=== PATIENT | male | born 1945 | race Caucasian/White ===

== ENCOUNTER → 2017-09-02 09:19 | Outpatient (CLI) | payer MEDICARE, SELFPAY ==
[2017-09-02 12:00] LABS: Absolute Lymphocyte Count 1.55 X10^3/ul (0.83-4.51); Absolute Neutrophil Count 2.9 X10^3/uL (2.0-7.7); Basophil# 0.03 X10^3/uL; Basophil% 0.6 % (0-1); Eosinophil# 0.17 X10^3/uL; Eosinophils% 3.4 % (0-5); Hematocrit 47.9 % (40-54); Hemoglobin 16.3 g/dl (13.0-16.5); Lymphocyte # 1.55 X10^3/ul (4.0); Lymphocyte % 30.9 % (19-41); Mean Corpuscular Hgb 32.3 pg (27.0-32.0); Mean Corpuscular Volume 94.9 fL (80-94); Monocyte# 0.41 X10^3/uL; Monocyte% 8.2 % (0-10); Neutrophil # 2.85 X10^3/uL (2.7-7.7); Neutrophil % 56.9 % (47-70); Platelet Count 227 K/mm3 (150-450); RBC Distribution Width CV 12.6 % (11.6-14.6); RBC Distribution Width SD 42.8 fl (35.1-43.9); Red Blood Count 5.05 M/mm3 (4.6-6.2)
[2017-09-02 12:05] LABS: POSITIVE COUNT NO; POSITIVE DIFFERENTIAL NO; POSITIVE MORPHOLOGY NO
[2017-09-02 12:21] LABS: ALB/GLOB Ratio 1.1 RATIO (0.9-2.4); AST(SGOT) 28 U/L (15-37); Alanine Aminotransfer ALT/SGPT 42 U/L (16-61); Albumin, Serum 3.8 g/dL (3.2-5.0); Alkaline Phosphatase 92 U/L (45-117); Anion Gap 6 (5-15); BUN 14 mg/dL (7-18); BUN/Creat Ratio 14.3 RATIO (10-20); Calcium,Total 8.7 mg/dL (8.5-10.1); Chloride 104 mmol/L (98-107); Cholesterol 142 mg/dL (200); Creatinine, Serum 0.98 mg/dL (0.70-1.30); EST Glomerular Filtration Rate 80 mL/min (>60); Est Glom Filt Rate - Afr Amer 96 mL/min (>60); Globulin 3.6 g/dL (2.2-4.2); Glucose 96 mg/dL (74-106); High Density Lipoprotein 32 mg/dL; Protein, Total 7.4 g/dL (6.4-8.2); Sodium Level 140 mmol/L (136-145); Triglycerides 129 mg/dL; Very Low Density Lipoprotein 26 mg/dL (5-40)
== END ==
PROVIDERS: Family Provider Family Medicine; PCP Family Medicine; Visit Provider Family Medicine
DX: Z00.00 Encounter for general adult medical examination without abnormal findings (principal); E78.5 Hyperlipidemia, unspecified; R53.83 Other fatigue; Z12.5 Encounter for screening for malignant neoplasm of prostate
CPT/HCPCS: 36415; 80053; 80061; 85025

== ENCOUNTER → 2020-09-18 09:46 | Outpatient (CLI) | payer MEDICARE, SELFPAY ==
--- NOTE | 2020-09-18 10:15 | RAD_ITS ---
INDICATION: Posterior scleritis, left eye EXAMINATION/TECHNIQUE: X-RAY - XR Chest 2 Views COMPARISON: None. FINDINGS: The lungs are clear. The cardiomediastinal silhouette is unremarkable. No pleural effusion or pneumothorax. No acute osseous abnormalities. RAD/Chest PA and Lateral IMPRESSION: No acute radiographic abnormalities. Electronically Signed: Christian Benitez MD at 21:09 EDT Tel , Service support ,
[2020-09-18 11:02] LABS: Erythrocyte Sedimentation Rate 11 mm/hr (0-20)
[2020-09-18 11:17] LABS: CRP < 2.90 mg/L (0.0-3.0); Rheumatoid Factor < 10.0 IU/mL (<15)
[2020-09-19 20:07] LABS: Anti-Centromere B Ab <0.2 AI (0.0-0.9); Anti-Chromatin <0.2 AI (0.0-0.9); Anti-Jo <0.2 AI (0.0-0.9); Anti-Scleroderma-70 AB <0.2 AI (0.0-0.9); Anti-ribosomal P Antibodies <0.2 AI (0.0-0.9); Cytoplasmic Ab (C-ANCA) <1:20 titer (Neg:<1:20); RNP Ab 0.3 AI (0.0-0.9); SJOGREN'S Anti-SS-A test < 0.2 AI (0.0-0.9); SJOGREN'S Anti-SS-B test < 0.2 AI (0.0-0.9); Smith Ab <0.2 AI (0.0-0.9); Smith/RNP Ab <0.2 AI (0.0-0.9)
[2020-09-20 12:36] LABS: Angiotensin Convert Enzyme 32 U/L (14-82); Perinuclear Ab (P-ANCA) <1:20 titer (Neg:<1:20)
[2020-09-20 12:37] LABS: Anti-dsDNA Ab <1 IU/mL (0-9)
== END ==
PROVIDERS: PCP Family Medicine; Referring Provider Ophthalmology; Visit Provider Ophthalmology
DX: H15.03 Posterior scleritis (principal)
CPT/HCPCS: 36415; 71046; 82164; 85652; 86038; 86140; 86225; 86235; 86256; 86431

== ENCOUNTER → 2024-12-02 | Outpatient (CLI) | payer MEDICARE, SELFPAY ==
[2024-12-02 15:59] LABS: Hematocrit 38.9 % (40-54); Hemoglobin 12.4 g/dL (13.0-16.5); Immature Granulocytes Count 0.020 X10^3/uL (0.0-0.0); Mean Corp Hgb Conc 31.9 g/dL (32-36); Mean Corpuscular Volume 89.6 fL (80-94); Mean Platelet Vol. 10.4 fl (6.2-12.0); NRBC Flagged by Analyzer 0 % (0-5); Platelet Count 391 K/mm3 (150-450); RBC Distribution Width CV 13.8 % (11.6-14.6); RBC Distribution Width SD 45.2 fl (35.1-43.9); Red Blood Count 4.34 M/mm3 (4.6-6.2); White Blood Count 7.8 K/mm3 (4.4-11.0)
[2024-12-02 16:20] LABS: AST(SGOT) 20 U/L (<=37); Alanine Aminotransfer ALT/SGPT 15 U/L (<=46); Albumin, Serum 4.1 g/dL (3.4-4.8); Alkaline Phosphatase 131 U/L (40-129); Anion Gap 16 (5-15); BUN 29 mg/dL (4-19); BUN/Creat Ratio 18.3 RATIO (10-20); CRP 87.20 mg/L (0.0-3.0); Calcium,Total 10.7 mg/dL (7.6-11.0); Carbon Dioxide 24.4 mmol/L (21.0-32.0); Chloride 98 mmol/L (98-108); Globulin 4.3 g/dL (2.2-4.2); Glucose 97 mg/dL (70-99); Potassium 4.7 mmol/L (3.3-5.1)
[2024-12-02 16:25] LABS: PSA,Total - Annual Screen 3.39 ng/mL (0.02-4.00)
[2024-12-02 17:11] LABS: Color, Urine Straw (Yellow); Glucose, Dipstick Normal (Normal); Ketone-Dipstick 5 mg/dl (Negative); Leukocyte Esterase-Dipstick Negative /ul (Negative); Nitrite-Dipstick Negative (Negative); Occult Blood-Urine Negative /ul (Negative); Protein-Dipstick 15 mg/dl (Negative); Specific Gravity, Urine 1.020 (1.002-1.030); Urine Bilirubin Dipstick Negative (Negative)
[2024-12-09 15:08] LABS: Albumin 3.5 g/dL (2.9-4.4); Gamma Globulin 1.5 g/dL (0.4-1.8); Immunoglobulin A 275 mg/dL (61-437); Immunoglobulin G 1476 mg/dL (603-1613); Immunoglobulin M 70 mg/dL (15-143); PROEL- TOTAL PROTEIN 7.8 g/dL (6.0-8.5)
== END | disposition home or self-care (01) ==
LOC: BFHLAB 11:38
PROVIDERS: PCP Family Medicine; Visit Provider Family Medicine
DX: H57.89 Other specified disorders of eye and adnexa (principal); N18.32 Chronic kidney disease, stage 3b; Z12.5 Encounter for screening for malignant neoplasm of prostate; R63.4 Abnormal weight loss; R10.9 Unspecified abdominal pain; R80.9 Proteinuria, unspecified; R77.1 Abnormality of globulin
CPT/HCPCS: 36415; 80053; 81002; 82784; 84153; 84165; 84443; 85025; 85652; 86140; 86334; G0103

== ENCOUNTER → 2024-12-27 | Outpatient (CLI) | payer MEDICARE, SELFPAY ==
[2024-12-27 12:20] LABS: Platelet Count 358 K/mm3 (150-450)
[2024-12-27 12:30] LABS: Prothrombin Time (Protime)PT. 14.4 SECONDS (11.7-14.9)
[2024-12-27 12:31] LABS: Partial Thromboplast Time 38.7 Seconds (24.1-36.2)
[2024-12-27 12:53] LABS: LDH 272 U/L (87-241)
--- OUTSIDE RECORDS SUMMARY | 2024-12-27 22:08 | XMS RPT_ITS | CCD ---
Author Organization [facility] Care Team Providers Care Machine [employer] Engraver Name Role Phone DR MICHELET HERNANDEZ DO Primary Care Physician [phone] David JOSE, Dr. Goncalves Primary Care Provider [phone] David JOSE, Dr. Goncalves Attending Provider Leslie Ashley Attending Unavailable David, Michelet Referring Unavailable David, Michelet Primary Care Unavailable David, Michelet Attending Unavailable David, Michelet Primary Care Unavailable David, Michelet Attending Unavailable David, Michelet Primary Care Unavailable DAVID JOSE, DR MICHELET Parker Primary Care Unavailab walter GORE MD, DR FLORES Attending Unavailab le DAVID JOSE, DR MICHELET Parker Attending Unavailab walter HERNANDEZ DO, DR MICHELET Parker Primary Care Unavailab walter Hernandez DO, Dr. Goncalves Referring Provider Dr. Jason Wen DO Attending Provider [phone] Behzad JOSE, Dr. Gomez Referring Provider [phone] Medications Current Medications Medication Drug Class(es) Dates Sig (Normalized) Sig (Original) Vit A,C,Q-P8-Ltqy-Lut-Mi n-Glut 1000 unit-300mg -100 unit-2 mg tablet (1 source) Start: 12-27-2024 Vit A,C,Z-D8-Nkdw-Lut-M in-Glut 1000 unit-300mg -100 unit-2 mg tablet Active {tbl} PO December 27, 2024 12:00am Completed/Discontinued Medications Medication Drug Class(es) Dates Sig (Normalized) Sig (Original) Chlorhexidine Gluconate (Peridex) 0.12 % mouthwash (2 sources) Start: 06-05-2024 End: 12-27-2024 Chlorhexidine Gluconate (Peridex) 0.12 % mouthwash Discontinued 15 mL BUCCAL TWICE A DAY 300 0 June 05, 2024 1:00am December 27, 2024 10:39am Start: 06-05-2024 Chlorhexidine Gluconate (Peridex) 0.12 % mouthwash Active 15 mL BUCCAL TWICE A DAY 300 0 June 05, 2024 1:00am Problems Problem Classification Problem Date Documented Da te Episodic/Chronic Chronic kidney disease (1 source) Chronic kidney disease; Translations: [Chronic kidney disease, stage 3b] Onset: 12-04-2024 Genitourinary symptoms and ill-defined conditions (1 source) Proteinuria, unspecified; Translations: [Proteinuria, unspecified] Onset: 12-04-2024 Episodic Other eye disorders (1 source) Other specified disorders of eye and adnexa; Translations: [Other specified disorders of eye and adnexa] Onset: 12-09-2024 Episodic Other hematologic conditions (1 source) Abnormality of globulin; Translations: [Abnormality of globulin] Onset: 12-04-2024 Episodic Other lower respiratory disease (3 sources) Lung mass; Translations: [Other nonspecific abnormal finding of lung field] Episodic Other upper respiratory infections (5 sources) Viral pharyngitis; Translations: [Acute pharyngitis due to other specified organisms] Onset: 06-05-2024 06-05-2024 Episodic Pleurisy; pneumothorax; pulmonary collapse (2 sources) Pleural effusion; Translations: [Pleural effusion, not elsewhere classified] 12-27-2024 Episodic Retinal detachments; defects; vascular occlusion; and retinopathy (1 source) Degenerative disorder of macula ; Translations: [Unspecified macular degeneration] 12-27-2024 Chronic Syncope (1 source) Syncope and collapse; Translations: [Syncope and collapse] Onset: 07-23-2024 Episodic Unclassified (2 sources) R91.8 - Other nonspecific abnormal finding of lung field Results Test Name Value Interpretation Reference Range Facility CT THORAX W/ CONTRASTon 12-01 CT THORAX W/ CONTRAST ORIGINAL EXAMINATION: CT OF THE CHEST WITH CONTRAST 12/21/2024 2:29 pm TECHNIQUE: CT of the chest was performed with the administration of intravenous contrast. Multiplanar reformatted images are provided for review. Automated exposure control, iterative reconstruction, and/or weight based adjustment of the mA/kV was utilized to reduce the radiation dose to as low as reasonably achievable. COMPARISON: None. HISTORY: ORDERING SYSTEM PROVIDED HISTORY: Reason for Exam: ABNORMAL WEIGHT LOSS FINDINGS: Mild degenerative changes are noted in the spine. No other osseous abnormality identified. Moderate left pleural effusion is evident, with areas of pleural thickening at the posterior aspect of the lower lobes. Additionally, there is very prominent abnormal pre-vascular mediastinal soft tissue, extending to the adjacent medial and anterior left pleura. These findings are very masslike and nodular with areas of central low density which may be cystic or necrotic. There is presumably involvement of the medial aspect of the left anterior chest wall as well, with disease abutting several ribs. The bulk of the abnormality is identified on the left, between the main and left pulmonary arteries. This area of tumor is on the order of 6.3 x 4.5 cm in size. The more central or rightward pre-vascular tumor measures up to 3.8 cm. Areas of tumor are applied to the left superior pulmonary vein and there is some infiltrative tumor extending to the region of the upper left hilum. No other unusual mediastinal soft tissue seen. Lateral right lower lobe 5 mm pulmonary nodule noted. No pulmonary infiltrates are otherwise identified. No additional contributory finding peer IMPRESSION: 1. Abnormal mediastinal and pleural soft tissue as discussed above, most compatible with malignancy. 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 2. Moderate left pleural effusion. 3. Lateral right lower lobe 5 mm pulmonary nodule. This is indeterminate. IMPORTANT: PHYSICIAN, ATTEND TO THIS REPORT RENAE!!! Interpreted by: Elia Lemus MD Preliminary Report By: Elia Lemus MD Electronically signed By Elia Lemus MD Dictated Date: 12/23/2024 8:38:28 AM Prelim Date: 12/23/2024 8:44:38 AM Sign Date: 12/23/2024 8:44:38 AM [facility]ing [facility]/CONTRAST on 12-22-2024 CT ABDOMEN/PELVIS W/CONTRAST ORIGINAL EXAMINATION: CT OF THE ABDOMEN AND PELVIS WITH CONTRAST12/21/2024 2:29 pm TECHNIQUE: CT of the abdomen and pelvis was performed with the administration of intravenous contrast. Multiplanar reformatted images are provided for review. Automated exposure control, iterative reconstruction, and/or weight based adjustment of the mA/kV was utilized to reduce the radiation dose to as low as reasonably achievable. COMPARISON: None HISTORY: ORDERING SYSTEM PROVIDED HISTORY: Reason for Exam: ABNORMAL WEIGHT LOSS FINDINGS: Bones: No acute bony abnormality. Degenerative changes of the spine. Lower Thorax: CT of the chest from the same day is dictated separately. Solid Organs: The liver, spleen, pancreas, gallbladder, and adrenal glands are unremarkable. Collecting System: Delayed right nephrogram. Mild right pelvicaliectasis and dilation of the right ureter secondary to soft tissue lesion in the right pelvis. No urolithiasis is identified. Pelvis: The bladder is unremarkable. Mildly enlarged prostate with dystrophic calcifications. There is a 5.0 x 3.5 cm irregular soft tissue mass anterior to the inferior right piriformis muscle (4; 83). This constricts the distal right ureter with mild surrounding haziness and fat stranding. Mild hyperdense appearance of the distal right ureter is also visualized. GI Tract: The stomach and small bowel are unremarkable. Scattered colonic diverticulosis with no evidence of diverticulitis. The appendix is unremarkable. Vasculature: The vena cava and portal system demonstrates no acute abnormality. Mildly atherosclerotic nonaneurysmal aorta. Lymph Nodes, Mesentery, and Peritoneum: No definite pathologically enlarged lymph nodes are identified. There is a 1.9 cm soft tissue deposit with calcifications in the right mesentery (4; 61). Additional small calcifications in the central mesentery. Additional soft tissue deposits anterior to the spleen and along the omentum. No free intraperitoneal fluid or gas is identified. Superficial Soft Tissues: Small fat containing right inguinal hernia. IMPRESSION: Delayed right nephrogram with mild hydroureteronephrosis due to a 5.0 cm soft tissue mass anterior to the right piriformis muscle causing mass effect/constriction of the distal right ureter. This is concerning for malignancy. Hyperdense appearance of the right distal ureter is indeterminate. Extension of the mass into the ureter is not excluded. Mesenteric and omental soft tissue deposits are compatible with peritoneal carcinomatosis. Diverticulosis with no evidence of diverticulitis. I have personally reviewed the images of this examination and agree with the resident's findings and interpretation. Interpreted by: Elia Lemus MD Preliminary Report By: Amanda Espana Electronically signed By Elia Lemus MD Dictated Date: 12/22/2024 8:28:13 AM Prelim Date: 12/22/2024 10:03:43 AM Sign Date: 12/22/2024 10:03:43 AM Ordering Provider: MICHELET HERNANDEZ [facility] RADHA + Protein Tesha Nicolas 12-09-2024 Albumin [Mass/Vol] 3.5 g/dL Normal 2.9-4.4 [facility] Comment on above: Order Comment: ADD ON PLEASE-SWRIGHT N Performed By: #### L 500.4050, L501.9910, L400.2010, L3100.3425, L501.9520, L100.0100, L101.9900, L501.6710 #### [facility] [address] [place], [place], [id number] [phone] Albumin/Globulin [Mass ratio] 0.9 {ratio} Normal 0.7-1.7 [facility] Comment on above: Order Comment: ADD ON PLEASE-SWRIGHT N Performed By: #### L 500.4050, L501.9910, L4, L3100.3425, L501.9520, L100.0100, L101.9900, L501.6710 #### [facility] [address] [place], [place], [id number] [phone] [id number] 0.4 g/dL Normal 0.0-0.4 [facility] Comment on above: Order Comment: ADD ON PLEASE-SWRIGHT N Performed By: #### L 500.4050, L501.9910, L4.2010, L3100.3425, L501.9520, L100.0100, L101.9900, L501.6710 #### [facility] [address] [place], [place], [id number] [phone] [id number] 1.2 g/dL High 0.4-1.0 [facility] Comment on above: Order Comment: ADD ON PLEASE-SWRIGHT N Performed By: #### L 500.4050, L501.9910, L4.2010, L3100.3425, L501.9520, L100.0100, L101.9900, L501.6710 #### [facility] [address] [place], [address] BETA GLOBULIN 1.2 g/dL Normal 0.7-1.3 [facility] Comment on above: Order Comment: ADD ON PLEASE-SWRIGHT N Performed By: #### L 500.4050, L501.9910, L400.2010, L3100.3425, L501.9520, L100.0100, L101.9900, L501.6710 #### [facility] [address] [place], [address] GAMMA GLOBULIN 1.5 g/dL Normal 0.4-1.8 [facility] Comment on above: Order Comment: ADD ON PLEASE-SWRIGHT N Performed By: #### L 500.4050, L501.9910, L4.2010, L3100.3425, L501.9520, L100.0100, L101.9900, L501.6710 #### [facility] [address] [place], [address] Globulin (S) [Mass/Vol] 4.3 g/dL Abnormal 2.2-3.9 [facility] Comment on above: Order Comment: ADD ON PLEASE-SWRIGHT N Performed By: #### L 500.4050, L501.9910, L4.2010, L3100.3425, L501.9520, L100.0100, L101.9900, L501.6710 #### [facility] [address] [place], [address] RADHA RESULT,S Comment Abnormal . [facility] Comment on above: Order Comment: ADD ON PLEASE-SWRIGHT N Result Comment: Immu nofixation shows IgG monoclonal protein with lambda light chain specificity. Performed By: #### L 500.4050, L501.9910, L400.2010, L3100.3425, L501.9520, L100.0100, L101.9900, L501.6710 #### [facility] [address] [place], [address] IMMUNOGLOB A QN 275 mg/dL Normal 61-437 [facility] Comment on above: Order Comment: ADD ON PLEASE-SWRIGHT N Performed By: #### L 500.4050, L501.9910, L400.2010, L3100.3425, L501.9520, L100.0100, L101.9900, L501.6710 #### [facility] [address] [place], [address] IMMUNOGLOB G QN 1476 mg/dL Normal 603-1613 [facility] Comment on above: Order Comment: ADD ON PLEASE-SWRIGHT N Performed By: #### L 500.4050, L501.9910, L400.2010, L3100.3425, L501.9520, L100.0100, L101.9900, L501.6710 #### [facility] [address] [place], [address] IMMUNOGLOB M QN 70 mg/dL Normal 15-143 [facility] Comment on above: Order Comment: ADD ON PLEASE-SWRIGHT N Performed By: #### L 500.4050, L501.9910, L400.2010, L3100.3425, L501.9520, L100.0100, L101.9900, L501.6710 #### [facility] [address] [place], [address] M-Kvng 0.6 g/dL Abnormal Not Observed [facility] Comment on above: Order Comment: ADD ON PLEASE-SWRIGHT N Performed By: #### L 500.4050, L501.9910, L400.2010, L3100.3425, L501.9520, L100.0100, L101.9900, L501.6710 #### [facility] [address] [place], [address] NOTE: Comment Normal . [facility] Comment on above: Order Comment: ADD ON PLEASE-SWRIGHT N Result Comment: Prot ein electrophoresis scan will follow via computer, mail, or heel seat pounder delivery. Performed at: [address] [id number] [employer]: Torito Green PhD, Phone: [phone] Performed By: #### L 500.4050, L501.9910, L400.2010, L3100.3425, L501.9520, L100.0100, L101.9900, L501.6710 #### [facility] [address] [place], [address] Protein [Mass/Vol] 7.8 g/dL Normal 6.0-8.5 [facility] Comment on above: Order Comment: ADD ON PLEASE-NITINHT N Performed By: #### L 500.4050, L501.9910, L400.2010, L3100.3425, L501.9520, L100.0100, L101.9900, L501.6710 #### [facility] [address] [place], [address] Absolute lymphocyte countOrd ered By: Michelet Hernandez on 12-02-2024 Lymphocytes Auto (Unsp spec) [#/Vol] 0.84 10*3/uL 0.83-4.51 [facility] Absolute neutrophil countOrd ered By: Michelet Hernandez on 12-02-2024 Neutrophils (Bld) [#/Vol] 6.0 10*3/uL 2.0-7.7 [facility] Albumin Elph [Mass/Vol]Order ed By: Michelet Hernandez on 12-02-2024 Albumin [Mass/Vol] 3.5 g/dL 2.9-4.4 [facility] Anion gap in Serum or Plasma Ordered By: Michelet Hernandez on 12-02-2024 Anion gap [Moles/Vol] 16 mmol/L High 5-15 [facility] Automated lymphocyte count a s percentage of total leukocytesOrdered By: Michelet Hernandez on 12-02-2024 Lymphocytes/100 WBC Auto (Unsp spec) 10.8 % Low 19-41 [facility] BUN/creatinine ratioOrdered By: Michelet Hernandez on 12-02-2024 Urea nitrogen/Creatinine [Mass ratio] 18.3 mg/mg 10-20 [facility] Basophil percentageOrdered B y: Michelet Hernandez on 12-02-2024 Basophils/100 WBC (Bld) 0.6 % 0-1 [facility] Bilirubin Test strip Ql (U)O rdered By: Michelet Hernandez on 12-02-2024 Bilirubin Ql (U) Negative Negative [facility] Bilirubin, totalOrdered By: Michelet Hernandez on 12-02-2024 Bilirubin [Mass/Vol] 0.43 mg/dL 0.00-1.30 [facility] CBC W/Diff, Automatedon Absolute Lymph 0.84 X10 3/uL Normal 0.83-4.51 [facility] Comment on above: Performed By: #### L 500.4050, L501.9910, L4.2010, L3100.3425, L501.9520, L100.0100, L101.9900, L501.6710 #### [facility] [address] [place], [address] Absolute Neut 6.0 X10 3/uL Normal 2.0-7.7 [facility] Comment on above: Performed By: #### L 500.4050, L501.9910, L4.2010, L3100.3425, L501.9520, L100.0100, L101.9900, L501.6710 #### [facility] [address] [place], [address] Basophils/100 WBC (Bld) 0.6 % Normal 0-1 [facility] Comment on above: Performed By: #### L 500.4050, L501.9910, L4.2010, L3100.3425, L501.9520, L100.0100, L101.9900, L501.6710 #### [facility] [address] [place], [address] Eosinophils/100 WBC (Bld) 1.3 % Normal 0-5 [facility] Comment on above: Performed By: #### L 500.4050, L501.9910, L400.2010, L3100.3425, L501.9520, L100.0100, L101.9900, L501.6710 #### [facility] [address] [place], [address] Erythrocyte distribution width (RBC) [Ratio] 13.8 % Normal 11.6-14.6 [facility] Comment on above: Performed By: #### L 500.4050, L501.9910, L400.2010, L3100.3425, L501.9520, L100.0100, L101.9900, L501.6710 #### [facility] [address] [facility] [place], [address] Hematocrit (Bld) [Volume fraction] 38.9 % Low 40-54 [facility] Comment on above: Performed By: #### L 500.4050, L501.9910, L4.2010, L3100.3425, L501.9520, L100.0100, L101.9900, L501.6710 #### [facility] [address] [place], [address] Hemoglobin (Bld) [Mass/Vol] 12.4 g/dL Low 13.0-16.5 [facility] Comment on above: Performed By: #### L 500.4050, L501.9910, L4.2010, L3100.3425, L501.9520, L100.0100, L101.9900, L501.6710 #### [facility] [address] [facility] [place], [address] IG% 0.300 Normal 0.0-0.9 [facility] Comment on above: Result Comment: IG% - Immature Granulocytes (promyelocytes, myelocytes and metamyelocytes) > 1% indicates that a LEFT SHIFT is Present. Performed By: #### L 500.4050, L501.9910, L400.2010, L3100.3425, L501.9520, L100.0100, L101.9900, L501.6710 #### [facility] [address] [place], [address] Lymphocytes/100 WBC (Bld) 10.8 % Low 19-41 [facility] Comment on above: Performed By: #### L 500.4050, L501.9910, L400.2010, L3100.3425, L501.9520, L100.0100, L101.9900, L501.6710 #### [facility] [address] [place], [address] MCH (RBC) [Entitic mass] 28.6 pg Normal 27.0-32.0 [facility] Comment on above: Performed By: #### L 500.4050, L501.9910, L400.2010, L3100.3425, L501.9520, L100.0100, L101.9900, L501.6710 #### [facility] [address] [place], [address] MCHC (RBC) [Mass/Vol] 31.9 g/dL Low 32-36 [facility] Comment on above: Performed By: #### L 500.4050, L501.9910, L4.2010, L3100.3425, L501.9520, L100.0100, L101.9900, L501.6710 #### [facility] [address] [place], [address] MCV (RBC) [Entitic vol] 89.6 fL Normal 80-94 [facility] Comment on above: Performed By: #### L 500.4050, L501.9910, L4.2010, L3100.3425, L501.9520, L100.0100, L101.9900, L501.6710 #### [facility] [address] [place], [address] Monocytes/100 WBC (Bld) 10.0 % Normal 0-10 [facility] Comment on above: Performed By: #### L 500.4050, L501.9910, L400.2010, L3100.3425, L501.9520, L100.0100, L101.9900, L501.6710 #### [facility] [address] [place], [address] Neutrophils/100 WBC (Bld) 77.0 % High 47-70 [facility] Comment on above: Performed By: #### L 500.4050, L501.9910, L400.2010, L3100.3425, L501.9520, L100.0100, L101.9900, L501.6710 #### [facility] [address] [place], [address] Nucleated RBC (Bld) [#/Vol] 0 10*3/uL Normal 0-5 [facility] Comment on above: Performed By: #### L 500.4050, L501.9910, L400.2010, L3100.3425, L501.9520, L100.0100, L101.9900, L501.6710 #### [facility] [address] [place], [address] Platelet mean volume (Bld) [Entitic vol] 10.4 fL Normal 6.2-12.0 [facility] Comment on above: Performed By: #### L 500.4050, L501.9910, L400.2010, L3100.3425, L501.9520, L100.0100, L101.9900, L501.6710 #### [facility] [address] [place], [address] Platelets (Bld) [#/Vol] 391 10*3/uL Normal 150-450 [facility] Comment on above: Performed By: #### L 500.4050, L501.9910, L400.2010, L3100.3425, L501.9520, L100.0100, L101.9900, L501.6710 #### [facility] [address] [place], [address] RBC (Bld) [#/Vol] 4.34 10*6/uL Low 4.6-6.2 [facility] Comment on above: Performed By: #### L 500.4050, L501.9910, L4.2010, L3100.3425, L501.9520, L100.0100, L101.9900, L501.6710 #### [facility] [address] [place], [address] RDW SD 45.2 fl High 35.1-43.9 [facility] Comment on above: Performed By: #### L 500.4050, L501.9910, L4.2010, L3100.3425, L501.9520, L100.0100, L101.9900, L501.6710 #### [facility] [address] [place], [address] WBC (Bld) [#/Vol] 7.8 10*3/uL Normal 4.4-11.0 [facility] Comment on above: Performed By: #### L 500.4050, L501.9910, L4, L3100.3425, L501.9520, L100.0100, L101.9900, L501.6710 #### [facility] [address] [place], [address] CRPon 12-02-2024 C-REACTIVE PROT 87.20 mg/L High 0.0-3.0 [facility] Comment on above: Performed By: #### L 500.4050, L501.9910, L4, L3100.3425, L501.9520, L100.0100, L101.9900, L501.6710 #### [facility] [address] [place], [address] Carbon dioxide, total [Moles /volume] in Central venous bloodOrdered By: Michelet Hernandez on 12-02-2024 CO2 [Moles/Vol] 24.4 mmol/L 21.0-32.0 [facility] Chloride assayOrdered By: Carin Hernandez on 12-02-2024 Chloride [Moles/Vol] 98 mmol/L 98-108 [facility] Comprehensive Metabolic Prof ilon 12-02-2024 Albumin [Mass/Vol] 4.1 g/dL Normal 3.4-4.8 [facility] Comment on above: Performed By: #### L 500.4050, L501.9910, L4.2010, L3100.3425, L501.9520, L100.0100, L101.9900, L501.6710 #### [facility] [address] [place], [address] Albumin/Globulin [Mass ratio] 1.0 {ratio} Normal 0.9-2.4 [facility] Comment on above: Performed By: #### L 500.4050, L501.9910, L400.2010, L3100.3425, L501.9520, L100.0100, L101.9900, L501.6710 #### [facility] [address] [place], [address] ALK PHOS 131 U/L High 40-129 [facility] Comment on above: Performed By: #### L 500.4050, L501.9910, L400.2010, L3100.3425, L501.9520, L100.0100, L101.9900, L501.6710 #### [facility] [address] [place], [address] ALT [Catalytic activity/Vol] 15 U/L Normal <=46 [facility] Comment on above: Performed By: #### L 500.4050, L501.9910, L400.2010, L3100.3425, L501.9520, L100.0100, L101.9900, L501.6710 #### [facility] [address] [place], [address] AST [Catalytic activity/Vol] 20 U/L Normal <=37 [facility] Comment on above: Performed By: #### L 500.4050, L501.9910, L400.2010, L3100.3425, L501.9520, L100.0100, L101.9900, L501.6710 #### [facility] [address] [place], [address] Bilirubin [Mass/Vol] 0.43 mg/dL Normal 0.00-1.30 [facility] Comment on above: Performed By: #### L 500.4050, L501.9910, L4.2010, L3100.3425, L501.9520, L100.0100, L101.9900, L501.6710 #### [facility] [address] [place], [address] BUN/CRE 18.3 RATIO Normal 10-20 [facility] Comment on above: Performed By: #### L 500.4050, L501.9910, L4.2010, L3100.3425, L501.9520, L100.0100, L101.9900, L501.6710 #### [facility] [address] [place], [address] Calcium [Mass/Vol] 10.7 mg/dL Normal 7.6-11.0 [facility] Comment on above: Performed By: #### L 500.4050, L501.9910, L4, L3100.3425, L501.9520, L100.0100, L101.9900, L501.6710 #### [facility] [address] [place], [address] Chloride [Moles/Vol] 98 mmol/L Normal 98-108 [facility] Comment on above: Performed By: #### L 500.4050, L501.9910, L400.2010, L3100.3425, L501.9520, L100.0100, L101.9900, L501.6710 #### [facility] [address] [place], [address] CO2 [Moles/Vol] 24.4 mmol/L Normal 21.0-32.0 [facility] Comment on above: Performed By: #### L 500.4050, L501.9910, L400.2010, L3100.3425, L501.9520, L100.0100, L101.9900, L501.6710 #### [facility] [address] [place], [address] Creatinine [Mass/Vol] 1.60 mg/dL High 0.70-1.20 [facility] Comment on above: Performed By: #### L 500.4050, L501.9910, L400.2010, L3100.3425, L501.9520, L100.0100, L101.9900, L501.6710 #### [facility] [address] [place], [address] GAP 16 High 5-15 [facility] Comment on above: Performed By: #### L 500.4050, L501.9910, L400.2010, L3100.3425, L501.9520, L100.0100, L101.9900, L501.6710 #### [facility] [address] [place], [address] GFR/1.73 sq M.predicted among non-blacks MDRD (S/P/Bld) [Vol rate/Area] 43 mL/min/{1.73_m2} Low >60 [facility] Comment on above: Result Comment: mL/m in/1.73m2 CKD-EPI Creatinine Equation (2020) Performed By: #### L 500.4050, L501.9910, L400.2010, L3100.3425, L501.9520, L100.0100, L101.9900, L501.6710 #### [facility] [address] [place], [address] Globulin (S) [Mass/Vol] 4.3 g/dL High 2.2-4.[address] [facility] Comment on above: Performed By: #### L 500.4050, L501.9910, L400.2010, L3100.3425, L501.9520, L100.0100, L101.9900, L501.6710 #### [facility] [address] [place], [address] Glucose [Mass/Vol] 97 mg/dL Normal 70-99 [facility] Comment on above: Performed By: #### L 500.4050, L501.9910, L400.2010, L3100.3425, L501.9520, L100.0100, L101.9900, L501.6710 #### [facility] [address] [place], [address] Potassium [Moles/Vol] 4.7 mmol/L Normal 3.3-5.1 [facility] Comment on above: Performed By: #### L 500.4050, L501.9910, L400.2010, L3100.3425, L501.9520, L100.0100, L101.9900, L501.6710 #### [facility] [address] [place], [address] Sodium [Moles/Vol] 139 mmol/L Normal 133-145 [facility] Comment on above: Performed By: #### L 500.4050, L501.9910, L400.2010, L3100.3425, L501.9520, L100.0100, L101.9900, L501.6710 #### [facility] [address] [place], [address] T PROT 8.4 g/dL Normal 5.9-8.4 [facility] Comment on above: Performed By: #### L 500.4050, L501.9910, L400.2010, L3100.3425, L501.9520, L100.0100, L101.9900, L501.6710 #### [facility] [address] [place], [address] Urea nitrogen [Mass/Vol] 29 mg/dL High 4-19 [facility] Comment on above: Performed By: #### L 500.4050, L501.9910, L4.2010, L3100.3425, L501.9520, L100.0100, L101.9900, L501.6710 #### [facility] [address] [place], [address] Eosinophil percentageOrdered By: Michelet Hernandez on 12-02-2024 Eosinophils/100 WBC (Bld) 1.3 % 0-5 [facility] Erythrocyte Sed Rateon 12-02 SED RATE 42 mm/hr High 0-20 [facility] Comment on above: Performed By: #### L 500.4050, L501.9910, L4.2010, L3100.3425, L501.9520, L100.0100, L101.9900, L501.6710 #### [facility] [address] [place], [address] Erythrocyte distribution wid th ratioOrdered By: Michelet Hernandez on 12-02-2024 Erythrocyte distribution width (RBC) [Ratio] 13.8 % 11.6-14.6 [facility] Erythrocyte distribution wid th standard deviationOrdered By: Michelet Hernandez on 12-02-2024 Erythrocyte distribution width (RBC) [Ratio] 45.2 fl High 35.1-43.9 [facility] Erythrocyte sedimentation ra teOrdered By: Michelet Hernandez on 12-02-2024 ESR (Bld) [Velocity] 42 mm/h High 0-20 [facility] Glomerular filtration rate ( GFR) estimation/1.73 sq m using serum, plasma, or whole bOrdered By: Michelet Hernandez on 12-02-2024 GFR/1.73 sq M.predicted among non-blacks MDRD (S/P/Bld) [Vol rate/Area] 43 mL/min/{1.73_m2} Low >60 [facility] Comment on above: mL/min/1.73m2 CKD-EP I Creatinine Equation (2020) Hematocrit Auto (Bld) [Volum e fraction]Ordered By: Michelet Hernandez on 12-02-2024 Hematocrit (Bld) [Volume fraction] 38.9 % Low 40-54 [facility] Hemoglobin measurementOrdere d By: Michelet Hernandez on 12-02-2024 Hemoglobin (Bld) [Mass/Vol] 12.4 g/dL Low 13.0-16.5 [facility] Immature granulocytes/100 WB C Auto (Bld)Ordered By: Michelet Hernandez on 12-02-2024 Immature granulocytes/100 WBC (Bld) 0.300 % 0.0-0.9 [facility] Comment on above: IG% - Immature Granu locytes (promyelocytes, myelocytes and metamyelocytes) > 1% indicates that a LEFT SHIFT is Present. Interpretation of serum or p lasma protein pattern by immunofixation (narrative resultOrdered By: Michelet Hernandez on 12-02-2024 Protein Fractions Immunofixation Ko [Interp] 0.6 g/dL High Not Observed [facility] Ketones Test strip Ql (U)Ord ered By: Michelet Hernandez on 12-02-2024 Ketones Ql (U) 5 mg/dl High Negative [facility] - Chemistry and C hemistry - challengeOrdered By: Michelet Hernandez on 12-02-2024 AST [Catalytic activity/Vol] 20 U/L <38 [facility] MCV (mean corpuscular volume ) determinationOrdered By: Michelet Hernandez on 12-02-2024 MCV (RBC) [Entitic vol] 89.6 fL 80-94 [facility] Mean corpuscular hemoglobin (MCH) determinationOrdered By: Michelet Hernandez on 12-02-2024 MCH (RBC) [Entitic mass] 28.6 pg 27.0-32.0 [facility] Mean corpuscular hemoglobin concentration (MCHC) determinationOrdered By: Michelet Hernandez on 12-02-2024 MCHC (RBC) [Mass/Vol] 31.9 g/dL Low 32-36 [facility] Mean platelet volume determi nationOrdered By: Michelet Hernandez on 12-02-2024 Platelet mean volume (Bld) [Entitic vol] 10.4 fL 6.2-12.0 [facility] Monocyte percentageOrdered B y: Michelet Hernandez on 12-02-2024 Monocytes/100 WBC (Bld) 10.0 % 0-10 [facility] Neutrophil percentageOrdered By: Michelet Hernandez on 12-02-2024 Neutrophils/100 WBC (Bld) 77.0 % High 47-70 [facility] No Panel InformationOrdered By: Michelet Hernandez on 12-02-2024 Addendum Document Comment . [facility] Comment on above: Protein electrophore sis scan will follow via computer,mail, or heel seat pounder delivery.Performed at: [address] [id number] Director: Torito Green PhD, Phone: [phone] Nucleated red blood cell per centageOrdered By: Michelet Hernandez on 12-02-2024 Nucleated RBC/100 WBC (Bld) [Ratio] 0 % 0-5 [facility] PSA,Total - Annual Screenon 12-02-2024 PSA,TOT SCREEN 3.39 ng/mL Normal 0.02-4.00 [facility] Comment on above: Result Comment: This test was performed using the [employer] tPSA method. Measured values of a patient??sample can vary depending on the testing procedure used. PSA values determined on patient samples by different testing procedures cannot be used interchangeably. If there is a change in PSA assays while monitoring therapy, sequential testing should be performed to confirm baseline values. Performed By: #### L 500.4050, L501.9910, L400.2010, L3100.3425, L501.9520, L100.0100, L101.9900, L501.6710 #### [facility] [address] [place], [address] Platelet countOrdered By: Carin Hernandez on 12-02-2024 Platelets (Bld) [#/Vol] 391 10*3/uL 150-450 [facility] Potassium measurement (mass/ volume)Ordered By: Michelet Hernandez on 12-02-2024 Potassium (Unsp spec) [Mass/Vol] 4.7 mmol/L 3.3-5.1 [facility] Protein Test strip Ql (U)Ord ered By: Michelet Hernandez on 12-02-2024 Protein Ql (U) 15 mg/dl High Negative [facility] RBC Auto (Bld) [#/Vol]Ordere d By: Michelet Hernandez on 12-02-2024 RBC (Bld) [#/Vol] 4.34 10*6/uL Low 4.6-6.2 [facility] Serum creatinine measurement (mass/volume)Ordered By: Michelet Hernandez on 12-02-2024 Creatinine [Mass/Vol] 1.60 mg/dL High 0.70-1.20 [facility] Serum globulin measurement ( mass/volume)Ordered By: Michelet Hernandez on 12-02-2024 Globulin (S) [Mass/Vol] 4.3 g/dL High 2.2-3.9 [facility] Serum glucose measurement (m ass/volume)Ordered By: Michelet Hernandez on 12-02-2024 Glucose [Mass/Vol] 97 mg/dL 70-99 [facility] Serum or plasma C reactive p rotein measurement (mass/volume)Ordered By: Michelet Hernandez on 12-02-2024 CRP [Mass/Vol] 87.20 mg/L High 0.0-3.0 [facility] Serum or plasma IgA measurem ent (mass/volume)Ordered By: Michelet Hernandez on 12-02-2024 IgA [Mass/Vol] 275 mg/dL 61-437 [facility] Serum or plasma IgG measurem ent (mass/volume)Ordered By: Michelet Hernandez on 12-02-2024 IgG [Mass/Vol] 1476 mg/dL 603-1613 [facility] Serum or plasma alanine keen otransferase (ALT) measurementOrdered By: Michelet Hernandez on 12-02-2024 ALT [Catalytic activity/Vol] 15 U/L <47 [facility] Serum or plasma albumin emma urement (mass/volume)Ordered By: Michelet Hernandez on 12-02-2024 Albumin [Mass/Vol] 4.1 g/dL 3.4-4.8 [facility] Serum or plasma albumin/glob ulin mass ratioOrdered By: Michelet Hernandez on 12-02-2024 Albumin/Globulin [Mass ratio] 1.0 {ratio} 0.9-2.4 [facility] Serum or plasma alkaline david sphatase measurementOrdered By: Michelet Hernandez on 12-02-2024 ALP [Catalytic activity/Vol] 131 U/L High 40-129 [facility] Serum or plasma alpha 1 glob ulin measurement by electrophoresis (mass/volume)Ordered By: Michelet Hernandez on 12-02-2024 Alpha 1 globulin Elph [Mass/Vol] 0.4 g/dL 0.0-0.4 [facility] Alpha 1 globulin Elph [Mass/Vol] 1.2 g/dL High 0.4-1.0 [facility] Serum or plasma beta globuli n measurement by electrophoresis (mass/volume)Ordered By: Michelet Hernandez on 12-02-2024 Beta globulin Elph [Mass/Vol] 1.2 g/dL 0.7-1.3 [facility] Serum or plasma calcium emma urement (mass/volume)Ordered By: Michelet Hernandez on 12-02-2024 Calcium [Mass/Vol] 10.7 mg/dL 7.6-11.0 [facility] Serum or plasma gamma globul in measurement by electrophoresis (mass/volume)Ordered By: Michelet Hernandez on 12-02-2024 Gamma globulin Elph [Mass/Vol] 1.5 g/dL 0.4-1.8 [facility] Serum or plasma immunoelectr ophoresis interpretation (nominal result)Ordered By: Michelet Hernandez on 12-02-2024 Interpretation IEP [Interp] Comment High . [facility] Comment on above: Immunofixation shows IgG monoclonal protein with lambdalight chain specificity. Serum or plasma protein emma urement (mass/volume)Ordered By: Michelet Hernandez on 12-02-2024 Protein [Mass/Vol] 7.8 g/dL 6.0-8.5 [facility] Serum or plasma urea nitroge n measurement (mass/volume)Ordered By: Michelet Hernandez on 12-02-2024 Urea nitrogen [Mass/Vol] 29 mg/dL High 4-19 [facility] Sodium levelOrdered By: Michelet Hernandez on 12-02-2024 Sodium [Moles/Vol] 139 mmol/L 133-145 [facility] TSH DL <= 0.005 mIU/L QnOrde red By: Michelet Hernandez on 12-02-2024 TSH Qn 1.310 uIU/mL 0.300-4.200 [facility] Thyroid Stim Hormone (TSH)on 12-02-2024 TSH 1.310 uIU/mL Normal 0.300-4.200 [facility] Comment on above: Performed By: #### L 500.4050, L501.9910, L400.2010, L3100.3425, L501.9520, L100.0100, L101.9900, L501.6710 #### [facility] [address] [place], [address] Total proteinOrdered By: Shakira Hernandez on 12-02-2024 Protein [Mass/Vol] 8.4 g/dL 5.9-8.4 [facility] Urinalysis, Routine (Dipstic k)on 12-02-2024 BILIRUBIN URINE Negative Normal Negative [facility] Comment on above: Order Comment: CLEAN CATCH Performed By: #### L 500.4050, L501.9910, L400.2010, L3100.3425, L501.9520, L100.0100, L101.9900, L501.6710 #### [facility] [address] [place], [address] GLUCOSE, UR Normal Normal Normal [facility] Comment on above: Order Comment: CLEAN CATCH Performed By: #### L 500.4050, L501.9910, L400.2010, L3100.3425, L501.9520, L100.0100, L101.9900, L501.6710 #### [facility] [address] [place], [address] KETONE UR 5 mg/dl Abnormal Negative [facility] Comment on above: Order Comment: CLEAN CATCH Performed By: #### L 500.4050, L501.9910, L400.2010, L3100.3425, L501.9520, L100.0100, L101.9900, L501.6710 #### [facility] [address] [place], [address] LEUK ESTERASE Negative Normal Negative [facility] Comment on above: Order Comment: CLEAN CATCH Performed By: #### L 500.4050, L501.9910, L4.2010, L3100.3425, L501.9520, L100.0100, L101.9900, L501.6710 #### [facility] [address] [place], [address] OCCULT BLOOD-UR Negative Normal Negative [facility] Comment on above: Order Comment: CLEAN CATCH Performed By: #### L 500.4050, L501.9910, L4.2010, L3100.3425, L501.9520, L100.0100, L101.9900, L501.6710 #### [facility] [address] [place], [address] pH UR 5.0 Normal 5.0 - 8.0 [facility] Comment on above: Order Comment: CLEAN CATCH Performed By: #### L 500.4050, L501.9910, L400.2010, L3100.3425, L501.9520, L100.0100, L101.9900, L501.6710 #### [facility] [address] [place], [address] PROT DIPSTX 15 mg/dl Abnormal Negative [facility] Comment on above: Order Comment: CLEAN CATCH Performed By: #### L 500.4050, L501.9910, L400.2011, L3100.3425, L501.9520, L100.0100, L101.9900, L501.6710 #### [facility] [address] [place], [address] SP.GR. DIPSTX 1.020 Normal 1.002-1.030 [facility] Comment on above: Order Comment: CLEAN CATCH Performed By: #### L 500.4050, L501.9910, L400.2010, L3100.3425, L501.9520, L100.0100, L101.9900, L501.6710 #### [facility] [address] [place], [address] UROBILI Normal Normal Normal [facility] Comment on above: Order Comment: CLEAN CATCH Performed By: #### L 500.4050, L501.9910, L400.2010, L3100.3425, L501.9520, L100.0100, L101.9900, L501.6710 #### [facility] [address] [place], [address] Urine clarityOrdered By: Shakira Hernandez on 12-02-2024 Clarity (U) Clear Clear [facility] Comment on above: Order Comment: CLEAN CATCH Performed By: #### L 500.4050, L501.9910, L400.2010, L3100.3425, L501.9520, L100.0100, L101.9900, L501.6710 #### [facility] [address] [place], [address] Urine color determinationOrd ered By: Michelet Hernandez on 12-02-2024 Color (U) Straw Yellow [facility] Comment on above: Order Comment: CLEAN CATCH Performed By: #### L 500.4050, L501.9910, L400.2011, L3100.3425, L501.9520, L100.0100, L101.9900, L501.6710 #### [facility] [address] [place], [place], [address] Urine glucose detectionOrder ed By: Michelet Hernandez on 12-02-2024 Glucose Ql (U) Normal mg/dl Normal [facility] Urine leukocyte esterase det ection by dipstickOrdered By: Michelet Hernandez on 12-02-2024 Leukocyte esterase Test strip Ql (U) Negative Negative [facility] Urine nitrite test by dipsti ckOrdered By: Michelet Hernandez on 12-02-2024 Nitrite Ql (U) Negative Negative [facility] Comment on above: Order Comment: CLEAN CATCH Performed By: #### L 500.4050, L501.9910, L400.2010, L3100.3425, L501.9520, L100.0100, L101.9900, L501.6710 #### [facility] [address] [place], [place], [address] Urine pHOrdered By: Michelet bear on 12-02-2024 pH (U) 5.0 [pH] 5.0 - 8.0 [facility] Urine specific gravity measu rementOrdered By: Michelet Hernandez on 12-02-2024 Specific gravity (U) [Rel density] 1.020 1.002-1.030 [facility] Urine urobilinogen measureme ntOrdered By: Michelet Hernandez on 12-02-2024 Urobilinogen Ql (U) Normal mg/dl Normal [facility] White blood cell (WBC) count Ordered By: Michelet Hernandez on 12-02-2024 WBC (Bld) [#/Vol] 7.8 10*3/uL 4.4-11.0 [facility] .Auto Diffon 07-23-2024 Basophil, Absolute 0.0 10 3/mcL Normal 0.0-0.2 [facility] Comment on above: Performed By: #### M DW, BMP, ADIFF, CBC, ANEU, GFR, TROPHS #### [address] [address] Basophils/100 WBC (Bld) 0.3 % Normal 0.0-2.5 [facility] Comment on above: Performed By: #### M DW, BMP, ADIFF, CBC, ANEU, GFR, TROPHS #### [address] [address] Eosinophil, Absolute 0.2 10 3/mcL Normal 0.0-0.7 [facility] Comment on above: Performed By: #### M DW, BMP, ADIFF, CBC, ANEU, GFR, TROPHS #### [address] [address] Eosinophils/100 WBC (Bld) 3.3 % Normal 0.0-7.0 [facility] Comment on above: Performed By: #### M DW, BMP, ADIFF, CBC, ANEU, GFR, TROPHS #### [address] [address] Lymphocyte, Absolute 0.6 10 3/mcL Low 0.9-4.3 [facility] Comment on above: Performed By: #### M DW, BMP, ADIFF, CBC, ANEU, GFR, TROPHS #### [address] [address] Lymphocytes/100 WBC (Bld) 9.0 % Low 20.0-40.0 [facility] Comment on above: Performed By: #### M DW, BMP, ADIFF, CBC, ANEU, GFR, TROPHS #### [address] [address] Monocyte, Absolute 0.5 10 3/mcL Normal 0.1-1.4 [facility] Comment on above: Performed By: #### M DW, BMP, ADIFF, CBC, ANEU, GFR, TROPHS #### [address] [address] Monocytes/100 WBC (Bld) 7.4 % Normal 2.0-13.0 [facility] Comment on above: Performed By: #### M DW, BMP, ADIFF, CBC, ANEU, GFR, TROPHS #### [address] [address] Neutrophils/100 WBC (Bld) 80.0 % High 50.0-75.0 [facility] Comment on above: Performed By: #### M DW, BMP, ADIFF, CBC, ANEU, GFR, TROPHS #### [address] [address] .GFRon 07-23-2024 Estimated Glomerular Filtration Rate 69 ml/min/1.73sqm Normal [facility] Comment on above: Result Comment: Stages of Chronic Kidney Disease (CKD) Stage Description eGFR(ml/min/1.73 sq.m.) CKD 1 Normal kidney function or >=90 normal kindney function with possible kidney damage (ex. Proteinuria) CKD 2 Kidney damage with mild loss 60-89 of kidney function CKD 3a Mild to moderate loss of kidney 45-59 function CKD 3b Moderate to severe loss of 30-44 of kindey function CKD 4 Severe loss of kidney function 15-29 CKD 5 Kidney failure <15 Note: (go live 2024) the eGFR calculation was updated to the 2020 CKD-EPI creatinine equation without a race factor to calculate the eGFR results. Performed By: #### M DW, BMP, ADIFF, CBC, ANEU, GFR, TROPHS #### [address] [address] .MDWon 07-23-2024 Monocyte Distribution Width 17.36 Normal 0.00-20.00 [facility] Comment on above: Result Comment: For ED adult patients suspected of sepsis, MDW<=20.0 does not rule out sepsis or risk of sepsis Performed By: #### M DW, BMP, ADIFF, CBC, ANEU, GFR, TROPHS #### [address] [address] .NEUABSon 07-23-2024 Neutrophil, Absolute 5.0 10 3/mcL Normal 2.3-8.1 [facility] Comment on above: Performed By: #### M DW, BMP, ADIFF, CBC, ANEU, GFR, TROPHS #### [address] [address] BMPon 07-23-2024 BUN/Creatinine Ratio 15 ratio Normal 7-27 [facility] Comment on above: Performed By: #### M DW, BMP, ADIFF, CBC, ANEU, GFR, TROPHS #### [address] [address] Calcium [Mass/Vol] 9.2 mg/dL Normal 8.4-10.2 [facility] Comment on above: Performed By: #### M DW, BMP, ADIFF, CBC, ANEU, GFR, TROPHS #### [place] [id number] Chloride [Moles/Vol] 104 mmol/L Normal 98-107 [facility] Comment on above: Performed By: #### M DW, BMP, ADIFF, CBC, ANEU, GFR, TROPHS #### [address] [address] CO2 [Moles/Vol] 30 mmol/L Normal 23-31 [facility] Comment on above: Performed By: #### M DW, BMP, ADIFF, CBC, ANEU, GFR, TROPHS #### [address] [address] Creatinine [Mass/Vol] 1.08 mg/dL Normal 0.70-1.30 [facility] Comment on above: Result Comment: Test ing performed on Siemens Dimension EXL analyzer using a modified kinetic Miguelina technique. Performed By: #### M DW, BMP, ADIFF, CBC, ANEU, GFR, TROPHS #### [place] [id number] Electrolyte Balance 4.0 mEq/L Normal 4.0-15.0 [facility] Comment on above: Performed By: #### M DW, BMP, ADIFF, CBC, ANEU, GFR, TROPHS #### [place] [id number] Glucose [Mass/Vol] 153 mg/dL High -110 [facility] Comment on above: Performed By: #### M DW, BMP, ADIFF, CBC, ANEU, GFR, TROPHS #### [place] [address] Potassium [Moles/Vol] 4.3 mmol/L Normal 3.5-5.1 [facility] Comment on above: Performed By: #### M DW, BMP, ADIFF, CBC, ANEU, GFR, TROPHS #### [place] [address] Sodium [Moles/Vol] 138 mmol/L Normal 136-145 [facility] Comment on above: Performed By: #### M DW, BMP, ADIFF, CBC, ANEU, GFR, TROPHS #### [place] [address] Urea nitrogen [Mass/Vol] 16 mg/dL Normal 7-18 [facility] Comment on above: Performed By: #### M DW, BMP, ADIFF, CBC, ANEU, GFR, TROPHS #### [place] [address] CBCon 07-23-2024 Erythrocyte distribution width (RBC) [Ratio] 14.1 % Normal 11.5-15.5 [facility] Comment on above: Performed By: #### M DW, BMP, ADIFF, CBC, ANEU, GFR, TROPHS #### [place] [address] Hematocrit (Bld) [Volume fraction] 39.6 % Low 40.0-52.0 [facility] Comment on above: Performed By: #### M DW, BMP, ADIFF, CBC, ANEU, GFR, TROPHS #### [place] [address] Hgb 13.5 G/dL Normal 13.0-17.5 [facility] Comment on above: Performed By: #### M DW, BMP, ADIFF, CBC, ANEU, GFR, TROPHS #### [place] [address] MCH (RBC) [Entitic mass] 30.5 pg Normal 27.0-33.0 [facility] Comment on above: Performed By: #### M DW, BMP, ADIFF, CBC, ANEU, GFR, TROPHS #### [place] [id number] MCHC 34.0 G/dL Normal 32.0-36.0 [facility] Comment on above: Performed By: #### M DW, BMP, ADIFF, CBC, ANEU, GFR, TROPHS #### [place] [address] MCV (RBC) [Entitic vol] 89.7 fL Normal 81.0-100.0 [facility] Comment on above: Performed By: #### M DW, BMP, ADIFF, CBC, ANEU, GFR, TROPHS #### [place] [address] Platelet 288 10 3/mcL Normal 150-450 [facility] Comment on above: Performed By: #### M DW, BMP, ADIFF, CBC, ANEU, GFR, TROPHS #### [place] [address] Platelet mean volume (Bld) [Entitic vol] 7.2 fL Normal 6.4-10.5 [facility] Comment on above: Performed By: #### M DW, BMP, ADIFF, CBC, ANEU, GFR, TROPHS #### [place] [address] RBC 4.41 10 6/mcL Low 4.50-6.00 [facility] Comment on above: Performed By: #### M DW, BMP, ADIFF, CBC, ANEU, GFR, TROPHS #### [place] [address] WBC 6.2 10 3/mcL Normal 4.5-10.8 [facility] Comment on above: Performed By: #### M DW, BMP, ADIFF, CBC, ANEU, GFR, TROPHS #### [address] [address] [address] HEAD OR BRAIN W/O CONTRAS Ton 07-23-2024 CT HEAD OR BRAIN W/O CONTRAST ORIGINAL EXAMINATION: CT OF THE HEAD WITHOUT CONTRAST 07/23/2024 9:24 am TECHNIQUE: CT of the head was performed without the administration of intravenous contrast. Automated exposure control, iterative reconstruction, and/or weight based adjustment of the mA/kV was utilized to reduce the radiation dose to as low as reasonably achievable. COMPARISON: None. HISTORY: ORDERING SYSTEM PROVIDED HISTORY: Reason for Exam: syncopal episode FINDINGS: BRAIN/VENTRICLES: There is no acute intracranial hemorrhage, mass effect or midline shift. No abnormal extra-axial fluid collection. The vizcaino-white differentiation is maintained without evidence of an acute infarct. There is no evidence of hydrocephalus. ORBITS: The visualized portion of the orbits demonstrate no acute abnormality. SINUSES: The visualized paranasal sinuses and mastoid air cells demonstrate no acute abnormality. SOFT TISSUES/SKULL: No acute abnormality of the visualized skull or soft tissues. IMPRESSION: Unremarkable unenhanced CT examination of the brain. Interpreted by: Kenrick Loza Preliminary Report By: Kenrick Loza Electronically signed By Kenrick Loza Dictated Date: 07/23/2024 9:25:20 AM Prelim Date: 07/23/2024 9:25:53 AM Sign Date: 07/23/2024 9:25:53 AM Ordering Provider: MARK Jean Baptiste [facility] By: Wilbert Farooq on 07-23-2024 Appearance (U) Clear (07/23/24 10:17 AM) Normal Clear AO Auto Urine SS Bilirubin Ql (U) Negative (07/23/24 10:17 AM) Normal Negative AO Auto Urine SS Color (U) Yellow (07/23/24 10:17 AM) Normal AO Auto Urine SS Glucose Test strip (U) [Mass/Vol] Negative Normal Negative AO Auto Urine SS Hemoglobin Auto test strip (U) [Mass/Vol] Negative (07/23/24 10:17 AM) Normal Negative AO Auto Urine SS Ketones Ql (U) Negative Normal Negative AO Auto Urine SS UA Leuk Est Negative (07/23/24 10:17 AM) Normal Negative AO Auto Urine SS UA Nitrite Negative (07/23/24 10:17 AM) Normal Negative AO Auto Urine SS UA pH 6.5 (07/23/24 10:17 AM) Normal 5.0 - 8.0 AO Auto Urine SS UA Protein Negative Normal Negative AO Auto Urine SS UA Spec Grav 1.020 (07/23/24 10:17 AM) Normal 1.015-1.025 AO Auto Urine SS UA Specimen Type Clean Catch (07/23/24 10:17 AM) Normal AO Auto Urine SS UA Urobilinogen 0.2 E.U./dL Normal 0.2-1.0 AO Auto Urine SS LABORATORYOrdered By: SYSTEM SYSTEM on 07-23-2024 Calcium [Mass/Vol] 9.2 mg/dL Normal 8.4 - 10. 2 mg/dL AO ADM SS Chloride [Moles/Vol] 104 mmol/L Normal 98 - 10 7 mmol/L AO ADM SS CO2 [Moles/Vol] 30 mmol/L Normal 23 - 31 mmol/L AO ADM SS Creatinine [Mass/Vol] 1.08 mg/dL Normal 0.70 - 1.30 mg/dL AO ADM SS Comment on above: Interpretive Data: T esting performed on Siemens Dimension EXL analyzer using a modified kinetic Miguelina technique. Electrolyte Balance 4.0 mEq/L Normal 4.0 - 15 .0 mEq/L AO ADM SS Estimated Glomerular Filtration Rate 69 ml/min/1.73sqm Invalid Interpretation Code AO Chemistry S Comment on above: Interpretive Data: Stages of Chronic Kidney Disease (CKD) Stage Description eGFR(ml/min/1.73 sq.m.) CKD 1 Normal kidney function or >=90 normal kindney function with possible kidney damage (ex. Proteinuria) CKD 2 Kidney damage with mild loss 60-89 of kidney function CKD 3a Mild to moderate loss of kidney 45-59 function CKD 3b Moderate to severe loss of 30-44 of kindey function CKD 4 Severe loss of kidney function 15-29 CKD 5 Kidney failure <15 Note: (go live 2024) the eGFR calculation was updated to the 2020 CKD-EPI creatinine equation without a race factor to calculate the eGFR results. Glucose [Mass/Vol] 153 mg/dL High 83 - 110 mg/dL AO ADM SS Potassium [Moles/Vol] 4.3 mmol/L Normal 3.5 - 5.1 mmol/L AO ADM SS Sodium [Moles/Vol] 138 mmol/L Normal 136 - 145 mmol/L AO ADM SS Troponin I.cardiac DL <= 0.01 ng/mL [Mass/Vol] 42 ng/L Normal 0 - 76 ng/L AO ADM SS Comment on above: Interpretive Data: H igh Sensitive Troponin I Reference Ranges: Female: 0-51 ng/L Male: 0-76 ng/L Testing performed on [employer] using a homogeneous sandwich chemiluminescent immunoassay based on [employer] technology. Urea nitrogen [Mass/Vol] 16 mg/dL Normal 7 - 18 mg/dL AO ADM SS Urea nitrogen/Creatinine [Mass ratio] 15 ratio Normal 7 - 27 ratio AO ADM SS Basophils (Bld) [#/Vol] 0.0 103/mcL Normal 0.0 - 0.2 10^3/mcL AO Workflow SS Basophils/100 WBC (Bld) 0.3 % Normal 0.0 - 2.5 % AO Workflow SS Eosinophil, Absolute 0.2 103/mcL Normal 0.0 - 0 .7 10^3/mcL AO Workflow SS Eosinophils/100 WBC (Bld) 3.3 % Normal 0.0 - 7.0 % AO Workflow SS Erythrocyte distribution width (RBC) [Ratio] 14.1 % Normal 11.5 - 15.5 % AO Workflow SS Hematocrit (Bld) [Volume fraction] 39.6 % Low 40.0 - 52.0 % AO Workflow SS Hemoglobin (Bld) [Mass/Vol] 13.5 G/dL Normal 13.0 - 17.5 G/dL AO Workflow SS Lymphocytes (Bld) [#/Vol] 0.6 103/mcL Low 0.9 - 4.3 10^3/mcL AO Workflow SS Lymphocytes/100 WBC (Bld) 9.0 % Low 20.0 - 40.0 % AO Workflow SS MCH (RBC) [Entitic mass] 30.5 pg Normal 27. 0 - 33.0 pg AO Workflow SS MCHC 34.0 G/dL Normal 32.0 - 36.0 G/dL AO Workflow SS MCV (RBC) [Entitic vol] 89.7 fL Normal 81.0 - 100.0 fL AO Workflow SS Monocyte distribution width Auto (Bld) [Entitic vol] 17.36 1 Normal 0.00 - 20.00 AO Workflow SS Comment on above: Result Comment: For ED adult patients suspected of sepsis, MDW<=20.0 does not rule out sepsis or risk of sepsis Monocytes (Bld) [#/Vol] 0.5 103/mcL Normal 0.1 - 1.4 10^3/mcL AO Workflow SS Monocytes/100 WBC (Bld) 7.4 % Normal 2.0 - 13.0 % AO Workflow SS Neutrophils (Bld) [#/Vol] 5.0 103/mcL Normal 2.3 - 8.1 10^3/mcL AO Workflow SS Neutrophils/100 WBC (Bld) 80.0 % High 50.0 - 75.0 % AO Workflow SS Platelet mean volume (Bld) [Entitic vol] 7.2 fL Normal 6.4 - 10.5 fL AO Workflow SS Platelets (Bld) [#/Vol] 288 103/mcL Normal 150 - 450 10^3/mcL AO Workflow SS RBC (Bld) [#/Vol] 4.41 106/mcL Low 4.50 - 6.0 0 10^6/mcL AO Workflow SS WBC (Bld) [#/Vol] 6.2 103/mcL Normal 4.5 - 10.8 10^3/mcL AO Workflow SS TROPHSon 07-23-2024 High Sensitivity Troponin I 42 ng/L Normal 0-76 [facility] Comment on above: Order Comment: hemol yzed Result Comment: High Sensitive Troponin I Reference Ranges: Female: 0-51 ng/L Male: 0-76 ng/L Testing performed on [employer] using a homogeneous sandwich chemiluminescent immunoassay based on [employer] technology. Performed By: #### M DW, BMP, ADIFF, CBC, ANEU, GFR, TROPHS #### [address] [address] UAon 07-23-2024 Color (U) Yellow Normal [facility] Comment on above: Performed By: #### U A #### [address] [address] Glucose (U) [Mass/Vol] Negative Normal Negative [facility] Comment on above: Performed By: #### U A #### [address] [address] Ketones Ql (U) Negative Normal Negative [facility] Comment on above: Performed By: #### U A #### [address] [address] UA Appear Clear Normal Clear [facility] Comment on above: Performed By: #### U A #### [place] [address] UA Blood Negative Normal Negative [facility] Comment on above: Performed By: #### U A #### [place] [address] UA Leuk Est Negative Normal Negative [facility] Comment on above: Performed By: #### U A #### [place] [address] UA Nitrite Negative Normal Negative [facility] Comment on above: Performed By: #### U A #### [place] [address] UA pH 6.5 Normal 5.0 - 8.0 [facility] Comment on above: Performed By: #### U A #### [place] [address] UA Protein Negative Normal Negative [facility] Comment on above: Performed By: #### U A #### [place] [address] UA Spec Grav 1.020 Normal 1.015-1.025 [facility] Comment on above: Performed By: #### U A #### [place] [address] UA Specimen Type Clean Catch Normal [facility] Comment on above: Performed By: #### U A #### [place] [address] UA Urobilinogen 0.2 E.U./dL Normal 0.2-1.0 [facility] Comment on above: Performed By: #### U A #### [place] [address] Urobilinogen (U) [Mass/Vol] Negative Normal Negative [facility] Comment on above: Performed By: #### U A #### [place] [address] Urgent Care Visit Reporton 0 1-04-2025 Urgent Care Visit Report [facility] [address], [address] [place] [address] OFFICE VISIT Date of Service: 06/05/24 MR#: [id number] Acct: [id number] Name: JUJU HALL Rep #: [id number] : 1945 Provider: GIRMA Ashley Age/Sex: 78/M Location: [facility] [place] Status: Signed Intake Vital Signs 06/05/24 10:09 Height 5 ft 8 in Weight: 171 lb BMI 25.9 BP 122/74 H Blood Pressure Location Lt brachial Position Sitting Respiration 12 Pulse 86 Pulse Source NIBP Temp 97.8 F Temp Source Oral Pulse Oximetry (%) 98 Oxygen Delivery Method room air Intake Visit Reasons: SORE THROAT Provider Relations Coordinator Required: No Is patient in pain?: No Allergies No Known Allergies Allergy (Verified 06/05/24 10:16) Medications ???Medication ???Instructions ???Recorded ???Confirmed ???Type chlorhexidine gluconate 0.12 % 15 ml buccal BID #300 mL 06/05/24 06/05/24 Rx mouthwash (Peridex) Have you fallen in the past year?: No HPI HPI Details: JUJU HALL, is a 78 M who presents to the office today for right swollen tonsil, ran rapid strep test. -in office strep negative -sx started 2-2.5 days ago -sx swollen right tonsil -no fever or chills, denies cough, congestion or runny nose -denies sob or ST -denies myalgias -tried so far warm salt water gargles -denies abd pain, n/v, headaches ROS Const Constitutional: Positive for other (ROS negative x6 except what was placed in HPI) Exam Const General: cooperative, comfortable and no acute distress Orientation: alert, awake and oriented x3 HENMT Head: normal to inspection and normocephalic Ears: hearing grossly normal bilaterally, external ears normal and TM's normal bilaterally Nose: external nose normal, nares normal, no nasal polyps, nasal mucous membranes and turbinates normal, no nasal discharge and other Face and sinus: normal facial exam, sinuses nontender and face symmetric Mouth: oral mucosae normal, lip normal, tongue normal, oropharynx normal and moist mucous membranes Throat: posterior oropharynx normal, tonsils normal and uvula midline Other: -throat with no redness, exudate. Tonsils normal no swelling- redness or exudate Neck Neck: normal visual inspection, full ROM and no lymphadenopathy Resp Effort Inspection: normal respiratory effort, able to speak in complete sentences and symmetric chest movement Auscultation: Bilateral: Clear to Auscultation, Left: Clear to Auscultation and Right: Clear to Auscultation Cardio Rate: regular rate Rhythm: regular rhythm Heart Sounds: S1 normal and S2 normal GI Auscultation: normal bowel sounds Palpation: soft Skin General: no rashes or lesions noted and turgor normal Neuro General: patient alert, patient awake and patient oriented x3 Cognition: normal cognition Speech: speech normal Psych Appearance: grossly normal Mental Status: mental status grossly normal Attitude: cooperative Thought Process: normal Thought Content: normal Coding Level of Care Code Off vis,new,level 3 Diagnoses Viral sore throat J02.8; B97.89 Assessment and Plan Assessment and Plan (1) Viral sore throat: Status: Acute Plan: -warm salt water gargles every 2 hours -warm tea with honey -increase fluids -peridex mouth wash twice a day -Listerine gargles- -cough drops or lozenges -Chloraseptic spray prn -cool mist humidifier -tylenol or ibuprofen as needed for pain -Please follow up with your Primary Care Physician for ongoing chronic problems. If symptoms change or worsen, please present to Emergency Room for further evaluation 1. See visit diagnoses, disposition, and orders. 2. Reviewed and updated medication list; Discussed probable diagnosis, test results if available in office today and management options with patient/guardian: agreed to the medical plan above 3. Education provided regarding visit today, see after visit summary. Instruction provided in the use of fluids, vaporizer, acetaminophen, and/or other OTC medication for symptom control. Explained use of antibiotics only for proven or strongly suspected bacterial infections. 4. Prevention and health maintenance with primary care provider. 5. Patient/guardian educated to proceed to ED with worsening of condition, changes, or failure to improve. Orders: Orders POC Rapid Strep A Today J02.9 - Acute pharyngitis, unspecified Medications: New chlorhexidine gluconate 0.12% (Peridex) 15 mL buccal BID 300 mL 0RF Clinical Quality Measures Falls Risk Screening/Assistive Devices Have you fallen in the past year?: No 06/05/24 1025 Date Leslie Ashley NP-C Cosigner Signature: Date (if appl (more content not included)... Normal [facility] Vital Signs Date Time Vital Sign Value Performing Clinician Facility 12-27-2024 07:14-0400 Body height 172.[address] Michelet Hernandez DO Work Phone: [facility] 12-27-2024 07:14-0400 Body mass index (BMI) [Ratio] 23.6 kg/m2 Dr. Michelet Hernandez DO Work Phone: [facility] 12-27-2024 07:14-0400 Body temperature 97.4 [degF] Dr. Michelet Hernandez DO Work Phone: [facility] 12-27-2024 07:14-0400 Body weight 70.[address] Michelet Hernandez DO Work Phone: [facility] 12-27-2024 07:14-0400 Diastolic blood pressure 85 mm[Hg] Dr. Michelet Hernandez DO Work Phone: [facility] 12-27-2024 07:14-0400 Heart rate 102 /min Dr. Michelet Hernandez DO Work Phone: [facility] 12-27-2024 07:14-0400 Respiratory rate 18 /min Dr. Michelet Hernandez DO Work Phone: [facility] 12-27-2024 07:14-0400 SaO2% (BldA) [Mass fraction] 95 % Dr. Michelet Hernandez DO Work Phone: [facility] 12-27-2024 07:14-0400 Systolic blood pressure 160 mm[Hg] Dr. Michelet Hernandez DO Work Phone: [facility] 07-23-2024 11:11-0500 Diastolic Blood Pressure Non-Invasive 70 mm[Hg] DR MARK GORE MD [facility] 07-23-2024 11:11-0500 Heart rate 72 /min DR MARK GORE MD [facility] 07-23-2024 11:11-0500 Respiratory rate 16 /min DR MARK GORE MD [facility] 07-23-2024 11:11-0500 Systolic Blood Pressure Non-Invasive 118 mm[Hg] DR MARK GORE MD [facility] 07-23-2024 10:13-0500 Diastolic Blood Pressure Non-Invasive 71 mm[Hg] DR MARK GORE MD [facility] 07-23-2024 10:13-0500 Heart rate 85 /min DR MARK GORE MD [facility] 07-23-2024 10:13-0500 Respiratory rate 16 /min DR MARK GORE MD [facility] 07-23-2024 10:13-0500 Systolic Blood Pressure Non-Invasive 123 mm[Hg] DR MARK GORE MD [facility] 07-23-2024 08:05-0500 Body temperature 97.16 [degF] DR MARK GORE MD [facility] 07-23-2024 08:05-0500 Body weight 77.[address] MARK GORE MD [facility] 07-23-2024 08:05-0500 Diastolic Blood Pressure Non-Invasive 68 mm[Hg] DR MARK GORE MD [facility] 07-23-2024 08:05-0500 Heart rate 73 /min DR MARK GORE MD [facility] 07-23-2024 08:05-0500 Respiratory rate 14 /min DR MARK GORE MD [facility] 07-23-2024 08:05-0500 Systolic Blood Pressure Non-Invasive 122 mm[Hg] DR MARK GORE MD [facility] Encounters Encounter Date Encounter Type Care Provider Facility Start: 12-27-[address] Jason Wen DO -Laboratory Work Phone: Start: 12-27-2024 End: 12-27-[address] Michelet Hernandez DO Work Phone: -[facility] Start: 12-27-2024 End: 12-27-[address] Jason Wen DO -[facility] Work Phone: Start: 12-21-2024 End: 12-21-[address] MICHELET HERNANDEZ DO Facility:[facility] Start: 12-21-2024 End: 12-21-[address] MICHELET HERNANDEZ DO [facility] Start: 12-04-2024 ambulatory Michelet Hernandez Facility: [facility] Start: 12-02-2024 End: 12-02-[address] Michelet Hernandez DO [facility] Start: 12-02-2024 End: 12-02-[address] Michelet Hernandez DO -Laboratory Mara [facility]iles [facility] Start: 12-02-2024 End: 12-02-2024 ambulatory Michelet Hernandez Facility:[facility] Start: 07-23-2024 End: 07-23-2024 Emergency department patient visit DR MARK GORE MD [facility] Start: 06-05-2024 End: 06-05-2024 ambulatory [facility] Facility:[facility] Procedures Date Procedure Procedure Detail Performing Clinician Start: 12-02-2024 Urnls dip stick/tabl et reagent auto microscopy Dr. Michelet Hernandez DO Work Phone: Start: 12-02-2024 Albumin/Globulin ratio Dr. Michelet Hernandez DO Work Phone: Start: 12-02-[address] M measurement Dr. Michelet Hernandez DO Work Phone: Start: 12-02-2024 Prostate specific an tigen measurement Dr. Michelet Hernandez DO Work Phone: Comment on above: This test was perfor med using the [employer] tPSA method. Measured values of a patient sample can vary depending on the testing procedure used. PSA values determined on patient samples by different testing procedures cannot be used interchangeably. If there is a change in PSA assays while monitoring therapy, sequential testing should be performed to confirm baseline values. Plan of Treatment Date Care Activity Detail Author Cell count and Differential panel - Body fluid [facility] INR in Blood by Coagulation assay [facility] Lactate dehydrogenas e [Enzymatic activity/volume] in Body fluid by Pyruvate to lactate reaction [facility] Lactate dehydrogenase measurement [facility] Microbial culture, body fluid [facility] Microscopic observat ion [Identifier] in Body fluid by Cyto stain [facility] Partial thromboplastin time, activated [facility] Platelets [#/volume] in Blood [facility] Protein [Mass/volume] in Body fluid [facility] Protein [Mass/volume] in Serum or Plasma [facility] Prothrombin time [facility] Ultrasonic guidance for thoracentesis [place] Payers Date Payer Category Payer Private Health Insurance [id number] 2024 Self-pay 2012 Private Health Insurance [id number] 1945 Unknown [id number] 1945 Unknown [id number] [id number] [id number] Unknown [id number] [id number] [id number] Unknown [id number] 2.16.8 [id number] Unknown [id number] 2.16.8 [id number] Social History Date Type Detail Facility Tobacco smoking status [facility] Start: 1945 Sex Assigned At Male [facility] Start: 07-23-2024 Sex Male (finding) [facility] Work Phone: Start: 12-27-2024 [facility] (finding) [facility] Gender Identity Identifies as ma le gender (finding) [facility] Functional Status Date Assessment Result Facility 07-23-2024 Functional Status Independent [facility] 07-23-2024 Functional Status Independent [facility] Mental Status Date Assessment Result Facility 07-23-2024 Mental Status Orientation Oriented x 4 [facility] 07-23-2024 Mental Status [facility] Clinical Notes 07-23-2024 Note Date & Type Note Facility 07-23-2024 Hospital Discharg e instructions Patient Education 07/23/2024 10:50:48 Syncope, Vasovagal Fainting: Vagal Reaction Fainting (syncope) is a temporary loss of consciousness that is associated with a loss of postural tone. It s also called passing out. It occurs when blood flow to the brain is less than normal. Your healthcare provider believes that your fainting was because of a vagal reaction. This condition is not a sign of serious disease. A vagal reaction is a response in your body that causes your pulse to slow down or the blood vessels to expand. This causes your blood pressure to fall. And this sends less blood to your brain if you are standing or sitting. That results in dizziness, near-fainting, or fainting. Lying down usually stops the reaction within 60 seconds. This response can occur during sudden fear, severe pain, emotional stress, overexertion, overheating, hunger, nausea or vomiting, prolonged standing, or standing up after sitting or lying for a long time. Home care Follow these guidelines when caring for yourself at home: Rest today. Go back to your normal activities as soon as you are feeling back to normal. Stay hydrated and avoid skipping meals. If you feel lightheaded or dizzy, lie down right away. Or sit with your head lowered between your knees. Follow-up care Follow up with your healthcare provider, or as advised. When to seek medical advice Call your healthcare provider right away if any of these occur: Another fainting spell that s not explained by the common causes listed above Pain in your chest, arm, neck, jaw, back, or abdomen Shortness of breath Severe headache or seizure Your heart beats very rapidly, very slowly, or irregularly (palpitations) 7859-7240 [employer]. [address] [place] [address]. All rights reserved. This information is not intended as a substitute for professional medical care. Always follow your healthcare professional's instructions. Follow Up Care 07/23/2024 08:02:49 With:MICHELET HERNANDEZ DO Address: [address] [place] [address]- When:2-4 days [facility] 07-23-2024 Note Discharge Instructions Thank you for allowing [facility] to assist you with your healthcare needs. The following is important discharge information regarding your hospital visit. Diagnosis from Today's Visit Vasovagal syncope What to Do Next Instructions from Your Care Team No qualifying data available. Post Acute Orders No qualifying data available. You Need to Schedule the Following Appointments Follow Up with MICHELET HERNANDEZ DO When:Within 2-4 days Where:[address] [place] [address]- Allergies No Known Medication Allergies Medications Please ask your primary doctor or pharmacist before taking any other medication not listed, including over the counter drugs, herbal medications, vitamins and or supplements as they may interact with your home medications. Please take this list to your next doctor s visit. Bring all medications you take, including over the counter medications, herbals and other supplements with you to your doctor s visit. Patients and families are reminded to discard old lists and to update any records with all medication providers or retail pharmacies. Education Materials Fainting: Vagal Reaction Fainting (syncope) is a temporary loss of consciousness that is associated with a loss of postural tone. It s also called passing out. It occurs when blood flow to the brain is less than normal. Your healthcare provider believes that your fainting was because of a vagal reaction. This condition is not a sign of serious disease. A vagal reaction is a response in your body that causes your pulse to slow down or the blood vessels to expand. This causes your blood pressure to fall. And this sends less blood to your brain if you are standing or sitting. That results in dizziness, near-fainting, or fainting. Lying down usually stops the reaction within 60 seconds. This response can occur during sudden fear, severe pain, emotional stress, overexertion, overheating, hunger, nausea or vomiting, prolonged standing, or standing up after sitting or lying for a long time. Home care Follow these guidelines when caring for yourself at home: Rest today. Go back to your normal activities as soon as you are feeling back to normal. Stay hydrated and avoid skipping meals. If you feel lightheaded or dizzy, lie down right away. Or sit with your head lowered between your knees. Follow-up care Follow up with your healthcare provider, or as advised. When to seek medical advice Call your healthcare provider right away if any of these occur: Another fainting spell that s not explained by the common causes listed above Pain in your chest, arm, neck, jaw, back, or abdomen Shortness of breath Severe headache or seizure Your heart beats very rapidly, very slowly, or irregularly (palpitations) [phone] [employer]. [address] [place] [address]. All rights reserved. This information is not intended as a substitute for professional medical care. Always follow your healthcare professional's instructions. Additional Information VACCINATE! IT SAVES LIVES! Members of the community who have not yet received the COVID-19 vaccine and would like to receive it can visit one of [facility] vaccine clinics. There are many vaccine clinic locations within the [facility]. For locations and available times, please visit [email or web address] [email or web address] It is important to note that some COVID mobile vaccine clinics are held outdoors and may be canceled in rainy or stormy conditions. To learn more about pediatric vaccinations (ages 5-11), we invite you to visit the [facility] webpage. [email or web address]/p [email or web address] [email or web address] To learn more about the COVID-19 vaccine, we invite you to visit the CDC website for a list of frequently asked questions. https://www.cdc.gov/coronavirus/ 2019-ncov/vaccines/faq.html [facility] Patient Portal Access Instructions: Stay connected with your healthcare team and access your personal medical information anytime with the [employer] [facility] Patient Portal. If you would like a full copy of your medical records please contact the [facility] Medical Records Department Friday through Friday between 8a.m. and 4:30p.m. Please follow the directions below to access the portal: 1.Access the email account you provided upon registration to the hospital.2.Look for an invitation email from [facility].3.Open the email and access the invitation link: Accept Invitation to [facility].Fill in the required jensen to create your account. Sign into [email or web address].[email or web address] with your username and password that you created in the above steps to stay up to date. You can then view a summary of results, a summary of your visits, and the ability to download your summaries to your computer or send the information securely to a physician. Remember that your healthcare information is confidential, so carefully consider who you will allow to register on the [facility] Patient Portal for access to your information. You can also access the [employer] Patient Portal on the [employer] gerber. Simply click on Health Records under Health Data and then click on the [employer] logo. HOW TO SAFELY DISPOSE OF PRESCRIPTION MEDICATIONS Please use one of the following methods to safely dispose of your unused medications. 1.Use a drug disposal kit: the drug disposal pouch allows you to safely discard your old and unused drugs. Ask your nurse to give you one when you are discharged.2.Visit a local take-back location: Many local pharmacies and police departments have programs that collect old and unwanted prescription drugs. Call your local pharmacy or go to http://Impul[employer].Pouring Pounds/5E8Pj0e to find one close to you.3.Make use of household items: Use cat litter or old coffee grounds to dispose medications if other options are not available. Mix your drugs with these household products, seal them in an airtight container and throw it into the garbage. Call [facility]: [phone] to be sure your drugs can be disposed of in this way. Some medicines may require a different approach.4.Never flush your medications down the toilet. IF YOU HAVE BEEN PRESCRIBED AN OPIOIDS FOR PAIN If you have been prescribed an opioid (such as hydrocodone, oxycodone or morphine), it is critical to understand the possible side effects and risks of opioid pain medications. Even when taken as directed, opioids can have several side effects including: Tolerance, meaning you might need to take more of a medication for the same pain relief. Nausea, vomiting and/or constipation. Sleepiness, dizziness, dry mouth, confusion, depression or itching. Physical dependence, meaning you have withdrawal symptoms when a medication is stopped ? this can develop within a few days. KNOW YOUR RESPONSIBILITIES It is important to know exactly how much and how often to take the opioid pain medications you are prescribed. Never take opioids in higher amounts or more often than prescribed. Do not combine opioids with alcohol or other drugs that cause drowsiness, such as benzodiazepines, also known as benzos, including diazepam and alprazolam, muscle relaxants or sleep aids. Never sell or share prescription opioids. This is illegal. Store opioids in a secure place and out of reach of others (including children, family, friends and visitors). The last page(s) of this document has been signed and retained as a CHART COPY Signatures Patient Education Materials Syncope, Vasovagal Medication Leaflets My discharge plan and instructions have been reviewed and explained to me and I,ISABEL JUJU Monge understand my current condition and have read and understand these discharge instructions. I have received a written copy of the plan/instructions. If I have questions, I am aware that I should contact my doctor. 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 Automated exposure control, iterative reconstruction, and/or weight based adjustment of the mA/kV was utilized to reduce the radiation dose to as low as reasonably achievable. COMPARISON: None. HISTORY: ORDERING SYSTEM PROVIDED HISTORY: Reason for Exam: syncopal episode FINDINGS: BRAIN/VENTRICLES: There is no acute intracranial hemorrhage, mass effect or midline shift. No abnormal extra-axial fluid collection. The vizcaino-white differentiation is maintained without evidence of an acute infarct. There is no evidence of hydrocephalus. ORBITS: The visualized portion of the orbits demonstrate no acute abnormality. SINUSES: The visualized paranasal sinuses and mastoid air cells demonstrate no acute abnormality. SOFT TISSUES/SKULL: No acute abnormality of the visualized skull or soft tissues. IMPRESSION: Unremarkable unenhanced CT examination of the brain. Interpreted by: Kenrick Loza Preliminary Report By: Kenrick Loza Electronically signed By Kenrick Loza Dictated Date: 07/23/2024 9:25:20 AM Prelim Date: 07/23/2024 9:25:53 AM Sign Date: 07/23/2024 9:25:53 AM Ordering Provider: MARK GORE [facility]02-21-2025 Note* Exam Date Time Procedure Performing Provider Status 07/23/24 8:49 AM EKG [ED AO] - CV MD BAO, MARK MCGOVERN; Auth (Verified) ECG Final Report Sinus rhythm Atrial premature complex Baseline wander in lead(s) V3 Electronic Signature: MD BAO, MARK MCGOVERN 07/23/2024 10:59:11 [facility] No data available for this section [facility] Evaluation noteNo assessment information available [place] Work Phone: Evaluation note* Diagnosis Onset Date Resolution Status Admit Date Lung mass acute December 27 10:33am Pleural effusion acute November 10:33am [facility] Work Phone: Hospital Discharge instructions No data available for this section [facility] Hospital Discharge instructionsAmbulatory Orders* Cardiovascular/Thoracic Surgery Location: None Selected [facility] Work Phone: Progress note No data available for this section [facility] Reason for referral (narrative)No reason for referral information [facility] Work Phone: Summary Purpose Family History No Family History Records Found Advance Directives No Advanced Directives Records FoundNo Advanced Directives Records Found Chief Complaint and Reason for Visit Chief Complaint Admit Date New Lung Mass December 27, 2024 10:3 3am Reason for Visit Admit Date Lung mass December 27, 2024 10:3 3am Pleural effusion December 27, 2024 10:3 3am Additional Source Comments Patient Care team informatio n (unrecognized section and content) Team Status: Active Member Role/Relationship Status Dates Dr. Michelet Hernandez DO Family Provider Active Dr. Michelet Hernandez DO Primary Care Provider Active Team Status: Inactive Member Role/Relationship Status Dates Dr. Michelet Hernandez DO Primary Care Provider Active Start: December 02, 2024 End: December 02, 2024 Dr. Michelet Hernandez DO Attending Provider Active Start: December 02, 2024 End: December 02, 2024 Team Status: Inactive Member Role/Relationship Status Dates Dr. Michelet Hernandez DO Primary Care Provider Active Start: December 27, 2024 End: December 27, 2024 Dr. Michelet Hernandez DO Referring Provider Active Start: December 27, 2024 End: December 27, 2024 Dr. Jason Wen DO Attending Provider Active S tart: December 27, 2024 End: December 27, 2024 Team Status: Active Member Role/Relationship Status Dates Dr. Michelet Hernandez DO Primary Care Provider Active Start: December 27, 2024 Dr. Jason Wen DO Attending Provider Active S tart: December 27, 2024 Dr. Jason Wen DO Referring Provider Active S tart: December 27, 2024 Goals (unrecognized section and content) Goals may be documented in a n alternate section (unrecognized sect ion and content) No Status Records FoundNo Status Records Found INFORMATION SOURCE (unrecogn ized section and content) DATE CREATED AUTHOR 12/13/2024 [facility] DATE CREATED AUTHOR AUTHOR'S MAI JUAREZ 12/24/2024 [facility] FOR RECORDS PERTAINING TO PATIENTS WHO ARE OR HAVE BEEN ENROLLED IN A CHEMICAL DEPENDENCY/SUBSTANCEABUSE PROGRAM, SOME INFORMATION MAY BE OMITTED. This clinical summary was aggregated from multiple sources. Caution should be exercised in using it in the provision of clinical care. This summary normalizes information from multiple sources, and as a consequence, information in this document may materially change the coding, format and clinical context of patient data. In addition, data may be omitted in some cases. CLINICAL DECISIONS SHOULD BE BASED ON THE PRIMARY CLINICAL RECORDS. [employer] provides no warranty or guarantee of the accuracy or completeness of information in this document.
== END | disposition home or self-care (01) ==
LOC: LAB 11:48
PROVIDERS: PCP Family Medicine; Referring Provider Internal Medicine Critical Care Medicine; Visit Provider Internal Medicine Critical Care Medicine
DX: R91.8 Other nonspecific abnormal finding of lung field (principal)
CPT/HCPCS: 36415; 83615; 85049; 85610; 85730

== ENCOUNTER → 2024-12-30 | Outpatient (CLI) | payer MEDICARE, SELFPAY ==
--- NOTE | 2024-12-30 08:03 | US_ITS ---
PROCEDURE: THORACENTESIS W US 12/30/2024 REASON FOR EXAM: PLEURAL EFFUSION. Left pleural effusion TECHNIQUE: THORACENTESIS W US, diagnostic and therapeutic. COMPARISON: None. FINDINGS: Procedure: Following informed consent, and using standard sterile technique, an ultrasound- guided left thoracentesis was performed. 2% lidocaine local anesthesia was followed by placement of a 5 [place] catheter into the left pleural fluid collection via a posterior approach. A proximally 1160 mL light clear yellow fluid was successfully removed, a portion sent to the laboratory for evaluation. No complication was encountered, and the patient left the department in good condition without significant complaint. US/Thoracentesis W US IMPRESSION: Successful diagnostic and therapeutic ultrasound-guided left thoracentesis. La boratory results pending. Reading Location: [place] [id number]
--- OUTSIDE RECORDS SUMMARY | 2024-12-30 08:22 | XMS RPT_ITS | CCD ---
Author Organization [facility] Care Team Providers Care Steam Conditioner Filling Name Role Phone DR MICHELET HERNANDEZ DO Primary Care Physician David JOSE, Dr. Goncalves Primary Care Provider [phone] David JOSE, Dr. Goncalves Attending Provider [phone] DAVID JOSE, DR MICHELET Parker Primary Care Unavailab walter GORE MD, DR FLORES Attending Wesab walter HERNANDEZ DO, DR MICHELET Parker Attending Lennie Rod DO, DR MICHELET Parker Primary Care Unavailab Barb JOSE, Dr. Goncalves Referring Provider [phone] Behzad JOSE, Dr. Gomez Attending Provider [phone] Behzad JOSE, Dr. Gomez Referring Provider Michelet Hernandez Primary Care Unavailable Leslie Ashley Attending Unavailable David, Michelet Referring Unavailable David, Michelet Primary Care Unavailable DavidMichelet jennings Attending Unavailable Jason Wen Attending Unavailable Jason Wen Referring Unavailable David, Michelet Primary Care Unavailable David, Michelet Attending Unavailable David, Michelet Referring Unavailable David, Michelet Primary Care Unavailable David, Michelet Attending Unavailable David, Michelet Primary Care Unavailable Jason Wen Attending Unavailable Jason Wen Referring Unavailable David, Michelet Primary Care Unavailable Jason Wen Attending Unavailable David, Michelet Referring Unavailable David, Michelet Primary Care Unavailable Medications Current Medications Medication Drug Class(es) Dates Sig (Normalized) Sig (Original) Vit A,C,U-U4-Zgcj-Lut-Mi n-Glut 1000 unit-300mg -100 unit-2 mg tablet (1 source) Start: 12-27-2024 Vit A,C,D-T7-Iyef-Lut-M in-Glut 1000 unit-300mg -100 unit-2 mg tablet [...] 300 0 June 05, 2024 1:00am Problems Active Problems Problem Classification Problem Date Documented Da te Episodic/Chronic Chronic kidney disease (1 source) Chronic kidney disease; Translations: [Chronic kidney disease, stage 3b] Onset: 12-04-2024 Deficiency and other anemia (1 source) Anemia, unspecified; Translations: [Anemia, unspecified] Onset: 12-28-2024 Episodic Genitourinary symptoms and ill-defined conditions (1 source) Proteinuria, unspecified; Translations: [Proteinuria, unspecified] Onset: 12-04-2024 Episodic Malaise and fatigue (1 source) Other fatigue; Translations: [Other fatigue] Onset: 12-28-2024 Episodic Other diseases of kidney and ureters (1 source) Disorder of kidney and ureter, unspecified; Translations: [Disorder of kidney and ureter, unspecified] Onset: 12-28-2024 Episodic Other eye disorders (1 source) Other specified disorders of eye and adnexa; Translations: [Other specified disorders of eye and adnexa] Onset: 12-09-2024 Episodic Other hematologic conditions (1 source) Abnormality of globulin; Translations: [Abnormality of globulin] Onset: 12-04-2024 Episodic Other lower respiratory disease (3 sources) Lung mass; Translations: [Other nonspecific abnormal finding of lung field] Episodic Other lower respiratory disease (2 sources) Other nonspecific abnormal finding of lung field; Translations: [Other nonspecific abnormal finding of lung field] Onset: 12-27-2024 Episodic Other nutritional; endocrine; and metabolic disorders (1 source) Abnormal weight loss; Translations: [Abnormal weight loss] Onset: 12-28-2024 Episodic Other screening for suspected conditions (not mental disorders or infectious disease) (1 source) Elevated C-reactive protein (CRP); Translations: [Elevated C-reactive protein (CRP)] Onset: 12-28-2024 Episodic Pleurisy; pneumothorax; pulmonary collapse (3 sources) Pleural effusion; Translations: [Pleural effusion, not elsewhere classified] Onset: 12-27-2024 12-27-2024 Episodic Retinal detachments; defects; vascular occlusion; and retinopathy (1 source) Degenerative disorder of macula ; Translations: [Unspecified macular degeneration] 12-27-2024 Chronic Syncope (1 source) Syncope and collapse; Translations: [Syncope and collapse] Onset: 07-23-2024 Episodic Unclassified (2 sources) R91.8 - Other nonspecific abnormal finding of lung field Past or Other Problems Problem Classification Problem Date Documented Da te Episodic/Chronic Other upper respiratory infections (5 sources) Viral pharyngitis; Translations: [Acute pharyngitis due to other specified organisms] Onset: 06-05-2024 06-05-2024 Episodic Results Test Name Value Interpretation Reference Range Facility LDHon 12-27-2024 LDH 272 U/L High 87-241 [facility] Comment on above: Order Comment: 1 Performed By: #### L 501.9520, L100.0100, L101.9900, L501.6710, L500.4050, L501.9910, L400.2010, L3100.3425 #### [facility] [address] [place], [place], [id number] PLATELET COUNTon 12-27-2024 Platelets (Bld) [#/Vol] 358 10*3/uL Normal 150-450 [facility] Comment on above: Performed By: #### L 501.9520, L100.0100, L101.9900, L501.6710, L500.4050, L501.9910, L400.2010, L3100.3425 #### [facility] [address] [place], [place], [id number] Partial Thromboplast Timeon 12-27-2024 aPTT Coag (Bld) [Time] 38.7 s High 24.1-36.2 [facility] Comment on above: Performed By: #### L 501.9520, L100.0100, L101.9900, L501.6710, L500.4050, L501.9910, L400.2010, L3100.3425 #### [facility] [address] [place], [place], [id number] Prothrombin Time w/INRon INR Coag (PPP) [Relative time] 1.1 {INR} Normal [facility] Comment on above: Performed By: #### L 501.9520, L100.0100, L101.9900, L501.6710, L500.4050, L501.9910, L400.2010, L3100.3425 #### [facility] [address] [place], [place], [id number] PT Coag (PPP) [Time] 14.4 s Normal 11.7-14.9 [facility] Comment on above: Performed By: #### L 501.9520, L100.0100, L101.9900, L501.6710, L500.4050, L501.9910, L400.2010, L3100.3425 #### [facility] [address] [place], [place], [address] Pulmonary Visit Reporton Pulmonary Visit Report [facility] [place] [address] [place] [address] OFFICE VISIT Date of Service: 12/27/24 MR#: [id number] Acct: [id number] Name: JUJU HALL JOVNANY Rep #: [id number] : 1945 Provider: Dr. Jason Wen DO Age/Sex: 79/M Location: [facility] Status: Signed Assessment and Plan Assessment and Plan (1) Lung mass: Status: Acute Plan: The patient presented today for the evaluation of a lung mass which was identified on CT imaging completed through [facility] on December 21, 2024. That imaging study demonstrated a large mass in the prevascular mediastinal space with encroachment on the pulmonary arteries and an associated moderate pleural effusion. I am concerned that I would not be able to reach this lesion bronchoscopically to perform biopsy. Therefore, we will refer the patient to cardiothoracic surgery. In the interim, I am going to plan to proceed with ultrasound-guided thoracentesis of the moderate pleural effusion and sent for pleural fluid cytology. If positive, this would not only provide a diagnosis but a stage as well. Preprocedural lab work will be obtained. Referral will be placed to the office of Dr. Harvey at [facility]. (2) Pleural effusion: Status: Acute Plan: Proceed with ultrasound-guided thoracentesis as ordered. Pleural fluid studies, including cytology, will be sent. Orders: Orders PLATELET COUNT Today R91.8 - Other nonspecific abnormal finding of lung field Prothrombin Time w/INR Today R91.8 - Other nonspecific abnormal finding of lung field Partial Thromboplast Time Today R91.8 - Other nonspecific abnormal finding of lung field Thoracentesis W US Today J90 - Pleural effusion, not elsewhere classified, R91.8 - Other nonspecific abnormal finding of lung field LDH Today R91.8 - Other nonspecific abnormal finding of lung field LDH,Body Fluid Today R91.8 - Other nonspecific abnormal finding of lung field Protein, Body Fluid Today R91.8 - Other nonspecific abnormal finding of lung field Protein, Total Today R91.8 - Other nonspecific abnormal finding of lung field Body Fluid Cell Count+Diff Today R91.8 - Other nonspecific abnormal finding of lung field Culture, Body Fluid Today R91.8 - Other nonspecific abnormal finding of lung field Cytology, Body Fluid / CSF Today R91.8 - Other nonspecific abnormal finding of lung field Referrals Cardiovascular/Thoracic Surgery R91.8 - Other nonspecific abnormal finding of lung field HPI HPI Comments Details: The patient is an 79-year-old male who presents to the clinic today in referral for the evaluation of a lung mass. His is present at today's office visit. The patient reported that he has been losing weight unintentionally over the course the last several months. More specifically, the patient indicated that he has lost 10 to 12 pounds over the course of the last 3 months. He is a lifelong non-smoker. He did not grow up in a smoking household. He has never been diagnosed with any malignant processes. As part of his workup by his primary care provider, a contrasted chest CT was obtained on December 21, 2024. That imaging study demonstrated a moderate left-sided pleural effusion along with a large mediastinal mass in the prevascular space adjacent to the medial and anterior left pleura with encroachment on the pulmonary arteries. Accordingly, the patient was referred to our office for further evaluation. He currently denies any shortness of breath, chest tightness, wheezing or cough. His did indicate that his appetite has not been as good as it once was previously. Intake Vital Signs 06/05/24 10:09 12/27/24 07:14 Height 5 ft 8 in 5 ft 8 in Weight: 155 lb 8 oz BMI 23.6 BP 160/85 H Blood Pressure Location Lt brachial Position Sitting Respiration 18 Pulse 102 H Pulse Source Monitor Temp 97.4 F L Temperature Source Temporal Artery Pulse Oximetry (%) 95 Oxygen Delivery Method room air Intake Visit Reasons: New Lung Mass [facility] Required: No Accompanied by: Allergies No Known Allergies Allergy (Verified 12/27/24 10:38) Medications ???Medication ???Instructions ???Recorded ???Confirmed ???Type vit A 1000 unit-C 300 mg-E 100 tab PO 12/27/24 12/27/24 History geeh-E4-J0-lutn 2 hs-hjjx-vithxi tablet Have you fallen in the past year?: No PFSH Medical History (Updated 12/27/24 @ 11:[address] 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 Normal [facility] CT THORAX W/ CONTRASTon 12-01 CT THORAX [...] Date: 12/23/2024 8:44:38 AM Ordering Provider: MICHELET HERNANDEZ [facility] CT ABDOMEN/PELVIS W/CONTRAST on 12-22-2024 CT [...] 12/22/2024 10:03:43 AM Ordering Provider: MICHELET HERNANDEZ [facility] RADHA + Protein Tesha Nicolas 12-09-2024 Albumin [Mass/Vol] 3.5 g/dL Normal 2.9-4.[address] [facility] Comment on above: Order Comment: ADD ON PLEASE-SWRIGHT N Performed By: #### L 501.9520, L100.0100, L101.9900, L501.6710, L500.4050, L501.9910, L400.2010, L3100.3425 #### [facility] [address] [place], [address] Albumin/Globulin [Mass ratio] 0.9 {ratio} Normal 0.7-1.7 [facility] Comment on above: Order Comment: ADD ON PLEASE-SWRIGHT N Performed By: #### L 501.9520, L100.0100, L101.9900, L501.6710, L500.4050, L501.9910, L400.2010, L3100.3425 #### [facility] [address] [place], [address] CPYAR-7-IVBN 0.4 g/dL Normal 0.0-0.4 [facility] Comment on above: Order Comment: ADD ON PLEASE-SWRIGHT N Performed By: #### L 501.9520, L100.0100, L101.9900, L501.6710, L500.4050, L501.9910, L400.2010, L3100.3425 #### [facility] [address] [place], [address] TOIHA-0-JLQA 1.2 g/dL High 0.4-1.0 [facility] Comment on above: Order Comment: ADD ON PLEASE-SWRIGHT N Performed By: #### L 501.9520, L100.0100, L101.9900, L501.6710, L500.4050, L501.9910, L400.2010, L3100.3425 #### [facility] [address] [place], [address] BETA GLOBULIN 1.2 g/dL Normal 0.7-1.3 [facility] Comment on above: Order Comment: ADD ON PLEASE-SWRIGHT N Performed By: #### L 501.9520, L100.0100, L101.9900, L501.6710, L500.4050, L501.9910, L400.2010, L3100.3425 #### [facility] [address] [place], [address] GAMMA GLOBULIN 1.5 g/dL Normal 0.4-1.8 [facility] Comment on above: Order Comment: ADD ON PLEASE-SWRIGHT N Performed By: #### L 501.9520, L100.0100, L101.9900, L501.6710, L500.4050, L501.9910, L400.2010, L3100.3425 #### [facility] [address] [place], [address] Globulin (S) [Mass/Vol] 4.3 g/dL Abnormal 2.2-3.9 [facility] Comment on above: Order Comment: ADD ON PLEASE-SWRIGHT N Performed By: #### L 501.9520, L100.0100, L101.9900, L501.6710, L500.4050, L501.9910, L400.2010, L3100.3425 #### [facility] [address] [place], [address] RADHA RESULT,S Comment Abnormal . [facility] Comment on above: Order Comment: ADD ON PLEASE-SWRIGHT N Result Comment: Immu nofixation shows IgG monoclonal protein with lambda light chain specificity. Performed By: #### L 501.9520, L100.0100, L101.9900, L501.6710, L500.4050, L501.9910, L400.2010, L3100.3425 #### [facility] [address] [place], [address] IMMUNOGLOB A QN 275 mg/dL Normal 61-437 [facility] Comment on above: Order Comment: ADD ON PLEASE-SWRIGHT N Performed By: #### L 501.9520, L100.0100, L101.9900, L501.6710, L500.4050, L501.9910, L400.2010, L3100.3425 #### [facility] [address] [place], [address] IMMUNOGLOB G QN 1476 mg/dL Normal 603-1613 [facility] Comment on above: Order Comment: ADD ON PLEASE-SWRIGHT N Performed By: #### L 501.9520, L100.0100, L101.9900, L501.6710, L500.4050, L501.9910, L400.2010, L3100.3425 #### [facility] [address] [place], [address] IMMUNOGLOB M QN 70 mg/dL Normal 15-143 [facility] Comment on above: Order Comment: ADD ON PLEASE-SWRIGHT N Performed By: #### L 501.9520, L100.0100, L101.9900, L501.6710, L500.4050, L501.9910, L400.2010, L3100.3425 #### [facility] [address] [place], [address] M-Kvng 0.6 g/dL Abnormal Not Observed [facility] Comment on above: Order Comment: ADD ON PLEASE-SWRIGHT N Performed By: #### L 501.9520, L100.0100, L101.9900, L501.6710, L500.4050, L501.9910, L400.2010, L3100.3425 #### [facility] [address] [place], [place], [id number] NOTE: Comment Normal . [facility] Comment on above: Order Comment: ADD ON PLEASE-TAMMY Keller Result Comment: Prot ein electrophoresis scan will follow via computer, mail, or manager science delivery. Performed at: [facility] [address] [id number] Set Up Operator Tool: Torito Green PhD, Phone: [phone] Performed By: #### L 501.9520, L100.0100, L101.9900, L501.6710, L500.4050, L501.9910, L400.2011, L3100.3425 #### [facility] [address] [place], [place], [id number] Protein [Mass/Vol] 7.8 g/dL Normal 6.0-8.[address] [facility] Comment on above: Order Comment: ADD ON PLEASE-TAMMY N Performed By: #### L 501.9520, L100.0100, L101.9900, L501.6710, L500.4050, L501.9910, L400.2010, L3100.3425 #### [facility] [address] [place], [place], [id number] Absolute lymphocyte countOrd ered By: Michelet Hernandez on 12-02-2024 Lymphocytes Auto (Unsp spec) [#/Vol] 0.84 10*3/uL 0.83-4.51 [facility] Absolute neutrophil countOrd ered By: Michelet Hernandez on 12-02-2024 Neutrophils (Bld) [#/Vol] 6.0 10*3/uL 2.0-7.7 [facility] Albumin Elph [Mass/Vol]Order ed By: Michelet Hernandez on 12-02-2024 Albumin [Mass/Vol] 3.5 g/dL 2.9-4.[address] [facility] Anion gap in Serum or Plasma Ordered By: Michelet Hernandez on 12-02-2024 Anion gap [Moles/Vol] 16 mmol/L High 5-15 [facility] Automated lymphocyte count a s percentage of total leukocytesOrdered By: Michelet QuiñonesDavid on 12-02-2024 Lymphocytes/100 WBC Auto (Unsp spec) 10.8 % Low 19-41 [facility] BUN/creatinine ratioOrdered By: Michelet David on 12-02-2024 Urea nitrogen/Creatinine [Mass ratio] 18.3 mg/mg 10-20 [facility] Basophil percentageOrdered B y: Michelet QuiñoensDavid on 12-02-2024 Basophils/100 WBC (Bld) 0.6 % 0-1 [facility] Bilirubin Test strip Ql (U)O rdered By: Michelet Hernandez on 12-02-2024 Bilirubin Ql (U) Negative Negative [facility] Bilirubin, totalOrdered By: Michelet David on 12-02-2024 Bilirubin [Mass/Vol] 0.43 mg/dL 0.00-1.30 [facility] CBC W/Diff, Automatedon Absolute Lymph 0.84 X10 3/uL Normal 0.83-4.51 [facility] Comment on above: Performed By: #### L 501.9520, L100.0100, L101.9900, L501.6710, L500.4050, L501.9910, L400.2010, L3100.3425 #### [facility] [address] [place], [address] Absolute Neut 6.0 X10 3/uL Normal 2.0-7.7 [facility] Comment on above: Performed By: #### L 501.9520, L100.0100, L101.9900, L501.6710, L500.4050, L501.9910, L400.2010, L3100.3425 #### [facility] [address] [place], [address] Basophils/100 WBC (Bld) 0.6 % Normal 0-1 [facility] Comment on above: Performed By: #### L 501.9520, L100.0100, L101.9900, L501.6710, L500.4050, L501.9910, L400.2010, L3100.3425 #### [facility] [address] [place], [address] Eosinophils/100 WBC (Bld) 1.3 % Normal 0-5 [facility] Comment on above: Performed By: #### L 501.9520, L100.0100, L101.9900, L501.6710, L500.4050, L501.9910, L4.2010, L3100.3425 #### [facility] [address] [place], [address] Erythrocyte distribution width (RBC) [Ratio] 13.8 % Normal 11.6-14.6 [facility] Comment on above: Performed By: #### L 501.9520, L100.0100, L101.9900, L501.6710, L500.4050, L501.9910, L4, L3100.3425 #### [facility] [address] [place], [address] Hematocrit (Bld) [Volume fraction] 38.9 % Low 40-54 [facility] Comment on above: Performed By: #### L 501.9520, L100.0100, L101.9900, L501.6710, L500.4050, L501.9910, L4.2010, L3100.3425 #### [facility] [address] [place], [address] Hemoglobin (Bld) [Mass/Vol] 12.4 g/dL Low 13.0-16.5 [facility] Comment on above: Performed By: #### L 501.9520, L100.0100, L101.9900, L501.6710, L500.4050, L501.9910, L400.2010, L3100.3425 #### [facility] [address] [place], [address] IG% 0.300 Normal 0.0-0.9 [facility] Comment on above: Result Comment: IG% - Immature Granulocytes (promyelocytes, myelocytes and metamyelocytes) > 1% indicates that a LEFT SHIFT is Present. Performed By: #### L 501.9520, L100.0100, L101.9900, L501.6710, L500.4050, L501.9910, L400.2010, L3100.3425 #### [facility] [address] [place], [address] Lymphocytes/100 WBC (Bld) 10.8 % Low 19-41 [facility] Comment on above: Performed By: #### L 501.9520, L100.0100, L101.9900, L501.6710, L500.4050, L501.9910, L400.2010, L3100.3425 #### [facility] [address] [place], [address] MCH (RBC) [Entitic mass] 28.6 pg Normal 27.0-32.0 [facility] Comment on above: Performed By: #### L 501.9520, L100.0100, L101.9900, L501.6710, L500.4050, L501.9910, L400.2010, L3100.3425 #### [facility] [address] [place], [address] MCHC (RBC) [Mass/Vol] 31.9 g/dL Low 32-36 [facility] Comment on above: Performed By: #### L 501.9520, L100.0100, L101.9900, L501.6710, L500.4050, L501.9910, L400.2010, L3100.3425 #### [facility] [address] [place], [address] MCV (RBC) [Entitic vol] 89.6 fL Normal 80-94 [facility] Comment on above: Performed By: #### L 501.9520, L100.0100, L101.9900, L501.6710, L500.4050, L501.9910, L400.2010, L3100.3425 #### [facility] [address] [place], [address] Monocytes/100 WBC (Bld) 10.0 % Normal 0-10 [facility] Comment on above: Performed By: #### L 501.9520, L100.0100, L101.9900, L501.6710, L500.4050, L501.9910, L400.2010, L3100.3425 #### [facility] [address] [place], [address] Neutrophils/100 WBC (Bld) 77.0 % High 47-70 [facility] Comment on above: Performed By: #### L 501.9520, L100.0100, L101.9900, L501.6710, L500.4050, L501.9910, L400.2010, L3100.3425 #### [facility] [address] [place], [address] Nucleated RBC (Bld) [#/Vol] 0 10*3/uL Normal 0-5 [facility] Comment on above: Performed By: #### L 501.9520, L100.0100, L101.9900, L501.6710, L500.4050, L501.9910, L400.2010, L3100.3425 #### [facility] [address] [place], [address] Platelet mean volume (Bld) [Entitic vol] 10.4 fL Normal 6.2-12.0 [facility] Comment on above: Performed By: #### L 501.9520, L100.0100, L101.9900, L501.6710, L500.4050, L501.9910, L400.2010, L3100.3425 #### [facility] [address] [place], [address] Platelets (Bld) [#/Vol] 391 10*3/uL Normal 150-450 [facility] Comment on above: Performed By: #### L 501.9520, L100.0100, L101.9900, L501.6710, L500.4050, L501.9910, L400.2010, L3100.3425 #### [facility] [address] [place], [address] RBC (Bld) [#/Vol] 4.34 10*6/uL Low 4.6-6.2 [facility] Comment on above: Performed By: #### L 501.9520, L100.0100, L101.9900, L501.6710, L500.4050, L501.9910, L400.2010, L3100.3425 #### [facility] [address] [place], [address] RDW SD 45.2 fl High 35.1-43.9 [facility] Comment on above: Performed By: #### L 501.9520, L100.0100, L101.9900, L501.6710, L500.4050, L501.9910, L400.2010, L3100.3425 #### [facility] [address] [place], [address] WBC (Bld) [#/Vol] 7.8 10*3/uL Normal 4.4-11.[address] [facility] Comment on above: Performed By: #### L 501.9520, L100.0100, L101.9900, L501.6710, L500.4050, L501.9910, L400.2010, L3100.3425 #### [facility] [address] [place], [address] CRPon 12-02-2024 C-REACTIVE PROT 87.20 mg/L High 0.0-3.0 [facility] Comment on above: Performed By: #### L 501.9520, L100.0100, L101.9900, L501.6710, L500.4050, L501.9910, L400.2010, L3100.3425 #### [facility] [address] [place], [address] Carbon dioxide, total [Moles /volume] in Central venous bloodOrdered By: Michelet Hernandez on 12-02-2024 CO2 [Moles/Vol] 24.4 mmol/L 21.0-32.0 [facility] Chloride assayOrdered By: Ho Hernandez on 12-02-2024 Chloride [Moles/Vol] 98 mmol/L 98-108 [facility] Comprehensive Metabolic Prof ilon 12-02-2024 Albumin [Mass/Vol] 4.1 g/dL Normal 3.4-4.[address] [facility] Comment on above: Performed By: #### L 501.9520, L100.0100, L101.9900, L501.6710, L500.4050, L501.9910, L400, L3100.3425 #### [facility] [address] [place], [address] Albumin/Globulin [Mass ratio] 1.0 {ratio} Normal 0.9-2.4 [facility] Comment on above: Performed By: #### L 501.9520, L100.0100, L101.9900, L501.6710, L500.4050, L501.9910, L400.2010, L3100.3425 #### [facility] [address] [place], [address] ALK PHOS 131 U/L High 40-129 [facility] Comment on above: Performed By: #### L 501.9520, L100.0100, L101.9900, L501.6710, L500.4050, L501.9910, L400, L3100.3425 #### [facility] [address] [place], [address] ALT [Catalytic activity/Vol] 15 U/L Normal <=46 [facility] Comment on above: Performed By: #### L 501.9520, L100.0100, L101.9900, L501.6710, L500.4050, L501.9910, L400.2010, L3100.3425 #### [facility] [address] [place], [address] AST [Catalytic activity/Vol] 20 U/L Normal <=37 [facility] Comment on above: Performed By: #### L 501.9520, L100.0100, L101.9900, L501.6710, L500.4050, L501.9910, L400.2010, L3100.3425 #### [facility] [address] [place], [address] Bilirubin [Mass/Vol] 0.43 mg/dL Normal 0.00-1.30 [facility] Comment on above: Performed By: #### L 501.9520, L100.0100, L101.9900, L501.6710, L500.4050, L501.9910, L400.2010, L3100.3425 #### [facility] [address] [place], [address] BUN/CRE 18.3 RATIO Normal 10-20 [facility] Comment on above: Performed By: #### L 501.9520, L100.0100, L101.9900, L501.6710, L500.4050, L501.9910, L400.2010, L3100.3425 #### [facility] [address] [place], [address] Calcium [Mass/Vol] 10.7 mg/dL Normal 7.6-11.[address] [facility] Comment on above: Performed By: #### L 501.9520, L100.0100, L101.9900, L501.6710, L500.4050, L501.9910, L400.2010, L3100.3425 #### [facility] [address] [place], [address] Chloride [Moles/Vol] 98 mmol/L Normal 98-108 [facility] Comment on above: Performed By: #### L 501.9520, L100.0100, L101.9900, L501.6710, L500.4050, L501.9910, L400.2010, L3100.3425 #### [facility] [address] [place], [address] CO2 [Moles/Vol] 24.4 mmol/L Normal 21.0-32.0 [facility] Comment on above: Performed By: #### L 501.9520, L100.0100, L101.9900, L501.6710, L500.4050, L501.9910, L400.2010, L3100.3425 #### [facility] [address] [place], [address] Creatinine [Mass/Vol] 1.60 mg/dL High 0.70-1.20 [facility] Comment on above: Performed By: #### L 501.9520, L100.0100, L101.9900, L501.6710, L500.4050, L501.9910, L400.2010, L3100.3425 #### [facility] [address] [place], [address] GAP 16 High 5-15 [facility] Comment on above: Performed By: #### L 501.9520, L100.0100, L101.9900, L501.6710, L500.4050, L501.9910, L400.2010, L3100.3425 #### [facility] [address] [place], [address] GFR/1.73 sq M.predicted among non-blacks MDRD (S/P/Bld) [Vol rate/Area] 43 mL/min/{1.73_m2} Low >60 [facility] Comment on above: Result Comment: mL/m in/1.73m2 CKD-EPI Creatinine Equation (2020) Performed By: #### L 501.9520, L100.0100, L101.9900, L501.6710, L500.4050, L501.9910, L400.2010, L3100.3425 #### [facility] [address] [place], [address] Globulin (S) [Mass/Vol] 4.3 g/dL High 2.2-4.2 [facility] Comment on above: Performed By: #### L 501.9520, L100.0100, L101.9900, L501.6710, L500.4050, L501.9910, L400.2010, L3100.3425 #### [facility] [address] [place], [address] Glucose [Mass/Vol] 97 mg/dL Normal 70-[address] [facility] Comment on above: Performed By: #### L 501.9520, L100.0100, L101.9900, L501.6710, L500.4050, L501.9910, L400.2010, L3100.3425 #### [facility] [address] [place], [address] Potassium [Moles/Vol] 4.7 mmol/L Normal 3.3-5.1 [facility] Comment on above: Performed By: #### L 501.9520, L100.0100, L101.9900, L501.6710, L500.4050, L501.9910, L400.2010, L3100.3425 #### [facility] [address] [place], [address] Sodium [Moles/Vol] 139 mmol/L Normal 133-[address] [facility] Comment on above: Performed By: #### L 501.9520, L100.0100, L101.9900, L501.6710, L500.4050, L501.9910, L400.2010, L3100.3425 #### [facility] [address] [place], [address] T PROT 8.4 g/dL Normal 5.9-8.4 [facility] Comment on above: Performed By: #### L 501.9520, L100.0100, L101.9900, L501.6710, L500.4050, L501.9910, L400.2010, L3100.3425 #### [facility] [address] [place], [address] Urea nitrogen [Mass/Vol] 29 mg/dL High 4-19 [facility] Comment on above: Performed By: #### L 501.9520, L100.0100, L101.9900, L501.6710, L500.4050, L501.9910, L400.2010, L3100.3425 #### [facility] [address] [place], [address] Eosinophil percentageOrdered By: Micehlet Hernandez on 12-02-2024 Eosinophils/100 WBC (Bld) 1.3 % 0-5 [facility] Erythrocyte Sed Rateon 12-02 SED RATE 42 mm/hr High 0-20 [facility] Comment on above: Performed By: #### L 501.9520, L100.0100, L101.9900, L501.6710, L500.4050, L501.9910, L400.2010, L3100.3425 #### [facility] [address] [place], [address] Erythrocyte distribution wid th ratioOrdered By: Michelet Hernandez on 12-02-2024 Erythrocyte distribution width (RBC) [Ratio] 13.8 % 11.6-14.6 [facility] Erythrocyte distribution wid th standard deviationOrdered By: Michelet Hernandez on 12-02-2024 Erythrocyte distribution width (RBC) [Ratio] 45.2 fl High 35.1-43.9 [facility] Erythrocyte sedimentation ra teOrdered By: Michelet Hernandez on 12-02-2024 ESR (Bld) [Velocity] 42 mm/h High 0-20 [facility] Glomerular filtration rate ( GFR) estimation/1.73 sq m using serum, plasma, or whole bOrdered By: Michelet Hernandez on 12-02-2024 GFR/1.73 sq M.predicted among non-blacks MDRD (S/P/Bld) [Vol rate/Area] 43 mL/min/{1.73_m2} Low >60 [facility] Comment on above: mL/min/1.73m2 CKD-EP I Creatinine Equation (2020) Hematocrit Auto (Bld) [Volum e fraction]Ordered By: Michelet Hernandez on 12-02-2024 Hematocrit (Bld) [Volume fraction] 38.9 % Low 40-54 [facility] Hemoglobin measurementOrdere d By: Michelet Hernandez on 12-02-2024 Hemoglobin (Bld) [Mass/Vol] 12.4 g/dL Low 13.0-16.5 [facility] Immature granulocytes/100 WB C Auto (Bld)Ordered By: Michelet Hernandez on 12-02-2024 Immature granulocytes/100 WBC (Bld) 0.300 % 0.0-0.9 [facility] Comment on above: IG% - Immature Granu locytes (promyelocytes, myelocytes and metamyelocytes) > 1% indicates that a LEFT SHIFT is Present. Interpretation of serum or p lasma protein pattern by immunofixation (narrative resultOrdered By: Michelet Hernandez on 12-02-2024 Protein Fractions Immunofixation Ko [Interp] 0.6 g/dL High Not Observed [facility] Ketones Test strip Ql (U)Ord ered By: Michelet Hernandez on 12-02-2024 Ketones Ql (U) 5 mg/dl High Negative [facility] - Chemistry and C hemistry - challengeOrdered By: Michelet Hernandez on 12-02-2024 AST [Catalytic activity/Vol] 20 U/L <38 [facility] MCV (mean corpuscular volume ) determinationOrdered By: Michelet Hernandez on 12-02-2024 MCV (RBC) [Entitic vol] 89.6 fL 80-94 [facility] Mean corpuscular hemoglobin (MCH) determinationOrdered By: Michelet Hernandez on 12-02-2024 MCH (RBC) [Entitic mass] 28.6 pg 27.0-32.0 [facility] Mean corpuscular hemoglobin concentration (MCHC) determinationOrdered By: Michelet Hernandez on 12-02-2024 MCHC (RBC) [Mass/Vol] 31.9 g/dL Low 32-36 [facility] Mean platelet volume determi nationOrdered By: Michelet Hernandez on 12-02-2024 Platelet mean volume (Bld) [Entitic vol] 10.4 fL 6.2-12.0 [facility] Monocyte percentageOrdered B y: Michelet Hernandez on 12-02-2024 Monocytes/100 WBC (Bld) 10.0 % 0-10 [facility] Neutrophil percentageOrdered By: Michelet Hernandez on 12-02-2024 Neutrophils/100 WBC (Bld) 77.0 % High 47-70 [facility] No Panel InformationOrdered By: Michelet Hernandez on 12-02-2024 Addendum Document Comment . [facility] Comment on above: Protein electrophore sis scan will follow via computer,mail, or manager science delivery.Performed at: [address] [id number] Director: Torito Green PhD, Phone: [phone] Nucleated red blood cell per centageOrdered By: Michelet Hernandez on 12-02-2024 Nucleated RBC/100 WBC (Bld) [Ratio] 0 % 0-5 [facility] PSA,Total - Annual Screenon 12-02-2024 PSA,TOT SCREEN 3.39 ng/mL Normal 0.02-4.00 [facility] Comment on above: Result Comment: This test [...] confirm baseline values. Performed By: #### L 501.9520, L100.0100, L101.9900, L501.6710, L500.4050, L501.9910, L400.2011, L3100.3425 #### [facility] [place], [address] Platelet countOrdered By: Ho Hernandez on 12-02-2024 Platelets (Bld) [#/Vol] 391 10*3/uL 150-450 [facility] Potassium measurement (mass/ volume)Ordered By: Michelet Hernandez on 12-02-2024 Potassium (Unsp spec) [Mass/Vol] 4.7 mmol/L 3.3-5.1 [facility] Protein Test strip Ql (U)Ord ered By: Michelet Hernandez on 12-02-2024 Protein Ql (U) 15 mg/dl High Negative [facility] RBC Auto (Bld) [#/Vol]Ordere d By: Michelet Hernandez on 12-02-2024 RBC (Bld) [#/Vol] 4.34 10*6/uL Low 4.6-6.2 [facility] Serum creatinine measurement (mass/volume)Ordered By: Michelet Hernandez on 12-02-2024 Creatinine [Mass/Vol] 1.60 mg/dL High 0.70-1.20 [facility] Serum globulin measurement ( mass/volume)Ordered By: Michelet Hernandez on 12-02-2024 Globulin (S) [Mass/Vol] 4.3 g/dL High 2.2-3.9 [facility] Serum glucose measurement (m ass/volume)Ordered By: Michelet Hernandez on 12-02-2024 Glucose [Mass/Vol] 97 mg/dL 70-[address] [facility] Serum or plasma C reactive p rotein measurement (mass/volume)Ordered By: Michelet Hernandez on 12-02-2024 CRP [Mass/Vol] 87.20 mg/L High 0.0-3.0 [facility] Serum or plasma IgA measurem ent (mass/volume)Ordered By: Michelet Hernandez on 12-02-2024 IgA [Mass/Vol] 275 mg/dL 61-437 [facility] Serum or plasma IgG measurem ent (mass/volume)Ordered By: Michelet Hernandez on 12-02-2024 IgG [Mass/Vol] 1476 mg/dL 603-1613 [facility] Serum or plasma alanine keen otransferase (ALT) measurementOrdered By: Michelet Hernandez on 12-02-2024 ALT [Catalytic activity/Vol] 15 U/L <47 [facility] Serum or plasma albumin emma urement (mass/volume)Ordered By: Michelet Hernandez on 12-02-2024 Albumin [Mass/Vol] 4.1 g/dL 3.4-4.[address] [facility] Serum or plasma albumin/glob ulin mass ratioOrdered By: Michelet Hernandez on 12-02-2024 Albumin/Globulin [Mass ratio] 1.0 {ratio} 0.9-2.4 [facility] Serum or plasma alkaline david sphatase measurementOrdered By: Michelet Hernandez on 12-02-2024 ALP [Catalytic activity/Vol] 131 U/L High 40-129 [facility] Serum or plasma alpha 1 glob ulin measurement by electrophoresis (mass/volume)Ordered By: Michelet Hernandez on 12-02-2024 Alpha 1 globulin Elph [Mass/Vol] 0.4 g/dL 0.0-0.4 [facility] Alpha 1 globulin Elph [Mass/Vol] 1.2 g/dL High 0.4-1.0 [facility] Serum or plasma beta globuli n measurement by electrophoresis (mass/volume)Ordered By: Michelet Hernandez on 12-02-2024 Beta globulin Elph [Mass/Vol] 1.2 g/dL 0.7-1.3 [facility] Serum or plasma calcium emma urement (mass/volume)Ordered By: Michelet Hernandez on 12-02-2024 Calcium [Mass/Vol] 10.7 mg/dL 7.6-11.[address] [facility] Serum or plasma gamma globul in measurement by electrophoresis (mass/volume)Ordered By: Michelet Hernandez on 12-02-2024 Gamma globulin Elph [Mass/Vol] 1.5 g/dL 0.4-1.8 [facility] Serum or plasma immunoelectr ophoresis interpretation (nominal result)Ordered By: Michelet Hernandez on 12-02-2024 Interpretation IEP [Interp] Comment High . [facility] Comment on above: Immunofixation shows IgG monoclonal protein with lambdalight chain specificity. Serum or plasma protein emma urement (mass/volume)Ordered By: Michelet Hernandez on 12-02-2024 Protein [Mass/Vol] 7.8 g/dL 6.0-8.[address] [facility] Serum or plasma urea nitroge n measurement (mass/volume)Ordered By: Michelet Hernandez on 12-02-2024 Urea nitrogen [Mass/Vol] 29 mg/dL High 4-19 [facility] Sodium levelOrdered By: Michelet Hernandez on 12-02-2024 Sodium [Moles/Vol] 139 mmol/L 133-[address] [facility] TSH DL <= 0.005 mIU/L QnOrde red By: Michelet Hernandez on 12-02-2024 TSH Qn 1.310 uIU/mL 0.300-4.200 [facility] Thyroid Stim Hormone (TSH)on 12-02-2024 TSH 1.310 uIU/mL Normal 0.300-4.200 [facility] Comment on above: Performed By: #### L 501.9520, L100.0100, L101.9900, L501.6710, L500.4050, L501.9910, L400.2010, L3100.3425 #### [facility] [address] [place], [place], [id number] Total proteinOrdered By: Shakira Hernandez on 12-02-2024 Protein [Mass/Vol] 8.4 g/dL 5.9-8.[address] [facility] Urinalysis, Routine (Dipstic k)on 12-02-2024 BILIRUBIN URINE Negative Normal Negative [facility] Comment on above: Order Comment: CLEAN CATCH Performed By: #### L 501.9520, L100.0100, L101.9900, L501.6710, L500.4050, L501.9910, L400.2010, L3100.3425 #### [facility] [address] [place], [address] GLUCOSE, UR Normal Normal Normal [facility] Comment on above: Order Comment: CLEAN CATCH Performed By: #### L 501.9520, L100.0100, L101.9900, L501.6710, L500.4050, L501.9910, L400.2010, L3100.3425 #### [facility] [address] [place], [address] KETONE UR 5 mg/dl Abnormal Negative [facility] Comment on above: Order Comment: CLEAN CATCH Performed By: #### L 501.9520, L100.0100, L101.9900, L501.6710, L500.4050, L501.9910, L400.2010, L3100.3425 #### [facility] [address] [place], [address] LEUK ESTERASE Negative Normal Negative [facility] Comment on above: Order Comment: CLEAN CATCH Performed By: #### L 501.9520, L100.0100, L101.9900, L501.6710, L500.4050, L501.9910, L400.2010, L3100.3425 #### [facility] [address] [place], [address] OCCULT BLOOD-UR Negative Normal Negative [facility] Comment on above: Order Comment: CLEAN CATCH Performed By: #### L 501.9520, L100.0100, L101.9900, L501.6710, L500.4050, L501.9910, L400.2010, L3100.3425 #### [facility] [address] [place], [address] pH UR 5.0 Normal 5.0 - 8.0 [facility] Comment on above: Order Comment: CLEAN CATCH Performed By: #### L 501.9520, L100.0100, L101.9900, L501.6710, L500.4050, L501.9910, L400.2010, L3100.3425 #### [facility] [address] [place], [address] PROT DIPSTX 15 mg/dl Abnormal Negative [facility] Comment on above: Order Comment: CLEAN CATCH Performed By: #### L 501.9520, L100.0100, L101.9900, L501.6710, L500.4050, L501.9910, L400.2010, L3100.3425 #### [facility] [address] [place], [address] SP.GR. DIPSTX 1.020 Normal 1.002-1.030 [facility] Comment on above: Order Comment: CLEAN CATCH Performed By: #### L 501.9520, L100.0100, L101.9900, L501.6710, L500.4050, L501.9910, L400.2010, L3100.3425 #### [facility] [address] [place], [address] UROBIL[address] Normal Normal Normal [facility] Comment on above: Order Comment: CLEAN CATCH Performed By: #### L 501.9520, L100.0100, L101.9900, L501.6710, L500.4050, L501.9910, L400.2010, L3100.3425 #### [facility] [address] [place], [address] Urine clarityOrdered By: Shakira Hernandez on 12-02-2024 Clarity (U) Clear Normal Clear [facility] Comment on above: Order Comment: CLEAN CATCH Performed By: #### L 501.9520, L100.0100, L101.9900, L501.6710, L500.4050, L501.9910, L400.2010, L3100.3425 #### [facility] [address] [place], [address] Urine color determinationOrd ered By: Michelet Hernandez on 12-02-2024 Color (U) Straw Normal Yellow [facility] Comment on above: Order Comment: CLEAN CATCH Performed By: #### L 501.9520, L100.0100, L101.9900, L501.6710, L500.4050, L501.9910, L400.2011, L3100.3425 #### [facility] [address] [place], [place], [id number] Urine glucose detectionOrder ed By: Michelet Hernandez on 12-02-2024 Glucose Ql (U) Normal mg/dl Normal [facility] Urine leukocyte esterase det ection by dipstickOrdered By: Michelet Hernandez on 12-02-2024 Leukocyte esterase Test strip Ql (U) Negative Negative [facility] Urine nitrite test by dipsti ckOrdered By: Michelet Hernandez on 12-02-2024 Nitrite Ql (U) Negative Normal Negative [facility] Comment on above: Order Comment: CLEAN CATCH Performed By: #### L 501.9520, L100.0100, L101.9900, L501.6710, L500.4050, L501.9910, L400.2010, L3100.3425 #### [facility] [address] [place], [place], [id number] Urine pHOrdered By: Michelet bear on 12-02-2024 pH (U) 5.0 [pH] 5.0 - 8.0 [facility] Urine specific gravity measu rementOrdered By: Michelet Hernandez on 12-02-2024 Specific gravity (U) [Rel density] 1.020 1.002-1.030 [facility] Urine urobilinogen measureme ntOrdered By: Michelet Hernandez on 12-02-2024 Urobilinogen Ql (U) Normal mg/dl Normal [facility] White blood cell (WBC) count Ordered By: Michelet Hernandez on 12-02-2024 WBC (Bld) [#/Vol] 7.8 10*3/uL 4.4-11.[address] [facility] .Auto Diffon 07-23-2024 Basophil, Absolute 0.0 10 3/mcL Normal 0.0-0.2 [facility] Comment on above: Performed By: #### M DW, BMP, ADIFF, CBC, ANEU, GFR, TROPHS #### [address] [address] Basophils/100 WBC (Bld) 0.3 % Normal 0.0-2.5 [facility] Comment on above: Performed By: #### M DW, BMP, ADIFF, CBC, ANEU, GFR, TROPHS #### [address] [address] Eosinophil, Absolute 0.2 10 3/mcL Normal 0.0-0.7 [facility] Comment on above: Performed By: #### M DW, BMP, ADIFF, CBC, ANEU, GFR, TROPHS #### [address] [address] Eosinophils/100 WBC (Bld) 3.3 % Normal 0.0-7.0 [facility] Comment on above: Performed By: #### M DW, BMP, ADIFF, CBC, ANEU, GFR, TROPHS #### [address] [address] Lymphocyte, Absolute 0.6 10 3/mcL Low 0.9-4.3 [facility] Comment on above: Performed By: #### M DW, BMP, ADIFF, CBC, ANEU, GFR, TROPHS #### [address] [address] Lymphocytes/100 WBC (Bld) 9.0 % Low 20.0-40.0 [facility] Comment on above: Performed By: #### M DW, BMP, ADIFF, CBC, ANEU, GFR, TROPHS #### [address] [address] Monocyte, Absolute 0.5 10 3/mcL Normal 0.1-1.4 [facility] Comment on above: Performed By: #### M DW, BMP, ADIFF, CBC, ANEU, GFR, TROPHS #### [address] [address] Monocytes/100 WBC (Bld) 7.4 % Normal 2.0-13.0 [facility] Comment on above: Performed By: #### M DW, BMP, ADIFF, CBC, ANEU, GFR, TROPHS #### [address] [address] Neutrophils/100 WBC (Bld) 80.0 % High 50.0-75.0 [facility] Comment on above: Performed By: #### M DW, BMP, ADIFF, CBC, ANEU, GFR, TROPHS #### [address] [address] .GFRon 07-23-2024 Estimated Glomerular Filtration Rate 69 ml/min/1.73sqm Normal [facility] Comment on above: Result Comment: Stages [...] BMP, ADIFF, CBC, ANEU, GFR, TROPHS #### [address] [address] .MDWon 07-23-2024 Monocyte Distribution Width 17.36 Normal 0.00-20.00 [facility] Comment on above: Result Comment: For ED adult patients suspected of sepsis, MDW<=20.0 does not rule out sepsis or risk of sepsis Performed By: #### M DW, BMP, ADIFF, CBC, ANEU, GFR, TROPHS #### [address] [address] .NEUABSon 07-23-2024 Neutrophil, Absolute 5.0 10 3/mcL Normal 2.3-8.1 [facility] Comment on above: Performed By: #### M DW, BMP, ADIFF, CBC, ANEU, GFR, TROPHS #### [address] [address] BMPon 07-23-2024 BUN/Creatinine Ratio 15 ratio Normal 7-27 [facility] Comment on above: Performed By: #### M DW, BMP, ADIFF, CBC, ANEU, GFR, TROPHS #### [address] [address] Calcium [Mass/Vol] 9.2 mg/dL Normal 8.4-10.2 [facility] Comment on above: Performed By: #### M DW, BMP, ADIFF, CBC, ANEU, GFR, TROPHS #### [address] [address] Chloride [Moles/Vol] 104 mmol/L Normal 98-107 [facility] Comment on above: Performed By: #### M DW, BMP, ADIFF, CBC, ANEU, GFR, TROPHS #### [address] [address] CO2 [Moles/Vol] 30 mmol/L Normal 23-31 [facility] Comment on above: Performed By: #### M DW, BMP, ADIFF, CBC, ANEU, GFR, TROPHS #### [address] [address] Creatinine [Mass/Vol] 1.08 mg/dL Normal 0.70-1.30 [facility] Comment on above: Result Comment: Test ing performed on Siemens Dimension EXL analyzer using a modified kinetic Miguelina technique. Performed By: #### M DW, BMP, ADIFF, CBC, ANEU, GFR, TROPHS #### [address] [address] Electrolyte Balance 4.0 mEq/L Normal 4.0-15.0 [facility] Comment on above: Performed By: #### M DW, BMP, ADIFF, CBC, ANEU, GFR, TROPHS #### [address] [address] Glucose [Mass/Vol] 153 mg/dL High 83-110 [facility] Comment on above: Performed By: #### M DW, BMP, ADIFF, CBC, ANEU, GFR, TROPHS #### [address] [address] Potassium [Moles/Vol] 4.3 mmol/L Normal 3.5-5.1 [facility] Comment on above: Performed By: #### M DW, BMP, ADIFF, CBC, ANEU, GFR, TROPHS #### [address] [address] Sodium [Moles/Vol] 138 mmol/L Normal 136-145 [facility] Comment on above: Performed By: #### M DW, BMP, ADIFF, CBC, ANEU, GFR, TROPHS #### [place] [address] Urea nitrogen [Mass/Vol] 16 mg/dL Normal 7-18 [facility] Comment on above: Performed By: #### M DW, BMP, ADIFF, CBC, ANEU, GFR, TROPHS #### [address] [address] CBCon 07-23-2024 Erythrocyte distribution width (RBC) [Ratio] 14.1 % Normal 11.5-15.5 [facility] Comment on above: Performed By: #### M DW, BMP, ADIFF, CBC, ANEU, GFR, TROPHS #### [address] [address] Hematocrit (Bld) [Volume fraction] 39.6 % Low 40.0-52.0 [facility] Comment on above: Performed By: #### M DW, BMP, ADIFF, CBC, ANEU, GFR, TROPHS #### [address] [address] Hgb 13.5 G/dL Normal 13.0-17.5 [facility] Comment on above: Performed By: #### M DW, BMP, ADIFF, CBC, ANEU, GFR, TROPHS #### [address] [address] MCH (RBC) [Entitic mass] 30.5 pg Normal 27.0-33.0 [facility] Comment on above: Performed By: #### M DW, BMP, ADIFF, CBC, ANEU, GFR, TROPHS #### [address] [address] MCHC 34.0 G/dL Normal 32.0-36.0 [facility] Comment on above: Performed By: #### M DW, BMP, ADIFF, CBC, ANEU, GFR, TROPHS #### [address] [address] MCV (RBC) [Entitic vol] 89.7 fL Normal 81.0-100.0 [facility] Comment on above: Performed By: #### M DW, BMP, ADIFF, CBC, ANEU, GFR, TROPHS #### [address] [address] Platelet 288 10 3/mcL Normal 150-450 [facility] Comment on above: Performed By: #### M DW, BMP, ADIFF, CBC, ANEU, GFR, TROPHS #### [address] [address] Platelet mean volume (Bld) [Entitic vol] 7.2 fL Normal 6.4-10.5 [facility] Comment on above: Performed By: #### M DW, BMP, ADIFF, CBC, ANEU, GFR, TROPHS #### [address] [address] RBC 4.41 10 6/mcL Low 4.50-6.00 [facility] Comment on above: Performed By: #### M DW, BMP, ADIFF, CBC, ANEU, GFR, TROPHS #### [address] [address] WBC 6.2 10 3/mcL Normal 4.5-10.8 [facility] Comment on above: Performed By: #### M DW, BMP, ADIFF, CBC, ANEU, GFR, TROPHS #### [address] [place], [place] [address] CT HEAD OR BRAIN W/O CONTRAS Ton [...] 9:25:53 AM Ordering Provider: MARK Jean Baptiste [facility] LABORATORYOrdered By: Wilbert Farooq on 07-23-2024 [...] ng/L Male: 0-76 ng/L Testing performed on Job36 using a homogeneous sandwich chemiluminescent immunoassay based on [employer] technology. Urea nitrogen [Mass/Vol] 16 mg/dL Normal [...] Sensitivity Troponin I 42 ng/L Normal 0-76 [facility] Comment on above: Order Comment: hemol yzed Result Comment: High Sensitive Troponin I Reference Ranges: Female: 0-51 ng/L Male: 0-76 ng/L Testing performed on Dimension EX using a homogeneous sandwich chemiluminescent immunoassay based on [employer] technology. Performed By: #### M DW, BMP, ADIFF, CBC, ANEU, GFR, TROPHS #### [address] [address] UAon 07-23-2024 Color (U) Yellow Normal [facility] Comment on above: Performed By: #### U A #### [address] [address] Glucose (U) [Mass/Vol] Negative Normal Negative [facility] Comment on above: Performed By: #### U A #### [address] [address] Ketones Ql (U) Negative Normal Negative [facility] Comment on above: Performed By: #### U A #### [address] [address] UA Appear Clear Normal Clear [facility] Comment on above: Performed By: #### U A #### [address] [address] UA Blood Negative Normal Negative [facility] Comment on above: Performed By: #### U A #### [place] [address] UA Leuk Est Negative Normal Negative [facility] Comment on above: Performed By: #### U A #### [address] [place] [address] UA Nitrite Negative Normal Negative [facility] Comment on above: Performed By: #### U A #### [address] [place] [address] UA pH 6.5 Normal 5.0 - 8.0 [facility] Comment on above: Performed By: #### U A #### [address] [place] [address] UA Protein Negative Normal Negative [facility] Comment on above: Performed By: #### U A #### [address] [place] [address] UA Spec Grav 1.020 Normal 1.015-1.025 [facility] Comment on above: Performed By: #### U A #### [place] [address] UA Specimen Type Clean Catch Normal [facility] Comment on above: Performed By: #### U A #### [address] [address] UA Urobilinogen 0.2 E.U./dL Normal 0.2-1.0 [facility] Comment on above: Performed By: #### U A #### [address] [place] [address] Urobilinogen (U) [Mass/Vol] Negative Normal Negative [facility] Comment on above: Performed By: #### U A #### [place] [id number] [place], [place] [address] Urgent Care Visit Reporton 0 06-05-2024 Urgent Care Visit Report [facility] [address], [address] [place] [address] OFFICE VISIT Date of Service: 06/05/24 MR#: [id number] Acct: [id number] Name: JUJU HALL Rep #: [id number] : 1945 Provider: GIRMA Ashley Age/Sex: 78/M Location: [facility] Status: Signed Intake Vital Signs 06/05/24 10:09 Height 5 ft 8 in Weight: 171 lb BMI 25.9 BP 122/74 H Blood Pressure Location Lt brachial Position Sitting Respiration 12 Pulse 86 Pulse Source NIBP Temp 97.8 F Temp Source Oral Pulse Oximetry (%) 98 Oxygen Delivery Method room air Intake Visit Reasons: SORE 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 Normal [facility] Vital Signs Date Time Vital Sign Value Performing Clinician Facility 12-27-2024 07:14-0400 Body height 172.[address] Michelet Hernandez DO Work Phone: [facility] 12-27-2024 07:14-0400 Body mass index (BMI) [Ratio] 23.6 kg/m2 Dr. Michelet Hernandez DO Work Phone: [facility] 12-27-2024 07:14-0400 Body temperature 97.4 [degF] Dr. Michelet Hernandez DO Work Phone: [facility] 12-27-2024 07:14-0400 Body weight 70.[address] Michelet Hernandez DO Work Phone: [facility] 12-27-2024 07:14-0400 Diastolic blood pressure 85 mm[Hg] Dr. Michelet Hernandez DO Work Phone: [facility] 12-27-2024 07:14-0400 Heart rate 102 /min Dr. Michelet Hernandez DO Work Phone: [facility] 12-27-2024 07:14-0400 Respiratory rate 18 /min Dr. Michelet Hernandez DO Work Phone: [facility] 12-27-2024 07:14-0400 SaO2% (BldA) [Mass fraction] 95 % Dr. Michelet Hernandez DO Work Phone: [facility] 12-27-2024 07:14-0400 Systolic blood pressure 160 mm[Hg] Dr. Michelet Hernandez DO Work Phone: [facility] 07-23-2024 11:11-0500 Diastolic Blood Pressure Non-Invasive 70 mm[Hg] DR MARK GORE MD [facility] 07-23-2024 11:11-0500 Heart rate 72 /min DR MARK GORE MD [facility] 07-23-2024 11:11-0500 Respiratory rate 16 /min DR MARK GORE MD [facility] 07-23-2024 11:11-0500 Systolic Blood Pressure Non-Invasive 118 mm[Hg] DR MARK GORE MD [facility] 07-23-2024 10:13-0500 Diastolic Blood Pressure Non-Invasive 71 mm[Hg] DR MARK GORE MD [facility] 07-23-2024 10:13-0500 Heart rate 85 /min DR MARK GORE MD [facility] 07-23-2024 10:13-0500 Respiratory rate 16 /min DR MARK GORE MD [facility] 07-23-2024 10:13-0500 Systolic Blood Pressure Non-Invasive 123 mm[Hg] DR MARK GORE MD [facility] 07-23-2024 08:05-0500 Body temperature 97.16 [degF] DR MARK GORE MD [facility] 07-23-2024 08:05-0500 Body weight 77.[address] MARK GORE MD [facility] 07-23-2024 08:05-0500 Diastolic Blood Pressure Non-Invasive 68 mm[Hg] DR MARK GORE MD [facility] 07-23-2024 08:05-0500 Heart rate 73 /min DR MARK GORE MD [facility] 07-23-2024 08:05-0500 Respiratory rate 14 /min DR MARK GORE MD [facility] 07-23-2024 08:05-0500 Systolic Blood Pressure Non-Invasive 122 mm[Hg] DR MARK GORE MD [facility] Encounters Encounter Date Encounter Type Care Provider Facility Start: 01-03-2025 ambulatory Michelet Hernandez Facility: [facility] Start: 12-30-2024 ambulatory Jason Wen Facility:[facility] Start: 12-27-[address] Jason Wen DO -Laboratory Work Phone: Start: 12-27-2024 ambulatory Jason Wen Facility:[facility] Start: 12-27-2024 End: 12-27-[address] Jason Wen DO -[facility] Work Phone: Start: 12-27-2024 End: 12-27-[address] Michelet Hernandez DO Work Phone: -[facility] Start: 12-21-2024 End: 12-21-[address] MICHELET HERNANDEZ DO Facility:[facility] Start: 12-21-2024 End: 12-21-[address] MICHELET HERNANDEZ DO [facility] Start: 12-04-2024 ambulatory Michelet Hernandez Facility: [facility] Start: 12-02-2024 End: 12-02-[address] Michelet Hernandez DO Work Phone: -Laboratory [facility]a Blackzaina [facility] Start: 12-02-2024 End: 12-02-[address] Michelet Hernandez DO -Laboratory Mara Aviles [facility] Start: 12-02-2024 End: 12-02-2024 ambulatory Michelet Hernandez Facility:[facility] Start: 07-23-2024 End: 07-23-2024 Emergency department patient visit DR MARK GORE MD [facility] Start: 06-05-2024 End: 06-05-2024 ambulatory Michelet Hernandez Facility:[facility] Procedures Date Procedure Procedure Detail Performing [...] count and Differential panel - Body fluid [facility] INR in Blood by Coagulation assay [facility] Lactate dehydrogenas e [Enzymatic activity/volume] in Body fluid by Pyruvate to lactate reaction [facility] Lactate dehydrogenase measurement [facility] Microbial culture, body fluid [facility] Microscopic observat ion [Identifier] in Body fluid by Cyto stain [facility] Partial thromboplastin time, activated [facility] Platelets [#/volume] in Blood [facility] Protein [Mass/volume] in Body fluid [facility] Protein [Mass/volume] in Serum or Plasma [facility] Prothrombin time [facility] Ultrasonic guidance for thoracentesis [facility] Payers Date Payer Category Payer Private Health Insurance [id number] [id number] Self-pay 2012 Private Health Insurance [id number] 1945 Unknown [id number] 2.16. [id number] 1945 Unknown [id number] 2.16.8 [id number] Unknown [id number] 2.16.8 [id number] Unknown [id number] 2.16.8 [id number] Unknown [id number] 2.16.8 [id number] Unknown [id number] 2.16.8 [id number] Unknown [id number] 2.16.8 [id number] Unknown [id number] 2.16.8 [id number] Unknown [id number] 2.16.8 [id number] Social History Date Type Detail Facility Tobacco smoking status [facility] Start: 1945 Sex Assigned At Male A [facility] Start: 07-23-2024 Sex Male (finding) [facility] Work Phone: Start: 12-27-2024 Tobacco smoking stat us NHIS Never smoked tobacco (finding) [facility] Gender Identity Identifies as ho watson gender (finding) [facility] Functional Status Date Assessment Result Facility 07-23-2024 Functional Status [facility] 07-23-2024 Functional Status Independent [facility] Mental Status Date Assessment Result Facility 07-23-2024 Mental Status Orientation Oriented x 4 [facility] 07-23-2024 [facility] Clinical Notes 07-23-2024 Note Date & Type [...] very rapidly, very slowly, or irregularly (palpitations) [id number] [employer]. [address] [place] [address], [place] [address]. All rights reserved. This information is not intended as a substitute for professional medical care. Always follow your healthcare professional's instructions. Follow Up Care 07/23/2024 08:02:49 With:MICHELET HERNANDEZ DO Address: [address] [place] [address]- When:2-4 days [facility] 07-23-2024 Note Discharge Instructions Thank you for allowing [facility] to assist you with your healthcare needs. The following is important discharge information regarding your hospital visit. Diagnosis from Today's Visit Vasovagal syncope What to Do Next Instructions from Your Care Team No qualifying data available. Post Acute Orders No qualifying data available. You Need to Schedule the Following Appointments Follow Up with MICHELET HERNANDEZ DO When:Within 2-4 days Where:[address] [place] [address]- Allergies No Known Medication Allergies Medications Please [...] very rapidly, very slowly, or irregularly (palpitations) [id number] [employer]. [address] [place] [address]. All rights reserved. This information is not intended as a substitute for professional medical care. Always follow your healthcare professional's instructions. Additional Information VACCINATE! IT SAVES LIVES! Members of the community who have not yet received the COVID-19 vaccine and would like to receive it can visit one of [facility] vaccine clinics. There are many vaccine clinic locations within the [facility]. For locations and available times, please visit [email or web address] It is important to note that some COVID mobile vaccine clinics are held outdoors and may be canceled in rainy or stormy conditions. To learn more about pediatric vaccinations (ages 5-11), we invite you to visit the [facility] webpage. [email or web address] [email or web address] To learn more about the COVID-19 vaccine, we invite you to visit the CDC website for a list of frequently asked questions. https://www.cdc.gov/coronavirus/ 2019-ncov/vaccines/faq.html [facility] Patient Portal Access Instructions: Stay connected with your healthcare team and access your personal medical information anytime with the [facility] Patient Portal. If you would like a full copy of your medical records please contact the [facility] Medical Records Department Friday through Friday between 8a.m. and 4:30p.m. Please follow the directions below to access the portal: 1.Access the email account you provided upon registration to the [facility].2.Look for an invitation email from [facility].3.Open the email and access the invitation link: Accept Invitation to [facility].Fill in the required jensen to create your account. Sign into [email or web address] with your username and password that you [...] you will allow to register on the [facility] Patient Portal for access to your information. You can also access the [facility] Patient Portal on the [employer]. Simply click on Health Records under Health Data and then click on the [facility] logo. HOW TO SAFELY DISPOSE OF PRESCRIPTION [...] Call your local pharmacy or go to [email or web address] to find one close to you.3.Make use of household items: Use cat litter or old coffee grounds to dispose medications if other options are not available. Mix your drugs with these household products, seal them in an airtight container and throw it into the garbage. Call [facility]: [phone] to be sure your drugs can be [...] been reviewed and explained to me and IISABEL JERALD R understand my current condition and have read and understand these discharge instructions. I have received a written copy of the plan/instructions. If I have questions, I am aware that I should contact my doctor. Patient/Emergency Services Professional Signature: Date/Time: Relationship to Patient: Witness Name/Signature: Date/Time: [facility] 07-23-2024 Note Exam Date Time Procedure Performing Provider Status 07/23/24 9:[address] Head or Brain w/o Contrast Julieta LOZA MD; Auth (Verified) [id number] ORIGINAL EXAMINATION: CT OF THE HEAD WITHOUT [...] 07/23/2024 9:25:53 AM Ordering Provider: MARK GORE [facility]02-21-2025 Note* Exam Date Time Procedure Performing Provider Status 07/23/24 8:49 AM EKG [ED AOH] - CV MD BAO, MARK MCGOVERN; Auth (Verified) ECG Final Report Sinus rhythm Atrial premature complex Baseline wander in lead(s) V3 Electronic Signature: MD BAO, MARK MCGOVERN 07/23/2024 10:59:11 [facility] No data available for this section [facility] Evaluation noteNo assessment information available [facility] Work Phone: Evaluation note* Diagnosis Onset Date Resolution Status Admit Date Lung mass acute December 27 10:33am Pleural effusion acute November 10:33am [facility] Work Phone: Hospital Discharge instructions No data available for this section [facility] Hospital Discharge instructionsAmbulatory Orders* Cardiovascular/Thoracic Surgery Location: None Selected [facility] Work Phone: Progress note No data available for this section [facility] Reason for referral (narrative)No reason for referral [facility] Work Phone: Summary Purpose Family History [...] tart: December 27, 2024 Dr. Jason Wen , Referring Provider Active S tart: December 27, 2024 Goals (unrecognized section and content) Goals may be documented in a n alternate section (unrecognized sect ion and content) No Status Records FoundNo Status Records Found INFORMATION SOURCE (unrecogn ized section and content) DATE CREATED AUTHOR 12/24/2024 [facility] DATE CREATED AUTHOR AUTHOR'S ORGANIZ ATION 12/29/2024 [facility] FOR RECORDS PERTAINING TO PATIENTS WHO ARE [...] BE BASED ON THE PRIMARY CLINICAL RECORDS. [employer] [facility]. provides no warranty or guarantee of the accuracy or completeness of information in this document.
[2024-12-30 08:26] VITALS: BP 153/79; PULSE 110; RESP 18; TEMP 36.6; O2SAT 98
--- NOTE | 2024-12-30 08:45 | FLU_PTH ---
PATIENT: JUJU HALL LOC: U#:[id number] AGE/SX: 79/M ROOM: RE12/30/[address]: Dr. Jason Wen DO : 1945 BED: DIS: 12/30/2024 SPEC #: [id number] RECD: 12/30/24 09:19 STATUS: LOUIE REQ #: [id number] BRYAN: 12/30/24 08:[address]: Jason Wen DEPT: CYTOLOGY RECD BY: Francis Wood ENTERED: 12/30/24 10:50 SP TYPE: Fluid OTHR DR: Dr. Sacha Hernandez DO Tissues: A - Pleural fluid, NOS Procedures: Immunohistochemical Stains Special Stain Group II Surgery Specimen Level IV Cytospin Fluid IHC Stain ADDITIONAL HEADER OPERATION: Ultrasound guided thoracentesis PRE-OP DIAGNOSIS: Pleural effusion TISSUE SUBMITTED: A- Thoracentesis fluid for cytology DIAGNOSIS CYTOLOGY A. Thorax, pleural effusion, thoracentesis (cytospin, cellblock): - Lymphocytosis with atypical features suspicious for a lymphoproliferative disorder. - Further evaluation of the cellblock with IHC is pending and an addendum report will follow. CYTOLOGY STUDY Slides are reviewed. CYTOLOGY GROSS A. Received is 110 ml of mhkd-whzogx-bpciys fluid labeled with the patient's name and and designated per the requisition as Thoracentesis fluid. Submitted for cytology and cell block preparation. 12/30/2024 CPT: [id number] ADDENDUM ADDENDUM ADDENDUM ADDENDUM ADDENDUM ADDENDUM ADDENDUM ADDENDUM ADDENDUM ADDENDUM ADDENDUM ADDENDUM ADDENDUM ADDENDUM ADDENDUM ADDENDUM ADDENDUM ADDENDUM ADDENDUM ADDENDUM ADDENDUM ADDENDUM ADDENDUM ADDENDUM ADDENDUM ADDENDUM ADDENDUM ADDENDUM ADDENDUM ADDENDUM ADDENDUM ADDENDUM ADDENDUM ADDENDUM ADDENDUM ADDENDUM ADDENDUM ADDENDUM ADDENDUM ADDENDUM ADDENDUM ADDENDUM ADDENDUM ADDENDUM 01/18/2025 13:27 ADDENDUM 02/03/2025 10:13 ADDENDUM 01/18/2025 13:27 ADDENDUM 01/18/2025 13:27 ADDENDUM 01/18/2025 13:27 ADDENDUM 01/18/2025 13:27 This addendum is added to incorporate an outside pathology consultation report. The case was examined at [facility] by Dr. Lesly Cain (#[id number]) and the following diagnosis was rendered. A. Thorax, pleural effusion, thoracentesis (cytospin, cellblock): T-cell predominant lymphocytosis, see comment. DIAGNOSIS COMMENT: The cell block demonstrates sheets of small lymphocytes with admixed inflammatory cells, including macrophages, dendritic cells, scattered neutrophils, and reactive mesothelial cells. Submitted immunohistochemical stains (CD45, CD3, CD5, CD10, BCL6, BCL2, CD20, Cyclin D1, CD23, and William-K) were reviewed with appropriate controls. Additional IHCs (PAX-5, CD30, CD15, ALK-1, MUM1, CD79a, CK5/6, P63, Calretinin, WT-1, TdT, PAX-8, S100 and lysozyme), along with ROMARIO in situ hybridization (CAROLE), were performed at [facility] on external block A1, with appropriate controls. - CD45 highlights all lymphocytes. - CD3 and CD5 demonstrate that the majority of lymphocytes are T cells, which are BCL2 positive and TdT negative. - CD20, PAX-5, and CD79a highlight admixed but significantly fewer B cells, which are negative for BCL6, Cyclin D1, and CD10. - CD23 highlights scattered positive cells. - CD30 and MUM1 highlight rare, scattered immunoblasts. - CD15 highlights scattered neutrophils. - S100 highlights scattered dendritic cells. - Lysozyme stains macrophages. - William-K highlights reactive mesothelial cells, which are also positive for calretinin, CK5/6, and WT-1. - Ki67 shows a proliferation index of approximately 20-30%. - ROMARIO CAROLE highlights rare (<1%) intermediate-sized positive cells. - P63 shows non-specific staining. - ALK-1 and PAX-8 are negative. Overall, the findings are consistent with a T-cell predominant lymphocytosis. T-cell receptor (TCR) gene rearrangement analysis is in progress to assess for clonality and will be reported in an addendum. Please see complete above mentioned consultation report in EMR This addendum is added to incorporate an outside pathology consultation report. The case was examined at [facility] by Dr. Cain (#[id number]) and the following diagnosis was rendered. T-cell receptor (TCR) gene rearrangement analysis report: TCRB and TCRG PCR on outside block show no diagnostic T-cell clonal population. TCRB PCR Pattern: Predominantly polyclonal pattern with minimal skewing. TCRGB Interpretation: There is no diagnostic evidence of a clonal T-cell population in this sample by TCRG and TCRB PCR. Run and sample controls meet acceptable criteria. Please see complete above mentioned consultation report in EMR
[2024-12-30 08:50] VITALS: BP 156/81; PULSE 106; RESP 18; O2SAT 98
[2024-12-30] MEDS: Lidocaine 2% (20 ml mdv) 20 ML Vial INFILT (08:50)
[2024-12-30 08:57] VITALS: BP 123/77; PULSE 107; RESP 18; O2SAT 99
[2024-12-30 10:07] LABS: Cytology, Body Fluid / CSF SEE PATHOLOGY REPORT
[2024-12-30 10:23] LABS: Body Fluid Mononuclear WBC # 2.775 10^3/uL; Body Fluid Mononuclear WBC % 99.3 %; Body Fluid Polynuclear WBC # 0.020 10^3/uL; Body Fluid Polynuclear WBC % 0.7 %; White Blood Count/Body Fluid 2.795 10^3/uL
[2024-12-30 10:26] LABS: Appearance/Body Fluid SL CLDY; Auto B Fluid Analyzer BKGD Ct COUNTS W/IN LIMITS (W/IN LIMITS); Color/Body Fluid YELLOW; Source- Body Fluid THORACENTESIS
[2024-12-30 11:26] LABS: Red Cell Count/Body Fluid 104 /mm3
[2024-12-30 11:29] LABS: Neutrophil (Segs) 0 %
[2024-12-30 12:15] LABS: Body Fluid QC Type(s) 0731 BF1
[2024-12-30 15:45] LABS: Pathologist Comment/Body Fluid Reviewed
== END | disposition home or self-care (01) ==
PROVIDERS: PCP Family Medicine; Referring Provider Internal Medicine Critical Care Medicine; Visit Provider Internal Medicine Critical Care Medicine
DX: J90 Pleural effusion, not elsewhere classified (principal); R91.8 Other nonspecific abnormal finding of lung field
CPT/HCPCS: 32555; 83615; 84157; 87070; 87075; 87205; 88108; 88305; 88313; 88341; 88342; 89050

== ENCOUNTER 2025-01-18 05:17 | Observation (INO) | payer MEDICARE, SELFPAY ==
[2025-01-18] VITALS (12 sets, daily range): BP systolic 142–170; BP diastolic 71–90; PULSE 75–115; RESP 14–31; TEMP 36.6–37.2; O2SAT 96–100; BMI 24.7; BMI 24.5
--- NOTE | 2025-01-18 05:41 | ED.VIS.DYS ---
HPI <Dr. Kenrick Ott DO - Last Filed: 01/18/25 08:14> History of Present Illness Chief Complaint: Shortness of Breath Informant: patient Onset/Context/Timing Onset: Days (2) Context: gradual Timing: Intermittent Quality: Positive for Orthopnea Worsened by: Lying flat Relieved by: - (Sitting up) Associated Symptoms Negative for cough, rhinorrhea, post nasal drip, ear pain, fever, sore throat, chills, sweats, clear sputum, white sputum, yellow sputum or green sputum Chest Pain: Positive for Tightness (Left chest) Narrative Narrative: Patient presents with shortness of breath that has been intermittent over the past 2 days. Patient states it is worse when he lays flat. Patient states it is better when he sits up. Patient states he had a recent thoracentesis where they drained 1 L of fluid off of his left lung. Patient admits to a mild cough. Patient denies any sputum production. Patient admits to some tightness over the left side of his chest. Patient denies any fevers or chills. Patient denies any sore throat or rhinorrhea. PE Risk Factors: Negative for Cancer, OCP + Smoking + > 35, Prior DVT or PE, Recent immobilization, Recent surgery or Recent travel [facility] <Dr. Kenrick Ott DO - Last Filed: 01/18/25 08:14> [facility] Medical History (Updated 01/18/25 @ 06:[address] Kernick Ott DO) Pleural effusion Lung mass Macular degeneration Home Medications ?Medication ?Instructions ?Recorded ?Last Taken ?Type NK 01/18/25 Unknown History Allergy/AdvReac Type Severity Reaction Status Date / Time No Known Allergies Allergy Verified 01/18/25 05:18 Family History (Updated 12/27/24 @ 10:43 by Mirna Griffiths LPN) Brother Cancer throat Surgical History (Updated 01/18/25 @ 06:[address] 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 Kenrick Ott, DO - Last Filed: 01/18/25 08:14> ROS ED Constitutional Constitutional ED: Denies chills or fever(s) Eyes Eyes: Denies blurry vision or change in vision ENT ENT ED: Denies rhinorrhea or sore throat Cardiovascular Cardiovascular: Reports chest pain; Denies palpitations Respiratory/Chest Respiratory/Chest: Reports dyspnea; Denies cough Gastrointestinal Gastrointestinal: Denies nausea or vomiting Genitourinary Genitourinary ED: Denies dysuria or hematuria Musculoskeletal Musculoskeletal: Denies back pain or neck pain Integumentary Denies abscess or rash Neurologic Neurologic: Reports weakness; Denies headache(s) Allergic/Immunologic Allergic/Immunologic ED: Denies mouth swelling or urticaria EXAM <Dr. Kenrick Ott, DO - Last Filed: 01/18/25 08:14> Physical Exam Const Vital Signs: 01/18/25 05:17 01/18/25 05:17 01/18/25 06:17 Temperature 98.9 F Temperature Source Oral Pulse Rate 115 H 90 Respiratory Rate 18 14 Respiratory Effort Short of Breath Respiratory Pattern Tachypnea Blood Pressure 170/90 H 142/79 H Blood Pressure Mean 116 100 Pulse Ox 96 98 Oxygen Delivery Method Room Air Room Air Room Air 01/18/25 07:00 01/18/25 07:12 01/18/25 08:26 Temperature 98 F Temperature Source Pulse Rate 85 89 92 Respiratory Rate 15 17 Respiratory Effort Respiratory Pattern Blood Pressure 142/77 H 161/71 H Blood Pressure Mean 98 101 Pulse Ox 99 97 Oxygen Delivery Method 01/18/25 09:04 01/18/25 10:02 Temperature Temperature Source Pulse Rate 84 75 Respiratory Rate 31 H 18 Respiratory Effort Respiratory Pattern Blood Pressure 154/86 H Blood Pressure Mean 108 Pulse Ox 96 100 Oxygen Delivery Method Positive well nourished and well developed Constitutional Narrative: BMI is 24.8. General Appearance ED: well developed and NAD HEENT Reports moist mucous membranes Neck supple, no meningeal signs and no JVD Resp normal respiratory effort and clear to auscultation bilaterally Cardio regular rate and regular rhythm GI non-tender and non-distended Palpation: soft Neuro oriented x3, CN's II-XII intact bilaterally and no sensory deficits noted Norbert Coma Scale: document GCS findings Spontaneous Obeys Commands Oriented 15 Sensorium / Orientation: alert Speech: speech normal Motor Exam: strength 5/5 throughout Psych mental status grossly normal <Juan Manuel Gallegos MD - Last Filed: 01/18/25 11:33> Physical Exam Const Vital Signs: 01/18/25 05:17 01/18/25 05:17 01/18/25 06:17 Temperature 98.9 F Temperature Source Oral Pulse Rate 115 H 90 Respiratory Rate 18 14 Respiratory Effort Short of Breath Respiratory Pattern Tachypnea Blood Pressure 170/90 H 142/79 H Blood Pressure Mean 116 100 Pulse Ox 96 98 Oxygen Delivery Method Room Air Room Air Room Air 01/18/25 07:00 01/18/25 07:12 01/18/25 08:26 Temperature 98 F Temperature Source Pulse Rate 85 89 92 Respiratory Rate 15 17 Respiratory Effort Respiratory Pattern Blood Pressure 142/77 H 161/71 H Blood Pressure Mean 98 101 Pulse Ox 99 97 Oxygen Delivery Method 01/18/25 09:04 01/18/25 10:02 Temperature Temperature Source Pulse Rate 84 75 Respiratory Rate 31 H 18 Respiratory Effort Respiratory Pattern Blood Pressure 154/86 H Blood Pressure Mean 108 Pulse Ox 96 100 Oxygen Delivery Method Neuro Norbert Coma Scale: document GCS findings 15 MDM <Dr. Kenrick Ott DO - Last Filed: 01/18/25 08:14> MDM MDM Narrative Medical decision making narrative: Differential diagnosis includes pneumonia, bronchitis, pleural effusion, pneumothorax, lung mass, electrolyte abnormality, and anxiety. Chest x-ray will be obtained to assess for pneumonia, bronchitis, pleural effusion, and pneumothorax. EKG will be obtained to assess for cardiac dysrhythmia and cardiac ischemia. CBC will be obtained to assess for leukocytosis and anemia. Basic metabolic profile will be obtained to assess for electrolyte abnormality and renal function. High-sensitivity troponin will be obtained to assess for cardiac ischemia. History & Record Review Additional record(s) reviewed:: Prior outpatient record and Prior labs Lab Data Attestation: I reviewed the patient's lab results. Lab results narrative: CBC was reviewed. Hemoglobin slightly low at 10.2 and hematocrit was 30.8. These are somewhat decreased from previous result. Basic metabolic profile was reviewed. BUN was elevated at 51 and creatinine was 3.72. These were increased from previous result. Calcium was reviewed and was elevated at 13.6. High-sensitivity troponin was reviewed and it was slightly elevated at 31. Labs: Laboratory Results - last 24 hr 01/18/25 01/18/25 05:30 07:26 WBC 8.0 RBC 3.50 L Hgb 10.2 L Hct 30.8 L MCV 88.0 MCH 29.1 MCHC 33.1 RDW Std Deviation 42.5 RDW Coeff of Martha 13.2 Plt Count 380 MPV 10.2 Immature Gran % (Auto) 0.200 Neut % (Auto) 70.8 H Lymph % (Auto) 11.1 L Pender % (Auto) 12.3 H Eos % (Auto) 4.7 Baso % (Auto) 0.9 Absolute Neuts (auto) 5.7 Absolute Lymphs (auto) 0.89 Nucleated RBC % 0 Sodium 139 Potassium 4.0 Chloride 101 Carbon Dioxide 21.7 Anion Gap 15 BUN 51 H Creatinine 3.72 H Estim Creat Clear Calc 14.05 L Est GFR (MDRD) Non-Af 16 L BUN/Creatinine Ratio 13.6 Glucose 98 Calcium 13.6 H* Troponin T High Sens 31 H Troponin T Hi Sens 2 Hr 33 H Radiography Chest X-Ray - ED: 2 View, Read by ED Physician, Read by Radiologist and Left Effusion Diagnostic Testing: Clinical Impression(s) from Imaging Studies Chest X-Ray 01/18/25 06:20 IMPRESSION: There is a moderate size left pleural effusion. Reading Location: [facility] Renal Ultrasound 01/18/25 07:11 IMPRESSION: Mild dilation of the renal collecting system on the right. Reading Location: [facility] PA and lateral chest x-ray was obtained. There are 2 views. On my independent interpretation, lung jensen show a left pleural effusion. There is normal cardiac silhouette. Bony thorax is normal. There is no pneumothorax noted. Radiologist also interpreted the x-ray and agrees. EKG Initial EKG: Attestation: I personally reviewed and interpreted this EKG as follows: Interpretation: Sinus Tachycardia (104) and Non-Specific ST Changes Comments: EKG was obtained. On my independent interpretation, it showed a sinus tachycardia with a rate of 104. NE interval, QRS interval, and QTc intervals were all normal. [place] was normal. There are nonspecific ST-T wave changes. Prior EKG tracings: not available for review Prior: No Prior Management Discussion w/another healthcare provider: Hospitalist Treatment and Re-Evaluation :: Patient was given aspirin here. Patient was advised of his findings. Patient was advised of the need for admission to the hospital. Patient is agreeable with this. Case was discussed with the hospitalist. He recommended giving the patient IV fluids and obtaining a renal ultrasound. He will be in to evaluate the patient for admission. Care of the patient will be turned over to the oncoming physician pending admission. <Juan Manuel Gallegos MD - Last Filed: 01/18/25 11:33> [facility] Lab Data Labs: Laboratory Results - last 24 hr 01/18/25 01/18/25 05:30 07:26 WBC 8.0 RBC 3.50 L Hgb 10.2 L Hct 30.8 L MCV 88.0 MCH 29.1 MCHC 33.1 RDW Std Deviation 42.5 RDW Coeff of Martha 13.2 Plt Count 380 MPV 10.2 Immature Gran % (Auto) 0.200 Neut % (Auto) 70.8 H Lymph % (Auto) 11.1 L Pender % (Auto) 12.3 H Eos % (Auto) 4.7 Baso % (Auto) 0.9 Absolute Neuts (auto) 5.7 Absolute Lymphs (auto) 0.89 Nucleated RBC % 0 Sodium 139 Potassium 4.0 Chloride 101 Carbon Dioxide 21.7 Anion Gap 15 BUN 51 H Creatinine 3.72 H Estim Creat Clear Calc 14.05 L Est GFR (MDRD) Non-Af 16 L BUN/Creatinine Ratio 13.6 Glucose 98 Calcium 13.6 H* Troponin T High Sens 31 H Troponin T Hi Sens 2 Hr 33 H Radiography Diagnostic Testing: Clinical Impression(s) from Imaging Studies Chest X-Ray 01/18/25 06:20 IMPRESSION: There is a moderate size left pleural effusion. Reading Location: [facility] Renal Ultrasound 01/18/25 07:11 IMPRESSION: Mild dilation of the renal collecting system on the right. Reading Location: [id number] Treatment and Re-Evaluation :: Patient was given aspirin here. Patient was advised of his findings. Patient was advised of the need for admission to the hospital. Patient is agreeable with this. Case was discussed with the hospitalist. He recommended giving the patient IV fluids and obtaining a renal ultrasound. He will be in to evaluate the patient for admission. Care of the patient will be turned over to the oncoming physician pending admission. Dr. Gallegos: Patient endorsed to me to discuss with the hospitalist after ultrasound/renal ultrasound performed. In discussion with Dr. Donovan, he would like the patient to be a full admit to the general medical floor. He is in stable condition. Discharge Plan Triage Chief Complaint: Shortness of Breath ED Provider: Kenrick Ott Dx/Rx/DC Orders Clinical Impression: Acute kidney injury, Recurrent left pleural effusion, Dyspnea Prescriptions: No Action NK Primary Care Provider: Sacha Hernandez Referrals: Sacha Hernandez DO [Primary Care Provider] - Print Language: Bengali
--- NOTE | 2025-01-18 06:04 | EKG12_ITS ---
Test Reason : CP Blood Pressure : */* mmHG Vent. Rate : 104 BPM Atrial Rate : 104 BPM P-R Int : 194 ms QRS Dur : 82 ms QT Int : 320 ms P-R-T Axes : 51 12 80 degrees QTcB Int : 420 ms Sinus tachycardia Nonspecific T wave abnormality Abnormal ECG Confirmed by DAVON MCGOVERN, KAYLENE ([id number]), market editor KIANNA ORTEGA ([id number]) on 01/19/2025 9:35:56 AM Referred By: ALYCE Confirmed By: KAYLENE MAYS MD
[2025-01-18 06:13] LABS: Hematocrit 30.8 % (40-54); Hemoglobin 10.2 g/dL (13.0-16.5); Immature Granulocytes Count 0.020 X10^3/uL (0.0-0.0); Mean Corp Hgb Conc 33.1 g/dL (32-36); Mean Corpuscular Volume 88.0 fL (80-94); Mean Platelet Vol. 10.2 fl (6.2-12.0); NRBC Flagged by Analyzer 0 % (0-5); Platelet Count 380 K/mm3 (150-450); RBC Distribution Width CV 13.2 % (11.6-14.6); RBC Distribution Width SD 42.5 fl (35.1-43.9); Red Blood Count 3.50 M/mm3 (4.6-6.2); White Blood Count 8.0 K/mm3 (4.4-11.0)
--- NOTE | 2025-01-18 06:20 | RAD_ITS ---
PROCEDURE: CHEST PA AND LATERAL 01/18/2025 REASON FOR EXAM: DYSPNEA TECHNIQUE: CHEST PA AND LATERAL COMPARISON: September 18, 2020 FINDINGS: Heart size is within normal limits. Central vascularity appears normal. There is a moderate left pleural effusion. There is no visible pneumothorax. There is no acute bony abnormality. Aortic calcifications are visible. RAD/Chest PA and Lateral IMPRESSION: There is a moderate size left pleural effusion. Reading Location: [facility]
[2025-01-18 06:33] LABS: Anion Gap 15 (5-15); BUN 51 mg/dL (4-19); BUN/Creat Ratio 13.6 RATIO (10-20); Calcium,Total 13.6 mg/dL (7.6-11.0); Carbon Dioxide 21.7 mmol/L (21.0-32.0); Chloride 101 mmol/L (98-108); Estimated Creatinine Clearance 14.05 ml/min (50-250); Glucose 98 mg/dL (70-99); Potassium 4.0 mmol/L (3.3-5.1); Troponin T High Sensitivity 31 ng/L (<=22)
--- OUTSIDE RECORDS SUMMARY | 2025-01-18 06:57 | XMS RPT_ITS | CCD ---
Author Organization [facility] CliniSypr Care Team Providers Care Aoc Director Combat Operations Officer Name Role Phone DR MICHELET HERNANDEZ DO Primary Care Physician [phone] David JOSE, Dr. Goncalves Primary Care Provider [phone] David JOSE, Dr. Goncalves Attending Provider [phone] DAVID JOSE, DR MICHELET Parker Primary Care Unavailab walter GORE MD, DR FLORES Attending Wesab walter HERNANDEZ DO, DR MICHELET Parker Attending Lennie Rod DO, DR MICHELET Parker Primary Care Unavailab Barb JOSE, Dr. Goncalves Referring Provider Behzad JOSE, Dr. Gomez Attending Provider [phone] Behzad JOSE, Dr. Gomez Referring Provider [phone] Michelet Hernandez Primary Care Provider [phone] MICHELET HERNANDEZ Primary Care Unavailable DOMENICO WEN Referring Unavailable DENZEL CONTRERAS Attending Unavailable DavidMichelet jennings Primary Care Unavailable Domenico Wen Referring Unavailable Domenico Wen Attending Unavailable DavidMichelet jennings Primary Care Unavailable DavidMichelet Attending Unavailable David, Michelet Primary Care Unavailable DavidMichelet Referring Unavailable DavidMichelet Attending Unavailable David, Michelet Primary Care Unavailable DavidMichelet Attending Unavailable David, Michelet Primary Care Unavailable DavidMichelet Referring Unavailable Leslie Ashley Attending Unavailable David, Michelet Primary Care Unavailable DavidMichelet jennings Referring Unavailable Domenico Wen Attending Unavailable Domenico Wen Attending Unavailable David, Michelet Primary Care Unavailable Domenico Wen Referring Unavailable Medications Current Medications Medication Drug Class(es) Dates Sig (Normalized) Sig (Original) Vit A,C,Q-L4-Aoxs-Lut-Mi n-Glut 1000 unit-300mg -100 unit-2 mg tablet (2 sources) Start: 12-27-2024 Vit A,C,V-G6-Csnv-Lut-M in-Glut 1000 unit-300mg -100 unit-2 mg tablet Active {tbl} PO December 27, 2024 12:00am Completed/Discontinued Medications Medication Drug Class(es) Dates Sig (Normalized) Sig (Original) Chlorhexidine Gluconate (Peridex) 0.12 % mouthwash (3 sources) Start: 06-05-2024 End: 12-27-2024 Chlorhexidine Gluconate (Peridex) 0.12 % mouthwash Discontinued 15 mL BUCCAL TWICE A DAY 300 0 June 05, 2024 1:00am December 27, 2024 10:39am Start: 06-05-2024 Chlorhexidine Gluconate (Peridex) 0.12 % mouthwash Active 15 mL BUCCAL TWICE A DAY 300 0 June 05, 2024 1:00am Problems Active Problems Problem Classification Problem Date Documented Date Episodic/Chronic Chronic kidney disease (1 source) Chronic [...] Onset: 12-04-2024 Episodic Other lower respiratory disease (6 sources) Lung mass; Translations: [Other nonspecific abnormal finding of lung field] Episodic Other lower respiratory disease (1 source) Other nonspecific abnormal finding of lung field; Translations: [Other nonspecific abnormal finding of lung field] Onset: 01-03-2025 Episodic Other nutritional; endocrine; and metabolic disorders (1 source) Unintentional weight loss; Translations: [Abnormal weight loss] 01-06-2025 Episodic Other nutritional; endocrine; and metabolic disorders (3 sources) Abnormal weight loss; Translations: [Abnormal weight loss] Onset: 12-28-2024 Episodic Other screening for suspected conditions (not mental disorders or infectious disease) (1 source) Elevated C-reactive protein (CRP); Translations: [Elevated C-reactive protein (CRP)] Onset: 12-28-2024 Episodic Other upper respiratory disease (1 source) Mediastinal mass; Translations: [Other diseases of mediastinum, not elsewhere classified] 01-06-2025 Episodic Other upper respiratory disease (2 sources) Other diseases of mediastinum, not elsewhere classified; Translations: [Other diseases of mediastinum, not elsewhere classified] Onset: 01-06-2025 Episodic Pleurisy; pneumothorax; pulmonary collapse (5 sources) Pleural effusion; Translations: [Pleural effusion, not elsewhere classified] Onset: 01-06-2025 12-27-2024 Episodic Retinal detachments; defects; vascular occlusion; and retinopathy (2 sources) Degenerative disorder of macula ; Translations: [Unspecified macular degeneration] 12-27-2024 Chronic Syncope (1 source) Syncope and collapse; Translations: [Syncope and collapse] Onset: 07-23-2024 Episodic Unclassified (4 sources) R91.8 - Other nonspecific abnormal finding of lung field Past or Other Problems Problem Classification Problem Date Documented Da te Episodic/Chronic Other upper respiratory infections (7 sources) Viral pharyngitis; Translations: [Acute pharyngitis due to other specified organisms] Onset: 06-05-2024 06-05-2024 Episodic Results Test Name Value Interpretation Reference Range Facility Office Visiton 01-06-2025 Follow-up visit [id number] Juju Caceres 1945 M Date Provider Department Center 01/06/2025 17610-IDSNAEDENZEL CONTRERAS [facility] CT None Family History Problem Relation Age of Onset Throat cancer Brother Family Status - Relation Status Age at Brother Level of Service:86287 LA OFFICE/OP CONSLTJ NEW/EST PT MOD MDM 40 MINUTES (57) Reason for Visit and Comments: New Patient [542] Normal [facility] Progress Noteon 01-06-2025 Progress Note [facility] [address] [facility] [address] Dept: [phone] Dept Loc: [phone] Visit type: New Reason for Visit: Mediastinal mass Assessment: 1. Mediastinal mass 2. Weight loss, non-intentional Recommendations: The next step in this process is surgical biopsy of the mass. I suspect he may have lymphoma. I have offered a thoracoscopic approach. This will allow for biopsy, drainage of pleural effusion with sampling, and pleural exploration to see if there are any other signs of tumor. This was explained to him in detail. Risks have been outlined. He is willing to proceed. History of Present Illness Juju Caceres is a 79 y.o. male referred by Dr. Wen for mediastinal mass. Per note, pt had CT chest completed at [facility] on 12/21/24 which demonstrated a large mass in the prevascular mediastinal space with encroachment on the pulmonary arteries and an associated moderate pleural effusion. Pt was sent for thoracentesis on 12/30/24 with 1160 mL removed. Cytology showed lymphocytosis with atypical features suspicious for a lymphoproliferative disorder. Pt is here now for an evaluation. He states that he has lost about 12 pounds in the last 3 months and he is weaker than he used to be. He now uses a can to help with walking. He denies any night sweats but does not sleep as well as he would like. He has never had any medical problems and takes no medications. Past Medical History Past Medical History: Diagnosis Date Macular degeneration Past Surgical History Surgical History[1] Family History Family History[2] Social History Marital status: Work history: Retired Social History[3] Allergies No Known Allergies Medications No current outpatient medications on file. Review of Systems Review of Systems Constitutional: Positive for fatigue and unexpected weight change (weight loss). Neurological: Positive for weakness. All other systems reviewed and are negative. Physical Exam Vitals: BP (!) 158/87 (BP Location: Left arm, Patient Position: Sitting, BP Cuff Size: Large adult) Pulse 91 Ht 5' 6 (1.676 m) Wt 153 lb (69.4 kg) BMI 24.69 kg/m? Constitutional: General: Not in acute distress. Appearance: Normal appearance. Not toxic-appearing. Ear, nose, mouth: Bilateral external ear and nose normal. Nose: Nose normal. Mouth: Appearance normal, no bleeding, moist mucus membranes Eyes: General: No scleral icterus. No discharge from bilateral eyes Extraocular Movements: Extraocular movements intact. Pupils equal and reactive bilaterally Cardiovascular: Heart: Regular rhythm. Normal heart sounds. Vascular: No carotid bruit. Edema: no edema in bilateral lower extremities Pulmonary: Effort: Pulmonary effort is normal. No respiratory distress. Breath sounds: Normal breath sounds. No wheezing. Chest wall: No tenderness. Abdominal: Appearance: Not distended Palpations: There is no abdominal tenderness, no guarding. Musculoskeletal: Bilateral upper and lower extremities: Normal range of motion, no deformity Head: Normocephalic and atraumatic. Neck: Normal range of motion and neck supple. No muscular tenderness. Lymphadenopathy: Cervical: No cervical adenopathy. Skin: General: Skin is warm and dry. Coloration: Skin is not jaundiced. Neurological: General: No focal deficit present. Cranial Nerves: No obvious cranial nerve deficit. Psychiatric: Mood and Affect: Mood normal. Thought Content: Thought content normal. Patient has good judgement and insight Mental Status: Alert and oriented to place, person, and time. Labs No results found for: WBC, HGB, PLT, NA, K, CREATININE Imaging Left Thoracentesis 12/30/24 Cytology 12/30/24 CT Chest 12/21/24 Patient Care Team: PCP: Michelet Hernandez MD Pulmonology: DO Lucero Golden DO FACS Cardiothoracic Surgery [1] History reviewed. No pertinent surgical history. [2] Family History Problem Relation Name Age of Onset Throat cancer Brother [3] Social History Tobacco Use Smoking status: Never Smokeless tobacco: Never Substance Use Topics Alcohol use: Never Drug use: Never Normal [facility] SHS Culture, Anaerobic Any Sourc apolonia 01-04-2025 CUAN UNK UNK No growth in 5 days. Normal [facility] Comment on above: Performed By: #### L 200.0200, M100.2900, M100.4001, L001.0705, L503.0300, M100.2000, L504.0250 #### [facility] [address] [place], [address] Body Fluid Culton 12-31-2024 BFC UNK UNK Culture exhibits no growth. Normal [facility] Comment on above: Performed By: #### L 200.0200, M100.2900, M100.4001, L001.0705, L503.0300, M100.2000, L504.0250 #### [facility] [address] [place], [address] Body Fluid Cell Count+Diffon 12-30-2024 PATH COMM/BF Reviewed Normal [facility] Comment on above: Order Comment: The r eference range and other method performance specifications have not been established for this body fluid. The test must be integrated into the clinical context for interpretation. BODY FLUID BLEURAL EFFUSION LT THORA Result Comment: LYMP HOCYTOSIS WITH ATYPICAL FEATURES INCLUDING OCCASIONAL MITOTIC FIGURES. PATIENT HISTORY OF UNILATERAL TONSILLAR ENLARGEMENT NOTED. SUGGEST FURTHER EVALUATION TO RULE OUT A LYMPHOPROLIFERATIVE DISORDER IS SUGGESTED IF CLINICALLY INDICATED. Janice Gu MD 12/30/2024 AMENDED REPORT 12/30/24 1543 PATH COMM/BF previously reported as: May follow Performed By: #### L 200.0200, M100.2900, M100.4001, L001.0705, L503.0300, M100.2000, L504.0250 #### [facility] [address] [place], [place], [address] Body fluid appearance (nomin al result)Ordered By: Domenico Wen on 12-30-2024 Appearance (Body fld) SL CLDY [facility] Body fluid color determinati onOrdered By: Domenico Brown on 12-30-2024 Color (Body fld) YELLOW [facility] Body fluid cultureOrdered By : Domenico Wen on 12-30-2024 Microbial culture, body fluid Culture exhibits no growth. [facility] Body fluid lactate dehydroge nase measurement (enzymatic activity/volume) by pyruvateOrdered By: Domenico Wen on 12-30-2024 LDH Pyruvate to lactate reaction (Body fld) [Catalytic activity/Vol] 566 Units/L Not Establ. [facility] Body fluid leukocytes count (number/volume)Ordered By: Domenico Wen on 12-30-2024 WBC (Body fld) [#/Vol] 2.795 10*3/uL [facility] Body fluid lymphocytes/100 l eukocytesOrdered By: Domenico Wen on 12-30-2024 Lymphocytes/100 WBC (Body fld) 86 % [facility] Body fluid macrophage countO rdered By: Domenico Wen on 12-30-2024 Macrophages (Body fld) [#/Vol] 6 % [facility] Body fluid mononuclear cell percentageOrdered By: Domenico Wen on 12-30-2024 Mononuclear cells/100 WBC (Body fld) 99.3 % [facility] Body fluid protein measureme nt (mass/volume)Ordered By: Domenico Wen on 12-30-2024 Protein (Body fld) [Mass/Vol] 4.6 g/dL Not Establ. [facility] Body fluid segmented neutrop hils count (number/volume)Ordered By: Domenico Wen on 12-30-2024 Segmented neutrophils (Body fld) [#/Vol] 0 % [facility] Body fluid total cell countO rdered By: Domenico Wen on 12-30-2024 Cells Counted Total (Body fld) [#] 2.828 10^3/ul [facility] Comment on above: This is the Total Nu mber of Nucleated Cell Types in the Body Fluid. Gram Stainon 12-30-2024 GS UNK UNK Centrifuged Specimen? Culture performed on centrifuged specimen Gram Stain 3+ White Blood Cells No organisms seen Normal [facility] Comment on above: Performed By: #### L 200.0200, M100.2900, M100.4001, L001.0705, L503.0300, M100.2000, L504.0250 #### [facility] [address] [place], [address] Gram stainOrdered By: Domenico Wen on 12-30-2024 Microscopic observation Gram stain Nom (Unsp spec) [facility] LDH,Body Fluidon 12-30-2024 LDH,BF 566 Units/L Normal Not Establ. [facility] Comment on above: Order Comment: BODY FLUID BLEURAL EFFUSION LT THORA Performed By: #### L 200.0200, M100.2900, M100.4001, L001.0705, L503.0300, M100.2000, L504.0250 #### [facility] [address] [place], [address] Monocyte detectionOrdered By : Domenico Wen on 12-30-2024 Monocytes/100 WBC (Bld) 8 % W [facility] No Panel InformationOrdered By: Domenico Wen on 12-30-2024 Body Fluid Comment 2 SEE COMMENT [facility] Comment on above: .INTERPRETATION OF R ESULTS: Differentiation of transudate and exudate fluid: TRANSUDATE EXUDATE Color- Clear,straw colored Clear,turbid,bloody,purulent RBCs- Usually none to few Often present in high numbers WBCs- Usually none to few Often present in high numbers DIFF Few lymphocytes or Lymphocytes, neutrophils, andCount- mesothelial cells. polymorphonuclear cells . Body Fluid RBC 104 /mm3 [facility] Pathologist interpretation o f Body fluid testsOrdered By: Domenico Wen on 12-30-2024 Pathologist interpretation (Body fld) [Interp] Reviewed [facility] Comment on above: Previous reported re sult: May follow Edited by: FLAVIA on 12/30/24:1543LYMPHOCYTOSIS WITH ATYPICAL FEATURES INCLUDING OCCASIONAL MITOTIC FIGURES.PATIENT HISTORY OF UNILATERAL TONSILLAR ENLARGEMENT NOTED.SUGGEST FURTHER EVALUATION TO RULE OUT A LYMPHOPROLIFERATIVE DISORDER IS SUGGESTED IF CLINICALLY INDICATED. Janice Gu MD 12/30/2024 AMENDED REPORT 12/30/24 1543 PATH COMM/BF previously reported as: May follow Protein, Body Fluidon 2024 Protein [Mass/Vol] 4.6 g/dL Normal Not Establ. [facility] Comment on above: Order Comment: BODY FLUID BLEURAL EFFUSION LT THORA Performed By: #### L 200.0200, M100.2900, M100.4001, L001.0705, L503.0300, M100.2000, L504.0250 #### [facility] [address] [place], [place], [address] Protein, Totalon 12-30-2024 T PROT Normal 5.9-8.4 [facility] Comment on above: Order Comment: BODY FLUID Result Comment: BODY FLUID COLLECTED Performed By: #### L 200.0200, M100.2900, M100.4001, L001.0705, L503.0300, M100.2000, L504.0250 #### [facility] [address] [place], [place], [address] Special Stain Group IIon Special Stain Group II ------ Patient Age/Sex Location Account Attending Physician JUJU ACCERES 79/M [id number] Dr. Domenico Wen, DO Specimen: [id number] Received: 12/30/24 Status: LOUIE Hayes Num: [id number] Spec Type: Fluid Subm Dr: Dr. Domenico Wen, DO HEADER OPERATION: Ultrasound guided thoracentesis PRE-OP DIAGNOSIS: Pleural effusion TISSUE SUBMITTED: A- Thoracentesis fluid for cytology DIAGNOSIS CYTOLOGY A. Thorax, pleural effusion, thoracentesis (cytospin, cellblock): - Lymphocytosis with atypical features suspicious for a lymphoproliferative disorder. - Further evaluation of the cellblock with IHC is pending and an addendum report will follow. CYTOLOGY STUDY Slides are reviewed. CYTOLOGY GROSS A. Received is 110 ml of qppj-mqscon-kodpsq fluid labeled with the patient's name and and designated per the requisition as Thoracentesis fluid. Submitted for cytology and cell block preparation. 12/30/2024 CPT: 96680,[id number] Signed (signature on file) Dr. Janice Gu MD 12/31/241902 Normal [facility] Comment on above: Performed By: #### P SSII #### [facility] [place], [address] Specimen source identificati on of body fluidOrdered By: Domenico Wen on 12-30-2024 Specimen source Nom (Body fld) THORACENTESIS [facility] Thoracentesis [facility] Thoracentesis W [facility] Imaging Services [address] [place] [address] Thoracentesis W US MR#: [id number] Acct: [id number] Name: JUJU CACERES Rep #: [id number] : 1945 M 79 From: Rodney Gavin PCP: Dr. Michelet Hernandez DO Status: REG CLI Study: Thoracentesis W US Date of Exam: 12/30/24 Exam# [id number] Ordering Dr: Domenico Wne DO PROCEDURE: THORACENTESIS W US 12/30/2024 REASON FOR EXAM: PLEURAL EFFUSION. Left pleural effusion TECHNIQUE: THORACENTESIS W US, diagnostic and therapeutic. COMPARISON: None. FINDINGS: Procedure: Following informed consent, and using standard sterile technique, an ultrasound-guided left thoracentesis was performed. 2% lidocaine local anesthesia was followed by placement of a 5 [place] catheter into the left pleural fluid collection via a posterior approach. A proximally 1160 mL light clear yellow fluid was successfully removed, a portion sent to the laboratory for evaluation. No complication was encountered, and the patient left the department in good condition without significant complaint. US/Thoracentesis W US IMPRESSION: Successful diagnostic and therapeutic ultrasound-guided left thoracentesis. Laboratory results pending. Reading Location: [place] [address] CC: Dr. Domenico Wen DO; Dr. Michelet Hernandez DO Director Of Maternity Services: Signed Normal [facility] Activated partial thrombopla stin time (aPTT) in platelet poor plasma by coagulation aOrdered By: Domenico Wen on 12-27-2024 aPTT Coag (PPP) [Time] 38.7 s High 24.1-36.2 [facility] International normalized rat io (INR) calculationOrdered By: Domenico Wen on 12-27-2024 INR Coag (Bld) [Relative time] 1.1 {INR} [facility] LDHon 12-27-2024 LDH 272 U/L High 87-241 [facility] Comment on above: Order Comment: 1 Performed By: #### L 504.2610, L300.3900, L300.4310, L100.0625 ####[facility] [address] [place], [address] Lactate dehydrogenase (LDH) measurementOrdered By: Domenico Wen on 12-27-2024 LDH [Catalytic activity/Vol] 272 U/L High 87-241 [facility] PLATELET COUNTon 12-27-2024 Platelets (Bld) [#/Vol] 358 10*3/uL Normal 150-450 [facility] Comment on above: Performed By: #### L 504.2610, L300.3900, L300.4310, L100.0625 ####[facility] [address] [place], [address] Partial Thromboplast Timeon 12-27-2024 aPTT Coag (Bld) [Time] 38.7 s High 24.1-36.2 [facility] Comment on above: Performed By: #### L 504.2610, L300.3900, L300.4310, L100.0625 ####[facility] [address] [place], [address] Platelet countOrdered By: Delarosa on 12-27-2024 Platelets (Bld) [#/Vol] 358 10*3/uL 150-450 [facility] Prothrombin Time w/INRon INR Coag (PPP) [Relative time] 1.1 {INR} Normal [facility] Comment on above: Performed By: #### L 504.2610, L300.3900, L300.4310, L100.0625 ####[facility] [address] [place], [address] PT Coag (PPP) [Time] 14.4 s Normal 11.7-14.9 [facility] Comment on above: Performed By: #### L 504.2610, L300.3900, L300.4310, L100.0625 ####[facility] [address] [place], [address] Prothrombin timeOrdered By: Domenico Wen on 12-27-2024 PT Coag (PPP) [Time] 14.4 s 11.7-14.9 [facility] Pulmonary Visit Reporton Pulmonary Visit Report [facility] [address] [place] [address] OFFICE VISIT Date of Service: 12/27/24 MR#: [id number] Acct: [id number] Name: JUJU CACERES Rep #: [id number] : 1945 Provider: Dr. Domenico Wen, Age/Sex: 79/M Location: [facility] Status: Signed Assessment and Plan Assessment and Plan (1) Lung mass: Status: Acute Plan: The patient presented today for the evaluation of a lung mass which was identified on CT imaging completed through [facility] on December 21, 2024. That imaging [...] to the office of Dr. Harvey at [facility]. (2) Pleural effusion: Status: Acute Plan: [...] air Intake Visit Reasons: New Lung Mass Title Processor Required: No Accompanied by: Allergies No Known Allergies Allergy (Verified 12/27/24 10:38) Medications ???Medication ???Instructions ???Recorded ???Confirmed ???Type vit A 1000 unit-C 300 mg-E 100 tab PO 12/27/24 12/27/24 History sgyx-B1-K3-lutn 2 re-ykaf-lawcqr tablet Have you fallen in the past year?: No [facility] Medical History (Updated 12/27/24 @ 11:[address] 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 Normal [facility] CT THORAX W/ CONTRASTon 12-01 CT THORAX [...] 12/23/2024 8:44:38 AM Ordering Provider: MICHELET HERNANDEZ [facility] CT ABDOMEN/PELVIS W/CONTRAST on 12-22-2024 CT ABDOMEN/PELVIS [...] 12/22/2024 10:03:43 AM Ordering Provider: MICHELET HERNANDEZ [facility] RADHA + Protein Elect, Serumon 12-09-2024 Albumin [Mass/Vol] 3.5 g/dL Normal 2.9-4.4 [facility] Comment on above: Order Comment: ADD O N PLEASE-SWRIGHTN Performed By: #### P SSII #### [facility] [address] [place], [address] Albumin/Globulin [Mass ratio] 0.9 {ratio} Normal 0.7-1.7 [facility] Comment on above: Order Comment: ADD O N PLEASE-SWRIGHTN Performed By: #### P SSII #### [facility] [address] [place], [address] (070 WIUOG-9-ITWD 0.4 g/dL Normal 0.0-0.4 [facility] Comment on above: Order Comment: ADD O N PLEASE-SWRIGHTN Performed By: #### P SSII #### [facility] [address] [place], [address] HTVIO-2-GUCE 1.2 g/dL High 0.4-1.0 [facility] Comment on above: Order Comment: ADD O N PLEASE-SWRIGHTN Performed By: #### P SSII #### [facility] [address] [place], [address] BETA GLOBULIN 1.2 g/dL Normal 0.7-1.3 [facility] Comment on above: Order Comment: ADD O N PLEASE-SWRIGHTN Performed By: #### P SSII #### [facility] [address] [place], [address] GAMMA GLOBULIN 1.5 g/dL Normal 0.4-1.8 [facility] [facility] Comment on above: Order Comment: ADD O N PLEASE-SWRIGHTN Performed By: #### P SSII #### [facility] [address] [place], [address] Globulin (S) [Mass/Vol] 4.3 g/dL Abnormal 2.2-3.9 [facility] Comment on above: Order Comment: ADD O N PLEASE-SWRIGHTN Performed By: #### P SSII #### [facility] [address] [place], [address] RADHA RESULT,S Comment Abnormal . [facility] Comment on above: Order Comment: ADD O N PLEASE-SWRIGHTN Result Comment: Immu nofixation shows IgG monoclonal protein with lambda light chain specificity. Performed By: #### P SSII #### [facility] [address] [place], [address] IMMUNOGLOB A QN 275 mg/dL Normal 61-437 [facility] Comment on above: Order Comment: ADD O N PLEASE-SWRIGHTN Performed By: #### P SSII #### [facility] [address] [place], [address] IMMUNOGLOB G QN 1476 mg/dL Normal 603-1613 [facility] Comment on above: Order Comment: ADD O N PLEASE-SWRIGHTN Performed By: #### P SSII #### [facility] [address] [place], [place], [id number] IMMUNOGLOB M QN 70 mg/dL Normal 15-143 [facility] Comment on above: Order Comment: ADD O N PLEASE-SWRIGHTN Performed By: #### P SSII #### [facility] [address] [place], [address] M-Kvng 0.6 g/dL Abnormal Not Observed [facility] Comment on above: Order Comment: ADD O N PLEASE-SWRIGHTN Performed By: #### P SSII #### [facility] [address] [place], [address] NOTE: Comment Normal . [facility] Comment on above: Order Comment: ADD O N PLEASE-SWRIGHTN Result Comment: Prot ein electrophoresis scan will follow via computer, mail, or associate agent insurance sales delivery. Performed at: [address] [id number] Community Development Planner: Torito Green PhD, Phone: [phone] Performed By: #### P SSII #### [facility] [address] [place], [address] Protein [Mass/Vol] 7.8 g/dL Normal 6.0-8.5 [facility] Comment on above: Order Comment: ADD O N PLEASE-SWRIGHTN Performed By: #### P SSII #### [facility] [address] [place], [place], [id number] Absolute lymphocyte countOrd ered By: Michelet Hernandez on 12-02-2024 Lymphocytes Auto (Unsp spec) [#/Vol] 0.84 10*3/uL 0.83-4.51 [facility] Absolute neutrophil countOrd ered By: Michelet Hernandez on 12-02-2024 Neutrophils (Bld) [#/Vol] 6.0 10*3/uL 2.0-7.7 [facility] Albumin Elph [Mass/Vol]Order ed By: Michelet Hernandez on 12-02-2024 Albumin [Mass/Vol] 3.5 g/dL 2.9-4.4 [facility] Anion gap in Serum or Plasma Ordered By: Michelet Hernandez on 12-02-2024 Anion gap [Moles/Vol] 16 mmol/L High 5-15 [facility] Automated lymphocyte count a s percentage of total leukocytesOrdered By: Michelet Hernadnez on 12-02-2024 Lymphocytes/100 WBC Auto (Unsp spec) 10.8 % Low 19-41 [facility] BUN/creatinine ratioOrdered By: Michelet Hernandez on 12-02-2024 Urea nitrogen/Creatinine [Mass ratio] 18.3 mg/mg 10-20 [facility] Basophil percentageOrdered B y: Michelet Hernandez on 12-02-2024 Basophils/100 WBC (Bld) 0.6 % 0-1 [facility] Bilirubin Test strip Ql (U)O rdered By: Michelet Hernandez on 12-02-2024 Bilirubin Ql (U) Negative Negative [facility] Bilirubin, totalOrdered By: Michelet Hernandez on 12-02-2024 Bilirubin [Mass/Vol] 0.43 mg/dL 0.00-1.30 [facility] CBC W/Diff, Automatedon Absolute Lymph 0.84 X10 3/uL Normal 0.83-4.51 [facility] Comment on above: Performed By: #### L 501.9910, L4, L3100.3425, L501.9520, L100.0100, L101.9900, L501.6710, L500.4050 ####[facility] [address] [place], [place], [id number] Absolute Neut 6.0 X10 3/uL Normal 2.0-7.7 [facility] Comment on above: Performed By: #### L 501.9910, L4, L3100.3425, L501.9520, L100.0100, L101.9900, L501.6710, L500.4050 ####[facility] [address] [place], [address] Basophils/100 WBC (Bld) 0.6 % Normal 0-1 [facility] Comment on above: Performed By: #### L 501.9910, L400.2010, L3100.3425, L501.9520, L100.0100, L101.9900, L501.6710, L500.4050 ####[facility] [address] [place], [address] Eosinophils/100 WBC (Bld) 1.3 % Normal 0-5 [facility] Comment on above: Performed By: #### L 501.9910, L400.2010, L3100.3425, L501.9520, L100.0100, L101.9900, L501.6710, L500.4050 ####[facility] [address] [place], [address] Erythrocyte distribution width (RBC) [Ratio] 13.8 % Normal 11.6-14.6 [facility] Comment on above: Performed By: #### L 501.9910, L400.2010, L3100.3425, L501.9520, L100.0100, L101.9900, L501.6710, L500.4050 ####[facility] [address] [place], [address] Hematocrit (Bld) [Volume fraction] 38.9 % Low 40-54 [facility] Comment on above: Performed By: #### L 501.9910, L400.2010, L3100.3425, L501.9520, L100.0100, L101.9900, L501.6710, L500.4050 ####[facility] [address] [place], [address] Hemoglobin (Bld) [Mass/Vol] 12.4 g/dL Low 13.0-16.5 [facility] Comment on above: Performed By: #### L 501.9910, L400.2010, L3100.3425, L501.9520, L100.0100, L101.9900, L501.6710, L500.4050 ####[facility] [address] [place], [address] IG% 0.300 Normal 0.0-0.9 [facility] Comment on above: Result Comment: IG% - Immature Granulocytes (promyelocytes, myelocytes and metamyelocytes) > 1% indicates that a LEFT SHIFT is Present. Performed By: #### L 501.9910, L4.2010, L3100.3425, L501.9520, L100.0100, L101.9900, L501.6710, L500.4050 ####[facility] [address] [place], [address] Lymphocytes/100 WBC (Bld) 10.8 % Low 19-41 [facility] Comment on above: Performed By: #### L 501.9910, L4.2010, L3100.3425, L501.9520, L100.0100, L101.9900, L501.6710, L500.4050 ####[facility] [address] [place], [address] MCH (RBC) [Entitic mass] 28.6 pg Normal 27.0-32.0 [facility] Comment on above: Performed By: #### L 501.9910, L4.2010, L3100.3425, L501.9520, L100.0100, L101.9900, L501.6710, L500.4050 ####[facility] [address] [place], [address] MCHC (RBC) [Mass/Vol] 31.9 g/dL Low 32-36 [facility] Comment on above: Performed By: #### L 501.9910, L400.2010, L3100.3425, L501.9520, L100.0100, L101.9900, L501.6710, L500.4050 ####[facility] [address] [place], [address] MCV (RBC) [Entitic vol] 89.6 fL Normal 80-94 [facility] Comment on above: Performed By: #### L 501.9910, L4.2010, L3100.3425, L501.9520, L100.0100, L101.9900, L501.6710, L500.4050 ####[facility] [address] [place], [address] Monocytes/100 WBC (Bld) 10.0 % Normal 0-10 [facility] Comment on above: Performed By: #### L 501.9910, L4, L3100.3425, L501.9520, L100.0100, L101.9900, L501.6710, L500.4050 ####[facility] [address] [place], [address] Neutrophils/100 WBC (Bld) 77.0 % High 47-70 [facility] Comment on above: Performed By: #### L 501.9910, L4.2010, L3100.3425, L501.9520, L100.0100, L101.9900, L501.6710, L500.4050 ####[facility] [address] [place], [address] Nucleated RBC (Bld) [#/Vol] 0 10*3/uL Normal 0-5 [facility] Comment on above: Performed By: #### L 501.9910, L4, L3100.3425, L501.9520, L100.0100, L101.9900, L501.6710, L500.4050 ####[facility] [address] [place], [address] Platelet mean volume (Bld) [Entitic vol] 10.4 fL Normal 6.2-12.0 [facility] Comment on above: Performed By: #### L 501.9910, L400.2010, L3100.3425, L501.9520, L100.0100, L101.9900, L501.6710, L500.4050 ####[facility] [address] [place], [address] Platelets (Bld) [#/Vol] 391 10*3/uL Normal 150-450 [facility] Comment on above: Performed By: #### L 501.9910, L400.2010, L3100.3425, L501.9520, L100.0100, L101.9900, L501.6710, L500.4050 ####[facility] [address] [place], [address] RBC (Bld) [#/Vol] 4.34 10*6/uL Low 4.6-6.2 [facility] Comment on above: Performed By: #### L 501.9910, L4.2010, L3100.3425, L501.9520, L100.0100, L101.9900, L501.6710, L500.4050 ####[facility] [address] [place], [address] RDW SD 45.2 fl High 35.1-43.9 [facility] Comment on above: Performed By: #### L 501.9910, L400.2010, L3100.3425, L501.9520, L100.0100, L101.9900, L501.6710, L500.4050 ####[facility] [address] [place], [address] WBC (Bld) [#/Vol] 7.8 10*3/uL Normal 4.4-11.0 [facility] Comment on above: Performed By: #### L 501.9910, L400.2010, L3100.3425, L501.9520, L100.0100, L101.9900, L501.6710, L500.4050 ####[facility] [address] [place], [address] CRPon 12-02-2024 C-REACTIVE PROT 87.20 mg/L High 0.0-3.0 [facility] Comment on above: Performed By: #### L 501.9910, L4, L3100.3425, L501.9520, L100.0100, L101.9900, L501.6710, L500.4050 ####[facility] [address] [place], [place], [id number] Carbon dioxide, total [Moles /volume] in Central venous bloodOrdered By: Michelet Hernandez on 12-02-2024 CO2 [Moles/Vol] 24.4 mmol/L 21.0-32.0 [facility] Chloride assayOrdered By: Carin Hernandez on 12-02-2024 Chloride [Moles/Vol] 98 mmol/L 98-108 [facility] Comprehensive Metabolic Prof ilon 12-02-2024 Albumin [Mass/Vol] 4.1 g/dL Normal 3.4-4.8 [facility] Comment on above: Performed By: #### L 501.9910, L4.2010, L3100.3425, L501.9520, L100.0100, L101.9900, L501.6710, L500.4050 ####[facility] [address] [place], [place], [id number] Albumin/Globulin [Mass ratio] 1.0 {ratio} Normal 0.9-2.4 [facility] Comment on above: Performed By: #### L 501.9910, L400, L3100.3425, L501.9520, L100.0100, L101.9900, L501.6710, L500.4050 ####[facility] [address] [place], [address] ALK PHOS 131 U/L High 40-129 [facility] Comment on above: Performed By: #### L 501.9910, L4, L3100.3425, L501.9520, L100.0100, L101.9900, L501.6710, L500.4050 ####[facility] [address] [place], [address] ALT [Catalytic activity/Vol] 15 U/L Normal <=46 [facility] Comment on above: Performed By: #### L 501.9910, L4, L3100.3425, L501.9520, L100.0100, L101.9900, L501.6710, L500.4050 ####[facility] [address] [place], [address] AST [Catalytic activity/Vol] 20 U/L Normal <=37 [facility] Comment on above: Performed By: #### L 501.9910, L4, L3100.3425, L501.9520, L100.0100, L101.9900, L501.6710, L500.4050 ####[facility] [address] [place], [address] Bilirubin [Mass/Vol] 0.43 mg/dL Normal 0.00-1.30 [facility] Comment on above: Performed By: #### L 501.9910, L4, L3100.3425, L501.9520, L100.0100, L101.9900, L501.6710, L500.4050 ####[facility] [address] [place], [address] BUN/CRE 18.3 RATIO Normal 10-20 [facility] Comment on above: Performed By: #### L 501.9910, L4, L3100.3425, L501.9520, L100.0100, L101.9900, L501.6710, L500.4050 ####[facility] [address] [place], [address] Calcium [Mass/Vol] 10.7 mg/dL Normal 7.6-11.0 [facility] Comment on above: Performed By: #### L 501.9910, L4, L3100.3425, L501.9520, L100.0100, L101.9900, L501.6710, L500.4050 ####[facility] [address] [place], [address] Chloride [Moles/Vol] 98 mmol/L Normal 98-108 [facility] Comment on above: Performed By: #### L 501.99, , L3100.3425, L501.9520, L100.0100, L101.9900, L501.6710, L500.4050 ####[facility] [address] [place], [address] CO2 [Moles/Vol] 24.4 mmol/L Normal 21.0-32.0 [facility] Comment on above: Performed By: #### L 501.9910, L4, L3100.3425, L501.9520, L100.0100, L101.9900, L501.6710, L500.4050 ####[facility] [address] [place], [address] Creatinine [Mass/Vol] 1.60 mg/dL High 0.70-1.20 [facility] Comment on above: Performed By: #### L 501.9910, L4, L3100.3425, L501.9520, L100.0100, L101.9900, L501.6710, L500.4050 ####[facility] [address] [place], [address] GAP 16 High 5-15 [facility] Comment on above: Performed By: #### L 501.9910, L400.2010, L3100.3425, L501.9520, L100.0100, L101.9900, L501.6710, L500.4050 ####[facility] [address] [place], [address] GFR/1.73 sq M.predicted among non-blacks MDRD (S/P/Bld) [Vol rate/Area] 43 mL/min/{1.73_m2} Low >60 [facility] Comment on above: Result Comment: mL/m in/1.73m2 CKD-EPI Creatinine Equation (2020) Performed By: #### L 501.9910, L4.2010, L3100.3425, L501.9520, L100.0100, L101.9900, L501.6710, L500.4050 ####[facility] [address] [place], [address] Globulin (S) [Mass/Vol] 4.3 g/dL High 2.2-4.2 [facility] Comment on above: Performed By: #### L 501.9910, L4.2010, L3100.3425, L501.9520, L100.0100, L101.9900, L501.6710, L500.4050 ####[facility] [address] [place], [address] Glucose [Mass/Vol] 97 mg/dL Normal 70-99 [facility] Comment on above: Performed By: #### L 501.9910, L4.2010, L3100.3425, L501.9520, L100.0100, L101.9900, L501.6710, L500.4050 ####[facility] [address] [place], [address] Potassium [Moles/Vol] 4.7 mmol/L Normal 3.3-5.1 [facility] Comment on above: Performed By: #### L 501.9910, L400.2010, L3100.3425, L501.9520, L100.0100, L101.9900, L501.6710, L500.4050 ####[facility] [address] [place], [address] Sodium [Moles/Vol] 139 mmol/L Normal 133-145 [facility] Comment on above: Performed By: #### L 501.9910, L400.2010, L3100.3425, L501.9520, L100.0100, L101.9900, L501.6710, L500.4050 ####[facility] [address] [place], [address] T PROT 8.4 g/dL Normal 5.9-8.4 [facility] Comment on above: Performed By: #### L 501.9910, L4.2010, L3100.3425, L501.9520, L100.0100, L101.9900, L501.6710, L500.4050 ####[facility] [address] [place], [address] Urea nitrogen [Mass/Vol] 29 mg/dL High 4-19 [facility] Comment on above: Performed By: #### L 501.9910, L4.2010, L3100.3425, L501.9520, L100.0100, L101.9900, L501.6710, L500.4050 ####[facility] [address] [place], [address] Eosinophil percentageOrdered By: Michelet Hernandez on 12-02-2024 Eosinophils/100 WBC (Bld) 1.3 % 0-5 [facility] Erythrocyte Sed Rateon 12-02 SED RATE 42 mm/hr High 0-20 [facility] Comment on above: Performed By: #### L 501.9910, L400.2010, L3100.3425, L501.9520, L100.0100, L101.9900, L501.6710, L500.4050 ####[facility] [address] [place], [address] Erythrocyte distribution wid th ratioOrdered By: Michelet Hernandez on 12-02-2024 Erythrocyte distribution width (RBC) [Ratio] 13.8 % 11.6-14.6 [facility] Erythrocyte distribution wid th standard deviationOrdered By: Michelet Hernandez on 12-02-2024 Erythrocyte distribution width (RBC) [Ratio] 45.2 fl High 35.1-43.9 [facility] Erythrocyte sedimentation ra teOrdered By: Michelet Hernandez on 12-02-2024 ESR (Bld) [Velocity] 42 mm/h High 0-20 [facility] Glomerular filtration rate ( GFR) estimation/1.73 sq m using serum, plasma, or whole bOrdered By: Michelet Hernandez on 12-02-2024 GFR/1.73 sq M.predicted among non-blacks MDRD (S/P/Bld) [Vol rate/Area] 43 mL/min/{1.73_m2} Low >60 [facility] Comment on above: mL/min/1.73m2 CKD-EP I Creatinine Equation (2020) Hematocrit Auto (Bld) [Volum e fraction]Ordered By: Michelet Hernandez on 12-02-2024 Hematocrit (Bld) [Volume fraction] 38.9 % Low 40-54 [facility] Hemoglobin measurementOrdere d By: Michelet Hernandez on 12-02-2024 Hemoglobin (Bld) [Mass/Vol] 12.4 g/dL Low 13.0-16.5 [facility] Immature granulocytes/100 WB C Auto (Bld)Ordered By: Michelet Hernandez on 12-02-2024 Immature granulocytes/100 WBC (Bld) 0.300 % 0.0-0.9 [facility] Comment on above: IG% - Immature Granu locytes (promyelocytes, myelocytes and metamyelocytes) > 1% indicates that a LEFT SHIFT is Present. Interpretation of serum or p lasma protein pattern by immunofixation (narrative resultOrdered By: Michelet Hernandez on 12-02-2024 Protein Fractions Immunofixation Ko [Interp] 0.6 g/dL High Not Observed [facility] Ketones Test strip Ql (U)Ord ered By: Michelet Hernandez on 12-02-2024 Ketones Ql (U) 5 mg/dl High Negative [facility] - Chemistry and C hemistry - challengeOrdered By: Michelet Hernandez on 12-02-2024 AST [Catalytic activity/Vol] 20 U/L <38 [facility] MCV (mean corpuscular volume ) determinationOrdered By: Michelet Hernandez on 12-02-2024 MCV (RBC) [Entitic vol] 89.6 fL 80-94 [facility] Mean corpuscular hemoglobin (MCH) determinationOrdered By: Michelet Hernandez on 12-02-2024 MCH (RBC) [Entitic mass] 28.6 pg 27.0-32.0 [facility] Mean corpuscular hemoglobin concentration (MCHC) determinationOrdered By: Michelet Hernandez on 12-02-2024 MCHC (RBC) [Mass/Vol] 31.9 g/dL Low 32-36 [facility] Mean platelet volume determi nationOrdered By: Michelet Hernandez on 12-02-2024 Platelet mean volume (Bld) [Entitic vol] 10.4 fL 6.2-12.0 [facility] Monocyte percentageOrdered B y: Michelet Hernandez on 12-02-2024 Monocytes/100 WBC (Bld) 10.0 % 0-10 [facility] Neutrophil percentageOrdered By: Michelet Hernandez on 12-02-2024 Neutrophils/100 WBC (Bld) 77.0 % High 47-70 [facility] No Panel InformationOrdered By: Michelet Hernandez on 12-02-2024 Addendum Document Comment . [facility] Comment on above: Protein electrophore sis scan will follow via computer,mail, or associate agent insurance sales delivery.Performed at: [address] [id number] Director: Torito Green PhD, Phone: [phone] Nucleated red blood cell per centageOrdered By: Michelet Hernandez on 12-02-2024 Nucleated RBC/100 WBC (Bld) [Ratio] 0 % 0-5 [facility] PSA,Total - Annual Screenon 12-02-2024 PSA,TOT SCREEN 3.39 ng/mL Normal 0.02-4.00 [facility] Comment on above: Result Comment: This test [...] confirm baseline values. Performed By: #### L 501.9910, L400.2011, L3100.3425, L501.9520, L100.0100, L101.9900, L501.6710, L500.4050 ####[facility] [address] [place], [place], [id number] Platelet countOrdered By: Carin Hernandez on 12-02-2024 Platelets (Bld) [#/Vol] 391 10*3/uL 150-450 [facility] Potassium measurement (mass/ volume)Ordered By: Michelet Hernandez on 12-02-2024 Potassium (Unsp spec) [Mass/Vol] 4.7 mmol/L 3.3-5.1 [facility] Protein Test strip Ql (U)Ord ered By: Michelet Hernandez on 12-02-2024 Protein Ql (U) 15 mg/dl High Negative [facility] RBC Auto (Bld) [#/Vol]Ordere d By: Michelet Hernandez on 12-02-2024 RBC (Bld) [#/Vol] 4.34 10*6/uL Low 4.6-6.2 [facility] Serum creatinine measurement (mass/volume)Ordered By: Michelet Hernandez on 12-02-2024 Creatinine [Mass/Vol] 1.60 mg/dL High 0.70-1.20 [facility] Serum globulin measurement ( mass/volume)Ordered By: Michelet Hernandez on 12-02-2024 Globulin (S) [Mass/Vol] 4.3 g/dL High 2.2-3.9 [facility] Serum glucose measurement (m ass/volume)Ordered By: Michelet Hernandez on 12-02-2024 Glucose [Mass/Vol] 97 mg/dL 70-99 [facility] Serum or plasma C reactive p rotein measurement (mass/volume)Ordered By: Michelet Hernandez on 12-02-2024 CRP [Mass/Vol] 87.20 mg/L High 0.0-3.0 [facility] Serum or plasma IgA measurem ent (mass/volume)Ordered By: Michelte Hernandez on 12-02-2024 IgA [Mass/Vol] 275 mg/dL 61-437 [facility] Serum or plasma IgG measurem ent (mass/volume)Ordered By: Michelet Hernandez on 12-02-2024 IgG [Mass/Vol] 1476 mg/dL 603-1613 [facility] Serum or plasma alanine keen otransferase (ALT) measurementOrdered By: Michelet Hernandez on 12-02-2024 ALT [Catalytic activity/Vol] 15 U/L <47 [facility] Serum or plasma albumin emma urement (mass/volume)Ordered By: Michelet Hernandez on 12-02-2024 Albumin [Mass/Vol] 4.1 g/dL 3.4-4.8 [facility] Serum or plasma albumin/glob ulin mass ratioOrdered By: Michelet Hernandez on 12-02-2024 Albumin/Globulin [Mass ratio] 1.0 {ratio} 0.9-2.4 [facility] Serum or plasma alkaline david sphatase measurementOrdered By: Michelet Hernandez on 12-02-2024 ALP [Catalytic activity/Vol] 131 U/L High 40-129 [facility] Serum or plasma alpha 1 glob ulin measurement by electrophoresis (mass/volume)Ordered By: Michelet Hernandez on 12-02-2024 Alpha 1 globulin Elph [Mass/Vol] 0.4 g/dL 0.0-0.4 [facility] Alpha 1 globulin Elph [Mass/Vol] 1.2 g/dL High 0.4-1.0 [facility] Serum or plasma beta globuli n measurement by electrophoresis (mass/volume)Ordered By: Michelet Hernandez on 12-02-2024 Beta globulin Elph [Mass/Vol] 1.2 g/dL 0.7-1.3 [facility] Serum or plasma calcium emma urement (mass/volume)Ordered By: Michelet Hernandez on 12-02-2024 Calcium [Mass/Vol] 10.7 mg/dL 7.6-11.0 [facility] Serum or plasma gamma globul in measurement by electrophoresis (mass/volume)Ordered By: Michelet Hernandez on 12-02-2024 Gamma globulin Elph [Mass/Vol] 1.5 g/dL 0.4-1.8 [facility] Serum or plasma immunoelectr ophoresis interpretation (nominal result)Ordered By: Michelet Hernandez on 12-02-2024 Interpretation IEP [Interp] Comment High . [facility] Comment on above: Immunofixation shows IgG monoclonal protein with lambdalight chain specificity. Serum or plasma protein emma urement (mass/volume)Ordered By: Michelet Hernandez on 12-02-2024 Protein [Mass/Vol] 7.8 g/dL 6.0-8.5 [facility] Serum or plasma urea nitroge n measurement (mass/volume)Ordered By: Michelet Hernandez on 12-02-2024 Urea nitrogen [Mass/Vol] 29 mg/dL High 4-19 [facility] Sodium levelOrdered By: Michelet Hernandez on 12-02-2024 Sodium [Moles/Vol] 139 mmol/L 133-145 [facility] TSH DL <= 0.005 mIU/L QnOrde red By: Michelet Hernandez on 12-02-2024 TSH Qn 1.310 uIU/mL 0.300-4.200 [facility] Thyroid Stim Hormone (TSH)on 12-02-2024 TSH 1.310 uIU/mL Normal 0.300-4.200 [facility] Comment on above: Performed By: #### L 501.9910, L400.2011, L3100.3425, L501.9520, L100.0100, L101.9900, L501.6710, L500.4050 ####[facility] [address] [place], [place], [id number] Total proteinOrdered By: Shakira Hernandez on 12-02-2024 Protein [Mass/Vol] 8.4 g/dL 5.9-8.4 [facility] Urinalysis, Routine (Dipstic k)on 12-02-2024 BILIRUBIN URINE Negative Normal Negative [facility] Comment on above: Order Comment: CLEAN CATCH Performed By: #### P SSII #### [facility] [address] [place], [address] GLUCOSE, UR Normal Normal Normal [facility] Comment on above: Order Comment: CLEAN CATCH Performed By: #### P SSII #### [facility] [address] [place], [address] KETONE UR 5 mg/dl Abnormal Negative [facility] Comment on above: Order Comment: CLEAN CATCH Performed By: #### P SSII #### [facility] [address] [place], [address] LEUK ESTERASE Negative Normal Negative [facility] Comment on above: Order Comment: CLEAN CATCH Performed By: #### P SSII #### [facility] [address] [facility] [address] OCCULT BLOOD-UR Negative Normal Negative [facility] Comment on above: Order Comment: CLEAN CATCH Performed By: #### P SSII #### [facility] [address] [place], [address] pH UR 5.0 Normal 5.0 - 8.0 [facility] Comment on above: Order Comment: CLEAN CATCH Performed By: #### P SSII #### [facility] [address] [place], [address] PROT DIPSTX 15 mg/dl Abnormal Negative [facility] Comment on above: Order Comment: CLEAN CATCH Performed By: #### P SSII #### [facility] [address] [place], [address] SP.GR. DIPSTX 1.020 Normal 1.002-1.030 [facility] Comment on above: Order Comment: CLEAN CATCH Performed By: #### P SSII #### [facility] [address] [place], [place], [id number] UROBILI Normal Normal Normal [facility] Comment on above: Order Comment: CLEAN CATCH Performed By: #### P SSII #### [facility] [address] [place], [address] Urine clarityOrdered By: Shakira Hernandez on 12-02-2024 Clarity (U) Clear Normal Clear [facility] Comment on above: Order Comment: CLEAN CATCH Performed By: #### P SSII #### [facility] [address] [place], [address] Urine color determinationOrd ered By: Michelet Hernandez on 12-02-2024 Color (U) Straw Normal Yellow [facility] Comment on above: Order Comment: CLEAN CATCH Performed By: #### P SSII #### [facility] [address] [place], [address] Urine glucose detectionOrder ed By: Michelet Hernandez on 12-02-2024 Glucose Ql (U) Normal mg/dl Normal [facility] Urine leukocyte esterase det ection by dipstickOrdered By: Michelet Hernandez on 12-02-2024 Leukocyte esterase Test strip Ql (U) Negative Negative [facility] Urine nitrite test by dipsti ckOrdered By: Michelet Hernandez on 12-02-2024 Nitrite Ql (U) Negative Normal Negative [facility] Comment on above: Order Comment: CLEAN CATCH Performed By: #### P SSII #### [facility] [address] [place], [address] Urine pHOrdered By: Michelet bear on 12-02-2024 pH (U) 5.0 [pH] 5.0 - 8.0 [facility] Urine specific gravity measu rementOrdered By: Michelet Hernandez on 12-02-2024 Specific gravity (U) [Rel density] 1.020 1.002-1.030 [facility] Urine urobilinogen measureme ntOrdered By: Michelet David on 12-02-2024 Urobilinogen Ql (U) Normal mg/dl Normal [facility] White blood cell (WBC) count Ordered By: Michelet Arriazaman on 12-02-2024 WBC (Bld) [#/Vol] 7.8 10*3/uL 4.4-11.0 [facility] .Auto Diffon 07-23-2024 Basophil, Absolute 0.0 10 3/mcL Normal 0.0-0.2 [facility] Comment on above: Performed By: #### M DW, BMP, ADIFF, CBC, ANEU, GFR, TROPHS #### [address] [address] Basophils/100 WBC (Bld) 0.3 % Normal 0.0-2.5 [facility] Comment on above: Performed By: #### M DW, BMP, ADIFF, CBC, ANEU, GFR, TROPHS #### [address] [address] Eosinophil, Absolute 0.2 10 3/mcL Normal 0.0-0.7 [facility] Comment on above: Performed By: #### M DW, BMP, ADIFF, CBC, ANEU, GFR, TROPHS #### [address] [address] Eosinophils/100 WBC (Bld) 3.3 % Normal 0.0-7.0 [facility] Comment on above: Performed By: #### M DW, BMP, ADIFF, CBC, ANEU, GFR, TROPHS #### [address] [address] Lymphocyte, Absolute 0.6 10 3/mcL Low 0.9-4.3 [facility] Comment on above: Performed By: #### M DW, BMP, ADIFF, CBC, ANEU, GFR, TROPHS #### [address] [address] Lymphocytes/100 WBC (Bld) 9.0 % Low 20.0-40.0 [facility] Comment on above: Performed By: #### M DW, BMP, ADIFF, CBC, ANEU, GFR, TROPHS #### [address] [address] Monocyte, Absolute 0.5 10 3/mcL Normal 0.1-1.4 [facility] Comment on above: Performed By: #### M DW, BMP, ADIFF, CBC, ANEU, GFR, TROPHS #### [address] [address] Monocytes/100 WBC (Bld) 7.4 % Normal 2.0-13.0 [facility] Comment on above: Performed By: #### M DW, BMP, ADIFF, CBC, ANEU, GFR, TROPHS #### [address] [address] Neutrophils/100 WBC (Bld) 80.0 % High 50.0-75.0 [facility] Comment on above: Performed By: #### M DW, BMP, ADIFF, CBC, ANEU, GFR, TROPHS #### [address] [address] .GFRon 07-23-2024 Estimated Glomerular Filtration Rate 69 ml/min/1.73sqm Normal [facility] Comment on above: Result Comment: Stages [...] BMP, ADIFF, CBC, ANEU, GFR, TROPHS #### [address] [address] .MDWon 02-21-2025 Monocyte Distribution Width 17.36 Normal 0.00-20.00 [facility] Comment on above: Result Comment: For ED adult patients suspected of sepsis, MDW<=20.0 does not rule out sepsis or risk of sepsis Performed By: #### M DW, BMP, ADIFF, CBC, ANEU, GFR, TROPHS #### [address] [address] .NEUABSon 07-23-2024 Neutrophil, Absolute 5.0 10 3/mcL Normal 2.3-8.1 [facility] Comment on above: Performed By: #### M DW, BMP, ADIFF, CBC, ANEU, GFR, TROPHS #### [place] [address] BMPon 07-23-2024 BUN/Creatinine Ratio 15 ratio Normal 7-27 [facility] Comment on above: Performed By: #### M DW, BMP, ADIFF, CBC, ANEU, GFR, TROPHS #### [place] [address] Calcium [Mass/Vol] 9.2 mg/dL Normal 8.4-10.2 [facility] Comment on above: Performed By: #### M DW, BMP, ADIFF, CBC, ANEU, GFR, TROPHS #### [place] [id number] Chloride [Moles/Vol] 104 mmol/L Normal 98-107 [facility] Comment on above: Performed By: #### M DW, BMP, ADIFF, CBC, ANEU, GFR, TROPHS #### [address] [address] CO2 [Moles/Vol] 30 mmol/L Normal 23-31 [facility] Comment on above: Performed By: #### M DW, BMP, ADIFF, CBC, ANEU, GFR, TROPHS #### [address] [address] Creatinine [Mass/Vol] 1.08 mg/dL Normal 0.70-1.30 [facility] Comment on above: Result Comment: Test ing performed on Siemens Dimension EXL analyzer using a modified kinetic Miguelina technique. Performed By: #### M DW, BMP, ADIFF, CBC, ANEU, GFR, TROPHS #### [address] [address] Electrolyte Balance 4.0 mEq/L Normal 4.0-15.0 [facility] Comment on above: Performed By: #### M DW, BMP, ADIFF, CBC, ANEU, GFR, TROPHS #### [address] [address] Glucose [Mass/Vol] 153 mg/dL High 83-110 [facility] Comment on above: Performed By: #### M DW, BMP, ADIFF, CBC, ANEU, GFR, TROPHS #### [address] [address] Potassium [Moles/Vol] 4.3 mmol/L Normal 3.5-5.1 [facility] Comment on above: Performed By: #### M DW, BMP, ADIFF, CBC, ANEU, GFR, TROPHS #### [address] [address] Sodium [Moles/Vol] 138 mmol/L Normal 136-145 [facility] Comment on above: Performed By: #### M DW, BMP, ADIFF, CBC, ANEU, GFR, TROPHS #### [address] [address] Urea nitrogen [Mass/Vol] 16 mg/dL Normal 7-18 [facility] Comment on above: Performed By: #### M DW, BMP, ADIFF, CBC, ANEU, GFR, TROPHS #### [address] [address] CBCon 07-23-2024 Erythrocyte distribution width (RBC) [Ratio] 14.1 % Normal 11.5-15.5 [facility] Comment on above: Performed By: #### M DW, BMP, ADIFF, CBC, ANEU, GFR, TROPHS #### [address] [address] Hematocrit (Bld) [Volume fraction] 39.6 % Low 40.0-52.0 [facility] Comment on above: Performed By: #### M DW, BMP, ADIFF, CBC, ANEU, GFR, TROPHS #### [place] [address] Hgb 13.5 G/dL Normal 13.0-17.5 [facility] Comment on above: Performed By: #### M DW, BMP, ADIFF, CBC, ANEU, GFR, TROPHS #### [place] [address] MCH (RBC) [Entitic mass] 30.5 pg Normal 27.0-33.0 [facility] Comment on above: Performed By: #### M DW, BMP, ADIFF, CBC, ANEU, GFR, TROPHS #### [place] [address] MCHC 34.0 G/dL Normal 32.0-36.0 [facility] Comment on above: Performed By: #### M DW, BMP, ADIFF, CBC, ANEU, GFR, TROPHS #### [place] [address] MCV (RBC) [Entitic vol] 89.7 fL Normal 81.0-100.0 [facility] Comment on above: Performed By: #### M DW, BMP, ADIFF, CBC, ANEU, GFR, TROPHS #### [place] [address] Platelet 288 10 3/mcL Normal 150-450 [facility] Comment on above: Performed By: #### M DW, BMP, ADIFF, CBC, ANEU, GFR, TROPHS #### [place] [address] Platelet mean volume (Bld) [Entitic vol] 7.2 fL Normal 6.4-10.5 [facility] Comment on above: Performed By: #### M DW, BMP, ADIFF, CBC, ANEU, GFR, TROPHS #### [place] [address] RBC 4.41 10 6/mcL Low 4.50-6.00 [facility] Comment on above: Performed By: #### M DW, BMP, ADIFF, CBC, ANEU, GFR, TROPHS #### [facility] [address] [place], [place] [address] WBC 6.2 10 3/mcL Normal 4.5-10.8 [facility] Comment on above: Performed By: #### M DW, BMP, ADIFF, CBC, ANEU, GFR, TROPHS #### [facility] [address] [place], [place] [address] CT HEAD OR BRAIN W/O CONTRAS Ton [...] 9:25:53 AM Ordering Provider: MARK Jean Baptiste [facility] LABORATORYOrdered By: Wilbert Farooq on 07-23-2024 [...] above: Interpretive Data: T esting performed on Fileblaze Dimension EXL analyzer using a modified kinetic [...] ng/L Male: 0-76 ng/L Testing performed on [employer] using a homogeneous sandwich chemiluminescent immunoassay based on [employer] technology. Urea nitrogen [Mass/Vol] 16 mg/dL Normal [...] Sensitivity Troponin I 42 ng/L Normal 0-76 [facility] Comment on above: Order Comment: hemol yzed Result Comment: High Sensitive Troponin I Reference Ranges: Female: 0-51 ng/L Male: 0-76 ng/L Testing performed on [employer] using a homogeneous sandwich chemiluminescent immunoassay based on [employer] technology. Performed By: #### M DW, BMP, ADIFF, CBC, ANEU, GFR, TROPHS #### [facility] [address] [place], [place] [address] UA 07-23-2024 Color (U) Yellow Normal [facility] Comment on above: Performed By: #### U A #### [address] [address] Glucose (U) [Mass/Vol] Negative Normal Negative [facility] Comment on above: Performed By: #### U A #### [address] [address] Ketones Ql (U) Negative Normal Negative [facility] Comment on above: Performed By: #### U A #### [address] [address] UA Appear Clear Normal Clear [facility] Comment on above: Performed By: #### U A #### [place] [address] UA Blood Negative Normal Negative [facility] Comment on above: Performed By: #### U A #### [address] [address] UA Leuk Est Negative Normal Negative [facility] Comment on above: Performed By: #### U A #### [address] [address] UA Nitrite Negative Normal Negative [facility] Comment on above: Performed By: #### U A #### [address] [address] UA pH 6.5 Normal 5.0 - 8.0 [facility] Comment on above: Performed By: #### U A #### [address] [address] UA Protein Negative Normal Negative [facility] Comment on above: Performed By: #### U A #### [address] [address] UA Spec Grav 1.020 Normal 1.015-1.025 [facility] Comment on above: Performed By: #### U A #### [address] [address] UA Specimen Type Clean Catch Normal [facility] Comment on above: Performed By: #### U A #### [address], [place] [address] UA Urobilinogen 0.2 E.U./dL Normal 0.2-1.0 [facility] Comment on above: Performed By: #### U A #### [place] [address] [place], [place] [address] Urobilinogen (U) [Mass/Vol] Negative Normal Negative [facility] Comment on above: Performed By: #### U A #### [place] [address] [place], [place] [address] Urgent Care Visit Reporton 0 06-05-2024 Urgent Care Visit Report [facility] [address], [address] [place], [place] [address] OFFICE VISIT Date of Service: 06/05/24 MR#: [id number] Acct: [id number] Name: JUJU CACERES Rep #: [id number] : 1945 Provider: GIRMA Ashley Age/Sex: 78/M Location: [facility] Status: Signed Intake Vital Signs 06/05/24 10:09 Height 5 ft 8 in Weight: 171 lb BMI 25.9 BP 122/74 H Blood Pressure Location Lt brachial Position Sitting Respiration 12 Pulse 86 Pulse Source NIBP Temp 97.8 F Temp Source Oral Pulse Oximetry (%) 98 Oxygen Delivery Method room air Intake Visit Reasons: 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 Required: No Is patient in pain?: No Allergies No Known Allergies Allergy (Verified 06/05/24 10:16) Medications ???Medication ???Instructions ???Recorded ???Confirmed ???Type chlorhexidine gluconate 0.12 % 15 ml buccal BID #300 mL 06/05/24 06/05/24 Rx mouthwash (Peridex) Have you fallen in the past year?: No HPI HPI Details: JUJU CACERES, is a 78 M who presents to [...] distress Orientation: alert, awake and oriented x3 [facility] Head: normal to inspection and normocephalic Ears: [...] past year?: No 06/05/24 1025 Date Leslie Rider Signature: Date (if appl (more content not included)... Normal [facility] Vital Signs Date Time Vital Sign Value Performing Clinician Facility 01-06-2025 10:56-0400 Diastolic blood pressure 87 mm[Hg] Denzel Ben DO Work Phone: [facility] 01-06-2025 10:56-0400 Heart rate 91 /min Denzel Negroer DO Work Phone: [facility] 01-06-2025 10:56-0400 Systolic blood pressure 158 mm[Hg] Denzel Contreras DO Work Phone: [facility] 01-06-2025 10:53-0400 Body height 167.6 cm Denzel Contreras DO Work Phone: [facility] 01-06-2025 10:53-0400 Body mass index (BMI) [Ratio] 24.69 kg/m2 Denzel Contreras DO Work Phone: [facility] 01-06-2025 10:53-0400 Body weight 69.4 kg Denzel Contreras DO Work Phone: [facility] 12-30-2024 08:57-0400 Diastolic blood pressure 77 mm[Hg] Dr. Michelet Hernandez DO Work Phone: [facility] 12-30-2024 08:57-0400 Heart rate 107 /min Dr. Michelet Hernandez DO Work Phone: [facility] 12-30-2024 08:57-0400 Respiratory rate 18 /min Dr. Michelet Hernandez DO Work Phone: [facility] 12-30-2024 08:57-0400 Systolic blood pressure 123 mm[Hg] Dr. Michelet Hernandez DO Work Phone: [facility] 12-30-2024 08:26-0400 Body temperature 98 [degF] Dr. Michelet Hernandez DO Work Phone: [facility] 12-27-2024 07:14-0400 Body height 172.[address] Michelet Hernandez DO Work Phone: [facility] 12-27-2024 07:14-0400 Body mass index (BMI) [Ratio] 23.6 kg/m2 Dr. Michelet Hernandez DO Work Phone: [facility] 12-27-2024 07:14-0400 Body temperature 97.4 [degF] Dr. Michelet Hernandez DO Work Phone: [facility] 12-27-2024 07:14-0400 Body weight 70.[address] Michelet Hernandez DO Work Phone: [facility] 12-27-2024 07:14-0400 Diastolic blood pressure 85 mm[Hg] Dr. Michelet Hernandez DO Work Phone: [facility] 12-27-2024 07:14-0400 Heart rate 102 /min Dr. Michelet Hernandez DO Work Phone: [facility] 12-27-2024 07:14-0400 Respiratory rate 18 /min Dr. Michelet Hernandez DO Work Phone: [facility] 12-27-2024 07:14-0400 SaO2% (BldA) [Mass fraction] 95 % Dr. Michelet Hernandez DO Work Phone: [facility] 12-27-2024 07:14-0400 Systolic blood pressure 160 mm[Hg] Dr. Michelet Hernandez DO Work Phone: [facility] 07-23-2024 11:11-0500 Diastolic Blood Pressure Non-Invasive 70 mm[Hg] DR MARK GORE MD [facility] 07-23-2024 11:11-0500 Heart rate 72 /min DR MARK GORE MD [facility] 07-23-2024 11:11-0500 Respiratory rate 16 /min DR AMRK GORE MD [facility] 07-23-2024 11:11-0500 Systolic Blood Pressure Non-Invasive 118 mm[Hg] DR MARK GORE MD [facility] 07-23-2024 10:13-0500 Diastolic Blood Pressure Non-Invasive 71 mm[Hg] DR MARK GORE MD [facility] 07-23-2024 10:13-0500 Heart rate 85 /min DR MARK GORE MD [facility] 07-23-2024 10:13-0500 Respiratory rate 16 /min DR MAKR GORE MD [facility] 07-23-2024 10:13-0500 Systolic Blood Pressure Non-Invasive 123 mm[Hg] DR MARK GORE MD [facility] 07-23-2024 08:05-0500 Body temperature 97.16 [degF] DR MARK GORE MD [facility] 07-23-2024 08:05-0500 Body weight 77.[address] MARK GORE MD [facility] 07-23-2024 08:05-0500 Diastolic Blood Pressure Non-Invasive 68 mm[Hg] DR MARK GORE MD [facility] 07-23-2024 08:05-0500 Heart rate 73 /min DR MARK GORE MD [facility] 07-23-2024 08:05-0500 Respiratory rate 14 /min DR MARK GORE MD [facility] 07-23-2024 08:05-0500 Systolic Blood Pressure Non-Invasive 122 mm[Hg] DR MARK GORE MD [facility] Encounters Encounter Date Encounter Type Care Provider Facility Start: 01-06-2025 End: 01-06-2025 Office consultation new/estab patient 60 min Denzel Contreras DO Work Phone: [facility] Cardiovascular Thoracic Surgery - [place] Comment on above: Mediastinal mass (Pr imary Dx); Weight loss, non-intentional Start: 01-06-2025 End: 01-06-2025 ambulatory [facility] [place] Start: 01-03-2025 ambulatory Michelet David Facility: [facility] Start: 12-30-[address] Domenico Wen DO -Ultrasound [facility] Work Phone: Start: 12-30-2024 End: 12-30-2024 ambulatory Domenico Wen Facility:[facility] Start: 12-27-2024 End: 12-27-[address] Michelet Hernandez DO Work Phone: -Laboratory Start: 12-27-2024 End: 12-27-[address] Domenico Wen DO -Laboratory Work Phone: Start: 12-27-2024 End: 12-27-[address] Domenico Wen DO -[facility] Work Phone: Start: 12-27-2024 End: 12-27-[address] Michelet Hernandez DO Work Phone: -[facility] Start: 12-27-2024 End: 12-27-2024 ambulatory Michelet David Facility:[facility] Start: 12-21-2024 End: 12-21-[address] MICHELET HERNANDEZ DO Facility:[facility] Start: 12-21-2024 End: 12-21-[address] MICHELET HERNANDEZ DO [facility] Start: 12-04-2024 ambulatory Michelet David Facility: [facility] Start: 12-02-2024 End: 12-02-[address] Michelet Hernandez DO Work Phone: -Laboratory [facility] Start: 12-02-2024 End: 12-02-[address] Michelet Hernandez DO -Laboratory [facility] Start: 12-02-2024 End: 12-02-2024 ambulatory Michelet David Facility:[facility] Start: 07-23-2024 End: 07-23-2024 Emergency department patient visit DR MARK GORE MD [facility] Start: 06-05-2024 End: 06-05-2024 ambulatory Michelet David Facility:[facility] Procedures Date Procedure Procedure Detail Performing Clinician Start: 12-30-2024 Gram stain microscopy D lucero Hernandez DO Work Phone: Start: 12-30-2024 Microbial culture, body fluid Dr. Michelet Hernandez DO Work Phone: Start: 12-30-2024 Blood count leukocyt e wbc automated Dr. Michelet Hernandez DO Work Phone: Start: 12-30-[address] Michelet Hernandez DO Work Phone: Start: 12-30-2024 Polymorphonuclear le ukocyte count Dr. Michelet Hernandez DO Work Phone: Start: 12-30-2024 Ultrasonic guidance for thoracentesis Dr. Michelet Hernandez DO Work Phone: Start: 12-02-2024 Urnls dip stick/tabl et reagent [...] of Treatment Date Care Activity Detail Author Start: 01-31-2025 Influenza vaccination Influenza Vaccine (#1) [facility] Start: 12-30-2024 Anaerobic microbial culture Anaerobic Culture [facility] Start: 12-30-2024 Microbial culture, body fluid [facility] Start: 12-30-2024 Microscopic observation [Identifier] in Body fluid by Cyto stain [facility] Start: 12-30-2024 Patient discharge [facility] Start: 12-30-2024 Vital signs measurements [facility] Start: 06-02-2024 Medicare Advantage Annual Wellness Visit Medicare Advantage Annual Wellness Visit [facility] Start: 02-01-2024 COVID-19 Vaccine ( season) COVID-19 Vaccine ( season) [facility] Start: 08-15-2018 RSV Immunization for Adults (1 - 1-dose 75+ series) RSV Immunization for Adults (1 - 1-dose 75+ series) [facility] Start: 06-07-2010 Pneumococcal Vaccine: 50+ Years (2 of 2 - PCV) Pneumococcal Vaccine: 50+ Years (2 of 2 - PCV) [facility] Start: 06-08-2009 DTaP/Tdap/Td Vaccines (1 - Tdap) DTaP/Tdap/Td Vaccines (1 - Tdap) [facility] Start: 08-15-1993 Zoster Vaccines (1 of 2) Zoster Vaccines (1 of 2) [facility] [place] [facility] Start: 1957 Depression Screening Depression Screening [facility] Start: 1945 Lipid panel Lipid Panel [facility] Cell count and Differential panel - Body fluid [facility] Cytology report of B sariah fluid Cyto stain [facility] INR in Blood by Coagulation assay [facility] Lactate dehydrogenas e [Enzymatic activity/volume] in Body fluid by Pyruvate to lactate reaction [facility] Lactate dehydrogenas e measurement [facility] Microbial culture, b sariah fluid [facility] Microscopic observat ion [Identifier] in Body fluid by Cyto stain [facility] Partial thromboplast in time, activated [facility] Patient Education RAD RN Thoracentesis Dc [facility] Work Phone: Platelets [#/volume] in Blood [facility] Protein [Mass/volume ] in Body fluid [facility] Protein [Mass/volume ] in Serum or Plasma [facility] Prothrombin time [facility] Ultrasonic guidance for thoracentesis [facility] Payers Date Payer Category Payer Private Health Insurance [id number] 2024 Self-pay 2023 Medicare HMO [employer] MED[employer] ember [id number] 2012 Private Health Insurance [id number] 1945 Unknown [id number] 1945 Unknown [id number]. 627 Unknown [id number]. 462 Unknown [id number]. 462 Unknown [id number]. 462 Unknown [id number]. 462 Unknown [id number] 2.16.840.1.849312.3.579.2. 462 Unknown [id number] 2.16.840.1.207774.3.579.2. 462 Unknown [id number]. 462 Social History Date Type Detail Facility Tobacco smoking status [facility] Start: 1945 Sex Assigned At Male [facility] Start: 07-23-2024 End: 12-27-2024 Sex Male (finding) [facility] Tobacco smoking stat us NHIS Unknown if ever smoked [facility] Work Phone: Start: 12-27-2024 End: 01-06-2025 Tobacco smoking status NHIS Never smoked tobacco (finding) [facility] Start: 01-06-2025 Gender Identity Identifies as male gender (finding) [facility] Start: 01-06-2025 Tobacco use and exposure Smokeless tobacco non-user [facility] Start: 01-06-2025 Alcoholic beverage intake Lifetime non-drinker (finding) [facility] Start: 01-06-2025 History of Social function [facility] Start: 1945 Sex assigned at Not on file S [facility] Functional Status Date Assessment Result Facility 07-23-2024 Functional Status Independent [facility] 07-23-2024 Functional Status Independent [facility] Mental Status Date Assessment Result Facility 12-30-2024 Cognitive function Level Of Cons ciousness Awake;Alert;Appropriate;Follow s Commands [facility] Work Phone: 07-23-2024 Mental Status Orientation Oriented x 4 [facility] 07-23-2024 Mental Status [facility] Clinical Notes 07-23-2024 to 01-06-2025 Denzel Contreras, DO - 01/06/2025 11:15 AM EDT Note Date & Type Note Facility 01-06-2025 History of Presen t illness Narrative Formatting of this note is different fro m the original. Images from the original note were not included. [facility] CARDIOVASCULAR & THORACIC SURGERY [address] [place] [address] Dept: [phone] Dept Loc: [phone] Visit type: New Reason for Visit: Mediastinal mass Assessment: 1. Mediastinal mass 2. Weight loss, non-intentional Recommendations: The next step in this process is surgical biopsy of the mass. I suspect he may have lymphoma. I have offered a thoracoscopic approach. This will allow for biopsy, drainage of pleural effusion with sampling, and pleural exploration to see if there are any other signs of tumor. This was explained to him in detail. Risks have been outlined. He is willing to proceed. History of Present Illness Juju Caceres is a 79 y.o. male referred by Dr. Wen for mediastinal mass. Per note, pt had CT chest completed at [facility] on 12/21/24 which demonstrated a large mass in the prevascular mediastinal space with encroachment on the pulmonary arteries and an associated moderate pleural effusion. Pt was sent for thoracentesis on 12/30/24 with 1160 mL removed. Cytology showed lymphocytosis with atypical features suspicious for a lymphoproliferative disorder. Pt is here now for an evaluation. He states that he has lost about 12 pounds in the last 3 months and he is weaker than he used to be. He now uses a can to help with walking. He denies any night sweats but does not sleep as well as he would like. He has never had any medical problems and takes no medications. Past Medical History Past Medical History: Diagnosis Date Macular degeneration Past Surgical History Surgical History[1] Family History Family History[2] Social History Marital status: Work history: Retired Social History[3] Allergies No Known Allergies Medications No current outpatient medications on file. Review of Systems Review of Systems Constitutional: Positive for fatigue and unexpected weight change (weight loss). Neurological: Positive for weakness. All other systems reviewed and are negative. Physical Exam Vitals: BP (!) 158/87 (BP Location: Left arm, Patient Position: Sitting, BP Cuff Size: Large adult) Pulse 91 Ht 5' 6 (1.676 m) Wt 153 lb (69.4 kg) BMI 24.69 kg/m Constitutional: General: Not in acute distress. Appearance: Normal appearance. Not toxic-appearing. Ear, nose, mouth: Bilateral external ear and nose normal. Nose: Nose normal. Mouth: Appearance normal, no bleeding, moist mucus membranes Eyes: General: No scleral icterus. No discharge from bilateral eyes Extraocular Movements: Extraocular movements intact. Pupils equal and reactive bilaterally Cardiovascular: Heart: Regular rhythm. Normal heart sounds. Vascular: No carotid bruit. Edema: no edema in bilateral lower extremities Pulmonary: Effort: Pulmonary effort is normal. No respiratory distress. Breath sounds: Normal breath sounds. No wheezing. Chest wall: No tenderness. Abdominal: Appearance: Not distended Palpations: There is no abdominal tenderness, no guarding. Musculoskeletal: Bilateral upper and lower extremities: Normal range of motion, no deformity Head: Normocephalic and atraumatic. Neck: Normal range of motion and neck supple. No muscular tenderness. Lymphadenopathy: Cervical: No cervical adenopathy. Skin: General: Skin is warm and dry. Coloration: Skin is not jaundiced. Neurological: General: No focal deficit present. Cranial Nerves: No obvious cranial nerve deficit. Psychiatric: Mood and Affect: Mood normal. Thought Content: Thought content normal. Patient has good judgement and insight Mental Status: Alert and oriented to place, person, and time. Labs No results found for: WBC, HGB, PLT, NA, K, CREATININE Imaging Left Thoracentesis 12/30/24 Cytology 12/30/24 CT Chest 12/21/24 Patient Care Team: PCP: Michelet Hernandez MD Pulmonology: DO Lucero Golden DO FACS Cardiothoracic Surgery [1] History reviewed. No pertinent surgical history. [2] Family History Problem Relation Name Age of Onset Throat cancer Brother [3] Social History Tobacco Use Smoking status: Never Smokeless tobacco: Never Substance Use Topics Alcohol use: Never Drug use: Never documented in this encounter [facility] 12-27-2024 Evaluation note Diagnosis Onset Date Resolution Lung mass acute December 27 10:33am Pleural effusion acute November 10:33am [facility] Work Phone: 1(334) 801-428902-21-2025 Hospital Discharge instructions Patient Education 07/23/2024 10:50:48 Syncope, Vasovagal Fainting: Vagal Reaction Fainting (syncope) is a temporary loss of consciousness that is associated with a loss of postural tone. It s also called passing out. It occurs when blood flow to the brain is less than normal. Yourhealthcare provider believes that your fainting was because of a vagal reaction. This condition is not a sign of serious disease. A vagal reaction is a response in your body that causes your pulse to slow down or the blood vessels to expand. This causes your blood pressure to fall. And this sends less blood to your brain if youare standing or sitting. That results in dizziness, [...] very rapidly, very slowly, or irregularly (palpitations) 3043-2687 [employer]. [address] [place] [address]. All rights reserved. This information is not intended as a substitute for professional medical care. Always follow yourhealthcare professional's instructions. Follow Up Care 07/23/2024 08:02:49 With:MICHELET HERNANDEZ DO Address: [facility] [place] [address]- When:2-4 days [facility] 02-21-2025 Note Discharge Instructions Thank you for allowing [facility] to assist you with your healthcare needs. The following is importantdischarge information regarding your hospital visit. Diagnosis from Today's Visit Vasovagal syncope What to Do Next Instructions from Your Care Team No qualifying data available. Post Acute Orders No qualifying data available. You Need to Schedule the Following Appointments Follow Up with MICHELET HERNANDEZ DO When:Within 2-4 days Where:[facility] [place] [address]- Allergies No Known Medication Allergies Medications Please ask your primary doctor or pharmacist before taking any other medication not listed, including over the counter drugs, herbal medications, vitamins and or supplements as they may interact withyour home medications. Please take this list to [...] to the brain is less than normal. Yourhealthcare provider believes that your fainting was because of a vagal reaction. This condition is not a sign of serious disease. A vagal reaction is a response in your body that causes your pulse to slow down or the blood vessels to expand. This causes your blood pressure to fall. And this sends less blood to your brain if youare standing or sitting. That results in dizziness, [...] very rapidly, very slowly, or irregularly (palpitations) 4460-6107 [employer]. [address] [place] [address]. All rights reserved. This information is not intended as a substitute for professional medical care. Always follow yourhealthcare professional's instructions. Additional Information VACCINATE! IT SAVES LIVES! Members of the community who have not yet received the COVID-19 vaccine and would like to receive it can visit one of [facility] vaccine clinics. There are many vaccine clinic locations within the [facility]. For locations and available times, please visit [email or web address]/. It is important to note that some COVID mobile vaccine clinics are held outdoors and may be canceled in rainy or stormy conditions. To learn more about pediatric vaccinations (ages 5-11), we invite you to visit the [facility] webpage. https://www.[facility].org/pages/1810-Vpxax-Xuplqfosfnb-Wemkjtykrp-Bigaq-Rdh stions.htmlTo learn more about the COVID-19 vaccine, we invite you to visit the CDC website for a list of frequently asked questions. https://www.cdc.gov/coronavirus/2019-ncov/vaccines/faq.html [email or web address] Patient Portal Access Instructions: Stay connected with your healthcare team and access your personal medical information anytime with the [facility] Patient Portal. If you would like a full copy of your medical records please contact the [facility] Medical Records Department Friday through Friday between 8a.m. and 4:30p.m. Please follow the directions below to access the portal: 1.Access the email account you provided upon registration to the [facility].2.Look for an invitation email from [facility].3.Open the email and access the invitation link: Accept Invitation to [facility]4.Fill in the required jensen to create your account. Sign into [email or web address] with your username and password that you [...] you will allow to register on the [facility] Patient Portal for access to your information. You can also access the [facility] Patient Portal on the [employer] gerber. Simply click on Health Records under [employer] and then click on the [employer] logo. HOW TO SAFELY DISPOSE OF PRESCRIPTION MEDICATIONS Please use one of the following methods to safely dispose of your unused medications. 1.Use a drug disposal kit: the drug disposal pouch allows you to safely discard your old and unuseddrugs. Ask your nurse to give you one when you are discharged.2.Visit a local take-back location: Many local pharmacies and police departments have programs that collect old and unwanted prescriptiondrugs. Call your local pharmacy or go to http://bit.[employer]/5P4Vs0m to find one close to you.3.Make use of household items: Use cat litter or old coffee grounds to dispose medications if other options arenot available. Mix your drugs with these household products, seal them in an airtight container andthrow it into the garbage. Call [facility]: [phone] to be sure your drugs can be [...] drowsiness, such as benzodiazepines, also known as benzos,including diazepam and alprazolam, muscle relaxants or sleep aids. Never sell or share prescriptionopioids. This is illegal. Store opioids in a secure place and out of reach of others (including children, family, friends and visitors). The last page(s) of this document has been signed and retained as a CHART COPY Signatures Patient Education Materials Syncope, Vasovagal Medication Leaflets My discharge plan and instructions have been reviewed and explained to me and IISABEL JERALD Runderstand my current condition and have read and understand these discharge instructions. I have received a written copy of the plan/instructions. If I have questions, I am aware that I should contact my doctor. 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/Extraction Operator Signature: Date/Time: Relationship to Patient: Witness Name/Signature: Date/Time: [facility]02-21-2025 Note* Exam Date Time Procedure Performing Provider Status 07/23/24 9:[address] Head or Brain w/o Contrast Julieta LOZA MD; Auth (Verified) [id number] ORIGINAL EXAMINATION: CT OF THE HEAD WITHOUT [...] 07/23/2024 9:25:53 AM Ordering Provider: MARK GORE [facility]02-21-2025 Note* Exam Date Time Procedure Performing Provider Status 07/23/24 8:49 AM EKG [ED AOH] - CV MD BAO, MARK MCGOVERN; Auth (Verified) ECG Final Report Sinus rhythm Atrial premature complex Baseline wander in lead(s) V3 Electronic Signature: MD BAO, MARK MCGOVERN 07/23/2024 10:59:11 [facility] No data available for this section [facility] Evaluation noteNo assessment information available [facility] Work Phone: Evaluation note* Diagnosis Onset Date Resolution Status Admit Date Lung mass acute December 27 10:33am Pleural effusion acute November 10:33am [facility] Work Phone: Evaluation note* Diagnosis Mediastinal mass- Primary Swelling, mass, or lump in chest Weight loss, non-intentional Loss of weight documented in this encounter [facility] Discharge instructions No data available for this section [facility] Discharge instructionsAmbulatory Orders* Cardiovascular/Thoracic Surgery Location: None Selected [facility] Work Phone: Progress note No data available for this section [facility] Reason for referral (narrative)No reason for referral information availableWSelect [facility] Work Phone: Summary Purpose Family History No Family History Records Found Advance Directives No Advanced Directives Records FoundNo Advanced Directives Records FoundNo Advanced Directives Records Found Chief Complaint and Reason for Visit Chief Complaint Admit Date New Lung Mass December 27, 2024 10:3 3am pleural effusion December 30, 2024 7:56 am Reason for Visit Admit Date Lung mass December 27, 2024 10:3 3am Pleural effusion December 27, 2024 10:3 3am Chief Complaint Admit Date New Lung Mass December 27, 2024 10:3 3am Additional Source [...] 27, 2024 End: December 27, 2024 Dr. Domenico Wen , Attending Provider Active S tart: December 27, 2024 End: December 27, 2024 Team Status: Active Member Role/Relationship Status Dates Dr. Michelet Hernandez DO Primary Care Provider Active Start: December 27, 2024 Dr. Domenico Wen DO Attending Provider Active S tart: December 27, 2024 Dr. Domenico Wen , Referring Provider Active S tart: December 27, 2024 Team Status: Active Member Role/Relationship Status Dates Dr. Michelet Hernandez DO Primary Care Provider Active Team Status: Inactive Member Role/Relationship Status Dates Dr. Michelet Hernandez DO Primary Care Provider Active Start: December 27, 2024 End: December 27, 2024 Dr. Domenico Wen , Attending Provider Active S tart: December 27, 2024 End: December 27, 2024 Dr. Domenico Wen DO Referring Provider Active S tart: December 27, 2024 End: December 27, 2024 Team Status: Active Member Role/Relationship Status Dates Dr. Michelet Hernandez DO Primary Care Provider Active Start: December 30, 2024 Dr. Domenico Wen , Attending Provider Active S tart: December 30, 2024 Dr. 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 Relationship Specialty Start Date End Date DavidMichelet cooper Elena [address] [place] [id number] PCP - General Family Medicine 12/28/24 Goals (unrecognized section and content) Goals may be documented in a n alternate section (unrecognized sect ion and content) No Status Records FoundNo Status Records FoundNo Status Records Found INFORMATION SOURCE (unrecogn ized section and content) DATE CREATED AUTHOR 12/24/2024 [facility] DATE CREATED AUTHOR AUTHOR'S ORGANIZ ATION 01/08/2025 [facility] DATE CREATED AUTHOR AUTHOR'S ORGANIZ ATION 01/09/2025 [facility] Reason for Visit (unrecogniz ed section and content) Reason Comments New Patient Specialty Diagnoses / Procedures Referred By Contact Referred To Contact Cardiothoracic Surgery Diagnoses Other nonspecific abnormal finding of lung field Procedures LA OFFICE/OUTPATIENT NEW HIGH MDM 60 MINUTES Domenico Wen Andrés [address] [place] [address] Phone: tel:[phone] fax:[phone] [facility] Cardiovascular Thoracic Surgery - [facility] [address] [place] [address] Phone: tel: fax: Referral ID Status Reason Start Date Expiration Date Visits Re quested Visits Authorized [id number] Closed 12/28/2024 12/28/2025 1 1 FOR RECORDS PERTAINING TO PATIENTS WHO ARE [...] BE BASED ON THE PRIMARY CLINICAL RECORDS. [facility] [employer] [facility]. provides no warranty or guarantee of the accuracy or completeness of information in this document.
--- NOTE | 2025-01-18 07:11 | US_ITS ---
PROCEDURE: KIDNEY AND BLADDER 01/18/2025 REASON FOR EXAM: ACUTE KIDNEY INJURY TECHNIQUE: KIDNEY AND BLADDER COMPARISON: None FINDINGS: Kidneys: Right kidney is 11.1 x 5.3 x 6.0 cm, while the left is 12.0 x 4.5 x 6.2 cm. [place]: Mild hydronephrosis on the right. The left is normal. Cysts or Masses: None Bladder: Urinary bladder is normal. Prevoid bladder volume 312 cc. Postvoid bladder volume 0 cc. Bilateral ureteral jets are seen. US/Kidney and Bladder IMPRESSION: Mild dilation of the renal collecting system on the right. Reading Location: [id number]
[2025-01-18] MEDS: 0.9% Normal Saline (1000mL) 1,000 ML 1000 ML IV ×2 (07:27→09:08)
[2025-01-18 08:06] LABS: Troponin T High Sens 2 HR 33 ng/L (<=22)
--- NOTE | 2025-01-18 11:34 | PCM.CONS.R ---
Assessment & Plan Assessment/Plan (1) Acute kidney injury: (2) Hypercalcemia: (3) Recurrent left pleural effusion: PLAN: Plan This is an 79-year-old male with no significant past medical history presenting to the emergency room with complaints of tightness of chest when trying to lay flat. Workup in the emergency room patient found to have serum creatinine 3.72, potassium 4.0, bicarb 21, calcium 13.6. Nephrology consulted in view of elevated creatinine. Baseline serum creatinine is unknown however patient did have lab work on December 02, 2024 creatinine 1.60, potassium and bicarb were normal and calcium was 10.7. Before that lab work in 2018 showed normal creatinine and calcium. Renal ultrasound showed mild right hydronephrosis. Patient is to undergo noncontrast CT of abdomen and pelvis. Patient has been started on IV fluids and will receive a dose of Zometa for his hypercalcemia. Stop vitamin D. Will order kappa lambda light chains, PTH, vitamin D 1, 25 hydroxy and vitamin D 25-hydroxy. 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 At this time there is no acute indication for renal placement therapy, volume status appears near euvolemic but patient does have room for IV fluids. Potassium and bicarb normal. Few weeks ago patient did undergo thoracentesis and fluid for cytology resulted in lymphocytosis with atypical features suspicious for lymphoproliferative disorder. Further workup is underway. Nephrology plan was discussed with patient and his , questions were answered. Further orders forthcoming as hospitalization evolves, thank you for allowing us to participate in the care of Mr. Hall. Assessment and plan reviewed Dr. Gutierrez HPI Consult Data Date of Consult: 01/18/25 HPI Narrative HPI Narrative: JUJU HALL, is a 79 M with no significant past medical history who presented to the emergency room this morning with complaints of feeling tightness in chest when trying to lay flat. Workup in the emergency room included lab work: White count normal, serum creatinine 3.72, potassium 4.0, bicarb 21, calcium 13.6, troponin 31. Chest x-ray moderate left pleural effusion. Renal ultrasound right kidney 11.1 cm, left kidney 12 cm, mild hydronephrosis on the right, left is normal. Nephrology consulted in view of elevated creatinine. Patient was seen and evaluated this morning in the emergency room. Patient reports he has not been seen by nephrology. Patient reports some months ago he noted unintentional weight loss therefore followed up with PCP however before then he had not been having routine PCP appointments. Patient does not take any prescribed medications. Patient states he takes eye vitamin daily and vitamin D 5000 units daily. Patient states he had been having generalized pain and took Aleve last week but does not take this routinely or daily. Does not take Tylenol. Patient does state he noticed his skin to be itchy and noted decrease in taste. Patient states he has had about a 20 pound unintentional weight loss. No vomiting, no nausea, does not take Tums or calcium. Patient denies any hematuria, dysuria, nocturia, urgency or hesitancy. [facility] Medical History (Updated 01/18/25 @ 11:40 by Lamar Yen NP-C) Pleural effusion Lung mass Macular degeneration Home Medications ?Medication ?Instructions ?Recorded ?Last Taken ?Type NK 01/18/25 Unknown History Allergy/AdvReac Type Severity Reaction Status Date / Time No Known Allergies Allergy Verified 01/18/25 05:18 Family History (Updated 12/27/24 @ 10:43 by Mirna Griffiths LPN) Brother Cancer throat Surgical History (Updated 01/18/25 @ 06:[address] 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 On room air Abdomen soft, nontender, nondistended No edema Lab / Micro Data 01/18/25 05:30 01/18/25 05:30 Labs: Laboratory Results - last 24 hr 01/18/25 05:30: WBC 8.0, RBC 3.50 L, Hgb 10.2 L, Hct 30.8 L, MCV 88.0, MCH 29.1, MCHC 33.1, RDW Std Deviation 42.5, RDW Coeff of Martha 13.2, Plt Count 380, MPV 10.2, Immature Gran % (Auto) 0.200, Neut % (Auto) 70.8 H, Lymph % (Auto) 11.1 L, [place] % (Auto) 12.3 H, Eos % (Auto) 4.7, Baso % (Auto) 0.9, Absolute Neuts (auto) 5.7, Absolute Lymphs (auto) 0.89, Nucleated RBC % 0, Sodium 139, Potassium 4.0, Chloride 101, Carbon Dioxide 21.7, Anion Gap 15, BUN 51 H, Creatinine 3.72 H, Estim Creat Clear Calc 14.05 L, Est GFR (MDRD) Non-Af 16 L, BUN/Creatinine Ratio 13.6, Glucose 98, Calcium 13.6 H*, Troponin T High Sens 31 H 01/18/25 07:26: Troponin T Hi Sens 2 Hr 33 H Imaging Radiology Impression Chest X-Ray 01/18/25 06:20 IMPRESSION: There is a moderate size left pleural effusion. Reading Location: [facility] Renal Ultrasound 01/18/25 07:11 IMPRESSION: Mild dilation of the renal collecting system on the right. Reading Location: [id number]
[2025-01-18] MEDS: 0.9% Normal Saline (1000mL) 1,000 ML 125 ML IV ×2 (12:35→21:27)
[2025-01-18 13:23] LABS: Vitamin D,25 Hydroxy 81.7 ng/mL (30-100)
--- NOTE | 2025-01-18 13:30 | CT_ITS ---
PROCEDURE: ABDOMEN/PELVIS WITHOUT CONT 01/18/2025 REASON FOR EXAM: HYDRONEPHROSIS, POSSIBLE LYMPHOMA TECHNIQUE: ABDOMEN/PELVIS WITHOUT CONT Noncontrast technique limits evaluation of the abdominal and pelvic viscera. Coronal and Sagittal reconstruction series were provided. One or more dose reduction techniques were used (e.g., Automated exposure control, adjustment of the mA and/or kV according to patient size, use of iterative reconstruction technique). RADIATION DOSE SUMMARY: CTDlvol: 9.39 mGy DLP: 453.37 mGycm COMPARISON: Prior sonogram of the kidneys done earlier in the day. FINDINGS: Lung bases: Moderate left pleural effusion with left basilar atelectasis. Nodular thickening along the medial aspect of the left pleural space as well as pericardial thickening. Metastatic deposit should be ruled out. Liver: Normal size. No obvious mass. Gallbladder: Unremarkable Spleen: Mild splenomegaly. Pancreas: Normal size. No surrounding inflammation. Adrenals: Unremarkable Kidneys: Mild degree of right hydronephrosis and right hydroureter. No evidence of ureteral calculus. Nonspecific mild bilateral perinephric stranding. Bladder: Unremarkable Mildly enlarged prostate with central calcification. Bowel: Colonic diverticulosis without diverticulitis. Appendix: Unremarkable Lymph nodes: No suspicious lymph node enlargement. Vasculature: Mild diffuse atherosclerotic calcifications are noted. Peritoneum / Retroperitoneum: Findings suggestive of a 2 point 4 cm by 3 cm irregular soft tissue mass in the right hemipelvis as seen on axial image number 86. Bones: Degenerative changes of the spine. Straightening of the normal lumbar lordosis. CT/Abdomen/Pelvis without Cont IMPRESSION: Moderate-sized left pleural effusion with left basilar compressive atelectasis. Nodular thickening along the medial aspect of the left pleural with the thicken ing of the pericardium. Metastatic deposit should be ruled out. Mild degree of right hydronephrosis and right hydroureter. No obstructive calc ulus is seen at this time. Questionable 3 cm x 2.4 cm irregular mass in the right hemipelvis as described. Reading Location: [id number]
[2025-01-18] MEDS: Zoledronic Acid 4 MG in 0.9% Normal Saline (100mL Bag) 100 ML 200 MG IV (14:11)
[2025-01-18 16:20] LABS: PTHIN 32 pg/mL (11-61)
--- NOTE | 2025-01-18 18:59 | PCM.HP.STD ---
HPI - General General Date of Admission: 01/18/25 Date of Service: 01/18/25 Chief Complaint: Shortness of breath left-sided chest pain HPI Narrative JUJU HALL, is a 79 M who presents to the emergency room at [facility] with complaints of shortness of breath and left-sided chest pain particularly when he takes a deep breath. Patient states that the shortness of breath is worse when he is lying down. Patient was found to have a left pleural effusion and a lung mass and underwent a thoracentesis on 12/30/2024. He is already seen pulmonary medicine here (Dr. Wen) and Dr. Wen referred him to a chest surgeon at [facility] for a pleural biopsy. I contacted pathology here and the pleural fluid was sent for an additional analysis by [facility] and they read out T-cell predominant lymphocytosis on the thoracentesis fluid obtained on 12/30/2024, T-cell receptor gene rearrangement analysis is in progress to assess for clonality and it will be reported as an addendum. Workup in the emergency room included a chest x-ray which showed a moderate left pleural effusion, labs were obtained and they were abnormal for a BUN of 51, creatinine of 3.72, and a calcium of 13.6. Patient's initial troponin was 31, 2-hour troponin was 33. Patient's hemoglobin was 10.2. Patient underwent a renal ultrasound which showed a mild right hydronephrosis. Patient will be admitted to [place] [address] for acute kidney injury and hypercalcemia, he will be seen in consultation by nephrology, I had a brief conversation with nephrology and they advise giving the patient Zometa-pharmacy advised a 4 mg dose. IV fluids will be given and labs will be monitored. Patient will undergo a CT of the abdomen and pelvis while in the hospital. [facility] Medical History (Updated 01/18/25 @ 11:40 by GIRMA Adams) Pleural effusion Lung mass Macular degeneration Home Medications ?Medication ?Instructions ?Recorded ?Last Taken ?Type NK 01/18/25 Unknown History Allergy/AdvReac Type Severity Reaction Status Date / Time No Known Allergies Allergy Verified 01/18/25 05:18 Family History (Updated 12/27/24 @ 10:43 by Mirna Griffiths LPN) Brother Cancer throat Surgical History (Updated 01/18/25 @ 06:[address] 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 pets and animals: No history of recent travel: No Smoking Status: Never smoker alcohol intake: never substance use type: does not use caffeine: No what type of physical activity do you participate in: walking seatbelt use: always ROS Constitutional Constitutional: Reports fatigue; Denies anorexia, change in weight, chills, fever(s), night sweats or weakness Eyes Eyes: Denies blurry vision, change in vision, discharge from eye(s) or eye pain Cardiovascular Cardiovascular: Reports dyspnea on exertion; Denies chest pain, claudication, edema or palpitations Respiratory/Chest Respiratory/Chest: Reports dyspnea and shortness of breath with exertion; Denies cough, hemoptysis or shortness of breath at rest Gastrointestinal Gastrointestinal: Denies abdominal pain, constipation, diarrhea, hematemesis, hematochezia, melena, nausea or vomiting Genitourinary Genitourinary: Denies dysuria, hematuria, urinary frequency, urinary hesitancy, urinary incontinence or urinary urgency Musculoskeletal Musculoskeletal: Denies back pain, joint pain, joint stiffness, joint swelling, myalgias or neck pain Neurologic Neurologic: Denies abnormal gait, abnormal speech, dizziness, focal weakness, headache(s), loss of vision, numbness, other visual disturbances, paresthesias, syncope or tingling Psychiatric Psychiatric: Denies anxiety, cognitive impairment, depression, irritability, mood swings or suicidal ideation Endocrine Endocrinology: Denies change in body appearance, cold intolerance, excessive sweating, heat intolerance, polydipsia or polyuria Hematologic/Lymphatic Hematologic/Lymphatic: Denies none, anemia, easy bleeding, easy bruising or lymphadenopathy Allergic/Immunologic Allergic/Immunologic: Denies rhinitis, urticaria, eczemia or asthma Vital Signs Vital Signs Vital Signs: 01/18/25 05:17 01/18/25 05:17 01/18/25 06:17 Temperature 98.9 F Temperature Source Oral Pulse Rate 115 H 90 Respiratory Rate 18 14 Respiratory Effort Short of Breath Respiratory Depth Respiratory Pattern Tachypnea Blood Pressure 170/90 H 142/79 H Blood Pressure Mean 116 100 Blood Pressure Source Blood Pressure Position Blood Pressure Location Pulse Ox 96 98 Oxygen Delivery Method Room Air Room Air Room Air 01/18/25 07:00 01/18/25 07:12 01/18/25 08:26 Temperature 98 F Temperature Source Pulse Rate 85 89 92 Respiratory Rate 15 17 Respiratory Effort Respiratory Depth Respiratory Pattern Blood Pressure 142/77 H 161/71 H Blood Pressure Mean 98 101 Blood Pressure Source Blood Pressure Position Blood Pressure Location Pulse Ox 99 97 Oxygen Delivery Method 01/18/25 09:04 01/18/25 10:02 01/18/25 11:58 Temperature Temperature Source Pulse Rate 84 75 88 Respiratory Rate 31 H 18 16 Respiratory Effort Respiratory Depth Respiratory Pattern Blood Pressure 154/86 H Blood Pressure Mean 108 Blood Pressure Source Blood Pressure Position Blood Pressure Location Pulse Ox 96 100 98 Oxygen Delivery Method 01/18/25 12:07 01/18/25 12:30 01/18/25 16:32 Temperature 98 F Temperature Source Oral Pulse Rate 91 Respiratory Rate 20 H Respiratory Effort Normal Normal Respiratory Depth Normal Normal Respiratory Pattern Tachypnea Normal Blood Pressure 161/77 H Blood Pressure Mean 105 Blood Pressure Source Monitor Blood Pressure Position Semi-Fowlers Blood Pressure Location Right Arm Pulse Ox 99 99 Oxygen Delivery Method Room Air Room Air Room Air 01/18/25 16:33 Temperature 97.8 F Temperature Source Oral Pulse Rate 84 Respiratory Rate 18 Respiratory Effort Respiratory Depth Respiratory Pattern Blood Pressure 159/84 H Blood Pressure Mean 109 Blood Pressure Source Monitor Blood Pressure Position Semi-Fowlers Blood Pressure Location Left Arm Pulse Ox 99 Oxygen Delivery Method Room Air Weight Weight: 69.003 kg Body Mass Index (BMI) 24.5 Physical Exam Const alert, oriented x3, no apparent distress, average body habitus and healthy appearing General Appearance: cooperative, well kempt and well developed Orientation / Consciousness: awake, oriented to person, oriented to place and oriented to time HEENT normocephalic, head/scalp atraumatic, hearing grossly normal bilaterally and moist oral mucous membranes Eyes PERRL, EOMs intact bilaterally and conjunctivae normal Neck supple, no JVD, thyroid normal and no carotid bruits General: trachea midline Resp normal respiratory effort, no retractions and no use of accessory muscles Resp Narrative: Decreased breath sounds are noted over the left mid and lower lung field Auscultation: Negative for rales, rhonchi or wheezes Cardio regular rate, regular rhythm, S1 normal heart sound, S2 normal heart sound, no murmurs, no rub and no gallops GI normal to inspection, nondistended, normoactive bowel sounds, soft to palpation, non-tender and non-distended Extremity no clubbing, cyanosis or edema Skin no rashes or lesions noted General Skin Exam: no breakdown Neuro oriented x3, CN's II-XII intact bilaterally, moves all extremities, no focal motor deficits and no sensory deficits noted Sensorium / Orientation: awake and alert Speech: speech normal Psych affect normal Results Lab / Micro Data 01/18/25 05:30 01/18/25 05:30 Labs: Laboratory Results - last 24 hr 01/18/25 05:30: WBC 8.0, RBC 3.50 L, Hgb 10.2 L, Hct 30.8 L, MCV 88.0, MCH 29.1, MCHC 33.1, RDW Std Deviation 42.5, RDW Coeff of Martha 13.2, Plt Count 380, MPV 10.2, Immature Gran % (Auto) 0.200, Neut % (Auto) 70.8 H, Lymph % (Auto) 11.1 L, [place] % (Auto) 12.3 H, Eos % (Auto) 4.7, Baso % (Auto) 0.9, Absolute Neuts (auto) 5.7, Absolute Lymphs (auto) 0.89, Nucleated RBC % 0, Sodium 139, Potassium 4.0, Chloride 101, Carbon Dioxide 21.7, Anion Gap 15, BUN 51 H, Creatinine 3.72 H, Estim Creat Clear Calc 14.05 L, Est GFR (MDRD) Non-Af 16 L, BUN/Creatinine Ratio 13.6, Glucose 98, Calcium 13.6 H*, Troponin T High Sens 31 H 01/18/25 07:26: Troponin T Hi Sens 2 Hr 33 H 01/18/25 12:14: Vitamin D 25-Hydroxy 81.7, PTH Intact 32 Imaging Radiology Impression Chest X-Ray 01/18/25 06:20 IMPRESSION: There is a moderate size left pleural effusion. Reading Location: [facility] Renal Ultrasound 01/18/25 07:11 IMPRESSION: Mild dilation of the renal collecting system on the right. Reading Location: [id number] Abdomen/Pelvis CT 01/18/25 13:30 IMPRESSION: Moderate-sized left pleural effusion with left basilar compressive atelectasis. Nodular thickening along the medial aspect of the left pleural with the thickening of the pericardium. Metastatic deposit should be ruled out. Mild degree of right hydronephrosis and right hydroureter. No obstructive calculus is seen at this time. Questionable 3 cm x 2.4 cm irregular mass in the right hemipelvis as described. Reading Location: [id number] Assessment & Plan Assessment/Plan (1) Hypercalcemia: PLAN: Plan 1. Acute kidney injury-patient will be admitted to [place] [address] and receive IV fluids, labs will be monitored, patient will be seen by nephrology #2 hypercalcemia-patient will be given IV Zometa and calcium level will be rechecked tomorrow #3 left pleural effusion-patient appears to be oxygenating well on room air, it may be necessary to perform another thoracentesis before the patient is discharge due to the reaccumulation of fluid. 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 #5 mild anemia-etiology unclear, CBC will be monitored as necessary Total clinical time spent by myself addressing the patient's medical issues, reviewing all of his data, and collaborating with patient's care team: 75 minutes Charges/Coding Visit Charges Inpatient E&M: 47014 Init Hosp L3
[2025-01-18] MEDS: Heparin Injection (Vial) 5,000 UNIT/ML VIAL 5000 UNIT SC (21:27)
[2025-01-18 21:35] LABS: Mucous, Urine 0 SEEN /hpf (<or=2+); Red Blood Cells-Urine 0 SEEN /hpf (0-5); Squamous Epithelial Cells - UA 0 SEEN /hpf (0-5)
[2025-01-18 21:59] LABS: Color, Urine Straw (Yellow); Glucose, Dipstick Normal (Normal); Ketone-Dipstick Negative (Negative); Leukocyte Esterase-Dipstick Negative /ul (Negative); Nitrite-Dipstick Negative (Negative); Occult Blood-Urine 10 /ul (Negative); Protein-Dipstick 30 mg/dl (Negative); Specific Gravity, Urine 1.015 (1.002-1.030); Urine Bilirubin Dipstick Negative (Negative)
[2025-01-19 02:17] VITALS: BP 158/76; PULSE 99; RESP 16; TEMP 36.8; O2SAT 97
[2025-01-19] MEDS: 0.9% Normal Saline (1000mL) 1,000 ML 125 ML IV ×3 (05:19→21:26)
[2025-01-19 06:42] LABS: Hematocrit 25.6 % (40-54); Hemoglobin 8.3 g/dL (13.0-16.5); Immature Granulocytes Count 0.020 X10^3/uL (0.0-0.0); Mean Corp Hgb Conc 32.4 g/dL (32-36); Mean Corpuscular Volume 90.8 fL (80-94); Mean Platelet Vol. 10.2 fl (6.2-12.0); NRBC Flagged by Analyzer 0 % (0-5); POSITIVE DIFFERENTIAL YES; Platelet Count 313 K/mm3 (150-450); RBC Distribution Width CV 13.2 % (11.6-14.6); RBC Distribution Width SD 44.0 fl (35.1-43.9); Red Blood Count 2.82 M/mm3 (4.6-6.2); White Blood Count 6.0 K/mm3 (4.4-11.0)
[2025-01-19 07:09] LABS: Albumin, Serum 3.0 g/dL (3.4-4.8); Anion Gap 13 (5-15); BUN 50 mg/dL (4-19); BUN/Creat Ratio 14.2 RATIO (10-20); Calcium,Total 11.8 mg/dL (7.6-11.0); Carbon Dioxide 19.6 mmol/L (21.0-32.0); Chloride 108 mmol/L (98-108); Estimated Creatinine Clearance 14.89 ml/min (50-250); Glucose 80 mg/dL (70-99); Potassium 4.2 mmol/L (3.3-5.1)
[2025-01-19 08:08] VITALS: BP 141/66; PULSE 95; RESP 17; TEMP 36.8; O2SAT 94
[2025-01-19] MEDS: Heparin Injection (Vial) 5,000 UNIT/ML VIAL 5000 UNIT SC ×2 (09:21→21:25)
[2025-01-19] MEDS: Ensure Plus High Protein 120 ML LIQUID PO (11:35)
--- NOTE | 2025-01-19 14:24 | CHAPLAIN ---
Type of Pastoral Visit _x__ Initial Visit ___ Follow-up Visit ___ On-call Visit ___ General Patient Visit ___ Spiritual Assessment ___ Family Conference ___ Bereavement ___ Rapid Response ___ Code Blue ___ Other (describe below) Pastoral Care Referral From _x__ Patient ___ Family ___ Nurse ___ Physician ___ Contract Attorney ___ [employer] ___ Other (describe below) Sacrament/Intervention _x__ Active listening ___ Anointing ___ Christianity ___ Bereavement ___ Communion _x__ Rosemarie exploration ___ _x__ Life review _x__ Prayer ___ Reconciliation ___ Sacrament of Sick _x__ Supportive presence ___ Wedding ___ Other (describe below) Pastoral Comments patient gives some life review and explains the current findings of his health need although there is not yet complete understanding; as patient talks there are several pieces of information that 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
[2025-01-19 14:29] VITALS: BP 148/73; PULSE 97; RESP 18; TEMP 36.6; O2SAT 97
--- NOTE | 2025-01-19 14:48 | CASEMGMT ---
Dx:KO, hypercalcemia LACE:2 6-Clicks:20 Medical record reviewed and patient evaluated for identification of discharge planning needs. Based on this review, at this time criteria are not present to indicate a need for discharge planning. Will remain available to assist with discharge planning needs as identified or requested. Pt is on RA.
--- NOTE | 2025-01-19 18:01 | PN.HOSP_ITS ---
Reason for Visit Chief Complaint: Shortness of breath left-sided chest pain Subjective Subjective Patient was seen and examined today, his hemoglobin dropped to 8.3 this morning, creatinine was slightly improved at 3.51 and BUN was 50. Patient's calcium level was 11.8, he remains on IV fluids. CT of the abdomen and pelvis question a right pelvic mass, this could be impeding the patient's ureter on that side. Currently there is not urology coverage here, I do not think this is impacting his rising creatinine. I discussed this with nephrology Objective Data Objective Data Vital Signs: Vital Signs Temp Pulse Resp BP Pulse Ox O2 Del Method 97.9 F 97 18 148/73 H 97 Room Air 01/19/25 14:29 01/19/25 14:29 01/19/25 14:29 01/19/25 14:29 01/19/25 14:29 01/19/25 14:29 Oxygen Delivery Method Room Air Weight: 69.003 kg Body Mass Index (BMI) 24.5 Intake & Output: Intake and Output for Last 24 Hours 01/17/25 01/18/25 01/19/25 23:59 23:59 23:59 Intake Total 3561.25 / 3561.25 2483.33 / 2483.33 Output Total 300 / 300 Balance 3261.25 / 3261.25 2483.33 / 2483.33 Lab / Micro Data 01/19/25 05:45 01/19/25 05:45 Labs: Laboratory Results - last 24 hr 01/18/25 19:45: Urine Color Straw, Urine Clarity Sl. Cloudy, Urine pH 6.5, Ur Specific [place] 1.015, Urine Protein 30 H, Urine Glucose (UA) Normal, Urine Ketones Negative, Urine Occult Blood 10 H, Urine Nitrite Negative, Urine Bilirubin Negative, Urine Urobilinogen Normal, Ur Leukocyte Esterase Negative, Urine RBC 0 SEEN, Urine WBC 0-5 SEEN, Ur Squamous Epith Cells 0 SEEN, Urine Bacteria 0 SEEN, Urine Mucus 0 SEEN 01/19/25 05:45: WBC 6.0, RBC 2.82 L, Hgb 8.3 L, Hct 25.6 L, MCV 90.8, MCH 29.4, MCHC 32.4, RDW Std Deviation 44.0 H, RDW Coeff of Martha 13.2, Plt Count 313, MPV 10.2, Immature Gran % (Auto) 0.300, Neut % (Auto) 77.5 H, Lymph % (Auto) 6.6 L, [place] % (Auto) 10.8 H, Eos % (Auto) 4.3, Baso % (Auto) 0.5, Absolute Neuts (auto) 4.7, Absolute Lymphs (auto) 0.40 L, Nucleated RBC % 0, Sodium 141, Potassium 4.2, Chloride 108, Carbon Dioxide 19.6 L, Anion Gap 13, BUN 50 H, Creatinine 3.51 H, Estim Creat Clear Calc 14.89 L, Est GFR (MDRD) Non-Af 17 L, BUN/Creatinine Ratio 14.2, Glucose 80, Calcium 11.8 H, Albumin 3.0 L Physical Exam Narrative alert, oriented x3, no apparent distress, average body habitus and healthy appearing General Appearance: cooperative, well kempt and well developed Orientation / Consciousness: awake, oriented to person, oriented to place and oriented to time HEENT normocephalic, head/scalp atraumatic, hearing grossly normal bilaterally and moist oral mucous membranes Eyes PERRL, EOMs intact bilaterally and conjunctivae normal Neck supple, no JVD, thyroid normal and no carotid bruits General: trachea midline Resp normal respiratory effort, no retractions and no use of accessory muscles Resp Narrative: Decreased breath sounds are noted over the left mid and lower lung field Auscultation: Negative for rales, rhonchi or wheezes Cardio regular rate, regular rhythm, S1 normal heart sound, S2 normal heart sound, no murmurs, no rub and no gallops GI normal to inspection, nondistended, normoactive bowel sounds, soft to palpation, non-tender and non-distended Extremity no clubbing, cyanosis or edema Skin no rashes or lesions noted General Skin Exam: no breakdown Neuro oriented x3, CN's II-XII intact bilaterally, moves all extremities, no focal motor deficits and no sensory deficits noted Sensorium / Orientation: awake and alert Speech: speech normal Psych affect normal Assessment & Plan Assessment/Plan (1) Hypercalcemia: PLAN: Plan 1. Acute kidney injury-patient remains on IV fluid administration at this time, BMP will be repeated tomorrow #2 hypercalcemia possibly secondary to neoplasm-patient was given IV Zometa and calcium level will be rechecked tomorrow #3 left pleural effusion-patient appears to be oxygenating well on room air, it may be necessary to perform another thoracentesis before the patient is discharge due to the reaccumulation of fluid. 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 #5 mild anemia-etiology unclear, CBC will be monitored Total clinical time spent by myself addressing the patient's medical issues, reviewing all of his data, and collaborating with patient's care team: 35 minutes Charges/Coding Visit Charges Inpatient E&M: 19415 Subs Hosp L2
--- NOTE | 2025-01-19 18:42 | PCM.PN.REN ---
Subjective Subjective no new complaints Objective Data Objective Data Vital Signs: Vital Signs Temp Pulse Resp BP Pulse Ox O2 Del Method 97.9 F 97 18 148/73 H 97 Room Air 01/19/25 14:29 01/19/25 14:29 01/19/25 14:29 01/19/25 14:29 01/19/25 14:29 01/19/25 14:29 Oxygen Delivery Method Room Air Weight: 69.003 kg Body Mass Index (BMI) 24.5 Intake & Output: Intake and Output for Last 24 Hours 01/17/25 01/18/25 01/19/25 23:59 23:59 23:59 Intake Total 3561.25 / 3561.25 2483.33 / 2483.33 Output Total 300 / 300 Balance 3261.25 / 3261.25 2483.33 / 2483.33 Lab / Micro Data 01/19/25 05:45 01/19/25 05:45 Labs: Laboratory Results - last 24 hr 01/18/25 12:14: Free [place] LC, Quant 37.6 H, Free Lambda LC, Quant 47.6 H, Free [place]/Lambda Ratio 0.79 01/18/25 19:45: Urine Color Straw, Urine Clarity Sl. Cloudy, Urine pH 6.5, Ur Specific [place] 1.015, Urine Protein 30 H, Urine Glucose (UA) Normal, Urine Ketones Negative, Urine Occult Blood 10 H, Urine Nitrite Negative, Urine Bilirubin Negative, Urine Urobilinogen Normal, Ur Leukocyte Esterase Negative, Urine RBC 0 SEEN, Urine WBC 0-5 SEEN, Ur Squamous Epith Cells 0 SEEN, Urine Bacteria 0 SEEN, Urine Mucus 0 SEEN 01/19/25 05:45: WBC 6.0, RBC 2.82 L, Hgb 8.3 L, Hct 25.6 L, MCV 90.8, MCH 29.4, MCHC 32.4, RDW Std Deviation 44.0 H, RDW Coeff of [place] 13.2, Plt Count 313, MPV 10.2, Immature Gran % (Auto) 0.300, Neut % (Auto) 77.5 H, Lymph % (Auto) 6.6 L, [place] % (Auto) 10.8 H, Eos % (Auto) 4.3, Baso % (Auto) 0.5, Absolute Neuts (auto) 4.7, Absolute Lymphs (auto) 0.40 L, Nucleated RBC % 0, Sodium 141, Potassium 4.2, Chloride 108, Carbon Dioxide 19.6 L, Anion Gap 13, BUN 50 H, Creatinine 3.51 H, Estim Creat Clear Calc 14.89 L, Est GFR (MDRD) Non-Af 17 L, BUN/Creatinine Ratio 14.2, Glucose 80, Calcium 11.8 H, Albumin 3.0 L Physical Exam Narrative Alert and oriented x 3, no apparent distress S1, S2, RRR Lungs sound clear anteriorly and posteriorly. On room air Abdomen soft, nontender, nondistended No edema Assessment & Plan Assessment/Plan (1) Acute kidney injury: (2) Hypercalcemia: (3) Recurrent left pleural effusion: PLAN: Plan Acute renal failure Hypercalcemia Previous serum protein electrophoresis positive. [place] and lambda light chain assay pending. Previous history of pleural effusions, pleural mass. Supposed to see someone for pleural biopsy at [facility]. 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 Clonal studies have been sent at [facility], pending. Most likely has some form of lymphoma/lymphoproliferative disease/plasma cell disorder. CT abdomen and chest reviewed. There is a small right pelvic mass, not sure if this is what is causing right ureteral blockage but he has right-sided hydronephrosis. On personal image review, the hydronephrosis does not track all the way into the pelvis so it might be a different problem. He also has a pleural-based mass. Pleural effusion. Acute renal failure predominantly mediated by hypercalcemia. Creatinine is better. Hypercalcemia. Better after Zometa. He may need urology evaluation as outpatient for hydronephrosis. Discussed with hospitalist. Discussed with family at bedside.
[2025-01-19 21:25] VITALS: BP 150/74; PULSE 103; RESP 16; TEMP 37.2; O2SAT 95
[2025-01-19] MEDS: MELATONIN 3 MG TABLET PO (21:25)
[2025-01-20 04:45] VITALS: BP 150/65; PULSE 86; RESP 16; TEMP 36.6; O2SAT 94
[2025-01-20] MEDS: 0.9% Normal Saline (1000mL) 1,000 ML 125 ML IV ×2 (05:43→20:23)
[2025-01-20 05:56] LABS: Hematocrit 25.6 % (40-54); Hemoglobin 8.2 g/dL (13.0-16.5); Immature Granulocytes Count 0.040 X10^3/uL (0.0-0.0); Mean Corp Hgb Conc 32.0 g/dL (32-36); Mean Corpuscular Volume 90.8 fL (80-94); Mean Platelet Vol. 9.6 fl (6.2-12.0); NRBC Flagged by Analyzer 0 % (0-5); POSITIVE DIFFERENTIAL YES; Platelet Count 287 K/mm3 (150-450); RBC Distribution Width CV 13.3 % (11.6-14.6); RBC Distribution Width SD 44.0 fl (35.1-43.9); Red Blood Count 2.82 M/mm3 (4.6-6.2); White Blood Count 6.4 K/mm3 (4.4-11.0)
[2025-01-20 06:19] LABS: Anion Gap 12 (5-15); BUN 50 mg/dL (4-19); BUN/Creat Ratio 14.2 RATIO (10-20); Calcium,Total 10.9 mg/dL (7.6-11.0); Carbon Dioxide 18.8 mmol/L (21.0-32.0); Chloride 110 mmol/L (98-108); Estimated Creatinine Clearance 14.77 ml/min (50-250); Glucose 89 mg/dL (70-99); Potassium 4.0 mmol/L (3.3-5.1)
[2025-01-20 07:59] VITALS: BP 147/79; PULSE 82; RESP 16; TEMP 36.9; O2SAT 98
[2025-01-20] MEDS: Ensure Plus High Protein 120 ML LIQUID PO (09:33)
[2025-01-20] MEDS: Heparin Injection (Vial) 5,000 UNIT/ML VIAL 5000 UNIT SC ×2 (09:33→21:12)
--- NOTE | 2025-01-20 14:21 | PCM.PN.REN ---
Subjective Subjective Patient resting in bed. No complaints. at bedside. Objective Data Objective Data Vital Signs: Vital Signs Temp Pulse Resp BP Pulse Ox O2 Del Method 98.4 F 82 16 147/79 H 98 Room Air 01/20/25 07:59 01/20/25 07:59 01/20/25 07:59 01/20/25 07:59 01/20/25 07:59 01/20/25 09:07 Oxygen Delivery Method Room Air Weight: 69.003 kg Body Mass Index (BMI) 24.5 Intake & Output: Intake and Output for Last 24 Hours 01/18/25 01/19/25 01/20/25 23:59 23:59 23:59 Intake Total 3561.25 / 3561.25 3877.08 / 3877.08 1500 / 1500 Output Total 300 / 300 Balance 3261.25 / 3261.25 3877.08 / 3877.08 1500 / 1500 Lab / Micro Data 01/20/25 05:45 01/20/25 05:45 Labs: Laboratory Results - last 24 hr 01/18/25 12:14: Free [place] LC, Quant 37.6 H, Free Lambda LC, Quant 47.6 H, Free [place]/Lambda Ratio 0.79 01/20/25 05:45: WBC 6.4, RBC 2.82 L, Hgb 8.2 L, Hct 25.6 L, MCV 90.8, MCH 29.1, MCHC 32.0, RDW Std Deviation 44.0 H, RDW Coeff of [place] 13.3, Plt Count 287, MPV 9.6, Immature Gran % (Auto) 0.600, Neut % (Auto) 76.0 H, Lymph % (Auto) 6.7 L, [place] % (Auto) 11.5 H, Eos % (Auto) 4.4, Baso % (Auto) 0.8, Absolute Neuts (auto) 4.9, Absolute Lymphs (auto) 0.43 L, Nucleated RBC % 0, Sodium 141, Potassium 4.0, Chloride 110 H, Carbon Dioxide 18.8 L, Anion Gap 12, BUN 50 H, Creatinine 3.54 H, Estim Creat Clear Calc 14.77 L, Est GFR (MDRD) Non-Af 17 L, BUN/Creatinine Ratio 14.2, Glucose 89, Calcium 10.9 Physical Exam Narrative Alert and oriented x 3, no apparent distress S1, S2, RRR Lungs sound clear anteriorly and posteriorly. On room air Abdomen soft, nontender, nondistended No edema Assessment & Plan Assessment/Plan (1) Acute kidney injury: (2) Hypercalcemia: (3) Recurrent left pleural effusion: PLAN: Plan Acute renal failure Hypercalcemia Previous serum protein electrophoresis positive. [place] and lambda light chain assay pending. Previous history of pleural effusions, pleural mass. Supposed to see someone for pleural biopsy at [facility]. 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 Clonal studies have been sent at [facility], pending. Most likely has some form of lymphoma/lymphoproliferative disease/plasma cell disorder. CT abdomen and chest reviewed. There is a small right pelvic mass, not sure if this is what is causing right ureteral blockage but he has right-sided hydronephrosis. On personal image review, the hydronephrosis does not track all the way into the pelvis so it might be a different problem. He also has a pleural-based mass. Pleural effusion, possible thoracentesis today or tomorrow. Acute renal failure predominantly mediated by hypercalcemia. Creatinine 3.7 on admission, creatinine 3.5 yesterday and today. Calcium 10.9 today. Albumin 3.0. UA no blood, 30 protein. Continue with IV fluids. No acute indication for renal placement therapy. Has good urine output. Hypercalcemia. Better after Zometa. Nephrology plan discussed with Dr. Donovan. Assessment and plan reviewed with Dr. Gutierrez.
[2025-01-20 16:12] VITALS: BP 158/87; PULSE 94; RESP 18; TEMP 37.1; O2SAT 98
--- NOTE | 2025-01-20 18:25 | PCM.PN.HOSP ---
Reason for Visit Chief Complaint: Shortness of breath left-sided chest pain Subjective Subjective Patient was seen and examined today, his creatinine is a little bit improved today. Patient's calcium is normal, patient's hemoglobin is unchanged from yesterday. I talked briefly with nephrology about his care, labs will be repeated tomorrow and IV fluid administration will continue. I have elected to set the patient up for an ultrasound-guided thoracentesis on the left side tomorrow. Objective Data Objective Data Vital Signs: Vital Signs Temp Pulse Resp BP Pulse Ox O2 Del Method 98.7 F 94 18 158/87 H 98 Room Air 01/20/25 16:12 01/20/25 16:12 01/20/25 16:12 01/20/25 16:12 01/20/25 16:12 01/20/25 16:12 Oxygen Delivery Method Room Air Weight: 69.003 kg Body Mass Index (BMI) 24.5 Intake & Output: Intake and Output for Last 24 Hours 01/18/25 01/19/25 01/20/25 23:59 23:59 23:59 Intake Total 3561.25 / 3561.25 3877.08 / 3877.08 3280 / 3280 Output Total 300 / 300 Balance 3261.25 / 3261.25 3877.08 / 3877.08 3280 / 3280 Lab / Micro Data 01/20/25 05:45 01/21/25 05:26 Labs: Laboratory Results - last 24 hr 01/20/25 05:45: WBC 6.4, RBC 2.82 L, Hgb 8.2 L, Hct 25.6 L, MCV 90.8, MCH 29.1, MCHC 32.0, RDW Std Deviation 44.0 H, RDW Coeff of [place] 13.3, Plt Count 287, MPV 9.6, Immature Gran % (Auto) 0.600, Neut % (Auto) 76.0 H, Lymph % (Auto) 6.7 L, [place] % (Auto) 11.5 H, Eos % (Auto) 4.4, Baso % (Auto) 0.8, Absolute Neuts (auto) 4.9, Absolute Lymphs (auto) 0.43 L, Nucleated RBC % 0, Sodium 141, Potassium 4.0, Chloride 110 H, Carbon Dioxide 18.8 L, Anion Gap 12, BUN 50 H, Creatinine 3.54 H, Estim Creat Clear Calc 14.77 L, Est GFR (MDRD) Non-Af 17 L, BUN/Creatinine Ratio 14.2, Glucose 89, Calcium 10.9 Physical Exam Narrative alert, oriented x3, no apparent distress, average body habitus and healthy appearing General Appearance: cooperative, well kempt and well developed Orientation / Consciousness: awake, oriented to person, oriented to place and oriented to time HEENT normocephalic, head/scalp atraumatic, hearing grossly normal bilaterally and moist oral mucous membranes Eyes PERRL, EOMs intact bilaterally and conjunctivae normal Neck supple, no JVD, thyroid normal and no carotid bruits General: trachea midline Resp normal respiratory effort, no retractions and no use of accessory muscles Resp Narrative: Decreased breath sounds are noted over the left mid and lower lung field Auscultation: Negative for rales, rhonchi or wheezes Cardio regular rate, regular rhythm, S1 normal heart sound, S2 normal heart sound, no murmurs, no rub and no gallops GI normal to inspection, nondistended, normoactive bowel sounds, soft to palpation, non-tender and non-distended Extremity no clubbing, cyanosis or edema Skin no rashes or lesions noted General Skin Exam: no breakdown Neuro oriented x3, CN's II-XII intact bilaterally, moves all extremities, no focal motor deficits and no sensory deficits noted Sensorium / Orientation: awake and alert Speech: speech normal Psych affect normal Assessment & Plan Assessment/Plan (1) Hypercalcemia: PLAN: Plan 1. 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 #5 mild anemia-etiology unclear, CBC will be monitored Total clinical time spent by myself addressing the patient's medical issues, reviewing all of his data, and collaborating with patient's care team: 35 minutes Charges/Coding Visit Charges Inpatient E&M: 78822 Subs Hosp L2
--- NOTE | 2025-01-20 18:26 | US_ITS ---
PROCEDURE: THORACENTESIS W US 01/21/2025 REASON FOR EXAM: LEFT PLEURAL EFFUSION TECHNIQUE: Diagnostic and therapeutic left THORACENTESIS W US COMPARISON: Abdomen and pelvis CT 01/18/2025. FINDINGS: Procedure: Following informed consent, and using standard sterile technique, an ultrasound- guided left thoracentesis was performed. 2% lidocaine local anesthesia was followed by placement of a 5 [place] catheter into the left pleural effusion. Approximately 1990 clear yellow fluid was successfully removed. No complication was encountered, in the patient left the department in good condition without significant complaint. US/Thoracentesis W US IMPRESSION: Successful diagnostic and therapeutic ultrasound-guided left thoracentesis. La boratory results pending. Reading Location: [facility]-
[2025-01-20 20:54] VITALS: BP 173/83; PULSE 100; RESP 18; TEMP 36.9; O2SAT 95
[2025-01-20 21:12] VITALS: BP 176/90
[2025-01-20] MEDS: MELATONIN 3 MG TABLET PO (21:16)
[2025-01-20 22:16] VITALS: BP 176/90; PULSE 100
[2025-01-21] VITALS (9 sets, daily range): BP systolic 107–183; BP diastolic 66–90; PULSE 94–109; RESP 16–20; TEMP 36.6–36.7; O2SAT 94–98
[2025-01-21] MEDS: 0.9% Normal Saline (1000mL) 1,000 ML 125 ML IV (04:23)
[2025-01-21 07:04] LABS: Albumin, Serum 3.0 g/dL (3.4-4.8); Anion Gap 15 (5-15); BUN 42 mg/dL (4-19); BUN/Creat Ratio 12.4 RATIO (10-20); Calcium,Total 10.9 mg/dL (7.6-11.0); Carbon Dioxide 16.6 mmol/L (21.0-32.0); Chloride 109 mmol/L (98-108); Estimated Creatinine Clearance 15.38 ml/min (50-250); Glucose 98 mg/dL (70-99); Potassium 3.7 mmol/L (3.3-5.1)
--- NOTE | 2025-01-21 10:07 | PN.RENAL_ITS ---
Subjective Subjective Sitting up in bed. Developed little shortness of breath early this morning, on O2. Scheduled to have thoracentesis later today. States good appetite. at bedside. Objective Data Objective Data Vital Signs: Vital Signs Temp Pulse Resp BP Pulse Ox O2 Del Method O2 Flow Rate 97.8 F 100 20 H 153/83 H 98 Nasal Cannula 2 01/21/25 09:00 01/21/25 09:00 01/21/25 09:00 01/21/25 09:00 01/21/25 09:00 01/21/25 09:00 01/21/25 09:00 Oxygen Flow Rate (L/min) 2 Oxygen Delivery Method Nasal Cannula Weight: 69.003 kg Body Mass Index (BMI) 24.5 Intake & Output: Intake and Output for Last 24 Hours 01/19/25 01/20/25 01/21/25 23:59 23:59 23:59 Intake Total 3877.08 / 3877.08 3980 / 3980 1000 / 1000 Balance 3877.08 / 3877.08 3980 / 3980 1000 / 1000 Lab / Micro Data 01/20/25 05:45 01/21/25 05:26 Labs: Laboratory Results - last 24 hr 01/21/25 05:26: Sodium 141, Potassium 3.7, Chloride 109 H, Carbon Dioxide 16.6 L , Anion Gap 15, BUN 42 H, Creatinine 3.40 H, Estim Creat Clear Calc 15.38 L, Est GFR (MDRD) Non-Af 17 L, BUN/Creatinine Ratio 12.4, Glucose 98, Calcium 10.9, Phosphorus 3.3, Albumin 3.0 L Physical Exam Narrative Alert and oriented x 3, no apparent distress S1, S2, RRR Lungs sound clear anteriorly and posteriorly with diminished breath sound left posterior base. No rales or rhonchi. Abdomen soft, nontender, nondistended No edema Assessment & Plan Assessment/Plan (1) Acute kidney injury: (2) Hypercalcemia: (3) Recurrent left pleural effusion: PLAN: Plan Acute renal failure Hypercalcemia Previous serum protein electrophoresis positive. [place] and lambda light chain assay pending. Previous history of pleural effusions, pleural mass. Supposed to see someone for pleural biopsy at [facility]. 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 Clonal studies have been sent at [facility], pending. Most likely has some form of lymphoma/lymphoproliferative disease/plasma cell disorder. CT abdomen and chest reviewed. There is a small right pelvic mass, not sure if this is what is causing right ureteral blockage but he has right-sided hydronephrosis. On personal image review, the hydronephrosis does not track all the way into the pelvis so it might be a different problem. He also has a pleural-based mass. Pleural effusion, possible thoracentesis today or tomorrow. - Acute renal failure predominantly mediated by hypercalcemia. Creatinine 3.7 on admission, creatinine 3.5 yesterday --> today SCr 3.4. Calcium 10.9 today. Albumin 3.0. UA no blood, 30 protein. Has been on IV fluids since admission. Will stop IV fluids, developed some shortness of breath early this am and on O2 nasal canula. Scheduled to have thoracentesis today. No acute indication for renal placement therapy. Has good urine output. - Hypercalcemia. Better after Zometa. Calcium 13.6 on admission, last 2 days calcium 10.9. Albumin 3.0. [place] and lambda light chains elevated, ratio 0.79. Vitamin D 25 hyrdoxy 81.7, iPTH 32, Vitamin D 1,25 pending. Nephrology plan discussed with Dr. Donovan. Will arrange for hospital follow-up at time of hospital discharge. Assessment and plan reviewed with Dr. Gutierrez.
--- NOTE | 2025-01-21 12:03 | DCINST_ITS ---
Discharge Instructions DC O2, CPAP, BIPAP needs Home O2 Discharge instructions: No Dressing / Incision Discharge Activity: Return to Normal Activity Weight Bearing Status: Full weight bearing Follow Up Care Test Results: Test results from this visit will be discussed in further detail at your follow- up appointment, if applicable. Discharge Plan Admission Admit Date/Time: 01/18/25 10:56 Primary Reason for Your Visit: Acute kidney injury, hypercalcemia, left pleural effusion Attending Provider: Sacha Donovan Primary Care Provider: Sacha Hernandez Consulting Providers: Harry Gutierrez Discharge Orders/Prescriptions Prescriptions: No Action melatonin 3 mg tablet 3 mg PO QHS PRN (Reason: sleep) Referrals / Follow Up: Harry Gutierrez MD [Med Staff - Consulting] - See Referral Note (Follow up with their office as directed, by Friday of next week, call their office to schedule an appointment) Sacha Hernandez DO [Primary Care Provider] - See Referral Note (In 2 weeks) Disposition Disposition (needs filled in before D/C Order can be placed): Home, Self Care
[2025-01-21 12:08] LABS: Vitamin D 1,25-Dihydroxy 142.0 pg/mL (24.8-81.5)
--- NOTE | 2025-01-21 14:07 | FLU_PTH ---
PATIENT: JUJU HALL LOC: MS3 U#:[id number] AGE/SX: 79/M [place] [facility] [place]: Dr. Sacha Donovan DO : 1945 BED: 1 DIS: 01/21/2025 SPEC #: [id number] RECD: 01/21/25 14:47 STATUS: LOUIE REQ #: [id number] BRYAN: 01/21/25 14:[address]: Sacha Donovan DEPT: CYTOLOGY RECD BY: Francis Wood ENTERED: 01/24/25 10:01 SP TYPE: Fluid OTHR DR: MD Dr. Sacha Llanes DO Tissues: A - Pleural fluid, NOS Procedures: Special Stain Group II Surgery Specimen Level IV Cytospin Fluid HEADER OPERATION: Thoracentesis PRE-OP DIAGNOSIS: Left pleural effusion TISSUE SUBMITTED: A- Thoracentesis fluid for cytology DIAGNOSIS CYTOLOGY A. Left pleural effusion, thoracentesis: - Atypical lymphocytosis, suspicious for lymphoproliferative disorder. CYTOLOGY STUDY Slides are reviewed. CYTOLOGY GROSS A. Received is 120 ml of yellow-cloudy fluid labeled with the patient's name and and designated per the requisition as Thoracentesis fluid. Submitted for cytology and cell block preparation. Mr 01/24/2025 CPT: 53402,45270
[2025-01-21] MEDS: Lidocaine 2% (20 ml mdv) 20 ML Vial INFILT (14:45)
[2025-01-21 14:50] LABS: Cytology, Body Fluid / CSF SEE PATHOLOGY REPORT
--- NOTE | 2025-01-21 15:59 | PCM.DC.SUM ---
Providers Date of Admission: 01/18/25 Date of Discharge: 01/21/25 Primary Care Physician: Dr. Sacha Hernandez, DO Consultations 01/18/25 12:08 Consult: Nephrology Routine Consulting Provider: Harry Gutierrez Reason for Consult: KO EMERGENT Consult: No MD Notified: Yes Date Notified: 01/18/25 Time Notified: 10:59 Method of Notification: Verbal Reason For Visit: ACUTE KIDNEY INJURY, HYPERCALCEMIA Diagnosis Discharge Diagnosis (1) Acute kidney injury: Status: Acute Code(s): N17.9 - Acute kidney failure, unspecified (2) Hypercalcemia: Status: Acute Code(s): E83.52 - Hypercalcemia (3) Recurrent left pleural effusion: Status: Acute Code(s): J90 - Pleural effusion, not elsewhere classified Plan 1. 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 #5 mild anemia-etiology unclear, CBC will be monitored Total clinical time spent by myself addressing the patient's medical issues, reviewing all of his data, and collaborating with patient's care team: 35 minutes Medications at Discharge Home Medications melatonin 3 mg tablet 3 mg PO QHS PRN sleep 01/19/25 Hospital Course Operations None Procedures None Summary of Care Provided Minutes Spent on Discharge: 32 Hospital Course: This 79-year-old white male was seen in the emergency room at [facility] with a chief complaint of shortness of breath with left-sided chest discomfort. The left-sided chest discomfort was worse when he takes in a deep breath. His shortness of breath is worse when he lies down. Patient was found recently to have a left pleural effusion which was drained and sent for pathology, there are predominance of T lymphocytes in the fluid suggesting that he may have a T-cell lymphoma, other studies have to be done on the fluid to confirm the presence of lymphoma. Labs were performed in the emergency room, BUN was abnormal at 51 and creatinine was abnormal at 3.72, calcium was elevated at 13.6. Patient's pulse ox on room air was 100%, chest x-ray showed a moderate left pleural effusion. Patient was admitted to [place] [address], he was seen in consultation by nephrology and given a dose of Zometa for his hypercalcemia, he was placed on IV fluids and his labs were monitored. Patient's creatinine decreased slightly during his hospital stay, CT of the abdomen and pelvis was obtained which showed a possible right pelvic mass, there was evidence of mild right hydronephrosis but it was not thought that this was causing his acute kidney injury. Patient underwent a thoracentesis with removal of fluid from his left hemithorax, this fluid was sent for cytology. On 01/21/2025, patient was seen and examined: On examination he appeared in good health and spirits. Vital signs as documented. Skin warm and dry and without overt rashes. Neck without JVD, neck was supple, trachea midline, thyroid was normal. Lungs clear bilaterally, normal air movement was noted. Heart exam notable for regular rhythm, normal sounds and absence of murmurs, rubs or gallops. Abdomen unremarkable and without evidence of organomegaly, masses, or abdominal aortic enlargement. Bowel sounds are present, abdomen is not distended. Extremities nonedematous, no cyanosis was noted, no clubbing was noted. Neuro: Cranial nerves II through XII are grossly intact, no focal motor deficits were noted, sensation to light touch and pinprick intact, motor exam 5/5 throughout. Psych: Patient is alert and oriented x3, he does not appear anxious or depressed, he does not appear agitated. Patient was felt to be stable for discharge home on 01/21/2025, I talked extensively with the patient's PCP by phone to go over the patient's hospital course and discuss patient care. Weight / BMI Weight Weight: 69.003 kg Body Mass Index (BMI) 24.5 ABG / Lab / Microbiology Data 01/20/25 05:45 01/21/25 05:26 Laboratory: Laboratory Results - last 24 hr 01/18/25 12:14: Vit D 1,25-Dihydroxy 142.0 H 01/21/25 05:26: Sodium 141, Potassium 3.7, Chloride 109 H, Carbon Dioxide 16.6 L, Anion Gap 15, BUN 42 H, Creatinine 3.40 H, Estim Creat Clear Calc 15.38 L, Est GFR (MDRD) Non-Af 17 L, BUN/Creatinine Ratio 12.4, Glucose 98, Calcium 10.9, Phosphorus 3.3, Albumin 3.0 L Radiography Diagnostic Testing: Radiology Impression Thoracentesis Ultrasound 01/20/25 18:26 IMPRESSION: Successful diagnostic and therapeutic ultrasound-guided left thoracentesis. Laboratory results pending. Reading Location: [place] [address] D/C Instructions Weight Bearing Status: Full weight bearing DC O2, CPAP, BIPAP Needs Home O2 Discharge instructions: No Meaningful Use Info Meaningful Use Meaningful Use Diagnoses (Choose all that apply): None applicable Discharge Plan Admission Admit Date/Time: 01/18/25 10:56 Primary Reason for Your Visit: Acute kidney injury, hypercalcemia, left pleural effusion Attending Provider: Sacha Donovan Primary Care Provider: Sacha Hernandez Consulting Providers: Harry Gutierrez Discharge Orders/Prescriptions Prescriptions: No Action melatonin 3 mg tablet 3 mg PO QHS PRN (Reason: sleep) Referrals / Follow Up: Harry Gutierrez MD [Med Staff - Consulting] - See Referral Note (Follow up with their office as directed, by Friday of next week, call their office to schedule an appointment) Sacha Hernandez DO [Primary Care Provider] - See Referral Note (In 2 weeks) Disposition Disposition (needs filled in before D/C Order can be placed): Home, Self Care Charges/Coding Visit Charges Inpatient E&M: 42656 Disch Hosp >30min
--- NOTE | 2025-01-21 16:11 | CASEMGMT ---
RN CM into pt room, pt sitting up in bed with family at bedside. Pt denies any homegoing needs at this time. Pt uses a cane to ambulate. Pt requests IS. Updated pt nurse.
== END 2025-01-21 16:54 | disposition home or self-care (01) ==
LOC: ED 11:15 → MS3 01-19 05:49
PROVIDERS: Nurse Practitioner Adult Health; Admitting Provider Internal Medicine; Emergency Provider Emergency Medicine; PCP Family Medicine; Visit Provider Internal Medicine
DX: N17.9 Acute kidney failure, unspecified (principal); J90 Pleural effusion, not elsewhere classified; D64.9 Anemia, unspecified; E83.52 Hypercalcemia; R63.4 Abnormal weight loss; N13.30 Unspecified hydronephrosis; R91.8 Other nonspecific abnormal finding of lung field
CPT/HCPCS: 32555; 36415; 71046; 74176; 76770; 80048; 80069; 81001; 82040; 82306; 82652; 83883; 83970; 84484; 85025; 88108; 88305; 88313; 93005; 96361; 96365; 96372; 96375; 97802; 99221; 99285; J3489; G0378

== ENCOUNTER → 2025-02-02 | Outpatient (CLI) | payer MEDICARE, SELFPAY ==
[2025-02-02 13:08] LABS: AST(SGOT) 20 U/L (<=37); Alanine Aminotransfer ALT/SGPT 30 U/L (<=46); Albumin, Serum 3.9 g/dL (3.4-4.8); Alkaline Phosphatase 149 U/L (40-129); Anion Gap 16 (5-15); BUN 54 mg/dL (4-19); BUN/Creat Ratio 17.5 RATIO (10-20); Calcium,Total 12.4 mg/dL (7.6-11.0); Carbon Dioxide 21.1 mmol/L (21.0-32.0); Chloride 100 mmol/L (98-108); Globulin 3.8 g/dL (2.2-4.2); Glucose 111 mg/dL (70-99); Potassium 4.5 mmol/L (3.3-5.1)
== END | disposition home or self-care (01) ==
PROVIDERS: PCP Family Medicine; Visit Provider Family Medicine
DX: E83.52 Hypercalcemia (principal); N17.9 Acute kidney failure, unspecified
CPT/HCPCS: 36415; 80053

== ENCOUNTER 2025-02-04 11:19 | Outpatient (CLI) | payer MEDICARE, SELFPAY ==
[2025-02-04 11:36] VITALS: BP 117/69; PULSE 65; RESP 14; TEMP 35.5; O2SAT 99; BMI 22.8
[2025-02-04] MEDS: Zoledronic Acid 4 MG in 0.9% Normal Saline (100mL Bag) 100 ML 200 MG IV (12:12)
[2025-02-04] MEDS: 0.9% NaCl IVPB Med Flush (100mL) 15 ML IV (12:12)
[2025-02-04 13:04] VITALS: BP 125/66; PULSE 66
== END 2025-02-04 23:59 | disposition home or self-care (01) ==
LOC: MEDOUTP 11:23
PROVIDERS: PCP Family Medicine; Referring Provider Family Medicine; Visit Provider Family Medicine
DX: E83.52 Hypercalcemia (principal)
CPT/HCPCS: 96365; J3489; A4216

== ENCOUNTER 2025-02-14 07:00 | Emergency (ER) | payer MEDICARE, SELFPAY ==
[2025-02-14 07:01] VITALS: BP 124/64; PULSE 78; RESP 18; TEMP 36.8; O2SAT 98
[2025-02-14 07:12] VITALS: BMI 22.4
--- NOTE | 2025-02-14 07:39 | CT_ITS ---
PROCEDURE: ABDOMEN/PELVIS WITHOUT CONT 02/14/2025 REASON FOR EXAM: CONSTIPATION TECHNIQUE: Procedure Code: CTABDPEL Modality: CT Procedure: ABDOMEN/PELVIS WITHOUT CONT Noncontrast technique limits evaluation of the abdominal and pelvic viscera. Coronal and Sagittal reconstruction series were provided. One or more dose reduction techniques were used (e.g., Automated exposure control, adjustment of the mA and/or kV according to patient size, use of iterative reconstruction technique). RADIATION DOSE SUMMARY: DLP: 329 mGycm COMPARISON: January 18, 2025 FINDINGS: Lung bases: There is 3.2 by 1.6 cm pleural-based density at the left lung base, image 16/184, Hounsfield units = 30. There is a 2.6 by 1.6 cm pleural-based nodular density at the left heart border, same image, Hounsfield units = 39. there is marked improvement of a left pleural effusion compared to the prior. There is a 0.4 cm nodular density at the right lung base, image 5/84, new. Liver: Unremarkable Gallbladder: Unremarkable Spleen: Unremarkable Pancreas: Unremarkable Adrenals: There is a 1.6 cm nodule in the left adrenal, Hounsfield units = 32, image 41/184. Kidneys: There is moderate right hydronephrosis with dilation of the right ureter, secondary to a mass in the right pelvis measuring 3.2 by 2.2 cm, image 137/184, similar to the prior. The left kidney shows no stone or hydronephrosis. Bladder: Unremarkable Reproductive Organs: Prostate calcifications are noted Bowel: Gas and stool is noted throughout the colon. There is a moderate stool load. There is diverticulosis of the distal descending and sigmoid colon with no visible acute diverticulitis. Appendix: Unremarkable Lymph nodes: There is no new adenopathy Vasculature: Atherosclerotic calcifications are noted. Peritoneum / Retroperitoneum: There is no free air or free fluid. Bones: Degenerative changes in the lumbar spine are similar to the prior. There is no visible acute bony abnormality. CT/Abdomen/Pelvis without Cont IMPRESSION: There is 3.2 by 1.6 cm pleural-based density at the left lung base, image 16/18 4, Hounsfield units = 30. There is a 2.6 by 1.6 cm pleural-based nodular density at the left heart border , same image, Hounsfield units = 39. PET scan correlation is recommended. There is marked improvement of a left pleural effusion compared to the prior. There is a 0.4 cm nodular density at the right lung base, image 5/84, new. There is a 1.6 cm nodule in the left adrenal, Hounsfield units = 32, image 41/1 84. This appears increased compared to the prior. There is diverticulosis of the distal descending and sigmoid colon with no visi ble acute diverticulitis. Reading Location: [facility]
--- NOTE | 2025-02-14 07:44 | EX.ED.DYSGE1 ---
HPI History of Present Illness Chief Complaint: Constipation Narrative Narrative: Chief complaint and HPI: 79-year-old male with lung mass status post recent lung biopsy, HTN presents for evaluation of constipation. Patient states on Friday he had a lung biopsy performed. States the procedure went well. States he has been intermittently taking oxycodone secondary to pain. Patient states he has not had a bowel movement since Friday. Has been taking daily MiraLAX with little relief. He denies any fever, chills, shortness of breath, chest pain, nausea, vomiting, constipation, diarrhea. States he has a little abdominal discomfort. Has been eating and drinking. Passing gas. Review of systems: See HPI Medications: As listed on the chart Allergies: As listed on the chart PFSH: Per chart Vital signs: As listed on the chart. Reviewed. Physical exam: Gen: A&O x3, NAD Head: Normocephalic, atraumatic Eyes: No sclera icterus, conjunctiva clear ENT: Moist mucous membranes Neck: Trachea midline, No JVD CV: RRR, no murmurs, no peripheral edema Resp: Lungs CTA BL, no w/r/c, left-sided chest surgical incisions healing well without signs of infection GI: Abd soft, non-distended, non-tender, no r/r/g Rectal: Normal external examination. No evidence of hemorrhoids or fissures. Normal tone and sensation. No masses, fluctuance, or tenderness. No pain out of proportion. Stool brown on gloved finger. Stool present in the rectal vault at my fingertip. Soft. Unable to reach for manual disimpaction. Musc: Full ROM, no deformity Skin: Warm, dry Neuro: Alert, oriented, grossly intact, sensation intact Psych: Cooperative, appropriate mood and affect [facility] Medical History Hypercalcemia Dyspnea Recurrent left pleural effusion Acute kidney injury Pleural effusion Lung mass Macular degeneration Home Medications ?Medication ?Instructions ?Recorded ?Last Taken ?Type melatonin 3 mg tablet 3 mg PO QHS PRN sleep 01/19/25 Unknown History ascorbate calcium (vitamin C) 500 500 mg PO QDAY 02/01/25 Unknown History mg tablet cholecalciferol (vitamin D3) 125 125 mcg PO QDAY 02/01/25 Unknown History mcg (5,000 unit) capsule omega-3 fatty acids-fish oil 300 1 cap PO DAILY 02/01/25 Unknown History mg-500 mg capsule (Fish Oil) magnesium 250 mg tablet 250 mg PO DAILY 02/04/25 Unknown History metoprolol tartrate 50 mg tablet 50 mg PO DAILY 02/04/25 Unknown History Allergy/AdvReac Type Severity Reaction Status Date / Time No Known Allergies Allergy Verified 02/14/25 07:02 Family History Brother Cancer throat Surgical History History of thoracentesis Social History household members: significant other current occupational status: retired 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 pets and animals: No history of recent travel: No Smoking Status: Never smoker alcohol intake: never substance use type: does not use caffeine: No what type of physical activity do you participate in: walking seatbelt use: always EXAM Physical Exam Const Vital Signs: 02/14/25 07:01 02/14/25 11:10 Temperature 98.2 F 97.5 F L Temperature Source Oral Oral Pulse Rate 78 Respiratory Rate 18 16 Blood Pressure 124/64 H 133/59 H Blood Pressure Mean 84 83 Pulse Ox 98 Oxygen Delivery Method Room Air Room Air MDM MDM MDM Narrative Medical decision making narrative: 79-year-old male with lung mass status post recent lung biopsy, HTN presents for evaluation of constipation. Patient states on Friday he had a lung biopsy performed. States the procedure went well. States he has been intermittently taking oxycodone secondary to pain. Patient states he has not had a bowel movement since Friday. Has been taking daily MiraLAX with little relief. Differential diagnosis includes but is not limited to constipation, ileus, obstruction, metastatic disease. I suspect more likely constipation from oxycodone use however given that patient does not regular suffer from constipation and recently just had surgery we will obtain basic labs with CT abdomen pelvis. CBC without leukocytosis. Patient has baseline anemia with hemoglobin of 8.2. Platelets unremarkable. CMP shows baseline renal insufficiency with creatinine of 2.89 and a BUN of 61. No transaminitis. Magnesium elevated at 2.7. No significant electrolyte abnormality otherwise. Will get CT abdomen pelvis without contrast due to CKD. CT abdomen pelvis shows pleural-based densities in the left lung. Marked improvement in the left pleural effusion. Nodular density in the right lung. A left nodule on the adrenals. Diverticulosis without diverticulitis. Patient does have stool in the rectum as well as more right sided constipation compared to left. Given these densities, I did speak personally to the radiologist over the phone. States that this is concurrent with his known lung mass. No concern for any infection. Patient symptoms are likely secondary to constipation from his oxycodone use. Will prescribe enema. Patient tolerated enema well with bowel movement. Patient stable to discharge home. Recommended continuing MiraLAX. Will give him senna as needed. Recommend stop taking narcotics if no longer needed. Follow-up with PCP. He confirmed understand the plan. Patient will discharge home Impression: 1. Constipation 2. Recent lung surgery on narcotics Lab Data Labs: Laboratory Results - last 24 hr 02/14/25 07:45 WBC 10.0 RBC 2.81 L Hgb 8.2 L Hct 25.2 L MCV 89.7 MCH 29.2 MCHC 32.5 RDW Std Deviation 47.2 H RDW Coeff of Martha 14.5 Plt Count 417 MPV 9.8 Immature Gran % (Auto) 0.700 Neut % (Auto) 84.5 H Lymph % (Auto) 3.3 L [place] % (Auto) 7.3 Eos % (Auto) 3.7 Baso % (Auto) 0.5 Absolute Neuts (auto) 8.4 H Absolute Lymphs (auto) 0.33 L Nucleated RBC % 0 Sodium 133 Potassium 4.8 Chloride 99 Carbon Dioxide 20.1 L Anion Gap 14 BUN 61 H Creatinine 2.89 H Estim Creat Clear Calc 17.89 L Est GFR (MDRD) Non-Af 21 L BUN/Creatinine Ratio 20.9 H Glucose 131 H Calcium 12.5 H Magnesium 2.7 H Total Bilirubin 0.23 AST 27 ALT 22 Alkaline Phosphatase 100 Total Protein 7.2 Albumin 3.5 Globulin 3.8 Albumin/Globulin Ratio 0.9 Radiography Diagnostic Testing: Clinical Impression(s) from Imaging Studies Abdomen/Pelvis CT 02/14/25 07:39 IMPRESSION: There is 3.2 by 1.6 cm pleural-based density at the left lung base, image 16/184, Hounsfield units = 30. There is a 2.6 by 1.6 cm pleural-based nodular density at the left heart border, same image, Hounsfield units = 39. PET scan correlation is recommended. There is marked improvement of a left pleural effusion compared to the prior. There is a 0.4 cm nodular density at the right lung base, image 5/84, new. There is a 1.6 cm nodule in the left adrenal, Hounsfield units = 32, image 41/184. This appears increased compared to the prior. There is diverticulosis of the distal descending and sigmoid colon with no visible acute diverticulitis. Reading Location: [facility] Discharge Plan Triage Chief Complaint: Constipation ED Provider: Ed Parada Dx/Rx/DC Orders Prescriptions: No Action ascorbate calcium (vitamin C) 500 mg tablet 500 mg PO QDAY Fish Oil 300-500 mg capsule 1 cap PO DAILY cholecalciferol (vitamin D3) 125 mcg (5,000 unit) capsule 125 mcg PO QDAY melatonin 3 mg tablet 3 mg PO QHS PRN (Reason: sleep) magnesium 250 mg tablet 250 mg PO DAILY metoprolol tartrate 50 mg tablet 50 mg PO DAILY Primary Care Provider: Sacha Hernandez Referrals: Sacha Hernandez DO [Primary Care Provider] - Print Language: Polish
[2025-02-14] MEDS: 0.9% Normal Saline (500mL Bag) 500 ML 1000 ML IV (07:51)
[2025-02-14 07:53] LABS: Hematocrit 25.2 % (40-54); Hemoglobin 8.2 g/dL (13.0-16.5); Immature Granulocytes Count 0.070 X10^3/uL (0.0-0.0); Mean Corp Hgb Conc 32.5 g/dL (32-36); Mean Corpuscular Volume 89.7 fL (80-94); Mean Platelet Vol. 9.8 fl (6.2-12.0); NRBC Flagged by Analyzer 0 % (0-5); POSITIVE DIFFERENTIAL YES; Platelet Count 417 K/mm3 (150-450); RBC Distribution Width CV 14.5 % (11.6-14.6); RBC Distribution Width SD 47.2 fl (35.1-43.9); Red Blood Count 2.81 M/mm3 (4.6-6.2); White Blood Count 10.0 K/mm3 (4.4-11.0)
[2025-02-14 08:12] LABS: AST(SGOT) 27 U/L (<=37); Alanine Aminotransfer ALT/SGPT 22 U/L (<=46); Albumin, Serum 3.5 g/dL (3.4-4.8); Alkaline Phosphatase 100 U/L (40-129); Anion Gap 14 (5-15); BUN 61 mg/dL (4-19); BUN/Creat Ratio 20.9 RATIO (10-20); Calcium,Total 12.5 mg/dL (7.6-11.0); Carbon Dioxide 20.1 mmol/L (21.0-32.0); Chloride 99 mmol/L (98-108); Estimated Creatinine Clearance 17.89 ml/min (50-250); Globulin 3.8 g/dL (2.2-4.2); Glucose 131 mg/dL (70-99); Magnesium 2.7 mg/dL (1.5-2.2); Potassium 4.8 mmol/L (3.3-5.1)
[2025-02-14 11:10] VITALS: BP 133/59; RESP 16; TEMP 36.4
[2025-02-14 11:33] VITALS: BP 137/99; PULSE 64; RESP 18; TEMP 36.4; O2SAT 100
== END 2025-02-14 11:44 | disposition home or self-care (01) ==
PROVIDERS: Emergency Provider Surgery; PCP Family Medicine; Visit Provider Surgery
DX: K59.00 Constipation, unspecified (principal); I10 Essential (primary) hypertension; Z98.890 Other specified postprocedural states
CPT/HCPCS: 74176; 80053; 83735; 85025; 96360; 99284; A4216

== ENCOUNTER → 2025-02-15 | Outpatient (CLI) | payer MEDICARE, SELFPAY ==
[2025-02-15 16:21] LABS: Albumin, Serum 3.6 g/dL (3.4-4.8); Anion Gap 14 (5-15); BUN 59 mg/dL (4-19); BUN/Creat Ratio 20.9 RATIO (10-20); Carbon Dioxide 20.5 mmol/L (21.0-32.0); Chloride 98 mmol/L (98-108); Glucose 103 mg/dL (70-99); Potassium 5.6 mmol/L (3.3-5.1)
[2025-02-15 16:32] LABS: Calcium,Total 12.6 mg/dL (7.6-11.0)
== END | disposition home or self-care (01) ==
LOC: LAB.FUTURE 10:52 → BFHLAB 10:53
PROVIDERS: PCP Family Medicine; Visit Provider Family Medicine
DX: E83.52 Hypercalcemia (principal); N17.9 Acute kidney failure, unspecified
CPT/HCPCS: 36415; 80069

== ENCOUNTER → 2025-03-03 | Outpatient (CLI) | payer MEDICARE, SELFPAY ==
--- NOTE | 2025-03-03 10:17 | ECHODONC_ITS ---
Reason For Study Reason For Study: ANTINEOPLASTIC CHEMO Procedure This was a 2D Doppler, Color Flow transthoracic echocardiogram. The study was technically difficult. Patient scanned laying flat due to inability to lay on left side due to wounds from recent biopsy. Exam performed in department. Left Ventricle Normal LV size. Mild concentric left ventricular hypertrophy. The left ventricular ejection fraction is 65 %. Stage 1 diastolic dysfunction. Right Ventricle Normal right ventricle. Atria The left and right atria are normal. Mitral Valve Trivial mitral valve insufficiency. Tricuspid Valve Normal tricuspid valve. Aortic Valve Mild focal aortic valve calcification. Pulmonic Valve Severe focal pulmonic valve calcification. Trivial pulmonic valve insufficiency. Great Vessels Normal sized aortic root. Pericardium/Pleural No pericardial effusion. MMode/2D Measurements & Calculations Ao root diam: 2.7 cm LA dimension(2D): 2.5 cm Time Measurements MV dec time: 0.20 sec Doppler Measurements & Calculations MV E max kendrick: 49.6 cm/sec Lat Peak E' Kendrick: 6.8 cm/sec Med Peak E' Kendrick: 5.7 cm/sec MV A max kendrick: 58.1 cm/sec E/E' lat: 7.2 E/E' med: 8.6 MV E/A: 0.85 MV V2 max: 74.1 cm/sec Ao V2 max: 89.6 cm/sec MV max P.2 mmHg MV dec slope: 263.1 cm/sec2 Ao max P.2 mmHg MV V2 mean: 41.9 cm/sec Ao V2 mean: 63.6 cm/sec MV mean P.80 mmHg Ao mean P.9 mmHg MV V2 VTI: 17.9 cm Ao V2 VTI: 17.0 cm AV (velocity ratio): 0.77 LV V1 max: 68.6 cm/sec PA V2 max: 138.0 cm/sec LV V1 max P.9 mmHg PA V2 mean: 94.0 cm/sec LV V1 mean P.1 mmHg LV V1 mean: 48.5 cm/sec LV V1 VTI: 13.0 cm ECHO/ONC Echo Complete Interpretation Summary The left ventricular ejection fraction is 65 %. Stage 1 diastolic dysfunction. Mild focal aortic valve calcification. The study was technically difficult. Ordering Physician: Parrish Miranda Referring Physician: Parrish Miranda Performed By: Christine Oropeza RCS
--- NOTE | 2025-03-03 10:17 | RAD_ITS ---
PROCEDURE: CHEST PA AND LATERAL 03/03/2025 REASON FOR EXAM: POSSIBLE PLEURAL EFFUSION TECHNIQUE: Procedure Code: RADCXR Modality: DX Procedure: CHEST PA AND LATERAL COMPARISON: Two-view chest, 01/18/2025. FINDINGS: The right lung is clear. Multifocal linear atelectasis of the left lung and there is a small pleural effusion, smaller than on the prior exam. The heart size is normal. The upper abdominal bowel gas pattern is normal. There are no significant bony abnormalities of the chest. RAD/Chest PA and Lateral IMPRESSION: Decreasing left pleural effusion. There is multifocal linear atelectasis in th e left lung. Reading Location: [place] [id number]
--- NOTE | 2025-03-03 10:17 | RAD_ITS ---
PROCEDURE: CHEST PA AND LATERAL 03/03/2025 REASON FOR EXAM: POSSIBLE PLEURAL EFFUSION TECHNIQUE: Procedure Code: RADCXR Modality: DX Procedure: CHEST PA AND LATERAL COMPARISON: Two-view chest, 01/18/2025. FINDINGS: The right lung is clear. Multifocal linear atelectasis of the left lung and there is a small pleural effusion, smaller than on the prior exam. The heart size is normal. The upper abdominal bowel gas pattern is normal. There are no significant bony abnormalities of the chest. RAD/Chest PA and Lateral IMPRESSION: Decreasing left pleural effusion. There is multifocal linear atelectasis in th e left lung. Reading Location: [place] [id number]
== END | disposition home or self-care (01) ==
PROVIDERS: PCP Family Medicine; Referring Provider Internal Medicine Medical Oncology; Visit Provider Internal Medicine Medical Oncology
DX: Z01.818 Encounter for other preprocedural examination (principal); C83.32 Diffuse large B-cell lymphoma, intrathoracic lymph nodes; J90 Pleural effusion, not elsewhere classified
CPT/HCPCS: 71046; 93306; 93356; 96360; 96375; 97802; A4216; J1938

== ENCOUNTER 2025-03-20 21:17 | Emergency (ER) | payer MEDICARE, SELFPAY ==
[2025-03-20 21:18] VITALS: BP 150/79; PULSE 129; RESP 19; TEMP 37.3; O2SAT 100
[2025-03-20 21:34] VITALS: BP 150/79; PULSE 129; RESP 16; TEMP 37.1; O2SAT 100
[2025-03-20 21:37] VITALS: BMI 21.0
[2025-03-20 22:06] VITALS: BP 150/79; PULSE 106; RESP 16; TEMP 37.2; O2SAT 97
== END 2025-03-20 22:05 | disposition left against medical advice (07) ==
LOC: ED 22:07
PROVIDERS: PCP Family Medicine
DX: Z53.21 Procedure and treatment not carried out due to patient leaving prior to being seen by health care provider (principal)
CPT/HCPCS: 99282

== ENCOUNTER 2025-03-21 18:58 | Inpatient (IN) | payer MEDICARE, SELFPAY ==
[2025-03-21] VITALS (7 sets, daily range): BP systolic 122–148; BP diastolic 64–75; PULSE 118–133; RESP 18–20; TEMP 37.2–38.5; O2SAT 94–98; BMI 21.2; BMI 21.1
--- NOTE | 2025-03-21 20:00 | RAD_ITS ---
PROCEDURE: CHEST PA AND LATERAL 03/21/2025 REASON FOR EXAM: NEUTROPENIC FEVER TECHNIQUE: Procedure Code: RADCXR Modality: DX Procedure: CHEST PA AND LATERAL COMPARISON: 03/03/2025. FINDINGS: The heart is normal in size. The lungs are clear. No acute osseous abnormalities. Reading Location: [address]
[2025-03-21 20:15] LABS: Hematocrit 25.5 % (40-54); Hemoglobin 8.5 g/dL (13.0-16.5); Immature Granulocytes Count 0.100 X10^3/uL (0.0-0.0); Mean Corp Hgb Conc 33.3 g/dL (32-36); Mean Corpuscular Volume 88.9 fL (80-94); Mean Platelet Vol. 10.3 fl (6.2-12.0); NRBC Flagged by Analyzer 0 % (0-5); POSITIVE DIFFERENTIAL YES; Platelet Count 160 K/mm3 (150-450); RBC Distribution Width CV 15.0 % (11.6-14.6); RBC Distribution Width SD 48.1 fl (35.1-43.9); Red Blood Count 2.87 M/mm3 (4.6-6.2); White Blood Count 6.4 K/mm3 (4.4-11.0)
[2025-03-21 20:31] LABS: AST(SGOT) 33 U/L (<=37); Alanine Aminotransfer ALT/SGPT 33 U/L (<=46); Albumin, Serum 3.1 g/dL (3.4-4.8); Alkaline Phosphatase 152 U/L (40-129); Anion Gap 12 (5-15); BUN 33 mg/dL (4-19); BUN/Creat Ratio 16.0 RATIO (10-20); Calcium,Total 11.4 mg/dL (7.6-11.0); Carbon Dioxide 25.0 mmol/L (21.0-32.0); Chloride 93 mmol/L (98-108); Estimated Creatinine Clearance 23.52 ml/min (50-250); Globulin 3.4 g/dL (2.2-4.2); Glucose 118 mg/dL (70-99); Potassium 3.5 mmol/L (3.3-5.1)
--- OUTSIDE RECORDS SUMMARY | 2025-03-21 21:17 | XMS RPT_ITS | CCD ---
Author Organization [facility] CliniSysc Care Team Providers Care Systems Trainer Name Role Phone DR MICHELET GOOD DO Primary Care Physician [phone] Florentino JOSE, Dr. Goncalves Primary Care Provider Dr. Michelet Good DO Attending Provider FLORENTINO JOSE, DR MICHELET Parker Primary Care Wesab walter GORE MD, DR FLORES Attending Wesab walter GOOD DO, DR MICHELET Parker Attending Lennie Rod DO, DR MICHELET Parker Primary Care Lennie Rod DO, Dr. Goncalves Referring Provider Dr. Domenico Garcia DO Attending Provider [phone] Dr. Domenico Garcia DO Referring Provider Michelet Good Primary Care Provider Dr. Kenrick Ott DO Emergency Provider Zion JOSE, Dr. Goncalves Admit Provider Dr. Michelet Donovan DO Attending Provider [phone] Brenda MCGOVERN, Dr. Mcdonald Other Provider Zion JOSE, Dr. Goncalves Other Provider Cathleen BALBUENA-CNanette Attending Provider Dr. Ed Parada DO Emergency Provider Dr. Michelet Good DO Primary Care Physician [phone] Dr. Michelet Good DO Attending Physician Dr. Domenico Garcia DO Attending Physician [phone] Kenrick Emergency Department Physi pippa Zion JOSE, Dr. Goncalves Admitting Physician [place] JOSE, Dr. Goncalves Attending Physician Brenda MCGOVERN, Dr. Mcdonald Nurse Practitioner Zion JOSE, Dr. Goncalves Nurse Practitioner Nanette Basurto Attending Physician [facility] DO, Dr. Ward Attending Physician [facility] DO, [facility] Ruben MCGOVERN, Dr. Senior Attending Physician Ruben MCGOVERN, Dr. Senior Referring Provider RAFAEL JOSHUA Attending Unavailable FLORENTINO, MICHELET Primary Care Unavailable FREDDY CONTRERAS Attending Unavailable DOMENICO GARCIA Referring Unavailable FLORENTINO, MICHELET Primary Care Unavailable FREDDY CONTRERAS Attending Unavailable MICHELET GOOD Primary Care Unavailable RIPONABDI Referring Unavailable FLORENTINO, MICHELET Primary Care Unavailable FREDDY CONTRERAS Admitting Unavailable FREDDY CONTRERAS Attending Unavailable FLORENTINO, MICHELET Primary Care Unavailable Florentino JOSE, Dr. Goncalves Primary Care Physician Florentino JOSE, Dr. Goncalves Attending Physician Florentino JOSE, Dr. Goncalves Referring Provider Behzad JOSE, Dr. Gomez Attending Physician Behzad JOSE, Dr. Gomez Referring Provider Namrata JOSE, Dr. Choudhary Emergency Department Physi pippa [place] JOSE, Dr. Goncalves Admitting Physician [place] JOSE, Dr. Goncalves Attending Physician Brenda MCGOVERN, Dr. Mcdonald Nurse Practitioner [place] JOSE, Dr. Goncalves Nurse Practitioner Nanette Basurto Attending Physician Karma JOSE, Dr. Ward Attending Physician Karma JOSE, Dr. Ward [facility] Rbuen MCGOVERN, Dr. Senior Attending Physician Ruben MCGOVERN, Dr. Senior Referring Provider [phone] Terry MCGOVERN, Dr. Baxter Attending Physician Brenda, Edwardprakas Consulting Unavailable Florentino, Michelet Primary Care Unavailable Tereletsky, Michelet Attending Unavailable Tereletsky, Michelet Admitting Unavailable Tereletsky, Michelet Consulting Unavailable Florentino, Michelet Primary Care Unavailable Sahil Setwart Attending Unavailable Florentino, Michelet Primary Care Unavailable Florentino, Michelet Attending Unavailable Brown, Domenico Referring Unavailable BrownDomenico Attending Unavailable Florentino, Michelet Primary Care Unavailable Florentino, Michelet Primary Care Unavailable Parrish Miranda Attending Unavailable Parrish Miranda Referring Unavailable Florentino, Michelet Primary Care Unavailable PraParrish ibarra Referring Unavailable PraParrish ibarra Attending Unavailable Florentino, Michelet Primary Care Unavailable Florentino, Michelet Referring Unavailable Leslie Ashley Attending Unavailable Florentino, Michelet Primary Care Unavailable Florentino, Michelet Referring Unavailable PraParrish ibarra Attending Unavailable Florentino, Michelet Primary Care Unavailable PraParrish ibarra Attending Unavailable Brown, Domenico Referring Unavailable BrownDomenico Attending Unavailable Florentino, Michelet Primary Care Unavailable Florentino, Michelet Primary Care Unavailable Florentino, Michelet Attending Unavailable Florention, Michelet Primary Care Unavailable Florentino, Michelet Attending Unavailable Brenda, Jayaprakas Consulting Unavailable Florentino, Michelet Primary Care Unavailable Tereletsky, Michelet Attending Unavailable Tereletsky, Michelet Admitting Unavailable Florentino, Michelet Primary Care Unavailable Florentino, Michelet Attending Unavailable Florentino, Michelet Referring Unavailable Florentino, Michelet Primary Care Unavailable Florentino, Michelet Attending Unavailable Florentino, Michelet Primary Care Unavailable Provider, Ed Physician Attending Unavailab le Michelet Good Attending Unavailable Florentino, Michelet Referring Unavailable Florentino, Michelet Primary Care Unavailable Florentino, Michelet Primary Care Unavailable Ed Parada Attending Unavailabl e Florentino, Michelet Referring Unavailable Nanette Connolly Attending Unavailable Florentino, Michelet Primary Care Unavailable Michelet Good Referring Unavailable Domenico Garcia Attending Unavailable Michelet Good Primary Care Unavailable Michelet Good Primary Care Unavailable Michelet Good Referring Unavailable Parrish Miranda Attending Unavailable Michelet Good Primary Care Unavailable Michelet Good Referring Unavailable Parrish Miranda Attending Unavailable Medications Current Medications Medication Drug Class(es) Dates Sig (Normalized) Sig (Original) allopurinol 300 mg oral tablet (2 sources) Xanthine Oxidase Inhibitor Start: 03-02-2025 ascorbic acid 500 mg chewable tablet (1 source) Vitamin C take 1 tablet by mouth once daily Ascorbic Acid (vitamin C) 500 MG tablet Take 500 mg by mouth daily. Active calcium ascorbate 500 mg oral tablet (7 sources) Start: 02-01-2025 cholecalciferol 0.125 mg oral capsule (12 sources) Vitamin D Start: 02-01-2025 dexamethasone 4 mg oral tablet (2 sources) Corticosteroid Start: 03-04-2025 End: 03-04-2025 Fish Oils (5 sources) take 1 capsule by mouth once daily fish oil ([place]-3) 500 MG capsule Take 500 mg by mouth daily. Active Magnesium (11 sources) Start: 03-02-2025 Start: 02-04-2025 End: 03-02-2025 take 1 tablet by mouth once daily Magnesium 250 mg tablet Discontinued 250 mg PO DAILY February 04, 2025 12:00am March 02, 2025 9:54am Start: 02-04-2025 take 1 tablet by maria e th once daily Start: 02-04-2025 take 1 tablet by maria e th once daily Magnesium 250 mg tablet Active 250 mg PO DAILY February 04, 2025 12:00am MAGNESIUM PO Bhavin e 250 mg by mouth. Active melatonin 3 mg oral tablet (15 sources) Start: 01-19-2025 End: 02-10-2025 metoprolol tartrate 50 mg or al tablet (11 sources) beta-Adrenergic Briana Start: 02-04-2025 Start: 02-02-2025 metoprolol suc cinate XL (Toprol-XL) 50 MG 24 hr tablet 02/02/2025 Active Mabie (Nk) (1 source) Start: 01-18-2025 Mabie (Nk) A ctive January 18, 2025 12:00am [place]-3 Fatty Acids-Fish Oil (Fish Oil) 300-500 mg capsule (6 sources) Start: 02-01-2025 Start: 02-01-2025 [place]-3 Fatty Acids-Fish Oil (Fish Oil) 300-500 mg capsule Active 1 NMA PO DAILY February 01, 2025 12:00am Start: 02-01-2025 [place]-3 Fatty Acids-Fish Oil (Fish Oil) 300-500 mg capsule Active NMA PO February 01, 2025 12:00am ondansetron 8 mg disintegrating oral tablet (1 source) Serotonin-3 Receptor Antagonist Start: 03-10-2025 oxyCODONE hydrochloride 5 mg oral tablet (4 sources) Opioid Agonist Start: 02-10-2025 End: 02-17-2025 take 1 tablet by mouth every six hours as needed for pain oxyCODONE (Roxicodone) 5 MG immediate release tablet Indications: Other diseases of mediastinum, not elsewhere classified Take 1 tablet (5 mg) by mouth every 6 hours as needed for severe pain (7-10) for up to 7 days. 21 tablet 02/10/2025 10:14 AM EDT 02/10/2025 02/17/2025 Active Start: 02-08-2025 End: 02-10-2025 take 1 tablet by mouth every four hours as needed for pain oxyCODONE (Roxicodone) immediate release tablet 5 mg patiromer 8400 mg powder for oral suspension (1 source) Potassium Binder take 8.4 g by mouth once daily Patiromer Sorbitex Calcium (Veltassa) 8.4 g pack Take 8.4 mg by mouth daily. Active predniSONE 50 mg oral tablet (2 sources) Start: 03-10-2025 take 60 mg by mouth once daily P REDNISONE PO Take 60 mg by mouth daily. Active selenium sulfide 10 mg/ml medicated shampoo (4 sources) Start: 02-16-2025 sennosides, halfway 8.6 mg oral capsule (5 sources) Start: 02-14-2025 zoledronic acid (3 sources) Bisphosphonate Zoledronic Acid (ZOMETA IV) Infuse into a venous catheter. Active (7 sources) Start: 03-02-2025 Start: 02-16-2025 End: 03-02-2025 Start: 02-16-2025 End: 03-02-2025 Start: 02-16-2025 End: 03-02-2025 Start: 02-04-2025 End: 03-02-2025 Start: 02-01-2025 Start: 12-27-2024 End: 01-18-2025 Completed/Discontinued Medications Medication Drug Class(es) Dates Sig (Normalized) Sig (Original) acetaminophen 500 mg oral tablet (4 sources) Start: 02-08-2025 End: 02-10-2025 take 1 dose by mouth three times daily, then take 4000 mg by mouth every twenty-four hours 1,000 mg, Oral, Every 8 hours scheduled (3 times per day), First dose on Fri02/08/25 at 1400, Phase II/On Unit, Maximum dose of acetaminophen is 4000 mg from all sources in 24 hours. Start: 02-08-2025 End: 02-08-2025 1,000 mg, Oral, Once, On Fri02/08/25 at 0615, For 1 dose, Preprocedure, Administer 60 minutes prior to surgery. Start: 02-08-2025 End: 02-08-2025 1,000 mg, Oral, Once, On Fri02/08/25 at 0615, For 1 dose, Preprocedure, Administer 60 minutes prior to surgery. acetylcysteine 500 mg oral capsule (4 sources) Antidote, Mucolytic, Antidote for Acetaminophen Overdose Start: 02-16-2025 End: 03-02-2025 albuterol 0.833 mg/ml / ipratropium bromide 0.167 mg/ml inhalation solution (4 sources) Anticholinergic, beta2-Adrenergic Agonist Start: 02-10-2025 End: 02-10-2025 3 mL, Nebulization, 2 times daily, First dose (after last modification) on Fri02/10/25 at 2000, Phase II/On Unit Start: 02-10-2025 End: 02-10-2025 3 mL, Nebulization, 2 times daily, First dose (after last modification) on Fri02/10/25 at 2000, Phase II/On Unit Start: 02-08-2025 End: 02-10-2025 3 mL, Nebulization, 3 times daily, First dose (after last modification) on Fri02/08/25 at 1615, Phase II/On Unit Bilberry Fruit 1,000 mg capsule (3 sources) Start: 02-16-2025 End: 03-02-2025 take 1 capsule by mouth once daily Bilberry Fruit 1,000 mg capsule Discontinued 1 g PO daily February 16, 2025 12:00am March 02, 2025 9:51am Start: 02-16-2025 take 1 capsule by mouth once d aily calcium chloride 0.0014 meq/ml / potassium chloride 0.004 meq/ml / sodium chloride 0.103 meq/ml / sodium lactate 0.028 meq/ml injectable solution (4 sources) Start: 02-08-2025 End: 02-08-2025 take 50 mL intravenously every hour 50 mL/hr, IntraVENous, Continuous, Starting on Fri02/08/25 at 1345, For 6 hours, Phase II/On Unit chlorhexidine gluconate 1.2 mg/ml mouthwash (4 sources) Start: 06-05-2024 End: 12-27-2024 Chlorhexidine Gluconate (Peridex) 0.12 % mouthwash (8 sources) Start: 06-05-2024 End: 12-27-2024 Chlorhexidine Gluconate (Peridex) 0.12 % mouthwash Discontinued 15 mL BUCCAL TWICE A DAY 300 0 June 05, 2024 1:00am December 27, 2024 10:39am Start: 06-05-2024 Chlorhexidine Gluconate (Peridex) 0.12 % mouthwash Active 15 mL BUCCAL TWICE A DAY 300 0 June 05, 2024 1:00am 1 ml HYDROmorphone hydrochloride 1 mg/ml cartridge (4 sources) Opioid Agonist Start: 02-08-2025 End: 02-10-2025 take 0.5 mg by mouth every three hours as needed for pain 0.5 mg, IntraVENous, Every 3 hours PRN, breakthrough pain, Starting on Fri02/08/25 at 1330, Phase II/On Unit, If oral and IV narcotics ordered, use oral first and only use IV if oral is ineffective or cannot take oral. Do Not give oral and IV within 1 hour of each other unless specifically ordered. Start: 02-08-2025 End: 02-08-2025 0.5 mg, IntraVENous, Every 5 min PRN, severe pain (7-10), Starting on Fri02/08/25 at 1220, For 4 doses, Recovery (only), Phase I and Phase II- Initial therapy for severe pain (7-10). Restricted to a 90 minute time frame starting when the patient can verbally state their pain score. If after 2 doses the pain score does not decrease by more than one point, then call the provider. If oral meds are utilized, do not return to initial therapy medications. mupirocin 0.02 mg/mg topical ointment (2 sources) RNA Synthetase Inhibitor Antibacterial Start: 02-09-2025 End: 02-10-2025 Nasal, 2 times daily, First dose on Fri02/09/25 at 0900, For 5 days 1 ml naloxone hydrochloride 0.4 mg/ml injection (2 sources) Opioid Antagonist Start: 02-08-2025 End: 02-10-2025 0.4 mg, IntraVENous, Every 5 min PRN, opioid reversal, respiratory depression, Starting on Fri02/08/25 at 1331, +++ For RR ondansetron ODT (Zofran-ODT) disintegrating tablet 4 mg (2 sources) Start: 02-08-2025 End: 02-10-2025 take 1 tablet by mouth every eight hours as needed for nausea and vomiting ondansetron ODT (Zofran-ODT) disintegrating tablet 4 mg Promethazine (2 sources) Phenothiazine Start: 02-08-2025 End: 02-10-2025 take 1 tablet by mouth every six hours as needed for nausea and vomiting promethazine (Phenergan) tablet 25 mg quercetin 500 mg oral capsule (4 sources) Start: 02-16-2025 End: 03-02-2025 Soybean, Fermented (Nattokinase) 50 mg capsule (3 sources) Start: 02-16-2025 End: 03-02-2025 take 1 capsule by mouth three times weekly Soybean, Fermented (Nattokinase) 50 mg capsule Discontinued 550 mg PO 3 TIMES A WEEK February 16, 2025 12:00am March 02, 2025 9:53am Start: 02-16-2025 take 1 capsule by mouth three times weekly Turmeric extract (3 sources) Start: 02-16-2025 End: 03-02-2025 take 1 capsule by mouth once daily Turmeric 400 mg capsule Discontinued 400 mg PO daily February 16, 2025 12:00am March 02, 2025 9:53am Start: 02-16-2025 take 1 capsule by mouth once d lalitha ubidecarenone 100 mg oral capsule (4 sources) Start: 02-16-2025 End: 03-02-2025 Vit A,C,N-T8-Lfck-Lut-Min-Gl ut 1000 unit-300mg -100 unit-2 mg tablet (10 sources) Start: 12-27-2024 End: 01-18-2025 Vit A,C,W-R9-Hitc-Lut-Min-Gl ut 1000 unit-300mg -100 unit-2 mg tablet Discontinued {tbl} PO December 27, 2024 12:00am January 18, 2025 5:22am Start: 12-27-2024 Vit A,C,E-B2-N vqo-Qjr-Dgi-Glut 1000 unit-300mg -100 unit-2 mg tablet Active {tbl} PO December 27, 2024 12:00am Problems Active Problems Problem Classification Problem Date Documented Da te Episodic/Chronic Acute and unspecified renal failure (20 sources) Acute renal failure syndrome; Translations: [Acute kidney failure, unspecified] Onset: 01-23-2025 01-18-2025 Episodic Cancer; other and unspecified primary (4 sources) Malignant neoplasm of thorax; 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] 02-16-2025 Chronic Chronic kidney disease (1 source) Chronic kidney disease; Translations: [Chronic kidney disease, stage 3b] Onset: 12-04-2024 Deficiency and other anemia (4 sources) Iron deficiency anemia; Translations: [Iron deficiency anemia, unspecified] 03-02-2025 Episodic Deficiency and other anemia (2 sources) Anemia, unspecified; Translations: [Anemia, unspecified] Onset: 12-28-2024 Episodic Diseases of white blood cells (2 sources) Leukemoid reaction; Translations: [Leukemoid reaction] 03-14-2025 Chronic Maintenance chemotherapy; radiotherapy (4 sources) H/O: malignant neoplasm; Translations: [Encounter for antineoplastic immunotherapy] 03-10-2025 Chronic Malaise and fatigue (1 source) Other fatigue; Translations: [Other fatigue] Onset: 12-28-2024 Episodic Non-Hodgkin`s lymphoma (14 sources) Diffuse non-Hodgkin's lymphoma, large cell (clinical); Translations: [Diffuse large B-cell lymphoma, unspecified site] Onset: 03-02-2025 Chronic Comment on above: 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 Pt wants to proceed. Nutritional deficiencies (2 sources) Iron deficiency; Translations: [Iron deficiency] 03-02-2025 Episodic Other diseases of kidney and ureters (1 source) Disorder of kidney and ureter, unspecified; Translations: [Disorder of kidney and ureter, unspecified] Onset: 12-28-2024 Episodic Other gastrointestinal disorders (5 sources) Constipation; Translations: [Constipation, unspecified] 02-14-2025 Episodic Other gastrointestinal disorders (1 source) Constipation, unspecified; Translations: [Constipation, unspecified] Onset: 02-18-2025 Episodic Other lower respiratory disease (20 sources) Lung mass; Translations: [Other nonspecific abnormal finding of lung field] Episodic Other lower respiratory disease (18 sources) Dyspnea; Translations: [Dyspnea, unspecified] 01-18-2025 Episodic Other lower respiratory disease (1 source) Other nonspecific abnormal finding of lung field; Translations: [Other nonspecific abnormal finding of lung field] Onset: 01-03-2025 Episodic Other nutritional; endocrine; and metabolic disorders (20 sources) Hypercalcemia; Translations: [Hypercalcemia] 01-18-2025 Chronic Comment on above: Due to DLBCL, Pt on Prednisone. Other nutritional; endocrine; and metabolic disorders (2 sources) Hypercalcemia; Translations: [Hypercalcemia] Onset: 01-26-2025 Chronic Other nutritional; endocrine; and metabolic disorders (1 [...] Onset: 12-28-2024 Episodic Other upper respiratory disease (2 sources) Mediastinal mass; Translations: [Other diseases of mediastinum, not elsewhere classified] 01-06-2025 Episodic Other upper respiratory disease (3 sources) Disorder of mediastinum; Translations: [Other diseases of mediastinum, not elsewhere classified] Onset: 02-24-2025 02-08-2025 Episodic Other upper respiratory disease (1 source) Other diseases of mediastinum, not elsewhere classified; Translations: [Other diseases of mediastinum, not elsewhere classified] Onset: 02-24-2025 Episodic Pleurisy; pneumothorax; pulmonary collapse (20 sources) Pleural effusion; Translations: [Pleural effusion, not elsewhere classified] Onset: 02-24-2025 12-27-2024 Episodic Retinal detachments; defects; vascular occlusion; and retinopathy (11 sources) Degenerative disorder of macula ; Translations: [Unspecified macular degeneration] 12-27-2024 Chronic Syncope (1 source) Syncope and collapse; Translations: [Syncope and collapse] Onset: 07-23-2024 Episodic Unclassified (17 sources) R91.8 - Other nonspecific abnormal finding of lung field Unclassified (4 sources) Follow up with their office as directed, by Friday of next week, call their office to schedule an appointment Unclassified (7 sources) In 2 weeks Unclassified (1 source) 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, intrapelvic lymph nodes Past or Other Problems Problem Classification Problem Date Documented Da te Episodic/Chronic Genitourinary symptoms and ill-defined conditions (1 source) Proteinuria, unspecified; Translations: [Proteinuria, unspecified] Onset: 12-04-2024 Episodic Other eye disorders (1 source) Other specified disorders of eye and adnexa; Translations: [Other specified disorders of eye and adnexa] Onset: 12-09-2024 Episodic Other hematologic conditions (1 source) Abnormality of globulin; Translations: [Abnormality of globulin] Onset: 12-04-2024 Episodic Other upper respiratory infections (20 sources) Viral pharyngitis; Translations: [Acute pharyngitis due to other specified organisms] Onset: 06-05-2024 06-05-2024 Episodic Results Test Name Value Interpretation Reference Range Facility CBC W/Diff, Automatedon 10- Absolute Neut Normal 2.0-7.7 [facility] Comment on above: Order Comment: The r eference range and other method performance specifications have not been established for this body fluid. The test must be integrated into the clinical context for interpretation. BODY FLUID BLEURAL EFFUSION LT THORA Result Comment: PT D ISCHARGED Performed By: #### M 100.2900, M100.4001, L001.0705, L504.0250, L200.0200, L350.1000, M100.2000, L503.0300 #### [facility] [address] [place], [address] HCT Normal 40-54 [facility] Comment on above: Order Comment: The r eference range and other method performance specifications have not been established for this body fluid. The test must be integrated into the clinical context for interpretation. BODY FLUID BLEURAL EFFUSION LT THORA Result Comment: PT D ISCHARGED Performed By: #### M 100.2900, M100.4001, L001.0705, L504.0250, L200.0200, L350.1000, M100.2000, L503.0300 #### [facility] [address] [place], [address] HGB Normal 13.0-16.5 [facility] Comment on above: Order Comment: The r eference range and other method performance specifications have not been established for this body fluid. The test must be integrated into the clinical context for interpretation. BODY FLUID BLEURAL EFFUSION LT THORA Result Comment: PT D ISCHARGED Performed By: #### M 100.2900, M100.4001, L001.0705, L504.0250, L200.0200, L350.1000, M100.2000, L503.0300 #### [facility] [address] [place], [address] MCH Normal 27.0-32.0 [facility] Comment on above: Order Comment: The r eference range and other method performance specifications have not been established for this body fluid. The test must be integrated into the clinical context for interpretation. BODY FLUID BLEURAL EFFUSION LT THORA Result Comment: PT D ISCHARGED Performed By: #### M 100.2900, M100.4001, L001.0705, L504.0250, L200.0200, L350.1000, M100.2000, L503.0300 #### [facility] [address] [place], [address] MCHC Normal 32-36 [facility] Comment on above: Order Comment: The r eference range and other method performance specifications have not been established for this body fluid. The test must be integrated into the clinical context for interpretation. BODY FLUID BLEURAL EFFUSION LT THORA Result Comment: PT D ISCHARGED Performed By: #### M 100.2900, M100.4001, L001.0705, L504.0250, L200.0200, L350.1000, M100.2000, L503.0300 #### [facility] [address] [place], [address] MCV Normal 80-94 [facility] Comment on above: Order Comment: The r eference range and other method performance specifications have not been established for this body fluid. The test must be integrated into the clinical context for interpretation. BODY FLUID BLEURAL EFFUSION LT THORA Result Comment: PT D ISCHARGED Performed By: #### M 100.2900, M100.4001, L001.0705, L504.0250, L200.0200, L350.1000, M100.2000, L503.0300 #### [facility] [address] [place], [address] NEUT% Normal 47-70 [facility] Comment on above: Order Comment: The r eference range and other method performance specifications have not been established for this body fluid. The test must be integrated into the clinical context for interpretation. BODY FLUID BLEURAL EFFUSION LT THORA Result Comment: PT D ISCHARGED Performed By: #### M 100.2900, M100.4001, L001.0705, L504.0250, L200.0200, L350.1000, M100.2000, L503.0300 #### [facility] [address] [place], [address] PLT Normal 150-450 [facility] Comment on above: Order Comment: The r eference range and other method performance specifications have not been established for this body fluid. The test must be integrated into the clinical context for interpretation. BODY FLUID BLEURAL EFFUSION LT THORA Result Comment: PT D ISCHARGED Performed By: #### M 100.2900, M100.4001, L001.0705, L504.0250, L200.0200, L350.1000, M100.2000, L503.0300 #### [facility] [address] [place], [address] RBC Normal 4.6-6.2 [facility] Comment on above: Order Comment: The r eference range and other method performance specifications have not been established for this body fluid. The test must be integrated into the clinical context for interpretation. BODY FLUID BLEURAL EFFUSION LT THORA Result Comment: PT D ISCHARGED Performed By: #### M 100.2900, M100.4001, L001.0705, L504.0250, L200.0200, L350.1000, M100.2000, L503.0300 #### [facility] [address] [place], [address] RDW CV Normal 11.6-14.6 [facility] Comment on above: Order Comment: The r eference range and other method performance specifications have not been established for this body fluid. The test must be integrated into the clinical context for interpretation. BODY FLUID BLEURAL EFFUSION LT THORA Result Comment: PT D ISCHARGED Performed By: #### M 100.2900, M100.4001, L001.0705, L504.0250, L200.0200, L350.1000, M100.2000, L503.0300 #### [facility] [address] [place], [address] RDW SD Normal 35.1-43.9 [facility] Comment on above: Order Comment: The r eference range and other method performance specifications have not been established for this body fluid. The test must be integrated into the clinical context for interpretation. BODY FLUID BLEURAL EFFUSION LT THORA Result Comment: PT D ISCHARGED Performed By: #### M 100.2900, M100.4001, L001.0705, L504.0250, L200.0200, L350.1000, M100.2000, L503.0300 #### [facility] [address] [place], [address] WBC Normal 4.4-11.0 [facility] Comment on above: Order Comment: The r eference range and other method performance specifications have not been established for this body fluid. The test must be integrated into the clinical context for interpretation. BODY FLUID BLEURAL EFFUSION LT THORA Result Comment: PT D ISCHARGED Performed By: #### M 100.2900, M100.4001, L001.0705, L504.0250, L200.0200, L350.1000, M100.2000, L503.0300 #### [facility] [address] [place], [address] Comprehensive Metabolic Prof ilon 03-20-2025 ALB Normal 3.4-4.8 [facility] Comment on above: Result Comment: PT D ISCHARGED Performed By: #### M 100.2900, M100.4001, L001.0705, L504.0250, L200.0200, L350.1000, M100.2000, L503.0300 #### [facility] [address] [place], [address] ALK PHOS Normal 40-129 [facility] Comment on above: Result Comment: PT D ISCHARGED Performed By: #### M 100.2900, M100.4001, L001.0705, L504.0250, L200.0200, L350.1000, M100.2000, L503.0300 #### [facility] [address] [place], [address] ALT Normal <=46 [facility] Comment on above: Result Comment: PT D ISCHARGED Performed By: #### M 100.2900, M100.4001, L001.0705, L504.0250, L200.0200, L350.1000, M100.2000, L503.0300 #### [facility] [address] [place], [address] AST Normal <=37 [facility] Comment on above: Result Comment: PT D ISCHARGED Performed By: #### M 100.2900, M100.4001, L001.0705, L504.0250, L200.0200, L350.1000, M100.2000, L503.0300 #### [facility] [address] [place], [address] BUN Normal 4-19 [facility] Comment on above: Result Comment: PT D ISCHARGED Performed By: #### M 100.2900, M100.4001, L001.0705, L504.0250, L200.0200, L350.1000, M100.2000, L503.0300 #### [facility] [address] [place], [address] BUN/CRE Normal 10-20 [facility] Comment on above: Result Comment: PT D ISCHARGED Performed By: #### M 100.2900, M100.4001, L001.0705, L504.0250, L200.0200, L350.1000, M100.2000, L503.0300 #### [facility] [address] [place], [address] Calcium Normal 7.6-11.0 [facility] Comment on above: Result Comment: PT D ISCHARGED Performed By: #### M 100.2900, M100.4001, L001.0705, L504.0250, L200.0200, L350.1000, M100.2000, L503.0300 #### [facility] [address] [place], [address] CL Normal 98-108 [facility] Comment on above: Result Comment: PT D ISCHARGED Performed By: #### M 100.2900, M100.4001, L001.0705, L504.0250, L200.0200, L350.1000, M100.2000, L503.0300 #### [facility] [address] [place], [address] CO2 Normal 21.0-32.0 [facility] Comment on above: Result Comment: PT D ISCHARGED Performed By: #### M 100.2900, M100.4001, L001.0705, L504.0250, L200.0200, L350.1000, M100.2000, L503.0300 #### [facility] [address] [place], [address] CREAT,SERUM Normal 0.70-1.20 [facility] Comment on above: Result Comment: PT D ISCHARGED Performed By: #### M 100.2900, M100.4001, L001.0705, L504.0250, L200.0200, L350.1000, M100.2000, L503.0300 #### [facility] [address] [place], [address] eGFR Normal >60 [facility] Comment on above: Result Comment: PT D ISCHARGED Performed By: #### M 100.2900, M100.4001, L001.0705, L504.0250, L200.0200, L350.1000, M100.2000, L503.0300 #### [facility] [address] [place], [address] GAP Normal 5-15 [facility] Comment on above: Result Comment: PT D ISCHARGED Performed By: #### M 100.2900, M100.4001, L001.0705, L504.0250, L200.0200, L350.1000, M100.2000, L503.0300 #### [facility] [address] [place], [address] GLU Normal 70-99 [facility] Comment on above: Result Comment: PT D ISCHARGED Performed By: #### M 100.2900, M100.4001, L001.0705, L504.0250, L200.0200, L350.1000, M100.2000, L503.0300 #### [facility] [address] [place], [address] Potassium Normal 3.3-5.1 [facility] Comment on above: Result Comment: PT D ISCHARGED Performed By: #### M 100.2900, M100.4001, L001.0705, L504.0250, L200.0200, L350.1000, M100.2000, L503.0300 #### [facility] [address] [place], [address] T BILI Normal 0.00-1.30 [facility] Comment on above: Result Comment: PT D ISCHARGED Performed By: #### M 100.2900, M100.4001, L001.0705, L504.0250, L200.0200, L350.1000, M100.2000, L503.0300 #### [facility] [address] [place], [address] T PROT Normal 5.9-8.4 [facility] Comment on above: Result Comment: PT D ISCHARGED Performed By: #### M 100.2900, M100.4001, L001.0705, L504.0250, L200.0200, L350.1000, M100.2000, L503.0300 #### [facility] [address] [place], [address] Comprehensive Metabolic Profil Normal 133-145 [facility] Comment on above: Result Comment: PT D ISCHARGED Performed By: #### M 100.2900, M100.4001, L001.0705, L504.0250, L200.0200, L350.1000, M100.2000, L503.0300 #### [facility] [address] [place], [address] Prothrombin Time w/INRon INR Normal [facility] Comment on above: Result Comment: PT D ISCHARGED Performed By: #### M 100.2900, M100.4001, L001.0705, L504.0250, L200.0200, L350.1000, M100.2000, L503.0300 #### [facility] [address] [place], [address] PROTIME Normal 11.7-14.9 [facility] Comment on above: Result Comment: PT D ISCHARGED Performed By: #### M 100.2900, M100.4001, L001.0705, L504.0250, L200.0200, L350.1000, M100.2000, L503.0300 #### [facility] [address] [place], [address] Comprehensive Metabolic Prof ilon 03-17-2025 Albumin [Mass/Vol] 3.3 g/dL Low 3.4-4.8 [facility] Comment on above: Performed By: #### L 3130.0010, L506.1001, L509.1000, L3300.0960 #### [facility] [address] [place], [address] Albumin/Globulin [Mass ratio] 1.2 {ratio} Normal 0.9-2.4 [facility] Comment on above: Performed By: #### L 3130.0010, L506.1001, L509.1000, L3300.0960 #### [facility] [address] [place], [address] ALK PHOS 163 U/L High 40-129 [facility] Comment on above: Performed By: #### L 3130.0010, L506.1001, L509.1000, L3300.0960 #### [facility] [address] [place], [address] ALT [Catalytic activity/Vol] 24 U/L Normal <=46 [facility] Comment on above: Performed By: #### L 3130.0010, L506.1001, L509.1000, L3300.0960 #### [facility] [address] [place], [address] AST [Catalytic activity/Vol] 15 U/L Normal <=37 [facility] Comment on above: Performed By: #### L 3130.0010, L506.1001, L509.1000, L3300.0960 #### [facility] [address] [place], [address] Bilirubin [Mass/Vol] 0.25 mg/dL Normal 0.00-1.30 [facility] Comment on above: Performed By: #### L 3130.0010, L506.1001, L509.1000, L3300.0960 #### [facility] [address] [place], [address] BUN/CRE 26.0 RATIO High 10-20 [facility] Comment on above: Performed By: #### L 3130.0010, L506.1001, L509.1000, L3300.0960 #### [facility] [address] [place], [address] Calcium [Mass/Vol] 11.5 mg/dL High 7.6-11.0 [facility] Comment on above: Performed By: #### L 3130.0010, L506.1001, L509.1000, L3300.0960 #### [facility] [address] [place], [address] Chloride [Moles/Vol] 99 mmol/L Normal 98-108 [facility] Comment on above: Performed By: #### L 3130.0010, L506.1001, L509.1000, L3300.0960 #### [facility] [address] [place], [address] CO2 [Moles/Vol] 27.4 mmol/L Normal 21.0-32.0 [facility] Comment on above: Performed By: #### L 3130.0010, L506.1001, L509.1000, L3300.0960 #### [facility] [address] [place], [address] Creatinine [Mass/Vol] 1.62 mg/dL High 0.70-1.20 [facility] Comment on above: Performed By: #### L 3130.0010, L506.1001, L509.1000, L3300.0960 #### [facility] [address] [place], [address] ECRCL 30.62 ml/min Low 50-250 [facility] Comment on above: Performed By: #### L 3130.0010, L506.1001, L509.1000, L3300.0960 #### [facility] [address] [place], [address] GAP 10 Normal 5-15 [facility] Comment on above: Performed By: #### L 3130.0010, L506.1001, L509.1000, L3300.0960 #### [facility] [address] [place], [address] GFR/1.73 sq M.predicted among non-blacks MDRD (S/P/Bld) [Vol rate/Area] 42 mL/min/{1.73_m2} Low >60 [facility] Comment on above: Result Comment: mL/m in/1.73m2 CKD-EPI Creatinine Equation (2020) Performed By: #### L 3130.0010, L506.1001, L509.1000, L3300.0960 #### [facility] [address] [place], [address] Globulin (S) [Mass/Vol] 2.8 g/dL Normal 2.2-4.2 [facility] Comment on above: Performed By: #### L 3130.0010, L506.1001, L509.1000, L3300.0960 #### [facility] [address] [place], [address] Glucose [Mass/Vol] 120 mg/dL High 70-99 [facility] Comment on above: Performed By: #### L 3130.0010, L506.1001, L509.1000, L3300.0960 #### [facility] [address] [place], [address] Potassium [Moles/Vol] 4.2 mmol/L Normal 3.3-5.1 [facility] Comment on above: Performed By: #### L 3130.0010, L506.1001, L509.1000, L3300.0960 #### [facility] [address] [place], [address] Sodium [Moles/Vol] 137 mmol/L Normal 133-145 [facility] Comment on above: Performed By: #### L 3130.0010, L506.1001, L509.1000, L3300.0960 #### [facility] [address] [place], [address] T PROT 6.1 g/dL Normal 5.9-8.4 [facility] Comment on above: Performed By: #### L 3130.0010, L506.1001, L509.1000, L3300.0960 #### [facility] [address] [place], [address] Urea nitrogen [Mass/Vol] 42 mg/dL High 4-19 [facility] Comment on above: Performed By: #### L 3130.0010, L506.1001, L509.1000, L3300.0960 #### [facility] [address], [address] Copper, Serum or Plasmaon COPPER, SERUM 112 ug/dL Normal 69-132 [facility] Comment on above: Order Comment: Test( s) 363863-Rirrkj, Serum or Plasmawas developed and its performance characteristicsdetermined by [employer]. It has not been cleared or approvedby the Food and Drug Administration. Result Comment: Dete ction Limit = 5 Performed By: #### L 3130.0010, L506.1001, L509.1000, L3300.0960 #### [facility] [address] [facility] [place], [place], [id number] (039) Zinc, Plasma or Serumon 03-02 ZINC,PLASMA/SER 78 ug/dL Normal 44-115 [facility] Comment on above: Order Comment: Test( s) [id number]-Yufisu, Serum or Plasmawas developed and its performance characteristicsdetermined by [employer]. It has not been cleared or approvedby the Food and Drug Administration. Result Comment: Dete ction Limit = 5 Performed at: [address] [id number] Section Maintainer: Tahir Malave MD, Phone: [phone] Performed By: #### L 3130.0010, L506.1001, L509.1000, L3300.0960 #### [facility] [address] [facility] [place], [place], [address] Absolute lymphocyte countOrd ered By: Ondina Youngblood on 03-14-2025 Lymphocytes Auto (Unsp spec) [#/Vol] 1.03 10*3/uL 0.83-4.51 [facility] Anion gap in Serum or Plasma Ordered By: Ondina Youngblood on 03-14-2025 Anion gap [Moles/Vol] 11 mmol/L - [facility] BUN/creatinine ratioOrdered By: Ondina Youngblood on 03-14-2025 Urea nitrogen/Creatinine [Mass ratio] 32.0 mg/mg High 10-20 [facility] Bilirubin, totalOrdered By: Ondina Youngblood on 03-14-2025 Bilirubin [Mass/Vol] 0.44 mg/dL 0.00-1.30 [facility] Blood band neutrophil count as percentage of total leukocytesOrdered By: Ondina ClevelandFord on 03-14-2025 Band form neutrophils/100 WBC (Bld) 5 % 0-5 [facility] Blood lymphocytes/100 leukoc ytesOrdered By: [facility]-2025 Lymphocytes/100 WBC (Bld) 2 % Low 19-41 [facility] Blood monocytes/100 leukocyt esOrdered By: [facility] on 03-14-2025 Monocytes/100 WBC (Bld) 1 % 0-10 [facility] Blood segmented neutrophils/ 100 leukocytesOrdered By: [facility] on 03-14-2025 Segmented neutrophils/100 WBC (Bld) 92 % High 47-70 [facility] CBC W/Diff, Automatedon 03-02 PATH REV May foll Normal [facility] Comment on above: Performed By: #### L 3130.0010, L506.1001, L509.1000, L3300.0960 #### [facility] [address] [place], [address] Absolute Lymph 1.03 X10 3/uL Normal 0.83-4.51 [facility] Comment on above: Performed By: #### L 3130.0010, L506.1001, L509.1000, L3300.0960 #### [facility] [address] [place], [address] Absolute Neut 49.8 X10 3/uL High 2.0-7.7 [facility] Comment on above: Performed By: #### L 3130.0010, L506.1001, L509.1000, L3300.0960 #### [facility] [address] [place], [address] PLT EST ADEQUATE Normal ADEQ [facility] Comment on above: Performed By: #### L 3130.0010, L506.1001, L509.1000, L3300.0960 #### [facility] [address] [place], [address] RED CELL MORPH NORM C+C Normal NORM C C [facility] Comment on above: Performed By: #### L 3130.0010, L506.1001, L509.1000, L3300.0960 #### [facility] [address] [place], [address] BAND 5 Normal 0-5 [facility] Comment on above: Performed By: #### L 3130.0010, L506.1001, L509.1000, L3300.0960 #### [facility] [address] [place], [address] Lymphocytes (Bld) [#/Vol] 2 10*3/uL Low 19-41 [facility] Comment on above: Performed By: #### L 3130.0010, L506.1001, L509.1000, L3300.0960 #### [facility] [address] [place], [address] MONOCYTE 1 Normal 0-10 [facility] Comment on above: Performed By: #### L 3130.0010, L506.1001, L509.1000, L3300.0960 #### [facility] [address] [place], [address] SEGS 92 High 47-70 [facility] Comment on above: Performed By: #### L 3130.0010, L506.1001, L509.1000, L3300.0960 #### [facility] [address] [place], [address] TOTAL CELLS 100 Normal MANUAL DIFF [facility] Comment on above: Performed By: #### L 3130.0010, L506.1001, L509.1000, L3300.0960 #### [facility] [address] [place], [address] Carbon dioxide, total [Moles /volume] in Central venous bloodOrdered By: Ondina Youngblood on 03-14-2025 CO2 [Moles/Vol] 23.1 mmol/L 21.0-32.0 [facility] Chloride assayOrdered By: Augustine Youngblood on 03-14-2025 Chloride [Moles/Vol] 102 mmol/L 98-108 [facility] Comprehensive Metabolic Prof ilon 03-14-2025 Albumin [Mass/Vol] 3.3 g/dL Low 3.4-4.8 [facility] Comment on above: Performed By: #### L 3130.0010, L506.1001, L509.1000, L3300.0960 #### [facility] [address] [place], [address] Albumin/Globulin [Mass ratio] 1.1 {ratio} Normal 0.9-2.4 [facility] Comment on above: Performed By: #### L 3130.0010, L506.1001, L509.1000, L3300.0960 #### [facility] [address] [place], [address] ALK PHOS 158 U/L High 40-129 [facility] Comment on above: Performed By: #### L 3130.0010, L506.1001, L509.1000, L3300.0960 #### [facility] [address] [place], [address] ALT [Catalytic activity/Vol] 34 U/L Normal <=46 [facility] Comment on above: Performed By: #### L 3130.0010, L506.1001, L509.1000, L3300.0960 #### [facility] [address] [place], [address] AST [Catalytic activity/Vol] 19 U/L Normal <=37 [facility] Comment on above: Performed By: #### L 3130.0010, L506.1001, L509.1000, L3300.0960 #### [facility] [address] [place], [address] Bilirubin [Mass/Vol] 0.44 mg/dL Normal 0.00-1.30 [facility] Comment on above: Performed By: #### L 3130.0010, L506.1001, L509.1000, L3300.0960 #### [facility] [address] [place], [address] BUN/CRE 32.0 RATIO High 10-20 [facility] Comment on above: Performed By: #### L 3130.0010, L506.1001, L509.1000, L3300.0960 #### [facility] [address] [place], [address] Calcium [Mass/Vol] 12.1 mg/dL High 7.6-11.0 [facility] Comment on above: Performed By: #### L 3130.0010, L506.1001, L509.1000, L3300.0960 #### [facility] [address] [place], [address] Chloride [Moles/Vol] 102 mmol/L Normal 98-108 [facility] Comment on above: Performed By: #### L 3130.0010, L506.1001, L509.1000, L3300.0960 #### [facility] [address] [place], [address] CO2 [Moles/Vol] 23.1 mmol/L Normal 21.0-32.0 [facility] Comment on above: Performed By: #### L 3130.0010, L506.1001, L509.1000, L3300.0960 #### [facility] [address] [place], [address] Creatinine [Mass/Vol] 1.68 mg/dL High 0.70-1.20 [facility] Comment on above: Performed By: #### L 3130.0010, L506.1001, L509.1000, L3300.0960 #### [facility] [address] [place], [address] ECRCL 29.52 ml/min Low 50-250 [facility] Comment on above: Performed By: #### L 3130.0010, L506.1001, L509.1000, L3300.0960 #### [facility] [address] [place], [address] GAP 11 Normal 5-15 [facility] Comment on above: Performed By: #### L 3130.0010, L506.1001, L509.1000, L3300.0960 #### [facility] [address] [place], [address] GFR/1.73 sq M.predicted among non-blacks MDRD (S/P/Bld) [Vol rate/Area] 41 mL/min/{1.73_m2} Low >60 [facility] Comment on above: Result Comment: mL/m in/1.73m2 CKD-EPI Creatinine Equation (2020) Performed By: #### L 3130.0010, L506.1001, L509.1000, L3300.0960 #### [facility] [address] [place], [address] Globulin (S) [Mass/Vol] 3.0 g/dL Normal 2.2-4.2 [facility] Comment on above: Performed By: #### L 3130.0010, L506.1001, L509.1000, L3300.0960 #### [facility] [address] [place], [address] Glucose [Mass/Vol] 100 mg/dL High 70-99 [facility] Comment on above: Performed By: #### L 3130.0010, L506.1001, L509.1000, L3300.0960 #### [facility] [address] [place], [address] Potassium [Moles/Vol] 4.7 mmol/L Normal 3.3-5.1 [facility] Comment on above: Performed By: #### L 3130.0010, L506.1001, L509.1000, L3300.0960 #### [facility] [address] [place], [address] Sodium [Moles/Vol] 136 mmol/L Normal 133-145 [facility] Comment on above: Performed By: #### L 3130.0010, L506.1001, L509.1000, L3300.0960 #### [facility] [address] [place], [address] T PROT 6.3 g/dL Normal 5.9-8.4 [facility] Comment on above: Performed By: #### L 3130.0010, L506.1001, L509.1000, L3300.0960 #### [facility] [address] [place], [address] Urea nitrogen [Mass/Vol] 54 mg/dL High 4-19 [facility] Comment on above: Performed By: #### L 3130.0010, L506.1001, L509.1000, L3300.0960 #### [facility] [address] [place], [address] Erythrocyte distribution wid th ratioOrdered By: Ondina Youngblood on 03-14-2025 Erythrocyte distribution width (RBC) [Ratio] 16.2 % High 11.6-14.6 [facility] Erythrocyte distribution wid th standard deviationOrdered By: Ondina Youngblood on 03-14-2025 Erythrocyte distribution width (RBC) [Ratio] 53.7 fl High 35.1-43.9 [facility] Erythrocyte morphology asses smentOrdered By: Ondina Youngblood on 03-14-2025 RBC morphology finding Nom (Bld) NORM C+C NORMAL NORM C&C [facility] Glomerular filtration rate ( GFR) estimation/1.73 sq m using serum, plasma, or whole bOrdered By: Ondina Youngblood on 03-14-2025 GFR/1.73 sq M.predicted among non-blacks MDRD (S/P/Bld) [Vol rate/Area] 41 mL/min/{1.73_m2} Low >60 [facility] Hematocrit Auto (Bld) [Volum e fraction]Ordered By: Ondina Youngblood on 03-14-2025 Hematocrit (Bld) [Volume fraction] 28.7 % Low 40-54 [facility] Hemoglobin measurementOrdere d By: Ondina Youngblood on 03-14-2025 Hemoglobin (Bld) [Mass/Vol] 9.5 g/dL Low 13.0-16.5 [facility] LDHon 03-14-2025 LDH 201 U/L Normal 87-241 [facility] Comment on above: Order Comment: 1 Performed By: #### L 3130.0010, L506.1001, L509.1000, L3300.0960 #### [facility] [address] [facility] [place], [place], [id number] MCV (mean corpuscular volume ) determinationOrdered By: Ondina Youngblood on 03-14-2025 MCV (RBC) [Entitic vol] 91.4 fL 80-94 [facility] Magnesiumon 03-14-2025 Magnesium [Mass/Vol] 2.3 mg/dL High 1.5-2.2 [facility] Comment on above: Performed By: #### L 3130.0010, L506.1001, L509.1000, L3300.0960 #### [facility] [address] [place], [place], [id number] Magnesium measurement (mass/ volume)Ordered By: Parrish Miranda on 03-14-2025 Magnesium (Unsp spec) [Mass/Vol] 2.3 mg/dL High 1.5-2.2 [facility] Mean corpuscular hemoglobin (MCH) determinationOrdered By: Ondina Youngblood on 03-14-2025 MCH (RBC) [Entitic mass] 30.3 pg 27.0-32.0 [facility] No Panel InformationOrdered By: Ondina Youngblood on 03-14-2025 19 U/L <38 [facility] Oncology Visit Reporton 03-02 Oncology Visit Report [facility] [place] [address] OFFICE VISIT Date of Service: 03/14/25 0755 MR#: [id number] Acct: [id number] Name: JUJU CACERES Rep #: [id number] : 1945 From: Parrish Miranda MD Age/Sex: 79/M Location: [facility] [place] Status: Signed HPI Subjective Date of Service 03/14/25 Chief Complaint F/u for DLBCL and therapy. History of Present Illness 79-year-old man presented with weight loss. CT scan on 12/21/2024 done at [place] showed left-sided lung nodules and mediastinal mass with pleural effusion. 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 He was referred to cardiothoracic surgery at [facility], underwent thoracotomy with biopsy on 02/08/2025. 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 He was found to have hypercalcemia. PET/CT on 03/08/2025 showed extensive tumor involvement with hypermetabolic activity seen at the left pleura, numerous left rib thoracic vertebrae and sternum, bilateral mediastinum left greater than right, the left chest wall and right pelvis. Echocardiogram done on 03/03/2025 showed ejection fraction 65%. 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 He started Rituxan mini CHOP on 03/10/2025 and comes for follow up. He has tiredness, but doing his ADLs. 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, [place] pets and animals: No history of recent travel: No Smoking Status: Never smoker alcohol intake: never substance use type: does not use caffeine: No what type of physical activity do you participate in: walking seatbelt use: always Intake Vital Signs 03/10/25 09:30 03/14/25 07:55 Height 5 ft 6 in 5 ft 6 in Weight: 60.526 kg BMI 21.5 BP 126/80 H Blood Pressure Location Lt brachial Position Sitting Respiration 18 Pulse 103 H Pulse Source Monitor Temp 98.4 F Temperature Source Temporal Artery Pulse Oximetry (%) 100 Intake Is patient in pain?: No Allergies No Known Allergies Allergy (Verified 03/14/25 08:01) Medications ???Medication ???Instructions ???Recorded ???Confirmed ???Type melatonin 3 mg tablet 3 mg PO QHS PRN sleep 01/19/25 History ascorbate calcium (vitamin C) 500 500 mg PO QDAY 02/01/25 03/14/25 History mg tablet cholecalciferol (vitamin D3) 125 125 mcg PO QDAY 02/01/25 03/14/25 History mcg (5,000 unit) capsule omega-3 fatty acids-fish oil 300 1 cap PO DAILY 02/01/25 03/14/25 H istory mg-500 mg capsule (Fish Oil) metoprolol tartrate 50 mg tablet 50 mg PO DAILY 02/04/25 03/14/25 H istory sennosides 8.6 mg capsule (senna) 8.6 mg PO DAILY PRN constipation 5 02/14/25 03/14/25 Rx days #5 caps selenium sulfide 1 % shampoo 5 ml topical 2XW 02/16/25 03/14/25 History (Dandruff Shampoo (selenium sulfide)) allopurinol 300 mg tablet 300 mg PO QDAY #30 tabs 03/02/25 1 Rx magnesium 250 mg tablet 133 mg PO DAILY 03/02/25 03/14/25 History dexamethasone 4 mg tablet 8 mg (2 x 4 mg) PO QDAY #14 tabs 1 03/14/25 Rx ondansetron 8 mg disintegrating 8 mg PO Q12H PRN nausea and 03/14/25 Rx tablet vomiting #30 tabs Have you fallen in the past year?: No Central Venous Access Central Venous Access: No Exam Physical Exam Narrative PS 2 Const alert, oriented x3 and no apparent distress HEENT normocephalic, external ears normal and external nose normal Eyes PERRL, EOMs intact bilaterally, conjunctivae normal and no scleral icterus Neck no lymphadenopathy Lymph Lymphatic: no lymphadenopathy noted Chest Chest Narrative: +L thoracotomy scar Resp clear to auscultation bilaterally Cardio regular rate, regular rhythm, S1 normal heart sound and S2 normal heart sound GI soft to palpation, non-tender and non-distended; Negative for hepatosplenomegaly (more content not included)... Normal [facility] Phosphoruson 03-14-2025 Phosphate [Mass/Vol] 3.3 mg/dL Normal 2.7-4.5 [facility] Comment on above: Performed By: #### L 3130.0010, L506.1001, L509.1000, L3300.0960 #### [facility] [address] [place], [place], [address] Platelet countOrdered By: Ty ra Youngblood on 03-14-2025 Platelets (Bld) [#/Vol] 252 10*3/uL 150-450 [facility] Platelet estimateOrdered By: Ondina Youngblood on 03-14-2025 Platelets LM Ql (Bld) ADEQUATE ADEQ [facility] Potassium measurement (mass/ volume)Ordered By: Ondina Youngblood on 03-14-2025 Potassium (Unsp spec) [Mass/Vol] 4.7 mmol/L 3.3-5.1 [facility] RBC Auto (Bld) [#/Vol]Ordere d By: Ondina Youngblood on 03-14-2025 RBC (Bld) [#/Vol] 3.14 10*6/uL Low 4.6-6.2 [facility] Review by pathologistOrdered By: Ondina Youngblood on 03-14-2025 Pathologist review Ko (Unsp spec) [Interp] September [facility] Serum creatinine measurement (mass/volume)Ordered By: Ondina Youngblood on 03-14-2025 Creatinine [Mass/Vol] 1.68 mg/dL High 0.70-1.20 [facility] Serum globulin measurementOr dered By: Ondina Youngblood on 03-14-2025 Globulin (S) [Mass/Vol] 3.0 g/dL 2.2-4.2 [facility] Serum glucose measurement (m ass/volume)Ordered By: Ondina Youngblood on 03-14-2025 Glucose [Mass/Vol] 100 mg/dL High 70-99 [facility] Serum or plasma alanine keen otransferase (ALT) measurementOrdered By: Ondina Youngblood on 03-14-2025 ALT [Catalytic activity/Vol] 34 U/L <47 [facility] Serum or plasma albumin emma urement (mass/volume)Ordered By: Ondina Youngblood on 03-14-2025 Albumin [Mass/Vol] 3.3 g/dL Low 3.4-4.8 [facility] Serum or plasma albumin/glob ulin mass ratioOrdered By: Ondina Youngblood on 03-14-2025 Albumin/Globulin [Mass ratio] 1.1 {ratio} 0.9-2.4 [facility] Serum or plasma alkaline david sphatase measurementOrdered By: Ondina Youngblood on 03-14-2025 ALP [Catalytic activity/Vol] 158 U/L High 40-129 [facility] Serum or plasma calcium emma urement (mass/volume)Ordered By: Ondina Youngblood on 03-14-2025 Calcium [Mass/Vol] 12.1 mg/dL High 7.6-11.0 [facility] Serum or plasma urea nitroge n measurement (mass/volume)Ordered By: Ondina Youngblood on 03-14-2025 Urea nitrogen [Mass/Vol] 54 mg/dL High 4-19 [facility] Serum or plasma uric acid me asurement (mass/volume)Ordered By: Ondina Ford on 03-14-2025 Urate [Mass/Vol] 4.2 mg/dL 3.5-7.2 [facility] Sodium levelOrdered By: Ondina Ford on 03-14-2025 Sodium [Moles/Vol] 136 mmol/L 133-145 [facility] Total cell countOrdered By: Ondina Ford on 03-14-2025 Cells counted Molgen (Bld/Tiss) [#] 100 MANUAL DIFF [facility] Total proteinOrdered By: Shari elena ClevelandFord on 03-14-2025 Protein [Mass/Vol] 6.3 g/dL 5.9-8.4 [facility] Uric Acidon 03-14-2025 URIC 4.2 mg/dL Normal 3.5-7.2 [facility] Comment on above: Result Comment: The drugs N-Acetylcysteine and Metamizole may falsely depress this assay. Performed By: #### L 3130.0010, L506.1001, L509.1000, L3300.0960 #### [facility] [address] [place], [address] White blood cell (WBC) count Ordered By: Ondina Youngblood on 03-14-2025 WBC (Bld) [#/Vol] 51.3 10*3/uL Critically high 4.4-11.0 [facility] Facq-6-Xfccyyjbkpsgn, Son B-2 MICROGLOBUL 5.3 mg/L High 0.6-2.4 [facility] Comment on above: Result Comment: Siem [facility] Immulite 2000 Immunochemiluminometric assay (ICMA) Values obtained with different assay methods or kits cannot be used interchangeably. Results cannot be interpreted as absolute evidence of the presence or absence of malignant disease. Performed at: [address] [id number] Section Maintainer: Tahir Malave MD, Phone: [phone] Performed By: #### M 100.2900, M100.4001, L001.0705, L504.0250, L200.0200, L350.1000, M100.2000, L503.0300 #### [facility] [address] [place], [address] Hepatitis B/C Profile VIIIon 03-11-2025 COMMENT Comment Normal . [facility] Comment on above: Result Comment: Not infected with HCV unless early or acute infection is suspected (which may be delayed in an immunocompromised individual), or other evidence exists to indicate HCV infection. Performed at: [facility] [address] [id number] Section Maintainer: Torito Green PhD, Phone: [phone] Performed By: #### M 100.2900, M100.4001, L001.0705, L504.0250, L200.0200, L350.1000, M100.2000, L503.0300 #### [facility] [address] [place], [address] HEP B CORE,TOT Negative Normal Negative [facility] Comment on above: Performed By: #### M 100.2900, M100.4001, L001.0705, L504.0250, L200.0200, L350.1000, M100.2000, L503.0300 #### [facility] [address] [place], [address] Hep B Jay AB Non-Reactive Normal . [facility] Comment on above: Result Comment: Non Reactive: Not immune to HBV infection. Anti-HBs undetectable or less than 10 mIU/mL. Reactive: Evidence of HBV immunity. Anti-HBs levels greater than 10 mIU/mL. Performed By: #### M 100.2900, M100.4001, L001.0705, L504.0250, L200.0200, L350.1000, M100.2000, L503.0300 #### [facility] [address] [place], [place], [id number] (016) HEP B SURF AG Negative Normal Negative [facility] Comment on above: Performed By: #### M 100.2900, M100.4001, L001.0705, L504.0250, L200.0200, L350.1000, M100.2000, L503.0300 #### [facility] [address] [place], [place], [id number] (883) HEP C Antibody Non-Reactive Normal Non Reactive [facility] Comment on above: Performed By: #### M 100.2900, M100.4001, L001.0705, L504.0250, L200.0200, L350.1000, M100.2000, L503.0300 #### [facility] [address] [place], [address] HEPATITIS INTER Comment Normal . [facility] Comment on above: Result Comment: HBV Serology Interpretation Chart ---- Interpretation HBsAg anti-HBs anti-HBc anti-HBc IgM ---- Dejesus - Analyte present: + Analyte absent: - Test not indicated: TNI ---- Susceptible (never infected and no evidence - - - TNI of vaccination) ---- Immune due to natural resolved infection - + + TNI ---- Immune due to vaccination - + - TNI ---- Acute Infection + - + + ---- Chronic infection + - + - ---- Interpretation unclear* - - + +/- ---- *Multiple possibilities: resolved infection (most common); false- positive anti-HBc (susceptible); low-level chronic infection; resolving acute infection. Performed By: #### M 100.2900, M100.4001, L001.0705, L504.0250, L200.0200, L350.1000, M100.2000, L503.0300 #### [facility] [address] [place], [address] Automated lymphocyte count a s percentage of total leukocytesOrdered By: Ondina Ford on 03-10-2025 Lymphocytes/100 WBC Auto (Unsp spec) 2.6 % Low 19-41 [facility] Basophil percentageOrdered B y: Ondina Ford on 03-10-2025 Basophils/100 WBC (Bld) 0.1 % 0-1 [facility] CBC W/Diff, Automatedon 10-0 -2024 Absolute Lymph 0.55 X10 3/uL Low 0.83-4.51 [facility] Comment on above: Performed By: #### L 501.1400, L100.0100, L504.2610 ####[facility] [address] [place], [address] Absolute Neut 19.4 X10 3/uL High 2.0-7.7 [facility] Comment on above: Performed By: #### L 501.1400, L100.0100, L504.2610 ####[facility] [address] [place], [address] Basophils/100 WBC (Bld) 0.1 % Normal 0-1 [facility] Comment on above: Performed By: #### L 501.1400, L100.0100, L504.2610 ####[facility] [address] [place], [address] Eosinophils/100 WBC (Bld) 0.0 % Normal 0-5 [facility] Comment on above: Performed By: #### L 501.1400, L100.0100, L504.2610 ####[facility] [address] [place], [address] Erythrocyte distribution width (RBC) [Ratio] 15.1 % High 11.6-14.6 [facility] Comment on above: Performed By: #### L 501.1400, L100.0100, L504.2610 ####[facility] [address] [place], [address] Hematocrit (Bld) [Volume fraction] 29.6 % Low 40-54 [facility] Comment on above: Performed By: #### L 501.1400, L100.0100, L504.2610 ####[facility] [address] [place], [address] Hemoglobin (Bld) [Mass/Vol] 9.9 g/dL Low 13.0-16.5 [facility] Comment on above: Performed By: #### L 501.1400, L100.0100, L504.2610 ####[facility] [address] [place], [address] IG% 0.900 Normal 0.0-0.9 [facility] Comment on above: Result Comment: IG% - Immature Granulocytes (promyelocytes, myelocytes and metamyelocytes) > 1% indicates that a LEFT SHIFT is Present. Performed By: #### L 501.1400, L100.0100, L504.2610 ####[facility] [address] [place], [address] Lymphocytes/100 WBC (Bld) 2.6 % Low 19-41 [facility] Comment on above: Performed By: #### L 501.1400, L100.0100, L504.2610 ####[facility] [address] [place], [address] MCH (RBC) [Entitic mass] 29.8 pg Normal 27.0-32.0 [facility] Comment on above: Performed By: #### L 501.1400, L100.0100, L504.2610 ####[facility] [address] [place], [address] MCHC (RBC) [Mass/Vol] 33.4 g/dL Normal 32-36 [facility] Comment on above: Performed By: #### L 501.1400, L100.0100, L504.2610 ####[facility] [address] [place], [address] MCV (RBC) [Entitic vol] 89.2 fL Normal 80-94 [facility] Comment on above: Performed By: #### L 501.1400, L100.0100, L504.2610 ####[facility] [address] [place], [address] Monocytes/100 WBC (Bld) 4.7 % Normal 0-10 [facility] Comment on above: Performed By: #### L 501.1400, L100.0100, L504.2610 ####[facility] [address] [place], [address] Neutrophils/100 WBC (Bld) 91.7 % High 47-70 [facility] Comment on above: Performed By: #### L 501.1400, L100.0100, L504.2610 ####[facility] [address] [place], [address] Nucleated RBC (Bld) [#/Vol] 0 10*3/uL Normal 0-5 [facility] Comment on above: Performed By: #### L 501.1400, L100.0100, L504.2610 ####[facility] [address] [place], [address] Platelet mean volume (Bld) [Entitic vol] 10.7 fL Normal 6.2-12.0 [facility] Comment on above: Performed By: #### L 501.1400, L100.0100, L504.2610 ####[facility] [address] [place], [address] Platelets (Bld) [#/Vol] 418 10*3/uL Normal 150-450 [facility] Comment on above: Performed By: #### L 501.1400, L100.0100, L504.2610 ####[facility] [address] [place], [address] RBC (Bld) [#/Vol] 3.32 10*6/uL Low 4.6-6.2 [facility] Comment on above: Performed By: #### L 501.1400, L100.0100, L504.2610 ####[facility] [address] [place], [address] RDW SD 48.3 fl High 35.1-43.9 [facility] Comment on above: Performed By: #### L 501.1400, L100.0100, L504.2610 ####[facility] [address] [place], [address] WBC (Bld) [#/Vol] 21.2 10*3/uL High 4.4-11.0 [facility] Comment on above: Performed By: #### L 501.1400, L100.0100, L504.2610 ####[facility] [address] [place], [address] Absolute Neut Normal 2.0-7.7 [facility] Comment on above: Result Comment: DUPL ICATE ORDER Performed By: #### M 100.2900, M100.4001, L001.0705, L504.0250, L200.0200, L350.1000, M100.2000, L503.0300 #### [facility] [address] [place], [address] HCT Normal 40-54 [facility] Comment on above: Result Comment: DUPL ICATE ORDER Performed By: #### M 100.2900, M100.4001, L001.0705, L504.0250, L200.0200, L350.1000, M100.2000, L503.0300 #### [facility] [address] [place], [address] HGB Normal 13.0-16.5 [facility] Comment on above: Result Comment: DUPL ICATE ORDER Performed By: #### M 100.2900, M100.4001, L001.0705, L504.0250, L200.0200, L350.1000, M100.2000, L503.0300 #### [facility] [address] [place], [address] MCH Normal 27.0-32.0 [facility] Comment on above: Result Comment: DUPL ICATE ORDER Performed By: #### M 100.2900, M100.4001, L001.0705, L504.0250, L200.0200, L350.1000, M100.2000, L503.0300 #### [facility] [address] [place], [address] MCHC Normal 32-36 [facility] Comment on above: Result Comment: DUPL ICATE ORDER Performed By: #### M 100.2900, M100.4001, L001.0705, L504.0250, L200.0200, L350.1000, M100.2000, L503.0300 #### [facility] [address] [place], [address] MCV Normal 80-94 [facility] Comment on above: Result Comment: DUPL ICATE ORDER Performed By: #### M 100.2900, M100.4001, L001.0705, L504.0250, L200.0200, L350.1000, M100.2000, L503.0300 #### [facility] [address] [place], [address] NEUT% Normal 47-70 [facility] Comment on above: Result Comment: DUPL ICATE ORDER Performed By: #### M 100.2900, M100.4001, L001.0705, L504.0250, L200.0200, L350.1000, M100.2000, L503.0300 #### [facility] [address] [place], [address] PLT Normal 150-450 [facility] Comment on above: Result Comment: DUPL ICATE ORDER Performed By: #### M 100.2900, M100.4001, L001.0705, L504.0250, L200.0200, L350.1000, M100.2000, L503.0300 #### [facility] [address] [place], [address] RBC Normal 4.6-6.2 [facility] Comment on above: Result Comment: DUPL ICATE ORDER Performed By: #### M 100.2900, M100.4001, L001.0705, L504.0250, L200.0200, L350.1000, M100.2000, L503.0300 #### [facility] [address] [place], [address] RDW CV Normal 11.6-14.6 [facility] Comment on above: Result Comment: DUPL ICATE ORDER Performed By: #### M 100.2900, M100.4001, L001.0705, L504.0250, L200.0200, L350.1000, M100.2000, L503.0300 #### [facility] [address] [place], [address] RDW SD Normal 35.1-43.9 [facility] Comment on above: Result Comment: DUPL ICATE ORDER Performed By: #### M 100.2900, M100.4001, L001.0705, L504.0250, L200.0200, L350.1000, M100.2000, L503.0300 #### [facility] [address] [place], [address] WBC Normal 4.4-11.0 [facility] Comment on above: Result Comment: DUPL ICATE ORDER Performed By: #### M 100.2900, M100.4001, L001.0705, L504.0250, L200.0200, L350.1000, M100.2000, L503.0300 #### [facility] [address] [place], [address] Comprehensive Metabolic Prof ilon 03-10-2025 CO2 [Moles/Vol] 19.7 mmol/L Low 21.0-32.0 [facility] Comment on above: Performed By: #### M 100.2900, M100.4001, L001.0705, L504.0250, L200.0200, L350.1000, M100.2000, L503.0300 #### [facility] [address] [place], [address] ALB Normal 3.4-4.8 [facility] Comment on above: Result Comment: DUPL ICATE ORDER Performed By: #### M 100.2900, M100.4001, L001.0705, L504.0250, L200.0200, L350.1000, M100.2000, L503.0300 #### [facility] [address] [place], [address] ALK PHOS Normal 40-129 [facility] Comment on above: Result Comment: DUPL ICATE ORDER Performed By: #### M 100.2900, M100.4001, L001.0705, L504.0250, L200.0200, L350.1000, M100.2000, L503.0300 #### [facility] [address] [place], [address] ALT Normal <=46 [facility] Comment on above: Result Comment: DUPL ICATE ORDER Performed By: #### M 100.2900, M100.4001, L001.0705, L504.0250, L200.0200, L350.1000, M100.2000, L503.0300 #### [facility] [address] [place], [address] AST Normal <=37 [facility] Comment on above: Result Comment: DUPL ICATE ORDER Performed By: #### M 100.2900, M100.4001, L001.0705, L504.0250, L200.0200, L350.1000, M100.2000, L503.0300 #### [facility] [address] [place], [address] BUN Normal 4-19 [facility] Comment on above: Result Comment: DUPL ICATE ORDER Performed By: #### M 100.2900, M100.4001, L001.0705, L504.0250, L200.0200, L350.1000, M100.2000, L503.0300 #### [facility] [address] [place], [address] BUN/CRE Normal 10-20 [facility] Comment on above: Result Comment: DUPL ICATE ORDER Performed By: #### M 100.2900, M100.4001, L001.0705, L504.0250, L200.0200, L350.1000, M100.2000, L503.0300 #### [facility] [address] [place], [address] Calcium Normal 7.6-11.0 [facility] Comment on above: Result Comment: DUPL ICATE ORDER Performed By: #### M 100.2900, M100.4001, L001.0705, L504.0250, L200.0200, L350.1000, M100.2000, L503.0300 #### [facility] [address] [place], [address] CL Normal 98-108 [facility] Comment on above: Result Comment: DUPL ICATE ORDER Performed By: #### M 100.2900, M100.4001, L001.0705, L504.0250, L200.0200, L350.1000, M100.2000, L503.0300 #### [facility] [address] [place], [address] CO2 Normal 21.0-32.0 [facility] Comment on above: Result Comment: DUPL ICATE ORDER Performed By: #### M 100.2900, M100.4001, L001.0705, L504.0250, L200.0200, L350.1000, M100.2000, L503.0300 #### [facility] [address] [place], [address] CREAT,SERUM Normal 0.70-1.20 [facility] Comment on above: Result Comment: DUPL ICATE ORDER Performed By: #### M 100.2900, M100.4001, L001.0705, L504.0250, L200.0200, L350.1000, M100.2000, L503.0300 #### [facility] [address] [place], [address] eGFR Normal >60 [facility] Comment on above: Result Comment: DUPL ICATE ORDER Performed By: #### M 100.2900, M100.4001, L001.0705, L504.0250, L200.0200, L350.1000, M100.2000, L503.0300 #### [facility] [address] [place], [address] GAP Normal 5-15 [facility] Comment on above: Result Comment: DUPL ICATE ORDER Performed By: #### M 100.2900, M100.4001, L001.0705, L504.0250, L200.0200, L350.1000, M100.2000, L503.0300 #### [facility] [address] [place], [address] GLU Normal 70-99 [facility] Comment on above: Result Comment: DUPL ICATE ORDER Performed By: #### M 100.2900, M100.4001, L001.0705, L504.0250, L200.0200, L350.1000, M100.2000, L503.0300 #### [facility] [address] [place], [address] Potassium Normal 3.3-5.1 [facility] Comment on above: Result Comment: DUPL ICATE ORDER Performed By: #### M 100.2900, M100.4001, L001.0705, L504.0250, L200.0200, L350.1000, M100.2000, L503.0300 #### [facility] [address] [place], [address] T BILI Normal 0.00-1.30 [facility] Comment on above: Result Comment: DUPL ICATE ORDER Performed By: #### M 100.2900, M100.4001, L001.0705, L504.0250, L200.0200, L350.1000, M100.2000, L503.0300 #### [facility] [address] [place], [address] T PROT Normal 5.9-8.4 [facility] Comment on above: Result Comment: DUPL ICATE ORDER Performed By: #### M 100.2900, M100.4001, L001.0705, L504.0250, L200.0200, L350.1000, M100.2000, L503.0300 #### [facility] [address] [place], [address] Comprehensive Metabolic Profil Normal 133-145 [facility] Comment on above: Result Comment: DUPL ICATE ORDER Performed By: #### M 100.2900, M100.4001, L001.0705, L504.0250, L200.0200, L350.1000, M100.2000, L503.0300 #### [facility] [address] [place], [address] Eosinophil percentageOrdered By: Ondina Youngblood on 03-10-2025 Eosinophils/100 WBC (Bld) 0.0 % 0-5 [facility] HIVon 03-10-2025 HIV Non-Reactive Normal Nonreactive [facility] Comment on above: Result Comment: Non- Reactive Reactive Repeatedly reactive samples must be confirmed according to CDC recommended confirmatory algorithms. The subresults for either HIVAG or AHIV can be used as an aid in the selection of the confirmation algorithm for reactive samples. Send out specimens with Reactive results to [facility] for confirmation. Order the HIV antibody detection and differentiation: lc#[id number] Performed By: #### M 100.2900, M100.4001, L001.0705, L504.0250, L200.0200, L350.1000, M100.2000, L503.0300 #### [facility] [address] [place], [address] Immature granulocytes/100 WB C Auto (Bld)Ordered By: Ondina Youngblood on 03-10-2025 Immature granulocytes/100 WBC (Bld) 0.900 % 0.0-0.9 [facility] LDHon 03-10-2025 LDH 194 U/L Normal 87-241 [facility] Comment on above: Order Comment: 1 Performed By: #### L 501.1400, L100.0100, L504.2610 ####[facility] [address] [place], [address] Magnesiumon 03-10-2025 Magnesium [Mass/Vol] 2.3 mg/dL High 1.5-2.2 [facility] Comment on above: Performed By: #### M 100.2900, M100.4001, L001.0705, L504.0250, L200.0200, L350.1000, M100.2000, L503.0300 #### [facility] [address] [place], [address] Monocyte percentageOrdered B y: Ondina Youngblood on 03-10-2025 Monocytes/100 WBC (Bld) 4.7 % 0-10 [facility] No Panel InformationOrdered By: Parrish Miranda on 03-10-2025 Comment . [facility] Non-Reactive Nonreactive [facility] Oncology Visit Reporton 10- Oncology Visit Report [facility] [place] [address] OFFICE VISIT Date of Service: 03/10/25929 MR#: [id number] Acct: [id number] Name: JUJU CACERES Rep #: [id number] : 1945 From: Parrish Miranda MD Age/Sex: 79/M Location: [facility] Status: Signed HPI Subjective Date of Service 03/10/25 Chief Complaint F/u for DLBCL and therapy. History of Present Illness 79-year-old man presented with weight loss. CT scan on 12/21/2024 done at [place] showed left-sided lung nodules and mediastinal mass with pleural effusion. 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 He was referred to cardiothoracic surgery at [facility], underwent thoracotomy with biopsy on 02/08/2025. 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 He was found to have hypercalcemia. He had a PET/CT, Echocardiogram done and comes for follow up. He has tiredness, but doing his ADLs. 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, [place] pets and animals: No history of recent travel: No Smoking Status: Never smoker alcohol intake: never substance use type: does not use caffeine: No what type of physical activity do you participate in: walking seatbelt use: always Intake Vital Signs 03/02/25 10:02 03/03/25 13:29 03/10/25 09:30 Height 5 ft 6 in 5 ft 6 in 5 ft 6 in Weight: 58.173 kg BMI 20.7 BP 115/71 Blood Pressure Location Rt brachial Position Sitting Respiration 18 Pulse 89 Pulse Source Monitor Temp 98.2 F Temperature Source Temporal Artery Pulse Oximetry (%) 99 Oxygen Delivery Method room air Intake Is patient in pain?: Yes (left side from biopsy) Pain scale (1-10): 2 Allergies No Known Allergies Allergy (Verified 03/10/25 09:37) Medications ???Medication ???Instructions ???Recorded ???Confirmed ???Type melatonin 3 mg tablet 3 mg PO QHS PRN sleep 01/19/2502/24 History ascorbate calcium (vitamin C) 500 500 mg PO QDAY 02/01/25 03/10/25 History mg tablet cholecalciferol (vitamin D3) 125 125 mcg PO QDAY 02/01/25 03/10/25 History mcg (5,000 unit) capsule omega-3 fatty acids-fish oil 300 1 cap PO DAILY 02/01/25 03/10/25 H istory mg-500 mg capsule (Fish Oil) metoprolol tartrate 50 mg tablet 50 mg PO DAILY 02/04/25 03/10/25 H istory sennosides 8.6 mg capsule (senna) 8.6 mg PO DAILY PRN constipation 5 02/14/25 03/10/25 Rx days #5 caps selenium sulfide 1 % shampoo 5 ml topical 2XW 02/16/25 03/10/25 History (Dandruff Shampoo (selenium sulfide)) allopurinol 300 mg tablet 300 mg PO QDAY #30 tabs 03/02/25 1 Rx magnesium 250 mg tablet 133 mg PO DAILY 03/02/25 03/10/25 History dexamethasone 4 mg tablet 8 mg (2 x 4 mg) PO QDAY #14 tabs 1 03/10/25 Rx ondansetron 8 mg disintegrating 8 mg PO Q12H PRN nausea and 10/09/ 25 10/09/25 Rx tablet vomiting #30 tabs prednisone 50 mg tablet 100 mg (2 x 50 mg) PO QDAY 5 days 03/10/25 03/10/25 Rx #10 tabs Have you fallen in the past year?: No Central Venous Access Central Venous Access: No 03/08/2025 PET/cT reviewed. 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 Extensive involvement also of the left chest wall is seen, mostly abutting the ribs, but also extending into the adjacent intercostal muscles. Nearly all areas are contiguous. Other: Safl-qe-xnuhmktg sigmoid diverticulosis. Please note the low-dose CT scan was performed to facilitate PET image reconstruction and anatomic localization and does not replace a diagnostic CT. Any diagnostic CT requested and performed at the time of the PET will be reported separately. Electronically Signed By: Rodney Delgado (more content not included)... Normal [facility] Phosphoruson 03-10-2025 Phosphate [Mass/Vol] 4.1 mg/dL Normal 2.7-4.5 [facility] Comment on above: Performed By: #### M 100.2900, M100.4001, L001.0705, L504.0250, L200.0200, L350.1000, M100.2000, L503.0300 #### [facility] Laboratory [facility] [place], [address] Serum hepatitis B virus core antibody detectionOrdered By: Parrish Miranda on 03-10-2025 HBV core Ab Ql (S) Negative Negative [facility] Serum or plasma fssv-7-mgutp globulin measurement (mass/volume)Ordered By: Ondina Youngblood on 03-10-2025 Gjte-0-Fzasxhewruczo [Mass/Vol] 5.3 ug/mL High 0.6-2.4 [facility] Serum or plasma hepatitis B virus surface antigen detection by immunoassayOrdered By: Parrish Miranda on 03-10-2025 HBV surface Ag IA Ql Negative Negative [facility] Uric Acidon 03-10-2025 URIC 4.4 mg/dL Normal 3.5-7.2 [facility] Comment on above: Result Comment: The drugs N-Acetylcysteine and Metamizole may falsely depress this assay. Performed By: #### L 501.1400, L100.0100, L504.2610 ####[facility] [address] [place], [place], [address] PET/CT Tumor Base -Thigh Ini ton 03-08-2025 PET/CT Tumor Base -Thigh Init [facility] Imaging Services [address] [place], [place] [address] PET/CT Tumor Base -Thigh Init MR#: [id number] Acct: [id number] Name: JUJU CACERES Rep #: [id number] : 1945 M 79 From: Rodney Gavin PCP: Dr. Michelet Good, DO Status: REG RCR Study: PET/CT Tumor Base -Thigh Init Date of Exam: Exam# [id number] Ordering Dr: Parrish Miranda MD PROCEDURE: PET/CT TUMOR BASE -THIGH INIT 03/08/2025 REASON FOR EXAM: 79 y/o M with LYMPHOMA Diffuse large B-cell lymphoma. TECHNIQUE: Procedure Code: PETPTCTINIT Modality: PT Procedure: PET/CT TUMOR BASE -THIGH INIT Following the intravenous administration of radionucleotide, image acquisition on a dedicated PET/CT unit was performed at one hour post injection. A preliminary CT study encompassing the Skull base, neck, chest, abdomen, pelvis, and proximal thighs was performed for purposes of attenuation correction and anatomic localization. The proximal thighs were also included. The patient's blood glucose level was 86 mg/dL (allowable range: 50-180 mg/dL). RADIOPHARMACEUTICAL: 10.65 mCi 18F-FDG (Fluorodeoxyglucose F18) IV was injected into he patient. RADIATION DOSE SUMMARY: Effective Dose: Approximately 7 mSv for a standard whole-body PET scan Organ Doses: Varies by organ, with higher doses typically to the bladder, liver, and brain COMPARISON: COMPARISON FROM CT, PET OR OTHER PERTINENT EXAMS: Chest CT of 12/21/2024.. FINDINGS: Physiologic uptake: There may be expected metabolic uptake within the brain, tongue and floor of the mouth and larynx/vocal cords, heart, robbie (many normal individuals have hilar uptake in less than 3 nodes with mildly avid hilar nodes less than 2.7 SUV), liver and spleen, system, and GI tract and symmetric muscle uptake. FDG AVID AND NON-AVID LESIONS. Reported avid SUV values (g/mL*) are maximum SUV. NECK: There are no significant neck abnormalities. 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 Extensive involvement also of the left chest wall is seen, mostly abutting the ribs, but also extending into the adjacent intercostal muscles. Nearly all areas are contiguous. Axilla- There are no significant axillary abnormalities. Lung parenchyma- There are no clear areas of hypermetabolism within the lung parenchyma. Pleura- No pleural effusion or pneumothorax is seen. ABDOMEN: Mild aortic calcification is seen. Stomach- No significant abnormalities. Liver- No significant abnormalities. Spleen- No significant abnormalities. Pancrease- No significant abnormalities. Kidneys- No significant abnormalities. Bowel- Normal bowel activity. Spine- No significant abnormalities. PELVIS: Mild to moderate sigmoid diverticulosis. Bowel- Normal physiologic bowel activity is identified. Masses- There are no pelvic masses. BONES- Prominent degenerative changes of the spine are seen. 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 Extensive involvement also of the left chest wall is seen, mostly abutting the ribs, but also extending into the adjacent intercostal muscles. Nearly all areas are contiguous. Other: Gllv-pj-abqqrvau sigmoid diverticulosis. Please note the low-dose CT scan was performed to facilitate PET image reconstruction and anatomic localization and does not replace a diagnostic CT. Any diagnostic CT requested and performed at the time of the PET will be reported separately. Reading Location: [place] [address] CC: Dr. Parrish Miranda MD; Dr. Michelet Good DO Fire Sprinkler Inspector: Signed Normal [facility] Wbli-6-Spehogzsrprwx, Son B-2 MICROGLOBUL 7.0 mg/L High 0.6-2.4 [facility] Comment on above: Result Comment: [facility] Immulite 2000 Immunochemiluminometric assay (ICMA) Values obtained with different assay methods or kits cannot be used interchangeably. Results cannot be interpreted as absolute evidence of the presence or absence of malignant disease. Performed at: [address] [id number] Section Maintainer: Tahir Malave MD, Phone: [phone] Performed By: #### L 3130.0010, L506.1001, L509.1000, L3300.0960 #### [facility] Laboratory [address] [facility] [place], [address] Chest PA and Lateralon 03-03 Chest PA and Lateral [facility] Imaging Services [address] [place], [place] [address] Chest PA and Lateral MR#: [id number] Acct: [id number] Name: JUJU CACERES Rep #: [id number] : 1945 M 79 From: Mark Chakraborty MD PCP: Dr. Michelet Good DO Status: REG CLI Study: Chest PA and Lateral Date of Exam: 03/03/25 Exam# [id number] Ordering Dr: Parrish Miranda MD PROCEDURE: CHEST PA AND LATERAL 03/03/2025 REASON FOR EXAM: POSSIBLE PLEURAL EFFUSION TECHNIQUE: Procedure Code: RADCXR Modality: DX Procedure: CHEST PA AND LATERAL COMPARISON: Two-view chest, 01/18/2025. FINDINGS: The right lung is clear. Multifocal linear atelectasis of the left lung and there is a small pleural effusion, smaller than on the prior exam. The heart size is normal. The upper abdominal bowel gas pattern is normal. There are no significant bony abnormalities of the chest. RAD/Chest PA and Lateral IMPRESSION: Decreasing left pleural effusion. There is multifocal linear atelectasis in the left lung. Reading Location: [place] [address] CC: Dr. Parrish Miranda MD; Dr. Michelet Good DO Fire Sprinkler Inspector: Signed Normal [facility] Erythropoietinon 03-03-2025 ERYTHROPOIETIN 18.3 mIU/mL Normal 2.6-18.5 [facility] Comment on above: Result Comment: [facility] [employer] DxI 800 Immunoassay System Values obtained with different assay methods or kits cannot be used interchangeably. Results cannot be interpreted as absolute evidence of the presence or absence of malignant disease. Performed at: [facility] [id number] Section Maintainer: Torito Green PhD, Phone: [phone] Performed By: #### L 3130.0010, L506.1001, L509.1000, L3300.0960 #### [facility] Laboratory [address] [place], [address] ONC Echo Completeon 03-03-20 ONC Echo Complete [facility] [address] [place] [address] ONC Echo Complete 03/03/25 1046 MR#: [id number] Acct: [id number] Name: JUJU CACERES Rep #: [id number] : 1945 79 From: Sahil Stewart MD Attending Dr: Dr. Parrish Miranda MD Status: REG C LI Ordering Dr: Parrish Miranda MD Date: 03/03/25 Location: [facility] Sex: M C Admitted: Reason For Study Reason For Study: ANTINEOPLASTIC CHEMO Procedure This was a 2D Doppler, Color Flow transthoracic echocardiogram. The study was technically difficult. Patient scanned laying flat due to inability to lay on left side due to wounds from recent biopsy. Exam performed in department. Left Ventricle Normal LV size. Mild concentric left ventricular hypertrophy. The left ventricular ejection fraction is 65 %. Stage 1 diastolic dysfunction. Right Ventricle Normal right ventricle. Atria The left and right atria are normal. Mitral Valve Trivial mitral valve insufficiency. Tricuspid Valve Normal tricuspid valve. Aortic Valve Mild focal aortic valve calcification. Pulmonic Valve Severe focal pulmonic valve calcification. Trivial pulmonic valve insufficiency. Great Vessels Normal sized aortic root. Pericardium/Pleural No pericardial effusion. MMode/2D Measurements Calculations Ao root diam: 2.7 cm LA dimension(2D): 2.5 cm Time Measurements MV dec time: 0.20 sec Doppler Measurements Calculations MV E max arsenio: 49.6 cm/sec Lat Peak E' Arsenio: 6.8 cm/sec Med Peak E' Arsenio: 5.7 cm/sec MV A max arsenio: 58.1 cm/sec E/E' lat: 7.2 E/E' med: 8.6 MV E/A: 0.85 MV V2 max: 74.1 cm/sec Ao V2 max: 89.6 cm/sec MV max P.2 mmHg MV dec slope: 263.1 cm/sec2 Ao max P.2 mmHg MV V2 mean: 41.9 cm/sec Ao V2 mean: 63.6 cm/sec MV mean P.80 mmHg Ao mean P.9 mmHg MV V2 VTI: 17.9 cm Ao V2 VTI: 17.0 cm AV (velocity ratio): 0.77 LV V1 max: 68.6 cm/sec PA V2 max: 138.0 cm/sec LV V1 max P.9 mmHg PA V2 mean: 94.0 cm/sec LV V1 mean P.1 mmHg LV V1 mean: 48.5 cm/sec LV V1 VTI: 13.0 cm ECHO/ONC Echo Complete Interpretation Summary The left ventricular ejection fraction is 65 %. Stage 1 diastolic dysfunction. Mild focal aortic valve calcification. The study was technically difficult. ___ Ordering Physician: Parrish Miranda Referring Physician: Parrish Miranda Performed By: Christine Oropeza RCS 03/03/25 1255 Date Sahil Stewart MD CC: Dr. Parrish Miranda MD; Dr. Michelet Good DO Date Dictated: 03/03/25 1046 Date Transcribed: 03/03/251254 Fire Sprinkler Inspector: Signed Normal [facility] Absolute lymphocyte countOrd ered By: Parrish Miranda on 03-02-2025 Lymphocytes Auto (Unsp spec) [#/Vol] 0.47 10*3/uL Low 0.83-4.51 [facility] Absolute neutrophil countOrd ered By: Parrish Miranda on 03-02-2025 Neutrophils (Bld) [#/Vol] 14.5 10*3/uL High 2.0-7.7 [facility] Activated partial thrombopla stin time (aPTT) in platelet poor plasma by coagulation aOrdered By: Parrish Miranda on 03-02-2025 aPTT Coag (PPP) [Time] 30.7 s 24.1-36.2 [facility] Anion gap in Serum or Plasma Ordered By: Parrish Miranda on 03-02-2025 Anion gap [Moles/Vol] 17 mmol/L High 5-15 [facility] Automated lymphocyte count a s percentage of total leukocytesOrdered By: Parrish Miranda on 03-02-2025 Lymphocytes/100 WBC Auto (Unsp spec) 2.9 % Low 19-41 [facility] BUN/creatinine ratioOrdered By: Parrish Monroe on 03-02-2025 Urea nitrogen/Creatinine [Mass ratio] 32.0 mg/mg High 10-20 [facility] Basophil percentageOrdered B y: Parrish Miranda on 03-02-2025 Basophils/100 WBC (Bld) 0.1 % 0-1 [facility] Bilirubin, totalOrdered By: Parrish [facility] on 03-02-2025 Bilirubin [Mass/Vol] 0.31 mg/dL 0.00-1.30 [facility] CBC W/Diff, Automatedon - Absolute Lymph 0.47 X10 3/uL Low 0.83-4.51 [facility] Comment on above: Performed By: #### L 100.9950, L500.4050, L501.6710, L101.9900, L506.0200, L300.3900, L501.2300, L501.1400, L3890.5000, L503.6030, L501.5200, L504.2610, L100.0100, L3100.1350, L503.0106, L503.6550, L300.4310 ####[facility] [address] [place], [place], [id number] Absolute Neut 14.5 X10 3/uL High 2.0-7.7 [facility] Comment on above: Performed By: #### L 100.9950, L500.4050, L501.6710, L101.9900, L506.0200, L300.3900, L501.2300, L501.1400, L3890.5000, L503.6030, L501.5200, L504.2610, L100.0100, L3100.1350, L503.0106, L503.6550, L300.4310 ####[facility] [address] [place], [address] Basophils/100 WBC (Bld) 0.1 % Normal 0-1 [facility] Comment on above: Performed By: #### L 100.9950, L500.4050, L501.6710, L101.9900, L506.0200, L300.3900, L501.2300, L501.1400, L3890.5000, L503.6030, L501.5200, L504.2610, L100.0100, L3100.1350, L503.0106, L503.6550, L300.4310 ####[facility] [address] [place], [phone] Eosinophils/100 WBC (Bld) 0.4 % Normal 0-5 [facility] Comment on above: Performed By: #### L 100.9950, L500.4050, L501.6710, L101.9900, L506.0200, L300.3900, L501.2300, L501.1400, L3890.5000, L503.6030, L501.5200, L504.2610, L100.0100, L3100.1350, L503.0106, L503.6550, L300.4310 ####[facility] [address] [place], [address] Erythrocyte distribution width (RBC) [Ratio] 14.8 % High 11.6-14.6 [facility] Comment on above: Performed By: #### L 100.9950, L500.4050, L501.6710, L101.9900, L506.0200, L300.3900, L501.2300, L501.1400, L3890.5000, L503.6030, L501.5200, L504.2610, L100.0100, L3100.1350, L503.0106, L503.6550, L300.4310 ####[facility] [address] [place], [address] Hematocrit (Bld) [Volume fraction] 27.4 % Low 40-54 [facility] Comment on above: Performed By: #### L 100.9950, L500.4050, L501.6710, L101.9900, L506.0200, L300.3900, L501.2300, L501.1400, L3890.5000, L503.6030, L501.5200, L504.2610, L100.0100, L3100.1350, L503.0106, L503.6550, L300.4310 ####[facility] [address] [place], [address] Hemoglobin (Bld) [Mass/Vol] 9.0 g/dL Low 13.0-16.5 [facility] Comment on above: Performed By: #### L 100.9950, L500.4050, L501.6710, L101.9900, L506.0200, L300.3900, L501.2300, L501.1400, L3890.5000, L503.6030, L501.5200, L504.2610, L100.0100, L3100.1350, L503.0106, L503.6550, L300.4310 ####[facility] [address] [place], [address] IG% 0.600 Normal 0.0-0.9 [facility] Comment on above: Result Comment: IG% - Immature Granulocytes (promyelocytes, myelocytes and metamyelocytes) > 1% indicates that a LEFT SHIFT is Present. Performed By: #### L 100.9950, L500.4050, L501.6710, L101.9900, L506.0200, L300.3900, L501.2300, L501.1400, L3890.5000, L503.6030, L501.5200, L504.2610, L100.0100, L3100.1350, L503.0106, L503.6550, L300.4310 ####[facility] [address] [place], [place], [phone] Lymphocytes/100 WBC (Bld) 2.9 % Low 19-41 [facility] Comment on above: Performed By: #### L 100.9950, L500.4050, L501.6710, L101.9900, L506.0200, L300.3900, L501.2300, L501.1400, L3890.5000, L503.6030, L501.5200, L504.2610, L100.0100, L3100.1350, L503.0106, L503.6550, L300.4310 ####[facility] [address] [place], [place], [phone] MCH (RBC) [Entitic mass] 29.6 pg Normal 27.0-32.0 [facility] Comment on above: Performed By: #### L 100.9950, L500.4050, L501.6710, L101.9900, L506.0200, L300.3900, L501.2300, L501.1400, L3890.5000, L503.6030, L501.5200, L504.2610, L100.0100, L3100.1350, L503.0106, L503.6550, L300.4310 ####[facility] [address] [place], [place], [id number] MCHC (RBC) [Mass/Vol] 32.8 g/dL Normal 32-36 [facility] Comment on above: Performed By: #### L 100.9950, L500.4050, L501.6710, L101.9900, L506.0200, L300.3900, L501.2300, L501.1400, L3890.5000, L503.6030, L501.5200, L504.2610, L100.0100, L3100.1350, L503.0106, L503.6550, L300.4310 ####[facility] [address] [place], [place], [phone] MCV (RBC) [Entitic vol] 90.1 fL Normal 80-94 [facility] Comment on above: Performed By: #### L 100.9950, L500.4050, L501.6710, L101.9900, L506.0200, L300.3900, L501.2300, L501.1400, L3890.5000, L503.6030, L501.5200, L504.2610, L100.0100, L3100.1350, L503.0106, L503.6550, L300.4310 ####[facility] [address] [facility] [place], [place], [phone] Monocytes/100 WBC (Bld) 6.0 % Normal 0-10 [facility] Comment on above: Performed By: #### L 100.9950, L500.4050, L501.6710, L101.9900, L506.0200, L300.3900, L501.2300, L501.1400, L3890.5000, L503.6030, L501.5200, L504.2610, L100.0100, L3100.1350, L503.0106, L503.6550, L300.4310 ####[facility] [address] [facility] [address] [place], [place], [phone] Neutrophils/100 WBC (Bld) 90.0 % High 47-70 [facility] Comment on above: Performed By: #### L 100.9950, L500.4050, L501.6710, L101.9900, L506.0200, L300.3900, L501.2300, L501.1400, L3890.5000, L503.6030, L501.5200, L504.2610, L100.0100, L3100.1350, L503.0106, L503.6550, L300.4310 ####[facility] [address] [facility] [place], [address] Nucleated RBC (Bld) [#/Vol] 0 10*3/uL Normal 0-5 [facility] Comment on above: Performed By: #### L 100.9950, L500.4050, L501.6710, L101.9900, L506.0200, L300.3900, L501.2300, L501.1400, L3890.5000, L503.6030, L501.5200, L504.2610, L100.0100, L3100.1350, L503.0106, L503.6550, L300.4310 ####[facility] [address] [place], [address] Platelet mean volume (Bld) [Entitic vol] 10.2 fL Normal 6.2-12.0 [facility] Comment on above: Performed By: #### L 100.9950, L500.4050, L501.6710, L101.9900, L506.0200, L300.3900, L501.2300, L501.1400, L3890.5000, L503.6030, L501.5200, L504.2610, L100.0100, L3100.1350, L503.0106, L503.6550, L300.4310 ####[facility] [address] [place], [address] Platelets (Bld) [#/Vol] 557 10*3/uL High 150-450 [facility] Comment on above: Performed By: #### L 100.9950, L500.4050, L501.6710, L101.9900, L506.0200, L300.3900, L501.2300, L501.1400, L3890.5000, L503.6030, L501.5200, L504.2610, L100.0100, L3100.1350, L503.0106, L503.6550, L300.4310 ####[facility] [address] [place], [place], [phone] RBC (Bld) [#/Vol] 3.04 10*6/uL Low 4.6-6.2 [facility] Comment on above: Performed By: #### L 100.9950, L500.4050, L501.6710, L101.9900, L506.0200, L300.3900, L501.2300, L501.1400, L3890.5000, L503.6030, L501.5200, L504.2610, L100.0100, L3100.1350, L503.0106, L503.6550, L300.4310 ####[facility] [address] [place], [place], [phone] RDW SD 48.3 fl High 35.1-43.9 [facility] Comment on above: Performed By: #### L 100.9950, L500.4050, L501.6710, L101.9900, L506.0200, L300.3900, L501.2300, L501.1400, L3890.5000, L503.6030, L501.5200, L504.2610, L100.0100, L3100.1350, L503.0106, L503.6550, L300.4310 ####[facility] [address] [place], [place], [address] WBC (Bld) [#/Vol] 16.1 10*3/uL High 4.4-11.0 [facility] Comment on above: Performed By: #### L 100.9950, L500.4050, L501.6710, L101.9900, L506.0200, L300.3900, L501.2300, L501.1400, L3890.5000, L503.6030, L501.5200, L504.2610, L100.0100, L3100.1350, L503.0106, L503.6550, L300.4310 ####[facility] [address] [place], [address] CRPon 03-02-2025 C-REACTIVE PROT 114.00 mg/L High 0.0-3.0 [facility] Comment on above: Performed By: #### L 3130.0010, L506.1001, L509.1000, L3300.0960 #### [facility] Laboratory [address] [place], [address] Carbon dioxide, total [Moles /volume] in Central venous bloodOrdered By: Parrish Miranda on 03-02-2025 CO2 [Moles/Vol] 19.0 mmol/L Low 21.0-32.0 [facility] Chloride assayOrdered By: Allison Miranda on 03-02-2025 Chloride [Moles/Vol] 98 mmol/L 98-108 [facility] Comprehensive Metabolic Prof ilon 03-02-2025 Albumin [Mass/Vol] 3.6 g/dL Normal 3.4-4.8 [facility] Comment on above: Performed By: #### L 3130.0010, L506.1001, L509.1000, L3300.0960 #### [facility] Laboratory [address] [place], [address] Albumin/Globulin [Mass ratio] 1.0 {ratio} Normal 0.9-2.4 [facility] Comment on above: Performed By: #### L 3130.0010, L506.1001, L509.1000, L3300.0960 #### [facility] Laboratory [address] [place], [address] ALK PHOS 112 U/L Normal 40-129 [facility] Comment on above: Performed By: #### L 3130.0010, L506.1001, L509.1000, L3300.0960 #### [facility] Laboratory [address] [place], [address] ALT [Catalytic activity/Vol] 84 U/L High <=46 [facility] Comment on above: Performed By: #### L 3130.0010, L506.1001, L509.1000, L3300.0960 #### [facility] [address] [place], [address] AST [Catalytic activity/Vol] 30 U/L Normal <=37 [facility] Comment on above: Performed By: #### L 3130.0010, L506.1001, L509.1000, L3300.0960 #### [facility] [address] [place], [address] Bilirubin [Mass/Vol] 0.31 mg/dL Normal 0.00-1.30 [facility] Comment on above: Performed By: #### L 3130.0010, L506.1001, L509.1000, L3300.0960 #### [facility] [address] [place], [address] BUN/CRE 32.0 RATIO High 10-20 [facility] Comment on above: Performed By: #### L 3130.0010, L506.1001, L509.1000, L3300.0960 #### [facility] [address] [place], [address] Calcium [Mass/Vol] 13.9 mg/dL Invalid Interpretation Code 7.6-11.0 [facility] Comment on above: Result Comment: CALL ED 5 TIMES WITH NO ANSWER-LEFT VOICEMAIL @ 4371 03/02/2025 CRITICAL RESULT CALLED TO [facility] BY NATALIE HO. RESULTS READ BACK BY SAME. 1247 Performed By: #### L 3130.0010, L506.1001, L509.1000, L3300.0960 #### [facility] [address] [place], [address] Chloride [Moles/Vol] 98 mmol/L Normal 98-108 [facility] Comment on above: Performed By: #### L 3130.0010, L506.1001, L509.1000, L3300.0960 #### [facility] [address] [place], [address] CO2 [Moles/Vol] 19.0 mmol/L Low 21.0-32.0 [facility] Comment on above: Performed By: #### L 3130.0010, L506.1001, L509.1000, L3300.0960 #### [facility] [address] [place], [address] Creatinine [Mass/Vol] 1.97 mg/dL High 0.70-1.20 [facility] Comment on above: Performed By: #### L 3130.0010, L506.1001, L509.1000, L3300.0960 #### [facility] Laboratory [address] [place], [address] GAP 17 High 5-15 [facility] Comment on above: Performed By: #### L 3130.0010, L506.1001, L509.1000, L3300.0960 #### [facility] Laboratory [address] [place], [address] GFR/1.73 sq M.predicted among non-blacks MDRD (S/P/Bld) [Vol rate/Area] 34 mL/min/{1.73_m2} Low >60 [facility] Comment on above: Result Comment: mL/m in/1.73m2 CKD-EPI Creatinine Equation (2020) Performed By: #### L 3130.0010, L506.1001, L509.1000, L3300.0960 #### [facility] [address] [place], [address] Globulin (S) [Mass/Vol] 3.6 g/dL Normal 2.2-4.2 [facility] Comment on above: Performed By: #### L 3130.0010, L506.1001, L509.1000, L3300.0960 #### [facility] [address] [place], [address] Glucose [Mass/Vol] 107 mg/dL High 70-99 [facility] Comment on above: Performed By: #### L 3130.0010, L506.1001, L509.1000, L3300.0960 #### [facility] [address] [place], [address] Potassium [Moles/Vol] 4.1 mmol/L Normal 3.3-5.1 [facility] Comment on above: Performed By: #### L 3130.0010, L506.1001, L509.1000, L3300.0960 #### [facility] [address] [place], [address] Sodium [Moles/Vol] 134 mmol/L Normal 133-145 [facility] Comment on above: Performed By: #### L 3130.0010, L506.1001, L509.1000, L3300.0960 #### [facility] Laboratory [address] [place], [address] T PROT 7.2 g/dL Normal 5.9-8.4 [facility] Comment on above: Performed By: #### L 3130.0010, L506.1001, L509.1000, L3300.0960 #### [facility] [address] [place], [address] Urea nitrogen [Mass/Vol] 63 mg/dL High 4-19 [facility] Comment on above: Performed By: #### L 3130.0010, L506.1001, L509.1000, L3300.0960 #### [facility] [address] [place], [address] Eosinophil percentageOrdered By: Parrish Miranda on 03-02-2025 Eosinophils/100 WBC (Bld) 0.4 % 0-5 [facility] Erythrocyte Sed Rateon 03-02 SED RATE 61 mm/hr High 0-20 [facility] Comment on above: Performed By: #### L 100.9950, L500.4050, L501.6710, L101.9900, L506.0200, L300.3900, L501.2300, L501.1400, L3890.5000, L503.6030, L501.5200, L504.2610, L100.0100, L3100.1350, L503.0106, L503.6550, L300.4310 ####[facility] [address] [place], [address] Erythrocyte distribution wid th ratioOrdered By: Parrish Ruben on 03-02-2025 Erythrocyte distribution width (RBC) [Ratio] 14.8 % High 11.6-14.6 [facility] Erythrocyte distribution wid th standard deviationOrdered By: Parrish Ruben on 03-02-2025 Erythrocyte distribution width (RBC) [Ratio] 48.3 fl High 35.1-43.9 [facility] Erythrocyte sedimentation ra teOrdered By: Parrish Miranda on 03-02-2025 ESR (Bld) [Velocity] 61 mm/h High 0-20 [facility] Ferritinon 03-02-2025 Ferritin [Mass/Vol] 1522 ng/mL High 37-417 [facility] Comment on above: Performed By: #### L 3130.0010, L506.1001, L509.1000, L3300.0960 #### [facility] Laboratory [address] [place], [place], [address] Folate [Mass/volume] in Seru m or PlasmaOrdered By: Parrish Miranda on 03-02-2025 Folate [Mass/Vol] 5.81 ng/mL 4.60-34.80 [facility] Comment on above: Hemolysis, Results w ill be affected, Requires Recollection. Folates,Serum (Folic Acid)on 03-02-2025 FOLATES,SERUM 5.81 ng/mL Normal 4.60-34.80 [facility] Comment on above: Order Comment: N Result Comment: Hemo lysis, Results will be affected, Requires Recollection. Performed By: #### L 3130.0010, L506.1001, L509.1000, L3300.0960 #### [facility] Laboratory [address] [place], [place], [id number] Glomerular filtration rate ( GFR) estimation/1.73 sq m using serum, plasma, or whole bOrdered By: Parrish Miranda on 03-02-2025 GFR/1.73 sq M.predicted among non-blacks MDRD (S/P/Bld) [Vol rate/Area] 34 mL/min/{1.73_m2} Low >60 [facility] Comment on above: mL/min/1.73m2 CKD-EP I Creatinine Equation (2020) Hematocrit Auto (Bld) [Volum e fraction]Ordered By: Parrish Miranda on 03-02-2025 Hematocrit (Bld) [Volume fraction] 27.4 % Low 40-54 [facility] Hemoglobin measurementOrdere d By: Parrish Miranda on 03-02-2025 Hemoglobin (Bld) [Mass/Vol] 9.0 g/dL Low 13.0-16.5 [facility] Immature granulocytes/100 WB C Auto (Bld)Ordered By: Parrish Miranda on 03-02-2025 Immature granulocytes/100 WBC (Bld) 0.600 % 0.0-0.9 [facility] Comment on above: IG% - Immature Granu locytes (promyelocytes, myelocytes and metamyelocytes) > 1% indicates that a LEFT SHIFT is Present. International normalized rat io (INR) calculationOrdered By: Parrish Miranda on 03-02-2025 INR Coag (Bld) [Relative time] 1.1 {INR} [facility] Iron measurement (mass/mass) Ordered By: Parrish Miranda on 03-02-2025 Iron (Unsp spec) [Mass/Mass] 52 ug/dL Low 65-175 [facility] Iron+Iron Binding Capacityon 03-02-2025 TIBC 228 ug/dL Low 250-450 [facility] Comment on above: Performed By: #### L 3130.0010, L506.1001, L509.1000, L3300.0960 #### [facility] Laboratory [address] [place], [place], [id number] LDHon 03-02-2025 LDH 171 U/L Normal 87-241 [facility] Comment on above: Order Comment: 1 Performed By: #### L 3130.0010, L506.1001, L509.1000, L3300.0960 #### [facility] Laboratory [address] [place], [place], [id number] Laboratory - Chemistry and C hemistry - challengeOrdered By: Parrish Miranda on 03-02-2025 AST [Catalytic activity/Vol] 30 U/L <38 [facility] Lactate dehydrogenase (LDH) measurementOrdered By: Parrish Miranda on 03-02-2025 LDH [Catalytic activity/Vol] 171 U/L 87-241 [facility] MCV (mean corpuscular volume ) determinationOrdered By: Parrish Miranda on 03-02-2025 MCV (RBC) [Entitic vol] 90.1 fL 80-94 [facility] Magnesiumon 03-02-2025 Magnesium [Mass/Vol] 2.6 mg/dL High 1.5-2.2 [facility] Comment on above: Performed By: #### L 3130.0010, L506.1001, L509.1000, L3300.0960 #### [facility] Laboratory [address] [place], [place], [address] Magnesium measurement (mass/ volume)Ordered By: Parrish Miranda on 03-02-2025 Magnesium (Unsp spec) [Mass/Vol] 2.6 mg/dL High 1.5-2.2 [facility] Mean corpuscular hemoglobin (MCH) determinationOrdered By: Parrish Miranda on 03-02-2025 MCH (RBC) [Entitic mass] 29.6 pg 27.0-32.0 [facility] Mean corpuscular hemoglobin concentration (MCHC) determinationOrdered By: Parrish Miranda on 03-02-2025 MCHC (RBC) [Mass/Vol] 32.8 g/dL 32-36 [facility] Mean platelet volume determi nationOrdered By: Parrish Miranda on 03-02-2025 Platelet mean volume (Bld) [Entitic vol] 10.2 fL 6.2-12.0 [facility] Monocyte percentageOrdered B y: Parrish Miranda on 03-02-2025 Monocytes/100 WBC (Bld) 6.0 % 0-10 [facility] Neutrophil percentageOrdered By: Parrish Miranda on 03-02-2025 Neutrophils/100 WBC (Bld) 90.0 % High 47-70 [facility] No Panel InformationOrdered By: Parrish Miranda on 03-02-2025 Unsaturated Iron Binding Capacity 176 ug/dL Low 228-428 [facility] 176 ug/dL Low 228-428 [facility] Nucleated red blood cell per centageOrdered By: Parrish Miranda on 03-02-2025 Nucleated RBC/100 WBC (Bld) [Ratio] 0 % 0-5 [facility] Oncology Visit Reporton Oncology Visit Report [facility] [address] [place] [address] OFFICE VISIT Date of Service: 03/02/25 0950 MR#: [id number] Acct: [id number] Name: JUJU CACERES Rep #: [id number] : 1945 From: Parrish Miranda MD Age/Sex: 79/M Location: [facility] [place] Status: Signed HPI Subjective Date of Service 03/02/25 Chief Complaint Referred for Lymphoma. History of Present Illness 79-year-old man presented with weight loss. CT scan on 12/21/2024 done at [place] showed left-sided lung nodules and mediastinal mass with pleural effusion. 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 He was referred to cardiothoracic surgery at [facility], underwent thoracotomy with biopsy on 02/08/2025. 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 He was found to have hypercalcemia and has been on steroids for a few days. He has tiredness, but doing his ADLs. 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, [place] pets and animals: No history of recent travel: No Smoking Status: Never smoker alcohol intake: never substance use type: does not use caffeine: No what type of physical activity do you participate in: walking seatbelt use: always ROS Constitutional Constitutional: Reports systems reviewed and no addt'l complaints, except as documented Eyes Eyes: Reports systems reviewed and no addt'l complaints, except as documented ENT HEENT: Reports systems reviewed and no addt'l complaints, except as documented Cardiovascular Cardiovascular: Reports systems reviewed and no addt'l complaints, except as documented Respiratory/Chest Respiratory/Chest: Reports systems reviewed and no addt'l complaints, except as documented Gastrointestinal Gastrointestinal: Reports systems reviewed and no addt'l complaints, except as documented Genitourinary Genitourinary: Reports systems reviewed and no addt'l complaints, except as documented Musculoskeletal Musculoskeletal: Reports systems reviewed and no addt'l complaints, except as documented Integumentary Integumentary: Reports systems reviewed and no addt'l complaints, except as documented Neurologic Neurologic: Reports systems reviewed and no addt'l complaints, except as documented Psychiatric Psychiatric: Reports systems reviewed and no addt'l complaints, except as documented Endocrine Endocrinology: Reports systems reviewed and no addt'l complaints, except as documented Hematologic/Lymphatic Hematologic/Lymphatic: Reports systems reviewed and no addt'l complaints, except as documented Intake Vital Signs 06/05/24 10:09 02/14/25 07:01 03/02/25 09:56 03/02/25 10:02 Height 5 ft 8 in 5 ft 6 in 5 ft 6 in 5 ft 6 in Weight: 59.477 kg 59.477 kg BMI 21.2 21.2 BP 105/61 Blood Pressure Location Rt brachial Position Sitting Respiration 18 Pulse 75 Pulse Source Monitor Temp 97.8 F Temperature Source Temporal Artery Pulse Oximetry (%) 98 Oxygen Delivery Method room air Intake Is patient in pain?: No Allergies No Known Allergies Allergy (Verified 03/02/25 09:50) Medications ???Medication ???Instructions ???Recorded ???Confirmed ???Type melatonin 3 mg tablet 3 mg PO QHS PRN sleep 01/19/25 History ascorbate calcium (vitamin C) 500 500 mg PO QDAY 02/01/25 02/16/25 History mg tablet cholecalciferol (vitamin D3) 125 125 mcg PO QDAY 02/01/25 02/16/25 History mcg (5,000 unit) capsule omega-3 fatty acids-fish oil 300 1 cap PO DAILY 02/01/25 02/16/25 H istory mg-500 mg capsule (Fish Oil) metoprolol tartrate 50 mg tablet 50 mg PO DAILY 02/04/25 03/02/25 H istory sennosides 8.6 mg capsule (senna) 8.6 mg PO DAILY PRN constipation 5 02/14/25 03/02/25 Rx days #5 caps selenium sulfide 1 % shampoo 5 ml topical 2XW 02/16/25 02/16/25 History (Dandruff Shampoo (selenium sulfide)) allopurinol 300 mg tablet 300 mg PO QDAY #30 tabs 03/02/25 1 Rx magnesium 250 mg tablet 133 m (more content not included)... Normal [facility] Partial Thromboplast Timeon 03-02-2025 aPTT Coag (Bld) [Time] 30.7 s Normal 24.1-36.2 [facility] Comment on above: Performed By: #### L 3130.0010, L506.1001, L509.1000, L3300.0960 #### [facility] Laboratory [address] [place], [address] Phosphoruson 03-02-2025 Phosphate [Mass/Vol] 3.5 mg/dL Normal 2.7-4.5 [facility] Comment on above: Performed By: #### L 3130.0010, L506.1001, L509.1000, L3300.0960 #### [facility] [address] [place], [address] Platelet countOrdered By: Allison Miranda on 03-02-2025 Platelets (Bld) [#/Vol] 557 10*3/uL High 150-450 [facility] Potassium measurement (mass/ volume)Ordered By: Parrish Miranda on 03-02-2025 Potassium (Unsp spec) [Mass/Vol] 4.1 mmol/L 3.3-5.1 [facility] Prothrombin Time w/INRon INR Coag (PPP) [Relative time] 1.1 {INR} Normal [facility] Comment on above: Performed By: #### L 100.9950, L500.4050, L501.6710, L101.9900, L506.0200, L300.3900, L501.2300, L501.1400, L3890.5000, L503.6030, L501.5200, L504.2610, L100.0100, L3100.1350, L503.0106, L503.6550, L300.4310 ####[facility] [address] [place], [address] PT Coag (PPP) [Time] 14.2 s Normal 11.7-14.9 [facility] Comment on above: Performed By: #### L 100.9950, L500.4050, L501.6710, L101.9900, L506.0200, L300.3900, L501.2300, L501.1400, L3890.5000, L503.6030, L501.5200, L504.2610, L100.0100, L3100.1350, L503.0106, L503.6550, L300.4310 ####[facility] [address] [place], [address] Prothrombin timeOrdered By: Parrish Miranda on 03-02-2025 PT Coag (PPP) [Time] 14.2 s 11.7-14.9 [facility] RBC Auto (Bld) [#/Vol]Ordere d By: Parrish Miranda on 03-02-2025 RBC (Bld) [#/Vol] 3.04 10*6/uL Low 4.6-6.2 [facility] Retic Panelon 03-02-2025 IM RET FRACTION 5.70 Normal 3.00-15.90 [facility] Comment on above: Performed By: #### L 100.9950, L500.4050, L501.6710, L101.9900, L506.0200, L300.3900, L501.2300, L501.1400, L3890.5000, L503.6030, L501.5200, L504.2610, L100.0100, L3100.1350, L503.0106, L503.6550, L300.4310 ####[facility] [address] [place], [place], [id number] RET-HE 34.8 pg Normal 30-35 [facility] Comment on above: Performed By: #### L 100.9950, L500.4050, L501.6710, L101.9900, L506.0200, L300.3900, L501.2300, L501.1400, L3890.5000, L503.6030, L501.5200, L504.2610, L100.0100, L3100.1350, L503.0106, L503.6550, L300.4310 ####[facility] [address] [place], [place], [id number] Retic Count 1.87 High 0.5-1.5 [facility] Comment on above: Performed By: #### L 100.9950, L500.4050, L501.6710, L101.9900, L506.0200, L300.3900, L501.2300, L501.1400, L3890.5000, L503.6030, L501.5200, L504.2610, L100.0100, L3100.1350, L503.0106, L503.6550, L300.4310 ####[facility] [address] [place], [address] Reticulocyte hemoglobin equi valent (RET-He) measurementOrdered By: Parrish Miranda on 03-02-2025 Hemoglobin (Reticulocytes) [Entitic mass] 34.8 pg 30-35 [facility] Reticulocytes Auto (Bld) [#/ Vol]Ordered By: Parrish Miranda on 03-02-2025 Reticulocytes/100 RBC (Bld) 1.87 % High 0.5-1.5 [facility] Serum creatinine measurement (mass/volume)Ordered By: Parrish Miranda on 03-02-2025 Creatinine [Mass/Vol] 1.97 mg/dL High 0.70-1.20 [facility] Serum globulin measurementOr dered By: Parrish Miranda on 03-02-2025 Globulin (S) [Mass/Vol] 3.6 g/dL 2.2-4.2 [facility] Serum glucose measurement (m ass/volume)Ordered By: Parrish Miranda on 03-02-2025 Glucose [Mass/Vol] 107 mg/dL High 70-99 [facility] Serum or plasma C reactive p rotein measurement (mass/volume)Ordered By: Parrish Miranda on 03-02-2025 CRP [Mass/Vol] 114.00 mg/L High 0.0-3.0 [facility] Serum or plasma alanine keen otransferase (ALT) measurementOrdered By: Parrish Miranda on 03-02-2025 ALT [Catalytic activity/Vol] 84 U/L High <47 [facility] Serum or plasma albumin emma urement (mass/volume)Ordered By: Parrish Miranda on 03-02-2025 Albumin [Mass/Vol] 3.6 g/dL 3.4-4.8 [facility] Serum or plasma albumin/glob ulin mass ratioOrdered By: Parrish Miranda on 03-02-2025 Albumin/Globulin [Mass ratio] 1.0 {ratio} 0.9-2.4 [facility] Serum or plasma alkaline david sphatase measurementOrdered By: Parrish Miranda on 03-02-2025 ALP [Catalytic activity/Vol] 112 U/L 40-129 [facility] Serum or plasma calcium emma urement (mass/volume)Ordered By: Parrish Miranda on 03-02-2025 Calcium [Mass/Vol] 13.9 mg/dL Critically high 7.6-11.0 [facility] Comment on above: CALLED 5 TIMES WITH NO ANSWER-LEFT VOICEMAIL @ 8522 03/02/2025RITICAL RESULT CALLED TO [facility] BY NATALIE HO. RESULTS READ BACK BY SAME. 1247 Serum or plasma erythropoiet in (EPO) measurement (units/volume)Ordered By: Parrish Miranda on 03-02-2025 Erythropoietin (EPO) Qn 18.3 mIU/mL 2.6-18.5 [facility] Serum or plasma ferritin erica surement (mass/volume)Ordered By: Parrish Miranda on 03-02-2025 Ferritin [Mass/Vol] 1522 ng/mL High 37-417 [facility] Serum or plasma iron saturat ion measurement (mass fraction)Ordered By: Parrish Miranda on 03-02-2025 Iron saturation [Mass fraction] 22.8 % 9-55 [facility] Comment on above: Previous reported re sult: 22.9 %Edited by: CHRISTIE on 03/02/25:1248 AMENDED REPORT 03/02/25 1248 IRON SATURATION previously reported as: 22.9 % Serum or plasma urea nitroge n measurement (mass/volume)Ordered By: Parrish Miranda on 03-02-2025 Urea nitrogen [Mass/Vol] 63 mg/dL High 4-19 [facility] Serum or plasma uric acid me asurement (mass/volume)Ordered By: Parrish Miranda on 03-02-2025 Urate [Mass/Vol] 9.0 mg/dL High 3.5-7.2 [facility] Comment on above: The drugs N-Acetylcy steine and Metamizole may falsely depress this assay. Sodium levelOrdered By: Percy Miranda on 03-02-2025 Sodium [Moles/Vol] 134 mmol/L 133-145 [facility] Total proteinOrdered By: Floyd Miranda on 03-02-2025 Protein [Mass/Vol] 7.2 g/dL 5.9-8.4 [facility] Uric Acidon 03-02-2025 URIC 9.0 mg/dL High 3.5-7.2 [facility] Comment on above: Result Comment: The drugs N-Acetylcysteine and Metamizole may falsely depress this assay. Performed By: #### L 3130.0010, L506.1001, L509.1000, L3300.0960 #### [facility] Laboratory [address] [place], [address] Vitamin B12on 03-02-2025 Cobalamin (Vitamin B12) [Mass/Vol] 1187 pg/mL High 180-914 [facility] Comment on above: Performed By: #### L 3130.0010, L506.1001, L509.1000, L3300.0960 #### [facility] [address] [place], [address] Vitamin B12 ser/plasOrdered By: Parrish Miranda on 03-02-2025 Cobalamin (Vitamin B12) [Mass/Vol] 1187 pg/mL High 180-914 [facility] White blood cell (WBC) count Ordered By: Parrish Miranda on 03-02-2025 WBC (Bld) [#/Vol] 16.1 10*3/uL High 4.4-11.0 [facility] Office Visiton 02-24-2025 Follow-up visit [id number] Edi Caceres 1945 Date Provider Department Center 02/24/2025 RAFAEL URRUTIA [facility] CT None Family History Problem Relation Age of Onset Throat cancer Brother Family Status - Relation Status Age at Brother Level of Service:72298 [place] POSTOP FOLLOW UP VISIT RELATED TO ORIGINAL PX Reason for Visit and Comments: Post-op [483] Normal [facility] Progress Noteon 02-24-2025 Progress Note [facility]: [facility] [address] [facility] [address] Dept: [phone] Dept Loc: [phone] Visit type: Established patient Reason for Visit: Post-op Assessment and Plan 1. Mediastinal mass 02/08/25: Dr. Contreras- Left thoracoscopy converted to left thoracotomy, mediastinal biopsy, drainage of pleural effusion, parietal pleural biopsy, mechanical pleurodesis -Obtain CXR, assess for new pleural effusion. Order placed. -Pathology discussed with patient and family by Dr. Contreras, aware from PCP appointment. -Appointment with [facility]. -Incisions healing well, no redness, warmth or drainage. Suture removed. -Pain tolerable with acetaminophen. Disposition: Follow up PRN. Patient verbalized understanding of plan and stated they would call if any questions or concerns arise. Treatment Team: PCP: MICHELET GOOD Subjective HPI: Juju Caceres is a 79 y.o. male referred by Dr. Garcia for mediastinal mass. Per note, pt had CT chest completed at [place] on 12/21/24 which demonstrated a large mass [...] any medical problems and takes no medications. Juju Caceres is a 79 y.o. who presented for mediastinal mass biopsy. They underwent a open thoracotomy which they tolerated well. They were transported to PACU extubated and in stable condition. Post-operative course was unremarkable. Chest tube was removed on POD # 2. Patient's diet was advanced appropriately. Post-operative pain was well controlled with pain medications. At the time of discharge, patient was hemodynamically stable, afebrile, tolerating a regular diet without nausea or vomiting, ambulating with assistance, voiding spontaneously, and having appropriate bowel function. All discharge questions answered. Appropriate follow-up has been placed in the chart. 02/24/25: Patient in office for follow up with family. He remains tired and weak but this was baseline prior to surgery. Pain present but tolerable. Incisions healing well, suture removed. Dr. Contreras in office to discuss pathology with patient, already aware and has Oncology appt scheduled. Component Addendum ROMARIO in situ hybridization is negative. 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 Please see [employer] report [id number] for High-Grade/Large B-Cell Lymphoma FISH ordered by Dr. Michelle Tolbert. Report has been scanned into the patient's chart. Addendum electronically signed by Michelle Tolbert MD MPH on 02/21/2025 at 0950 EDT Final Diagnosis A, C: MEDIASTINAL MASS AND PARIETAL PLEURA, EXCISION - INVOLVED BY LARGE B-CELL LYMPHOMA WITH HIGH-GRADE FEATURES - PENDING CYTOGENETIC STUDIES - SEE COMMENT B: RPMI SPECIMEN: LIMITED VIABILITY; MONOTYPIC [id number] B-CELL POPULATION DETECTED at 1340 EDT Allergies[1] Current Medications[2] Medical History[3] Objective Patient reported: Failed to redirect to the Timeline version of the [employer]. Vitals: 02/24/25 1044 BP: 126/68 Pulse: 74 Wt Readings from Last 3 Encounters: 02/24/25 132 lb 9.6 oz (60.1 kg) 02/08/25 141 lb 1.5 oz (64 kg) 02/03/25 141 lb (64 kg) Physical Exam Vitals reviewed. Constitutional: General: He is not in acute distress. Cardiovascular: Rate and Rhythm: Normal rate and regular rhythm. Pulses: Normal pulses. Heart sounds: No murmur heard. Pulmonary: Effort: Pulmonary effort is normal. Breath sounds: No wheezing, rhonchi or rales. Skin: General: Skin is warm and dry. Comments: Surgical incisions healing well. No redness, warmth or drainage noted. Neurological: Mental Status: He is alert. Data Reviewed and Summarized Labs/Imaging/Testing: reviewed EMR, see A&P for pertinent diagnostic results related to office visit Rafael Joshua APRN - LAB AIDE [1] No Known Allergies [2] Current Outpatient Medications: Ascorbic Acid (vitamin C) 500 MG tablet, Take 500 mg by mouth daily., Disp: , Rfl: cholecalciferol (Vitamin D-3) 125 MCG (5000 UT) capsule, 125 mcg., Disp: , Rfl: fish oil ([place]-3) 500 MG capsule, Take 500 mg by mouth daily., Disp: , Rfl: MAGNESIUM PO, Take 250 mg by mouth., Disp: , Rfl: melato (more content not included)... Normal [facility] L3410.9992on 02-20-2025 [facility] COMMENT Normal . [facility] Comment on above: Order Comment: BODY FLUID Result Comment: Test Ordered: [id number] PTHrP (PTH-Related Peptide) PTHrP (PTH-Related Peptide) <2.0 pmol/L Reference Range: . This test was developed and its performance characteristics determined by [employer]. It has not been cleared or approved by the Food and Drug Administration. Reference Range: All Ages: <2.0 The PTHrP assay should not be used to exclude cancer or screen tumor patients for humoral hypercalcemia of malignancy (HHM). The results should always be assessed in conjunction with the patient's medical history, clinical examination, and other findings. If test results are clinically discordant, please contact the laboratory. Performed at: [facility] [address] [place] [id number] Section Maintainer: Anabel Cheung MD, Phone: [phone] Performed at: [facility] [address] [id number] Section Maintainer: Torito Green PhD, Phone: [phone] Performed By: #### M 100.2900, M100.4001, L001.0705, L504.0250, L200.0200, L350.1000, M100.2000, L503.0300 #### [facility] Laboratory [facility] [address] [facility] [place], [address] Anion gap in Serum or Plasma Ordered By: Michelet Good on 02-15-2025 Anion gap [Moles/Vol] 14 mmol/L 10-14 [facility] BUN/creatinine ratioOrdered By: Michelet Good on 02-15-2025 Urea nitrogen/Creatinine [Mass ratio] 20.9 mg/mg High 03-21 [facility] Carbon dioxide, total [Moles /volume] in Central venous bloodOrdered By: Michelet Good on 02-15-2025 CO2 [Moles/Vol] 20.5 mmol/L Low 21.0-32.0 [facility] Chloride assayOrdered By: Carin Good on 02-15-2025 Chloride [Moles/Vol] 98 mmol/L 98-108 [facility] Glomerular filtration rate ( GFR) estimation/1.73 sq m using serum, plasma, or whole bOrdered By: Michelet Good on 02-15-2025 GFR/1.73 sq M.predicted among non-blacks MDRD (S/P/Bld) [Vol rate/Area] 22 mL/min/{1.73_m2} Low >60 [facility] Comment on above: mL/min/1.73m2 CKD-EP I Creatinine Equation (2020) Potassium measurement (mass/ volume)Ordered By: Michelet Good on 02-15-2025 Potassium (Unsp spec) [Mass/Vol] 5.6 mmol/L High 3.3-5.1 [facility] Renal Profileon 02-15-2025 Calcium [Mass/Vol] 12.6 mg/dL Invalid Interpretation Code 7.6-11.0 [facility] Comment on above: Order Comment: BODY FLUID Result Comment: ATTE MPTED TO REACH NUSE @ 1600 02/15/2025 LEFT VOICEMAIL @ 1621 02/15/2025 ATTEMPTED TO REACH NUSE @ 1600 02/15/2025 LEFT VOICEMAIL @ 1621 02/15/2025 CRITCAL CALLED TO MELITON SINGH @ 1632 02/15/2025 AMENDED REPORT 02/15/25 1632 CA previously reported as: 12.6 *H mg/dL ATTEMPTED TO REACH NUSE @ 1600 02/15/2025 LEFT VOICEMAIL @ 1621 02/15/2025 Performed By: #### M 100.2900, M100.4001, L001.0705, L504.0250, L200.0200, L350.1000, M100.2000, L503.0300 #### [facility] Laboratory [address] [place], [place], [id number] Serum creatinine measurement (mass/volume)Ordered By: Michelet Good on 02-15-2025 Creatinine [Mass/Vol] 2.81 mg/dL High 0.70-1.20 [facility] Serum glucose measurement (m ass/volume)Ordered By: Michelet Good on 02-15-2025 Glucose [Mass/Vol] 103 mg/dL High 70-99 [facility] Serum or plasma albumin emma urement (mass/volume)Ordered By: Michelet Good on 02-15-2025 Albumin [Mass/Vol] 3.6 g/dL 3.4-4.8 [facility] Serum or plasma calcium emma urement (mass/volume)Ordered By: Michelet Good on 02-15-2025 Calcium [Mass/Vol] 12.6 mg/dL Critically high 7.6-11.0 [facility] Comment on above: ATTEMPTED TO REACH N USE @ 1600 02/15/2025LEFT VOICEMAIL @ 1621 02/15/2025 ATTEMPTED TO REACH NUSE @ 1600 02/15/2025LEFT VOICEMAIL @ 1621 02/15/2025RITCAL CALLED TO MELITON SINGH @ 1632 02/15/2025Previous reported result: 12.6 mg/dLEdited by: RAGHAVENDRA on 02/15/25:1632 AMENDED REPORT 02/15/25 1632 CA previously reported as: 12.6 *H mg/dL ATTEMPTED TO REACH NUSE @ 1600 02/15/2025LEFT VOICEMAIL @ 1621 02/15/2025 Serum or plasma urea nitroge n measurement (mass/volume)Ordered By: Michelet Good on 02-15-2025 Urea nitrogen [Mass/Vol] 59 mg/dL High 4-19 [facility] Sodium levelOrdered By: Michelet Good on 02-15-2025 Sodium [Moles/Vol] 132 mmol/L Low 133-145 [facility] Abdomen/Pelvis without Conto n 02-14-2025 Abdomen/Pelvis without Cont [facility] Imaging Services [address] [place], [place] [address] Abdomen/Pelvis without Cont MR#: [id number] Acct: [id number] Name: ISABELJUJU RAY Rep #: [id number] : 1945 M 79 From: Santi De La Rosa MD PCP: Dr. Michelet Good, DO Status: REG ER Study: Abdomen/Pelvis without Cont Date of Exam: 01/31 10/24 Exam# [id number] Ordering Dr: Ed Parada DO PROCEDURE: ABDOMEN/PELVIS WITHOUT CONT 02/14/2025 REASON FOR EXAM: CONSTIPATION TECHNIQUE: Procedure Code: CTABDPEL Modality: CT Procedure: ABDOMEN/PELVIS WITHOUT CONT Noncontrast technique limits evaluation of the abdominal and pelvic viscera. Coronal and Sagittal reconstruction series were provided. One or more dose reduction techniques were used (e.g., Automated exposure control, adjustment of the mA and/or kV according to patient size, use of iterative reconstruction technique). RADIATION DOSE SUMMARY: DLP: 329 mGycm COMPARISON: January 18, 2025 FINDINGS: Lung bases: There is 3.2 by 1.6 cm pleural-based density at the left lung base, image 16/184, Hounsfield units = 30. There is a 2.6 by 1.6 cm pleural-based nodular density at the left heart border, same image, Hounsfield units = 39. there is marked improvement of a left pleural effusion compared to the prior. There is a 0.4 cm nodular density at the right lung base, image 5/84, new. Liver: Unremarkable Gallbladder: Unremarkable Spleen: Unremarkable Pancreas: Unremarkable Adrenals: There is a 1.6 cm nodule in the left adrenal, Hounsfield units = 32, image 41/184. Kidneys: There is moderate right hydronephrosis with dilation of the right ureter, secondary to a mass in the right pelvis measuring 3.2 by 2.2 cm, image 137/184, similar to the prior. The left kidney shows no stone or hydronephrosis. Bladder: Unremarkable Reproductive Organs: Prostate calcifications are noted Bowel: Gas and stool is noted throughout the colon. There is a moderate stool load. There is diverticulosis of the distal descending and sigmoid colon with no visible acute diverticulitis. Appendix: Unremarkable Lymph nodes: There is no new adenopathy Vasculature: Atherosclerotic calcifications are noted. Peritoneum / Retroperitoneum: There is no free air or free fluid. Bones: Degenerative changes in the lumbar spine are similar to the prior. There is no visible acute bony abnormality. CT/Abdomen/Pelvis without Cont IMPRESSION: There is 3.2 by 1.6 cm pleural-based density at the left lung base, image 16/184, Hounsfield units = 30. There is a 2.6 by 1.6 cm pleural-based nodular density at the left heart border, same image, Hounsfield units = 39. PET scan correlation is recommended. There is marked improvement of a left pleural effusion compared to the prior. There is a 0.4 cm nodular density at the right lung base, image 5/84, new. There is a 1.6 cm nodule in the left adrenal, Hounsfield units = 32, image 41/184. This appears increased compared to the prior. There is diverticulosis of the distal descending and sigmoid colon with no visible acute diverticulitis. Reading Location: [facility] CC: Dr. Ed Parada, DO; Dr. Michelet Good, DO Fire Sprinkler Inspector: Signed Normal [facility] Absolute lymphocyte countOrd ered By: Ed Parada on 02-14-2025 Lymphocytes Auto (Unsp spec) [#/Vol] 0.33 10*3/uL Low 0.83-4.51 [facility] Absolute neutrophil countOrd ered By: Ed Parada on 02-14-2025 Neutrophils (Bld) [#/Vol] 8.4 10*3/uL High 2.0-7.7 [facility] Anion gap in Serum or Plasma Ordered By: Ed Parada on 02-14-2025 Anion gap [Moles/Vol] 14 mmol/L 5-15 [facility] [facility] Automated lymphocyte count a s percentage of total leukocytesOrdered By: Ed Parada on 02-14-2025 Lymphocytes/100 WBC Auto (Unsp spec) 3.3 % Low 19-41 [facility] BUN/creatinine ratioOrdered By: Ed Parada on 02-14-2025 Urea nitrogen/Creatinine [Mass ratio] 20.9 mg/mg High 10-20 [facility] Basophil percentageOrdered B y: Ed Parada on 02-14-2025 Basophils/100 WBC (Bld) 0.5 % 0-1 [facility] Bilirubin, totalOrdered By: Edfrank Parada on 02-14-2025 Bilirubin [Mass/Vol] 0.23 mg/dL 0.00-1.30 [facility] CBC W/Diff, Automatedon 01-31 Absolute Lymph 0.33 X10 3/uL Low 0.83-4.51 [facility] Comment on above: Performed By: #### M 100.2900, M100.4001, L001.0705, L504.0250, L200.0200, L350.1000, M100.1999, L503.0300 #### [facility] Laboratory [address] [place], [address] Absolute Neut 8.4 X10 3/uL High 2.0-7.7 [facility] Comment on above: Performed By: #### M 100.2900, M100.4001, L001.0705, L504.0250, L200.0200, L350.1000, M100.2000, L503.0300 #### [facility] Laboratory [address] [place], [address] Basophils/100 WBC (Bld) 0.5 % Normal 0-1 [facility] Comment on above: Performed By: #### M 100.2900, M100.4001, L001.0705, L504.0250, L200.0200, L350.1000, M100.2000, L503.0300 #### [facility] Laboratory [address] [place], [address] Eosinophils/100 WBC (Bld) 3.7 % Normal 0-5 [facility] Comment on above: Performed By: #### M 100.2900, M100.4001, L001.0705, L504.0250, L200.0200, L350.1000, M100.2000, L503.0300 #### [facility] Laboratory [address] [place], [address] Erythrocyte distribution width (RBC) [Ratio] 14.5 % Normal 11.6-14.6 [facility] Comment on above: Performed By: #### M 100.2900, M100.4001, L001.0705, L504.0250, L200.0200, L350.1000, M100.2000, L503.0300 #### [facility] Laboratory [address] [place], [address] Hematocrit (Bld) [Volume fraction] 25.2 % Low 40-54 [facility] Comment on above: Performed By: #### M 100.2900, M100.4001, L001.0705, L504.0250, L200.0200, L350.1000, M100.2000, L503.0300 #### [facility] Laboratory [address] [place], [address] Hemoglobin (Bld) [Mass/Vol] 8.2 g/dL Low 13.0-16.5 [facility] Comment on above: Performed By: #### M 100.2900, M100.4001, L001.0705, L504.0250, L200.0200, L350.1000, M100.2000, L503.0300 #### [facility] Laboratory [address] [place], [address] IG% 0.700 Normal 0.0-0.9 [facility] Comment on above: Result Comment: IG% - Immature Granulocytes (promyelocytes, myelocytes and metamyelocytes) > 1% indicates that a LEFT SHIFT is Present. Performed By: #### M 100.2900, M100.4001, L001.0705, L504.0250, L200.0200, L350.1000, M100.2000, L503.0300 #### [facility] Laboratory [address] [place], [address] Lymphocytes/100 WBC (Bld) 3.3 % Low 19-41 [facility] Comment on above: Performed By: #### M 100.2900, M100.4001, L001.0705, L504.0250, L200.0200, L350.1000, M100.2000, L503.0300 #### [facility] Laboratory [address] [place], [address] MCH (RBC) [Entitic mass] 29.2 pg Normal 27.0-32.0 [facility] Comment on above: Performed By: #### M 100.2900, M100.4001, L001.0705, L504.0250, L200.0200, L350.1000, M100.2000, L503.0300 #### [facility] Laboratory [address] [place], [address] MCHC (RBC) [Mass/Vol] 32.5 g/dL Normal 32-36 [facility] Comment on above: Performed By: #### M 100.2900, M100.4001, L001.0705, L504.0250, L200.0200, L350.1000, M100.2000, L503.0300 #### [facility] Laboratory [address], [address] MCV (RBC) [Entitic vol] 89.7 fL Normal 80-94 [facility] Comment on above: Performed By: #### M 100.2900, M100.4001, L001.0705, L504.0250, L200.0200, L350.1000, M100.2000, L503.0300 #### [facility] Laboratory [address] [place], [address] Monocytes/100 WBC (Bld) 7.3 % Normal 0-10 [facility] Comment on above: Performed By: #### M 100.2900, M100.4001, L001.0705, L504.0250, L200.0200, L350.1000, M100.2000, L503.0300 #### [facility] Laboratory [address] [place], [address] Neutrophils/100 WBC (Bld) 84.5 % High 47-70 [facility] Comment on above: Performed By: #### M 100.2900, M100.4001, L001.0705, L504.0250, L200.0200, L350.1000, M100.1999, L503.0300 #### [facility] Laboratory [address] [place], [address] Nucleated RBC (Bld) [#/Vol] 0 10*3/uL Normal 0-5 [facility] Comment on above: Performed By: #### M 100.2900, M100.4001, L001.0705, L504.0250, L200.0200, L350.1000, M1, L503.0300 #### [facility] Laboratory [address] [place], [address] Platelet mean volume (Bld) [Entitic vol] 9.8 fL Normal 6.2-12.0 [facility] Comment on above: Performed By: #### M 100.2900, M100.4001, L001.0705, L504.0250, L200.0200, L350.1000, M100.1999, L503.0300 #### [facility] Laboratory [address], [address] Platelets (Bld) [#/Vol] 417 10*3/uL Normal 150-450 [facility] Comment on above: Performed By: #### M 100.2900, M100.4001, L001.0705, L504.0250, L200.0200, L350.1000, M100.1999, L503.0300 #### [facility] Laboratory [address] [place], [address] RBC (Bld) [#/Vol] 2.81 10*6/uL Low 4.6-6.2 [facility] Comment on above: Performed By: #### M 100.2900, M100.4001, L001.0705, L504.0250, L200.0200, L350.1000, M100.2000, L503.0300 #### [facility] Laboratory [address] [place], [address] RDW SD 47.2 fl High 35.1-43.9 [facility] Comment on above: Performed By: #### M 100.2900, M100.4001, L001.0705, L504.0250, L200.0200, L350.1000, M100.2000, L503.0300 #### [facility] Laboratory [address] [place], [address] WBC (Bld) [#/Vol] 10.0 10*3/uL Normal 4.4-11.0 [facility] Comment on above: Performed By: #### M 100.2900, M100.4001, L001.0705, L504.0250, L200.0200, L350.1000, M100.2000, L503.0300 #### [facility] Laboratory [address] [place], [address] Carbon dioxide, total [Moles /volume] in Central venous bloodOrdered By: Ed Parada on 02-14-2025 CO2 [Moles/Vol] 20.1 mmol/L Low 21.0-32.0 [facility] Chloride assayOrdered By: Primo Parada on 02-14-2025 Chloride [Moles/Vol] 99 mmol/L 98-108 [facility] Comprehensive Metabolic Prof ilon 02-14-2025 Albumin [Mass/Vol] 3.5 g/dL Normal 3.4-4.8 [facility] Comment on above: Performed By: #### M 100.2900, M100.4001, L001.0705, L504.0250, L200.0200, L350.1000, M100.2000, L503.0300 #### [facility] Laboratory [address] [place], [address] Albumin/Globulin [Mass ratio] 0.9 {ratio} Normal 0.9-2.4 [facility] Comment on above: Performed By: #### M 100.2900, M100.4001, L001.0705, L504.0250, L200.0200, L350.1000, M100.2000, L503.0300 #### [facility] Laboratory [address] [place], [address] ALK PHOS 100 U/L Normal 40-129 [facility] Comment on above: Performed By: #### M 100.2900, M100.4001, L001.0705, L504.0250, L200.0200, L350.1000, M100.1999, L503.0300 #### [facility] Laboratory [address] [place], [address] ALT [Catalytic activity/Vol] 22 U/L Normal <=46 [facility] Comment on above: Performed By: #### M 100.2900, M100.4001, L001.0705, L504.0250, L200.0200, L350.1000, M100.2000, L503.0300 #### [facility] Laboratory [address] [place], [address] AST [Catalytic activity/Vol] 27 U/L Normal <=37 [facility] Comment on above: Performed By: #### M 100.2900, M100.4001, L001.0705, L504.0250, L200.0200, L350.1000, M100.2000, L503.0300 #### [facility] Laboratory [address] [place], [address] Bilirubin [Mass/Vol] 0.23 mg/dL Normal 0.00-1.30 [facility] Comment on above: Performed By: #### M 100.2900, M100.4001, L001.0705, L504.0250, L200.0200, L350.1000, M100.1999, L503.0300 #### [facility] Laboratory [address] [place], [address] BUN/CRE 20.9 RATIO High 10-20 [facility] Comment on above: Performed By: #### M 100.2900, M100.4001, L001.0705, L504.0250, L200.0200, L350.1000, M100.1999, L503.0300 #### [facility] Laboratory [address] [place], [address] Calcium [Mass/Vol] 12.5 mg/dL High 7.6-11.0 [facility] Comment on above: Performed By: #### M 100.2900, M100.4001, L001.0705, L504.0250, L200.0200, L350.1000, M100.1999, L503.0300 #### [facility] Laboratory [address] [place], [address] Chloride [Moles/Vol] 99 mmol/L Normal 98-108 [facility] Comment on above: Performed By: #### M 100.2900, M100.4001, L001.0705, L504.0250, L200.0200, L350.1000, M100.1999, L503.0300 #### [facility] Laboratory [address] [place], [address] CO2 [Moles/Vol] 20.1 mmol/L Low 21.0-32.0 [facility] Comment on above: Performed By: #### M 100.2900, M100.4001, L001.0705, L504.0250, L200.0200, L350.1000, M100.2000, L503.0300 #### [facility] Laboratory [address] [place], [address] Creatinine [Mass/Vol] 2.89 mg/dL High 0.70-1.20 [facility] Comment on above: Performed By: #### M 100.2900, M100.4001, L001.0705, L504.0250, L200.0200, L350.1000, M100.2000, L503.0300 #### [facility] Laboratory [address] [place], [address] ECRCL 17.89 ml/min Low 50-250 [facility] Comment on above: Performed By: #### M 100.2900, M100.4001, L001.0705, L504.0250, L200.0200, L350.1000, M100.2000, L503.0300 #### [facility] Laboratory [address] [place], [address] GAP 14 Normal 5-15 [facility] Comment on above: Performed By: #### M 100.2900, M100.4001, L001.0705, L504.0250, L200.0200, L350.1000, M100.2000, L503.0300 #### [facility] Laboratory [address] [place], [address] GFR/1.73 sq M.predicted among non-blacks MDRD (S/P/Bld) [Vol rate/Area] 21 mL/min/{1.73_m2} Low >60 [facility] Comment on above: Result Comment: mL/m in/1.73m2 CKD-EPI Creatinine Equation (2020) Performed By: #### M 100.2900, M100.4001, L001.0705, L504.0250, L200.0200, L350.1000, M100.2000, L503.0300 #### [facility] Laboratory [address] [place], [address] Globulin (S) [Mass/Vol] 3.8 g/dL Normal 2.2-4.2 [facility] Comment on above: Performed By: #### M 100.2900, M100.4001, L001.0705, L504.0250, L200.0200, L350.1000, M100.2000, L503.0300 #### [facility] Laboratory [address] [place], [address] Glucose [Mass/Vol] 131 mg/dL High 70-99 [facility] Comment on above: Performed By: #### M 100.2900, M100.4001, L001.0705, L504.0250, L200.0200, L350.1000, M100.1999, L503.0300 #### [facility] Laboratory [address] [place], [address] Potassium [Moles/Vol] 4.8 mmol/L Normal 3.3-5.1 [facility] Comment on above: Performed By: #### M 100.2900, M100.4001, L001.0705, L504.0250, L200.0200, L350.1000, M100.1999, L503.0300 #### [facility] Laboratory [address] [place], [address] Sodium [Moles/Vol] 133 mmol/L Normal 133-145 [facility] Comment on above: Performed By: #### M 100.2900, M100.4001, L001.0705, L504.0250, L200.0200, L350.1000, M100.2000, L503.0300 #### [facility] Laboratory [address] [place], [address] T PROT 7.2 g/dL Normal 5.9-8.4 [facility] Comment on above: Performed By: #### M 100.2900, M100.4001, L001.0705, L504.0250, L200.0200, L350.1000, M100.2000, L503.0300 #### [facility] Laboratory [address] [place], [address] Urea nitrogen [Mass/Vol] 61 mg/dL High 4-19 [facility] Comment on above: Performed By: #### M 100.2900, M100.4001, L001.0705, L504.0250, L200.0200, L350.1000, M100.2000, L503.0300 #### [facility] Laboratory [address] [place], [address] Emergency Department Summary on 02-14-2025 Emergency Department Summary [facility] Medical Records Department [address] [place] [address] Emergency Department Summary 02/14/25 MR#: [id number] Acct: [id number] Name: JUJU CACERES Rep #: [id number] : 1945 79 From: Ed Parada DO PCP: Dr. Michelet Good, DO Status:REG ER Location: ED HPI History of Present Illness Chief Complaint: Constipation Narrative Narrative: Chief complaint and HPI: 79-year-old male with lung mass status post recent lung biopsy, HTN presents for evaluation of constipation. Patient states on Friday he had a lung biopsy performed. States the procedure went well. States he has been intermittently taking oxycodone secondary to pain. Patient states he has not had a bowel movement since Friday. Has been taking daily MiraLAX with little relief. He denies any fever, chills, shortness of breath, chest pain, nausea, vomiting, constipation, diarrhea. States he has a little abdominal discomfort. Has been eating and drinking. Passing gas. Review of systems: See HPI Medications: As listed on the chart Allergies: As listed on the chart PFSH: Per chart Vital signs: As listed on the chart. Reviewed. Physical exam: Gen: A O x3, NAD Head: Normocephalic, atraumatic Eyes: No sclera icterus, conjunctiva clear ENT: Moist mucous membranes Neck: Trachea midline, No JVD CV: RRR, no murmurs, no peripheral edema Resp: Lungs CTA BL, no w/r/c, left-sided chest surgical incisions healing well without signs of infection GI: Abd soft, non-distended, non-tender, no r/r/g Rectal: Normal external examination. No evidence of hemorrhoids or fissures. Normal tone and sensation. No masses, fluctuance, or tenderness. No pain out of proportion. Stool brown on gloved finger. Stool present in the rectal vault at my fingertip. Soft. Unable to reach for manual disimpaction. Musc: Full ROM, no deformity Skin: Warm, dry Neuro: Alert, oriented, grossly intact, sensation intact Psych: Cooperative, appropriate mood and affect [facility] Medical History Hypercalcemia Dyspnea Recurrent left pleural effusion Acute kidney injury Pleural effusion Lung mass Macular degeneration Home Medications ???Medication ???Instructions ???Recorded ???Last Taken ???Type melatonin 3 mg tablet 3 mg PO QHS PRN sleep 01/19/25 Unk nown History ascorbate calcium (vitamin C) 500 500 mg PO QDAY 02/01/25 Unknown H istory mg tablet cholecalciferol (vitamin D3) 125 125 mcg PO QDAY 02/01/25 Unknown H istory mcg (5,000 unit) capsule omega-3 fatty acids-fish oil 300 1 cap PO DAILY 02/01/25 Unknown Hi story mg-500 mg capsule (Fish Oil) magnesium 250 mg tablet 250 mg PO DAILY 02/04/25 Unknown H istory metoprolol tartrate 50 mg tablet 50 mg PO DAILY 02/04/25 Unknown Hi story Allergy/AdvReac Type Severity Reaction Status Date / Time No Known Allergies Allergy Verified 02/14/25 07:02 Family History Brother Cancer throat Surgical History History of thoracentesis Social History household members: significant other current occupational status: retired 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 pets and animals: No history of recent travel: No Smoking Status: Never smoker alcohol intake: never substance use type: does not use caffeine: No what type of physical activity do you participate in: walking seatbelt use: always EXAM Physical Exam Const Vital Signs: 02/14/25 07:01 02/14/25 11:10 Temperature 98.2 F 97.5 F L Temperature Source Oral Oral Pulse Rate 78 Respiratory Rate 18 16 Blood Pressure 124/64 H 133/59 H Blood Pressure Mean 84 83 Pulse Ox 98 Oxygen Delivery Method Room Air Room Air MDM MDM MDM Narrative Medical decision making narrative: 79-year-old male with lung mass status post recent lung biopsy, HTN presents for evaluation of constipation. Patient states on Friday he had a lung biopsy performed. States the procedure went well. States he has been intermittently taking oxycodone secondary to pain. Patient states he has not had a bowel movement since Friday. Has been taking daily MiraLAX with little relief. Differential diagnosis includes but is not limited to constipation, ileus, obstruction, metastatic disease. I suspect more likely constipation from oxycodone use however given that patient does not regular suffer from constipation and recently just had surgery we will obtain basic labs with CT abdomen pelvis. CBC without leukocytosis. Patient has baseline anemia with hemoglobin of 8.2. Platelets unremarkable. CMP shows baseline renal insufficiency with creatinine of 2.89 and a BU (more content not included)... Normal [facility] Eosinophil percentageOrdered By: Ed Karma on 02-14-2025 Eosinophils/100 WBC (Bld) 3.7 % 0-5 [facility] Erythrocyte distribution wid th ratioOrdered By: Amboy Karma on 02-14-2025 Erythrocyte distribution width (RBC) [Ratio] 14.5 % 11.6-14.6 [facility] Erythrocyte distribution wid th standard deviationOrdered By: Ed Mona Hernandez on 02-14-2025 Erythrocyte distribution width (RBC) [Ratio] 47.2 fl High 35.1-43.9 [facility] Glomerular filtration rate ( GFR) estimation/1.73 sq m using serum, plasma, or whole bOrdered By: Ed Parada on 02-14-2025 GFR/1.73 sq M.predicted among non-blacks MDRD (S/P/Bld) [Vol rate/Area] 21 mL/min/{1.73_m2} Low >60 [facility] Comment on above: mL/min/1.73m2 CKD-EP I Creatinine Equation (2020) Hematocrit Auto (Bld) [Volum e fraction]Ordered By: De Aydee on 02-14-2025 Hematocrit (Bld) [Volume fraction] 25.2 % Low 40-54 [facility] Hemoglobin measurementOrdere d By: Ed Parada on 02-14-2025 Hemoglobin (Bld) [Mass/Vol] 8.2 g/dL Low 13.0-16.5 [facility] Immature granulocytes/100 WB C Auto (Bld)Ordered By: [facility] on 02-14-2025 Immature granulocytes/100 WBC (Bld) 0.700 % 0.0-0.9 [facility] Comment on above: IG% - Immature Granu locytes (promyelocytes, myelocytes and metamyelocytes) > 1% indicates that a LEFT SHIFT is Present. Laboratory - Chemistry and C hemistry - challengeOrdered By: [facility] on 02-14-2025 AST [Catalytic activity/Vol] 27 U/L <38 [facility] MCV (mean corpuscular volume ) determinationOrdered By: [facility] on 02-14-2025 MCV (RBC) [Entitic vol] 89.7 fL 80-94 [facility] Magnesiumon 02-14-2025 Magnesium [Mass/Vol] 2.7 mg/dL High 1.5-2.2 [facility] Comment on above: Performed By: #### M 100.2900, M100.4001, L001.0705, L504.0250, L200.0200, L350.1000, M100.2000, L503.0300 #### [facility] Laboratory [address] [place], [address] Magnesium measurement (mass/ volume)Ordered By: [facility] on 02-14-2025 Magnesium (Unsp spec) [Mass/Vol] 2.7 mg/dL High 1.5-2.2 [facility] Mean corpuscular hemoglobin (MCH) determinationOrdered By: [facility] on 02-14-2025 MCH (RBC) [Entitic mass] 29.2 pg 27.0-32.0 [facility] Mean corpuscular hemoglobin concentration (MCHC) determinationOrdered By: Ed Parada on 02-14-2025 MCHC (RBC) [Mass/Vol] 32.5 g/dL 32-36 [facility] Mean platelet volume determi nationOrdered By: Ed Parada on 02-14-2025 Platelet mean volume (Bld) [Entitic vol] 9.8 fL 6.2-12.0 [facility] Monocyte percentageOrdered B y: Ed Parada on 02-14-2025 Monocytes/100 WBC (Bld) 7.3 % 0-10 [facility] Neutrophil percentageOrdered By: Ed Parada on 02-14-2025 Neutrophils/100 WBC (Bld) 84.5 % High 47-70 [facility] No Panel InformationOrdered By: Ed Parada on 02-14-2025 27 U/L <38 [facility] Nucleated red blood cell per centageOrdered By: Ed Parada on 02-14-2025 Nucleated RBC/100 WBC (Bld) [Ratio] 0 % 0-5 [facility] Platelet countOrdered By: Primo Parada on 02-14-2025 Platelets (Bld) [#/Vol] 417 10*3/uL 150-450 [facility] Potassium measurement (mass/ volume)Ordered By: Ed Parada on 02-14-2025 Potassium (Unsp spec) [Mass/Vol] 4.8 mmol/L 3.3-5.1 [facility] RBC Auto (Bld) [#/Vol]Ordere d By: Ed Parada on 02-14-2025 RBC (Bld) [#/Vol] 2.81 10*6/uL Low 4.6-6.2 [facility] Serum creatinine measurement (mass/volume)Ordered By: Ed Parada on 02-14-2025 Creatinine [Mass/Vol] 2.89 mg/dL High 0.70-1.20 [facility] Serum globulin measurementOr dered By: Ed Parada on 02-14-2025 Globulin (S) [Mass/Vol] 3.8 g/dL 2.2-4.2 [facility] Serum glucose measurement (m ass/volume)Ordered By: Ed Parada on 02-14-2025 Glucose [Mass/Vol] 131 mg/dL High 70-99 [facility] Serum or plasma alanine keen otransferase (ALT) measurementOrdered By: Ed Parada on 02-14-2025 ALT [Catalytic activity/Vol] 22 U/L <47 [facility] Serum or plasma albumin emma urement (mass/volume)Ordered By: Ed Hernandez on 02-14-2025 Albumin [Mass/Vol] 3.5 g/dL 3.4-4.8 [facility] Serum or plasma albumin/glob ulin mass ratioOrdered By: Ed Parada on 02-14-2025 Albumin/Globulin [Mass ratio] 0.9 {ratio} 0.9-2.4 [facility] Serum or plasma alkaline david sphatase measurementOrdered By: Ed Parada on 02-14-2025 ALP [Catalytic activity/Vol] 100 U/L 40-129 [facility] Serum or plasma calcium emma urement (mass/volume)Ordered By: Ed Hernandez on 02-14-2025 Calcium [Mass/Vol] 12.5 mg/dL High 7.6-11.0 [facility] Serum or plasma urea nitroge n measurement (mass/volume)Ordered By: Ed Parada on 02-14-2025 Urea nitrogen [Mass/Vol] 61 mg/dL High 4-19 [facility] Sodium levelOrdered By: Nic Parada on 02-14-2025 Sodium [Moles/Vol] 133 mmol/L 133-145 [facility] Total proteinOrdered By: Mook Parada on 02-14-2025 Protein [Mass/Vol] 7.2 g/dL 5.9-8.4 [facility] White blood cell (WBC) count Ordered By: Ed Parada on 02-14-2025 WBC (Bld) [#/Vol] 10.0 10*3/uL 4.4-11.0 [facility] MISC PATH SENDOUT (SENDOUT)o n 02-11-2025 [facility] MISCELLANEOUS LAB TEST RESULT Normal [facility] Comment on above: Result Comment: DUNIA Monge COMMENTS: Results are attached to the pathology report, case # [id number]. See scan in [employer]. Performed By: #### L [id number] ####Superintendent Pier: ADITYA ESCALERA ([phone])[facility])[address] [place] [address] [id number] 02-10-2025 [id number] Discussed Home Care Services available to patient post DC from the hospital. Educated the patient on the services that are provided, objective of home care, and reason for the services. The patient politely refused the home care services. The patient was educated that should any needs arise post DC to follow up with their PCP. The patient was able to verbalize understanding. Home care to sign off. Please re-consult should any other needs arise prior to DC. Normal [facility] BASIC METABOLIC PANELon 01-31 Anion gap [Moles/Vol] 11 mmol/L Normal 3-13 [facility] Comment on above: Performed By: #### L [id number] ####Superintendent Pier: ADITYA ESCALERA ([phone])[facility] ([facility])[address] [place] [address] Calcium [Mass/Vol] 10.7 mg/dL High 8.8-10.0 [facility] Comment on above: Performed By: #### L AB15 ####Superintendent Pier: ADITYA ESCALERA ([phone])[facility])[address] [place] [address] Chloride [Moles/Vol] 104 mmol/L Normal 98-107 [facility] Comment on above: Performed By: #### L AB15 ####Superintendent Pier: ADITYA ESCALERA ([phone])[facility])[address] [place] [address] CO2 [Moles/Vol] 21 mmol/L Low 23-31 [facility] Comment on above: Performed By: #### L AB15 ####Superintendent Pier: ADITYA ESCALERA ([phone])[facility])[address] [place] [address] Creatinine [Mass/Vol] 3.36 mg/dL High 0.72-1.25 [facility] Comment on above: Performed By: #### L AB15 ####Superintendent Pier: ADITYA ESCALERA ([phone])[facility])[address] [place] [address] GLOMERULAR FILTRATION RATE ML/MIN/1.73 SQ M.PREDICTED 17.7 mL/min/1.73m*2 Low >60.0 [facility] Comment on above: Result Comment: Calc ulation based on the Chronic Kidney Disease Epidemiology Collaboration (CKD-EPI) equation refit without adjustment for race Performed By: #### L AB15 ####Superintendent Pier: ADITYA ESCALERA ([phone])[facility])[address] [place] [address] Glucose [Mass/Vol] 122 mg/dL High 82-115 [facility] Comment on above: Performed By: #### L AB15 ####Superintendent Pier: ADITYA ESCALERA ([phone])[facility])[address] [place] [address] Potassium [Moles/Vol] 4.5 mmol/L Normal 3.5-5.1 [facility] Comment on above: Result Comment: [facility] potassium values may be up to 0.5 mmol/L lower than serum values. Performed By: #### L AB15 ####Superintendent Pier: ADITYA ESCALERA ([phone])[facility])[address] [place] [address] Sodium [Moles/Vol] 136 mmol/L Normal 136-145 [facility] Comment on above: Performed By: #### L AB15 ####Superintendent Pier: ADITYA ESCALERA ([phone])[address] Urea nitrogen [Mass/Vol] 64 mg/dL High 9-23 [facility] Comment on above: Performed By: #### L AB15 ####Superintendent Pier: ADITYA ESCALERA ([id number])[address] Basic metabolic 1998 panelon 02-10-2025 Anion gap [Moles/Vol] 11 mmol/L 3 - 13 mmol/L [facility] Calcium [Mass/Vol] 10.7 mg/dL High 8.8 - 10. 0 mg/dL [facility] Chloride [Moles/Vol] 104 mmol/L 98 - 10 7 mmol/L [facility] CO2 [Moles/Vol] 21 mmol/L Low 23 - 31 mmol/L [facility] Creatinine [Mass/Vol] 3.36 mg/dL High 0.72 - 1.25 mg/dL [facility] GFR/1.73 sq M.predicted (S/P/Bld) [Vol rate/Area] 17.7 mL/min Low - PINF [facility] Comment on above: Calculation based on the Chronic Kidney Disease Epidemiology Collaboration (CKD-EPI) equation refit without adjustment for race Glucose [Mass/Vol] 122 mg/dL High 82 - 115 mg/dL [facility] Interpretation and review of laboratory results Abnormal [facility] Potassium [Moles/Vol] 4.5 mmol/L 3.5 - 5.1 mmol/L [facility] Comment on above: Plasma potassium silvano ues may be up to 0.5 mmol/L lower than serum values. Sodium [Moles/Vol] 136 mmol/L 136 - 145 mmol/L [facility] Urea nitrogen [Mass/Vol] 64 mg/dL High 9 - 23 mg/dL [facility] CBC (HEMOGRAM)on 02-10-2025 Erythrocyte distribution width (RBC) [Ratio] 14.5 % Normal 11.5-15.0 [facility] Comment on above: Performed By: #### L [id number] ####Superintendent Pier: ADITYA ESCALERA ([id number])[facility] ([facility])[address] [place] [address] Hematocrit (Bld) [Volume fraction] 24.2 % Low 40.0-52.0 [facility] Comment on above: Performed By: #### L [id number] ####Superintendent Pier: ADITYA ESCALERA ([phone])[facility])[address] [place] [address] Hemoglobin (Bld) [Mass/Vol] 7.9 g/dL Low 13.0-18.0 [facility] Comment on above: Performed By: #### L [id number] ####Superintendent Pier: ADITYA ESCALERA ([id number])[facility])[address] [place] [address] MCH (RBC) [Entitic mass] 29.5 pg Normal 26.0-34.0 [facility] Comment on above: Performed By: #### L [id number] ####Superintendent Pier: ADITYA ESCALERA ([phone])[facility] ([facility])[address] [place] [address] MCHC 32.6 % Normal 30.5-36.0 [facility] Comment on above: Performed By: #### L [id number] ####Superintendent Pier: ADITYA ESCALERA ([phone])[facility])[address] [place] [address] MCV (RBC) [Entitic vol] 90.3 fL Normal 77.0-99.0 [facility] Comment on above: Performed By: #### L [id number] ####Superintendent Pier: ADITYA ESCALERA ([phone])[facility])[address] [place] [address] Platelet mean volume (Bld) [Entitic vol] 9.8 fL Normal 9.0-12.7 [facility] Comment on above: Performed By: #### L [id number] ####Superintendent Pier: ADITYA ESCALERA ([phone])[facility] ([facility])[address] [place] [address] Platelets (Bld) [#/Vol] 354 10*3/uL Normal 140-440 [facility] Comment on above: Performed By: #### L [id number] ####Superintendent Pier: ADITYA ESCALERA ([id number])[facility])[address] [place] [address] RBC (Bld) [#/Vol] 2.68 10*6/uL Low 4.40-5.90 [facility] Comment on above: Performed By: #### L [id number] ####Superintendent Pier: ADITYA ESCALERA ([id number])[facility])[address] [place] [address] WBC (Bld) [#/Vol] 10.0 10*3/uL Normal 3.6-10.7 [facility] Comment on above: Performed By: #### L [id number] ####Superintendent Pier: ADITYA ESCALERA ([phone])[address] CBC panel Auto (Bld)on 02-10 Erythrocyte distribution width (RBC) [Ratio] 14.5 % 11.5 - 15.0 % [facility] Hematocrit (Bld) [Volume fraction] 24.2 % Low 40.0 - 52.0 % [facility] Hemoglobin (Bld) [Mass/Vol] 7.9 g/dL Low 13.0 - 18.0 g/dL [facility] Interpretation and review of laboratory results Abnormal [facility] MCH (RBC) [Entitic mass] 29.5 pg 26.0 - 34.0 pg [facility] MCHC (RBC) [Mass/Vol] 32.6 % 30.5 - 36.0 % [facility] MCV (RBC) [Entitic vol] 90.3 fL 77.0 - 99.0 fL [facility] Platelet mean volume (Bld) [Entitic vol] 9.8 fL 9.0 - 12.7 fL [facility] Platelets (Bld) [#/Vol] 354 10*3/uL 140 - 440 10*3/uL [facility] RBC (Bld) [#/Vol] 2.68 10*6/uL Low 4.40 - 5.9 0 10*6/uL [employer] WBC (Bld) [#/Vol] 10 10*3/uL 3.6 - 10.7 10*3/uL [employer] No Panel Informationon 02-10 Blood Expiration Date S Apex Guard Blood Expiration Date S [employer] Blood Expiration Date S [employer] Crossmatch interpretation COMP [employer] Dispense Status [employer]legetch [employer] Dispense Status Released from [employer] Product Blood Type 8400 [employer] Product Blood Type 6200 [employer] PRODUCT CODE [id number] [facility] ABO AB [facility] ABO A [facility] Number [id number] [facility] Number [id number] [facility] Number [id number] [facility] RH Positive [employer] Unit Volume 300 mL [employer] Progress Noteon 02-10-2025 Progress Note Physician Response Please review the following and provide your response below. Please clarify which of the following accurately describes the patient's condition: Large B-cell lymphoma of mediastinum This documentation will become part of the patient's medical record. Normal [facility] Progress Note Nutrition rescreen completed. Patient referred to the Dietitian. Involuntary weight loss. Normal [facility] Progress Note ----- ----- Attestation signed by Freddy Contreras DO at 02/10/2025 11:37 AM CARDIOTHORACIC SURGERY DOS: 02/10/25 POD # 2 VATS/thoracotomy mediastinal biopsy I personally performed a [id number] diagnostic evaluation on this patient I agree with the findings and plan of care as documented by the COREY or resident. There has been no change in the physical exam or findings unless otherwise noted below. Doing well. Not much activity yet. Will walk with nurse this morning. No respiratory complaints. Pathology pending. Ready for discharge A total of 15 minutes were spent between the [id number] encounter, physical exam, reviewing the medical history, coordinating care, counseling/educating the patient, ordering medications/test/procedur es, interpreting results and documenting in the patient's record on the day of the encounter. The patient was seen and examined independently and relevant data reviewed by myself. Lucero Contreras, DO TONY Cardiothoracic Surgery ----- Department of General Surgery CTS Service Daily Progress Note ADMIT DATE: 02/08/2025 TODAY'S DATE: 02/10/2025 SUBJECTIVE: No acute events overnight. Chest tube removed yesterday, no new shortness of breath. Pain is controlled on current medications. Denies nausea and vomiting. Denies fevers, chills, shortness of breath or chest pain. Has not ambulated yet. ROS: Noted above unless otherwise mentioned. OBJECTIVE: VITALS: Temp: [36.6 ?C (97.8 ?F)-36.7 ?C (98.1 ?F)] 36.6 ?C (97.8 ?F) Heart Rate: [77-108] 92 Resp: [12-20] 20 BP: (106-127)/(57-76) 106/68 Arterial Line BP 1: (118-147)/(52-101) 147/61 INTAKE/OUTPUT: Intake/Output Summary (Last 24 hours) at 02/10/2025 0832 Last data filed at 02/10/2025 0800 Gross per 24 hour Intake 780 ml Output 1425 ml Net -645 ml I/O last 3 completed shifts: In: 780 (12.2 mL/kg) [P.O.:780] Out: 2145 (33.5 mL/kg) [Urine:2050 (0.9 mL/kg/hr); Chest Tube:95] Weight: 64 kg I/O this shift: In: 240 [P.O.:240] Out: 125 [Urine:125] PHYSICAL EXAM: Gen: NAD, A&Ox3, pain well controlled Heart: RRR, well perfused. Lungs: Symmetric chest rise, normal work of breathing, no respiratory distress. On room air. Incisions appear C/D/I. Abd: Soft, non-tender, non-distended. Ext: Non-edematous, non-erythematous, no tenderness. Skin: Warm, dry, well perfused, no obvious rashes, cellulitis or gross discoloration LABS CBC: Auto WBC Date Value Ref Range Status 02/10/2025 10.0 3.6 - 10.7 10*3/uL Final 02/09/2025 12.3 (H) 3.6 - 10.7 10*3/uL Final 02/09/2025 12.7 (H) 3.6 - 10.7 10*3/uL Final Hemoglobin Date Value Ref Range Status 02/10/2025 7.9 (L) 13.0 - 18.0 g/dL Final 02/09/2025 7.4 (L) 13.0 - 18.0 g/dL Final 02/09/2025 7.6 (L) 13.0 - 18.0 g/dL Final Platelets Date Value Ref Range Status 02/10/2025 354 140 - 440 10*3/uL Final 02/09/2025 370 140 - 440 10*3/uL Final 02/09/2025 384 140 - 440 10*3/uL Final BMP: SODIUM Date Value Ref Range Status 02/10/2025 136 136 - 145 mmol/L Final 02/09/2025 131 (L) 136 - 145 mmol/L Final 02/09/2025 133 (L) 136 - 145 mmol/L Final POTASSIUM Date Value Ref Range Status 02/10/2025 4.5 3.5 - 5.1 mmol/L Final Comment: Plasma potassium values may be up to 0.5 mmol/L lower than serum values. 02/09/2025 5.1 3.5 - 5.1 mmol/L Final Comment: Plasma potassium values may be up to 0.5 mmol/L lower than serum values. 02/09/2025 4.9 3.5 - 5.1 mmol/L Final Comment: Plasma potassium values may be up to 0.5 mmol/L lower than serum values. CHLORIDE Date Value Ref Range Status 02/10/2025 104 98 - 107 mmol/L Final 02/09/2025 103 98 - 107 mmol/L Final 02/09/2025 102 98 - 107 mmol/L Final CARBON DIOXIDE Date Value Ref Range Status 02/10/2025 21 (L) 23 - 31 mmol/L Final 02/09/2025 19 (L) 23 - 31 mmol/L Final 02/09/2025 16 (L) 23 - 31 mmol/L Final UREA NITROGEN Date Value Ref Range Status 02/10/2025 64 (H) 9 - 23 mg/dL Final 02/09/2025 69 (H) 9 - 23 mg/dL Final 02/09/2025 69 (H) 9 - 23 mg/dL Final CREATININE Date Value Ref Range Status 02/10/2025 3.36 (H) 0.72 - 1.25 mg/dL Final 02/09/2025 3.24 (H) 0.72 - 1.25 mg/dL Final 02/09/2025 3.34 (H) 0.72 - 1.25 mg/dL Final Hepatic: No results found for: AST, ALT, ALBUMIN, BILITOT, BILIDIR, ALKPHOS Current Inpatient Medications Scheduled Meds:Scheduled Meds[1] Continuous Infusions:Continuous Meds[2] PRN Meds:PRN Meds[3] ASSESSMENT: 79 y.o. male s/p thoracotomy for mediastinal mass biopsy with Dr. Contreras on 02/08/2025 PLAN: - Doing well postoperatively - Out of bed today - Diet: Regular - Pain and nausea medications PRN - OOBA - DVT ppx with SCD's - Dispo: Home today DW Dr. Ben Goncalves MD General Surgery PGY-3 Pager [phone] [1] acetaminophen, 1,000 mg, Oral, 3 times per day ipratropium-albut (more content not included)... Normal [facility] BASIC METABOLIC PANELon 01-31 Anion gap [Moles/Vol] 9 mmol/L Normal 3-13 [facility] Comment on above: Performed By: #### L AB15 ####Superintendent Pier: ADITYA ESCALERA ([id number])[facility] ([facility] Calcium [Mass/Vol] 10.0 mg/dL Normal 8.8-10.0 [facility] Comment on above: Performed By: #### L AB15 ####Superintendent Pier: ADITYA ESCALERA ([phone])[facility] ([facility])[address] [place] [address] Chloride [Moles/Vol] 103 mmol/L Normal 98-107 [facility] Comment on above: Performed By: #### L AB15 ####Superintendent Pier: ADITYA ESCALERA ([id number])[facility] ([facility])[address] [place] [address] CO2 [Moles/Vol] 19 mmol/L Low 23-31 [facility] Comment on above: Performed By: #### L AB15 ####Superintendent Pier: ADITYA ESCALERA ([id number])[facility] ([facility])[address] [place] [address] Creatinine [Mass/Vol] 3.24 mg/dL High 0.72-1.25 [facility] Comment on above: Performed By: #### L AB15 ####Superintendent Pier: ADITYA ESCALERA ([id number])[facility] ([facility])[address] [place] [address] GLOMERULAR FILTRATION RATE ML/MIN/1.73 SQ M.PREDICTED 18.4 mL/min/1.73m*2 Low >60.0 [facility] Comment on above: Result Comment: Calc ulation based on the Chronic Kidney Disease Epidemiology Collaboration (CKD-EPI) equation refit without adjustment for race Performed By: #### L AB15 ####Superintendent Pier: ADITYA ESCALERA ([id number])[facility] ([facility])[address] [place] [address] [place] Glucose [Mass/Vol] 114 mg/dL Normal 82-115 [facility] Comment on above: Performed By: #### L AB15 ####Superintendent Pier: ADITYA ESCALERA ([id number])[facility] ([facility])[address] [place] [address] [place] Potassium [Moles/Vol] 5.1 mmol/L Normal 3.5-5.1 [facility] Comment on above: Result Comment: [facility] potassium values may be up to 0.5 mmol/L lower than serum values. Performed By: #### L AB15 ####Superintendent Pier: ADITYA ESCALERA ([id number])[facility] [place] [address] Sodium [Moles/Vol] 131 mmol/L Low 136-145 [facility] Comment on above: Performed By: #### L AB15 ####Superintendent Pier: ADITYA ESCALERA ([id number])[facility] ([facility])[address] [place] [address] Urea nitrogen [Mass/Vol] 69 mg/dL High 9-23 [facility] Comment on above: Performed By: #### L AB15 ####Superintendent Pier: ADITYA ESCALERA ([phone])[facility] ([facility])[address] [place] [address] Anion gap [Moles/Vol] 15 mmol/L High 3-13 [facility] Comment on above: Performed By: #### L AB15 #### Superintendent Pier: ADITYA ESCALERA ([id number]) [facility] ([facility]) [address] [place] [address] Calcium [Mass/Vol] 10.5 mg/dL High 8.8-10.0 [facility] Comment on above: Performed By: #### L AB15 #### Superintendent Pier: ADITYA ESCALERA ([id number]) [facility]) [address] [place] [address] Chloride [Moles/Vol] 102 mmol/L Normal 98-107 [facility] Comment on above: Performed By: #### L AB15 #### Superintendent Pier: ADITYA ESCALERA ([id number]) [facility]) [address] [place] [address] CO2 [Moles/Vol] 16 mmol/L Low 23-31 [facility] Comment on above: Performed By: #### L AB15 #### Superintendent Pier: ADITYA [id number]) [facility] [address] [place] [address] [place] Creatinine [Mass/Vol] 3.34 mg/dL High 0.72-1.25 [facility] Comment on above: Performed By: #### L AB15 #### Superintendent Pier: ADITYA ESCALERA ([phone]) [facility] [address] [place] [address] [place] GLOMERULAR FILTRATION RATE ML/MIN/1.73 SQ M.PREDICTED 17.8 mL/min/1.73m*2 Low >60.0 [facility] Comment on above: Result Comment: Calc ulation based on the Chronic Kidney Disease Epidemiology Collaboration (CKD-EPI) equation refit without adjustment for race Performed By: #### L AB15 #### Superintendent Pier: ADITYA ESCALERA ([id number]) [facility] ([facility]) [address] [place] [address] [place] Glucose [Mass/Vol] 124 mg/dL High 82-115 [facility] Comment on above: Performed By: #### L AB15 #### Superintendent Pier: ADITYA ESCALERA ([id number]) [facility] ([facility]) [address] [place] [address] [place] Potassium [Moles/Vol] 4.9 mmol/L Normal 3.5-5.1 [facility] Comment on above: Result Comment: [facility] potassium values may be up to 0.5 mmol/L lower than serum values. Performed By: #### L AB15 #### Superintendent Pier: ADITYA ESCALERA ([id number]) [facility] [address] [place] [address] [place] Sodium [Moles/Vol] 133 mmol/L Low 136-145 [facility] Comment on above: Performed By: #### L AB15 #### Superintendent Pier: ADITYA ESCALERA ([id number]) [facility] ([facility]) [address] [place] [address] [place] Urea nitrogen [Mass/Vol] 69 mg/dL High 9-23 [facility] Comment on above: Performed By: #### L AB15 #### Superintendent Pier: ADITYA ESCALERA ([id number]) [facility] ([facility]) [address] [place] [address] Basic metabolic 1998 panelon 02-09-2025 Anion gap [Moles/Vol] 9 mmol/L 3 - 13 mmol/L [facility] Calcium [Mass/Vol] 10 mg/dL 8.8 - 10. 0 mg/dL [facility] Chloride [Moles/Vol] 103 mmol/L 98 - 10 7 mmol/L [facility] CO2 [Moles/Vol] 19 mmol/L Low 23 - 31 mmol/L [facility] Creatinine [Mass/Vol] 3.24 mg/dL High 0.72 - 1.25 mg/dL [facility] GFR/1.73 sq M.predicted (S/P/Bld) [Vol rate/Area] 18.4 mL/min Low - PINF [facility] Comment on above: Calculation based on the Chronic Kidney Disease Epidemiology Collaboration (CKD-EPI) equation refit without adjustment for race Glucose [Mass/Vol] 114 mg/dL 82 - 115 mg/dL [facility] Interpretation and review of laboratory results Abnormal [facility] Potassium [Moles/Vol] 5.1 mmol/L 3.5 - 5.1 mmol/L [facility] Comment on above: Plasma potassium silvano ues may be up to 0.5 mmol/L lower than serum values. Sodium [Moles/Vol] 131 mmol/L Low 136 - 145 mmol/L [facility] Urea nitrogen [Mass/Vol] 69 mg/dL High 9 - 23 mg/dL [facility] Anion gap [Moles/Vol] 15 mmol/L High 3 - 13 mmol/L [facility] Calcium [Mass/Vol] 10.5 mg/dL High 8.8 - 10. 0 mg/dL [facility] Chloride [Moles/Vol] 102 mmol/L 98 - 10 7 mmol/L [facility] CO2 [Moles/Vol] 16 mmol/L Low 23 - 31 mmol/L [facility] Creatinine [Mass/Vol] 3.34 mg/dL High 0.72 - 1.25 mg/dL [facility] GFR/1.73 sq M.predicted (S/P/Bld) [Vol rate/Area] 17.8 mL/min Low - PINF [facility] Comment on above: Calculation based on the Chronic Kidney Disease Epidemiology Collaboration (CKD-EPI) equation refit without adjustment for race Glucose [Mass/Vol] 124 mg/dL High 82 - 115 mg/dL [facility] Interpretation and review of laboratory results Abnormal [facility] Potassium [Moles/Vol] 4.9 mmol/L 3.5 - 5.1 mmol/L [facility] Comment on above: Plasma potassium silvano ues may be up to 0.5 mmol/L lower than serum values. Sodium [Moles/Vol] 133 mmol/L Low 136 - 145 mmol/L [facility] Urea nitrogen [Mass/Vol] 69 mg/dL High 9 - 23 mg/dL [facility] CBC (HEMOGRAM)on 02-09-2025 Erythrocyte distribution width (RBC) [Ratio] 13.9 % Normal 11.5-15.0 [facility] Comment on above: Performed By: #### L [id number] ####Superintendent Pier: ADITYA ESCALERA ([phone])[facility])[address] [place] [address] Hematocrit (Bld) [Volume fraction] 22.5 % Low 40.0-52.0 [facility] Comment on above: Performed By: #### L [id number] ####Superintendent Pier: ADITYA ESCALERA ([id number])[address] Hemoglobin (Bld) [Mass/Vol] 7.4 g/dL Low 13.0-18.0 [facility] Comment on above: Performed By: #### L [id number] ####Superintendent Pier: ADITYA ESCALERA ([phone])[facility])[address] [place] [address] MCH (RBC) [Entitic mass] 29.1 pg Normal 26.0-34.0 [facility] Comment on above: Performed By: #### L [id number] ####Superintendent Pier: ADITYA ESCALERA ([phone])[facility])[address] [place] [address] MCHC 32.9 % Normal 30.5-36.0 [facility] Comment on above: Performed By: #### L [id number] ####Superintendent Pier: ADITYA ESCALERA ([id number])[facility] ([facility])[address] [place] [address] MCV (RBC) [Entitic vol] 88.6 fL Normal 77.0-99.0 [facility] Comment on above: Performed By: #### L [id number] ####Superintendent Pier: ADITYA ESCALERA ([id number])[facility] ([facility])[address] [place] [address] Platelet mean volume (Bld) [Entitic vol] 10.0 fL Normal 9.0-12.7 [facility] [facility] Comment on above: Performed By: #### L [id number] ####Superintendent Pier: ADITYA ESCALERA ([phone])[facility] ([facility])[address] [place] [address] Platelets (Bld) [#/Vol] 370 10*3/uL Normal 140-440 [facility] Comment on above: Performed By: #### L [id number] ####Superintendent Pier: ADITYA ESCALERA ([phone])[facility] ([facility])[address] [place] [address] RBC (Bld) [#/Vol] 2.54 10*6/uL Low 4.40-5.90 [facility] Comment on above: Performed By: #### L [id number] ####Superintendent Pier: ADITYA ESCALERA ([phone])[facility] ([facility])[address] [place] [address] WBC (Bld) [#/Vol] 12.3 10*3/uL High 3.6-10.7 [facility] Comment on above: Performed By: #### L [id number] ####Superintendent Pier: ADITYA ESCALERA ([phone])[facility])[address] [place] [address] Erythrocyte distribution width (RBC) [Ratio] 13.7 % Normal 11.5-15.0 [facility] Comment on above: Performed By: #### L [id number] ####Superintendent Pier: ADITYA [id number])[facility] ([facility])[address] [place] [address] Hematocrit (Bld) [Volume fraction] 22.9 % Low 40.0-52.0 [facility] Comment on above: Performed By: #### L [id number] ####Superintendent Pier: ADITYA ESCALERA ([phone])[facility])[address] [place] [address] Hemoglobin (Bld) [Mass/Vol] 7.6 g/dL Low 13.0-18.0 [facility] Comment on above: Performed By: #### L [id number] ####Superintendent Pier: ADITYA ESCALERA ([phone])[facility])[address] [place] [address] MCH (RBC) [Entitic mass] 29.3 pg Normal 26.0-34.0 [facility] Comment on above: Performed By: #### L [id number] ####Superintendent Pier: ADITYA ESCALERA ([phone])[facility] ([facility])[address] [place] [address] MCHC 33.2 % Normal 30.5-36.0 [facility] Comment on above: Performed By: #### L AB294 ####Superintendent Pier: ADITYA ESCALERA ([phone])[facility] ([facility])[address] [place] [address] MCV (RBC) [Entitic vol] 88.4 fL Normal 77.0-99.0 [facility] Comment on above: Performed By: #### L [id number] ####Superintendent Pier: ADITYA ESCALERA ([phone])[facility])[address] [place] [address] Platelet mean volume (Bld) [Entitic vol] 9.8 fL Normal 9.0-12.7 [facility] Comment on above: Performed By: #### L [id number] ####Superintendent Pier: ADITYA ESCALERA ([phone])[facility])[address] [place] [address] Platelets (Bld) [#/Vol] 384 10*3/uL Normal 140-440 [facility] Comment on above: Performed By: #### L [id number] ####Superintendent Pier: ADITYA ESCALERA ([phone])[facility])[address] [place] [address] RBC (Bld) [#/Vol] 2.59 10*6/uL Low 4.40-5.90 [facility] Comment on above: Performed By: #### L AB294 ####Superintendent Pier: ADITYA ESCALERA ([phone])[facility])[address] [place] [address] WBC (Bld) [#/Vol] 12.7 10*3/uL High 3.6-10.7 [facility] Comment on above: Performed By: #### L [id number] ####Superintendent Pier: ADITYA ESCALERA ([phone])[facility])[address] [place] [address] CBC panel Auto (Bld)on 02-09 Erythrocyte distribution width (RBC) [Ratio] 13.9 % 11.5 - 15.0 % [facility] Hematocrit (Bld) [Volume fraction] 22.5 % Low 40.0 - 52.0 % [facility] Hemoglobin (Bld) [Mass/Vol] 7.4 g/dL Low 13.0 - 18.0 g/dL [facility] Interpretation and review of laboratory results Abnormal [facility] MCH (RBC) [Entitic mass] 29.1 pg 26.0 - 34.0 pg [facility] MCHC (RBC) [Mass/Vol] 32.9 % 30.5 - 36.0 % [facility] MCV (RBC) [Entitic vol] 88.6 fL 77.0 - 99.0 fL [facility] Platelet mean volume (Bld) [Entitic vol] 10 fL 9.0 - 12.7 fL [facility] Platelets (Bld) [#/Vol] 370 10*3/uL 140 - 440 10*3/uL [facility] RBC (Bld) [#/Vol] 2.54 10*6/uL Low 4.40 - 5.9 0 10*6/uL [facility] WBC (Bld) [#/Vol] 12.3 10*3/uL High 3.6 - 10.7 10*3/uL [facility] Erythrocyte distribution width (RBC) [Ratio] 13.7 % 11.5 - 15.0 % [facility] Hematocrit (Bld) [Volume fraction] 22.9 % Low 40.0 - 52.0 % [facility] Hemoglobin (Bld) [Mass/Vol] 7.6 g/dL Low 13.0 - 18.0 g/dL [facility] Interpretation and review of laboratory results Abnormal [facility] MCH (RBC) [Entitic mass] 29.3 pg 26.0 - 34.0 pg [facility] MCHC (RBC) [Mass/Vol] 33.2 % 30.5 - 36.0 % [facility] MCV (RBC) [Entitic vol] 88.4 fL 77.0 - 99.0 fL [facility] Platelet mean volume (Bld) [Entitic vol] 9.8 fL 9.0 - 12.7 fL [facility] Platelets (Bld) [#/Vol] 384 10*3/uL 140 - 440 10*3/uL [facility] RBC (Bld) [#/Vol] 2.59 10*6/uL Low 4.40 - 5.9 0 10*6/uL [facility] WBC (Bld) [#/Vol] 12.7 10*3/uL High 3.6 - 10.7 10*3/uL [facility] No Panel InformationOrdered By: Shanna Smith on 02-09-2025 Case Report Non-Gynecologic Cyto logy Case: [id number] Authorizing Provider: Freddy Contreras DO Collected: 02/08/2025 0833 Ordering Location: [facility] OR Received: 02/08/2025 1355 Pathologist: Shanna Smith MD Specimen: Pleural Cavity, Left [facility] Work Phone: Case Screening Location [facility], [address] [place] [address]; CLIA: [id number]; Joint Commission: HCO [id number]; CAP: [id number] [facility] Work Phone: Comment l4rzmYObHEVtuTAxBSSi MVxhb sBcEJAhaBDyE5NvwezxIAepJC 0sTD8zsHedlBQhjLXpPQAsGsG kl0ieo222nVXem3gfQQIINUnn HPGOORz8uOhkR60cw9M3RgigQ 50amUHiTWV6BXNiWAVmoCGlGU NzXAN1PHMzbOJeJ2ibMVVaRR2 fccgkWDbkPXdqOAPlqIL4UUEb mOKyV1MuNSAyYUzlPHPjdiw8M dBgGx7uyDWvhYpqMWxtSTJwSE IvVIfbKBDmChJfVACAOWBFF30 BTCBTVVJHSUNBTCBDQVNFUyBF OTrNMDKHJ0FtUXlOKtCNZA2EU FTHPVQtO0AvC1LUJhtBXAYeUK pdROSkCn8xWTDqoDdtkTwfdWR mZBxuR09rokFxU9XchJPzlIDd sdPvRyyrWE1rLVytHOVaTCLuk uRabDP3PAI1zGRlTRcur1ZzsF 5ojRsrsP6orONsDX7sCYmvtOP cd2VmWQ6lzJfhwTQhSserMEet U3KpYVCRInUeApRzKdUxKrzsB XJ9 [facility] Work Phone: Disclaimer b1gshMJbVJEjvLMnJxPl MDAwX IIch2oxQTRwhFMtVbNtNzGtOf KfPxcbwOVdRPUuCePku4fay71 8dMCjh4wmSLCdStG6qYIgADAu P29iWKBQT418YQIsEVqgc6zsl 9HgRSAyiPHfb8T6MLDWTOdeFL JOEJz2qTyoE16xs9Z6QszqA7h zMBIbFPStQ2OtON0yKHObJtg6 SNH7OFX4CSMdLPWoL0MkJP5sE QAvbNJtUUw0a5wvmYdtMHTxXZ O3r8wwJOpjseXdOP8nki2grJq 3t0yjkaVyJOVhDYNliJLBGXPi H8OrwEytYa3rnWy7hQbeXmahD RX3Tpl1OR8ydh94hln5wJulHX XszlcbQeP7UInjMYVaejocHQi 2JEsuZTYpbDC7FIJxjAYcJ0Fd GGHuCL6xmrr6BGR0VQbbPCOgQ kY5XVRflJGoYIJwrVgyPLaxv3 58OMO1TwXhZB2rR7Sbg1K5uJ8 fkKYkKBJikVTlGiQkNPPqij5t vUAyUJrao4YbAFW7qrY4lDXwt HIjEWMuUQ69Zwcdh0DfYusoGO U1YLFczgMrv5Zgs2aiQgXqxhD mG0chC6TdTRTkQPLrSVCmEzPi irVus7Tgn8NcsSGpxBi5y9wdY HUnNOXdqAqun9luRZO7FFVqA6 H8zYOct2ekPJbeUCDuwIM8kwP 9ENNeuGRcO5DijX9aYPCmDB2m nuf7a7biFJN7VVhkLBHkJhR8m uG5JHVyxQLjQMVnrXyzZQzzf8 67QOT8SmKkPZHuw1PqG0UhvMh xY42wqWdiI14xMHWiiUxpxI8o vVfkiB3iPnRaDrZzLZgzsSrnc MBxweqkRRpeigX2QHolugomZH ZzVImhN2vaMyDmZDNrdHbcQCk nv2HfYGMsFJRhYAZyEJxuO6qf vY4sgfjhHBfpLOIexWnwb0okH sYqdNR4MF3esvUlSDOsbGsfjh W4bmEgcQdkjX5sbQ5sfZehbT4 acTJfyKA3vqjiJTeqHEUfkHDi wEwycdeilWxtgLttevaknN5qW SG4xNMtYFM5xWPnCOBtFYMkDW LdfC50rc3ioAQnvdKvS8NnY1X yvKOipLmfBvzpkIBmkAIgSe9w yFToBR7cCMCiyHTsO7UeEU6lD HBhclxwYXIgVGhlIHVzZSBvZi GutaDtu7EahX0rHLBsHPMhUG7 9ofNmbuC8mJBvEIRrfvQjgPQo dHMgaXMgcmVndWxhdGVkIGFzI QGqHPUbCAh9tKKfo8CzR1svaV DftmOdJ7HelJJhCSLGLK2fNTt im3CitMPeeBYgg0HaZVKkZIPq aH2oQLDlWB1sTLCrMGulRQMfc lCqnx5delQkGVBjJILkT6Kzhj gmlLkiepFvOXHxfr8fbkKwUZT 5IHRoZSBjbGluaWNhbCBsYWJv zfR8u6PpNPYla0ZhA9AmzGEtO FYipNQtNPR8a4PokN1nMSquqX ElWMUaBK8pnNYzSHQnJPXnJRB lGHPxTbyhdZxcPYBBMGOna2Ib EN2iYNHxjCuqFSWgyE6pe4WcK EMpj05kUYAKDMeyVKFmDXNBBI EgaGFzIGRldGVybWluZWQgdGh hxSVtfGHaKUXsOJSgJX2eQEVv rtCdhUHkw0ArhFCvptXmr4Ndo jIeELSqLOZ2NpJriRXzOANdjb UMiFlwjF6onB1qa2CmyJ7tJJg zpsJgtDRqCd2qqZRmMA1kNFGx cmFmZmluIGVtYmVkZGVkIHRpc 2R5OW5aDERdov2btiyucWWmnL 4ciPSmmwKxVT1vYB1yA1N6iWP iQGIoewTqr6guCIj9rEFuZSUx iPKlmYArLdimTMP9DAPqTYX0g oAeciYuJWYitHnggNG4hKMtRW BhHIOzTMZiXI25Z1Hnm6UrL9s hWC41BZQhZVLnRCMrplRbo7al TQZmz1ixVXFczXSgJ2WnQYXbq CSbmrdkGcSxZVM8GRDjSKM1dM CoTZDcS8NgpBUqiWJroV87NY8 lxQK3ZC7qKUO9QXldpP8jTnFM kR34rn6vgXB5w5DfMK3pS9FuQ EYab3F5jiKvWQSoKA5ddTIiDA VuIHZhbGlkYXRlZCBvbiBkZWN iuPBnGaecRQC8tQTfoGOmQuTP ZTJ5oEVzIQWmx9UkPYJhRELrk bEfbzOjEZXoRMK5pVYhXDShfL Ugu61gG9g1EP5voSkhLMZswBG uKPHqi0EseBNilWq7aPHaSoSz LRfdDPGcVUeptNd3cCN8YA3eQ FFjP7IcG4xnoUIgVCYwJQIrcD Wfqi5mrSMtaH== [facility] Work Phone: Gross Description b9zjoZBvPAHlzHSSJWCa MDRcY L7haVbgnRi8nWtuELUtanV8kT JzUOmxw8gvMWL5p9xhvyXCBrz aWPXcRE1fNTecUUVaDI6iLzDp XGRlZmYxXHBhcGVydzEyMjQwX HDdqKXuoDQ2EHSnZL0tioocSY nxIKugODOxnhG7EUCxzNBhJ3G lDUHaGV7kbbznDWV8LEGBOrnf Sk3vcTMaaGSCXunmNxBhIuMrW EJkBMGzQVUpj2gagsMCubsqzG n6HUa7RMKcBLQtcQYml8I7PRs cu7aan2UwP8Vjs8KhATx9pA2W AcnrD34wh7N7Lhd3GAQoNPr1W KjgYDXgGQLwJyv3MOn9Z9sdJF OnJPumBACrABnejOYrJLm2ZKp eo4CvcPUqXXg9LGzjGLLoC3Wf O5LiHExkGeFsLEhyHSMqCIRgF CuuBSAzB1CICTTzClm3JCY0Ga RwVVj2BFoeJcLKUBO8ODp6AJP 3RWi1TYHrAN6nQJvhcKDfMUea DujvTRacH501UIpzJOJkJ4FcG 3QgXFxzZyBcXGlkIDUxMDAyIF ecXPXeL9YNFPVrYan5GMN1FsD qUOk8MDhsG4ARMXOjNQU6TnY0 ALHoTgD5DMf0UDDEWm7sOAp9Z OY6XlLsHNR0TVo6RAalqwjpTD w5TWBkWSzpaxMmUWasXeczABb fY21wsEBvJFRISmgrcOLxizyi cGljTmVzdERvYzEgDQpcbHRyc VTsDO7KKGi0xaDyJAXlKTniuc UwESHfAKRNjWI1diZsCFCcmwd 1iNrkWJNkwPjbD9MuJOCgLRAk jzQECaggAU5RMLxbxt16AQU0b 8xzsDQqMUpvXuterBAyruA9DI kGGZIONTaZGiCaKI7iNMgVR6H XFHpSKxyhFIauOdC4YMlesFoz EpelbeTieAFlMrDNbY4rhB55Q Vc0HXIuDOhda0mmISGsTDvng3 CcVSpREDOPVH3GWG8asCS8MAr OQVWRLDuaQNrbMoS1NAjxsRbe WacobzNprQKxBdIUxL8trOopb L2qiDIfL2meBmBfZMIeMNFtg0 LsL9J2ZDDiAKmei1jmKDEgGKw ve7JyCXeGQTJBXG4ADH9psHL2 KBrYRETEX3cCdHLqXWXnJZxbs UQ5p9wceYXnv6f3HUbrFFL9qB 7aZE4xIXldSddugXZ2RNgfAqj suJ4hoXAPSMITOpzKMawtgaZa LJ7DQEQFQG3YzCViQOIcPOxob XV9d4gknJMmg9b5CSqjIAK4aR xwbGFpblxsdHJjaFxmczIwICB mbHVpZCByZWNlaXZlZCBccHJv yYJrwVzkWsrreDZ8HZkmTougu F9ksKOWJZXTVqvKQreteuOdQD 8ZLUXTKlBFFG48YSG1ULE4tJD 6G009XARbSMDdwPTrJKxgF596 wV9jZ8m9j9t3jVzrPsufnEL1P UnhVjhrtH0ccQYDIVSUKtnHBk zlgcMgXM6KZGAEKH8EuJUeFEO zJUaleCE4n1lfdBHgy9n5HAlf UNE4vRexsTFxsfmnfLGtbZhuh mSyHI4bFSRfitXNWefrZDWrYx BNYXRlcmlhbHMgUHJlcGFyZWQ 7UWTzRIRjUSOkJQXjrB8JgiNk PLAzGAAzNLEanReyTddvT1elz acayYCfGS9NCOErrdLLQikfId xmczIyXHBhciANClxzYTMwXGV alJAXp9TlKEWSOhr8OQ1EXMLc PVBiwBMESSS0MZ0tHTxjXJNgO 5DrX3IvzrZ1k6ayeXylh3DyeB FfTN7zxLNjQC5UHPBqoiQoCLy xtVrxmJ8vHBx1 [employer] Phone: Pathologist Interpretation Location [facility], [address] [place] [address]; CLIA: [id number]; Joint Commission: HCO [id number]; CAP: [phone] [facility] Phone: Pathology report final diagnosis Narrative y3vvzQDbGXNxeBYbIEDpXIxop rHfDLCnwLJcZ4QpndusAIqbUC 3pVP6fpViqpHEbmXCxQQBaUuV uc5obh162rBIzg5bxPCSOJBhu SUKXGFw1wDocZ12jg7S2MtvdD 7gdHKG2OFomowLotmj4LOQjeL J0AIs9CKUkjNIufpGzSjKlAKT hoIGvmEN9WVZjIW3vfpqsSOxo QRyeWWXdoeA1DTOvkETaH7RwW VMmXP2xbxvjMBU6GBkfILNrMH O4QtAaPWAgy5Pyibd7ZoZcmYY yZFxwbGFpblxmczIwXGNmMSBB MSLhNNFtNQCfITbrB1F7zMN3V RNUHKV5NO2dDn3paTZJbGTpYM pzD4k5y0smO8u6CVPeXUWfBZg pHLPrEFyQSNdLH5qCAPDqFB2G KTpVEwIMIAfuT8XLTCZHZB9NI lQuXHBhciAgXHBhcn0= [employer] Phone: [employer] Phone: Progress Noteon 02-09-2025 Progress Note ----- ----- Attestation signed by Freddy Contreras DO at 02/09/2025 3:36 PM CARDIOTHORACIC SURGERY DOS: 02/09/25 POD # 1 Mediastinal biopsy; mechanical pleurodesis I personally performed a ilzi-lq-gjev diagnostic evaluation on this patient I agree with the findings and plan of care as documented by the COREY or resident. There has been no change in the physical exam or findings unless otherwise noted below. He is doing well today. Not much activity yet. Chest tube with minimal serous output and no air leak. Will remove. CXR clear Pathology pending. Home soon. A total of 15 minutes were spent between the cnea-rl-icsu encounter, physical exam, reviewing the medical history, coordinating care, counseling/educating the patient, ordering medications/test/procedur es, interpreting results and documenting in the patient's record on the day of the encounter. The patient was seen and examined independently and relevant data reviewed by myself. Lucero Contreras DO [facility] Cardiothoracic Surgery ----- Department of General Surgery CTS Service Daily Progress Note ADMIT DATE: 02/08/2025 TODAY'S DATE: 02/09/2025 SUBJECTIVE: No acute events overnight. Pain is well controlled on current medications. Blood pressure is well controlled. Hemoglobin responded without need of blood products. Denies nausea and vomiting. Denies fevers, chills, shortness of breath or chest pain. ROS: Noted above unless otherwise mentioned. OBJECTIVE: VITALS: Temp: [35.3 ?C (95.6 ?F)-36.7 ?C (98.1 ?F)] 36.7 ?C (98.1 ?F) Heart Rate: [57-78] 77 Resp: [11-23] 13 BP: (88-116)/(42-57) 116/53 Arterial Line BP 1: (94-135)/(34-59) 118/59 INTAKE/OUTPUT: Intake/Output Summary (Last 24 hours) at 02/09/2025 0912 Last data filed at 02/09/2025 0759 Gross per 24 hour Intake 1404 ml Output 1230 ml Net 174 ml I/O last 3 completed shifts: In: 1404 (21.9 mL/kg) [I.V.:1404 (21.9 mL/kg)] Out: 940 (14.7 mL/kg) [Urine:500 (0.2 mL/kg/hr); Blood:250; Chest Tube:190] Weight: 64 kg I/O this shift: In: - Out: 290 [Urine:250; Chest Tube:40] PHYSICAL EXAM: Gen: NAD, A&Ox3, pain well controlled Heart: RRR, well perfused. Arterial line in place. Lungs: Symmetric chest rise, normal work of breathing, no respiratory distress. On room air. CT was to suction, no airleak, placed to water seal. Abd: Soft, non-tender, non-distended. Ext: Non-edematous, non-erythematous, no tenderness. Skin: Warm, dry, well perfused, no obvious rashes, cellulitis or gross discoloration LABS CBC: Auto WBC Date Value Ref Range Status 02/09/2025 12.3 (H) 3.6 - 10.7 10*3/uL Final 02/09/2025 12.7 (H) 3.6 - 10.7 10*3/uL Final 02/08/2025 12.4 (H) 3.6 - 10.7 10*3/uL Final Hemoglobin Date Value Ref Range Status 02/09/2025 7.4 (L) 13.0 - 18.0 g/dL Final 02/09/2025 7.6 (L) 13.0 - 18.0 g/dL Final 02/08/2025 7.1 (L) 13.0 - 18.0 g/dL Final Platelets Date Value Ref Range Status 02/09/2025 370 140 - 440 10*3/uL Final 02/09/2025 384 140 - 440 10*3/uL Final 02/08/2025 352 140 - 440 10*3/uL Final BMP: SODIUM Date Value Ref Range Status 02/09/2025 131 (L) 136 - 145 mmol/L Final 02/09/2025 133 (L) 136 - 145 mmol/L Final 02/08/2025 131 (L) 136 - 145 mmol/L Final POTASSIUM Date Value Ref Range Status 02/09/2025 5.1 3.5 - 5.1 mmol/L Final Comment: Plasma potassium values may be up to 0.5 mmol/L lower than serum values. 02/09/2025 4.9 3.5 - 5.1 mmol/L Final Comment: Plasma potassium values may be up to 0.5 mmol/L lower than serum values. 02/08/2025 5.1 3.5 - 5.1 mmol/L Final Comment: Plasma potassium values may be up to 0.5 mmol/L lower than serum values. CHLORIDE Date Value Ref Range Status 02/09/2025 103 98 - 107 mmol/L Final 02/09/2025 102 98 - 107 mmol/L Final 02/08/2025 103 98 - 107 mmol/L Final CARBON DIOXIDE Date Value Ref Range Status 02/09/2025 19 (L) 23 - 31 mmol/L Final 02/09/2025 16 (L) 23 - 31 mmol/L Final 02/08/2025 19 (L) 23 - 31 mmol/L Final UREA NITROGEN Date Value Ref Range Status 02/09/2025 69 (H) 9 - 23 mg/dL Final 02/09/2025 69 (H) 9 - 23 mg/dL Final 02/08/2025 64 (H) 9 - 23 mg/dL Final CREATININE Date Value Ref Range Status 02/09/2025 3.24 (H) 0.72 - 1.25 mg/dL Final 02/09/2025 3.34 (H) 0.72 - 1.25 mg/dL Final 02/08/2025 3.23 (H) 0.72 - 1.25 mg/dL Final Hepatic: No results found for: AST, ALT, ALBUMIN, BILITOT, BILIDIR, ALKPHOS Current Inpatient Medications Scheduled Meds:Scheduled Meds[1] Continuous Infusions:Continuous Meds[2] PRN Meds:PRN Meds[3] ASSESSMENT: 79 y.o. male s/p thoracotomy for mediastinal mass biopsy with Dr. Contreras on 02/08/2025 PLAN: - Doing well postoperatively - Ok to remove arterial line if correlating with blood pressure cuffs - CT to WS; monitor output - Daily CXR - Diet: Regular - Pain and na (more content not included)... [facility] Progress Note PHYSICAL THERAPY [facility] Name/MRN: Juju Caceres ([id number]) Date: 02/09/2025 PT orders received per Gasper activity/mobility score. Patient currently with Gasper activity/mobility score greater than 2. Per therapy services guidelines, will discharge PT orders. Please place regular PT eval/treat orders if deemed appropriate. Shelli Solorzano, PT [facility] XR CHEST 1 VIEWon 02-09-2025 XR CHEST 1 VIEW Patient Name: JUJU GAINES : 1945 Exam Date/Time: 02/09/2025 05:11 Procedure: XR CHEST 1 VIEW Ordering Provider: CONTRERAS RICHARD Reason For Exam: Eval L PTX, chest tube placement; Evaluate L PTX CHEST - PORTABLE: CLINICAL INDICATION: Eval L PTX, chest tube placement; Evaluate L PTX. TECHNIQUE: Portable AP COMPARISON: One day ago FINDINGS: Tubes, lines and devices: Left chest tube with its tip near the apex Heart/Mediastinum: Unchanged Lungs/Pleura: Atelectasis at left lung base. There may be tiny left apical pneumothorax. No other consolidation Costophrenic angles are sharp. IMPRESSION: Left chest tube. Possible tiny left apical pneumothorax Report Dictated on Electronically Signed By: Laci Mcintyre MD Electronically Signed Date/Time: 02/09/2025 5:[address] [facility] XR Chest Single viewon 02-09 Left chest tube. Pos sible tiny left apical pneumothorax Report Dictated on Electronically Signed By: Laci Mcintyre MD Electronically Signed Date/Time: 02/09/2025 5:14 AM EDT [facility] [employer] Patient Name: JUJU GAINES : 1945 Exam Date/Time: 02/09/2025 05:11 Procedure: XR CHEST 1 VIEW Ordering Provider: CONTRERAS RICHARD Reason For Exam: Eval L PTX, chest tube placement; Evaluate L PTX CHEST - PORTABLE: CLINICAL INDICATION: Eval L PTX, chest tube placement; Evaluate L PTX. TECHNIQUE: Portable AP COMPARISON: One day ago FINDINGS: Tubes, lines and devices: Left chest tube with its tip near the apex Heart/Mediastinum: Unchanged Lungs/Pleura: Atelectasis at left lung base. There may be tiny left apical pneumothorax. No other consolidation Costophrenic angles are sharp. [facility] Laci Mcintyre MD - 02/09/2025 Patient Name: JUJU CACERES : 1945 Exam Date/Time: 02/09/2025 05:11 Procedure: XR CHEST 1 VIEW Ordering Provider: CONTRERAS RICHARD Reason For Exam: Eval L PTX, chest tube placement; Evaluate L PTX CHEST - PORTABLE: CLINICAL INDICATION: Eval L PTX, chest tube placement; Evaluate L PTX. TECHNIQUE: Portable AP COMPARISON: One day ago FINDINGS: Tubes, lines and devices: Left chest tube with its tip near the apex Heart/Mediastinum: Unchanged Lungs/Pleura: Atelectasis at left lung base. There may be tiny left apical pneumothorax. No other consolidation Costophrenic angles are sharp. IMPRESSION: Left chest tube. Possible tiny left apical pneumothorax Report Dictated on Electronically Signed By: Laci Mcintyre MD Electronically Signed Date/Time: 02/09/2025 5:14 AM EDT [facility] Radiology Study observation (narrative) [facility] XR Chest Single viewOrdered By: Laci Mcintyre on 02-09-2025 [facility] Work Phone: BASIC METABOLIC PANELon Anion gap [Moles/Vol] 9 mmol/L Normal 3-13 [facility] Comment on above: Performed By: #### L AB15 ####Superintendent Pier: ADITYA ESCALERA ([phone])[facility] ([address] Calcium [Mass/Vol] 10.6 mg/dL High 8.8-10.0 [facility] Comment on above: Performed By: #### L AB15 ####Superintendent Pier: ADITYA ESCALERA ([phone])[facility] ([facility])[address] [place] [address] Chloride [Moles/Vol] 103 mmol/L Normal 98-107 [facility] Comment on above: Performed By: #### L AB15 ####Superintendent Pier: ADITYA ESCALERA ([phone])[facility])[address] [place] [address] [place] CO2 [Moles/Vol] 19 mmol/L Low 23-31 [facility] Comment on above: Performed By: #### L AB15 ####Superintendent Pier: ADITYA ESCALERA ([phone])[facility])[address] [place] [address] Creatinine [Mass/Vol] 3.23 mg/dL High 0.72-1.25 [facility] Comment on above: Performed By: #### L AB15 ####Superintendent Pier: ADITYA ESCALERA ([phone])[facility])[address] [place] [address] [place] GLOMERULAR FILTRATION RATE ML/MIN/1.73 SQ M.PREDICTED 18.5 mL/min/1.73m*2 Low >60.0 [facility] Comment on above: Result Comment: Calc ulation based on the Chronic Kidney Disease Epidemiology Collaboration (CKD-EPI) equation refit without adjustment for race Performed By: #### L AB15 ####Superintendent Pier: ADITYA ESCALERA ([phone])[facility] ([facility])[address] [place] [address] [place] Glucose [Mass/Vol] 132 mg/dL High 82-115 [facility] Comment on above: Performed By: #### L AB15 ####Superintendent Pier: ADITYA ESCALERA ([phone])[facility])[address] [place] [address] Potassium [Moles/Vol] 5.1 mmol/L Normal 3.5-5.1 [facility] Comment on above: Result Comment: [facility] potassium values may be up to 0.5 mmol/L lower than serum values. Performed By: #### L AB15 ####Superintendent Pier: ADITYA ESCALERA ([phone])[facility])[address] [place] [address] Sodium [Moles/Vol] 131 mmol/L Low 136-145 [facility] Comment on above: Performed By: #### L AB15 ####Superintendent Pier: ADITYA ESCALERA ([phone])[facility])[address] [place] [address] Urea nitrogen [Mass/Vol] 64 mg/dL High 9-23 [facility] Comment on above: Performed By: #### L AB15 ####Superintendent Pier: ADITYA ESCALERA ([phone])[facility])[address] [place] [address] Anion gap [Moles/Vol] 11 mmol/L Normal 3-13 [facility] Comment on above: Order Comment: Z06.09 18 Performed By: #### L AB15 ####Superintendent Pier: ADITYA ESCALERA ([phone])[facility])[address] [place] [address] Calcium [Mass/Vol] 12.0 mg/dL High 8.8-10.0 [facility] Comment on above: Order Comment: Z. 18 Performed By: #### L AB15 ####Superintendent Pier: ADITYA ESCALERA ([phone])[facility])[address] [place] [address] Chloride [Moles/Vol] 102 mmol/L Normal 98-107 [facility] Comment on above: Order Comment: Z. 18 Performed By: #### L AB15 ####Superintendent Pier: ADITYA ESCALERA ([phone])[facility])[address] [place] [address] CO2 [Moles/Vol] 20 mmol/L Low 23-31 [facility] Comment on above: Order Comment: Z. 18 Performed By: #### L AB15 ####Superintendent Pier: ADITYA [id number])[facility] ([facility])[address] [place] [address] Creatinine [Mass/Vol] 3.27 mg/dL High 0.72-1.25 [facility] Comment on above: Order Comment: Performed By: #### L AB15 ####Superintendent Pier: ADITYA ESCALERA ([phone])[facility] ([facility])[address] [place] [address] [place] GLOMERULAR FILTRATION RATE ML/MIN/1.73 SQ M.PREDICTED 18.2 mL/min/1.73m*2 Low >60.0 [facility] Comment on above: Order Comment: Result Comment: Calc ulation based on the Chronic Kidney Disease Epidemiology Collaboration (CKD-EPI) equation refit without adjustment for race Performed By: #### L AB15 ####Superintendent Pier: ADITYA ESCALERA ([phone])[facility] ([facility])[address] [place] [address] Glucose [Mass/Vol] 100 mg/dL Normal 82-115 [facility] Comment on above: Order Comment: Performed By: #### L AB15 ####Superintendent Pier: ADITYA ESCALERA ([phone])[facility])[address] [place] [address] Potassium [Moles/Vol] 4.6 mmol/L Normal 3.5-5.1 [facility] Comment on above: Order Comment: Result Comment: [facility] potassium values may be up to 0.5 mmol/L lower than serum values. Performed By: #### L AB15 ####Superintendent Pier: ADITYA ESCALERA ([phone])[facility] ([facility])[address] [place] [address] [place] Sodium [Moles/Vol] 133 mmol/L Low 136-145 [facility] Comment on above: Order Comment: Performed By: #### L AB15 ####Superintendent Pier: ADITYA ESCALERA ([id number])[facility])[address] Urea nitrogen [Mass/Vol] 62 mg/dL High 9-23 [facility] Comment on above: Order Comment: Z01.8 18 Performed By: #### L AB15 ####Superintendent Pier: ADITYA ESCALERA ([id number])[facility] ([facility])[address] [place] [address] Basic metabolic 1998 panelon 02-08-2025 Anion gap [Moles/Vol] 9 mmol/L 3 - 13 mmol/L [facility] Calcium [Mass/Vol] 10.6 mg/dL High 8.8 - 10. 0 mg/dL [facility] Chloride [Moles/Vol] 103 mmol/L 98 - 10 7 mmol/L [facility] CO2 [Moles/Vol] 19 mmol/L Low 23 - 31 mmol/L [facility] Creatinine [Mass/Vol] 3.23 mg/dL High 0.72 - 1.25 mg/dL [facility] GFR/1.73 sq M.predicted (S/P/Bld) [Vol rate/Area] 18.5 mL/min Low - PINF [facility] Comment on above: Calculation based on the Chronic Kidney Disease Epidemiology Collaboration (CKD-EPI) equation refit without adjustment for race Glucose [Mass/Vol] 132 mg/dL High 82 - 115 mg/dL [facility] Interpretation and review of laboratory results Abnormal [facility] Potassium [Moles/Vol] 5.1 mmol/L 3.5 - 5.1 mmol/L [facility] Comment on above: Plasma potassium silvano ues may be up to 0.5 mmol/L lower than serum values. Sodium [Moles/Vol] 131 mmol/L Low 136 - 145 mmol/L [facility] Urea nitrogen [Mass/Vol] 64 mg/dL High 9 - 23 mg/dL [facility] Anion gap [Moles/Vol] 11 mmol/L 3 - 13 mmol/L [facility] Calcium [Mass/Vol] 12 mg/dL High 8.8 - 10. 0 mg/dL [facility] Chloride [Moles/Vol] 102 mmol/L 98 - 10 7 mmol/L [facility] CO2 [Moles/Vol] 20 mmol/L Low 23 - 31 mmol/L [facility] Creatinine [Mass/Vol] 3.27 mg/dL High 0.72 - 1.25 mg/dL [facility] GFR/1.73 sq M.predicted (S/P/Bld) [Vol rate/Area] 18.2 mL/min Low - PINF [facility] Comment on above: Calculation based on the Chronic Kidney Disease Epidemiology Collaboration (CKD-EPI) equation refit without adjustment for race Glucose [Mass/Vol] 100 mg/dL 82 - 115 mg/dL [facility] Interpretation and review of laboratory results Abnormal [facility] Potassium [Moles/Vol] 4.6 mmol/L 3.5 - 5.1 mmol/L [facility] Comment on above: Plasma potassium silvano ues may be up to 0.5 mmol/L lower than serum values. Sodium [Moles/Vol] 133 mmol/L Low 136 - 145 mmol/L [facility] Urea nitrogen [Mass/Vol] 62 mg/dL High 9 - 23 mg/dL [facility] CBC (HEMOGRAM)on 02-08-2025 Erythrocyte distribution width (RBC) [Ratio] 13.8 % Normal 11.5-15.0 [facility] Comment on above: Order Comment: Z018 Performed By: #### L [id number] ####Superintendent Pier: ADITYA ESCALERA ([id number])[address] Hematocrit (Bld) [Volume fraction] 32.0 % Low 40.0-52.0 [facility] Comment on above: Order Comment: Z018 Performed By: #### L [id number] ####Superintendent Pier: ADITYA ESCALERA ([phone])[facility] ([facility])[address] [place] [address] Hemoglobin (Bld) [Mass/Vol] 10.3 g/dL Low 13.0-18.0 [facility] Comment on above: Order Comment: Z018 Performed By: #### L [id number] ####Superintendent Pier: ADITYA ESCALERA ([id number])[facility])[address] [place] [address] MCH (RBC) [Entitic mass] 28.9 pg Normal 26.0-34.0 [facility] Comment on above: Order Comment: . 18 Performed By: #### L [id number] ####Superintendent Pier: ADITYA ESCALERA ([phone])[facility])[address] [place] [address] MCHC 32.2 % Normal 30.5-36.0 [facility] Comment on above: Order Comment: . 18 Performed By: #### L [id number] ####Superintendent Pier: ADITYA ESCALERA ([id number])[facility] ([facility])[address] [place] [address] MCV (RBC) [Entitic vol] 89.6 fL Normal 77.0-99.0 [facility] Comment on above: Order Comment: .01 17 Performed By: #### L [id number] ####Superintendent Pier: ADITYA ESCALERA ([phone])[facility])[address] [place] [address] Platelet mean volume (Bld) [Entitic vol] 10.3 fL Normal 9.0-12.7 [facility] Comment on above: Order Comment: . 18 Performed By: #### L [id number] ####Superintendent Pier: ADITYA ESCALERA ([id number])[facility])[address] [place] [address] Platelets (Bld) [#/Vol] 458 10*3/uL High 140-440 [facility] Comment on above: Order Comment: . 18 Performed By: #### L [id number] ####Superintendent Pier: ADITYA ESCALERA ([id number])[facility] ([facility])[address] [place] [address] RBC (Bld) [#/Vol] 3.57 10*6/uL Low 4.40-5.90 [facility] Comment on above: Order Comment: . 18 Performed By: #### L [id number] ####Superintendent Pier: ADITYA ESCALERA ([phone])[facility])[address] [place] [address] WBC (Bld) [#/Vol] 9.3 10*3/uL Normal 3.6-10.7 [facility] Comment on above: Order Comment: Z01.8 18 Performed By: #### L [id number] ####Superintendent Pier: ADITYA ESCALERA ([id number])[facility] ([facility])[address] [place] [address] CBC W Auto Differential pane l (Bld)Ordered By: Araceli Canada on 02-08-2025 Basophils (Bld) [#/Vol] 0 10*3/uL 0.0 - 0.2 10*3/uL [facility] Basophils/100 WBC (Bld) 0.3 % 0.0 - 2.0 % [facility] Eosinophils (Bld) [#/Vol] 0 10*3/uL 0.0 - 0.5 10*3/uL [facility] Eosinophils/100 WBC (Bld) 0.2 % 0.0 - 6.0 % [facility] Erythrocyte distribution width (RBC) [Ratio] 13.7 % 11.5 - 15.0 % [facility] Hematocrit (Bld) [Volume fraction] 21.5 % Low 40.0 - 52.0 % [facility] Hemoglobin (Bld) [Mass/Vol] 7.1 g/dL Low 13.0 - 18.0 g/dL [facility] Immature granulocytes (Bld) [#/Vol] 0.1 10*3/uL High NINF - 0.1 10*3/uL [facility] Immature granulocytes/100 WBC (Bld) 0.6 % 0.0 - 2.0 % [facility] Interpretation and review of laboratory results Abnormal [facility] Lymphocytes (Bld) [#/Vol] 0.3 10*3/uL Low 1.0 - 4.3 10*3/uL [facility] Lymphocytes/100 WBC (Bld) 2.2 % Low 15.0 - 45.0 % [facility] MCH (RBC) [Entitic mass] 29 pg 26.0 - 34.0 pg [facility] MCHC (RBC) [Mass/Vol] 33 % 30.5 - 36.0 % [facility] MCV (RBC) [Entitic vol] 87.8 fL 77.0 - 99.0 fL [facility] Monocytes (Bld) [#/Vol] 0.3 10*3/uL 0.0 - 0.9 10*3/uL [facility] Monocytes/100 WBC (Bld) 2.2 % Low 5.0 - 13.0 % [facility] Neutrophils (Bld) [#/Vol] 11.7 10*3/uL High 1.8 - 7.5 10*3/uL [facility] Neutrophils/100 WBC (Bld) 94.5 % High 38.0 - 82.0 % [facility] Nucleated RBC/100 WBC (Bld) [Ratio] 0 % [facility] Platelet mean volume (Bld) [Entitic vol] 9.9 fL 9.0 - 12.7 fL [facility] Platelets (Bld) [#/Vol] 352 10*3/uL 140 - 440 10*3/uL [facility] RBC (Bld) [#/Vol] 2.45 10*6/uL Low 4.40 - 5.9 0 10*6/uL [facility] WBC (Bld) [#/Vol] 12.4 10*3/uL High 3.6 - 10.7 10*3/uL [facility] CBC WITH AUTO DIFFERENTIALon 02-08-2025 Basophils (Bld) [#/Vol] 0.0 10*3/uL Normal 0.0-0.2 [facility] Comment on above: Performed By: #### L [id number] ####Superintendent Pier: ADITYA ESCALERA ([phone])[address] Basophils/100 WBC (Bld) 0.3 % Normal 0.0-2.0 [facility] Comment on above: Performed By: #### L [id number] ####Superintendent Pier: ADITYA [id number])[address] Eosinophils (Bld) [#/Vol] 0.0 10*3/uL Normal 0.0-0.5 [facility] Comment on above: Performed By: #### L [id number] ####Superintendent Pier: ADITYA [id number])[facility] [address] Eosinophils/100 WBC (Bld) 0.2 % Normal 0.0-6.0 [facility] Comment on above: Performed By: #### L [id number] ####Superintendent Pier: ADITYA ESCALERA ([phone])[facility])[address] [place] [address] Erythrocyte distribution width (RBC) [Ratio] 13.7 % Normal 11.5-15.0 [facility] Comment on above: Performed By: #### L [id number] ####Superintendent Pier: ADITYA ESCALERA ([id number])[address] Hematocrit (Bld) [Volume fraction] 21.5 % Low 40.0-52.0 [facility] Comment on above: Performed By: #### L [id number] ####Superintendent Pier: ADITYA ESCALERA ([phone])[address] Hemoglobin (Bld) [Mass/Vol] 7.1 g/dL Low 13.0-18.0 [facility] Comment on above: Performed By: #### L [id number] ####Superintendent Pier: ADITYA ESCALERA ([phone])[address] IMMATURE GRANS % 0.6 % Normal 0.0-2.0 [facility] Comment on above: Performed By: #### L [id number] ####Superintendent Pier: ADITYA ESCALERA ([phone])[facility])[address] [place] [address] IMMATURE GRANS ABSOLUTE 0.1 10*3/uL High <0.1 [facility] Comment on above: Performed By: #### L [id number] ####Superintendent Pier: ADITYA ESCALERA ([id number])[facility])[address] [place] [address] Lymphocytes (Bld) [#/Vol] 0.3 10*3/uL Low 1.0-4.3 [facility] Comment on above: Performed By: #### L [id number] ####Superintendent Pier: ADITYA ESCALERA ([phone])[facility])[address] [place] [address] Lymphocytes/100 WBC (Bld) 2.2 % Low 15.0-45.0 [facility] Comment on above: Performed By: #### L [id number] ####Superintendent Pier: ADITYA ESCALERA ([id number])[facility])[address] [place] [address] MCH (RBC) [Entitic mass] 29.0 pg Normal 26.0-34.0 [facility] Comment on above: Performed By: #### L [id number] ####Superintendent Pier: ADITYA ESCALERA ([phone])[facility])[address] [place] [address] MCHC 33.0 % Normal 30.5-36.0 [facility] Comment on above: Performed By: #### L [id number] ####Superintendent Pier: ADITYA ESCALERA ([phone])[facility])[address] [place] [address] MCV (RBC) [Entitic vol] 87.8 fL Normal 77.0-99.0 [facility] Comment on above: Performed By: #### L [id number] ####Superintendent Pier: ADITYA ESCALERA ([id number])[facility])[address] [place] [address] Monocytes (Bld) [#/Vol] 0.3 10*3/uL Normal 0.0-0.9 [facility] Comment on above: Performed By: #### L [id number] ####Superintendent Pier: ADITYA ESCALERA ([phone])[facility])[address] [place] [address] Monocytes/100 WBC (Bld) 2.2 % Low 5.0-13.0 [facility] Comment on above: Performed By: #### L [id number] ####Superintendent Pier: ADITYA [id number])[facility] ([facility])[address] [place] [address] NEUTROPHILS ABSOLUTE 11.7 10*3/uL High 1.8-7.5 [facility] Comment on above: Performed By: #### L [id number] ####Superintendent Pier: ADITYA ESCALERA ([phone])[facility] ([facility])[address] [place] [address] Neutrophils/100 WBC (Bld) 94.5 % High 38.0-82.0 [facility] Comment on above: Performed By: #### L [id number] ####Superintendent Pier: ADITYA ESCALERA ([phone])[facility])[address] [place] [address] NRBC 0.0 /100 WBCs Normal 0.0-2.0 [facility] Comment on above: Performed By: #### L [id number] ####Superintendent Pier: ADITYA ESCALERA ([id number])[facility] ([facility])[address] [place] [address] Platelet mean volume (Bld) [Entitic vol] 9.9 fL Normal 9.0-12.7 [facility] Comment on above: Performed By: #### L [id number] ####Superintendent Pier: ADITYA ESCALERA ([id number])[facility] ([facility])[address] [place] [address] Platelets (Bld) [#/Vol] 352 10*3/uL Normal 140-440 [facility] Comment on above: Performed By: #### L [id number] ####Superintendent Pier: ADITYA ESCALERA ([id number])[facility] ([facility])[address] [place] [address] RBC (Bld) [#/Vol] 2.45 10*6/uL Low 4.40-5.90 [facility] Comment on above: Performed By: #### L [id number] ####Superintendent Pier: ADITYA ESCALERA ([phone])[facility] ([facility])[address] [place] [address] WBC (Bld) [#/Vol] 12.4 10*3/uL High 3.6-10.7 [facility] Comment on above: Performed By: #### L [id number] ####Superintendent Pier: ADITYA ESCALERA ([phone])[facility] ([facility])[address] CBC panel Auto (Bld)Ordered By: Nadira Lenz on 02-08-2025 Erythrocyte distribution width (RBC) [Ratio] 13.8 % 11.5 - 15.0 % [facility] Hematocrit (Bld) [Volume fraction] 32 % Low 40.0 - 52.0 % [facility] Hemoglobin (Bld) [Mass/Vol] 10.3 g/dL Low 13.0 - 18.0 g/dL [facility] Interpretation and review of laboratory results Abnormal [facility] MCH (RBC) [Entitic mass] 28.9 pg 26.0 - 34.0 pg [facility] MCHC (RBC) [Mass/Vol] 32.2 % 30.5 - 36.0 % [facility] MCV (RBC) [Entitic vol] 89.6 fL 77.0 - 99.0 fL [facility] Platelet mean volume (Bld) [Entitic vol] 10.3 fL 9.0 - 12.7 fL [facility] Platelets (Bld) [#/Vol] 458 10*3/uL High 140 - 440 10*3/uL [facility] RBC (Bld) [#/Vol] 3.57 10*6/uL Low 4.40 - 5.9 0 10*6/uL [facility] WBC (Bld) [#/Vol] 9.3 10*3/uL 3.6 - 10.7 10*3/uL [facility] Op Noteon 02-08-2025 Op Note CARDIOTHORACIC SURGERY--OPERATIVE NOTE Date: 02/08/25 Preoperative Diagnosis: Mediastinal adenopathy Pleural effusion Postoperative Diagnosis: Mediastinal adenopathy Pleural effusion Procedure: Left thoracoscopy converted to left thoracotomy Mediastinal biopsy Drainage of pleural effusion Parietal pleural biopsy Mechanical pleurodesis Surgeon: Lucero Contreras DO Tractor Engine Mechanic: Dilan Goncalves MD ([id number]) Anesthesia: General--Dr. Rojas Complications: None Estimated Blood Loss: 250 ml Tubes/Wires: Chest tube x 1 Specimen: Mediastinal tissue; parietal pleura; pleural fluid for cytology Brief History: This is an 79-year-old male with recent findings of mediastinal adenopathy, fatigue, and weakness. 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 The above procedure was offered to him. Risks benefits and alternatives were explained in detail and he agreed to proceed. Findings: About 1200 mL of serous pleural fluid was drained initially. Some of this was sent for cytology. There is extensive implants on the parietal pleural surface. Some of this was biopsied. The mediastinal tissue had a very tough, fibrous, stromal character to it which is not similar to lymphatic tissue. It was covering the tissue such that I could not discern any structures within the mediastinum including the aorta. There was some bleeding that was encountered presumably from the subclavian vein that was completely encased by the tumor itself. This was controlled with Prolene stitches. I took biopsy from 3 different areas all of which showed the same fibrous tissue. Details of Procedure: The patient was brought to the operative suite and placed in supine position on the operative table. General anesthesia was administered with a double-lumen endotracheal tube and all appropriate lines and tubes were placed. He was then placed in the right lateral decubitus position. His left chest was prepped and draped in the usual sterile fashion. Local 0.25% ropivacaine was used due to the surgical sites. A 12 mm incision was made at the angle of the scapula. Once the cannula was placed lung adhesions and pleural fluid were seen. The lung was especially adherent to the mediastinum. Another incision was made in the same interspace more posteriorly. Another incision was made anteriorly in the lower chest. A fourth incision was made closer to the axilla and the approximate fourth interspace. I then placed the camera followed by my desired instruments. About 1200 mL of serous fluid was removed. Some of it was sent for cytology. The filmy lung adhesions were taken down bluntly. The lung was especially adherent to the mediastinal surface of the pleural cavity. It was gently coaxed away from the mediastinum using blunt dissection as well as gentle electrocautery. After scoring an opening in the parietal pleural surface which was quite thick I was able to locate tumor. Several blunt biopsies of this tumor were removed with a forceps. As I continued taking several small pieces unaware of the depth of some of the head vessels I encountered some significant bleeding. Several minutes of pressure were held but I continued on. It was apparent that I would have to control this bleeding surgically. The axillary incision was converted to a larger utility incision. A retractor was placed through it. A large 4-0 Prolene suture was passed around the point of bleeding in a [id number] fashion which was successful and completely controlling the bleeding. A Surgicel was placed over it for safe measures. I continued taking biopsies of the mediastinum being careful where I biopsied with regard to the surrounding anatomic structures which were closely evaluated on CT scan. Once I felt like I had sufficient tissue, all of which was very tough fibrous tissue and appearance, this portion of the procedure was completed. There is a very thickened portion of the parietal pleura posterolaterally. This was also biopsied using electrocautery. It was sent for permanent section. The chest was then copiously irrigated with warm sterile saline. The parietal pleural surface was abraded using a Bovie scratch pad for mechanical pleurodesis. A single 28 Serbian chest tube was placed in a pleural space through the inferior incision. I then turned attention to closure. Each of the incisions were closed in several layers with running absorbable sutures. The thoracotomy incision was closed first by approximating the deep musculature. The fascia was then closed overlying it with absorbable sutures. The skin was closed with running Monocryl followed by Dermabond skin adhesive. The procedure was then terminated. At the end of the procedure all the sponge and sharp counts were correct. Disposition: The patient having tolerated the procedure well was taken in stable condition to the (more content not included)... Normal [facility] Op Note Date: 02/08/2025 Locat ion: [facility] OR Name: Juju Caceres, : 1945, Diagnosis Pre-op Diagnosis * Other diseases of mediastinum, not elsewhere classified [J98.59] Post-op Diagnosis * Other diseases of mediastinum, not elsewhere classified [J98.59] Procedures LEFT VIDEO-ASSISTED THORACOSCOPIC SURGERY 62329 - [place] THORACOSCOPY W/LOBECTOMY SINGLE LOBE MEDIASTINOSCOPY WITH BIOPSY 32615 - [place] MEDIASTINOSCOPY INCLUDES MEDIASTINAL MASS BIOPSY Surgeons * Freddy Contreras - Primary Procedure Summary Anesthesia: * No anesthesia type entered * ASA: III Estimated Blood Loss: 250 mL Drains: Chest Tube 1 Left Mediastinal 28 Fr (Active) Dressing Status New dressing;Clean, dry & intact 02/08/25 1136 Specimens ID Source Type Tests Collected By Collected At Frozen? Priority Lab ID 1 Pleural Cavity, Left Pleural Fluid NON-GYNECOLOGIC CYTOLOGY Freddy Contreras, DO 02/08/25 0833 No Description: left pleural fluid 2 Chest, Left Tissue TISSUE EXAM Freddy Contreras, DO 02/08/25 0944 No Routine [id number] Description: Mediastinal Mass Comment: Send fresh for Lymphoma protocol 3 Pleural Cavity, Left Tissue TISSUE EXAM Freddy Contreras, DO 02/08/25 1057 No Routine [id number] Description: parietal pleura Staff: Shortage Worker: Ellen Crowell RN; Cydney Lemons RN Scrub Person: Felipe Reynaga RN [place] to Circ: Jun Vicente RN Findings: VATS converted to thoracotomy for bleeding suspected subclavian vein. Mediastinal mass excision. Complications: None; patient tolerated the procedure well. Specimens Collected: Order Name Source Comment Collection Info Order Time PROTHROMBIN TIME If patient on coumadin within 4 days prior. 02/08/2025 6:00 AM CBC (HEMOGRAM) Blood, Venous Z01.818 Collected By: Lyndon Juarez RN 02/08/2025 6:00 AM BASIC METABOLIC PANEL Blood, Venous Z01.818 Collected By: Lyndon Juarez RN 02/08/2025 6:00 AM PREPARE RBC 02/08/2025 10:17 AM Transfusion indications Other (Specify) Other indication surgery Has consent been obtained? Yes NON-GYNECOLOGIC CYTOLOGY Pleural Cavity, Left Collected By: Freddy Contreras DO 02/08/2025 8:34 AM TISSUE EXAM Chest, Left Collected By: Freddy Contreras DO 02/08/2025 9:45 AM Wound Class: Class I: Clean Blood Products: None Prophylactic Antibiotics: Procedure appropriate prophylactic antibiotic(s) given within 1 hour of surgical incision (two hours if receiving Vancomycin or flouroquinolone) [facility] Progress Noteon 02-08-2025 Progress Note and Jessa n to bedside to see patient [facility] Progress Note Unable to update pat ient family. All out to lunch at this time Normal [facility] XR CHEST 1 VIEWon 02-08-2025 XR CHEST 1 VIEW Patient Name: JUJU GAINES : 1945 Exam Date/Time: 02/08/2025 11:28 Procedure: XR CHEST 1 VIEW Ordering Provider: CONTRERAS RICHARD Reason For Exam: done in the or no surgical count , possible retained instrument Examination: Portable chest Indication: done in the or no surgical count , possible retained instrument Comparison: 02/03/2025 Findings: Left-sided chest tube overlies the left upper hemithorax. No sizable pneumothorax. Mild elevation of the right hemidiaphragm. Cardiac silhouette is within normal limits. No obvious retained surgical instrument. Endotracheal tube appears to be positioned within the left mainstem bronchus. IMPRESSION: Impression: Please note endotracheal tube positioning. Report Dictated on Electronically Signed By: Aleta Madison MD Electronically Signed Date/Time: 02/08/2025 12:41 PM EDT To confirm instrument counts on Emergent Operating Room case. No instrument count performed. Normal [facility] XR Chest Single viewon 02-08 Impression: Please note endotracheal tube positioning. Report Dictated on Electronically Signed By: Aleta Madison MD Electronically Signed Date/Time: 02/08/2025 12:41 PM EDT [facility] Patient Name: JUJU GAINES : 1945 Exam Date/Time: 02/08/2025 11:28 Procedure: XR CHEST 1 VIEW Ordering Provider: CONTRERAS RICHARD Reason For Exam: done in the or no surgical count , possible retained instrument Examination: Portable chest Indication: done in the or no surgical count , possible retained instrument Comparison: 02/03/2025 Findings: Left-sided chest tube overlies the left upper hemithorax. No sizable pneumothorax. Mild elevation of the right hemidiaphragm. Cardiac silhouette is within normal limits. No obvious retained surgical instrument. Endotracheal tube appears to be positioned within the left mainstem bronchus. [facility] RADIOLOGY SYSTEM Aleta Madison MD - 02/08/2025 Patient Name: JUJU CACERES : 1945 Exam Date/Time: 02/08/2025 11:28 Procedure: XR CHEST 1 VIEW Ordering Provider: CONTRERAS RICHARD Reason For Exam: done in the or no surgical count , possible retained instrument Examination: Portable chest Indication: done in the or no surgical count , possible retained instrument Comparison: 02/03/2025 Findings: Left-sided chest tube overlies the left upper hemithorax. No sizable pneumothorax. Mild elevation of the right hemidiaphragm. Cardiac silhouette is within normal limits. No obvious retained surgical instrument. Endotracheal tube appears to be positioned within the left mainstem bronchus. IMPRESSION: Impression: Please note endotracheal tube positioning. Report Dictated on Electronically Signed By: Aleta Madison MD Electronically Signed Date/Time: 02/08/2025 12:[address] [facility] VTM Radiology Study observation (narrative) [employer] XR Chest Single viewOrdered By: Aleta Madison on 02-08-2025 [employer] Work Phone: XR CHEST 2 VIEWSon XR CHEST 2 VIEWS Patient Name: JUJU GAINES : 1945 Exam Date/Time: 02/03/2025 15:20 Procedure: XR CHEST 2 VIEWS Ordering Provider: DELCID BRANDY Reason For Exam: PREOPERATIVE ANESTHESIA CLINICAL INFORMATION: Preoperative study. VATS planned. PA and lateral views of the chest are provided. There are no comparison studies at this institution. FINDINGS: The heart size is normal. There is fullness in the aortopulmonary window. Infiltrate and effusion are noted in the left lung base. The right lung is clear. IMPRESSION: 1. Probable mediastinal adenopathy. 2. Left lower lobe infiltrate and effusion. Report Dictated on Electronically Signed By: Laci Siddiqui MD Electronically Signed Date/Time: 02/06/2025 9:26 PM EDT Normal [facility] Progress Noteon 02-04-2025 Progress Note SCARLET, pt scheduled fo r left VATS 02/08/25 Normal [facility] [id number] 02-03-2025 [id number] Medication List Accurate as of February 03, 2025 2:42 PM. Always use your most recent med list. cholecalciferol 125 MCG (5000 UT) capsule Commonly known as: Vitamin D-3 Medication Adjustments for Surgery: Hold morning of surgery fish oil 500 MG capsule Commonly known as: [place]-3 Medication Adjustments for Surgery: Hold morning of surgery MAGNESIUM PO Medication Adjustments for Surgery: Hold morning of surgery melatonin 3 MG tablet Medication Adjustments for Surgery: Take night before surgery metoprolol succinate XL 50 MG 24 hr tablet Commonly known as: Toprol-XL Medication Adjustments for Surgery: Take morning of surgery Additional Instructions: You may take your prescription pain medication. You may take Tylenol for pain. NO Motrin, ibuprofen or Advil for 24 hours prior to surgery or longer if instructed by your surgeon. NO Aleve or Naprosyn for 5 days prior to surgery or longer if instructed by your surgeon. IF YOU TAKE BLOOD THINNERS OR ASPIRIN: Follow any instructions given to you by Dr. Contreras Show[place] with an antibacterial soap such as Dial or Safeguard or shower kit provided to you before coming to the hospital. No makeup, lotion, powder, deodorant or body spays. No hair products. Remove all jewelry and leave it at home. Wear loose comfortable clothing to go home in. You may brush your teeth morning of surgery. Do not wear contacts day of surgery. No marijuana (THC), smoking or alcohol for 24 hours prior to surgery. Please arrange for a responsible adult to drive you home after your surgery and that there is a responsible adult with you for 24 hours post discharge. If you have specific questions, please call your surgeon. You will receive a call the day before your surgery to verify your arrival time and date. You will be asked to arrive at least two hours prior to your scheduled surgery time. Please bring your [facility] Surgical folder and medication list with you day of surgery. We encourage you to write down any questions you may have for the surgeon, anesthesiologist, or other members of the surgical team and bring it with you the day of surgery. Please bring photo ID and insurance information.UTILIZATION MANAGEMENT NURSE AND PARKING IN THE MAIN DECK ARE FREE DAY OF SURGERY. PARKING IN THE DECK-- AFTER PARKING TAKE THE ELEVATOR TO LEVEL ONE AND TAKE THE BRIDGE TO THE HOSPITAL. GO TO THE RIGHT AND GO AROUND THE CORNER TO THE SAME DAY SURGERY DESK AND CHECK IN THERE. IF GOING IN THE MAIN ENTRANCE-- TURN LEFT AND GO DOWN THE [place] TO THE H ELEVATORS AND TAKE THEM TO ONE, LEFT OFF THE ELEVATOR AND GO AROUND TO THE SAME DAY DESK AND CHECK IN Normal [facility] BASIC METABOLIC PANELon 09-0 -2024 Anion gap [Moles/Vol] 10 mmol/L Normal 3-13 [facility] Comment on above: Performed By: #### L AB15 ####Superintendent Pier: ADITYA ESCALERA ([phone])[address] Calcium [Mass/Vol] 12.3 mg/dL High 8.8-10.0 [facility] Comment on above: Performed By: #### L AB15 ####Superintendent Pier: ADITYA ESCALERA ([phone])[facility])[address] [place] [address] Chloride [Moles/Vol] 101 mmol/L Normal 98-107 [facility] Comment on above: Performed By: #### L AB15 ####Superintendent Pier: ADITYA ESCALERA ([phone])[facility])[address] [place] [address] CO2 [Moles/Vol] 23 mmol/L Normal 23-31 [facility] Comment on above: Performed By: #### L AB15 ####Superintendent Pier: ADITYA [id number])[address] Creatinine [Mass/Vol] 3.04 mg/dL High 0.72-1.25 [facility] Comment on above: Performed By: #### L AB15 ####Superintendent Pier: ADITYA [id number])[facility])[address] [place] [address] GLOMERULAR FILTRATION RATE ML/MIN/1.73 SQ M.PREDICTED 19.9 mL/min/1.73m*2 Low >60.0 [facility] Comment on above: Result Comment: Calc ulation based on the Chronic Kidney Disease Epidemiology Collaboration (CKD-EPI) equation refit without adjustment for race Performed By: #### L AB15 ####Superintendent Pier: ADITYA ESCALERA ([id number])[facility])[address] [place] [address] Glucose [Mass/Vol] 98 mg/dL Normal 82-115 [facility] Comment on above: Performed By: #### L AB15 ####Superintendent Pier: ADITYA ESCALERA ([phone])[address] Potassium [Moles/Vol] 5.1 mmol/L Normal 3.5-5.1 [facility] Comment on above: Result Comment: [facility] potassium values may be up to 0.5 mmol/L lower than serum values. Performed By: #### L AB15 ####Superintendent Pier: ADITYA ESCALERA ([phone])[address] Sodium [Moles/Vol] 134 mmol/L Low 136-145 [facility] Comment on above: Performed By: #### L AB15 ####Superintendent Pier: ADITYA ESCALERA ([phone])[place] [address] [place] Urea nitrogen [Mass/Vol] 56 mg/dL High 9-23 [facility] Comment on above: Performed By: #### L AB15 ####Superintendent Pier: ADITYA ESCALERA ([id number])[address] BLOOD TYPE AND SCREEN GELon 02-03-2025 ABO GROUPING AB Normal [facility] Comment on above: Performed By: #### L AB276 ####Superintendent Pier: ADITYA [id number])[facility] ([facility])[address] [place] [address] RH TYPE IN BLOOD Positive Normal [facility] Comment on above: Performed By: #### L AB276 ####Superintendent Pier: ADITYA ESCALERA ([id number])[facility] ([facility])[address] [place] [address] CBC (HEMOGRAM)on 02-03-2025 Erythrocyte distribution width (RBC) [Ratio] 13.9 % Normal 11.5-15.0 [facility] Comment on above: Performed By: #### L AB294 ####Superintendent Pier: ADITYA ESCALERA ([phone])[facility])[address] [place] [address] Hematocrit (Bld) [Volume fraction] 30.8 % Low 40.0-52.0 [facility] Comment on above: Performed By: #### L AB294 ####Superintendent Pier: ADITYA ESCALERA ([id number])[facility])[address] [place] [address] Hemoglobin (Bld) [Mass/Vol] 9.9 g/dL Low 13.0-18.0 [facility] Comment on above: Performed By: #### L AB294 ####Superintendent Pier: ADITYA ESCALERA ([phone])[facility])[address] [place] [address] MCH (RBC) [Entitic mass] 28.9 pg Normal 26.0-34.0 [facility] Comment on above: Performed By: #### L AB294 ####Superintendent Pier: ADITYA ESCALERA ([phone])[facility])[address] [place] [address] MCHC 32.1 % Normal 30.5-36.0 [facility] Comment on above: Performed By: #### L AB294 ####Superintendent Pier: ADITYA ESCALERA ([id number])[facility])[address] [place] [address] MCV (RBC) [Entitic vol] 89.8 fL Normal 77.0-99.0 [facility] Comment on above: Performed By: #### L AB294 ####Superintendent Pier: ADITYA ESCALERA ([id number])[facility] ([facility])[address] [place] [address] Platelet mean volume (Bld) [Entitic vol] 9.9 fL Normal 9.0-12.7 [facility] Comment on above: Performed By: #### L AB294 ####Superintendent Pier: ADITYA ESCALERA ([id number])[facility] ([facility])[address] [place] [address] Platelets (Bld) [#/Vol] 534 10*3/uL High 140-440 [facility] Comment on above: Performed By: #### L AB294 ####Superintendent Pier: ADITYA ESCALERA ([id number])[facility] ([facility])[address] [place] [address] RBC (Bld) [#/Vol] 3.43 10*6/uL Low 4.40-5.90 [facility] Comment on above: Performed By: #### L AB294 ####Superintendent Pier: ADITYA ESCALERA ([id number])[facility] ([facility])[address] [place] [address] WBC (Bld) [#/Vol] 9.1 10*3/uL Normal 3.6-10.7 [facility] Comment on above: Performed By: #### L AB294 ####Superintendent Pier: ADITYA ESCALERA ([phone])[facility] ([facility])[address] [place] [address] ECG 12-LEADon 02-03-2025 ECG 12-LEAD IMPRESSION: Sinus rhythm No previous ECG available for comparison Electronically Signed On 02-03-2025 15:06:39 EDT by Jun Jean Baptiste [facility] Progress Noteon 02-03-2025 Progress Note [facility] MICHAEL Caceres : 1945 Primary Care Physician: MICHELET GOOD The patient and/or family/surrogate voluntarily agreed to participate in ACP services. Patient?s cognitive capacity: Patient is Alert and [place] to person, place and time Code Status: [x] [FULL CODE - Continue all advanced life support: CPR,intubation,invasive procedures] [_] [DNR-CCA - DO NOT do CPR, intubation] [_] [DNR-ACCESS SERVICE REPRESENTATIVE - Comfort care only] [_] DNR form [was/was not] signed Summary of discussion: The patient health care POA/ surrogate is the following: None. [Condition that instigated the ACP on this DOS, relevant PMH, functional status, goals of care, and whom this was discussed with including names and relationship to the patient, and any relevant advance care documentation discussion] I answered all the patient/family questions that I could within the range and scope of the current medical situation. We discussed the medical conditions, risks, benefits, outcomes, and goals of care at this time for the patient's medical issues at hand in the face of the patient's chronic issues and current presentation. Total time spent: 2 minutes were spent discussing the patient's resuscitation status, advance care planning, and end of life care, with patient and/or family/surrogate. Abdi Delcid, VP [employer] - LAB AIDE Acute care solutions 02/03/2025, 2:07 PM Normal [facility] Anion gap in Serum or Plasma Ordered By: Michelet Good on 02-02-2025 Anion gap [Moles/Vol] 16 mmol/L High 5-15 [facility] BUN/creatinine ratioOrdered By: Michelet Good on 02-02-2025 Urea nitrogen/Creatinine [Mass ratio] 17.5 mg/mg 10-20 [facility] Bilirubin, totalOrdered By: Michelet Good on 02-02-2025 Bilirubin [Mass/Vol] 0.22 mg/dL 0.00-1.30 [facility] Carbon dioxide, total [Moles /volume] in Central venous bloodOrdered By: Michelet Good on 02-02-2025 CO2 [Moles/Vol] 21.1 mmol/L 21.0-32.0 [facility] Chloride assayOrdered By: Carin Good on 02-02-2025 Chloride [Moles/Vol] 100 mmol/L 98-108 [facility] Comprehensive Metabolic Prof ilon 02-02-2025 Albumin [Mass/Vol] 3.9 g/dL Normal 3.4-4.8 [facility] Comment on above: Performed By: #### L 3130.0010, L506.1001, L509.1000, L3300.0960 #### [facility] Laboratory [address] [place], [address] Albumin/Globulin [Mass ratio] 1.0 {ratio} Normal 0.9-2.4 [facility] Comment on above: Performed By: #### L 3130.0010, L506.1001, L509.1000, L3300.0960 #### [facility] [address] [place], [address] ALK PHOS 149 U/L High 40-129 [facility] Comment on above: Performed By: #### L 3130.0010, L506.1001, L509.1000, L3300.0960 #### [facility] [address] [place], [address] ALT [Catalytic activity/Vol] 30 U/L Normal <=46 [facility] Comment on above: Performed By: #### L 3130.0010, L506.1001, L509.1000, L3300.0960 #### [facility] [address] [place], [address] AST [Catalytic activity/Vol] 20 U/L Normal <=37 [facility] Comment on above: Performed By: #### L 3130.0010, L506.1001, L509.1000, L3300.0960 #### [facility] [address] [place], [address] Bilirubin [Mass/Vol] 0.22 mg/dL Normal 0.00-1.30 [facility] Comment on above: Performed By: #### L 3130.0010, L506.1001, L509.1000, L3300.0960 #### [facility] [address] [place], [address] BUN/CRE 17.5 RATIO Normal 10-20 [facility] Comment on above: Performed By: #### L 3130.0010, L506.1001, L509.1000, L3300.0960 #### [facility] [address] [place], [address] Calcium [Mass/Vol] 12.4 mg/dL High 7.6-11.0 [facility] Comment on above: Performed By: #### L 3130.0010, L506.1001, L509.1000, L3300.0960 #### [facility] [address] [place], [address] Chloride [Moles/Vol] 100 mmol/L Normal 98-108 [facility] Comment on above: Performed By: #### L 3130.0010, L506.1001, L509.1000, L3300.0960 #### [facility] [address] [place], [address] CO2 [Moles/Vol] 21.1 mmol/L Normal 21.0-32.0 [facility] Comment on above: Performed By: #### L 3130.0010, L506.1001, L509.1000, L3300.0960 #### [facility] [address] [place], [address] Creatinine [Mass/Vol] 3.08 mg/dL High 0.70-1.20 [facility] Comment on above: Performed By: #### L 3130.0010, L506.1001, L509.1000, L3300.0960 #### [facility] [address] [place], [address] GAP 16 High 5-15 [facility] Comment on above: Performed By: #### L 3130.0010, L506.1001, L509.1000, L3300.0960 #### [facility] [address] [place], [address] GFR/1.73 sq M.predicted among non-blacks MDRD (S/P/Bld) [Vol rate/Area] 20 mL/min/{1.73_m2} Low >60 [facility] Comment on above: Result Comment: mL/m in/1.73m2 CKD-EPI Creatinine Equation (2020) Performed By: #### L 3130.0010, L506.1001, L509.1000, L3300.0960 #### [facility] [address] [place], [address] Globulin (S) [Mass/Vol] 3.8 g/dL Normal 2.2-4.2 [facility] Comment on above: Performed By: #### L 3130.0010, L506.1001, L509.1000, L3300.0960 #### [facility] [address] [place], [address] Glucose [Mass/Vol] 111 mg/dL High 70-99 [facility] Comment on above: Performed By: #### L 3130.0010, L506.1001, L509.1000, L3300.0960 #### [facility] [address] [place], [address] Potassium [Moles/Vol] 4.5 mmol/L Normal 3.3-5.1 [facility] Comment on above: Performed By: #### L 3130.0010, L506.1001, L509.1000, L3300.0960 #### [facility] [address] [place], [address] Sodium [Moles/Vol] 136 mmol/L Normal 133-145 [facility] Comment on above: Performed By: #### L 3130.0010, L506.1001, L509.1000, L3300.0960 #### [facility] [address] [place], [address] T PROT 7.6 g/dL Normal 5.9-8.4 [facility] Comment on above: Performed By: #### L 3130.0010, L506.1001, L509.1000, L3300.0960 #### [facility] [address] [place], [address] Urea nitrogen [Mass/Vol] 54 mg/dL High 4-19 [facility] Comment on above: Performed By: #### L 3130.0010, L506.1001, L509.1000, L3300.0960 #### [facility] [address] [place], [address] Glomerular filtration rate ( GFR) estimation/1.73 sq m using serum, plasma, or whole bOrdered By: Michelet Good on 02-02-2025 GFR/1.73 sq M.predicted among non-blacks MDRD (S/P/Bld) [Vol rate/Area] 20 mL/min/{1.73_m2} Low >60 [facility] Comment on above: mL/min/1.73m2 CKD-EP I Creatinine Equation (2020) Laboratory - Chemistry and C hemistry - challengeOrdered By: Michelet Good on 02-02-2025 AST [Catalytic activity/Vol] 20 U/L <38 [facility] No Panel InformationOrdered By: Michelet Good on 02-02-2025 20 U/L <38 [facility] Potassium measurement (mass/ volume)Ordered By: Michelet Good on 02-02-2025 Potassium (Unsp spec) [Mass/Vol] 4.5 mmol/L 3.3-5.1 [facility] Serum creatinine measurement (mass/volume)Ordered By: Michelet Good on 02-02-2025 Creatinine [Mass/Vol] 3.08 mg/dL High 0.70-1.20 [facility] Serum globulin measurementOr dered By: Michelet Good on 02-02-2025 Globulin (S) [Mass/Vol] 3.8 g/dL 2.2-4.2 [facility] Serum glucose measurement (m ass/volume)Ordered By: Michelet Good on 02-02-2025 Glucose [Mass/Vol] 111 mg/dL High 70-99 [facility] Serum or plasma alanine keen otransferase (ALT) measurementOrdered By: Michelet Good on 02-02-2025 ALT [Catalytic activity/Vol] 30 U/L <47 [facility] Serum or plasma albumin emma urement (mass/volume)Ordered By: Michelet Good on 02-02-2025 Albumin [Mass/Vol] 3.9 g/dL 3.4-4.8 [facility] Serum or plasma albumin/glob ulin mass ratioOrdered By: Michelet Good on 02-02-2025 Albumin/Globulin [Mass ratio] 1.0 {ratio} 0.9-2.4 [facility] Serum or plasma alkaline david sphatase measurementOrdered By: Michelet Good on 02-02-2025 ALP [Catalytic activity/Vol] 149 U/L High 40-129 [facility] Serum or plasma calcium emma urement (mass/volume)Ordered By: Michelet Good on 02-02-2025 Calcium [Mass/Vol] 12.4 mg/dL High 7.6-11.0 [facility] Serum or plasma urea nitroge n measurement (mass/volume)Ordered By: Michelet Good on 02-02-2025 Urea nitrogen [Mass/Vol] 54 mg/dL High 4-19 [facility] Sodium levelOrdered By: Michelet Good on 02-02-2025 Sodium [Moles/Vol] 136 mmol/L 133-145 [facility] Total proteinOrdered By: Shakira Good on 02-02-2025 Protein [Mass/Vol] 7.6 g/dL 5.9-8.4 [facility] Pulmonary Visit Reporton Pulmonary Visit Report [facility] [place] [address] [place], [place] [address] [address] [place] [address] OFFICE VISIT Date of Service: 02/01/25 MR#: [id number] Acct: [id number] Name: ISABELJUJU TEMPLE Rep #: [id number] : 1945 Provider: Nanette Connolly NP Age/Sex: 79/M Location: [facility] [place] Status: Signed Assessment and Plan Assessment and Plan (1) Lung mass: Status: Acute Plan: Lung mass was first identified on CT imaging completed through [facility] on December 21, 2024. That imaging study demonstrated a large mass in the prevascular mediastinal space with encroachment on the pulmonary arteries and an associated moderate pleural effusion. Due to Dr. Garcia's concern that he would not be able to reach this lesion bronchoscopically to perform biopsy, he referred to [facility] Cardi[facility] surgery where patient has been evaluated by Dr. Contreras. In the interm the patient has been hospitalized for Acute Kidney Injury. Prior to this hospitalization it did complete the recommended ultrasound-guided thoracentesis which was sent for pleural fluid cytology. Unfortunately, the results were inconclusive for diagnosis. With the recent hospitalization the patient also had a repeated thoracentesis which continue to show atypical lymphocytosis, suspicious for lymphoproliferative disorder from January 21, 2025. I have discussed this patient and his results with Dr. Garcia today. The recommendation remains that he proceed with surgical biopsy preformed by Dr. Contreras to obtain diagnosis. This practice has called Dr. Contreras's office to facilitate this procedure which will be preformed on February 08, 2025. (2) Pleural effusion: Status: Acute Plan: I have discussed the possibility of recurrent pleural effusion. Patient can notify this practice if he has worsening symptoms. Plan This note was generated with [employer] dictation software. It may contain incorrect words, spelling, and punctuation that were not noted in checking the note before signing. Plan Details Additional Comments: If there is a diagnosis of malignancy then patient will be following with oncology and will only need to be followed up in this practice on an as-needed basis or in 6 months. Follow Up: 6 Months (LMR) HPI HPI Comments Details: The patient is an 79-year-old male who presents to the clinic today to review recent testing as he has undergone further evaluation of a lung mass. His and daughter are present at today's office visit. Since last visit he was hospitalized for acute kidney injury on January 23 2025. The patient reported that he has been [...] pleura with encroachment on the pulmonary arteries. Today he reports that shortness of breath will occur with exertion or overexertion. He has a cough on occasion. It is not productive. He denies wheeze. He reports that chest tightness will occur if he takes a really deep breath . He reports the tightness is on the left side of his chest. It has occurred on and off for the last couple of days. Documentation reviewed with patient today includes: Pathology report from January 17, 2025 from thoracentesis shows T-cell predominant lymphocytosis. Addendum from January 19, 2025 indicates that TCRB and TCRG PCR on outside cellblock show no diagnostic T-cell clonal population. 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 Normal [facility] 36on 01-21-2025 36 Ruchi from the PCP o mehulice called and the biopsy is no longer needed. He has Lymphoma and does not wish to go thru any surgeries. Normal [facility] Anion gap in Serum or Plasma Ordered By: Natalie Yen on 01-21-2025 Anion gap [Moles/Vol] 15 mmol/L 5-15 [facility] BUN/creatinine ratioOrdered By: Natalie Yen on 01-21-2025 Urea nitrogen/Creatinine [Mass ratio] 12.4 mg/mg 10-20 [facility] Carbon dioxide, total [Moles /volume] in Central venous bloodOrdered By: Natalie Yen on 01-21-2025 CO2 [Moles/Vol] 16.6 mmol/L Low 21.0-32.0 [facility] Chloride assayOrdered By: Julián Yen on 01-21-2025 Chloride [Moles/Vol] 109 mmol/L High 98-108 [facility] Cytology report of Body flui d Cyto stainOrdered By: Michelet Donovan on 01-21-2025 Cytology report Cyto stain Doc (Body fld) SEE PATHOLOGY REPORT [facility] Comment on above: Specimen submitted t o Anatomical Pathology Department for testing. Cytology, Body Fluid / CSFon 01-21-2025 CYTOLOGY,BF/CSF SEE PATHOLOGY REPORT Normal [facility] Comment on above: Order Comment: Order Date: 01/21/25Comments: Perform cytology on thoracentesis fluid on 01/21/25 Result Comment: Spec imen submitted to Anatomical Pathology Department for testing. Performed By: #### L 3130.0010, L506.1001, L509.1000, L3300.0960 #### [facility] Laboratory [address] [place], [address] Discharge Instructionon 01-01 Discharge Instruction [facility] Medical Records Department [address] [place] [address] Instructions for Home/Discharge Instructions 01/21/25 1203 MR#: [id number] Acct: [id number] Name: JUJU CACERES Rep #: [id number] : 1945 79 From: Michelet Donovan DO PCP: Dr. Michelet Good DO Status:ADM IN Discharge Instructions DC O2, CPAP, BIPAP needs Home O2 Discharge instructions: No Dressing / Incision Discharge Activity: Return to Normal Activity Weight Bearing Status: Full weight bearing Follow Up Care Test Results: Test results from this visit will be discussed in further detail at your follow-up appointment, if applicable. Discharge Plan Admission Admit Date/Time: 01/18/25 10:56 Primary Reason for Your Visit: Acute kidney injury, hypercalcemia, left pleural effusion Attending Provider: Michelet Donovan Primary Care Provider: Michelet Good Consulting Providers: Harry Gutierrez Discharge Orders/Prescriptions Prescriptions: No Action melatonin 3 mg tablet 3 mg PO QHS PRN (Reason: sleep) Referrals / Follow Up: Harry Gutierrez MD [Med Staff - Consulting] - See Referral Note (Follow up with their office as directed, by Friday of next week, call their office to schedule an appointment) Michelet Good DO [Primary Care Provider] - See Referral Note (In 2 weeks) Disposition Disposition (needs filled in before D/C Order can be placed): Home, Self Care 01/21/25 9114 Michelet Donovan DO CC: Dr. Harry Gutierrez MD; Dr. Michelet Good DO Signed Normal [facility] Glomerular filtration rate ( GFR) estimation/1.73 sq m using serum, plasma, or whole bOrdered By: Natalie Yen on 01-21-2025 GFR/1.73 sq M.predicted among non-blacks MDRD (S/P/Bld) [Vol rate/Area] 17 mL/min/{1.73_m2} Low >60 [facility] Comment on above: mL/min/1.73m2 CKD-EP I Creatinine Equation (2020) Potassium measurement (mass/ volume)Ordered By: Natalie Yen on 01-21-2025 Potassium (Unsp spec) [Mass/Vol] 3.7 mmol/L 3.3-5.1 [facility] Renal Profileon 01-21-2025 Albumin [Mass/Vol] 3.0 g/dL Low 3.4-4.8 [facility] Comment on above: Performed By: #### L 3130.0010, L506.1001, L509.1000, L3300.0960 #### [facility] Laboratory [address] [place], [address] BUN/CRE 12.4 RATIO Normal 10-20 [facility] Comment on above: Performed By: #### L 3130.0010, L506.1001, L509.1000, L3300.0960 #### [facility] Laboratory [address] [place], [address] Calcium [Mass/Vol] 10.9 mg/dL Normal 7.6-11.0 [facility] Comment on above: Performed By: #### L 3130.0010, L506.1001, L509.1000, L3300.0960 #### [facility] Laboratory [address] [place], [address] Chloride [Moles/Vol] 109 mmol/L High 98-108 [facility] Comment on above: Performed By: #### L 3130.0010, L506.1001, L509.1000, L3300.0960 #### [facility] Laboratory [address] [place], [address] CO2 [Moles/Vol] 16.6 mmol/L Low 21.0-32.0 [facility] Comment on above: Performed By: #### L 3130.0010, L506.1001, L509.1000, L3300.0960 #### [facility] Laboratory [address] [place], [address] Creatinine [Mass/Vol] 3.40 mg/dL High 0.70-1.20 [facility] Comment on above: Performed By: #### L 3130.0010, L506.1001, L509.1000, L3300.0960 #### [facility] Laboratory [address] [place], [address] ECRCL 15.38 ml/min Low 50-250 [facility] Comment on above: Performed By: #### L 3130.0010, L506.1001, L509.1000, L3300.0960 #### [facility] Laboratory [address] [place], [address] GAP 15 Normal 5-15 [facility] Comment on above: Performed By: #### L 3130.0010, L506.1001, L509.1000, L3300.0960 #### [facility] Laboratory [address] [place], [address] GFR/1.73 sq M.predicted among non-blacks MDRD (S/P/Bld) [Vol rate/Area] 17 mL/min/{1.73_m2} Low >60 [facility] Comment on above: Result Comment: mL/m in/1.73m2 CKD-EPI Creatinine Equation (2020) Performed By: #### L 3130.0010, L506.1001, L509.1000, L3300.0960 #### [facility] Laboratory [address] [place], [address] Glucose [Mass/Vol] 98 mg/dL Normal 70-99 [facility] Comment on above: Performed By: #### L 3130.0010, L506.1001, L509.1000, L3300.0960 #### [facility] Laboratory [address] [place], [address] Phosphate [Mass/Vol] 3.3 mg/dL Normal 2.7-4.5 [facility] Comment on above: Performed By: #### L 3130.0010, L506.1001, L509.1000, L3300.0960 #### [facility] Laboratory [address] [place], [address] Potassium [Moles/Vol] 3.7 mmol/L Normal 3.3-5.1 [facility] Comment on above: Performed By: #### L 3130.0010, L506.1001, L509.1000, L3300.0960 #### [facility] Laboratory [address] [place], [address] Sodium [Moles/Vol] 141 mmol/L Normal 133-145 [facility] Comment on above: Performed By: #### L 3130.0010, L506.1001, L509.1000, L3300.0960 #### [facility] Laboratory [address] [place], [address] Urea nitrogen [Mass/Vol] 42 mg/dL High 09-18 [facility] Comment on above: Performed By: #### L 3130.0010, L506.1001, L509.1000, L3300.0960 #### [facility] Laboratory [address] [place], [address] Serum creatinine measurement (mass/volume)Ordered By: Natalie Yen on 01-21-2025 Creatinine [Mass/Vol] 3.40 mg/dL High 0.70-1.20 [facility] Serum glucose measurement (m ass/volume)Ordered By: Natalie Yen on 01-21-2025 Glucose [Mass/Vol] 98 mg/dL 70-99 [facility] Serum or plasma albumin emma urement (mass/volume)Ordered By: Natalie Yen on 01-21-2025 Albumin [Mass/Vol] 3.0 g/dL Low 3.4-4.8 [facility] Serum or plasma calcium emma urement (mass/volume)Ordered By: Natalie Yen on 01-21-2025 Calcium [Mass/Vol] 10.9 mg/dL 7.6-11.0 [facility] Serum or plasma urea nitroge n measurement (mass/volume)Ordered By: Natalie Yen on 01-21-2025 Urea nitrogen [Mass/Vol] 42 mg/dL High 09-18 [facility] Sodium levelOrdered By: Dano Yen on 01-21-2025 Sodium [Moles/Vol] 141 mmol/L 133-145 [facility] Special Stain Group IIon Special Stain Group II -------- Patient Age/Sex Location Account Attending Physician JUJU CACERES 79/M MS3 [id number] Dr. Michelet Donovan DO Specimen: [id number] Received: 01/21/25 Status: LOUIE Hayes Num: [id number] Spec Type: Fluid Subm Dr: DO PAWEL Estrella OPERATION: Thoracentesis PRE-OP DIAGNOSIS: Left pleural effusion TISSUE SUBMITTED: A- Thoracentesis fluid for cytology DIAGNOSIS CYTOLOGY A. Left pleural effusion, thoracentesis: - Atypical lymphocytosis, suspicious for lymphoproliferative disorder. CYTOLOGY STUDY Slides are reviewed. CYTOLOGY GROSS A. Received is 120 ml of yellow-cloudy fluid labeled with the patient's name and and designated per the requisition as Thoracentesis fluid. Submitted for cytology and cell block preparation. 01/24/2025 CPT: 75194,96962 Signed (signature on file) Dr. Janice Gu MD 01/25/25 1718 Normal [facility] Comment on above: Performed By: #### L 3130.0010, L506.1001, L509.1000, L3300.0956 #### [facility] Laboratory [address] [place], [address] Vitamin D 1,25-Dihydroxyon 0 01-21-2025 VIT D 1,25 DIHY 142.0 pg/mL Abnormal 24.8-81.5 [facility] Comment on above: Result Comment: Perf ormed at: - [address] [id number] Section Maintainer: Tahir Malave MD, Phone: [phone] Performed By: #### L 3130.0010, L506.1001, L509.1000, L3300.0960 #### [facility] Laboratory [address] [place], [place], [id number] Absolute lymphocyte countOrd ered By: Michelet Donovan on 01-20-2025 Lymphocytes Auto (Unsp spec) [#/Vol] 0.43 10*3/uL Low 0.83-4.51 [facility] Absolute neutrophil countOrd ered By: Michelet Donovan on 01-20-2025 Neutrophils (Bld) [#/Vol] 4.9 10*3/uL 2.0-7.7 [facility] Automated lymphocyte count a s percentage of total leukocytesOrdered By: Michelet Donovan on 01-20-2025 Lymphocytes/100 WBC Auto (Unsp spec) 6.7 % Low 19-41 [facility] Basic Metabolic Profile (BMP )on 01-20-2025 BUN/CRE 14.2 RATIO Normal 10-20 [facility] Comment on above: Performed By: #### M 100.2900, M100.4001, L001.0705, L504.0250, L200.0200, L350.1000, M100.1999, L503.0300 #### [facility] Laboratory [address] [place], [address] Calcium [Mass/Vol] 10.9 mg/dL Normal 7.6-11.0 [facility] Comment on above: Performed By: #### M 100.2900, M100.4001, L001.0705, L504.0250, L200.0200, L350.1000, M100.1999, L503.0300 #### [facility] Laboratory [address] [place], [address] Chloride [Moles/Vol] 110 mmol/L High 98-108 [facility] Comment on above: Performed By: #### M 100.2900, M100.4001, L001.0705, L504.0250, L200.0200, L350.1000, M100.2000, L503.0300 #### [facility] Laboratory [address] [place], [address] CO2 [Moles/Vol] 18.8 mmol/L Low 21.0-32.0 [facility] Comment on above: Performed By: #### M 100.2900, M100.4001, L001.0705, L504.0250, L200.0200, L350.1000, M100.2000, L503.0300 #### [facility] Laboratory [address] [place], [address] Creatinine [Mass/Vol] 3.54 mg/dL High 0.70-1.20 [facility] Comment on above: Performed By: #### M 100.2900, M100.4001, L001.0705, L504.0250, L200.0200, L350.1000, M100.2000, L503.0300 #### [facility] Laboratory [address] [place], [address] ECRCL 14.77 ml/min Low 50-250 [facility] Comment on above: Performed By: #### M 100.2900, M100.4001, L001.0705, L504.0250, L200.0200, L350.1000, M100.2000, L503.0300 #### [facility] Laboratory [address] [place], [address] GAP 12 Normal 5-15 [facility] Comment on above: Performed By: #### M 100.2900, M100.4001, L001.0705, L504.0250, L200.0200, L350.1000, M100.2000, L503.0300 #### [facility] Laboratory [address] [place], [address] GFR/1.73 sq M.predicted among non-blacks MDRD (S/P/Bld) [Vol rate/Area] 17 mL/min/{1.73_m2} Low >60 [facility] Comment on above: Result Comment: mL/m in/1.73m2 CKD-EPI Creatinine Equation (2020) Performed By: #### M 100.2900, M100.4001, L001.0705, L504.0250, L200.0200, L350.1000, M100.2000, L503.0300 #### [facility] Laboratory [address] [place], [address] Glucose [Mass/Vol] 89 mg/dL Normal 70-99 [facility] Comment on above: Performed By: #### M 100.2900, M100.4001, L001.0705, L504.0250, L200.0200, L350.1000, M100.1999, L503.0300 #### [facility] Laboratory [address] [place], [address] Potassium [Moles/Vol] 4.0 mmol/L Normal 3.3-5.1 [facility] Comment on above: Performed By: #### M 100.2900, M100.4001, L001.0705, L504.0250, L200.0200, L350.1000, M100.1999, L503.0300 #### [facility] Laboratory [address] [place], [address] Sodium [Moles/Vol] 141 mmol/L Normal 133-145 [facility] Comment on above: Performed By: #### M 100.2900, M100.4001, L001.0705, L504.0250, L200.0200, L350.1000, M100.1999, L503.0300 #### [facility] Laboratory [address] [place], [address] Urea nitrogen [Mass/Vol] 50 mg/dL High 4-19 [facility] Comment on above: Performed By: #### M 100.2900, M100.4001, L001.0705, L504.0250, L200.0200, L350.1000, M100.1999, L503.0300 #### [facility] Laboratory [address] [place], [address] Basophil percentageOrdered B y: Michelet Donovan on 01-20-2025 Basophils/100 WBC (Bld) 0.8 % 0-1 [facility] CBC W/Diff, Automatedon 01-01 Absolute Lymph 0.43 X10 3/uL Low 0.83-4.51 [facility] Comment on above: Performed By: #### M 100.2900, M100.4001, L001.0705, L504.0250, L200.0200, L350.1000, M100.2000, L503.0300 #### [facility] Laboratory [address] [place], [address] Absolute Neut 4.9 X10 3/uL Normal 2.0-7.7 [facility] Comment on above: Performed By: #### M 100.2900, M100.4001, L001.0705, L504.0250, L200.0200, L350.1000, M100.2000, L503.0300 #### [facility] Laboratory [address] [place], [address] Basophils/100 WBC (Bld) 0.8 % Normal 0-1 [facility] Comment on above: Performed By: #### M 100.2900, M100.4001, L001.0705, L504.0250, L200.0200, L350.1000, M100.2000, L503.0300 #### [facility] Laboratory [address] [place], [address] Eosinophils/100 WBC (Bld) 4.4 % Normal 0-5 [facility] Comment on above: Performed By: #### M 100.2900, M100.4001, L001.0705, L504.0250, L200.0200, L350.1000, M100.2000, L503.0300 #### [facility] Laboratory [address] [place], [address] Erythrocyte distribution width (RBC) [Ratio] 13.3 % Normal 11.6-14.6 [facility] Comment on above: Performed By: #### M 100.2900, M100.4001, L001.0705, L504.0250, L200.0200, L350.1000, M100.2000, L503.0300 #### [facility] Laboratory [address] [place], [address] Hematocrit (Bld) [Volume fraction] 25.6 % Low 40-54 [facility] Comment on above: Performed By: #### M 100.2900, M100.4001, L001.0705, L504.0250, L200.0200, L350.1000, M100.2000, L503.0300 #### [facility] Laboratory [address] [place], [address] Hemoglobin (Bld) [Mass/Vol] 8.2 g/dL Low 13.0-16.5 [facility] Comment on above: Performed By: #### M 100.2900, M100.4001, L001.0705, L504.0250, L200.0200, L350.1000, M100.2000, L503.0300 #### [facility] Laboratory [address] [place], [address] IG% 0.600 Normal 0.0-0.9 [facility] Comment on above: Result Comment: IG% - Immature Granulocytes (promyelocytes, myelocytes and metamyelocytes) > 1% indicates that a LEFT SHIFT is Present. Performed By: #### M 100.2900, M100.4001, L001.0705, L504.0250, L200.0200, L350.1000, M100.2000, L503.0300 #### [facility] Laboratory [address] [place], [address] Lymphocytes/100 WBC (Bld) 6.7 % Low 19-41 [facility] Comment on above: Performed By: #### M 100.2900, M100.4001, L001.0705, L504.0250, L200.0200, L350.1000, M100.2000, L503.0300 #### [facility] Laboratory [address] [place], [address] MCH (RBC) [Entitic mass] 29.1 pg Normal 27.0-32.0 [facility] Comment on above: Performed By: #### M 100.2900, M100.4001, L001.0705, L504.0250, L200.0200, L350.1000, M100.2000, L503.0300 #### [facility] Laboratory [address] [place], [address] MCHC (RBC) [Mass/Vol] 32.0 g/dL Normal 32-36 [facility] Comment on above: Performed By: #### M 100.2900, M100.4001, L001.0705, L504.0250, L200.0200, L350.1000, M100.1999, L503.0300 #### [facility] Laboratory [address] [place], [address] MCV (RBC) [Entitic vol] 90.8 fL Normal 80-94 [facility] Comment on above: Performed By: #### M 100.2900, M100.4001, L001.0705, L504.0250, L200.0200, L350.1000, M100.2000, L503.0300 #### [facility] Laboratory [address], [address] Monocytes/100 WBC (Bld) 11.5 % High 0-10 [facility] Comment on above: Performed By: #### M 100.2900, M100.4001, L001.0705, L504.0250, L200.0200, L350.1000, M100.2000, L503.0300 #### [facility] Laboratory [address] [place], [address] Neutrophils/100 WBC (Bld) 76.0 % High 47-70 [facility] Comment on above: Performed By: #### M 100.2900, M100.4001, L001.0705, L504.0250, L200.0200, L350.1000, M100.2000, L503.0300 #### [facility] Laboratory [address] [place], [address] Nucleated RBC (Bld) [#/Vol] 0 10*3/uL Normal 0-5 [facility] Comment on above: Performed By: #### M 100.2900, M100.4001, L001.0705, L504.0250, L200.0200, L350.1000, M100.2000, L503.0300 #### [facility] Laboratory [address] [place], [address] Platelet mean volume (Bld) [Entitic vol] 9.6 fL Normal 6.2-12.0 [facility] Comment on above: Performed By: #### M 100.2900, M100.4001, L001.0705, L504.0250, L200.0200, L350.1000, M100.2000, L503.0300 #### [facility] Laboratory [address] [place], [address] Platelets (Bld) [#/Vol] 287 10*3/uL Normal 150-450 [facility] Comment on above: Performed By: #### M 100.2900, M100.4001, L001.0705, L504.0250, L200.0200, L350.1000, M100.2000, L503.0300 #### [facility] Laboratory [address] [place], [address] RBC (Bld) [#/Vol] 2.82 10*6/uL Low 4.6-6.2 [facility] Comment on above: Performed By: #### M 100.2900, M100.4001, L001.0705, L504.0250, L200.0200, L350.1000, M100.2000, L503.0300 #### [facility] Laboratory [address] [place], [address] RDW SD 44.0 fl High 35.1-43.9 [facility] Comment on above: Performed By: #### M 100.2900, M100.4001, L001.0705, L504.0250, L200.0200, L350.1000, M100.2000, L503.0300 #### [facility] Laboratory [address] [place], [address] WBC (Bld) [#/Vol] 6.4 10*3/uL Normal 4.4-11.0 [facility] Comment on above: Performed By: #### M 100.2900, M100.4001, L001.0705, L504.0250, L200.0200, L350.1000, M100.2000, L503.0300 #### [facility] [address] [place], [address] Eosinophil percentageOrdered By: Michelet Donovan on 01-20-2025 Eosinophils/100 WBC (Bld) 4.4 % 0-5 [facility] Erythrocyte distribution wid th ratioOrdered By: Michelet Donovan on 01-20-2025 Erythrocyte distribution width (RBC) [Ratio] 13.3 % 11.6-14.6 [facility] Erythrocyte distribution wid th standard deviationOrdered By: Michelet Donovan on 01-20-2025 Erythrocyte distribution width (RBC) [Ratio] 44.0 fl High 35.1-43.9 [facility] Hematocrit Auto (Bld) [Volum e fraction]Ordered By: Michelet Donovan on 01-20-2025 Hematocrit (Bld) [Volume fraction] 25.6 % Low 40-54 [facility] Hemoglobin measurementOrdere d By: Michelet Donovan on 01-20-2025 Hemoglobin (Bld) [Mass/Vol] 8.2 g/dL Low 13.0-16.5 [facility] Immature granulocytes/100 WB C Auto (Bld)Ordered By: Michelet Donovan on 01-20-2025 Immature granulocytes/100 WBC (Bld) 0.600 % 0.0-0.9 [facility] Comment on above: IG% - Immature Granu locytes (promyelocytes, myelocytes and metamyelocytes) > 1% indicates that a LEFT SHIFT is Present. MCV (mean corpuscular volume ) determinationOrdered By: Michelet Donovan on 01-20-2025 MCV (RBC) [Entitic vol] 90.8 fL 80-94 [facility] Mean corpuscular hemoglobin (MCH) determinationOrdered By: Michelet Donovan on 01-20-2025 MCH (RBC) [Entitic mass] 29.1 pg 27.0-32.0 [facility] Mean corpuscular hemoglobin concentration (MCHC) determinationOrdered By: Michelet Donovan on 01-20-2025 MCHC (RBC) [Mass/Vol] 32.0 g/dL 32-36 [facility] Mean platelet volume determi nationOrdered By: Michelet Donovan on 01-20-2025 Platelet mean volume (Bld) [Entitic vol] 9.6 fL 6.2-12.0 [facility] Monocyte percentageOrdered B y: Michelet Donovan on 01-20-2025 Monocytes/100 WBC (Bld) 11.5 % High 0-10 [facility] Neutrophil percentageOrdered By: Michelet Donovan on 01-20-2025 Neutrophils/100 WBC (Bld) 76.0 % High 47-70 [facility] Nucleated red blood cell per centageOrdered By: Michelet Donovan on 01-20-2025 Nucleated RBC/100 WBC (Bld) [Ratio] 0 % 0-5 [facility] Platelet countOrdered By: Carin Donovan on 01-20-2025 Platelets (Bld) [#/Vol] 287 10*3/uL 150-450 [facility] RBC Auto (Bld) [#/Vol]Ordere d By: Michelet Donovan on 01-20-2025 RBC (Bld) [#/Vol] 2.82 10*6/uL Low 4.6-6.2 [facility] Thoracentesis W on 025 Thoracentesis W [facility] Imaging Services [address] [place] [address] Thoracentesis W MR#: [id number] Acct: [id number] Name: ISABEL,JUJU JOVANNY Rep #: [id number] : 1945 M 79 From: Rodney Gavin PCP: Dr. Michelet Good DO Status: ADM IN Study: Thoracentesis W US Date of Exam: 01/20/25 Exam# [id number] Ordering Dr: Michelet Donovan DO PROCEDURE: THORACENTESIS W US 01/21/2025 REASON FOR EXAM: LEFT PLEURAL EFFUSION TECHNIQUE: Diagnostic and therapeutic left THORACENTESIS W US COMPARISON: Abdomen and pelvis CT 01/18/2025. FINDINGS: Procedure: Following informed consent, and using standard sterile technique, an ultrasound-guided left thoracentesis was performed. 2% lidocaine local anesthesia was followed by placement of a 5 Serbian catheter into the left pleural effusion. Approximately 1990 clear yellow fluid was successfully removed. No complication was encountered, in the patient left the department in good condition without significant complaint. US/Thoracentesis W US IMPRESSION: Successful diagnostic and therapeutic ultrasound-guided left thoracentesis. Laboratory results pending. Reading Location: [place] [address] CC: Dr. Michelet Good DO; Dr. Michelet Donovan DO Fire Sprinkler Inspector: Signed Normal [facility] White blood cell (WBC) count Ordered By: Michelet Donovan on 01-20-2025 WBC (Bld) [#/Vol] 6.4 10*3/uL 4.4-11.0 [facility] Albumin, Serumon 01-19-2025 Albumin [Mass/Vol] 3.0 g/dL Low 3.4-4.8 [facility] Comment on above: Performed By: #### M 100.2900, M100.4001, L001.0705, L504.0250, L200.0200, L350.1000, M100.2000, L503.0300 #### [facility] Laboratory [address] [place], [place], [id number] Basic Metabolic Profile (BMP )on 01-19-2025 BUN/CRE 14.2 RATIO Normal - [facility] Comment on above: Performed By: #### M 100.2900, M100.4001, L001.0705, L504.0250, L200.0200, L350.1000, M100.1999, L503.0300 #### [facility] Laboratory [address] [place], [address] Calcium [Mass/Vol] 11.8 mg/dL High 7.6-11.0 [facility] Comment on above: Performed By: #### M 100.2900, M100.4001, L001.0705, L504.0250, L200.0200, L350.1000, M100.1999, L503.0300 #### [facility] Laboratory [address] [place], [address] Chloride [Moles/Vol] 108 mmol/L Normal 98-108 [facility] Comment on above: Performed By: #### M 100.2900, M100.4001, L001.0705, L504.0250, L200.0200, L350.1000, , L503.0300 #### [facility] Laboratory [address] [place], [address] CO2 [Moles/Vol] 19.6 mmol/L Low 21.0-32.0 [facility] Comment on above: Performed By: #### M 100.2900, M100.4001, L001.0705, L504.0250, L200.0200, L350.1000, .1999, L503.0300 #### [facility] Laboratory [address] [place], [address] Creatinine [Mass/Vol] 3.51 mg/dL High 0.70-1.20 [facility] Comment on above: Performed By: #### M 100.2900, M100.4001, L001.0705, L504.0250, L200.0200, L350.1000, M100.2000, L503.0300 #### [facility] Laboratory [address] [place], [address] ECRCL 14.89 ml/min Low 50-250 [facility] Comment on above: Performed By: #### M 100.2900, M100.4001, L001.0705, L504.0250, L200.0200, L350.1000, M100.2000, L503.0300 #### [facility] Laboratory [address] [place], [address] GAP 13 Normal 5-15 [facility] Comment on above: Performed By: #### M 100.2900, M100.4001, L001.0705, L504.0250, L200.0200, L350.1000, M100.2000, L503.0300 #### [facility] Laboratory [address] [place], [address] GFR/1.73 sq M.predicted among non-blacks MDRD (S/P/Bld) [Vol rate/Area] 17 mL/min/{1.73_m2} Low >60 [facility] Comment on above: Result Comment: mL/m in/1.73m2 CKD-EPI Creatinine Equation (2020) Performed By: #### M 100.2900, M100.4001, L001.0705, L504.0250, L200.0200, L350.1000, M100.2000, L503.0300 #### [facility] Laboratory [address] [place], [address] Glucose [Mass/Vol] 80 mg/dL Normal 70-99 [facility] Comment on above: Performed By: #### M 100.2900, M100.4001, L001.0705, L504.0250, L200.0200, L350.1000, M100.2000, L503.0300 #### [facility] Laboratory [address] [place], [address] Potassium [Moles/Vol] 4.2 mmol/L Normal 3.3-5.1 [facility] Comment on above: Performed By: #### M 100.2900, M100.4001, L001.0705, L504.0250, L200.0200, L350.1000, M100.1999, L503.0300 #### [facility] Laboratory [address], [address] Sodium [Moles/Vol] 141 mmol/L Normal 133-145 [facility] Comment on above: Performed By: #### M 100.2900, M100.4001, L001.0705, L504.0250, L200.0200, L350.1000, M100.1999, L503.0300 #### [facility] Laboratory [address] [place], [address] Urea nitrogen [Mass/Vol] 50 mg/dL High 4-19 [facility] Comment on above: Performed By: #### M 100.2900, M100.4001, L001.0705, L504.0250, L200.0200, L350.1000, M1.1999, L503.0300 #### [facility] Laboratory [address] [place], [address] CBC W/Diff, Automatedon 08-2 0-2024 Absolute Lymph 0.40 X10 3/uL Low 0.83-4.51 [facility] Comment on above: Performed By: #### M 100.2900, M100.4001, L001.0705, L504.0250, L200.0200, L350.1000, M100.1999, L503.0300 #### [facility] Laboratory [address] [place], [address] Absolute Neut 4.7 X10 3/uL Normal 2.0-7.7 [facility] Comment on above: Performed By: #### M 100.2900, M100.4001, L001.0705, L504.0250, L200.0200, L350.1000, M100.1999, L503.0300 #### [facility] Laboratory [address] [place], [address] Basophils/100 WBC (Bld) 0.5 % Normal 0-1 [facility] Comment on above: Performed By: #### M 100.2900, M100.4001, L001.0705, L504.0250, L200.0200, L350.1000, M100.2000, L503.0300 #### [facility] Laboratory [address] [place], [address] Eosinophils/100 WBC (Bld) 4.3 % Normal 0-5 [facility] Comment on above: Performed By: #### M 100.2900, M100.4001, L001.0705, L504.0250, L200.0200, L350.1000, M100.2000, L503.0300 #### [facility] Laboratory [address], [address] Erythrocyte distribution width (RBC) [Ratio] 13.2 % Normal 11.6-14.6 [facility] Comment on above: Performed By: #### M 100.2900, M100.4001, L001.0705, L504.0250, L200.0200, L350.1000, M100.2000, L503.0300 #### [facility] Laboratory [address], [address] Hematocrit (Bld) [Volume fraction] 25.6 % Low 40-54 [facility] Comment on above: Performed By: #### M 100.2900, M100.4001, L001.0705, L504.0250, L200.0200, L350.1000, M100.2000, L503.0300 #### [facility] Laboratory [address], [address] Hemoglobin (Bld) [Mass/Vol] 8.3 g/dL Low 13.0-16.5 [facility] Comment on above: Performed By: #### M 100.2900, M100.4001, L001.0705, L504.0250, L200.0200, L350.1000, M100.2000, L503.0300 #### [facility] Laboratory [address], [address] IG% 0.300 Normal 0.0-0.9 [facility] Comment on above: Result Comment: IG% - Immature Granulocytes (promyelocytes, myelocytes and metamyelocytes) > 1% indicates that a LEFT SHIFT is Present. Performed By: #### M 100.2900, M100.4001, L001.0705, L504.0250, L200.0200, L350.1000, M100.2000, L503.0300 #### [facility] Laboratory [address] [facility] [place], [address] Lymphocytes/100 WBC (Bld) 6.6 % Low 19-41 [facility] Comment on above: Performed By: #### M 100.2900, M100.4001, L001.0705, L504.0250, L200.0200, L350.1000, M100.2000, L503.0300 #### [facility] Laboratory [address] [facility] [place], [address] MCH (RBC) [Entitic mass] 29.4 pg Normal 27.0-32.0 [facility] Comment on above: Performed By: #### M 100.2900, M100.4001, L001.0705, L504.0250, L200.0200, L350.1000, M100.2000, L503.0300 #### [facility] Laboratory [address] [facility] [place], [address] MCHC (RBC) [Mass/Vol] 32.4 g/dL Normal 32-36 [facility] Comment on above: Performed By: #### M 100.2900, M100.4001, L001.0705, L504.0250, L200.0200, L350.1000, M100.2000, L503.0300 #### [facility] Laboratory [address] [place], [address] MCV (RBC) [Entitic vol] 90.8 fL Normal 80-94 [facility] Comment on above: Performed By: #### M 100.2900, M100.4001, L001.0705, L504.0250, L200.0200, L350.1000, M100.1999, L503.0300 #### [facility] Laboratory [address] [place], [address] Monocytes/100 WBC (Bld) 10.8 % High 0-10 [facility] Comment on above: Performed By: #### M 100.2900, M100.4001, L001.0705, L504.0250, L200.0200, L350.1000, M100.1999, L503.0300 #### [facility] Laboratory [address] [place], [address] Neutrophils/100 WBC (Bld) 77.5 % High 47-70 [facility] Comment on above: Performed By: #### M 100.2900, M100.4001, L001.0705, L504.0250, L200.0200, L350.1000, M100.2000, L503.0300 #### [facility] Laboratory [address] [place], [address] Nucleated RBC (Bld) [#/Vol] 0 10*3/uL Normal 0-5 [facility] Comment on above: Performed By: #### M 100.2900, M100.4001, L001.0705, L504.0250, L200.0200, L350.1000, M100.1999, L503.0300 #### [facility] Laboratory [address] [place], [address] Platelet mean volume (Bld) [Entitic vol] 10.2 fL Normal 6.2-12.0 [facility] Comment on above: Performed By: #### M 100.2900, M100.4001, L001.0705, L504.0250, L200.0200, L350.1000, M100.2000, L503.0300 #### [facility] Laboratory [address], [address] Platelets (Bld) [#/Vol] 313 10*3/uL Normal 150-450 [facility] Comment on above: Performed By: #### M 100.2900, M100.4001, L001.0705, L504.0250, L200.0200, L350.1000, M100.2000, L503.0300 #### [facility] Laboratory [address] [place], [address] RBC (Bld) [#/Vol] 2.82 10*6/uL Low 4.6-6.2 [facility] Comment on above: Performed By: #### M 100.2900, M100.4001, L001.0705, L504.0250, L200.0200, L350.1000, M100.2000, L503.0300 #### [facility] Laboratory [address], [address] RDW SD 44.0 fl High 35.1-43.9 [facility] Comment on above: Performed By: #### M 100.2900, M100.4001, L001.0705, L504.0250, L200.0200, L350.1000, M100.2000, L503.0300 #### [facility] Laboratory [address] [place], [address] WBC (Bld) [#/Vol] 6.0 10*3/uL Normal 4.4-11.0 [facility] Comment on above: Performed By: #### M 100.2900, M100.4001, L001.0705, L504.0250, L200.0200, L350.1000, M100.2000, L503.0300 #### [facility] Laboratory [address] [place], [address] Electrocardiogram reportOrde red By: Misale Gutiérrez on 01-19-2025 EKG study [facility] Cardiovascular Services [address] [place] [address] 12 Lead EKG 01/18/25 0526 MR#: [id number] Acct: [id number] Name: JUJU CACERES Rep #:[id number] : 1945 79 From: Misael Gutiérrez MD Attending Dr: Dr. Michelet Donovan DO Status: ADM IN Ordering Dr: Kenrick Ott DO Date: 01/18/25 Location: [facility] Sex: M C Admitted: 01/18/25 Test Reason : CP Blood Pressure : */* mmHG Vent. Rate : 104 BPM Atrial Rate : 104 BPM P-R Int : 194 ms QRS Dur : 82 ms QT Int : 320 ms P-R-T Axes : 51 12 80 degrees QTcB Int : 420 ms Sinus tachycardia Nonspecific T wave abnormality Abnormal ECG Confirmed by DAVON MCGOVERN, MISAEL ([id number]), production editor KIANNA ORTEGA ([id number]) on 01/19/2025 9:35:56 AM Referred By: ES Confirmed By: MISAEL GUTIÉRREZ MD 01/19/25 0936 Date _ Misael Gutiérrez MD CC: Dr. Kenrick Ott, ; Dr. Michelet Good, ; Dr. Michelet Donovan, ~ Signed [facility] Other Phone: [place] [employer] 01-19-2025 FR KAPPA LT CHN 37.6 mg/L Abnormal 3.3-19.4 [facility] Comment on above: Performed By: #### L 3130.0010, L506.1001, L509.1000, L3300.0960 #### [facility] Laboratory [address] [place], [place], [id number] FR LAMBDA LT CH 47.6 mg/L Abnormal 5.7-26.3 [facility] Comment on above: Performed By: #### L 3130.0010, L506.1001, L509.1000, L3300.0960 #### [facility] Laboratory [address] [place], [place], [id number] KAPPA/LAMBDA % 0.79 Normal 0.26-1.65 [facility] Comment on above: Result Comment: Perf ormed at: CB - [facility] [address] [id number] Section Maintainer: Torito Green PhD, Phone: [phone] Performed By: #### L 3130.0010, L506.1001, L509.1000, L3300.0960 #### [facility] Laboratory [address] [place], [place], [address] 12 Lead EKGon 01-18-2025 12 Lead EKG [facility] Cardiovascular Services [address] [place] [address] 12 Lead EKG 01/18/25 0526 MR#: [id number] Acct: [id number] Name: JUJU CACERES Rep #: [id number] : 1945 79 From: Misael Gutiérrez MD Attending Dr: Dr. Michelet Donovan DO Status: A DM IN Ordering Dr: Kenrick Ott DO Date: 01/18/25 Location: [facility] Sex: M C Admitted: 01/18/25 Test Reason : CP Blood Pressure : */* mmHG Vent. Rate : 104 BPM Atrial Rate : 104 BPM P-R Int : 194 ms QRS Dur : 82 ms QT Int : 320 ms P-R-T Axes : 51 12 80 degrees QTcB Int : 420 ms Sinus tachycardia Nonspecific T wave abnormality Abnormal ECG Confirmed by MISAEL GUTIÉRREZ MD ([id number]), production editor KIANNA ORETGA ([id number]) on 01/19/2025 9:35:56 AM Referred By: ES Confirmed By: MISAEL GUTIÉRREZ MD 01/19/25 0936 Date Misael Gutiérrez MD CC: Dr. Kenrick Ott DO; Dr. Michelet Good DO; Dr. Michelet Donovan DO Signed Normal [facility] Abdomen/Pelvis without Conto n 01-18-2025 Abdomen/Pelvis without Cont [facility] Imaging Services [address] [place], [place] [address] Abdomen/Pelvis without Cont MR#: [id number] Acct: [id number] Name: JUJU CACERES Rep #: [id number] : 1945 M 79 From: Nigel schneider MD PCP: Dr. Michelet Good DO Status: ADM IN Study: Abdomen/Pelvis without Cont Date of Exam: 12/31 02/24 Exam# [id number] Ordering Dr: Michelet Donovan DO PROCEDURE: ABDOMEN/PELVIS WITHOUT CONT 01/18/2025 REASON FOR EXAM: HYDRONEPHROSIS, POSSIBLE LYMPHOMA TECHNIQUE: ABDOMEN/PELVIS WITHOUT CONT Noncontrast technique limits evaluation of the abdominal and pelvic viscera. Coronal and Sagittal reconstruction series were provided. One or more dose reduction techniques were used (e.g., Automated exposure control, adjustment of the mA and/or kV according to patient size, use of iterative reconstruction technique). RADIATION DOSE SUMMARY: CTDlvol: 9.39 mGy DLP: 453.37 mGycm COMPARISON: Prior sonogram of the kidneys done earlier in the day. FINDINGS: Lung bases: Moderate left pleural effusion with left basilar atelectasis. Nodular thickening along the medial aspect of the left pleural space as well as pericardial thickening. Metastatic deposit should be ruled out. Liver: Normal size. No obvious mass. Gallbladder: Unremarkable Spleen: Mild splenomegaly. Pancreas: Normal size. No surrounding inflammation. Adrenals: Unremarkable Kidneys: Mild degree of right hydronephrosis and right hydroureter. No evidence of ureteral calculus. Nonspecific mild bilateral perinephric stranding. Bladder: Unremarkable Mildly enlarged prostate with central calcification. Bowel: Colonic diverticulosis without diverticulitis. Appendix: Unremarkable Lymph nodes: No suspicious lymph node enlargement. Vasculature: Mild diffuse atherosclerotic calcifications are noted. Peritoneum / Retroperitoneum: Findings suggestive of a 2 point 4 cm by 3 cm irregular soft tissue mass in the right hemipelvis as seen on axial image number 86. Bones: Degenerative changes of the spine. Straightening of the normal lumbar lordosis. CT/Abdomen/Pelvis without Cont IMPRESSION: Moderate-sized left pleural effusion with left basilar compressive atelectasis. Nodular thickening along the medial aspect of the left pleural with the thickening of the pericardium. Metastatic deposit should be ruled out. Mild degree of right hydronephrosis and right hydroureter. No obstructive calculus is seen at this time. Questionable 3 cm x 2.4 cm irregular mass in the right hemipelvis as described. Reading Location: [id number] CC: Dr. Michelet Good, ; Dr. Michelet Donovan, Fire Sprinkler Inspector: Signed Normal [facility] Absolute lymphocyte countOrd ered By: Kenrick Ott on 01-18-2025 Lymphocytes Auto (Unsp spec) [#/Vol] 0.89 10*3/uL 0.83-4.51 [facility] Absolute neutrophil countOrd ered By: Kenrick Ott on 01-18-2025 Neutrophils (Bld) [#/Vol] 5.7 10*3/uL 2.0-7.7 [facility] Anion gap in Serum or Plasma Ordered By: Kenrick Ott on 01-18-2025 Anion gap [Moles/Vol] 15 mmol/L 5-15 [facility] Automated lymphocyte count a s percentage of total leukocytesOrdered By: Kenrick Ott on 01-18-2025 Lymphocytes/100 WBC Auto (Unsp spec) 11.1 % Low 19- [facility] BUN/creatinine ratioOrdered By: Kenrick Ott on 01-18-2025 Urea nitrogen/Creatinine [Mass ratio] 13.6 mg/mg - [facility] Basic Metabolic Profile (BMP )on 01-18-2025 BUN/CRE 13.6 RATIO Normal - [facility] Comment on above: Performed By: #### M 100.2900, M100.4001, L001.0705, L504.0250, L200.0200, L350.1000, M100.1999, L503.0300 #### [facility] Laboratory [address] [place], [address] Calcium [Mass/Vol] 13.6 mg/dL Invalid Interpretation Code 7.6-11.0 [facility] Comment on above: Result Comment: Crit ical Result(s) Called at: 0632 by: YENI HAVEN TO EDDIE MATHUR??Results read back by same. Performed By: #### M 100.2900, M100.4001, L001.0705, L504.0250, L200.0200, L350.1000, M100.1999, L503.0300 #### [facility] Laboratory [address] [place], [address] Chloride [Moles/Vol] 101 mmol/L Normal 98-108 [facility] Comment on above: Performed By: #### M 100.2900, M100.4001, L001.0705, L504.0250, L200.0200, L350.1000, M100.1999, L503.0300 #### [facility] Laboratory [address] [place], [address] CO2 [Moles/Vol] 21.7 mmol/L Normal 21.0-32.0 [facility] Comment on above: Performed By: #### M 100.2900, M100.4001, L001.0705, L504.0250, L200.0200, L350.1000, M100.2000, L503.0300 #### [facility] Laboratory [address] [place], [address] Creatinine [Mass/Vol] 3.72 mg/dL High 0.70-1.20 [facility] Comment on above: Performed By: #### M 100.2900, M100.4001, L001.0705, L504.0250, L200.0200, L350.1000, M100.1999, L503.0300 #### [facility] Laboratory [address] [place], [address] ECRCL 14.05 ml/min Low 50-250 [facility] Comment on above: Performed By: #### M 100.2900, M100.4001, L001.0705, L504.0250, L200.0200, L350.1000, M100.2000, L503.0300 #### [facility] Laboratory [address] [place], [address] GAP 15 Normal 5-15 [facility] Comment on above: Performed By: #### M 100.2900, M100.4001, L001.0705, L504.0250, L200.0200, L350.1000, M100.2000, L503.0300 #### [facility] Laboratory [address] [place], [address] GFR/1.73 sq M.predicted among non-blacks MDRD (S/P/Bld) [Vol rate/Area] 16 mL/min/{1.73_m2} Low >60 [facility] Comment on above: Result Comment: mL/m in/1.73m2 CKD-EPI Creatinine Equation (2020) Performed By: #### M 100.2900, M100.4001, L001.0705, L504.0250, L200.0200, L350.1000, M100.2000, L503.0300 #### [facility] Laboratory [address] [place], [address] Glucose [Mass/Vol] 98 mg/dL Normal 70-99 [facility] Comment on above: Performed By: #### M 100.2900, M100.4001, L001.0705, L504.0250, L200.0200, L350.1000, M100.2000, L503.0300 #### [facility] Laboratory [address] [place], [address] Potassium [Moles/Vol] 4.0 mmol/L Normal 3.3-5.1 [facility] Comment on above: Performed By: #### M 100.2900, M100.4001, L001.0705, L504.0250, L200.0200, L350.1000, M100.2000, L503.0300 #### [facility] Laboratory [address] [place], [address] Sodium [Moles/Vol] 139 mmol/L Normal 133-145 [facility] Comment on above: Performed By: #### M 100.2900, M100.4001, L001.0705, L504.0250, L200.0200, L350.1000, M100.2000, L503.0300 #### [facility] Laboratory [address] [place], [address] Urea nitrogen [Mass/Vol] 51 mg/dL High 09-18 [facility] Comment on above: Performed By: #### M 100.2900, M100.4001, L001.0705, L504.0250, L200.0200, L350.1000, M100.2000, L503.0300 #### [facility] Laboratory [address] [place], [address] Basophil percentageOrdered B y: Kenrick Ott on 01-18-2025 Basophils/100 WBC (Bld) 0.9 % 0-1 [facility] Bilirubin Test strip Ql (U)O rdered By: Natalie Yen on 01-18-2025 Bilirubin Ql (U) Negative Negative [facility] CBC W/Diff, Automatedon 12-31 Absolute Lymph 0.89 X10 3/uL Normal 0.83-4.51 [facility] Comment on above: Performed By: #### M 100.2900, M100.4001, L001.0705, L504.0250, L200.0200, L350.1000, M100.2000, L503.0300 #### [facility] Laboratory [address] [place], [address] Absolute Neut 5.7 X10 3/uL Normal 2.0-7.7 [facility] Comment on above: Performed By: #### M 100.2900, M100.4001, L001.0705, L504.0250, L200.0200, L350.1000, M100.2000, L503.0300 #### [facility] Laboratory [address] [place], [address] Basophils/100 WBC (Bld) 0.9 % Normal 0-1 [facility] Comment on above: Performed By: #### M 100.2900, M100.4001, L001.0705, L504.0250, L200.0200, L350.1000, M100.2000, L503.0300 #### [facility] Laboratory [address] [place], [address] Eosinophils/100 WBC (Bld) 4.7 % Normal 0-5 [facility] Comment on above: Performed By: #### M 100.2900, M100.4001, L001.0705, L504.0250, L200.0200, L350.1000, M100.2000, L503.0300 #### [facility] Laboratory [address] [place], [address] Erythrocyte distribution width (RBC) [Ratio] 13.2 % Normal 11.6-14.6 [facility] Comment on above: Performed By: #### M 100.2900, M100.4001, L001.0705, L504.0250, L200.0200, L350.1000, M100.2000, L503.0300 #### [facility] Laboratory [address] [place], [address] Hematocrit (Bld) [Volume fraction] 30.8 % Low 40-54 [facility] Comment on above: Performed By: #### M 100.2900, M100.4001, L001.0705, L504.0250, L200.0200, L350.1000, M100.2000, L503.0300 #### [facility] Laboratory [address] [place], [address] Hemoglobin (Bld) [Mass/Vol] 10.2 g/dL Low 13.0-16.5 [facility] Comment on above: Performed By: #### M 100.2900, M100.4001, L001.0705, L504.0250, L200.0200, L350.1000, M100.2000, L503.0300 #### [facility] Laboratory [address] [place], [address] IG% 0.200 Normal 0.0-0.9 [facility] Comment on above: Result Comment: IG% - Immature Granulocytes (promyelocytes, myelocytes and metamyelocytes) > 1% indicates that a LEFT SHIFT is Present. Performed By: #### M 100.2900, M100.4001, L001.0705, L504.0250, L200.0200, L350.1000, M100.2000, L503.0300 #### [facility] Laboratory [address] [place], [address] Lymphocytes/100 WBC (Bld) 11.1 % Low 19-41 [facility] Comment on above: Performed By: #### M 100.2900, M100.4001, L001.0705, L504.0250, L200.0200, L350.1000, M100.2000, L503.0300 #### [facility] Laboratory [address] [place], [address] MCH (RBC) [Entitic mass] 29.1 pg Normal 27.0-32.0 [facility] Comment on above: Performed By: #### M 100.2900, M100.4001, L001.0705, L504.0250, L200.0200, L350.1000, M100.2000, L503.0300 #### [facility] Laboratory [address] [place], [address] MCHC (RBC) [Mass/Vol] 33.1 g/dL Normal 32-36 [facility] Comment on above: Performed By: #### M 100.2900, M100.4001, L001.0705, L504.0250, L200.0200, L350.1000, M100.2000, L503.0300 #### [facility] Laboratory [address] [place], [address] MCV (RBC) [Entitic vol] 88.0 fL Normal 80-94 [facility] Comment on above: Performed By: #### M 100.2900, M100.4001, L001.0705, L504.0250, L200.0200, L350.1000, M100.2000, L503.0300 #### [facility] Laboratory [address] [place], [address] Monocytes/100 WBC (Bld) 12.3 % High 0-10 [facility] Comment on above: Performed By: #### M 100.2900, M100.4001, L001.0705, L504.0250, L200.0200, L350.1000, M100.2000, L503.0300 #### [facility] Laboratory [address], [address] Neutrophils/100 WBC (Bld) 70.8 % High 47-70 [facility] Comment on above: Performed By: #### M 100.2900, M100.4001, L001.0705, L504.0250, L200.0200, L350.1000, M100.2000, L503.0300 #### [facility] Laboratory [address] [place], [address] Nucleated RBC (Bld) [#/Vol] 0 10*3/uL Normal 0-5 [facility] Comment on above: Performed By: #### M 100.2900, M100.4001, L001.0705, L504.0250, L200.0200, L350.1000, M100.2000, L503.0300 #### [facility] Laboratory [address] [place], [address] Platelet mean volume (Bld) [Entitic vol] 10.2 fL Normal 6.2-12.0 [facility] Comment on above: Performed By: #### M 100.2900, M100.4001, L001.0705, L504.0250, L200.0200, L350.1000, M100.1999, L503.0300 #### [facility] Laboratory [address] [place], [address] Platelets (Bld) [#/Vol] 380 10*3/uL Normal 150-450 [facility] Comment on above: Performed By: #### M 100.2900, M100.4001, L001.0705, L504.0250, L200.0200, L350.1000, M100.1999, L503.0300 #### [facility] Laboratory [address] [place], [address] RBC (Bld) [#/Vol] 3.50 10*6/uL Low 4.6-6.2 [facility] Comment on above: Performed By: #### M 100.2900, M100.4001, L001.0705, L504.0250, L200.0200, L350.1000, M100.2000, L503.0300 #### [facility] Laboratory [address] [place], [address] RDW SD 42.5 fl Normal 35.1-43.9 [facility] Comment on above: Performed By: #### M 100.2900, M100.4001, L001.0705, L504.0250, L200.0200, L350.1000, M100.2000, L503.0300 #### [facility] Laboratory [address] [place], [address] WBC (Bld) [#/Vol] 8.0 10*3/uL Normal 4.4-11.0 [facility] Comment on above: Performed By: #### M 100.2900, M100.4001, L001.0705, L504.0250, L200.0200, L350.1000, M100.2000, L503.0300 #### [facility] Laboratory [address] [facility] [place], [address] Carbon dioxide, total [Moles /volume] in Central venous bloodOrdered By: Kenrick Ott on 01-18-2025 CO2 [Moles/Vol] 21.7 mmol/L 21.0-32.0 [facility] Chest PA and Lateralon 01-18 Chest PA and Lateral [facility] Imaging Services [address] [place] [address] Chest PA and Lateral MR#: [id number] Acct: [id number] Name: JUJU CACERES Rep #: [id number] : 1945 M 79 From: Santi De La Rosa MD PCP: Dr. Michelet Good DO Status: PRE ER Study: Chest PA and Lateral Date of Exam: 01/18/25 Exam# [id number] Ordering Dr: Kenrick Ott DO PROCEDURE: CHEST PA AND LATERAL 01/18/2025 REASON FOR EXAM: DYSPNEA TECHNIQUE: CHEST PA AND LATERAL COMPARISON: September 18, 2020 FINDINGS: Heart size is within normal limits. Central vascularity appears normal. There is a moderate left pleural effusion. There is no visible pneumothorax. There is no acute bony abnormality. Aortic calcifications are visible. RAD/Chest PA and Lateral IMPRESSION: There is a moderate size left pleural effusion. Reading Location: [facility] CC: Dr. Kenrick Ott DO; Dr. Michelet Good DO Fire Sprinkler Inspector: Signed Normal [facility] Chloride assayOrdered By: Blaise Ott on 01-18-2025 Chloride [Moles/Vol] 101 mmol/L 98-108 [facility] Consultation - Nephrologyon 01-18-2025 Consultation - Nephrology [facility] Medical Records Department [address] [place] [address] Consultation - Nephrology 01/18/25 1134 MR#: [id number] Acct: [id number] Name: JUJU CACERES Rep #: [id number] : 1945 79 From: Natalie Yen [employer] PCP: Dr. Michelet Good, DO Status:ADM IN Location: [place] [address] Assessment Plan Assessment/Plan (1) Acute kidney injury: (2) Hypercalcemia: (3) Recurrent left pleural effusion: PLAN: Plan This is an 79-year-old male with no significant past medical history presenting to the emergency room with complaints of tightness of chest when trying to lay flat. Workup in the emergency room patient found to have serum creatinine 3.72, potassium 4.0, bicarb 21, calcium 13.6. Nephrology consulted in view of elevated creatinine. Baseline serum creatinine is unknown however patient did have lab work on December 02, 2024 creatinine 1.60, potassium and bicarb were normal and calcium was 10.7. Before that lab work in 2017 showed normal creatinine and calcium. Renal ultrasound showed mild right hydronephrosis. Patient is to undergo noncontrast CT of abdomen and pelvis. Patient has been started on IV fluids and will receive a dose of Zometa for his hypercalcemia. Stop vitamin D. Will order kappa lambda light chains, PTH, vitamin D 1, 25 hydroxy and vitamin D 25-hydroxy. 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 At this time there is no acute indication for renal placement therapy, volume status appears near euvolemic but patient does have room for IV fluids. Potassium and bicarb normal. Few weeks ago patient did undergo thoracentesis and fluid for cytology resulted in lymphocytosis with atypical features suspicious for lymphoproliferative disorder. Further workup is underway. Nephrology plan was discussed with patient and his , questions were answered. Further orders forthcoming as hospitalization evolves, thank you for allowing us to participate in the care of Mr. Caceres. Assessment and plan reviewed Dr. Gutierrez HPI Consult Data Date of Consult: 01/18/25 [facility] Narrative HPI Narrative: JUJU CACERES, is a 79 M with no significant past medical history who presented to the emergency room this morning with complaints of feeling tightness in chest when trying to lay flat. Workup in the emergency room included lab work: White count normal, serum creatinine 3.72, potassium 4.0, bicarb 21, calcium 13.6, troponin 31. Chest x-ray moderate left pleural effusion. Renal ultrasound right kidney 11.1 cm, left kidney 12 cm, mild hydronephrosis on the right, left is normal. Nephrology consulted in view of elevated creatinine. Patient was seen and evaluated this morning in the emergency room. Patient reports he has not been seen by nephrology. Patient reports some months ago he noted unintentional weight loss therefore followed up with PCP however before then he had not been having routine PCP appointments. Patient does not take any prescribed medications. Patient states he takes eye vitamin daily and vitamin D 5000 units daily. Patient states he had been having generalized pain and took Aleve last week but does not take this routinely or daily. Does not take Tylenol. Patient does state he noticed his skin to be itchy and noted decrease in taste. Patient states he has had about a 20 pound unintentional weight loss. No vomiting, no nausea, does not take Tums or calcium. Patient denies any hematuria, dysuria, nocturia, urgency or hesitancy. [facility] Medical History (Updated 01/18/25 @ 11:40 by GIRMA Adams) Pleural effusion Lung mass Macular degeneration Home Medications ???Medication ???Instructions ???Recorded ???Last Taken ???Type NK 01/18/25 Unknown History Allergy/AdvReac Type Severity Reaction Status Date / Time No Known Allergies Allergy Verified 01/18/25 05:18 Family History (Updated 12/27/24 @ 10:43 by Mirna Griffiths LPN) Brother Cancer throat Surgical History (Updated 01/18/25 @ 06:[address] 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 On room air Abdomen soft, nontender, nondistended No edema Lab / Micro Data 01/18/25 05:30 01/18/25 (more content not included)... Normal [facility] Emergency Department Summary on 01-18-2025 Emergency Department Summary [facility] Medical Records Department [address] [place] [address] Emergency Department Summary 01/18/25 MR#: [id number] Acct: [id number] Name: JUJU CACERES Rep #: [id number] : 1945 79 From: Kenrick Ott DO PCP: Dr. Michelet Good DO Status:ADM IN Location: [place] [address] HPI History of Present Illness Chief Complaint: Shortness of Breath Informant: patient Onset/Context/Timing Onset: Days (2) Context: gradual Timing: Intermittent Quality: Positive for Orthopnea Worsened by: Lying flat Relieved by: - (Sitting up) Associated Symptoms Negative for cough, rhinorrhea, post nasal drip, ear pain, fever, sore throat, chills, sweats, clear sputum, white sputum, yellow sputum or green sputum Chest Pain: Positive for Tightness (Left chest) Narrative Narrative: Patient presents with shortness of breath that has been intermittent over the past 2 days. Patient states it is worse when he lays flat. Patient states it is better when he sits up. Patient states he had a recent thoracentesis where they drained 1 L of fluid off of his left lung. Patient admits to a mild cough. Patient denies any sputum production. Patient admits to some tightness over the left side of his chest. Patient denies any fevers or chills. Patient denies any sore throat or rhinorrhea. PE Risk Factors: Negative for Cancer, OCP + Smoking + > 35, Prior DVT or PE, Recent immobilization, Recent surgery or Recent travel [facility] Medical History (Updated 01/18/25 @ 06:[address] Kenrick Ott DO) Pleural effusion Lung mass Macular degeneration Home Medications ???Medication ???Instructions ???Recorded ???Last Taken ???Type NK 01/18/25 Unknown History Allergy/AdvReac Type Severity Reaction Status Date / Time No Known Allergies Allergy Verified 01/18/25 05:18 Family History (Updated 12/27/24 @ 10:43 by Mirna Griffiths LPN) Brother Cancer throat Surgical History (Updated 01/18/25 @ 06:[address] 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 pets and animals: No history of recent travel: No Smoking Status: Never smoker alcohol intake: never substance use type: does not use caffeine: No what type of physical activity do you participate in: walking seatbelt use: always ROS ROS ED Constitutional Constitutional ED: Denies chills or fever(s) Eyes Eyes: Denies blurry vision or change in vision ENT ENT ED: Denies rhinorrhea or sore throat Cardiovascular Cardiovascular: Reports chest pain; Denies palpitations Respiratory/Chest Respiratory/Chest: Reports dyspnea; Denies cough Gastrointestinal Gastrointestinal: Denies nausea or vomiting Genitourinary Genitourinary ED: Denies dysuria or hematuria Musculoskeletal Musculoskeletal: Denies back pain or neck pain Integumentary Denies abscess or rash Neurologic Neurologic: Reports weakness; Denies headache(s) Allergic/Immunologic Allergic/Immunologic ED: Denies mouth swelling or urticaria EXAM Physical Exam Const Vital Signs: 01/18/25 05:17 01/18/25 05:17 01/18/25 06:17 Temperature 98.9 F Temperature Source Oral Pulse Rate 115 H 90 Respiratory Rate 18 14 Respiratory Effort Short of Breath Respiratory Pattern Tachypnea Blood Pressure 170/90 H 142/79 H Blood Pressure Mean 116 100 Pulse Ox 96 98 Oxygen Delivery Method Room Air Room Air Room Air 01/18/25 07:00 01/18/25 07:12 01/18/25 08:26 Temperature 98 F Temperature Source Pulse Rate 85 89 92 Respiratory Rate 15 17 Respiratory Effort Respiratory Pattern Blood Pressure 142/77 H 161/71 H Blood Pressure Mean 98 101 Pulse Ox 99 97 Oxygen Delivery Method 01/18/25 09:04 01/18/25 10:02 Temperature Temperature Source Pulse Rate 84 75 Respiratory Rate 31 H 18 Respiratory Effort Respiratory Pattern Blood Pressure 154/86 H Blood Pressure Mean 108 Pulse Ox 96 100 Oxygen Delivery Method Positive well nourished and well developed Constitutional Narrative: BMI is 24.8. General Appearance ED: well developed and NAD HEENT Reports moist mucous membranes Neck supple, no meningeal signs and no JVD Resp normal respiratory effort and clear to auscultation bilaterally Cardio regular rate and regular rhythm GI non-tender and non-distended Palpation: soft Neuro oriented x3, CN's II-XII intact bilaterally and no sensory deficits noted Norbert Coma Scale: document GCS findings Spontaneous Obeys Commands Oriented 15 Sensorium / Orientation: alert Speech: speech normal Motor Exam: strength 5/5 throughout Psych (more content not included)... Normal [facility] Eosinophil percentageOrdered By: Kenrick Ott on 01-18-2025 Eosinophils/100 WBC (Bld) 4.7 % 0-5 [facility] Erythrocyte distribution wid th ratioOrdered By: Kenrick Ott on 01-18-2025 Erythrocyte distribution width (RBC) [Ratio] 13.2 % 11.6-14.6 [facility] Erythrocyte distribution wid th standard deviationOrdered By: Kenrick Ott on 01-18-2025 Erythrocyte distribution width (RBC) [Ratio] 42.5 fl 35.1-43.9 [facility] Glomerular filtration rate ( GFR) estimation/1.73 sq m using serum, plasma, or whole bOrdered By: Kenrick Ott on 01-18-2025 GFR/1.73 sq M.predicted among non-blacks MDRD (S/P/Bld) [Vol rate/Area] 16 mL/min/{1.73_m2} Low >60 [facility] Comment on above: mL/min/1.73m2 CKD-EP I Creatinine Equation (2020) H AND P Exam - [facility] 01-18-2025 H&P Exam - Hospitalist [facility] Medical Records Department [address] [place] [address] H P Exam - Hospitalist 01/18/25 1853 MR#: [id number] Acct: [id number] Name: JUJU CACERES Rep #: [id number] : 1945 79 From: Michelet Donovan DO PCP: Dr. Michelet Good, DO Status:ADM IN Location: [facility]3 [id number] HPI - General General Date of Admission: 01/18/25 Date of Service: 01/18/25 Chief Complaint: Shortness of breath left-sided chest pain HPI Narrative JUJU CACERES, is a 79 M who presents to the emergency room at [facility] with complaints of shortness of breath and left-sided chest pain particularly when he takes a deep breath. Patient states that the shortness of breath is worse when he is lying down. Patient was found to have a left pleural effusion and a lung mass and underwent a thoracentesis on 12/30/2024. He is already seen pulmonary medicine here (Dr. Garcia) and Dr. Garcia referred him to a chest surgeon at [facility] for a pleural biopsy. I contacted pathology here and the pleural fluid was sent for an additional analysis by [facility] and they read out T-cell predominant lymphocytosis on the thoracentesis fluid obtained on 12/30/2024, T-cell receptor gene rearrangement analysis is in progress to assess for clonality and it will be reported as an addendum. Workup in the emergency room included a chest x-ray which showed a moderate left pleural effusion, labs were obtained and they were abnormal for a BUN of 51, creatinine of 3.72, and a calcium of 13.6. Patient's initial troponin was 31, 2-hour troponin was 33. Patient's hemoglobin was 10.2. Patient underwent a renal ultrasound which showed a mild right hydronephrosis. Patient will be admitted to [place] [address] for acute kidney injury and hypercalcemia, he will be seen in consultation by nephrology, I had a brief conversation with nephrology and they advise giving the patient Zometa- pharmacy advised a 4 mg dose. IV fluids will be given and labs will be monitored. Patient will undergo a CT of the abdomen and pelvis while in the hospital. [facility] Medical History (Updated 01/18/25 @ 11:40 by Natalie Yen NP-Hermelinda) Pleural effusion Lung mass Macular degeneration Home Medications ???Medication ???Instructions ???Recorded ???Last Taken ???Type NK 01/18/25 Unknown History Allergy/AdvReac Type Severity Reaction Status Date / Time No Known Allergies Allergy Verified 01/18/25 05:18 Family History (Updated 12/27/24 @ 10:43 by Mirna Griffiths LPN) Brother Cancer throat Surgical History (Updated 01/18/25 @ 06:[address] 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 pets and animals: No history of recent travel: No Smoking Status: Never smoker alcohol intake: never substance use type: does not use caffeine: No what type of physical activity do you participate in: walking seatbelt use: always ROS Constitutional Constitutional: Reports fatigue; Denies anorexia, change in weight, chills, fever(s), night sweats or weakness Eyes Eyes: Denies blurry vision, change in vision, discharge from eye(s) or eye pain Cardiovascular Cardiovascular: Reports dyspnea on exertion; Denies chest pain, claudication, edema or palpitations Respiratory/Chest Respiratory/Chest: Reports dyspnea and shortness of breath with exertion; Denies cough, hemoptysis or shortness of breath at rest Gastrointestinal Gastrointestinal: Denies abdominal pain, constipation, diarrhea, hematemesis, hematochezia, melena, nausea or vomiting Genitourinary Genitourinary: Denies dysuria, hematuria, urinary frequency, urinary hesitancy, urinary incontinence or urinary urgency Musculoskeletal Musculoskeletal: Denies back pain, joint pain, joint stiffness, joint swelling, myalgias or neck pain Neurologic Neurologic: Denies abnormal gait, abnormal speech, dizziness, focal weakness, headache(s), loss of vision, numbness, other visual disturbances, paresthesias, syncope or tingling Psychiatric Psychiatric: Denies anxiety, cognitive impairment, depression, irritability, mood swings or suicidal ideation Endocrine Endocrinology: Denies change in body appearance, cold intolerance, excessive sweating, heat intolerance, polydipsia or polyuria Hematologic/Lymphatic Hematologic/Lymphatic: Denies none, anemia, easy bleeding, easy bruising or lymphadenopathy Allergic/Immunologic Allergic/Immunologic: Denies rhinitis, urticaria, eczemia or asthma Vital Signs Vital Signs Vital Signs: 01/18/25 05:17 01/18/25 05:17 01/18/25 06:17 Temperature 98.9 F Temperature Source Oral Pulse Rate 115 H 90 Respiratory Rate 18 14 (more content not included)... Normal [facility] Hematocrit Auto (Bld) [Volum e fraction]Ordered By: Kenrick Ott on 01-18-2025 Hematocrit (Bld) [Volume fraction] 30.8 % Low 40-54 [facility] Hemoglobin measurementOrdere d By: Kenrick Ott on 01-18-2025 Hemoglobin (Bld) [Mass/Vol] 10.2 g/dL Low 13.0-16.5 [facility] Immature granulocytes/100 WB C Auto (Bld)Ordered By: Kenrick Ott on 01-18-2025 Immature granulocytes/100 WBC (Bld) 0.200 % 0.0-0.9 [facility] Comment on above: IG% - Immature Granu locytes (promyelocytes, myelocytes and metamyelocytes) > 1% indicates that a LEFT SHIFT is Present. Ketones Test strip Ql (U)Ord ered By: Natalie Yen on 01-18-2025 Ketones Ql (U) Negative Negative [facility] Kidney and Bladderon 025 Kidney and Bladder [facility] Imaging Services [address] [place], [place] [id number] Kidney and Bladder MR#: [id number] Acct: [id number] Name: JUJU CACERES Rep #: [id number] : 1945 M 79 From: Jay Bardales MD PCP: Dr. Michelet Good, DO Status: REG ER Study: Kidney and Bladder Date of Exam: 01/18/25 Exam# [id number] Ordering Dr: Kenrick Ott DO PROCEDURE: KIDNEY AND BLADDER 01/18/2025 REASON FOR EXAM: ACUTE KIDNEY INJURY TECHNIQUE: KIDNEY AND BLADDER COMPARISON: None FINDINGS: Kidneys: Right kidney is 11.1 x 5.3 x 6.0 cm, while the left is 12.0 x 4.5 x 6.2 cm. [place]: Mild hydronephrosis on the right. The left is normal. Cysts or Masses: None Bladder: Urinary bladder is normal. Prevoid bladder volume 312 cc. Postvoid bladder volume 0 cc. Bilateral ureteral jets are seen. US/Kidney and Bladder IMPRESSION: Mild dilation of the renal collecting system on the right. Reading Location: [id number] CC: Dr. Kenrick Ott, DO; Dr. Michelet Good, DO Fire Sprinkler Inspector: Signed Normal [facility] L501.4021on 01-18-2025 Trop T High Sen 31 ng/L High <=22 [facility] Comment on above: Performed By: #### M 100.2900, M100.4001, L001.0705, L504.0250, L200.0200, L350.1000, M100.2000, L503.0300 #### [facility] Laboratory [address] [place], [address] MCV (mean corpuscular volume ) determinationOrdered By: Kenrick Ott on 01-18-2025 MCV (RBC) [Entitic vol] 88.0 fL 80-94 [facility] Mean corpuscular hemoglobin (MCH) determinationOrdered By: Kenrick Ott on 01-18-2025 MCH (RBC) [Entitic mass] 29.1 pg 27.0-32.0 [facility] Mean corpuscular hemoglobin concentration (MCHC) determinationOrdered By: Kenrick Ott on 01-18-2025 MCHC (RBC) [Mass/Vol] 33.1 g/dL 32-36 [facility] Mean platelet volume determi nationOrdered By: Kenrick Ott on 01-18-2025 Platelet mean volume (Bld) [Entitic vol] 10.2 fL 6.2-12.0 [facility] Microscopic analysis of urin e for red blood cells (RBC)Ordered By: Natalie Yen on 01-18-2025 Microscopic analysis of urine for red blood cells (RBC) 0 SEEN /hpf 0-5 [facility] Monocyte percentageOrdered B y: Kenrick Ott on 01-18-2025 Monocytes/100 WBC (Bld) 12.3 % High 0-10 [facility] Mucus LM Ql (Urine sed)Order ed By: Natalie Yen on 01-18-2025 Mucus Ql (Urine sed) 0 SEEN /hpf [facility] Neutrophil percentageOrdered By: Kenrick Ott on 01-18-2025 Neutrophils/100 WBC (Bld) 70.8 % High 47-70 [facility] Nitrite Test strip Ql (U)Ord ered By: Natalie Yen on 01-18-2025 Nitrite Ql (U) Negative Negative [facility] Nucleated red blood cell per centageOrdered By: Kenrick Ott on 01-18-2025 Nucleated RBC/100 WBC (Bld) [Ratio] 0 % 0-5 [facility] PTHINon 01-18-2025 PTH 32 pg/mL Normal 11-61 [facility] Comment on above: Performed By: #### L 3130.0010, L506.1001, L509.1000, L3300.0960 #### [facility] Laboratory [address] [place] [address], [address] Platelet countOrdered By: Blaise Ott on 01-18-2025 Platelets (Bld) [#/Vol] 380 10*3/uL 150-450 [facility] Potassium measurement (mass/ volume)Ordered By: Kenrick Ott on 01-18-2025 Potassium (Unsp spec) [Mass/Vol] 4.0 mmol/L 3.3-5.1 [facility] Protein Test strip Ql (U)Ord ered By: Natalie Yen on 01-18-2025 Protein Ql (U) 30 mg/dl High Negative [facility] RBC Auto (Bld) [#/Vol]Ordere d By: Kenrick Ott on 01-18-2025 RBC (Bld) [#/Vol] 3.50 10*6/uL Low 4.6-6.2 [facility] Serum creatinine measurement (mass/volume)Ordered By: Kenrick Ott on 01-18-2025 Creatinine [Mass/Vol] 3.72 mg/dL High 0.70-1.20 [facility] Serum glucose measurement (m ass/volume)Ordered By: Kenrick Ott on 01-18-2025 Glucose [Mass/Vol] 98 mg/dL 70-99 [facility] Serum immunoglobulin kappa l ight chains/immunoglobulin lambda light chains mass ratioOrdered By: Natalie Yen on 01-18-2025 Immunoglobulin light chains.kappa/Immunoglo bulin light chains.lambda (S) [Mass ratio] 0.79 0.26-1.65 [facility] Comment on above: Performed at: [facility] [employer] [address] [id number] Director: Torito Green PhD, Phone: [phone] Serum or plasma calcitriol m easurement (mass/volume)Ordered By: Natalie Yen on 01-18-2025 1,25-dihydroxyvitamin D3 [Mass/Vol] 142.0 pg/mL High 24.8-81.5 [facility] Comment on above: Performed at: [facility] [employer] [address] [id number] Director: Tahir Malave MD, Phone: [phone] Serum or plasma calcium emma urement (mass/volume)Ordered By: Kenrick Ott on 01-18-2025 Calcium [Mass/Vol] 13.6 mg/dL High 7.6-11.0 [facility] Comment on above: Critical Result(s) C alled at: 0632 by: YENI MATHUR Results read back by same. Serum or plasma immunoglobul in kappa light chains measurement (mass/volume)Ordered By: Natalie Yen on 01-18-2025 Immunoglobulin light chains.kappa [Mass/Vol] 37.6 mg/L High 3.3-19.4 [facility] Serum or plasma urea nitroge n measurement (mass/volume)Ordered By: Kenrick Ott on 01-18-2025 Urea nitrogen [Mass/Vol] 51 mg/dL High 4-19 [facility] Sodium levelOrdered By: Kenrick Ott on 01-18-2025 Sodium [Moles/Vol] 139 mmol/L 133-145 [facility] Squamous epithelial cells de tection in urine sediment by light microscopyOrdered By: Natalie Yen on 01-18-2025 Epithelial cells.squamous LM Ql (Urine sed) 0 SEEN /hpf 0-5 [facility] Troponin T HS 2 HRon 025 Trop T High Sen 33 ng/L High <=22 [facility] Comment on above: Performed By: #### L 3130.0010, L506.1001, L509.1000, L3300.0960 #### [facility] Laboratory [address] [place], [address] Troponin T HS 4 HRon 025 Trop T High Sen Normal <=22 [facility] Comment on above: Result Comment: Mc hardin via OM: MD Ordered Performed By: #### M 100.2900, M100.4001, L001.0705, L504.0250, L200.0200, L350.1000, M100.2000, L503.0300 #### [facility] Laboratory [address] [place], [address] Troponin T.cardiac [Mass/vol ume] in Serum or Plasma by High sensitivity methodOrdered By: Kenrick Ott on 01-18-2025 Troponin T.cardiac High sensitivity method [Mass/Vol] 33 ng/L High <22 [facility] Troponin T.cardiac High sensitivity method [Mass/Vol] 31 ng/L High <22 [facility] Urinalysis, Completeon 01-18 WBC 0-5 SEEN Normal 0-5 [facility] Comment on above: Order Comment: COLLE CTOR TO SPECIFY Performed By: #### L 3130.0010, L506.1001, L509.1000, L3300.0960 #### [facility] Laboratory [address] [place], [address] BACTERIA 0 SEEN Normal None Seen [facility] Comment on above: Order Comment: COLLE CTOR TO SPECIFY Performed By: #### L 3130.0010, L506.1001, L509.1000, L3300.0960 #### [facility] Laboratory [address] [place], [address] EPI,SQUAMOUS 0 SEEN Normal 0-5 [facility] Comment on above: Order Comment: COLLE CTOR TO SPECIFY Performed By: #### L 3130.0010, L506.1001, L509.1000, L3300.0960 #### [facility] Laboratory [address] [place], [address] Mucus Ql (Urine sed) 0 SEEN Normal [facility] Comment on above: Order Comment: JEAN CLAUDE CTOR TO SPECIFY Performed By: #### L 3130.0010, L506.1001, L509.1000, L3300.0960 #### [facility] Laboratory [address] [place], [address] RBC 0 SEEN Normal 0-5 [facility] Comment on above: Order Comment: JEAN CLAUDE CTOR TO SPECIFY Performed By: #### L 3130.0010, L506.1001, L509.1000, L3300.0960 #### [facility] Laboratory [address] [place], [address] Urine clarityOrdered By: Juaquin Yen on 01-18-2025 Clarity (U) Sl. Cloudy Clear [facility] Urine color determinationOrd ered By: Natalie Yen on 01-18-2025 Color (U) Straw Yellow [facility] Urine glucose detectionOrder ed By: Natalie Yen on 01-18-2025 Glucose Ql (U) Normal mg/dl Normal [facility] Urine leukocyte esterase det ection by dipstickOrdered By: Natalie Yen on 01-18-2025 Leukocyte esterase Test strip Ql (U) Negative Negative [facility] Urine pHOrdered By: Natalie Yen on 01-18-2025 pH (U) 6.5 [pH] 5.0 - 8.0 [facility] Urine sediment bacteria coun t by microscopy (number/high power field)Ordered By: Natalie Yen on 01-18-2025 Bacteria LM.HPF (Urine sed) [#/Area] 0 /[HPF] None Seen [facility] Urine specific gravity measu rementOrdered By: Natalie Yen on 01-18-2025 Specific gravity (U) [Rel density] 1.015 1.002-1.030 [facility] Urine urobilinogen measureme ntOrdered By: Natalie Yen on 01-18-2025 Urobilinogen Ql (U) Normal mg/dl Normal [facility] Vitamin D,25 Hydroxyon 01-18 Vitamin D 25-OH 81.7 ng/mL Normal 30-100 [facility] Comment on above: Result Comment: Nancy min D Status Deficiency: <20 ng/mL (50nmol/L) Insufficiency: 20-30 ng/mL (50-75 nmol/L) Sufficiency: 30-100 ng/mL (75-250 nmol/L) Toxicity: >100 ng/mL (>250 nmol/L) Performed By: #### L 3130.0010, L506.1001, L509.1000, L3300.0960 #### [facility] Laboratory [address] [place], [address] White blood cell (WBC) count Ordered By: Kenrick Ott on 01-18-2025 WBC (Bld) [#/Vol] 8.0 10*3/uL 4.4-11.0 [facility] White blood cell countOrdere d By: Natalie Yen on 01-18-2025 White blood cell count 0-5 SEEN /hpf 0-5 [facility] Office Visiton 01-06-2025 Follow-up visit [id number] Edi Caceres 1945 M Date Provider Department Center 01/06/2025 [facility] None Family History Problem Relation Age of Onset Throat cancer Brother Family Status - Relation Status Age at Brother Level of Service:02305 [place] OFFICE/OP CONSLTJ NEW/EST PT MOD MDM 40 MINUTES (57) Reason for Visit and Comments: New Patient [542] Normal [facility] Progress Noteon 01-06-[address] [facility] CARDIOVASCULAR & THORACIC SURGERY [address] [facility] [address] Dept: [phone] Dept Loc: [phone] Visit type: New Reason for Visit: Mediastinal [...] a 79 y.o. male referred by Dr. Garcia for mediastinal mass. Per note, pt had CT chest completed at [place] on 12/21/24 which demonstrated a large mass [...] Chest 12/21/24 Patient Care Team: PCP: Michelet Good MD Pulmonology: DO Lucero Golden DO FACS Cardiothoracic Surgery [1] History reviewed. No pertinent surgical history. [2] Family History Problem Relation Name Age of Onset Throat cancer Brother [3] Social History Tobacco Use Smoking status: Never Smokeless tobacco: Never Substance Use Topics Alcohol use: Never Drug use: Never Normal [facility] SURG PATH REQUESTon 01-07-20 Addendum Normal [facility] Comment on above: Result Comment: TCRB and TCRG PCR on outside cell block show no diagnostic T-cell clonal population. Addendum electronically signed by TYSON Jhaveri on 01/19/2025 at 1359 EDT Performed By: #### S URGP #### [facility] (DEFAULT) [address] [place] [address] Case Report Normal [facility] Comment on above: Result Comment: Surg ical Pathology Report Case: [id number] Authorizing Provider: Janice Gu MD Collected: 01/06/2025 11:09 AM Ordering Location[facility] Received: 01/06/2025 11:09 AM FUNES Pathologist: TYSON Jhaveri Specimen: SURG PATH, A) Thoracentesis fluid for cytology Performed By: #### S URGP #### [facility] (DEFAULT) [address] [place] [address] Clinical History Received is a reques t for second opinion consultation by Dr. Janice Gu at [facility]. Clinical Information: 79 M with pulmonary/mediastinal mass. Pleural fluid cytology cytospin and cell block) shows atypical lymphoid cells. No pertinent medical history. WBC is within normal limits. Previous Pathology/History of Cancer/Radiation Therapy: Please rule out lymphoproliferative disorder. Preoperative Diagnosis: Pleural effusion. Normal [facility] Comment on above: Performed By: #### S URGP #### [facility] (DEFAULT) [address] [place] [address] Diagnosis Comments Normal [facility] Comment on above: Result Comment: The cell block demonstrates sheets of small lymphocytes with admixed inflammatory cells, including macrophages, dendritic cells, scattered neutrophils, and reactive mesothelial cells. Submitted immunohistochemical stains (CD45, CD3, CD5, CD10, BCL6, BCL2, CD20, Cyclin D1, CD23, and William-K) were reviewed with appropriate controls. Additional IHCs (PAX-5, CD30, CD15, ALK-1, MUM1, CD79a, CK5/6, P63, Calretinin, WT-1, TdT, PAX-8, S100, and lysozyme), along with ROMARIO in situ hybridization (CAROLE), were performed at [facility] on external block A1, with appropriate controls. CD45 highlights all lymphocytes. CD3 and CD5 demonstrate that the majority of lymphocytes are T cells, which are BCL2 positive and TdT negative. CD20, PAX-5, and CD79a highlight admixed but significantly fewer B cells, which are negative for BCL6, Cyclin D1, and CD10. CD23 highlights scattered positive cells. CD30 and MUM1 highlight rare, scattered immunoblasts. CD15 highlights scattered neutrophils. S100 highlights scattered dendritic cells. Lysozyme stains macrophages. William-K highlights reactive mesothelial cells, which are also positive for calretinin, CK5/6, and WT-1. Ki-67 shows a proliferation index of approximately 20-30%. ROMARIO CAROLE highlights rare (<1%) intermediate-sized positive cells. P63 shows non-specific staining. ALK-1 and PAX-8 are negative. Overall, the findings are consistent with a T-cell predominant lymphocytosis. T-cell receptor (TCR) gene rearrangement analysis is in progress to assess for clonality and will be reported in an addendum. The case was reviewed by thoracic pathologist, Dr. Balbina Knight, and hematopathologist Dr. Krishna Solis. Performed By: #### S URGP #### [facility] (DEFAULT) [address] [place] [address] Gross Description Normal [facility] Comment on above: Result Comment: The following material(s) are received from [facility], [address] [place] [address] with an identifying Surgical Pathology Report: 1 H&E and 11 non-H&E slides labeled [id number]. Subsequently received on January 11, 2025 from the same facility is one (1) paraffin block (A CB1) marked [id number], which is submitted to [facility] Histology/IHC Laboratory for re-cutting and additional staining. Outside materials are returned in 60 days under separate cover with our number recorded on them. Grosser for this case was: Lea Longoria Performed By: #### S URGP #### [facility] (DEFAULT) [address] [place] [address] Microscopic Description Normal [facility] Comment on above: Result Comment: A mi croscopic examination was performed. All controls show appropriate reactivity. All immunohistochemistry (IHC), in situ hybridization (CAROLE), and histochemical tests were developed by and are performed at the [facility] Clinical Laboratory, Histology and IHC Lab, [address] [place] [address]. All Immunofluorescent (IF) tests were developed by and are performed at the [facility] Clinical Laboratory, Renal Division, [address] [place] [address]. All tests reported here, except for PD-L1, have not been cleared by or approved by the [place] Food and Drug Administration (FDA). The laboratory is regulated under CLIA as qualified to perform high-complexity testing. The tests are used for clinical purposes. They should not be regarded as investigational or for research. Performed By: #### S URGP #### [facility] (DEFAULT) [address] [place] [address] Pathologic Diagnosis [facility] Comment on above: Result Comment: Outs aurora Slides [id number] (12/30/24) A. Thorax, pleural effusion, thoracentesis (cytospin, cellblock): T-cell predominant lymphocytosis, see comment. at 1801 EDT Performed By: #### S URGP #### [facility] (DEFAULT) [address] [place] [address] Professional Interpretation Performed at: [facility] Comment on above: Result Comment: [facility] For Immediate Release to Patient's MyChart? Yes [address] [address] Performed By: #### S URGP #### [facility] (DEFAULT) [address] [address] Culture, Anaerobic Any Sourc apolonia 01-04-2025 CUAN UNK UNK No growth in 5 days. [facility] Comment on above: Performed By: #### M 100.2900, M100.4001, L001.0705, L504.0250, L200.0200, L350.1000, M100.2000, L503.0300 ####[facility] [id number] [facility] [place], [place], [id number] Body Fluid Culton 12-31-2024 BFC UNK UNK Culture exhibits no growth. [facility] Comment on above: Performed By: #### M 100.2900, M100.4001, L001.0705, L504.0250, L200.0200, L350.1000, M100.2000, L503.0300 ####[facility] [id number] [facility] [address] [place], [place], [id number] Anaerobic cultureOrdered By: Domenico Garcia on 12-30-2024 Bacteria identified Anaer cx Nom (Unsp spec) No growth in 5 days. [facility] Body Fluid Cell Count+Diffon 12-30-2024 PATH COMM/BF Reviewed Normal [facility] Comment on above: Order Comment: [...] reported as: May follow Performed By: #### M 100.2900, M100.4001, L001.0705, L504.0250, L200.0200, L350.1000, M100.2000, L503.0300 #### [facility] Laboratory [address] [place], [place], [address] Body fluid appearance (nomin al result)Ordered By: Domenico Garcia on 12-30-2024 Appearance (Body fld) SL CLDY [facility] Body fluid color determinati onOrdered By: Domenico Garcia on 12-30-2024 Color (Body fld) YELLOW [facility] Body fluid cultureOrdered By : Domenico Garcia on 12-30-2024 Microbial culture, body fluid Culture exhibits no growth. [facility] Body fluid lactate dehydroge nase measurement (enzymatic activity/volume) by pyruvateOrdered By: Domenico Garcia on 12-30-2024 LDH Pyruvate to lactate reaction (Body fld) [Catalytic activity/Vol] 566 Units/L Not Establ. [facility] Body fluid leukocytes count (number/volume)Ordered By: Domenico Garcia on 12-30-2024 WBC (Body fld) [#/Vol] 2.795 10*3/uL [facility] Body fluid lymphocytes/100 l eukocytesOrdered By: Domenico Garcia on 12-30-2024 Lymphocytes/100 WBC (Body fld) 86 % [facility] Body fluid macrophage countO rdered By: Domenico Garcia on 12-30-2024 Macrophages (Body fld) [#/Vol] 6 % [facility] Body fluid mononuclear cell percentageOrdered By: Domenico Garcia on 12-30-2024 Mononuclear cells/100 WBC (Body fld) 99.3 % [facility] Body fluid protein measureme nt (mass/volume)Ordered By: Domenico Garcia on 12-30-2024 Protein (Body fld) [Mass/Vol] 4.6 g/dL Not Establ. [facility] Body fluid segmented neutrop hils count (number/volume)Ordered By: Domenico Garcia on 12-30-2024 Segmented neutrophils (Body fld) [#/Vol] 0 % [facility] Body fluid total cell countO rdered By: Domenico Garcia on 12-30-2024 Cells Counted Total (Body fld) [#] 2.828 10^3/ul [facility] Comment on above: This is the Total Nu mber of Nucleated Cell Types in the Body Fluid. Cytology report of Body flui d Cyto stainOrdered By: Domenico Garcia on 12-30-2024 Cytology report Cyto stain Doc (Body fld) SEE PATHOLOGY REPORT [facility] Comment on above: Specimen submitted t o Anatomical Pathology Department for testing. Cytology, Body Fluid / CSFon 12-30-2024 CYTOLOGY,BF/CSF SEE PATHOLOGY REPORT Normal [facility] Comment on above: Order Comment: BODY FLUID BLEURAL EFFUSION LT THORA Result Comment: Spec imen submitted to Anatomical Pathology Department for testing. Performed By: #### M 100.2900, M100.4001, L001.0705, L504.0250, L200.0200, L350.1000, M100.1999, L503.0300 ####[facility] [address] [place], [address] Gram Stainon 12-30-2024 GS UNK UNK Centrifuged Specimen? Culture performed on centrifuged specimen Gram Stain 3+ White Blood Cells No organisms seen Normal [facility] Comment on above: Performed By: #### M 100.2900, M100.4001, L001.0705, L504.0250, L200.0200, L350.1000, M100.2000, L503.0300 ####[facility] [id number] [place], [address] Gram stainOrdered By: Domenico Garcia on 12-30-2024 Microscopic observation Gram stain Nom (Unsp spec) [facility] Immunohistochemical Stainson 12-30-2024 Immunohistochemical Stains Patient Age/Sex Location Account Attending Physician JUJU CACERES 79/M [id number] Dr. Domenico Garcia DO Specimen: [id number] Received: 12/30/24 Status: LOUIE Hayes Num: [id number] Spec Type: Fluid Subm Dr: DO CLAUDIA Tsai OPERATION: Ultrasound guided thoracentesis PRE-OP DIAGNOSIS: Pleural effusion TISSUE SUBMITTED: A- Thoracentesis fluid for cytology DIAGNOSIS CYTOLOGY A. Thorax, pleural effusion, thoracentesis (cytospin, cellblock): - Lymphocytosis with atypical features suspicious for a lymphoproliferative disorder. - Further evaluation of the cellblock with IHC is pending and an addendum report will follow. CYTOLOGY STUDY Slides are reviewed. CYTOLOGY GROSS A. Received is 110 ml of tonf-ytpwnh-zxbpkn fluid labeled with the patient's name and and designated per the requisition as Thoracentesis fluid. Submitted for cytology and cell block preparation. Mr 12/30/2024 CPT: 18806,[id number],[id number] ADDENDUM Addendum 2 Entered: 02/03/25-1013 This addendum is added to incorporate an outside pathology consultation report. The case was examined at [facility] by Dr. Cain (#[id number]) and the following diagnosis was rendered. T-cell receptor (TCR) gene rearrangement analysis report: TCRB and TCRG PCR on outside block show no diagnostic T-cell clonal population. TCRB PCR Pattern: Predominantly polyclonal pattern with minimal skewing. Patient Age/Sex Location Account Attending Physician JUJU CACERES 79/M [id number] Dr. Domenico Garcia, DO ADDENDUM (Continued) TCRGB Interpretation: There is no diagnostic evidence of a clonal T-cell population in this sample by TCRG and TCRB PCR. Run and sample controls meet acceptable criteria. Please see complete above mentioned consultation report in EMR Addendum Signed (signature on file) Dr. Janice Gu MD 02/03/25 1018 Addendum 1 Entered: 01/18/25-8995 This addendum is added to incorporate an outside pathology consultation report. The case was examined at [facility] by Dr. Lesly Cain (#[id number]) and the following diagnosis was rendered. A. Thorax, pleural effusion, thoracentesis (cytospin, cellblock): T-cell predominant lymphocytosis, see comment. DIAGNOSIS COMMENT: The cell block demonstrates sheets of small lymphocytes with admixed inflammatory cells, including macrophages, dendritic cells, scattered neutrophils, and reactive mesothelial cells. Submitted immunohistochemical stains (CD45, CD3, CD5, CD10, BCL6, BCL2, CD20, Cyclin D1, CD23, and William-K) were reviewed with appropriate controls. Additional IHCs (PAX-5, CD30, CD15, ALK-1, MUM1, CD79a, CK5/6, P63, Calretinin, WT-1, TdT, PAX-8, S100 and lysozyme), along with ROMARIO in situ hybridization (CAROLE), were performed at [facility] on external block A1, with appropriate controls. - CD45 highlights all lymphocytes. - CD3 and CD5 demonstrate that the majority of lymphocytes are T cells, which are BCL2 positive and TdT negative. - CD20, PAX-5, and CD79a highlight admixed but significantly fewer B cells, which are negative for BCL6, Cyclin D1, and CD10. - CD23 highlights scattered positive cells. - CD30 and MUM1 highlight rare, scattered immunoblasts. - CD15 highlights scattered neutrophils. - S100 highlights scattered dendritic cells. - Lysozyme stains macrophages. - William-K highlights reactive mesothelial cells, which are also positive for calretinin, CK5/6, and WT-1. - Ki67 shows a proliferation index of approximately 20-30%. - ROMARIO CAROLE highlights rare (<1%) intermediate-sized positive cells. - P63 shows non-specific staining. - ALK-1 and PAX-8 are negative. Overall, the findings are consistent with a T-cell predominant lymphocytosis. T-cell Patient Age/Sex Location Account Attending Physician JUJU CACERES 79/M [id number] (more content not included)... Normal [facility] Comment on above: Performed By: #### L 3130.0010, L506.1001, L509.1000, L3300.0960 #### [facility] Laboratory [address] [place], [address] LDH,Body Fluidon 12-30-2024 LDH,BF 566 Units/L Normal Not Establ. [facility] Comment on above: Order Comment: BODY FLUID BLEURAL EFFUSION LT THORA Performed By: #### M 100.2900, M100.4001, L001.0705, L504.0250, L200.0200, L350.1000, M100.2000, L503.0300 ####[facility] [address] [place], [address] Monocyte detectionOrdered By : Domenico Garcia on 12-30-2024 Monocytes/100 WBC (Bld) 8 % [facility] No Panel InformationOrdered By: Domenico Garcia on 12-30-2024 Body Fluid Comment 2 SEE COMMENT [facility] Comment on above: .INTERPRETATION OF R ESULTS: Differentiation of transudate and exudate fluid: TRANSUDATE EXUDATE Color- Clear,straw colored Clear,turbid,bloody,purulent RBCs- Usually none to few Often present in high numbers WBCs- Usually none to few Often present in high numbers DIFF Few lymphocytes or Lymphocytes, neutrophils, andCount- mesothelial cells. polymorphonuclear cells . Body Fluid RBC 104 /mm3 [facility] 104 /mm3 [facility] SEE COMMENT [facility] Pathologist interpretation o f Body fluid testsOrdered By: Domenico Garcia on 12-30-2024 Pathologist interpretation (Body fld) [Interp] Reviewed [facility] Comment on above: Previous reported [...] Protein [Mass/Vol] 4.6 g/dL Normal Not Establ. [facility] Comment on above: Order Comment: BODY FLUID BLEURAL EFFUSION LT THORA Performed By: #### M 100.2900, M100.4001, L001.0705, L504.0250, L200.0200, L350.1000, M100.2000, L503.0300 #### [facility] Laboratory [address] [place], [place], [id number] Protein, Totalon 12-30-2024 T PROT Normal 5.9-8.4 [facility] Comment on above: Order Comment: BODY FLUID Result Comment: BODY FLUID COLLECTED Performed By: #### M 100.2900, M100.4001, L001.0705, L504.0250, L200.0200, L350.1000, M100.2000, L503.0300 #### [facility] Laboratory [address] [place], [address] Special Stain Group IIon Special Stain Group II -------- Patient Age/Sex Location Account Attending Physician JUJU CACERES 79/M [id number] Dr. Domenico Garcia, DO Specimen: [id number] Received: 12/30/24 Status: LOUIE Hayes Num: [id number] Spec Type: Fluid Subm Dr: Dr. Domenico Garcia, HEAD OPERATION: Ultrasound guided thoracentesis PRE-OP DIAGNOSIS: Pleural effusion TISSUE SUBMITTED: A- Thoracentesis fluid for cytology DIAGNOSIS CYTOLOGY A. Thorax, pleural effusion, thoracentesis (cytospin, cellblock): - Lymphocytosis with atypical features suspicious for a lymphoproliferative disorder. - Further evaluation of the cellblock with IHC is pending and an addendum report will follow. CYTOLOGY STUDY Slides are reviewed. CYTOLOGY GROSS A. Received is 110 ml of gvxe-tqdoye-pgmojn fluid labeled with the patient's name and and designated per the requisition as Thoracentesis fluid. Submitted for cytology and cell block preparation. 12/30/2024 CPT: 07505,58457,[id number] Signed (signature on file) Dr. Janice Gu MD 12/31/24 1903 Normal [facility] Comment on above: Performed By: #### L 3130.0010, L506.1001, L509.1000, L3300.0960 #### [facility] Laboratory [address] [place], [address] Specimen source identificati on of body fluidOrdered By: Domenico Garcia on 12-30-2024 Specimen source Nom (Body fld) THORACENTESIS [facility] Thoracentesis W USon 025 Thoracentesis W [facility] [address] [place] [address] Thoracentesis W US MR#: [id number] Acct: [id number] Name: JUJU CACERES Rep #: [id number] : 1945 M 79 From: Rodney Gavin PCP: Dr. Michelet Good DO Status: REG CLI Study: Thoracentesis W US Date of Exam: 12/30/24 Exam# [id number] Ordering Dr: Domenico Garcia DO PROCEDURE: THORACENTESIS W US 12/30/2024 REASON FOR EXAM: PLEURAL EFFUSION. Left pleural effusion TECHNIQUE: THORACENTESIS W US, diagnostic and therapeutic. COMPARISON: None. FINDINGS: Procedure: Following informed consent, and using standard sterile technique, an ultrasound-guided left thoracentesis was performed. 2% lidocaine local anesthesia was followed by placement of a 5 Serbian catheter into the left pleural fluid collection via a posterior approach. A proximally 1160 mL light clear yellow fluid was successfully removed, a portion sent to the laboratory for evaluation. No complication was encountered, and the patient left the department in good condition without significant complaint. US/Thoracentesis W US IMPRESSION: Successful diagnostic and therapeutic ultrasound-guided left thoracentesis. Laboratory results pending. Reading Location: [place] [address] CC: Dr. Domenico Garcia DO; Dr. Michelet Good DO Fire Sprinkler Inspector: Signed Normal [facility] Activated partial thrombopla stin time (aPTT) in platelet poor plasma by coagulation aOrdered By: Domenico Garcia on 12-27-2024 aPTT Coag (PPP) [Time] 38.7 s High 24.1-36.2 [facility] International normalized rat io (INR) calculationOrdered By: Domenico Garcia on 12-27-2024 INR Coag (Bld) [Relative time] 1.1 {INR} [facility] LDHon 12-27-2024 LDH 272 U/L High 87-241 [facility] Comment on above: Order Comment: 1 Performed By: #### L 3130.0010, L506.1001, L509.1000, L3300.0960 #### [facility] Laboratory [address] [place], [place], [id number] (485) Lactate dehydrogenase (LDH) measurementOrdered By: Domenico Garcia on 12-27-2024 LDH [Catalytic activity/Vol] 272 U/L High 87-241 [facility] PLATELET COUNTon 12-27-2024 Platelets (Bld) [#/Vol] 358 10*3/uL Normal 150-450 [facility] Comment on above: Performed By: #### L 3130.0010, L506.1001, L509.1000, L3300.0960 #### [facility] Laboratory [address] [place], [place], [phone] (955) Partial Thromboplast Timeon 12-27-2024 aPTT Coag (Bld) [Time] 38.7 s High 24.1-36.2 [facility] Comment on above: Performed By: #### L 3130.0010, L506.1001, L509.1000, L3300.0960 #### [facility] Laboratory [address] [place], [place], [phone] ([phone] Platelet countOrdered By: Delarosa on 12-27-2024 Platelets (Bld) [#/Vol] 358 10*3/uL 150-450 [facility] Prothrombin Time w/INRon INR Coag (PPP) [Relative time] 1.1 {INR} Normal [facility] Comment on above: Performed By: #### L 3130.0010, L506.1001, L509.1000, L3300.0960 #### [facility] Laboratory [address] [place], [address] PT Coag (PPP) [Time] 14.4 s Normal 11.7-14.9 [facility] Comment on above: Performed By: #### L 3130.0010, L506.1001, L509.1000, L3300.0960 #### [facility] Laboratory [address] [place], [address] Prothrombin timeOrdered By: Domenico Garcia on 12-27-2024 PT Coag (PPP) [Time] 14.4 s 11.7-14.9 [facility] Pulmonary Visit Reporton Pulmonary Visit Report [facility] [address] [place] [address] OFFICE VISIT Date of Service: 12/27/24 MR#: [id number] Acct: [id number] Name: JUJU CACERES Rep #: [id number] : 1945 Provider: Dr. Domenico Garcia DO Age/Sex: 79/M Location: [facility].PMW Status: Signed Assessment and Plan Assessment and Plan (1) Lung mass: Status: Acute Plan: The patient presented today for the evaluation of a lung mass which was identified on CT imaging completed through [facility] on December 21, 2024. That imaging study [...] to the office of Dr. Harvey at [facility]. 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 Normal [facility] CT THORAX W/ CONTRASTon 12-01 [...] Date: 12/23/2024 8:44:38 AM Ordering Provider: MICHELET GOOD [facility] CT ABDOMEN/PELVIS W/CONTRAST on 12-22-2024 CT [...] Date: 12/22/2024 10:03:43 AM Ordering Provider: MICHELET GOOD [facility] RADHA + Protein Elect, Serumon 12-09-2024 Albumin [Mass/Vol] 3.5 g/dL Normal 2.9-4.4 [facility] Comment on above: Order Comment: ADD O N PLEASE-SWRIGHTN Performed By: #### L 101.9900, L501.6710, L500.4050, L501.9910, L400.2010, L3100.3425, L501.9520, L100.0100 ####[facility] [address] [place], [address] Albumin/Globulin [Mass ratio] 0.9 {ratio} Normal 0.7-1.7 [facility] Comment on above: Order Comment: ADD O N PLEASE-SWRIGHTN Performed By: #### L 101.9900, L501.6710, L500.4050, L501.9910, L4.2010, L3100.3425, L501.9520, L100.0100 ####[facility] [address] [place], [address] SOCLE-8-UTZR 0.4 g/dL Normal 0.0-0.4 [facility] Comment on above: Order Comment: ADD O N PLEASE-SWRIGHTN Performed By: #### L 101.9900, L501.6710, L500.4050, L501.9910, L4.2010, L3100.3425, L501.9520, L100.0100 ####[facility] [address] [place], [address] LJKUV-1-HRJN 1.2 g/dL High 0.4-1.0 [facility] Comment on above: Order Comment: ADD O N PLEASE-SWRIGHTN Performed By: #### L 101.9900, L501.6710, L500.4050, L501.9910, L4.2010, L3100.3425, L501.9520, L100.0100 ####[facility] [address] [place], [address] BETA GLOBULIN 1.2 g/dL Normal 0.7-1.3 [facility] Comment on above: Order Comment: ADD O N PLEASE-SWRIGHTN Performed By: #### L 101.9900, L501.6710, L500.4050, L501.9910, L4.2010, L3100.3425, L501.9520, L100.0100 ####[facility] [address] [place], [address] GAMMA GLOBULIN 1.5 g/dL Normal 0.4-1.8 [facility] Comment on above: Order Comment: ADD O N PLEASE-SWRIGHTN Performed By: #### L 101.9900, L501.6710, L500.4050, L501.9910, L400.2010, L3100.3425, L501.9520, L100.0100 ####[facility] [address] [place], [address] Globulin (S) [Mass/Vol] 4.3 g/dL Abnormal 2.2-3.9 [facility] Comment on above: Order Comment: ADD O N PLEASE-SWRIGHTN Performed By: #### L 101.9900, L501.6710, L500.4050, L501.9910, L400.2010, L3100.3425, L501.9520, L100.0100 ####[facility] [address] [place], [address] RADHA RESULT,S Comment Abnormal . [facility] Comment on above: Order Comment: ADD O N PLEASE-SWRIGHTN Result Comment: Immu nofixation shows IgG monoclonal protein with lambda light chain specificity. Performed By: #### L 101.9900, L501.6710, L500.4050, L501.9910, L400.2010, L3100.3425, L501.9520, L100.0100 ####[facility] [address] [place], [address] IMMUNOGLOB A QN 275 mg/dL Normal 61-437 [facility] Comment on above: Order Comment: ADD O N PLEASE-SWRIGHTN Performed By: #### L 101.9900, L501.6710, L500.4050, L501.9910, L400.2010, L3100.3425, L501.9520, L100.0100 ####[facility] [address] [place], [address] IMMUNOGLOB G QN 1476 mg/dL Normal 603-1613 [facility] Comment on above: Order Comment: ADD O N PLEASE-SWRIGHTN Performed By: #### L 101.9900, L501.6710, L500.4050, L501.9910, L400.2010, L3100.3425, L501.9520, L100.0100 ####[facility] [address] [place], [address] IMMUNOGLOB M QN 70 mg/dL Normal 15-143 [facility] Comment on above: Order Comment: ADD O N PLEASE-SWRIGHTN Performed By: #### L 101.9900, L501.6710, L500.4050, L501.9910, L400.2010, L3100.3425, L501.9520, L100.0100 ####[facility] [address] [place], [address] M-Kvng 0.6 g/dL Abnormal Not Observed [facility] Comment on above: Order Comment: ADD O N PLEASE-SWRIGHTN Performed By: #### L 101.9900, L501.6710, L500.4050, L501.9910, L400.2010, L3100.3425, L501.9520, L100.0100 ####[facility] [address] [place], [address] NOTE: Comment Normal . [facility] Comment on above: Order Comment: ADD O N PLEASE-SWRIGHTN Result Comment: Prot ein electrophoresis scan will follow via computer, mail, or force dispatcher delivery. Performed at: [address] [id number] Section Maintainer: Torito Green PhD, Phone: [phone] Performed By: #### L 101.9900, L501.6710, L500.4050, L501.9910, L400.2010, L3100.3425, L501.9520, L100.0100 ####[facility] [address] [place], [address] Protein [Mass/Vol] 7.8 g/dL Normal 6.0-8.5 [facility] Comment on above: Order Comment: ADD O N PLEASE-SWRIGHTN Performed By: #### L 101.9900, L501.6710, L500.4050, L501.9910, L400.2010, L3100.3425, L501.9520, L100.0100 ####[facility] [address] [place], [address] Absolute lymphocyte countOrd ered By: Michelet Good on 12-02-2024 Lymphocytes Auto (Unsp spec) [#/Vol] 0.84 10*3/uL 0.83-4.51 [facility] Absolute neutrophil countOrd ered By: Michelet Good on 12-02-2024 Neutrophils (Bld) [#/Vol] 6.0 10*3/uL 2.0-7.7 [facility] Albumin Elph [Mass/Vol]Order ed By: Michelet Good on 12-02-2024 Albumin [Mass/Vol] 3.5 g/dL 2.9-4.4 [facility] Anion gap in Serum or Plasma Ordered By: Michelet Good on 12-02-2024 Anion gap [Moles/Vol] 16 mmol/L High 5-15 [facility] Automated lymphocyte count a s percentage of total leukocytesOrdered By: Michelet Good on 12-02-2024 Lymphocytes/100 WBC Auto (Unsp spec) 10.8 % Low 19-41 [facility] BUN/creatinine ratioOrdered By: Michelet Good on 12-02-2024 Urea nitrogen/Creatinine [Mass ratio] 18.3 mg/mg 10-20 [facility] Basophil percentageOrdered B y: Michelet Good on 12-02-2024 Basophils/100 WBC (Bld) 0.6 % 0-1 [facility] Bilirubin Test strip Ql (U)O rdered By: Michelet Good on 12-02-2024 Bilirubin Ql (U) Negative Negative [facility] Bilirubin, totalOrdered By: Michelet QuiñonesFlorentino on 12-02-2024 Bilirubin [Mass/Vol] 0.43 mg/dL 0.00-1.30 [facility] CBC W/Diff, Automatedon Absolute Lymph 0.84 X10 3/uL Normal 0.83-4.51 [facility] Comment on above: Performed By: #### L 101.9900, L501.6710, L500.4050, L501.9910, L400.2010, L3100.3425, L501.9520, L100.0100 ####[facility] [address] [place], [address] Absolute Neut 6.0 X10 3/uL Normal 2.0-7.7 [facility] Comment on above: Performed By: #### L 101.9900, L501.6710, L500.4050, L501.9910, L400.2010, L3100.3425, L501.9520, L100.0100 ####[facility] [address] [place], [address] Basophils/100 WBC (Bld) 0.6 % Normal 0-1 [facility] Comment on above: Performed By: #### L 101.9900, L501.6710, L500.4050, L501.9910, L400.2010, L3100.3425, L501.9520, L100.0100 ####[facility] [address] [place], [address] Eosinophils/100 WBC (Bld) 1.3 % Normal 0-5 [facility] Comment on above: Performed By: #### L 101.9900, L501.6710, L500.4050, L501.9910, L400.2010, L3100.3425, L501.9520, L100.0100 ####[facility] [address] [place], [address] Erythrocyte distribution width (RBC) [Ratio] 13.8 % Normal 11.6-14.6 [facility] Comment on above: Performed By: #### L 101.9900, L501.6710, L500.4050, L501.9910, L400.2010, L3100.3425, L501.9520, L100.0100 ####[facility] [address] [place], [address] Hematocrit (Bld) [Volume fraction] 38.9 % Low 40-54 [facility] Comment on above: Performed By: #### L 101.9900, L501.6710, L500.4050, L501.9910, L400.2010, L3100.3425, L501.9520, L100.0100 ####[facility] [address] [place], [address] Hemoglobin (Bld) [Mass/Vol] 12.4 g/dL Low 13.0-16.5 [facility] Comment on above: Performed By: #### L 101.9900, L501.6710, L500.4050, L501.9910, L400.2010, L3100.3425, L501.9520, L100.0100 ####[facility] [address] [place], [address] IG% 0.300 Normal 0.0-0.9 [facility] Comment on above: Result Comment: IG% - Immature Granulocytes (promyelocytes, myelocytes and metamyelocytes) > 1% indicates that a LEFT SHIFT is Present. Performed By: #### L 101.9900, L501.6710, L500.4050, L501.9910, L400.2010, L3100.3425, L501.9520, L100.0100 ####[facility] [address] [place], [address] Lymphocytes/100 WBC (Bld) 10.8 % Low 19-41 [facility] Comment on above: Performed By: #### L 101.9900, L501.6710, L500.4050, L501.9910, L400.2010, L3100.3425, L501.9520, L100.0100 ####[facility] [address] [place], [address] MCH (RBC) [Entitic mass] 28.6 pg Normal 27.0-32.0 [facility] Comment on above: Performed By: #### L 101.9900, L501.6710, L500.4050, L501.9910, L400.2010, L3100.3425, L501.9520, L100.0100 ####[facility] [address] [place], [address] MCHC (RBC) [Mass/Vol] 31.9 g/dL Low 32-36 [facility] Comment on above: Performed By: #### L 101.9900, L501.6710, L500.4050, L501.9910, L400.2010, L3100.3425, L501.9520, L100.0100 ####[facility] [address] [place], [address] MCV (RBC) [Entitic vol] 89.6 fL Normal 80-94 [facility] Comment on above: Performed By: #### L 101.9900, L501.6710, L500.4050, L501.9910, L400.2010, L3100.3425, L501.9520, L100.0100 ####[facility] [address] [place], [address] Monocytes/100 WBC (Bld) 10.0 % Normal 0-10 [facility] Comment on above: Performed By: #### L 101.9900, L501.6710, L500.4050, L501.9910, L400.2010, L3100.3425, L501.9520, L100.0100 ####[facility] [address] [place], [address] Neutrophils/100 WBC (Bld) 77.0 % High 47-70 [facility] Comment on above: Performed By: #### L 101.9900, L501.6710, L500.4050, L501.9910, L400.2011, L3100.3425, L501.9520, L100.0100 ####[facility] [address] [place], [address] Nucleated RBC (Bld) [#/Vol] 0 10*3/uL Normal 0-5 [facility] Comment on above: Performed By: #### L 101.9900, L501.6710, L500.4050, L501.9910, L400.2010, L3100.3425, L501.9520, L100.0100 ####[facility] [address] [place], [address] Platelet mean volume (Bld) [Entitic vol] 10.4 fL Normal 6.2-12.0 [facility] Comment on above: Performed By: #### L 101.9900, L501.6710, L500.4050, L501.9910, L400.2010, L3100.3425, L501.9520, L100.0100 ####[facility] [address] [place], [address] Platelets (Bld) [#/Vol] 391 10*3/uL Normal 150-450 [facility] Comment on above: Performed By: #### L 101.9900, L501.6710, L500.4050, L501.9910, L400.2010, L3100.3425, L501.9520, L100.0100 ####[facility] [address] [place], [address] RBC (Bld) [#/Vol] 4.34 10*6/uL Low 4.6-6.2 [facility] Comment on above: Performed By: #### L 101.9900, L501.6710, L500.4050, L501.9910, L400.2010, L3100.3425, L501.9520, L100.0100 ####[facility] [address] [place], [address] RDW SD 45.2 fl High 35.1-43.9 [facility] [facility] Comment on above: Performed By: #### L 101.9900, L501.6710, L500.4050, L501.9910, L400.2010, L3100.3425, L501.9520, L100.0100 ####[facility] [address] [place], [address] WBC (Bld) [#/Vol] 7.8 10*3/uL Normal 4.4-11.0 [facility] [place] [facility] Comment on above: Performed By: #### L 101.9900, L501.6710, L500.4050, L501.9910, L400.2010, L3100.3425, L501.9520, L100.0100 ####[facility] [address] [place], [address] CRPon 12-02-2024 C-REACTIVE PROT 87.20 mg/L High 0.0-3.0 [facility] Comment on above: Performed By: #### L 101.9900, L501.6710, L500.4050, L501.9910, L400.2010, L3100.3425, L501.9520, L100.0100 ####[facility] [address] [place], [address] Carbon dioxide, total [Moles /volume] in Central venous bloodOrdered By: Michelet Good on 12-02-2024 CO2 [Moles/Vol] 24.4 mmol/L 21.0-32.0 [facility] Chloride assayOrdered By: Carin Good on 12-02-2024 Chloride [Moles/Vol] 98 mmol/L 98-108 [facility] Comprehensive Metabolic Prof ilon 12-02-2024 Albumin [Mass/Vol] 4.1 g/dL Normal 3.4-4.8 [facility] Comment on above: Performed By: #### L 101.9900, L501.6710, L500.4050, L501.9910, L400.2010, L3100.3425, L501.9520, L100.0100 ####[facility] [address] [place], [address] Albumin/Globulin [Mass ratio] 1.0 {ratio} Normal 0.9-2.4 [facility] Comment on above: Performed By: #### L 101.9900, L501.6710, L500.4050, L501.9910, L400.2010, L3100.3425, L501.9520, L100.0100 ####[facility] [address] [place], [address] ALK PHOS 131 U/L High 40-129 [facility] Comment on above: Performed By: #### L 101.9900, L501.6710, L500.4050, L501.9910, L400.2010, L3100.3425, L501.9520, L100.0100 ####[facility] [address] [place], [address] ALT [Catalytic activity/Vol] 15 U/L Normal <=46 [facility] Comment on above: Performed By: #### L 101.9900, L501.6710, L500.4050, L501.9910, L400.2010, L3100.3425, L501.9520, L100.0100 ####[facility] [address] [place], [address] AST [Catalytic activity/Vol] 20 U/L Normal <=37 [facility] Comment on above: Performed By: #### L 101.9900, L501.6710, L500.4050, L501.9910, L400.2010, L3100.3425, L501.9520, L100.0100 ####[facility] [address] [place], [address] Bilirubin [Mass/Vol] 0.43 mg/dL Normal 0.00-1.30 [facility] Comment on above: Performed By: #### L 101.9900, L501.6710, L500.4050, L501.9910, L400.2010, L3100.3425, L501.9520, L100.0100 ####[facility] [address] [place], [address] BUN/CRE 18.3 RATIO Normal 10-20 [facility] Comment on above: Performed By: #### L 101.9900, L501.6710, L500.4050, L501.9910, L400.2010, L3100.3425, L501.9520, L100.0100 ####[facility] [address] [place], [address] Calcium [Mass/Vol] 10.7 mg/dL Normal 7.6-11.0 [facility] [place] [facility] Comment on above: Performed By: #### L 101.9900, L501.6710, L500.4050, L501.9910, L400.2010, L3100.3425, L501.9520, L100.0100 ####[facility] [address] [place], [address] Chloride [Moles/Vol] 98 mmol/L Normal 98-108 [facility] Comment on above: Performed By: #### L 101.9900, L501.6710, L500.4050, L501.9910, L400.2010, L3100.3425, L501.9520, L100.0100 ####[facility] [address] [place], [address] CO2 [Moles/Vol] 24.4 mmol/L Normal 21.0-32.0 [facility] Comment on above: Performed By: #### L 101.9900, L501.6710, L500.4050, L501.9910, L400.2010, L3100.3425, L501.9520, L100.0100 ####[facility] [address] [place], [address] Creatinine [Mass/Vol] 1.60 mg/dL High 0.70-1.20 [facility] Comment on above: Performed By: #### L 101.9900, L501.6710, L500.4050, L501.9910, L400.2010, L3100.3425, L501.9520, L100.0100 ####[facility] [address] [place], [address] GAP 16 High 5-15 [facility] Comment on above: Performed By: #### L 101.9900, L501.6710, L500.4050, L501.9910, L400.2010, L3100.3425, L501.9520, L100.0100 ####[facility] [address] [place], [address] GFR/1.73 sq M.predicted among non-blacks MDRD (S/P/Bld) [Vol rate/Area] 43 mL/min/{1.73_m2} Low >60 [facility] Comment on above: Result Comment: mL/m in/1.73m2 CKD-EPI Creatinine Equation (2020) Performed By: #### L 101.9900, L501.6710, L500.4050, L501.9910, L400.2010, L3100.3425, L501.9520, L100.0100 ####[facility] [address] [place], [address] Globulin (S) [Mass/Vol] 4.3 g/dL High 2.2-4.2 [facility] Comment on above: Performed By: #### L 101.9900, L501.6710, L500.4050, L501.9910, L400.2011, L3100.3425, L501.9520, L100.0100 ####[facility] [address] [place], [address] Glucose [Mass/Vol] 97 mg/dL Normal 70-99 [facility] Comment on above: Performed By: #### L 101.9900, L501.6710, L500.4050, L501.9910, L400.2011, L3100.3425, L501.9520, L100.0100 ####[facility] [address] [place], [address] Potassium [Moles/Vol] 4.7 mmol/L Normal 3.3-5.1 [facility] Comment on above: Performed By: #### L 101.9900, L501.6710, L500.4050, L501.9910, L400.2010, L3100.3425, L501.9520, L100.0100 ####[facility] [address] [place], [address] Sodium [Moles/Vol] 139 mmol/L Normal 133-145 [facility] Comment on above: Performed By: #### L 101.9900, L501.6710, L500.4050, L501.9910, L400.2010, L3100.3425, L501.9520, L100.0100 ####[facility] [address] [place], [address] T PROT 8.4 g/dL Normal 5.9-8.4 [facility] Comment on above: Performed By: #### L 101.9900, L501.6710, L500.4050, L501.9910, L400.2011, L3100.3425, L501.9520, L100.0100 ####[facility] [address] [place], [place], [address] Urea nitrogen [Mass/Vol] 29 mg/dL High 4-19 [facility] Comment on above: Performed By: #### L 101.9900, L501.6710, L500.4050, L501.9910, L400.2011, L3100.3425, L501.9520, L100.0100 ####[facility] [address] [place], [place], [address] Eosinophil percentageOrdered By: Michelte Good on 12-02-2024 Eosinophils/100 WBC (Bld) 1.3 % 0-5 [facility] Erythrocyte Sed Rateon 12-02 SED RATE 42 mm/hr High 0-20 [facility] Comment on above: Performed By: #### L 101.9900, L501.6710, L500.4050, L501.9910, L400.2010, L3100.3425, L501.9520, L100.0100 ####[facility] [address] [place], [place], [address] Erythrocyte distribution wid th ratioOrdered By: Michelet Good on 12-02-2024 Erythrocyte distribution width (RBC) [Ratio] 13.8 % 11.6-14.6 [facility] Erythrocyte distribution wid th standard deviationOrdered By: Micehlet Good on 12-02-2024 Erythrocyte distribution width (RBC) [Ratio] 45.2 fl High 35.1-43.9 [facility] Erythrocyte sedimentation ra teOrdered By: Michelet Good on 12-02-2024 ESR (Bld) [Velocity] 42 mm/h High 0-20 [facility] Glomerular filtration rate ( GFR) estimation/1.73 sq m using serum, plasma, or whole bOrdered By: Michelet Good on 12-02-2024 GFR/1.73 sq M.predicted among non-blacks MDRD (S/P/Bld) [Vol rate/Area] 43 mL/min/{1.73_m2} Low >60 [facility] Comment on above: mL/min/1.73m2 CKD-EP I Creatinine Equation (2020) Hematocrit Auto (Bld) [Volum e fraction]Ordered By: Michelet Good on 12-02-2024 Hematocrit (Bld) [Volume fraction] 38.9 % Low 40-54 [facility] Hemoglobin measurementOrdere d By: Michelet Good on 12-02-2024 Hemoglobin (Bld) [Mass/Vol] 12.4 g/dL Low 13.0-16.5 [facility] Immature granulocytes/100 WB C Auto (Bld)Ordered By: Michelet Good on 12-02-2024 Immature granulocytes/100 WBC (Bld) 0.300 % 0.0-0.9 [facility] Comment on above: IG% - Immature Granu locytes (promyelocytes, myelocytes and metamyelocytes) > 1% indicates that a LEFT SHIFT is Present. Interpretation of serum or p lasma protein pattern by immunofixation (narrative resultOrdered By: Michelet Good on 12-02-2024 Protein Fractions Immunofixation Ko [Interp] 0.6 g/dL High Not Observed [facility] Ketones Test strip Ql (U)Ord ered By: Michelet Good on 12-02-2024 Ketones Ql (U) 5 mg/dl High Negative [facility] Laboratory - Chemistry and C hemistry - challengeOrdered By: Michelet Good on 12-02-2024 AST [Catalytic activity/Vol] 20 U/L <38 [facility] MCV (mean corpuscular volume ) determinationOrdered By: Michelet Good on 12-02-2024 MCV (RBC) [Entitic vol] 89.6 fL 80-94 [facility] Mean corpuscular hemoglobin (MCH) determinationOrdered By: Michelet Good on 12-02-2024 MCH (RBC) [Entitic mass] 28.6 pg 27.0-32.0 [facility] Mean corpuscular hemoglobin concentration (MCHC) determinationOrdered By: Michelet Good on 12-02-2024 MCHC (RBC) [Mass/Vol] 31.9 g/dL Low 32-36 [facility] Mean platelet volume determi nationOrdered By: Michelet QuiñonesFlorentino on 12-02-2024 Platelet mean volume (Bld) [Entitic vol] 10.4 fL 6.2-12.0 [facility] Monocyte percentageOrdered B y: Michelet QuiñonesFlorentino on 12-02-2024 Monocytes/100 WBC (Bld) 10.0 % 0-10 [facility] Neutrophil percentageOrdered By: Michelet Florentino on 12-02-2024 Neutrophils/100 WBC (Bld) 77.0 % High 47-70 [facility] No Panel InformationOrdered By: Michelet Florentino on 12-02-2024 Addendum Document Comment . [facility] Comment on above: Protein electrophore sis scan will follow via computer,mail, or force dispatcher delivery.Performed at: [facility] [id number] Director: Torito Green PhD, Phone: [phone] 20 U/L <38 [facility] Nucleated red blood cell per centageOrdered By: Michelet Florentino on 12-02-2024 Nucleated RBC/100 WBC (Bld) [Ratio] 0 % 0-5 [facility] PSA,Total - Annual Screenon 12-02-2024 PSA,TOT SCREEN 3.39 ng/mL Normal 0.02-4.00 [facility] Comment on above: Result Comment: [...] confirm baseline values. Performed By: #### L 101.9900, L501.6710, L500.4050, L501.9910, L400.2011, L3100.3425, L501.9520, L100.0100 ####[facility] [address] [place], [address] Platelet countOrdered By: Carin Good on 12-02-2024 Platelets (Bld) [#/Vol] 391 10*3/uL 150-450 [facility] Potassium measurement (mass/ volume)Ordered By: Michelet Good on 12-02-2024 Potassium (Unsp spec) [Mass/Vol] 4.7 mmol/L 3.3-5.1 [facility] Protein Test strip Ql (U)Ord ered By: Michelet Good on 12-02-2024 Protein Ql (U) 15 mg/dl High Negative [facility] RBC Auto (Bld) [#/Vol]Ordere d By: Michelet Good on 12-02-2024 RBC (Bld) [#/Vol] 4.34 10*6/uL Low 4.6-6.2 [facility] Serum creatinine measurement (mass/volume)Ordered By: Michelet Good on 12-02-2024 Creatinine [Mass/Vol] 1.60 mg/dL High 0.70-1.20 [facility] Serum globulin measurement ( mass/volume)Ordered By: Michelet Good on 12-02-2024 Globulin (S) [Mass/Vol] 4.3 g/dL High 2.2-3.9 [facility] Serum glucose measurement (m ass/volume)Ordered By: Michelet Good on 12-02-2024 Glucose [Mass/Vol] 97 mg/dL 70-99 [facility] Serum or plasma C reactive p rotein measurement (mass/volume)Ordered By: Michelet Good on 12-02-2024 CRP [Mass/Vol] 87.20 mg/L High 0.0-3.0 [facility] Serum or plasma IgA measurem ent (mass/volume)Ordered By: Michelet Good on 12-02-2024 IgA [Mass/Vol] 275 mg/dL 61-437 [facility] Serum or plasma IgG measurem ent (mass/volume)Ordered By: Michelet Good on 12-02-2024 IgG [Mass/Vol] 1476 mg/dL 603-1613 [facility] Serum or plasma alanine keen otransferase (ALT) measurementOrdered By: Michelet Good on 12-02-2024 ALT [Catalytic activity/Vol] 15 U/L <47 [facility] Serum or plasma albumin emma urement (mass/volume)Ordered By: Michelet Good on 12-02-2024 Albumin [Mass/Vol] 4.1 g/dL 3.4-4.8 [facility] Serum or plasma albumin/glob ulin mass ratioOrdered By: Michelet Good on 12-02-2024 Albumin/Globulin [Mass ratio] 1.0 {ratio} 0.9-2.4 [facility] Serum or plasma alkaline david sphatase measurementOrdered By: Michelet Good on 12-02-2024 ALP [Catalytic activity/Vol] 131 U/L High 40-129 [facility] Serum or plasma alpha 1 glob ulin measurement by electrophoresis (mass/volume)Ordered By: Michelet Good on 12-02-2024 Alpha 1 globulin Elph [Mass/Vol] 0.4 g/dL 0.0-0.4 [facility] Alpha 1 globulin Elph [Mass/Vol] 1.2 g/dL High 0.4-1.0 [facility] Serum or plasma beta globuli n measurement by electrophoresis (mass/volume)Ordered By: Michelet Good on 12-02-2024 Beta globulin Elph [Mass/Vol] 1.2 g/dL 0.7-1.3 [facility] Serum or plasma calcium emma urement (mass/volume)Ordered By: Michelet Good on 12-02-2024 Calcium [Mass/Vol] 10.7 mg/dL 7.6-11.0 [facility] Serum or plasma gamma globul in measurement by electrophoresis (mass/volume)Ordered By: Michelet Good on 12-02-2024 Gamma globulin Elph [Mass/Vol] 1.5 g/dL 0.4-1.8 [facility] Serum or plasma immunoelectr ophoresis interpretation (nominal result)Ordered By: Michelet Good on 12-02-2024 Interpretation IEP [Interp] Comment High . [facility] Comment on above: Immunofixation shows IgG monoclonal protein with lambdalight chain specificity. Serum or plasma protein emma urement (mass/volume)Ordered By: Michelet Good on 12-02-2024 Protein [Mass/Vol] 7.8 g/dL 6.0-8.5 [facility] Serum or plasma urea nitroge n measurement (mass/volume)Ordered By: Michelet Good on 12-02-2024 Urea nitrogen [Mass/Vol] 29 mg/dL High 4-19 [facility] Sodium levelOrdered By: Michelet Good on 12-02-2024 Sodium [Moles/Vol] 139 mmol/L 133-145 [facility] TSH DL <= 0.005 mIU/L QnOrde red By: Michelet Good on 12-02-2024 TSH Qn 1.310 uIU/mL 0.300-4.200 [facility] Thyroid Stim Hormone (TSH)on 12-02-2024 TSH 1.310 uIU/mL Normal 0.300-4.200 [facility] Comment on above: Performed By: #### L 101.9900, L501.6710, L500.4050, L501.9910, L400.2010, L3100.3425, L501.9520, L100.0100 ####[facility] [address] [place], [place], [phone] Total proteinOrdered By: Shakira Good on 12-02-2024 Protein [Mass/Vol] 8.4 g/dL 5.9-8.4 [facility] Urinalysis, Routine (Dipstic k)on 12-02-2024 BILIRUBIN URINE Negative Normal Negative [facility] Comment on above: Order Comment: CLEAN CATCH Performed By: #### L 101.9900, L501.6710, L500.4050, L501.9910, L400.2010, L3100.3425, L501.9520, L100.0100 ####[facility] [address] [place], [address] GLUCOSE, UR Normal Normal Normal [facility] Comment on above: Order Comment: CLEAN CATCH Performed By: #### L 101.9900, L501.6710, L500.4050, L501.9910, L400.2010, L3100.3425, L501.9520, L100.0100 ####[facility] [address] [place], [address] KETONE UR 5 mg/dl Abnormal Negative [facility] Comment on above: Order Comment: CLEAN CATCH Performed By: #### L 101.9900, L501.6710, L500.4050, L501.9910, L400.2011, L3100.3425, L501.9520, L100.0100 ####[facility] [address] [place], [address] LEUK ESTERASE Negative Normal Negative [facility] Comment on above: Order Comment: CLEAN CATCH Performed By: #### L 101.9900, L501.6710, L500.4050, L501.9910, L400.2011, L3100.3425, L501.9520, L100.0100 ####[facility] [address] [place], [place], [phone] OCCULT BLOOD-UR Negative Normal Negative [facility] Comment on above: Order Comment: CLEAN CATCH Performed By: #### L 101.9900, L501.6710, L500.4050, L501.9910, L400.2010, L3100.3425, L501.9520, L100.0100 ####[facility] [address] [place], [place], [phone] pH UR 5.0 Normal 5.0 - 8.0 [facility] Comment on above: Order Comment: CLEAN CATCH Performed By: #### L 101.9900, L501.6710, L500.4050, L501.9910, L400.2010, L3100.3425, L501.9520, L100.0100 ####[facility] [address] [place], [place], [phone] PROT DIPSTX 15 mg/dl Abnormal Negative [facility] Comment on above: Order Comment: CLEAN CATCH Performed By: #### L 101.9900, L501.6710, L500.4050, L501.9910, L400.2011, L3100.3425, L501.9520, L100.0100 ####[facility] [address] [place], [address] SP.GR. DIPSTX 1.020 Normal 1.002-1.030 [facility] Comment on above: Order Comment: CLEAN CATCH Performed By: #### L 101.9900, L501.6710, L500.4050, L501.9910, L400.2011, L3100.3425, L501.9520, L100.0100 ####[facility] [address] [place], [address] UROBILI Normal Normal Normal [facility] Comment on above: Order Comment: CLEAN CATCH Performed By: #### L 101.9900, L501.6710, L500.4050, L501.9910, L400.2011, L3100.3425, L501.9520, L100.0100 ####[facility] [address] [place], [address] Urine clarityOrdered By: Shakira Good on 12-02-2024 Clarity (U) Clear Normal Clear [facility] Comment on above: Order Comment: CLEAN CATCH Performed By: #### L 101.9900, L501.6710, L500.4050, L501.9910, L400.2010, L3100.3425, L501.9520, L100.0100 ####[facility] [address] [place], [address] Urine color determinationOrd ered By: Michelet Good on 12-02-2024 Color (U) Straw Normal Yellow [facility] Comment on above: Order Comment: CLEAN CATCH Performed By: #### L 101.9900, L501.6710, L500.4050, L501.9910, L400.2010, L3100.3425, L501.9520, L100.0100 ####[facility] [address] [place], [address] Urine glucose detectionOrder ed By: Michelet Good on 12-02-2024 Glucose Ql (U) Normal mg/dl Normal [facility] Urine leukocyte esterase det ection by dipstickOrdered By: Michelet Good on 12-02-2024 Leukocyte esterase Test strip Ql (U) Negative Negative [facility] Urine nitrite test by dipsti ckOrdered By: Michelet Good on 12-02-2024 Nitrite Ql (U) Negative Normal Negative [facility] Comment on above: Order Comment: CLEAN CATCH Performed By: #### L 101.9900, L501.6710, L500.4050, L501.9910, L400.2011, L3100.3425, L501.9520, L100.0100 ####[facility] [address] [place], [place], [id number] Urine pHOrdered By: Michelet bear on 12-02-2024 pH (U) 5.0 [pH] 5.0 - 8.0 [facility] Urine specific gravity measu rementOrdered By: Michelet Good on 12-02-2024 Specific gravity (U) [Rel density] 1.020 1.002-1.030 [facility] Urine urobilinogen measureme ntOrdered By: Michelet Good on 12-02-2024 Urobilinogen Ql (U) Normal mg/dl Normal [facility] White blood cell (WBC) count Ordered By: Michelet Good on 12-02-2024 WBC (Bld) [#/Vol] 7.8 10*3/uL 4.4-11.0 [facility] .Auto Diffon 07-23-2024 Basophil, Absolute 0.0 10 3/mcL Normal 0.0-0.2 [facility] Comment on above: Performed By: #### M DW, BMP, ADIFF, CBC, ANEU, GFR, TROPHS #### [address] [place], [place] [address] Basophils/100 WBC (Bld) 0.3 % Normal 0.0-2.5 [facility] Comment on above: Performed By: #### M DW, BMP, ADIFF, CBC, ANEU, GFR, TROPHS #### [address] [address] Eosinophil, Absolute 0.2 10 3/mcL Normal 0.0-0.7 [facility] Comment on above: Performed By: #### M DW, BMP, ADIFF, CBC, ANEU, GFR, TROPHS #### [address] [address] Eosinophils/100 WBC (Bld) 3.3 % Normal 0.0-7.0 [facility] Comment on above: Performed By: #### M DW, BMP, ADIFF, CBC, ANEU, GFR, TROPHS #### [address] [address] Lymphocyte, Absolute 0.6 10 3/mcL Low 0.9-4.3 [facility] Comment on above: Performed By: #### M DW, BMP, ADIFF, CBC, ANEU, GFR, TROPHS #### [address] [address] Lymphocytes/100 WBC (Bld) 9.0 % Low 20.0-40.0 [facility] Comment on above: Performed By: #### M DW, BMP, ADIFF, CBC, ANEU, GFR, TROPHS #### [address] [address] Monocyte, Absolute 0.5 10 3/mcL Normal 0.1-1.4 [facility] Comment on above: Performed By: #### M DW, BMP, ADIFF, CBC, ANEU, GFR, TROPHS #### [address] [address] Monocytes/100 WBC (Bld) 7.4 % Normal 2.0-13.0 [facility] Comment on above: Performed By: #### M DW, BMP, ADIFF, CBC, ANEU, GFR, TROPHS #### [address] [address] Neutrophils/100 WBC (Bld) 80.0 % High 50.0-75.0 [facility] Comment on above: Performed By: #### M DW, BMP, ADIFF, CBC, ANEU, GFR, TROPHS #### [address] [address] .GFRon 07-23-2024 Estimated Glomerular Filtration Rate 69 ml/min/1.73sqm Normal [facility] Comment on above: Result Comment: Stages of [...] BMP, ADIFF, CBC, ANEU, GFR, TROPHS #### [address] [address] .MDWon 07-23-2024 Monocyte Distribution Width 17.36 Normal 0.00-20.00 [facility] Comment on above: Result Comment: For ED adult patients suspected of sepsis, MDW<=20.0 does not rule out sepsis or risk of sepsis Performed By: #### M DW, BMP, ADIFF, CBC, ANEU, GFR, TROPHS #### [address] [address] .NEUABSon 07-23-2024 Neutrophil, Absolute 5.0 10 3/mcL Normal 2.3-8.1 [facility] Comment on above: Performed By: #### M DW, BMP, ADIFF, CBC, ANEU, GFR, TROPHS #### [place] [address] BMPon 07-23-2024 BUN/Creatinine Ratio 15 ratio Normal 7-27 [facility] Comment on above: Performed By: #### M DW, BMP, ADIFF, CBC, ANEU, GFR, TROPHS #### [place] [address] Calcium [Mass/Vol] 9.2 mg/dL Normal 8.4-10.2 [facility] Comment on above: Performed By: #### M DW, BMP, ADIFF, CBC, ANEU, GFR, TROPHS #### [address] [address] Chloride [Moles/Vol] 104 mmol/L Normal 98-107 [facility] Comment on above: Performed By: #### M DW, BMP, ADIFF, CBC, ANEU, GFR, TROPHS #### [address] [address] CO2 [Moles/Vol] 30 mmol/L Normal 23-31 [facility] Comment on above: Performed By: #### M DW, BMP, ADIFF, CBC, ANEU, GFR, TROPHS #### [address] [address] Creatinine [Mass/Vol] 1.08 mg/dL Normal 0.70-1.30 [facility] Comment on above: Result Comment: Test ing performed on Siemens Dimension EXL analyzer using a modified kinetic Miguelina technique. Performed By: #### M DW, BMP, ADIFF, CBC, ANEU, GFR, TROPHS #### [address] [address] Electrolyte Balance 4.0 mEq/L Normal 4.0-15.0 [facility] Comment on above: Performed By: #### M DW, BMP, ADIFF, CBC, ANEU, GFR, TROPHS #### [address] [address] Glucose [Mass/Vol] 153 mg/dL High 83-110 [facility] Comment on above: Performed By: #### M DW, BMP, ADIFF, CBC, ANEU, GFR, TROPHS #### [address] [address] Potassium [Moles/Vol] 4.3 mmol/L Normal 3.5-5.1 [facility] Comment on above: Performed By: #### M DW, BMP, ADIFF, CBC, ANEU, GFR, TROPHS #### [address] [address] Sodium [Moles/Vol] 138 mmol/L Normal 136-145 [facility] Comment on above: Performed By: #### M DW, BMP, ADIFF, CBC, ANEU, GFR, TROPHS #### [place] [address] Urea nitrogen [Mass/Vol] 16 mg/dL Normal 7-18 [facility] Comment on above: Performed By: #### M DW, BMP, ADIFF, CBC, ANEU, GFR, TROPHS #### [place] [address] CBCon 07-23-2024 Erythrocyte distribution width (RBC) [Ratio] 14.1 % Normal 11.5-15.5 [facility] Comment on above: Performed By: #### M DW, BMP, ADIFF, CBC, ANEU, GFR, TROPHS #### [place] [address] Hematocrit (Bld) [Volume fraction] 39.6 % Low 40.0-52.0 [facility] Comment on above: Performed By: #### M DW, BMP, ADIFF, CBC, ANEU, GFR, TROPHS #### [place] [id number] Hgb 13.5 G/dL Normal 13.0-17.5 [facility] Comment on above: Performed By: #### M DW, BMP, ADIFF, CBC, ANEU, GFR, TROPHS #### [address] [address] MCH (RBC) [Entitic mass] 30.5 pg Normal 27.0-33.0 [facility] Comment on above: Performed By: #### M DW, BMP, ADIFF, CBC, ANEU, GFR, TROPHS #### [place] [address] MCHC 34.0 G/dL Normal 32.0-36.0 [facility] Comment on above: Performed By: #### M DW, BMP, ADIFF, CBC, ANEU, GFR, TROPHS #### [address] [address] MCV (RBC) [Entitic vol] 89.7 fL Normal 81.0-100.0 [facility] Comment on above: Performed By: #### M DW, BMP, ADIFF, CBC, ANEU, GFR, TROPHS #### [place] [id number] Platelet 288 10 3/mcL Normal 150-450 [facility] Comment on above: Performed By: #### M DW, BMP, ADIFF, CBC, ANEU, GFR, TROPHS #### [place] [id number] Platelet mean volume (Bld) [Entitic vol] 7.2 fL Normal 6.4-10.5 [facility] Comment on above: Performed By: #### M DW, BMP, ADIFF, CBC, ANEU, GFR, TROPHS #### [place] [id number] RBC 4.41 10 6/mcL Low 4.50-6.00 [facility] Comment on above: Performed By: #### M DW, BMP, ADIFF, CBC, ANEU, GFR, TROPHS #### [address] [address] WBC 6.2 10 3/mcL Normal 4.5-10.8 [facility] Comment on above: Performed By: #### M DW, BMP, ADIFF, CBC, ANEU, GFR, TROPHS #### [address] [address] [address] HEAD OR BRAIN W/O CONTRAS Ton [...] examination of the brain. Interpreted by: Kenrick Klein Preliminary Report By: Kenrick Klein Electronically signed By Kenrick Klein Dictated Date: 07/23/2024 9:25:20 AM Prelim Date: 07/23/2024 9:25:53 AM Sign Date: 07/23/2024 9:25:53 AM Ordering Provider: MARK Jean Baptiste [facility]ORATORYOrdered By: Wilbert Farooq on 07-23-2024 Appearance [...] above: Interpretive Data: T esting performed on [employer] EXL analyzer using a modified kinetic Miguelina [...] ng/L Male: 0-76 ng/L Testing performed on MT DIGITAL MEDIA using a homogeneous sandwich chemiluminescent immunoassay based on Sagebin technology. Urea nitrogen [Mass/Vol] 16 mg/dL Normal [...] MCH (RBC) [Entitic mass] 30.5 pg Normal 27.0 - 33.0 pg AO Workflow SS MCHC [...] Sensitivity Troponin I 42 ng/L Normal 0-76 [facility] Comment on above: Order Comment: hemol yzed Result Comment: High Sensitive Troponin I Reference Ranges: Female: 0-51 ng/L Male: 0-76 ng/L Testing performed on MT DIGITAL MEDIA using a homogeneous sandwich chemiluminescent immunoassay based on Sagebin technology. Performed By: #### M DW, BMP, ADIFF, CBC, ANEU, GFR, TROPHS #### [place] [id number] UAon 07-23-2024 Color (U) Yellow Normal [facility] Comment on above: Performed By: #### U A #### [place] [address] Glucose (U) [Mass/Vol] Negative Normal Negative [facility] Comment on above: Performed By: #### U A #### [address] [address] Ketones Ql (U) Negative Normal Negative [facility] Comment on above: Performed By: #### U A #### [address] [address] UA Appear Clear Normal Clear [facility] Comment on above: Performed By: #### U A #### [place] [id number] UA Blood Negative Normal Negative [facility] Comment on above: Performed By: #### U A #### [address] [address] UA Leuk Est Negative Normal Negative [facility] Comment on above: Performed By: #### U A #### [place] [id number] UA Nitrite Negative Normal Negative [facility] Comment on above: Performed By: #### U A #### [place] [id number] UA pH 6.5 Normal 5.0 - 8.0 [facility] Comment on above: Performed By: #### U A #### [place] [address] UA Protein Negative Normal Negative [facility] Comment on above: Performed By: #### U A #### [place] [address] UA Spec Grav 1.020 Normal 1.015-1.025 [facility] Comment on above: Performed By: #### U A #### [place] [address] UA Specimen Type Clean Catch Normal [facility] Comment on above: Performed By: #### U A #### [place] [address] UA Urobilinogen 0.2 E.U./dL Normal 0.2-1.0 [facility] Comment on above: Performed By: #### U A #### [place] [address] Urobilinogen (U) [Mass/Vol] Negative Normal Negative [facility] Comment on above: Performed By: #### U A #### [place] [id number] Urgent Care Visit Reporton 0 06-05-2024 Urgent Care Visit Report [facility] [address] , [address] [place] [address] OFFICE VISIT Date of Service: 06/05/24 MR#: [id number] Acct: [id number] Name: JUJU CACERES Rep #: [id number] : 1945 Provider: GIRMA Ashley Age/Sex: 78/M Location: [facility] Status: Signed Intake Vital Signs 06/05/24 10:09 Height 5 ft 8 in Weight: 171 lb BMI 25.9 BP 122/74 H Blood Pressure Location Lt brachial Position Sitting Respiration 12 Pulse 86 Pulse Source NIBP Temp 97.8 F Temp Source Oral Pulse Oximetry (%) 98 Oxygen Delivery Method room air 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 Normal [facility] Vital Signs Date Time Vital Sign Value Performing Clinician Facility 03-14-2025 11:46-0400 Body temperature 97 [degF] Dr. Michelet Good DO Work Phone: [facility] 03-14-2025 11:46-0400 Diastolic blood pressure 57 mm[Hg] Dr. Michelet Good DO Work Phone: [facility] 03-14-2025 11:46-0400 Heart rate 92 /min Dr. Michelet Good DO Work Phone: [facility] 03-14-2025 11:46-0400 Respiratory rate 16 /min Dr. Michelet Good DO Work Phone: [facility] 03-14-2025 11:46-0400 SaO2% (BldA) [Mass fraction] 98 % Dr. Michelet Good DO Work Phone: [facility] 03-14-2025 11:46-0400 Systolic blood pressure 116 mm[Hg] Dr. Michelet Good DO Work Phone: [facility] 03-14-2025 09:29-0400 Body height 167.[address] Michelet Good DO Work Phone: [facility] 03-14-2025 09:29-0400 Body weight 60.[address] Michelet Good DO Work Phone: [facility] 03-14-2025 07:55-0400 Body mass index (BMI) [Ratio] 21.5 kg/m2 Dr. Michelet Good DO Work Phone: [facility] 03-14-2025 07:55-0400 Body temperature 98.4 [degF] Dr. Michelet Good DO Work Phone: [facility] 03-14-2025 07:55-0400 Body weight 60.[address] Michelet Good DO Work Phone: [facility] 03-14-2025 07:55-0400 Diastolic blood pressure 80 mm[Hg] Dr. Michelet Good DO Work Phone: [facility] 03-14-2025 07:55-0400 Heart rate 103 /min Dr. Michelet Good DO Work Phone: [facility] 03-14-2025 07:55-0400 Respiratory rate 18 /min Dr. Michelet Good DO Work Phone: [facility] 03-14-2025 07:55-0400 SaO2% (BldA) [Mass fraction] 100 % Dr. Michelet Good DO Work Phone: [facility] 03-14-2025 07:55-0400 Systolic blood pressure 126 mm[Hg] Dr. Michelet Good DO Work Phone: [facility] 03-10-2025 09:30-0400 Body mass index (BMI) [Ratio] 20.7 kg/m2 Dr. Michelet Good DO Work Phone: [facility] 03-10-2025 09:30-0400 Body temperature 98.2 [degF] Dr. Michelet Good DO Work Phone: [facility] 03-10-2025 09:30-0400 Body weight 58.[address] Michelet Good DO Work Phone: [facility] 03-10-2025 09:30-0400 Diastolic blood pressure 71 mm[Hg] Dr. Michelet Good DO Work Phone: [facility] 03-10-2025 09:30-0400 Heart rate 89 /min Dr. Michelet Good DO Work Phone: [facility] 03-10-2025 09:30-0400 Respiratory rate 18 /min Dr. Michelet Good DO Work Phone: [facility] 03-10-2025 09:30-0400 SaO2% (BldA) [Mass fraction] 99 % Dr. Michelet Good DO Work Phone: [facility] 03-10-2025 09:30-0400 Systolic blood pressure 115 mm[Hg] Dr. Michelet oGod DO Work Phone: [facility] 03-02-2025 10:02-0400 Body height 167.[address] Michelet Good DO Work Phone: [facility] 03-02-2025 10:02-0400 Body mass index (BMI) [Ratio] 21.2 kg/m2 Dr. Michelet Good DO Work Phone: [facility] 03-02-2025 10:02-0400 Body weight 59.[address] Michelet Good DO Work Phone: [facility] 03-02-2025 09:56-0400 Body temperature 97.8 [degF] Dr. Michelet Good DO Work Phone: [facility] 03-02-2025 09:56-0400 Diastolic blood pressure 61 mm[Hg] Dr. Michelet Good DO Work Phone: [facility] 03-02-2025 09:56-0400 Heart rate 75 /min Dr. Michelet Good DO Work Phone: [facility] 03-02-2025 09:56-0400 Respiratory rate 18 /min Dr. Michelet Good DO Work Phone: [facility] 03-02-2025 09:56-0400 SaO2% (BldA) [Mass fraction] 98 % Dr. Michelet Good DO Work Phone: [facility] 03-02-2025 09:56-0400 Systolic blood pressure 105 mm[Hg] Dr. Michelet Good DO Work Phone: [facility] 02-24-2025 10:44-0400 Body mass index (BMI) [Ratio] 21.41 kg/m2 Rafael Joshua [employer] Work Phone: [facility] 02-24-2025 10:44-0400 Body weight 60.15 kg Rafael Joshua [employer] Work Phone: [facility] 02-24-2025 10:44-0400 Diastolic blood pressure 68 mm[Hg] Rafael Joshua [employer] Work Phone: [facility] 02-24-2025 10:44-0400 Heart rate 74 /min Rafael Joshua [employer]IDE Work Phone: [facility] 02-24-2025 10:44-0400 Systolic blood pressure 126 mm[Hg] Rafael Joshua [employer]IDE Work Phone: [facility] 02-14-2025 11:33-0400 Body temperature 97.6 [degF] Dr. Michelet Good DO Work Phone: [facility] 02-14-2025 11:33-0400 Diastolic blood pressure 99 mm[Hg] Dr. Michelet Good DO Work Phone: [facility] 02-14-2025 11:33-0400 Heart rate 64 /min Dr. Michelet Good DO Work Phone: [facility] 02-14-2025 11:33-0400 Respiratory rate 18 /min Dr. Michelet Good DO Work Phone: [facility] 02-14-2025 11:33-0400 SaO2% (BldA) [Mass fraction] 100 % Dr. Michelet Good DO Work Phone: [facility] 02-14-2025 11:33-0400 Systolic blood pressure 137 mm[Hg] Dr. Michelet Good DO Work Phone: [facility] 02-14-2025 07:12-0400 Body mass index (BMI) [Ratio] 22.4 kg/m2 Dr. Michelet Good DO Work Phone: [facility] 02-14-2025 07:12-0400 Body weight 63.[address] Michelet Good DO Work Phone: [facility] 02-14-2025 07:01-0400 Body height 167.[address] Michelet Good DO Work Phone: [facility] 02-10-2025 12:00-0400 Body temperature 96.91 [degF] Freddy Ben DO Work Phone: [facility] 02-10-2025 12:00-0400 Diastolic blood pressure 63 mm[Hg] Freddy Ben DO Work Phone: [facility] 02-10-2025 12:00-0400 Heart rate 103 /min Freddy Ben DO Work Phone: [facility] 02-10-2025 12:00-0400 Respiratory rate 20 /min Freddy Ben DO Work Phone: [facility] 02-10-2025 12:00-0400 SaO2% (BldA) [Mass fraction] 100 % Freddy Ben DO Work Phone: [facility] 02-10-2025 12:00-0400 Systolic blood pressure 122 mm[Hg] Freddy Ben DO Work Phone: [facility] 02-08-2025 06:08-0400 Body height 167.6 cm Freddy Ben DO Work Phone: [facility] 02-08-2025 06:08-0400 Body mass index (BMI) [Ratio] 22.78 kg/m2 Freddy Ben DO Work Phone: [facility] 02-08-2025 06:08-0400 Body weight 64 kg Freddy Ben DO Work Phone: [facility] 02-04-2025 13:04-0400 Diastolic blood pressure 66 mm[Hg] Dr. Michelet Good DO Work Phone: [facility] 02-04-2025 13:04-0400 Heart rate 66 /min Dr. Michelet Good DO Work Phone: [facility] 02-04-2025 13:04-0400 Systolic blood pressure 125 mm[Hg] Dr. Michelet Good DO Work Phone: [facility] 02-04-2025 11:36-0400 Body height 167.[address] Michelet Good DO Work Phone: [facility] 02-04-2025 11:36-0400 Body mass index (BMI) [Ratio] 22.8 kg/m2 Dr. Michelet Good DO Work Phone: [facility] 02-04-2025 11:36-0400 Body temperature 96 [degF] Dr. Michelet Good DO Work Phone: [facility] 02-04-2025 11:36-0400 Body weight 64.[address] Michelet Good DO Work Phone: [facility] 02-04-2025 11:36-0400 Respiratory rate 14 /min Dr. Michelet Good DO Work Phone: [facility] 02-04-2025 11:36-0400 SaO2% (BldA) [Mass fraction] 99 % Dr. Michelet Good DO Work Phone: [facility] 02-01-2025 05:24-0400 Body mass index (BMI) [Ratio] 23.1 kg/m2 Dr. Michelet Good DO Work Phone: [facility] 02-01-2025 05:24-0400 Body temperature 97.2 [degF] Dr. Michelet Good DO Work Phone: [facility] 02-01-2025 05:24-0400 Body weight 64.[address] Michelet Good DO Work Phone: [facility] 02-01-2025 05:24-0400 Diastolic blood pressure 80 mm[Hg] Dr. Michelet Good DO Work Phone: [facility] 02-01-2025 05:24-0400 Heart rate 107 /min Dr. Michelet Good DO Work Phone: [facility] 02-01-2025 05:24-0400 Respiratory rate 18 /min Dr. Michelet Good DO Work Phone: [facility] 02-01-2025 05:24-0400 SaO2% (BldA) [Mass fraction] 97 % Dr. Michelet Good DO Work Phone: [facility] 02-01-2025 05:24-0400 Systolic blood pressure 143 mm[Hg] Dr. Michelet Good DO Work Phone: [facility] 01-21-2025 15:00-0400 Body temperature 98.1 [degF] Dr. Michelet Good DO Work Phone: [facility] 01-21-2025 15:00-0400 Diastolic blood pressure 73 mm[Hg] Dr. Michelet Good DO Work Phone: [facility] 01-21-2025 15:00-0400 Heart rate 94 /min Dr. Michelet Good DO Work Phone: [facility] 01-21-2025 15:00-0400 Respiratory rate 18 /min Dr. Michelet Good DO Work Phone: [facility] 01-21-2025 15:00-0400 SaO2% (BldA) [Mass fraction] 96 % Dr. Michelet Good DO Work Phone: [facility] 01-21-2025 15:00-0400 Systolic blood pressure 136 mm[Hg] Dr. Michelet Good DO Work Phone: [facility] 01-21-2025 09:00-0400 Inhaled oxygen flow rate 2 L/min Dr. Michelet Good DO Work Phone: [facility] 01-19-2025 10:41-0400 Body height 167.[address] Michelet Good DO Work Phone: [facility] 01-19-2025 10:41-0400 Body weight [address] Michelet Good DO Work Phone: [facility] 01-18-2025 12:07-0400 Body mass index (BMI) [Ratio] 24.5 kg/m2 Dr. Michelet Good DO Work Phone: [facility] 01-18-2025 11:58-0400 Heart rate 88 /min Dr. Michelet Good DO Work Phone: [facility] 01-18-2025 11:58-0400 Respiratory rate 16 /min Dr. Michelet Good DO Work Phone: [facility] 01-18-2025 11:58-0400 SaO2% (BldA) [Mass fraction] 98 % Dr. Michelet Good DO Work Phone: [facility] 01-18-2025 10:02-0400 Diastolic blood pressure 86 mm[Hg] Dr. Michelet Good DO Work Phone: [facility] 01-18-2025 10:02-0400 Systolic blood pressure 154 mm[Hg] Dr. Michelet Good DO Work Phone: [facility] 01-18-2025 07:12-0400 Body temperature 98 [degF] Dr. Michelet Good DO Work Phone: [facility] 01-18-2025 05:17-0400 Body height 167.[address] Michelet Good DO Work Phone: [facility] 01-18-2025 05:17-0400 Body mass index (BMI) [Ratio] 24.7 kg/m2 Dr. Michelet Good DO Work Phone: [facility] 01-18-2025 05:17-0400 Body weight 69.[address] Michelet Good DO Work Phone: [facility] 01-06-2025 10:56-0400 Diastolic blood pressure 87 mm[Hg] Freddy Contreras DO Work Phone: [facility] 01-06-2025 10:56-0400 Heart rate 91 /min Freddy Negroer DO Work Phone: [facility] 01-06-2025 10:56-0400 Systolic blood pressure 158 mm[Hg] Freddy Contreras DO Work Phone: [facility] 01-06-2025 10:53-0400 Body height 167.6 cm Freddy Ben DO Work Phone: [facility] 01-06-2025 10:53-0400 Body mass index (BMI) [Ratio] 24.69 kg/m2 Freddy Negroer DO Work Phone: [facility] 01-06-2025 10:53-0400 Body weight 69.4 kg Freddy Contreras DO Work Phone: [facility] 12-30-2024 08:57-0400 Diastolic blood pressure 77 mm[Hg] Dr. Michelet Good DO Work Phone: [facility] 12-30-2024 08:57-0400 Heart rate 107 /min Dr. Michelet Good DO Work Phone: [facility] 12-30-2024 08:57-0400 Respiratory rate 18 /min Dr. Michelet Good DO Work Phone: [facility] 12-30-2024 08:57-0400 Systolic blood pressure 123 mm[Hg] Dr. Michelet Good DO Work Phone: [facility] 12-30-2024 08:26-0400 Body temperature 98 [degF] Dr. Michelet Good DO Work Phone: [facility] 12-27-2024 07:14-0400 Body height 172.[address] Michelet Good DO Work Phone: [facility] 12-27-2024 07:14-0400 Body mass index (BMI) [Ratio] 23.6 kg/m2 Dr. Michelet Good DO Work Phone: [facility] 12-27-2024 07:14-0400 Body temperature 97.4 [degF] Dr. Michelet Good DO Work Phone: [facility] 12-27-2024 07:14-0400 Body weight 70.[address] Michelet Good DO Work Phone: [facility] 12-27-2024 07:14-0400 Diastolic blood pressure 85 mm[Hg] Dr. Michelet Good DO Work Phone: [facility] 12-27-2024 07:14-0400 Heart rate 102 /min Dr. Michelet Good DO Work Phone: [facility] 12-27-2024 07:14-0400 Respiratory rate 18 /min Dr. Michelet Good DO Work Phone: [facility] 12-27-2024 07:14-0400 SaO2% (BldA) [Mass fraction] 95 % Dr. Michelet Good DO Work Phone: [facility] 12-27-2024 07:14-0400 Systolic blood pressure 160 mm[Hg] Dr. Michelet Good DO Work Phone: [facility] 07-23-2024 11:11-0500 Diastolic Blood Pressure Non-Invasive 70 mm[Hg] DR MARK GORE MD [facility] 07-23-2024 11:11-0500 Heart rate 72 /min DR MARK GORE MD [facility] 07-23-2024 11:11-0500 Respiratory rate 16 /min DR MARK GORE MD [facility] 07-23-2024 11:11-0500 Systolic Blood Pressure Non-Invasive 118 mm[Hg] DR MARK GORE MD [facility] 07-23-2024 10:13-0500 Diastolic Blood Pressure Non-Invasive 71 mm[Hg] DR MARK GORE MD [facility] 07-23-2024 10:13-0500 Heart rate 85 /min DR MARK GORE MD [facility] 07-23-2024 10:13-0500 Respiratory rate 16 /min DR MARK GORE MD [facility] 07-23-2024 10:13-0500 Systolic Blood Pressure Non-Invasive 123 mm[Hg] DR MARK GORE MD [facility] 07-23-2024 08:05-0500 Body temperature 97.16 [degF] DR MARK GORE MD [facility] 07-23-2024 08:05-0500 Body weight 77.[address] MARK GORE MD [facility] 07-23-2024 08:05-0500 Diastolic Blood Pressure Non-Invasive 68 mm[Hg] DR MARK GORE MD [facility] 07-23-2024 08:05-0500 Heart rate 73 /min DR MARK GORE MD [facility] 07-23-2024 08:05-0500 Respiratory rate 14 /min DR MARK GORE MD [facility] 07-23-2024 08:05-0500 Systolic Blood Pressure Non-Invasive 122 mm[Hg] DR MARK GORE MD [facility] Encounters Encounter Date Encounter Type Care Provider Facility Start: 03-20-2025 End: 03-20-2025 Emergency department patient visit Michelet [facility] Facility:[facility] Start: 03-17-2025 ambulatory Michelet [facility] Facility: [facility] Start: 03-14-2025 End: 03-14-2025 ambulatory [facility] Facility:[facility] Start: 03-10-2025 End: 03-10-2025 Dr. Parrish Miranda MD -[facility] Work Phone: Start: 03-10-2025 End: 03-10-[address] Michelet Good DO Work Phone: -[facility] Start: 03-03-2025 Encounter for other preprocedural examination [facility] Start: 03-03-2025 Dr. Sahil Stewart MD -[facility] Start: 03-03-2025 ambulatory Michelet [facility] Facility: [facility] Start: 03-02-[address] Parrish Miranda MD -[facility] Start: 03-02-2025 End: 03-02-[address] Parrish Miranda MD -[facility] Work Phone: Start: 03-02-2025 End: 03-02-2025 Dr. Parrish Miranda MD -[facility] Work Phone: Start: 03-02-2025 End: 03-02-[address] Michelet Good DO Work Phone: -[facility] Start: 02-24-2025 End: 02-24-2025 ambulatory RAFAEL JOSHUA [facility] Start: 02-24-2025 End: 02-24-2025 Postop follow up visit related to original px Rafael Joshua [employer] - LAB AIDE Work Phone: [facility] Cardiovascular Thoracic Surgery - [place] Comment on above: Mediastinal mass (Pr imary Dx); Pleural effusion Start: 02-15-2025 End: 02-15-[address] Michelet Good DO Work Phone: -[facility] aMra Aviles [facility] Start: 02-15-2025 End: 02-15-[address] Michelet Good DO -[facility] Start: 02-15-2025 End: 02-15-2025 Dr. Michelet Good DO -[facility] Start: 02-15-2025 End: 02-15-2025 ambulatory Michelet Good Facility:[facility] Start: 02-14-2025 End: 02-14-2025 Dr. Ed Parada DO -Emergency Department Work Phone: Start: 02-14-2025 End: 02-14-2025 Emergency department patient visit Dr. Michelet Good DO Work Phone: -Emergency Department Work Phone: Start: 02-08-2025 Encounter for other preprocedural examination [facility] Start: 02-08-2025 End: 02-10-2025 Encounter for other preprocedural examination [facility] Start: 02-08-2025 End: 02-10-2025 Evaluation and management of inpatient Freddy Contreras DO Work Phone: [facility] Cardiac Thoracic Vascular Intensive Care Unit CTV ICU T1 Comment on above: Preop testing (Prima ry Dx); Other diseases of mediastinum, not elsewhere classified Start: 02-08-2025 End: 02-10-2025 Patient encounter status Freddy Contreras DO Work Phone: [facility] Start: 02-04-2025 End: 02-04-[address] Michelet Good DO -Medical Out Work Phone: Start: 02-04-2025 End: 02-04-2025 Dr. Michelet Good DO -Medical Out Work Phone: Start: 02-04-2025 End: 02-04-[address] Michelet Good DO Work Phone: -Medical Out Start: 02-03-2025 End: 02-03-2025 Subsequent hospital visit by physician [facility] Xr Exam Room 1 [facility] X-Ray Comment on above: Arrived Start: 02-03-2025 End: 02-03-2025 ambulatory ABDI [facility] Start: 02-02-2025 End: 02-02-[address] Michelet Good DO Work Phone: -Laboratory [place] [facility] Start: 02-02-2025 End: 02-02-[address] Michelet [facility] Start: 02-02-2025 End: 02-02-2025 Dr. Michelet [facility] [place] [facility] Start: 02-01-2025 End: 02-01-2025 Patient encounter procedure [employer] [facility] Work Phone: Start: 02-01-2025 End: 02-01-2025 [employer] [facility] Work Phone: Start: 02-01-2025 End: 02-02-[address] Michelet Good DO Work Phone: [facility] Start: 01-21-2025 Non-patient / Non-visit Dr. Carin Narvaez [facility] Work Phone: Start: 01-21-2025 Dr. Michelet goetz DO [facility] Work Phone: Start: 01-20-2025 Non-patient / Non-visit Dr. Carin [facility]vae[facility] Work Phone: Start: 01-20-2025 Dr. Michelet [facility] Work Phone: Start: 01-19-2025 Non-patient / Non-visit Dr. Carin [facility]vae[facility] Work Phone: Start: 01-19-2025 Dr. Michelet Narvaez [facility] Work Phone: Start: 01-18-2025 Non-patient / Non-visit Dr. Carin Narvaez [facility] Work Phone: Start: 01-18-2025 Dr. Michelet goetz DO -[facility] Work Phone: Start: 01-18-2025 ambulatory Harry Guzman ity:[facility] Start: 01-18-2025 End: 01-21-2025 Evaluation and management of inpatient Dr. Michelet Donovan DO -Medical Surgical 3 Work Phone: Start: 01-18-2025 End: 01-21-2025 Dr. Michelet Donovan DO -Medical Surgical 3 Work Phone: Start: 01-06-2025 End: 01-06-2025 Office consultation new/estab patient 60 min Freddy Negroer Work Phone: [facility] Cardiovascular Thoracic Surgery - [place] Comment on above: Mediastinal mass (Pr imary Dx); Weight loss, non-intentional Start: 01-06-2025 End: 01-06-2025 ambulatory FREDDY [facility] Start: 01-03-2025 ambulatory Michelet Good Facility: [facility] Start: 12-30-2024 End: 12-30-[address] Domenico Garcia DO -Ultrasound [facility] Work Phone: Start: 12-30-2024 End: 12-30-2024 Dr. Domenico Garcia DO -Ultrasound [facility] Work Phone: Start: 12-30-2024 End: 12-30-2024 ambulatory Domenico Garcia Facility:[facility] Start: 12-27-2024 End: 12-27-[address] Michelet Good DO Work Phone: -Laboratory Start: 12-27-2024 End: 12-27-[address] oDmenico Garcia DO -Laboratory Work Phone: Start: 12-27-2024 End: 12-27-2024 Dr. Domenico Garcia DO -Laboratory Work Phone: Start: 12-27-2024 End: 12-27-[address] Domenico Garcia DO -[facility] Work Phone: Start: 12-27-2024 End: 12-27-2024 Dr. Domenico Garcia DO -[facility] Work Phone: Start: 12-27-2024 End: 12-27-[address] Michelet Good DO Work Phone: -[facility] Start: 12-27-2024 End: 12-27-2024 ambulatory Domenico Garcia Facility:[facility] Start: 12-21-2024 End: 12-21-[address] MICHELET GOOD DO Facility:[facility] Start: 12-21-2024 End: 12-21-[address] MICHELET GOOD DO [facility] Start: 12-04-2024 ambulatory Michelet Good Facility: [facility] Start: 12-02-2024 End: 12-02-[address] Michelet Good DO Work Phone: -Laboratory [facility] Start: 12-02-2024 End: 12-02-[address] Michelet Good DO -Laboratory [facility] Start: 12-02-2024 End: 12-02-2024 Dr. Michelet Good DO -Laboratory [facility] Start: 12-02-2024 End: 12-02-2024 ambulatory Michelet Good Facility:[facility] Start: 07-23-2024 End: 07-23-2024 Emergency department patient visit DR MARK GORE MD [facility] Start: 06-05-2024 End: 06-05-2024 ambulatory Michelet Florentino Facility:[facility] Procedures Date Procedure Procedure Detail Performing Clinician Start: 03-14-[address] Michelet Good DO Work Phone: Start: 03-14-[address] Carin Good DO Work Phone: Start: 03-14-2025 Mean corpuscular hemoglobin concentration determination Dr. Michelet Good DO Work Phone: Start: 03-14-[address] Michelet Good DO Work Phone: Start: 03-14-2025 Neutrophil percent differential count Dr. Michelet Good DO Work Phone: Start: 03-14-2025 Platelet mean volume determination Dr. Michelet Good DO Work Phone: Start: 03-14-2025 Serum inorganic phosphate measurement Dr. Michelet Good DO Work Phone: Start: 03-10-2025 Hepatitis B surface antibody measurement Dr. Michelet Good DO Work Phone: Start: 03-10-2025 Hepatitis C virus recombinant immunoblot measurement Dr. Michelet Good DO Work Phone: Start: 03-10-2025 Nucleated red blood cell count procedure Dr. Michelet Good DO Work Phone: Start: 03-08-2025 Positron emission tomography with computed tomography Dr. Michelet Good DO Work Phone: Start: 03-03-2025 Radiologic exam chest [address] Michelet figueroa DO Work Phone: Start: 03-02-2025 Calculation of international normalized ratio Dr. Michelet Good DO Work Phone: Start: 03-02-[address] Michelet Good DO Work Phone: Start: 03-02-2025 Serum inorganic phosphate measurement Dr. Micehlet Good DO Work Phone: Start: 03-02-2025 Total iron binding capacity measurement Dr. Michelet Good DO Work Phone: Start: 02-15-[address] Michelet Good DO Work Phone: Comment on above: Test Ordered: [id number] PTHrP (PTH-Related Peptide)PTHrP (PTH-Related Peptide) <2.0 pmol/L Reference Range: .This test was developed and its performance characteristicsdetermined by [employer]. It has not been cleared or approvedby the Food and Drug Administration.Reference Range:All Ages: <2.0The PTHrP assay should not be used to exclude cancer orscreen tumor patients for humoral hypercalcemia ofmalignancy (HHM). The results should always be assessed inconjunction with the patient's medical history, clinicalexamination, and other findings. If test results areclinically discordant, please contact the laboratory.Performed at: [facility] [address] [place], [place] [id number] Director: Anabel Cheung MD, Phone: [phone] at: [facility] [address] [id number] Director: Torito Green PhD, Phone: [phone] Start: 02-15-2025 Serum inorganic phosphate measurement Dr. Michelet Good DO Work Phone: Start: 02-14-[address] Michelet Good DO Work Phone: Start: 02-14-2025 Mean corpuscular hemoglobin concentration determination Dr. Michelet Good DO Work Phone: Start: 02-14-[address] Michelet Good DO Work Phone: Start: 02-14-2025 Nucleated red blood cell count procedure Dr. Michelet Good DO Work Phone: Start: 02-14-2025 Platelet mean volume determination Dr. Michelet Good DO Work Phone: Start: 02-14-2025 CT of abdomen and pelvis without contrast Dr. Michelet Good DO Work Phone: Start: 02-10-2025 Compatibility each unit electronic Freddy Contreras DO Work Phone: Start: 02-10-2025 Basic metabolic panel calcium total Ruchi Manley MD Work Phone: Start: 02-09-2025 Basic metabolic panel calcium total Ruchi Manley MD Work Phone: Start: 02-09-2025 Radiologic exam chest single view Dex Michael MD Work Phone: Start: 02-09-2025 Basic metabolic panel calcium total Ruchi Manley MD Work Phone: Start: 02-08-2025 Basic metabolic panel calcium total Christian Michael MD Work Phone: Start: 02-08-2025 Radiologic exam chest single view Arley Contreras DO Work Phone: Start: 02-08-2025 Cytp slctv cell enhancement interpj xcpt c/v Freddy Contreras DO Work Phone: Start: 02-08-2025 End: 02-08-2025 Mediastinoscopy includes mediastinal mass biopsy Freddy Contreras DO Work Phone: Start: 02-08-2025 End: 02-08-2025 Thoracoscopy w/lobectomy single lobe Freddy Contreras DO Work Phone: Start: 02-08-2025 Basic metabolic panel calcium total Abdi Delcid VP [employer] - LAB AIDE Work Phone: Start: 02-03-2025 Antibody screen RAFAEL JOSHUA Comment on above: Performed By: #### [id number] ####Medical Di daniel: ADITYA ESCALERA ([id number])[facility] ([address] Start: 01-21-[address] Michelet Good DO Work Phone: Start: 01-21-2025 Serum inorganic phosphate measurement Dr. Michelet Good DO Work Phone: Start: 01-20-2025 Ultrasonic guidance for thoracentesis Dr. Michelet Good DO Work Phone: Start: 01-20-2025 Mean corpuscular hemoglobin concentration determination Dr. Michelet Good DO Work Phone: Start: 01-20-[address] Michelet Good DO Work Phone: Start: 01-20-2025 Nucleated red blood cell count procedure Dr. Michelet Good DO Work Phone: Start: 01-20-2025 Platelet mean volume determination Dr. Michelet Good DO Work Phone: Start: 01-18-2025 Urine microscopy: red cells Dr. Michelet bear DO Work Phone: Start: 01-18-2025 Urnls dip stick/tablet reagent auto microscopy Dr. Michelet Good DO Work Phone: Start: 01-18-2025 CT of abdomen and pelvis without contrast Dr. Michelet Good DO Work Phone: Start: 01-18-[address] Michelet Good DO Work Phone: Start: 01-18-2025 Urine lambda light chain measurement Dr. Michelet Good DO Work Phone: Start: 01-18-2025 Vitamin D, 25-hydroxy measurement Dr. Carin Good DO Work Phone: Comment on above: Vitamin D StatusDeficiency: <20 ng/mL (5 0nmol/L)Insufficiency: 20-30 ng/mL (50-75 nmol/L)Sufficiency: 30-100 ng/mL (75-250 nmol/L)Toxicity: >100 ng/mL (>250 nmol/L) Start: 01-18-2025 Complete ultrasound of kidneys and bladder Dr. Michelet Good DO Work Phone: Start: 01-18-2025 X-ray of chest, PA and lateral views Dr. Michelet Good DO Work Phone: Start: 01-18-[address] Michelet Good DO Work Phone: Start: 12-30-[address] Michelet bear DO Work Phone: Start: 12-30-[address] Michelet Good DO Work Phone: Start: 12-30-2024 Microbial culture, body fluid Dr. Michelet figueroa DO Work Phone: Start: 12-30-2024 Blood count leukocyte wbc automated Dr. Michelet Good DO Work Phone: Start: 12-30-[address] Michelet Good DO Work Phone: Start: 12-30-[address] Carin Good DO Work Phone: Start: 12-30-2024 Ultrasonic guidance for thoracentesis Dr. Michelet Good DO Work Phone: Start: 12-27-2024 Calculation of international normalized ratio Dr. Michelet Good DO Work Phone: Start: 12-27-[address] Carin Good DO Work Phone: Start: 12-02-2024 Urnls dip stick/tablet reagent auto microscopy Dr. Michelet Good DO Work Phone: Start: 12-02-2024 Albumin/Globulin ratio Dr. Michleet Good DO Work Phone: Start: 12-02-[address] M measurement Dr. Michelet Bustamante DO Work Phone: Start: 12-02-2024 Mean corpuscular hemoglobin concentration determination Dr. Michelet Good DO Work Phone: Start: 12-02-[address] Michelet Good DO Work Phone: Start: 12-02-2024 Nucleated red blood cell count procedure Dr. Michelet Good DO Work Phone: Start: 12-02-2024 Platelet mean volume determination Dr. Michelet Good DO Work Phone: Start: 12-02-2024 Prostate specific antigen measurement Dr. Michelet Good DO Work Phone: Comment on above: This test was performed using the Ivan [...] Treatment Date Care Activity Detail Author Start: 03-24-2025 Lactate dehydrogenase measurement [facility] Start: 03-14-2025 Copper [Moles/volume] in Serum or Plasma [facility] Start: 03-14-2025 Zinc [Mass/volume] in Serum or Plasma [facility] Start: 03-14-2025 End: 03-14-2025 -[facility] Work Phone: Start: 03-08-2025 Positron emission tomography with computed tomography [facility] Start: 03-02-2025 [id number] [Mass/volume] in Serum or Plasma [facility] Start: 03-02-2025 Erythropoietin (EPO) [Units/volume] in Serum or Plasma [facility] Start: 02-24-2025 End: 02-24-2026 XR Chest 2 Views XR chest 2 views Imaging Routine Pleural effusion Expected: 02/24/2025 (Approximate), Expires: 02/24/2026 [facility] Work Phone: Comment on above: Expected: 02/24/2025 (Approximate), Expi res: 02/24/2026 Start: 02-24-2025 End: 02-24-2025 Patient encounter procedure 02/24/2025 10:30 AM EDT Office Visit [facility] Cardiovascular Thoracic Surgery - [place] [address] [place] [id number] Rafael Joshua, VP [employer] - LAB AIDE [address] [place] [address] [facility] Cardiovascular Thoracic Surgery [facility] Start: 02-14-2025 [facility] Start: 02-08-2025 End: 02-08-2025 Admission to same day surgery center 02/08/2025 7:30 AM EDT - 02/08/2025 11:30 AM EDT Surgery [facility] MA[facility] OR [address] [place] [phone] Freddy Contreras DO [address] [place] [id number] LEFT VIDEO-ASSISTED THORACOSCOPIC SURGERY [22992 (CPT )] [facility] Comment on above: LEFT VIDEO-ASSISTED THORACOSCOPIC SURGER Y [99994 (CPT )] Start: 02-08-2025 End: 02-08-2025 Anesthesia consultation 02/08/2025 7:30 AM EDT Anesthesia Event [facility] MA[facility] OR [address] [facility] [place] [phone] Abdi Delcid, VP [employer] - LAB AIDE [address] [place] [address] [facility] Start: 02-08-2025 End: 02-08-2025 Mediastinoscopy includes mediastinal mass biopsy ROBOTIC (XI) ASSISTED MEDIASTINOSCOPY Other diseases of mediastinum, not elsewhere classified 02/08/2025 7:30 AM EDT [facility] Start: 02-08-2025 Subsequent hospital visit by physician 02/08/2025 7:30 AM EDT Hospital Encounter [facility] MA[facility] OR [address] [place] [phone] Freddy Contreras DO [address] [place] [id number] [facility] OR Start: 02-08-2025 End: 02-08-2025 Thoracoscopy w/lobectomy single lobe ROBOTIC (XI) LOBECTOMY, LUNG Other diseases of mediastinum, not elsewhere classified 02/08/2025 7:30 AM EDT [facility] Start: 02-04-2025 Intravenous infusion [facility] Start: 02-04-2025 Iv infusion therapy/prophylaxis /dx 1st to 1 hr THER/PROPH/DIAG IV INF INIT [facility] Start: 01-31-2025 COVID-19 Vaccine ( season) COVID-19 Vaccine ( season) [facility] Start: 01-31-2025 Influenza vaccination Influenza Vaccine (#1) [facility] Start: 01-21-2025 Patient discharge [facility] Start: 01-18-2025 Following clinical pathway protocol [facility] Start: 01-18-2025 Ambulation without limitation [facility] Start: 01-18-2025 Assessment of risk of venous thromboembolism [facility] Start: 01-18-2025 Insertion of catheter into peripheral vein [facility] Start: 01-18-2025 Providing care according to standard [facility] Start: 01-18-2025 Referral to cable cutter and swager [facility] Start: 01-18-2025 Parathyroid hormone measurement [facility] Start: 01-18-2025 Vitamin D, 1,25-dihydroxy measurement [facility] Start: 01-18-2025 Vitamin D, 25-hydroxy measurement [facility] Start: 01-18-2025 End: 01-18-2025 [facility] Start: 01-18-2025 Hospital admission, emergency, from emergency room, medical nature [facility] Start: 01-18-2025 Verification routine [facility] Start: 01-18-2025 Admission procedure [facility] Start: 01-18-2025 [facility] Start: 01-18-2025 Patient referral to dietitian [facility] Start: 12-30-2024 Anaerobic microbial culture Anaerobic Culture [facility] Start: 12-30-2024 Microbial culture, body fluid [facility] Start: 12-30-2024 Microscopic observation [Identifier] in Body fluid by Cyto stain [facility] Start: 12-30-2024 Patient discharge [facility] Start: 12-30-2024 Vital signs measurements [facility] Start: 06-02-2024 Medicare Advantage Annual Wellness Visit Medicare Advantage Annual Wellness Visit [facility] Start: 02-01-2024 COVID-19 Vaccine ( season) COVID-19 Vaccine ( season) [facility] Start: 08-15-2018 RSV Immunization for Adults (1 - 1-dose 75+ series) RSV Immunization for Adults (1 - 1-dose 75+ series) [facility] Start: 06-07-2010 Pneumococcal Vaccine: 50+ Years (2 of 2 - PCV) Pneumococcal Vaccine: 50+ Years (2 of 2 - PCV) [facility] Start: 06-08-2009 DTaP/Tdap/Td Vaccines (1 - Tdap) DTaP/Tdap/Td Vaccines (1 - Tdap) [facility] Start: 08-15-1993 Zoster Vaccines (1 of 2) Zoster Vaccines (1 of 2) [facility] Start: 1955 Depression Screening Depression Screening [facility] Start: 1945 Lipid panel Lipid Panel [facility] Calcium [Mass/volume ] in Serum or Plasma [facility] CBC W Auto Different ial panel - Blood [facility] Cell count and Differential panel - Body fluid [facility] Comprehensive metabo lic 2000 panel - Serum or Plasma [facility] Cytology report of B sariah fluid Cyto stain [facility] Cytology report of B [facility] fluid Cyto stain [facility] INR in Blood by Coagulation assay [facility] [place]/lambda light c ayden ratio [facility] Lactate dehydrogenas e [Enzymatic activity/volume] in Body fluid by Pyruvate to lactate reaction [facility] Lactate dehydrogenas e measurement [facility] Lambda light chains. free [Mass/volume] in Serum or Plasma [facility] Microbial culture, b sariah fluid [facility] Microscopic observat ion [Identifier] in Body fluid by Cyto stain [facility] Partial thromboplast in time, activated [facility] Patient Education [facility] Work Phone: Platelets [#/volume] in Blood [facility] Protein [Mass/volume ] in Body fluid [facility] Protein [Mass/volume ] in Serum or Plasma [facility] Prothrombin time [facility] Tissue exam [facility] Work Phone: Comment on above: Release Upon Ordering for 1 Occurrences starting 02/08/2025, 1 completed Troponin T.cardiac [Mass/volume] in Serum or Plasma by High sensitivity method [facility] Ultrasonic guidance for thoracentesis [facility] Urate [Mass/volume] in Serum or Plasma [facility] Urine kappa light ch ain measurement [facility] XR Chest 2 Views XR chest 2 view s Imaging Routine Preop testing 02/03/2025 3:20 PM EDT [facility] Work Phone: XR Chest PA and Lateral [facility] Payers Date Payer Category Payer Private Health Insurance [id number] 2024 Self-pay 2023 Medicare HMO [employer] ember [id number] 2012 Private Health Insurance [id number] 1945 Unknown [id number] 1943 Unknown [id number] Unknown [id number] Unknown [id number] 2.16.840.1.687494.3.579.2. 462 Unknown [id number] 2.16.840.1.998362.3.579.2. 462 Unknown [id number] 2.16.840.1.136011.3.579.2. 462 Unknown [id number] 2.16.840.1.624162.3.579.2. 462 Unknown [id number] 2.16.840.1.247701.3.579.2. 462 Unknown [id number] 2.16.840.1.086957.3.579.2. 462 Unknown [id number] 2.16.840.1.646845.3.579.2. 462 Unknown [id number] 2.16.840.1.965855.3.579.2. 462 Unknown [id number] 2.16.840.1.550769.3.579.2. 462 Unknown [id number] 2.16.840.1.463086.3.579.2. 462 Unknown [id number] 2.16.840.1.923595.3.579.2. 462 Unknown [id number] 2.16.840.1.680078.3.579.2. 462 Unknown [id number] 2.16.840.1.862063.3.579.2. 462 Unknown [id number] 2.16.840.1.007699.3.579.2. 462 Unknown [id number] 2.16.840.1.675825.3.579.2. 462 Unknown [id number] 2.16.840.1.714311.3.579.2. 462 Unknown [id number] 2.16.840.1.798828.3.579.2. 462 Unknown [id number] 2.16.840.1.145609.3.579.2. 462 Unknown [id number] 2.16.840.1.860144.3.579.2. 462 Unknown [id number] 2.16.840.1.268460.3.579.2. 462 Unknown [id number] 2.16.840.1.127119.3.579.2. 462 Unknown [id number] 2.16.840.1.629656.3.579.2. 462 Unknown [id number] 2.16.840.1.203040.3.579.2. 462 Unknown [id number] 2.16840.1.723249.3.579.2. 462 Social History Date Type Detail Facility Tobacco smoking status [facility] Start: 1945 Sex Assigned At Male [facility] Start: 07-23-2024 End: 12-27-2024 Sex Male (finding) [facility] Tobacco smoking stat us NHIS Unknown if ever smoked [facility] Work Phone: Start: 12-27-2024 End: 02-16-2025 Tobacco smoking status NHIS Never smoked tobacco (finding) [facility] Start: 01-06-2025 End: 02-10-2025 Gender Identity Identifies as male gender (finding) [facility] Start: 01-06-2025 Tobacco use and exposure Smokeless tobacco non-user [facility] Start: 01-06-2025 End: 02-24-2025 Alcoholic beverage intake Lifetime non-drinker (finding) [facility] Start: 01-06-2025 End: 02-10-2025 [address] of [address] [facility] Start: 1945 Sex assigned at Not on file [facility] Has the [employer], [employer] or water [place] threatened to shut off services in your home in past 12Mo No [facility] (I/We) worried [facility] (my/our) food would run out before (I/we) got money to buy more. Never true [employer] In the past 12 month s, has lack of transportation kept you from medical appointments or from getting medications? No [facility] Goals Date Patient Goal Desired Activity /State Functional Status Date Assessment Result Facility 01-21-2025 Functional status Ambulates [facility] Work Phone: 07-23-2024 Functional Status [facility] 07-23-2024 Functional Status [facility] Mental Status Date Assessment Result Facility 03-03-2025 Cognitive function Awake [facility] Work Phone: 02-04-2025 Cognitive function Voice/Name [facility] Work Phone: 01-21-2025 Cognitive function Voice/Name [facility] Work Phone: 12-30-2024 Cognitive function Awake;Alert;A ppropriate;Foll ows Commands [facility] Work Phone: 07-23-2024 Mental Status Orientation Oriented x 4 [facility] 07-23-2024 Mental Status [facility] Clinical Notes 07-23-2024 to 03-02-2025 CONNIE Hickman CNP - 02/24/2025 10:30 AM EDTJennifer Berger RRT - 02/10/2025 11:28 AM EDTMrachel Ramirez - 02/10/2025 11:09 AM Omer Goncalves MD - 02/10/2025 8:32 AM EDT Note Date & Type Note Facility 03-02-2025 Progress note [facility] 02-24-2025 History of Presen t illness Narrative Formatting of this note is different fro m the original. Images from the original note were not included. [facility] Medical Group: [facility] [address] [facility] [address] Dept: [phone] Dept Loc: [phone] Visit type: Established patient Reason for Visit: Post-op Assessment and Plan 1. Mediastinal mass 02/08/25: Dr. Contreras- Left thoracoscopy converted to left thoracotomy, mediastinal biopsy, drainage of pleural effusion, parietal pleural biopsy, mechanical pleurodesis -Obtain CXR, assess for new pleural effusion. Order placed. -Pathology discussed with patient and family by Dr. Contreras, aware from PCP appointment. -Appointment with [facility]. -Incisions healing well, no redness, warmth or drainage. Suture removed. -Pain tolerable with acetaminophen. Disposition: Follow up PRN. Patient verbalized understanding of plan and stated they would call if any questions or concerns arise. Treatment Team: PCP: MICHELET GOOD Subjective HPI: Juju Caceres is a 79 y.o. male referred by Dr. Garcia for mediastinal mass. Per note, pt had CT chest completed at [place] on 12/21/24 which demonstrated a large mass [...] any medical problems and takes no medications. Juju Caceres is a 79 y.o. who presented for mediastinal mass biopsy. They underwent a open thoracotomy which they tolerated well. They were transported to PACU extubated and in stable condition. Post-operative course was unremarkable. Chest tube was removed on POD # 2. Patient's diet was advanced appropriately. Post-operative pain was well controlled with pain medications. At the time of discharge, patient was hemodynamically stable, afebrile, tolerating a regular diet without nausea or vomiting, ambulating with assistance, voiding spontaneously, and having appropriate bowel function. All discharge questions answered. Appropriate follow-up has been placed in the chart. 02/24/25: Patient in office for follow up with family. He remains tired and weak but this was baseline prior to surgery. Pain present but tolerable. Incisions healing well, suture removed. Dr. Contreras in office to discuss pathology with patient, already aware and has Oncology appt scheduled. Component Addendum ROMARIO in situ hybridization is negative. 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 Please see [employer] report [id number] for High-Grade/Large B-Cell Lymphoma FISH ordered by Dr. Michelle Tolbert. Report has been scanned into the patient's chart. Addendum electronically signed by Michelle Tolbert MD MPH on 02/21/2025 at 0950 EDT Final Diagnosis A, C: MEDIASTINAL MASS AND PARIETAL PLEURA, EXCISION - INVOLVED BY LARGE B-CELL LYMPHOMA WITH HIGH-GRADE FEATURES - PENDING CYTOGENETIC STUDIES - SEE COMMENT B: RPMI SPECIMEN: LIMITED VIABILITY; MONOTYPIC [id number] B-CELL POPULATION DETECTED at 1340 EDT Allergies[1] Current Medications[2] Medical History[3] Objective Patient reported: Failed to redirect to the Timeline version of the [employer] Smart[employer]. Vitals: 02/24/25 1044 BP: 126/68 Pulse: 74 Wt Readings from Last 3 Encounters: 02/24/25 132 lb 9.6 oz (60.1 kg) 02/08/25 141 lb 1.5 oz (64 kg) 02/03/25 141 lb (64 kg) Physical Exam Vitals reviewed. Constitutional: General: He is not in acute distress. Cardiovascular: Rate and Rhythm: Normal rate and regular rhythm. Pulses: Normal pulses. Heart sounds: No murmur heard. Pulmonary: Effort: Pulmonary effort is normal. Breath sounds: No wheezing, rhonchi or rales. Skin: General: Skin is warm and dry. Comments: Surgical incisions healing well. No redness, warmth or drainage noted. Neurological: Mental Status: He is alert. Data Reviewed and Summarized Labs/Imaging/Testing: reviewed EMR, see A&P for pertinent diagnostic results related to office visit CONNIE Lopez CNP [1] No Known Allergies [2] Current Outpatient Medications: Ascorbic Acid (vitamin C) 500 MG tablet, Take 500 mg by mouth daily., Disp: , Rfl: cholecalciferol (Vitamin D-3) 125 MCG (5000 UT) capsule, 125 mcg., Disp: , Rfl: fish oil ([place]-3) 500 MG capsule, Take 500 mg by mouth daily., Disp: , Rfl: MAGNESIUM PO, Take 250 mg by mouth., Disp: , Rfl: melatonin 3 MG tablet, 3 mg., Disp: , Rfl: metoprolol succinate XL (Toprol-XL) 50 MG 24 hr tablet, , Disp: , Rfl: Patiromer Sorbitex Calcium (Veltassa) 8.4 g pack, Take 8.4 mg by mouth daily., Disp: , Rfl: PREDNISONE PO, Take 60 mg by mouth daily., Disp: , Rfl: Zoledronic Acid (ZOMETA IV), Infuse into a venous catheter. (Patient not taking: Reported on 02/24/2025), Disp: , Rfl: [3] Past Medical History: Diagnosis Date Anemia Chronic kidney disease Hypertension Macular degeneration Pleural effusion Shortness of breath documented in this encounter [facility] 02-14-2025 Discharge summary [facility] 02-14-2025 Radiology Diagnostic study note [facility] Imaging Services [address] [place], [place] [address] Abdomen/Pelvis without Cont MR#: [id number] Acct: [id number] Name: JUJU CACERES Rep #: [id number] : 1945 M 79 From: Meet De La Rosa MD PCP: Dr. Michelet Good, Status: REG ER Study:Abdomen/Pelvis without Cont Date of Exa m: 02/14/25 Exam# [id number] Ordering Dr: Ed Griffith DO PROCEDURE: ABDOMEN/PELVIS WITHOUT CONT 02/14/2025 REASON FOR EXAM: CONSTIPATION TECHNIQUE: Procedure Code: CTABDPEL Modality: CT Procedure: ABDOMEN/PELVIS WITHOUT CONT Noncontrast technique limits evaluation of the abdominal and pelvic viscera. Coronal and Sagittal reconstruction series were provided. One or more dose reduction techniques were used (e.g., Automated exposure control, adjustment of the mA and/or kV according to patient size, use of iterative reconstruction technique). RADIATION DOSE SUMMARY: DLP: 329 mGycm COMPARISON: January 18, 2025 FINDINGS: Lung bases: There is 3.2 by 1.6 cm pleural-based density at the left lung base, image 16/184, Hounsfield units = 30. There is a 2.6 by 1.6 cm pleural-based nodular density at the left heart border, same image, Hounsfield units = 39. there is marked improvement of a left pleural effusion compared to the prior. There is a 0.4 cmnodular density at the right lung base, image 5/84, new. Liver: Unremarkable Gallbladder: Unremarkable Spleen: Unremarkable Pancreas: Unremarkable Adrenals: There is a 1.6 cm nodule in the left adrenal, Hounsfield units = 32, image 41/184. Kidneys: There is moderate right hydronephrosis with dilation of the right ureter, secondary to a mass in the right pelvis measuring 3.2 by 2.2 cm, image 137/184, similar to the prior. The left kidney shows no stone or hydronephrosis. Bladder: Unremarkable Reproductive Organs: Prostate calcifications are noted Bowel: Gas and stool is noted throughout the colon. There is a moderate stool load. There is diverticulosis of the distal descending and sigmoid colon with no visible acute diverticulitis. Appendix: Unremarkable Lymph nodes: There is no new adenopathy Vasculature: Atherosclerotic calcifications are noted. Peritoneum / Retroperitoneum: There is no free air or free fluid. Bones: Degenerative changes in the lumbar spine are similar to the prior. Thereis no visible acute bony abnormality. CT/Abdomen/Pelvis without Cont IMPRESSION: There is 3.2 by 1.6 cm pleural-based density at the left lung base, image 16/184, Hounsfield units = 30. There is a 2.6 by 1.6 cm pleural-based nodular density at the left heart border,same image, Hounsfield units = 39. PET scan correlation is recommended. There is marked improvement of a left pleural effusion compared to the prior. There is a 0.4 cm nodular density at the right lung base, image 5/84, new. There is a 1.6 cm nodule in the left adrenal, Hounsfield units = 32, image 41/184. This appears increased compared to the prior. There is diverticulosis of the distal descending and sigmoid colon with no visible acute diverticulitis. Reading Location: [facility] CC: Dr. Ed Parada DO; Dr. Michelet Good DO ~ Fire Sprinkler Inspector: Signed [facility] 02-10-2025 Note [facility] Respiratory Care Department Progress Note As part of the Respiratory Assessment Program (RAP), the following Respiratory Therapist evaluation has been completed, including a chart review and clinical/physical assessment. Respiratory Therapist RAP Evaluation Guideline Points 0 1 2 3 4 Points Strongly Consider History Factor No Pulmonary conditions Stable Pulmonary condition(s) Surgery or Intervention that may impact Pulmonary system (at risk) Surgery or Intervention that is impacting Pulmonary system Active Exacerbation of Pulmonary Condition 2 Respiratory Pattern Regular, RR= 12-18 [place] or Increased RR= 19-24 Irregular, or RR= 25-30 SOB, talk in short sentences, or RR= 31-35 Severe SOB, accessory muscle use, one word answers, or RR>35 0 Aerosol Med(s), High Flow O2 Breath Sounds Clear Diminished in 1 lobe Diminished in <= 2 lobes Adventitious breath sounds Coarse crackles, Wheezes, or Diminished in >2 lobes 0 Aerosol Med(s), Bronchial Hygiene, Hyperinflation Cough & Sputum Strong cough, no secretion retention or production Weak cough, no secretion retention or production Weak cough, w/ production (less often than Q2hr), or secretion retention No cough, w/ secretion retention or production (less often than Q2hr) Significant secretion production (more often than Q2hr) or mucus plug 0 Aerosol Med(s), Bronchial Hygiene, Hyperinflation Level of Activity Ambulatory Ambulatory with Assist Up in chair or edge of bed (dangle) Non-ambulatory, bedridden with active ROM Completely paralyzed or without active ROM 1 Triage 5 0-2 Triage 4 3-5 Triage 3 6-10 Triage 2 11-14 Triage 1 >=15 Total 3 Triage Score = 4 TRIAGE SCORING - SUGGESTED FREQUENCIES Aerosol Therapy Bronchial Hygiene Hyperinflation Triage Score Q4h & PRN 1 Q4hWA (QID) & PRN 2 TID & PRN 3 BID & PRN 4 PRN 5 Therapy(s) Indicated Yes/No Aerosol Medication Y Hyperinflation N Bronchial Hygiene N High Flow Oxygen N RT to enter/modify frequency of treatment order in EMR/EHR to match this RAP evaluation. Based on this RAP evaluation the following therapy is being initiated DUONEB At the following frequency: BID Comments: Thank you for involving Respiratory in the care of this patient, [facility] 02-10-2025 History of Present illness Narrative [facility] Respiratory Care Department Progress Note As part of the Respiratory Assessment Program (RAP), the following Respiratory Therapist evaluation has been completed, including a chart review and clinical/physical assessment. Respiratory Therapist RAP Evaluation Guideline Points 0 1 2 3 4 Points Strongly Consider History Factor No Pulmonary conditions Stable Pulmonary condition(s) Surgery or Intervention that may impact Pulmonary system (at risk) Surgery or Intervention that is impacting Pulmonary system Active Exacerbation of Pulmonary Condition 2 Respiratory Pattern Regular, RR= 12-18 [place] or Increased RR= 19-24 Irregular, or RR= 25-30 SOB, talk in short sentences, or RR= 31-35 Severe SOB, accessory muscle use, one word answers, or RR>35 0 Aerosol Med(s), High Flow O2 Breath Sounds Clear Diminished in 1 lobe Diminished in <= 2 lobes Adventitious breath sounds Coarse crackles, Wheezes, or Diminished in >2 lobes 0 Aerosol Med(s), Bronchial Hygiene, Hyperinflation Cough & Sputum Strong cough, no secretion retention or production Weak cough, no secretion retention or production Weak cough, w/ production (less often than Q2hr), or secretion retention No cough, w/ secretion retention or production (less often than Q2hr) Significant secretion production (more often than Q2hr) or mucus plug 0 Aerosol Med(s), Bronchial Hygiene, Hyperinflation Level of Activity Ambulatory Ambulatory with Assist Up in chair or edge of bed (dangle) Non-ambulatory, bedridden with active ROM Completely paralyzed or without active ROM 1 Triage 5 0-2 Triage 4 3-5 Triage 3 6-10 Triage 2 11-14 Triage 1 >=15 Total 3 Triage Score = 4 TRIAGE SCORING - SUGGESTED FREQUENCIES Aerosol Therapy Bronchial Hygiene Hyperinflation Triage Score Q4h & PRN 1 Q4hWA (QID) & PRN 2 TID & PRN 3 BID & PRN 4 PRN 5 Therapy(s) Indicated Yes/No Aerosol Medication Y Hyperinflation N Bronchial Hygiene N High Flow Oxygen N RT to enter/modify frequency of treatment order in EMR/EHR to match this RAP evaluation. Based on this RAP evaluation the following therapy is being initiated DUONEB At the following frequency: BID Comments: Thank you for involving Respiratory in the care of this patient, Nutrition rescreen completed. Patient referred to the Dietitian. Involuntary weight loss. Images from the original note were not included. Department of General Surgery CTS Service Daily Progress Note ADMIT DATE: 02/08/2025 TODAY'S DATE: 02/10/2025 SUBJECTIVE: No acute events overnight. Chest tube removed yesterday, no new shortness of breath. Pain is controlled on current medications. Denies nausea and vomiting. Denies fevers, chills, shortness of breath or chest pain. Has not ambulated yet. ROS: Noted above unless otherwise mentioned. OBJECTIVE: VITALS: Temp: [36.6 C (97.8 F)-36.7 C (98.1 F)] 36.6 C (97.8 F) Heart Rate: [77-108] 92 Resp: [12-20] 20 BP: (106-127)/(57-76) 106/68 Arterial Line BP 1: (118-147)/(52-101) 147/61 INTAKE/OUTPUT: Intake/Output Summary (Last 24 hours) at 02/10/2025 0832 Last data filed at 02/10/2025 0800 Gross per 24 hour Intake 780 ml Output 1425 ml Net -645 ml I/O last 3 completed shifts: In: 780 (12.2 mL/kg) [P.O.:780] Out: 2145 (33.5 mL/kg) [Urine:2050 (0.9 mL/kg/hr); Chest Tube:95] Weight: 64 kg I/O this shift: In: 240 [P.O.:240] Out: 125 [Urine:125] PHYSICAL EXAM: Gen: NAD, A&Ox3, pain well controlled Heart: RRR, well perfused. Lungs: Symmetric chest rise, normal work of breathing, no respiratory distress. On room air. Incisions appear C/D/I. Abd: Soft, non-tender, non-distended. Ext: Non-edematous, non-erythematous, no tenderness. Skin: Warm, dry, well perfused, no obvious rashes, cellulitis or gross discoloration LABS CBC: Auto WBC Date Value Ref Range Status 02/10/2025 10.0 3.6 - 10.7 10*3/uL Final 02/09/2025 12.3 (H) 3.6 - 10.7 10*3/uL Final 02/09/2025 12.7 (H) 3.6 - 10.7 10*3/uL Final Hemoglobin Date Value Ref Range Status 02/10/2025 7.9 (L) 13.0 - 18.0 g/dL Final 02/09/2025 7.4 (L) 13.0 - 18.0 g/dL Final 02/09/2025 7.6 (L) 13.0 - 18.0 g/dL Final Platelets Date Value Ref Range Status 02/10/2025 354 140 - 440 10*3/uL Final 02/09/2025 370 140 - 440 10*3/uL Final 02/09/2025 384 140 - 440 10*3/uL Final BMP: SODIUM Date Value Ref Range Status 02/10/2025 136 136 - 145 mmol/L Final 02/09/2025 131 (L) 136 - 145 mmol/L Final 02/09/2025 133 (L) 136 - 145 mmol/L Final POTASSIUM Date Value Ref Range Status 02/10/2025 4.5 3.5 - 5.1 mmol/L Final Comment: Plasma potassium values may be up to 0.5 mmol/L lower than serum values. 02/09/2025 5.1 3.5 - 5.1 mmol/L Final Comment: Plasma potassium values may be up to 0.5 mmol/L lower than serum values. 02/09/2025 4.9 3.5 - 5.1 mmol/L Final Comment: Plasma potassium values may be up to 0.5 mmol/L lower than serum values. CHLORIDE Date Value Ref Range Status 02/10/2025 104 98 - 107 mmol/L Final 02/09/2025 103 98 - 107 mmol/L Final 02/09/2025 102 98 - 107 mmol/L Final CARBON DIOXIDE Date Value Ref Range Status 02/10/2025 21 (L) 23 - 31 mmol/L Final 02/09/2025 19 (L) 23 - 31 mmol/L Final 02/09/2025 16 (L) 23 - 31 mmol/L Final UREA NITROGEN Date Value Ref Range Status 02/10/2025 64 (H) 9 - 23 mg/dL Final 02/09/2025 69 (H) 9 - 23 mg/dL Final 02/09/2025 69 (H) 9 - 23 mg/dL Final CREATININE Date Value Ref Range Status 02/10/2025 3.36 (H) 0.72 - 1.25 mg/dL Final 02/09/2025 3.24 (H) 0.72 - 1.25 mg/dL Final 02/09/2025 3.34 (H) 0.72 - 1.25 mg/dL Final Hepatic: No results found for: AST, ALT, ALBUMIN, BILITOT, BILIDIR, ALKPHOS Current Inpatient Medications Scheduled Meds:Scheduled Meds[1] Continuous Infusions:Continuous Meds[2] PRN Meds:PRN Meds[3] ASSESSMENT: 79 y.o. male s/p thoracotomy for mediastinal mass biopsy with Dr. Contreras on 02/08/2025 PLAN: - Doing well postoperatively - Out of bed today - Diet: Regular - Pain and nausea medications PRN - OOBA - DVT ppx with SCD's - Dispo: Home today DW Dr. Ben Goncalves MD General Surgery PGY-3 Pager [phone] [1] acetaminophen, 1,000 mg, Oral, 3 times per day ipratropium-albuterol, 3 mL, Nebulization, TID mupirocin, , Nasal, BID [2] [3] PRN medications: HYDROmorphone, melatonin, naloxone, ondansetron ODT OR ondansetron, oxyCODONE OR oxyCODONE, promethazine OR promethazine OR promethazine Cosigned by Freddy Contreras DO at 02/10/2025 11:37 AM EDT Associated attestation - Freddy Contreras DO - 02/10/2025 11:37 AM EDT CARDIOTHORACIC SURGERY DOS: 02/10/25 POD # 2 VATS/thoracotomy mediastinal biopsy I personally performed a [id number] diagnostic evaluation on this patient I agree with the findings and plan of care as documented by the COREY or resident. There has been no change in the physical exam or findings unless otherwise noted below. Doing well. Not much activity yet. Will walk with nurse this morning. No respiratory complaints. Pathology pending. Ready for discharge A total of 15 minutes were spent between the [id number] encounter, physical exam, reviewing the medical history, coordinating care, counseling/educating the patient, ordering medications/test/procedures, interpreting results and documenting in the patient's record on the day of the encounter. The patient was seen and examined independently and relevant data reviewed by myself. Lucero Contreras DO [facility] Cardiothoracic Surgery CTS Brief Note At patient bedside for chest tube removal. Explained procedure to patient and patient voiced understanding. Chest tube negative for air leak. Sutures removed and upon a large inspiratory breath, chest tube removed and occlusive dressing immediately applied. Pt tolerated procedure well. Cosigned by Freddy Contreras DO at 02/09/2025 3:35 PM EDT Images from the original note were not included. Department of General Surgery CTS Service Daily Progress Note ADMIT DATE: 02/08/2025 TODAY'S DATE: 02/09/2025 SUBJECTIVE: No acute events overnight. Pain is well controlled on current medications. Blood pressure is well controlled. Hemoglobin responded without need of blood products. Denies nausea and vomiting. Denies fevers, chills, shortness of breath or chest pain. ROS: Noted above unless otherwise mentioned. OBJECTIVE: VITALS: Temp: [35.3 C (95.6 F)-36.7 C (98.1 F)] 36.7 C (98.1 F) Heart Rate: [57-78] 77 Resp: [11-23] 13 BP: (88-116)/(42-57) 116/53 Arterial Line BP 1: (94-135)/(34-59) 118/59 INTAKE/OUTPUT: Intake/Output Summary (Last 24 hours) at 02/09/2025 0912 Last data filed at 02/09/2025 0759 Gross per 24 hour Intake 1404 ml Output 1230 ml Net 174 ml I/O last 3 completed shifts: In: 1404 (21.9 mL/kg) [I.V.:1404 (21.9 mL/kg)] Out: 940 (14.7 mL/kg) [Urine:500 (0.2 mL/kg/hr); Blood:250; Chest Tube:190] Weight: 64 kg I/O this shift: In: - Out: 290 [Urine:250; Chest Tube:40] PHYSICAL EXAM: Gen: NAD, A&Ox3, pain well controlled Heart: RRR, well perfused. Arterial line in place. Lungs: Symmetric chest rise, normal work of breathing, no respiratory distress. On room air. CT was to suction, no airleak, placed to water seal. Abd: Soft, non-tender, non-distended. Ext: Non-edematous, non-erythematous, no tenderness. Skin: Warm, dry, well perfused, no obvious rashes, cellulitis or gross discoloration LABS CBC: Auto WBC Date Value Ref Range Status 02/09/2025 12.3 (H) 3.6 - 10.7 10*3/uL Final 02/09/2025 12.7 (H) 3.6 - 10.7 10*3/uL Final 02/08/2025 12.4 (H) 3.6 - 10.7 10*3/uL Final Hemoglobin Date Value Ref Range Status 02/09/2025 7.4 (L) 13.0 - 18.0 g/dL Final 02/09/2025 7.6 (L) 13.0 - 18.0 g/dL Final 02/08/2025 7.1 (L) 13.0 - 18.0 g/dL Final Platelets Date Value Ref Range Status 02/09/2025 370 140 - 440 10*3/uL Final 02/09/2025 384 140 - 440 10*3/uL Final 02/08/2025 352 140 - 440 10*3/uL Final BMP: SODIUM Date Value Ref Range Status 02/09/2025 131 (L) 136 - 145 mmol/L Final 02/09/2025 133 (L) 136 - 145 mmol/L Final 02/08/2025 131 (L) 136 - 145 mmol/L Final POTASSIUM Date Value Ref Range Status 02/09/2025 5.1 3.5 - 5.1 mmol/L Final Comment: Plasma potassium values may be up to 0.5 mmol/L lower than serum values. 02/09/2025 4.9 3.5 - 5.1 mmol/L Final Comment: Plasma potassium values may be up to 0.5 mmol/L lower than serum values. 02/08/2025 5.1 3.5 - 5.1 mmol/L Final Comment: Plasma potassium values may be up to 0.5 mmol/L lower than serum values. CHLORIDE Date Value Ref Range Status 02/09/2025 103 98 - 107 mmol/L Final 02/09/2025 102 98 - 107 mmol/L Final 02/08/2025 103 98 - 107 mmol/L Final CARBON DIOXIDE Date Value Ref Range Status 02/09/2025 19 (L) 23 - 31 mmol/L Final 02/09/2025 16 (L) 23 - 31 mmol/L Final 02/08/2025 19 (L) 23 - 31 mmol/L Final UREA NITROGEN Date Value Ref Range Status 02/09/2025 69 (H) 9 - 23 mg/dL Final 02/09/2025 69 (H) 9 - 23 mg/dL Final 02/08/2025 64 (H) 9 - 23 mg/dL Final CREATININE Date Value Ref Range Status 02/09/2025 3.24 (H) 0.72 - 1.25 mg/dL Final 02/09/2025 3.34 (H) 0.72 - 1.25 mg/dL Final 02/08/2025 3.23 (H) 0.72 - 1.25 mg/dL Final Hepatic: No results found for: AST, ALT, ALBUMIN, BILITOT, BILIDIR, ALKPHOS Current Inpatient Medications Scheduled Meds:Scheduled Meds[1] Continuous Infusions:Continuous Meds[2] PRN Meds:PRN Meds[3] ASSESSMENT: 79 y.o. male s/p thoracotomy for mediastinal mass biopsy with Dr. Contreras on 02/08/2025 PLAN: - Doing well postoperatively - Ok to remove arterial line if correlating with blood pressure cuffs - CT to WS; monitor output - Daily CXR - Diet: Regular - Pain and nausea medications PRN - OOBA - DVT ppx with SCD's; hold Lovenox - Dispo: T1 Will discuss with Dr. Ben Goncalves MD General Surgery PGY-3 Pager [phone] [1] acetaminophen, 1,000 mg, Oral, 3 times per day ipratropium-albuterol, 3 mL, Nebulization, TID mupirocin, , Nasal, BID [2] [3] PRN medications: HYDROmorphone, naloxone, ondansetron ODT OR ondansetron, oxyCODONE OR oxyCODONE, promethazine OR promethazine OR promethazine Cosigned by Freddy Contreras DO at 02/09/2025 3:36 PM EDT Associated attestation - Freddy Contreras DO - 02/09/2025 3:36 PM EDT CARDIOTHORACIC SURGERY DOS: 02/09/25 POD # 1 Mediastinal biopsy; mechanical pleurodesis I personally performed a qrgh-ji-rrmk diagnostic evaluation on this patient I agree with the findings and plan of care as documented by the COREY or resident. There has been no change in the physical exam or findings unless otherwise noted below. He is doing well today. Not much activity yet. Chest tube with minimal serous output and no air leak. Will remove. CXR clear Pathology pending. Home soon. A total of 15 minutes were spent between the tvvt-vx-brdx encounter, physical exam, reviewing the medical history, coordinating care, counseling/educating the patient, ordering medications/test/procedures, interpreting results and documenting in the patient's record on the day of the encounter. The patient was seen and examined independently and relevant data reviewed by myself. Lucero Contreras DO [facility] Cardiothoracic Surgery Images from the original note were not included. PHYSICAL THERAPY [facility] Name/MRN: Juju Caceres ([id number]) Date: 02/09/2025 PT orders received per Gasper activity/mobility score. Patient currently with Gasper activity/mobility score greater than 2. Per therapy services guidelines, will discharge PT orders. Please place regular PT eval/treat orders if deemed appropriate. Shelli Solorzano PT documented in this encounter [facility] 02-10-2025 Patient's home Note Discussed Home Care Services available to patient post DC from the hospital. Educated the patient on the services that are provided, objective of home care, and reason for the services. The patient politely refused the home care services. The patient was educated that should any needs arise post DC to follow up with their PCP. The patient was able to verbalize understanding. Home care to sign off. Please re-consult should any other needs arise prior to DC. [facility] 02-10-2025 Miscellaneous Notes Discussed Home Care Services available to patient post DC from the hospital. Educated the patient on the services that are provided, objective of home care, and reason for the services. The patient politely refused the home care services. The patient was educated that should any needs arise post DC to follow up with their PCP. The patient was able to verbalize understanding. Home care to sign off. Please re-consult should any other needs arise prior to DC. Care Management Progress Note Short Medical why still here: Tcc chart review complete, pt eval pend, tele, left rad art line, chest tube, pressures soft, tcc to follow Planned Discharge Disposition: Home or Self Care (tbd) Barriers/Today we still Wait: Clinical stability, Cattle Tester recommendations (comment), Symptomatic control Length of Stay (Days): 1 GMLOS: No GMLOS Documented and Fernanda to bedside to see patient Unable to update patient family. All out to lunch at this time CARDIOTHORACIC SURGERY--OPERATIVE NOTE Date: 02/08/25 Preoperative Diagnosis: Mediastinal adenopathy Pleural effusion Postoperative Diagnosis: Mediastinal adenopathy Pleural effusion Procedure: Left thoracoscopy converted to left thoracotomy Mediastinal biopsy Drainage of pleural effusion Parietal pleural biopsy Mechanical pleurodesis Surgeon: Lucero Contreras DO Tractor Engine Mechanic: Dilan Goncalves MD (PGY3) Anesthesia: General--Dr. Rojas Complications: None Estimated Blood Loss: 250 ml Tubes/Wires: Chest tube x 1 Specimen: Mediastinal tissue; parietal pleura; pleural fluid for cytology Brief History: This is an 79-year-old male with recent findings of mediastinal adenopathy, fatigue, and weakness. 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 The above procedure was offered to him. Risks benefits and alternatives were explained in detail and he agreed to proceed. Findings: About 1200 mL of serous pleural fluid was drained initially. Some of this was sent for cytology. There is extensive implants on the parietal pleural surface. Some of this was biopsied. The mediastinal tissue had a very tough, fibrous, stromal character to it which is not similar to lymphatic tissue. It was covering the tissue such that I could not discern any structures within the mediastinum including the aorta. There was some bleeding that was encountered presumably from the subclavian vein that was completely encased by the tumor itself. This was controlled with Prolene stitches. I took biopsy from 3 different areas all of which showed the same fibrous tissue. Details of Procedure: The patient was brought to the operative suite and placed in supine position on the operative table. General anesthesia was administered with a double-lumen endotracheal tube and all appropriate lines and tubes were placed. He was then placed in the right lateral decubitus position. His left chest was prepped and draped in the usual sterile fashion. Local 0.25% ropivacaine was used due to the surgical sites. A 12 mm incision was made at the angle of the scapula. Once the cannula was placed lung adhesions and pleural fluid were seen. The lung was especially adherent to the mediastinum. Another incision was made in the same interspace more posteriorly. Another incision was made anteriorly in the lower chest. A fourth incision was made closer to the axilla and the approximate fourth interspace. I then placed the camera followed by my desired instruments. About 1200 mL of serous fluid was removed. Some of it was sent for cytology. The filmy lung adhesions were taken down bluntly. The lung was especially adherent to the mediastinal surface of the pleural cavity. It was gently coaxed away from the mediastinum using blunt dissection as well as gentle electrocautery. After scoring an opening in the parietal pleural surface which was quite thick I was able to locate tumor. Several blunt biopsies of this tumor were removed with a forceps. As I continued taking several small pieces unaware of the depth of some of the head vessels I encountered some significant bleeding. Several minutes of pressure were held but I continued on. It was apparent that I would have to control this bleeding surgically. The axillary incision was converted to a larger utility incision. A retractor was placed through it. A large 4-0 Prolene suture was passed around the point of bleeding in a zraxni-rf-bulxm fashion which was successful and completely controlling the bleeding. A Surgicel was placed over it for safe measures. I continued taking biopsies of the mediastinum being careful where I biopsied with regard to the surrounding anatomic structures which were closely evaluated on CT scan. Once I felt like I had sufficient tissue, all of which was very tough fibrous tissue and appearance, this portion of the procedure was completed. There is a very thickened portion of the parietal pleura posterolaterally. This was also biopsied using electrocautery. It was sent for permanent section. The chest was then copiously irrigated with warm sterile saline. The parietal pleural surface was abraded using a Bovie scratch pad for mechanical pleurodesis. A single 28 Serbian chest tube was placed in a pleural space through the inferior incision. I then turned attention to closure. Each of the incisions were closed in several layers with running absorbable sutures. The thoracotomy incision was closed first by approximating the deep musculature. The fascia was then closed overlying it with absorbable sutures. The skin was closed with running Monocryl followed by Dermabond skin adhesive. The procedure was then terminated. At the end of the procedure all the sponge and sharp counts were correct. Disposition: The patient having tolerated the procedure well was taken in stable condition to the recovery room. He was extubated in the operating room. There is no air leak. He will be admitted to the intensive care unit. 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 Priority Lab ID 1 Pleural Cavity, Left Pleural Fluid NON-GYNECOLOGIC CYTOLOGY Freddy Contreras DO 02/08/25 0833 No Description: left pleural fluid 2 Chest, Left Tissue TISSUE EXAM Freddy Contreras DO 02/08/25 0944 No Routine [id number] Description: Mediastinal Mass Comment: Send fresh for Lymphoma protocol 3 Pleural Cavity, Left Tissue TISSUE EXAM Freddy Contreras DO 02/08/25 1057 No Routine [id number] Description: parietal pleura Staff: Shortage Worker: Ellen Crowell RN; Cydney Lemons RN Scrub Person: Felipe Reynaga RN [place] to Circ: Jun Vicente RN Findings: VATS converted to thoracotomy for bleeding suspected subclavian vein. Mediastinal mass excision. Complications: None; patient tolerated the procedure well. Specimens Collected: Order Name Source Comment Collection Info Order Time PROTHROMBIN TIME If patient on coumadin within 4 days prior. 02/08/2025 6:00 AM CBC (HEMOGRAM) Blood, Venous Z01.818 Collected By: Lyndon Juarez RN 02/08/2025 6:00 AM BASIC METABOLIC PANEL Blood, Venous Z01.818 Collected By: Lyndon Juarez RN 02/08/2025 6:00 AM PREPARE RBC 02/08/2025 10:17 AM Transfusion indications Other (Specify) Other indication surgery Has consent been obtained? Yes NON-GYNECOLOGIC CYTOLOGY Pleural Cavity, Left Collected By: Freddy Contreras DO 02/08/2025 8:34 AM TISSUE EXAM Chest, Left Collected By: Freddy Contreras DO 02/08/2025 9:45 AM Wound Class: Class I: Clean Blood Products: None Prophylactic Antibiotics: Procedure appropriate prophylactic antibiotic(s) given within 1 hour of surgical incision (two hours if receiving Vancomycin or flouroquinolone) Cosigned by Freddy Contreras DO at 02/08/2025 1:45 PM EDT documented in this encounter [facility] 02-10-2025 Note Discharge Summary Juju Caceres : 1945 ADMIT DATE: 02/08/2025 DISCHARGE DATE: 02/10/2025 PRIMARY CARE PHYSICIAN: MICHELET GOOD VISIT STATUS: Admission CODE STATUS: Full Code DISCHARGE DIAGNOSES: Principal Problem: Preop testing HOSPITAL COURSE: Juju Caceres is a 79 y.o. who presented for mediastinal mass biopsy. They underwent a open thoracotomy which they tolerated well. They were transported to PACU extubated and in stable condition. Post-operative course was unremarkable. Chest tube was removed on POD # 2. Patient's diet was advanced appropriately. Post-operative pain was well controlled with pain medications. At the time of discharge, patient was hemodynamically stable, afebrile, tolerating a regular diet without nausea or vomiting, ambulating with assistance, voiding spontaneously, and having appropriate bowel function. All discharge questions answered. Appropriate follow-up has been placed in the chart. SIGNIFICANT DIAGNOSTIC STUDIES: Daily CXR CONSULTANTS: None RECOMMENDED NEXT STEPS: Follow-up with Dr. Contreras in 1-2 weeks DISCHARGE MEDICATIONS: Medication List START taking these medications oxyCODONE 5 MG immediate release tablet Commonly known as: Roxicodone Take 1 tablet (5 mg) by mouth every 6 hours as needed for severe pain (7-10) for up to 7 days. CONTINUE taking these medications cholecalciferol 125 MCG (5000 UT) capsule Commonly known as: Vitamin D-3 fish oil 500 MG capsule Commonly known as: [place]-3 MAGNESIUM PO melatonin 3 MG tablet metoprolol succinate XL 50 MG 24 hr tablet Commonly known as: Toprol-XL ZOMETA IV Where to Get Your Medications These medications were sent to [facility] [address] [place] [id number] Hours: Friday to Friday 10 am to 6 pm oxyCODONE 5 MG immediate release tablet DIET: Adult diet Regular ACTIVITY: No restriction. COMPLEXITY OF FOLLOW UP: [x] Moderate Complexity: follow up within 7-14 calendar days (30788) [] Severe Complexity: follow up within 7 calendar days (72071) FOLLOW UP TESTING, PENDING RESULTS OR REFERRALS AT TRANSITIONAL CARE VISIT: [] Yes [x] No PENDING STUDIES: Pathology DISPOSITION: Home FACILITY/HOME CARE AGENCY NAME: n/A Follow up with Freddy Contreras, DO [address] [facility] [address] [facility] [address] Follow up in 2 week(s) Postop INSTRUCTIONS TO MA/SW: Please call patient on day after discharge (must document patient contacted within 2 business days of discharge). FOLLOW UP QUESTIONS FOR MA/SW: 1. Did you get medications filled and taking them as instructed from discharge? 2. Are you following your discharge instructions from your hospital stay? 3. Please confirm patient is scheduled for a follow up appointment within the above time frame. DISCHARGE TIME: > 30 minutes SIGNED: Dilan Goncalves MD 02/10/2025, 8:36 AM [facility] 02-10-2025 Hospital course Narrative Discharge Summary Juju Caceres : 1945 ADMIT DATE: 02/08/2025 DISCHARGE DATE: 02/10/2025 PRIMARY CARE PHYSICIAN: MICHELET GOOD VISIT STATUS: Admission CODE STATUS: Full Code DISCHARGE DIAGNOSES: Principal Problem: Preop testing HOSPITAL COURSE: Juju Caceres is a 79 y.o. who presented for mediastinal mass biopsy. They underwent a open thoracotomy which they tolerated well. They were transported to PACU extubated and in stable condition. Post-operative course was unremarkable. Chest tube was removed on POD # 2. Patient's diet was advanced appropriately. Post-operative pain was well controlled with pain medications. At the time of discharge, patient was hemodynamically stable, afebrile, tolerating a regular diet without nausea or vomiting, ambulating with assistance, voiding spontaneously, and having appropriate bowel function. All discharge questions answered. Appropriate follow-up has been placed in the chart. SIGNIFICANT DIAGNOSTIC STUDIES: Daily CXR CONSULTANTS: None RECOMMENDED NEXT STEPS: Follow-up with Dr. Contreras in 1-2 weeks DISCHARGE MEDICATIONS: Medication List START taking these medications oxyCODONE 5 MG immediate release tablet Commonly known as: Roxicodone Take 1 tablet (5 mg) by mouth every 6 hours as needed for severe pain (7-10) for up to 7 days. CONTINUE taking these medications cholecalciferol 125 MCG (5000 UT) capsule Commonly known as: Vitamin D-3 fish oil 500 MG capsule Commonly known as: [place]-3 MAGNESIUM PO melatonin 3 MG tablet metoprolol succinate XL 50 MG 24 hr tablet Commonly known as: Toprol-XL ZOMETA IV Where to Get Your Medications These medications were sent to [facility] [address] [place] [address] Hours: Friday to Friday 10 am to 6 pm oxyCODONE 5 MG immediate release tablet DIET: Adult diet Regular ACTIVITY: No restriction. COMPLEXITY OF FOLLOW UP: [x] Moderate Complexity: follow up within 7-14 calendar days (15208) [] Severe Complexity: follow up within 7 calendar days (09016) FOLLOW UP TESTING, PENDING RESULTS OR REFERRALS AT TRANSITIONAL CARE VISIT: [] Yes [x] No PENDING STUDIES: Pathology DISPOSITION: Home FACILITY/HOME CARE AGENCY NAME: n/A Follow up with Freddy Contreras DO [address] [facility] [address] [facility] [address] Follow up in 2 week(s) Postop INSTRUCTIONS TO MA/SW: Please call patient on day after discharge (must document patient contacted within 2 business days of discharge). FOLLOW UP QUESTIONS FOR MA/SW: 1. Did you get medications filled and taking them as instructed from discharge? 2. Are you following your discharge instructions from your hospital stay? 3. Please confirm patient is scheduled for a follow up appointment within the above time frame. DISCHARGE TIME: > 30 minutes SIGNED: Dilan Goncalves MD 02/10/2025, 8:36 AM Cosigned by Freddy Contreras DO at 02/10/2025 11:37 AM EDT documented in this encounter [facility] 02-10-2025 Hospital Discharge instructions Dilan Goncalves MD - 02/10/2025 8:35 AM EDT Images from the original note were not included. Discharge Instructions Call your surgeon in 1 to 2 days to schedule a follow-up appointment in 1-2 weeks. OK to shower, let warm soapy water run over the incisions. OK for activity as tolerated. No lifting over 10 pounds. Wound Care: keep wound clean and dry, reinforce dressing as needed and ice to area for comfort. No driving while taking narcotic/sedating medications. You may take an over the counter stool softener while on narcotics for constipation as needed (colace, miralax, etc). Continue your diet as currently ordered. Call your Physician or return to the Emergency Room if you experience: -New or increased pain. -New or increased bleeding. -Nausea & vomitting. -Fever & chills. -Shortness of breath. -Chest pain. -Abdominal distention. documented in this encounter [facility] 02-09-2025 Note CTS Brief Note At patient bedside for chest tube removal. Explained procedure to patient and patient voiced understanding. Chest tube negative for air leak. Sutures removed and upon a large inspiratory breath, chest tube removed and occlusive dressing immediately applied. Pt tolerated procedure well. [facility] 02-09-2025 Note Care Management Prog ress Note Short Medical why still here: Tcc chart review complete, pt eval pend, tele, left rad art line, chest tube, pressures soft, tcc to follow Planned Discharge Disposition: Home or Self Care (tbd) Barriers/Today we still Wait: Clinical stability, Cattle Tester recommendations (comment), Symptomatic control Length of Stay (Days): 1 GMLOS: No GMLOS Documented [facility] 02-09-2025 Progress note Formatting of t his note might be different from the original. Care Management Progress Note Short Medical why still here: Tcc chart review complete, pt eval pend, tele, left rad art line, chest tube, pressures soft, tcc to follow Planned Discharge Disposition: Home or Self Care (tbd) Barriers/Today we still Wait: Clinical stability, Cattle Tester recommendations (comment), Symptomatic control Length of Stay (Days): 1 GMLOS: No GMLOS Documented [facility] 02-08-2025 Note Patient: Juju hernandez Procedure Summary Date: 02/08/25 Room / Location: [facility] Operating Room Anesthesia Start: 731 Anesthesia Stop: 1215 Procedures: LEFT VIDEO-ASSISTED THORACOSCOPIC SURGERY (Left) MEDIASTINOSCOPY WITH BIOPSY Diagnosis: Other diseases of mediastinum, not elsewhere classified Surgeons: Freddy Contreras DO Responsible Provider: Raymundo Rojas MD Anesthesia Type: general ASA Status: 3 Anesthesia Type: general Vitals Value Taken Time BP 93/49 02/08/25 13:00 Temp 36 ?C (96.8 ?F) 02/08/25 13:00 Pulse 61 02/08/25 13:10 Resp 12 02/08/25 13:10 SpO2 100 % 02/08/25 13:10 Vitals shown include unfiled device data. Anesthesia Post Evaluation Patient location during evaluation: PACU Patient participation: complete - patient cannot participate Level of consciousness: age appropriate, alert, awake and oriented x3 Pain management: satisfactory to patient Airway patency: patent Dental Injury: no Cardiovascular status: acceptable, blood pressure returned to baseline and hemodynamically stable Respiratory status: acceptable and spontaneous ventilation Hydration status: euvolemic Nausea/Vomiting: controlled No notable events documented. Patient can be discharged once all PACU criteria has been met. [facility] 02-08-2025 Note Patient: Juju hernandez Procedure Summary Date: 02/08/25 Room / Location: [facility] Operating Room Anesthesia Start: 731 Anesthesia Stop: 1215 Procedures: LEFT VIDEO-ASSISTED THORACOSCOPIC SURGERY (Left) MEDIASTINOSCOPY WITH BIOPSY Diagnosis: Other diseases of mediastinum, not elsewhere classified Surgeons: Freddy Contreras DO Responsible Provider: Raymundo Rojas MD Anesthesia Type: general ASA Status: 3 Anesthesia Type: general Vitals Value Taken Time BP 93/49 02/08/25 13:00 Temp 36 ?C (96.8 ?F) 02/08/25 13:00 Pulse 61 02/08/25 13:10 Resp 12 02/08/25 13:10 SpO2 100 % 02/08/25 13:10 Vitals shown include unfiled device data. Anesthesia Post Evaluation Patient participation: complete - patient participated Regional recovery expected within 48 hours: complete Level of consciousness: age appropriate, alert, arousable and oriented x3 Pain management: satisfactory to patient Multimodal analgesia pain management approach Airway patency: patent Two or more strategies used to mitigate risk of obstructive sleep apnea Respiratory status: acceptable Cardiovascular status: acceptable Hydration status: acceptable No notable events documented. MIPS #430 PONV Patient received an inhalational anesthetic (4554F) Patient exhibits three or more risk factors for PONV (4556F) Patient received at leaset 2 prophylactic Rx PONV anti-emtic agents of different classes preop and/or intraop (G9775) MIPS # 424 Perioperative Temperature Management Anesthesia time was 60 minutes or longer (4255F) Anesthesai administered was General (inhalational or TIVA) or Neuraxial block (X0424) At least one body temperature greater than 95.8F/35.5C achieved within the 30 mins immediately prior to or the 15 minutes immediately following anesthesia end time (G9771) MIPS #477 Multimodal Pain Management Not emergent case MIPS #404 Anesthesiology Smoking Abstinence The patient is not a current smoker (e.g. cigarette, cigar, pipe, e-cigarette/vaping/marijuana) If no stop here (XX404) I completed my handoff to the receiving clinician during which we: 1. Identified the patient 2. Identified the responsible provider 3. Reviewed the pertinent medical history 4. Discussed the surgical course 5. Reviewed intra-op anesthesia management and issues during anesthesia 6. Set expectations for post-procedure period 7. Allowed opportunity for questions and acknowledgement of understanding. [facility] 02-08-2025 Procedure note and Fernanda to bedside to see patient [facility] 02-08-2025 Procedure note Unable to update patient family. All out to lunch at this time [facility] 02-08-2025 Note Peripheral IV Date/Time: 02/08/2025 8:05 AM Placement Needle size: 18 G Laterality: right Location: wrist Local anesthetic: none Site prep: alcohol Technique: anatomical landmarks Attempts: 1 [facility] 02-08-2025 Note Arterial Line: Date/Time: 02/08/2025 7:55 AM An arterial line was placed in the Procedural for the following indication(s): continuous blood pressure monitoring and blood sampling needed. The procedure was performed using ultrasound guidance . A 20 gauge (size), 1 and 3/4 inch (length), Arrow (type) catheter was placed, into the Left radial artery, secured by Tegaderm and tape. Events: patient tolerated procedure well with no complications. Staffing Performed: DRY COLOR TESTER Resident/DRY COLOR TESTER: Yury Montoya CRNA [facility] 02-08-2025 Note Airway Date/Time: 02/08/2025 7:50 AM Reason: scheduled Airway not difficult General Information and Staff Patient location during procedure: Procedural Resident/DRY COLOR TESTER: Yury Montoya CRNA Performed: SRNA Patient Condition Indications for airway management: anesthesia Patient position: sniffing Sedation level: Asleep Final Airway Details Preoxygenated: yes Final airway type: endotracheal airway Successful airway: ETT - double lumen left Cuffed: yes Successful intubation technique: direct laryngoscopy Adjuncts used in placement: intubating stylet Blade: Hedy Blade size: #4 ETT DL size (fr): 39 Cormack-Lehane Classification: grade I - full view of glottis Placement verified by: bronchoscopy and capnometry Measured from: lips ETT to lips (cm): 31 Number of attempts at approach: 1 Number of other approaches attempted: 0 [facility] 02-08-2025 Note Peripheral Block Time Out: 02/08/2025 7:41 AM Patient location during procedure: Procedural Start time: 02/08/2025 7:41 AM End time: 02/08/2025 7:45 AM Reason for block: at surgeon's request and post-op pain management Staffing Performed: ELVIA Resident/DRY COLOR TESTER: Yury Montoya CRNA Preanesthetic Checklist Completed: patient identified, IV checked, site marked, risks and benefits discussed, surgical consent, monitors and equipment checked, pre-op evaluation and timeout performed Region: Truncal Primary: Serratus Anterior Laterality: Left Patient position: supine Prep: ChloraPrep Patient monitoring: heart rate, electronic device monitor, continuous pulse ox and continuous capnometry O2: ETT/LMA Injection technique: single-shot Guidance: ultrasound guided - tip of the needle identified by ultrasound during injection Needle Needle: 22G X 80 mm Assessment Injection assessment: negative aspiration for heme, incremental injection and local visualized surrounding nerve on ultrasound Heart rate change: no Slow fractionated injection: yes Required Documentation: Relevant anatomy identified (Nerves, Vessels, Muscles), Negative for blood on aspiration, Local anesthetic injected incrementally with intermittent aspiration every 5 mL, Normal resistance with injection, Local anesthetic spread visualized around nerves or plane., No EKG changes noted, No symptoms of toxicity and Local anesthetic injected without difficulty Medications reaBNCPKdumtk-ksxyhmomyeh-cqvqflbctd e (TAP) syringe - Injection 20 mL - 02/08/2025 7:41:00 AM bupivacaine liposome (Exparel) 1.3 % injection - Injection 10 mL - 02/08/2025 7:41:00 AM [facility] 02-08-2025 Procedure note CARDIOTHORACIC SURGERY--OPERATIVE NOTE Date: 02/08/25 Preoperative Diagnosis: Mediastinal adenopathy Pleural effusion Postoperative Diagnosis: Mediastinal adenopathy Pleural effusion Procedure: Left thoracoscopy converted to left thoracotomy Mediastinal biopsy Drainage of pleural effusion Parietal pleural biopsy Mechanical pleurodesis Surgeon: Lucero Contreras DO Tractor Engine Mechanic: Dilan Goncalves MD (PGY3) Anesthesia: General--Dr. Rojas Complications: None Estimated Blood Loss: 250 ml Tubes/Wires: Chest tube x 1 Specimen: Mediastinal tissue; parietal pleura; pleural fluid for cytology Brief History: This is an 79-year-old male with recent findings of mediastinal adenopathy, fatigue, and weakness. 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 The above procedure was offered to him. Risks benefits and alternatives were explained in detail and he agreed to proceed. Findings: About 1200 mL of serous pleural fluid was drained initially. Some of this was sent for cytology. There is extensive implants on the parietal pleural surface. Some of this was biopsied. The mediastinal tissue had a very tough, fibrous, stromal character to it which is not similar to lymphatic tissue. It was covering the tissue such that I could not discern any structures within the mediastinum including the aorta. There was some bleeding that was encountered presumably from the subclavian vein that was completely encased by the tumor itself. This was controlled with Prolene stitches. I took biopsy from 3 different areas all of which showed the same fibrous tissue. Details of Procedure: The patient was brought to the operative suite and placed in supine position on the operative table. General anesthesia was administered with a double-lumen endotracheal tube and all appropriate lines and tubes were placed. He was then placed in the right lateral decubitus position. His left chest was prepped and draped in the usual sterile fashion. Local 0.25% ropivacaine was used due to the surgical sites. A 12 mm incision was made at the angle of the scapula. Once the cannula was placed lung adhesions and pleural fluid were seen. The lung was especially adherent to the mediastinum. Another incision was made in the same interspace more posteriorly. Another incision was made anteriorly in the lower chest. A fourth incision was made closer to the axilla and the approximate fourth interspace. I then placed the camera followed by my desired instruments. About 1200 mL of serous fluid was removed. Some of it was sent for cytology. The filmy lung adhesions were taken down bluntly. The lung was especially adherent to the mediastinal surface of the pleural cavity. It was gently coaxed away from the mediastinum using blunt dissection as well as gentle electrocautery. After scoring an opening in the parietal pleural surface which was quite thick I was able to locate tumor. Several blunt biopsies of this tumor were removed with a forceps. As I continued taking several small pieces unaware of the depth of some of the head vessels I encountered some significant bleeding. Several minutes of pressure were held but I continued on. It was apparent that I would have to control this bleeding surgically. The axillary incision was converted to a larger utility incision. A retractor was placed through it. A large 4-0 Prolene suture was passed around the point of bleeding in a tnaszd-vp-pkdli fashion which was successful and completely controlling the bleeding. A Surgicel was placed over it for safe measures. I continued taking biopsies of the mediastinum being careful where I biopsied with regard to the surrounding anatomic structures which were closely evaluated on CT scan. Once I felt like I had sufficient tissue, all of which was very tough fibrous tissue and appearance, this portion of the procedure was completed. There is a very thickened portion of the parietal pleura posterolaterally. This was also biopsied using electrocautery. It was sent for permanent section. The chest was then copiously irrigated with warm sterile saline. The parietal pleural surface was abraded using a Bovie scratch pad for mechanical pleurodesis. A single 28 Serbian chest tube was placed in a pleural space through the inferior incision. I then turned attention to closure. Each of the incisions were closed in several layers with running absorbable sutures. The thoracotomy incision was closed first by approximating the deep musculature. The fascia was then closed overlying it with absorbable sutures. The skin was closed with running Monocryl followed by Dermabond skin adhesive. The procedure was then terminated. At the end of the procedure all the sponge and sharp counts were correct. Disposition: The patient having tolerated the procedure well was taken in stable condition to the recovery room. He was extubated in the operating room. There is no air leak. He will be admitted to the intensive care unit. 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 Priority Lab ID 1 Pleural Cavity, Left Pleural Fluid NON-GYNECOLOGIC CYTOLOGY Freddy Contreras DO 02/08/25 0833 No Description: left pleural fluid 2 Chest, Left Tissue TISSUE EXAM Freddy Contreras DO 02/08/25 0944 No Routine [id number] Description: Mediastinal Mass Comment: Send fresh for Lymphoma protocol 3 Pleural Cavity, Left Tissue TISSUE EXAM Freddy Contreras DO 02/08/25 1057 No Routine [id number] Description: parietal pleura Staff: Shortage Worker: Ellen Crowell RN; Cydney Lemons RN Scrub Person: Felipe Reynaga RN [place] to Circ: Jun Vicente RN Findings: VATS converted to thoracotomy for bleeding suspected subclavian vein. Mediastinal mass excision. Complications: None; patient tolerated the procedure well. Specimens Collected: Order Name Source Comment Collection Info Order Time PROTHROMBIN TIME If patient on coumadin within 4 days prior. 02/08/2025 6:00 AM CBC (HEMOGRAM) Blood, Venous Z01.818 Collected By: Lyndon Juarez RN 02/08/2025 6:00 AM BASIC METABOLIC PANEL Blood, Venous Z01.818 Collected By: Lyndon Juarez RN 02/08/2025 6:00 AM PREPARE RBC 02/08/2025 10:17 AM Transfusion indications Other (Specify) Other indication surgery Has consent been obtained? Yes NON-GYNECOLOGIC CYTOLOGY Pleural Cavity, Left Collected By: Freddy Contreras DO 02/08/2025 8:34 AM TISSUE EXAM Chest, Left Collected By: Freddy Contreras DO 02/08/2025 9:45 AM Wound Class: Class I: Clean Blood Products: None Prophylactic Antibiotics: Procedure appropriate prophylactic antibiotic(s) given within 1 hour of surgical incision (two hours if receiving Vancomycin or flouroquinolone) Cosigned by Freddy Contreras DO at 02/08/2025 1:[address] [facility] [employer] Phone: 02-08-2025 Note Peripheral Block Time Out: 02/08/2025 7:15 AM Patient location during procedure: pre-op Start time: 02/08/2025 7:15 AM End time: 02/08/2025 7:20 AM Reason for block: at surgeon's request and post-op pain management Staffing Performed: DRY COLOR TESTER Resident/DRY COLOR TESTER: Parrish Major CRNA Preanesthetic Checklist Completed: patient identified, IV checked, site marked, risks and benefits discussed, surgical consent and timeout performed Region: Truncal Primary: Erector Spinae Laterality: Left Patient position: sitting Prep: ChloraPrep Patient monitoring: continuous pulse ox O2: Nasal cannula Injection technique: single-shot Guidance: ultrasound guided - tip of the needle identified by ultrasound during injection Needle Needle: 21G X 100 mm Assessment Injection assessment: negative aspiration for heme and incremental injection Heart rate change: no Slow fractionated injection: yes Required Documentation: Relevant anatomy identified (Nerves, Vessels, Muscles), Negative for blood on aspiration, Local anesthetic injected incrementally with intermittent aspiration every 5 mL, Normal resistance with injection, Local anesthetic spread visualized around nerves or plane., No EKG changes noted and No symptoms of toxicity Medications mimZVZNHmdcsv-mmwsxdzgczu-lpcuhrmsie e (TAP) syringe - Injection 20 mL - 02/08/2025 7:15:00 AM bupivacaine liposome (Exparel) 1.3 % injection - Injection 10 mL - 02/08/2025 7:15:00 AM [facility] 02-08-2025 History and physical note Images from the original note were not included. [facility] CARDIOVASCULAR & THORACIC SURGERY [address] [facility] [address] Dept: [phone] Dept Loc: [phone] Visit type: New Reason for Visit: Mediastinal [...] a 79 y.o. male referred by Dr. Garcia for mediastinal mass. Per note, pt had CT chest completed at [place] on 12/21/24 which demonstrated a large mass [...] and takes no medications. Past Medical History Medical History Past Medical History: Diagnosis Date Macular degeneration Past Surgical History [Surgical History] [Surgical History] Past Surgical History History reviewed. No pertinent surgical history. Family History [Family History] [Family History] Problem Relation Name Age of Onset Throat cancer Brother Social History Marital status: Work history: Retired [Social History] [Social History] Tobacco Use Smoking status: Never Smokeless tobacco: Never Substance Use Topics Alcohol use: Never Drug use: Never Allergies Allergies No Known Allergies Medications Current Medications No current outpatient medications on file. [...] Chest 12/21/24 Patient Care Team: PCP: Michelet Good MD Pulmonology: DO Lucero Golden DO FACS Cardiothoracic Surgery Patient seen in holding area today. No new issues. Will proceed with left VATS for mediastinal biopsy. R. Ramon Ben, DO FACS Cardiothoracic Surgery [facility] 02-08-[address] [facility] CARDIOVASCULAR & THORACIC SURGERY [address] [facility] [address] Dept: [phone] Dept Loc: [phone] Visit type: New Reason for Visit: Mediastinal [...] a 79 y.o. male referred by Dr. Garcia for mediastinal mass. Per note, pt had CT chest completed at [place] on 12/21/24 which demonstrated a large mass [...] and takes no medications. Past Medical History Medical History Past Medical History: Diagnosis Date Macular degeneration Past Surgical History [Surgical History] [Surgical History] Past Surgical History History reviewed. No pertinent surgical history. Family History [Family History] [Family History] Problem Relation Name Age of Onset Throat cancer Brother Social History Marital status: Work history: Retired [Social History] [Social History] Tobacco Use Smoking status: Never Smokeless tobacco: Never Substance Use Topics Alcohol use: Never Drug use: Never Allergies Allergies No Known Allergies Medications Current Medications No current outpatient medications on file. [...] Chest 12/21/24 Patient Care Team: PCP: Michelet Good MD Pulmonology: DO Lucero Golden DO FACS Cardiothoracic Surgery Patient seen in [facility] today. No new issues. Will proceed with left VATS for mediastinal biopsy. Lucero Contreras DO FACS Cardiothoracic Surgery [facility] 02-08-2025 History and physical note Images from the original note were not included. [facility] CARDIOVASCULAR & THORACIC SURGERY [address] [facility] [address] Dept: [phone] Dept Loc: [phone] Visit type: New Reason for Visit: Mediastinal [...] a 79 y.o. male referred by Dr. Garcia for mediastinal mass. Per note, pt had CT chest completed at [place] on 12/21/24 which demonstrated a large mass [...] and takes no medications. Past Medical History Medical History Past Medical History: Diagnosis Date Macular degeneration Past Surgical History [Surgical History] [Surgical History] Past Surgical History History reviewed. No pertinent surgical history. Family History [Family History] [Family History] Problem Relation Name Age of Onset Throat cancer Brother Social History Marital status: Work history: Retired [Social History] [Social History] Tobacco Use Smoking status: Never Smokeless tobacco: Never Substance Use Topics Alcohol use: Never Drug use: Never Allergies Allergies No Known Allergies Medications Current Medications No current outpatient medications on file. [...] Chest 12/21/24 Patient Care Team: PCP: Michelet Good MD Pulmonology: DO Lucero Golden DO FACS Cardiothoracic Surgery Patient seen in holding area today. No new issues. Will proceed with left VATS for mediastinal biopsy. Lucero Contreras DO FACS Cardiothoracic Surgery documented in this encounter [facility] 02-03-2025 Note Patient: Juju hernandez Procedure Information Date/Time: 02/08/25 9330 Procedures: LEFT VIDEO-ASSISTED THORACOSCOPIC SURGERY (Left) - 4 hours MEDIASTINOSCOPY WITH BIOPSY Location: [address] Operating Room Surgeons: Freddy Contreras, Relevant Problems Anesthesia (within normal limits) Past Medical History: Past Medical History: No date: Hypertension No date: Macular degeneration No date: Pleural effusion No date: Shortness of breath Past Surgical History: Past Surgical History: No date: COLONOSCOPY Social History: TOBACCO: reports that he has never smoked. He has never used smokeless tobacco. ETOH: reports no history of alcohol use. Social History Substance and Sexual Activity Drug Use Never Family History: Family History[1] Screening: unknown Clinical information reviewed: Tobacco Allergies Meds Med Hx Surg Hx Fam Hx Soc Hx Physical Exam Airway Mallampati: II TM distance: >3 FB Neck ROM: full Mouth Open: normalendotracheal tube not in place Cardiovascular Dental dentition normal Pulmonary Abdominal Anesthesia Plan Any family history or previous problems with anesthesia no We discussed risks, benefits, alternatives and likelihood of success with the Patient. ASA 3 general Any family history or previous problems with anesthesia no The patient is not a current smoker. patient is NPO appropriate Anesthesia Dejesus Considerations A-line post induction KATIE Screening Labs: No results found for: WBC, HGB, HCT, MCV, PLT No results found for: SODIUM, NA, POTASSIUM, K, CHLORIDE, CL, CO2, BUN, CREATININE, GLUCOSE, CALCIUM, PROT, BILIRUBINFL, ALKPHOS, AST, ALT, EGFR, GLOB No echocardiogram results found for the past 14 days No results found for this or any previous visit. Equipment Requests: Additional Equipment Requests Tube type: double lumen Vascular Equipment: arterial line kit and 2nd IV Additional Equipment: ultrasound Care Team and Block Team [1] Family History Problem Relation Name Age of Onset Throat cancer Brother [facility] 02-03-2025 Note Addendum 02/03/2025 17 00: Abnormal Labs consistent with CKD, appear to be stable. Sent to surgeon as FYI for review - Abdi Delcid, VP [employer] - LAB AIDE Comprehensive Pre Surgical History and Physical ? 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 Based on the below evaluation, the benefits of the planned procedure likely exceed the risks. The patient is medically optimized to proceed with the planned procedure without any further cardiopulmonary testing. 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 He has been experiencing exertional SOB, but not hindering his activities but new for him in the past 2 months with his lung findings. No cardiac complaints. Known lung mass and pleural effusions suspicious for malignancy - No further evaluation required at this time 2) HTN BP Readings from Last 3 Encounters: 02/03/25 136/61 01/06/25 (!) 158/87 - Controlled - Follows PCP for management - Managed with metoprolol - Patient is compliant with medication(s) - EKG and labs in PAT 3) Syncope - Asymptomatic since 07/2024, ? 2/2 to KO, seen at [place], discharged home same day - Last ECHO none on file - Follows PCP - Managed with none - EKG and labs in PAT - No acute findings, no further evaluation is required 4) CKD-Stage 3 vs 4? - Follows PCP/Nephrology for management - BMP 01/18/25 reviewed ([facility]): Cr 3.72, GFR 16, BUN 51, K 4.0 - Following nephrology, Dr. Gutierrez with [facility], last seen 01/18/25 - Repeat BMP in PAT 5) Pleural Effusions - Recent CT Chest 12/21/24 reviewed ([place]) Large LEFT sided pleural effusion, large lung mass most consistent with malignancy - Follows Pulmonology, Dr. Garcia in [place], last seen 12/24/24- referred to Dr. Contreras for further management - Managed with none - Continue inhalers DOS and as directed - Last used rescue inhaler N/A - Lungs Diminished in LEFT lung base, otherwise clear, NAD noted. SpO2 98% RA 6) Anemia - Source: Unspecified - Last CBC01/18/25 ([facility]): H/H 10.2/30.8 - Hx of Transfusion: None - Managed with none 6) Macular Degeneration - Noted EKG: Yes, 02/03/2025 Encounter Date: 02/03/25 ECG 12 lead Result Value Heart Rate 72 QRSD Interval 87 QT Interval 380 QTC Interval 417 P [place] 60 QRS [place] 34 T Wave [place] 46 NV Interval 201 Impression Sinus rhythm No previous ECG available for comparison Electronically Signed On 02-03-2025 15:06:39 EDT by Jun ANDERSON and EF:None on file CT Chest ([place]) 12/21/24): Pacer/Defib: No METS: >4 METS (Able to climb a flight of stairs with no chest pain or shortness of breath): Yes CLEARANCES: No Visit Type: Pre-Admission Testing Visit Labs Ordered: YES - PER PAT PROTOCOL Sleep Referral Ordered: NO - NEGATIVE SCREEN PER SLEEP REFERRAL PROTOCOL Total time spent (which include face to face and non face to face encounters) : 50 minutes Toxic drug monitoring/narrow therapeutic index drug monitoring : # Drug name : N/A # Route administered : N/A # Method of monitoring : N/A PAT Protocol referenced includes: 1. Anesthesia Lab Protocol Orders 2. Perioperative Cardiovascular Risk Assessment 3. Anesthesia Assessment 4. Pain Assessment and Acute Pain Service Consult (if appropriate) 5. Shower/Wash Order (for designated surgeries) 6. KATIE Screen and Sleep Clinic Referral (if appropriate) History Of Present Illness: 79 y.o. male who we are asked to see/evaluate by Dr. Contreras for pre-operative evaluation prior to ? 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 Contreras on 01/06/25: Juju Caceres is a 79 y.o. male referred by Dr. Garcia for mediastinal mass. Per note, pt had CT chest completed at [place] on 12/21/24 which demonstrated a large mass in the prevascular mediastinal space with encroachment on the pulmonary arteries and an associated moderate pleu (more content not included)... [facility] 01-21-2025 Discharge summary [facility] 01-21-2025 Note [facility] Medical Records Department [address] [place] [address] Discharge Summary 01/21/25 1559 MR#: [id number] Acct: [id number] Name: JUJU CACERES Rep #: [id number] : 1945 79 From: Michelet Donovan DO PCP: Dr. Michelet Good DO Status:DIS IN Location: [facility] [id number] Providers Date of Admission: 01/18/25 Date of Discharge: 01/21/25 Primary Care Physician: Dr. Michelet Good DO Consultations 01/18/25 12:08 Consult: Nephrology Routine Consulting Provider: Harry Gutierrez Reason for Consult: KO EMERGENT Consult: No MD Notified: Yes Date Notified: 01/18/25 Time Notified: 10:59 Method of Notification: Verbal Reason For Visit: ACUTE KIDNEY INJURY, HYPERCALCEMIA Diagnosis Discharge Diagnosis (1) Acute kidney injury: Status: Acute Code(s): N17.9 - Acute kidney failure, unspecified (2) Hypercalcemia: Status: Acute Code(s): E83.52 - Hypercalcemia (3) Recurrent left pleural effusion: Status: Acute Code(s): J90 - Pleural effusion, not elsewhere classified Plan 1. 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 #5 mild anemia-etiology unclear, CBC will be monitored Total clinical time spent by myself addressing the patient's medical issues, reviewing all of his data, and collaborating with patient's care team: 35 minutes Medications at Discharge Home Medications melatonin 3 mg tablet 3 mg PO QHS PRN sleep 01/19/25 Hospital Course Operations None Procedures None Summary of Care Provided Minutes Spent on Discharge: 32 Hospital Course: This 79-year-old white male was seen in the emergency room at [facility] with a chief complaint of shortness of breath with left-sided chest discomfort. The left-sided chest discomfort was worse when he takes in a deep breath. His shortness of breath is worse when he lies down. Patient was found recently to have a left pleural effusion which was drained and sent for pathology, there are predominance of T lymphocytes in the fluid suggesting that he may have a T-cell lymphoma, other studies have to be done on the fluid to confirm the presence of lymphoma. Labs were performed in the emergency room, BUN was abnormal at 51 and creatinine was abnormal at 3.72, calcium was elevated at 13.6. Patient's pulse ox on room air was 100%, chest x-ray showed a moderate left pleural effusion. Patient was admitted to [place] [address], he was seen in consultation by nephrology and given a dose of Zometa for his hypercalcemia, he was placed on IV fluids and his labs were monitored. Patient's creatinine decreased slightly during his hospital stay, CT of the abdomen and pelvis was obtained which showed a possible right pelvic mass, there was evidence of mild right hydronephrosis but it was not thought that this was causing his acute kidney injury. Patient underwent a thoracentesis with removal of fluid from his left hemithorax, this fluid was sent for cytology. On 01/21/2025, patient was seen and examined: On examination he appeared in good health and spirits. Vital signs as documented. Skin warm and dry and without overt rashes. Neck without JVD, neck was supple, trachea midline, thyroid was normal. Lungs clear bilaterally, normal air movement was noted. Heart exam notable for regular rhythm, normal sounds and absence of murmurs, rubs or gallops. Abdomen unremarkable and without evidence of organomegaly, masses, or abdominal aortic enlargement. Bowel sounds are present, abdomen is not distended. Extremities nonedematous, no cyanosis was noted, no clubbing was noted. Neuro: Cranial nerves II through XII are grossly intact, no focal motor deficits were noted, sensation to light touch and pinprick intact, motor exam 5/5 throughout. Psych: Patient is alert and oriented x3, he does not appear anxious or depressed, he does not appear agitated. Patient was felt to be stable for discharge home on 01/21/2025, I talked extensively with the patient's PCP by phone to go over the patient's hospital course and discuss patient care. Weight / BMI Weight Weight: 69.003 kg Body Mass Index (BMI) 24.5 ABG / Lab / Microbiology Data 01/20/25 05:45 (more content not included)... [facility] 01-21-2025 Radiology Diagnostic study note [facility] Imaging Services [address] [place] [address] Thoracentesis W US MR#: [id number] Acct: [id number] Name: JUJU CACERES Rep #: [id number] : 1945 M 79 From: Dashawn Mendoza MD PCP: Dr. Michelet Good, Status: ADM IN Study:Thoracentesis W US Date of Exam: 0 01/20/25 Exam# [id number] Ordering Dr: Michelet Love DO PROCEDURE: THORACENTESIS W US 01/21/2025 REASON FOR EXAM: LEFT PLEURAL EFFUSION TECHNIQUE: Diagnostic and therapeutic left THORACENTESIS W US COMPARISON: Abdomen and pelvis CT 01/18/2025. FINDINGS: Procedure: Following informed consent, and using standard sterile technique, an ultrasound-guided left thoracentesis was performed. 2% lidocaine local anesthesia was followed by placement of a 5 Serbian catheter intothe left pleural effusion. Approximately 1990 clear yellow fluid was successfully removed. No complication was encountered, in the patient left the department in good condition without significant complaint. US/Thoracentesis W US IMPRESSION: Successful diagnostic and therapeutic ultrasound-guided left thoracentesis. Laboratory results pending. Reading Location: [place] [address] CC: Dr. Michelet Good DO; Dr. 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 Michelet Good DO Status:ADM IN Discharge Instructions DC O2, CPAP, BIPAP needs Home O2 Discharge instructions: No Dressing / Incision Discharge Activity: Return to Normal Activity Weight Bearing Status: Full weight bearing Follow Up Care Test Results: Test results from this visit will be discussed in further detail at your follow-up appointment, if applicable. Discharge Plan Admission Admit Date/Time: 01/18/25 10:56 Primary Reason for Your Visit: Acute kidney injury, hypercalcemia, left pleural effusion Attending Provider: Michelet Donovan Primary Care Provider: Michelet Good Consulting Providers: Harry Gutierrez Discharge Orders/Prescriptions Prescriptions: No Action melatonin 3 mg tablet 3 mg PO QHS PRN (Reason: sleep) Referrals / Follow Up: Harry Gutierrez MD [Med Staff - Consulting] - See Referral Note (Follow up with their office as directed, by Friday of next week, call their office to schedule an appointment) Michelet Good DO [Primary Care Provider] - See Referral Note (In 2 weeks) Disposition Disposition (needs filled in before D/C Order can be placed): Home, Self Care 01/21/25 1559<Electronically signed by Michelet Donovan DO>Michelet Donovan DO CC: Dr. Harry Gutierrez MD; Dr. Michelet Good DO ~ Signed [facility] Work Phone: 1(969) 144-663308-22-2025 Hospital Discharge instructionsAdditional Instructions [facility]: [facility] Phone: 1(604) 851-507408-22-2025 Progress note Author iMchelet Donovan [facility] Note Date/Time January 21, 2025 7: 51am [facility] Medical Records Department [address] [place] [address] Progress Note - Hospitalist 01/20/255 MR#: [id number] Acct: [id number] Name: JUJU CACERES Rep #:[id number] : 1945 79 From: Michelet Donovan DO PCP: Dr. Michelet Good, DO Status:ADM IN Location: OR3 GE014-4 Reason for Visit Chief Complaint: Shortness of breath left-sided chest pain Subjective Subjective Patient was seen and examined today, his creatinine is a little bit improved today. Patient's calcium is normal, patient's hemoglobin is unchanged from yesterday. I talked briefly with nephrology about his care, labs will be repeated tomorrow and IV fluid administration will continue. I have elected to set the patient up for an ultrasound-guided thoracentesis on the left side tomorrow. Objective Data Objective Data Vital Signs: Vital Signs Temp Pulse Resp BP Pulse Ox O2 Del Method 98.7 F 94 18 158/87 H 98 Room Air 01/20/25 16:12 01/20/25 16:12 01/20/25 16:12 01/20/25 16:12 01/20/25 16:12 01/20/25 16:12 Oxygen Delivery Method Room Air Weight: 69.003 kg Body Mass Index (BMI) 24.5 Intake & Output: Intake and Output for Last 24 Hours 01/18/25 01/19/25 01/20/25 23:59 23:59 23:59 Intake Total 3561.25 / 3561.25 3877.08 / 3877.08 3280 / 3280 Output Total 300 / 300 Balance 3261.25 / 3261.25 3877.08 / 3877.08 3280 / 3280 Lab / Micro Data 01/20/25 05:45 01/21/25 05:26 Labs: Laboratory Results - last 24 hr 01/20/25 05:45: WBC 6.4, RBC 2.82 L, Hgb 8.2 L, Hct 25.6 L, MCV 90.8, MCH 29.1, MCHC 32.0, RDW Std Deviation 44.0 H, RDW Coeff of Martha 13.3, Plt Count 287, MPV 9.6, Immature Gran % (Auto) 0.600, Neut % (Auto) 76.0 H, Lymph % (Auto) 6.7 L, [place] % (Auto) 11.5 H, Eos % (Auto) 4.4, Baso % (Auto) 0.8, Absolute Neuts (auto) 4.9, Absolute Lymphs (auto) 0.43 L, Nucleated RBC % 0, Sodium 141, Potassium 4.0, Chloride 110 H, Carbon Dioxide 18.8 L, Anion Gap 12, BUN 50 H, Creatinine 3.54 H, Estim Creat Clear Calc 14.77 L, Est GFR (MDRD) Non-Af 17 L, BUN/Creatinine Ratio 14.2, Glucose 89, Calcium 10.9 Physical Exam Narrative alert, oriented x3, no apparent distress, average body habitus and healthy appearing General Appearance: cooperative, well kempt and well developed Orientation / Consciousness: awake, oriented to person, oriented to place and oriented to time HEENT normocephalic, head/scalp atraumatic, hearing grossly normal bilaterally and moist oral mucous membranes Eyes PERRL, EOMs intact bilaterally and conjunctivae normal Neck supple, no JVD, thyroid normal and no carotid bruits General: trachea midline Resp normal respiratory effort, no retractions and no use of accessory muscles Resp Narrative: Decreased breath sounds are noted over the left mid and lower lung field Auscultation: Negative for rales, rhonchi or wheezes Cardio regular rate, regular rhythm, S1 normal heart sound, S2 normal heart sound, no murmurs, no rub and no gallops GI normal to inspection, nondistended, normoactive bowel sounds, soft to palpation,non-tender and non-distended Extremity no clubbing, cyanosis or edema Skin no rashes or lesions noted General Skin Exam: no breakdown Neuro oriented x3, CN's II-XII intact bilaterally, moves all extremities, no focal motor deficits and no sensory deficits noted Sensorium / Orientation: awake and alert Speech: speech normal Psych affect normal Assessment & Plan Assessment/Plan (1) Hypercalcemia: PLAN: Plan 1. 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 #5 mild anemia-etiology unclear, CBC will be monitored Total clinical time spent by myself addressing the patient's medical issues, reviewing all of his data, and collaborating with patient's care team: 35 minutes Charges/Coding Visit Charges Inpatient E&M: 28475 Subs Hosp L2 01/21/25 6937 <Electronically signed by Michelet Donovan DO> Cosigner Signature (if applicable): CC: ~ Signed [facility] Work Phone: 1(778) 343-332308-22-2025 Progress note [facility] Medical Records Department [address] [place] [address] Progress Note - Hospitalist 01/20/25 1828 MR#: [id number] Acct: [id number] Name: JUJU CACERES Rep #:[id number] : 1945 79 From: Michelet Donovan DO PCP: Dr. Michelet Good, DO Status:ADM IN Location: [facility] CV030-5 Reason for Visit Chief Complaint: Shortness of breath left-sided chest pain Subjective Subjective Patient was seen and examined today, his creatinine is a little bit improved today. Patient's calcium is normal, patient's hemoglobin is unchanged from yesterday. I talked briefly with nephrology about his care, labs will be repeated tomorrow and IV fluid administration will continue. I have elected to set the patient up for an ultrasound-guided thoracentesis on the left side tomorrow. Objective Data Objective Data Vital Signs: Vital Signs Temp Pulse Resp BP Pulse Ox O2 Del Method 98.7 F 94 18 158/87 H 98 Room Air 01/20/25 16:12 01/20/25 16:12 01/20/25 16:12 01/20/25 16:12 01/20/25 16:12 01/20/25 16:12 Oxygen Delivery Method Room Air Weight: 69.003 kg Body Mass Index (BMI) 24.5 Intake & Output: Intake and Output for Last 24 Hours 01/18/25 01/19/25 01/20/25 23:59 23:59 23:59 Intake Total 3561.25 / 3561.25 3877.08 / 3877.08 3280 / 3280 Output Total 300 / 300 Balance 3261.25 / 3261.25 3877.08 / 3877.08 3280 / 3280 Lab / Micro Data 01/20/25 05:45 01/21/25 05:26 Labs: Laboratory Results - last 24 hr 01/20/25 05:45: WBC 6.4, RBC 2.82 L, Hgb 8.2 L, Hct 25.6 L, MCV 90.8, MCH 29.1, MCHC 32.0, RDW Std Deviation 44.0 H, RDW Coeff of Martha 13.3, Plt Count 287, MPV 9.6, Immature Gran % (Auto) 0.600, Neut % (Auto) 76.0 H, Lymph % (Auto) 6.7 L, [place] % (Auto) 11.5 H, Eos % (Auto) 4.4, Baso % (Auto) 0.8, Absolute Neuts (auto) 4.9, Absolute Lymphs (auto) 0.43 L, Nucleated RBC % 0, Sodium 141, Potassium 4.0, Chloride 110 H, Carbon Dioxide 18.8 L, Anion Gap 12, BUN 50 H, Creatinine 3.54 H, Estim Creat Clear Calc 14.77 L, Est GFR (MDRD) Non-Af 17 L, BUN/Creatinine Ratio 14.2, Glucose 89, Calcium 10.9 Physical Exam Narrative alert, oriented x3, no apparent distress, average body habitus and healthy appearing General Appearance: cooperative, well kempt and well developed Orientation / Consciousness: awake, oriented to person, oriented to place and oriented to time HEENT normocephalic, head/scalp atraumatic, hearing grossly normal bilaterally and moist oral mucous membranes Eyes PERRL, EOMs intact bilaterally and conjunctivae normal Neck supple, no JVD, thyroid normal and no carotid bruits General: trachea midline Resp normal respiratory effort, no retractions and no use of accessory muscles Resp Narrative: Decreased breath sounds are noted over the left mid and lower lung field Auscultation: Negative for rales, rhonchi or wheezes Cardio regular rate, regular rhythm, S1 normal heart sound, S2 normal heart sound, no murmurs, no rub and no gallops GI normal to inspection, nondistended, normoactive bowel sounds, soft to palpation,non-tender and non-distended Extremity no clubbing, cyanosis or edema Skin no rashes or lesions noted General Skin Exam: no breakdown Neuro oriented x3, CN's II-XII intact bilaterally, moves all extremities, no focal motor deficits and no sensory deficits noted Sensorium / Orientation: awake and alert Speech: speech normal Psych affect normal Assessment & Plan Assessment/Plan (1) Hypercalcemia: PLAN: Plan 1. 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 #5 mild anemia-etiology unclear, CBC will be monitored Total clinical time spent by myself addressing the patient's medical issues, reviewing all of his data, and collaborating with patient's care team: 35 minutes Charges/Coding Visit Charges Inpatient E&M: 77591 Subs Hosp L2 01/21/25 9875 Cosigner Signature (if applicable): CC: ~ Signed [facility]08-21-2025 Progress note Author Natalie Yen [facility] Note Date/Time January 20, 2025 6: 26pm [facility] Medical Records Department [address] [place] [address] Progress Note - Nephrology 01/20/25 1421 MR#: [id number] Acct: [id number] Name: JUJU CACERES Rep #:[id number] : 1945 79 From: Natalie alcantara [employer] PCP: Dr. Michelet Good, DO Status:ADM IN Location: MS3 [id number] Subjective Subjective Patient resting in bed. No complaints. at bedside. Objective Data Objective Data Vital Signs: Vital Signs Temp Pulse Resp BP Pulse Ox O2 Del Method 98.4 F 82 16 147/79 H 98 Room Air 01/20/25 07:59 01/20/25 07:59 01/20/25 07:59 01/20/25 07:59 01/20/25 07:59 01/20/25 09:07 Oxygen Delivery Method Room Air Weight: 69.003 kg Body Mass Index (BMI) 24.5 Intake & Output: Intake and Output for Last 24 Hours 01/18/25 01/19/25 01/20/25 23:59 23:59 23:59 Intake Total 3561.25 / 3561.25 3877.08 / 3877.08 1500 / 1500 Output Total 300 / 300 Balance 3261.25 / 3261.25 3877.08 / 3877.08 1500 / 1500 Lab / Micro Data 01/20/25 05:45 01/20/25 05:45 Labs: Laboratory Results - last 24 hr 01/18/25 12:14: Free Rayland LC, Quant 37.6 H, Free Lambda LC, Quant 47.6 H, Free [place]/Lambda Ratio 0.79 01/20/25 05:45: WBC 6.4, RBC 2.82 L, Hgb 8.2 L, Hct 25.6 L, MCV 90.8, MCH 29.1, MCHC 32.0, RDW Std Deviation 44.0 H, RDW Coeff of Martha 13.3, Plt Count 287, MPV 9.6, Immature Gran % (Auto) 0.600, Neut % (Auto) 76.0 H, Lymph % (Auto) 6.7 L, [place] % (Auto) 11.5 H, Eos % (Auto) 4.4, Baso % (Auto) 0.8, Absolute Neuts (auto) 4.9, Absolute Lymphs (auto) 0.43 L, Nucleated RBC % 0, Sodium 141, Potassium 4.0, Chloride 110 H, Carbon Dioxide 18.8 L, Anion Gap 12, BUN 50 H, Creatinine 3.54 H, Estim Creat Clear Calc 14.77 L, Est GFR (MDRD) Non-Af 17 L, BUN/Creatinine Ratio 14.2, Glucose 89, Calcium 10.9 Physical Exam Narrative Alert and oriented x 3, no apparent distress S1, S2, RRR Lungs sound clear anteriorly and posteriorly. On room air Abdomen soft, nontender, nondistended No edema Assessment & Plan Assessment/Plan (1) Acute kidney injury: (2) Hypercalcemia: (3) Recurrent left pleural effusion: PLAN: Plan Acute renal failure Hypercalcemia Previous serum protein electrophoresis positive. Rayland and lambda light chain assay pending. Previous history of pleural effusions, pleural mass. Supposed to see someone for pleural biopsy at [facility]. 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 Clonal studies have been sent at [facility], pending. Most likely has some form of lymphoma/lymphoproliferative disease/plasma cell disorder. CT abdomen and chest reviewed. There is a small right pelvic mass, not sure if this is what is causing right ureteral blockage but he has right-sided hydronephrosis. On personal image review, the hydronephrosis does not track allthe way into the pelvis so it might be a different problem. He also has a pleural-based mass. Pleural effusion, possible thoracentesis today or tomorrow. Acute renal failure predominantly mediated by hypercalcemia. Creatinine 3.7 on admission, creatinine 3.5 yesterday and today. Calcium 10.9 today. Albumin 3.0. UA no blood, 30 protein. Continue with IV fluids. No acute indication forrenal placement therapy. Has good urine output. Hypercalcemia. Better after Zometa. Nephrology plan discussed with Dr. Donovan. Assessment and plan reviewed with Dr. Gutierrez. 01/20/25 8369 <Electronically signed by Natalie RAYO> Cosigner Signature (if applicable): 01/20/25 6846 <Electronically signed by Harry Gutierrez MD> CC: ~ Signed [facility] Work Phone: 1(438) 561-287408-21-2025 Progress note [facility] Medical Records Department [address] [place] [address] Progress Note - Nephrology 01/20/25 1421 MR#: [id number] Acct: [id number] Name: JUJU CACERES Rep #:[id number] : 1945 79 From: Natalie alcantara [employer] PCP: Dr. Michelet Good, DO Status:ADM IN Location: [facility] [id number] Subjective Subjective Patient resting in bed. No complaints. at bedside. Objective Data Objective Data Vital Signs: Vital Signs Temp Pulse Resp BP Pulse Ox O2 Del Method 98.4 F 82 16 147/79 H 98 Room Air 01/20/25 07:59 01/20/25 07:59 01/20/25 07:59 01/20/25 07:59 01/20/25 07:59 01/20/25 09:07 Oxygen Delivery Method Room Air Weight: 69.003 kg Body Mass Index (BMI) 24.5 Intake & Output: Intake and Output for Last 24 Hours 01/18/25 01/19/25 01/20/25 23:59 23:59 23:59 Intake Total 3561.25 / 3561.25 3877.08 / 3877.08 1500 / 1500 Output Total 300 / 300 Balance 3261.25 / 3261.25 3877.08 / 3877.08 1500 / 1500 Lab / Micro Data 01/20/25 05:45 01/20/25 05:45 Labs: Laboratory Results - last 24 hr 01/18/25 12:14: Free Rayland LC, Quant 37.6 H, Free Lambda LC, Quant 47.6 H, Free Ray[place]/Lambda Ratio 0.79 01/20/25 05:45: WBC 6.4, RBC 2.82 L, Hgb 8.2 L, Hct 25.6 L, MCV 90.8, MCH 29.1, MCHC 32.0, RDW Std Deviation 44.0 H, RDW Coeff of Martha 13.3, Plt Count 287, MPV 9.6, Immature Gran % (Auto) 0.600, Neut % (Auto) 76.0 H, Lymph % (Auto) 6.7 L, [place] % (Auto) 11.5 H, Eos % (Auto) 4.4, Baso % (Auto) 0.8, Absolute Neuts (auto) 4.9, Absolute Lymphs (auto) 0.43 L, Nucleated RBC % 0, Sodium 141, Potassium 4.0, Chloride 110 H, Carbon Dioxide 18.8 L, Anion Gap 12, BUN 50 H, Creatinine 3.54 H, Estim Creat Clear Calc 14.77 L, Est GFR (MDRD) Non-Af 17 L, BUN/Creatinine Ratio 14.2, Glucose 89, Calcium 10.9 Physical Exam Narrative Alert and oriented x 3, no apparent distress S1, S2, RRR Lungs sound clear anteriorly and posteriorly. On room air Abdomen soft, nontender, nondistended No edema Assessment & Plan Assessment/Plan (1) Acute kidney injury: (2) Hypercalcemia: (3) Recurrent left pleural effusion: PLAN: Plan Acute renal failure Hypercalcemia Previous serum protein electrophoresis positive. Ray[place] and lambda light chain assay pending. Previous history of pleural effusions, pleural mass. Supposed to see someone for pleural biopsy at [facility]. 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 Clonal studies have been sent at [facility], pending. Most likely has some form of lymphoma/lymphoproliferative disease/plasma cell disorder. CT abdomen and chest reviewed. There is a small right pelvic mass, not sure if this is what is causing right ureteral blockage but he has right-sided hydronephrosis. On personal image review, the hydronephrosis does not track allthe way into the pelvis so it might be a different problem. He also has a pleural-based mass. Pleural effusion, possible thoracentesis today or tomorrow. Acute renal failure predominantly mediated by hypercalcemia. Creatinine 3.7 on admission, creatinine 3.5 yesterday and today. Calcium 10.9 today. Albumin 3.0. UA no blood, 30 protein. Continue with IV fluids. No acute indication forrenal placement therapy. Has good urine output. Hypercalcemia. Better after Zometa. Nephrology plan discussed with Dr. Donovan. Assessment and plan reviewed with Dr. Gutierrez. 01/20/25 [id number] Cosigner Signature (if applicable): 01/20/25 [id number] CC: ~ Signed [facility]08-21-2025 Discharge summary Author Kenrick Ott [facility] Note Date/Time January 20, 2025 7: 06am [facility] Medical Records Department [address] [place] [address] Emergency Department Summary 01/18/25 MR#: [id number] Acct: [id number] Name: JUJU CACERES Rep #:[id number] : 1945 79 From: Kenrick Benítez PCP: Dr. Michelet Good, DO Status:ADM IN Location: [place] [address]-1 HPI <Dr. Kenrick Ott DO - Last Filed: 01/18/25 08:14> History of Present Illness Chief Complaint: Shortness of Breath Informant: patient Onset/Context/Timing Onset: Days (2) Context: gradual Timing: Intermittent Quality: Positive for Orthopnea Worsened by: Lying flat Relieved by: - (Sitting up) Associated Symptoms Negative for cough, rhinorrhea, post nasal drip, ear pain, fever, sore throat, chills, sweats, clear sputum, white sputum, yellow sputum or green sputum Chest Pain: Positive for Tightness (Left chest) Narrative Narrative: Patient presents with shortness of breath that has been intermittent over the past 2 days. Patient states it is worse when he lays flat. Patient states it is better when he sits up. Patient states he had a recent thoracentesis where they drained 1 L of fluid off of his left lung. Patient admits to a mild cough. Patient denies any sputum production. Patient admits to some tightness over the left side of his chest. Patient denies any fevers or chills. Patient denies any sore throat or rhinorrhea. PE Risk Factors: Negative for Cancer, OCP + Smoking + > 35, Prior DVT or PE, Recent immobilization, Recent surgery or Recent travel [facility] <Dr. Kenrick Ott DO - Last Filed: 01/18/25 08:14> [facility] Medical History (Updated 01/18/25 @ 06:[address] Kenrick Ott DO) Pleural effusion Lung mass Macular degeneration Home Medications ?Medication ?Instructions ?Recorded ?Last Taken ?Type NK 01/18/25 Unknown History Allergy/AdvReac Type Severity Reaction Status Date / Time No Known Allergies Allergy Verified 01/18/25 05:18 Family History (Updated 12/27/24 @ 10:43 by Mirna Griffiths LPN) Brother Cancer throat Surgical History (Updated 01/18/25 @ 06:[address] 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 Kenrick Ott DO - Last Filed: 01/18/25 08:14> ROS ED Constitutional Constitutional ED: Denies chills or fever(s) Eyes Eyes: Denies blurry vision or change in vision ENT ENT ED: Denies rhinorrhea or sore throat Cardiovascular Cardiovascular: Reports chest pain; Denies palpitations Respiratory/Chest Respiratory/Chest: Reports dyspnea; Denies cough Gastrointestinal Gastrointestinal: Denies nausea or vomiting Genitourinary Genitourinary ED: Denies dysuria or hematuria Musculoskeletal Musculoskeletal: Denies back pain or neck pain Integumentary Denies abscess or rash Neurologic Neurologic: Reports weakness; Denies headache(s) Allergic/Immunologic Allergic/Immunologic ED: Denies mouth swelling or urticaria EXAM <Dr. Kenrick Ott, - Last Filed: 01/18/25 08:14> Physical Exam Const Vital Signs: 01/18/25 05:17 01/18/25 05:17 01/18/25 06:17 Temperature 98.9 F Temperature Source Oral Pulse Rate 115 H 90 Respiratory Rate 18 14 Respiratory Effort Short of Breath Respiratory Pattern Tachypnea Blood Pressure 170/90 H 142/79 H Blood Pressure Mean 116 100 Pulse Ox 96 98 Oxygen Delivery Method Room Air Room Air Room Air 01/18/25 07:00 01/18/25 07:12 01/18/25 08:26 Temperature 98 F Temperature Source Pulse Rate 85 89 92 Respiratory Rate 15 17 Respiratory Effort Respiratory Pattern Blood Pressure 142/77 H 161/71 H Blood Pressure Mean 98 101 Pulse Ox 99 97 Oxygen Delivery Method 01/18/25 09:04 01/18/25 10:02 Temperature Temperature Source Pulse Rate 84 75 Respiratory Rate 31 H 18 Respiratory Effort Respiratory Pattern Blood Pressure 154/86 H Blood Pressure Mean 108 Pulse Ox 96 100 Oxygen Delivery Method Positive well nourished and well developed Constitutional Narrative: BMI is 24.8. General Appearance ED: well developed and NAD HEENT Reports moist mucous membranes Neck supple, no meningeal signs and no JVD Resp normal respiratory effort and clear to auscultation bilaterally Cardio regular rate and regular rhythm GI non-tender and non-distended Palpation: soft Neuro oriented x3, CN's II-XII intact bilaterally and no sensory deficits noted [place] Coma Scale: document GCS findings Spontaneous Obeys Commands Oriented 15 Sensorium / Orientation: alert Speech: speech normal Motor Exam: strength 5/5 throughout Psych mental status grossly normal <Juan Manuel Gallegos MD - Last Filed: 01/18/25 11:33> Physical Exam Const Vital Signs: 01/18/25 05:17 01/18/25 05:17 01/18/25 06:17 Temperature 98.9 F Temperature Source Oral Pulse Rate 115 H 90 Respiratory Rate 18 14 Respiratory Effort Short of Breath Respiratory Pattern Tachypnea Blood Pressure 170/90 H 142/79 H Blood Pressure Mean 116 100 Pulse Ox 96 98 Oxygen Delivery Method Room Air Room Air Room Air 01/18/25 07:00 01/18/25 07:12 01/18/25 08:26 Temperature 98 F Temperature Source Pulse Rate 85 89 92 Respiratory Rate 15 17 Respiratory Effort Respiratory Pattern Blood Pressure 142/77 H 161/71 H Blood Pressure Mean 98 101 Pulse Ox 99 97 Oxygen Delivery Method 01/18/25 09:04 01/18/25 10:02 Temperature Temperature Source Pulse Rate 84 75 Respiratory Rate 31 H 18 Respiratory Effort Respiratory Pattern Blood Pressure 154/86 H Blood Pressure Mean 108 Pulse Ox 96 100 Oxygen Delivery Method Neuro Norbert Coma Scale: document GCS findings 15 MDM <Dr. Kenrick Ott DO - Last Filed: 01/18/25 08:14> MDM MDM Narrative Medical decision making narrative: Differential diagnosis includes pneumonia, bronchitis, pleural effusion, pneumothorax, lung mass, electrolyte abnormality, and anxiety. Chest x-ray willbe obtained to assess for pneumonia, bronchitis, pleural effusion, and pneumothorax. EKG will be obtained to assess for cardiac dysrhythmia and cardiac ischemia. CBC will be obtained to assess for leukocytosis and anemia. Basic metabolic profile will be obtained to assess for electrolyte abnormality and renal function. High- sensitivity troponin will be obtained to assess for cardiac ischemia. History & Record Review Additional record(s) reviewed:: Prior outpatient record and Prior labs Lab Data Attestation: I reviewed the patient's lab results. Lab results narrative: CBC was reviewed. Hemoglobin slightly low at 10.2 and hematocrit was 30.8. These are somewhat decreased from previous result. Basic metabolic profile was reviewed. BUN was elevated at 51 and creatinine was 3.72. These were increasedfrom previous result. Calcium was reviewed and was elevated at 13.6. High-sensitivity troponin was reviewed and it was slightly elevated at 31. Labs: Laboratory Results - last 24 hr 01/18/25 01/18/25 05:30 07:26 WBC 8.0 RBC 3.50 L Hgb 10.2 L Hct 30.8 L MCV 88.0 MCH 29.1 MCHC 33.1 RDW Std Deviation 42.5 RDW Coeff of Martha 13.2 Plt Count 380 MPV 10.2 Immature Gran % (Auto) 0.200 Neut % (Auto) 70.8 H Lymph % (Auto) 11.1 L [place] % (Auto) 12.3 H Eos % (Auto) 4.7 Baso % (Auto) 0.9 Absolute Neuts (auto) 5.7 Absolute Lymphs (auto) 0.89 Nucleated RBC % 0 Sodium 139 Potassium 4.0 Chloride 101 Carbon Dioxide 21.7 Anion Gap 15 BUN 51 H Creatinine 3.72 H Estim Creat Clear Calc 14.05 L Est GFR (MDRD) Non-Af 16 L BUN/Creatinine Ratio 13.6 Glucose 98 Calcium 13.6 H* Troponin T High Sens 31 H Troponin T Hi Sens 2 Hr 33 H Radiography Chest X-Ray - ED: 2 View, Read by ED Physician, Read by Radiologist and Left Effusion Diagnostic Testing: Clinical Impression(s) from Imaging Studies Chest X-Ray 01/18/25 06:20 IMPRESSION: There is a moderate size left pleural effusion. Reading Location: [facility] Renal Ultrasound 01/18/25 07:11 IMPRESSION: Mild dilation of the renal collecting system on the right. Reading Location: [id number] PA and lateral chest x-ray was obtained. There are 2 views. On my independent interpretation, lung jensen show a left pleural effusion. There is normal cardiac silhouette. Bony thorax is normal. There is no pneumothorax noted. Radiologist also interpreted the x-ray and agrees. EKG Initial EKG: Attestation: I personally reviewed and interpreted this EKG as follows: Interpretation: Sinus Tachycardia (104) and Non-Specific ST Changes Comments: EKG was obtained. On my independent interpretation, it showed asinus tachycardia with a rate of 104. NV interval, QRS interval, and QTc intervals were all normal. [place] was normal. There are nonspecific ST-T wave changes. Prior EKG tracings: not available for review Prior: No Prior Management Discussion w/another healthcare provider: Hospitalist Treatment and Re-Evaluation :: Patient was given aspirin here. Patient was advised of his findings. Patient was advised of the need for admission to the hospital. Patient is agreeable with this. Case was discussed with the hospitalist. He recommended giving the patient IV fluids and obtaining a renal ultrasound. He will be in to evaluate the patient for admission. Care of the patient will be turned over to the oncoming physician pending admission. <Juan Manuel Gallegos MD - Last Filed: 01/18/25 11:33> [facility] Lab Data Labs: Laboratory Results - last 24 hr 01/18/25 01/18/25 05:30 07:26 WBC 8.0 RBC 3.50 L Hgb 10.2 L Hct 30.8 L MCV 88.0 MCH 29.1 MCHC 33.1 RDW Std Deviation 42.5 RDW Coeff of Martha 13.2 Plt Count 380 MPV 10.2 Immature Gran % (Auto) 0.200 Neut % (Auto) 70.8 H Lymph % (Auto) 11.1 L [place] % (Auto) 12.3 H Eos % (Auto) 4.7 Baso % (Auto) 0.9 Absolute Neuts (auto) 5.7 Absolute Lymphs (auto) 0.89 Nucleated RBC % 0 Sodium 139 Potassium 4.0 Chloride 101 Carbon Dioxide 21.7 Anion Gap 15 BUN 51 H Creatinine 3.72 H Estim Creat Clear Calc 14.05 L Est GFR (MDRD) Non-Af 16 L BUN/Creatinine Ratio 13.6 Glucose 98 Calcium 13.6 H* Troponin T High Sens 31 H Troponin T Hi Sens 2 Hr 33 H Radiography Diagnostic Testing: Clinical Impression(s) from Imaging Studies Chest X-Ray 01/18/25 06:20 IMPRESSION: There is a moderate size left pleural effusion. Reading Location: [facility] Renal Ultrasound 01/18/25 07:11 IMPRESSION: Mild dilation of the renal collecting system on the right. Reading Location: [facility] Treatment and Re-Evaluation :: Patient was given aspirin here. Patient was advised of his findings. Patient was advised of the need for admission to the hospital. Patient is agreeable with this. Case was discussed with the hospitalist. He recommended giving the patient IV fluids and obtaining a renal ultrasound. He will be in to evaluate the patient for admission. Care of the patient will be turned over to the oncoming physician pending admission. Dr. Gallegos: Patient endorsed to me to discuss with the hospitalist after ultrasound/renal ultrasound performed. In discussion with Dr. Donovan, he wouldlike the patient to be a full admit to the general medical floor. He is in stable condition. Discharge Plan Triage Chief Complaint: Shortness of Breath ED Provider: Kenrick Ott Dx/Rx/DC Orders Clinical Impression: Acute kidney injury, Recurrent left pleural effusion, Dyspnea Prescriptions: No Action NK Primary Care Provider: Michelet Good Referrals: Michelet Good DO [Primary Care Provider] - Print Language: Hebrew What to do if you have Problems For any increased pain, shortness of breath, bleeding, nausea or vomiting, chestpain, or any unexpected problems, contact your Primary Care Provider. Call [facility] ([phone]) or report to the closest Emergency Room. Call 911 if necessary. 01/20/25 0706 <Electronically signed by Kenrick Ott DO> Cosigner Signature (if applicable): 01/18/25 1133 <Electronically signed by Juan Manuel Gallegos MD> CC: Dr. Michelet Good DO ~ Signed [facility] Work Phone: 1(110) 405-133908-21-2025 Discharge summary [facility] Medical Records Department [address] [place] [address] Emergency Department Summary 01/18/25 MR#: [id number] Acct: [id number] Name: JUJU CACERES Rep #:[id number] : 1945 79 From: Kenrick Benítez PCP: Dr. Michelet Good, DO Status:ADM IN Location: [id number] HPI History of Present Illness Chief Complaint: Shortness of Breath Informant: patient Onset/Context/Timing Onset: Days (2) Context: gradual Timing: Intermittent Quality: Positive for Orthopnea Worsened by: Lying flat Relieved by: - (Sitting up) Associated Symptoms Negative for cough, rhinorrhea, post nasal drip, ear pain, fever, sore throat, chills, sweats, clear sputum, white sputum, yellow sputum or green sputum Chest Pain: Positive for Tightness (Left chest) Narrative Narrative: Patient presents with shortness of breath that has been intermittent over the past 2 days. Patient states it is worse when he lays flat. Patient states it is better when he sits up. Patient states hehad a recent thoracentesis where they drained 1 L of fluid off of his left lung. Patient admits to a mild cough. Patient denies any sputum production. Patient admits to some tightness over the left side of his chest. Patient denies any fevers or chills. Patient denies any sore throat or rhinorrhea. PE Risk Factors: Negative for Cancer, OCP + Smoking + > 35, Prior DVT or PE, Recent immobilization, Recent surgery or Recent travel [facility] Medical History (Updated 01/18/25 @ 06:[address] Kenrick Ott DO) Pleural effusion Lung mass Macular degeneration Home Medications ?Medication ?Instructions ?Recorded ?Last Taken ?Type NK 01/18/25 Unknown History Allergy/AdvReac Type Severity Reaction Status Date / Time No Known Allergies Allergy Verified 01/18/25 05:18 Family History (Updated 12/27/24 @ 10:43 by Mirna Griffiths LPN) Brother Cancer throat Surgical History (Updated 01/18/25 @ 06:[address] 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 pets and animals: No history of recent travel: No Smoking Status: Never smoker alcohol intake: never substance use type: does not use caffeine: No what type of physical activity do you participate in: walking seatbelt use: always ROS ROS ED Constitutional Constitutional ED: Denies chills or fever(s) Eyes Eyes: Denies blurry vision or change in vision ENT ENT ED: Denies rhinorrhea or sore throat Cardiovascular Cardiovascular: Reports chest pain; Denies palpitations Respiratory/Chest Respiratory/Chest: Reports dyspnea; Denies cough Gastrointestinal Gastrointestinal: Denies nausea or vomiting Genitourinary Genitourinary ED: Denies dysuria or hematuria Musculoskeletal Musculoskeletal: Denies back pain or neck pain Integumentary Denies abscess or rash Neurologic Neurologic: Reports weakness; Denies headache(s) Allergic/Immunologic Allergic/Immunologic ED: Denies mouth swelling or urticaria EXAM Physical Exam Const Vital Signs: 01/18/25 05:17 01/18/25 05:17 01/18/25 06:17 Temperature 98.9 F Temperature Source Oral Pulse Rate 115 H 90 Respiratory Rate 18 14 Respiratory Effort Short of Breath Respiratory Pattern Tachypnea Blood Pressure 170/90 H 142/79 H Blood Pressure Mean 116 100 Pulse Ox 96 98 Oxygen Delivery Method Room Air Room Air Room Air 01/18/25 07:00 01/18/25 07:12 01/18/25 08:26 Temperature 98 F Temperature Source Pulse Rate 85 89 92 Respiratory Rate 15 17 Respiratory Effort Respiratory Pattern Blood Pressure 142/77 H 161/71 H Blood Pressure Mean 98 101 Pulse Ox 99 97 Oxygen Delivery Method 01/18/25 09:04 01/18/25 10:02 Temperature Temperature Source Pulse Rate 84 75 Respiratory Rate 31 H 18 Respiratory Effort Respiratory Pattern Blood Pressure 154/86 H Blood Pressure Mean 108 Pulse Ox 96 100 Oxygen Delivery Method Positive well nourished and well developed Constitutional Narrative: BMI is 24.8. General Appearance ED: well developed and NAD HEENT Reports moist mucous membranes Neck supple, no meningeal signs and no JVD Resp normal respiratory effort and clear to auscultation bilaterally Cardio regular rate and regular rhythm GI non-tender and non-distended Palpation: soft Neuro oriented x3, CN's II-XII intact bilaterally and no sensory deficits noted [place] Coma Scale: document GCS findings Spontaneous Obeys Commands Oriented 15 Sensorium / Orientation: alert Speech: speech normal Motor Exam: strength 5/5 throughout Psych mental status grossly normal Physical Exam Const Vital Signs: 01/18/25 05:17 01/18/25 05:17 01/18/25 06:17 Temperature 98.9 F Temperature Source Oral Pulse Rate 115 H 90 Respiratory Rate 18 14 Respiratory Effort Short of Breath Respiratory Pattern Tachypnea Blood Pressure 170/90 H 142/79 H Blood Pressure Mean 116 100 Pulse Ox 96 98 Oxygen Delivery Method Room Air Room Air Room Air 01/18/25 07:00 01/18/25 07:12 01/18/25 08:26 Temperature 98 F Temperature Source Pulse Rate 85 89 92 Respiratory Rate 15 17 Respiratory Effort Respiratory Pattern Blood Pressure 142/77 H 161/71 H Blood Pressure Mean 98 101 Pulse Ox 99 97 Oxygen Delivery Method 01/18/25 09:04 01/18/25 10:02 Temperature Temperature Source Pulse Rate 84 75 Respiratory Rate 31 H 18 Respiratory Effort Respiratory Pattern Blood Pressure 154/86 H Blood Pressure Mean 108 Pulse Ox 96 100 Oxygen Delivery Method Neuro Norbert Coma Scale: document GCS findings 15 MDM MDM MDM Narrative Medical decision making narrative: Differential diagnosis includes pneumonia, bronchitis, pleural effusion, pneumothorax, lung mass, electrolyte abnormality, and anxiety. Chest x-ray willbe obtained to assess for pneumonia, bronchitis, pleural effusion, and pneumothorax. EKG will be obtained to assess for cardiac dysrhythmia and cardiac ischemia. CBC will be obtained to assess for leukocytosis and anemia. Basic metabolic profile will be obtained to assess for electrolyte abnormality and renal function. High-sensitivity troponin will be obtained to assess for cardiac ischemia. History & Record Review Additional record(s) reviewed:: Prior outpatient record and Prior labs Lab Data Attestation: I reviewed the patient's lab results. Lab results narrative: CBC was reviewed. Hemoglobin slightly low at 10.2 and hematocrit was 30.8. These are somewhat decreased from previous result. Basic metabolic profile was reviewed. BUN was elevated at 51 and creatinine was 3.72. These were increasedfrom previous result. Calcium was reviewed and was elevated at 13.6. High-sensitivity troponin was reviewed and it was slightly elevated at 31. Labs: Laboratory Results - last 24 hr 01/18/25 01/18/25 05:30 07:26 WBC 8.0 RBC 3.50 L Hgb 10.2 L Hct 30.8 L MCV 88.0 MCH 29.1 MCHC 33.1 RDW Std Deviation 42.5 RDW Coeff of Martha 13.2 Plt Count 380 MPV 10.2 Immature Gran % (Auto) 0.200 Neut % (Auto) 70.8 H Lymph % (Auto) 11.1 L [place] % (Auto) 12.3 H Eos % (Auto) 4.7 Baso % (Auto) 0.9 Absolute Neuts (auto) 5.7 Absolute Lymphs (auto) 0.89 Nucleated RBC % 0 Sodium 139 Potassium 4.0 Chloride 101 Carbon Dioxide 21.7 Anion Gap 15 BUN 51 H Creatinine 3.72 H Estim Creat Clear Calc 14.05 L Est GFR (MDRD) Non-Af 16 L BUN/Creatinine Ratio 13.6 Glucose 98 Calcium 13.6 H* Troponin T High Sens 31 H Troponin T Hi Sens 2 Hr 33 H Radiography Chest X-Ray - ED: 2 View, Read by ED Physician, Read by Radiologist and Left Effusion Diagnostic Testing: Clinical Impression(s) from Imaging Studies Chest X-Ray 01/18/25 06:20 IMPRESSION: There is a moderate size left pleural effusion. Reading Location: [facility] Renal Ultrasound 01/18/25 07:11 IMPRESSION: Mild dilation of the renal collecting system on the right. Reading Location: [id number] PA and lateral chest x-ray was obtained. There are 2 views. On my independent interpretation, lung jensen show a left pleural effusion. There is normal cardiac silhouette. Bony thorax is normal. There is no pneumothorax noted. Radiologist also interpreted the x-ray and agrees. EKG Initial EKG: Attestation: I personally reviewed and interpreted this EKG as follows: Interpretation: Sinus Tachycardia (104) and Non-Specific ST Changes Comments: EKG was obtained. On my independent interpretation, it showed asinus tachycardia with a rate of 104. NV interval, QRS interval, and QTc intervals were all normal. [place] was normal. There arenonspecific ST-T wave changes. Prior EKG tracings: not available for review Prior: No Prior Management Discussion w/another healthcare provider: Hospitalist Treatment and Re-Evaluation :: Patient was given aspirin here. Patient was advised of his findings. Patient was advised of the need for admission to the hospital. Patient is agreeable with this. Case was discussed with the hospitalist. He recommended giving the patient IV fluids and obtaining a renal ultrasound. He will be in toevaluate the patient for admission. Care of the patient will be turned over to the oncoming physician pending admission. [facility] Lab Data Labs: Laboratory Results - last 24 hr 01/18/25 01/18/25 05:30 07:26 WBC 8.0 RBC 3.50 L Hgb 10.2 L Hct 30.8 L MCV 88.0 MCH 29.1 MCHC 33.1 RDW Std Deviation 42.5 RDW Coeff of Martha 13.2 Plt Count 380 MPV 10.2 Immature Gran % (Auto) 0.200 Neut % (Auto) 70.8 H Lymph % (Auto) 11.1 L [place] % (Auto) 12.3 H Eos % (Auto) 4.7 Baso % (Auto) 0.9 Absolute Neuts (auto) 5.7 Absolute Lymphs (auto) 0.89 Nucleated RBC % 0 Sodium 139 Potassium 4.0 Chloride 101 Carbon Dioxide 21.7 Anion Gap 15 BUN 51 H Creatinine 3.72 H Estim Creat Clear Calc 14.05 L Est GFR (MDRD) Non-Af 16 L BUN/Creatinine Ratio 13.6 Glucose 98 Calcium 13.6 H* Troponin T High Sens 31 H Troponin T Hi Sens 2 Hr 33 H Radiography Diagnostic Testing: Clinical Impression(s) from Imaging Studies Chest X-Ray 01/18/25 06:20 IMPRESSION: There is a moderate size left pleural effusion. Reading Location: [facility] Renal Ultrasound 01/18/25 07:11 IMPRESSION: Mild dilation of the renal collecting system on the right. Reading Location: [id number] Treatment and Re-Evaluation :: Patient was given aspirin here. Patient was advised of his findings. Patient was advised of the need for admission to the hospital. Patient is agreeable with this. Case was discussed with the hospitalist. He recommended giving the patient IV fluids and obtaining a renal ultrasound. He will be in toevaluate the patient for admission. Care of the patient will be turned over to the oncoming physician pending admission. Dr. Gallegos: Patient endorsed to me to discuss with the hospitalist after ultrasound/renal ultrasound performed. In discussion with Dr. Donovan, he wouldlike the patient to be a full admit to the general medical floor. He is in stable condition. Discharge Plan Triage Chief Complaint: Shortness of Breath ED Provider: Kenrick Ott Dx/Rx/DC Orders Clinical Impression: Acute kidney injury, Recurrent left pleural effusion, Dyspnea Prescriptions: No Action NK Primary Care Provider: Michelet Good Referrals: Michelet Good DO [Primary Care Provider] - Print Language: Hebrew What to do if you have Problems For any increased pain, shortness of breath, bleeding, nausea or vomiting, chestpain, or any unexpected problems, contact your Primary Care Provider. Call [facility] ([phone]) or report tothe closest Emergency Room. Call 911 if necessary. 01/20/25 07 Cosigner Signature (if applicable): 01/18/25 1133 CC: Dr. Michelet Good DO ~ Signed [facility]08-20-2025 Consult note Author Natalie Yne [facility] Note Date/Time January 19, 2025 6: 51pm [facility] Medical Records Department [address] [place] [address] Consultation - Nephrology 01/18/25 1134 MR#: [id number] Acct: [id number] Name: JUJU CACERES Rep #:[id number] : 1945 79 From: Natalie alcantara [employer] PCP: Dr. Michelet Good DO Status:ADM IN Location: [place] [address]-1 Assessment & Plan Assessment/Plan (1) Acute kidney injury: (2) Hypercalcemia: (3) Recurrent left pleural effusion: PLAN: Plan This is an 79-year-old male with no significant past medical history presenting to the emergency room with complaints of tightness of chest when trying to lay flat. Workup in the emergency room patient found to have serum creatinine 3.72,potassium 4.0, bicarb 21, calcium 13.6. Nephrology consulted in view of elevated creatinine. Baseline serum creatinine is unknown however patient did have lab work on December 02, 2024 creatinine 1.60, potassium and bicarb were normal and calcium was 10.7. Before that lab work in 2018 showed normal creatinine andcalcium. Renal ultrasound showed mild right hydronephrosis. Patient is to undergo noncontrast CT of abdomen and pelvis. Patient has been started on IV fluids and will receive a dose of Zometa for his hypercalcemia. Stop vitamin D. Will order kappa lambda light chains, PTH, vitamin D 1, 25 hydroxy and vitamin [id number]. 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 At this time there is no acute indication for renal placement therapy, volume status appears near euvolemic but patient does have room for IV fluids. Potassium and bicarb normal. Few weeks ago patient did undergo thoracentesis and fluid for cytology resulted in lymphocytosis with atypical features suspicious for lymphoproliferative disorder. Further workup is underway. Nephrology plan was discussed with patient and his , questions were answered. Further orders forthcoming as hospitalization evolves, thank youfor allowing us to participate in the care of Mr. Caceres. Assessment and plan reviewed Dr. Gutierrez HPI Consult Data Date of Consult: 01/18/25 HPI Narrative HPI Narrative: JUJU CACERES, is a 79 M with no significant past medical history who presented to the emergency room this morning with complaints of feeling tightness in chest when trying to lay flat. Workup in the emergency room included lab work: White count normal, serum creatinine 3.72, potassium 4.0, bicarb 21, calcium 13.6, troponin 31. Chest x-ray moderate left pleural effusion. Renal ultrasound right kidney 11.1 cm, left kidney 12 cm, mild hydronephrosis on the right, left is normal. Nephrology consulted in view of elevated creatinine. Patient was seen and evaluated this morning in the emergency room. Patient reports he has not been seen by nephrology. Patient reports some months ago he noted unintentional weight loss therefore followed upwith PCP however before then he had not been having routine PCP appointments. Patient does not take any prescribed medications. Patient states he takes eye vitamin daily and vitamin D 5000 units daily. Patient states he had been havinggeneralized pain and took Aleve last week but does not take this routinely or daily. Does not take Tylenol. Patient does state he noticed his skin to be itchy and noted decrease in taste. Patient states he has had about a 20 pound unintentional weight loss. No vomiting, no nausea, does not take Tums or calcium. Patient denies any hematuria, dysuria, nocturia, urgency or hesitancy. [facility] Medical History (Updated 01/18/25 @ 11:40 by Natalie Yen NP-C) Pleural effusion Lung mass Macular degeneration Home Medications ?Medication ?Instructions ?Recorded ?Last Taken ?Type NK 01/18/25 Unknown History Allergy/AdvReac Type Severity Reaction Status Date / Time No Known Allergies Allergy Verified 01/18/25 05:18 Family History (Updated 12/27/24 @ 10:43 by Mirna Griffiths LPN) Brother Cancer throat Surgical History (Updated 01/18/25 @ 06:[address] 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 On room air Abdomen soft, nontender, nondistended No edema Lab / Micro Data 01/18/25 05:30 01/18/25 05:30 Labs: Laboratory Results - last 24 hr 01/18/25 05:30: WBC 8.0, RBC 3.50 L, Hgb 10.2 L, Hct 30.8 L, MCV 88.0, MCH 29.1,MCHC 33.1, RDW Std Deviation 42.5, RDW Coeff of Martha 13.2, Plt Count 380, MPV 10.2, Immature Gran % (Auto) 0.200, Neut % (Auto) 70.8 H, Lymph % (Auto) 11.1 L,[place] % (Auto) 12.3 H, Eos % (Auto) 4.7, Baso % (Auto) 0.9, Absolute Neuts (auto)5.7, Absolute Lymphs (auto) 0.89, Nucleated RBC % 0, Sodium 139, Potassium 4.0, Chloride 101, Carbon Dioxide 21.7, Anion Gap 15, BUN 51 H, Creatinine 3.72 H, Estim Creat Clear Calc 14.05 L, Est GFR (MDRD) Non-Af 16 L, BUN/Creatinine Ratio 13.6, Glucose 98, Calcium 13.6 H*, Troponin T High Sens 31 H 01/18/25 07:26: Troponin T Hi Sens 2 Hr 33 H Imaging Radiology Impression Chest X-Ray 01/18/25 06:20 IMPRESSION: There is a moderate size left pleural effusion. [facility] 01/18/25 07:11 IMPRESSION: Mild dilation of the renal collecting system on the right. Reading Location: [facility] 01/18/25 1157 <Electronically signed by Natalie RAYO> Cosigner Signature (if applicable): 01/19/25 1851 <Electronically signed by Harry Gutierrez MD> CC: Dr. Michelet Good, DO~ Signed [facility] Work Phone: 1(519) 950-813508-20-2025 Progress note Author Harry Gutierrez [facility] Note Date/Time January 19, 2025 6: 45pm [facility] Medical Records Department [address] [place] [address] Progress Note - Nephrology 01/19/25 1842 MR#: [id number] Acct: [id number] Name: JUJU CACERES Rep #:[id number] : 1945 79 From: Harry lovell MD PCP: Dr. Michelet Good, DO Status:ADM IN Location: [facility] [id number] Subjective Subjective no new complaints Objective Data Objective Data Vital Signs: Vital Signs Temp Pulse Resp BP Pulse Ox O2 Del Method 97.9 F 97 18 148/73 H 97 Room Air 01/19/25 14:29 01/19/25 14:29 01/19/25 14:29 01/19/25 14:29 01/19/25 14:29 01/19/25 14:29 Oxygen Delivery Method Room Air Weight: 69.003 kg Body Mass Index (BMI) 24.5 Intake & Output: Intake and Output for Last 24 Hours 01/17/25 01/18/25 01/19/25 23:59 23:59 23:59 Intake Total 3561.25 / 3561.25 2483.33 / 2483.33 Output Total 300 / 300 Balance 3261.25 / 3261.25 2483.33 / 2483.33 Lab / Micro Data 01/19/25 05:45 01/19/25 05:45 Labs: Laboratory Results - last 24 hr 01/18/25 12:14: Free Rayland LC, Quant 37.6 H, Free Lambda LC, Quant 47.6 H, Free [place]/Lambda Ratio 0.79 01/18/25 19:45: Urine Color Straw, Urine Clarity Sl. Cloudy, Urine pH 6.5, Ur Specific [place] 1.015, Urine Protein 30 H, Urine Glucose (UA) Normal, Urine Ketones Negative, Urine Occult Blood 10 H, Urine Nitrite Negative, Urine Bilirubin Negative, Urine Urobilinogen Normal, Ur Leukocyte Esterase Negative, Urine RBC 0 SEEN, Urine WBC 0-5 SEEN, Ur Squamous Epith Cells 0 SEEN, Urine Bacteria 0 SEEN, Urine Mucus 0 SEEN 01/19/25 05:45: WBC 6.0, RBC 2.82 L, Hgb 8.3 L, Hct 25.6 L, MCV 90.8, MCH 29.4, MCHC 32.4, RDW Std Deviation 44.0 H, RDW Coeff of Martha 13.2, Plt Count 313, MPV 10.2, Immature Gran % (Auto) 0.300, Neut % (Auto) 77.5 H, Lymph % (Auto) 6.6 L, [place] % (Auto) 10.8 H, Eos % (Auto) 4.3, Baso % (Auto) 0.5, Absolute Neuts (auto)4.7, Absolute Lymphs (auto) 0.40 L, Nucleated RBC % 0, Sodium 141, Potassium 4.2, Chloride 108, Carbon Dioxide 19.6 L, Anion Gap 13, BUN 50 H, Creatinine 3.51 H, Estim Creat Clear Calc 14.89 L, Est GFR (MDRD) Non-Af 17 L, BUN/Creatinine Ratio 14.2, Glucose 80, Calcium 11.8 H, Albumin 3.0 L Physical Exam Narrative Alert and oriented x 3, no apparent distress S1, S2, RRR Lungs sound clear anteriorly and posteriorly. On room air Abdomen soft, nontender, nondistended No edema Assessment & Plan Assessment/Plan (1) Acute kidney injury: (2) Hypercalcemia: (3) Recurrent left pleural effusion: PLAN: Plan Acute renal failure Hypercalcemia Previous serum protein electrophoresis positive. [place] and lambda light chain assay pending. Previous history of pleural effusions, pleural mass. Supposed to see someone for pleural biopsy at [facility]. 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 Clonal studies have been sent at [facility], pending. Most likely has some form of lymphoma/lymphoproliferative disease/plasma cell disorder. CT abdomen and chest reviewed. There is a small right pelvic mass, not sure if this is what is causing right ureteral blockage but he has right-sided hydronephrosis. On personal image review, the hydronephrosis does not track allthe way into the pelvis so it might be a different problem. He also has a pleural-based mass. Pleural effusion. Acute renal failure predominantly mediated by hypercalcemia. Creatinine is better. Hypercalcemia. Better after Zometa. He may need urology evaluation as outpatient for hydronephrosis. Discussed withhospitalist. Discussed with family at bedside. 01/19/251844 <Electronically signed by Harry Gutierrez MD> Cosigner Signature (if applicable): CC: ~ Signed [facility] Work Phone: 1(336) 261-767208-20-2025 Progress note Author Michelet Donovan [facility] Note Date/Time January 19, 2025 6: 04pm [facility] Medical Records Department [address] [place] [address] Progress Note - Hospitalist 01/19/25 1801 MR#: [id number] Acct: [id number] Name: JUJU CACERES Rep #:[id number] : 1945 79 From: Michelet Donovan DO PCP: Dr. Michelet Good, DO Status:ADM IN Location: [place] [address]-1 Reason for Visit Chief Complaint: Shortness of breath left-sided chest pain Subjective Subjective Patient was seen and examined today, his hemoglobin dropped to 8.3 this morning,creatinine was slightly improved at 3.51 and BUN was 50. Patient's calcium level was 11.8, he remains on IV fluids. CT of the abdomen and pelvis question a right pelvic mass, this could be impeding the patient's ureter on that side. Currently there is not urology coverage here, I do not think this is impacting his rising creatinine. I discussed this with nephrology Objective Data Objective Data Vital Signs: Vital Signs Temp Pulse Resp BP Pulse Ox O2 Del Method 97.9 F 97 18 148/73 H 97 Room Air 01/19/25 14:29 01/19/25 14:29 01/19/25 14:29 01/19/25 14:29 01/19/25 14:29 01/19/25 14:29 Oxygen Delivery Method Room Air Weight: 69.003 kg Body Mass Index (BMI) 24.5 Intake & Output: Intake and Output for Last 24 Hours 01/17/25 01/18/25 01/19/25 23:59 23:59 23:59 Intake Total 3561.25 / 3561.25 2483.33 / 2483.33 Output Total 300 / 300 Balance 3261.25 / 3261.25 2483.33 / 2483.33 Lab / Micro Data 01/19/25 05:45 01/19/25 05:45 Labs: Laboratory Results - last 24 hr 01/18/25 19:45: Urine Color Straw, Urine Clarity Sl. Cloudy, Urine pH 6.5, Ur Specific [place] 1.015, Urine Protein 30 H, Urine Glucose (UA) Normal, Urine Ketones Negative, Urine Occult Blood 10 H, Urine Nitrite Negative, Urine Bilirubin Negative, Urine Urobilinogen Normal, Ur Leukocyte Esterase Negative, Urine RBC 0 SEEN, Urine WBC 0-5 SEEN, Ur Squamous Epith Cells 0 SEEN, Urine Bacteria 0 SEEN, Urine Mucus 0 SEEN 01/19/25 05:45: WBC 6.0, RBC 2.82 L, Hgb 8.3 L, Hct 25.6 L, MCV 90.8, MCH 29.4, MCHC 32.4, RDW Std Deviation 44.0 H, RDW Coeff of Martha 13.2, Plt Count 313, MPV 10.2, Immature Gran % (Auto) 0.300, Neut % (Auto) 77.5 H, Lymph % (Auto) 6.6 L, [place] % (Auto) 10.8 H, Eos % (Auto) 4.3, Baso % (Auto) 0.5, Absolute Neuts (auto)4.7, Absolute Lymphs (auto) 0.40 L, Nucleated RBC % 0, Sodium 141, Potassium 4.2, Chloride 108, Carbon Dioxide 19.6 L, Anion Gap 13, BUN 50 H, Creatinine 3.51 H, Estim Creat Clear Calc 14.89 L, Est GFR (MDRD) Non-Af 17 L, BUN/Creatinine Ratio 14.2, Glucose 80, Calcium 11.8 H, Albumin 3.0 L Physical Exam Narrative alert, oriented x3, no apparent distress, average body habitus and healthy appearing General Appearance: cooperative, well kempt and well developed Orientation / Consciousness: awake, oriented to person, oriented to place and oriented to time HEENT normocephalic, head/scalp atraumatic, hearing grossly normal bilaterally and moist oral mucous membranes Eyes PERRL, EOMs intact bilaterally and conjunctivae normal Neck supple, no JVD, thyroid normal and no carotid bruits General: trachea midline Resp normal respiratory effort, no retractions and no use of accessory muscles Resp Narrative: Decreased breath sounds are noted over the left mid and lower lung field Auscultation: Negative for rales, rhonchi or wheezes Cardio regular rate, regular rhythm, S1 normal heart sound, S2 normal heart sound, no murmurs, no rub and no gallops GI normal to inspection, nondistended, normoactive bowel sounds, soft to palpation,non-tender and non-distended Extremity no clubbing, cyanosis or edema Skin no rashes or lesions noted General Skin Exam: no breakdown Neuro oriented x3, CN's II-XII intact bilaterally, moves all extremities, no focal motor deficits and no sensory deficits noted Sensorium / Orientation: awake and alert Speech: speech normal Psych affect normal Assessment & Plan Assessment/Plan (1) Hypercalcemia: PLAN: Plan 1. Acute kidney injury-patient remains on IV fluid administration at this time,BMP will be repeated tomorrow #2 hypercalcemia possibly secondary to neoplasm-patient was given IV Zometa and calcium level will be rechecked tomorrow #3 left pleural effusion-patient appears to be oxygenating well on room air, it may be necessary to perform another thoracentesis before the patient is discharge due to the reaccumulation of fluid. 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 #5 mild anemia-etiology unclear, CBC will be monitored Total clinical time spent by myself addressing the patient's medical issues, reviewing all of his data, and collaborating with patient's care team: 35 minutes Charges/Coding Visit Charges Inpatient E&M: 27146 Subs Hosp L2 01/19/25 1804 <Electronically signed by Michelet Donovan DO> Cosigner Signature (if applicable): CC: ~ Signed [facility] Work Phone: 1(506) 481-501408-20-2025 Consult note [facility] Medical Records Department [address] [place] [address] Consultation - Nephrology 01/18/25 1134 MR#: [id number] Acct: [id number] Name: JUJU CACERES Rep #:[id number] : 1945 79 From: Natalie alcantara [employer] PCP: Dr. Michelet Good, DO Status:ADM IN Location: [place] [address]-1 Assessment & Plan Assessment/Plan (1) Acute kidney injury: (2) Hypercalcemia: (3) Recurrent left pleural effusion: PLAN: Plan This is an 79-year-old male with no significant past medical history presenting to the emergency room with complaints of tightness of chest when trying to lay flat. Workup in the emergency room patient found to have serum creatinine 3.72,potassium 4.0, bicarb 21, calcium 13.6. Nephrology consulted in view of elevated creatinine. Baseline serum creatinine is unknown however patient did have lab work on December 02, 2024 creatinine 1.60, potassium and bicarb were normal and calcium was 10.7. Before that lab work in 2018 showed normal creatinine andcalcium. Renal ultrasound showed mild right hydronephrosis. Patient is to undergo noncontrast CT of abdomen and pelvis. Patient has been started on IV fl uids and will receive a dose of Zometa for his hypercalcemia. Stop vitamin D. Will order kappa lambda light chains, PTH, vitamin D 1, 25 hydroxy and vitamin [id number]. 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 At this time there is no acute indication for renal placement therapy, volume status appears near euvolemic but patient does have room for IV fluids. Potassium and bicarb normal. Few weeks ago patient did undergo thoracentesis and fluid for cytology resulted in lymphocytosis with atypical features suspicious for lymphoproliferative disorder. Further workup is underway. Nephrology plan was discussed with patient and his , questions were answered. Further orders forthcoming as hospitalization evolves, thank youfor allowing us to participate in the care of Mr. Caceres. Assessment and plan reviewed Dr. Gutierrez HPI Consult Data Date of Consult: 01/18/25 HPI Narrative HPI Narrative: JUJU CACERES, is a 79 M with no significant past medical history who presented to the emergencyroom this morning with complaints of feeling tightness in chest when trying to lay flat. Workup in the emergency room included lab work: White count normal, serum creatinine 3.72, potassium 4.0, bicarb 21, calcium 13.6, troponin 31. Chest x-ray moderate left pleural effusion. Renal ultrasound rightkidney 11.1 cm, left kidney 12 cm, mild hydronephrosis on the right, left is normal. Nephrology consulted in view of elevated creatinine. Patient was seen and evaluated this morning in the emergency room. Patient reports he has not been seen by nephrology. Patient reports some months ago he noted unintentional weight loss therefore followed upwith PCP however before then he had not been having routine PCP appointments. Patient does not take any prescribed medications. Patient states he takes eye vitamin daily and vitamin D 5000 units daily. Patient states he had been havinggeneralized pain and took Aleve last week but does not take this routinely or daily. Does not take Tylenol. Patient does state he noticed his skin to be itchy and noted decrease in taste. Patient states he has had abouta 20 pound unintentional weight loss. No vomiting, no nausea, does not take Tums or calcium. Patient denies any hematuria, dysuria, nocturia, urgency or hesitancy. [facility] Medical History (Updated 01/18/25 @ 11:40 by GIRMA Adams) Pleural effusion Lung mass Macular degeneration Home Medications ?Medication ?Instructions ?Recorded ?Last Taken ?Type NK 01/18/25 Unknown History Allergy/AdvReac Type Severity Reaction Status Date / Time No Known Allergies Allergy Verified 01/18/25 05:18 Family History (Updated 12/27/24 @ 10:43 by Mirna Griffiths LPN) Brother Cancer throat Surgical History (Updated 01/18/25 @ 06:[address] 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 On room air Abdomen soft, nontender, nondistended No edema Lab / Micro Data 01/18/25 05:30 01/18/25 05:30 Labs: Laboratory Results - last 24 hr 01/18/25 05:30: WBC 8.0, RBC 3.50 L, Hgb 10.2 L, Hct 30.8 L, MCV 88.0, MCH 29.1,MCHC 33.1, RDW Std Deviation 42.5, RDW Coeff of Martha 13.2, Plt Count 380, MPV 10.2, Immature Gran % (Auto) 0.200, Neut %(Auto) 70.8 H, Lymph % (Auto) 11.1 L,[place] % (Auto) 12.3 H, Eos % (Auto) 4.7, Baso % (Auto) 0.9, Absolute Neuts (auto)5.7, Absolute Lymphs (auto) 0.89, Nucleated RBC % 0, Sodium 139, Potassium 4.0, Chloride 101, Carbon Dioxide 21.7, Anion Gap 15, BUN 51 H, Creatinine 3.72 H, Estim Creat Clear Calc 14.05 L, Est GFR (MDRD) Non-Af 16 L, BUN/Creatinine Ratio 13.6, Glucose 98, Calcium 13.6 H*, TroponinT High Sens 31 H 01/18/25 07:26: Troponin T Hi Sens 2 Hr 33 H Imaging Radiology Impression Chest X-Ray 01/18/25 06:20 IMPRESSION: There is a moderate size left pleural effusion. Reading Location: [facility] Renal Ultrasound 01/18/25 07:11 IMPRESSION: Mild dilation of the renal collecting system on the right. Reading Location: [id number] 01/18/25 1157 Cosigner Signature (if applicable): 01/19/25 1851 CC: Dr. Michelet Good, DO~ Signed [facility]08-20-2025 Progress note [facility] Medical Records Department [address] [place] [address] Progress Note - Nephrology 01/19/25 1842 MR#: [id number] Acct: [id number] Name: JUJU CACERES Rep #:[id number] : 1945 79 From: Harry lovell MD PCP: Dr. Michelet Good, Status:ADM IN [id number] Subjective Subjective no new complaints Objective Data Objective Data Vital Signs: Vital Signs Temp Pulse Resp BP Pulse Ox O2 Del Method 97.9 F 97 18 148/73 H 97 Room Air 01/19/25 14:29 01/19/25 14:29 01/19/25 14:29 01/19/25 14:29 01/19/25 14:29 01/19/25 14:29 Oxygen Delivery Method Room Air Weight: 69.003 kg Body Mass Index (BMI) 24.5 Intake & Output: Intake and Output for Last 24 Hours 01/17/25 01/18/25 01/19/25 23:59 23:59 23:59 Intake Total 3561.25 / 3561.25 2483.33 / 2483.33 Output Total 300 / 300 Balance 3261.25 / 3261.25 2483.33 / 2483.33 Lab / Micro Data 01/19/25 05:45 01/19/25 05:45 Labs: Laboratory Results - last 24 hr 01/18/25 12:14: Free Ray[place] LC, Quant 37.6 H, Free Lambda LC, Quant 47.6 H, Free [place]/Lambda Ratio 0.79 01/18/25 19:45: Urine Color Straw, Urine Clarity Sl. Cloudy, Urine pH 6.5, Ur Specific [place] 1.015, Urine Protein 30 H, Urine Glucose (UA) Normal, Urine Ketones Negative, Urine Occult Blood 10 H, Urine Nitrite Negative, Urine Bilirubin Negative, Urine Urobilinogen Normal, Ur Leukocyte Esterase Negative, Urine RBC 0 SEEN, Urine WBC 0-5 SEEN, Ur Squamous Epith Cells 0 SEEN, Urine Bacteria 0 SEEN,Urine Mucus 0 SEEN 01/19/25 05:45: WBC 6.0, RBC 2.82 L, Hgb 8.3 L, Hct 25.6 L, MCV 90.8, MCH 29.4, MCHC 32.4, RDW Std Deviation 44.0 H, RDW Coeff of Martha 13.2, Plt Count 313, MPV 10.2, Immature Gran % (Auto) 0.300, Neut% (Auto) 77.5 H, Lymph % (Auto) 6.6 L, [place] % (Auto) 10.8 H, Eos % (Auto) 4.3, Baso % (Auto) 0.5, Absolute Neuts (auto)4.7, Absolute Lymphs (auto) 0.40 L, Nucleated RBC % 0, Sodium 141, Potassium 4.2, Chloride 108, Carbon Dioxide 19.6 L, Anion Gap 13, BUN 50 H, Creatinine 3.51 H, Estim Creat Clear Calc 14.89 L, Est GFR (MDRD) Non-Af 17 L, BUN/Creatinine Ratio 14.2, Glucose 80, Calcium 11.8 H, Albumin 3.0 L Physical Exam Narrative Alert and oriented x 3, no apparent distress S1, S2, RRR Lungs sound clear anteriorly and posteriorly. On room air Abdomen soft, nontender, nondistended No edema Assessment & Plan Assessment/Plan (1) Acute kidney injury: (2) Hypercalcemia: (3) Recurrent left pleural effusion: PLAN: Plan Acute renal failure Hypercalcemia Previous serum protein electrophoresis positive. [place] and lambda light chain assay pending. Previous history of pleural effusions, pleural mass. Supposed to see someone for pleural biopsy at [facility]. 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 Clonal studies have been sent at [facility], pending. Most likely has some form of lymphoma/lymphoproliferative disease/plasma cell disorder. CT abdomen and chest reviewed. There is a small right pelvic mass, not sure if this is what is causing right ureteral blockage but he has right-sided hydronephrosis. On personal image review, the hydronephrosis does not track allthe way into the pelvis so it might be a different problem. He also has a pleural-based mass. Pleural effusion. Acute renal failure predominantly mediated by hypercalcemia. Creatinine is better. Hypercalcemia. Better after Zometa. He may need urology evaluation as outpatient for hydronephrosis. Discussed withhospitalist. Discussed with family at bedside. 01/19/25 1845 Cosigner Signature (if applicable): CC: ~ Signed [facility]08-20-2025 Progress note [facility] Medical Records Department [address] [place] [address] Progress Note - Hospitalist 01/19/25 1801 MR#: [id number] Acct: [id number] Name: JUJU CACERES Rep #:[id number] : 1945 79 From: Michelet Donovan DO PCP: Dr. Michelet Good, DO Status:ADM IN Location: [facility] [id number] Reason for Visit Chief Complaint: Shortness of breath left-sided chest pain Subjective Subjective Patient was seen and examined today, his hemoglobin dropped to 8.3 this morning,creatinine was slightly improved at 3.51 and BUN was 50. Patient's calcium level was 11.8, he remains on IV fluids. CT of the abdomen and pelvis question a right pelvic mass, this could be impeding the patient's ureter on that side. Currently there is not urology coverage here, I do not think this is impacting his rising creatinine. I discussed this with nephrology Objective Data Objective Data Vital Signs: Vital Signs Temp Pulse Resp BP Pulse Ox O2 Del Method 97.9 F 97 18 148/73 H 97 Room Air 01/19/25 14:29 01/19/25 14:29 01/19/25 14:29 01/19/25 14:29 01/19/25 14:29 01/19/25 14:29 Oxygen Delivery Method Room Air Weight: 69.003 kg Body Mass Index (BMI) 24.5 Intake & Output: Intake and Output for Last 24 Hours 01/17/25 01/18/25 01/19/25 23:59 23:59 23:59 Intake Total 3561.25 / 3561.25 2483.33 / 2483.33 Output Total 300 / 300 Balance 3261.25 / 3261.25 2483.33 / 2483.33 Lab / Micro Data 01/19/25 05:45 01/19/25 05:45 Labs: Laboratory Results - last 24 hr 01/18/25 19:45: Urine Color Straw, Urine Clarity Sl. Cloudy, Urine pH 6.5, Ur Specific [place] 1.015, Urine Protein 30 H, Urine Glucose (UA) Normal, Urine Ketones Negative, Urine Occult Blood 10 H, Urine Nitrite Negative, Urine Bilirubin Negative, Urine Urobilinogen Normal, Ur Leukocyte Esterase Negative, Urine RBC 0 SEEN, Urine WBC 0-5 SEEN, Ur Squamous Epith Cells 0 SEEN, Urine Bacteria 0 SEEN,Urine Mucus 0 SEEN 01/19/25 05:45: WBC 6.0, RBC 2.82 L, Hgb 8.3 L, Hct 25.6 L, MCV 90.8, MCH 29.4, MCHC 32.4, RDW Std Deviation 44.0 H, RDW Coeff of Martha 13.2, Plt Count 313, MPV 10.2, Immature Gran % (Auto) 0.300, Neut% (Auto) 77.5 H, Lymph % (Auto) 6.6 L, [place] % (Auto) 10.8 H, Eos % (Auto) 4.3, Baso % (Auto) 0.5, Absolute Neuts (auto)4.7, Absolute Lymphs (auto) 0.40 L, Nucleated RBC % 0, Sodium 141, Potassium 4.2, Chloride 108, Carbon Dioxide 19.6 L, Anion Gap 13, BUN 50 H, Creatinine 3.51 H, Estim Creat Clear Calc 14.89 L, Est GFR (MDRD) Non-Af 17 L, BUN/Creatinine Ratio 14.2, Glucose 80, Calcium 11.8 H, Albumin 3.0 L Physical Exam Narrative alert, oriented x3, no apparent distress, average body habitus and healthy appearing General Appearance: cooperative, well kempt and well developed Orientation / Consciousness: awake, oriented to person, oriented to place and oriented to time HEENT normocephalic, head/scalp atraumatic, hearing grossly normal bilaterally and moist oral mucous membranes Eyes PERRL, EOMs intact bilaterally and conjunctivae normal Neck supple, no JVD, thyroid normal and no carotid bruits General: trachea midline Resp normal respiratory effort, no retractions and no use of accessory muscles Resp Narrative: Decreased breath sounds are noted over the left mid and lower lung field Auscultation: Negative for rales, rhonchi or wheezes Cardio regular rate, regular rhythm, S1 normal heart sound, S2 normal heart sound, no murmurs, no rub and no gallops GI normal to inspection, nondistended, normoactive bowel sounds, soft to palpation,non-tender and non-distended Extremity no clubbing, cyanosis or edema Skin no rashes or lesions noted General Skin Exam: no breakdown Neuro oriented x3, CN's II-XII intact bilaterally, moves all extremities, no focal motor deficits and no sensory deficits noted Sensorium / Orientation: awake and alert Speech: speech normal Psych affect normal Assessment & Plan Assessment/Plan (1) Hypercalcemia: PLAN: Plan 1. Acute kidney injury-patient remains on IV fluid administration at this time,BMP will be repeatedtomorrow #2 hypercalcemia possibly secondary to neoplasm-patient was given IV Zometa and calcium level will be rechecked tomorrow #3 left pleural effusion-patient appears to be oxygenating well on room air, it may be necessary toperform another thoracentesis before the patient is discharge due to the reaccumulation of fluid. 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 #5 mild anemia-etiology unclear, CBC will be monitored Total clinical time spent by myself addressing the patient's medical issues, reviewing all of his data, and collaborating with patient's care team: 35 minutes Charges/Coding Visit Charges Inpatient E&M: 10609 Subs Hosp L2 01/19/257 Cosigner Signature (if applicable): CC: ~ Signed [facility]08-19-2025 History and physical note Author Michelet Donovan [facility] Note Date/Time January 18, 2025 7: 10pm [facility] Medical Records Department [address] [place] [address] [place] [address] H&P Exam - Hospitalist 01/18/25 1859 MR#: [id number] Acct: [id number] Name: JUJU CACERES Rep #:[id number] : 1945 79 From: Michelet Donovan DO PCP: Dr. Michelet Good, DO Status:ADM IN Location: [facility] [id number] HPI - General General Date of Admission: 01/18/25 Date of Service: 01/18/25 Chief Complaint: Shortness of breath left-sided chest pain HPI Narrative JUJU CACERES, is a 79 M who presents to the emergency room at [facility] with complaints of shortness of breath and left-sided chest pain particularly when he takes a deep breath. Patient states that the shortness of breath is worse when he is lying down. Patient was found to have aleft pleural effusion and a lung mass and underwent a thoracentesis on 12/30/2024. He is already seen pulmonary medicine here (Dr. Garcia) and Dr. Garciareferred him to a chest surgeon at [facility] for a pleural biopsy. I contacted pathology here and the pleural fluid was sent for an additional analysis by [facility] and they read out T-cell predominant lymphocytosis on the thoracentesis fluid obtained on 12/30/2024, T-cell receptor gene rearrangement analysis is in progress to assess for clonality and it will be reported as an addendum. Workup in the emergency room included a chest x-ray which showed a moderate leftpleural effusion, labs were obtained and they were abnormal for a BUN of 51, creatinine of 3.72, and a calcium of 13.6. Patient's initial troponin was 31, 2- hour troponin was 33. Patient's hemoglobin was 10.2. Patient underwent a renal ultrasound which showed a mild right hydronephrosis. Patient will be admitted to [place] [address] for acute kidney injury and hypercalcemia,he will be seen in consultation by nephrology, I had a brief conversation with nephrology and they advise giving the patient Zometa-pharmacy advised a 4 mg dose. IV fluids will be given and labs will be monitored. Patient will undergoa CT of the abdomen and pelvis while in the hospital. [facility] Medical History (Updated 01/18/25 @ 11:40 by GIRMA Adams) Pleural effusion Lung mass Macular degeneration Home Medications ?Medication ?Instructions ?Recorded ?Last Taken ?Type NK 01/18/25 Unknown History Allergy/AdvReac Type Severity Reaction Status Date / Time No Known Allergies Allergy Verified 01/18/25 05:18 Family History (Updated 12/27/24 @ 10:43 by Mirna Griffiths LPN) Brother Cancer throat Surgical History (Updated 01/18/25 @ 06:[address] 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 pets and animals: No history of recent travel: No Smoking Status: Never smoker alcohol intake: never substance use type: does not use caffeine: No what type of physical activity do you participate in: walking seatbelt use: always ROS Constitutional Constitutional: Reports fatigue; Denies anorexia, change in weight, chills, fever(s), night sweats or weakness Eyes Eyes: Denies blurry vision, change in vision, discharge from eye(s) or eye pain Cardiovascular Cardiovascular: Reports dyspnea on exertion; Denies chest pain, claudication, edema or palpitations Respiratory/Chest Respiratory/Chest: Reports dyspnea and shortness of breath with exertion; Deniescough, hemoptysis or shortness of breath at rest Gastrointestinal Gastrointestinal: Denies abdominal pain, constipation, diarrhea, hematemesis, hematochezia, melena, nausea or vomiting Genitourinary Genitourinary: Denies dysuria, hematuria, urinary frequency, urinary hesitancy, urinary incontinence or urinary urgency Musculoskeletal Musculoskeletal: Denies back pain, joint pain, joint stiffness, joint swelling, myalgias or neck pain Neurologic Neurologic: Denies abnormal gait, abnormal speech, dizziness, focal weakness, headache(s), loss of vision, numbness, other visual disturbances, paresthesias, syncope or tingling Psychiatric Psychiatric: Denies anxiety, cognitive impairment, depression, irritability, mood swings or suicidal ideation Endocrine Endocrinology: Denies change in body appearance, cold intolerance, excessive sweating, heat intolerance, polydipsia or polyuria Hematologic/Lymphatic Hematologic/Lymphatic: Denies none, anemia, easy bleeding, easy bruising or lymphadenopathy Allergic/Immunologic Allergic/Immunologic: Denies rhinitis, urticaria, eczemia or asthma Vital Signs Vital Signs Vital Signs: 01/18/25 05:17 01/18/25 05:17 01/18/25 06:17 Temperature 98.9 F Temperature Source Oral Pulse Rate 115 H 90 Respiratory Rate 18 14 Respiratory Effort Short of Breath Respiratory Depth Respiratory Pattern Tachypnea Blood Pressure 170/90 H 142/79 H Blood Pressure Mean 116 100 Blood Pressure Source Blood Pressure Position Blood Pressure Location Pulse Ox 96 98 Oxygen Delivery Method Room Air Room Air Room Air 01/18/25 07:00 01/18/25 07:12 01/18/25 08:26 Temperature 98 F Temperature Source Pulse Rate 85 89 92 Respiratory Rate 15 17 Respiratory Effort Respiratory Depth Respiratory Pattern Blood Pressure 142/77 H 161/71 H Blood Pressure Mean 98 101 Blood Pressure Source Blood Pressure Position Blood Pressure Location Pulse Ox 99 97 Oxygen Delivery Method 01/18/25 09:04 01/18/25 10:02 01/18/25 11:58 Temperature Temperature Source Pulse Rate 84 75 88 Respiratory Rate 31 H 18 16 Respiratory Effort Respiratory Depth Respiratory Pattern Blood Pressure 154/86 H Blood Pressure Mean 108 Blood Pressure Source Blood Pressure Position Blood Pressure Location Pulse Ox 96 100 98 Oxygen Delivery Method 01/18/25 12:07 01/18/25 12:30 01/18/25 16:32 Temperature 98 F Temperature Source Oral Pulse Rate 91 Respiratory Rate 20 H Respiratory Effort Normal Normal Respiratory Depth Normal Normal Respiratory Pattern Tachypnea Normal Blood Pressure 161/77 H Blood Pressure Mean 105 Blood Pressure Source Monitor Blood Pressure Position Semi-Fowlers Blood Pressure Location Right Arm Pulse Ox 99 99 Oxygen Delivery Method Room Air Room Air Room Air 01/18/25 16:33 Temperature 97.8 F Temperature Source Oral Pulse Rate 84 Respiratory Rate 18 Respiratory Effort Respiratory Depth Respiratory Pattern Blood Pressure 159/84 H Blood Pressure Mean 109 Blood Pressure Source Monitor Blood Pressure Position Semi-Fowlers Blood Pressure Location Left Arm Pulse Ox 99 Oxygen Delivery Method Room Air Weight Weight: 69.003 kg Body Mass Index (BMI) 24.5 Physical Exam Const alert, oriented x3, no apparent distress, average body habitus and healthy appearing General Appearance: cooperative, well kempt and well developed Orientation / Consciousness: awake, oriented to person, oriented to place and oriented to time HEENT normocephalic, head/scalp atraumatic, hearing grossly normal bilaterally and moist oral mucous membranes Eyes PERRL, EOMs intact bilaterally and conjunctivae normal Neck supple, no JVD, thyroid normal and no carotid bruits General: trachea midline Resp normal respiratory effort, no retractions and no use of accessory muscles Resp Narrative: Decreased breath sounds are noted over the left mid and lower lung field Auscultation: Negative for rales, rhonchi or wheezes Cardio regular rate, regular rhythm, S1 normal heart sound, S2 normal heart sound, no murmurs, no rub and no gallops GI normal to inspection, nondistended, normoactive bowel sounds, soft to palpation,non-tender and non-distended Extremity no clubbing, cyanosis or edema Skin no rashes or lesions noted General Skin Exam: no breakdown Neuro oriented x3, CN's II-XII intact bilaterally, moves all extremities, no focal motor deficits and no sensory deficits noted Sensorium / Orientation: awake and alert Speech: speech normal Psych affect normal Results Lab / Micro Data 01/18/25 05:30 01/18/25 05:30 Labs: Laboratory Results - last 24 hr 01/18/25 05:30: WBC 8.0, RBC 3.50 L, Hgb 10.2 L, Hct 30.8 L, MCV 88.0, MCH 29.1,MCHC 33.1, RDW Std Deviation 42.5, RDW Coeff of Martha 13.2, Plt Count 380, MPV 10.2, Immature Gran % (Auto) 0.200, Neut % (Auto) 70.8 H, Lymph % (Auto) 11.1 L,[place] % (Auto) 12.3 H, Eos % (Auto) 4.7, Baso % (Auto) 0.9, Absolute Neuts (auto)5.7, Absolute Lymphs (auto) 0.89, Nucleated RBC % 0, Sodium 139, Potassium 4.0, Chloride 101, Carbon Dioxide 21.7, Anion Gap 15, BUN 51 H, Creatinine 3.72 H, Estim Creat Clear Calc 14.05 L, Est GFR (MDRD) Non-Af 16 L, BUN/Creatinine Ratio 13.6, Glucose 98, Calcium 13.6 H*, Troponin T High Sens 31 H 01/18/25 07:26: Troponin T Hi Sens 2 Hr 33 H 01/18/25 12:14: Vitamin D 25-Hydroxy 81.7, PTH Intact 32 Imaging Radiology Impression Chest X-Ray 01/18/25 06:20 IMPRESSION: There is a moderate size left pleural effusion. Reading Location: [facility] Renal Ultrasound 01/18/25 07:11 IMPRESSION: Mild dilation of the renal collecting system on the right. Reading Location: [id number] Abdomen/Pelvis CT 01/18/25 13:30 IMPRESSION: Moderate-sized left pleural effusion with left basilar compressive atelectasis. Nodular thickening along the medial aspect of the left pleural with the thickening of the pericardium. Metastatic deposit should be ruled out. Mild degree of right hydronephrosis and right hydroureter. No obstructive calculus is seen at this time. Questionable 3 cm x 2.4 cm irregular mass in the right hemipelvis as described. Reading Location: [id number] Assessment & Plan Assessment/Plan (1) Hypercalcemia: PLAN: Plan 1. Acute kidney injury-patient will be admitted to [place] [address] and receive IV fluids, labs will be monitored, patient will be seen by nephrology #2 hypercalcemia-patient will be given IV Zometa and calcium level will be rechecked tomorrow #3 left pleural effusion-patient appears to be oxygenating well on room air, it may be necessary to perform another thoracentesis before the patient is discharge due to the reaccumulation of fluid. 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 #5 mild anemia-etiology unclear, CBC will be monitored as necessary Total clinical time spent by myself addressing the patient's medical issues, reviewing all of his data, and collaborating with patient's care team: 75 minutes Charges/Coding Visit Charges Inpatient E&M: 84185 Init Hosp L3 01/18/25 1910 <Electronically signed by Michelet Tereletsky DO> Cosigner Signature (if applicable): CC: Dr. Michelet Good, DO; Dr. Michelet Donovan, DO~ Signed [facility] Work Phone: 1(203) 810-512008-19-2025 History and physical note [facility] Medical Records Department [address] [place] [address] H&P Exam - Hospitalist 01/18/25 1859 MR#: [id number] Acct: [id number] Name: JUJU CACERES Rep #:[id number] : 1945 79 From: Michelet Donovan DO PCP: Dr. Michelet Good DO Status:ADM IN Location: [facility] [id number] HPI - General General Date of Admission: 01/18/25 Date of Service: 01/18/25 Chief Complaint: Shortness of breath left-sided chest pain HPI Narrative JUJU CACERES, is a 79 M who presents to the emergency room at [facility] with complaints of shortness of breath and left-sided chest pain particularly when he takes a deep breath.Patient states that the shortness of breath is worse when he is lying down. Patient was found to have aleft pleural effusion and a lung mass and underwent a thoracentesis on 12/30/2024. He is already seen pulmonary medicine here (Dr. Garcia) and Dr. Garciareferred him to a chest surgeon at [facility] for a pleural biopsy. I contacted pathology here and the pleural fluid was sent for an additional analysis by [facility] and they read out T-cell predominant lymphocytosis on the thoracentesis fluid obtained on 12/30/2024, T-cell receptor gene rearrangement analysis is in progress to assess for clonality and it will be r eported as an addendum. Workup in the emergency room included a chest x-ray which showed a moderate leftpleural effusion, labs were obtained and they were abnormal for a BUN of 51, creatinine of 3.72, and a calcium of 13.6.Patient's initial troponin was 31, 2- hour troponin was 33. Patient's hemoglobin was 10.2. Patient underwent a renal ultrasound which showed a mild right hydronephrosis. Patient will be admitted to [place] [address] for acute kidney injury and hypercalcemia,he will be seen in consultation by nephrology, I had a brief conversation with nephrology and they advise giving the patient Zometa-pharmacy advised a 4 mg dose. IV fluids will be given and labs will be monitored. Patient will undergoa CT of the abdomen and pelvis while in the hospital. [facility] Medical History (Updated 01/18/25 @ 11:40 by Natalie Yen NP-C) Pleural effusion Lung mass Macular degeneration Home Medications ?Medication ?Instructions ?Recorded ?Last Taken ?Type NK 01/18/25 Unknown History Allergy/AdvReac Type Severity Reaction Status Date / Time No Known Allergies Allergy Verified 01/18/25 05:18 Family History (Updated 12/27/24 @ 10:43 by Mirna Griffiths LPN) Brother Cancer throat Surgical History (Updated 01/18/25 @ 06:[address] 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 pets and animals: No history of recent travel: No Smoking Status: Never smoker alcohol intake: never substance use type: does not use caffeine: No what type of physical activity do you participate in: walking seatbelt use: always ROS Constitutional Constitutional: Reports fatigue; Denies anorexia, change in weight, chills, fever(s), night sweats or weakness Eyes Eyes: Denies blurry vision, change in vision, discharge from eye(s) or eye pain Cardiovascular Cardiovascular: Reports dyspnea on exertion; Denies chest pain, claudication, edema or palpitations Respiratory/Chest Respiratory/Chest: Reports dyspnea and shortness of breath with exertion; Deniescough, hemoptysis or shortness of breath at rest Gastrointestinal Gastrointestinal: Denies abdominal pain, constipation, diarrhea, hematemesis, hematochezia, melena,nausea or vomiting Genitourinary Genitourinary: Denies dysuria, hematuria, urinary frequency, urinary hesitancy, urinary incontinence or urinary urgency Musculoskeletal Musculoskeletal: Denies back pain, joint pain, joint stiffness, joint swelling, myalgias or neck pain Neurologic Neurologic: Denies abnormal gait, abnormal speech, dizziness, focal weakness, headache(s), loss of vision, numbness, other visual disturbances, paresthesias, syncope or tingling Psychiatric Psychiatric: Denies anxiety, cognitive impairment, depression, irritability, mood swings or suicidal ideation Endocrine Endocrinology: Denies change in body appearance, cold intolerance, excessive sweating, heat intolerance, polydipsia or polyuria Hematologic/Lymphatic Hematologic/Lymphatic: Denies none, anemia, easy bleeding, easy bruising or lymphadenopathy Allergic/Immunologic Allergic/Immunologic: Denies rhinitis, urticaria, eczemia or asthma Vital Signs Vital Signs Vital Signs: 01/18/25 05:17 01/18/25 05:17 01/18/25 06:17 Temperature 98.9 F Temperature Source Oral Pulse Rate 115 H 90 Respiratory Rate 18 14 Respiratory Effort Short of Breath Respiratory Depth Respiratory Pattern Tachypnea Blood Pressure 170/90 H 142/79 H Blood Pressure Mean 116 100 Blood Pressure Source Blood Pressure Position Blood Pressure Location Pulse Ox 96 98 Oxygen Delivery Method Room Air Room Air Room Air 01/18/25 07:00 01/18/25 07:12 01/18/25 08:26 Temperature 98 F Temperature Source Pulse Rate 85 89 92 Respiratory Rate 15 17 Respiratory Effort Respiratory Depth Respiratory Pattern Blood Pressure 142/77 H 161/71 H Blood Pressure Mean 98 101 Blood Pressure Source Blood Pressure Position Blood Pressure Location Pulse Ox 99 97 Oxygen Delivery Method 01/18/25 09:04 01/18/25 10:02 01/18/25 11:58 Temperature Temperature Source Pulse Rate 84 75 88 Respiratory Rate 31 H 18 16 Respiratory Effort Respiratory Depth Respiratory Pattern Blood Pressure 154/86 H Blood Pressure Mean 108 Blood Pressure Source Blood Pressure Position Blood Pressure Location Pulse Ox 96 100 98 Oxygen Delivery Method 01/18/25 12:07 01/18/25 12:30 01/18/25 16:32 Temperature 98 F Temperature Source Oral Pulse Rate 91 Respiratory Rate 20 H Respiratory Effort Normal Normal Respiratory Depth Normal Normal Respiratory Pattern Tachypnea Normal Blood Pressure 161/77 H Blood Pressure Mean 105 Blood Pressure Source Monitor Blood Pressure Position Semi-Fowlers Blood Pressure Location Right Arm Pulse Ox 99 99 Oxygen Delivery Method Room Air Room Air Room Air 01/18/25 16:33 Temperature 97.8 F Temperature Source Oral Pulse Rate 84 Respiratory Rate 18 Respiratory Effort Respiratory Depth Respiratory Pattern Blood Pressure 159/84 H Blood Pressure Mean 109 Blood Pressure Source Monitor Blood Pressure Position Semi-Fowlers Blood Pressure Location Left Arm Pulse Ox 99 Oxygen Delivery Method Room Air Weight Weight: 69.003 kg Body Mass Index (BMI) 24.5 Physical Exam Const alert, oriented x3, no apparent distress, average body habitus and healthy appearing General Appearance: cooperative, well kempt and well developed Orientation / Consciousness: awake, oriented to person, oriented to place and oriented to time HEENT normocephalic, head/scalp atraumatic, hearing grossly normal bilaterally and moist oral mucous membranes Eyes PERRL, EOMs intact bilaterally and conjunctivae normal Neck supple, no JVD, thyroid normal and no carotid bruits General: trachea midline Resp normal respiratory effort, no retractions and no use of accessory muscles Resp Narrative: Decreased breath sounds are noted over the left mid and lower lung field Auscultation: Negative for rales, rhonchi or wheezes Cardio regular rate, regular rhythm, S1 normal heart sound, S2 normal heart sound, no murmurs, no rub and no gallops GI normal to inspection, nondistended, normoactive bowel sounds, soft to palpation,non-tender and non-distended Extremity no clubbing, cyanosis or edema Skin no rashes or lesions noted General Skin Exam: no breakdown Neuro oriented x3, CN's II-XII intact bilaterally, moves all extremities, no focal motor deficits and no sensory deficits noted Sensorium / Orientation: awake and alert Speech: speech normal Psych affect normal Results Lab / Micro Data 01/18/25 05:30 01/18/25 05:30 Labs: Laboratory Results - last 24 hr 01/18/25 05:30: WBC 8.0, RBC 3.50 L, Hgb 10.2 L, Hct 30.8 L, MCV 88.0, MCH 29.1,MCHC 33.1, RDW Std Deviation 42.5, RDW Coeff of Martha 13.2, Plt Count 380, MPV 10.2, Immature Gran % (Auto) 0.200, Neut %(Auto) 70.8 H, Lymph % (Auto) 11.1 L,[place] % (Auto) 12.3 H, Eos % (Auto) 4.7, Baso % (Auto) 0.9, Absolute Neuts (auto)5.7, Absolute Lymphs (auto) 0.89, Nucleated RBC % 0, Sodium 139, Potassium 4.0, Chloride 101, Carbon Dioxide 21.7, Anion Gap 15, BUN 51 H, Creatinine 3.72 H, Estim Creat Clear Calc 14.05 L, Est GFR (MDRD) Non-Af 16 L, BUN/Creatinine Ratio 13.6, Glucose 98, Calcium 13.6 H*, TroponinT High Sens 31 H 01/18/25 07:26: Troponin T Hi Sens 2 Hr 33 H 01/18/25 12:14: Vitamin D 25-Hydroxy 81.7, PTH Intact 32 Imaging Radiology Impression Chest X-Ray 01/18/25 06:20 IMPRESSION: There is a moderate size left pleural effusion. [facility] 01/18/25 07:11 IMPRESSION: Mild dilation of the renal collecting system on the right. Reading Location: [id number] Abdomen/Pelvis CT 01/18/25 13:30 IMPRESSION: Moderate-sized left pleural effusion with left basilar compressive atelectasis. Nodular thickening along the medial aspect of the left pleural with the thickening of the pericardium. Metastatic deposit should be ruled out. Mild degree of right hydronephrosis and right hydroureter. No obstructive calculus is seen at this time. Questionable 3 cm x 2.4 cm irregular mass in the right hemipelvis as described. Reading Location: [id number] Assessment & Plan Assessment/Plan (1) Hypercalcemia: PLAN: Plan 1. Acute kidney injury-patient will be admitted to [place] [address] and receive IV fluids, labs will be monitored, patient will be seen by nephrology #2 hypercalcemia-patient will be given IV Zometa and calcium level will be rechecked tomorrow #3 left pleural effusion-patient appears to be oxygenating well on room air, it may be necessary toperform another thoracentesis before the patient is discharge due to the reaccumulation of fluid. 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 #5 mild anemia-etiology unclear, CBC will be monitored as necessary Total clinical time spent by myself addressing the patient's medical issues, reviewing all of his data, and collaborating with patient's care team: 75 minutes Charges/Coding Visit Charges Inpatient E&M: 46481 Init Hosp L3 01/18/25 191 Cosigner Signature (if applicable): CC: Dr. Michelet Good DO; Dr. Michelet Donovan DO~ Signed [facility]08-19-2025 Radiology Diagnostic study note [facility] Imaging Services [address] [place], [place] [address] Abdomen/Pelvis without Cont MR#: [id number] Acct: [id number] Name: JUJU CACERES Rep #: [id number] : 1945 M 79 From: Wiliam Barnes MD PCP: Dr. Michelet Good DO Status: ADM IN Study:Abdomen/Pelvis without Cont Date of Exa m: 01/18/25 Exam# [id number] Ordering Dr: Michelet Love DO PROCEDURE: ABDOMEN/PELVIS WITHOUT CONT 01/18/2025 REASON FOR EXAM: HYDRONEPHROSIS, POSSIBLE LYMPHOMA TECHNIQUE: ABDOMEN/PELVIS WITHOUT CONT Noncontrast technique limits evaluation of the abdominal and pelvic viscera. Coronal and Sagittal reconstruction series were provided. One or more dose reduction techniques were used (e.g., Automated exposure control, adjustment of the mA and/or kV according to patient size, use of iterative reconstruction technique). RADIATION DOSE SUMMARY: CTDlvol: 9.39 mGy DLP: 453.37 mGycm COMPARISON: Prior sonogram of the kidneys done earlier in the day. FINDINGS: Lung bases: Moderate left pleural effusion with left basilar atelectasis. Nodular thickening along the medial aspect of the left pleural space as well as pericardial thickening. Metastatic deposit should be ruled out. Liver: Normal size. No obvious mass. Gallbladder: Unremarkable Spleen: Mild splenomegaly. Pancreas: Normal size. No surrounding inflammation. Adrenals: Unremarkable Kidneys: Mild degree of right hydronephrosis and right hydroureter. No evidenceof ureteral calculus. Nonspecific mild bilateral perinephric stranding. Bladder: Unremarkable Mildly enlarged prostate with central calcification. Bowel: Colonic diverticulosis without diverticulitis. Appendix: Unremarkable Lymph nodes: No suspicious lymph node enlargement. Vasculature: Mild diffuse atherosclerotic calcifications are noted. Peritoneum / Retroperitoneum: Findings suggestive of a 2 point 4 cm by 3 cm irregular soft tissue mass in the right hemipelvis as seen on axial image number 86. Bones: Degenerative changes of the spine. Straightening of the normal lumbar lordosis. CT/Abdomen/Pelvis without Cont IMPRESSION: Moderate-sized left pleural effusion with left basilar compressive atelectasis. Nodular thickening along the medial aspect of the left pleural with the thickening of the pericardium. Metastatic deposit should be ruled out. Mild degree of right hydronephrosis and right hydroureter. No obstructive calculus is seen at this time. Questionable 3 cm x 2.4 cm irregular mass in the right hemipelvis as described. Reading Location: [id number] CC: Dr. Michelet Good, ; Dr. Michelet Donovan, DO ~ Fire Sprinkler Inspector: Signed [facility]08-19-2025 Radiology Diagnostic study note [facility] Imaging Services [address] [place] [address] [id number] Kidney and Bladder MR#: [id number] Acct: [id number] Name: JUJU CACERES Rep #: [id number] : 1945 M 79 From: Naomie Bardales MD PCP: Dr. Michelet Good DO Status: REG ER Study:Kidney and Bladder Date of Exam: 0 01/18/25 Exam# [id number] Ordering Dr: Kenrick Ott DO PROCEDURE: KIDNEY AND BLADDER 01/18/2025 REASON FOR EXAM: ACUTE KIDNEY INJURY TECHNIQUE: KIDNEY AND BLADDER COMPARISON: None FINDINGS: Kidneys: Right kidney is 11.1 x 5.3 x 6.0 cm, while the left is 12.0 x 4.5 x 6.2cm. [place]: Mild hydronephrosis on the right. The left is normal. Cysts or Masses: None Bladder: Urinary bladder is normal. Prevoid bladder volume 312 cc. Postvoid bladder volume 0 cc. Bilateral ureteral jets are seen. US/Kidney and Bladder IMPRESSION: Mild dilation of the renal collecting system on the right. Reading Location: [id number] CC: Dr. Kenrick Ott DO; Dr. Michelet Good DO ~ Fire Sprinkler Inspector: Signed [facility]08-19-2025 Radiology Diagnostic study note [facility] Imaging Services [address] [place] [address] Chest PA and Lateral MR#: [id number] Acct: [id number] Name: JUJU CACERES Rep #: [id number] : 1945 M 79 From: Meet De La Rosa MD PCP: Dr. Michelet Good DO Status: PRE ER Study:Chest PA and Lateral Date of Exam: 01/18/25 Exam# [id number] Ordering Dr: Kenrick Ott DO PROCEDURE: CHEST PA AND LATERAL 01/18/2025 REASON FOR EXAM: DYSPNEA TECHNIQUE: CHEST PA AND LATERAL COMPARISON: September 18, 2020 FINDINGS: Heart size is within normal limits. Central vascularity appears normal. There is a moderate left pleural effusion. There is no visible pneumothorax. There is no acute bony abnormality. Aortic calcifications are visible. RAD/Chest PA and Lateral IMPRESSION: There is a moderate size left pleural effusion. Reading Location: [facility] CC: Dr. Kenrick Ott DO; Dr. Michelet Good DO ~ Fire Sprinkler Inspector: Signed [facility]08-07-2025 History of Present illness Narrative* Freddy Contreras DO - 01/06/2025 11:15 AM EDT Images from the original note were not included. [facility] CARDIOVASCULAR [facility] THORACIC SURGERY [address] [facility] [address] Dept: [phone] Dept Loc: [phone] Visit type: New Reason for Visit: Mediastinal [...] a 79 y.o. male referred by Dr. Garcia for mediastinal mass. Per note, pt had CT chest completed at [facility] on 12/21/24 which demonstrated a large mass [...] Position: Sitting, BP Cuff Size: Large adult) Pulse91 Ht 5' 6 (1.676 m) Wt 153 [...] Chest 12/21/24 Patient Care Team: PCP: Michelet Good MD Pulmonology: DO Lucero Golden DO FACS Cardiothoracic Surgery [1] History reviewed. No pertinent surgical history. [2] Family History Problem Relation Name Age of Onset Throat cancer Brother [3] Social History Tobacco Use Smoking status: Never Smokeless tobacco: Never Substance Use Topics Alcohol use: Never Drug use: Never documented in this [facility]07-28-2025 Evaluation note* Diagnosis Onset Date Resolution Status Admit Date Lung mass acute December 27 10:33am Pleural effusion acute November 10:33am [facility] Work Phone: 1(747) 828-277707-28-2025 Evaluation note* Diagnosis Onset Date Resolution Status Admit Date Lung mass acute December 27 10:33am Pleural effusion acute November 10:33am Acute kidney injury acute Augus t 2024 10:56am Dyspnea acute January 18, 2 025 10:56am Hypercalcemia acute December 10:56am Recurrent left pleural effusion acut e January 18, 2025 10:56am [facility] Work Phone: [phone]) 650-202407-28-2025 Evaluation note* Diagnosis Onset Date Resolution Status Admit Date Lung mass acute December 27 10:33am Pleural effusion acute November 10:33am Acute kidney injury inactive 2024 10:56am Dyspnea inactive January 18, 025 10:56am Hypercalcemia inactive December 10:56am Recurrent left pleural effusion inactive January 18 10:56am Lung mass acute February 01, 2025 8:38am Pleural effusion acute Septembe r 2024 8:38am [facility] Work Phone: 1(319) 808-637107-28-2025 Evaluation note* Diagnosis Onset Date Resolution Status Admit Date Lung mass acute December 27 10:33am Pleural effusion acute November 10:33am Acute kidney injury inactive 2024 10:56am Dyspnea inactive January 18, 025 10:56am Hypercalcemia inactive December 10:56am Recurrent left pleural effusion inactive January 18 10:56am Lung mass acute February 01, 2025 8:38am Pleural effusion acute Septembe r 2024 8:38am DLBCL (diffuse large B cell lymphoma) acute March 02 9:45am Hypercalcemia of malignancy acute March 02, 2025 9:45am Iron deficiency anemia acute Oc tober 2024 9:45am [facility] Work Phone: 1(155) 744-796407-28-2025 Evaluation note* Diagnosis Onset Date Resolution Status Admit Date Lung mass acute December 27 10:33am Pleural effusion acute November 10:33am Acute kidney injury inactive 2024 10:56am Dyspnea inactive January 18, 025 10:56am Hypercalcemia inactive December 10:56am Recurrent left pleural effusion inactive January 18 10:56am Lung mass acute February 01, 2025 8:38am Pleural effusion acute Septembe r 2024 8:38am Hypercalcemia of malignancy acute March 02, 2025 9:45am Iron deficiency anemia acute Oc tober 2024 9:45am 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 March 02 9:45am Chemotherapy management, encounter for acute March 10 9:19am Encounter for monoclonal antibody treatment for malignancy acute March 10 9:19am Hypercalcemia of malignancy acute March 10, 2025 9:19am 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 [address] [place] [address]. All rights reserved. This information is not intended as a substitute for professional medical care. Always follow yourhealthcare professional's instructions. Follow Up Care 07/23/2024 08:02:49 With:MICHELET GOOD DO Address: [address] [place] [address]- When:2-4 days [facility] 02-21-2025 Note Discharge Instructions Thank you for allowing [facility] to assist you with your healthcare needs. The following is importantdischarge information regarding your hospital visit. Diagnosis from Today's Visit Vasovagal syncope What to Do Next Instructions from Your Care Team No qualifying data available. Post Acute Orders No qualifying data available. You Need to Schedule the Following Appointments Follow Up with MICHELET GOOD DO When:Within 2-4 days Where:[facility] [address] [place] [address]- Allergies No Known Medication Allergies Medications Please [...] very rapidly, very slowly, or irregularly (palpitations) 2957-0336 [employer]. [address] [place] [address]. All rights reserved. This information is not intended as a substitute for professional medical care. Always follow yourhealthcare professional's instructions. Additional Information VACCINATE! IT SAVES LIVES! Members of the community who have not yet received the COVID-19 vaccine and would like to receive it can visit one of [facility] vaccine clinics. There are many vaccine clinic locations within the [facility]. For locations and available times, please visit [email or web address] It is important to note that some COVID mobile vaccine clinics are held outdoors and may be canceled in rainy or stormy conditions. To learn more about pediatric vaccinations (ages 5-11), we invite you to visit the [facility] webpage. [email or web address]/[email or web address] [email or web address] learn more about the COVID-19 vaccine, we invite you to visit the CDC website for a list of frequently asked questions. https://www.cdc.gov/coronavirus/2019-ncov/vaccines/faq.html [email or web address] Patient Portal Access Instructions: Stay connected with your healthcare team and access your personal medical information anytime with the [email or web address] Patient Portal. If you would like a full copy of your medical records please contact the [facility] Medical Records Department Friday through Friday between 8a.m. and 4:30p.m. Please follow the directions below to access the portal: 1.Access the email account you provided upon registration to the hospital.2.Look for an invitation email from [facility].3.Open the email and access the invitation link: Accept Invitation to [facility]4.Fill in the required jensen to create your account. Sign into [email or web address] Top-Level Domain with your username and password that you [...] you will allow to register on the [facility] Patient Portal for access to your information. You can also access the [facility] Patient Portal on the [employer]. Simply click on Health Records under [place] and then click on the [employer] logo. [...] Call your local pharmacy or go to [email or web address] to find one close to you.3.Make use of household items: Use cat litter or old coffee grounds to dispose medications if other options arenot available. Mix your drugs with these household products, seal them in an airtight container andthrow it into the garbage. Call [facility]: [phone] to be sure your drugs can be [...] aware that I should contact my doctor. 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 Interpreted by: Kenrick Klein Preliminary Report By: Kenrick Klein Electronically signed By Kenrick Klein Dictated Date: 07/23/2024 9:25:20 AM Prelim Date: 07/23/2024 9:25:53 AM Sign Date: 07/23/2024 9:25:53 AM Ordering Provider: MARK GORE [facility]02-21-2025 Note* Exam Date Time Procedure Performing Provider Status 07/23/24 8:49 AM EKG [ED AOH] - CV MD BAO, MARK MCGOVERN; Auth (Verified) ECG Final Report Sinus rhythm Atrial premature complex Baseline wander in lead(s) V3 Electronic Signature: MD BAO, MARK MCGOVERN 07/23/2024 10:59:11 [facility] Ed Parada [facility] Note Date/Time February 14, 2025 11:20am [facility] Medical Records Department [address] [place] [address] Emergency Department Summary 02/14/25 MR#: [id number] Acct: [id number] Name: JUJU CACERES Rep #:[id number] : 1945 79 From: Ed craig DO PCP: Dr. Michelet Good DO Status:REG ER Location: ED HPI History of Present Illness Chief Complaint: Constipation Narrative Narrative: Chief complaint and HPI: 79-year-old male with lung mass status post recent lungbiopsy, HTN presents for evaluation of constipation. Patient states on Friday he had a lung biopsy performed. States the procedure went well. States he has been intermittently taking oxycodone secondary to pain. Patient states he has not had a bowel movement since Friday. Has been taking daily MiraLAX with little relief. He denies any fever, chills, shortness of breath, chest pain, nausea, vomiting, constipation, diarrhea. States he has a little abdominal discomfort. Has been eating and drinking. Passing gas. Review of systems: See HPI Medications: As listed on the chart Allergies: As listed on the chart PFSH: Per chart Vital signs: As listed on the chart. Reviewed. Physical exam: Gen: A&O x3, NAD Head: Normocephalic, atraumatic Eyes: No sclera icterus, conjunctiva clear ENT: Moist mucous membranes Neck: Trachea midline, No JVD CV: RRR, no murmurs, no peripheral edema Resp: Lungs CTA BL, no w/r/c, left-sided chest surgical incisions healing well without signs of infection GI: Abd soft, non-distended, non-tender, no r/r/g Rectal: Normal external examination. No evidence of hemorrhoids or fissures. Normal tone and sensation. No masses, fluctuance, or tenderness. No pain out of proportion. Stool brown on gloved finger. Stool present in the rectal vault atmy fingertip. Soft. Unable to reach for manual disimpaction. Musc: Full ROM, no deformity Skin: Warm, dry Neuro: Alert, oriented, grossly intact, sensation intact Psych: Cooperative, appropriate mood and affect [facility] Medical History Hypercalcemia Dyspnea Recurrent left pleural effusion Acute kidney injury Pleural effusion Lung mass Macular degeneration Home Medications ?Medication ?Instructions ?Recorded ?Last Taken ?Type melatonin 3 mg tablet 3 mg PO QHS PRN sleep Unknown History ascorbate calcium (vitamin C) 500 500 mg PO QDAY 02/01 Unknown History mg tablet cholecalciferol (vitamin D3) 125 125 mcg PO QDAY 02/01 Unknown History mcg (5,000 unit) capsule omega-3 fatty acids-fish oil 300 1 cap PO DAILY Unknown History mg-500 mg capsule (Fish Oil) magnesium 250 mg tablet 250 mg PO DAILY 02/04/25 Unk nown History metoprolol tartrate 50 mg tablet 50 mg PO DAILY Unknown History Allergy/AdvReac Type Severity Reaction Status Date / Time No Known Allergies Allergy Verified 02/14/25 07:02 Family History Brother Cancer throat Surgical History History of thoracentesis Social History household members: significant other 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 occupational status: retired 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 pets and animals: No history of recent travel: No Smoking Status: Never smoker alcohol intake: never substance use type: does not use caffeine: No what type of physical activity do you participate in: walking seatbelt use: always EXAM Physical Exam Const Vital Signs: 02/14/25 07:01 02/14/25 11:10 Temperature 98.2 F 97.5 F L Temperature Source Oral Oral Pulse Rate 78 Respiratory Rate 18 16 Blood Pressure 124/64 H 133/59 H Blood Pressure Mean 84 83 Pulse Ox 98 Oxygen Delivery Method Room Air Room Air MDM MDM MDM Narrative Medical decision making narrative: 79-year-old male with lung mass status post recent lung biopsy, HTN presents forevaluation of constipation. Patient states on Friday he had a lung biopsy performed. States the procedure went well. States he has been intermittently taking oxycodone secondary to pain. Patient states he has not had a bowel movement since Friday. Has been taking daily MiraLAX with little relief. Differential diagnosis includes but is not limited to constipation, ileus, obstruction, metastatic disease. I suspect more likely constipation from oxycodone use however given that patient does not regular suffer from constipation and recently just had surgery we will obtain basic labs with CT abdomen pelvis. CBC without leukocytosis. Patient has baseline anemia with hemoglobin of 8.2. Platelets unremarkable. CMP shows baseline renal insufficiency with creatinine of 2.89 and a BUN of 61. No transaminitis. Magnesium elevated at 2.7. No significant electrolyte abnormality otherwise. Will get CT abdomen pelvis without contrast due to CKD. CT abdomen pelvis shows pleural- based densities in the left lung. Marked improvement in the left pleural effusion. Nodular density in the right lung. A left nodule on the adrenals. Diverticulosis without diverticulitis. Patient does have stool in the rectum as well as more right sided constipation compared to left. Given these densities, I did speak personally to the radiologist over the phone. States that this is concurrent with his known lung mass. No concern for any infection. Patient symptoms are likely secondary to constipation from his oxycodone use. Will prescribe enema. Patient tolerated enema well with bowel movement. Patient stable to discharge home. Recommended continuing MiraLAX. Will give him senna as needed. Recommend stop taking narcotics if no longer needed. Follow-up with PCP. He confirmed understand the plan. Patient will discharge home Impression: 1. Constipation 2. Recent lung surgery on narcotics Lab Data Labs: Laboratory Results - last 24 hr 02/14/25 07:45 WBC 10.0 RBC 2.81 L Hgb 8.2 L Hct 25.2 L MCV 89.7 MCH 29.2 MCHC 32.5 RDW Std Deviation 47.2 H RDW Coeff of Martha 14.5 Plt Count 417 MPV 9.8 Immature Gran % (Auto) 0.700 Neut % (Auto) 84.5 H Lymph % (Auto) 3.3 L [place] % (Auto) 7.3 Eos % (Auto) 3.7 Baso % (Auto) 0.5 Absolute Neuts (auto) 8.4 H Absolute Lymphs (auto) 0.33 L Nucleated RBC % 0 Sodium 133 Potassium 4.8 Chloride 99 Carbon Dioxide 20.1 L Anion Gap 14 BUN 61 H Creatinine 2.89 H Estim Creat Clear Calc 17.89 L Est GFR (MDRD) Non-Af 21 L BUN/Creatinine Ratio 20.9 H Glucose 131 H Calcium 12.5 H Magnesium 2.7 H Total Bilirubin 0.23 AST 27 ALT 22 Alkaline Phosphatase 100 Total Protein 7.2 Albumin 3.5 Globulin 3.8 Albumin/Globulin Ratio 0.9 Radiography Diagnostic Testing: Clinical Impression(s) from Imaging Studies Abdomen/Pelvis CT 02/14/25 07:39 IMPRESSION: There is 3.2 by 1.6 cm pleural-based density at the left lung base, image 16/184, Hounsfield units = 30. There is a 2.6 by 1.6 cm pleural-based nodular density at the left heart border,same image, Hounsfield units = 39. PET scan correlation is recommended. There is marked improvement of a left pleural effusion compared to the prior. There is a 0.4 cm nodular density at the right lung base, image 5/84, new. There is a 1.6 cm nodule in the left adrenal, Hounsfield units = 32, image 41/184. This appears increased compared to the prior. There is diverticulosis of the distal descending and sigmoid colon with no visible acute diverticulitis. [facility] T[facility] Chief Complaint: Constipation ED Provider: Ed Parada Dx/Rx/DC Orders Prescriptions: No Action ascorbate calcium (vitamin C) 500 mg tablet 500 mg PO QDAY Fish Oil 300-500 mg capsule 1 cap PO DAILY cholecalciferol (vitamin D3) 125 mcg (5,000 unit) capsule 125 mcg PO QDAY melatonin 3 mg tablet 3 mg PO QHS PRN (Reason: sleep) magnesium 250 mg tablet 250 mg PO DAILY metoprolol tartrate 50 mg tablet 50 mg PO DAILY Primary Care Provider: Michelet Good Referrals: Michelet Good DO [Primary Care Provider] - Print Language: Hebrew What to do if you have Problems For any increased pain, shortness of breath, bleeding, nausea or vomiting, chestpain, or any unexpected problems, contact your Primary Care Provider. Call [facility] ([phone]) or report to the closest Emergency Room. Call 911 if necessary. 02/14/25 1120 <Electronically signed by Ed Parada DO> Cosigner Signature (if applicable): CC: Dr. Michelet Good DO ~ Signed [facility] Work Phone: Evaluation + Plan note No data available for this section [facility] Evaluation noteNo assessment information available [facility] Work Phone: Evaluation note* Diagnosis Onset Date Resolution Status Admit Date Lung mass acute December 27 10:33am Pleural effusion acute November 10:33am [facility] Work Phone: Evaluation note* Diagnosis Mediastinal mass- Primary Swelling, mass, or lump in chest Weight loss, non-intentional Loss of weight [facility] [place] [facility] Diagnosis Preop testing- Primary Unspecified pre-operative examination Preop testing Unspecified pre-operative examination Other diseases of mediastinum, not elsewhere classified documented in this encounter [facility] note* Diagnosis Mediastinal mass- Primary Swelling, mass, or lump in chest Pleural effusion Unspecified pleural effusion documented in this encounter [facility] Discharge instructions No data available for this section [facility] Hospital Discharge instructionsAmbulatory Orders* Cardiovascular/Thoracic Surgery Location: None Selected [facility] Work Phone: Hospital Discharge instructionsAdditional Instructions Follow-up with primary care physician. Continue MiraLAX. Recommend stop taking narcotics if no longer needed for pain. Senna as needed for constipation.[facility] Work Phone: Hospital Discharge instructionsAmbulatory Orders* Nutrition Referral - [facility] Location: None Selected [facility] Work Phone: Hospital Discharge instructionsAmbulatory Orders* General Surgery Location: None Selected [facility] Work Phone: Progress note No data available for this section [facility] Proxbtyv note Author Parrish Miranda [facility] Note Date/Time March 02, 2025 11 :25am [facility] [address] [place] [id number] OFFICE VISIT Date of Service: 03/02/25 0950 MR#: [id number] Acct: [id number] Name: JUJU CACERES Rep #: [id number] : 1945 From: Parrish Miranda MD Age/Sex: 79/M [place] [facility] [place]: Signed HPI Subjective Date of Service 03/02/25 Chief Complaint Referred for Lymphoma. History of Present Illness 79-year-old man presented with weight loss. CT scan on 12/21/2024 done at [place] showed left-sided lung nodules and mediastinal mass with pleural effusion. 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 He was referred to cardiothoracic surgery at [facility], underwent thoracotomy with biopsy on 02/08/2025. 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 He was found to have hypercalcemia and has been on steroids for a few days. He has tiredness, but doing his ADLs. 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, [place] pets and animals: No history of recent travel: No Smoking Status: Never smoker alcohol intake: never substance use type: does not use caffeine: No what type of physical activity do you participate in: walking seatbelt use: always ROS Constitutional Constitutional: Reports systems reviewed and no addt'l complaints, except as documented Eyes Eyes: Reports systems reviewed and no addt'l complaints, except as documented ENT HEENT: Reports systems reviewed and no addt'l complaints, except as documented Cardiovascular Cardiovascular: Reports systems reviewed and no addt'l complaints, except as documented Respiratory/Chest Respiratory/Chest: Reports systems reviewed and no addt'l complaints, except as documented Gastrointestinal Gastrointestinal: Reports systems reviewed and no addt'l complaints, except as documented Genitourinary Genitourinary: Reports systems reviewed and no addt'l complaints, except as documented Musculoskeletal Musculoskeletal: Reports systems reviewed and no addt'l complaints, except as documented Integumentary Integumentary: Reports systems reviewed and no addt'l complaints, except as documented Neurologic Neurologic: Reports systems reviewed and no addt'l complaints, except as documented Psychiatric Psychiatric: Reports systems reviewed and no addt'l complaints, except as documented Endocrine Endocrinology: Reports systems reviewed and no addt'l complaints, except as documented Hematologic/Lymphatic Hematologic/Lymphatic: Reports systems reviewed and no addt'l complaints, exceptas documented Intake Vital Signs 06/05/24 10:09 02/14/25 07:01 03/02/25 09:56 03/02/25 10:02 Height 5 ft 8 in 5 ft 6 in 5 ft 6 in 5 ft 6 in Weight: 59.477 kg 59.477 kg BMI 21.2 21.2 BP 105/61 Blood Pressure Location Rt brachial Position Sitting Respiration 18 Pulse 75 Pulse Source Monitor Temp 97.8 F Temperature Source Temporal Artery Pulse Oximetry (%) 98 Oxygen Delivery Method room air Intake Is patient in pain?: No Allergies No Known Allergies Allergy (Verified 03/02/25 09:50) Medications ?Medication ?Instructions ?Recorded ?Confirmed ?Type melatonin 3 mg tablet 3 mg PO QHS PRN sleep 02/16/25 History ascorbate calcium (vitamin C) 500 500 mg PO QDAY 02/0102/16/25 History mg tablet cholecalciferol (vitamin D3) 125 125 mcg PO QDAY 02/0102/16/25 History mcg (5,000 unit) capsule omega-3 fatty acids-fish oil 300 1 cap PO DAILY 02/16/25 History mg-500 mg capsule (Fish Oil) metoprolol tartrate 50 mg tablet 50 mg PO DAILY 03/02/25 History sennosides 8.6 mg capsule (senna) 8.6 mg PO DAILY PRN constipation 5 02/14/25 03/02/25 Rx days #5 caps selenium sulfide 1 % shampoo 5 ml topical 2XW 02/16/25 02/16/25 History (Dandruff Shampoo (selenium sulfide)) allopurinol 300 mg tablet 300 mg PO QDAY #30 tabs 06/2603/02/25 Rx magnesium 250 mg tablet 133 mg PO DAILY 03/02/2506/26 History Have you fallen in the past year?: No Central Venous Access Central Venous Access: No Laboratory Tests 01/18/25 03/02/25 12:14 11:30 WBC 16.1 H Hgb 9.0 L Hct 27.4 L Plt Count 557 H Absolute Neuts (auto) 14.5 H Absolute Lymphs (auto) 0.47 L Sodium 134 Potassium 4.1 Chloride 98 Carbon Dioxide 19.0 L BUN 63 H Creatinine 1.97 H Glucose 107 H Uric Acid 9.0 H Calcium 13.9 H* Phosphorus 3.5 Magnesium 2.6 H Iron 52 L TIBC 228 L Iron Saturation 22.8 Unsaturated IBC 176 L Ferritin 1522 H Total Bilirubin 0.31 AST 30 ALT 84 H Alkaline Phosphatase 112 Lactate Dehydrogenase 171 C-React Prot Ext Range 114.00 H Albumin 3.6 Globulin 3.6 Vitamin B12 1187 H Vit D 1,25-Dihydroxy 142.0 H Serum Folate 5.81 PTH Intact 32 01/18/2025 CT a/p reviewed. CT/Abdomen/Pelvis without Cont IMPRESSION: Moderate-sized left pleural effusion with left basilar compressive atelectasis. Nodular thickening along the medial aspect of the left pleural with the thickening of the pericardium. Metastatic deposit should be ruled out. Mild degree of right hydronephrosis and right hydroureter. No obstructive calculus is seen at this time. Questionable 3 cm x 2.4 cm irregular mass in the right hemipelvis as described. Exam Physical Exam Narrative PS 2 Const alert, oriented x3 and no apparent distress HEENT normocephalic, external ears normal and external nose normal Eyes PERRL, EOMs intact bilaterally, conjunctivae normal and no scleral icterus Neck no lymphadenopathy Lymph Lymphatic: no lymphadenopathy noted Chest Chest Narrative: +L thoracotomy scar Resp clear to auscultation bilaterally Cardio regular rate, regular rhythm, S1 normal heart sound and S2 normal heart sound GI soft to palpation, non-tender and non-distended; Negative for hepatosplenomegaly Back/Spine no CVA tenderness and thoracic and lumbar spine normal to inspection Extremity no clubbing, cyanosis or edema Skin no rashes or lesions noted Neuro oriented x3, CN's II-XII intact bilaterally and moves all extremities Psych mental status grossly normal Coding Level of Care Code Off vis,new,level 5 Exam Problem Focused Diagnoses 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 Discussed disease status, staging with PET/CT before treatment with Chemotherapyand Monoclonal antibody therapy. Pt wants to proceed. Plan: To obtain Echocardiogram to assess EF. To obtain PET/CT to determine extent of disease and then decide on treatment. (2) Hypercalcemia of malignancy: Status: Acute Comment: Due to DLBCL, Pt on Prednisone. Plan: To do IV NS and Lasix. Stop Vitamin D and Calcium. (3) Iron deficiency anemia: Status: Acute Qualifiers: Iron deficiency anemia type: unspecified iron deficiency Qualified Code(s): D50.9 - Iron deficiency anemia, unspecified Plan: Will obtain preauthorization and do IV replacement. Check stool for occult blood. Orders: Orders PET/CT Tumor Base -Thigh Init 03/08/25 C83.32 - Diffuse large B-cell lymphoma, intrathoracic lymph nodes CBC W/Diff, Automated Today C83.30 - Diffuse large B-cell lymphoma, unspecifiedsite, D64.9 - Anemia, unspecified Comprehensive Metabolic Profil Today 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, intrapelvic lymph nodes Retic Panel Count Today 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, intrapelvic lymph nodes Erythrocyte Sed Rate Today 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, intrapelvic lymph nodes CRP Today 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, intrapelvic lymph nodes Ferritin Today C83.30 - Diffuse large B-cell lymphoma, unspecified site, D64.9 - Anemia, unspecified Iron+Iron Binding Capacity Today 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, intrapelvic lymph nodes Erythropoietin Today 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, intrapelvic lymph nodes Vitamin B12 Today 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, intrapelvic lymph nodes FOLATES,SERUM (FOLIC ACID) Today 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, intrapelvic lymph nodes Magnesium Today 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, intrapelvic lymph nodes Phosphorus Today 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, intrapelvic lymph nodes LDH Today 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, intrapelvic lymph nodes Partial Thromboplast Time Today C83.30 - Diffuse large B-cell lymphoma, unspecified site, D64.9 - Anemia, unspecified Uric Acid Today 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, intrapelvic lymph nodes [id number], S Today 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, intrapelvic lymph nodes Prothrombin Time w/INR Today C83.30 - Diffuse large B-cell lymphoma, unspecified site, D64.9 - Anemia, unspecified Chest PA and Lateral Today J90 - Pleural effusion, not elsewhere classified Referrals Nutrition Referral - [facility] 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, intrapelvic lymph nodes Medications: New allopurinol 300 mg PO QDAY 30 tabs 0RF Plan Details Follow Up: 1 Week Clinical Quality Measures Falls Risk Screening/Assistive Devices Have you fallen in the past year?: No 03/02/25 1708 <Electronically signed by Parrish Gavin> Date _ Parrish Miranda MD Cosigner Signature: Date (if applicable) CC: Dr. Domenico Garcia, DO; Dr. Michelet Good DO ~ [facility] Work Phone: Progress note Author Parrish Miranda [facility] Note Date/Time March 10, 2025 10 :38am [facility] [address] [place] [address] [place] [address] OFFICE VISIT Date of Service: 03/10/25929 MR#: [id number] Acct: [id number] Name: JUJU CACERES Rep #: [id number] : 1945 From: Parrish Miranda MD Age/Sex: 79/M Location: [facility] [place] Status: Signed HPI Subjective Date of Service 03/10/25 Chief Complaint F/u for DLBCL and therapy. History of Present Illness 79-year-old man presented with weight loss. CT scan on 12/21/2024 done at [place] showed left-sided lung nodules and mediastinal mass with pleural effusion. 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 He was referred to cardiothoracic surgery at [facility], underwent thoracotomy with biopsy on 02/08/2025. 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 He was found to have hypercalcemia. He had a PET/CT, Echocardiogram done and comes for follow up. He has tiredness, but doing his ADLs. 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, [place] pets and animals: No history of recent travel: No Smoking Status: Never smoker alcohol intake: never substance use type: does not use caffeine: No what type of physical activity do you participate in: walking seatbelt use: always Intake Vital Signs 03/02/25 10:02 03/03/25 13:29 03/10/25 09:30 Height 5 ft 6 in 5 ft 6 in 5 ft 6 in Weight: 58.173 kg BMI 20.7 BP 115/71 Blood Pressure Location Rt brachial Position Sitting Respiration 18 Pulse 89 Pulse Source Monitor Temp 98.2 F Temperature Source Temporal Artery Pulse Oximetry (%) 99 Oxygen Delivery Method room air Intake Is patient in pain?: Yes (left side from biopsy) Pain scale (1-10): 2 Allergies No Known Allergies Allergy (Verified 03/10/25 09:37) Medications ?Medication ?Instructions ?Recorded ?Confirmed ?Type melatonin 3 mg tablet 3 mg PO QHS PRN sleep 03/10/25 History ascorbate calcium (vitamin C) 500 500 mg PO QDAY 02/0103/10/25 History mg tablet cholecalciferol (vitamin D3) 125 125 mcg PO QDAY 02/0103/10/25 History mcg (5,000 unit) capsule omega-3 fatty acids-fish oil 300 1 cap PO DAILY 03/10/25 History mg-500 mg capsule (Fish Oil) metoprolol tartrate 50 mg tablet 50 mg PO DAILY 03/10/25 History sennosides 8.6 mg capsule (senna) 8.6 mg PO DAILY PRN constipation 5 02/14/25 03/10/25 Rx days #5 caps selenium sulfide 1 % shampoo 5 ml topical 2XW 02/16/25 03/10/25 History (Dandruff Shampoo (selenium sulfide)) allopurinol 300 mg tablet 300 mg PO QDAY #30 tabs 06/2603/10/25 Rx magnesium 250 mg tablet 133 mg PO DAILY 03/02/2502/24 History dexamethasone 4 mg tablet 8 mg (2 x 4 mg) PO QDAY #14 tabs 03/04/25 03/10/25 Rx ondansetron 8 mg disintegrating 8 mg PO Q12H PRN nause a and 03/10/25 03/10/25 Rx tablet vomiting #30 tabs prednisone 50 mg tablet 100 mg (2 x 50 mg) PO QDAY 5 days 03/10/25 03/10/25 Rx #10 tabs Have you fallen in the past year?: No Central Venous Access Central Venous Access: No 03/08/2025 PET/cT reviewed. 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 Extensive involvement also of the left chest wall is seen, mostly abutting the ribs, but also extending into the adjacent intercostal muscles. Nearly all areas are contiguous. Other: [id number] sigmoid diverticulosis. Please note the low-dose CT scan was performed to facilitate PET image reconstruction and anatomic localization and does not replace a diagnostic CT. Any diagnostic CT requested and performed at the time of the PET will be reported separately. Exam Physical Exam Narrative PS 2 Const alert, oriented x3 and no apparent distress HEENT normocephalic, external ears normal and external nose normal Eyes PERRL, EOMs intact bilaterally, conjunctivae normal and no scleral icterus Neck no lymphadenopathy Lymph Lymphatic: no lymphadenopathy noted Chest Chest Narrative: +L thoracotomy scar Resp clear to auscultation bilaterally Cardio regular rate, regular rhythm, S1 normal heart sound and S2 normal heart sound GI soft to palpation, non-tender and non-distended; Negative for hepatosplenomegaly Back/Spine no CVA tenderness and thoracic and lumbar spine normal to inspection Extremity no clubbing, cyanosis or edema Skin no rashes or lesions noted Neuro oriented x3, CN's II-XII intact bilaterally and moves all extremities Psych mental status grossly normal Coding Level of Care Code Off vis,est,level 5 Exam Problem Focused Diagnoses Diffuse large B-cell lymphoma of lymph nodes of multiple regions C83.38 Lymphoma site: multiple regions Hypercalcemia of malignancy E83.52 Chemotherapy management, encounter for Z51.11 Encounter for monoclonal antibody treatment for malignancy Z51.12 Assessment and Plan Assessment and Plan (1) 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 Qualifiers: Lymphoma site: multiple regions Qualified Code(s): C83.38 - Diffuse large B-cell lymphoma, lymph nodes of multiple sites Comment: DLBCL in mediastinum, L pleural space, R pelvic node-stage IV L pleural effusion, localized bone infiltration. EF 65%. HIV negative. Discussed disease status, Chemotherapy and Monoclonal antibody therapy, risks, benefit and side effects. Pt wants to proceed. Plan: To proceed with C1 R-Mini CHOP today. Will use Prednisone 100mg PO d1-5. Check Hepatitis B and C profile. (2) Hypercalcemia of malignancy: Status: Acute Comment: Due to DLBCL. Plan: To do IV NS and Lasix as needed. To start therapy for DLBCL. (3) Chemotherapy management, encounter for: Status: Acute Comment: Count and chemistry reviewed okay for therapy. Plan: To proceed with cycle 1 mini CHOP. (4) Encounter for monoclonal antibody treatment for malignancy: Status: Acute Comment: Counts and chemistry reviewed, HIV and hepatitis profile pending. Plan: To proceed with cycle 1 Rituxan analog. Orders: Orders Hepatitis B/C Profile VIII Today 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, intrapelvic lymph nodes CBC W/Diff, Automated 03/24/25 C83.30 - Diffuse large B-cell lymphoma, unspecified site, E83.52 - Hypercalcemia, Z79.899 - Other correction (current) drug therapy Comprehensive Metabolic Profil 03/24/25 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,intrapelvic lymph nodes, E83.52 - Hypercalcemia, Z79.899 - Other correction (current) drug therapy LDH 03/24/25 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, intrapelvic lymph nodes, E83.52 - Hypercalcemia, Z79.899 - Other intermediate school teacher (current) drug therapy Uric Acid 03/24/25 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, intrapelvic lymph nodes, E83.52 - Hypercalcemia, Z79.899 - Other correction (current) drug therapy HIV Today 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, intrapelvic lymph nodes, D50.9 - Iron deficiency anemia, unspecified, E83.52 - Hypercalcemia Referrals General Surgery 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, intrapelvic lymph nodes Medications: New prednisone 100 mg (2 x 50 mg) PO QDAY 10 tabs 0RF 5 days ondansetron 8 mg PO Q12H PRN 30 tabs 0RF nausea and vomiting Plan Details Follow Up: 2 Weeks Clinical Quality Measures Falls Risk Screening/Assistive Devices Have you fallen in the past year?: No 03/10/25 5353 <Electronically signed by Parrish Gavin> Date _ Parrish Miranda MD [facility] Signature: Date (if applicable) CC: Dr. Harry Gutierrez MD; Dr. Michelet Good DO ~ [facility] Work Phone: Reason for referral (narrative)No reason for referral information availableWChildren's [facility] for [facility] Work Phone: Reason for visit Narrative* Auth/Cert (Routine) Specialty Diagnoses / Procedures Referred By Contac t Referred To Contact Diagnoses Other diseases of mediastinum, not elsewhere classified Procedures NV THORACOSCOPY W/LOBECTOMY SINGLE LOBE NV MEDIASTINOSCOPY INCLUDES MEDIASTINAL MASS BIOPSY LEFT VIDEO-ASSISTED THORACOSCOPIC SURGERY MEDIASTINOSCOPY WITH BIOPSY Freddy Contreras DO [address] [place] [address] Phone: tel: fax: Referral ID Status Reason Start Date Expiration Date Visits Re quested Visits Authorized [id number] 02/01/[address] [facility] Health Summary Purpose Family History Relationship Condition Age at Onset Recorded Date/T jose Not Specified Malignant neoplasm of throat Unknown brother Malignant neoplasm Unknown Epilepsy Unknown Glaucoma Unknown father Glaucoma Unknown No Family History Records Found Advance Directives No Advanced Directives Records Found Advance Directive Response Recorded Date/ Time Do you have a Healthcare Power of Mechanical Service Representative? No January 18, 2025 5:17am Advance Directive Response Recorded Date/ Time Do you have a Healthcare Power of Mechanical Service Representative? No January 18, 2025 12:07pm Date Activated Date Inactivated Comments 02/08/2025 1:30 PM 02/10/2025 3:35 PM Advance Directive Response Recorded Date/ Time Do you have a Healthcare Pow er of Mechanical Service Representative? No January 18, 2025 12:07pm Do you have a Healthcare Pow er of Mechanical Service Representative? Yes February 14, 2025 7:12am Name of Medical Power of Mechanical Service Representative VARSHA CHAUHAN R- February 14, 2025 7:12am Date Activated Date Inactivated Comments 02/08/2025 1:30 PM 02/10/2025 3:35 PM Advance Directive Response Recorded Date/ Time Do you have a Healthcare Pow er of Mechanical Service Representative? No January 18, 2025 12:07pm Do you have a Healthcare Pow er of Mechanical Service Representative? Yes February 14, 2025 7:12am Name of Medical Power of Mechanical Service Representative VARSHA CHAUHAN R- February 14, 2025 7:12am Advance Directives on File Yes Octob er 2024 8:17am Living Will No March 14 8:17am Do you have a Healthcare Pow er of Mechanical Service Representative? Yes March 14, 2025 8:17am Name of Medical Power of Mechanical Service Representative March 14, 2025 8:17am Advance Directives No March 14, 2025 8:17am Chief Complaint and Reason for Visit Chief Complaint Admit Date New Lung Mass December 27, 2024 10:3 3am pleural effusion December 30, 2024 7:56 am Reason for Visit Admit Date Lung mass December 27, 2024 10:3 3am Pleural effusion December 27, 2024 10:3 3am Chief Complaint Admit Date New Lung Mass December 27, 2024 10:3 3am Chief Complaint Admit Date New Lung Mass December 27, 2024 10:3 3am pleural effusion December 30, 2024 7:56 am ACUTE KIDNEY INJURY, HYPERCALCEMIA Decus 2024 10:56am Reason for Visit Admit Date Lung mass December 27, 2024 10:3 3am Pleural effusion December 27, 2024 10:3 3am Acute kidney injury January 18, 2025 10 :56am Dyspnea January 18, 2025 10 :56am Hypercalcemia January 18, 2025 10 :56am Recurrent left pleural effusion December 312024 10:56am Chief Complaint Admit Date New Lung Mass December 27, 2024 10:3 3am pleural effusion December 30, 2024 7:56 am ACUTE KIDNEY INJURY, HYPERCALCEMIA Augus t 2024 10:56am ACUTE KIDNEY INJURY, HYPERCALCEMIA Augus t 2024 6:59pm ACUTE KIDNEY INJURY, HYPERCALCEMIA Augus t 2024 6:01pm ACUTE KIDNEY INJURY, HYPERCALCEMIA Augus t 2024 6:25pm Chief Complaint Admit Date New Lung Mass December 27, 2024 10:3 3am pleural effusion December 30, 2024 7:56 am ACUTE KIDNEY INJURY, HYPERCALCEMIA Augus 2024 10:56am ACUTE KIDNEY INJURY, HYPERCALCEMIA Augus t 2024 6:59pm ACUTE KIDNEY INJURY, HYPERCALCEMIA Augus t 2024 6:01pm ACUTE KIDNEY INJURY, HYPERCALCEMIA Augus t 2024 6:25pm ACUTE KIDNEY INJURY, HYPERCALCEMIA Augus 2024 3:59pm 1 M FU February 01, 2025 8:38am Reason for Visit Admit Date Lung mass December 27, 2024 10:3 3am Pleural effusion December 27, 2024 10:3 3am Acute kidney injury January 18, 2025 10 :56am Dyspnea January 18, 2025 10 :56am Hypercalcemia January 18, 2025 10 :56am Recurrent left pleural effusion December [id number] 10:56am Lung mass February 01, 2025 8:38am Pleural effusion February 01, 2025 8:38am Chief Complaint Admit Date New Lung Mass December 27, 2024 10:3 3am pleural effusion December 30, 2024 7:56 am ACUTE KIDNEY INJURY, HYPERCALCEMIA Augus 2024 10:56am ACUTE KIDNEY INJURY, HYPERCALCEMIA Augus 2024 6:59pm ACUTE KIDNEY INJURY, HYPERCALCEMIA Augus t 2024 6:01pm ACUTE KIDNEY INJURY, HYPERCALCEMIA Augus t 2024 6:25pm ACUTE KIDNEY INJURY, HYPERCALCEMIA Augus 2024 3:59pm 1 M FU February 01, 2025 8:38am ZOMETA February 04, 2025 11:19am Chief Complaint Admit Date New Lung Mass December 27, 2024 10:3 3am pleural effusion December 30, 2024 7:56 am ACUTE KIDNEY INJURY, HYPERCALCEMIA Augus t 2024 10:56am ACUTE KIDNEY INJURY, HYPERCALCEMIA Augus t 2024 6:59pm ACUTE KIDNEY INJURY, HYPERCALCEMIA Augus t 2024 6:01pm ACUTE KIDNEY INJURY, HYPERCALCEMIA Augus t 2024 6:25pm ACUTE KIDNEY INJURY, HYPERCALCEMIA Augus t 22nd, 2025 3:59pm 1 M FU February 01, 2025 8:38am ZOMETA February 04, 2025 11:19am constipation February 14, 2025 7:00am Chief Complaint Admit Date New Lung Mass December 27, 2024 10:3 3am pleural effusion December 30, 2024 7:56 am ACUTE KIDNEY INJURY, HYPERCALCEMIA Augus t 2024 10:56am ACUTE KIDNEY INJURY, HYPERCALCEMIA Augus t 2024 6:59pm ACUTE KIDNEY INJURY, HYPERCALCEMIA Augus t 2024 6:01pm ACUTE KIDNEY INJURY, HYPERCALCEMIA Augus t 2024 6:25pm ACUTE KIDNEY INJURY, HYPERCALCEMIA Augus t 2024 3:59pm 1 M FU February 01, 2025 8:38am ZOMETA February 04, 2025 11:19am constipation February 14, 2025 7:00am LAB February 15, 2025 10:52am Chief Complaint Admit Date New Lung Mass December 27, 2024 10:3 3am pleural effusion December 30, 2024 7:56 am ACUTE KIDNEY INJURY, HYPERCALCEMIA Augus t 2024 10:56am ACUTE KIDNEY INJURY, HYPERCALCEMIA Augus t 2024 6:59pm ACUTE KIDNEY INJURY, HYPERCALCEMIA Augus t 2024 6:01pm ACUTE KIDNEY INJURY, HYPERCALCEMIA Augus t 2024 6:25pm ACUTE KIDNEY INJURY, HYPERCALCEMIA Augus t 2024 3:59pm 1 M FU February 01, 2025 8:38am ZOMETA February 04, 2025 11:19am constipation February 14, 2025 7:00am LAB February 15, 2025 10:52am MALIGNANT NEOPLASM OF THORAX NEED [facility] March 02, 2025 9:45am MED ONC March 02, 2025 11 :05am Reason for Visit Admit Date Lung mass December 27, 2024 10:3 3am Pleural effusion December 27, 2024 10:3 3am Acute kidney injury January 18, 2025 10 :56am Dyspnea January 18, 2025 10 :56am Hypercalcemia January 18, 2025 10 :56am Recurrent left pleural effusion December [id number] 10:56am Lung mass February 01, 2025 8:38am Pleural effusion February 01, 2025 8:38am DLBCL (diffuse large B cell lymphoma) Oc tober 2024 9:45am Hypercalcemia of malignancy March 02, 2025 9:45am Iron deficiency anemia March 02, 2025 9:45am Chief Complaint Admit Date New Lung Mass December 27, 2024 10:3 3am pleural effusion December 30, 2024 7:56 am ACUTE KIDNEY INJURY, HYPERCALCEMIA Augus t 2024 10:56am ACUTE KIDNEY INJURY, HYPERCALCEMIA Augus t 2024 6:59pm ACUTE KIDNEY INJURY, HYPERCALCEMIA Augus t 2024 6:01pm ACUTE KIDNEY INJURY, HYPERCALCEMIA Augus t 2024 6:25pm ACUTE KIDNEY INJURY, HYPERCALCEMIA Augus t 2024 3:59pm 1 M FU February 01, 2025 8:38am ZOMETA February 04, 2025 11:19am constipation February 14, 2025 7:00am LAB February 15, 2025 10:52am MALIGNANT NEOPLASM OF THORAX NEED [facility] March 02, 2025 9:45am LUNG CA CHEMO March 03, 2025 10 :14am 1WK LABS REVIEW ECHO/PET CHEMO? March 10, 2025 9:19am LABS WITH IV START March 14, 2025 7 :30am 1 WK, LABS FLUID? March 14, 2025 8 :18am Reason for Visit Admit Date Lung mass December 27, 2024 10:3 3am Pleural effusion December 27, 2024 10:3 3am Acute kidney injury January 18, 2025 10 :56am Dyspnea January 18, 2025 10 :56am Hypercalcemia January 18, 2025 10 :56am Recurrent left pleural effusion December [id number] 10:56am Lung mass February 01, 2025 8:38am Pleural effusion February 01, 2025 8:38am Hypercalcemia of malignancy March 02, 2025 9:45am Iron deficiency anemia March 02, 2025 9:45am DLBCL (diffuse large B cell lymphoma) Oc tober 2024 9:45am Chemotherapy management, encounter for O ctober 2024 9:19am Encounter for monoclonal antibody treatm ent for malignancy March 10, 2025 9:19am Hypercalcemia of malignancy March 10, 2025 9:19am DLBCL (diffuse large B cell lymphoma) Oc tober 2024 9:19am Hypercalcemia of malignancy March 8:18am Leukemoid reaction March 14, 2025 8 :18am DLBCL (diffuse large B cell lymphoma) Oc tober 2024 8:18am Additional Source Comments Patient Care team informatio n (unrecognized section and content) Team Status: Active Member Role/Relationship Status Dates Dr. Michelet Good DO Family Provider Active Dr. Michelet Good DO Primary Care Provider Active Team Status: Inactive Member Role/Relationship Status Dates Dr. Michelet Good DO Primary Care Provider Active Start: December 02, 2024 End: December 02, 2024 Dr. Michelet Good DO Attending Provider Active Start: December 02, 2024 End: December 02, 2024 Team Status: Inactive Member Role/Relationship Status Dates Dr. Michelet Good DO Primary Care Provider Active Start: December 27, 2024 End: December 27, 2024 Dr. Michelet Good DO Referring Provider Active Start: December 27, 2024 End: December 27, 2024 Dr. Domenico Garcia DO Attending Provider Active S tart: December 27, 2024 End: December 27, 2024 Team Status: Active Member Role/Relationship Status Dates Dr. Michelet Good DO Primary Care Provider Active Start: December 27, 2024 Dr. Domenico Garcia DO Attending Provider Active S tart: December 27, 2024 Dr. Domenico Garcia DO Referring Provider Active S tart: December 27, 2024 Team Status: Active Member Role/Relationship Status Dates Dr. Michelet Good DO Primary Care Provider Active Team Status: Inactive Member Role/Relationship Status Dates Dr. Michelet Good DO Primary Care Provider Active Start: December 27, 2024 End: December 27, 2024 Dr. Domenico Garcia DO Attending Provider Active S tart: December 27, 2024 End: December 27, 2024 Dr. Domenico Garcia DO Referring Provider Active S tart: December 27, 2024 End: December 27, 2024 Team Status: Active Member Role/Relationship Status Dates Dr. Michelet Good DO Primary Care Provider Active Start: December 30, 2024 Dr. Domenico Garcia DO Attending Provider Active S tart: December 30, 2024 Dr. Domenico Garcia Referring Provider Active S tart: December 30, 2024 Systems Trainer Relationship Specialty Start Date End Date Michelet Good Elena [address] [place] [id number] PCP - General Family Medicine 12/28/24 Team Status: Inactive Member Role/Relationship Status Dates Dr. Michelet Good DO Primary Care Provider Active Start: December 30, 2024 End: December 30, 2024 Dr. Domenico Garcia , Attending Provider Active S tart: December 30, 2024 End: December 30, 2024 Dr. Domenico Garcia , Referring Provider Active S tart: December 30, 2024 End: December 30, 2024 Team Status: Active Member Role/Relationship Status Dates Dr. Michelet Good DO Primary Care Provider Active Start: January 18, 2025 Dr. Kenrick Ott , Emergency Provider Active Start: January 18, 2025 Dr. Michelet Donovan , Admit Provider Active S tart: January 18, 2025 Dr. Michelet Donovan DO Attending Provider Active Start: January 18, 2025 Team Status: Inactive Member Role/Relationship Status Dates Dr. Michelet Good DO Primary Care Provider Active Start: January 18, 2025 End: January 21, 2025 Dr. Kenrick Ott , Emergency Provider Active Start: January 18, 2025 End: January 21, 2025 Dr. Michelet Donovan , Admit Provider Active S tart: January 18, 2025 End: January 21, 2025 Dr. Michelet Donovan DO Attending Provider Active Start: January 18, 2025 End: January 21, 2025 Dr. Harry Gutierrez MD Other Provider Active Start: January 18, 2025 End: January 21, 2025 Team Status: Active Member Role/Relationship Status Dates Dr. Michelet Good DO Primary Care Provider Active Start: January 18, 2025 Dr. Kenrick Ott , Emergency Provider Active Start: January 18, 2025 Dr. Michelet Donovan , Admit Provider Active S tart: January 18, 2025 Dr. Michelet Donovan DO Attending Provider Active Start: January 18, 2025 Dr. Michelet Donovan , DO Other Provider Active S tart: January 18, 2025 Dr. Harry Gutierrez MD Other Provider Active Start: January 18, 2025 Team Status: Active Member Role/Relationship Status Dates Dr. Michelet Good DO Primary Care Provider Active Start: January 19, 2025 Dr. Kenrick Ott , DO Emergency Provider Active Start: January 19, 2025 Dr. Michelet Donovan , Admit Provider Active S tart: January 19, 2025 Dr. Michelet Donovan DO Attending Provider Active Start: January 19, 2025 Dr. Michelet Donovan , DO Other Provider Active S tart: January 19, 2025 Dr. Harry Gutierrez MD Other Provider Active Start: January 19, 2025 Team Status: Active Member Role/Relationship Status Dates Dr. Michelet Good DO Primary Care Provider Active Start: January 20, 2025 Dr. Kenrick Ott , DO Emergency Provider Active Start: January 20, 2025 Dr. Michelet Donovan DO Admit Provider Active S tart: January 20, 2025 Dr. Michelet Donovan DO Attending Provider Active Start: January 20, 2025 Dr. Michelet Donovan DO Other Provider Active S tart: January 20, 2025 Dr. Harry Gutierrez MD Other Provider Active Start: January 20, 2025 Team Status: Active Member Role/Relationship Status Dates Dr. Michelet Good DO Primary Care Provider Active Start: January 21, 2025 Dr. Kenrick Ott DO Emergency Provider Active Start: January 21, 2025 Dr. Michelet Donovan DO Admit Provider Active S tart: January 21, 2025 Dr. Michelet Donovan DO Attending Provider Active Start: January 21, 2025 Dr. Michelet Donovan DO Other Provider Active S tart: January 21, 2025 Dr. Harry Gutierrez MD Other Provider Active Start: January 21, 2025 Team Status: Inactive Member Role/Relationship Status Dates Dr. Michelet Good DO Primary Care Provider Active Start: February 01, 2025 End: February 01, 2025 Dr. Michelet Good DO Referring Provider Active Start: February 01, 2025 End: February 01, 2025 Nanette Connolly , [employer] Attending Provider Active Start: February 01, 2025 End: February 01, 2025 Systems Trainer Relationship Specialty Start Date End Date Michelet Good [address] [place] [phone] PCP - General Family Medicine 12/28/24 Team Status: Active Member Role/Relationship Status Dates Dr. Michelet Good DO Primary Care Provider Active Start: February 02, 2025 Dr. Michelet Good DO Attending Provider Active Start: February 02, 2025 Team Status: Inactive Member Role/Relationship Status Dates Dr. Michelet Good DO Primary Care Provider Active Start: February 04, 2025 End: February 04, 2025 Dr. Michelet Good DO Attending Provider Active Start: February 04, 2025 End: February 04, 2025 Dr. Michelet Good DO Referring Provider Active Start: February 04, 2025 End: February 04, 2025 Systems Trainer Relationship Specialty Start Date End Date Michelet Good [address] [place] [phone] PCP - [facility] Medicine 12/28/24 Team Status: Inactive Member Role/Relationship Status Dates Dr. Michelet Good DO Primary Care Provider Active Start: February 14, 2025 End: February 14, 2025 Dr. Ed Parada DO Emergency Provider Active Start: January End: February 14, 2025 Systems Trainer Relationship Specialty Start Date End Date Michelet Good [address] [place] [phone] PCP - [facility] Medicine 12/28/24 Team Status: Active Member Role/Relationship Status Dates Dr. Michelet Good DO Primary care physician Active Team Status: Inactive Member Role/Relationship Status Dates Dr. Michelet Good DO Primary care physician Active Start: December 02, 2024 End: December 02, 2024 Dr. Michelet Good DO Attending physician Active Start: December 02, 2024 End: December 02, 2024 Team Status: Inactive Member Role/Relationship Status Dates Dr. Michelet Good DO Primary care physician Active Start: December 27, 2024 End: December 27, 2024 Dr. Michelet Good DO Referring Provider Active Start: December 27, 2024 End: December 27, 2024 Dr. Domenico Garcia , Attending physician Active Start: December 27, 2024 End: December 27, 2024 Team Status: Inactive Member Role/Relationship Status Dates Dr. Michelet Good DO Primary care physician Active Start: December 27, 2024 End: December 27, 2024 Dr. Domenico Garcia DO Attending physician Active Start: December 27, 2024 End: December 27, 2024 Dr. Domenico Garcia , Referring Provider Active S tart: December 27, 2024 End: December 27, 2024 Team Status: Inactive Member Role/Relationship Status Dates Dr. Michelet Good DO Primary care physician Active Start: December 30, 2024 End: December 30, 2024 Dr. Domenico Garcia DO Attending physician Active Start: December 30, 2024 End: December 30, 2024 Dr. Domenico Garcia , Referring Provider Active S tart: December 30, 2024 End: December 30, 2024 Team Status: Inactive Member Role/Relationship Status Dates Dr. Michelet Good DO Primary care physician Active Start: January 18, 2025 End: January 21, 2025 Dr. Kenrick Ott , Emergency Departm ent Physician Active Start: January 18, 2025 End: January 21, 2025 Dr. Michelet Donovan , Admitting physician Active Start: January 18, 2025 End: January 21, 2025 Dr. Michelet Donovan , Attending physician Active Start: January 18, 2025 End: January 21, 2025 Dr. Harry Gutierrez MD Nurse Practitioner Active Start: January 18, 2025 End: January 21, 2025 Team Status: Active Member Role/Relationship Status Dates Dr. Michelet oGod DO Primary care physician Active Start: January 18, 2025 Dr. Kenrick Ott , DO Emergency Departm ent Physician Active Start: January 18, 2025 Dr. Michelet Donovan , DO Admitting physician Active Start: January 18, 2025 Dr. Michelet Donovan , DO Attending physician Active Start: January 18, 2025 Dr. Michelet Donovan , DO Nurse Practitioner Active Start: January 18, 2025 Dr. Harry Gutierrez MD Nurse Practitioner Active Start: January 18, 2025 Team Status: Active Member Role/Relationship Status Dates Dr. Michelet Good , DO Primary care physician Active Start: January 19, 2025 Dr. Kenrick Ott , DO Emergency Departm ent Physician Active Start: January 19, 2025 Dr. Michelet Donovan , DO Admitting physician Active Start: January 19, 2025 Dr. Michelet Donovan , DO Attending physician Active Start: January 19, 2025 Dr. Michelet Donovan , DO Nurse Practitioner Active Start: January 19, 2025 Dr. Harry Gutierrez MD Nurse Practitioner Active Start: January 19, 2025 Team Status: Active Member Role/Relationship Status Dates Dr. Michelet Good , DO Primary care physician Active Start: January 20, 2025 Dr. Kenrick Ott , DO Emergency Departm ent Physician Active Start: January 20, 2025 Dr. Michelet Donovan , Admitting physician Active Start: January 20, 2025 Dr. Michelet Donovan , Attending physician Active Start: January 20, 2025 Dr. Michelet Donovan , Nurse Practitioner Active Start: January 20, 2025 Dr. Harry Gutierrez MD Nurse Practitioner Active Start: January 20, 2025 Team Status: Active Member Role/Relationship Status Dates Dr. Michelet Good , Primary care physician Active Start: January 21, 2025 Dr. Kenrick Ott , DO Emergency Departm ent Physician Active Start: January 21, 2025 Dr. Michelet Donovan , Admitting physician Active Start: January 21, 2025 Dr. Michelet Donovan , DO Attending physician Active Start: January 21, 2025 Dr. Michelet Donovan , DO Nurse Practitioner Active Start: January 21, 2025 Dr. Harry Gutierrez MD Nurse Practitioner Active Start: January 21, 2025 Team Status: Inactive Member Role/Relationship Status Dates Dr. Michelet Good , DO Primary care physician Active Start: February 01, 2025 End: February 01, 2025 Dr. Michelet Good DO Referring Provider Active Start: February 01, 2025 End: February 01, 2025 GIRMA Garcia Attending physician Active Start: February 01, 2025 End: February 01, 2025 Team Status: Inactive Member Role/Relationship Status Dates Dr. Michelet Good DO Primary care physician Active Start: February 02, 2025 End: February 02, 2025 Dr. Michelet Good DO Attending physician Active Start: February 02, 2025 End: February 02, 2025 Team Status: Inactive Member Role/Relationship Status Dates Dr. Michelet Good DO Primary care physician Active Start: February 04, 2025 End: February 04, 2025 Dr. Michelet Good DO Attending physician Active Start: February 04, 2025 End: February 04, 2025 Dr. Michelet Good DO Referring Provider Active Start: February 04, 2025 End: February 04, 2025 Team Status: Inactive Member Role/Relationship Status Dates Dr. Michelet Good DO Primary care physician Active Start: February 14, 2025 End: February 14, 2025 Dr. Ed Parada DO Attending physician Active Start: January End: February 14, 2025 Dr. Ed Parada DO Emergency Department Physician Active Start: February 14, 2025 End: February 14, 2025 Team Status: Inactive Member Role/Relationship Status Dates Dr. Michelet Good DO Primary care physician Active Start: February 15, 2025 End: February 15, 2025 Dr. Michelet Good DO Attending physician Active Start: February 15, 2025 End: February 15, 2025 Team Status: Inactive Member Role/Relationship Status Dates Dr. Michelet Good DO Primary care physician Active Start: March 02, 2025 End: March 02, 2025 Dr. Michelet Good DO Referring Provider Active Start: March 02, 2025 End: March 02, 2025 Dr. Parrish Miranda MD Attending physician Active Start: March 02, 2025 End: March 02, 2025 Team Status: Active Member Role/Relationship Status Dates Dr. Michelet Good DO Primary care physician Active Start: March 02, 2025 Dr. Parrish Miranda MD Attending physician Active Start: March 02, 2025 Dr. Parrish Miranda MD Referring Provider Active S tart: March 02, 2025 Team Status: Active Member Role/Relationship Status Dates Dr. Michelet Good DO Primary care physician Active Start: March 03, 2025 Dr. Parrish Miranda MD Attending physician Active Start: March 03, 2025 Dr. Parrish Miranda MD Referring Provider Active S tart: March 03, 2025 Team Status: Active Member Role/Relationship Status Dates Dr. Michelet Good DO Primary care physician Active Start: March 03, 2025 Dr. Sahil Stewart MD Attending physician Active Start: March 03, 2025 Team Status: Inactive Member Role/Relationship Status Dates Dr. Michelet Good DO Primary care physician Active Start: March 10, 2025 End: March 10, 2025 Dr. Michelet Good DO Referring Provider Active Start: March 10, 2025 End: March 10, 2025 Dr. Parrish Miranda MD Attending physician Active Start: March 10, 2025 End: March 10, 2025 Team Status: Active Member Role/Relationship Status Dates Dr. Michelet Good DO Primary care physician Active Start: March 14, 2025 Dr. Parrish Miranda MD Attending physician Active Start: March 14, 2025 Dr. Parrish Miranda MD Referring Provider Active S tart: March 14, 2025 Team Status: Inactive Member Role/Relationship Status Dates Dr. Michelet Good DO Primary care physician Active Start: March 14, 2025 End: March 14, 2025 Dr. Michelet Good DO Referring Provider Active Start: March 14, 2025 End: March 14, 2025 Dr. Parrish Miranda MD Attending physician Active Start: March 14, 2025 End: March 14, 2025 Goals (unrecognized section and content) Goals may be documented in a n alternate section (unrecognized sect ion and content) No Status Records FoundNo Status Records FoundNo Status Records FoundNo Status Records Found INFORMATION SOURCE (unrecogn ized section and content) DATE CREATED AUTHOR 12/24/2024 [facility] DATE CREATED AUTHOR AUTHOR'S ORGANIZ ATION 01/21/2025 [facility] DATE CREATED AUTHOR AUTHOR'S ORGANIZ ATION 03/07/2025 [facility] DATE CREATED AUTHOR AUTHOR'S ORGANIZ ATION 03/21/2025 [facility] Reason for Visit (unrecogniz ed section and content) Reason Comments New Patient Specialty Diagnoses / Procedures Referred By Contact Referred To Contact Cardiothoracic Surgery Diagnoses Other nonspecific abnormal finding of lung field Procedures NV OFFICE/OUTPATIENT NEW HIGH MDM 60 MINUTES Domenico Garcia [address] [place] [address] Phone: tel:[phone] fax:[phone] [facility] Cardiovascular Thoracic Surgery - [place] [address] [place] [address] Phone: tel: fax: Referral ID Status Reason Start Date Expiration Date Visits Re quested Visits Authorized [id number] Closed 12/28/2024 12/28/2025 1 1 Reason Comments Post-op Scheduled Active and Recently Administ ered Medications (unrecognized section and content) Medication Order 02/08/2025 02/09/2025 02/10/2025 acetaminophen (Tylenol) tablet 1,000 mg (COMPLETED) 1,000 mg, Oral, Once, On Fri02/08/25 at 0615, For 1 dose, Preprocedure, Administer 60 minutes prior to surgery. 0610 (Given - Provider: Lyndon Juarez RN) acetaminophen (Tylenol) tablet 1,000 mg 1,000 mg, Oral, Every 8 hours scheduled (3 times per day), First dose on Fri02/08/25 at 1400, Phase II/On Unit, Maximum dose of acetaminophen is 4000 mg from all sources in 24 hours. 1336 (Given - Provider: Frieda Olvera, RN)2146 (Given - Provider: Siena Means, RN) 0524 (Given - Provider: Siena Means, RN)1549 (Given - Provider: Francis Apple RN)2124 (Given - Provider: Siena Means, RN) 0622 (Given - Provider: Joi Parra RN)1400 (Canceled Entry - Provider: Automatic Discharge Provider - Comment: Automatically canceled at discontinue of medication order) famotidine (Pepcid) tablet 20 mg (COMPLETED)(Linked Group 1) 20 mg, Oral, Once, On Fri02/08/25 at 0615, For 1 dose, Preprocedure, IV or Oral 0610 (Given - Provider: Lyndon Juarez RN) ipratropium-albuterol (Duo-Neb) 0.5-2.5 mg/3 mL nebulizer solution 3 mL (CANCELED) 3 mL, Nebulization, 3 times daily, First dose (after last modification) on Fri02/08/25 at 1615, Phase II/On Unit 1658 (Not Given - Provider: RUDDY LopezP - Reason: Patient not available)2022 (Given - Provider: Jessica Phillips, HELICOPTER MECHANIC) 0813 (Given - Provider: Gabrielle Jiménez, HELICOPTER MECHANIC)1400 (Not Given - Provider: Gabrielle Jiménez, HELICOPTER MECHANIC - Reason: Other - Comment: physician pulling chest tube and asked that this tx be held and to resume when the next one is due)1823 (Given - Provider: Sasha De La Paz) 0852 (Given - Provider: Jennifer Berger, HELICOPTER MECHANIC) ipratropium-albuterol (Duo-Neb) 0.5-2.5 mg/3 mL nebulizer solution 3 mL 3 mL, Nebulization, 2 times daily, First dose (after last modification) on Sherine 02/10/25 at 2000, Phase II/On Unit mupirocin (Bactroban) 2 % ointment Nasal, 2 times daily, First dose on Fri02/09/25 at 0900, For 5 days 0815 (Given - Provider: Francis Apple, CHRISTINE)2123 (Given - Provider: Siena Means, CHRISTINE) 0834 (Given - Provider: Ollie Velarde, CHRISTINE) Continuous Medication Order 02/08/2025 02/09/2025 02/10/2025 lactated Ringer's (LR) infusion (CANCELED) 50 mL/hr, IntraVENous, Continuous, Starting on Fri02/08/25 at 0615, Preprocedure, Upon admission to sameday - please start iv if patient does not have iv access. Use 500ml NS for patients on dialysis. 0610 (New Bag - Provider: Lyndon Juarez RN)0731 (Paused - Provider: Yury Montoya CRNA - Comment: Switch to gravity)0732 (Restarted - Provider: Yury Montoya CRNA)0755 (Canceled Entry - Provider: Yury oMntoya CRNA - Comment: Switch to gravity)0756 (Canceled Entry - Provider: Yury Montoya CRNA)1208 (Stopped - Provider: Yury Montoya CRNA) lactated Ringer's (LR) infusion () 50 mL/hr, IntraVENous, Continuous, Starting on Fri02/08/25 at 1345, For 6 hours, Phase II/On Unit 1331 (New Bag - Provider: Frieda Olvera RN)2044 (Stopped - Provider: Siena Means RN - Comment: [Order ends at this time. Document the following action when infusion is complete: Stopped]) PRN Medication Order 02/08/2025 02/09/2025 02/10/2025 HYDROmorphone (Dilaudid) injection 0.5 mg (CANCELED) 0.5 mg, IntraVENous, Every 5 min PRN, severe pain (7-10), Starting on Fri02/08/25 at 1220, For 4 doses, Recovery (only), Phase I and Phase II- Initial therapy for severe pain (7-10). Restricted to a 90 minute time frame starting when the patient can verbally state their pain score. If after 2 doses the pain score does not decrease by more than one point, then call the provider. If oral meds are utilized, do not return to initial therapy medications. 1235 (Given - Provider: Nina Guzman RN) HYDROmorphone (Dilaudid) injection 0.5 mg 0.5 mg, IntraVENous, Every 3 hours PRN, breakthrough pain, Starting on Fri02/08/25 at 1330, Phase II/On Unit, If oral and IV narcotics ordered, use oral first and only use IV if oral is ineffective or cannot take oral. Do Not give oral and IV within 1 hour of each other unless specifically ordered. melatonin tablet 3 mg 3 mg, Oral, Nightly PRN, sleep, Starting on Fri02/09/25 at 2011 2123 (Given - Provider: Siena Means RN) naloxone (Narcan) injection 0.4 mg 0.4 mg, IntraVENous, Every 5 min PRN, opioid reversal, respiratory depression, Starting on Fri02/08/25 at 1331, +++ For RR <10, pinpoint pupils, over sedation for opioid reversal - MUST notify refrigeration operator provider immediately after first dose, may give IM or SQ if no IV access +++ ondansetron (Zofran) injection 4 mg(Linked Group 2) 4 mg, IntraVENous, Every 6 hours PRN, nausea, vomiting, Starting on Fri02/08/25 at 1330, Phase II/On Unit, 1st Line. Give IV if patient is unable to take orally. If inadequate response within 60 minutes, proceed to next-line agent or contact provider if no further options ordered. ondansetron ODT (Zofran-ODT) disintegrating tablet 4 mg(Linked Group 2) 4 mg, Oral, Every 8 hours PRN, nausea, vomiting, Starting on Fri02/08/25 at 1330, Phase II/On Unit, 1st Line. If inadequate response within 60 minutes, proceed to next-line agent or contact provider if no further options ordered. Patient should allow tablet to dissolve on tongue. Do not remove from blister pack until just before administering. oxidized regenerated cellulose 2x14 (SURGICEL OG) hemostat fabric (CANCELED) As needed, Starting on Fri02/08/25 at 1033, Intraprocedure 1033 (Given - Provider: Freddy Contreras DO) oxyCODONE (Roxicodone) immediate release tablet 10 mg(Linked Group 3) 10 mg, Oral, Every 4 hours PRN, severe pain (7-10), Starting on Fri02/08/25 at 1330, Phase II/On Unit 2045 (See Alternative - Provider: Siena Means RN) 0524 (See Alternative - Provider: Siena Means RN)1106 (See Alternative - Provider: Francis Apple RN)1750 (See Alternative - Provider: Francis Longoria RN) 0106 (See Alternative - Provider: Siena Means RN)0622 (See Alternative - Provider: Joi Parra RN)1205 (See Alternative - Provider: Ollie Velarde RN) oxyCODONE (Roxicodone) immediate release tablet 5 mg(Linked Group 3) 5 mg, Oral, Every 4 hours PRN, moderate pain (4-6), Starting on Fri02/08/25 at 1330, Phase II/On Unit 2045 (Given - Provider: Siena Means RN) 0524 (Given - Provider: Siena Means RN)1106 (Given - Provider: Francis Apple, RN)1750 (Given - Provider: Francis Longoria, RN) 0106 (Given - Provider: Siena Means RN)0622 (Given - Provider: Joi Parra RN)1205 (Given - Provider: Ollie Velarde RN) promethazine (Phenergan) injection 25 mg(Linked Group 4) 25 mg, IntraMUSCular, Every 4 hours PRN, nausea, vomiting, Starting on Fri02/08/25 at 1330, Phase II/On Unit, 2nd Line. Give IM if patient is unable to take orally or receive rectally. Not for IV administration. If inadequate response within 60 minutes, proceed to next-line agent for same PRN reason or contact provider if no further options ordered. promethazine (Phenergan) suppository 25 mg(Linked Group 4) 25 mg, Rectal, Every 12 hours PRN, nausea, vomiting, Starting on Fri02/08/25 at 1330, Phase II/On Unit, 2nd Line. Give NV if patient is unable to take orally. If inadequate response within 60 minutes, proceed to next-line agent for same PRN reason or contact provider if no further options ordered. promethazine (Phenergan) tablet 25 mg(Linked Group 4) 25 mg, Oral, Every 6 hours PRN, nausea, vomiting, Starting on Fri02/08/25 at 1330, Phase II/On Unit, 2nd Line. If inadequate response within 60 minutes, proceed to next-line agent for same PRN reason or contact provider if no further options ordered. sodium chloride 0.9 % irrigation solution (CANCELED) As needed, Starting on Fri02/08/25 at 0808, Intraprocedure 0808 (Given - Provider: Freddy Contreras DO) sodium chloride 0.9 % irrigation solution (CANCELED) As needed, Starting on Fri02/08/25 at 0929, Intraprocedure 0929 (Given - Provider: Freddy Contreras DO) Talc powder (CANCELED) As needed, Starting on Fri02/08/25 at 0808, Intraprocedure 0808 (Given - Provider: Freddy Contreras DO) Linked Groups Order Group 1: famotidine (Pepcid) tablet 20 mg (COMPLETED)Jump to med 20 mg, Oral, Once, On Fri02/08/25 at 0615, For 1 dose, Preprocedure, IV or Oral Or famotidine (Pepcid) 20 mg in sodium chloride (PF) 0.9 % 10 mL injection (COMPLETED) 20 mg, IntraVENous, Administer over 2 Minutes, Once, On Fri02/08/25 at 0615, For 1 dose, Preprocedure, IV or Oral Group 2: ondansetron ODT (Zofran-ODT) disintegrating tablet 4 mgJump to med 4 mg, Oral, Every 8 hours PRN, nausea, vomiting, Starting on Fri02/08/25 at 1330, Phase II/On Unit, 1st Line. If inadequate response within 60 minutes, proceed to next-line agent or contact provider if no further options ordered. Patient should allow tablet to dissolve on tongue. Do not remove from blister pack until just before administering. Or ondansetron (Zofran) injection 4 mgJump to med 4 mg, IntraVENous, Every 6 hours PRN, nausea, vomiting, Starting on Fri02/08/25 at 1330, Phase II/On Unit, 1st Line. Give IV if patient is unable to take orally. If inadequate response within 60 minutes, proceed to next-line agent or contact provider if no further options ordered. Group 3: oxyCODONE (Roxicodone) immediate release tablet 5 mgJump to med 5 mg, Oral, Every 4 hours PRN, moderate pain (4-6), Starting on Fri02/08/25 at 1330, Phase II/On Unit Or oxyCODONE (Roxicodone) immediate release tablet 10 mgJump to med 10 mg, Oral, Every 4 hours PRN, severe pain (7-10), Starting on Fri02/08/25 at 1330, Phase II/On Unit Group 4: promethazine (Phenergan) tablet 25 mgJump to med 25 mg, Oral, Every 6 hours PRN, nausea, vomiting, Starting on Fri02/08/25 at 1330, Phase II/On Unit, 2nd Line. If inadequate response within 60 minutes, proceed to next-line agent for same PRN reason or contact provider if no further options ordered. Or promethazine (Phenergan) suppository 25 mgJump to med 25 mg, Rectal, Every 12 hours PRN, nausea, vomiting, Starting on Fri02/08/25 at 1330, Phase II/On Unit, 2nd Line. Give NV if patient is unable to take orally. If inadequate response within 60 minutes, proceed to next-line agent for same PRN reason or contact provider if no further options ordered. Or promethazine (Phenergan) injection 25 mgJump to med 25 mg, IntraMUSCular, Every 4 hours PRN, nausea, vomiting, Starting on Fri02/08/25 at 1330, Phase II/On Unit, 2nd Line. Give IM if patient is unable to take orally or receive rectally. Not for IV administration. If inadequate response within 60 minutes, proceed to next-line agent for same PRN reason or contact provider if no further options ordered. FOR RECORDS PERTAINING TO PATIENTS WHO ARE [...] BE BASED ON THE PRIMARY CLINICAL RECORDS. [employer] [facility]. provides no warranty or guarantee of the accuracy or completeness of information in this document.
--- NOTE | 2025-03-21 21:26 | EKG12_ITS ---
Test Reason : DYSRHYTHMIA Blood Pressure : */* mmHG Vent. Rate : 112 BPM Atrial Rate : 112 BPM P-R Int : 202 ms QRS Dur : 70 ms QT Int : 312 ms P-R-T Axes : 56 -1 87 degrees QTcB Int : 425 ms Sinus tachycardia Nonspecific T wave abnormality Abnormal ECG Confirmed by Elia Anderson ([id number]), makeup editor KIANNA ORTEGA ([id number]) on 03/22/2025 11:15:28 AM Referred By: Confirmed By: Elia Anderson
--- NOTE | 2025-03-21 21:37 | EX.ED.DYSGE1 ---
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 Patient follows with oncology, Dr. Miranda. History taken by patient as well as oncology note on 03/14/2025. Patient was started on Rituxan mini CHOP on 03/10/2025. States his next chemotherapy is not for several days. States yesterday developed fever that continued into today. Associated symptom is fatigue and decreased p.o. intake. He denies any URI symptoms, headache, shortness of breath, chest pain, abdominal pain, nausea, vomiting, diarrhea, constipation, dysuria. Review of systems: See HPI Medications: As listed on the chart Allergies: As listed on the chart PFSH: Per chart Vital signs: As listed on the chart. Reviewed. Physical exam: Gen: A&O x3, NAD Head: Normocephalic Eyes: No sclera icterus, conjunctiva clear ENT: TMs clear BL, mildly dry membranes, posterior oropharynx unremarkable, uvula midline, tonsils not enlarged, no tonsillar exudates Neck: Trachea midline, No JVD, Full ROM, No meningismus CV: tachycardic, regular rhythm, no murmurs, no peripheral edema Resp: Lungs CTA BL, no w/r/c GI: Abd soft, non-distended, non-tender, no r/r/g Musc: Full ROM, no deformity Skin: Warm, dry, no rash Neuro: Alert, oriented, grossly intact, sensation intact Psych: Cooperative, appropriate mood and affect [facility] Medical History Malignant neoplasm of thorax Vasovagal syncope Rheumatic fever Hypercalcemia Dyspnea Recurrent left pleural effusion Acute kidney injury Pleural effusion Lung mass Macular degeneration Home Medications ?Medication ?Instructions ?Recorded ?Last Taken ?Type sennosides 8.6 mg capsule (senna) 8.6 mg PO DAILY PRN constipation 5 02/14/25 Unknown Rx days #5 caps allopurinol 300 mg tablet 300 mg PO QDAY #30 tabs 03/02/25 Unknown Rx ondansetron 8 mg disintegrating 8 mg PO Q12H PRN nausea and 03/10/25 Unknown Rx tablet vomiting #30 tabs Allergy/AdvReac Type Severity Reaction Status Date / Time No Known Allergies Allergy Verified 03/21/25 19:02 Family History Brother Cancer throat Epilepsy Glaucoma Father Glaucoma Other Throat cancer Surgical History History of lung biopsy History of thoracentesis Social History household members: significant other current occupational status: retired 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 [employer] pets and animals: No history of recent travel: No Smoking Status: Never smoker alcohol intake: never substance use type: does not use caffeine: No what type of physical activity do you participate in: walking seatbelt use: always EXAM Physical Exam Const Vital Signs: 03/21/25 19:02 03/21/25 19:05 03/21/25 19:29 Temperature 99.8 F H 99.8 F H 101.3 F H Temperature Source Oral Oral Oral Pulse Rate 133 H 133 H Respiratory Rate 18 18 Respiratory Effort Respiratory Pattern Blood Pressure 148/75 H 148/75 H Blood Pressure Mean 99 99 Pulse Ox 95 95 Oxygen Delivery Method Nasal Cannula Room Air 03/21/25 19:29 03/21/25 20:00 03/21/25 20:05 Temperature 101.3 F H Temperature Source Oral Pulse Rate 118 H Respiratory Rate 18 Respiratory Effort Normal Respiratory Pattern Normal Blood Pressure 135/75 H Blood Pressure Mean 95 Pulse Ox 96 Oxygen Delivery Method Room Air Room Air 03/21/25 21:00 03/21/25 22:38 03/21/25 23:06 Temperature 101.3 F H 99.2 F H 99 F Temperature Source Oral Oral Pulse Rate 118 H 118 H 120 H Respiratory Rate 18 20 H 18 Respiratory Effort Respiratory Pattern Blood Pressure 132/74 H 130/64 H 122/69 H Blood Pressure Mean 93 86 86 Pulse Ox 98 94 95 Oxygen Delivery Method Room Air MDM MDM MDM Narrative Medical decision making narrative: 79-year-old male with recent diagnosis of 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 Patient follows with oncology, Dr. Miranda. History taken by patient as well as oncology note on 03/14/2025. Patient was started on Rituxan mini CHOP on 03/10/2025. States his next chemotherapy is not for several days. States yesterday developed fever that continued into today. Associated symptom is fatigue and decreased p.o. intake. On presentation, patient is tachycardic and febrile. Tylenol and NS bolus ordered. Triage protocol was initiated and after several results resulted patient met sepsis. Vancomycin and Zosyn ordered for prophylactic/broad-spectrum antibiotics given patient is on chemotherapy. 30 cc/kg bolus not ordered given that patient is not hypotensive. CBC without leukocytosis. Patient has baseline anemia with hemoglobin 8.5. CMP shows dehydration with hyponatremia at 129 and KO with creatinine of 2.07. No transaminitis. Lactic unremarkable. Coagulation panel unremarkable. Troponin 47. Patient not having chest pain. In December troponin was 31. Will get delta. UA negative for UTI. COVID, flu, RSV negative. Repeat Trope 45. At this point in time, no clear source for patient's fever. He will warrant admission for his dehydration as well continued fever workup. His fever has improved however he still tachycardic. Patient was updated on the results and understand the plan. Patient was discussed with hospitalist who accepted admission. EKG: Interpreted by me/EM physician: EKG shows sinus tachycardia with nonspecific ST changes. Heart rate 112. Diagnostic: Interpreted by me/EM physician: Chest x-ray without pneumonia, effusion, cardiomegaly, pneumothorax. Radiology in agreement. Impression: 1. Sepsis/fever of unknown origin 2. Immunocompromised secondary to chemotherapy from large B-cell lymphoma 3. KO/dehydration 4. Hyponatremia Lab Data Labs: Laboratory Results - last 24 hr 03/21/25 03/21/25 03/21/25 19:50 21:10 22:14 WBC 6.4 RBC 2.87 L Hgb 8.5 L Hct 25.5 L MCV 88.9 MCH 29.6 MCHC 33.3 RDW Std Deviation 48.1 H RDW Coeff of Martha 15.0 H Plt Count 160 MPV 10.3 Immature Gran % (Auto) 1.600 H Neut % (Auto) 89.5 H Lymph % (Auto) 2.5 L [place] % (Auto) 3.6 Eos % (Auto) 2.2 Baso % (Auto) 0.6 Absolute Neuts (auto) 5.7 Absolute Lymphs (auto) 0.16 L Nucleated RBC % 0 PT 14.0 INR 1.1 APTT 39.2 H Sodium 129 L Potassium 3.5 Chloride 93 L Carbon Dioxide 25.0 Anion Gap 12 BUN 33 H Creatinine 2.07 H Estim Creat Clear Calc 23.52 L Est GFR (MDRD) Non-Af 32 L BUN/Creatinine Ratio 16.0 Glucose 118 H Lactic Acid 1.1 Calcium 11.4 H Total Bilirubin 0.24 AST 33 ALT 33 Alkaline Phosphatase 152 H Troponin T High Sens 47 H D Troponin T Hi Sens 2 Hr 45 H Total Protein 6.6 Albumin 3.1 L Globulin 3.4 Albumin/Globulin Ratio 0.9 Urine Color Yellow Urine Clarity Clear Urine pH 6.5 Ur Specific [place] 1.015 Urine Protein 100 H Urine Glucose (UA) Normal Urine Ketones Negative Urine Occult Blood 25 H Urine Nitrite Negative Urine Bilirubin Negative Urine Urobilinogen Normal Ur Leukocyte Esterase Negative Urine RBC 0-5 SEEN Urine WBC 0-5 SEEN Ur Squamous Epith Cells 0-5 SEEN Ur Renal Epithelial Cell 0-5 SEEN Urine Bacteria RARE Hyaline Casts 0-5 SEEN Fine Granular Casts 0-5 SEEN Urine Mucus RARE Discharge Plan Triage Chief Complaint: Fever ED Provider: Ed Parada Dx/Rx/DC Orders Prescriptions: No Action allopurinol 300 mg tablet 300 mg PO QDAY Qty: 30 0RF ondansetron 8 mg tablet,disintegrating 8 mg PO Q12H PRN (Reason: nausea and vomiting) Qty: 30 0RF senna 8.6 mg capsule 8.6 mg PO DAILY PRN (Reason: constipation) 5 Days Qty: 5 0RF Primary Care Provider: Sacha Hernandez Referrals: Sacha Hernandez DO [Primary Care Provider, Family Practice] Print Language: Hungarian
[2025-03-21] MEDS: 0.9% Normal Saline (1000mL) 1,000 ML 999 ML IV (21:39)
[2025-03-21 21:49] LABS: Prothrombin Time (Protime)PT. 14.0 SECONDS (11.7-14.9)
[2025-03-21 21:51] LABS: Partial Thromboplast Time 39.2 Seconds (24.1-36.2)
[2025-03-21 21:53] LABS: Troponin T High Sensitivity 47 ng/L (<=22)
[2025-03-21 21:56] LABS: Color, Urine Yellow (Yellow); Glucose, Dipstick Normal (Normal); Ketone-Dipstick Negative (Negative); Leukocyte Esterase-Dipstick Negative /ul (Negative); Nitrite-Dipstick Negative (Negative); Occult Blood-Urine 25 /ul (Negative); Protein-Dipstick 100 mg/dl (Negative); Specific Gravity, Urine 1.015 (1.002-1.030); Urine Bilirubin Dipstick Negative (Negative)
[2025-03-21] MEDS: Piperacil/Tazobactam 4.5 GM in 0.9% Normal Saline (100mL MB+) 100 ML IV (22:05)
[2025-03-21 22:30] LABS: Fine Granular Cast- Urine 0-5 SEEN /lpf (0-5)
[2025-03-21 22:32] LABS: Mucous, Urine RARE /hpf (<or=2+); Red Blood Cells-Urine 0-5 SEEN /hpf (0-5); Squamous Epithelial Cells - UA 0-5 SEEN /hpf (0-5)
[2025-03-21 22:50] LABS: Troponin T High Sens 2 HR 45 ng/L (<=22)
[2025-03-21] MEDS: Vancomycin HCl 1,500 MG in 0.9% Normal Saline (500mL Bag) 500 ML 250 MG IV (22:55)
--- NOTE | 2025-03-21 23:25 | PCM.HP.STD ---
HPI - General General Date of Admission: 03/21/25 Date of Service: 03/21/25 Chief Complaint: Febrile illness, fatigue HPI Narrative JUJU HALL, is a 79 M who presents to the emergency room with chief complaint of febrile illness with fatigue. Patient has significant past medical history of diffuse large B-cell lymphoma who was recently started on Rituxan mini CHOP therapy on 03/10/2025. His next scheduled chemotherapy is not for several days. Patient states that he developed a fever yesterday that continued into today and that is associated with increasing fatigue and decreased p.o. intake. Patient denies any chest pain, shortness of breath, nausea, vomiting or diarrhea and/or dysuria at present time. PET scan on March 08 shows extensive hypermetabolic activity in the left pleural area including left ribs, thoracic vertebrae, sternum, left chest wall. Laboratory studies today reveal white blood cell count of 6.4, hemoglobin 8.5, hematocrit 25.5, platelets 160, sodium 129, potassium 3.5, chloride 93, bicarb 25, BUN 33, creatinine 2.07, glucose 118, calcium 11.4, INR 1.1, AST 33, ALT 33, troponin 47, 45, UA within normal limits, chest x-ray shows clear lungs. COVID and flu testing are negative. Patient was started on vancomycin and Zosyn for broad-spectrum coverage of febrile illness with no known source of infection at present time. Patient will be admitted to progressive care unit for telemetry monitoring due to his tachycardia and will initiate IV hydration therapy overnight and repeat laboratory studies in the morning along with consult to his oncologist Dr. Miranda. [facility] Medical History Malignant neoplasm of thorax Vasovagal syncope Rheumatic fever Hypercalcemia Dyspnea Recurrent left pleural effusion Acute kidney injury Pleural effusion Lung mass Macular degeneration Home Medications ?Medication ?Instructions ?Recorded ?Last Taken ?Type sennosides 8.6 mg capsule (senna) 8.6 mg PO DAILY PRN constipation 5 02/14/25 Unknown Rx days #5 caps allopurinol 300 mg tablet 300 mg PO QDAY #30 tabs 03/02/25 Unknown Rx ondansetron 8 mg disintegrating 8 mg PO Q12H PRN nausea and 03/10/25 Unknown Rx tablet vomiting #30 tabs Allergy/AdvReac Type Severity Reaction Status Date / Time No Known Allergies Allergy Verified 03/21/25 19:02 Family History Brother Cancer throat Epilepsy Glaucoma Father Glaucoma Other Throat cancer Surgical History History of lung biopsy History of thoracentesis Social History household members: significant other current occupational status: retired 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, [place] pets and animals: No history of recent travel: No Smoking Status: Never smoker alcohol intake: never substance use type: does not use caffeine: No what type of physical activity do you participate in: walking seatbelt use: always ROS Constitutional Constitutional: Reports chills, fatigue and fever(s) Eyes Eyes: Denies blurry vision ENT HEENT: Denies abnormal hearing Cardiovascular Cardiovascular: Denies chest pain Respiratory/Chest Respiratory/Chest: Denies cough or shortness of breath at rest Gastrointestinal Gastrointestinal: Denies abdominal pain Genitourinary Genitourinary: Denies dysuria, hematuria or urinary urgency Musculoskeletal Musculoskeletal: Denies back pain Integumentary Integumentary: Denies dry skin Psychiatric Psychiatric: Denies anxiety or depression Vital Signs Vital Signs Vital Signs: 03/21/25 19:02 03/21/25 19:05 03/21/25 19:29 Temperature 99.8 F H 99.8 F H 101.3 F H Temperature Source Oral Oral Oral Pulse Rate 133 H 133 H Respiratory Rate 18 18 Respiratory Effort Respiratory Pattern Blood Pressure 148/75 H 148/75 H Blood Pressure Mean 99 99 Pulse Ox 95 95 Oxygen Delivery Method Nasal Cannula Room Air 03/21/25 19:29 03/21/25 20:00 03/21/25 20:05 Temperature 101.3 F H Temperature Source Oral Pulse Rate 118 H Respiratory Rate 18 Respiratory Effort Normal Respiratory Pattern Normal Blood Pressure 135/75 H Blood Pressure Mean 95 Pulse Ox 96 Oxygen Delivery Method Room Air Room Air 03/21/25 21:00 03/21/25 22:38 03/21/25 23:06 Temperature 101.3 F H 99.2 F H 99 F Temperature Source Oral Oral Pulse Rate 118 H 118 H 120 H Respiratory Rate 18 20 H 18 Respiratory Effort Respiratory Pattern Blood Pressure 132/74 H 130/64 H 122/69 H Blood Pressure Mean 93 86 86 Pulse Ox 98 94 95 Oxygen Delivery Method Room Air Weight Weight: 131 lb Body Mass Index (BMI) 21.1 Physical Exam Const alert, oriented x3 and no apparent distress General Appearance: cooperative and well developed HEENT normocephalic and head/scalp atraumatic Eyes PERRL Neck no lymphadenopathy Lymph Lymphatic: no lymphadenopathy noted Resp normal respiratory effort, normal air movement and clear to auscultation bilaterally Cardio S1 normal heart sound, S2 normal heart sound and no murmurs Rate: tachycardic Heart Sounds: Negative for gallop or murmur GI normal to inspection, nondistended, normoactive bowel sounds Extremity normal capillary refill Skin General Skin Exam: no breakdown Neuro no focal motor deficits and no sensory deficits noted Psych thought process normal, cooperative and affect normal Results Lab / Micro Data 03/21/25 19:50 03/21/25 19:50 Labs: Laboratory Results - last 24 hr 03/21/25 19:50: WBC 6.4, RBC 2.87 L, Hgb 8.5 L, Hct 25.5 L, MCV 88.9, MCH 29.6, MCHC 33.3, RDW Std Deviation 48.1 H, RDW Coeff of [place] 15.0 H, Plt Count 160, MPV 10.3, Immature Gran % (Auto) 1.600 H, Neut % (Auto) 89.5 H, Lymph % (Auto) 2.5 L, [place] % (Auto) 3.6, Eos % (Auto) 2.2, Baso % (Auto) 0.6, Absolute Neuts (auto) 5.7, Absolute Lymphs (auto) 0.16 L, Nucleated RBC % 0, PT 14.0, INR 1.1, APTT 39.2 H, Sodium 129 L, Potassium 3.5, Chloride 93 L, Carbon Dioxide 25.0, Anion Gap 12, BUN 33 H, Creatinine 2.07 H, Estim Creat Clear Calc 23.52 L, Est GFR (MDRD) Non-Af 32 L, BUN/Creatinine Ratio 16.0, Glucose 118 H, Lactic Acid 1.1, Calcium 11.4 H, Total Bilirubin 0.24, AST 33, ALT 33, Alkaline Phosphatase 152 H, Troponin T High Sens 47 H D, Total Protein 6.6, Albumin 3.1 L, Globulin 3.4, Albumin/Globulin Ratio 0.9 03/21/25 21:10: Urine Color Yellow, Urine Clarity Clear, Urine pH 6.5, Ur Specific [place] 1.015, Urine Protein 100 H, Urine Glucose (UA) Normal, Urine Ketones Negative, Urine Occult Blood 25 H, Urine Nitrite Negative, Urine Bilirubin Negative, Urine Urobilinogen Normal, Ur Leukocyte Esterase Negative, Urine RBC 0-5 SEEN, Urine WBC 0-5 SEEN, Ur Squamous Epith Cells 0-5 SEEN, Ur Renal Epithelial Cell 0-5 SEEN, Urine Bacteria RARE, Hyaline Casts 0-5 SEEN, Fine Granular Casts 0-5 SEEN, Urine Mucus RARE 03/21/25 22:14: Troponin T Hi Sens 2 Hr 45 H Micro: Microbiology 03/21/25 21:36 Mucosa - Nose SARS-CoV-2, Influenza & RSV (PCR) - Final Assessment & Plan Assessment/Plan (1) DLBCL (diffuse large B cell lymphoma): QUALIFIERS: Lymphoma site: multiple regions Qualified Code(s): C83.38 - Diffuse large B-cell lymphoma, lymph nodes of multiple sites (2) Hypercalcemia of malignancy: (3) Febrile illness: PLAN: Plan 1. Febrile illness with unknown source?patient started on vancomycin and Zosyn in the emergency room for broad-spectrum coverage as patient is on chemotherapy at present time. Repeat CBC BMP in the a.m. will add Tylenol 650 Q6. For fever initiate IV fluids at a rate of 150 cc/h. Possible fever secondary to malignancy, chest x-ray was negative for pneumonia and urinalysis was negative for urinary tract infection, microbiology testing for COVID and flu was also negative as possible sources for infection patient denies any skin lesions at present time therefore, source of fever remains unclear. 2. Hypercalcemia of malignancy?initially we will treat with IV hydration and consider bisphosphonate in future 3. Diffuse large B-cell lymphoma?consult Dr. Miranda 4. DVT prophylaxis?SCDs due to decreased renal function will not use low molecular weight heparin at this time 5. CODE STATUS?full verified with patient Charges/Coding Visit Charges Inpatient E&M: 76693 Init Hosp L2
--- OUTSIDE RECORDS SUMMARY | 2025-03-21 23:59 | XMS RPT_ITS | CCD ---
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 Goncalves Primary Care Provider Dr. Michelet Good DO Attending Provider FLORENTINO JOSE, DR MICHELET Parker Primary Care Wesab walter GORE MD, DR FLORES Attending Wesab walter GOOD DO, DR MICHELET Parker Attending Lennie Rod DO, DR MICHELET Parker Primary Care Lennie Rod DO, Dr. Goncalves Referring Provider Dr. Domenico Garcia DO Attending Provider Dr. Domenico Garcia DO Referring Provider Michelet Good Primary Care Provider Dr. Kenrick Ott DO Emergency Provider Zion JOSE, Dr. Goncalves Admit Provider Dr. Michelet Donovan DO Attending Provider [phone] Brenda MCGOVERN, Dr. Mcdonald Other Provider [place] JOSE, Dr. Goncalves Other Provider Cathleen BALBUENA-CNanette Attending Provider Dr. Ed Parada DO Emergency Provider Dr. Michelet Good DO Primary Care Physician [phone] Dr. Michelet Good DO Attending Physician Dr. Domenico Garcia DO Attending Physician [phone] Kenrick Emergency Department Physi pippa [place] JOSE, Dr. Goncalves Admitting Physician [place] JOSE, Dr. Goncalves Attending Physician Brenda MCGOVERN, Dr. Mcdonald Nurse Practitioner [place] JOSE, Dr. Goncalves Nurse Practitioner Nanette Basurto Attending Physician [facility] DO, Dr. Ward Attending Physician [facility] DO, Dr. [facility] Ruben MCGOVERN, Dr. Senior Attending Physician Ruben MCGOVERN, Dr. Senior Referring Provider RAFAEL JOSHUA Attending Unavailable FLORENTINO, MICHELET Primary Care Unavailable FREDDY CONTRERAS Attending Unavailable DOMENICO GARCIA Referring Unavailable FLORENTINO, MICHELET Primary Care Unavailable FREDDY CONTRERAS Attending Unavailable MICHELET GOOD Primary Care Unavailable BOWLING GREENABDI Referring Unavailable FLORENTINO, MICHELET Primary Care Unavailable FREDDY CONTRERAS Admitting Unavailable FREDDY CONTRERAS Attending Unavailable FLORENTINO, MICHELET Primary Care Unavailable Florentino JOSE, Dr. Goncalves Primary Care Physician Florentino JOSE, Dr. Goncalves Attending Physician Florentino JOSE, Dr. Goncalves Referring Provider Behzad JOSE, Dr. Gomez Attending Physician Behzad JOSE, Dr. Gomez Referring Provider aNmrata JOSE, Dr. Choudhary Emergency Department Physi pippa [place] JOSE, Dr. Goncalves Admitting Physician [place] JOSE, Dr. Goncalves Attending Physician Brenda MCGOVERN, Dr. Mcdonald Nurse Practitioner [place] JOSE, Dr. Goncalves Nurse Practitioner Nanette Basurto Attending Physician Karma JOSE, Dr. Ward Attending Physician Karma JOSE, Dr. Ward [facility] Ruben MCGOVERN, Dr. Senior Attending Physician Ruben MCGOVERN, Dr. Senior Referring Provider Terry MCGOVERN, Dr. Baxter Attending Physician Brenda, Edwardprakas Consulting Unavailable Florentino, Michelet Primary Care Unavailable Tereletsky, Michelet Attending Unavailable Tereletsky, Michelet Admitting Unavailable Tereletsky, Michelet Consulting Unavailable Florentino, Michelet Primary Care Unavailable Sahil Stewart Attending Unavailable Florentino, Michelet Primary Care Unavailable [...] capsule by mouth once daily fish oil ([place]-3) 500 MG capsule Take 500 mg by [...] 50 MG 24 hr tablet 02/02/2025 Active [facility] (Nk) (1 source) Start: 01-18-2025 [facility] (Nk) A ctive January 18, 2025 12:00am [place]-3 Fatty Acids-Fish Oil (Fish Oil) 300-500 mg capsule (6 sources) Start: 02-01-2025 Start: 02-01-2025 [place]-3 Fatty Acids-Fish Oil (Fish Oil) 300-500 mg capsule Active 1 NMA PO DAILY February 01, 2025 12:00am Start: 02-01-2025 [place]-3 Fatty Acids-Fish Oil (Fish Oil) 300-500 mg [...] medicated shampoo (4 sources) Start: 02-16-2025 sennosides, retirement 8.6 mg oral capsule (5 sources) Start: [...] (4 sources) Start: 02-16-2025 End: 03-02-2025 Vit A,C,G-I4-Opdr-Lut-Min-Gl ut 1000 unit-300mg -100 unit-2 mg tablet (10 sources) Start: 12-27-2024 End: 01-18-2025 Vit A,C,H-O0-Hijr-Lut-Min-Gl ut 1000 unit-300mg -100 unit-2 mg tablet Discontinued {tbl} PO December 27, 2024 12:00am January 18, 2025 5:22am Start: 12-27-2024 Vit A,C,E-B2-N tkv-Piy-Zsb-Glut 1000 unit-300mg -100 unit-2 mg tablet Active [...] W/Diff, Automatedon 10- Absolute Neut Normal 2.0-7.7 [facility] Comment on above: Order Comment: The r eference range and other method performance specifications have not been established for this body fluid. The test must be integrated into the clinical context for interpretation. BODY FLUID BLEURAL EFFUSION LT THORA Result Comment: PT D ISCHARGED Performed By: #### M 100.2900, M100.4001, L001.0705, L504.0250, L200.0200, L350.1000, M100.2000, L503.0300 #### [facility] [address] [place], [address] HCT Normal 40-54 [facility] Comment on above: Order Comment: The r eference range and other method performance specifications have not been established for this body fluid. The test must be integrated into the clinical context for interpretation. BODY FLUID BLEURAL EFFUSION LT THORA Result Comment: PT D ISCHARGED Performed By: #### M 100.2900, M100.4001, L001.0705, L504.0250, L200.0200, L350.1000, M100.2000, L503.0300 #### [facility] [address] [place], [address] HGB Normal 13.0-16.5 [facility] Comment on above: Order Comment: The r eference range and other method performance specifications have not been established for this body fluid. The test must be integrated into the clinical context for interpretation. BODY FLUID BLEURAL EFFUSION LT THORA Result Comment: PT D ISCHARGED Performed By: #### M 100.2900, M100.4001, L001.0705, L504.0250, L200.0200, L350.1000, M100.2000, L503.0300 #### [facility] [address] [place], [address] MCH Normal 27.0-32.0 [facility] Comment on above: Order Comment: The r eference range and other method performance specifications have not been established for this body fluid. The test must be integrated into the clinical context for interpretation. BODY FLUID BLEURAL EFFUSION LT THORA Result Comment: PT D ISCHARGED Performed By: #### M 100.2900, M100.4001, L001.0705, L504.0250, L200.0200, L350.1000, M100.2000, L503.0300 #### [facility] [address] [place], [address] MCHC Normal 32-36 [facility] Comment on above: Order Comment: The r eference range and other method performance specifications have not been established for this body fluid. The test must be integrated into the clinical context for interpretation. BODY FLUID BLEURAL EFFUSION LT THORA Result Comment: PT D ISCHARGED Performed By: #### M 100.2900, M100.4001, L001.0705, L504.0250, L200.0200, L350.1000, M100.2000, L503.0300 #### [facility] [address] [place], [address] MCV Normal 80-94 [facility] Comment on above: Order Comment: The r eference range and other method performance specifications have not been established for this body fluid. The test must be integrated into the clinical context for interpretation. BODY FLUID BLEURAL EFFUSION LT THORA Result Comment: PT D ISCHARGED Performed By: #### M 100.2900, M100.4001, L001.0705, L504.0250, L200.0200, L350.1000, M100.2000, L503.0300 #### [facility] [address] [place], [address] NEUT% Normal 47-70 [facility] Comment on above: Order Comment: The r eference range and other method performance specifications have not been established for this body fluid. The test must be integrated into the clinical context for interpretation. BODY FLUID BLEURAL EFFUSION LT THORA Result Comment: PT D ISCHARGED Performed By: #### M 100.2900, M100.4001, L001.0705, L504.0250, L200.0200, L350.1000, M100.2000, L503.0300 #### [facility] [address] [place], [address] PLT Normal 150-450 [facility] Comment on above: Order Comment: The r eference range and other method performance specifications have not been established for this body fluid. The test must be integrated into the clinical context for interpretation. BODY FLUID BLEURAL EFFUSION LT THORA Result Comment: PT D ISCHARGED Performed By: #### M 100.2900, M100.4001, L001.0705, L504.0250, L200.0200, L350.1000, M100.2000, L503.0300 #### [facility] [address] [place], [address] RBC Normal 4.6-6.2 [facility] Comment on above: Order Comment: The r eference range and other method performance specifications have not been established for this body fluid. The test must be integrated into the clinical context for interpretation. BODY FLUID BLEURAL EFFUSION LT THORA Result Comment: PT D ISCHARGED Performed By: #### M 100.2900, M100.4001, L001.0705, L504.0250, L200.0200, L350.1000, M100.2000, L503.0300 #### [facility] [address] [place], [address] RDW CV Normal 11.6-14.6 [facility] Comment on above: Order Comment: The r eference range and other method performance specifications have not been established for this body fluid. The test must be integrated into the clinical context for interpretation. BODY FLUID BLEURAL EFFUSION LT THORA Result Comment: PT D ISCHARGED Performed By: #### M 100.2900, M100.4001, L001.0705, L504.0250, L200.0200, L350.1000, M100.2000, L503.0300 #### [facility] [address] [place], [address] RDW SD Normal 35.1-43.9 [facility] Comment on above: Order Comment: The r eference range and other method performance specifications have not been established for this body fluid. The test must be integrated into the clinical context for interpretation. BODY FLUID BLEURAL EFFUSION LT THORA Result Comment: PT D ISCHARGED Performed By: #### M 100.2900, M100.4001, L001.0705, L504.0250, L200.0200, L350.1000, M100.2000, L503.0300 #### [facility] [address] [place], [address] WBC Normal 4.4-11.0 [facility] Comment on above: Order Comment: The r eference range and other method performance specifications have not been established for this body fluid. The test must be integrated into the clinical context for interpretation. BODY FLUID BLEURAL EFFUSION LT THORA Result Comment: PT D ISCHARGED Performed By: #### M 100.2900, M100.4001, L001.0705, L504.0250, L200.0200, L350.1000, M100.2000, L503.0300 #### [facility] [address] [place], [address] Comprehensive Metabolic Prof ilon 03-20-2025 ALB Normal 3.4-4.8 [facility] Comment on above: Result Comment: PT D ISCHARGED Performed By: #### M 100.2900, M100.4001, L001.0705, L504.0250, L200.0200, L350.1000, M100.2000, L503.0300 #### [facility] [address] [place], [address] ALK PHOS Normal 40-129 [facility] Comment on above: Result Comment: PT D ISCHARGED Performed By: #### M 100.2900, M100.4001, L001.0705, L504.0250, L200.0200, L350.1000, M100.2000, L503.0300 #### [facility] [address] [place], [address] ALT Normal <=46 [facility] Comment on above: Result Comment: PT D ISCHARGED Performed By: #### M 100.2900, M100.4001, L001.0705, L504.0250, L200.0200, L350.1000, M100.2000, L503.0300 #### [facility] [address] [place], [address] AST Normal <=37 [facility] Comment on above: Result Comment: PT D ISCHARGED Performed By: #### M 100.2900, M100.4001, L001.0705, L504.0250, L200.0200, L350.1000, M100.2000, L503.0300 #### [facility] [address] [place], [address] BUN Normal 4-19 [facility] Comment on above: Result Comment: PT D ISCHARGED Performed By: #### M 100.2900, M100.4001, L001.0705, L504.0250, L200.0200, L350.1000, M100.2000, L503.0300 #### [facility] [address] [place], [address] BUN/CRE Normal 10-20 [facility] Comment on above: Result Comment: PT D ISCHARGED Performed By: #### M 100.2900, M100.4001, L001.0705, L504.0250, L200.0200, L350.1000, M100.2000, L503.0300 #### [facility] [address] [place], [address] Calcium Normal 7.6-11.0 [facility] Comment on above: Result Comment: PT D ISCHARGED Performed By: #### M 100.2900, M100.4001, L001.0705, L504.0250, L200.0200, L350.1000, M100.2000, L503.0300 #### [facility] [address] [place], [address] CL Normal 98-108 [facility] Comment on above: Result Comment: PT D ISCHARGED Performed By: #### M 100.2900, M100.4001, L001.0705, L504.0250, L200.0200, L350.1000, M100.2000, L503.0300 #### [facility] [address] [place], [address] CO2 Normal 21.0-32.0 [facility] Comment on above: Result Comment: PT D ISCHARGED Performed By: #### M 100.2900, M100.4001, L001.0705, L504.0250, L200.0200, L350.1000, M100.2000, L503.0300 #### [facility] [address] [place], [address] CREAT,SERUM Normal 0.70-1.20 [facility] Comment on above: Result Comment: PT D ISCHARGED Performed By: #### M 100.2900, M100.4001, L001.0705, L504.0250, L200.0200, L350.1000, M100.2000, L503.0300 #### [facility] [address] [place], [address] eGFR Normal >60 [facility] Comment on above: Result Comment: PT D ISCHARGED Performed By: #### M 100.2900, M100.4001, L001.0705, L504.0250, L200.0200, L350.1000, M100.2000, L503.0300 #### [facility] [address] [place], [address] GAP Normal 5-15 [facility] Comment on above: Result Comment: PT D ISCHARGED Performed By: #### M 100.2900, M100.4001, L001.0705, L504.0250, L200.0200, L350.1000, M100.2000, L503.0300 #### [facility] [address] [place], [address] GLU Normal 70-99 [facility] Comment on above: Result Comment: PT D ISCHARGED Performed By: #### M 100.2900, M100.4001, L001.0705, L504.0250, L200.0200, L350.1000, M100.2000, L503.0300 #### [facility] [address] [place], [address] Potassium Normal 3.3-5.1 [facility] Comment on above: Result Comment: PT D ISCHARGED Performed By: #### M 100.2900, M100.4001, L001.0705, L504.0250, L200.0200, L350.1000, M100.2000, L503.0300 #### [facility] [address] [place], [address] T BILI Normal 0.00-1.30 [facility] Comment on above: Result Comment: PT D ISCHARGED Performed By: #### M 100.2900, M100.4001, L001.0705, L504.0250, L200.0200, L350.1000, M100.2000, L503.0300 #### [facility] [address] [place], [address] T PROT Normal 5.9-8.4 [facility] Comment on above: Result Comment: PT D ISCHARGED Performed By: #### M 100.2900, M100.4001, L001.0705, L504.0250, L200.0200, L350.1000, M100.2000, L503.0300 #### [facility] [address] [place], [address] Comprehensive Metabolic Profil Normal 133-145 [facility] Comment on above: Result Comment: PT D ISCHARGED Performed By: #### M 100.2900, M100.4001, L001.0705, L504.0250, L200.0200, L350.1000, M100.2000, L503.0300 #### [facility] [address] [place], [address] Prothrombin Time w/INRon INR Normal [facility] Comment on above: Result Comment: PT D ISCHARGED Performed By: #### M 100.2900, M100.4001, L001.0705, L504.0250, L200.0200, L350.1000, M100.2000, L503.0300 #### [facility] [address] [place], [address] PROTIME Normal 11.7-14.9 [facility] Comment on above: Result Comment: PT D ISCHARGED Performed By: #### M 100.2900, M100.4001, L001.0705, L504.0250, L200.0200, L350.1000, M100.2000, L503.0300 #### [facility] [address] [place], [address] Comprehensive Metabolic Prof ilon 03-17-2025 Albumin [Mass/Vol] 3.3 g/dL Low 3.4-4.8 [facility] Comment on above: Performed By: #### L 3130.0010, L506.1001, L509.1000, L3300.0960 #### [facility] [address] [place], [address] Albumin/Globulin [Mass ratio] 1.2 {ratio} Normal 0.9-2.4 [facility] Comment on above: Performed By: #### L 3130.0010, L506.1001, L509.1000, L3300.0960 #### [facility] [address] [place], [address] ALK PHOS 163 U/L High 40-129 [facility] Comment on above: Performed By: #### L 3130.0010, L506.1001, L509.1000, L3300.0960 #### [facility] [address] [place], [address] ALT [Catalytic activity/Vol] 24 U/L Normal <=46 [facility] Comment on above: Performed By: #### L 3130.0010, L506.1001, L509.1000, L3300.0960 #### [facility] [address] [place], [address] AST [Catalytic activity/Vol] 15 U/L Normal <=37 [facility] Comment on above: Performed By: #### L 3130.0010, L506.1001, L509.1000, L3300.0960 #### [facility] [address] [place], [address] Bilirubin [Mass/Vol] 0.25 mg/dL Normal 0.00-1.30 [facility] Comment on above: Performed By: #### L 3130.0010, L506.1001, L509.1000, L3300.0960 #### [facility] [address] [place], [address] BUN/CRE 26.0 RATIO High 10-20 [facility] Comment on above: Performed By: #### L 3130.0010, L506.1001, L509.1000, L3300.0960 #### [facility] [address] [place], [address] Calcium [Mass/Vol] 11.5 mg/dL High 7.6-11.0 [facility] Comment on above: Performed By: #### L 3130.0010, L506.1001, L509.1000, L3300.0960 #### [facility] [address] [place], [address] Chloride [Moles/Vol] 99 mmol/L Normal 98-108 [facility] Comment on above: Performed By: #### L 3130.0010, L506.1001, L509.1000, L3300.0960 #### [facility] [address] [place], [address] CO2 [Moles/Vol] 27.4 mmol/L Normal 21.0-32.0 [facility] Comment on above: Performed By: #### L 3130.0010, L506.1001, L509.1000, L3300.0960 #### [facility] [address] [place], [address] Creatinine [Mass/Vol] 1.62 mg/dL High 0.70-1.20 [facility] Comment on above: Performed By: #### L 3130.0010, L506.1001, L509.1000, L3300.0960 #### [facility] [address] [place], [address] ECRCL 30.62 ml/min Low 50-250 [facility] Comment on above: Performed By: #### L 3130.0010, L506.1001, L509.1000, L3300.0960 #### [facility] [address] [place], [address] GAP 10 Normal 5-15 [facility] Comment on above: Performed By: #### L 3130.0010, L506.1001, L509.1000, L3300.0960 #### [facility] [address] [place], [address] GFR/1.73 sq M.predicted among non-blacks MDRD (S/P/Bld) [Vol rate/Area] 42 mL/min/{1.73_m2} Low >60 [facility] Comment on above: Result Comment: mL/m in/1.73m2 CKD-EPI Creatinine Equation (2020) Performed By: #### L 3130.0010, L506.1001, L509.1000, L3300.0960 #### [facility] [address] [place], [address] Globulin (S) [Mass/Vol] 2.8 g/dL Normal 2.2-4.2 [facility] Comment on above: Performed By: #### L 3130.0010, L506.1001, L509.1000, L3300.0960 #### [facility] [address] [place], [address] Glucose [Mass/Vol] 120 mg/dL High 70-99 [facility] Comment on above: Performed By: #### L 3130.0010, L506.1001, L509.1000, L3300.0960 #### [facility] [address] [place], [address] Potassium [Moles/Vol] 4.2 mmol/L Normal 3.3-5.1 [facility] Comment on above: Performed By: #### L 3130.0010, L506.1001, L509.1000, L3300.0960 #### [facility] [address] [place], [address] Sodium [Moles/Vol] 137 mmol/L Normal 133-145 [facility] Comment on above: Performed By: #### L 3130.0010, L506.1001, L509.1000, L3300.0960 #### [facility] [address] [place], [address] T PROT 6.1 g/dL Normal 5.9-8.4 [facility] Comment on above: Performed By: #### L 3130.0010, L506.1001, L509.1000, L3300.0960 #### [facility] [address] [place], [address] Urea nitrogen [Mass/Vol] 42 mg/dL High 4-19 [facility] Comment on above: Performed By: #### L 3130.0010, L506.1001, L509.1000, L3300.0960 #### [facility] [address], [address] Copper, Serum or Plasmaon COPPER, SERUM 112 ug/dL Normal 69-132 [facility] Comment on above: Order Comment: Test( s) 446363-[id number], Serum or Plasmawas developed and its performance characteristicsdetermined by [employer]. It has not been cleared or approvedby the Food and Drug Administration. Result Comment: Dete ction Limit = 5 Performed By: #### L 3130.0010, L506.1001, L509.1000, L3300.0960 #### [facility] [address] [facility] [place], [place], [id number] (927) Zinc, Plasma or Serumon 03-02 ZINC,PLASMA/SER 78 ug/dL Normal 44-115 [facility] Comment on above: Order Comment: Test( s) 398282-[id number], Serum or Plasmawas developed and its performance characteristicsdetermined by [employer]. It has not been cleared or approvedby the Food and Drug Administration. Result Comment: Dete ction Limit = 5 Performed at: [address] [id number] Payroll Clerk: Tahir Malave MD, Phone: [phone] Performed By: #### L 3130.0010, L506.1001, L509.1000, L3300.0960 #### [facility] [address] [facility] [place], [place], [address] Absolute lymphocyte countOrd ered By: Ondina Youngblood on 03-14-2025 Lymphocytes Auto (Unsp spec) [#/Vol] 1.03 10*3/uL 0.83-4.51 [facility] Anion gap in Serum or Plasma Ordered By: Ondina Youngblood on 03-14-2025 Anion gap [Moles/Vol] 11 mmol/L - [facility] BUN/creatinine ratioOrdered By: Ondina Youngblood on 03-14-2025 Urea nitrogen/Creatinine [Mass ratio] 32.0 mg/mg High 10-20 [facility] Bilirubin, totalOrdered By: Ondina Youngblood on 03-14-2025 Bilirubin [Mass/Vol] 0.44 mg/dL 0.00-1.30 [facility] Blood band neutrophil count as percentage of total leukocytesOrdered By: Ondina ClevelandFord on 03-14-2025 Band form neutrophils/100 WBC (Bld) 5 % 0-5 [facility] Blood lymphocytes/100 leukoc ytesOrdered By: [facility] on 03-14-2025 Lymphocytes/100 WBC (Bld) 2 % Low 19-41 [facility] Blood monocytes/100 leukocyt esOrdered By: [facility] HospitalF[facility] on 03-14-2025 Monocytes/100 WBC (Bld) 1 % 0-10 [facility] Blood segmented neutrophils/ 100 leukocytesOrdered By: [facility] Hospital[facility]ord on 03-14-2025 Segmented neutrophils/100 WBC (Bld) 92 % High 47-70 [facility] CBC W/Diff, Automatedon 03-02 PATH REV May foll Normal [facility] Comment on above: Performed By: #### L 3130.0010, L506.1001, L509.1000, L3300.0960 #### [facility] [address] [place], [address] Absolute Lymph 1.03 X10 3/uL Normal 0.83-4.51 [facility] Comment on above: Performed By: #### L 3130.0010, L506.1001, L509.1000, L3300.0960 #### [facility] [address] [place], [address] Absolute Neut 49.8 X10 3/uL High 2.0-7.7 [facility] Comment on above: Performed By: #### L 3130.0010, L506.1001, L509.1000, L3300.0960 #### [facility] [address] [place], [address] PLT EST ADEQUATE Normal ADEQ [facility] Comment on above: Performed By: #### L 3130.0010, L506.1001, L509.1000, L3300.0960 #### [facility] [address] [place], [address] RED CELL MORPH NORM C+C Normal NORM C C [facility] Comment on above: Performed By: #### L 3130.0010, L506.1001, L509.1000, L3300.0960 #### [facility] [address] [place], [address] BAND 5 Normal 0-5 [facility] Comment on above: Performed By: #### L 3130.0010, L506.1001, L509.1000, L3300.0960 #### [facility] [address] [place], [address] Lymphocytes (Bld) [#/Vol] 2 10*3/uL Low 19-41 [facility] Comment on above: Performed By: #### L 3130.0010, L506.1001, L509.1000, L3300.0960 #### [facility] [address] [place], [address] MONOCYTE 1 Normal 0-10 [facility] Comment on above: Performed By: #### L 3130.0010, L506.1001, L509.1000, L3300.0960 #### [facility] [address] [place], [address] SEGS 92 High 47-70 [facility] Comment on above: Performed By: #### L 3130.0010, L506.1001, L509.1000, L3300.0960 #### [facility] [address] [place], [address] TOTAL CELLS 100 Normal MANUAL DIFF [facility] Comment on above: Performed By: #### L 3130.0010, L506.1001, L509.1000, L3300.0960 #### [facility] [address] [place], [address] Carbon dioxide, total [Moles /volume] in Central venous bloodOrdered By: Ondina Youngblood on 03-14-2025 CO2 [Moles/Vol] 23.1 mmol/L 21.0-32.0 [facility] Chloride assayOrdered By: Augustine Youngblood on 03-14-2025 Chloride [Moles/Vol] 102 mmol/L 98-108 [facility] Comprehensive Metabolic Prof ilon 03-14-2025 Albumin [Mass/Vol] 3.3 g/dL Low 3.4-4.8 [facility] Comment on above: Performed By: #### L 3130.0010, L506.1001, L509.1000, L3300.0960 #### [facility] [address] [place], [address] Albumin/Globulin [Mass ratio] 1.1 {ratio} Normal 0.9-2.4 [facility] Comment on above: Performed By: #### L 3130.0010, L506.1001, L509.1000, L3300.0960 #### [facility] [address] [place], [address] ALK PHOS 158 U/L High 40-129 [facility] Comment on above: Performed By: #### L 3130.0010, L506.1001, L509.1000, L3300.0960 #### [facility] [address] [place], [address] ALT [Catalytic activity/Vol] 34 U/L Normal <=46 [facility] Comment on above: Performed By: #### L 3130.0010, L506.1001, L509.1000, L3300.0960 #### [facility] [address] [place], [address] AST [Catalytic activity/Vol] 19 U/L Normal <=37 [facility] Comment on above: Performed By: #### L 3130.0010, L506.1001, L509.1000, L3300.0960 #### [facility] [address] [place], [address] Bilirubin [Mass/Vol] 0.44 mg/dL Normal 0.00-1.30 [facility] Comment on above: Performed By: #### L 3130.0010, L506.1001, L509.1000, L3300.0960 #### [facility] [address] [place], [address] BUN/CRE 32.0 RATIO High 10-20 [facility] Comment on above: Performed By: #### L 3130.0010, L506.1001, L509.1000, L3300.0960 #### [facility] [address] [place], [address] Calcium [Mass/Vol] 12.1 mg/dL High 7.6-11.0 [facility] Comment on above: Performed By: #### L 3130.0010, L506.1001, L509.1000, L3300.0960 #### [facility] [address] [place], [address] Chloride [Moles/Vol] 102 mmol/L Normal 98-108 [facility] Comment on above: Performed By: #### L 3130.0010, L506.1001, L509.1000, L3300.0960 #### [facility] [address] [place], [address] CO2 [Moles/Vol] 23.1 mmol/L Normal 21.0-32.0 [facility] Comment on above: Performed By: #### L 3130.0010, L506.1001, L509.1000, L3300.0960 #### [facility] [address] [place], [address] Creatinine [Mass/Vol] 1.68 mg/dL High 0.70-1.20 [facility] Comment on above: Performed By: #### L 3130.0010, L506.1001, L509.1000, L3300.0960 #### [facility] [address] [place], [address] ECRCL 29.52 ml/min Low 50-250 [facility] Comment on above: Performed By: #### L 3130.0010, L506.1001, L509.1000, L3300.0960 #### [facility] [address] [place], [address] GAP 11 Normal 5-15 [facility] Comment on above: Performed By: #### L 3130.0010, L506.1001, L509.1000, L3300.0960 #### [facility] [address] [place], [address] GFR/1.73 sq M.predicted among non-blacks MDRD (S/P/Bld) [Vol rate/Area] 41 mL/min/{1.73_m2} Low >60 [facility] Comment on above: Result Comment: mL/m in/1.73m2 CKD-EPI Creatinine Equation (2020) Performed By: #### L 3130.0010, L506.1001, L509.1000, L3300.0960 #### [facility] [address] [place], [address] Globulin (S) [Mass/Vol] 3.0 g/dL Normal 2.2-4.2 [facility] Comment on above: Performed By: #### L 3130.0010, L506.1001, L509.1000, L3300.0960 #### [facility] [address] [place], [address] Glucose [Mass/Vol] 100 mg/dL High 70-99 [facility] Comment on above: Performed By: #### L 3130.0010, L506.1001, L509.1000, L3300.0960 #### [facility] [address] [place], [address] Potassium [Moles/Vol] 4.7 mmol/L Normal 3.3-5.1 [facility] Comment on above: Performed By: #### L 3130.0010, L506.1001, L509.1000, L3300.0960 #### [facility] [address] [place], [address] Sodium [Moles/Vol] 136 mmol/L Normal 133-145 [facility] Comment on above: Performed By: #### L 3130.0010, L506.1001, L509.1000, L3300.0960 #### [facility] [address] [place], [address] T PROT 6.3 g/dL Normal 5.9-8.4 [facility] Comment on above: Performed By: #### L 3130.0010, L506.1001, L509.1000, L3300.0960 #### [facility] [address] [place], [address] Urea nitrogen [Mass/Vol] 54 mg/dL High 4-19 [facility] Comment on above: Performed By: #### L 3130.0010, L506.1001, L509.1000, L3300.0960 #### [facility] [address] [place], [address] Erythrocyte distribution wid th ratioOrdered By: Ondina Youngblood on 03-14-2025 Erythrocyte distribution width (RBC) [Ratio] 16.2 % High 11.6-14.6 [facility] Erythrocyte distribution wid th standard deviationOrdered By: Ondina Youngblood on 03-14-2025 Erythrocyte distribution width (RBC) [Ratio] 53.7 fl High 35.1-43.9 [facility] Erythrocyte morphology asses smentOrdered By: Ondina Youngblood on 03-14-2025 RBC morphology finding Nom (Bld) NORM C+C NORMAL NORM C&C [facility] Glomerular filtration rate ( GFR) estimation/1.73 sq m using serum, plasma, or whole bOrdered By: Ondina Youngblood on 03-14-2025 GFR/1.73 sq M.predicted among non-blacks MDRD (S/P/Bld) [Vol rate/Area] 41 mL/min/{1.73_m2} Low >60 [facility] Hematocrit Auto (Bld) [Volum e fraction]Ordered By: Ondina Youngblood on 03-14-2025 Hematocrit (Bld) [Volume fraction] 28.7 % Low 40-54 [facility] Hemoglobin measurementOrdere d By: Ondina Youngblood on 03-14-2025 Hemoglobin (Bld) [Mass/Vol] 9.5 g/dL Low 13.0-16.5 [facility] LDHon 03-14-2025 LDH 201 U/L Normal 87-241 [facility] Comment on above: Order Comment: 1 Performed By: #### L 3130.0010, L506.1001, L509.1000, L3300.0960 #### [facility] [address] [facility] [place], [place], [id number] MCV (mean corpuscular volume ) determinationOrdered By: Ondina Youngblood on 03-14-2025 MCV (RBC) [Entitic vol] 91.4 fL 80-94 [facility] Magnesiumon 03-14-2025 Magnesium [Mass/Vol] 2.3 mg/dL High 1.5-2.2 [facility] Comment on above: Performed By: #### L 3130.0010, L506.1001, L509.1000, L3300.0960 #### [facility] [address] [place], [place], [id number] Magnesium measurement (mass/ volume)Ordered By: Parrish Miranda on 03-14-2025 Magnesium (Unsp spec) [Mass/Vol] 2.3 mg/dL High 1.5-2.2 [facility] Mean corpuscular hemoglobin (MCH) determinationOrdered By: Ondina Youngblood on 03-14-2025 MCH (RBC) [Entitic mass] 30.3 pg 27.0-32.0 [facility] No Panel InformationOrdered By: Ondina Younglbood on 03-14-2025 19 U/L <38 [facility] Oncology Visit Reporton 03-02 Oncology Visit Report [facility] [place] [facility] [place] [address] OFFICE VISIT Date of Service: 03/14/25 0755 MR#: [id number] Acct: [id number] Name: JUJU CACERES Rep #: [id number] : 1945 From: Parrish Miranda MD Age/Sex: 79/M Location: [facility] Status: Signed HPI Subjective Date of Service 03/14/25 Chief Complaint F/u for DLBCL and therapy. History of Present Illness 79-year-old man presented with weight loss. CT scan on 12/21/2024 done at [facility] showed left-sided lung nodules and mediastinal mass with pleural effusion. 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 He was referred to cardiothoracic surgery at [facility], underwent thoracotomy with biopsy on 02/08/2025. [...] He has tiredness, but doing his ADLs. 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 Normal [facility] Phosphoruson 03-14-2025 Phosphate [Mass/Vol] 3.3 mg/dL Normal 2.7-4.5 [facility] Comment on above: Performed By: #### L 3130.0010, L506.1001, L509.1000, L3300.0960 #### [facility] [address] [place], [place], [address] Platelet countOrdered By: Ty ra Youngblood on 03-14-2025 Platelets (Bld) [#/Vol] 252 10*3/uL 150-450 [facility] Platelet estimateOrdered By: Ondina Youngblood on 03-14-2025 Platelets LM Ql (Bld) ADEQUATE ADEQ [facility] Potassium measurement (mass/ volume)Ordered By: Ondina Youngblood on 03-14-2025 Potassium (Unsp spec) [Mass/Vol] 4.7 mmol/L 3.3-5.1 [facility] RBC Auto (Bld) [#/Vol]Ordere d By: Ondina Youngblood on 03-14-2025 RBC (Bld) [#/Vol] 3.14 10*6/uL Low 4.6-6.2 [facility] Review by pathologistOrdered By: Ondina Youngblood on 03-14-2025 Pathologist review Ko (Unsp spec) [Interp] September [facility] Serum creatinine measurement (mass/volume)Ordered By: Ondina Youngblood on 03-14-2025 Creatinine [Mass/Vol] 1.68 mg/dL High 0.70-1.20 [facility] Serum globulin measurementOr dered By: Ondina Youngblood on 03-14-2025 Globulin (S) [Mass/Vol] 3.0 g/dL 2.2-4.2 [facility] Serum glucose measurement (m ass/volume)Ordered By: Ondina Youngblood on 03-14-2025 Glucose [Mass/Vol] 100 mg/dL High 70-99 [facility] Serum or plasma alanine keen otransferase (ALT) measurementOrdered By: Ondina Youngblood on 03-14-2025 ALT [Catalytic activity/Vol] 34 U/L <47 [facility] Serum or plasma albumin emma urement (mass/volume)Ordered By: Ondina Youngblood on 03-14-2025 Albumin [Mass/Vol] 3.3 g/dL Low 3.4-4.8 [facility] Serum or plasma albumin/glob ulin mass ratioOrdered By: Ondina Youngblood on 03-14-2025 Albumin/Globulin [Mass ratio] 1.1 {ratio} 0.9-2.4 [facility] Serum or plasma alkaline david sphatase measurementOrdered By: Ondina Youngblood on 03-14-2025 ALP [Catalytic activity/Vol] 158 U/L High 40-129 [facility] Serum or plasma calcium emma urement (mass/volume)Ordered By: Ondina Youngblood on 03-14-2025 Calcium [Mass/Vol] 12.1 mg/dL High 7.6-11.0 [facility] Serum or plasma urea nitroge n measurement (mass/volume)Ordered By: Ondina Youngblood on 03-14-2025 Urea nitrogen [Mass/Vol] 54 mg/dL High 4-19 [facility] Serum or plasma uric acid me asurement (mass/volume)Ordered By: Ondina Ford on 03-14-2025 Urate [Mass/Vol] 4.2 mg/dL 3.5-7.2 [facility] Sodium levelOrdered By: Ondina Ford on 03-14-2025 Sodium [Moles/Vol] 136 mmol/L 133-145 [facility] Total cell countOrdered By: Ondina Ford on 03-14-2025 Cells counted Mol[employer] (Bld/Tiss) [#] 100 MANUAL DIFF [facility] Total proteinOrdered By: Shari elena ClevelandFord on 03-14-2025 Protein [Mass/Vol] 6.3 g/dL 5.9-8.4 [facility] Uric Acidon 03-14-2025 URIC 4.2 mg/dL Normal 3.5-7.2 [facility] Comment on above: Result Comment: The drugs N-Acetylcysteine and Metamizole may falsely depress this assay. Performed By: #### L 3130.0010, L506.1001, L509.1000, L3300.0960 #### [facility] [address] [place], [address] White blood cell (WBC) count Ordered By: Ondina Youngblood on 03-14-2025 WBC (Bld) [#/Vol] 51.3 10*3/uL Critically high 4.4-11.0 [facility] Sabf-1-Ukbrgvcueqvxc, Son B-2 MICROGLOBUL 5.3 mg/L High 0.6-2.4 [facility] Comment on above: Result Comment: Siem [facility] Immulite 2000 Immunochemiluminometric assay (ICMA) Values obtained with different assay methods or kits cannot be used interchangeably. Results cannot be interpreted as absolute evidence of the presence or absence of malignant disease. Performed at: [address] [id number] Payroll Clerk: Tahir Malave MD, Phone: [phone] Performed By: #### M 100.2900, M100.4001, L001.0705, L504.0250, L200.0200, L350.1000, M100.2000, L503.0300 #### [facility] [address] [place], [address] Hepatitis B/C Profile VIIIon 03-11-2025 COMMENT Comment Normal . [facility] Comment on above: Result Comment: Not infected with HCV unless early or acute infection is suspected (which may be delayed in an immunocompromised individual), or other evidence exists to indicate HCV infection. Performed at: [facility] [id number] Payroll Clerk: Torito Green PhD, Phone: [phone] Performed By: #### M 100.2900, M100.4001, L001.0705, L504.0250, L200.0200, L350.1000, M100.2000, L503.0300 #### [facility] [address] [place], [address] HEP B CORE,TOT Negative Normal Negative [facility] Comment on above: Performed By: #### M 100.2900, M100.4001, L001.0705, L504.0250, L200.0200, L350.1000, M100.2000, L503.0300 #### [facility] [address] [place], [address] Hep B Jay AB Non-Reactive Normal . [facility] Comment on above: Result Comment: Non Reactive: Not immune to HBV infection. Anti-HBs undetectable or less than 10 mIU/mL. Reactive: Evidence of HBV immunity. Anti-HBs levels greater than 10 mIU/mL. Performed By: #### M 100.2900, M100.4001, L001.0705, L504.0250, L200.0200, L350.1000, M100.2000, L503.0300 #### [facility] [address] [place], [place], [id number] (563) HEP B SURF AG Negative Normal Negative [facility] Comment on above: Performed By: #### M 100.2900, M100.4001, L001.0705, L504.0250, L200.0200, L350.1000, M100.2000, L503.0300 #### [facility] [address] [place], [place], [phone] (103) HEP C Antibody Non-Reactive Normal Non Reactive [facility] Comment on above: Performed By: #### M 100.2900, M100.4001, L001.0705, L504.0250, L200.0200, L350.1000, M100.2000, L503.0300 #### [facility] [address] [place], [address] HEPATITIS INTER Comment Normal . [facility] Comment on above: Result Comment: HBV Serology [...] L001.0705, L504.0250, L200.0200, L350.1000, M100.2000, L503.0300 #### [facility] [address] [place], [address] Automated lymphocyte count a s percentage of total leukocytesOrdered By: Ondina Ford on 03-10-2025 Lymphocytes/100 WBC Auto (Unsp spec) 2.6 % Low 19-41 [facility] Basophil percentageOrdered B y: Ondina Ford on 03-10-2025 Basophils/100 WBC (Bld) 0.1 % 0-1 [facility] CBC W/Diff, Automatedon 10-0 -2024 Absolute Lymph 0.55 X10 3/uL Low 0.83-4.51 [facility] Comment on above: Performed By: #### L 501.1400, L100.0100, L504.2610 ####[facility] [address] [place], [address] Absolute Neut 19.4 X10 3/uL High 2.0-7.7 [facility] Comment on above: Performed By: #### L 501.1400, L100.0100, L504.2610 ####[facility] [address] [place], [address] Basophils/100 WBC (Bld) 0.1 % Normal 0-1 [facility] Comment on above: Performed By: #### L 501.1400, L100.0100, L504.2610 ####[facility] [address] [place], [address] Eosinophils/100 WBC (Bld) 0.0 % Normal 0-5 [facility] Comment on above: Performed By: #### L 501.1400, L100.0100, L504.2610 ####[facility] [address] [place], [address] Erythrocyte distribution width (RBC) [Ratio] 15.1 % High 11.6-14.6 [facility] Comment on above: Performed By: #### L 501.1400, L100.0100, L504.2610 ####[facility] [address] [place], [address] Hematocrit (Bld) [Volume fraction] 29.6 % Low 40-54 [facility] Comment on above: Performed By: #### L 501.1400, L100.0100, L504.2610 ####[facility] [address] [place], [address] Hemoglobin (Bld) [Mass/Vol] 9.9 g/dL Low 13.0-16.5 [facility] Comment on above: Performed By: #### L 501.1400, L100.0100, L504.2610 ####[facility] [address] [place], [address] IG% 0.900 Normal 0.0-0.9 [facility] Comment on above: Result Comment: IG% - Immature Granulocytes (promyelocytes, myelocytes and metamyelocytes) > 1% indicates that a LEFT SHIFT is Present. Performed By: #### L 501.1400, L100.0100, L504.2610 ####[facility] [address] [place], [address] Lymphocytes/100 WBC (Bld) 2.6 % Low 19-41 [facility] Comment on above: Performed By: #### L 501.1400, L100.0100, L504.2610 ####[facility] [address] [place], [address] MCH (RBC) [Entitic mass] 29.8 pg Normal 27.0-32.0 [facility] Comment on above: Performed By: #### L 501.1400, L100.0100, L504.2610 ####[facility] [address] [place], [address] MCHC (RBC) [Mass/Vol] 33.4 g/dL Normal 32-36 [facility] Comment on above: Performed By: #### L 501.1400, L100.0100, L504.2610 ####[facility] [address] [place], [address] MCV (RBC) [Entitic vol] 89.2 fL Normal 80-94 [facility] Comment on above: Performed By: #### L 501.1400, L100.0100, L504.2610 ####[facility] [address] [place], [address] Monocytes/100 WBC (Bld) 4.7 % Normal 0-10 [facility] Comment on above: Performed By: #### L 501.1400, L100.0100, L504.2610 ####[facility] [address] [place], [address] Neutrophils/100 WBC (Bld) 91.7 % High 47-70 [facility] Comment on above: Performed By: #### L 501.1400, L100.0100, L504.2610 ####[facility] [address] [place], [address] Nucleated RBC (Bld) [#/Vol] 0 10*3/uL Normal 0-5 [facility] Comment on above: Performed By: #### L 501.1400, L100.0100, L504.2610 ####[facility] [address] [place], [address] Platelet mean volume (Bld) [Entitic vol] 10.7 fL Normal 6.2-12.0 [facility] Comment on above: Performed By: #### L 501.1400, L100.0100, L504.2610 ####[facility] [address] [place], [address] Platelets (Bld) [#/Vol] 418 10*3/uL Normal 150-450 [facility] Comment on above: Performed By: #### L 501.1400, L100.0100, L504.2610 ####[facility] [address] [place], [address] RBC (Bld) [#/Vol] 3.32 10*6/uL Low 4.6-6.2 [facility] Comment on above: Performed By: #### L 501.1400, L100.0100, L504.2610 ####[facility] [address] [place], [address] RDW SD 48.3 fl High 35.1-43.9 [facility] Comment on above: Performed By: #### L 501.1400, L100.0100, L504.2610 ####[facility] [address] [place], [address] WBC (Bld) [#/Vol] 21.2 10*3/uL High 4.4-11.0 [facility] Comment on above: Performed By: #### L 501.1400, L100.0100, L504.2610 ####[facility] [address] [place], [address] Absolute Neut Normal 2.0-7.7 [facility] Comment on above: Result Comment: DUPL ICATE ORDER Performed By: #### M 100.2900, M100.4001, L001.0705, L504.0250, L200.0200, L350.1000, M100.2000, L503.0300 #### [facility] [address] [place], [address] HCT Normal 40-54 [facility] Comment on above: Result Comment: DUPL ICATE ORDER Performed By: #### M 100.2900, M100.4001, L001.0705, L504.0250, L200.0200, L350.1000, M100.2000, L503.0300 #### [facility] [address] [place], [address] HGB Normal 13.0-16.5 [facility] Comment on above: Result Comment: DUPL ICATE ORDER Performed By: #### M 100.2900, M100.4001, L001.0705, L504.0250, L200.0200, L350.1000, M100.2000, L503.0300 #### [facility] [address] [place], [address] MCH Normal 27.0-32.0 [facility] Comment on above: Result Comment: DUPL ICATE ORDER Performed By: #### M 100.2900, M100.4001, L001.0705, L504.0250, L200.0200, L350.1000, M100.2000, L503.0300 #### [facility] [address] [place], [address] MCHC Normal 32-36 [facility] Comment on above: Result Comment: DUPL ICATE ORDER Performed By: #### M 100.2900, M100.4001, L001.0705, L504.0250, L200.0200, L350.1000, M100.2000, L503.0300 #### [facility] [address] [place], [address] MCV Normal 80-94 [facility] Comment on above: Result Comment: DUPL ICATE ORDER Performed By: #### M 100.2900, M100.4001, L001.0705, L504.0250, L200.0200, L350.1000, M100.2000, L503.0300 #### [facility] [address] [place], [address] NEUT% Normal 47-70 [facility] Comment on above: Result Comment: DUPL ICATE ORDER Performed By: #### M 100.2900, M100.4001, L001.0705, L504.0250, L200.0200, L350.1000, M100.2000, L503.0300 #### [facility] [address] [place], [address] PLT Normal 150-450 [facility] Comment on above: Result Comment: DUPL ICATE ORDER Performed By: #### M 100.2900, M100.4001, L001.0705, L504.0250, L200.0200, L350.1000, M100.2000, L503.0300 #### [facility] [address] [place], [address] RBC Normal 4.6-6.2 [facility] Comment on above: Result Comment: DUPL ICATE ORDER Performed By: #### M 100.2900, M100.4001, L001.0705, L504.0250, L200.0200, L350.1000, M100.2000, L503.0300 #### [facility] [address] [place], [address] RDW CV Normal 11.6-14.6 [facility] Comment on above: Result Comment: DUPL ICATE ORDER Performed By: #### M 100.2900, M100.4001, L001.0705, L504.0250, L200.0200, L350.1000, M100.2000, L503.0300 #### [facility] [address] [place], [address] RDW SD Normal 35.1-43.9 [facility] Comment on above: Result Comment: DUPL ICATE ORDER Performed By: #### M 100.2900, M100.4001, L001.0705, L504.0250, L200.0200, L350.1000, M100.2000, L503.0300 #### [facility] [address] [place], [address] WBC Normal 4.4-11.0 [facility] Comment on above: Result Comment: DUPL ICATE ORDER Performed By: #### M 100.2900, M100.4001, L001.0705, L504.0250, L200.0200, L350.1000, M100.2000, L503.0300 #### [facility] [address] [place], [address] Comprehensive Metabolic Prof ilon 03-10-2025 CO2 [Moles/Vol] 19.7 mmol/L Low 21.0-32.0 [facility] Comment on above: Performed By: #### M 100.2900, M100.4001, L001.0705, L504.0250, L200.0200, L350.1000, M100.2000, L503.0300 #### [facility] [address] [place], [address] ALB Normal 3.4-4.8 [facility] Comment on above: Result Comment: DUPL ICATE ORDER Performed By: #### M 100.2900, M100.4001, L001.0705, L504.0250, L200.0200, L350.1000, M100.2000, L503.0300 #### [facility] [address] [place], [address] ALK PHOS Normal 40-129 [facility] Comment on above: Result Comment: DUPL ICATE ORDER Performed By: #### M 100.2900, M100.4001, L001.0705, L504.0250, L200.0200, L350.1000, M100.2000, L503.0300 #### [facility] [address] [place], [address] ALT Normal <=46 [facility] Comment on above: Result Comment: DUPL ICATE ORDER Performed By: #### M 100.2900, M100.4001, L001.0705, L504.0250, L200.0200, L350.1000, M100.2000, L503.0300 #### [facility] [address] [place], [address] AST Normal <=37 [facility] Comment on above: Result Comment: DUPL ICATE ORDER Performed By: #### M 100.2900, M100.4001, L001.0705, L504.0250, L200.0200, L350.1000, M100.2000, L503.0300 #### [facility] [address] [place], [address] BUN Normal 4-19 [facility] Comment on above: Result Comment: DUPL ICATE ORDER Performed By: #### M 100.2900, M100.4001, L001.0705, L504.0250, L200.0200, L350.1000, M100.2000, L503.0300 #### [facility] [address] [place], [address] BUN/CRE Normal 10-20 [facility] Comment on above: Result Comment: DUPL ICATE ORDER Performed By: #### M 100.2900, M100.4001, L001.0705, L504.0250, L200.0200, L350.1000, M100.2000, L503.0300 #### [facility] [address] [place], [address] Calcium Normal 7.6-11.0 [facility] Comment on above: Result Comment: DUPL ICATE ORDER Performed By: #### M 100.2900, M100.4001, L001.0705, L504.0250, L200.0200, L350.1000, M100.2000, L503.0300 #### [facility] [address] [place], [address] CL Normal 98-108 [facility] Comment on above: Result Comment: DUPL ICATE ORDER Performed By: #### M 100.2900, M100.4001, L001.0705, L504.0250, L200.0200, L350.1000, M100.2000, L503.0300 #### [facility] [address] [place], [address] CO2 Normal 21.0-32.0 [facility] Comment on above: Result Comment: DUPL ICATE ORDER Performed By: #### M 100.2900, M100.4001, L001.0705, L504.0250, L200.0200, L350.1000, M100.2000, L503.0300 #### [facility] [address] [place], [address] CREAT,SERUM Normal 0.70-1.20 [facility] Comment on above: Result Comment: DUPL ICATE ORDER Performed By: #### M 100.2900, M100.4001, L001.0705, L504.0250, L200.0200, L350.1000, M100.2000, L503.0300 #### [facility] [address] [place], [address] eGFR Normal >60 [facility] Comment on above: Result Comment: DUPL ICATE ORDER Performed By: #### M 100.2900, M100.4001, L001.0705, L504.0250, L200.0200, L350.1000, M100.2000, L503.0300 #### [facility] [address] [place], [address] GAP Normal 5-15 [facility] Comment on above: Result Comment: DUPL ICATE ORDER Performed By: #### M 100.2900, M100.4001, L001.0705, L504.0250, L200.0200, L350.1000, M100.2000, L503.0300 #### [facility] [address] [place], [address] GLU Normal 70-99 [facility] Comment on above: Result Comment: DUPL ICATE ORDER Performed By: #### M 100.2900, M100.4001, L001.0705, L504.0250, L200.0200, L350.1000, M100.2000, L503.0300 #### [facility] [address] [place], [address] Potassium Normal 3.3-5.1 [facility] Comment on above: Result Comment: DUPL ICATE ORDER Performed By: #### M 100.2900, M100.4001, L001.0705, L504.0250, L200.0200, L350.1000, M100.2000, L503.0300 #### [facility] [address] [place], [address] T BILI Normal 0.00-1.30 [facility] Comment on above: Result Comment: DUPL ICATE ORDER Performed By: #### M 100.2900, M100.4001, L001.0705, L504.0250, L200.0200, L350.1000, M100.2000, L503.0300 #### [facility] [address] [place], [address] T PROT Normal 5.9-8.4 [facility] Comment on above: Result Comment: DUPL ICATE ORDER Performed By: #### M 100.2900, M100.4001, L001.0705, L504.0250, L200.0200, L350.1000, M100.2000, L503.0300 #### [facility] [address] [place], [address] Comprehensive Metabolic Profil Normal 133-145 [facility] Comment on above: Result Comment: DUPL ICATE ORDER Performed By: #### M 100.2900, M100.4001, L001.0705, L504.0250, L200.0200, L350.1000, M100.2000, L503.0300 #### [facility] [address] [place], [address] Eosinophil percentageOrdered By: Ondina Youngblood on 03-10-2025 Eosinophils/100 WBC (Bld) 0.0 % 0-5 [facility] HIVon 03-10-2025 HIV Non-Reactive Normal Nonreactive [facility] Comment on above: Result Comment: Non- Reactive Reactive Repeatedly reactive samples must be confirmed according to CDC recommended confirmatory algorithms. The subresults for either HIVAG or AHIV can be used as an aid in the selection of the confirmation algorithm for reactive samples. Send out specimens with Reactive results to [facility] for confirmation. Order the HIV antibody detection and differentiation: [id number] Performed By: #### M 100.2900, M100.4001, L001.0705, L504.0250, L200.0200, L350.1000, M100.2000, L503.0300 #### [facility] [address] [place], [address] Immature granulocytes/100 WB C Auto (Bld)Ordered By: Ondina Youngblood on 03-10-2025 Immature granulocytes/100 WBC (Bld) 0.900 % 0.0-0.9 [facility] LDHon 03-10-2025 LDH 194 U/L Normal 87-241 [facility] Comment on above: Order Comment: 1 Performed By: #### L 501.1400, L100.0100, L504.2610 ####[facility] [address] [place], [address] Magnesiumon 03-10-2025 Magnesium [Mass/Vol] 2.3 mg/dL High 1.5-2.2 [facility] Comment on above: Performed By: #### M 100.2900, M100.4001, L001.0705, L504.0250, L200.0200, L350.1000, M100.2000, L503.0300 #### [facility] [address] [place], [address] Monocyte percentageOrdered B y: Ondina Youngblood on 03-10-2025 Monocytes/100 WBC (Bld) 4.7 % 0-10 [facility] No Panel InformationOrdered By: Parrish Miranda on 03-10-2025 Comment . [facility] Non-Reactive Nonreactive [facility] Oncology Visit Reporton 10- Oncology Visit Report [facility] [place] [address] OFFICE VISIT Date of Service: 03/10/25929 MR#: [id number] Acct: [id number] Name: JUJU CACERES Rep #: [id number] : 1945 From: Parrish Miranda MD Age/Sex: 79/M Location: [facility] Status: Signed HPI Subjective Date of Service 03/10/25 Chief Complaint F/u for DLBCL and therapy. History of Present Illness 79-year-old man presented with weight loss. CT scan on 12/21/2024 done at [facility] showed left-sided lung nodules and mediastinal mass with pleural effusion. 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 He was referred to cardiothoracic surgery at [facility], underwent thoracotomy with biopsy on 02/08/2025. 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 He was found to have hypercalcemia. He had a PET/CT, Echocardiogram done and comes for follow up. He has tiredness, but doing his ADLs. 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 Nearly all areas are contiguous. Other: Cvob-tg-fmhumpek sigmoid diverticulosis. Please note the low-dose CT scan was performed to facilitate PET image reconstruction and anatomic localization and does not replace a diagnostic CT. Any diagnostic CT requested and performed at the time of the PET will be reported separately. Electronically Signed By: Rodney Delgado (more content not included)... Normal [facility] Phosphoruson 03-10-2025 Phosphate [Mass/Vol] 4.1 mg/dL Normal 2.7-4.5 [facility] Comment on above: Performed By: #### M 100.2900, M100.4001, L001.0705, L504.0250, L200.0200, L350.1000, M100.2000, L503.0300 #### [facility] [place], [address] Serum hepatitis B virus core antibody detectionOrdered By: Parrish Miranda on 03-10-2025 HBV core Ab Ql (S) Negative Negative [facility] Serum or plasma cwuy-7-eilbr globulin measurement (mass/volume)Ordered By: Ondina Youngblood on 03-10-2025 Vgdk-5-Lhfpelkqmsfns [Mass/Vol] 5.3 ug/mL High 0.6-2.4 [facility] Serum or plasma hepatitis B virus surface antigen detection by immunoassayOrdered By: Parrish Miranda on 03-10-2025 HBV surface Ag IA Ql Negative Negative [facility] Uric Acidon 03-10-2025 URIC 4.4 mg/dL Normal 3.5-7.2 [facility] Comment on above: Result Comment: The drugs N-Acetylcysteine and Metamizole may falsely depress this assay. Performed By: #### L 501.1400, L100.0100, L504.2610 ####[facility] [address] [place], [place], [address] PET/CT Tumor Base -Thigh Ini ton 03-08-2025 PET/CT Tumor Base -Thigh Init [facility] Imaging Services [address] [place], [place] [address] PET/CT Tumor Base -Thigh Init MR#: [id number] Acct: [id number] Name: JUJU CACERES Rep #: [id number] : 1945 M 79 From: Rodney Gavin PCP: Dr. Michelet Good, DO Status: REG RCR Study: PET/CT Tumor Base -Thigh Init Date of Exam: Exam# [id number] Ordering Dr: Parrish Miranda MD PROCEDURE: PET/CT [...] muscles. Nearly all areas are contiguous. Other: Riua-py-wudfutuq sigmoid diverticulosis. Please note the low-dose CT scan was performed to facilitate PET image reconstruction and anatomic localization and does not replace a diagnostic CT. Any diagnostic CT requested and performed at the time of the PET will be reported separately. Reading Location: [place] [address] CC: Dr. Parrish Miranda MD; Dr. 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: Signed Normal [facility] Matb-5-Izkzmosogvsnr, Son B-2 MICROGLOBUL 7.0 mg/L High 0.6-2.4 [facility] Comment on above: Result Comment: [facility] Immulite 2000 Immunochemiluminometric assay (ICMA) Values obtained with different assay methods or kits cannot be used interchangeably. Results cannot be interpreted as absolute evidence of the presence or absence of malignant disease. Performed at: [address] [id number] Payroll Clerk: Tahir Malave MD, Phone: [phone] Performed By: #### L 3130.0010, L506.1001, L509.1000, L3300.0960 #### [facility] [address] [facility] [place], [address] Chest PA and Lateralon 03-03 Chest PA and Lateral [facility] Imaging Services [address] [place], [place] [address] Chest PA and Lateral MR#: [id number] Acct: [id number] Name: JUJU CACERES Rep #: [id number] : 1945 M 79 From: Mark Chakraborty MD PCP: Dr. Michelet Good DO Status: REG CLI Study: Chest PA and Lateral Date of Exam: 03/03/25 Exam# [id number] Ordering Dr: Parrish Miranda MD PROCEDURE: CHEST [...] atelectasis in the left lung. Reading Location: [place] [address] CC: Dr. Parrish Miranda MD; Dr. 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: Signed Normal [facility] Erythropoietinon 03-03-2025 ERYTHROPOIETIN 18.3 mIU/mL Normal 2.6-18.5 [facility] Comment on above: Result Comment: [facility] 800 Immunoassay System Values obtained with different assay methods or kits cannot be used interchangeably. Results cannot be interpreted as absolute evidence of the presence or absence of malignant disease. Performed at: [facility] [employer] [id number] Payroll Clerk: Torito Green PhD, Phone: [phone] Performed By: #### L 3130.0010, L506.1001, L509.1000, L3300.0960 #### [facility] [address] [place], [address] ONC Echo Completeon 03-03-20 ONC Echo Complete [facility] [address] [place] [address] ONC Echo Complete 03/03/25 1046 MR#: [id number] Acct: [id number] Name: JUJU CACERES Rep #: [id number] : 1945 79 From: Sahil Stewart MD Attending Dr: Dr. Parrish Miranda MD Status: REG C LI Ordering Dr: Parrish Miranda MD Date: 03/03/25 Location: [facility] Sex: M C Admitted: Reason For [...] Date Dictated: 03/03/25 1046 Date Transcribed: 03/03/251254 City Planning Teacher: Signed Normal [facility] Absolute lymphocyte countOrd ered By: Parrish Miranda on 03-02-2025 Lymphocytes Auto (Unsp spec) [#/Vol] 0.47 10*3/uL Low 0.83-4.51 [facility] Absolute neutrophil countOrd ered By: Parrish Miranda on 03-02-2025 Neutrophils (Bld) [#/Vol] 14.5 10*3/uL High 2.0-7.7 [facility] Activated partial thrombopla stin time (aPTT) in platelet poor plasma by coagulation aOrdered By: Parrish Miranda on 03-02-2025 aPTT Coag (PPP) [Time] 30.7 s 24.1-36.2 [facility] Anion gap in Serum or Plasma Ordered By: Parrish Miranda on 03-02-2025 Anion gap [Moles/Vol] 17 mmol/L High 5-15 [facility] Automated lymphocyte count a s percentage of total leukocytesOrdered By: Parrish Miranda on 03-02-2025 Lymphocytes/100 WBC Auto (Unsp spec) 2.9 % Low 19-41 [facility] BUN/creatinine ratioOrdered By: Parrish Monroe on 03-02-2025 Urea nitrogen/Creatinine [Mass ratio] 32.0 mg/mg High 10-20 [facility] Basophil percentageOrdered B y: Parrish Miranda on 03-02-2025 Basophils/100 WBC (Bld) 0.1 % 0-1 [facility] Bilirubin, totalOrdered By: Parrish [facility] on 03-02-2025 Bilirubin [Mass/Vol] 0.31 mg/dL 0.00-1.30 [facility] CBC W/Diff, Automatedon - Absolute Lymph 0.47 X10 3/uL Low 0.83-4.51 [facility] Comment on above: Performed By: #### L 100.9950, L500.4050, L501.6710, L101.9900, L506.0200, L300.3900, L501.2300, L501.1400, L3890.5000, L503.6030, L501.5200, L504.2610, L100.0100, L3100.1350, L503.0106, L503.6550, L300.4310 ####[facility] [address] [place], [place], [id number] Absolute Neut 14.5 X10 3/uL High 2.0-7.7 [facility] Comment on above: Performed By: #### L 100.9950, L500.4050, L501.6710, L101.9900, L506.0200, L300.3900, L501.2300, L501.1400, L3890.5000, L503.6030, L501.5200, L504.2610, L100.0100, L3100.1350, L503.0106, L503.6550, L300.4310 ####[facility] [address] [place], [address] Basophils/100 WBC (Bld) 0.1 % Normal 0-1 [facility] Comment on above: Performed By: #### L 100.9950, L500.4050, L501.6710, L101.9900, L506.0200, L300.3900, L501.2300, L501.1400, L3890.5000, L503.6030, L501.5200, L504.2610, L100.0100, L3100.1350, L503.0106, L503.6550, L300.4310 ####[facility] [address] [place], [phone]) Eosinophils/100 WBC (Bld) 0.4 % Normal 0-5 [facility] Comment on above: Performed By: #### L 100.9950, L500.4050, L501.6710, L101.9900, L506.0200, L300.3900, L501.2300, L501.1400, L3890.5000, L503.6030, L501.5200, L504.2610, L100.0100, L3100.1350, L503.0106, L503.6550, L300.4310 ####[facility] [address] [place], [address] Erythrocyte distribution width (RBC) [Ratio] 14.8 % High 11.6-14.6 [facility] Comment on above: Performed By: #### L 100.9950, L500.4050, L501.6710, L101.9900, L506.0200, L300.3900, L501.2300, L501.1400, L3890.5000, L503.6030, L501.5200, L504.2610, L100.0100, L3100.1350, L503.0106, L503.6550, L300.4310 ####[facility] [address] [place], [address] Hematocrit (Bld) [Volume fraction] 27.4 % Low 40-54 [facility] Comment on above: Performed By: #### L 100.9950, L500.4050, L501.6710, L101.9900, L506.0200, L300.3900, L501.2300, L501.1400, L3890.5000, L503.6030, L501.5200, L504.2610, L100.0100, L3100.1350, L503.0106, L503.6550, L300.4310 ####[facility] [address] [place], [address] Hemoglobin (Bld) [Mass/Vol] 9.0 g/dL Low 13.0-16.5 [facility] Comment on above: Performed By: #### L 100.9950, L500.4050, L501.6710, L101.9900, L506.0200, L300.3900, L501.2300, L501.1400, L3890.5000, L503.6030, L501.5200, L504.2610, L100.0100, L3100.1350, L503.0106, L503.6550, L300.4310 ####[facility] [address] [place], [address] IG% 0.600 Normal 0.0-0.9 [facility] Comment on above: Result Comment: IG% - Immature Granulocytes (promyelocytes, myelocytes and metamyelocytes) > 1% indicates that a LEFT SHIFT is Present. Performed By: #### L 100.9950, L500.4050, L501.6710, L101.9900, L506.0200, L300.3900, L501.2300, L501.1400, L3890.5000, L503.6030, L501.5200, L504.2610, L100.0100, L3100.1350, L503.0106, L503.6550, L300.4310 ####[facility] [address] [place], [place], [phone] Lymphocytes/100 WBC (Bld) 2.9 % Low 19-41 [facility] Comment on above: Performed By: #### L 100.9950, L500.4050, L501.6710, L101.9900, L506.0200, L300.3900, L501.2300, L501.1400, L3890.5000, L503.6030, L501.5200, L504.2610, L100.0100, L3100.1350, L503.0106, L503.6550, L300.4310 ####[facility] [address] [place], [place], [phone] MCH (RBC) [Entitic mass] 29.6 pg Normal 27.0-32.0 [facility] Comment on above: Performed By: #### L 100.9950, L500.4050, L501.6710, L101.9900, L506.0200, L300.3900, L501.2300, L501.1400, L3890.5000, L503.6030, L501.5200, L504.2610, L100.0100, L3100.1350, L503.0106, L503.6550, L300.4310 ####[facility] [address] [place], [place], [id number] MCHC (RBC) [Mass/Vol] 32.8 g/dL Normal 32-36 [facility] Comment on above: Performed By: #### L 100.9950, L500.4050, L501.6710, L101.9900, L506.0200, L300.3900, L501.2300, L501.1400, L3890.5000, L503.6030, L501.5200, L504.2610, L100.0100, L3100.1350, L503.0106, L503.6550, L300.4310 ####[facility] [address] [place], [place], [phone] MCV (RBC) [Entitic vol] 90.1 fL Normal 80-94 [facility] Comment on above: Performed By: #### L 100.9950, L500.4050, L501.6710, L101.9900, L506.0200, L300.3900, L501.2300, L501.1400, L3890.5000, L503.6030, L501.5200, L504.2610, L100.0100, L3100.1350, L503.0106, L503.6550, L300.4310 ####[facility] [address] [facility]. [place], [place], [phone] Monocytes/100 WBC (Bld) 6.0 % Normal 0-10 [facility] Comment on above: Performed By: #### L 100.9950, L500.4050, L501.6710, L101.9900, L506.0200, L300.3900, L501.2300, L501.1400, L3890.5000, L503.6030, L501.5200, L504.2610, L100.0100, L3100.1350, L503.0106, L503.6550, L300.4310 ####[facility] [address] [facility] [address] [place], [place], [phone] Neutrophils/100 WBC (Bld) 90.0 % High 47-70 [facility] Comment on above: Performed By: #### L 100.9950, L500.4050, L501.6710, L101.9900, L506.0200, L300.3900, L501.2300, L501.1400, L3890.5000, L503.6030, L501.5200, L504.2610, L100.0100, L3100.1350, L503.0106, L503.6550, L300.4310 ####[facility] [address] [facility] [place], [address] Nucleated RBC (Bld) [#/Vol] 0 10*3/uL Normal 0-5 [facility] Comment on above: Performed By: #### L 100.9950, L500.4050, L501.6710, L101.9900, L506.0200, L300.3900, L501.2300, L501.1400, L3890.5000, L503.6030, L501.5200, L504.2610, L100.0100, L3100.1350, L503.0106, L503.6550, L300.4310 ####[facility] [address] [place], [address] Platelet mean volume (Bld) [Entitic vol] 10.2 fL Normal 6.2-12.0 [facility] Comment on above: Performed By: #### L 100.9950, L500.4050, L501.6710, L101.9900, L506.0200, L300.3900, L501.2300, L501.1400, L3890.5000, L503.6030, L501.5200, L504.2610, L100.0100, L3100.1350, L503.0106, L503.6550, L300.4310 ####[facility] [address] [place], [address] Platelets (Bld) [#/Vol] 557 10*3/uL High 150-450 [facility] Comment on above: Performed By: #### L 100.9950, L500.4050, L501.6710, L101.9900, L506.0200, L300.3900, L501.2300, L501.1400, L3890.5000, L503.6030, L501.5200, L504.2610, L100.0100, L3100.1350, L503.0106, L503.6550, L300.4310 ####[facility] [address] [place], [place], [phone] RBC (Bld) [#/Vol] 3.04 10*6/uL Low 4.6-6.2 [facility] Comment on above: Performed By: #### L 100.9950, L500.4050, L501.6710, L101.9900, L506.0200, L300.3900, L501.2300, L501.1400, L3890.5000, L503.6030, L501.5200, L504.2610, L100.0100, L3100.1350, L503.0106, L503.6550, L300.4310 ####[facility] [address] [place], [place], [phone] RDW SD 48.3 fl High 35.1-43.9 [facility] Comment on above: Performed By: #### L 100.9950, L500.4050, L501.6710, L101.9900, L506.0200, L300.3900, L501.2300, L501.1400, L3890.5000, L503.6030, L501.5200, L504.2610, L100.0100, L3100.1350, L503.0106, L503.6550, L300.4310 ####[facility] [address] [place], [place], [address] WBC (Bld) [#/Vol] 16.1 10*3/uL High 4.4-11.0 [facility] Comment on above: Performed By: #### L 100.9950, L500.4050, L501.6710, L101.9900, L506.0200, L300.3900, L501.2300, L501.1400, L3890.5000, L503.6030, L501.5200, L504.2610, L100.0100, L3100.1350, L503.0106, L503.6550, L300.4310 ####[facility] [address] [place], [address] CRPon 03-02-2025 C-REACTIVE PROT 114.00 mg/L High 0.0-3.0 [facility] Comment on above: Performed By: #### L 3130.0010, L506.1001, L509.1000, L3300.0960 #### [facility] [address] [place], [address] Carbon dioxide, total [Moles /volume] in Central venous bloodOrdered By: Parrish Miranda on 03-02-2025 CO2 [Moles/Vol] 19.0 mmol/L Low 21.0-32.0 [facility] Chloride assayOrdered By: Allison Miranda on 03-02-2025 Chloride [Moles/Vol] 98 mmol/L 98-108 [facility] Comprehensive Metabolic Prof ilon 03-02-2025 Albumin [Mass/Vol] 3.6 g/dL Normal 3.4-4.8 [facility] Comment on above: Performed By: #### L 3130.0010, L506.1001, L509.1000, L3300.0960 #### [facility] [address] [place], [address] Albumin/Globulin [Mass ratio] 1.0 {ratio} Normal 0.9-2.4 [facility] Comment on above: Performed By: #### L 3130.0010, L506.1001, L509.1000, L3300.0960 #### [facility] [address] [place], [address] ALK PHOS 112 U/L Normal 40-129 [facility] Comment on above: Performed By: #### L 3130.0010, L506.1001, L509.1000, L3300.0960 #### [facility] [address] [place], [address] ALT [Catalytic activity/Vol] 84 U/L High <=46 [facility] Comment on above: Performed By: #### L 3130.0010, L506.1001, L509.1000, L3300.0960 #### [facility] [address] [place], [address] AST [Catalytic activity/Vol] 30 U/L Normal <=37 [facility] Comment on above: Performed By: #### L 3130.0010, L506.1001, L509.1000, L3300.0960 #### [facility] [address] [place], [address] Bilirubin [Mass/Vol] 0.31 mg/dL Normal 0.00-1.30 [facility] Comment on above: Performed By: #### L 3130.0010, L506.1001, L509.1000, L3300.0960 #### [facility] [address] [place], [address] BUN/CRE 32.0 RATIO High 10-20 [facility] Comment on above: Performed By: #### L 3130.0010, L506.1001, L509.1000, L3300.0960 #### [facility] [address] [place], [address] Calcium [Mass/Vol] 13.9 mg/dL Invalid Interpretation Code 7.6-11.0 [facility] Comment on above: Result Comment: CALL ED 5 TIMES WITH NO ANSWER-LEFT VOICEMAIL @ 3241 03/02/2025 CRITICAL RESULT CALLED TO [facility] BY NATALIE HO. RESULTS READ BACK BY SAME. 1247 Performed By: #### L 3130.0010, L506.1001, L509.1000, L3300.0960 #### [facility] [address] [place], [address] Chloride [Moles/Vol] 98 mmol/L Normal 98-108 [facility] Comment on above: Performed By: #### L 3130.0010, L506.1001, L509.1000, L3300.0960 #### [facility] [address] [place], [address] CO2 [Moles/Vol] 19.0 mmol/L Low 21.0-32.0 [facility] Comment on above: Performed By: #### L 3130.0010, L506.1001, L509.1000, L3300.0960 #### [facility] [address] [place], [address] Creatinine [Mass/Vol] 1.97 mg/dL High 0.70-1.20 [facility] Comment on above: Performed By: #### L 3130.0010, L506.1001, L509.1000, L3300.0960 #### [facility] [address] [place], [address] GAP 17 High 5-15 [facility] Comment on above: Performed By: #### L 3130.0010, L506.1001, L509.1000, L3300.0960 #### [facility] [address] [place], [address] GFR/1.73 sq M.predicted among non-blacks MDRD (S/P/Bld) [Vol rate/Area] 34 mL/min/{1.73_m2} Low >60 [facility] Comment on above: Result Comment: mL/m in/1.73m2 CKD-EPI Creatinine Equation (2020) Performed By: #### L 3130.0010, L506.1001, L509.1000, L3300.0960 #### [facility] [address] [place], [address] Globulin (S) [Mass/Vol] 3.6 g/dL Normal 2.2-4.2 [facility] Comment on above: Performed By: #### L 3130.0010, L506.1001, L509.1000, L3300.0960 #### [facility] [address] [place], [address] Glucose [Mass/Vol] 107 mg/dL High 70-99 [facility] Comment on above: Performed By: #### L 3130.0010, L506.1001, L509.1000, L3300.0960 #### [facility] [address] [place], [address] Potassium [Moles/Vol] 4.1 mmol/L Normal 3.3-5.1 [facility] Comment on above: Performed By: #### L 3130.0010, L506.1001, L509.1000, L3300.0960 #### [facility] [address] [place], [address] Sodium [Moles/Vol] 134 mmol/L Normal 133-145 [facility] Comment on above: Performed By: #### L 3130.0010, L506.1001, L509.1000, L3300.0960 #### [facility] [address] [place], [address] T PROT 7.2 g/dL Normal 5.9-8.4 [facility] Comment on above: Performed By: #### L 3130.0010, L506.1001, L509.1000, L3300.0960 #### [facility] [address] [place], [address] Urea nitrogen [Mass/Vol] 63 mg/dL High 4-19 [facility] Comment on above: Performed By: #### L 3130.0010, L506.1001, L509.1000, L3300.0960 #### [facility] [address] [place], [address] Eosinophil percentageOrdered By: Parrish Miranda on 03-02-2025 Eosinophils/100 WBC (Bld) 0.4 % 0-5 [facility] Erythrocyte Sed Rateon 03-02 SED RATE 61 mm/hr High 0-20 [facility] Comment on above: Performed By: #### L 100.9950, L500.4050, L501.6710, L101.9900, L506.0200, L300.3900, L501.2300, L501.1400, L3890.5000, L503.6030, L501.5200, L504.2610, L100.0100, L3100.1350, L503.0106, L503.6550, L300.4310 ####[facility] [address] [place], [address] Erythrocyte distribution wid th ratioOrdered By: Parrish Ruben on 03-02-2025 Erythrocyte distribution width (RBC) [Ratio] 14.8 % High 11.6-14.6 [facility] Erythrocyte distribution wid th standard deviationOrdered By: Parrish Ruben on 03-02-2025 Erythrocyte distribution width (RBC) [Ratio] 48.3 fl High 35.1-43.9 [facility] Erythrocyte sedimentation ra teOrdered By: Parrish Miranda on 03-02-2025 ESR (Bld) [Velocity] 61 mm/h High 0-20 [facility] Ferritinon 03-02-2025 Ferritin [Mass/Vol] 1522 ng/mL High 37-417 [facility] Comment on above: Performed By: #### L 3130.0010, L506.1001, L509.1000, L3300.0960 #### [facility] [address] [place], [place], [address] Folate [Mass/volume] in Seru m or PlasmaOrdered By: Parrish Miranda on 03-02-2025 Folate [Mass/Vol] 5.81 ng/mL 4.60-34.80 [facility] Comment on above: Hemolysis, Results w ill be affected, Requires Recollection. Folates,Serum (Folic Acid)on 03-02-2025 FOLATES,SERUM 5.81 ng/mL Normal 4.60-34.80 [facility] Comment on above: Order Comment: N Result Comment: Hemo lysis, Results will be affected, Requires Recollection. Performed By: #### L 3130.0010, L506.1001, L509.1000, L3300.0960 #### [facility] [address] [place], [place], [id number] Glomerular filtration rate ( GFR) estimation/1.73 sq m using serum, plasma, or whole bOrdered By: Parrish Miranda on 03-02-2025 GFR/1.73 sq M.predicted among non-blacks MDRD (S/P/Bld) [Vol rate/Area] 34 mL/min/{1.73_m2} Low >60 [facility] Comment on above: mL/min/1.73m2 CKD-EP I Creatinine Equation (2020) Hematocrit Auto (Bld) [Volum e fraction]Ordered By: Parrish Miranda on 03-02-2025 Hematocrit (Bld) [Volume fraction] 27.4 % Low 40-54 [facility] Hemoglobin measurementOrdere d By: Parrish Miranda on 03-02-2025 Hemoglobin (Bld) [Mass/Vol] 9.0 g/dL Low 13.0-16.5 [facility] Immature granulocytes/100 WB C Auto (Bld)Ordered By: Parrish Miranda on 03-02-2025 Immature granulocytes/100 WBC (Bld) 0.600 % 0.0-0.9 [facility] Comment on above: IG% - Immature Granu locytes (promyelocytes, myelocytes and metamyelocytes) > 1% indicates that a LEFT SHIFT is Present. International normalized rat io (INR) calculationOrdered By: Parrish Miranda on 03-02-2025 INR Coag (Bld) [Relative time] 1.1 {INR} [facility] Iron measurement (mass/mass) Ordered By: Parrish Miranda on 03-02-2025 Iron (Unsp spec) [Mass/Mass] 52 ug/dL Low 65-175 [facility] Iron+Iron Binding Capacityon 03-02-2025 TIBC 228 ug/dL Low 250-450 [facility] Comment on above: Performed By: #### L 3130.0010, L506.1001, L509.1000, L3300.0960 #### [facility] [address] [place], [place], [id number] LDHon 03-02-2025 LDH 171 U/L Normal 87-241 [facility] Comment on above: Order Comment: 1 Performed By: #### L 3130.0010, L506.1001, L509.1000, L3300.0960 #### [facility] [address] [place], [place], [id number] Laboratory - Chemistry and C hemistry - challengeOrdered By: Parrish Miranda on 03-02-2025 AST [Catalytic activity/Vol] 30 U/L <38 [facility] Lactate dehydrogenase (LDH) measurementOrdered By: Parrish Miranda on 03-02-2025 LDH [Catalytic activity/Vol] 171 U/L 87-241 [facility] MCV (mean corpuscular volume ) determinationOrdered By: Parrish Miranda on 03-02-2025 MCV (RBC) [Entitic vol] 90.1 fL 80-94 [facility] Magnesiumon 03-02-2025 Magnesium [Mass/Vol] 2.6 mg/dL High 1.5-2.2 [facility] Comment on above: Performed By: #### L 3130.0010, L506.1001, L509.1000, L3300.0960 #### [facility] [address] [place], [place], [address] Magnesium measurement (mass/ volume)Ordered By: Parrish Miranda on 03-02-2025 Magnesium (Unsp spec) [Mass/Vol] 2.6 mg/dL High 1.5-2.2 [facility] Mean corpuscular hemoglobin (MCH) determinationOrdered By: Parrish Miranda on 03-02-2025 MCH (RBC) [Entitic mass] 29.6 pg 27.0-32.0 [facility] Mean corpuscular hemoglobin concentration (MCHC) determinationOrdered By: Parrish Miranda on 03-02-2025 MCHC (RBC) [Mass/Vol] 32.8 g/dL 32-36 [facility] Mean platelet volume determi nationOrdered By: Parrish Miranda on 03-02-2025 Platelet mean volume (Bld) [Entitic vol] 10.2 fL 6.2-12.0 [facility] Monocyte percentageOrdered B y: Parrish Miranda on 03-02-2025 Monocytes/100 WBC (Bld) 6.0 % 0-10 [facility] Neutrophil percentageOrdered By: Parrish Miranda on 03-02-2025 Neutrophils/100 WBC (Bld) 90.0 % High 47-70 [facility] No Panel InformationOrdered By: Parrish Miranda on 03-02-2025 Unsaturated Iron Binding Capacity 176 ug/dL Low 228-428 [facility] 176 ug/dL Low 228-428 [facility] Nucleated red blood cell per centageOrdered By: Parrish Miranda on 03-02-2025 Nucleated RBC/100 WBC (Bld) [Ratio] 0 % 0-5 [facility] Oncology Visit Reporton Oncology Visit Report [facility] [place] [facility] [address] [place] [address] OFFICE VISIT Date of Service: 03/02/25 0950 MR#: [id number] Acct: [id number] Name: JUJU CACERES Rep #: [id number] : 1945 From: Parrish Miranda MD Age/Sex: 79/M Location: [facility] Status: Signed HPI Subjective Date of Service 03/02/25 Chief Complaint Referred for Lymphoma. History of Present Illness 79-year-old man presented with weight loss. CT scan on 12/21/2024 done at [facility] showed left-sided lung nodules and mediastinal mass with pleural effusion. 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 He was referred to cardiothoracic surgery at [facility], underwent thoracotomy with biopsy on 02/08/2025. 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 He was found to have hypercalcemia and has been on steroids for a few days. He has tiredness, but doing his ADLs. 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 Normal [facility] Partial Thromboplast Timeon 03-02-2025 aPTT Coag (Bld) [Time] 30.7 s Normal 24.1-36.2 [facility] Comment on above: Performed By: #### L 3130.0010, L506.1001, L509.1000, L3300.0960 #### [facility] [address] [place], [address] Phosphoruson 03-02-2025 Phosphate [Mass/Vol] 3.5 mg/dL Normal 2.7-4.5 [facility] Comment on above: Performed By: #### L 3130.0010, L506.1001, L509.1000, L3300.0960 #### [facility] [address] [place], [address] Platelet countOrdered By: Allison Miranda on 03-02-2025 Platelets (Bld) [#/Vol] 557 10*3/uL High 150-450 [facility] Potassium measurement (mass/ volume)Ordered By: Parrish Miranda on 03-02-2025 Potassium (Unsp spec) [Mass/Vol] 4.1 mmol/L 3.3-5.1 [facility] Prothrombin Time w/INRon INR Coag (PPP) [Relative time] 1.1 {INR} Normal [facility] Comment on above: Performed By: #### L 100.9950, L500.4050, L501.6710, L101.9900, L506.0200, L300.3900, L501.2300, L501.1400, L3890.5000, L503.6030, L501.5200, L504.2610, L100.0100, L3100.1350, L503.0106, L503.6550, L300.4310 ####[facility] [address] [place], [address] PT Coag (PPP) [Time] 14.2 s Normal 11.7-14.9 [facility] Comment on above: Performed By: #### L 100.9950, L500.4050, L501.6710, L101.9900, L506.0200, L300.3900, L501.2300, L501.1400, L3890.5000, L503.6030, L501.5200, L504.2610, L100.0100, L3100.1350, L503.0106, L503.6550, L300.4310 ####[facility] [address] [place], [address] Prothrombin timeOrdered By: Parrish Miranda on 03-02-2025 PT Coag (PPP) [Time] 14.2 s 11.7-14.9 [facility] RBC Auto (Bld) [#/Vol]Ordere d By: Parrish Miranda on 03-02-2025 RBC (Bld) [#/Vol] 3.04 10*6/uL Low 4.6-6.2 [facility] Retic Panelon 03-02-2025 IM RET FRACTION 5.70 Normal 3.00-15.90 [facility] Comment on above: Performed By: #### L 100.9950, L500.4050, L501.6710, L101.9900, L506.0200, L300.3900, L501.2300, L501.1400, L3890.5000, L503.6030, L501.5200, L504.2610, L100.0100, L3100.1350, L503.0106, L503.6550, L300.4310 ####[facility] [address] [place], [place], [id number] RET-HE 34.8 pg Normal 30-35 [facility] Comment on above: Performed By: #### L 100.9950, L500.4050, L501.6710, L101.9900, L506.0200, L300.3900, L501.2300, L501.1400, L3890.5000, L503.6030, L501.5200, L504.2610, L100.0100, L3100.1350, L503.0106, L503.6550, L300.4310 ####[facility] [address] [place], [place], [id number] Retic Count 1.87 High 0.5-1.5 [facility] Comment on above: Performed By: #### L 100.9950, L500.4050, L501.6710, L101.9900, L506.0200, L300.3900, L501.2300, L501.1400, L3890.5000, L503.6030, L501.5200, L504.2610, L100.0100, L3100.1350, L503.0106, L503.6550, L300.4310 ####[facility] [address] [place], [address] Reticulocyte hemoglobin equi valent (RET-He) measurementOrdered By: Parrish Miranda on 03-02-2025 Hemoglobin (Reticulocytes) [Entitic mass] 34.8 pg 30-35 [facility] Reticulocytes Auto (Bld) [#/ Vol]Ordered By: Parrish Miranda on 03-02-2025 Reticulocytes/100 RBC (Bld) 1.87 % High 0.5-1.5 [facility] Serum creatinine measurement (mass/volume)Ordered By: Parrish Miranda on 03-02-2025 Creatinine [Mass/Vol] 1.97 mg/dL High 0.70-1.20 [facility] Serum globulin measurementOr dered By: Parrish Miranda on 03-02-2025 Globulin (S) [Mass/Vol] 3.6 g/dL 2.2-4.2 [facility] Serum glucose measurement (m ass/volume)Ordered By: Parrish Miranda on 03-02-2025 Glucose [Mass/Vol] 107 mg/dL High 70-99 [facility] Serum or plasma C reactive p rotein measurement (mass/volume)Ordered By: Parrish Miranda on 03-02-2025 CRP [Mass/Vol] 114.00 mg/L High 0.0-3.0 [facility] Serum or plasma alanine keen otransferase (ALT) measurementOrdered By: Parrish Miranda on 03-02-2025 ALT [Catalytic activity/Vol] 84 U/L High <47 [facility] Serum or plasma albumin emma urement (mass/volume)Ordered By: Parrish Miranda on 03-02-2025 Albumin [Mass/Vol] 3.6 g/dL 3.4-4.8 [facility] Serum or plasma albumin/glob ulin mass ratioOrdered By: Parrish Miranda on 03-02-2025 Albumin/Globulin [Mass ratio] 1.0 {ratio} 0.9-2.4 [facility] Serum or plasma alkaline david sphatase measurementOrdered By: Parrish Miranda on 03-02-2025 ALP [Catalytic activity/Vol] 112 U/L 40-129 [facility] Serum or plasma calcium emma urement (mass/volume)Ordered By: Parrish Miranda on 03-02-2025 Calcium [Mass/Vol] 13.9 mg/dL Critically high 7.6-11.0 [facility] Comment on above: CALLED 5 TIMES WITH NO ANSWER-LEFT VOICEMAIL @ 8949 03/02/2025RITICAL RESULT CALLED TO [facility] BY NATALIE HO. RESULTS READ BACK BY SAME. 1247 Serum or plasma erythropoiet in (EPO) measurement (units/volume)Ordered By: Parrish Miranda on 03-02-2025 Erythropoietin (EPO) Qn 18.3 mIU/mL 2.6-18.5 [facility] Serum or plasma ferritin erica surement (mass/volume)Ordered By: Parrish Miranda on 03-02-2025 Ferritin [Mass/Vol] 1522 ng/mL High 37-417 [facility] Serum or plasma iron saturat ion measurement (mass fraction)Ordered By: Parrish Miranda on 03-02-2025 Iron saturation [Mass fraction] 22.8 % 9-55 [facility] Comment on above: Previous reported re sult: 22.9 %Edited by: CHRISTIE on 03/02/25:1248 AMENDED REPORT 03/02/25 1248 IRON SATURATION previously reported as: 22.9 % Serum or plasma urea nitroge n measurement (mass/volume)Ordered By: Parrish Miranda on 03-02-2025 Urea nitrogen [Mass/Vol] 63 mg/dL High 4-19 [facility] Serum or plasma uric acid me asurement (mass/volume)Ordered By: Parrish Miranda on 03-02-2025 Urate [Mass/Vol] 9.0 mg/dL High 3.5-7.2 [facility] Comment on above: The drugs N-Acetylcy steine and Metamizole may falsely depress this assay. Sodium levelOrdered By: Percy Miranda on 03-02-2025 Sodium [Moles/Vol] 134 mmol/L 133-145 [facility] Total proteinOrdered By: Floyd Miranda on 03-02-2025 Protein [Mass/Vol] 7.2 g/dL 5.9-8.4 [facility] Uric Acidon 03-02-2025 URIC 9.0 mg/dL High 3.5-7.2 [facility] Comment on above: Result Comment: The drugs N-Acetylcysteine and Metamizole may falsely depress this assay. Performed By: #### L 3130.0010, L506.1001, L509.1000, L3300.0960 #### [facility] [address] [place], [address] Vitamin B12on 03-02-2025 Cobalamin (Vitamin B12) [Mass/Vol] 1187 pg/mL High 180-914 [facility] Comment on above: Performed By: #### L 3130.0010, L506.1001, L509.1000, L3300.0960 #### [facility] [address] [place], [address] Vitamin B12 ser/plasOrdered By: Parrish Miranda on 03-02-2025 Cobalamin (Vitamin B12) [Mass/Vol] 1187 pg/mL High 180-914 [facility] White blood cell (WBC) count Ordered By: Parrish Miranda on 03-02-2025 WBC (Bld) [#/Vol] 16.1 10*3/uL High 4.4-11.0 [facility] Office Visiton 02-24-2025 Follow-up visit [id number] Edi Caceres 1945 Date Provider Department Center 02/24/[address] [facility] CT None Family History Problem Relation Age of Onset Throat cancer Brother Family Status - Relation Status Age at Brother Level of Service:23194 [facility] POSTOP FOLLOW UP VISIT RELATED TO ORIGINAL PX Reason for Visit and Comments: Post-op [483] Normal [facility] Progress Noteon 02-24-2025 Progress Note [facility]: [facility] [address] [facility] [address] Dept: [phone] Dept Loc: [phone] Visit type: Established patient Reason for Visit: Post-op Assessment and Plan 1. Mediastinal mass 02/08/25: Dr. Contreras- Left thoracoscopy converted to left thoracotomy, mediastinal biopsy, drainage of pleural effusion, parietal pleural biopsy, mechanical pleurodesis -Obtain CXR, assess for new pleural effusion. Order placed. -Pathology discussed with patient and family by Dr. Contreras, aware from PCP appointment. -Appointment with [facility]. -Incisions healing well, no redness, warmth or drainage. Suture removed. -Pain tolerable with acetaminophen. Disposition: Follow up PRN. Patient verbalized understanding of plan and stated they would call if any questions or concerns arise. Treatment Team: PCP: MICHELET GOOD Subjective HPI: Juju Caceres is a 79 y.o. male referred by Dr. Garcia for mediastinal mass. 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 Please see [facility] report [id number] for High-Grade/Large B-Cell Lymphoma FISH ordered by Dr. Michelle Tolbert. Report has been scanned into the patient's chart. 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 Vitals: 02/24/25 1044 BP: 126/68 Pulse: [...] to office visit Rafael Joshua APRN - ENDOSCOPY SPECIALTY TECHNICIAN [1] No Known Allergies [2] Current Outpatient Medications: Ascorbic Acid (vitamin C) 500 MG tablet, Take 500 mg by mouth daily., Disp: , Rfl: cholecalciferol (Vitamin D-3) 125 MCG (5000 UT) capsule, 125 mcg., Disp: , Rfl: fish oil ([place]-3) 500 MG capsule, Take 500 mg by mouth daily., Disp: , Rfl: MAGNESIUM PO, Take 250 mg by mouth., Disp: , Rfl: melato (more content not included)... Normal [facility] L3410.9992on 02-20-2025 [facility] [place] COM[place] Normal . [facility] Comment on above: Order Comment: BODY FLUID Result Comment: Test Ordered: [id number] PTHrP (PTH-Related Peptide) PTHrP (PTH-Related Peptide) <2.0 pmol/L Reference Range: . This test was developed and its performance characteristics determined by [facility]. It has not been cleared or approved [...] discordant, please contact the laboratory. Performed at: [facility] [address] [place] [id number] Payroll Clerk: Anabel Cheung MD, Phone: [phone] Performed at: [facility] [employer] [id number] Payroll Clerk: Torito Green PhD, Phone: [phone] Performed By: #### M 100.2900, M100.4001, L001.0705, L504.0250, L200.0200, L350.1000, M100.2000, L503.0300 #### [facility] [address] [facility] [place], [address] Anion gap in Serum or Plasma Ordered By: Michelet Good on 02-15-2025 Anion gap [Moles/Vol] 14 mmol/L 10-14 [facility] BUN/creatinine ratioOrdered By: Michelet Good on 02-15-2025 Urea nitrogen/Creatinine [Mass ratio] 20.9 mg/mg High 03-21 [facility] Carbon dioxide, total [Moles /volume] in Central venous bloodOrdered By: Michelet Good on 02-15-2025 CO2 [Moles/Vol] 20.5 mmol/L Low 21.0-32.0 [facility] Chloride assayOrdered By: Carin Good on 02-15-2025 Chloride [Moles/Vol] 98 mmol/L 98-108 [facility] Glomerular filtration rate ( GFR) estimation/1.73 sq m using serum, plasma, or whole bOrdered By: Michelet Good on 02-15-2025 GFR/1.73 sq M.predicted among non-blacks MDRD (S/P/Bld) [Vol rate/Area] 22 mL/min/{1.73_m2} Low >60 [facility] Comment on above: mL/min/1.73m2 CKD-EP I Creatinine Equation (2020) Potassium measurement (mass/ volume)Ordered By: Michelet Good on 02-15-2025 Potassium (Unsp spec) [Mass/Vol] 5.6 mmol/L High 3.3-5.1 [facility] Renal Profileon 02-15-2025 Calcium [Mass/Vol] 12.6 mg/dL Invalid Interpretation Code 7.6-11.0 [facility] Comment on above: Order Comment: BODY FLUID [...] L001.0705, L504.0250, L200.0200, L350.1000, M100.2000, L503.0300 #### [facility] [address] [place], [place], [id number] Serum creatinine measurement (mass/volume)Ordered By: Michelet Good on 02-15-2025 Creatinine [Mass/Vol] 2.81 mg/dL High 0.70-1.20 [facility] Serum glucose measurement (m ass/volume)Ordered By: Michelet Good on 02-15-2025 Glucose [Mass/Vol] 103 mg/dL High 70-99 [facility] Serum or plasma albumin emma urement (mass/volume)Ordered By: Michelet Good on 02-15-2025 Albumin [Mass/Vol] 3.6 g/dL 3.4-4.8 [facility] Serum or plasma calcium emma urement (mass/volume)Ordered By: Michelet Good on 02-15-2025 Calcium [Mass/Vol] 12.6 mg/dL Critically high 7.6-11.0 [facility] Comment on above: ATTEMPTED TO REACH [...] Urea nitrogen [Mass/Vol] 59 mg/dL High 4-19 [facility] Sodium levelOrdered By: Michelet Good on 02-15-2025 Sodium [Moles/Vol] 132 mmol/L Low 133-145 [facility] Abdomen/Pelvis without Conto n 02-14-2025 Abdomen/Pelvis without Cont [facility] Imaging Services [address] [place], [place] [address] Abdomen/Pelvis without Cont MR#: [id number] Acct: [id number] Name: ISABELJUJU RAY Rep #: [id number] : 1945 M 79 From: Santi De La Rosa MD PCP: Dr. Michelet Good, DO Status: REG ER Study: Abdomen/Pelvis without Cont Date of Exam: 01/31 10/24 Exam# [id number] Ordering Dr: Ed Parada DO PROCEDURE: ABDOMEN/PELVIS [...] Ed Parada, DO; Dr. Michelet Good, DO City Planning Teacher: Signed Normal [facility] Absolute lymphocyte countOrd ered By: Ed Parada on 02-14-2025 Lymphocytes Auto (Unsp spec) [#/Vol] 0.33 10*3/uL Low 0.83-4.51 [facility] Absolute neutrophil countOrd ered By: dE Parada on 02-14-2025 Neutrophils (Bld) [#/Vol] 8.4 10*3/uL High 2.0-7.7 [facility] Anion gap in Serum or Plasma Ordered By: Ed Parada on 02-14-2025 Anion gap [Moles/Vol] 14 mmol/L 5-15 [facility] Automated lymphocyte count a s percentage of total leukocytesOrdered By: Ed Parada on 02-14-2025 Lymphocytes/100 WBC Auto (Unsp spec) 3.3 % Low 19-41 [facility] BUN/creatinine ratioOrdered By: Ed Pardaa on 02-14-2025 Urea nitrogen/Creatinine [Mass ratio] 20.9 mg/mg High 10-20 [facility] Basophil percentageOrdered B y: Ed Parada on 02-14-2025 Basophils/100 WBC (Bld) 0.5 % 0-1 [facility] Bilirubin, totalOrdered By: Edfrank Parada on 02-14-2025 Bilirubin [Mass/Vol] 0.23 mg/dL 0.00-1.30 [facility] CBC W/Diff, Automatedon 01-31 Absolute Lymph 0.33 X10 3/uL Low 0.83-4.51 [facility] Comment on above: Performed By: #### M 100.2900, M100.4001, L001.0705, L504.0250, L200.0200, L350.1000, M100.1999, L503.0300 #### [facility] [address] [place], [address] Absolute Neut 8.4 X10 3/uL High 2.0-7.7 [facility] Comment on above: Performed By: #### M 100.2900, M100.4001, L001.0705, L504.0250, L200.0200, L350.1000, M100.2000, L503.0300 #### [facility] [address] [place], [address] Basophils/100 WBC (Bld) 0.5 % Normal 0-1 [facility] Comment on above: Performed By: #### M 100.2900, M100.4001, L001.0705, L504.0250, L200.0200, L350.1000, M100.2000, L503.0300 #### [facility] [address] [place], [address] Eosinophils/100 WBC (Bld) 3.7 % Normal 0-5 [facility] Comment on above: Performed By: #### M 100.2900, M100.4001, L001.0705, L504.0250, L200.0200, L350.1000, M100.2000, L503.0300 #### [facility] [address] [place], [address] Erythrocyte distribution width (RBC) [Ratio] 14.5 % Normal 11.6-14.6 [facility] Comment on above: Performed By: #### M 100.2900, M100.4001, L001.0705, L504.0250, L200.0200, L350.1000, M100.2000, L503.0300 #### [facility] [address] [place], [address] Hematocrit (Bld) [Volume fraction] 25.2 % Low 40-54 [facility] Comment on above: Performed By: #### M 100.2900, M100.4001, L001.0705, L504.0250, L200.0200, L350.1000, M100.2000, L503.0300 #### [facility] [address] [place], [address] Hemoglobin (Bld) [Mass/Vol] 8.2 g/dL Low 13.0-16.5 [facility] Comment on above: Performed By: #### M 100.2900, M100.4001, L001.0705, L504.0250, L200.0200, L350.1000, M100.2000, L503.0300 #### [facility] [address] [place], [address] IG% 0.700 Normal 0.0-0.9 [facility] Comment on above: Result Comment: IG% - Immature Granulocytes (promyelocytes, myelocytes and metamyelocytes) > 1% indicates that a LEFT SHIFT is Present. Performed By: #### M 100.2900, M100.4001, L001.0705, L504.0250, L200.0200, L350.1000, M100.2000, L503.0300 #### [facility] [address] [place], [address] Lymphocytes/100 WBC (Bld) 3.3 % Low 19-41 [facility] Comment on above: Performed By: #### M 100.2900, M100.4001, L001.0705, L504.0250, L200.0200, L350.1000, M100.2000, L503.0300 #### [facility] [address] [place], [address] MCH (RBC) [Entitic mass] 29.2 pg Normal 27.0-32.0 [facility] Comment on above: Performed By: #### M 100.2900, M100.4001, L001.0705, L504.0250, L200.0200, L350.1000, M100.2000, L503.0300 #### [facility] [address] [place], [address] MCHC (RBC) [Mass/Vol] 32.5 g/dL Normal 32-36 [facility] Comment on above: Performed By: #### M 100.2900, M100.4001, L001.0705, L504.0250, L200.0200, L350.1000, M100.2000, L503.0300 #### [facility] [address] [place], [address] MCV (RBC) [Entitic vol] 89.7 fL Normal 80-94 [facility] Comment on above: Performed By: #### M 100.2900, M100.4001, L001.0705, L504.0250, L200.0200, L350.1000, M100.2000, L503.0300 #### [facility] [address] [place], [address] Monocytes/100 WBC (Bld) 7.3 % Normal 0-10 [facility] Comment on above: Performed By: #### M 100.2900, M100.4001, L001.0705, L504.0250, L200.0200, L350.1000, M100.2000, L503.0300 #### [facility] [address] [place], [address] Neutrophils/100 WBC (Bld) 84.5 % High 47-70 [facility] Comment on above: Performed By: #### M 100.2900, M100.4001, L001.0705, L504.0250, L200.0200, L350.1000, M100.1999, L503.0300 #### [facility] [address] [place], [address] Nucleated RBC (Bld) [#/Vol] 0 10*3/uL Normal 0-5 [facility] Comment on above: Performed By: #### M 100.2900, M100.4001, L001.0705, L504.0250, L200.0200, L350.1000, M1, L503.0300 #### [facility] [address] [place], [address] Platelet mean volume (Bld) [Entitic vol] 9.8 fL Normal 6.2-12.0 [facility] Comment on above: Performed By: #### M 100.2900, M100.4001, L001.0705, L504.0250, L200.0200, L350.1000, M100.1999, L503.0300 #### [facility] [address] [place], [address] Platelets (Bld) [#/Vol] 417 10*3/uL Normal 150-450 [facility] Comment on above: Performed By: #### M 100.2900, M100.4001, L001.0705, L504.0250, L200.0200, L350.1000, M100.1999, L503.0300 #### [facility] [address] [place], [address] RBC (Bld) [#/Vol] 2.81 10*6/uL Low 4.6-6.2 [facility] Comment on above: Performed By: #### M 100.2900, M100.4001, L001.0705, L504.0250, L200.0200, L350.1000, M100.2000, L503.0300 #### [facility] [address] [place], [address] RDW SD 47.2 fl High 35.1-43.9 [facility] Comment on above: Performed By: #### M 100.2900, M100.4001, L001.0705, L504.0250, L200.0200, L350.1000, M100.2000, L503.0300 #### [facility] [address] [facility] [place], [address] WBC (Bld) [#/Vol] 10.0 10*3/uL Normal 4.4-11.0 [facility] Comment on above: Performed By: #### M 100.2900, M100.4001, L001.0705, L504.0250, L200.0200, L350.1000, M100.2000, L503.0300 #### [facility] [address] [facility] [place], [address] Carbon dioxide, total [Moles /volume] in Central venous bloodOrdered By: Ed Parada on 02-14-2025 CO2 [Moles/Vol] 20.1 mmol/L Low 21.0-32.0 [facility] Chloride assayOrdered By: Primo Parada on 02-14-2025 Chloride [Moles/Vol] 99 mmol/L 98-108 [facility] Comprehensive Metabolic Prof ilon 02-14-2025 Albumin [Mass/Vol] 3.5 g/dL Normal 3.4-4.8 [facility] Comment on above: Performed By: #### M 100.2900, M100.4001, L001.0705, L504.0250, L200.0200, L350.1000, M100.2000, L503.0300 #### [facility] [address] [place], [address] Albumin/Globulin [Mass ratio] 0.9 {ratio} Normal 0.9-2.4 [facility] Comment on above: Performed By: #### M 100.2900, M100.4001, L001.0705, L504.0250, L200.0200, L350.1000, M100.2000, L503.0300 #### [facility] [address] [place], [address] ALK PHOS 100 U/L Normal 40-129 [facility] Comment on above: Performed By: #### M 100.2900, M100.4001, L001.0705, L504.0250, L200.0200, L350.1000, M100.1999, L503.0300 #### [facility] [address] [place], [address] ALT [Catalytic activity/Vol] 22 U/L Normal <=46 [facility] Comment on above: Performed By: #### M 100.2900, M100.4001, L001.0705, L504.0250, L200.0200, L350.1000, M100.2000, L503.0300 #### [facility] [address] [place], [address] AST [Catalytic activity/Vol] 27 U/L Normal <=37 [facility] Comment on above: Performed By: #### M 100.2900, M100.4001, L001.0705, L504.0250, L200.0200, L350.1000, M100.2000, L503.0300 #### [facility] [address] [place], [address] Bilirubin [Mass/Vol] 0.23 mg/dL Normal 0.00-1.30 [facility] Comment on above: Performed By: #### M 100.2900, M100.4001, L001.0705, L504.0250, L200.0200, L350.1000, M100.1999, L503.0300 #### [facility] [address] [place], [address] BUN/CRE 20.9 RATIO High 10-20 [facility] Comment on above: Performed By: #### M 100.2900, M100.4001, L001.0705, L504.0250, L200.0200, L350.1000, M100.1999, L503.0300 #### [facility] [address] [place], [address] Calcium [Mass/Vol] 12.5 mg/dL High 7.6-11.0 [facility] Comment on above: Performed By: #### M 100.2900, M100.4001, L001.0705, L504.0250, L200.0200, L350.1000, M100.1999, L503.0300 #### [facility] [address] [place], [address] Chloride [Moles/Vol] 99 mmol/L Normal 98-108 [facility] Comment on above: Performed By: #### M 100.2900, M100.4001, L001.0705, L504.0250, L200.0200, L350.1000, M100.1999, L503.0300 #### [facility] [address] [place], [address] CO2 [Moles/Vol] 20.1 mmol/L Low 21.0-32.0 [facility] Comment on above: Performed By: #### M 100.2900, M100.4001, L001.0705, L504.0250, L200.0200, L350.1000, M100.2000, L503.0300 #### [facility] [address] [place], [address] Creatinine [Mass/Vol] 2.89 mg/dL High 0.70-1.20 [facility] Comment on above: Performed By: #### M 100.2900, M100.4001, L001.0705, L504.0250, L200.0200, L350.1000, M100.2000, L503.0300 #### [facility] [address] [place], [address] ECRCL 17.89 ml/min Low 50-250 [facility] Comment on above: Performed By: #### M 100.2900, M100.4001, L001.0705, L504.0250, L200.0200, L350.1000, M100.2000, L503.0300 #### [facility] [address] [place], [address] GAP 14 Normal 5-15 [facility] Comment on above: Performed By: #### M 100.2900, M100.4001, L001.0705, L504.0250, L200.0200, L350.1000, M100.2000, L503.0300 #### [facility] [address] [place], [address] GFR/1.73 sq M.predicted among non-blacks MDRD (S/P/Bld) [Vol rate/Area] 21 mL/min/{1.73_m2} Low >60 [facility] Comment on above: Result Comment: mL/m in/1.73m2 CKD-EPI Creatinine Equation (2020) Performed By: #### M 100.2900, M100.4001, L001.0705, L504.0250, L200.0200, L350.1000, M100.2000, L503.0300 #### [facility] [address] [place], [address] Globulin (S) [Mass/Vol] 3.8 g/dL Normal 2.2-4.2 [facility] Comment on above: Performed By: #### M 100.2900, M100.4001, L001.0705, L504.0250, L200.0200, L350.1000, M100.2000, L503.0300 #### [facility] [address] [place], [address] Glucose [Mass/Vol] 131 mg/dL High 70-99 [facility] Comment on above: Performed By: #### M 100.2900, M100.4001, L001.0705, L504.0250, L200.0200, L350.1000, M100.1999, L503.0300 #### [facility] [address] [place], [address] Potassium [Moles/Vol] 4.8 mmol/L Normal 3.3-5.1 [facility] Comment on above: Performed By: #### M 100.2900, M100.4001, L001.0705, L504.0250, L200.0200, L350.1000, M100.1999, L503.0300 #### [facility] [address] [place], [address] Sodium [Moles/Vol] 133 mmol/L Normal 133-145 [facility] Comment on above: Performed By: #### M 100.2900, M100.4001, L001.0705, L504.0250, L200.0200, L350.1000, M100.2000, L503.0300 #### [facility] [address] [place], [address] T PROT 7.2 g/dL Normal 5.9-8.4 [facility] Comment on above: Performed By: #### M 100.2900, M100.4001, L001.0705, L504.0250, L200.0200, L350.1000, M100.2000, L503.0300 #### [facility] [address] [place], [address] Urea nitrogen [Mass/Vol] 61 mg/dL High 4-19 [facility] Comment on above: Performed By: #### M 100.2900, M100.4001, L001.0705, L504.0250, L200.0200, L350.1000, M100.2000, L503.0300 #### [facility] [address] [place], [address] Emergency Department Summary on 02-14-2025 Emergency Department Summary [facility] Medical Records Department [address] [place] [address] Emergency Department Summary 02/14/25 MR#: [id number] Acct: [id number] Name: JUJU CACERES Rep #: [id number] : 1945 79 From: Ed Parada DO [...] intact Psych: Cooperative, appropriate mood and affect [facility] Medical History Hypercalcemia Dyspnea Recurrent left [...] a BU (more content not included)... Normal [facility] Eosinophil percentageOrdered By: Ed Karma on 02-14-2025 Eosinophils/100 WBC (Bld) 3.7 % 0-5 [facility] Erythrocyte distribution wid th ratioOrdered By: [place] Karma on 02-14-2025 Erythrocyte distribution width (RBC) [Ratio] 14.5 % 11.6-14.6 [facility] Erythrocyte distribution wid th standard deviationOrdered By: Ed Mona Hernandez on 02-14-2025 Erythrocyte distribution width (RBC) [Ratio] 47.2 fl High 35.1-43.9 [facility] Glomerular filtration rate ( GFR) estimation/1.73 sq m using serum, plasma, or whole bOrdered By: Ed Parada on 02-14-2025 GFR/1.73 sq M.predicted among non-blacks MDRD (S/P/Bld) [Vol rate/Area] 21 mL/min/{1.73_m2} Low >60 [facility] Comment on above: mL/min/1.73m2 CKD-EP I Creatinine Equation (2020) Hematocrit Auto (Bld) [Volum e fraction]Ordered By: Ed Aydee on 02-14-2025 Hematocrit (Bld) [Volume fraction] 25.2 % Low 40-54 [facility] Hemoglobin measurementOrdere d By: Ed Parada on 02-14-2025 Hemoglobin (Bld) [Mass/Vol] 8.2 g/dL Low 13.0-16.5 [facility] Immature granulocytes/100 WB C Auto (Bld)Ordered By: [facility] 02-14-2025 Immature granulocytes/100 WBC (Bld) 0.700 % 0.0-0.9 [facility] Comment on above: IG% - Immature Granu locytes (promyelocytes, myelocytes and metamyelocytes) > 1% indicates that a LEFT SHIFT is Present. Laboratory - Chemistry and C hemistry - challengeOrdered By: [facility] on 02-14-2025 AST [Catalytic activity/Vol] 27 U/L <38 [facility] MCV (mean corpuscular volume ) determinationOrdered By: [facility] on 02-14-2025 MCV (RBC) [Entitic vol] 89.7 fL 80-94 [facility] Magnesiumon 02-14-2025 Magnesium [Mass/Vol] 2.7 mg/dL High 1.5-2.2 [facility] Comment on above: Performed By: #### M 100.2900, M100.4001, L001.0705, L504.0250, L200.0200, L350.1000, M100.2000, L503.0300 #### [facility] [facility] [address] [facility] [place], [address] Magnesium measurement (mass/ volume)Ordered By: [facility] CenternicolasaMercyone Cedar Falls Medical CenterDavid on 02-14-2025 Magnesium (Unsp spec) [Mass/Vol] 2.7 mg/dL High 1.5-2.2 [facility] Mean corpuscular hemoglobin (MCH) determinationOrdered By: [facility] CenterAydee on 02-14-2025 MCH (RBC) [Entitic mass] 29.2 pg 27.0-32.0 [facility] Mean corpuscular hemoglobin concentration (MCHC) determinationOrdered By: Ed Parada on 02-14-2025 MCHC (RBC) [Mass/Vol] 32.5 g/dL 32-36 [facility] Mean platelet volume determi nationOrdered By: Ed Parada on 02-14-2025 Platelet mean volume (Bld) [Entitic vol] 9.8 fL 6.2-12.0 [facility] Monocyte percentageOrdered B y: Ed Parada on 02-14-2025 Monocytes/100 WBC (Bld) 7.3 % 0-10 [facility] Neutrophil percentageOrdered By: Ed Parada on 02-14-2025 Neutrophils/100 WBC (Bld) 84.5 % High 47-70 [facility] No Panel InformationOrdered By: Ed Parada on 02-14-2025 27 U/L <38 [facility] Nucleated red blood cell per centageOrdered By: Ed Parada on 02-14-2025 Nucleated RBC/100 WBC (Bld) [Ratio] 0 % 0-5 [facility] Platelet countOrdered By: Primo Parada on 02-14-2025 Platelets (Bld) [#/Vol] 417 10*3/uL 150-450 [facility] Potassium measurement (mass/ volume)Ordered By: Ed Parada on 02-14-2025 Potassium (Unsp spec) [Mass/Vol] 4.8 mmol/L 3.3-5.1 [facility] RBC Auto (Bld) [#/Vol]Ordere d By: Ed Parada on 02-14-2025 RBC (Bld) [#/Vol] 2.81 10*6/uL Low 4.6-6.2 [facility] Serum creatinine measurement (mass/volume)Ordered By: Ed Parada on 02-14-2025 Creatinine [Mass/Vol] 2.89 mg/dL High 0.70-1.20 [facility] Serum globulin measurementOr dered By: Ed Parada on 02-14-2025 Globulin (S) [Mass/Vol] 3.8 g/dL 2.2-4.2 [facility] Serum glucose measurement (m ass/volume)Ordered By: Ed Parada on 02-14-2025 Glucose [Mass/Vol] 131 mg/dL High 70-99 [facility] Serum or plasma alanine keen otransferase (ALT) measurementOrdered By: Ed Parada on 02-14-2025 ALT [Catalytic activity/Vol] 22 U/L <47 [facility] Serum or plasma albumin emma urement (mass/volume)Ordered By: Ed Hernandez on 02-14-2025 Albumin [Mass/Vol] 3.5 g/dL 3.4-4.8 [facility] Serum or plasma albumin/glob ulin mass ratioOrdered By: Ed Parada on 02-14-2025 Albumin/Globulin [Mass ratio] 0.9 {ratio} 0.9-2.4 [facility] Serum or plasma alkaline david sphatase measurementOrdered By: Ed Parada on 02-14-2025 ALP [Catalytic activity/Vol] 100 U/L 40-129 [facility] Serum or plasma calcium emma urement (mass/volume)Ordered By: Ed Hernandez on 02-14-2025 Calcium [Mass/Vol] 12.5 mg/dL High 7.6-11.0 [facility] Serum or plasma urea nitroge n measurement (mass/volume)Ordered By: Ed Parada on 02-14-2025 Urea nitrogen [Mass/Vol] 61 mg/dL High 4-19 [facility] Sodium levelOrdered By: Nic Parada on 02-14-2025 Sodium [Moles/Vol] 133 mmol/L 133-145 [facility] Total proteinOrdered By: Mook Parada on 02-14-2025 Protein [Mass/Vol] 7.2 g/dL 5.9-8.4 [facility] White blood cell (WBC) count Ordered By: Ed Parada on 02-14-2025 WBC (Bld) [#/Vol] 10.0 10*3/uL 4.4-11.0 [facility] MISC PATH SENDOUT (SENDOUT)o n 02-11-2025 [facility] MISCELLANEOUS LAB TEST RESULT Normal [facility] Comment on above: Result Comment: DUNIA Monge COMMENTS: Results are attached to the pathology report, case # [id number]. See scan in [employer]. Performed By: #### L [id number] ####Behavioral Assistant: ADITYA ESCALERA ([id number])[facility])[address] [place] [address] [id number] 02-10-2025 [id number] Discussed Home Care Services available to patient [...] needs arise prior to DC. Normal [facility] BASIC METABOLIC PANELon 01-31 Anion gap [Moles/Vol] 11 mmol/L Normal 3-13 [facility] Comment on above: Performed By: #### L AB15 ####Behavioral Assistant: ADITYA ESCALERA ([id number])[facility])[address] [place] [address] Calcium [Mass/Vol] 10.7 mg/dL High 8.8-10.0 [facility] Comment on above: Performed By: #### L AB15 ####Behavioral Assistant: ADITYA ESCALERA ([id number])[facility])[address] [place] [address] Chloride [Moles/Vol] 104 mmol/L Normal 98-107 [facility] Comment on above: Performed By: #### L AB15 ####Behavioral Assistant: ADITYA ESCALERA ([phone])[facility])[address] [place] [address] CO2 [Moles/Vol] 21 mmol/L Low 23-31 [facility] Comment on above: Performed By: #### L AB15 ####Behavioral Assistant: ADITYA ESCALERA ([id number])[facility])[address] [place] [address] Creatinine [Mass/Vol] 3.36 mg/dL High 0.72-1.25 [facility] Comment on above: Performed By: #### L AB15 ####Behavioral Assistant: ADITYA ESCALERA ([id number])[facility])[address] [place] [address] GLOMERULAR FILTRATION RATE ML/MIN/1.73 SQ M.PREDICTED 17.7 mL/min/1.73m*2 Low >60.0 [facility] Comment on above: Result Comment: Calc ulation based on the Chronic Kidney Disease Epidemiology Collaboration (CKD-EPI) equation refit without adjustment for race Performed By: #### L AB15 ####Behavioral Assistant: ADITYA ESCALERA ([id number])[facility])[address] [place] [address] Glucose [Mass/Vol] 122 mg/dL High 82-115 [facility] Comment on above: Performed By: #### L AB15 ####Behavioral Assistant: ADITYA ESCALERA ([id number])[facility])[address] [place] [address] Potassium [Moles/Vol] 4.5 mmol/L Normal 3.5-5.1 [facility] Comment on above: Result Comment: [facility] potassium values may be up to 0.5 mmol/L lower than serum values. Performed By: #### L AB15 ####Behavioral Assistant: ADITYA ESCALERA ([id number])[facility])[address] [place] [address] Sodium [Moles/Vol] 136 mmol/L Normal 136-145 [facility] Comment on above: Performed By: #### L AB15 ####Behavioral Assistant: ADITYA ESCALERA ([id number])[address] Urea nitrogen [Mass/Vol] 64 mg/dL High 9-23 [facility] Comment on above: Performed By: #### L AB15 ####Behavioral Assistant: ADITYA ESCALERA ([id number])[address] Basic metabolic 1998 panelon 02-10-2025 Anion gap [Moles/Vol] 11 mmol/L 3 - 13 mmol/L [facility] Calcium [Mass/Vol] 10.7 mg/dL High 8.8 - 10. 0 mg/dL [facility] Chloride [Moles/Vol] 104 mmol/L 98 - 10 7 mmol/L [facility] CO2 [Moles/Vol] 21 mmol/L Low 23 - 31 mmol/L [facility] Creatinine [Mass/Vol] 3.36 mg/dL High 0.72 - 1.25 mg/dL [facility] GFR/1.73 sq M.predicted (S/P/Bld) [Vol rate/Area] 17.7 mL/min Low - PINF [facility] Comment on above: Calculation based on the Chronic Kidney Disease Epidemiology Collaboration (CKD-EPI) equation refit without adjustment for race Glucose [Mass/Vol] 122 mg/dL High 82 - 115 mg/dL [facility] Interpretation and review of laboratory results Abnormal [facility] Potassium [Moles/Vol] 4.5 mmol/L 3.5 - 5.1 mmol/L [facility] Comment on above: Plasma potassium silvano ues may be up to 0.5 mmol/L lower than serum values. Sodium [Moles/Vol] 136 mmol/L 136 - 145 mmol/L [facility] Urea nitrogen [Mass/Vol] 64 mg/dL High 9 - 23 mg/dL [facility] CBC (HEMOGRAM)on 02-10-2025 Erythrocyte distribution width (RBC) [Ratio] 14.5 % Normal 11.5-15.0 [facility] Comment on above: Performed By: #### L [id number] ####Behavioral Assistant: ADITYA ESCALERA ([id number])[facility])[address] [place] [address] Hematocrit (Bld) [Volume fraction] 24.2 % Low 40.0-52.0 [facility] Comment on above: Performed By: #### L [id number] ####Behavioral Assistant: ADITYA ESCALERA ([id number])[facility])[address] [place] [address] Hemoglobin (Bld) [Mass/Vol] 7.9 g/dL Low 13.0-18.0 [facility] Comment on above: Performed By: #### L [id number] ####Behavioral Assistant: ADITYA ESCALERA ([id number])[facility])[address] [place] [address] MCH (RBC) [Entitic mass] 29.5 pg Normal 26.0-34.0 [facility] Comment on above: Performed By: #### L [id number] ####Behavioral Assistant: ADITYA ESCALERA ([id number])[facility])[address] [place] [address] MCHC 32.6 % Normal 30.5-36.0 [facility] Comment on above: Performed By: #### L [id number] ####Behavioral Assistant: ADITYA ESCALERA ([id number])[facility])[address] [place] [address] MCV (RBC) [Entitic vol] 90.3 fL Normal 77.0-99.0 [facility] Comment on above: Performed By: #### L [id number] ####Behavioral Assistant: ADITYA ESCALERA ([id number])[facility])[address] [place] [address] Platelet mean volume (Bld) [Entitic vol] 9.8 fL Normal 9.0-12.7 [facility] Comment on above: Performed By: #### L [id number] ####Behavioral Assistant: ADITYA ESCALERA ([id number])[facility])[address] [place] [address] Platelets (Bld) [#/Vol] 354 10*3/uL Normal 140-440 [facility] Comment on above: Performed By: #### L [id number] ####Behavioral Assistant: ADITYA ESCALERA ([id number])[facility])[address] [place] [address] RBC (Bld) [#/Vol] 2.68 10*6/uL Low 4.40-5.90 [facility] Comment on above: Performed By: #### L [id number] ####Behavioral Assistant: ADITYA ESCALERA ([id number])[facility])[address] [place] [address] WBC (Bld) [#/Vol] 10.0 10*3/uL Normal 3.6-10.7 [facility] Comment on above: Performed By: #### L [id number] ####Behavioral Assistant: ADITYA ESCALERA ([id number])[address] CBC panel Auto (Bld)on 02-10 Erythrocyte distribution width (RBC) [Ratio] 14.5 % 11.5 - 15.0 % [facility] Hematocrit (Bld) [Volume fraction] 24.2 % Low 40.0 - 52.0 % [facility] Hemoglobin (Bld) [Mass/Vol] 7.9 g/dL Low 13.0 - 18.0 g/dL [facility] Interpretation and review of laboratory results Abnormal [facility] MCH (RBC) [Entitic mass] 29.5 pg 26.0 - 34.0 pg [facility] MCHC (RBC) [Mass/Vol] 32.6 % 30.5 - 36.0 % [facility] MCV (RBC) [Entitic vol] 90.3 fL 77.0 - 99.0 fL [facility] Platelet mean volume (Bld) [Entitic vol] 9.8 fL 9.0 - 12.7 fL [facility] Platelets (Bld) [#/Vol] 354 10*3/uL 140 - 440 10*3/uL [facility] RBC (Bld) [#/Vol] 2.68 10*6/uL Low 4.40 - 5.9 0 10*6/uL [employer] WBC (Bld) [#/Vol] 10 10*3/uL 3.6 - 10.7 10*3/uL [employer] No Panel Informationon 02-10 Blood Expiration Date S [employer] Blood Expiration Date S [employer] Blood Expiration Date S [employer] Crossmatch interpretation COMP trgt.us Dispense Status [facility] trgt.us Dispense Status Released from [employer] Product Blood Type 8400 trgt.us Product Blood Type 6200 trgt.us PRODUCT CODE [id number] [facility] ABO AB [facility] ABO A [facility] Number [id number] [facility] Number [id number] [facility] Number [id number] [facility] RH Positive trgt.us Unit Volume 300 mL [facility] [employer] Progress Noteon 02-10-2025 Progress Note Physician Response Please review the following and provide your response below. Please clarify which of the following accurately describes the patient's condition: Large B-cell lymphoma of mediastinum This documentation will become part of the patient's medical record. Normal [facility] Progress Note Nutrition rescreen completed. Patient referred to the Dietitian. Involuntary weight loss. Normal [facility] Progress Note ----- ----- Attestation signed by Freddy Contreras DO at 02/10/2025 11:37 AM CARDIOTHORACIC SURGERY DOS: 02/10/25 POD # 2 VATS/thoracotomy mediastinal biopsy I personally performed a [id number] diagnostic evaluation on this patient I agree [...] of 15 minutes were spent between the [id number] encounter, physical exam, reviewing the medical history, [...] Ben Goncalves MD General Surgery PGY-3 Pager [phone] [1] acetaminophen, 1,000 mg, Oral, 3 times per day ipratropium-albut (more content not included)... Normal [facility] BASIC METABOLIC PANELon 01-31 Anion gap [Moles/Vol] 9 mmol/L Normal 3-13 [facility] Comment on above: Performed By: #### L AB15 ####Behavioral Assistant: ADITYA ESCALERA ([id number])[facility] ([facility] Calcium [Mass/Vol] 10.0 mg/dL Normal 8.8-10.0 [facility] Comment on above: Performed By: #### L AB15 ####Behavioral Assistant: ADITYA ESCALERA ([id number])[facility])[address] [place] [address] Chloride [Moles/Vol] 103 mmol/L Normal 98-107 [facility] Comment on above: Performed By: #### L AB15 ####Behavioral Assistant: ADITYA ESCALERA ([id number])[facility])[address] [place] [address] CO2 [Moles/Vol] 19 mmol/L Low 23-31 [facility] Comment on above: Performed By: #### L AB15 ####Behavioral Assistant: ADITYA ESCALERA ([id number])[facility])[address] [place] [address] Creatinine [Mass/Vol] 3.24 mg/dL High 0.72-1.25 [facility] Comment on above: Performed By: #### L AB15 ####Behavioral Assistant: ADITYA ESCALERA ([id number])[facility])[address] [place] [address] GLOMERULAR FILTRATION RATE ML/MIN/1.73 SQ M.PREDICTED 18.4 mL/min/1.73m*2 Low >60.0 [facility] Comment on above: Result Comment: Calc ulation based on the Chronic Kidney Disease Epidemiology Collaboration (CKD-EPI) equation refit without adjustment for race Performed By: #### L AB15 ####Behavioral Assistant: ADITYA ESCALERA ([id number])[facility])[address] [place] [address] [place] Glucose [Mass/Vol] 114 mg/dL Normal 82-115 [facility] Comment on above: Performed By: #### L AB15 ####Behavioral Assistant: ADITYA ESCALERA ([id number])[facility])[address] [place] [address] [place] Potassium [Moles/Vol] 5.1 mmol/L Normal 3.5-5.1 [facility] Comment on above: Result Comment: [facility] potassium values may be up to 0.5 mmol/L lower than serum values. Performed By: #### L AB15 ####Behavioral Assistant: ADITYA ESCALERA ([id number])[facility] [place] [address] Sodium [Moles/Vol] 131 mmol/L Low 136-145 [facility] Comment on above: Performed By: #### L AB15 ####Behavioral Assistant: ADITYA ESCALERA ([id number])[facility])[address] [place] [address] Urea nitrogen [Mass/Vol] 69 mg/dL High 9-23 [facility] Comment on above: Performed By: #### L AB15 ####Behavioral Assistant: ADITYA ESCALERA ([id number])[facility])[address] [place] [address] Anion gap [Moles/Vol] 15 mmol/L High 3-13 [facility] Comment on above: Performed By: #### L AB15 #### Behavioral Assistant: ADITYA ESCALERA ([id number]) [facility]) [address] [place] [address] Calcium [Mass/Vol] 10.5 mg/dL High 8.8-10.0 [facility] Comment on above: Performed By: #### L AB15 #### Behavioral Assistant: ADITYA ESCALERA ([id number]) [facility]) [address] [place] [address] Chloride [Moles/Vol] 102 mmol/L Normal 98-107 [facility] Comment on above: Performed By: #### L AB15 #### Behavioral Assistant: ADITYA ESCALERA ([id number]) [facility]) [address] [place] [address] CO2 [Moles/Vol] 16 mmol/L Low 23-31 [facility] Comment on above: Performed By: #### L AB15 #### Behavioral Assistant: ADITYA [id number]) [facility] [address] [place] [address] [place] Creatinine [Mass/Vol] 3.34 mg/dL High 0.72-1.25 [facility] Comment on above: Performed By: #### L AB15 #### Behavioral Assistant: ADITYA ESCALERA ([id number]) [facility] [address] [place] [address] [place] GLOMERULAR FILTRATION RATE ML/MIN/1.73 SQ M.PREDICTED 17.8 mL/min/1.73m*2 Low >60.0 [facility] Comment on above: Result Comment: Calc ulation based on the Chronic Kidney Disease Epidemiology Collaboration (CKD-EPI) equation refit without adjustment for race Performed By: #### L AB15 #### Behavioral Assistant: ADITYA ESCALERA ([id number]) [facility]) [address] [place] [address] [place] Glucose [Mass/Vol] 124 mg/dL High 82-115 [facility] Comment on above: Performed By: #### L AB15 #### Behavioral Assistant: ADITYA ESCALERA ([id number]) [facility]) [address] [place] [address] [place] Potassium [Moles/Vol] 4.9 mmol/L Normal 3.5-5.1 [facility] Comment on above: Result Comment: [facility] potassium values may be up to 0.5 mmol/L lower than serum values. Performed By: #### L AB15 #### Behavioral Assistant: ADITYA ESCALERA ([id number]) [facility] [address] [place] [address] [place] Sodium [Moles/Vol] 133 mmol/L Low 136-145 [facility] Comment on above: Performed By: #### L AB15 #### Behavioral Assistant: ADITYA ESCALERA ([id number]) [facility]) [address] [place] [address] [place] Urea nitrogen [Mass/Vol] 69 mg/dL High 9-23 [facility] Comment on above: Performed By: #### L AB15 #### Behavioral Assistant: ADITYA ESCALERA ([id number]) [facility] ([facility]) [address] [place] [address] Basic metabolic 1998 panelon 02-09-2025 Anion gap [Moles/Vol] 9 mmol/L 3 - 13 mmol/L [facility] Calcium [Mass/Vol] 10 mg/dL 8.8 - 10. 0 mg/dL [facility] Chloride [Moles/Vol] 103 mmol/L 98 - 10 7 mmol/L [facility] CO2 [Moles/Vol] 19 mmol/L Low 23 - 31 mmol/L [facility] Creatinine [Mass/Vol] 3.24 mg/dL High 0.72 - 1.25 mg/dL [facility] GFR/1.73 sq M.predicted (S/P/Bld) [Vol rate/Area] 18.4 mL/min Low - PINF [facility] Comment on above: Calculation based on the Chronic Kidney Disease Epidemiology Collaboration (CKD-EPI) equation refit without adjustment for race Glucose [Mass/Vol] 114 mg/dL 82 - 115 mg/dL [facility] Interpretation and review of laboratory results Abnormal [facility] Potassium [Moles/Vol] 5.1 mmol/L 3.5 - 5.1 mmol/L [facility] Comment on above: Plasma potassium silvano ues may be up to 0.5 mmol/L lower than serum values. Sodium [Moles/Vol] 131 mmol/L Low 136 - 145 mmol/L [facility] Urea nitrogen [Mass/Vol] 69 mg/dL High 9 - 23 mg/dL [facility] Anion gap [Moles/Vol] 15 mmol/L High 3 - 13 mmol/L [facility] Calcium [Mass/Vol] 10.5 mg/dL High 8.8 - 10. 0 mg/dL [facility] Chloride [Moles/Vol] 102 mmol/L 98 - 10 7 mmol/L [facility] CO2 [Moles/Vol] 16 mmol/L Low 23 - 31 mmol/L [facility] Creatinine [Mass/Vol] 3.34 mg/dL High 0.72 - 1.25 mg/dL [facility] GFR/1.73 sq M.predicted (S/P/Bld) [Vol rate/Area] 17.8 mL/min Low - PINF [facility] Comment on above: Calculation based on the Chronic Kidney Disease Epidemiology Collaboration (CKD-EPI) equation refit without adjustment for race Glucose [Mass/Vol] 124 mg/dL High 82 - 115 mg/dL [facility] Interpretation and review of laboratory results Abnormal [facility] Potassium [Moles/Vol] 4.9 mmol/L 3.5 - 5.1 mmol/L [facility] Comment on above: Plasma potassium silvano ues may be up to 0.5 mmol/L lower than serum values. Sodium [Moles/Vol] 133 mmol/L Low 136 - 145 mmol/L [facility] Urea nitrogen [Mass/Vol] 69 mg/dL High 9 - 23 mg/dL [facility] CBC (HEMOGRAM)on 02-09-2025 Erythrocyte distribution width (RBC) [Ratio] 13.9 % Normal 11.5-15.0 [facility] Comment on above: Performed By: #### L [id number] ####Behavioral Assistant: ADITYA ESCALERA ([id number])[facility])[address] [place] [address] Hematocrit (Bld) [Volume fraction] 22.5 % Low 40.0-52.0 [facility] Comment on above: Performed By: #### L [id number] ####Behavioral Assistant: ADITYA ESCALERA ([id number])[address] Hemoglobin (Bld) [Mass/Vol] 7.4 g/dL Low 13.0-18.0 [facility] Comment on above: Performed By: #### L [id number] ####Behavioral Assistant: ADITYA ESCALERA ([id number])[facility])[address] [place] [address] MCH (RBC) [Entitic mass] 29.1 pg Normal 26.0-34.0 [facility] Comment on above: Performed By: #### L [id number] ####Behavioral Assistant: ADITYA ESCALERA ([id number])[facility])[address] [place] [address] MCHC 32.9 % Normal 30.5-36.0 [facility] Comment on above: Performed By: #### L [id number] ####Behavioral Assistant: ADITYA ESCALERA ([id number])[facility])[address] [place] [address] MCV (RBC) [Entitic vol] 88.6 fL Normal 77.0-99.0 [facility] Comment on above: Performed By: #### L [id number] ####Behavioral Assistant: ADITYA ESCALERA ([id number])[facility])[address] [place] [address] Platelet mean volume (Bld) [Entitic vol] 10.0 fL Normal 9.0-12.7 [facility] Comment on above: Performed By: #### L [id number] ####Behavioral Assistant: ADITYA ESCALERA ([id number])[facility])[address] [place] [address] Platelets (Bld) [#/Vol] 370 10*3/uL Normal 140-440 [facility] Comment on above: Performed By: #### L [id number] ####Behavioral Assistant: ADITYA ESCALERA ([id number])[facility])[address] [place] [address] RBC (Bld) [#/Vol] 2.54 10*6/uL Low 4.40-5.90 [facility] Comment on above: Performed By: #### L [id number] ####Behavioral Assistant: ADITYA ESCALERA ([id number])[facility])[address] [place] [address] WBC (Bld) [#/Vol] 12.3 10*3/uL High 3.6-10.7 [facility] Comment on above: Performed By: #### L [id number] ####Behavioral Assistant: ADITYA ESCALERA ([id number])[facility])[address] [place] [address] Erythrocyte distribution width (RBC) [Ratio] 13.7 % Normal 11.5-15.0 [facility] Comment on above: Performed By: #### L [id number] ####Behavioral Assistant: ADITYA [id number])[facility])[address] [place] [address] Hematocrit (Bld) [Volume fraction] 22.9 % Low 40.0-52.0 [facility] Comment on above: Performed By: #### L [id number] ####Behavioral Assistant: ADITYA ESCALERA ([id number])[facility])[address] [place] [address] Hemoglobin (Bld) [Mass/Vol] 7.6 g/dL Low 13.0-18.0 [facility] Comment on above: Performed By: #### L [id number] ####Behavioral Assistant: ADITYA ESCALERA ([id number])[facility])[address] [place] [address] MCH (RBC) [Entitic mass] 29.3 pg Normal 26.0-34.0 [facility] Comment on above: Performed By: #### L [id number] ####Behavioral Assistant: ADITYA ESCALERA ([id number])[facility] ([facility])[address] [place] [address] MCHC 33.2 % Normal 30.5-36.0 [facility] Comment on above: Performed By: #### L [id number] ####Behavioral Assistant: ADITYA ESCALERA ([id number])[facility] ([facility])[address] [place] [address] MCV (RBC) [Entitic vol] 88.4 fL Normal 77.0-99.0 [facility] Comment on above: Performed By: #### L [id number] ####Behavioral Assistant: ADITYA ESCALERA ([id number])[facility])[address] [place] [address] Platelet mean volume (Bld) [Entitic vol] 9.8 fL Normal 9.0-12.7 [facility] Comment on above: Performed By: #### L [id number] ####Behavioral Assistant: ADITYA ESCALERA ([id number])[facility])[address] [place] [address] Platelets (Bld) [#/Vol] 384 10*3/uL Normal 140-440 [facility] Comment on above: Performed By: #### L [id number] ####Behavioral Assistant: ADITYA ESCALERA ([id number])[facility])[address] [place] [address] RBC (Bld) [#/Vol] 2.59 10*6/uL Low 4.40-5.90 [facility] Comment on above: Performed By: #### L [id number] ####Behavioral Assistant: ADITYA ESCALERA ([id number])[facility])[address] [place] [address] WBC (Bld) [#/Vol] 12.7 10*3/uL High 3.6-10.7 [facility] Comment on above: Performed By: #### L [id number] ####Behavioral Assistant: ADITYA ESCALERA ([id number])[facility])[address] [place] [address] CBC panel Auto (Bld)on 02-09 Erythrocyte distribution width (RBC) [Ratio] 13.9 % 11.5 - 15.0 % [facility] Hematocrit (Bld) [Volume fraction] 22.5 % Low 40.0 - 52.0 % [facility] Hemoglobin (Bld) [Mass/Vol] 7.4 g/dL Low 13.0 - 18.0 g/dL [facility] Interpretation and review of laboratory results Abnormal [facility] MCH (RBC) [Entitic mass] 29.1 pg 26.0 - 34.0 pg [facility] MCHC (RBC) [Mass/Vol] 32.9 % 30.5 - 36.0 % [facility] MCV (RBC) [Entitic vol] 88.6 fL 77.0 - 99.0 fL [facility] Platelet mean volume (Bld) [Entitic vol] 10 fL 9.0 - 12.7 fL [facility] Platelets (Bld) [#/Vol] 370 10*3/uL 140 - 440 10*3/uL [facility] RBC (Bld) [#/Vol] 2.54 10*6/uL Low 4.40 - 5.9 0 10*6/uL [facility] WBC (Bld) [#/Vol] 12.3 10*3/uL High 3.6 - 10.7 10*3/uL [facility] Erythrocyte distribution width (RBC) [Ratio] 13.7 % 11.5 - 15.0 % [facility] Hematocrit (Bld) [Volume fraction] 22.9 % Low 40.0 - 52.0 % [facility] Hemoglobin (Bld) [Mass/Vol] 7.6 g/dL Low 13.0 - 18.0 g/dL [facility] Interpretation and review of laboratory results Abnormal [facility] MCH (RBC) [Entitic mass] 29.3 pg 26.0 - 34.0 pg [facility] MCHC (RBC) [Mass/Vol] 33.2 % 30.5 - 36.0 % [facility] MCV (RBC) [Entitic vol] 88.4 fL 77.0 - 99.0 fL [facility] Platelet mean volume (Bld) [Entitic vol] 9.8 fL 9.0 - 12.7 fL [facility] Platelets (Bld) [#/Vol] 384 10*3/uL 140 - 440 10*3/uL [facility] RBC (Bld) [#/Vol] 2.59 10*6/uL Low 4.40 - 5.9 0 10*6/uL [facility] WBC (Bld) [#/Vol] 12.7 10*3/uL High 3.6 - 10.7 10*3/uL [facility] No Panel InformationOrdered By: Shanna Smith on 02-09-2025 Case Report Non-Gynecologic Cyto logy Case: [id number] Authorizing Provider: Freddy Contreras DO Collected: 02/08/2025 0833 Ordering Location: [facility] Received: 02/08/2025 1355 Pathologist: Shanna Smith MD Specimen: Pleural Cavity, Left [facility] Work Phone: Case Screening Location [facility], [address] [place] [address]; CLIA: [id number]; Joint Commission: HCO [id number]; CAP: [id number] [facility] [employer] Work Phone: Comment w4zxiWReTNVnvMCkKPKl MVxhb kYaOCNypGHaT7CdpjzbLClsGV 6rLZ6exOgjbGBokTSjCYXsPgO dp9llg923qZOpz8cxDVHIMKbq ENWXUQu1sQmmK07nh0E9MesiC 64tyOXuZMT1GKSaYFDtuFKqKN PqSIC9HAKqeLTqT8kcLTZqON0 amkeeCFazEAupYFHkqHX4BFBu zXFrH2LxQBAkCPjfMPWuhxf5X tXgSf7llYCoeZsbDKspVPOnGC YwFOeaJWDuHpKwHLRUZNUYC61 BTCBTVVJHSUNBTCBDQVNFUyBF QAsORBHCA4WjVXcPDbLVPX2RU CUQLRSzZ7WjQ9DXYodSSLRrIG pgATRoCx4tCORvyKklnRparKM oNLcmL66zrdBsO3FcaGHejRTs jkHfVgvqHQ8eHMpyGHPmXXEei bRkiOD0WNR4uTQmZTwqh5DurA 4gvUgpaW9xcDInPB4uSKuotIZ cc9BqBF2lkYbbxQJqUoxfTYgw W9DuFQYNYpMiQhWcVtZnSoyeO XJ9 [facility] Work Phone: Disclaimer d1aklNNeAKDraDWaBgFf MDAwX PApy2ddFJWrvTZdYuQbCeSfTj TgZqfrtNRfBSWrRuUwi7uvt59 1aECht3npSVQiHbF0yZOrSLSo C13iJEQLV345MFZrMLkkx8ksr 5JsBOVkbDGkv4F4FINLDGatJU BYVHd6aDlsX14bd9H1EalbG4c qYOGaSFGcE2UfPB6jURNhUlr3 HXR5PMA5YPUiAECvW1FiJA3pQ XBjgBFvHQw0a0lpaFfeBMVzSA N6l6goYRmllrQeAI9kul3ujXh 8q5rgfcWhXUJbXQXlrUCLABSs L1ZuuWuhIq2loAa5eAzdWgiqJ RG6Bzb1RN7nfr88rjt2yOuuML XsggytXkK4WYwzJZIvcmqlGLj 8AZwhMELtuJT2CZAomOXuQ2Ak DPMaAV7gvgr8CLR8PAlqJDAdK hW7GQTdeLOvICHelRzfWKvlx5 59OYZ9DsIsAN3iW8Hgf6B0tT2 fiUTqHNEhwLEwUhApLCAvjs7e tHMsCJduz0IwWNS0lhF0mQXfx STzXOFmUT76Jpcxa2SzOegrQM I5TQPuusNnj9Ctm7vkFkYbwhR kQ1dxW7VhKZRfZRVeQJIpKzRj emDmz6Zfc6KkuOCplFk8y7wcL SFqGDWooQgjc4iqIFC4JBMbU1 F4aNOgs1aqNCryUVAusRI0awH 8MLQidRYcH7VupV3gJWUwWM4m cmq7h0ggUDY9KSeoUWMbKwI2x aC8XEMcxTFdBVUalRotSHyrl2 94LMQ0ImUsCKJkm8AuR7KpiVq kB44owXglF54wZOXndTzdwG2g lTxmnW7nYkIcUpZoPAavgAaap HVvzlgkQMzljgQ7RJdvwaauEZ ZrLKrgU5ydTeMoQJGpiVfcSXj mp8AeZBArFEMyMCFzXYzzW6zy bG0wkpzqXOdaHLDwiHmat8ysP cXmiJQ3QO6lkqRrHAScbZappf B6fvKbgAmdsS5tkQ1byBnrcH9 ggWOxoWB3ploiSUcgRCNimLPw fJhmjfreqTiwrHoawjeqgN1jG SJ2aWPiFRY6qWLvVSCpAASrBA KyhD40ec2jhDVvxxYlT2VkO5H siNChsFynIttvmLSwoGLlZz1l vVJsOK6yOLVovTZbI6TkWO2rS HBhclxwYXIgVGhlIHVzZSBvZi GczcOgt9CjhZ6cTPDvUTNgND7 3pvVdqnC9tHEoMTBpkwLxbAPb dHMgaXMgcmVndWxhdGVkIGFzI ELlEHHhUPo7bPBbx4TqL3ahpM PhfgOwS9WhiTSeZUBTMV9lVYs eq5VjdYXsnQXor9IxWZCgVPSb hI3wROUhVI3qVELpIGrvQZKsg bSaor9epgFqXLCyOEMdR4Njyo cukIdpwoWwGCDduw1qxiTsXCM 5IHRoZSBjbGluaWNhbCBsYWJv frR7t9VwVKIgq0PkN6JndSPzB TKssNKnLSX0g3NscE0cUDmacP XkWEJsEM8krVGuUYLoIFPvWNJ qYQIrSfopbIplWBWHULNdu6Xd CQ8vJEIkgJooYHWnnT9li2EnD PFpj78rHWCSEOglVVCaOIJCPO EgaGFzIGRldGVybWluZWQgdGh fzNJeiEAhHJFzKEGxRE4fAPUw zmUjdIMix8PhfOEzudDhi7Haj nWtIBOlJWG2YqIhoEXqIVPtaw CWyXxlwJ8wrZ5ih3EfkK6jWEg cdgTkaPXwWs7gkINbRY9lAPLn cmFmZmluIGVtYmVkZGVkIHRpc 6V1OG5eHMCksi7viorbpPZhpS 1pxZJoyuFcNY9aWH5lH2I9qCL fBKCcrbAuo8kfDLz4qYInOKYl lAZarXNkMulqLHG2MFOoMWS5h uTebaYqXQEzxAxbiZA5fMNtWW XuBRYjZWNjDN63Y5Jya8LxO8n lBS89GUSkPEUdDWSjdjRge5xt COMty8fxASUwiPQpM8VxSDKuy JEdkxzhRbZaSFN2PZHbEUE5pB HnACDsZ7YhwPClfGMfdE05WU8 jnLF0AB4gIAZ9VWdbmS4bApNK kC20pg9liDW5r2QoLI9jJ9IyD UGaa2B4skKqNTMbJJ5stEBsBG VuIHZhbGlkYXRlZCBvbiBkZWN dtXYxTcdlEGE2oPXmqCQuMkMI WZZ3jJRtMNVma1HrUFQuPIRls bHbatWjTFAgGBF0iCWdUQAemX Pyh86eA7e9AD4kiZwrHFMuuXW dYLZuw4OzfAPboGk1eWNcSpXn RFmaJNZnHHqkiOe7qEB2XV1bC VAfC5BwT8vjvCCnVSJlMXXddC Tfbh5mkUDuzU== [facility] Work Phone: Gross Description p6gtcKAxQLZngNAZOHPl MDRcY L5dqZbudTh8tDeyRQGajbW3gV WbCSqhu4rmBAW8m9dsmiZCGwp cLWMdGB8eRYvnECNzBD9wPeWu XGRlZmYxXHBhcGVydzEyMjQwX WYpiWHcmOE8JCFbCI8xpgoxEJ kpITjgSOMpamR7MXFobCQdB5W kNVEcAM6nwyhaNDX0XHPFWerk Ej1wmMEezGMQGzunDzOtWrFvQ UAxRBPwPEYxj0zkacREnrtmiT h0PXa6HDHmPHQlgYNku9T9ZMj vp3jft7ZkB0Iod8XoVEr2kS1F ZsgsD23rp2M3Tch5WMTgNZb3F GnqTAGmEBDmRgr8GAw8S5xfFC WoHHdhRIKtAMfweSYhSIo3ARr kf5LquWPnNUo0PTxkFVCuL5Ku P8SxZOeyUvAnXDiwNUInVKGmK MzvCPHiK2UMBPLxRmb2PMU0Mn QaCEr6HYcmDqCWBSE4SSt6NTM 4BRu1VCXeVY1cULqbqCVwBAyv CwnjIEdlC852JZuhWLCwG4MmB 3QgXFxzZyBcXGlkIDUxMDAyIF ttVEWeF9UIRXYmIkx5LFZ8YgD yZWm2QUrjL8AHPSMgISB4VxX1 BQBzTnR0QSy3PKPCBb8oYOk4C ZN4ZdDqFRC9XZo5BZqlyfpbAY p8ZDIjZFoapvIeVGrsUwadBNm eC92jcKIhMZJCXwihbBVtupry cGljTmVzdERvYzEgDQpcbHRyc BDzTB3HXBy4ppCrDVXyPLmsrr VhNKEkQTCBdOH7gcRoWTTlzuz 6tPhsUOXatDovL8TgYHCnQQYk qvPKRpgjUK7JROfisv78GME0e 0pedRMfMXubJvtckRGksbN5EC vMWDPFDIvUQfGpHD6bWAmJE8O ILOyBOregPZdwZpY3AMzchZfp UojzpbBzeVNrFoRGtZ3teP28I Yc4UYCpLSvex0hpJJMcQNrek1 RcYEgOFZDZFL1GVM7jzDU0OWh DLBEWLFvnLUugExQ8LNeglXpr NmbvcnSdyAGmJzXUlI7qfEceu O8aaCVyK2mdOyOqIMHoJGDyh1 HmK7L8WOZsKUpiz6joNAIpSGo or3UuLRnXXOOAVS2VYD8zsHU0 VWyTEARKQ0qHqPUeGXNbSAkiq LP0e7nruXRyq8y4CCcrCOQ0mM 5tRJ5sPAuhUnevqWY0KFixHux fnR8cnOWZZUKHZamYJvcbbwEt JZ0TASKQQE9OiHQzFXKjZRhzx OP2k2bowXKjp7z6HWtdAQD2sR xwbGFpblxsdHJjaFxmczIwICB mbHVpZCByZWNlaXZlZCBccHJv rMWdzGuuUgbvkGX4FHfbYfmsm E8rlRGLOQKUScfAHpjsqyMiTF 9NAOIRCeOQAD91YWZ2RHJ8kJD 6L535BOHpQYIzoUYvIUipT448 pL6uV5v5y0i3iRjjBsfuoZN3B GsxBhbexD9vjZHMBPCWLtzKRs tokkRqDK2CFFIEAN8QcSDmNOG nWWmgsSZ5a2ataCCnt3a6SUng EWZ4wVuqeNHbbbxjaVCnlFbho sFlIK1lTQIzmnTUXmphBCDdEl BNYXRlcmlhbHMgUHJlcGFyZWQ 8AYUgNTNnXTAcMZHoxD0QcfFh EYQtYPIsYENviPjyTvqdY1lgs sbdoVJuPB8KKRMyhkRCOjiiWj xmczIyXHBhciANClxzYTMwXGV geTHUz6YpXEROYug6EP8CXAOj CDSxsMWJULC8IT8hRAiwJIIiB 9WsT5XqcpN0a7tjiFpne3QxhW ByVE0fbHZbWD7CISZmfhViUDt yjIwwwG0jZOo8 [employer] Phone: Pathologist Interpretation Location [facility], [address] [place] [id number]; CLIA: [id number]; Joint Commission: HCO [id number]; CAP: [id number] [facility] Phone: Pathology report final diagnosis Narrative c5wfmFFnAMSiqODtGLXlHWemx qZnZKEmfUXaO0NisztiUNccJZ 0jPB8xqRzrdOSwfNGpUITjVxS mc5rlc829aXAea1nxVVDVRGwa OXVPMTj8zPidY79qf7M3HbuuN 8zmZAP5MAaumoSnjth3LCSqsB E0TYg3EDRlsQWwgmClSfYfACU vcFEwoXM7LFQrSK0xprshTQyi GOnqCRHstcM2KZCkuJJkM4FiJ VUtLG4dkdpjJNC1AAjeOMVxEY P2CmSsJJQky3Ryhiy1UjHenKP yZFxwbGFpblxmczIwXGNmMSBB KTZnHHCiFVQxTRsbY1A1qYD4Y USRHST4RA8wKl3rxKNQaGGzXE dgB4s6r8pkF2i6RZVtXWCrATf yFZQaWSpBRQsFA1aEDALnVQ6N PTgTPsRDDCggD1HKVFFFYG5ZB lQuXHBhciAgXHBhcn0= [employer] Phone: [employer] Phone: Progress Noteon 02-09-2025 Progress Note ----- ----- Attestation signed by Freddy Contreras DO at 02/09/2025 3:36 PM CARDIOTHORACIC SURGERY DOS: 02/09/25 POD # 1 Mediastinal biopsy; mechanical pleurodesis I personally performed a lcaw-rk-vezs diagnostic evaluation on this patient I agree [...] of 15 minutes were spent between the vdnb-cn-rrla encounter, physical exam, reviewing the medical history, coordinating care, counseling/educating the patient, ordering medications/test/procedur es, interpreting results and documenting in the patient's record on the day of the encounter. The patient was seen and examined independently and relevant data reviewed by myself. Lucero Contreras DO [facility] Cardiothoracic Surgery ----- Department of General Surgery [...] Pain and na (more content not included)... [facility] Progress Note PHYSICAL THERAPY [facility] Name/MRN: Juju Caceres ([id number]) Date: 02/09/2025 PT orders received per Gasper activity/mobility score. Patient currently with Gasper activity/mobility score greater than 2. Per therapy services guidelines, will discharge PT orders. Please place regular PT eval/treat orders if deemed appropriate. Shelli Solorzano, PT [facility] XR CHEST 1 VIEWon 02-09-2025 XR CHEST [...] Electronically Signed Date/Time: 02/09/2025 5:14 AM EDT [facility] XR Chest Single viewon 02-09 Left chest tube. Pos sible tiny left apical pneumothorax Report Dictated on Electronically Signed By: Laci Mcintyre MD Electronically Signed Date/Time: 02/09/2025 5:14 AM EDT [facility] [employer] Patient Name: JUJU GAINES : 1945 [...] No other consolidation Costophrenic angles are sharp. [facility] Laci Mcintyre MD - 02/09/2025 Patient Name: [...] Electronically Signed Date/Time: 02/09/2025 5:14 AM EDT [facility] Radiology Study observation (narrative) [facility] [employer] XR Chest Single viewOrdered By: Laci Mcintyre on 02-09-2025 [facility] [employer] Work Phone: BASIC METABOLIC PANELon Anion gap [Moles/Vol] 9 mmol/L Normal 3-13 [facility] Comment on above: Performed By: #### L AB15 ####Behavioral Assistant: ADITYA ESCALERA ([id number])[facility] ([facility] Calcium [Mass/Vol] 10.6 mg/dL High 8.8-10.0 [facility] Comment on above: Performed By: #### L AB15 ####Behavioral Assistant: ADITYA ESCALERA ([id number])[facility] ([facility])[address] [place] [address] Chloride [Moles/Vol] 103 mmol/L Normal 98-107 [facility] Comment on above: Performed By: #### L AB15 ####Behavioral Assistant: ADITYA ESCALERA ([id number])[facility])[address] [place] [address] [place] CO2 [Moles/Vol] 19 mmol/L Low 23-31 [facility] Comment on above: Performed By: #### L AB15 ####Behavioral Assistant: ADITYA ESCALERA ([id number])[facility])[address] [place] [address] Creatinine [Mass/Vol] 3.23 mg/dL High 0.72-1.25 [facility] Comment on above: Performed By: #### L AB15 ####Behavioral Assistant: ADITYA ESCALERA ([id number])[facility])[address] [place] [address] [place] GLOMERULAR FILTRATION RATE ML/MIN/1.73 SQ M.PREDICTED 18.5 mL/min/1.73m*2 Low >60.0 [facility] Comment on above: Result Comment: Calc ulation based on the Chronic Kidney Disease Epidemiology Collaboration (CKD-EPI) equation refit without adjustment for race Performed By: #### L AB15 ####Behavioral Assistant: ADITYA ESCALERA ([id number])[facility] ([facility])[address] [place] [address] [place] Glucose [Mass/Vol] 132 mg/dL High 82-115 [facility] Comment on above: Performed By: #### L AB15 ####Behavioral Assistant: ADITYA ESCALERA ([id number])[facility])[address] [place] [address] Potassium [Moles/Vol] 5.1 mmol/L Normal 3.5-5.1 [facility] Comment on above: Result Comment: [facility] potassium values may be up to 0.5 mmol/L lower than serum values. Performed By: #### L AB15 ####Behavioral Assistant: ADITYA ESCALERA ([id number])[facility])[address] [place] [address] Sodium [Moles/Vol] 131 mmol/L Low 136-145 [facility] Comment on above: Performed By: #### L AB15 ####Behavioral Assistant: ADITYA ESCALERA ([id number])[facility])[address] [place] [address] Urea nitrogen [Mass/Vol] 64 mg/dL High 9-23 [facility] Comment on above: Performed By: #### L AB15 ####Behavioral Assistant: ADITYA ESCALERA ([id number])[facility])[address] [place] [address] Anion gap [Moles/Vol] 11 mmol/L Normal 3-13 [facility] Comment on above: Order Comment: Z06.09 18 Performed By: #### L AB15 ####Behavioral Assistant: ADITYA ESCALERA ([id number])[facility])[address] [place] [address] Calcium [Mass/Vol] 12.0 mg/dL High 8.8-10.0 [facility] Comment on above: Order Comment: Z. 18 Performed By: #### L AB15 ####Behavioral Assistant: ADITYA ESCALERA ([id number])[facility])[address] [place] [address] Chloride [Moles/Vol] 102 mmol/L Normal 98-107 [facility] Comment on above: Order Comment: Z. 18 Performed By: #### L AB15 ####Behavioral Assistant: ADITYA ESCALERA ([id number])[facility])[address] [place] [address] CO2 [Moles/Vol] 20 mmol/L Low 23-31 [facility] Comment on above: Order Comment: Z. 18 Performed By: #### L AB15 ####Behavioral Assistant: ADITYA [id number])[facility] ([facility])[address] [place] [address] Creatinine [Mass/Vol] 3.27 mg/dL High 0.72-1.25 [facility] Comment on above: Order Comment: Performed By: #### L AB15 ####Behavioral Assistant: ADITYA ESCALERA ([id number])[facility] ([facility])[address] [place] [address] [place] GLOMERULAR FILTRATION RATE ML/MIN/1.73 SQ M.PREDICTED 18.2 mL/min/1.73m*2 Low >60.0 [facility] Comment on above: Order Comment: Result Comment: Calc ulation based on the Chronic Kidney Disease Epidemiology Collaboration (CKD-EPI) equation refit without adjustment for race Performed By: #### L AB15 ####Behavioral Assistant: ADITYA ESCALERA ([id number])[facility] ([facility])[address] [place] [address] Glucose [Mass/Vol] 100 mg/dL Normal 82-115 [facility] Comment on above: Order Comment: Performed By: #### L AB15 ####Behavioral Assistant: ADITYA ESCALERA ([id number])[facility])[address] [place] [address] Potassium [Moles/Vol] 4.6 mmol/L Normal 3.5-5.1 [facility] Comment on above: Order Comment: Result Comment: [facility] potassium values may be up to 0.5 mmol/L lower than serum values. Performed By: #### L AB15 ####Behavioral Assistant: ADITYA ESCALERA ([id number])[facility] ([facility])[address] [place] [address] [place] Sodium [Moles/Vol] 133 mmol/L Low 136-145 [facility] Comment on above: Order Comment: Performed By: #### L AB15 ####Behavioral Assistant: ADITYA ESCALERA ([id number])[facility])[address] Urea nitrogen [Mass/Vol] 62 mg/dL High 9-23 [facility] Comment on above: Order Comment: Z01.8 18 Performed By: #### L AB15 ####Behavioral Assistant: ADITYA ESCALERA ([id number])[facility] ([facility])[address] [place] [address] Basic metabolic 1998 panelon 02-08-2025 Anion gap [Moles/Vol] 9 mmol/L 3 - 13 mmol/L [facility] Calcium [Mass/Vol] 10.6 mg/dL High 8.8 - 10. 0 mg/dL [facility] Chloride [Moles/Vol] 103 mmol/L 98 - 10 7 mmol/L [facility] CO2 [Moles/Vol] 19 mmol/L Low 23 - 31 mmol/L [facility] Creatinine [Mass/Vol] 3.23 mg/dL High 0.72 - 1.25 mg/dL [facility] GFR/1.73 sq M.predicted (S/P/Bld) [Vol rate/Area] 18.5 mL/min Low - PINF [facility] Comment on above: Calculation based on the Chronic Kidney Disease Epidemiology Collaboration (CKD-EPI) equation refit without adjustment for race Glucose [Mass/Vol] 132 mg/dL High 82 - 115 mg/dL [facility] Interpretation and review of laboratory results Abnormal [facility] Potassium [Moles/Vol] 5.1 mmol/L 3.5 - 5.1 mmol/L [facility] Comment on above: Plasma potassium silvano ues may be up to 0.5 mmol/L lower than serum values. Sodium [Moles/Vol] 131 mmol/L Low 136 - 145 mmol/L [facility] [employer] Urea nitrogen [Mass/Vol] 64 mg/dL High 9 - 23 mg/dL [facility] Anion gap [Moles/Vol] 11 mmol/L 3 - 13 mmol/L [facility] Calcium [Mass/Vol] 12 mg/dL High 8.8 - 10. 0 mg/dL [facility] Chloride [Moles/Vol] 102 mmol/L 98 - 10 7 mmol/L [facility] CO2 [Moles/Vol] 20 mmol/L Low 23 - 31 mmol/L [facility] Creatinine [Mass/Vol] 3.27 mg/dL High 0.72 - 1.25 mg/dL [facility] GFR/1.73 sq M.predicted (S/P/Bld) [Vol rate/Area] 18.2 mL/min Low - PINF [facility] Comment on above: Calculation based on the Chronic Kidney Disease Epidemiology Collaboration (CKD-EPI) equation refit without adjustment for race Glucose [Mass/Vol] 100 mg/dL 82 - 115 mg/dL [facility] Interpretation and review of laboratory results Abnormal [facility] Potassium [Moles/Vol] 4.6 mmol/L 3.5 - 5.1 mmol/L [facility] Comment on above: Plasma potassium silvano ues may be up to 0.5 mmol/L lower than serum values. Sodium [Moles/Vol] 133 mmol/L Low 136 - 145 mmol/L [facility] Urea nitrogen [Mass/Vol] 62 mg/dL High 9 - 23 mg/dL [facility] CBC (HEMOGRAM)on 02-08-2025 Erythrocyte distribution width (RBC) [Ratio] 13.8 % Normal 11.5-15.0 [facility] Comment on above: Order Comment: Z018 Performed By: #### L [id number] ####Behavioral Assistant: ADITYA ESCALERA ([id number])[address] Hematocrit (Bld) [Volume fraction] 32.0 % Low 40.0-52.0 [facility] Comment on above: Order Comment: Z018 Performed By: #### L [id number] ####Behavioral Assistant: ADITYA ESCALERA ([id number])[facility])[address] [place] [address] Hemoglobin (Bld) [Mass/Vol] 10.3 g/dL Low 13.0-18.0 [facility] Comment on above: Order Comment: Z018 Performed By: #### L [id number] ####Behavioral Assistant: ADITYA ESCALERA ([id number])[facility])[address] [place] [address] MCH (RBC) [Entitic mass] 28.9 pg Normal 26.0-34.0 [facility] Comment on above: Order Comment: . 18 Performed By: #### L [id number] ####Behavioral Assistant: ADITYA ESCALERA ([id number])[facility])[address] [place] [address] MCHC 32.2 % Normal 30.5-36.0 [facility] Comment on above: Order Comment: . 18 Performed By: #### L [id number] ####Behavioral Assistant: ADITYA ESCALERA ([id number])[facility])[address] [place] [address] MCV (RBC) [Entitic vol] 89.6 fL Normal 77.0-99.0 [facility] Comment on above: Order Comment: .01 17 Performed By: #### L [id number] ####Behavioral Assistant: ADITYA ESCALERA ([id number])[facility])[address] [place] [address] Platelet mean volume (Bld) [Entitic vol] 10.3 fL Normal 9.0-12.7 [facility] Comment on above: Order Comment: . 18 Performed By: #### L [id number] ####Behavioral Assistant: ADITYA ESCALERA ([id number])[facility])[address] [place] [address] Platelets (Bld) [#/Vol] 458 10*3/uL High 140-440 [facility] Comment on above: Order Comment: . 18 Performed By: #### L [id number] ####Behavioral Assistant: ADITYA ESCALERA ([id number])[facility])[address] [place] [address] RBC (Bld) [#/Vol] 3.57 10*6/uL Low 4.40-5.90 [facility] Comment on above: Order Comment: . 18 Performed By: #### L [id number] ####Behavioral Assistant: ADITYA ESCALERA ([id number])[facility])[address] [place] [address] WBC (Bld) [#/Vol] 9.3 10*3/uL Normal 3.6-10.7 [facility] Comment on above: Order Comment: Z01.8 18 Performed By: #### L [id number] ####Behavioral Assistant: ADITYA ESCALERA ([id number])[facility])[address] [place] [address] CBC W Auto Differential pane l (Bld)Ordered By: Araceli Canada on 02-08-2025 Basophils (Bld) [#/Vol] 0 10*3/uL 0.0 - 0.2 10*3/uL [facility] Basophils/100 WBC (Bld) 0.3 % 0.0 - 2.0 % [facility] Eosinophils (Bld) [#/Vol] 0 10*3/uL 0.0 - 0.5 10*3/uL [facility] Eosinophils/100 WBC (Bld) 0.2 % 0.0 - 6.0 % [facility] Erythrocyte distribution width (RBC) [Ratio] 13.7 % 11.5 - 15.0 % [facility] Hematocrit (Bld) [Volume fraction] 21.5 % Low 40.0 - 52.0 % [facility] Hemoglobin (Bld) [Mass/Vol] 7.1 g/dL Low 13.0 - 18.0 g/dL [facility] Immature granulocytes (Bld) [#/Vol] 0.1 10*3/uL High NINF - 0.1 10*3/uL [facility] Immature granulocytes/100 WBC (Bld) 0.6 % 0.0 - 2.0 % [facility] Interpretation and review of laboratory results Abnormal [facility] Lymphocytes (Bld) [#/Vol] 0.3 10*3/uL Low 1.0 - 4.3 10*3/uL [facility] Lymphocytes/100 WBC (Bld) 2.2 % Low 15.0 - 45.0 % [facility] MCH (RBC) [Entitic mass] 29 pg 26.0 - 34.0 pg [facility] MCHC (RBC) [Mass/Vol] 33 % 30.5 - 36.0 % [facility] MCV (RBC) [Entitic vol] 87.8 fL 77.0 - 99.0 fL [facility] Monocytes (Bld) [#/Vol] 0.3 10*3/uL 0.0 - 0.9 10*3/uL [facility] [facility] Monocytes/100 WBC (Bld) 2.2 % Low 5.0 - 13.0 % [facility] Neutrophils (Bld) [#/Vol] 11.7 10*3/uL High 1.8 - 7.5 10*3/uL [facility] Neutrophils/100 WBC (Bld) 94.5 % High 38.0 - 82.0 % [facility] Nucleated RBC/100 WBC (Bld) [Ratio] 0 % [facility] Platelet mean volume (Bld) [Entitic vol] 9.9 fL 9.0 - 12.7 fL [facility] Platelets (Bld) [#/Vol] 352 10*3/uL 140 - 440 10*3/uL [facility] RBC (Bld) [#/Vol] 2.45 10*6/uL Low 4.40 - 5.9 0 10*6/uL [facility] WBC (Bld) [#/Vol] 12.4 10*3/uL High 3.6 - 10.7 10*3/uL [facility] CBC WITH AUTO DIFFERENTIALon 02-08-2025 Basophils (Bld) [#/Vol] 0.0 10*3/uL Normal 0.0-0.2 [facility] Comment on above: Performed By: #### L [id number] ####Behavioral Assistant: ADITYA ESCALERA ([id number])[address] Basophils/100 WBC (Bld) 0.3 % Normal 0.0-2.0 [facility] Comment on above: Performed By: #### L [id number] ####Behavioral Assistant: ADITYA [id number])[address] Eosinophils (Bld) [#/Vol] 0.0 10*3/uL Normal 0.0-0.5 [facility] Comment on above: Performed By: #### L [id number] ####Behavioral Assistant: ADITYA [id number])[facility] [address] Eosinophils/100 WBC (Bld) 0.2 % Normal 0.0-6.0 [facility] Comment on above: Performed By: #### L [id number] ####Behavioral Assistant: ADITYA ESCALERA ([id number])[facility])[address] [place] [address] Erythrocyte distribution width (RBC) [Ratio] 13.7 % Normal 11.5-15.0 [facility] Comment on above: Performed By: #### L [id number] ####Behavioral Assistant: ADITYA ESCALERA ([id number])[address] Hematocrit (Bld) [Volume fraction] 21.5 % Low 40.0-52.0 [facility] Comment on above: Performed By: #### L [id number] ####Behavioral Assistant: ADITYA ESCALERA ([id number])[address] Hemoglobin (Bld) [Mass/Vol] 7.1 g/dL Low 13.0-18.0 [facility] Comment on above: Performed By: #### L [id number] ####Behavioral Assistant: ADITYA ESCALERA ([id number])[address] IMMATURE GRANS % 0.6 % Normal 0.0-2.0 [facility] Comment on above: Performed By: #### L [id number] ####Behavioral Assistant: ADITYA ESCALERA ([id number])[facility])[address] [place] [address] IMMATURE GRANS ABSOLUTE 0.1 10*3/uL High <0.1 [facility] Comment on above: Performed By: #### L [id number] ####Behavioral Assistant: ADITYA ESCALERA ([id number])[facility])[address] [place] [address] Lymphocytes (Bld) [#/Vol] 0.3 10*3/uL Low 1.0-4.3 [facility] Comment on above: Performed By: #### L [id number] ####Behavioral Assistant: ADITYA ESCALERA ([id number])[facility])[address] [place] [address] Lymphocytes/100 WBC (Bld) 2.2 % Low 15.0-45.0 [facility] Comment on above: Performed By: #### L [id number] ####Behavioral Assistant: ADITYA ESCALERA ([id number])[facility])[address] [place] [address] MCH (RBC) [Entitic mass] 29.0 pg Normal 26.0-34.0 [facility] Comment on above: Performed By: #### L [id number] ####Behavioral Assistant: ADITYA ESCALERA ([id number])[facility])[address] [place] [address] MCHC 33.0 % Normal 30.5-36.0 [facility] Comment on above: Performed By: #### L [id number] ####Behavioral Assistant: ADITYA ESCALERA ([id number])[facility])[address] [place] [address] MCV (RBC) [Entitic vol] 87.8 fL Normal 77.0-99.0 [facility] Comment on above: Performed By: #### L [id number] ####Behavioral Assistant: ADITYA ESCALERA ([id number])[facility])[address] [place] [address] Monocytes (Bld) [#/Vol] 0.3 10*3/uL Normal 0.0-0.9 [facility] Comment on above: Performed By: #### L [id number] ####Behavioral Assistant: ADITYA ESCALERA ([id number])[facility])[address] [place] [address] Monocytes/100 WBC (Bld) 2.2 % Low 5.0-13.0 [facility] Comment on above: Performed By: #### L [id number] ####Behavioral Assistant: ADITYA [id number])[facility])[address] [place] [address] NEUTROPHILS ABSOLUTE 11.7 10*3/uL High 1.8-7.[address] [facility] Comment on above: Performed By: #### L [id number] ####Behavioral Assistant: ADITYA ESCALERA ([id number])[facility])[address] [place] [address] Neutrophils/100 WBC (Bld) 94.5 % High 38.0-82.0 [facility] Comment on above: Performed By: #### L [id number] ####Behavioral Assistant: ADITYA ESCALERA ([id number])[facility])[address] [place] [address] NRBC 0.0 /100 WBCs Normal 0.0-2.0 [facility] Comment on above: Performed By: #### L [id number] ####Behavioral Assistant: ADITYA ESCALERA ([id number])[facility])[address] [place] [address] Platelet mean volume (Bld) [Entitic vol] 9.9 fL Normal 9.0-12.7 [facility] Comment on above: Performed By: #### L [id number] ####Behavioral Assistant: ADITYA ESCALERA ([id number])[facility])[address] [place] [address] Platelets (Bld) [#/Vol] 352 10*3/uL Normal 140-440 [facility] Comment on above: Performed By: #### L [id number] ####Behavioral Assistant: ADITYA ESCALERA ([id number])[facility])[address] [place] [address] RBC (Bld) [#/Vol] 2.45 10*6/uL Low 4.40-5.90 [facility] Comment on above: Performed By: #### L [id number] ####Behavioral Assistant: ADITYA ESCALERA ([id number])[facility])[address] [place] [address] WBC (Bld) [#/Vol] 12.4 10*3/uL High 3.6-10.7 [facility] Comment on above: Performed By: #### L [id number] ####Behavioral Assistant: ADITYA ESCALERA ([id number])[facility] ([facility])[address] CBC panel Auto (Bld)Ordered By: Nadira Lenz on 02-08-2025 Erythrocyte distribution width (RBC) [Ratio] 13.8 % 11.5 - 15.0 % [facility] Hematocrit (Bld) [Volume fraction] 32 % Low 40.0 - 52.0 % [facility] Hemoglobin (Bld) [Mass/Vol] 10.3 g/dL Low 13.0 - 18.0 g/dL [facility] Interpretation and review of laboratory results Abnormal [facility] MCH (RBC) [Entitic mass] 28.9 pg 26.0 - 34.0 pg [facility] MCHC (RBC) [Mass/Vol] 32.2 % 30.5 - 36.0 % [facility] MCV (RBC) [Entitic vol] 89.6 fL 77.0 - 99.0 fL [facility] Platelet mean volume (Bld) [Entitic vol] 10.3 fL 9.0 - 12.7 fL [facility] Platelets (Bld) [#/Vol] 458 10*3/uL High 140 - 440 10*3/uL [facility] RBC (Bld) [#/Vol] 3.57 10*6/uL Low 4.40 - 5.9 0 10*6/uL [facility] WBC (Bld) [#/Vol] 9.3 10*3/uL 3.6 - 10.7 10*3/uL [facility] Op Noteon 02-08-2025 Op Note CARDIOTHORACIC SURGERY--OPERATIVE NOTE Date: 02/08/25 Preoperative Diagnosis: Mediastinal adenopathy Pleural effusion Postoperative Diagnosis: Mediastinal adenopathy Pleural effusion Procedure: Left thoracoscopy converted to left thoracotomy Mediastinal biopsy Drainage of pleural effusion Parietal pleural biopsy Mechanical pleurodesis Surgeon: Lucero Contreras DO Assistant Therapy Aide: Dilan Goncalves MD ([id number]) Anesthesia: General--Dr. Rojas [...] around the point of bleeding in a immlug-kh-oydzo fashion which was successful and completely controlling [...] pad for mechanical pleurodesis. A single 28 [place] chest tube was placed in a pleural [...] the (more content not included)... 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] Procedures LEFT VIDEO-ASSISTED THORACOSCOPIC SURGERY 27460 - [place] THORACOSCOPY W/LOBECTOMY SINGLE LOBE MEDIASTINOSCOPY WITH BIOPSY 44931 - [place] MEDIASTINOSCOPY INCLUDES MEDIASTINAL MASS BIOPSY Surgeons * [...] Freddy Contreras, DO 02/08/25 0944 No Routine [id number] Description: Mediastinal Mass Comment: Send fresh for Lymphoma protocol 3 Pleural Cavity, Left Tissue TISSUE EXAM Freddy Contreras, DO 02/08/25 1057 No Routine [id number] Description: parietal pleura Staff: Operating Room Orderly: Ellen Crowell RN; Cydney Lemons RN Scrub Person: Felipe Reynaga RN [place] to Circ: Jun Vicente RN Findings: VATS [...] (two hours if receiving Vancomycin or flouroquinolone) [facility] Progress Noteon 02-08-2025 Progress Note and Jessa n to bedside to see patient [facility] Progress Note Unable to update pat ient family. All out to lunch at this time Normal [facility] XR CHEST 1 VIEWon 02-08-2025 XR CHEST [...] case. No instrument count performed. Normal [facility] XR Chest Single viewon 02-08 Impression: Please note endotracheal tube positioning. Report Dictated on Electronically Signed By: Aleta Madison MD Electronically Signed Date/Time: 02/08/2025 12:41 PM EDT [facility] Patient Name: JUJU GAINES : [...] be positioned within the left mainstem bronchus. [facility] Aleta Madison MD - 02/08/2025 [...] Electronically Signed Date/Time: 02/08/2025 12:41 PM EDT [facility] Radiology Study observation (narrative) [email or web address] XR Chest Single viewOrdered By: Aleta Madison on 02-08-2025 [email or web address] Work Phone: XR CHEST 2 VIEWSon XR [...] Date/Time: 02/06/2025 9:26 PM EDT Normal [facility] Progress Noteon 02-04-2025 Progress Note SCARLET, pt scheduled fo r left VATS 02/08/25 Normal [facility] [id number] 02-03-2025 [id number] Medication List Accurate as of February 03, 2025 2:42 PM. Always use your most recent med list. cholecalciferol 125 MCG (5000 UT) capsule Commonly known as: Vitamin D-3 Medication Adjustments for Surgery: Hold morning of surgery fish oil 500 MG capsule Commonly known as: [place]-3 Medication Adjustments for Surgery: Hold morning of [...] your scheduled surgery time. Please bring your [facility] Surgical folder and medication list with you day of surgery. We encourage you to write down any questions you may have for the surgeon, anesthesiologist, or other members of the surgical team and bring it with you the day of surgery. Please bring photo ID and insurance information.CASH REGISTER BALANCER AND PARKING IN THE MAIN DECK ARE [...] DAY DESK AND CHECK IN Normal [facility] BASIC METABOLIC PANELon 09-0 -2024 Anion gap [Moles/Vol] 10 mmol/L Normal 3-13 [facility] Comment on above: Performed By: #### L AB15 ####Behavioral Assistant: ADITYA ESCALERA ([phone])[address] Calcium [Mass/Vol] 12.3 mg/dL High 8.8-10.0 [facility] Comment on above: Performed By: #### L AB15 ####Behavioral Assistant: ADITYA ESCALERA ([id number])[facility])[address] [place] [address] Chloride [Moles/Vol] 101 mmol/L Normal 98-107 [facility] Comment on above: Performed By: #### L AB15 ####Behavioral Assistant: ADITYA ESCALERA ([phone])[facility])[address] [place] [address] CO2 [Moles/Vol] 23 mmol/L Normal 23-31 [facility] Comment on above: Performed By: #### L AB15 ####Behavioral Assistant: ADITYA [id number])[address] Creatinine [Mass/Vol] 3.04 mg/dL High 0.72-1.25 [facility] Comment on above: Performed By: #### L AB15 ####Behavioral Assistant: ADITYA [id number])[facility])[address] [place] [address] GLOMERULAR FILTRATION RATE ML/MIN/1.73 SQ M.PREDICTED 19.9 mL/min/1.73m*2 Low >60.0 [facility] Comment on above: Result Comment: Calc ulation based on the Chronic Kidney Disease Epidemiology Collaboration (CKD-EPI) equation refit without adjustment for race Performed By: #### L AB15 ####Behavioral Assistant: ADITYA ESCALERA ([phone])[facility])[address] [place] [address] Glucose [Mass/Vol] 98 mg/dL Normal 82-115 [facility] Comment on above: Performed By: #### L AB15 ####Behavioral Assistant: ADITYA ESCALERA ([phone])[address] Potassium [Moles/Vol] 5.1 mmol/L Normal 3.5-5.1 [facility] Comment on above: Result Comment: [facility] potassium values may be up to 0.5 mmol/L lower than serum values. Performed By: #### L AB15 ####Behavioral Assistant: ADITYA ESCALERA ([id number])[address] Sodium [Moles/Vol] 134 mmol/L Low 136-145 [facility] Comment on above: Performed By: #### L AB15 ####Behavioral Assistant: ADITYA ESCALERA ([id number])[place] [address] [place] Urea nitrogen [Mass/Vol] 56 mg/dL High 9-23 [facility] Comment on above: Performed By: #### L AB15 ####Behavioral Assistant: ADITYA ESCALERA ([id number])[address] BLOOD TYPE AND SCREEN GELon 02-03-2025 ABO GROUPING AB Normal [facility] Comment on above: Performed By: #### L [id number] ####Behavioral Assistant: ADITYA [id number])[facility])[address] [place] [address] RH TYPE IN BLOOD Positive Normal [facility] Comment on above: Performed By: #### L [id number] ####Behavioral Assistant: ADITYA ESCALERA ([phone])[facility])[address] [place] [address] CBC (HEMOGRAM)on 02-03-2025 Erythrocyte distribution width (RBC) [Ratio] 13.9 % Normal 11.5-15.0 [facility] Comment on above: Performed By: #### L [id number] ####Behavioral Assistant: ADITYA ESCALERA ([id number])[facility])[address] [place] [address] Hematocrit (Bld) [Volume fraction] 30.8 % Low 40.0-52.0 [facility] Comment on above: Performed By: #### L [id number] ####Behavioral Assistant: ADITYA ESCALERA ([id number])[facility])[address] [place] [address] Hemoglobin (Bld) [Mass/Vol] 9.9 g/dL Low 13.0-18.0 [facility] Comment on above: Performed By: #### L AB294 ####Behavioral Assistant: ADITYA ESCALERA ([id number])[facility])[address] [place] [address] MCH (RBC) [Entitic mass] 28.9 pg Normal 26.0-34.0 [facility] Comment on above: Performed By: #### L AB294 ####Behavioral Assistant: ADITYA ESCALERA ([id number])[facility])[address] [place] [address] MCHC 32.1 % Normal 30.5-36.0 [facility] Comment on above: Performed By: #### L AB294 ####Behavioral Assistant: ADITYA ESCALERA ([id number])[facility])[address] [place] [address] MCV (RBC) [Entitic vol] 89.8 fL Normal 77.0-99.0 [facility] Comment on above: Performed By: #### L AB294 ####Behavioral Assistant: ADITYA ESCALERA ([id number])[facility])[address] [place] [address] Platelet mean volume (Bld) [Entitic vol] 9.9 fL Normal 9.0-12.7 [facility] Comment on above: Performed By: #### L AB294 ####Behavioral Assistant: ADITYA ESCALERA ([id number])[facility])[address] [place] [address] Platelets (Bld) [#/Vol] 534 10*3/uL High 140-440 [facility] Comment on above: Performed By: #### L AB294 ####Behavioral Assistant: ADITYA ESCALERA ([id number])[facility])[address] [place] [address] RBC (Bld) [#/Vol] 3.43 10*6/uL Low 4.40-5.90 [facility] Comment on above: Performed By: #### L AB294 ####Behavioral Assistant: ADITYA ESCALERA ([phone])[facility])[address] [place] [address] WBC (Bld) [#/Vol] 9.1 10*3/uL Normal 3.6-10.7 [facility] Comment on above: Performed By: #### L AB294 ####Behavioral Assistant: ADITYA ESCALERA ([id number])[facility])[address] [place] [address] ECG 12-LEADon 02-03-2025 ECG 12-LEAD IMPRESSION: Sinus rhythm No previous ECG available for comparison Electronically Signed On 02-03-2025 15:06:39 EDT by Jun Jean Baptiste [facility] Progress Noteon 02-03-2025 Progress Note [facility] MIC[facility] Caceres : 1945 Primary Care Physician: MICHELET GOOD The patient and/or family/surrogate voluntarily agreed to participate in ACP services. Patient?s cognitive capacity: Patient is Alert and [place] to person, place and time Code Status: [x] [FULL CODE - Continue all advanced life support: CPR,intubation,invasive procedures] [_] [DNR-CCA - DO NOT do CPR, intubation] [_] [DNR-LEGAL PRACTICE MANAGER - Comfort care only] [_] DNR form [...] care, with patient and/or family/surrogate. Abdi Delcid, FURNITURE DESIGNER - ENDOSCOPY SPECIALTY TECHNICIAN [employer] [facility] [employer] 02/03/2025, 2:07 PM Normal [facility] Anion gap in Serum or Plasma Ordered By: Michelet Good on 02-02-2025 Anion gap [Moles/Vol] 16 mmol/L High 5-15 [facility] BUN/creatinine ratioOrdered By: Michelet Good on 02-02-2025 Urea nitrogen/Creatinine [Mass ratio] 17.5 mg/mg 10-20 [facility] Bilirubin, totalOrdered By: Michelet Good on 02-02-2025 Bilirubin [Mass/Vol] 0.22 mg/dL 0.00-1.30 [facility] Carbon dioxide, total [Moles /volume] in Central venous bloodOrdered By: Michelet Good on 02-02-2025 CO2 [Moles/Vol] 21.1 mmol/L 21.0-32.0 [facility] Chloride assayOrdered By: Carin Good on 02-02-2025 Chloride [Moles/Vol] 100 mmol/L 98-108 [facility] Comprehensive Metabolic Prof ilon 02-02-2025 Albumin [Mass/Vol] 3.9 g/dL Normal 3.4-4.8 [facility] Comment on above: Performed By: #### L 3130.0010, L506.1001, L509.1000, L3300.0960 #### [facility] [address] [place], [address] Albumin/Globulin [Mass ratio] 1.0 {ratio} Normal 0.9-2.4 [facility] Comment on above: Performed By: #### L 3130.0010, L506.1001, L509.1000, L3300.0960 #### [facility] [address] [place], [address] ALK PHOS 149 U/L High 40-129 [facility] Comment on above: Performed By: #### L 3130.0010, L506.1001, L509.1000, L3300.0960 #### [facility] [address] [place], [address] ALT [Catalytic activity/Vol] 30 U/L Normal <=46 [facility] Comment on above: Performed By: #### L 3130.0010, L506.1001, L509.1000, L3300.0960 #### [facility] [address] [place], [address] AST [Catalytic activity/Vol] 20 U/L Normal <=37 [facility] Comment on above: Performed By: #### L 3130.0010, L506.1001, L509.1000, L3300.0960 #### [facility] [address] [place], [address] Bilirubin [Mass/Vol] 0.22 mg/dL Normal 0.00-1.30 [facility] Comment on above: Performed By: #### L 3130.0010, L506.1001, L509.1000, L3300.0960 #### [facility] [address] [place], [address] BUN/CRE 17.5 RATIO Normal 10-20 [facility] Comment on above: Performed By: #### L 3130.0010, L506.1001, L509.1000, L3300.0960 #### [facility] [address] [place], [address] Calcium [Mass/Vol] 12.4 mg/dL High 7.6-11.0 [facility] Comment on above: Performed By: #### L 3130.0010, L506.1001, L509.1000, L3300.0960 #### [facility] [address] [place], [address] Chloride [Moles/Vol] 100 mmol/L Normal 98-108 [facility] Comment on above: Performed By: #### L 3130.0010, L506.1001, L509.1000, L3300.0960 #### [facility] [address] [place], [address] CO2 [Moles/Vol] 21.1 mmol/L Normal 21.0-32.0 [facility] Comment on above: Performed By: #### L 3130.0010, L506.1001, L509.1000, L3300.0960 #### [facility] [address] [place], [address] Creatinine [Mass/Vol] 3.08 mg/dL High 0.70-1.20 [facility] Comment on above: Performed By: #### L 3130.0010, L506.1001, L509.1000, L3300.0960 #### [facility] [address] [place], [address] GAP 16 High 5-15 [facility] Comment on above: Performed By: #### L 3130.0010, L506.1001, L509.1000, L3300.0960 #### [facility] [address] [place], [address] GFR/1.73 sq M.predicted among non-blacks MDRD (S/P/Bld) [Vol rate/Area] 20 mL/min/{1.73_m2} Low >60 [facility] Comment on above: Result Comment: mL/m in/1.73m2 CKD-EPI Creatinine Equation (2020) Performed By: #### L 3130.0010, L506.1001, L509.1000, L3300.0960 #### [facility] [address] [place], [address] Globulin (S) [Mass/Vol] 3.8 g/dL Normal 2.2-4.2 [facility] Comment on above: Performed By: #### L 3130.0010, L506.1001, L509.1000, L3300.0960 #### [facility] [address] [place], [address] Glucose [Mass/Vol] 111 mg/dL High 70-99 [facility] Comment on above: Performed By: #### L 3130.0010, L506.1001, L509.1000, L3300.0960 #### [facility] [address] [place], [address] Potassium [Moles/Vol] 4.5 mmol/L Normal 3.3-5.1 [facility] Comment on above: Performed By: #### L 3130.0010, L506.1001, L509.1000, L3300.0960 #### [facility] [address] [place], [address] Sodium [Moles/Vol] 136 mmol/L Normal 133-145 [facility] Comment on above: Performed By: #### L 3130.0010, L506.1001, L509.1000, L3300.0960 #### [facility] [address] [place], [address] T PROT 7.6 g/dL Normal 5.9-8.4 [facility] Comment on above: Performed By: #### L 3130.0010, L506.1001, L509.1000, L3300.0960 #### [facility] [address] [place], [address] Urea nitrogen [Mass/Vol] 54 mg/dL High 4-19 [facility] Comment on above: Performed By: #### L 3130.0010, L506.1001, L509.1000, L3300.0960 #### [facility] [address] [place], [address] Glomerular filtration rate ( GFR) estimation/1.73 sq m using serum, plasma, or whole bOrdered By: Michelet Good on 02-02-2025 GFR/1.73 sq M.predicted among non-blacks MDRD (S/P/Bld) [Vol rate/Area] 20 mL/min/{1.73_m2} Low >60 [facility] Comment on above: mL/min/1.73m2 CKD-EP I Creatinine Equation (2020) Laboratory - Chemistry and C hemistry - challengeOrdered By: Michelet Good on 02-02-2025 AST [Catalytic activity/Vol] 20 U/L <38 [facility] No Panel InformationOrdered By: Michelet Good on 02-02-2025 20 U/L <38 [facility] Potassium measurement (mass/ volume)Ordered By: Michelet Good on 02-02-2025 Potassium (Unsp spec) [Mass/Vol] 4.5 mmol/L 3.3-5.1 [facility] Serum creatinine measurement (mass/volume)Ordered By: Michelet Good on 02-02-2025 Creatinine [Mass/Vol] 3.08 mg/dL High 0.70-1.20 [facility] Serum globulin measurementOr dered By: Michelet Good on 02-02-2025 Globulin (S) [Mass/Vol] 3.8 g/dL 2.2-4.2 [facility] Serum glucose measurement (m ass/volume)Ordered By: Michelet Good on 02-02-2025 Glucose [Mass/Vol] 111 mg/dL High 70-99 [facility] [facility] Serum or plasma alanine keen otransferase (ALT) measurementOrdered By: Michelet Good on 02-02-2025 ALT [Catalytic activity/Vol] 30 U/L <47 [facility] Serum or plasma albumin emma urement (mass/volume)Ordered By: Michelet Good on 02-02-2025 Albumin [Mass/Vol] 3.9 g/dL 3.4-4.8 [facility] Serum or plasma albumin/glob ulin mass ratioOrdered By: Michelet Good on 02-02-2025 Albumin/Globulin [Mass ratio] 1.0 {ratio} 0.9-2.4 [facility] Serum or plasma alkaline david sphatase measurementOrdered By: Michelet Good on 02-02-2025 ALP [Catalytic activity/Vol] 149 U/L High 40-129 [facility] Serum or plasma calcium emma urement (mass/volume)Ordered By: Michelet Good on 02-02-2025 Calcium [Mass/Vol] 12.4 mg/dL High 7.6-11.0 [facility] Serum or plasma urea nitroge n measurement (mass/volume)Ordered By: Michelet Good on 02-02-2025 Urea nitrogen [Mass/Vol] 54 mg/dL High 4-19 [facility] Sodium levelOrdered By: Michelet Good on 02-02-2025 Sodium [Moles/Vol] 136 mmol/L 133-145 [facility] Total proteinOrdered By: Shakira Good on 02-02-2025 Protein [Mass/Vol] 7.6 g/dL 5.9-8.4 [facility] Pulmonary Visit Reporton Pulmonary Visit Report [facility] [place] [address] [place], [place] [address] [address] [place] [address] OFFICE VISIT Date of Service: 02/01/25 MR#: [id number] Acct: [id number] Name: ISABELJUJU TEMPLE Rep #: [id number] : 1945 Provider: Nanette Connolly NP Age/Sex: 79/M Location: [facility] Status: Signed Assessment and Plan Assessment and Plan (1) Lung mass: Status: Acute Plan: Lung mass was first identified on CT imaging completed through [facility] on December 21, 2024. That imaging study demonstrated a large mass in the prevascular mediastinal space with encroachment on the pulmonary arteries and an associated moderate pleural effusion. Due to Dr. Garcia's concern that he would not be able to reach this lesion bronchoscopically to perform biopsy, he referred to [facility] Cardiothoracic surgery where patient has been evaluated [...] symptoms. Plan This note was generated with [employer] dictation software. It may contain incorrect words, [...] room air Intake Visit Reasons: 1 M Grease Cup Filler Required: No DME Vendor: n.a Accompanied by: [...] unit) capsule (more content not included)... Normal [facility] 36on 01-21-2025 36 Ruchi from the PCP o mehulice called and the biopsy is no longer needed. He has Lymphoma and does not wish to go thru any surgeries. Normal [facility] Anion gap in Serum or Plasma Ordered By: Natalie Yen on 01-21-2025 Anion gap [Moles/Vol] 15 mmol/L 5-15 [facility] BUN/creatinine ratioOrdered By: Natalie Yen on 01-21-2025 Urea nitrogen/Creatinine [Mass ratio] 12.4 mg/mg 10-20 [facility] Carbon dioxide, total [Moles /volume] in Central venous bloodOrdered By: Natalie Yen on 01-21-2025 CO2 [Moles/Vol] 16.6 mmol/L Low 21.0-32.0 [facility] Chloride assayOrdered By: Julián Yen on 01-21-2025 Chloride [Moles/Vol] 109 mmol/L High 98-108 [facility] Cytology report of Body flui d Cyto stainOrdered By: Michelet Donovan on 01-21-2025 Cytology report Cyto stain Doc (Body fld) SEE PATHOLOGY REPORT [facility] Comment on above: Specimen submitted t o Anatomical Pathology Department for testing. Cytology, Body Fluid / CSFon 01-21-2025 CYTOLOGY,BF/CSF SEE PATHOLOGY REPORT Normal [facility] Comment on above: Order Comment: Order Date: 01/21/25Comments: Perform cytology on thoracentesis fluid on 01/21/25 Result Comment: Spec imen submitted to Anatomical Pathology Department for testing. Performed By: #### L 3130.0010, L506.1001, L509.1000, L3300.0960 #### [facility] Laboratory [address] [facility] [place], [address] Discharge Instructionon 01-01 Discharge Instruction [facility] Medical Records Department [address] [place] [address] Instructions for Home/Discharge Instructions 01/21/25 1203 MR#: [id number] Acct: [id number] Name: JUJU CACERES Rep #: [id number] : 1945 79 From: Michelet Donovan DO [...] can be placed): Home, Self Care 01/21/25 3607 Michelet Donovan DO CC: Dr. Harry Gutierrez MD; Dr. Michelet Good DO Signed Normal [facility] Glomerular filtration rate ( GFR) estimation/1.73 sq m using serum, plasma, or whole bOrdered By: Natalie Yen on 01-21-2025 GFR/1.73 sq M.predicted among non-blacks MDRD (S/P/Bld) [Vol rate/Area] 17 mL/min/{1.73_m2} Low >60 [facility] Comment on above: mL/min/1.73m2 CKD-EP I Creatinine Equation (2020) Potassium measurement (mass/ volume)Ordered By: Natalie Yen on 01-21-2025 Potassium (Unsp spec) [Mass/Vol] 3.7 mmol/L 3.3-5.1 [facility] Renal Profileon 01-21-2025 Albumin [Mass/Vol] 3.0 g/dL Low 3.4-4.8 [facility] Comment on above: Performed By: #### L 3130.0010, L506.1001, L509.1000, L3300.0960 #### [facility] [address] [place], [address] BUN/CRE 12.4 RATIO Normal 10-20 [facility] Comment on above: Performed By: #### L 3130.0010, L506.1001, L509.1000, L3300.0960 #### [facility] [address] [place], [address] Calcium [Mass/Vol] 10.9 mg/dL Normal 7.6-11.0 [facility] Comment on above: Performed By: #### L 3130.0010, L506.1001, L509.1000, L3300.0960 #### [facility] [address] [place], [address] Chloride [Moles/Vol] 109 mmol/L High 98-108 [facility] Comment on above: Performed By: #### L 3130.0010, L506.1001, L509.1000, L3300.0960 #### [facility] [address] [place], [address] CO2 [Moles/Vol] 16.6 mmol/L Low 21.0-32.0 [facility] Comment on above: Performed By: #### L 3130.0010, L506.1001, L509.1000, L3300.0960 #### [facility] [address] [place], [address] Creatinine [Mass/Vol] 3.40 mg/dL High 0.70-1.20 [facility] Comment on above: Performed By: #### L 3130.0010, L506.1001, L509.1000, L3300.0960 #### [facility] [address] [place], [address] ECRCL 15.38 ml/min Low 50-250 [facility] Comment on above: Performed By: #### L 3130.0010, L506.1001, L509.1000, L3300.0960 #### [facility] [address] [place], [address] GAP 15 Normal 5-15 [facility] Comment on above: Performed By: #### L 3130.0010, L506.1001, L509.1000, L3300.0960 #### [facility] [address] [place], [address] GFR/1.73 sq M.predicted among non-blacks MDRD (S/P/Bld) [Vol rate/Area] 17 mL/min/{1.73_m2} Low >60 [facility] Comment on above: Result Comment: mL/m in/1.73m2 CKD-EPI Creatinine Equation (2020) Performed By: #### L 3130.0010, L506.1001, L509.1000, L3300.0960 #### [facility] [address] [place], [address] Glucose [Mass/Vol] 98 mg/dL Normal 70-99 [facility] Comment on above: Performed By: #### L 3130.0010, L506.1001, L509.1000, L3300.0960 #### [facility] [address] [place], [address] Phosphate [Mass/Vol] 3.3 mg/dL Normal 2.7-4.5 [facility] Comment on above: Performed By: #### L 3130.0010, L506.1001, L509.1000, L3300.0960 #### [facility] [address] [place], [address] Potassium [Moles/Vol] 3.7 mmol/L Normal 3.3-5.1 [facility] Comment on above: Performed By: #### L 3130.0010, L506.1001, L509.1000, L3300.0960 #### [facility] [address] [place], [address] Sodium [Moles/Vol] 141 mmol/L Normal 133-145 [facility] Comment on above: Performed By: #### L 3130.0010, L506.1001, L509.1000, L3300.0960 #### [facility] [address] [place], [address] Urea nitrogen [Mass/Vol] 42 mg/dL High 09-18 [facility] Comment on above: Performed By: #### L 3130.0010, L506.1001, L509.1000, L3300.0960 #### [facility] [address] [place], [address] Serum creatinine measurement (mass/volume)Ordered By: Natalie Yen on 01-21-2025 Creatinine [Mass/Vol] 3.40 mg/dL High 0.70-1.20 [facility] Serum glucose measurement (m ass/volume)Ordered By: Natalie Yen on 01-21-2025 Glucose [Mass/Vol] 98 mg/dL 70-99 [facility] Serum or plasma albumin emma urement (mass/volume)Ordered By: Natalie Yen on 01-21-2025 Albumin [Mass/Vol] 3.0 g/dL Low 3.4-4.8 [facility] Serum or plasma calcium emma urement (mass/volume)Ordered By: Natalie Yen on 01-21-2025 Calcium [Mass/Vol] 10.9 mg/dL 7.6-11.0 [facility] Serum or plasma urea nitroge n measurement (mass/volume)Ordered By: Natalie Yen on 01-21-2025 Urea nitrogen [Mass/Vol] 42 mg/dL High 09-18 [facility] Sodium levelOrdered By: Dano Yen on 01-21-2025 Sodium [Moles/Vol] 141 mmol/L 133-145 [facility] Special Stain Group IIon Special Stain Group II -------- Patient Age/Sex Location Account Attending Physician JUJU CACERES 79/M MS3 [id number] Dr. Michelet Donovan DO Specimen: [id number] Received: 01/21/25 Status: LOUIE Hayes Num: [id number] Spec Type: Fluid Subm Dr: DO PAWEL [...] cytology and cell block preparation. 01/24/2025 CPT: 71953,45020 Signed (signature on file) Dr. Janice Gu MD 01/25/25 1718 Normal [facility] Comment on above: Performed By: #### L 3130.0010, L506.1001, L509.1000, L3300.0912 #### [facility] [address] [place], [address] Vitamin D 1,25-Dihydroxyon 0 01-21-2025 VIT D 1,25 DIHY 142.0 pg/mL Abnormal 24.8-81.5 [facility] Comment on above: Result Comment: Perf ormed at: - [address] [id number] Payroll Clerk: Tahir Malave MD, Phone: [phone] Performed By: #### L 3130.0010, L506.1001, L509.1000, L3300.0960 #### [facility] [address] [place], [place], [id number] Absolute lymphocyte countOrd ered By: Michelet Donovan on 01-20-2025 Lymphocytes Auto (Unsp spec) [#/Vol] 0.43 10*3/uL Low 0.83-4.51 [facility] Absolute neutrophil countOrd ered By: Michelet Donovan on 01-20-2025 Neutrophils (Bld) [#/Vol] 4.9 10*3/uL 2.0-7.7 [facility] Automated lymphocyte count a s percentage of total leukocytesOrdered By: Michelet Donovan on 01-20-2025 Lymphocytes/100 WBC Auto (Unsp spec) 6.7 % Low 19-41 [facility] Basic Metabolic Profile (BMP )on 01-20-2025 BUN/CRE 14.2 RATIO Normal 10-20 [facility] Comment on above: Performed By: #### M 100.2900, M100.4001, L001.0705, L504.0250, L200.0200, L350.1000, M100.1999, L503.0300 #### [facility] [address] [place], [address] Calcium [Mass/Vol] 10.9 mg/dL Normal 7.6-11.0 [facility] Comment on above: Performed By: #### M 100.2900, M100.4001, L001.0705, L504.0250, L200.0200, L350.1000, M100.1999, L503.0300 #### [facility] [address] [place], [address] Chloride [Moles/Vol] 110 mmol/L High 98-108 [facility] Comment on above: Performed By: #### M 100.2900, M100.4001, L001.0705, L504.0250, L200.0200, L350.1000, M100.2000, L503.0300 #### [facility] [address] [place], [address] CO2 [Moles/Vol] 18.8 mmol/L Low 21.0-32.0 [facility] Comment on above: Performed By: #### M 100.2900, M100.4001, L001.0705, L504.0250, L200.0200, L350.1000, M100.2000, L503.0300 #### [facility] [address] [place], [address] Creatinine [Mass/Vol] 3.54 mg/dL High 0.70-1.20 [facility] Comment on above: Performed By: #### M 100.2900, M100.4001, L001.0705, L504.0250, L200.0200, L350.1000, M100.2000, L503.0300 #### [facility] [address] [place], [address] ECRCL 14.77 ml/min Low 50-250 [facility] Comment on above: Performed By: #### M 100.2900, M100.4001, L001.0705, L504.0250, L200.0200, L350.1000, M100.2000, L503.0300 #### [facility] [address] [place], [address] GAP 12 Normal 5-15 [facility] Comment on above: Performed By: #### M 100.2900, M100.4001, L001.0705, L504.0250, L200.0200, L350.1000, M100.2000, L503.0300 #### [facility] [address] [place], [address] GFR/1.73 sq M.predicted among non-blacks MDRD (S/P/Bld) [Vol rate/Area] 17 mL/min/{1.73_m2} Low >60 [facility] Comment on above: Result Comment: mL/m in/1.73m2 CKD-EPI Creatinine Equation (2020) Performed By: #### M 100.2900, M100.4001, L001.0705, L504.0250, L200.0200, L350.1000, M100.2000, L503.0300 #### [facility] [address] [place], [address] Glucose [Mass/Vol] 89 mg/dL Normal 70-99 [facility] Comment on above: Performed By: #### M 100.2900, M100.4001, L001.0705, L504.0250, L200.0200, L350.1000, M100.1999, L503.0300 #### [facility] [address] [place], [address] Potassium [Moles/Vol] 4.0 mmol/L Normal 3.3-5.1 [facility] Comment on above: Performed By: #### M 100.2900, M100.4001, L001.0705, L504.0250, L200.0200, L350.1000, M100.1999, L503.0300 #### [facility] [address] [place], [address] Sodium [Moles/Vol] 141 mmol/L Normal 133-145 [facility] Comment on above: Performed By: #### M 100.2900, M100.4001, L001.0705, L504.0250, L200.0200, L350.1000, M100.1999, L503.0300 #### [facility] [address] [place], [address] Urea nitrogen [Mass/Vol] 50 mg/dL High 4-19 [facility] Comment on above: Performed By: #### M 100.2900, M100.4001, L001.0705, L504.0250, L200.0200, L350.1000, M100.1999, L503.0300 #### [facility] [address] [place], [address] Basophil percentageOrdered B y: Michelet Donovan on 01-20-2025 Basophils/100 WBC (Bld) 0.8 % 0-1 [facility] CBC W/Diff, Automatedon 01-01 Absolute Lymph 0.43 X10 3/uL Low 0.83-4.51 [facility] Comment on above: Performed By: #### M 100.2900, M100.4001, L001.0705, L504.0250, L200.0200, L350.1000, M100.2000, L503.0300 #### [facility] [address] [place], [address] Absolute Neut 4.9 X10 3/uL Normal 2.0-7.7 [facility] Comment on above: Performed By: #### M 100.2900, M100.4001, L001.0705, L504.0250, L200.0200, L350.1000, M100.2000, L503.0300 #### [facility] [address] [place], [address] Basophils/100 WBC (Bld) 0.8 % Normal 0-1 [facility] Comment on above: Performed By: #### M 100.2900, M100.4001, L001.0705, L504.0250, L200.0200, L350.1000, M100.2000, L503.0300 #### [facility] [address] [place], [address] Eosinophils/100 WBC (Bld) 4.4 % Normal 0-5 [facility] Comment on above: Performed By: #### M 100.2900, M100.4001, L001.0705, L504.0250, L200.0200, L350.1000, M100.2000, L503.0300 #### [facility] [address] [place], [address] Erythrocyte distribution width (RBC) [Ratio] 13.3 % Normal 11.6-14.6 [facility] Comment on above: Performed By: #### M 100.2900, M100.4001, L001.0705, L504.0250, L200.0200, L350.1000, M100.2000, L503.0300 #### [facility] [address] [place], [address] Hematocrit (Bld) [Volume fraction] 25.6 % Low 40-54 [facility] Comment on above: Performed By: #### M 100.2900, M100.4001, L001.0705, L504.0250, L200.0200, L350.1000, M100.2000, L503.0300 #### [facility] [address] [place], [address] Hemoglobin (Bld) [Mass/Vol] 8.2 g/dL Low 13.0-16.5 [facility] Comment on above: Performed By: #### M 100.2900, M100.4001, L001.0705, L504.0250, L200.0200, L350.1000, M100.2000, L503.0300 #### [facility] [address] [place], [address] IG% 0.600 Normal 0.0-0.9 [facility] Comment on above: Result Comment: IG% - Immature Granulocytes (promyelocytes, myelocytes and metamyelocytes) > 1% indicates that a LEFT SHIFT is Present. Performed By: #### M 100.2900, M100.4001, L001.0705, L504.0250, L200.0200, L350.1000, M100.2000, L503.0300 #### [facility] [address] [place], [address] Lymphocytes/100 WBC (Bld) 6.7 % Low 19-41 [facility] Comment on above: Performed By: #### M 100.2900, M100.4001, L001.0705, L504.0250, L200.0200, L350.1000, M100.2000, L503.0300 #### [facility] [address] [place], [address] MCH (RBC) [Entitic mass] 29.1 pg Normal 27.0-32.0 [facility] Comment on above: Performed By: #### M 100.2900, M100.4001, L001.0705, L504.0250, L200.0200, L350.1000, M100.2000, L503.0300 #### [facility] [address] [place], [address] MCHC (RBC) [Mass/Vol] 32.0 g/dL Normal 32-36 [facility] Comment on above: Performed By: #### M 100.2900, M100.4001, L001.0705, L504.0250, L200.0200, L350.1000, M100.1999, L503.0300 #### [facility] [address] [place], [address] MCV (RBC) [Entitic vol] 90.8 fL Normal 80-94 [facility] Comment on above: Performed By: #### M 100.2900, M100.4001, L001.0705, L504.0250, L200.0200, L350.1000, M100.2000, L503.0300 #### [facility] [address], [address] Monocytes/100 WBC (Bld) 11.5 % High 0-10 [facility] Comment on above: Performed By: #### M 100.2900, M100.4001, L001.0705, L504.0250, L200.0200, L350.1000, M100.2000, L503.0300 #### [facility] [address] [place], [address] Neutrophils/100 WBC (Bld) 76.0 % High 47-70 [facility] Comment on above: Performed By: #### M 100.2900, M100.4001, L001.0705, L504.0250, L200.0200, L350.1000, M100.2000, L503.0300 #### [facility] [address] [place], [address] Nucleated RBC (Bld) [#/Vol] 0 10*3/uL Normal 0-5 [facility] Comment on above: Performed By: #### M 100.2900, M100.4001, L001.0705, L504.0250, L200.0200, L350.1000, M100.2000, L503.0300 #### [facility] [address] [place], [address] Platelet mean volume (Bld) [Entitic vol] 9.6 fL Normal 6.2-12.0 [facility] Comment on above: Performed By: #### M 100.2900, M100.4001, L001.0705, L504.0250, L200.0200, L350.1000, M100.2000, L503.0300 #### [facility] [address] [place], [address] Platelets (Bld) [#/Vol] 287 10*3/uL Normal 150-450 [facility] Comment on above: Performed By: #### M 100.2900, M100.4001, L001.0705, L504.0250, L200.0200, L350.1000, M100.2000, L503.0300 #### [facility] [address] [place], [address] RBC (Bld) [#/Vol] 2.82 10*6/uL Low 4.6-6.2 [facility] Comment on above: Performed By: #### M 100.2900, M100.4001, L001.0705, L504.0250, L200.0200, L350.1000, M100.2000, L503.0300 #### [facility] [address] [place], [address] RDW SD 44.0 fl High 35.1-43.9 [facility] Comment on above: Performed By: #### M 100.2900, M100.4001, L001.0705, L504.0250, L200.0200, L350.1000, M100.2000, L503.0300 #### [facility] [address] [facility] [place], [address] WBC (Bld) [#/Vol] 6.4 10*3/uL Normal 4.4-11.0 [facility] Comment on above: Performed By: #### M 100.2900, M100.4001, L001.0705, L504.0250, L200.0200, L350.1000, M100.2000, L503.0300 #### [facility] [address] [place], [address] Eosinophil percentageOrdered By: Mcihelet Donovan on 01-20-2025 Eosinophils/100 WBC (Bld) 4.4 % 0-5 [facility] Erythrocyte distribution wid th ratioOrdered By: Michelet Donovan on 01-20-2025 Erythrocyte distribution width (RBC) [Ratio] 13.3 % 11.6-14.6 [facility] Erythrocyte distribution wid th standard deviationOrdered By: Michelet Donovan on 01-20-2025 Erythrocyte distribution width (RBC) [Ratio] 44.0 fl High 35.1-43.9 [facility] Hematocrit Auto (Bld) [Volum e fraction]Ordered By: Michelet Donovan on 01-20-2025 Hematocrit (Bld) [Volume fraction] 25.6 % Low 40-54 [facility] Hemoglobin measurementOrdere d By: Michelet Donovan on 01-20-2025 Hemoglobin (Bld) [Mass/Vol] 8.2 g/dL Low 13.0-16.5 [facility] Immature granulocytes/100 WB C Auto (Bld)Ordered By: Michelet Donovan on 01-20-2025 Immature granulocytes/100 WBC (Bld) 0.600 % 0.0-0.9 [facility] Comment on above: IG% - Immature Granu locytes (promyelocytes, myelocytes and metamyelocytes) > 1% indicates that a LEFT SHIFT is Present. MCV (mean corpuscular volume ) determinationOrdered By: Michelet Donovan on 01-20-2025 MCV (RBC) [Entitic vol] 90.8 fL 80-94 [facility] Mean corpuscular hemoglobin (MCH) determinationOrdered By: Michelet Donovan on 01-20-2025 MCH (RBC) [Entitic mass] 29.1 pg 27.0-32.0 [facility] Mean corpuscular hemoglobin concentration (MCHC) determinationOrdered By: Michelet Donovan on 01-20-2025 MCHC (RBC) [Mass/Vol] 32.0 g/dL 32-36 [facility] Mean platelet volume determi nationOrdered By: Michelet Donovan on 01-20-2025 Platelet mean volume (Bld) [Entitic vol] 9.6 fL 6.2-12.0 [facility] Monocyte percentageOrdered B y: Michelet Donovan on 01-20-2025 Monocytes/100 WBC (Bld) 11.5 % High 0-10 [facility] Neutrophil percentageOrdered By: Michelet Donovan on 01-20-2025 Neutrophils/100 WBC (Bld) 76.0 % High 47-70 [facility] Nucleated red blood cell per centageOrdered By: Michelet Donovan on 01-20-2025 Nucleated RBC/100 WBC (Bld) [Ratio] 0 % 0-5 [facility] Platelet countOrdered By: Carin Donovan on 01-20-2025 Platelets (Bld) [#/Vol] 287 10*3/uL 150-450 [facility] RBC Auto (Bld) [#/Vol]Ordere d By: Michelet Donovan on 01-20-2025 RBC (Bld) [#/Vol] 2.82 10*6/uL Low 4.6-6.2 [facility] Thoracentesis W on 025 Thoracentesis W [facility] [address] [place] [address] Thoracentesis W MR#: [id number] Acct: [id number] Name: ISABEL,JUJU JOVANNY Rep #: [id number] : 1945 M 79 From: Rodney Gavin PCP: Dr. Michelet Good DO Status: ADM IN Study: Thoracentesis W US Date of Exam: 01/20/25 Exam# [id number] Ordering Dr: Michelet Donovan DO PROCEDURE: THORACENTESIS W US 01/21/2025 REASON FOR EXAM: LEFT PLEURAL EFFUSION TECHNIQUE: Diagnostic and therapeutic left THORACENTESIS W US COMPARISON: Abdomen and pelvis CT 01/18/2025. FINDINGS: Procedure: Following informed consent, and using standard sterile technique, an ultrasound-guided left thoracentesis was performed. 2% lidocaine local anesthesia was followed by placement of a 5 [place] catheter into the left pleural effusion. Approximately 1990 clear yellow fluid was successfully removed. No complication was encountered, in the patient left the department in good condition without significant complaint. US/Thoracentesis W US IMPRESSION: Successful diagnostic and therapeutic ultrasound-guided left thoracentesis. Laboratory results pending. Reading Location: [place] [address] CC: Dr. Michelet Good DO; Dr. Michelet Donovan DO City Planning Teacher: Signed Normal [facility] White blood cell (WBC) count Ordered By: Michelet Donovan on 01-20-2025 WBC (Bld) [#/Vol] 6.4 10*3/uL 4.4-11.0 [facility] Albumin, Serumon 01-19-2025 Albumin [Mass/Vol] 3.0 g/dL Low 3.4-4.8 [facility] Comment on above: Performed By: #### M 100.2900, M100.4001, L001.0705, L504.0250, L200.0200, L350.1000, M100.2000, L503.0300 #### [facility] [address] [place], [place], [id number] Basic Metabolic Profile (BMP )on 01-19-2025 BUN/CRE 14.2 RATIO Normal - [facility] Comment on above: Performed By: #### M 100.2900, M100.4001, L001.0705, L504.0250, L200.0200, L350.1000, M100.1999, L503.0300 #### [facility] [address] [place], [address] Calcium [Mass/Vol] 11.8 mg/dL High 7.6-11.0 [facility] Comment on above: Performed By: #### M 100.2900, M100.4001, L001.0705, L504.0250, L200.0200, L350.1000, M100.1999, L503.0300 #### [facility] [address] [place], [address] Chloride [Moles/Vol] 108 mmol/L Normal 98-108 [facility] Comment on above: Performed By: #### M 100.2900, M100.4001, L001.0705, L504.0250, L200.0200, L350.1000, , L503.0300 #### [facility] [address] [place], [address] CO2 [Moles/Vol] 19.6 mmol/L Low 21.0-32.0 [facility] Comment on above: Performed By: #### M 100.2900, M100.4001, L001.0705, L504.0250, L200.0200, L350.1000, .1999, L503.0300 #### [facility] [address] [place], [address] Creatinine [Mass/Vol] 3.51 mg/dL High 0.70-1.20 [facility] Comment on above: Performed By: #### M 100.2900, M100.4001, L001.0705, L504.0250, L200.0200, L350.1000, M100.2000, L503.0300 #### [facility] [address] [place], [address] ECRCL 14.89 ml/min Low 50-250 [facility] Comment on above: Performed By: #### M 100.2900, M100.4001, L001.0705, L504.0250, L200.0200, L350.1000, M100.2000, L503.0300 #### [facility] [address] [place], [address] GAP 13 Normal 5-15 [facility] Comment on above: Performed By: #### M 100.2900, M100.4001, L001.0705, L504.0250, L200.0200, L350.1000, M100.2000, L503.0300 #### [facility] [address] [place], [address] GFR/1.73 sq M.predicted among non-blacks MDRD (S/P/Bld) [Vol rate/Area] 17 mL/min/{1.73_m2} Low >60 [facility] Comment on above: Result Comment: mL/m in/1.73m2 CKD-EPI Creatinine Equation (2020) Performed By: #### M 100.2900, M100.4001, L001.0705, L504.0250, L200.0200, L350.1000, M100.2000, L503.0300 #### [facility] [address] [place], [address] Glucose [Mass/Vol] 80 mg/dL Normal 70-99 [facility] Comment on above: Performed By: #### M 100.2900, M100.4001, L001.0705, L504.0250, L200.0200, L350.1000, M100.2000, L503.0300 #### [facility] [address] [place], [address] Potassium [Moles/Vol] 4.2 mmol/L Normal 3.3-5.1 [facility] Comment on above: Performed By: #### M 100.2900, M100.4001, L001.0705, L504.0250, L200.0200, L350.1000, M100.1999, L503.0300 #### [facility] [address] [place], [address] Sodium [Moles/Vol] 141 mmol/L Normal 133-145 [facility] Comment on above: Performed By: #### M 100.2900, M100.4001, L001.0705, L504.0250, L200.0200, L350.1000, M100.1999, L503.0300 #### [facility] [address] [place], [address] Urea nitrogen [Mass/Vol] 50 mg/dL High 4-19 [facility] Comment on above: Performed By: #### M 100.2900, M100.4001, L001.0705, L504.0250, L200.0200, L350.1000, M1.1999, L503.0300 #### [facility] [address] [place], [address] CBC W/Diff, Automatedon 08-2 0-2024 Absolute Lymph 0.40 X10 3/uL Low 0.83-4.51 [facility] Comment on above: Performed By: #### M 100.2900, M100.4001, L001.0705, L504.0250, L200.0200, L350.1000, M100.1999, L503.0300 #### [facility] [address] [place], [address] Absolute Neut 4.7 X10 3/uL Normal 2.0-7.7 [facility] Comment on above: Performed By: #### M 100.2900, M100.4001, L001.0705, L504.0250, L200.0200, L350.1000, M100.1999, L503.0300 #### [facility] [address] [place], [address] Basophils/100 WBC (Bld) 0.5 % Normal 0-1 [facility] Comment on above: Performed By: #### M 100.2900, M100.4001, L001.0705, L504.0250, L200.0200, L350.1000, M100.2000, L503.0300 #### [facility] [address] [place], [address] Eosinophils/100 WBC (Bld) 4.3 % Normal 0-5 [facility] Comment on above: Performed By: #### M 100.2900, M100.4001, L001.0705, L504.0250, L200.0200, L350.1000, M100.2000, L503.0300 #### [facility] [address] [place], [address] Erythrocyte distribution width (RBC) [Ratio] 13.2 % Normal 11.6-14.6 [facility] Comment on above: Performed By: #### M 100.2900, M100.4001, L001.0705, L504.0250, L200.0200, L350.1000, M100.2000, L503.0300 #### [facility] [address] [place], [address] Hematocrit (Bld) [Volume fraction] 25.6 % Low 40-54 [facility] Comment on above: Performed By: #### M 100.2900, M100.4001, L001.0705, L504.0250, L200.0200, L350.1000, M100.2000, L503.0300 #### [facility] [address] [place], [address] Hemoglobin (Bld) [Mass/Vol] 8.3 g/dL Low 13.0-16.5 [facility] Comment on above: Performed By: #### M 100.2900, M100.4001, L001.0705, L504.0250, L200.0200, L350.1000, M100.2000, L503.0300 #### [facility] [address] [place], [address] IG% 0.300 Normal 0.0-0.9 [facility] Comment on above: Result Comment: IG% - Immature Granulocytes (promyelocytes, myelocytes and metamyelocytes) > 1% indicates that a LEFT SHIFT is Present. Performed By: #### M 100.2900, M100.4001, L001.0705, L504.0250, L200.0200, L350.1000, M100.2000, L503.0300 #### [facility] [address] [facility] [place], [address] Lymphocytes/100 WBC (Bld) 6.6 % Low 19-41 [facility] Comment on above: Performed By: #### M 100.2900, M100.4001, L001.0705, L504.0250, L200.0200, L350.1000, M100.2000, L503.0300 #### [facility] [address] [facility] [place], [address] MCH (RBC) [Entitic mass] 29.4 pg Normal 27.0-32.0 [facility] Comment on above: Performed By: #### M 100.2900, M100.4001, L001.0705, L504.0250, L200.0200, L350.1000, M100.2000, L503.0300 #### [facility] [address] [facility] [place], [address] MCHC (RBC) [Mass/Vol] 32.4 g/dL Normal 32-36 [facility] Comment on above: Performed By: #### M 100.2900, M100.4001, L001.0705, L504.0250, L200.0200, L350.1000, M100.2000, L503.0300 #### [facility] [address] [place], [address] MCV (RBC) [Entitic vol] 90.8 fL Normal 80-94 [facility] Comment on above: Performed By: #### M 100.2900, M100.4001, L001.0705, L504.0250, L200.0200, L350.1000, M100.1999, L503.0300 #### [facility] [address] [place], [address] Monocytes/100 WBC (Bld) 10.8 % High 0-10 [facility] Comment on above: Performed By: #### M 100.2900, M100.4001, L001.0705, L504.0250, L200.0200, L350.1000, M100.1999, L503.0300 #### [facility] [address] [place], [address] Neutrophils/100 WBC (Bld) 77.5 % High 47-70 [facility] Comment on above: Performed By: #### M 100.2900, M100.4001, L001.0705, L504.0250, L200.0200, L350.1000, M100.2000, L503.0300 #### [facility] [address] [place], [address] Nucleated RBC (Bld) [#/Vol] 0 10*3/uL Normal 0-5 [facility] Comment on above: Performed By: #### M 100.2900, M100.4001, L001.0705, L504.0250, L200.0200, L350.1000, M100.1999, L503.0300 #### [facility] [address] [place], [address] Platelet mean volume (Bld) [Entitic vol] 10.2 fL Normal 6.2-12.0 [facility] Comment on above: Performed By: #### M 100.2900, M100.4001, L001.0705, L504.0250, L200.0200, L350.1000, M100.2000, L503.0300 #### [facility] [address], [address] Platelets (Bld) [#/Vol] 313 10*3/uL Normal 150-450 [facility] Comment on above: Performed By: #### M 100.2900, M100.4001, L001.0705, L504.0250, L200.0200, L350.1000, M100.2000, L503.0300 #### [facility] [address] [place], [address] RBC (Bld) [#/Vol] 2.82 10*6/uL Low 4.6-6.2 [facility] Comment on above: Performed By: #### M 100.2900, M100.4001, L001.0705, L504.0250, L200.0200, L350.1000, M100.2000, L503.0300 #### [facility] [address], [address] RDW SD 44.0 fl High 35.1-43.9 [facility] Comment on above: Performed By: #### M 100.2900, M100.4001, L001.0705, L504.0250, L200.0200, L350.1000, M100.2000, L503.0300 #### [facility] [address] [place], [address] WBC (Bld) [#/Vol] 6.0 10*3/uL Normal 4.4-11.0 [facility] Comment on above: Performed By: #### M 100.2900, M100.4001, L001.0705, L504.0250, L200.0200, L350.1000, M100.2000, L503.0300 #### [facility] [address] [place], [address] Electrocardiogram reportOrde red By: Misael Gutiérrez on 01-19-2025 EKG study [facility] [address] [place] [address] 12 Lead EKG 01/18/25 0526 MR#: [id number] Acct: [id number] Name: JUJU CACERES Rep #:[id number] : 1945 79 From: Misael Gutiérrez MD Attending Dr: Dr. Michelet Donovan DO Status: ADM IN Ordering Dr: Kenrick Ott DO Date: 01/18/25 [place] [facility] [place] M C Admitted: 01/18/25 Test Reason [...] Abnormal ECG Confirmed by DAVON MCGOVERN, MISAEL ([id number]), editor managing director KIANNA ORTEGA ([id number]) on 01/19/2025 9:35:56 AM Referred By: ES Confirmed By: MISAEL GUTIÉRREZ MD 01/19/25 0936 Date _ Misael Gutiérrez MD CC: Dr. Kenrick Ott, ; Dr. Michelet Good, ; Dr. Michelet Donovan, ~ Signed [facility] Other Phone: [employer] Chainson 01-19-2025 FR KAPPA LT CHN 37.6 mg/L Abnormal 3.3-19.4 [facility] Comment on above: Performed By: #### L 3130.0010, L506.1001, L509.1000, L3300.0960 #### [facility] [address] [place], [place], [id number] FR LAMBDA LT CH 47.6 mg/L Abnormal 5.7-26.3 [facility] Comment on above: Performed By: #### L 3130.0010, L506.1001, L509.1000, L3300.0960 #### [facility] [address] [place], [place], [id number] KAPPA/LAMBDA % 0.79 Normal 0.26-1.65 [facility] Comment on above: Result Comment: Perf ormed at: CB - [facility] [address] [id number] Payroll Clerk: Torito Green PhD, Phone: [phone] Performed By: #### L 3130.0010, L506.1001, L509.1000, L3300.0960 #### [facility] [address] [place], [place], [id number] 12 Lead EKGon 01-18-2025 12 Lead EKG [facility] [address] [place] [address] 12 Lead EKG 01/18/25 0526 MR#: [id number] Acct: [id number] Name: JUJU CACERES Rep #: [id number] : 1945 79 From: Misael Gutiérrez MD Attending Dr: Dr. Michelet Donovan DO Status: A DM IN Ordering Dr: Kenrick Ott DO Date: 01/18/25 Location: [place] Sex: M C Admitted: 01/18/25 Test Reason [...] ECG Confirmed by MISAEL GUTIÉRREZ MD ([id number]), editor managing director KIANNA ORTEGA ([id number]) on 01/19/2025 9:35:56 AM Referred By: ES Confirmed By: MISAEL GUTIÉRREZ MD 01/19/25 0936 Date Misael Gutiérrez MD CC: Dr. Kenrick Ott DO; Dr. Michelet Good DO; Dr. Michelet Donovan DO Signed Normal [facility] Abdomen/Pelvis without Conto n 01-18-2025 Abdomen/Pelvis without Cont [facility] Imaging Services [address] [place], [place] [address] Abdomen/Pelvis without Cont MR#: [id number] Acct: [id number] Name: JUJU CACERES Rep #: [id number] : 1945 M 79 From: Nigel schneider MD PCP: Dr. Michelet Good DO Status: ADM IN Study: Abdomen/Pelvis without Cont Date of Exam: 12/31 02/24 Exam# [id number] Ordering Dr: Michelet Donovan DO PROCEDURE: ABDOMEN/PELVIS [...] the right hemipelvis as described. Reading Location: [id number] CC: Dr. Michelet Good, ; Dr. Michelet Donovan, City Planning Teacher: Signed Normal [facility] Absolute lymphocyte countOrd ered By: Kenrick Ott on 01-18-2025 Lymphocytes Auto (Unsp spec) [#/Vol] 0.89 10*3/uL 0.83-4.51 [facility] Absolute neutrophil countOrd ered By: Kenrick Ott on 01-18-2025 Neutrophils (Bld) [#/Vol] 5.7 10*3/uL 2.0-7.7 [facility] Anion gap in Serum or Plasma Ordered By: Kenrick Ott on 01-18-2025 Anion gap [Moles/Vol] 15 mmol/L 5-15 [facility] Automated lymphocyte count a s percentage of total leukocytesOrdered By: Kenrick Ott on 01-18-2025 Lymphocytes/100 WBC Auto (Unsp spec) 11.1 % Low 19- [facility] BUN/creatinine ratioOrdered By: Kenrick Ott on 01-18-2025 Urea nitrogen/Creatinine [Mass ratio] 13.6 mg/mg - [facility] Basic Metabolic Profile (BMP )on 01-18-2025 BUN/CRE 13.6 RATIO Normal - [facility] Comment on above: Performed By: #### M 100.2900, M100.4001, L001.0705, L504.0250, L200.0200, L350.1000, M100.1999, L503.0300 #### [facility] [address] [place], [address] Calcium [Mass/Vol] 13.6 mg/dL Invalid Interpretation Code 7.6-11.0 [facility] Comment on above: Result Comment: Crit ical Result(s) Called at: 0632 by: YENI HAVEN TO EDDIE MATHUR??Results read back by same. Performed By: #### M 100.2900, M100.4001, L001.0705, L504.0250, L200.0200, L350.1000, M100.1999, L503.0300 #### [facility] [address] [place], [address] Chloride [Moles/Vol] 101 mmol/L Normal 98-108 [facility] Comment on above: Performed By: #### M 100.2900, M100.4001, L001.0705, L504.0250, L200.0200, L350.1000, M100.1999, L503.0300 #### [facility] [address] [place], [address] CO2 [Moles/Vol] 21.7 mmol/L Normal 21.0-32.0 [facility] Comment on above: Performed By: #### M 100.2900, M100.4001, L001.0705, L504.0250, L200.0200, L350.1000, M100.2000, L503.0300 #### [facility] [address] [place], [address] Creatinine [Mass/Vol] 3.72 mg/dL High 0.70-1.20 [facility] Comment on above: Performed By: #### M 100.2900, M100.4001, L001.0705, L504.0250, L200.0200, L350.1000, M100.1999, L503.0300 #### [facility] [address] [place], [address] ECRCL 14.05 ml/min Low 50-250 [facility] Comment on above: Performed By: #### M 100.2900, M100.4001, L001.0705, L504.0250, L200.0200, L350.1000, M100.2000, L503.0300 #### [facility] [address] [place], [address] GAP 15 Normal 5-15 [facility] Comment on above: Performed By: #### M 100.2900, M100.4001, L001.0705, L504.0250, L200.0200, L350.1000, M100.2000, L503.0300 #### [facility] [address] [place], [address] GFR/1.73 sq M.predicted among non-blacks MDRD (S/P/Bld) [Vol rate/Area] 16 mL/min/{1.73_m2} Low >60 [facility] Comment on above: Result Comment: mL/m in/1.73m2 CKD-EPI Creatinine Equation (2020) Performed By: #### M 100.2900, M100.4001, L001.0705, L504.0250, L200.0200, L350.1000, M100.2000, L503.0300 #### [facility] [address] [place], [address] Glucose [Mass/Vol] 98 mg/dL Normal 70-99 [facility] Comment on above: Performed By: #### M 100.2900, M100.4001, L001.0705, L504.0250, L200.0200, L350.1000, M100.2000, L503.0300 #### [facility] [address] [place], [address] Potassium [Moles/Vol] 4.0 mmol/L Normal 3.3-5.1 [facility] Comment on above: Performed By: #### M 100.2900, M100.4001, L001.0705, L504.0250, L200.0200, L350.1000, M100.2000, L503.0300 #### [facility] [address] [place], [address] Sodium [Moles/Vol] 139 mmol/L Normal 133-145 [facility] Comment on above: Performed By: #### M 100.2900, M100.4001, L001.0705, L504.0250, L200.0200, L350.1000, M100.2000, L503.0300 #### [facility] [address] [place], [address] Urea nitrogen [Mass/Vol] 51 mg/dL High 09-18 [facility] Comment on above: Performed By: #### M 100.2900, M100.4001, L001.0705, L504.0250, L200.0200, L350.1000, M100.2000, L503.0300 #### [facility] [address] [place], [address] Basophil percentageOrdered B y: Kenrick Ott on 01-18-2025 Basophils/100 WBC (Bld) 0.9 % 0-1 [facility] Bilirubin Test strip Ql (U)O rdered By: Natalie Yen on 01-18-2025 Bilirubin Ql (U) Negative Negative [facility] CBC W/Diff, Automatedon 12-31 Absolute Lymph 0.89 X10 3/uL Normal 0.83-4.51 [facility] Comment on above: Performed By: #### M 100.2900, M100.4001, L001.0705, L504.0250, L200.0200, L350.1000, M100.2000, L503.0300 #### [facility] [address] [place], [address] Absolute Neut 5.7 X10 3/uL Normal 2.0-7.7 [facility] Comment on above: Performed By: #### M 100.2900, M100.4001, L001.0705, L504.0250, L200.0200, L350.1000, M100.2000, L503.0300 #### [facility] [address] [place], [address] Basophils/100 WBC (Bld) 0.9 % Normal 0-1 [facility] Comment on above: Performed By: #### M 100.2900, M100.4001, L001.0705, L504.0250, L200.0200, L350.1000, M100.2000, L503.0300 #### [facility] [address] [place], [address] Eosinophils/100 WBC (Bld) 4.7 % Normal 0-5 [facility] Comment on above: Performed By: #### M 100.2900, M100.4001, L001.0705, L504.0250, L200.0200, L350.1000, M100.2000, L503.0300 #### [facility] [address] [place], [address] Erythrocyte distribution width (RBC) [Ratio] 13.2 % Normal 11.6-14.6 [facility] Comment on above: Performed By: #### M 100.2900, M100.4001, L001.0705, L504.0250, L200.0200, L350.1000, M100.2000, L503.0300 #### [facility] [address] [place], [address] Hematocrit (Bld) [Volume fraction] 30.8 % Low 40-54 [facility] Comment on above: Performed By: #### M 100.2900, M100.4001, L001.0705, L504.0250, L200.0200, L350.1000, M100.2000, L503.0300 #### [facility] [address] [place], [address] Hemoglobin (Bld) [Mass/Vol] 10.2 g/dL Low 13.0-16.5 [facility] Comment on above: Performed By: #### M 100.2900, M100.4001, L001.0705, L504.0250, L200.0200, L350.1000, M100.2000, L503.0300 #### [facility] [address] [place], [address] IG% 0.200 Normal 0.0-0.9 [facility] Comment on above: Result Comment: IG% - Immature Granulocytes (promyelocytes, myelocytes and metamyelocytes) > 1% indicates that a LEFT SHIFT is Present. Performed By: #### M 100.2900, M100.4001, L001.0705, L504.0250, L200.0200, L350.1000, M100.2000, L503.0300 #### [facility] [address] [place], [address] Lymphocytes/100 WBC (Bld) 11.1 % Low 19-41 [facility] Comment on above: Performed By: #### M 100.2900, M100.4001, L001.0705, L504.0250, L200.0200, L350.1000, M100.2000, L503.0300 #### [facility] [address] [place], [address] MCH (RBC) [Entitic mass] 29.1 pg Normal 27.0-32.0 [facility] Comment on above: Performed By: #### M 100.2900, M100.4001, L001.0705, L504.0250, L200.0200, L350.1000, M100.2000, L503.0300 #### [facility] [address] [place], [address] MCHC (RBC) [Mass/Vol] 33.1 g/dL Normal 32-36 [facility] Comment on above: Performed By: #### M 100.2900, M100.4001, L001.0705, L504.0250, L200.0200, L350.1000, M100.2000, L503.0300 #### [facility] [address] [place], [address] MCV (RBC) [Entitic vol] 88.0 fL Normal 80-94 [facility] Comment on above: Performed By: #### M 100.2900, M100.4001, L001.0705, L504.0250, L200.0200, L350.1000, M100.2000, L503.0300 #### [facility] [address] [place], [address] Monocytes/100 WBC (Bld) 12.3 % High 0-10 [facility] Comment on above: Performed By: #### M 100.2900, M100.4001, L001.0705, L504.0250, L200.0200, L350.1000, M100.2000, L503.0300 #### [facility] [address] [place], [address] Neutrophils/100 WBC (Bld) 70.8 % High 47-70 [facility] Comment on above: Performed By: #### M 100.2900, M100.4001, L001.0705, L504.0250, L200.0200, L350.1000, M100.2000, L503.0300 #### [facility] [address] [place], [address] Nucleated RBC (Bld) [#/Vol] 0 10*3/uL Normal 0-5 [facility] Comment on above: Performed By: #### M 100.2900, M100.4001, L001.0705, L504.0250, L200.0200, L350.1000, M100.2000, L503.0300 #### [facility] [address] [place], [address] Platelet mean volume (Bld) [Entitic vol] 10.2 fL Normal 6.2-12.0 [facility] Comment on above: Performed By: #### M 100.2900, M100.4001, L001.0705, L504.0250, L200.0200, L350.1000, M100.1999, L503.0300 #### [facility] [address] [place], [address] Platelets (Bld) [#/Vol] 380 10*3/uL Normal 150-450 [facility] Comment on above: Performed By: #### M 100.2900, M100.4001, L001.0705, L504.0250, L200.0200, L350.1000, M100.1999, L503.0300 #### [facility] [address] [place], [address] RBC (Bld) [#/Vol] 3.50 10*6/uL Low 4.6-6.2 [facility] Comment on above: Performed By: #### M 100.2900, M100.4001, L001.0705, L504.0250, L200.0200, L350.1000, M100.2000, L503.0300 #### [facility] [address] [place], [address] RDW SD 42.5 fl Normal 35.1-43.9 [facility] Comment on above: Performed By: #### M 100.2900, M100.4001, L001.0705, L504.0250, L200.0200, L350.1000, M100.2000, L503.0300 #### [facility] [address] [place], [address] WBC (Bld) [#/Vol] 8.0 10*3/uL Normal 4.4-11.0 [facility] Comment on above: Performed By: #### M 100.2900, M100.4001, L001.0705, L504.0250, L200.0200, L350.1000, M100.2000, L503.0300 #### [facility] [address] [facility] [place], [address] Carbon dioxide, total [Moles /volume] in Central venous bloodOrdered By: Kenrick Ott on 01-18-2025 CO2 [Moles/Vol] 21.7 mmol/L 21.0-32.0 [facility] Chest PA and Lateralon 01-18 Chest PA and Lateral [facility] Imaging Services [address] [place] [address] Chest PA and Lateral MR#: [id number] Acct: [id number] Name: JUJU CACERES Rep #: [id number] : 1945 M 79 From: Santi De La Rosa MD PCP: Dr. Michelet Good DO Status: PRE ER Study: Chest PA and Lateral Date of Exam: 01/18/25 Exam# [id number] Ordering Dr: Kenrick Ott DO PROCEDURE: CHEST [...] Kenrick Ott DO; Dr. 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: Signed Normal [facility] Chloride assayOrdered By: Blaise Ott on 01-18-2025 Chloride [Moles/Vol] 101 mmol/L 98-108 [facility] Consultation - Nephrologyon 01-18-2025 Consultation - Nephrology [facility] Medical Records Department [address] [place] [address] Consultation - Nephrology 01/18/25 1134 MR#: [id number] Acct: [id number] Name: UJJU CACERES Rep #: [id number] : 1945 79 From: Natalie Yen BIOMETRICS EXPERIMENTALIST-C PCP: Dr. Michelet Good, DO Status:ADM IN Location: [place] [address] Assessment Plan Assessment/Plan (1) Acute kidney injury: [...] HPI Consult Data Date of Consult: 01/18/25 [facility] Narrative HPI Narrative: JUJU CACERES, is a [...] any hematuria, dysuria, nocturia, urgency or hesitancy. [facility] Medical History (Updated 01/18/25 @ 11:40 by [...] 05:30 01/18/25 (more content not included)... Normal [facility] Emergency Department Summary on 01-18-2025 Emergency Department Summary [facility] Medical Records Department [address] [place] [address] Emergency Department Summary 01/18/25 MR#: [id number] Acct: [id number] Name: JUJU CACERES Rep #: [id number] : 1945 79 From: Kenrick Ott DO PCP: Dr. Michelet Good DO Status:ADM IN Location: [place] [address] HPI History of Present Illness Chief Complaint: [...] Recent immobilization, Recent surgery or Recent travel [facility] Medical History (Updated 01/18/25 @ 06:59 [...] throughout Psych (more content not included)... Normal [facility] Eosinophil percentageOrdered By: Kenrick Ott on 01-18-2025 Eosinophils/100 WBC (Bld) 4.7 % 0-5 [facility] Erythrocyte distribution wid th ratioOrdered By: Kenrick Ott on 01-18-2025 Erythrocyte distribution width (RBC) [Ratio] 13.2 % 11.6-14.6 [facility] Erythrocyte distribution wid th standard deviationOrdered By: Kenrick Ott on 01-18-2025 Erythrocyte distribution width (RBC) [Ratio] 42.5 fl 35.1-43.9 [facility] Glomerular filtration rate ( GFR) estimation/1.73 sq m using serum, plasma, or whole bOrdered By: Kenrick Ott on 01-18-2025 GFR/1.73 sq M.predicted among non-blacks MDRD (S/P/Bld) [Vol rate/Area] 16 mL/min/{1.73_m2} Low >60 [facility] Comment on above: mL/min/1.73m2 CKD-EP I Creatinine Equation (2020) H AND P Exam - Hospitaliston 01-18-2025 H&P Exam - Hospitalist [facility] Medical Records Department [address] [place] [address] H P Exam - Hospitalist 01/18/25 1856 MR#: [id number] Acct: [id number] Name: JUJU CACERES Rep #: [id number] : 1945 79 From: Michelet Donovan DO PCP: Dr. Michelet Good, DO Status:ADM IN Location: [place] [id number] HPI - General General Date of Admission: 01/18/25 Date of Service: 01/18/25 Chief Complaint: Shortness of breath left-sided chest pain HPI Narrative JUJU CACERES, is a 79 M who presents to the emergency room at [facility] with complaints of shortness of breath and [...] referred him to a chest surgeon at [facility] for a pleural biopsy. I contacted pathology here and the pleural fluid was sent for an additional analysis by [facility] and they read out T-cell predominant lymphocytosis [...] right hydronephrosis. Patient will be admitted to [place] [address] for acute kidney injury and hypercalcemia, he will be seen in consultation by nephrology, I had a brief conversation with nephrology and they advise giving the patient Zometa- pharmacy advised a 4 mg dose. IV fluids will be given and labs will be monitored. Patient will undergo a CT of the abdomen and pelvis while in the hospital. [facility] Medical History (Updated 01/18/25 @ 11:40 by [...] 18 14 (more content not included)... Normal [facility] Hematocrit Auto (Bld) [Volum e fraction]Ordered By: Kenrick Ott on 01-18-2025 Hematocrit (Bld) [Volume fraction] 30.8 % Low 40-54 [facility] Hemoglobin measurementOrdere d By: Kenrick Ott on 01-18-2025 Hemoglobin (Bld) [Mass/Vol] 10.2 g/dL Low 13.0-16.5 [facility] Immature granulocytes/100 WB C Auto (Bld)Ordered By: Kenrick Ott on 01-18-2025 Immature granulocytes/100 WBC (Bld) 0.200 % 0.0-0.9 [facility] Comment on above: IG% - Immature Granu locytes (promyelocytes, myelocytes and metamyelocytes) > 1% indicates that a LEFT SHIFT is Present. Ketones Test strip Ql (U)Ord ered By: Natalie Yen on 01-18-2025 Ketones Ql (U) Negative Negative [facility] Kidney and Bladderon 025 Kidney and Bladder [facility] Imaging Services [address] [place], [place] [address] Kidney and Bladder MR#: [id number] Acct: [id number] Name: JUJU CACERES Rep #: [id number] : 1945 M 79 From: Jay Bardales MD PCP: Dr. Michelet Good, DO Status: REG ER Study: Kidney and Bladder Date of Exam: 01/18/25 Exam# [id number] Ordering Dr: Kenrick Ott DO PROCEDURE: KIDNEY AND BLADDER 01/18/2025 REASON FOR EXAM: ACUTE KIDNEY INJURY TECHNIQUE: KIDNEY AND BLADDER COMPARISON: None FINDINGS: Kidneys: Right kidney is 11.1 x 5.3 x 6.0 cm, while the left is 12.0 x 4.5 x 6.2 cm. [place]: Mild hydronephrosis on the right. The left is normal. Cysts or Masses: None Bladder: Urinary bladder is normal. Prevoid bladder volume 312 cc. Postvoid bladder volume 0 cc. Bilateral ureteral jets are seen. US/Kidney and Bladder IMPRESSION: Mild dilation of the renal collecting system on the right. Reading Location: [id number] CC: Dr. Kenrick Ott, DO; Dr. Michelet Good, DO City Planning Teacher: Signed Normal [facility] L501.4021on 01-18-2025 Trop T High Sen 31 ng/L High <=22 [facility] Comment on above: Performed By: #### M 100.2900, M100.4001, L001.0705, L504.0250, L200.0200, L350.1000, M100.2000, L503.0300 #### [facility] [address] [place], [address] MCV (mean corpuscular volume ) determinationOrdered By: Kenrick Ott on 01-18-2025 MCV (RBC) [Entitic vol] 88.0 fL 80-94 [facility] Mean corpuscular hemoglobin (MCH) determinationOrdered By: Kenrick Ott on 01-18-2025 MCH (RBC) [Entitic mass] 29.1 pg 27.0-32.0 [facility] Mean corpuscular hemoglobin concentration (MCHC) determinationOrdered By: Kenrick Ott on 01-18-2025 MCHC (RBC) [Mass/Vol] 33.1 g/dL 32-36 [facility] Mean platelet volume determi nationOrdered By: Kenrick Ott on 01-18-2025 Platelet mean volume (Bld) [Entitic vol] 10.2 fL 6.2-12.0 [facility] Microscopic analysis of urin e for red blood cells (RBC)Ordered By: Natalie Yen on 01-18-2025 Microscopic analysis of urine for red blood cells (RBC) 0 SEEN /hpf 0-5 [facility] Monocyte percentageOrdered B y: Kenrick Ott on 01-18-2025 Monocytes/100 WBC (Bld) 12.3 % High 0-10 [facility] Mucus LM Ql (Urine sed)Order ed By: Natalie Yen on 01-18-2025 Mucus Ql (Urine sed) 0 SEEN /hpf [facility] Neutrophil percentageOrdered By: Kenrick Ott on 01-18-2025 Neutrophils/100 WBC (Bld) 70.8 % High 47-70 [facility] Nitrite Test strip Ql (U)Ord ered By: Natalie Yen on 01-18-2025 Nitrite Ql (U) Negative Negative [facility] Nucleated red blood cell per centageOrdered By: Kenrick Ott on 01-18-2025 Nucleated RBC/100 WBC (Bld) [Ratio] 0 % 0-5 [facility] PTHINon 01-18-2025 PTH 32 pg/mL Normal 11-61 [facility] Comment on above: Performed By: #### L 3130.0010, L506.1001, L509.1000, L3300.0960 #### [facility] [address] [place] [address], [address] Platelet countOrdered By: Blaise Ott on 01-18-2025 Platelets (Bld) [#/Vol] 380 10*3/uL 150-450 [facility] Potassium measurement (mass/ volume)Ordered By: Kenrick Ott on 01-18-2025 Potassium (Unsp spec) [Mass/Vol] 4.0 mmol/L 3.3-5.1 [facility] Protein Test strip Ql (U)Ord ered By: Natalie Yen on 01-18-2025 Protein Ql (U) 30 mg/dl High Negative [facility] RBC Auto (Bld) [#/Vol]Ordere d By: Kenrick Ott on 01-18-2025 RBC (Bld) [#/Vol] 3.50 10*6/uL Low 4.6-6.2 [facility] Serum creatinine measurement (mass/volume)Ordered By: Kenrick Ott on 01-18-2025 Creatinine [Mass/Vol] 3.72 mg/dL High 0.70-1.20 [facility] Serum glucose measurement (m ass/volume)Ordered By: Kenrick Ott on 01-18-2025 Glucose [Mass/Vol] 98 mg/dL 70-99 [facility] Serum immunoglobulin kappa l ight chains/immunoglobulin lambda light chains mass ratioOrdered By: Natalie Yen on 01-18-2025 Immunoglobulin light chains.kappa/Immunoglo bulin light chains.lambda (S) [Mass ratio] 0.79 0.26-1.65 [facility] Comment on above: Performed at: [facility] [employer] [address] [id number] Director: Torito Green PhD, Phone: [phone] Serum or plasma calcitriol m easurement (mass/volume)Ordered By: Natalie Yen on 01-18-2025 1,25-dihydroxyvitamin D3 [Mass/Vol] 142.0 pg/mL High 24.8-81.5 [facility] Comment on above: Performed at: [facility] [employer] [address] [id number] Director: Tahir Malave MD, Phone: [phone] Serum or plasma calcium emma urement (mass/volume)Ordered By: Kenrick Ott on 01-18-2025 Calcium [Mass/Vol] 13.6 mg/dL High 7.6-11.0 [facility] Comment on above: Critical Result(s) C alled at: 0632 by: YENI MATHUR Results read back by same. Serum or plasma immunoglobul in kappa light chains measurement (mass/volume)Ordered By: Natalie Yen on 01-18-2025 Immunoglobulin light chains.kappa [Mass/Vol] 37.6 mg/L High 3.3-19.4 [facility] Serum or plasma urea nitroge n measurement (mass/volume)Ordered By: Kenrick Ott on 01-18-2025 Urea nitrogen [Mass/Vol] 51 mg/dL High 4-19 [facility] Sodium levelOrdered By: Kenrick Ott on 01-18-2025 Sodium [Moles/Vol] 139 mmol/L 133-145 [facility] Squamous epithelial cells de tection in urine sediment by light microscopyOrdered By: Natalie Yen on 01-18-2025 Epithelial cells.squamous LM Ql (Urine sed) 0 SEEN /hpf 0-5 [facility] Troponin T HS 2 HRon 025 Trop T High Sen 33 ng/L High <=22 [facility] Comment on above: Performed By: #### L 3130.0010, L506.1001, L509.1000, L3300.0960 #### [facility] [address] [place], [address] Troponin T HS 4 HRon 025 Trop T High Sen Normal <=22 [facility] Comment on above: Result Comment: Mc hardin via OM: MD Ordered Performed By: #### M 100.2900, M100.4001, L001.0705, L504.0250, L200.0200, L350.1000, M100.2000, L503.0300 #### [facility] [address] [place], [address] Troponin T.cardiac [Mass/vol ume] in Serum or Plasma by High sensitivity methodOrdered By: Kenrick Ott on 01-18-2025 Troponin T.cardiac High sensitivity method [Mass/Vol] 33 ng/L High <22 [facility] Troponin T.cardiac High sensitivity method [Mass/Vol] 31 ng/L High <22 [facility] Urinalysis, Completeon 01-18 WBC 0-5 SEEN Normal 0-5 [facility] Comment on above: Order Comment: COLLE CTOR TO SPECIFY Performed By: #### L 3130.0010, L506.1001, L509.1000, L3300.0960 #### [facility] [address] [place], [address] BACTERIA 0 SEEN Normal None Seen [facility] Comment on above: Order Comment: COLLE CTOR TO SPECIFY Performed By: #### L 3130.0010, L506.1001, L509.1000, L3300.0960 #### [facility] [address] [place], [address] EPI,SQUAMOUS 0 SEEN Normal 0-5 [facility] Comment on above: Order Comment: COLLE CTOR TO SPECIFY Performed By: #### L 3130.0010, L506.1001, L509.1000, L3300.0960 #### [facility] [address] [place], [address] Mucus Ql (Urine sed) 0 SEEN Normal [facility] Comment on above: Order Comment: JEAN CLAUDE CTOR TO SPECIFY Performed By: #### L 3130.0010, L506.1001, L509.1000, L3300.0960 #### [facility] [address] [place], [address] RBC 0 SEEN Normal 0-5 [facility] Comment on above: Order Comment: JEAN CLAUDE CTOR TO SPECIFY Performed By: #### L 3130.0010, L506.1001, L509.1000, L3300.0960 #### [facility] [address] [place], [address] Urine clarityOrdered By: Juaquin Yen on 01-18-2025 Clarity (U) Sl. Cloudy Clear [facility] Urine color determinationOrd ered By: Natalie Yen on 01-18-2025 Color (U) Straw Yellow [facility] Urine glucose detectionOrder ed By: Natalie Yen on 01-18-2025 Glucose Ql (U) Normal mg/dl Normal [facility] Urine leukocyte esterase det ection by dipstickOrdered By: Natalie Yen on 01-18-2025 Leukocyte esterase Test strip Ql (U) Negative Negative [facility] Urine pHOrdered By: Natalie Yen on 01-18-2025 pH (U) 6.5 [pH] 5.0 - 8.0 [facility] Urine sediment bacteria coun t by microscopy (number/high power field)Ordered By: Natalie Yen on 01-18-2025 Bacteria LM.HPF (Urine sed) [#/Area] 0 /[HPF] None Seen [facility] Urine specific gravity measu rementOrdered By: Natalie Yen on 01-18-2025 Specific gravity (U) [Rel density] 1.015 1.002-1.030 [facility] Urine urobilinogen measureme ntOrdered By: Natalie Yen on 01-18-2025 Urobilinogen Ql (U) Normal mg/dl Normal [facility] Vitamin D,25 Hydroxyon 01-18 Vitamin D 25-OH 81.7 ng/mL Normal 30-100 [facility] Comment on above: Result Comment: Nancy min D Status Deficiency: <20 ng/mL (50nmol/L) Insufficiency: 20-30 ng/mL (50-75 nmol/L) Sufficiency: 30-100 ng/mL (75-250 nmol/L) Toxicity: >100 ng/mL (>250 nmol/L) Performed By: #### L 3130.0010, L506.1001, L509.1000, L3300.0960 #### [facility] [address] [place], [address] White blood cell (WBC) count Ordered By: Kenrick Ott on 01-18-2025 WBC (Bld) [#/Vol] 8.0 10*3/uL 4.4-11.0 [facility] White blood cell countOrdere d By: Natalie Yen on 01-18-2025 White blood cell count 0-5 SEEN /hpf 0-5 [facility] Office Visiton 01-06-2025 Follow-up visit [id number] Edi Caceres 1945 M Date Provider Department Center 01/06/[address] [facility] None Family History Problem Relation Age of Onset Throat cancer Brother Family Status - Relation Status Age at Brother Level of Service:29507 UT OFFICE/OP CONSLTJ NEW/EST PT MOD MDM 40 MINUTES (57) Reason for Visit and Comments: New Patient [542] Normal [facility] Progress Noteon 01-06-2025 Progress Note [facility] CARDIOVASCULAR [facility] THORACIC SURGERY [address] [facility] [address] Dept: [phone] Dept Loc: [phone] Visit type: New Reason for Visit: Mediastinal [...] note, pt had CT chest completed at [facility] on 12/21/24 which demonstrated a large mass [...] Alcohol use: Never Drug use: Never Normal [facility] SURG PATH REQUESTon 01-07-20 Addendum Normal [facility] Comment on above: Result Comment: TCRB and TCRG PCR on outside cell block show no diagnostic T-cell clonal population. Addendum electronically signed by TYSON Jhaveri on 01/19/2025 at 1359 EDT Performed By: #### S URGP #### [facility] (DEFAULT) [address] [place] [address] Case Report Normal [facility] Comment on above: Result Comment: Surg ical Pathology Report Case: [id number] Authorizing Provider: Janice Gu MD Collected: 01/06/2025 11:09 AM Ordering Location[facility] Received: 01/06/2025 11:09 AM [facility] Pathologist: TYSON Jhaveri Specimen: SURG PATH, A) Thoracentesis fluid for cytology Performed By: #### S URGP #### [facility] (DEFAULT) [address] [place] [address] Clinical History Received is a reques t for second opinion consultation by Dr. Janice Gu at [facility]. Clinical Information: 79 M with pulmonary/mediastinal mass. Pleural fluid cytology cytospin and cell block) shows atypical lymphoid cells. No pertinent medical history. WBC is within normal limits. Previous Pathology/History of Cancer/Radiation Therapy: Please rule out lymphoproliferative disorder. Preoperative Diagnosis: Pleural effusion. Normal [facility] Comment on above: Performed By: #### S URGP #### [facility] (DEFAULT) [address] [place] [address] Diagnosis Comments Normal [facility] Comment on above: Result Comment: The cell [...] in situ hybridization (CAROLE), were performed at [facility] on external block A1, with appropriate [...] [facility]. Performed By: #### S URGP #### [facility] (DEFAULT) [address] [place] [address] Gross Description Normal [facility] Comment on above: Result Comment: The following material(s) are received from [facility], [address] [place] [address] with an identifying Surgical Pathology Report: 1 H&E and 11 non-H&E slides labeled [id number]. Subsequently received on January 11, 2025 from the same facility is one (1) paraffin block (A CB1) marked [id number], which is submitted to [facility] Histology/IHC Laboratory for re-cutting and additional staining. Outside materials are returned in 60 days under separate cover with our number recorded on them. Grosser for this case was: Lea Longoria Performed By: #### S URGP #### [facility] (DEFAULT) [address] [place] [address] Microscopic Description Normal [facility] Comment on above: Result Comment: A mi croscopic examination was performed. All controls show appropriate reactivity. All immunohistochemistry (IHC), in situ hybridization (CAROLE), and histochemical tests were developed by and are performed at the [facility] Clinical Laboratory, Histology and IHC Lab, [address] [place] [address]. All Immunofluorescent (IF) tests were developed by and are performed at the [facility] Clinical Laboratory, Renal Division, [address] [place] [address]. All tests reported here, except for PD-L1, have not been cleared by or approved by the [place] Food and Drug Administration (FDA). The laboratory is regulated under CLIA as qualified to perform high-complexity testing. The tests are used for clinical purposes. They should not be regarded as investigational or for research. Performed By: #### S URGP #### [facility] (DEFAULT) [address] [place] [address] Pathologic Diagnosis [facility] Comment on above: Result Comment: Outs aurora Slides [id number] (12/30/24) A. Thorax, pleural effusion, thoracentesis (cytospin, cellblock): T-cell predominant lymphocytosis, see comment. at 1801 EDT Performed By: #### S URGP #### [facility] (DEFAULT) [address] [place] [address] Professional Interpretation Performed at: [facility] Comment on above: Result Comment: [facility] For Immediate Release to Patient's MyChart? Yes [address] [address] Performed By: #### S URGP #### [facility] (DEFAULT) [address] [address] Culture, Anaerobic Any Sourc apolonia 01-04-2025 CUAN UNK UNK No growth in 5 days. [facility] Comment on above: Performed By: #### M 100.2900, M100.4001, L001.0705, L504.0250, L200.0200, L350.1000, M100.2000, L503.0300 ####[facility] [address] [facility] [place], [place], [id number] Body Fluid Culton 12-31-2024 BFC UNK UNK Culture exhibits no growth. [facility] Comment on above: Performed By: #### M 100.2900, M100.4001, L001.0705, L504.0250, L200.0200, L350.1000, M100.2000, L503.0300 ####[facility] [address] [facility] [address] [place], [place], [id number] Anaerobic cultureOrdered By: Domenico Garcia on 12-30-2024 Bacteria identified Anaer cx Nom (Unsp spec) No growth in 5 days. [facility] Body Fluid Cell Count+Diffon 12-30-2024 PATH COMM/BF Reviewed Normal [facility] Comment on above: Order Comment: The r [...] L001.0705, L504.0250, L200.0200, L350.1000, M100.2000, L503.0300 #### [facility] [address] [place], [place], [address] Body fluid appearance (nomin al result)Ordered By: Domenico Garcia on 12-30-2024 Appearance (Body fld) SL CLDY [facility] Body fluid color determinati onOrdered By: Domenico Garcia on 12-30-2024 Color (Body fld) YELLOW [facility] Body fluid cultureOrdered By : Domenico Garcia on 12-30-2024 Microbial culture, body fluid Culture exhibits no growth. [facility] Body fluid lactate dehydroge nase measurement (enzymatic activity/volume) by pyruvateOrdered By: Domenico Garcia on 12-30-2024 LDH Pyruvate to lactate reaction (Body fld) [Catalytic activity/Vol] 566 Units/L Not Establ. [facility] Body fluid leukocytes count (number/volume)Ordered By: Domenico Garcia on 12-30-2024 WBC (Body fld) [#/Vol] 2.795 10*3/uL [facility] Body fluid lymphocytes/100 l eukocytesOrdered By: Domenico Garcia on 12-30-2024 Lymphocytes/100 WBC (Body fld) 86 % [facility] Body fluid macrophage countO rdered By: Domenico Garcia on 12-30-2024 Macrophages (Body fld) [#/Vol] 6 % [facility] Body fluid mononuclear cell percentageOrdered By: Domenico Garcia on 12-30-2024 Mononuclear cells/100 WBC (Body fld) 99.3 % [facility] Body fluid protein measureme nt (mass/volume)Ordered By: Domenico Garcia on 12-30-2024 Protein (Body fld) [Mass/Vol] 4.6 g/dL Not Establ. [facility] Body fluid segmented neutrop hils count (number/volume)Ordered By: Domenico Garcia on 12-30-2024 Segmented neutrophils (Body fld) [#/Vol] 0 % [facility] Body fluid total cell countO rdered By: Domenico Garcia on 12-30-2024 Cells Counted Total (Body fld) [#] 2.828 10^3/ul [facility] Comment on above: This is the Total Nu mber of Nucleated Cell Types in the Body Fluid. Cytology report of Body flui d Cyto stainOrdered By: Domenico Garcia on 12-30-2024 Cytology report Cyto stain Doc (Body fld) SEE PATHOLOGY REPORT [facility] Comment on above: Specimen submitted t o Anatomical Pathology Department for testing. Cytology, Body Fluid / CSFon 12-30-2024 CYTOLOGY,BF/CSF SEE PATHOLOGY REPORT Normal [facility] Comment on above: Order Comment: BODY FLUID BLEURAL EFFUSION LT THORA Result Comment: Spec imen submitted to Anatomical Pathology Department for testing. Performed By: #### M 100.2900, M100.4001, L001.0705, L504.0250, L200.0200, L350.1000, M100.1999, L503.0300 ####[facility] [address] [place], [address] Gram Stainon 12-30-2024 GS UNK UNK Centrifuged Specimen? Culture performed on centrifuged specimen Gram Stain 3+ White Blood Cells No organisms seen Normal [facility] Comment on above: Performed By: #### M 100.2900, M100.4001, L001.0705, L504.0250, L200.0200, L350.1000, M100.2000, L503.0300 ####[facility] [address] [place], [address] Gram stainOrdered By: Domenico Garcia on 12-30-2024 Microscopic observation Gram stain Nom (Unsp spec) [facility] Immunohistochemical Stainson 12-30-2024 Immunohistochemical Stains Patient Age/Sex Location Account Attending Physician JUJU CACERES 79/M [id number] Dr. Domenico Garcia DO Specimen: [id number] Received: 12/30/24 Status: LOUIE Hayes Num: [id number] Spec Type: Fluid Subm Dr: DO CLAUDIA [...] GROSS A. Received is 110 ml of gcjb-ybljfn-awdfjd fluid labeled with the patient's name and and designated per the requisition as Thoracentesis fluid. Submitted for cytology and cell block preparation. Mr 12/30/2024 CPT: 76110,[id number],61408i9 ADDENDUM Addendum 2 Entered: 02/03/25-1013 This addendum is added to incorporate an outside pathology consultation report. The case was examined at [facility] by Dr. Cain (#[id number]) and the following diagnosis was rendered. T-cell receptor (TCR) gene rearrangement analysis report: TCRB and TCRG PCR on outside block show no diagnostic T-cell clonal population. TCRB PCR Pattern: Predominantly polyclonal pattern with minimal skewing. Patient Age/Sex Location Account Attending Physician JUJU CACERES 79/M [id number] Dr. Domenico Garcia, DO ADDENDUM (Continued) TCRGB Interpretation: There is no diagnostic evidence of a clonal T-cell population in this sample by TCRG and TCRB PCR. Run and sample controls meet acceptable criteria. Please see complete above mentioned consultation report in EMR Addendum Signed (signature on file) Dr. Janice Gu MD 02/03/25 1018 Addendum 1 Entered: 01/18/25-9428 This addendum is added to incorporate an outside pathology consultation report. The case was examined at [facility] by Dr. Lesly Cain (#[id number]) and the following diagnosis was rendered. A. [...] in situ hybridization (CAROLE), were performed at [facility] on external block A1, with appropriate [...] Location Account Attending Physician JUJU CACERES 79/M [id number] (more content not included)... Normal [facility] Comment on above: Performed By: #### L 3130.0010, L506.1001, L509.1000, L3300.0960 #### [facility] [address] [place], [address] LDH,Body Fluidon 12-30-2024 LDH,BF 566 Units/L Normal Not Establ. [facility] Comment on above: Order Comment: BODY FLUID BLEURAL EFFUSION LT THORA Performed By: #### M 100.2900, M100.4001, L001.0705, L504.0250, L200.0200, L350.1000, M100.2000, L503.0300 ####[facility] [address] [place], [address] Monocyte detectionOrdered By : Domenico Garcia on 12-30-2024 Monocytes/100 WBC (Bld) 8 % [facility] No Panel InformationOrdered By: Domenico Garcia on 12-30-2024 Body Fluid Comment 2 SEE COMMENT [facility] Comment on above: .INTERPRETATION OF R ESULTS: Differentiation of transudate and exudate fluid: TRANSUDATE EXUDATE Color- Clear,straw colored Clear,turbid,bloody,purulent RBCs- Usually none to few Often present in high numbers WBCs- Usually none to few Often present in high numbers DIFF Few lymphocytes or Lymphocytes, neutrophils, andCount- mesothelial cells. polymorphonuclear cells . Body Fluid RBC 104 /mm3 [facility] 104 /mm3 [facility] SEE COMMENT [facility] Pathologist interpretation o f Body fluid testsOrdered By: Domenico Garcia on 12-30-2024 Pathologist interpretation (Body fld) [Interp] Reviewed [facility] Comment on above: Previous reported re sult: [...] Protein [Mass/Vol] 4.6 g/dL Normal Not Establ. [facility] Comment on above: Order Comment: BODY FLUID BLEURAL EFFUSION LT THORA Performed By: #### M 100.2900, M100.4001, L001.0705, L504.0250, L200.0200, L350.1000, M100.2000, L503.0300 #### [facility] [address] [place], [place], [id number] Protein, Totalon 12-30-2024 T PROT Normal 5.9-8.4 [facility] Comment on above: Order Comment: BODY FLUID Result Comment: BODY FLUID COLLECTED Performed By: #### M 100.2900, M100.4001, L001.0705, L504.0250, L200.0200, L350.1000, M100.2000, L503.0300 #### [facility] [address] [place], [address] Special Stain Group IIon Special Stain Group II -------- Patient Age/Sex Location Account Attending Physician JUJU CACERES 79/M [id number] Dr. Domenico Garcia, DO Specimen: [id number] Received: 12/30/24 Status: LOUIE Hayes Num: [id number] Spec Type: Fluid Subm Dr: Dr. Domenico [...] GROSS A. Received is 110 ml of fvok-jmavfq-thgvzn fluid labeled with the patient's name and and designated per the requisition as Thoracentesis fluid. Submitted for cytology and cell block preparation. 12/30/2024 CPT: 49544,[id number] Signed (signature on file) Dr. Janice Gu MD 12/31/24 1903 Normal [facility] Comment on above: Performed By: #### L 3130.0010, L506.1001, L509.1000, L3300.0960 #### [facility] [address] [place], [address] Specimen source identificati on of body fluidOrdered By: Domenico Garcia on 12-30-2024 Specimen source Nom (Body fld) THORACENTESIS [facility] Thoracentesis W USon 025 Thoracentesis W [facility] [address] [place] [address] Thoracentesis W US MR#: [id number] Acct: [id number] Name: JUJU CACERES Rep #: [id number] : 1945 M 79 From: Rodney Gavin PCP: Dr. Michelet Good DO Status: REG CLI Study: Thoracentesis W US Date of Exam: 12/30/24 Exam# [id number] Ordering Dr: Domenico Garcia DO PROCEDURE: THORACENTESIS W US 12/30/2024 REASON FOR EXAM: PLEURAL EFFUSION. Left pleural effusion TECHNIQUE: THORACENTESIS W US, diagnostic and therapeutic. COMPARISON: None. FINDINGS: Procedure: Following informed consent, and using standard sterile technique, an ultrasound-guided left thoracentesis was performed. 2% lidocaine local anesthesia was followed by placement of a 5 [place] catheter into the left pleural fluid collection via a posterior approach. A proximally 1160 mL light clear yellow fluid was successfully removed, a portion sent to the laboratory for evaluation. No complication was encountered, and the patient left the department in good condition without significant complaint. US/Thoracentesis W US IMPRESSION: Successful diagnostic and therapeutic ultrasound-guided left thoracentesis. Laboratory results pending. Reading Location: [place] [address] CC: Dr. Domenico Garcia DO; Dr. 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: Signed Normal [facility] Activated partial thrombopla stin time (aPTT) in platelet poor plasma by coagulation aOrdered By: Domenico Garcia on 12-27-2024 aPTT Coag (PPP) [Time] 38.7 s High 24.1-36.2 [facility] International normalized rat io (INR) calculationOrdered By: Domenico Garcia on 12-27-2024 INR Coag (Bld) [Relative time] 1.1 {INR} [facility] LDHon 12-27-2024 LDH 272 U/L High 87-241 [facility] Comment on above: Order Comment: 1 Performed By: #### L 3130.0010, L506.1001, L509.1000, L3300.0960 #### [facility] [address] [place], [place], [id number] (913) Lactate dehydrogenase (LDH) measurementOrdered By: Domenico Garcia on 12-27-2024 LDH [Catalytic activity/Vol] 272 U/L High 87-241 [facility] PLATELET COUNTon 12-27-2024 Platelets (Bld) [#/Vol] 358 10*3/uL Normal 150-450 [facility] Comment on above: Performed By: #### L 3130.0010, L506.1001, L509.1000, L3300.0960 #### [facility] [address] [place], [place], [id number] (092) Partial Thromboplast Timeon 12-27-2024 aPTT Coag (Bld) [Time] 38.7 s High 24.1-36.2 [facility] Comment on above: Performed By: #### L 3130.0010, L506.1001, L509.1000, L3300.0960 #### [facility] [address] [place], [place], [phone] Platelet countOrdered By: Delarosa on 12-27-2024 Platelets (Bld) [#/Vol] 358 10*3/uL 150-450 [facility] Prothrombin Time w/INRon INR Coag (PPP) [Relative time] 1.1 {INR} Normal [facility] Comment on above: Performed By: #### L 3130.0010, L506.1001, L509.1000, L3300.0960 #### [facility] [address] [place], [address] PT Coag (PPP) [Time] 14.4 s Normal 11.7-14.9 [facility] Comment on above: Performed By: #### L 3130.0010, L506.1001, L509.1000, L3300.0960 #### [facility] [address] [place], [address] Prothrombin timeOrdered By: Domenico Garcia on 12-27-2024 PT Coag (PPP) [Time] 14.4 s 11.7-14.9 [facility] Pulmonary Visit Reporton Pulmonary Visit Report [facility] [address] [place] [address] OFFICE VISIT Date of Service: 12/27/24 MR#: [id number] Acct: [id number] Name: JUJU CACERES Rep #: [id number] : 1945 Provider: Dr. Domenico Garcia DO Age/Sex: 79/M Location: [facility].PM[facility] Status: Signed Assessment and Plan Assessment and Plan (1) Lung mass: Status: Acute Plan: The patient presented today for the evaluation of a lung mass which was identified on CT imaging completed through [facility] on December 21, 2024. That imaging [...] to the office of Dr. Harvey at [facility]. 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 Normal [facility] CT THORAX W/ CONTRASTon 12-01 CT THORAX [...] 12/23/2024 8:44:38 AM Ordering Provider: MICHELET GOOD [facility] CT ABDOMEN/PELVIS W/CONTRAST on 12-22-2024 CT [...] 12/22/2024 10:03:43 AM Ordering Provider: MICHELET GOOD [facility] RADHA + Protein Elect, Serumon 12-09-2024 Albumin [Mass/Vol] 3.5 g/dL Normal 2.9-4.4 [facility] Comment on above: Order Comment: ADD O N PLEASE-SWRIGHTN Performed By: #### L 101.9900, L501.6710, L500.4050, L501.9910, L400.2010, L3100.3425, L501.9520, L100.0100 ####[facility] [address] [place], [address] Albumin/Globulin [Mass ratio] 0.9 {ratio} Normal 0.7-1.7 [facility] Comment on above: Order Comment: ADD O N PLEASE-SWRIGHTN Performed By: #### L 101.9900, L501.6710, L500.4050, L501.9910, L4.2010, L3100.3425, L501.9520, L100.0100 ####[facility] [address] [place], [address] FUVOC-4-RPIC 0.4 g/dL Normal 0.0-0.4 [facility] Comment on above: Order Comment: ADD O N PLEASE-SWRIGHTN Performed By: #### L 101.9900, L501.6710, L500.4050, L501.9910, L4.2010, L3100.3425, L501.9520, L100.0100 ####[facility] [address] [place], [address] IZCWU-6-XGCL 1.2 g/dL High 0.4-1.0 [facility] Comment on above: Order Comment: ADD O N PLEASE-SWRIGHTN Performed By: #### L 101.9900, L501.6710, L500.4050, L501.9910, L4.2010, L3100.3425, L501.9520, L100.0100 ####[facility] [address] [place], [address] BETA GLOBULIN 1.2 g/dL Normal 0.7-1.3 [facility] Comment on above: Order Comment: ADD O N PLEASE-SWRIGHTN Performed By: #### L 101.9900, L501.6710, L500.4050, L501.9910, L4.2010, L3100.3425, L501.9520, L100.0100 ####[facility] [address] [place], [address] GAMMA GLOBULIN 1.5 g/dL Normal 0.4-1.8 [facility] Comment on above: Order Comment: ADD O N PLEASE-SWRIGHTN Performed By: #### L 101.9900, L501.6710, L500.4050, L501.9910, L400.2010, L3100.3425, L501.9520, L100.0100 ####[facility] [address] [place], [address] Globulin (S) [Mass/Vol] 4.3 g/dL Abnormal 2.2-3.9 [facility] Comment on above: Order Comment: ADD O N PLEASE-SWRIGHTN Performed By: #### L 101.9900, L501.6710, L500.4050, L501.9910, L400.2010, L3100.3425, L501.9520, L100.0100 ####[facility] [address] [place], [address] RADHA RESULT,S Comment Abnormal . [facility] Comment on above: Order Comment: ADD O N PLEASE-SWRIGHTN Result Comment: Immu nofixation shows IgG monoclonal protein with lambda light chain specificity. Performed By: #### L 101.9900, L501.6710, L500.4050, L501.9910, L400.2010, L3100.3425, L501.9520, L100.0100 ####[facility] [address] [place], [address] IMMUNOGLOB A QN 275 mg/dL Normal 61-437 [facility] Comment on above: Order Comment: ADD O N PLEASE-SWRIGHTN Performed By: #### L 101.9900, L501.6710, L500.4050, L501.9910, L400.2010, L3100.3425, L501.9520, L100.0100 ####[facility] [address] [place], [address] IMMUNOGLOB G QN 1476 mg/dL Normal 603-1613 [facility] Comment on above: Order Comment: ADD O N PLEASE-SWRIGHTN Performed By: #### L 101.9900, L501.6710, L500.4050, L501.9910, L400.2010, L3100.3425, L501.9520, L100.0100 ####[facility] [address] [place], [address] IMMUNOGLOB M QN 70 mg/dL Normal 15-143 [facility] Comment on above: Order Comment: ADD O N PLEASE-SWRIGHTN Performed By: #### L 101.9900, L501.6710, L500.4050, L501.9910, L400.2010, L3100.3425, L501.9520, L100.0100 ####[facility] [address] [place], [address] M-Kvng 0.6 g/dL Abnormal Not Observed [facility] Comment on above: Order Comment: ADD O N PLEASE-SWRIGHTN Performed By: #### L 101.9900, L501.6710, L500.4050, L501.9910, L400.2010, L3100.3425, L501.9520, L100.0100 ####[facility] [address] [place], [address] NOTE: Comment Normal . [facility] Comment on above: Order Comment: ADD O N PLEASE-SWRIGHTN Result Comment: Prot ein electrophoresis scan will follow via computer, mail, or proof load mechanic delivery. Performed at: [address] [id number] Payroll Clerk: Torito Green PhD, Phone: [phone] Performed By: #### L 101.9900, L501.6710, L500.4050, L501.9910, L400.2010, L3100.3425, L501.9520, L100.0100 ####[facility] [address] [place], [address] Protein [Mass/Vol] 7.8 g/dL Normal 6.0-8.5 [facility] Comment on above: Order Comment: ADD O N PLEASE-SWRIGHTN Performed By: #### L 101.9900, L501.6710, L500.4050, L501.9910, L400.2010, L3100.3425, L501.9520, L100.0100 ####[facility] [address] [place], [address] Absolute lymphocyte countOrd ered By: Michelet Good on 12-02-2024 Lymphocytes Auto (Unsp spec) [#/Vol] 0.84 10*3/uL 0.83-4.51 [facility] Absolute neutrophil countOrd ered By: Michelet Good on 12-02-2024 Neutrophils (Bld) [#/Vol] 6.0 10*3/uL 2.0-7.7 [facility] Albumin Elph [Mass/Vol]Order ed By: Michelet Good on 12-02-2024 Albumin [Mass/Vol] 3.5 g/dL 2.9-4.4 [facility] Anion gap in Serum or Plasma Ordered By: Michelet Good on 12-02-2024 Anion gap [Moles/Vol] 16 mmol/L High 5-15 [facility] Automated lymphocyte count a s percentage of total leukocytesOrdered By: Michelet Good on 12-02-2024 Lymphocytes/100 WBC Auto (Unsp spec) 10.8 % Low 19-41 [facility] BUN/creatinine ratioOrdered By: Michelet Good on 12-02-2024 Urea nitrogen/Creatinine [Mass ratio] 18.3 mg/mg 10-20 [facility] Basophil percentageOrdered B y: Michelet Good on 12-02-2024 Basophils/100 WBC (Bld) 0.6 % 0-1 [facility] Bilirubin Test strip Ql (U)O rdered By: Michelet Good on 12-02-2024 Bilirubin Ql (U) Negative Negative [facility] Bilirubin, totalOrdered By: Michelet QuiñonesFlorentino on 12-02-2024 Bilirubin [Mass/Vol] 0.43 mg/dL 0.00-1.30 [facility] CBC W/Diff, Automatedon Absolute Lymph 0.84 X10 3/uL Normal 0.83-4.51 [facility] Comment on above: Performed By: #### L 101.9900, L501.6710, L500.4050, L501.9910, L400.2010, L3100.3425, L501.9520, L100.0100 ####[facility] [address] [place], [address] Absolute Neut 6.0 X10 3/uL Normal 2.0-7.7 [facility] Comment on above: Performed By: #### L 101.9900, L501.6710, L500.4050, L501.9910, L400.2010, L3100.3425, L501.9520, L100.0100 ####[facility] [address] [place], [address] Basophils/100 WBC (Bld) 0.6 % Normal 0-1 [facility] Comment on above: Performed By: #### L 101.9900, L501.6710, L500.4050, L501.9910, L400.2010, L3100.3425, L501.9520, L100.0100 ####[facility] [address] [place], [address] Eosinophils/100 WBC (Bld) 1.3 % Normal 0-5 [facility] Comment on above: Performed By: #### L 101.9900, L501.6710, L500.4050, L501.9910, L400.2010, L3100.3425, L501.9520, L100.0100 ####[facility] [address] [place], [address] Erythrocyte distribution width (RBC) [Ratio] 13.8 % Normal 11.6-14.6 [facility] Comment on above: Performed By: #### L 101.9900, L501.6710, L500.4050, L501.9910, L400.2010, L3100.3425, L501.9520, L100.0100 ####[facility] [address] [place], [address] Hematocrit (Bld) [Volume fraction] 38.9 % Low 40-54 [facility] Comment on above: Performed By: #### L 101.9900, L501.6710, L500.4050, L501.9910, L400.2010, L3100.3425, L501.9520, L100.0100 ####[facility] [address] [place], [address] Hemoglobin (Bld) [Mass/Vol] 12.4 g/dL Low 13.0-16.5 [facility] Comment on above: Performed By: #### L 101.9900, L501.6710, L500.4050, L501.9910, L400.2010, L3100.3425, L501.9520, L100.0100 ####[facility] [address] [place], [address] IG% 0.300 Normal 0.0-0.9 [facility] Comment on above: Result Comment: IG% - Immature Granulocytes (promyelocytes, myelocytes and metamyelocytes) > 1% indicates that a LEFT SHIFT is Present. Performed By: #### L 101.9900, L501.6710, L500.4050, L501.9910, L400.2010, L3100.3425, L501.9520, L100.0100 ####[facility] [address] [place], [address] Lymphocytes/100 WBC (Bld) 10.8 % Low 19-41 [facility] Comment on above: Performed By: #### L 101.9900, L501.6710, L500.4050, L501.9910, L400.2010, L3100.3425, L501.9520, L100.0100 ####[facility] [address] [place], [address] MCH (RBC) [Entitic mass] 28.6 pg Normal 27.0-32.0 [facility] Comment on above: Performed By: #### L 101.9900, L501.6710, L500.4050, L501.9910, L400.2010, L3100.3425, L501.9520, L100.0100 ####[facility] [address] [place], [address] MCHC (RBC) [Mass/Vol] 31.9 g/dL Low 32-36 [facility] Comment on above: Performed By: #### L 101.9900, L501.6710, L500.4050, L501.9910, L400.2010, L3100.3425, L501.9520, L100.0100 ####[facility] [address] [place], [address] MCV (RBC) [Entitic vol] 89.6 fL Normal 80-94 [facility] Comment on above: Performed By: #### L 101.9900, L501.6710, L500.4050, L501.9910, L400.2010, L3100.3425, L501.9520, L100.0100 ####[facility] [address] [place], [address] Monocytes/100 WBC (Bld) 10.0 % Normal 0-10 [facility] Comment on above: Performed By: #### L 101.9900, L501.6710, L500.4050, L501.9910, L400.2010, L3100.3425, L501.9520, L100.0100 ####[facility] [address] [place], [address] Neutrophils/100 WBC (Bld) 77.0 % High 47-70 [facility] Comment on above: Performed By: #### L 101.9900, L501.6710, L500.4050, L501.9910, L400.2011, L3100.3425, L501.9520, L100.0100 ####[facility] [address] [place], [address] Nucleated RBC (Bld) [#/Vol] 0 10*3/uL Normal 0-5 [facility] Comment on above: Performed By: #### L 101.9900, L501.6710, L500.4050, L501.9910, L400.2010, L3100.3425, L501.9520, L100.0100 ####[facility] [address] [place], [address] Platelet mean volume (Bld) [Entitic vol] 10.4 fL Normal 6.2-12.0 [facility] Comment on above: Performed By: #### L 101.9900, L501.6710, L500.4050, L501.9910, L400.2010, L3100.3425, L501.9520, L100.0100 ####[facility] [address] [place], [address] Platelets (Bld) [#/Vol] 391 10*3/uL Normal 150-450 [facility] Comment on above: Performed By: #### L 101.9900, L501.6710, L500.4050, L501.9910, L400.2010, L3100.3425, L501.9520, L100.0100 ####[facility] [address] [place], [address] RBC (Bld) [#/Vol] 4.34 10*6/uL Low 4.6-6.2 [facility] Comment on above: Performed By: #### L 101.9900, L501.6710, L500.4050, L501.9910, L400.2010, L3100.3425, L501.9520, L100.0100 ####[facility] [address] [place], [address] RDW SD 45.2 fl High 35.1-43.9 [facility] Comment on above: Performed By: #### L 101.9900, L501.6710, L500.4050, L501.9910, L400.2010, L3100.3425, L501.9520, L100.0100 ####[facility] [address] [place], [address] WBC (Bld) [#/Vol] 7.8 10*3/uL Normal 4.4-11.0 [facility] Comment on above: Performed By: #### L 101.9900, L501.6710, L500.4050, L501.9910, L400.2010, L3100.3425, L501.9520, L100.0100 ####[facility] [address] [place], [address] CRPon 12-02-2024 C-REACTIVE PROT 87.20 mg/L High 0.0-3.0 [facility] Comment on above: Performed By: #### L 101.9900, L501.6710, L500.4050, L501.9910, L400.2010, L3100.3425, L501.9520, L100.0100 ####[facility] [address] [place], [address] Carbon dioxide, total [Moles /volume] in Central venous bloodOrdered By: Michelet Good on 12-02-2024 CO2 [Moles/Vol] 24.4 mmol/L 21.0-32.0 [facility] Chloride assayOrdered By: Carin Good on 12-02-2024 Chloride [Moles/Vol] 98 mmol/L 98-108 [facility] Comprehensive Metabolic Prof ilon 12-02-2024 Albumin [Mass/Vol] 4.1 g/dL Normal 3.4-4.8 [facility] Comment on above: Performed By: #### L 101.9900, L501.6710, L500.4050, L501.9910, L400.2010, L3100.3425, L501.9520, L100.0100 ####[facility] [address] [place], [address] Albumin/Globulin [Mass ratio] 1.0 {ratio} Normal 0.9-2.4 [facility] Comment on above: Performed By: #### L 101.9900, L501.6710, L500.4050, L501.9910, L400.2010, L3100.3425, L501.9520, L100.0100 ####[facility] [address] [place], [address] ALK PHOS 131 U/L High 40-129 [facility] Comment on above: Performed By: #### L 101.9900, L501.6710, L500.4050, L501.9910, L400.2010, L3100.3425, L501.9520, L100.0100 ####[facility] [address] [place], [address] ALT [Catalytic activity/Vol] 15 U/L Normal <=46 [facility] Comment on above: Performed By: #### L 101.9900, L501.6710, L500.4050, L501.9910, L400.2010, L3100.3425, L501.9520, L100.0100 ####[facility] [address] [place], [address] AST [Catalytic activity/Vol] 20 U/L Normal <=37 [facility] Comment on above: Performed By: #### L 101.9900, L501.6710, L500.4050, L501.9910, L400.2010, L3100.3425, L501.9520, L100.0100 ####[facility] [address] [place], [address] Bilirubin [Mass/Vol] 0.43 mg/dL Normal 0.00-1.30 [facility] Comment on above: Performed By: #### L 101.9900, L501.6710, L500.4050, L501.9910, L400.2010, L3100.3425, L501.9520, L100.0100 ####[facility] [address] [place], [address] BUN/CRE 18.3 RATIO Normal 10-20 [facility] Comment on above: Performed By: #### L 101.9900, L501.6710, L500.4050, L501.9910, L400.2010, L3100.3425, L501.9520, L100.0100 ####[facility] [address] [place], [address] Calcium [Mass/Vol] 10.7 mg/dL Normal 7.6-11.0 [facility] Comment on above: Performed By: #### L 101.9900, L501.6710, L500.4050, L501.9910, L400.2010, L3100.3425, L501.9520, L100.0100 ####[facility] [address] [place], [address] Chloride [Moles/Vol] 98 mmol/L Normal 98-108 [facility] Comment on above: Performed By: #### L 101.9900, L501.6710, L500.4050, L501.9910, L400.2010, L3100.3425, L501.9520, L100.0100 ####[facility] [address] [place], [address] CO2 [Moles/Vol] 24.4 mmol/L Normal 21.0-32.0 [facility] Comment on above: Performed By: #### L 101.9900, L501.6710, L500.4050, L501.9910, L400.2010, L3100.3425, L501.9520, L100.0100 ####[facility] [address] [place], [address] Creatinine [Mass/Vol] 1.60 mg/dL High 0.70-1.20 [facility] Comment on above: Performed By: #### L 101.9900, L501.6710, L500.4050, L501.9910, L400.2010, L3100.3425, L501.9520, L100.0100 ####[facility] [address] [place], [address] GAP 16 High 5-15 [facility] Comment on above: Performed By: #### L 101.9900, L501.6710, L500.4050, L501.9910, L400.2010, L3100.3425, L501.9520, L100.0100 ####[facility] [address] [place], [address] GFR/1.73 sq M.predicted among non-blacks MDRD (S/P/Bld) [Vol rate/Area] 43 mL/min/{1.73_m2} Low >60 [facility] Comment on above: Result Comment: mL/m in/1.73m2 CKD-EPI Creatinine Equation (2020) Performed By: #### L 101.9900, L501.6710, L500.4050, L501.9910, L400.2010, L3100.3425, L501.9520, L100.0100 ####[facility] [address] [place], [address] Globulin (S) [Mass/Vol] 4.3 g/dL High 2.2-4.2 [facility] Comment on above: Performed By: #### L 101.9900, L501.6710, L500.4050, L501.9910, L400.2011, L3100.3425, L501.9520, L100.0100 ####[facility] [address] [place], [address] Glucose [Mass/Vol] 97 mg/dL Normal 70-99 [facility] Comment on above: Performed By: #### L 101.9900, L501.6710, L500.4050, L501.9910, L400.2011, L3100.3425, L501.9520, L100.0100 ####[facility] [address] [place], [address] Potassium [Moles/Vol] 4.7 mmol/L Normal 3.3-5.1 [facility] Comment on above: Performed By: #### L 101.9900, L501.6710, L500.4050, L501.9910, L400.2010, L3100.3425, L501.9520, L100.0100 ####[facility] [address] [place], [address] Sodium [Moles/Vol] 139 mmol/L Normal 133-145 [facility] Comment on above: Performed By: #### L 101.9900, L501.6710, L500.4050, L501.9910, L400.2010, L3100.3425, L501.9520, L100.0100 ####[facility] [address] [place], [address] T PROT 8.4 g/dL Normal 5.9-8.4 [facility] Comment on above: Performed By: #### L 101.9900, L501.6710, L500.4050, L501.9910, L400.2011, L3100.3425, L501.9520, L100.0100 ####[facility] [address] [place], [place], [address] Urea nitrogen [Mass/Vol] 29 mg/dL High 4-19 [facility] Comment on above: Performed By: #### L 101.9900, L501.6710, L500.4050, L501.9910, L400.2011, L3100.3425, L501.9520, L100.0100 ####[facility] [address] [place], [place], [id number] Eosinophil percentageOrdered By: Michelet Good on 12-02-2024 Eosinophils/100 WBC (Bld) 1.3 % 0-5 [facility] Erythrocyte Sed Rateon 12-02 SED RATE 42 mm/hr High 0-20 [facility] Comment on above: Performed By: #### L 101.9900, L501.6710, L500.4050, L501.9910, L400.2010, L3100.3425, L501.9520, L100.0100 ####[facility] [address] [place], [place], [address] Erythrocyte distribution wid th ratioOrdered By: Michelet Good on 12-02-2024 Erythrocyte distribution width (RBC) [Ratio] 13.8 % 11.6-14.6 [facility] Erythrocyte distribution wid th standard deviationOrdered By: Michelet Good on 12-02-2024 Erythrocyte distribution width (RBC) [Ratio] 45.2 fl High 35.1-43.9 [facility] Erythrocyte sedimentation ra teOrdered By: Michelet Good on 12-02-2024 ESR (Bld) [Velocity] 42 mm/h High 0-20 [facility] Glomerular filtration rate ( GFR) estimation/1.73 sq m using serum, plasma, or whole bOrdered By: Michelet Good on 12-02-2024 GFR/1.73 sq M.predicted among non-blacks MDRD (S/P/Bld) [Vol rate/Area] 43 mL/min/{1.73_m2} Low >60 [facility] Comment on above: mL/min/1.73m2 CKD-EP I Creatinine Equation (2020) Hematocrit Auto (Bld) [Volum e fraction]Ordered By: Michelet Good on 12-02-2024 Hematocrit (Bld) [Volume fraction] 38.9 % Low 40-54 [facility] Hemoglobin measurementOrdere d By: Michelet Good on 12-02-2024 Hemoglobin (Bld) [Mass/Vol] 12.4 g/dL Low 13.0-16.5 [facility] Immature granulocytes/100 WB C Auto (Bld)Ordered By: Michelet Good on 12-02-2024 Immature granulocytes/100 WBC (Bld) 0.300 % 0.0-0.9 [facility] Comment on above: IG% - Immature Granu locytes (promyelocytes, myelocytes and metamyelocytes) > 1% indicates that a LEFT SHIFT is Present. Interpretation of serum or p lasma protein pattern by immunofixation (narrative resultOrdered By: Michelet Good on 12-02-2024 Protein Fractions Immunofixation Ko [Interp] 0.6 g/dL High Not Observed [facility] Ketones Test strip Ql (U)Ord ered By: Michelet Good on 12-02-2024 Ketones Ql (U) 5 mg/dl High Negative [facility] Laboratory - Chemistry and C hemistry - challengeOrdered By: Michelet Good on 12-02-2024 AST [Catalytic activity/Vol] 20 U/L <38 [facility] MCV (mean corpuscular volume ) determinationOrdered By: Michelet Good on 12-02-2024 MCV (RBC) [Entitic vol] 89.6 fL 80-94 [facility] Mean corpuscular hemoglobin (MCH) determinationOrdered By: iMchelet Good on 12-02-2024 MCH (RBC) [Entitic mass] 28.6 pg 27.0-32.0 [facility] Mean corpuscular hemoglobin concentration (MCHC) determinationOrdered By: Michelet Good on 12-02-2024 MCHC (RBC) [Mass/Vol] 31.9 g/dL Low 32-36 [facility] Mean platelet volume determi nationOrdered By: Michelet QuiñonesFlorentino on 12-02-2024 Platelet mean volume (Bld) [Entitic vol] 10.4 fL 6.2-12.0 [facility] Monocyte percentageOrdered B y: Michelet QuiñonesFlorentino on 12-02-2024 Monocytes/100 WBC (Bld) 10.0 % 0-10 [facility] Neutrophil percentageOrdered By: Michelet Florentino on 12-02-2024 Neutrophils/100 WBC (Bld) 77.0 % High 47-70 [facility] No Panel InformationOrdered By: Michelet Florentino on 12-02-2024 Addendum Document Comment . [facility] Comment on above: Protein electrophore sis scan will follow via computer,mail, or proof load mechanic delivery.Performed at: [facility] [id number] Director: Torito Green PhD, Phone: [phone] 20 U/L <38 [facility] Nucleated red blood cell per centageOrdered By: Michelet Florentino on 12-02-2024 Nucleated RBC/100 WBC (Bld) [Ratio] 0 % 0-5 [facility] PSA,Total - Annual Screenon 12-02-2024 PSA,TOT SCREEN 3.39 ng/mL Normal 0.02-4.00 [facility] Comment on above: Result Comment: This test [...] L501.6710, L500.4050, L501.9910, L400.2011, L3100.3425, L501.9520, L100.0100 ####[facility] [address] [place], [address] Platelet countOrdered By: Carin Good on 12-02-2024 Platelets (Bld) [#/Vol] 391 10*3/uL 150-450 [facility] Potassium measurement (mass/ volume)Ordered By: Michelet Good on 12-02-2024 Potassium (Unsp spec) [Mass/Vol] 4.7 mmol/L 3.3-5.1 [facility] Protein Test strip Ql (U)Ord ered By: Michelet Good on 12-02-2024 Protein Ql (U) 15 mg/dl High Negative [facility] RBC Auto (Bld) [#/Vol]Ordere d By: Michelet Good on 12-02-2024 RBC (Bld) [#/Vol] 4.34 10*6/uL Low 4.6-6.2 [facility] Serum creatinine measurement (mass/volume)Ordered By: Michelet Good on 12-02-2024 Creatinine [Mass/Vol] 1.60 mg/dL High 0.70-1.20 [facility] Serum globulin measurement ( mass/volume)Ordered By: Michelet Good on 12-02-2024 Globulin (S) [Mass/Vol] 4.3 g/dL High 2.2-3.9 [facility] Serum glucose measurement (m ass/volume)Ordered By: Michelet Good on 12-02-2024 Glucose [Mass/Vol] 97 mg/dL 70-99 [facility] Serum or plasma C reactive p rotein measurement (mass/volume)Ordered By: Michelet Good on 12-02-2024 CRP [Mass/Vol] 87.20 mg/L High 0.0-3.0 [facility] Serum or plasma IgA measurem ent (mass/volume)Ordered By: Michelet Good on 12-02-2024 IgA [Mass/Vol] 275 mg/dL 61-437 [facility] Serum or plasma IgG measurem ent (mass/volume)Ordered By: Michelet Good on 12-02-2024 IgG [Mass/Vol] 1476 mg/dL 603-1613 [facility] Serum or plasma alanine keen otransferase (ALT) measurementOrdered By: Michelet Good on 12-02-2024 ALT [Catalytic activity/Vol] 15 U/L <47 [facility] Serum or plasma albumin emma urement (mass/volume)Ordered By: Michelet Good on 12-02-2024 Albumin [Mass/Vol] 4.1 g/dL 3.4-4.8 [facility] Serum or plasma albumin/glob ulin mass ratioOrdered By: Michelet Good on 12-02-2024 Albumin/Globulin [Mass ratio] 1.0 {ratio} 0.9-2.4 [facility] Serum or plasma alkaline david sphatase measurementOrdered By: Michelet Good on 12-02-2024 ALP [Catalytic activity/Vol] 131 U/L High 40-129 [facility] Serum or plasma alpha 1 glob ulin measurement by electrophoresis (mass/volume)Ordered By: Michelet Good on 12-02-2024 Alpha 1 globulin Elph [Mass/Vol] 0.4 g/dL 0.0-0.4 [facility] Alpha 1 globulin Elph [Mass/Vol] 1.2 g/dL High 0.4-1.0 [facility] Serum or plasma beta globuli n measurement by electrophoresis (mass/volume)Ordered By: Michelet Good on 12-02-2024 Beta globulin Elph [Mass/Vol] 1.2 g/dL 0.7-1.3 [facility] Serum or plasma calcium emma urement (mass/volume)Ordered By: Michelet Good on 12-02-2024 Calcium [Mass/Vol] 10.7 mg/dL 7.6-11.0 [facility] Serum or plasma gamma globul in measurement by electrophoresis (mass/volume)Ordered By: Michelet Good on 12-02-2024 Gamma globulin Elph [Mass/Vol] 1.5 g/dL 0.4-1.8 [facility] Serum or plasma immunoelectr ophoresis interpretation (nominal result)Ordered By: Michelet Good on 12-02-2024 Interpretation IEP [Interp] Comment High . [facility] Comment on above: Immunofixation shows IgG monoclonal protein with lambdalight chain specificity. Serum or plasma protein emma urement (mass/volume)Ordered By: Michelet Good on 12-02-2024 Protein [Mass/Vol] 7.8 g/dL 6.0-8.5 [facility] Serum or plasma urea nitroge n measurement (mass/volume)Ordered By: Michelet Good on 12-02-2024 Urea nitrogen [Mass/Vol] 29 mg/dL High 4-19 [facility] Sodium levelOrdered By: Michelet Good on 12-02-2024 Sodium [Moles/Vol] 139 mmol/L 133-145 [facility] TSH DL <= 0.005 mIU/L QnOrde red By: Michelet Good on 12-02-2024 TSH Qn 1.310 uIU/mL 0.300-4.200 [facility] Thyroid Stim Hormone (TSH)on 12-02-2024 TSH 1.310 uIU/mL Normal 0.300-4.200 [facility] Comment on above: Performed By: #### L 101.9900, L501.6710, L500.4050, L501.9910, L400.2010, L3100.3425, L501.9520, L100.0100 ####[facility] [address] [place], [place], [phone]) Total proteinOrdered By: Shakira Good on 12-02-2024 Protein [Mass/Vol] 8.4 g/dL 5.9-8.4 [facility] Urinalysis, Routine (Dipstic k)on 12-02-2024 BILIRUBIN URINE Negative Normal Negative [facility] Comment on above: Order Comment: CLEAN CATCH Performed By: #### L 101.9900, L501.6710, L500.4050, L501.9910, L400.2010, L3100.3425, L501.9520, L100.0100 ####[facility] [address] [place], [address] GLUCOSE, UR Normal Normal Normal [facility] Comment on above: Order Comment: CLEAN CATCH Performed By: #### L 101.9900, L501.6710, L500.4050, L501.9910, L400.2010, L3100.3425, L501.9520, L100.0100 ####[facility] [address] [place], [address] KETONE UR 5 mg/dl Abnormal Negative [facility] Comment on above: Order Comment: CLEAN CATCH Performed By: #### L 101.9900, L501.6710, L500.4050, L501.9910, L400.2011, L3100.3425, L501.9520, L100.0100 ####[facility] [address] [place], [address] LEUK ESTERASE Negative Normal Negative [facility] Comment on above: Order Comment: CLEAN CATCH Performed By: #### L 101.9900, L501.6710, L500.4050, L501.9910, L400.2011, L3100.3425, L501.9520, L100.0100 ####[facility] [address] [place], [place], [phone] OCCULT BLOOD-UR Negative Normal Negative [facility] Comment on above: Order Comment: CLEAN CATCH Performed By: #### L 101.9900, L501.6710, L500.4050, L501.9910, L400.2010, L3100.3425, L501.9520, L100.0100 ####[facility] [address] [place], [place], [phone]) pH UR 5.0 Normal 5.0 - 8.0 [facility] Comment on above: Order Comment: CLEAN CATCH Performed By: #### L 101.9900, L501.6710, L500.4050, L501.9910, L400.2010, L3100.3425, L501.9520, L100.0100 ####[facility] [address] [place], [place], [phone]) PROT DIPSTX 15 mg/dl Abnormal Negative [facility] Comment on above: Order Comment: CLEAN CATCH Performed By: #### L 101.9900, L501.6710, L500.4050, L501.9910, L400.2011, L3100.3425, L501.9520, L100.0100 ####[facility] [address] [place], [address] SP.GR. DIPSTX 1.020 Normal 1.002-1.030 [facility] Comment on above: Order Comment: CLEAN CATCH Performed By: #### L 101.9900, L501.6710, L500.4050, L501.9910, L400.2011, L3100.3425, L501.9520, L100.0100 ####[facility] [address] [place], [address] UROBILI Normal Normal Normal [facility] Comment on above: Order Comment: CLEAN CATCH Performed By: #### L 101.9900, L501.6710, L500.4050, L501.9910, L400.2011, L3100.3425, L501.9520, L100.0100 ####[facility] [address] [place], [address] Urine clarityOrdered By: Shakira Good on 12-02-2024 Clarity (U) Clear Normal Clear [facility] Comment on above: Order Comment: CLEAN CATCH Performed By: #### L 101.9900, L501.6710, L500.4050, L501.9910, L400.2010, L3100.3425, L501.9520, L100.0100 ####[facility] [address] [place], [address] Urine color determinationOrd ered By: Michelet Good on 12-02-2024 Color (U) Straw Normal Yellow [facility] Comment on above: Order Comment: CLEAN CATCH Performed By: #### L 101.9900, L501.6710, L500.4050, L501.9910, L400.2010, L3100.3425, L501.9520, L100.0100 ####[facility] [address] [place], [address] Urine glucose detectionOrder ed By: Michelet Good on 12-02-2024 Glucose Ql (U) Normal mg/dl Normal [facility] Urine leukocyte esterase det ection by dipstickOrdered By: Michelet Good on 12-02-2024 Leukocyte esterase Test strip Ql (U) Negative Negative [facility] Urine nitrite test by dipsti ckOrdered By: Michelet Good on 12-02-2024 Nitrite Ql (U) Negative Normal Negative [facility] Comment on above: Order Comment: CLEAN CATCH Performed By: #### L 101.9900, L501.6710, L500.4050, L501.9910, L400.2011, L3100.3425, L501.9520, L100.0100 ####[facility] [address] [place], [place], [id number] Urine pHOrdered By: Michelet bear on 12-02-2024 pH (U) 5.0 [pH] 5.0 - 8.0 [facility] Urine specific gravity measu rementOrdered By: Michelet Good on 12-02-2024 Specific gravity (U) [Rel density] 1.020 1.002-1.030 [facility] Urine urobilinogen measureme ntOrdered By: Michelet Good on 12-02-2024 Urobilinogen Ql (U) Normal mg/dl Normal [facility] White blood cell (WBC) count Ordered By: Michelet Good on 12-02-2024 WBC (Bld) [#/Vol] 7.8 10*3/uL 4.4-11.0 [facility] .Auto Diffon 07-23-2024 Basophil, Absolute 0.0 10 3/mcL Normal 0.0-0.2 [facility] Comment on above: Performed By: #### M DW, BMP, ADIFF, CBC, ANEU, GFR, TROPHS #### [id number] [place], [place] [address] Basophils/100 WBC (Bld) 0.3 % Normal 0.0-2.5 [facility] Comment on above: Performed By: #### M DW, BMP, ADIFF, CBC, ANEU, GFR, TROPHS #### [address] [address] Eosinophil, Absolute 0.2 10 3/mcL Normal 0.0-0.7 [facility] Comment on above: Performed By: #### M DW, BMP, ADIFF, CBC, ANEU, GFR, TROPHS #### [address] [address] Eosinophils/100 WBC (Bld) 3.3 % Normal 0.0-7.0 [facility] Comment on above: Performed By: #### M DW, BMP, ADIFF, CBC, ANEU, GFR, TROPHS #### [address] [address] Lymphocyte, Absolute 0.6 10 3/mcL Low 0.9-4.3 [facility] Comment on above: Performed By: #### M DW, BMP, ADIFF, CBC, ANEU, GFR, TROPHS #### [address] [address] Lymphocytes/100 WBC (Bld) 9.0 % Low 20.0-40.0 [facility] Comment on above: Performed By: #### M DW, BMP, ADIFF, CBC, ANEU, GFR, TROPHS #### [address] [address] Monocyte, Absolute 0.5 10 3/mcL Normal 0.1-1.4 [facility] Comment on above: Performed By: #### M DW, BMP, ADIFF, CBC, ANEU, GFR, TROPHS #### [address] [address] Monocytes/100 WBC (Bld) 7.4 % Normal 2.0-13.0 [facility] Comment on above: Performed By: #### M DW, BMP, ADIFF, CBC, ANEU, GFR, TROPHS #### [address] [address] Neutrophils/100 WBC (Bld) 80.0 % High 50.0-75.0 [facility] Comment on above: Performed By: #### M DW, BMP, ADIFF, CBC, ANEU, GFR, TROPHS #### [address] [address] .GFRon 07-23-2024 Estimated Glomerular Filtration Rate 69 ml/min/1.73sqm Normal [facility] Comment on above: Result Comment: Stages [...] BMP, ADIFF, CBC, ANEU, GFR, TROPHS #### [address] [address] .MDWon 07-23-2024 Monocyte Distribution Width 17.36 Normal 0.00-20.00 [facility] Comment on above: Result Comment: For ED adult patients suspected of sepsis, MDW<=20.0 does not rule out sepsis or risk of sepsis Performed By: #### M DW, BMP, ADIFF, CBC, ANEU, GFR, TROPHS #### [address] [address] .NEUABSon 07-23-2024 Neutrophil, Absolute 5.0 10 3/mcL Normal 2.3-8.1 [facility] Comment on above: Performed By: #### M DW, BMP, ADIFF, CBC, ANEU, GFR, TROPHS #### [place] [address] BMPon 07-23-2024 BUN/Creatinine Ratio 15 ratio Normal 7-27 [facility] Comment on above: Performed By: #### M DW, BMP, ADIFF, CBC, ANEU, GFR, TROPHS #### [place] [address] Calcium [Mass/Vol] 9.2 mg/dL Normal 8.4-10.2 [facility] Comment on above: Performed By: #### M DW, BMP, ADIFF, CBC, ANEU, GFR, TROPHS #### [address] [address] Chloride [Moles/Vol] 104 mmol/L Normal 98-107 [facility] Comment on above: Performed By: #### M DW, BMP, ADIFF, CBC, ANEU, GFR, TROPHS #### [address] [address] CO2 [Moles/Vol] 30 mmol/L Normal 23-31 [facility] Comment on above: Performed By: #### M DW, BMP, ADIFF, CBC, ANEU, GFR, TROPHS #### [address] [address] Creatinine [Mass/Vol] 1.08 mg/dL Normal 0.70-1.30 [facility] Comment on above: Result Comment: Test ing performed on Siemens Dimension EXL analyzer using a modified kinetic Miguelina technique. Performed By: #### M DW, BMP, ADIFF, CBC, ANEU, GFR, TROPHS #### [address] [address] Electrolyte Balance 4.0 mEq/L Normal 4.0-15.0 [facility] Comment on above: Performed By: #### M DW, BMP, ADIFF, CBC, ANEU, GFR, TROPHS #### [address] [address] Glucose [Mass/Vol] 153 mg/dL High 83-110 [facility] Comment on above: Performed By: #### M DW, BMP, ADIFF, CBC, ANEU, GFR, TROPHS #### [address] [address] Potassium [Moles/Vol] 4.3 mmol/L Normal 3.5-5.1 [facility] Comment on above: Performed By: #### M DW, BMP, ADIFF, CBC, ANEU, GFR, TROPHS #### [address] [address] Sodium [Moles/Vol] 138 mmol/L Normal 136-145 [facility] Comment on above: Performed By: #### M DW, BMP, ADIFF, CBC, ANEU, GFR, TROPHS #### [place] [address] Urea nitrogen [Mass/Vol] 16 mg/dL Normal 7-18 [facility] Comment on above: Performed By: #### M DW, BMP, ADIFF, CBC, ANEU, GFR, TROPHS #### [place] [address] CBCon 07-23-2024 Erythrocyte distribution width (RBC) [Ratio] 14.1 % Normal 11.5-15.5 [facility] Comment on above: Performed By: #### M DW, BMP, ADIFF, CBC, ANEU, GFR, TROPHS #### [place] [address] Hematocrit (Bld) [Volume fraction] 39.6 % Low 40.0-52.0 [facility] Comment on above: Performed By: #### M DW, BMP, ADIFF, CBC, ANEU, GFR, TROPHS #### [place] [id number] Hgb 13.5 G/dL Normal 13.0-17.5 [facility] Comment on above: Performed By: #### M DW, BMP, ADIFF, CBC, ANEU, GFR, TROPHS #### [address] [address] MCH (RBC) [Entitic mass] 30.5 pg Normal 27.0-33.0 [facility] Comment on above: Performed By: #### M DW, BMP, ADIFF, CBC, ANEU, GFR, TROPHS #### [place] [address] MCHC 34.0 G/dL Normal 32.0-36.0 [facility] Comment on above: Performed By: #### M DW, BMP, ADIFF, CBC, ANEU, GFR, TROPHS #### [address] [address] MCV (RBC) [Entitic vol] 89.7 fL Normal 81.0-100.0 [facility] Comment on above: Performed By: #### M DW, BMP, ADIFF, CBC, ANEU, GFR, TROPHS #### [place] [id number] Platelet 288 10 3/mcL Normal 150-450 [facility] Comment on above: Performed By: #### M DW, BMP, ADIFF, CBC, ANEU, GFR, TROPHS #### [place] [id number] Platelet mean volume (Bld) [Entitic vol] 7.2 fL Normal 6.4-10.5 [facility] Comment on above: Performed By: #### M DW, BMP, ADIFF, CBC, ANEU, GFR, TROPHS #### [place] [id number] RBC 4.41 10 6/mcL Low 4.50-6.00 [facility] Comment on above: Performed By: #### M DW, BMP, ADIFF, CBC, ANEU, GFR, TROPHS #### [address] [address] WBC 6.2 10 3/mcL Normal 4.5-10.8 [facility] Comment on above: Performed By: #### M DW, BMP, ADIFF, CBC, ANEU, GFR, TROPHS #### [address] [address] [address] HEAD OR BRAIN W/O CONTRAS Ton [...] 9:25:53 AM Ordering Provider: MARK Jean Baptiste [facility]ATORYOrdered By: Wilbert Farooq on 07-23-2024 [...] above: Interpretive Data: T esting performed on [employer] EXL analyzer using a modified kinetic Miguelina [...] ng/L Male: 0-76 ng/L Testing performed on Sproxil using a homogeneous sandwich chemiluminescent immunoassay based on GuiaBolso technology. Urea nitrogen [Mass/Vol] 16 mg/dL Normal [...] Sensitivity Troponin I 42 ng/L Normal 0-76 [facility] Comment on above: Order Comment: hemol yzed Result Comment: High Sensitive Troponin I Reference Ranges: Female: 0-51 ng/L Male: 0-76 ng/L Testing performed on Sproxil using a homogeneous sandwich chemiluminescent immunoassay based on GuiaBolso technology. Performed By: #### M DW, BMP, ADIFF, CBC, ANEU, GFR, TROPHS #### [place] [id number] UAon 07-23-2024 Color (U) Yellow Normal [facility] Comment on above: Performed By: #### U A #### [place] [address] Glucose (U) [Mass/Vol] Negative Normal Negative [facility] Comment on above: Performed By: #### U A #### [address] [address] Ketones Ql (U) Negative Normal Negative [facility] Comment on above: Performed By: #### U A #### [address] [address] UA Appear Clear Normal Clear [facility] Comment on above: Performed By: #### U A #### [place] [id number] UA Blood Negative Normal Negative [facility] Comment on above: Performed By: #### U A #### [address] [address] UA Leuk Est Negative Normal Negative [facility] Comment on above: Performed By: #### U A #### [place] [id number] UA Nitrite Negative Normal Negative [facility] Comment on above: Performed By: #### U A #### [place] [id number] UA pH 6.5 Normal 5.0 - 8.0 [facility] Comment on above: Performed By: #### U A #### [place] [address] UA Protein Negative Normal Negative [facility] Comment on above: Performed By: #### U A #### [place] [address] UA Spec Grav 1.020 Normal 1.015-1.025 [facility] Comment on above: Performed By: #### U A #### [place] [address] UA Specimen Type Clean Catch Normal [facility] Comment on above: Performed By: #### U A #### [place] [address] UA Urobilinogen 0.2 E.U./dL Normal 0.2-1.0 [facility] Comment on above: Performed By: #### U A #### [place] [address] Urobilinogen (U) [Mass/Vol] Negative Normal Negative [facility] Comment on above: Performed By: #### U A #### [place] [id number] Urgent Care Visit Reporton 0 06-05-2024 Urgent Care Visit Report [facility] [address] , [address] [place] [address] OFFICE VISIT Date of Service: 06/05/24 MR#: [id number] Acct: [id number] Name: JUJU CACERES Rep #: [id number] : 1945 Provider: GIRMA Ashley Age/Sex: 78/M Location: 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 Normal [facility] Vital Signs Date Time Vital Sign Value Performing Clinician Facility 03-14-2025 11:46-0400 Body temperature 97 [degF] Dr. Michelet Good DO Work Phone: [facility] 03-14-2025 11:46-0400 Diastolic blood pressure 57 mm[Hg] Dr. Michelet Good DO Work Phone: [facility] 03-14-2025 11:46-0400 Heart rate 92 /min Dr. Michelet Good DO Work Phone: [facility] 03-14-2025 11:46-0400 Respiratory rate 16 /min Dr. Michelet Good DO Work Phone: [facility] 03-14-2025 11:46-0400 SaO2% (BldA) [Mass fraction] 98 % Dr. Michelet Good DO Work Phone: [facility] 03-14-2025 11:46-0400 Systolic blood pressure 116 mm[Hg] Dr. Michelet Good DO Work Phone: [facility] 03-14-2025 09:29-0400 Body height 167.[address] Michelet Good DO Work Phone: [facility] 03-14-2025 09:29-0400 Body weight 60.[address] Michelet Good DO Work Phone: [facility] 03-14-2025 07:55-0400 Body mass index (BMI) [Ratio] 21.5 kg/m2 Dr. Michelet Good DO Work Phone: [facility] 03-14-2025 07:55-0400 Body temperature 98.4 [degF] Dr. Michelet Good DO Work Phone: [facility] 03-14-2025 07:55-0400 Body weight 60.[address] Michelet Good DO Work Phone: [facility] 03-14-2025 07:55-0400 Diastolic blood pressure 80 mm[Hg] Dr. Michelet Good DO Work Phone: [facility] 03-14-2025 07:55-0400 Heart rate 103 /min Dr. Michelet Good DO Work Phone: [facility] 03-14-2025 07:55-0400 Respiratory rate 18 /min Dr. Michelet Good DO Work Phone: [facility] 03-14-2025 07:55-0400 SaO2% (BldA) [Mass fraction] 100 % Dr. Michelet Good DO Work Phone: [facility] 03-14-2025 07:55-0400 Systolic blood pressure 126 mm[Hg] Dr. Michelet Good DO Work Phone: [facility] 03-10-2025 09:30-0400 Body mass index (BMI) [Ratio] 20.7 kg/m2 Dr. Michelet Good DO Work Phone: [facility] 03-10-2025 09:30-0400 Body temperature 98.2 [degF] Dr. Michelet Good DO Work Phone: [facility] 03-10-2025 09:30-0400 Body weight 58.[address] Michelet Good DO Work Phone: [facility] 03-10-2025 09:30-0400 Diastolic blood pressure 71 mm[Hg] Dr. Michelet Good DO Work Phone: [facility] 03-10-2025 09:30-0400 Heart rate 89 /min Dr. Michelet Good DO Work Phone: [facility] 03-10-2025 09:30-0400 Respiratory rate 18 /min Dr. Michelet Good DO Work Phone: [facility] 03-10-2025 09:30-0400 SaO2% (BldA) [Mass fraction] 99 % Dr. Michelet Good DO Work Phone: [facility] 03-10-2025 09:30-0400 Systolic blood pressure 115 mm[Hg] Dr. Michelet Good DO Work Phone: [facility] 03-02-2025 10:02-0400 Body height 167.[address] Michelet Good DO Work Phone: [facility] 03-02-2025 10:02-0400 Body mass index (BMI) [Ratio] 21.2 kg/m2 Dr. Michelet Good DO Work Phone: [facility] 03-02-2025 10:02-0400 Body weight 59.[address] Michelet Good DO Work Phone: [facility] 03-02-2025 09:56-0400 Body temperature 97.8 [degF] Dr. Michelet Good DO Work Phone: [facility] 03-02-2025 09:56-0400 Diastolic blood pressure 61 mm[Hg] Dr. Michelet Good DO Work Phone: [facility] 03-02-2025 09:56-0400 Heart rate 75 /min Dr. Michelet Good DO Work Phone: [facility] 03-02-2025 09:56-0400 Respiratory rate 18 /min Dr. Michelet Good DO Work Phone: [facility] 03-02-2025 09:56-0400 SaO2% (BldA) [Mass fraction] 98 % Dr. Michelet Good DO Work Phone: [facility] 03-02-2025 09:56-0400 Systolic blood pressure 105 mm[Hg] Dr. Michelet Good DO Work Phone: [facility] 02-24-2025 10:44-0400 Body mass index (BMI) [Ratio] 21.41 kg/m2 Rafael Joshua FURNITURE DESIGNER - ENDOSCOPY SPECIALTY TECHNICIAN Work Phone: [facility] 02-24-2025 10:44-0400 Body weight 60.15 kg Rafael Joshua FURNITURE DESIGNER - ENDOSCOPY SPECIALTY TECHNICIAN Work Phone: [facility] 02-24-2025 10:44-0400 Diastolic blood pressure 68 mm[Hg] Rafael Joshua FURNITURE DESIGNER - ENDOSCOPY SPECIALTY TECHNICIAN Work Phone: [facility] 02-24-2025 10:44-0400 Heart rate 74 /min Rafael Joshua FURNITURE DESIGNER - ENDOSCOPY SPECIALTY TECHNICIAN Work Phone: [facility] 02-24-2025 10:44-0400 Systolic blood pressure 126 mm[Hg] Rafael Joshua FURNITURE DESIGNER - ENDOSCOPY SPECIALTY TECHNICIAN Work Phone: [facility] 02-14-2025 11:33-0400 Body temperature 97.6 [degF] Dr. Michelet Good DO Work Phone: [facility] 02-14-2025 11:33-0400 Diastolic blood pressure 99 mm[Hg] Dr. Michelet Good DO Work Phone: [facility] 02-14-2025 11:33-0400 Heart rate 64 /min Dr. Michelet Good DO Work Phone: [facility] 02-14-2025 11:33-0400 Respiratory rate 18 /min Dr. Michelet Good DO Work Phone: [facility] 02-14-2025 11:33-0400 SaO2% (BldA) [Mass fraction] 100 % Dr. Michelet Good DO Work Phone: [facility] 02-14-2025 11:33-0400 Systolic blood pressure 137 mm[Hg] Dr. Michelet Good DO Work Phone: [facility] 02-14-2025 07:12-0400 Body mass index (BMI) [Ratio] 22.4 kg/m2 Dr. Michelet Good DO Work Phone: [facility] 02-14-2025 07:12-0400 Body weight 63.[address] Michelet Good DO Work Phone: [facility] 02-14-2025 07:01-0400 Body height 167.[address] Michelet Good DO Work Phone: [facility] 02-10-2025 12:00-0400 Body temperature 96.91 [degF] Freddy Ben DO Work Phone: [facility] 02-10-2025 12:00-0400 Diastolic blood pressure 63 mm[Hg] Freddy Ben DO Work Phone: [facility] 02-10-2025 12:00-0400 Heart rate 103 /min Freddy Ben DO Work Phone: [facility] 02-10-2025 12:00-0400 Respiratory rate 20 /min Freddy Ben DO Work Phone: [facility] 02-10-2025 12:00-0400 SaO2% (BldA) [Mass fraction] 100 % Freddy Ben DO Work Phone: [facility] 02-10-2025 12:00-0400 Systolic blood pressure 122 mm[Hg] Freddy Ben DO Work Phone: [facility] 02-08-2025 06:08-0400 Body height 167.6 cm Freddy Ben DO Work Phone: [facility] 02-08-2025 06:08-0400 Body mass index (BMI) [Ratio] 22.78 kg/m2 Freddy Ben DO Work Phone: [facility] 02-08-2025 06:08-0400 Body weight 64 kg Freddy Ben DO Work Phone: [facility] 02-04-2025 13:04-0400 Diastolic blood pressure 66 mm[Hg] Dr. Michelet Good DO Work Phone: [facility] 02-04-2025 13:04-0400 Heart rate 66 /min Dr. Michelet Good DO Work Phone: [facility] 02-04-2025 13:04-0400 Systolic blood pressure 125 mm[Hg] Dr. Michelet Good DO Work Phone: [facility] 02-04-2025 11:36-0400 Body height 167.[address] Michelet Good DO Work Phone: [facility] 02-04-2025 11:36-0400 Body mass index (BMI) [Ratio] 22.8 kg/m2 Dr. Michelet Good DO Work Phone: [facility] 02-04-2025 11:36-0400 Body temperature 96 [degF] Dr. Michelet Good DO Work Phone: [facility] 02-04-2025 11:36-0400 Body weight 64.[address] Michelet Good DO Work Phone: [facility] 02-04-2025 11:36-0400 Respiratory rate 14 /min Dr. Michelet Good DO Work Phone: [facility] 02-04-2025 11:36-0400 SaO2% (BldA) [Mass fraction] 99 % Dr. Michelet Good DO Work Phone: [facility] 02-01-2025 05:24-0400 Body mass index (BMI) [Ratio] 23.1 kg/m2 Dr. Michelet Good DO Work Phone: [facility] 02-01-2025 05:24-0400 Body temperature 97.2 [degF] Dr. Michelet Good DO Work Phone: [facility] 02-01-2025 05:24-0400 Body weight 64.[address] Michelet Good DO Work Phone: [facility] 02-01-2025 05:24-0400 Diastolic blood pressure 80 mm[Hg] Dr. Michelet Good DO Work Phone: [facility] 02-01-2025 05:24-0400 Heart rate 107 /min Dr. Michelet Good DO Work Phone: [facility] 02-01-2025 05:24-0400 Respiratory rate 18 /min Dr. Michelet Good DO Work Phone: [facility] 02-01-2025 05:24-0400 SaO2% (BldA) [Mass fraction] 97 % Dr. Michelet Good DO Work Phone: [facility] 02-01-2025 05:24-0400 Systolic blood pressure 143 mm[Hg] Dr. Michelet Good DO Work Phone: [facility] 01-21-2025 15:00-0400 Body temperature 98.1 [degF] Dr. Michelet Good DO Work Phone: [facility] 01-21-2025 15:00-0400 Diastolic blood pressure 73 mm[Hg] Dr. Michelet Good DO Work Phone: [facility] 01-21-2025 15:00-0400 Heart rate 94 /min Dr. Michelet Good DO Work Phone: [facility] 01-21-2025 15:00-0400 Respiratory rate 18 /min Dr. Michelet Good DO Work Phone: [facility] 01-21-2025 15:00-0400 SaO2% (BldA) [Mass fraction] 96 % Dr. Michelet Good DO Work Phone: [facility] 01-21-2025 15:00-0400 Systolic blood pressure 136 mm[Hg] Dr. Michelet Good DO Work Phone: [facility] 01-21-2025 09:00-0400 Inhaled oxygen flow rate 2 L/min Dr. Michelet Good DO Work Phone: [facility] 01-19-2025 10:41-0400 Body height 167.[address] Michelet Good DO Work Phone: [facility] 01-19-2025 10:41-0400 Body weight [address] Michelet Good DO Work Phone: [facility] 01-18-2025 12:07-0400 Body mass index (BMI) [Ratio] 24.5 kg/m2 Dr. Michelet Good DO Work Phone: [facility] 01-18-2025 11:58-0400 Heart rate 88 /min Dr. Michelet Good DO Work Phone: [facility] 01-18-2025 11:58-0400 Respiratory rate 16 /min Dr. Michelet Good DO Work Phone: [facility] 01-18-2025 11:58-0400 SaO2% (BldA) [Mass fraction] 98 % Dr. Michelet Good DO Work Phone: [facility] 01-18-2025 10:02-0400 Diastolic blood pressure 86 mm[Hg] Dr. Michelet Good DO Work Phone: [facility] 01-18-2025 10:02-0400 Systolic blood pressure 154 mm[Hg] Dr. Michelet Good DO Work Phone: [facility] 01-18-2025 07:12-0400 Body temperature 98 [degF] Dr. Michelet Good DO Work Phone: [facility] 01-18-2025 05:17-0400 Body height 167.[address] Michelet Good DO Work Phone: [facility] 01-18-2025 05:17-0400 Body mass index (BMI) [Ratio] 24.7 kg/m2 Dr. Michelet Good DO Work Phone: [facility] 01-18-2025 05:17-0400 Body weight 69.[address] Michelet Good DO Work Phone: [facility] 01-06-2025 10:56-0400 Diastolic blood pressure 87 mm[Hg] Freddy Contreras DO Work Phone: [facility] 01-06-2025 10:56-0400 Heart rate 91 /min Freddy Negroer DO Work Phone: [facility] 01-06-2025 10:56-0400 Systolic blood pressure 158 mm[Hg] Freddy Contreras DO Work Phone: [facility] 01-06-2025 10:53-0400 Body height 167.6 cm Freddy Ben DO Work Phone: [facility] 01-06-2025 10:53-0400 Body mass index (BMI) [Ratio] 24.69 kg/m2 Freddy Negroer DO Work Phone: [facility] 01-06-2025 10:53-0400 Body weight 69.4 kg Freddy Contreras DO Work Phone: [facility] 12-30-2024 08:57-0400 Diastolic blood pressure 77 mm[Hg] Dr. Michelet Good DO Work Phone: [facility] 12-30-2024 08:57-0400 Heart rate 107 /min Dr. Michelet Good DO Work Phone: [facility] 12-30-2024 08:57-0400 Respiratory rate 18 /min Dr. Michelet Good DO Work Phone: [facility] 12-30-2024 08:57-0400 Systolic blood pressure 123 mm[Hg] Dr. Michelet Good DO Work Phone: [facility] 12-30-2024 08:26-0400 Body temperature 98 [degF] Dr. Michelet Good DO Work Phone: [facility] 12-27-2024 07:14-0400 Body height 172.[address] Michelet Good DO Work Phone: [facility] 12-27-2024 07:14-0400 Body mass index (BMI) [Ratio] 23.6 kg/m2 Dr. Michelet Good DO Work Phone: [facility] 12-27-2024 07:14-0400 Body temperature 97.4 [degF] Dr. Michelet Good DO Work Phone: [facility] 12-27-2024 07:14-0400 Body weight 70.[address] Michelet Good DO Work Phone: [facility] 12-27-2024 07:14-0400 Diastolic blood pressure 85 mm[Hg] Dr. Michelet Good DO Work Phone: [facility] 12-27-2024 07:14-0400 Heart rate 102 /min Dr. Michelet Good DO Work Phone: [facility] 12-27-2024 07:14-0400 Respiratory rate 18 /min Dr. Michelet Good DO Work Phone: [facility] 12-27-2024 07:14-0400 SaO2% (BldA) [Mass fraction] 95 % Dr. Michelet Good DO Work Phone: [facility] 12-27-2024 07:14-0400 Systolic blood pressure 160 mm[Hg] Dr. Michelet Good DO Work Phone: [facility] 07-23-2024 11:11-0500 Diastolic Blood Pressure Non-Invasive 70 mm[Hg] DR MARK GORE MD [facility] 07-23-2024 11:11-0500 Heart rate 72 /min DR MARK GORE MD [facility] 07-23-2024 11:11-0500 Respiratory rate 16 /min DR MARK GORE MD [facility] 07-23-2024 11:11-0500 Systolic Blood Pressure Non-Invasive 118 mm[Hg] DR MARK GORE MD [facility] 07-23-2024 10:13-0500 Diastolic Blood Pressure Non-Invasive 71 mm[Hg] DR MARK GORE MD [facility] 07-23-2024 10:13-0500 Heart rate 85 /min DR MARK GORE MD [facility] 07-23-2024 10:13-0500 Respiratory rate 16 /min DR MARK GORE MD [facility] 07-23-2024 10:13-0500 Systolic Blood Pressure Non-Invasive 123 mm[Hg] DR MARK GORE MD [facility] 07-23-2024 08:05-0500 Body temperature 97.16 [degF] DR MARK GORE MD [facility] 07-23-2024 08:05-0500 Body weight 77.[address] MARK GORE MD [facility] 07-23-2024 08:05-0500 Diastolic Blood Pressure Non-Invasive 68 mm[Hg] DR MARK GORE MD [facility] 07-23-2024 08:05-0500 Heart rate 73 /min DR MARK GORE MD [facility] 07-23-2024 08:05-0500 Respiratory rate 14 /min DR MARK GORE MD [facility] 07-23-2024 08:05-0500 Systolic Blood Pressure Non-Invasive 122 mm[Hg] DR MARK GORE MD [facility] Encounters Encounter Date Encounter Type Care Provider Facility Start: 03-20-2025 End: 03-20-2025 Emergency department patient visit [facility] Facility:[facility] Start: 03-17-2025 ambulatory [facility] Facility: [facility] Start: 03-14-2025 End: 03-14-2025 ambulatory [facility] Facility:[facility] Start: 03-10-2025 End: 03-10-2025 Dr. Parrish Miranda MD -[facility] Work Phone: Start: 03-10-2025 End: 03-10-[address] Michelet Good DO Work Phone: -[facility] Start: 03-03-2025 Encounter for other preprocedural examination [facility] Start: 03-03-2025 Dr. Sahil Stewart MD -[facility] Start: 03-03-2025 ambulatory [facility] Facility: [facility] Start: 03-02-[address] Parrish Miranda MD -[facility] Start: 03-02-2025 End: 03-02-[address] Parrish Miranda MD -[facility] Work Phone: Start: 03-02-2025 End: 03-02-2025 Dr. Parrish Miranda MD -[facility] Work Phone: Start: 03-02-2025 End: 03-02-[address] Michelet Good DO Work Phone: -[facility] Start: 02-24-2025 End: 02-24-2025 ambulatory RAFAEL JOSHUA [facility] Start: 02-24-2025 End: 02-24-2025 Postop follow up visit related to original px Rafael Joshua FURNITURE DESIGNER - ENDOSCOPY SPECIALTY TECHNICIAN Work Phone: [facility] Cardiovascular Thoracic Surgery - [place] Comment on above: Mediastinal mass (Pr imary Dx); Pleural effusion Start: 02-15-2025 End: 02-15-[address] Michelet Good DO Work Phone: -[facility] Mara Aviles [facility] Start: 02-15-2025 End: 02-15-[address] [facility]let Good [facility] Start: 02-15-2025 End: 02-15-2025 Dr. Michelet Good DO -Laboratory [place] Start: 02-15-2025 End: 02-15-2025 ambulatory Michelet Good Facility:[facility] Start: 02-14-2025 End: 02-14-2025 Dr. Ed Parada DO -Emergency Department Work Phone: Start: 02-14-2025 End: 02-14-2025 Emergency department patient visit Dr. Michelet Good DO Work Phone: -Emergency Department Work Phone: Start: 02-08-2025 Encounter for other preprocedural examination [facility] Start: 02-08-2025 End: 02-10-2025 Encounter for other preprocedural examination [facility] Start: 02-08-2025 End: 02-10-2025 Evaluation and management of inpatient Freddy Contreras DO Work Phone: [facility] Cardiac Thoracic Vascular Intensive Care Unit CTV ICU T1 Comment on above: Preop testing (Prima ry Dx); Other diseases of mediastinum, not elsewhere classified Start: 02-08-2025 End: 02-10-2025 Patient encounter status Freddy Contreras DO Work Phone: [facility] Start: 02-04-2025 End: 02-04-[address] Michelet Good DO -Medical Out Work Phone: Start: 02-04-2025 End: 02-04-2025 Dr. Michelet Good DO -Medical Out Work Phone: Start: 02-04-2025 End: 02-04-[address] Michelet Good DO Work Phone: -Medical Out Start: 02-03-2025 End: 02-03-2025 Subsequent hospital visit by physician [facility] Xr Exam Room 1 [facility] X-Ray Comment on above: Arrived Start: 02-03-2025 End: 02-03-2025 ambulatory ABDI [facility] Start: 02-02-2025 End: 02-02-[address] Michelet Good DO Work Phone: -Laboratory [place] [facility] Start: 02-02-2025 End: 02-02-[address] Michelet CHILDERSLaboratory [place] [facility]iles [facility] Start: 02-02-2025 End: 02-02-2025 Dr. Michelet CHILDERSLaboratory [place] [facility] Start: 02-01-2025 End: 02-01-2025 Patient encounter procedure BIOMETRICS EXPERIMENTALIST [facility] Work Phone: Start: 02-01-2025 End: 02-01-2025 BIOMETRICS EXPERIMENTALIST [facility] Work Phone: Start: 02-01-2025 End: 02-02-[address] Michelet Good DO Work Phone: [facility] Start: 01-21-2025 Non-patient / Non-visit [...] Phone: Start: 01-18-2025 Dr. Michelet goetz DO -[facility] Work Phone: Start: 01-18-2025 ambulatory Harry Guzman ity:[facility] Start: 01-18-2025 End: 01-21-2025 Evaluation and management of inpatient Dr. Michelet Donovan DO -Medical Surgical 3 Work Phone: Start: 01-18-2025 End: 01-21-2025 Dr. Michelet Donovan DO -Medical Surgical 3 Work Phone: Start: 01-06-2025 End: 01-06-2025 Office consultation new/estab patient 60 min Freddy Negroer Work Phone: [facility] Cardiovascular Thoracic Surgery - [place] Comment on above: Mediastinal mass (Pr imary Dx); Weight loss, non-intentional Start: 01-06-2025 End: 01-06-2025 ambulatory FREDDY [facility] Start: 01-03-2025 ambulatory Michelet Good Facility: [facility] Start: 12-30-2024 End: 12-30-[address] Domenico Garcia DO -Ultrasound [facility] Work Phone: Start: 12-30-2024 End: 12-30-2024 Dr. Domenico Garcia DO -Ultrasound [facility] Work Phone: Start: 12-30-2024 End: 12-30-2024 ambulatory Domenico Garcia Facility:[facility] Start: 12-27-2024 End: 12-27-[address] Michelet Good DO Work Phone: -Laboratory Start: 12-27-2024 End: 12-27-[address] Domenico Garcia DO -Laboratory Work Phone: Start: 12-27-2024 End: 12-27-2024 Dr. Domenico Garcia DO -Laboratory Work Phone: Start: 12-27-2024 End: 12-27-[address] Domenico Garcia DO -[facility] Work Phone: Start: 12-27-2024 End: 12-27-2024 Dr. Domenico Garcia DO -[facility] Work Phone: Start: 12-27-2024 End: 12-27-[address] Michelet Good DO Work Phone: -[facility] Start: 12-27-2024 End: 12-27-2024 ambulatory Domenico Garcia Facility:[facility] Start: 12-21-2024 End: 12-21-[address] MICHELET GOOD DO Facility:[facility] Start: 12-21-2024 End: 12-21-[address] MICHELET GOOD DO [facility] Start: 12-04-2024 ambulatory Michelet Good Facility: [facility] Start: 12-02-2024 End: 12-02-[address] Michelet Good DO Work Phone: -Laboratory [place] [facility] Start: 12-02-2024 End: 12-02-[address] Michelet Good DO -Laboratory [place] [facility] Start: 12-02-2024 End: 12-02-2024 Dr. Michelet Good DO -Laboratory [place] [facility] Start: 12-02-2024 End: 12-02-2024 ambulatory Michelet Good Facility:[facility] Start: 07-23-2024 End: 07-23-2024 Emergency department patient visit DR MARK GORE MD [facility] Start: 06-05-2024 End: 06-05-2024 ambulatory [...] Start: 03-02-2025 Serum inorganic phosphate measurement Dr. Michelet Good DO Work Phone: Start: 03-02-2025 Total iron binding capacity measurement Dr. Michelet Good DO Work Phone: Start: 02-15-[address] Michelet Good DO Work Phone: Comment on above: Test Ordered: [id number] PTHrP (PTH-Related Peptide)PTHrP (PTH-Related Peptide) <2.0 pmol/L Reference Range: .This test was developed and its performance characteristicsdetermined by [employer]. It has not been cleared or approvedby the Food and Drug Administration.Reference Range:All Ages: <2.0The PTHrP assay should not be used to exclude cancer orscreen tumor patients for humoral hypercalcemia ofmalignancy (HHM). The results should always be assessed inconjunction with the patient's medical history, clinicalexamination, and other findings. If test results areclinically discordant, please contact the laboratory.Performed at: [facility] [id number] [place], [place] [id number] Director: Anabel Cheung MD, Phone: [phone] at: [facility] [employer] [id number] Director: Torito Green PhD, Phone: [phone] Start: 02-15-2025 Serum inorganic phosphate measurement Dr. [...] Start: 02-10-2025 Basic metabolic panel calcium total Ruhci Manley MD Work Phone: Start: 02-09-2025 Basic [...] Basic metabolic panel calcium total Abdi Delcid FURNITURE DESIGNER - ENDOSCOPY SPECIALTY TECHNICIAN Work Phone: Start: 02-03-2025 Antibody screen RAFAEL JOSHUA Comment on above: Performed By: #### [id number] ####Medical Di daniel: ADITYA ESCALERA ([id number])[facility] ([address] Start: 01-21-[address] [...] 01-18-2025 Urine lambda light chain measurement Dr. Micheelt Good DO Work Phone: Start: 01-18-2025 Vitamin [...] Phone: Start: 12-02-2024 Albumin/Globulin ratio Dr. Michelet Good DO Work Phone: Start: 12-02-2024 Immunoglobulin [...] Detail Author Start: 03-24-2025 Lactate dehydrogenase measurement [facility] Start: 03-14-2025 Copper [Moles/volume] in Serum or Plasma [facility] Start: 03-14-2025 Zinc [Mass/volume] in Serum or Plasma [facility] Start: 03-14-2025 End: 03-14-2025 -[facility] Work Phone: Start: 03-08-2025 Positron emission tomography with computed tomography [facility] Start: 03-02-2025 [id number]-[id number] [Mass/volume] in Serum or Plasma [facility] Start: 03-02-2025 Erythropoietin (EPO) [Units/volume] in Serum or Plasma [facility] Start: 02-24-2025 End: 02-24-2026 XR Chest 2 Views XR chest 2 views Imaging Routine Pleural effusion Expected: 02/24/2025 (Approximate), Expires: 02/24/2026 [facility] Work Phone: Comment on above: Expected: 02/24/2025 (Approximate), Expi res: 02/24/2026 Start: 02-24-2025 End: 02-24-2025 Patient encounter procedure 02/24/2025 10:30 AM EDT Office Visit [facility] Cardi[facility] Thoracic Surgery - [place] [address] [place] [phone] Rafael Joshua, FURNITURE DESIGNER - ENDOSCOPY SPECIALTY TECHNICIAN [address] [place] [address] [facility] Cardiovascular Thoracic Surgery [facility] Start: 02-14-2025 [facility] Start: 02-08-2025 End: 02-08-2025 Admission to same day surgery center 02/08/2025 7:30 AM EDT - 02/08/2025 11:30 AM EDT Surgery [facility] MAIN OR [address] [place] [phone] Freddy Contreras DO [address] [place] [id number] LEFT VIDEO-ASSISTED THORACOSCOPIC SURGERY [98775 (CPT )] [facility] Comment on above: LEFT VIDEO-ASSISTED THORACOSCOPIC SURGER Y [56162 (CPT )] Start: 02-08-2025 End: 02-08-2025 Anesthesia consultation 02/08/2025 7:30 AM EDT Anesthesia Event [facility] [address] [facility] [place] [phone] Abdi Delcid, FURNITURE DESIGNER - ENDOSCOPY SPECIALTY TECHNICIAN [address] [place] [address] [facility] Start: 02-08-2025 End: 02-08-2025 Mediastinoscopy includes mediastinal mass biopsy ROBOTIC (XI) ASSISTED MEDIASTINOSCOPY Other diseases of mediastinum, not elsewhere classified 02/08/2025 7:30 AM EDT [facility] Start: 02-08-2025 Subsequent hospital visit by physician 02/08/2025 7:30 AM EDT Hospital Encounter [facility] MA[facility] OR [address] [place] [phone] Freddy Contreras DO [address] [place] [phone] [facility] OR Start: 02-08-2025 End: 02-08-2025 Thoracoscopy w/lobectomy single lobe ROBOTIC (XI) LOBECTOMY, LUNG Other diseases of mediastinum, not elsewhere classified 02/08/2025 7:30 AM EDT [facility] Start: 02-04-2025 Intravenous infusion [facility] Start: 02-04-2025 Iv infusion therapy/prophylaxis /dx 1st to 1 hr THER/PROPH/DIAG IV INF INIT [facility] Start: 01-31-2025 COVID-19 Vaccine ( season) COVID-19 Vaccine ( season) [facility] Start: 01-31-2025 Influenza vaccination Influenza Vaccine (#1) [facility] Start: 01-21-2025 Patient discharge [facility] Start: 01-18-2025 Following clinical pathway protocol [facility] Start: 01-18-2025 Ambulation without limitation [facility] Start: 01-18-2025 Assessment of risk of venous thromboembolism [facility] Start: 01-18-2025 Insertion of catheter into peripheral vein [facility] Start: 01-18-2025 Providing care according to standard [facility] Start: 01-18-2025 Referral to family and consumer sciences professor [facility] Start: 01-18-2025 Parathyroid hormone measurement [facility] Start: 01-18-2025 Vitamin D, 1,25-dihydroxy measurement [facility] Start: 01-18-2025 Vitamin D, 25-hydroxy measurement [facility] Start: 01-18-2025 End: 01-18-2025 [facility] Start: 01-18-2025 Hospital admission, emergency, from emergency room, medical nature [facility] Start: 01-18-2025 Verification routine [facility] Start: 01-18-2025 Admission procedure [facility] Start: 01-18-2025 [facility] Start: 01-18-2025 Patient referral to dietitian [facility] Start: 12-30-2024 Anaerobic microbial culture Anaerobic Culture [facility] Start: 12-30-2024 Microbial culture, body fluid [facility] Start: 12-30-2024 Microscopic observation [Identifier] in Body fluid by Cyto stain [facility] Start: 12-30-2024 Patient discharge [facility] Start: 12-30-2024 Vital signs measurements [facility] Start: 06-02-2024 Medicare Advantage Annual Wellness Visit Medicare Advantage Annual Wellness Visit [facility] Start: 02-01-2024 COVID-19 Vaccine ( season) COVID-19 Vaccine ( season) [facility] Start: 08-15-2018 RSV Immunization for Adults (1 - 1-dose 75+ series) RSV Immunization for Adults (1 - 1-dose 75+ series) [facility] Start: 06-07-2010 Pneumococcal Vaccine: 50+ Years (2 of 2 - PCV) Pneumococcal Vaccine: 50+ Years (2 of 2 - PCV) [facility] Start: 06-08-2009 DTaP/Tdap/Td Vaccines (1 - Tdap) DTaP/Tdap/Td Vaccines (1 - Tdap) [facility] Start: 08-15-1993 Zoster Vaccines (1 of 2) Zoster Vaccines (1 of 2) [facility] Start: 1957 Depression Screening Depression Screening [facility] Start: 1945 Lipid panel Lipid Panel [facility] Calcium [Mass/volume ] in Serum or Plasma [facility] CBC W Auto Different ial panel - Blood [facility] Cell count and Differential panel - Body fluid [facility] Comprehensive metabo lic 2000 panel - Serum or Plasma [facility] Cytology report of B sariah fluid Cyto stain [facility] Cytology report of B [facility] fluid Cyto stain [facility] INR in Blood by Coagulation assay [facility] Calypso/lambda light c ayden ratio [facility] Lactate dehydrogenas e [Enzymatic activity/volume] in Body fluid by Pyruvate to lactate reaction [facility] Lactate dehydrogenas e measurement [facility] Lambda light chains. free [Mass/volume] in Serum or Plasma [facility] Microbial culture, b sariah fluid [facility] Microscopic observat ion [Identifier] in Body fluid by Cyto stain [facility] Partial thromboplast in time, activated [facility] Patient Education [facility] Work Phone: Platelets [#/volume] in Blood [facility] Protein [Mass/volume ] in Body fluid [facility] Protein [Mass/volume ] in Serum or Plasma [facility] Prothrombin time [facility] Tissue exam [facility] Work Phone: Comment on above: Release Upon Ordering for 1 Occurrences starting 02/08/2025, 1 completed Troponin T.cardiac [Mass/volume] in Serum or Plasma by High sensitivity method [facility] Ultrasonic guidance for thoracentesis [facility] Urate [Mass/volume] in Serum or Plasma [facility] Urine kappa light ch ain measurement [facility] XR Chest 2 Views XR chest 2 view s Imaging Routine Preop testing 02/03/2025 3:20 PM EDT [facility] Work Phone: XR Chest PA and Lateral [facility] Payers Date Payer Category Payer Private Health Insurance [id number] 2024 Self-pay 2023 Medicare HMO [employer] ember [id number] 2012 Private Health Insurance [id number] 1945 Unknown [id number] 2.16.840.1.474936.3.579.2. 627 1945 Unknown [id number] 2.16.840.1.224945.3.579.2. 627 Unknown [id number] 2.16.840.1.737811.3.579.2. 462 Unknown [id number] 2.16.840.1.358220.3.579.2. 462 Unknown [id number] 2.16.840.1.538026.3.579.2. 462 Unknown [id number] 2.16.840.1.540084.3.579.2. 462 Unknown [id number] 2.16.840.1.632051.3.579.2. 462 Unknown [id number] 2.16.840.1.319956.3.579.2. 462 Unknown [id number] 2.16.840.1.108962.3.579.2. 462 Unknown [id number] 2.16.840.1.928636.3.579.2. 462 Unknown [id number] 2.16.840.1.220144.3.579.2. 462 Unknown [id number] 2.16.840.1.624841.3.579.2. 462 Unknown [id number] 2.16.840.1.931045.3.579.2. 462 Unknown [id number] 2.16.840.1.328394.3.579.2. 462 Unknown [id number] 2.16.840.1.576038.3.579.2. 462 Unknown [id number] 2.16.840.1.264544.3.579.2. 462 Unknown [id number] 2.16.840.1.533526.3.579.2. 462 Unknown [id number] 2.16.840.1.539841.3.579.2. 462 Unknown [id number] 2.16.840.1.256835.3.579.2. 462 Unknown [id number] 2.16.840.1.534391.3.579.2. 462 Unknown [id number] 2.16.840.1.118563.3.579.2. 462 Unknown [id number] 2.16.840.1.924192.3.579.2. 462 Unknown [id number] 2.16.840.1.253894.3.579.2. 462 Unknown [id number] 2.16.840.1.850247.3.579.2. 462 Unknown [id number] 2.16.840.1.288614.3.579.2. 462 Unknown [id number] 2.16.840.1.030608.3.579.2. 462 Unknown [id number] 2.16840.1.700311.3.579.2. 462 Social History Date Type Detail Facility Tobacco smoking status [facility] Start: 1945 Sex Assigned At Male [facility] Start: 07-23-2024 End: 12-27-2024 Sex Male (finding) [facility] Tobacco smoking stat us NHIS Unknown if ever smoked [facility] Work Phone: Start: 12-27-2024 End: 02-16-2025 Tobacco smoking status NHIS Never smoked tobacco (finding) [facility] Start: 01-06-2025 End: 02-10-2025 Gender Identity Identifies as male gender (finding) [facility] Start: 01-06-2025 Tobacco use and exposure Smokeless tobacco non-user [facility] Start: 01-06-2025 End: 02-24-2025 Alcoholic beverage intake Lifetime non-drinker (finding) [facility] Start: 01-06-2025 End: 02-10-2025 History of Social function [facility] Start: 1945 Sex assigned at Not on file [facility] Has the [employer], [employer] acquired by [employer], or water [employer] threatened to shut off services in your home in past 12Mo No [facility] (I/We) worried [facility] (my/our) food would run out before (I/we) got money to buy more. Never true trgt.us In the past 12 month s, has lack of transportation kept you from medical appointments or from getting medications? No [facility] Goals Date Patient Goal Desired Activity /State Functional Status Date Assessment Result Facility 01-21-2025 Functional status Ambulates [facility] Work Phone: 07-23-2024 Functional Status Independent [facility] 07-23-2024 Functional Status Independent [facility] Mental Status Date Assessment Result Facility 03-03-2025 Cognitive function [facility] Work Phone: 02-04-2025 Cognitive function Voice/Name [facility] Work Phone: 01-21-2025 Cognitive function Voice/Name [facility] Work Phone: 12-30-2024 Cognitive function Awake;Alert;A ppropriate;Foll ows Commands [facility] Work Phone: 07-23-2024 Mental Status Orientation Oriented x 4 [facility] 07-23-2024 Mental Status [facility] Clinical Notes 07-23-2024 to 03-02-2025 CONNIE Hickman CNP - 02/24/2025 10:30 AM EDTJennifer Berger RRT - 02/10/2025 11:28 AM EDTMrachel Ramirez - 02/10/2025 11:09 AM Omer Goncalves MD - 02/10/2025 8:32 AM EDT Note Date & Type Note Facility 03-02-2025 Progress note [facility] 02-24-2025 History of Presen t illness Narrative Formatting of this note is different fro m the original. Images from the original note were not included. [facility] Medical Group: [facility] [employer] [facility] [address] [facility] [address] Dept: [phone] Dept Loc: [phone] Visit type: Established patient Reason for Visit: Post-op Assessment and Plan 1. Mediastinal mass 02/08/25: Dr. Contreras- Left thoracoscopy converted to left thoracotomy, mediastinal biopsy, drainage of pleural effusion, parietal pleural biopsy, mechanical pleurodesis -Obtain CXR, assess for new pleural effusion. Order placed. -Pathology discussed with patient and family by Dr. Contreras, aware from PCP appointment. -Appointment with [facility]. -Incisions healing well, no redness, warmth or drainage. Suture removed. -Pain tolerable with acetaminophen. Disposition: Follow up PRN. Patient verbalized understanding of plan and stated they would call if any questions or concerns arise. Treatment Team: PCP: MICHELET GOOD Subjective HPI: Juju Caceres is a 79 y.o. male referred by Dr. Garcia for mediastinal mass. 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 Please see [employer] report [id number] for High-Grade/Large B-Cell Lymphoma FISH ordered by Dr. Michelle Tolbert. Report has been scanned into the patient's chart. 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 Vitals: 02/24/25 1044 BP: 126/68 Pulse: [...] 125 mcg., Disp: , Rfl: fish oil ([place]-3) 500 MG capsule, Take 500 mg by [...] Shortness of breath documented in this encounter [facility] 02-14-2025 Discharge summary [facility] 02-14-2025 Radiology Diagnostic study note [facility] Imaging Services [address] [place], [place] [address] Abdomen/Pelvis without Cont MR#: [id number] Acct: [id number] Name: JUJU CACERES Rep #: [id number] : 1945 M 79 From: Meet De La Rosa MD PCP: Dr. Michelet Good, Status: REG ER Study:Abdomen/Pelvis without Cont Date of Exa m: 02/14/25 Exam# [id number] Ordering Dr: Ed Griffith DO PROCEDURE: ABDOMEN/PELVIS [...] Parada DO; Dr. Michelet Good DO ~ City Planning Teacher: Signed [facility] 02-10-2025 Note [facility] Respiratory Care Department Progress Note As part [...] in the care of this patient, [facility] 02-10-2025 History of Present illness Narrative [facility] Respiratory Care Department Progress Note As part [...] Ben Goncalves MD General Surgery PGY-3 Pager [phone] [1] acetaminophen, 1,000 mg, Oral, 3 times [...] VATS/thoracotomy mediastinal biopsy I personally performed a cfgs-rg-oabp diagnostic evaluation on this patient I agree [...] of 15 minutes were spent between the vumx-ja-mckk encounter, physical exam, reviewing the medical history, coordinating care, counseling/educating the patient, ordering medications/test/procedures, interpreting results and documenting in the patient's record on the day of the encounter. The patient was seen and examined independently and relevant data reviewed by myself. Lucero Contreras DO [facility] Cardiothoracic Surgery CTS Brief Note At patient [...] Ben Goncalves MD General Surgery PGY-3 Pager [phone] [1] acetaminophen, 1,000 mg, Oral, 3 times [...] biopsy; mechanical pleurodesis I personally performed a phux-ni-tjot diagnostic evaluation on this patient I agree [...] of 15 minutes were spent between the jcra-nv-bdex encounter, physical exam, reviewing the medical history, coordinating care, counseling/educating the patient, ordering medications/test/procedures, interpreting results and documenting in the patient's record on the day of the encounter. The patient was seen and examined independently and relevant data reviewed by myself. Lucero Contreras DO [facility] Cardiothoracic Surgery Images from the original note were not included. PHYSICAL THERAPY [facility] Name/MRN: Juju Caceres ([id number]) Date: 02/09/2025 PT orders received per [place] activity/mobility score. Patient currently with Gasper activity/mobility score greater than 2. Per therapy services guidelines, will discharge PT orders. Please place regular PT eval/treat orders if deemed appropriate. Shelli Solorzano PT documented in this encounter [facility] 02-10-2025 Patient's home Note Discussed Home Care [...] any other needs arise prior to DC. [facility] 02-10-2025 Miscellaneous Notes Discussed Home Care Services [...] (tbd) Barriers/Today we still Wait: Clinical stability, Commissions Analyst recommendations (comment), Symptomatic control Length of Stay [...] biopsy Mechanical pleurodesis Surgeon: Lucero Contreras DO Assistant Therapy Aide: Dilan Goncalves MD (PGY3) Anesthesia: General--Dr. Rojas [...] around the point of bleeding in a kyvhmm-ew-udzhw fashion which was successful and completely controlling [...] pad for mechanical pleurodesis. A single 28 Emirati chest tube was placed in a pleural [...] DO FACS Cardiothoracic Surgery Date: 02/08/2025 Location: [facility] OR Name: Juju Caceres, : 1945, Diagnosis Pre-op Diagnosis * Other diseases of mediastinum, not elsewhere classified [J98.59] Post-op Diagnosis * Other diseases of mediastinum, not elsewhere classified [J98.59] Procedures LEFT VIDEO-ASSISTED THORACOSCOPIC SURGERY 09380 - [place] THORACOSCOPY W/LOBECTOMY SINGLE LOBE MEDIASTINOSCOPY WITH BIOPSY 14556 - UT MEDIASTINOSCOPY INCLUDES MEDIASTINAL MASS BIOPSY Surgeons * [...] Freddy Contreras DO 02/08/25 0944 No Routine [id number] Description: Mediastinal Mass Comment: Send fresh for Lymphoma protocol 3 Pleural Cavity, Left Tissue TISSUE EXAM Freddy Contreras DO 02/08/25 1057 No Routine [id number] Description: parietal pleura Staff: Operating Room Orderly: Ellen Crowell RN; Cydney Lemons RN Scrub Person: Felipe Reynaga RN [place] to Circ: Jun Vicente RN Findings: VATS [...] 1:45 PM EDT documented in this encounter [facility] 02-10-2025 Note Discharge Summary Juju Caceres : [...] oil 500 MG capsule Commonly known as: [place]-3 MAGNESIUM PO melatonin 3 MG tablet metoprolol succinate XL 50 MG 24 hr tablet Commonly known as: Toprol-XL ZOMETA IV Where to Get Your Medications These medications were sent to [facility] [address] [place] [address] Hours: Friday to Friday 10 am to 6 pm oxyCODONE 5 MG immediate release tablet DIET: Adult diet Regular ACTIVITY: No restriction. COMPLEXITY OF FOLLOW UP: [x] Moderate Complexity: follow up within 7-14 calendar days (80324) [] Severe Complexity: follow up within 7 calendar days (53874) FOLLOW UP TESTING, PENDING RESULTS OR REFERRALS AT TRANSITIONAL CARE VISIT: [] Yes [x] No PENDING STUDIES: Pathology DISPOSITION: Home FACILITY/HOME CARE AGENCY NAME: n/A Follow up with Freddy Contreras, DO [address] [facility] [address] [facility] [address] Follow up in 2 week(s) Postop INSTRUCTIONS [...] Dilan Goncalves MD 02/10/2025, 8:36 AM [facility] 02-10-2025 Hospital course Narrative Discharge Summary Juju [...] oil 500 MG capsule Commonly known as: [place]-3 MAGNESIUM PO melatonin 3 MG tablet metoprolol succinate XL 50 MG 24 hr tablet Commonly known as: Toprol-XL ZOMETA IV Where to Get Your Medications These medications were sent to [facility] [address] [place] [address] Hours: Friday to Friday 10 am to 6 pm oxyCODONE 5 MG immediate release tablet DIET: Adult diet Regular ACTIVITY: No restriction. COMPLEXITY OF FOLLOW UP: [x] Moderate Complexity: follow up within 7-14 calendar days (97684) [] Severe Complexity: follow up within 7 calendar days (99071) FOLLOW UP TESTING, PENDING RESULTS OR REFERRALS AT TRANSITIONAL CARE VISIT: [] Yes [x] No PENDING STUDIES: Pathology DISPOSITION: Home FACILITY/HOME CARE AGENCY NAME: n/A Follow up with Freddy Contreras DO [address] [facility] [address] [facility] [address] Follow up in 2 week(s) Postop INSTRUCTIONS [...] 11:37 AM EDT documented in this encounter [facility] 02-10-2025 Hospital Discharge instructions Dilan Goncalves MD [...] pain. -Abdominal distention. documented in this encounter [facility] 02-09-2025 Note CTS Brief Note At patient bedside for chest tube removal. Explained procedure to patient and patient voiced understanding. Chest tube negative for air leak. Sutures removed and upon a large inspiratory breath, chest tube removed and occlusive dressing immediately applied. Pt tolerated procedure well. [facility] 02-09-2025 Note Care Management Prog ress Note Short Medical why still here: Tcc chart review complete, pt eval pend, tele, left rad art line, chest tube, pressures soft, tcc to follow Planned Discharge Disposition: Home or Self Care (tbd) Barriers/Today we still Wait: Clinical stability, Commissions Analyst recommendations (comment), Symptomatic control Length of Stay (Days): 1 GMLOS: No GMLOS Documented [facility] 02-09-2025 Progress note Formatting of t his note might be different from the original. Care Management Progress Note Short Medical why still here: Tcc chart review complete, pt eval pend, tele, left rad art line, chest tube, pressures soft, tcc to follow Planned Discharge Disposition: Home or Self Care (tbd) Barriers/Today we still Wait: Clinical stability, Commissions Analyst recommendations (comment), Symptomatic control Length of Stay (Days): 1 GMLOS: No GMLOS Documented [facility] 02-08-2025 Note Patient: Juju hernandez Procedure Summary Date: 02/08/25 Room / Location: [facility] Operating Room Anesthesia Start: 731 Anesthesia Stop: [...] all PACU criteria has been met. [facility] 02-08-2025 Note Patient: Juju hernandez Procedure Summary Date: 02/08/25 Room / Location: [facility] Operating Room Anesthesia Start: 731 Anesthesia Stop: [...] for questions and acknowledgement of understanding. [facility] 02-08-2025 Procedure note and Fernanda to bedside to see patient [facility] 02-08-2025 Procedure note Unable to update patient family. All out to lunch at this time [facility] 02-08-2025 Note Peripheral IV Date/Time: 02/08/2025 8:05 AM Placement Needle size: 18 G Laterality: right Location: wrist Local anesthetic: none Site prep: alcohol Technique: anatomical landmarks Attempts: 1 [facility] 02-08-2025 Note Arterial Line: Date/Time: 02/08/2025 7:55 [...] procedure well with no complications. Staffing Performed: CHEF DE CUISINE Resident/CHEF DE CUISINE: Yury Montoya CRNA [facility] 02-08-2025 Note Airway Date/Time: 02/08/2025 7:50 AM Reason: scheduled Airway not difficult General Information and Staff Patient location during procedure: Procedural Resident/CHEF DE CUISINE: Yury Montoya CRNA Performed: SRNA Patient Condition [...] Number of other approaches attempted: 0 [facility] 02-08-2025 Note Peripheral Block Time Out: 02/08/2025 7:41 AM Patient location during procedure: Procedural Start time: 02/08/2025 7:41 AM End time: 02/08/2025 7:45 AM Reason for block: at surgeon's request and post-op pain management Staffing Performed: ELVIA Resident/CHEF DE CUISINE: Yury Montoya CRNA Preanesthetic Checklist Completed: patient identified, IV checked, site marked, risks and benefits discussed, surgical consent, monitors and equipment checked, pre-op evaluation and timeout performed Region: [place]un[place] Primary: Serratus Anterior Laterality: Left Patient position: supine Prep: ChloraPrep Patient monitoring: heart rate, rn cardiac cath, continuous pulse ox and continuous capnometry O2: [...] and Local anesthetic injected without difficulty Medications qnkXDFGOkvavs-lpatrftjgix-snnlordfgg e (TAP) syringe - Injection 20 mL - 02/08/2025 7:41:00 AM bupivacaine liposome (Exparel) 1.3 % injection - Injection 10 mL - 02/08/2025 7:41:00 AM [facility] 02-08-2025 Procedure note CARDIOTHORACIC SURGERY--OPERATIVE NOTE Date: 02/08/25 Preoperative Diagnosis: Mediastinal adenopathy Pleural effusion Postoperative Diagnosis: Mediastinal adenopathy Pleural effusion Procedure: Left thoracoscopy converted to left thoracotomy Mediastinal biopsy Drainage of pleural effusion Parietal pleural biopsy Mechanical pleurodesis Surgeon: Lucero Contreras DO Assistant Therapy Aide: Dilan Goncalves MD (PGY3) Anesthesia: General--Dr. Rojas [...] around the point of bleeding in a usmhxq-un-ehufg fashion which was successful and completely controlling [...] pad for mechanical pleurodesis. A single 28 Emirati chest tube was placed in a pleural [...] unit. Lucero Contreras DO FACS Cardiothoracic Surgery [facility] 02-08-2025 Procedure note Date: 02/08/2025 Location: [facility] OR Name: Juju Caceres : 1945, Diagnosis Pre-op Diagnosis * Other diseases of mediastinum, not elsewhere classified [J98.59] Post-op Diagnosis * Other diseases of mediastinum, not elsewhere classified [J98.59] Procedures LEFT VIDEO-ASSISTED THORACOSCOPIC SURGERY 42525 - [place] THORACOSCOPY W/LOBECTOMY SINGLE LOBE MEDIASTINOSCOPY WITH BIOPSY 23775 - [place] MEDIASTINOSCOPY INCLUDES MEDIASTINAL MASS BIOPSY Surgeons * [...] Freddy Contreras DO 02/08/25 0944 No Routine [id number] Description: Mediastinal Mass Comment: Send fresh for Lymphoma protocol 3 Pleural Cavity, Left Tissue TISSUE EXAM Freddy Contreras DO 02/08/25 1057 No Routine [id number] Description: parietal pleura Staff: Operating Room Orderly: Ellen Crowell RN; Cydney Lemons RN Scrub Person: Felipe Reynaga RN [place] to Circ: Jun Vicente RN Findings: VATS [...] Contreras DO at 02/08/2025 1:45 PM EDT [facility] [employer] Phone: 02-08-2025 Note Peripheral Block Time Out: 02/08/2025 7:15 AM Patient location during procedure: pre-op Start time: 02/08/2025 7:15 AM End time: 02/08/2025 7:20 AM Reason for block: at surgeon's request and post-op pain management Staffing Performed: CHEF DE CUISINE Resident/CHEF DE CUISINE: Parrish Major CRNA Preanesthetic Checklist Completed: patient [...] noted and No symptoms of toxicity Medications xffLHQVZccixa-jvmghgzsfig-elfdfrbxwj e (TAP) syringe - Injection 20 mL - 02/08/2025 7:15:00 AM bupivacaine liposome (Exparel) 1.3 % injection - Injection 10 mL - 02/08/2025 7:15:00 AM [facility] 02-08-2025 History and physical note Images from the original note were not included. [facility] CARDIOVASCULAR & THORACIC SURGERY [address] [facility] [address] Dept: [phone] Dept Loc: [phone] Visit type: New Reason for Visit: Mediastinal [...] note, pt had CT chest completed at [facility] on 12/21/24 which demonstrated a large mass [...] left VATS for mediastinal biopsy. R. Ramon Ebn, DO FACS Cardiothoracic Surgery [facility] 02-08-2025 Note [facility] CARDIOVASCULAR & THORACIC SURGERY [address] [facility] [address] Dept: [phone] Dept Loc: [phone] Visit type: New Reason for Visit: Mediastinal [...] note, pt had CT chest completed at [facility] on 12/21/24 which demonstrated a large mass [...] DO FACS Cardiothoracic Surgery Patient seen in [facility] today. No new issues. Will proceed with left VATS for mediastinal biopsy. Lucero Contreras DO FACS Cardiothoracic Surgery [facility] 02-08-2025 History and physical note Images from the original note were not included. [facility] CARDIOVASCULAR [facility]ORACIC SURGERY [address] [facility] [address] Dept: [phone] Dept Loc: [phone] Visit type: New Reason for Visit: Mediastinal [...] note, pt had CT chest completed at [facility] on 12/21/24 which demonstrated a large mass [...] FACS Cardiothoracic Surgery documented in this encounter [facility] 02-03-2025 Note Patient: Juju hernandez Procedure Information Date/Time: 02/08/25 2230 Procedures: LEFT VIDEO-ASSISTED THORACOSCOPIC SURGERY (Left) - 4 hours MEDIASTINOSCOPY WITH BIOPSY Location: [address] Operating Room Surgeons: Freddy Contreras, Relevant [...] Age of Onset Throat cancer Brother [facility] 02-03-2025 Note Addendum 02/03/2025 17 00: Abnormal Labs consistent with CKD, appear to be stable. Sent to surgeon as FYI for review - Abdi Delcid, FURNITURE DESIGNER - ENDOSCOPY SPECIALTY TECHNICIAN Comprehensive Pre Surgical History and Physical ? Name: Juju Caceres : 1945 (Age-79 y.o.) Date of Service: Pt seen/examined on 02/03/2025 Procedure Information Date/Time: 02/08/25 0730 Procedures: LEFT VIDEO-ASSISTED THORACOSCOPIC SURGERY (Left) - 4 hours MEDIASTINOSCOPY WITH BIOPSY Location: [address] Operating Room Surgeons: Freddy Contreras DO Chief Complaint: Other diseases of mediastinum, not elsewhere classified [J98.59] ASSESSMENT/PLAN: Plan based on [facility] protocol for this intermediate level 3 risk procedure/surgery. Based on the below evaluation, the benefits of the planned procedure likely exceed the risks. The patient is medically optimized to proceed with the planned procedure without any further cardiopulmonary testing. 1) Other diseases of mediastinum, not elsewhere classified [J98.59] - Managed per surgery - Orders per [facility] Protocol: EKG, T&S, CBC, BMP and CXR [...] 07/2024, ? 2/2 to KO, seen at [facility], discharged home same day - Last ECHO none on file - Follows PCP - Managed with none - EKG and labs in PAT - No acute findings, no further evaluation is required 4) CKD-Stage 3 vs 4? - Follows PCP/Nephrology for management - BMP 01/18/25 reviewed ([facility]): Cr 3.72, GFR 16, BUN 51, K 4.0 - Following nephrology, Dr. Gutierrez with [facility], last seen 01/18/25 - Repeat BMP in PAT 5) Pleural Effusions - Recent CT Chest 12/21/24 reviewed ([facility]) Large LEFT sided pleural effusion, large lung mass most consistent with malignancy - Follows Pulmonology, Dr. Garcia in [place], last seen 12/24/24- referred to Dr. Contreras [...] QT Interval 380 QTC Interval 417 P [place] 60 QRS [place] 34 T Wave [place] 46 UT Interval 201 Impression Sinus rhythm No previous ECG available for comparison Electronically Signed On 02-03-2025 15:06:39 EDT by Jun ANDERSON and EF:None on file CT Chest ([facility]) 12/21/24): Pacer/Defib: No METS: >4 METS (Able [...] for pre-operative evaluation prior to ? Case: [id number] Date/Time: 02/08/2530 Procedures: LEFT VIDEO-ASSISTED THORACOSCOPIC SURGERY (Left) [92795 CPT(R)] - 4 hours MEDIASTINOSCOPY WITH BIOPSY [54380 CPT(R)] Diagnosis: Other diseases of mediastinum, not elsewhere classified [J98.59] Location: [facility] Operating Room Surgeons: Freddy Contreras DO From last office visit with Cardiothoracic Surgery, Dr. Contreras on 01/06/25: Juju Caceres is a 79 y.o. male referred by Dr. Garcia for mediastinal mass. Per note, pt had CT chest completed at [facility] on 12/21/24 which demonstrated a large mass in the prevascular mediastinal space with encroachment on the pulmonary arteries and an associated moderate pleu (more content not included)... [facility] 01-21-2025 Discharge summary [facility] 01-21-2025 Note [facility] Medical Records Department [address] [place] [address] Discharge Summary 01/21/25 1559 MR#: [id number] Acct: [id number] Name: JUJU CACERES Rep #: [id number] : 1945 79 From: Michelet Donovan DO PCP: Dr. Michelet Good DO Status:DIS IN [place] [facility] IB098-8 Providers Date of Admission: 01/18/25 Date of [...] was seen in the emergency room at [facility] with a chief complaint of shortness of [...] left pleural effusion. Patient was admitted to [place] [address], he was seen in consultation by nephrology [...] Data 01/20/25 05:45 (more content not included)... [facility] 01-21-2025 Radiology Diagnostic study note [facility] Imaging Services [address] [place] [address] Thoracentesis W US MR#: [id number] Acct: [id number] Name: JUJU CACERES Rep #: [id number] : 1945 M 79 From: Dashawn Mendoza MD PCP: Dr. Michelet Good, Status: ADM IN Study:Thoracentesis W US Date of Exam: 0 01/20/25 Exam# [id number] Ordering Dr: Michelet Love DO PROCEDURE: THORACENTESIS W US 01/21/2025 REASON FOR EXAM: LEFT PLEURAL EFFUSION TECHNIQUE: Diagnostic and therapeutic left THORACENTESIS W US COMPARISON: Abdomen and pelvis CT 01/18/2025. FINDINGS: Procedure: Following informed consent, and using standard sterile technique, an ultrasound-guided left thoracentesis was performed. 2% lidocaine local anesthesia was followed by placement of a 5 Emirati catheter intothe left pleural effusion. Approximately 1990 clear yellow fluid was successfully removed. No complication was encountered, in the patient left the department in good condition without significant complaint. US/Thoracentesis W US IMPRESSION: Successful diagnostic and therapeutic ultrasound-guided left thoracentesis. Laboratory results pending. Reading Location: [place] [address] CC: Dr. Michelet Good DO; Dr. Michelet Donovan DO ~ City Planning Teacher: Signed [facility] 01-21-2025 Discharge summary Note Date/Time January 21, 2025 3:59pm [facility] Medical Records Department [address] [place] [address] Instructions for Home/Discharge Instructions 01/21/25 1203 MR#: [id number] Acct: [id number] Name: JUJU CACERES Rep #:[id number] : [...] MD; Dr. Michelet Good DO ~ Signed [facility] Work Phone: 1(341) 810-395708-22-2025 Hospital Discharge instructionsAdditional Instructions Date of Discharge: 01/[facility]/25[facility] Work Phone: 1(605) 241-697408-22-2025 Progress note Author Michelet Donovan [facility] Note Date/Time January 21, 2025 7: 51am [facility] System Medical Records Department [address] [place] [address] Progress Note - Hospitalist 01/20/255 MR#: [id number] Acct: [id number] Name: JUJU CACERES Rep #:[id number] : 1945 79 From: Michelet Donovan DO PCP: Dr. Michelet Good, DO Status:ADM IN Location: [place] SL026-0 Reason for Visit Chief Complaint: Shortness of [...] 76.0 H, Lymph % (Auto) 6.7 L, Rush % (Auto) 11.5 H, Eos % (Auto) [...] 35 minutes Charges/Coding Visit Charges Inpatient E&M: 58797 Subs Hosp L2 01/21/25 2940 <Electronically signed by Michelet Donovan DO> Cosigner Signature (if applicable): CC: ~ Signed [facility] Work Phone: 1(856) 289-605408-22-2025 Progress note [facility] Medical Records Department [address] [facility] [place] [address] Progress Note - Hospitalist 01/20/25 1821 MR#: [id number] Acct: [id number] Name: JUJU CACERES Rep #:[id number] : 1945 79 From: Michelet Donovan DO PCP: Dr. Michelet Good, DO Status:ADM IN Location: [facility] NQ151-3 Reason for Visit Chief Complaint: Shortness of [...] 76.0 H, Lymph % (Auto) 6.7 L, Rush % (Auto) 11.5 H, Eos % (Auto) [...] 35 minutes Charges/Coding Visit Charges Inpatient E&M: 26635 Subs Hosp L2 01/21/25 6754 Cosigner Signature (if applicable): CC: ~ Signed [facility] Progress note Author Natalie Yen [facility] Note Date/Time January 20, 2025 6: 26pm [facility] Medical Records Department [address] [place] [address] Progress Note - Nephrology 01/20/25 1421 MR#: [id number] Acct: [id number] Name: JUJU CACERES Rep #:[id number] : 1945 79 From: Natalie alcantara BIOMETRICS EXPERIMENTALIST-C PCP: Dr. Michelet Good, DO Status:ADM IN Location: [place] KQ701-2 Subjective Subjective Patient resting in bed. No [...] - last 24 hr 01/18/25 12:14: Free Calypso LC, Quant 37.6 H, Free Lambda LC, Quant 47.6 H, Free Calypso/Lambda Ratio 0.79 01/20/25 05:45: WBC 6.4, RBC 2.82 L, Hgb 8.2 L, Hct 25.6 L, MCV 90.8, MCH 29.1, MCHC 32.0, RDW Std Deviation 44.0 H, RDW Coeff of Martha 13.3, Plt Count 287, MPV 9.6, Immature Gran % (Auto) 0.600, Neut % (Auto) 76.0 H, Lymph % (Auto) 6.7 L, Rush % (Auto) 11.5 H, Eos % (Auto) [...] failure Hypercalcemia Previous serum protein electrophoresis positive. Calypso and lambda light chain assay pending. Previous history of pleural effusions, pleural mass. Supposed to see someone for pleural biopsy at [facility]. 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 Clonal studies have been sent at [facility], pending. Most likely has some form of [...] and plan reviewed with Dr. Gutierrez. 01/20/25 2140 <Electronically signed by Natalie RAYO> Cosigner Signature (if applicable): 01/20/25 7477 <Electronically signed by Harry Gutierrez MD> CC: ~ Signed [facility] Work Phone: 1(577) 825-603608-21-2025 Progress note [facility] Medical Records Department [address] [place] [address] Progress Note - Nephrology 01/20/25 1421 MR#: [id number] Acct: [id number] Name: JUJU CACERES Rep #:[id number] : 1945 79 From: Natalie alcantara BIOMETRICS EXPERIMENTALIST-C PCP: Dr. Michelet Good, DO Status:ADM IN Location: [facility] LF905-9 Subjective Subjective Patient resting in bed. No [...] - last 24 hr 01/18/25 12:14: Free Calypso LC, Quant 37.6 H, Free Lambda LC, Quant 47.6 H, Free Calypso/Lambda Ratio 0.79 01/20/25 05:45: WBC 6.4, RBC 2.82 L, Hgb 8.2 L, Hct 25.6 L, MCV 90.8, MCH 29.1, MCHC 32.0, RDW Std Deviation 44.0 H, RDW Coeff of Martha 13.3, Plt Count 287, MPV 9.6, Immature Gran % (Auto) 0.600, Neut % (Auto) 76.0 H, Lymph % (Auto) 6.7 L, Rush % (Auto) 11.5 H, Eos % (Auto) [...] failure Hypercalcemia Previous serum protein electrophoresis positive. Calypso and lambda light chain assay pending. Previous history of pleural effusions, pleural mass. Supposed to see someone for pleural biopsy at [facility]. 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 Clonal studies have been sent at [facility], pending. Most likely has some form of [...] and plan reviewed with Dr. Gutierrez. 01/20/25 9491 Cosigner Signature (if applicable): 01/20/25 6330 CC: ~ Signed [facility] Discharge summary Author Kenrick Ott [facility] Note Date/Time January 20, 2025 7: 06am [facility] Medical Records Department [address] [place] [address] Emergency Department Summary 01/18/25 MR#: [id number] Acct: [id number] Name: JUJU CACERES Rep #:[id number] : 1945 79 From: Kenrick Benítez PCP: Dr. Michelet Good, DO Status:ADM IN Location: [place] [address]-[address] H[address] <Dr. Kenrick Ott DO - Last [...] Recent immobilization, Recent surgery or Recent travel [facility] <Dr. Kenrick Ott DO - Last Filed: 01/18/25 08:14> [facility] Medical History (Updated 01/18/25 @ 06:59 by [...] intact bilaterally and no sensory deficits noted Lima Coma Scale: document GCS findings Spontaneous Obeys [...] 70.8 H Lymph % (Auto) 11.1 L Rush % (Auto) 12.3 H Eos % (Auto) [...] collecting system on the right. Reading Location: [id number] and lateral chest x-ray was obtained. [...] asinus tachycardia with a rate of 104. UT interval, QRS interval, and QTc intervals were all normal. Montebello was normal. There are nonspecific ST-T wave [...] to the oncoming physician pending admission. <Juan Mnauel Gallegos MD - Last Filed: 01/18/25 11:33> [facility] Lab Data Labs: Laboratory Results - last 24 hr 01/18/25 01/18/25 05:30 07:26 WBC 8.0 RBC 3.50 L Hgb 10.2 L Hct 30.8 L MCV 88.0 MCH 29.1 MCHC 33.1 RDW Std Deviation 42.5 RDW Coeff of Martha 13.2 Plt Count 380 MPV 10.2 Immature Gran % (Auto) 0.200 Neut % (Auto) 70.8 H Lymph % (Auto) 11.1 L Rush % (Auto) 12.3 H Eos % (Auto) [...] collecting system on the right. Reading Location: [facility] Treatment and Re-Evaluation :: Patient was given [...] DO [Primary Care Provider] - Print Language: Irish What to do if you have Problems For any increased pain, shortness of breath, bleeding, nausea or vomiting, chestpain, or any unexpected problems, contact your Primary Care Provider. Call [facility] ([phone]) or report to the closest Emergency Room. Call 911 if necessary. 01/20/25 0706 <Electronically signed by Kenrick Ott DO> Cosigner Signature (if applicable): 01/18/25 1133 <Electronically signed by Juan Manuel Gallegos MD> CC: Dr. Michelet Good DO ~ Signed [facility] Work Phone: 1(127) 261-956208-21-2025 Discharge summary [facility] Medical Records Department [address] [place] [address] Emergency Department Summary 01/18/25 MR#: [id number] Acct: [id number] Name: JUJU CACERES Rep #:[id number] : 1945 79 From: Kenrick Benítez PCP: Dr. Michelet Good, DO Status:ADM IN Location: MS3 ZE562-8 HPI History of Present Illness Chief Complaint: [...] Recent immobilization, Recent surgery or Recent travel [facility] Medical History (Updated 01/18/25 @ 06:59 [...] intact bilaterally and no sensory deficits noted Lima Coma Scale: document GCS findings Spontaneous Obeys [...] 70.8 H Lymph % (Auto) 11.1 L Rush % (Auto) 12.3 H Eos % (Auto) [...] collecting system on the right. Reading Location: [id number] PA and lateral chest x-ray was obtained. [...] asinus tachycardia with a rate of 104. UT interval, QRS interval, and QTc intervals were all normal. [place] was normal. There arenonspecific ST-T wave changes. [...] over to the oncoming physician pending admission. [facility] Lab Data Labs: Laboratory Results - last 24 hr 01/18/25 01/18/25 05:30 07:26 WBC 8.0 RBC 3.50 L Hgb 10.2 L Hct 30.8 L MCV 88.0 MCH 29.1 MCHC 33.1 RDW Std Deviation 42.5 RDW Coeff of Martha 13.2 Plt Count 380 MPV 10.2 Immature Gran % (Auto) 0.200 Neut % (Auto) 70.8 H Lymph % (Auto) 11.1 L Rush % (Auto) 12.3 H Eos % (Auto) [...] collecting system on the right. Reading Location: [id number] Treatment and Re-Evaluation :: Patient was given [...] DO [Primary Care Provider] - Print Language: Irish What to do if you have Problems For any increased pain, shortness of breath, bleeding, nausea or vomiting, chestpain, or any unexpected problems, contact your Primary Care Provider. Call [employer] [facility] ([phone]) or report tothe closest Emergency Room. Call 911 if necessary. 01/20/25 07 Cosigner Signature (if applicable): 01/18/25 1133 CC: Dr. Michelet Good DO ~ Signed [facility]08-20-2025 Consult note Author Natalie Yen [facility] Note Date/Time January 19, 2025 6: 51pm [facility] Health System Medical Records Department [address] [place] [address] Consultation - Nephrology 01/18/25 1134 MR#: [id number] Acct: [id number] Name: JUJU CACERES Rep #:[id number] : 1945 79 From: Natalie alcantara BIOMETRICS EXPERIMENTALIST-C PCP: Dr. Michelet Good DO Status:ADM IN Location: [place] [address]-1 Assessment & Plan Assessment/Plan (1) Acute kidney [...] vitamin D 1, 25 hydroxy and vitamin K94-zealxhy. To note patient had serum immunofixation in [...] any hematuria, dysuria, nocturia, urgency or hesitancy. [facility] Medical History (Updated 01/18/25 @ 11:40 by [...] (Auto) 70.8 H, Lymph % (Auto) 11.1 L,Rush % (Auto) 12.3 H, Eos % (Auto) [...] moderate size left pleural effusion. [facility] 01/18/25 07:11 IMPRESSION: Mild dilation of the renal collecting system on the right. Reading Location: [facility] 01/18/25 1157 <Electronically signed by Natalie RAYO> Cosigner Signature (if applicable): 01/19/25 1851 <Electronically signed by Harry Gutierrez MD> CC: Dr. Michelet Good, DO~ Signed [facility] Work Phone: 1(159) 269-577908-20-2025 Progress note Author Harry Gutierrez [facility] Note Date/Time January 19, 2025 6: 45pm [facility] Health System Medical Records Department [address] [place] [address] Progress Note - Nephrology 01/19/25 1842 MR#: [id number] Acct: [id number] Name: JUJU CACERES Rep #:[id number] : 1945 79 From: Harry lovell MD PCP: Dr. Michelet Good, DO Status:ADM IN Location: [facility] Subjective Subjective no new complaints Objective Data [...] - last 24 hr 01/18/25 12:14: Free Calypso LC, Quant 37.6 H, Free Lambda LC, Quant 47.6 H, Free Calypso/Lambda Ratio 0.79 01/18/25 19:45: Urine Color Straw, Urine Clarity Sl. Cloudy, Urine pH 6.5, Ur Specific [place] 1.015, Urine Protein 30 H, Urine Glucose [...] 77.5 H, Lymph % (Auto) 6.6 L, Rush % (Auto) 10.8 H, Eos % (Auto) [...] failure Hypercalcemia Previous serum protein electrophoresis positive. Calypso and lambda light chain assay pending. Previous history of pleural effusions, pleural mass. Supposed to see someone for pleural biopsy at [facility]. 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 Clonal studies have been sent at [facility], pending. Most likely has some form of [...] Cosigner Signature (if applicable): CC: ~ Signed [facility] Work Phone: 1(864) 108-838608-20-2025 Progress note Author Michelet Donovan [facility] Note Date/Time January 19, 2025 6: 04pm [facility] Health System Medical Records Department [address] [place] [address] Progress Note - Hospitalist 01/19/25 1801 MR#: [id number] Acct: [id number] Name: JUJU CACERES Rep #:[id number] : 1945 79 From: Michelet Donovan DO PCP: Dr. Michelet Good, DO Status:ADM IN Location: [place] [address]-1 Reason for Visit Chief Complaint: Shortness of [...] Sl. Cloudy, Urine pH 6.5, Ur Specific [place] [employer] 1.015, Urine Protein 30 H, Urine Glucose [...] 77.5 H, Lymph % (Auto) 6.6 L, Rush % (Auto) 10.8 H, Eos % (Auto) [...] 35 minutes Charges/Coding Visit Charges Inpatient E&M: 56198 Subs Hosp L2 01/19/25 1804 <Electronically signed by Michelet Donovan DO> Cosigner Signature (if applicable): CC: ~ Signed [facility] Work Phone: 1(600) 397-243108-20-2025 Consult note [facility] Medical Records Department [address] [place] [address] Consultation - Nephrology 01/18/25 1134 MR#: [id number] Acct: [id number] Name: JUJU CACERES Rep #:[id number] : 1945 79 From: Natalie alcantara BIOMETRICS EXPERIMENTALIST-C PCP: Dr. Michelet Good, DO Status:ADM IN Location: [place] [address]-1 Assessment & Plan Assessment/Plan (1) Acute kidney [...] vitamin D 1, 25 hydroxy and vitamin V47-nathwxv. To note patient had serum immunofixation in [...] any hematuria, dysuria, nocturia, urgency or hesitancy. [facility] Medical History (Updated 01/18/25 @ 11:40 by [...] %(Auto) 70.8 H, Lymph % (Auto) 11.1 L,Rush % (Auto) 12.3 H, Eos % (Auto) [...] collecting system on the right. Reading Location: [id number] 01/18/25 1157 Cosigner Signature (if applicable): 01/19/25 1851 CC: Dr. Michelet Good, DO~ Signed [facility]08-20-2025 Progress note [facility] Medical Records Department [address] [place] [address] Progress Note - Nephrology 01/19/25 1842 MR#: [id number] Acct: [id number] Name: JUJU CACERES Rep #:[id number] : 1945 79 From: Harry lovell MD PCP: Dr. Michelet Good, Status:ADM IN [facility] Subjective Subjective no new complaints Objective Data [...] - last 24 hr 01/18/25 12:14: Free Calypso LC, Quant 37.6 H, Free Lambda LC, Quant 47.6 H, Free Calypso/Lambda Ratio 0.79 01/18/25 19:45: Urine Color Straw, Urine Clarity Sl. Cloudy, Urine pH 6.5, Ur Specific [place] [employer] 1.015, Urine Protein 30 H, Urine Glucose [...] 77.5 H, Lymph % (Auto) 6.6 L, Rush % (Auto) 10.8 H, Eos % (Auto) [...] failure Hypercalcemia Previous serum protein electrophoresis positive. Calypso and lambda light chain assay pending. Previous history of pleural effusions, pleural mass. Supposed to see someone for pleural biopsy at [facility]. 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 Clonal studies have been sent at [facility], pending. Most likely has some form of [...] Cosigner Signature (if applicable): CC: ~ Signed [facility]08-20-2025 Progress note [facility] Medical Records Department [address] [place] [address] Progress Note - Hospitalist 01/19/25 1801 MR#: [id number] Acct: [id number] Name: JUJU CACERES Rep #:[id number] : 1945 79 From: Michelet Donovan DO PCP: Dr. Michelet Good, DO Status:ADM IN Location: [facility] ZJ096-9 Reason for Visit Chief Complaint: Shortness of [...] Sl. Cloudy, Urine pH 6.5, Ur Specific [place] 1.015, Urine Protein 30 H, Urine Glucose [...] 77.5 H, Lymph % (Auto) 6.6 L, Rush % (Auto) 10.8 H, Eos % (Auto) [...] 35 minutes Charges/Coding Visit Charges Inpatient E&M: 44019 Subs Hosp L2 01/19/251 Cosigner Signature (if applicable): CC: ~ Signed [facility]08-19-2025 History and physical note Author Michelet Donovan [facility] Note Date/Time January 18, 2025 7: 10pm [facility] Medical Records Department [address] [place] [address] [place] [address] H&P Exam - Hospitalist 01/18/25 1859 MR#: [id number] Acct: [id number] Name: JUJU CACERES Rep #:[id number] : 1945 79 From: Michelet Donovan DO PCP: Dr. Michelet Good, DO Status:ADM IN Location: [facility] WM031-3 HPI - General General Date of Admission: 01/18/25 Date of Service: 01/18/25 Chief Complaint: Shortness of breath left-sided chest pain HPI Narrative JUJU CACERES, is a 79 M who presents to the emergency room at [facility] with complaints of shortness of breath and [...] Garciareferred him to a chest surgeon at [facility] for a pleural biopsy. I contacted pathology here and the pleural fluid was sent for an additional analysis by [facility] and they read out T-cell predominant lymphocytosis [...] right hydronephrosis. Patient will be admitted to [place] [address] for acute kidney injury and hypercalcemia,he will be seen in consultation by nephrology, I had a brief conversation with nephrology and they advise giving the patient Zometa-pharmacy advised a 4 mg dose. IV fluids will be given and labs will be monitored. Patient will undergoa CT of the abdomen and pelvis while in the hospital. [facility] Medical History (Updated 01/18/25 @ 11:40 by [...] (Auto) 70.8 H, Lymph % (Auto) 11.1 L,Rush % (Auto) 12.3 H, Eos % (Auto) [...] collecting system on the right. Reading Location: [id number] Abdomen/Pelvis CT 01/18/25 13:30 IMPRESSION: Moderate-sized left [...] the right hemipelvis as described. Reading Location: [id number] Assessment & Plan Assessment/Plan (1) Hypercalcemia: PLAN: Plan 1. Acute kidney injury-patient will be admitted to [place] [address] and receive IV fluids, labs will be [...] 75 minutes Charges/Coding Visit Charges Inpatient E&M: 67889 Init Hosp L3 01/18/25 1910 <Electronically signed by Michelet Tereletsky DO> Cosigner Signature (if applicable): CC: Dr. Michelet Good, DO; Dr. Michelet Donovan, DO~ Signed [facility] Work Phone: 1(356) 710-987008-19-2025 History and physical note [facility] Medical Records Department [address] [place] [address] H&P Exam - Hospitalist 01/18/25 1859 MR#: [id number] Acct: [id number] Name: JUJU CACERES Rep #:[id number] : 1945 79 From: Michelet Donovan DO PCP: Dr. Michelet Good DO Status:ADM IN Location: [facility] NJ144-7 HPI - General General Date of Admission: 01/18/25 Date of Service: 01/18/25 Chief Complaint: Shortness of breath left-sided chest pain HPI Narrative JUJU CACERES, is a 79 M who presents to the emergency room at [facility] with complaints of shortness of breath and [...] Garciareferred him to a chest surgeon at [facility] for a pleural biopsy. I contacted pathology here and the pleural fluid was sent for an additional analysis by [facility] and they read out T-cell predominant lymphocytosis [...] right hydronephrosis. Patient will be admitted to [place] [address] for acute kidney injury and hypercalcemia,he will be seen in consultation by nephrology, I had a brief conversation with nephrology and they advise giving the patient Zometa-pharmacy advised a 4 mg dose. IV fluids will be given and labs will be monitored. Patient will undergoa CT of the abdomen and pelvis while in the hospital. [facility] Medical History (Updated 01/18/25 @ 11:40 by [...] %(Auto) 70.8 H, Lymph % (Auto) 11.1 L,Rush % (Auto) 12.3 H, Eos % (Auto) [...] moderate size left pleural effusion. [facility] Ul[facility]ound 01/18/25 07:11 IMPRESSION: Mild dilation of the renal collecting system on the right. Reading Location: [id number] Abdomen/Pelvis CT 01/18/25 13:30 IMPRESSION: Moderate-sized left [...] the right hemipelvis as described. Reading Location: [id number] Assessment & Plan Assessment/Plan (1) Hypercalcemia: PLAN: Plan 1. Acute kidney injury-patient will be admitted to [place] [address] and receive IV fluids, labs will be [...] 75 minutes Charges/Coding Visit Charges Inpatient E&M: 66953 Init Hosp L3 01/18/25 191 Cosigner Signature (if applicable): CC: Dr. Michelet Good DO; Dr. Michelet Donovan DO~ Signed [facility]08-19-2025 Radiology Diagnostic study note [facility] Imaging Services [address] [place] [place], [place] [address] Abdomen/Pelvis without Cont MR#: [id number] Acct: [id number] Name: JUJU CACERES Rep #: [id number] : 1945 M 79 From: Wiliam Barnes MD PCP: Dr. Michelet Good DO Status: ADM IN Study:Abdomen/Pelvis without Cont Date of Exa m: 01/18/25 Exam# [id number] Ordering Dr: Michelet Love DO PROCEDURE: ABDOMEN/PELVIS [...] the right hemipelvis as described. Reading Location: [id number] CC: Dr. Michelet Good, ; Dr. Michelet Donovan, DO ~ City Planning Teacher: Signed [facility]08-19-2025 Radiology Diagnostic study note [facility] Imaging Services [address] [place] [address] [id number] Kidney and Bladder MR#: [id number] Acct: [id number] Name: JUJU CACERES Rep #: [id number] : 1945 M 79 From: Naomie Bardales MD PCP: Dr. Michelet Good DO Status: REG ER Study:Kidney and Bladder Date of Exam: 0 01/18/25 Exam# [id number] Ordering Dr: Kenrick Ott DO PROCEDURE: KIDNEY AND BLADDER 01/18/2025 REASON FOR EXAM: ACUTE KIDNEY INJURY TECHNIQUE: KIDNEY AND BLADDER COMPARISON: None FINDINGS: Kidneys: Right kidney is 11.1 x 5.3 x 6.0 cm, while the left is 12.0 x 4.5 x 6.2cm. [place]: Mild hydronephrosis on the right. The left is normal. Cysts or Masses: None Bladder: Urinary bladder is normal. Prevoid bladder volume 312 cc. Postvoid bladder volume 0 cc. Bilateral ureteral jets are seen. US/Kidney and Bladder IMPRESSION: Mild dilation of the renal collecting system on the right. Reading Location: [id number] CC: Dr. Kenrick Ott DO; Dr. Michelet Good DO ~ City Planning Teacher: Signed [facility]08-19-2025 Radiology Diagnostic study note [facility] Imaging Services [address] [address] Chest PA and Lateral MR#: [id number] Acct: [id number] Name: JUJU CACERES Rep #: [id number] : 1945 M 79 From: Meet De La Rosa MD PCP: Dr. Michelet Good DO Status: PRE ER Study:Chest PA and Lateral Date of Exam: 01/18/25 Exam# [id number] Ordering Dr: Kenrick Ott DO PROCEDURE: CHEST [...] Ott DO; Dr. Michelet Good DO ~ City Planning Teacher: Signed [facility]08-07-2025 History of Present illness Narrative* Freddy Contreras DO - 01/06/2025 11:15 AM EDT Images from the original note were not included. [facility] [address] [facility] [address] Dept: [phone] Dept Loc: [phone] Visit type: New Reason for Visit: Mediastinal [...] note, pt had CT chest completed at [facility] on 12/21/24 which demonstrated a large mass [...] Never Drug use: Never documented in this [facility]07-28-2025 Evaluation note* Diagnosis Onset Date Resolution Status Admit Date Lung mass acute December 27 10:33am Pleural effusion acute November 10:33am [facility] Work Phone: 1(180) 354-246807-28-2025 Evaluation note* Diagnosis Onset Date Resolution Status Admit Date Lung mass acute December 27 10:33am Pleural effusion acute November 10:33am Acute kidney injury acute Augus t 2024 10:56am Dyspnea acute January 18, 2 025 10:56am Hypercalcemia acute December 10:56am Recurrent left pleural effusion acut e January 18, 2025 10:56am [facility] Work Phone: 1(445) 987-806607-28-2025 Evaluation note* Diagnosis Onset Date Resolution Status Admit Date Lung mass acute December 27 10:33am Pleural effusion acute November 10:33am Acute kidney injury inactive 2024 10:56am Dyspnea inactive January 18, 025 10:56am Hypercalcemia inactive December 10:56am Recurrent left pleural effusion inactive January 18 10:56am Lung mass acute February 01, 2025 8:38am Pleural effusion acute Septembe r 2024 8:38am [facility] [employer] [facility] Work Phone: 1(369) 383-125907-28-2025 Evaluation note* Diagnosis Onset Date Resolution Status [...] deficiency anemia acute Oc tober 2024 9:45am [facility] Work Phone: 1(585) 908-920707-28-2025 Evaluation note* Diagnosis Onset Date Resolution Status [...] B cell lymphoma) chronic March 14 8:18am [facility] Work Phone: 1([phone]) 407-671502-21-2025 Hospital Discharge instructions Patient Education 07/23/2024 10:50:48 [...] very rapidly, very slowly, or irregularly (palpitations) 9801-8[address] [employer] [place] [address]. All rights reserved. This information is not intended as a substitute for professional medical care. Always follow yourhealthcare professional's instructions. Follow Up Care 07/23/2024 08:02:49 With:MICHELET GOOD DO Address: [address] [place] [address]- When:2-4 days [facility] 02-21-2025 Note Discharge Instructions Thank you for allowing [facility] to assist you with your healthcare needs. The following is importantdischarge information regarding your hospital visit. Diagnosis from Today's Visit Vasovagal syncope What to Do Next Instructions from Your Care Team No qualifying data available. Post Acute Orders No qualifying data available. You Need to Schedule the Following Appointments Follow Up with MICHELET GOOD DO When:Within 2-4 days Where:[facility] [address] [place] [place] [address]- Allergies No Known Medication Allergies Medications Please [...] very rapidly, very slowly, or irregularly (palpitations) 3185-37[address] [employer]. [address] [place] [address]. All rights reserved. This information is not intended as a substitute for professional medical care. Always follow yourhealthcare professional's instructions. Additional Information VACCINATE! IT SAVES LIVES! Members of the community who have not yet received the COVID-19 vaccine and would like to receive it can visit one of [facility] vaccine clinics. There are many vaccine clinic locations within the [facility]. For locations and available times, please visit www.[email or web address].[email or web address]/. It is important to note that some COVID mobile vaccine clinics are held outdoors and may be canceled in rainy or stormy conditions. To learn more about pediatric vaccinations (ages 5-11), we invite you to visit the [facility] webpage. https://www.[facility].org/pages/3756-Sdljm-Qidmwqjqfes-Ciazulsccw-Qyidg-Pfo stions.htmlTo learn more about the COVID-19 vaccine, we invite you to visit the CDC website for a list of frequently asked questions. https://www.cdc.gov/coronavirus/2019-ncov/vaccines/faq.html [facility] Patient Portal Access Instructions: Stay connected with your healthcare team and access your personal medical information anytime with the [facility] Patient Portal. If you would like a full copy of your medical records please contact the [facility] Medical Records Department Friday through Friday between 8a.m. and 4:30p.m. Please follow the directions below to access the portal: 1.Access the email account you provided upon registration to the hospital.2.Look for an invitation email from [facility].3.Open the email and access the invitation link: Accept Invitation to [employer].Fill in the required jensen to create your account. Sign into [email or web address] with your username and password that you [...] you will allow to register on the [employer] Patient Portal for access to your information. You can also access the [employer] Patient Portal on the [employer]. Simply click on Health Records under [employer] and then click on the [employer] logo. [...] Call your local pharmacy or go to [email or web address] to find one close to you.3.Make use of household items: Use cat litter or old coffee grounds to dispose medications if other options arenot available. Mix your drugs with these household products, seal them in an airtight container andthrow it into the garbage. Call [facility]: [phone] to be sure your drugs can be [...] aware that I should contact my doctor. Patient/Director Of Compliance Signature: Date/Time: Relationship to Patient: Witness Name/Signature: Date/Time: [facility]02-21-2025 Note* Exam Date Time Procedure Performing Provider Status 07/23/24 9:[address] Head or Brain w/o Contrast Julieta KLEIN MD; Auth (Verified) [id number] ORIGINAL EXAMINATION: CT OF THE HEAD WITHOUT [...] 07/23/2024 9:25:53 AM Ordering Provider: MARK GORE [facility]02-21-2025 Note* Exam Date Time Procedure Performing Provider Status 07/23/24 8:49 AM EKG [ED AOH] - CV MD BAO, MARK MCGOVERN; Auth (Verified) ECG Final Report Sinus rhythm Atrial premature complex Baseline wander in lead(s) V3 Electronic Signature: MD BAO, MARK MCGOVERN 07/23/2024 10:59:11 [facility] Ed Parada [facility] Note Date/Time February 14, 2025 11:20am [facility] Medical Records Department [address] [place] [address] Emergency Department Summary 02/14/25 MR#: [id number] Acct: [id number] Name: JUJU CACERES Rep #:[id number] : 1945 79 From: dE craig DO PCP: Dr. Michelet Good DO [...] intact Psych: Cooperative, appropriate mood and affect [facility] Medical History Hypercalcemia Dyspnea Recurrent left [...] 84.5 H Lymph % (Auto) 3.3 L Rush % (Auto) 7.3 Eos % (Auto) 3.7 [...] with no visible acute diverticulitis. Reading [facility] Triage Chief Complaint: Constipation ED [...] DO [Primary Care Provider] - Print Language: Irish What to do if you have Problems For any increased pain, shortness of breath, bleeding, nausea or vomiting, chestpain, or any unexpected problems, contact your Primary Care Provider. Call [facility] ([phone]) or report to the closest Emergency Room. Call 911 if necessary. 02/14/25 1120 <Electronically signed by Ed Parada DO> Cosigner Signature (if applicable): CC: Dr. Michelet Good DO ~ Signed [facility] Work Phone: Evaluation + Plan note No data available for this section [facility] Evaluation noteNo assessment information available [facility] Work Phone: Evaluation note* Diagnosis Onset Date Resolution Status Admit Date Lung mass acute December 27 10:33am Pleural effusion acute November 10:33am [facility] Work Phone: Evaluation note* Diagnosis Mediastinal mass- Primary Swelling, mass, or lump in chest Weight loss, non-intentional Loss of weight [facility] Diagnosis Preop testing- Primary Unspecified pre-operative examination Preop testing Unspecified pre-operative examination Other diseases of mediastinum, not elsewhere classified documented in this encounter [facility] note* Diagnosis Mediastinal mass- Primary Swelling, mass, or lump in chest Pleural effusion Unspecified pleural effusion documented [facility] Discharge instructions No data available for this section [facility] Hospital Discharge instructionsAmbulatory Orders* Cardiovascular/Thoracic Surgery Location: None Selected [facility] Work Phone: Hospital Discharge instructionsAdditional Instructions Follow-up with primary care physician. Continue MiraLAX. Recommend stop taking narcotics if no longer needed for pain. Senna as needed for constipation.[facility] Work Phone: Hospital Discharge instructionsAmbulatory Orders* Nutrition Referral - [facility] Location: None Selected [facility] Work Phone: Hospital Discharge instructionsAmbulatory Orders* General Surgery Location: None Selected [facility] Work Phone: Progress note No data available for this section [facility] Propwvvn note Author Parrish Miranda [facility] Note Date/Time March 02, 2025 11 :25am [facility] [address] [place] [id number] OFFICE VISIT Date of Service: 03/02/25 0950 MR#: [id number] Acct: [id number] Name: JUJU CACERES Rep #: [id number] : 1945 From: Parrish Miranda MD Age/Sex: 79/M Location: [facility] [place] Status: Signed HPI Subjective Date of Service 03/02/25 Chief Complaint Referred for Lymphoma. History of Present Illness 79-year-old man presented with weight loss. CT scan on 12/21/2024 done at [facility] showed left-sided lung nodules and mediastinal mass with pleural effusion. 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 He was referred to cardiothoracic surgery at [facility], underwent thoracotomy with biopsy on 02/08/2025. 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 He was found to have hypercalcemia and has been on steroids for a few days. He has tiredness, but doing his ADLs. 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 Michelet Good DO ~ [facility] Work Phone: Progress note Author Parrish Miranda [facility] Note Date/Time March 10, 2025 10 :38am [facility] [address] [place] [address] [place] [address] OFFICE VISIT Date of Service: 03/10/25929 MR#: [id number] Acct: [id number] Name: JUJU CACERES Rep #: [id number] : 1945 From: Parrish Miranda MD Age/Sex: 79/M Location: [facility] [place] Status: Signed HPI Subjective Date of Service 03/10/25 Chief Complaint F/u for DLBCL and therapy. History of Present Illness 79-year-old man presented with weight loss. CT scan on 12/21/2024 done at [facility] showed left-sided lung nodules and mediastinal mass with pleural effusion. 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 He was referred to cardiothoracic surgery at [facility], underwent thoracotomy with biopsy on 02/08/2025. 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 He was found to have hypercalcemia. He had a PET/CT, Echocardiogram done and comes for follow up. He has tiredness, but doing his ADLs. 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 Nearly all areas are contiguous. Other: [id number]-[id number]-yqknduem sigmoid diverticulosis. Please note the low-dose CT [...] site, E83.52 - Hypercalcemia, Z79.899 - Other fdc (current) drug therapy Comprehensive Metabolic Profil 03/24/25 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,intrapelvic lymph nodes, E83.52 - Hypercalcemia, Z79.899 - Other fdc (current) drug therapy LDH 03/24/25 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, intrapelvic lymph nodes, E83.52 - Hypercalcemia, Z79.899 - Other terminal operator (current) drug therapy Uric Acid 03/24/25 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, intrapelvic lymph nodes, E83.52 - Hypercalcemia, Z79.899 - Other fdc (current) drug therapy HIV Today C83.36 - [...] fallen in the past year?: No 03/10/25 8737 <Electronically signed by Parrish Gavin> Date _ Parrish Miranda MD [facility] Signature: Date (if applicable) CC: Dr. Harry Gutierrez MD; Dr. Michelet Good DO ~ [facility] Work Phone: Reason for referral (narrative)No reason for referral information availableWLima [facility] Work Phone: Reason for visit Narrative* Auth/Cert (Routine) Specialty Diagnoses / Procedures Referred By Contac t Referred To Contact Diagnoses Other diseases of mediastinum, not elsewhere classified Procedures UT THORACOSCOPY W/LOBECTOMY SINGLE LOBE UT MEDIASTINOSCOPY INCLUDES MEDIASTINAL MASS BIOPSY LEFT VIDEO-ASSISTED THORACOSCOPIC SURGERY MEDIASTINOSCOPY WITH BIOPSY Freddy Contreras DO [address] [place] [address] Phone: tel: fax: Referral ID Status Reason Start Date Expiration Date Visits Re quested Visits Authorized [id number] 02/01/2025 1 1 [facility] Health Summary Purpose Family History Relationship Condition Age at Onset Recorded Date/T jose Not Specified Malignant neoplasm of throat Unknown brother Malignant neoplasm Unknown Epilepsy Unknown Glaucoma Unknown father Glaucoma Unknown No Family History Records Found Advance Directives No Advanced Directives Records Found Advance Directive Response Recorded Date/ Time Do you have a Healthcare Power of Salon Customer Experience Specialist? No January 18, 2025 5:17am Advance Directive Response Recorded Date/ Time Do you have a Healthcare Power of Salon Customer Experience Specialist? No January 18, 2025 12:07pm Date Activated Date Inactivated Comments 02/08/2025 1:30 PM 02/10/2025 3:35 PM Advance Directive Response Recorded Date/ Time Do you have a Healthcare Pow er of Salon Customer Experience Specialist? No January 18, 2025 12:07pm Do you have a Healthcare Pow er of Salon Customer Experience Specialist? Yes February 14, 2025 7:12am Name of Medical Power of Salon Customer Experience Specialist VARSHA CHAUHAN R- February 14, 2025 7:12am Date Activated Date Inactivated Comments 02/08/2025 1:30 PM 02/10/2025 3:35 PM Advance Directive Response Recorded Date/ Time Do you have a Healthcare Pow er of Salon Customer Experience Specialist? No January 18, 2025 12:07pm Do you have a Healthcare Pow er of Salon Customer Experience Specialist? Yes February 14, 2025 7:12am Name of Medical Power of Salon Customer Experience Specialist VARSHA CHAUHAN R- February 14, 2025 7:12am Advance Directives on File Yes Octob er 2024 8:17am Living Will No March 14 8:17am Do you have a Healthcare Pow er of Salon Customer Experience Specialist? Yes March 14, 2025 8:17am Name of Medical Power of Salon Customer Experience Specialist March 14, 2025 8:17am Advance Directives No [...] MALIGNANT NEOPLASM OF THORAX NEED [facility] March 02, 2025 9:45am MED ONC [...] Provider Active S tart: December 30, 2024 Motor Block Mechanic Relationship Specialty Start Date End Date Michelet Good Elena [address] [place] [place] [phone] PCP - General Family Medicine 12/28/24 Team [...] End: February 01, 2025 Nanette Connolly , BIOMETRICS EXPERIMENTALIST-C Attending Provider Active Start: February 01, 2025 End: February 01, 2025 Motor Block Mechanic Relationship Specialty Start Date End Date Michelet Good [address] [place] [phone] PCP - General Family Medicine 12/28/24 Team [...] February 04, 2025 End: February 04, 2025 Motor Block Mechanic Relationship Specialty Start Date End Date Michelet Good [address] [place] [phone] PCP - [facility] Medicine 12/28/24 Team Status: Inactive Member Role/Relationship Status Dates Dr. Michelet Good DO Primary Care Provider Active Start: February 14, 2025 End: February 14, 2025 Dr. Ed Parada DO Emergency Provider Active Start: January End: February 14, 2025 Motor Block Mechanic Relationship Specialty Start Date End Date Michelet Good [address] [place] [phone] PCP - [facility] Medicine 12/28/24 Team Status: Active [...] section and content) DATE CREATED AUTHOR 12/24/2024 [facility] DATE CREATED AUTHOR AUTHOR'S ORGANIZ ATION 01/21/2025 [facility] DATE CREATED AUTHOR AUTHOR'S ORGANIZ ATION 03/07/2025 [facility] DATE CREATED AUTHOR AUTHOR'S ORGANIZ ATION 03/21/2025 [facility] Reason for Visit (unrecogniz ed section and content) Reason Comments New Patient Specialty Diagnoses / Procedures Referred By Contact Referred To Contact Cardiothoracic Surgery Diagnoses Other nonspecific abnormal finding of lung field Procedures UT OFFICE/OUTPATIENT NEW HIGH MDM 60 MINUTES Domenico Garcia [address] [place] [address] Phone: tel:[phone] fax:[phone] [facility] Cardiovascular Thoracic Surgery - [place] [address] [place] [address] Phone: tel: fax: Referral ID Status Reason Start Date Expiration Date Visits Re quested Visits Authorized [id number] Closed 12/28/2024 12/28/2025 1 1 Reason Comments [...] Siena Means, RN)1549 (Given - Provider: Francis Appel RN)2124 (Given - Provider: Siena Means, RN) [...] not available)2022 (Given - Provider: Jessica Phillips, PEELED POTATO INSPECTOR) 0813 (Given - Provider: Gabrielle Jiménez, PEELED POTATO INSPECTOR)1400 (Not Given - Provider: Gabrielle Jiménez, PEELED POTATO INSPECTOR - Reason: Other - Comment: physician pulling chest tube and asked that this tx be held and to resume when the next one is due)1823 (Given - Provider: Sasha De La Paz) 0852 (Given - Provider: Jennifer Berger, PEELED POTATO INSPECTOR) ipratropium-albuterol (Duo-Neb) 0.5-2.5 mg/3 mL nebulizer solution [...] Montoya CRNA)0755 (Canceled Entry - Provider: Yury Montoya CRNA - Comment: Switch to gravity)0756 (Canceled [...] sedation for opioid reversal - MUST notify rn care transition provider immediately after first dose, may give [...] 1330, Phase II/On Unit, 2nd Line. Give UT if patient is unable to take orally. [...] 1330, Phase II/On Unit, 2nd Line. Give UT if patient is unable to take orally. [...] BE BASED ON THE PRIMARY CLINICAL RECORDS. [facility]. provides no warranty or guarantee of the accuracy or completeness of information in this document.
[2025-03-22] VITALS (7 sets, daily range): BP systolic 116–134; BP diastolic 57–71; PULSE 89–118; RESP 16–18; TEMP 36.6–37.4; O2SAT 88–97; BMI 20.5
[2025-03-22] MEDS: 0.9% Normal Saline (1000mL) 1,000 ML 150 ML IV ×3 (02:16→16:23)
--- NOTE | 2025-03-22 02:28 | PCM.RX.CS ---
Consult Antibiotic Management Pharmacy has been consulted to manage selected antibiotic: Vancomycin Type of Intervention Type of Consult: New start Labs Labs: Sodium 129 mmol/L (133-145) L 03/21/25 19:50 Potassium 3.5 mmol/L (3.3-5.1) 03/21/25 19:50 Chloride 93 mmol/L (98-108) L 03/21/25 19:50 Carbon Dioxide 25.0 mmol/L (21.0-32.0) 03/21/25 19:50 Anion Gap 12 (5-15) 03/21/25 19:50 BUN 33 mg/dL (4-19) H 03/21/25 19:50 Creatinine 2.07 mg/dL (0.70-1.20) H 03/21/25 19:50 Est GFR (MDRD) Non-Af 32 (>60) L 03/21/25 19:50 BUN/Creatinine Ratio 16.0 RATIO (10-20) 03/21/25 19:50 Glucose 118 mg/dL (70-99) H 03/21/25 19:50 Microbiology Microbiology: Microbiology 03/21/25 21:36 Mucosa - Nose SARS-CoV-2, Influenza & RSV (PCR) - Final Dosing Weight Weight used for dosin.4 kg Estimated Creatinine Clearance Estimated Creatinine Clearance: 23.52 Goal Trough Goal Trough: 10-15 mcg/mL Pharmacy Plan for Drug Dosing Pharmacy Plan for Drug Dosing: Pharmacy Service will continue to monitor and adjust dosing as required. ER DOSE 1500MG GIVEN 03/21 @ 5100. START 1GM Q48H AND DRAW TROUGH PRIOR TO 3RD DOSE Follow-Up Labs Follow-Up Labs: Trough: Vancomycin Date/Time Labs Ordered Labs to be done on [date and time ordered]: 03/25 @ 0172
[2025-03-22 06:02] LABS: Hematocrit 24.0 % (40-54); Hemoglobin 7.9 g/dL (13.0-16.5); Immature Granulocytes Count 0.100 X10^3/uL (0.0-0.0); Mean Corp Hgb Conc 32.9 g/dL (32-36); Mean Corpuscular Volume 91.6 fL (80-94); Mean Platelet Vol. 9.8 fl (6.2-12.0); NRBC Flagged by Analyzer 0 % (0-5); POSITIVE DIFFERENTIAL YES; POSITIVE MORPHOLOGY YES; Platelet Count 142 K/mm3 (150-450); RBC Distribution Width CV 15.1 % (11.6-14.6); RBC Distribution Width SD 50.3 fl (35.1-43.9); Red Blood Count 2.62 M/mm3 (4.6-6.2); White Blood Count 5.5 K/mm3 (4.4-11.0)
[2025-03-22 06:06] LABS: Differential Indicated SCAN CRITERIA MET
[2025-03-22 06:34] LABS: Anion Gap 11 (5-15); BUN 33 mg/dL (4-19); BUN/Creat Ratio 15.2 RATIO (10-20); Calcium,Total 10.3 mg/dL (7.6-11.0); Carbon Dioxide 21.8 mmol/L (21.0-32.0); Chloride 104 mmol/L (98-108); Estimated Creatinine Clearance 22.03 ml/min (50-250); Glucose 103 mg/dL (70-99); Potassium 4.5 mmol/L (3.3-5.1)
[2025-03-22 06:54] LABS: Differential Comment SCANNED; Reactive Lymphocyte 2+
--- NOTE | 2025-03-22 09:12 | NURSING ---
This RN into room. Noted pt sitting up straight in bed with breakfast tray in from of him. Pt has a dry cough and stated he choked on a piece of egg. VS obtained, SpO2 85-88% on RA. Placed pt on 2LNC, up to 92%. Per , it is normal for pt to cough while drinking water but not with food. Pt is able to speak and is not cyanotic. Dr Garcia notified, ST consult placed and pt made NPO until speech eval.
[2025-03-22] MEDS: Piperacil/Tazobactam 3.375 GM in 0.9% Normal Saline (50mL MB+) 50 ML IV ×2 (09:32→22:26)
--- NOTE | 2025-03-22 11:10 | PCM.PN.HOSP ---
Reason for Visit Chief Complaint: Febrile illness, fatigue Subjective Subjective Saw patient at bedside this morning. Patient was laying back in bed and conversing normally. He was fatigued appearing and was shivering on exam despite having multiple blankets on him. Nursing staff noted this morning that patient had an episode of choking on a scrambled egg. Patient and report history of intermittent issues with choking primarily on fluids. Patient made n.p.o. status and speech therapy consult placed. Patient had mild right-sided crackles noted on lung auscultation but otherwise had good air movement throughout bilaterally. No other new concerns this morning. Objective Data Objective Data Vital Signs: Vital Signs Temp Pulse Resp BP Pulse Ox O2 Del Method O2 Flow Rate 99.3 F H 116 H 18 122/71 H 92 Nasal Cannula 2 03/22/25 09:00 03/22/25 09:00 03/22/25 09:00 03/22/25 09:00 03/22/25 09:07 03/22/25 09:07 03/22/25 09:07 Oxygen Flow Rate (L/min) 2 Oxygen Delivery Method Nasal Cannula Weight: 57.8 kg Body Mass Index (BMI) 20.5 Intake & Output: Intake and Output for Last 24 Hours 03/20/25 03/21/25 03/22/25 23:59 23:59 23:59 Intake Total 100 / 100 3080 / 3080 Balance 100 / 100 3080 / 3080 Lab / Micro Data 03/22/25 05:32 03/22/25 05:32 Labs: Laboratory Results - last 24 hr 03/21/25 19:50: WBC 6.4, RBC 2.87 L, Hgb 8.5 L, Hct 25.5 L, MCV 88.9, MCH 29.6, MCHC 33.3, RDW Std Deviation 48.1 H, RDW Coeff of Martha 15.0 H, Plt Count 160, MPV 10.3, Immature Gran % (Auto) 1.600 H, Neut % (Auto) 89.5 H, Lymph % (Auto) 2.5 L, [place]rose % (Auto) 3.6, Eos % (Auto) 2.2, Baso % (Auto) 0.6, Absolute Neuts (auto) 5.7, Absolute Lymphs (auto) 0.16 L, Nucleated RBC % 0, PT 14.0, INR 1.1, APTT 39.2 H, Sodium 129 L, Potassium 3.5, Chloride 93 L, Carbon Dioxide 25.0, Anion Gap 12, BUN 33 H, Creatinine 2.07 H, Estim Creat Clear Calc 23.52 L, Est GFR (MDRD) Non-Af 32 L, BUN/Creatinine Ratio 16.0, Glucose 118 H, Lactic Acid 1.1, Calcium 11.4 H, Total Bilirubin 0.24, AST 33, ALT 33, Alkaline Phosphatase 152 H, Troponin T High Sens 47 H D, Total Protein 6.6, Albumin 3.1 L, Globulin 3.4, Albumin/Globulin Ratio 0.9 03/21/25 21:10: Urine Color Yellow, Urine Clarity Clear, Urine pH 6.5, Ur Specific Butler 1.015, Urine Protein 100 H, Urine Glucose (UA) Normal, Urine Ketones Negative, Urine Occult Blood 25 H, Urine Nitrite Negative, Urine Bilirubin Negative, Urine Urobilinogen Normal, Ur Leukocyte Esterase Negative, Urine RBC 0-5 SEEN, Urine WBC 0-5 SEEN, Ur Squamous Epith Cells 0-5 SEEN, Ur Renal Epithelial Cell 0-5 SEEN, Urine Bacteria RARE, Hyaline Casts 0-5 SEEN, Fine Granular Casts 0-5 SEEN, Urine Mucus RARE 03/21/25 22:14: Troponin T Hi Sens 2 Hr 45 H 03/22/25 05:32: WBC 5.5, RBC 2.62 L, Hgb 7.9 L, Hct 24.0 L, MCV 91.6, MCH 30.2, MCHC 32.9, RDW Std Deviation 50.3 H, RDW Coeff of Martha 15.1 H, Plt Count 142 L, MPV 9.8, Immature Gran % (Auto) 1.800 H, Neut % (Auto) 88.2 H, Lymph % (Auto) 3.3 L, Montrose % (Auto) 3.6, Eos % (Auto) 2.7, Baso % (Auto) 0.4, Absolute Neuts (auto) 4.9, Absolute Lymphs (auto) 0.18 L, Nucleated RBC % 0, Differential Comment SCANNED, Reactive Lymphocytes 2+, Sodium 136, Potassium 4.5, Chloride 104, Carbon Dioxide 21.8, Anion Gap 11, BUN 33 H, Creatinine 2.15 H, Estim Creat Clear Calc 22.03 L, Est GFR (MDRD) Non-Af 30 L, BUN/Creatinine Ratio 15.2, Glucose 103 H, Calcium 10.3, TSH 1.370 Micro: Microbiology 03/21/25 21:36 Mucosa - Nose SARS-CoV-2, Influenza & RSV (PCR) - Final Physical Exam Const alert, oriented x3, no apparent distress and average body habitus Constitutional Narrative: Pleasant elderly male, mildly fatigued appearing, mild shivering noted while laying in bed, otherwise laying back in bed fairly comfortably, conversing normally, in no acute distress. General Appearance: cooperative and comfortable HEENT normocephalic, head/scalp atraumatic, hearing grossly normal bilaterally, nasal mucous membranes and turbinates normal and moist oral mucous membranes Eyes PERRL, EOMs intact bilaterally and conjunctivae normal Neck full ROM Chest inspection of chest normal Resp normal respiratory effort and no use of accessory muscles Resp Narrative: Breathing comfortably on room air at rest. Mild crackles noted in mid to lower right lung zone on exam but otherwise good air movement throughout with no wheezing noted. Cardio regular rate, regular rhythm, no murmurs and peripheral pulses 2+ throughout GI normal to inspection, nondistended, normoactive bowel sounds, soft to palpation, non-tender and non-distended Back/Spine normal ROM Extremity normal to inspection, full ROM and no pedal edema Skin no rashes or lesions noted Psych mental status grossly normal Assessment & Plan Assessment/Plan (1) Febrile illness: (2) DLBCL (diffuse large B cell lymphoma): QUALIFIERS: Lymphoma site: multiple regions Qualified Code(s): C83.38 - Diffuse large B-cell lymphoma, lymph nodes of multiple sites PLAN: Plan Patient is an 79-year-old male who presented to [facility] ED on 03/21/2025 with fevers and fatigue. 1. Fever of unknown origin ? Oncology following. Patient with recent diagnosis of diffuse large B-cell lymphoma and completed first round of chemotherapy on 03/10 as below. Developed fever and associated fatigue and decreased p.o. intake on 03/20 and continued into 03/21 so patient came in for further evaluation. Patient with no URI symptoms, no abdominal pain or discomfort, no nausea or vomiting and no dysuria. Chest x-ray unremarkable. UA unremarkable. Blood cultures pending. Unclear if symptoms may be secondary to infection versus due to recent chemotherapy as below. Will continue to empirically treat with IV vancomycin and Zosyn for now. 2. 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 Oncology following as above. Thoracotomy with biopsy done on 02/08 at [facility] and pathology showed DLBCL. PET/CT scan on 03/08 showed extensive tumor involvement with hypermetabolic activity seen at the left pleural, numerous left rib thoracic vertebrae and sternum, bilateral mediastinum left greater than right, left chest wall and right pelvis. Completed first round of R?CHOP on 03/10. Saw oncology in the office on 03/14 and reported fatigue but was still completing his ADLs. Appreciate further oncology recommendations. 3. Hypercalcemia of malignancy, improving ? Calcium 11.4 on admit, improved to 10.3 on hospital day 2 with significant IV fluid resuscitation. Will continue IV fluids this afternoon and encourage p.o. intake. Monitor daily calcium level. 4. Dysphagia ? Speech therapy consulted. Patient with episode of choking on scrambled egg on the morning of 03/22. Made n.p.o. status at that time. Patient and report history of intermittent issues with choking primarily on fluids. Appreciate speech therapy recommendations. 5. Mild elevated creatinine in setting of CKD stage IIIb ? Creatinine 2.07 on admit, baseline appears to be around 1.6. Creatinine stable at 2.15 on hospital day 2. Has had fairly good urine output since admission. Continue to monitor daily BMP and urine output. 6. Chronic normocytic anemia ? Hemoglobin 8.5 on admit, recent baseline around 8-9. Monitor daily CBC. 7. History of gout ? Continue home allopurinol at reduced dosing of 150 mg daily given mild creatinine elevation as above. 8. Acute on chronic debility ? PT/OT/case management following. Patient was at home with his , was completing ADLs at home until few days prior to this admission. Presume his fatigue and weakness is secondary to possible infection as above as well as recent chemotherapy. Appreciate therapy recommendations. DVT prophylaxis: Heparin subcu CODE STATUS: Full code, verified Expected disposition: TBD Total clinical time spent by myself addressing the patient's medical issues, reviewing all the data, and collaborating with patient's care team: 43 minutes. Charges/Coding Visit Charges Inpatient E&M: 81518 Subs Hosp L2
--- NOTE | 2025-03-22 13:32 | ONC.CONSULT ---
Assessment & Plan Assessment/Plan (1) Febrile illness: Status: Acute Code(s): R50.9 - Fever, unspecified Plan: May be drug related-allopurinol can cause febrile disease. Suggest discontinuation of allopurinol, continue antibiotics till blood and urine cultures are negative. (2) 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 Code(s): C83.30 - Diffuse large B-cell lymphoma, unspecified site Qualifiers: Lymphoma site: multiple regions Qualified Code(s): C83.38 - Diffuse large B-cell lymphoma, lymph nodes of multiple sites Plan: Continue supportive management, next cycle is due on 03/31/2025. If patient is stable, he can be discharged home for outpatient follow-up. (3) Hypercalcemia of malignancy: Status: Acute Code(s): E83.52 - Hypercalcemia Plan: Calcium has normalized. Suggest IV fluids as needed. HPI Consult Data Date of Service:: 03/22/25 PCP / Referring Provider: Dr. Sacha Hernandez DO Attending: Dr. Payam Garcia DO Chief Complaint Chief Complaint: Asked to see Pt for NHL and fever. History of Present Illness History of Present Illness: 79-year-old man was diagnosed with diffuse large B cell lymphoma on 02/08/2025. He started Rituxan with mini CHOP on 03/10/2025 followed by G-CSF long-acting. He was also started on allopurinol. He is now admitted to the hospital with fever since 03/20/2025, had blood cultures done and started on broad-spectrum antibiotics. There is no obvious source of infection. Advanced Directives Do you have a Healthcare Power of Software Product Specialist?: Yes [facility] Medical History Malignant neoplasm of thorax Vasovagal syncope Rheumatic fever Hypercalcemia Dyspnea Recurrent left pleural effusion Acute kidney injury Pleural effusion Lung mass Macular degeneration Home Medications ?Medication ?Instructions ?Recorded ?Last Taken ?Type sennosides 8.6 mg capsule (senna) 8.6 mg PO DAILY PRN constipation 5 02/14/25 Unknown Rx days #5 caps allopurinol 300 mg tablet 300 mg PO QDAY #30 tabs 03/02/25 03/22/25 Rx ondansetron 8 mg disintegrating 8 mg PO Q12H PRN nausea and 03/10/25 Unknown Rx tablet vomiting #30 tabs Allergy/AdvReac Type Severity Reaction Status Date / Time No Known Allergies Allergy Verified 03/21/25 19:02 Family History Brother Cancer throat Epilepsy Glaucoma Father Glaucoma Other Throat cancer Surgical History History of lung biopsy History of thoracentesis Social History household members: significant other current occupational status: retired 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, [place] pets and animals: No history of recent travel: No Smoking Status: Never smoker alcohol intake: never substance use type: does not use caffeine: No what type of physical activity do you participate in: walking seatbelt use: always ROS Constitutional Constitutional: Reports fatigue, fever(s) and poor appetite ENT HEENT: Denies neck mass or odynophagia Cardiovascular Cardiovascular: Denies chest pain or diaphoresis Respiratory/Chest Respiratory/Chest: Denies cough, hemoptysis or wheezing Gastrointestinal Gastrointestinal: Reports anorexia; Denies abdominal pain or bloating Genitourinary Genitourinary: Denies dysuria Musculoskeletal Musculoskeletal: Reports muscle weakness Integumentary Integumentary: Denies rash Neurologic Neurologic: Denies headache(s) or numbness Psychiatric Psychiatric: Denies depression Endocrine Endocrinology: Denies flushing Hematologic/Lymphatic Hematologic/Lymphatic: Denies easy bleeding or easy bruising Physical Exam Narrative Elderly man lying in bed Const alert, oriented x3 and no apparent distress HEENT normocephalic HEENT Narrative: dry mouth Eyes PERRL, EOMs intact bilaterally, conjunctivae normal and no scleral icterus Neck supple Lymph Lymphatic: no lymphadenopathy noted Resp normal respiratory effort and clear to auscultation bilaterally Cardio regular rate, regular rhythm, S1 normal heart sound and S2 normal heart sound GI normal to inspection, nondistended, normoactive bowel sounds and soft to palpation Extremity no clubbing, cyanosis or edema Skin no rashes or lesions noted Neuro CN's II-XII intact bilaterally, moves all extremities and no focal motor deficits Psych mental status grossly normal Vital Signs Temperature 99.3 F H 03/22/25 09:00 Temperature Source Oral 03/22/25 09:00 Pulse Rate 116 H 03/22/25 09:00 Respiratory Rate 18 03/22/25 09:00 Respiratory Effort Normal, Non-Labored 03/22/25 07:40 Respiratory Depth Normal 03/22/25 07:40 Respiratory Pattern Normal 03/22/25 07:40 Blood Pressure 122/71 H 03/22/25 09:00 Blood Pressure Mean 88 03/22/25 09:00 Pulse Ox 92 03/22/25 09:07 Oxygen Delivery Method Nasal Cannula 03/22/25 09:07 Oxygen Flow Rate (L/min) 2 03/22/25 09:07 Laboratory Results - last 24 hr 03/21/25 19:50: WBC 6.4, RBC 2.87 L, Hgb 8.5 L, Hct 25.5 L, MCV 88.9, MCH 29.6, MCHC 33.3, RDW Std Deviation 48.1 H, RDW Coeff of Martha 15.0 H, Plt Count 160, MPV 10.3, Immature Gran % (Auto) 1.600 H, Neut % (Auto) 89.5 H, Lymph % (Auto) 2.5 L, Stoddard % (Auto) 3.6, Eos % (Auto) 2.2, Baso % (Auto) 0.6, Absolute Neuts (auto) 5.7, Absolute Lymphs (auto) 0.16 L, Nucleated RBC % 0, PT 14.0, INR 1.1, APTT 39.2 H, Sodium 129 L, Potassium 3.5, Chloride 93 L, Carbon Dioxide 25.0, Anion Gap 12, BUN 33 H, Creatinine 2.07 H, Estim Creat Clear Calc 23.52 L, Est GFR (MDRD) Non-Af 32 L, BUN/Creatinine Ratio 16.0, Glucose 118 H, Lactic Acid 1.1, Calcium 11.4 H, Total Bilirubin 0.24, AST 33, ALT 33, Alkaline Phosphatase 152 H, Troponin T High Sens 47 H D, Total Protein 6.6, Albumin 3.1 L, Globulin 3.4, Albumin/Globulin Ratio 0.9 03/21/25 21:10: Urine Color Yellow, Urine Clarity Clear, Urine pH 6.5, Ur Specific York 1.015, Urine Protein 100 H, Urine Glucose (UA) Normal, Urine Ketones Negative, Urine Occult Blood 25 H, Urine Nitrite Negative, Urine Bilirubin Negative, Urine Urobilinogen Normal, Ur Leukocyte Esterase Negative, Urine RBC 0-5 SEEN, Urine WBC 0-5 SEEN, Ur Squamous Epith Cells 0-5 SEEN, Ur Renal Epithelial Cell 0-5 SEEN, Urine Bacteria RARE, Hyaline Casts 0-5 SEEN, Fine Granular Casts 0-5 SEEN, Urine Mucus RARE 03/21/25 22:14: Troponin T Hi Sens 2 Hr 45 H 03/22/25 05:32: WBC 5.5, RBC 2.62 L, Hgb 7.9 L, Hct 24.0 L, MCV 91.6, MCH 30.2, MCHC 32.9, RDW Std Deviation 50.3 H, RDW Coeff of Martha 15.1 H, Plt Count 142 L, MPV 9.8, Immature Gran % (Auto) 1.800 H, Neut % (Auto) 88.2 H, Lymph % (Auto) 3.3 L, Stoddard % (Auto) 3.6, Eos % (Auto) 2.7, Baso % (Auto) 0.4, Absolute Neuts (auto) 4.9, Absolute Lymphs (auto) 0.18 L, Nucleated RBC % 0, Differential Comment SCANNED, Reactive Lymphocytes 2+, Sodium 136, Potassium 4.5, Chloride 104, Carbon Dioxide 21.8, Anion Gap 11, BUN 33 H, Creatinine 2.15 H, Estim Creat Clear Calc 22.03 L, Est GFR (MDRD) Non-Af 30 L, BUN/Creatinine Ratio 15.2, Glucose 103 H, Calcium 10.3, TSH 1.370 Microbiology 03/21/25 21:36 Mucosa - Nose SARS-CoV-2, Influenza & RSV (PCR) - Final
--- NOTE | 2025-03-22 13:40 | CASEMGMT ---
CHRISTINE RUIZ Assessment Face to Face with patient for initial transition planning/care coordination assessment. CHRISTINE RUIZ introduced self and role at [facility], pt voices understanding. Pt is A&Ox4 and is resting comfortably in bed and is calm. Pt's at the bedside. Care providers, pharmacy, and demographics verified. Admitting dx: Febrile Illness, B-Cell Lymphoma LACE Strata: 3 PCP: Sacha Hernandez Specialists: Ruben Preferred Pharmacy: [facility] Insurance: [employer] [facility] Prescription Benefit: Yes LNOK: Stephanie (W), Kecia (Daughter) Living Arrangements: Pt lives with his in a single story condo with 3 steps to enter ADLs/IADLs: Pt states that he is indep at baseline, 6-Click score is 24. Pt states that his is able to support him at home if needed. Pt states that he may continue OP PT in [place] eventually, but is not ready for this now with his Ca dx. Transportation: DME: FWW, Cane, pulse ox, BP Machine, shower chair, grab bars. Pt is currently requiring additional oxygen and may qualify for home oxygen use. A verbal list of local in-network DME companies were provided to the pt at this time. Pt prefers [facility] HHC/SNF: Denies hx or needs Pt?s goal: Home Plan: Home with pt's and follow up with oncology as an OP. Pt reports that his next chemo treatment is on the . Pt currently denies the need for HH, OP Tx, or any additional resources. Pt states that he feels safe with this plan and denies further questions or concerns. Follow ST consult. Report given to [facility] [employer] CM. Kermit Alfaro RN, CM
--- NOTE | 2025-03-22 15:52 | CHAPLAIN ---
Type of Pastoral Visit _x__ Initial Visit ___ Follow-up Visit ___ On-call Visit ___ General Patient Visit ___ Spiritual Assessment ___ Family Conference ___ Bereavement ___ Rapid Response ___ Code Blue ___ Other (describe below) Pastoral Care Referral From _x__ Patient _x_ Family ___ Nurse ___ Physician ___ Contact Assembler ___ Farm Owner Operator ___ Other (describe below) Sacrament/Intervention _x__ Active listening ___ Anointing ___ Bahai ___ Bereavement ___ Communion ___ Rosemarie exploration ___ ___ Life review _x__ Prayer ___ Reconciliation ___ Sacrament of Sick _x__ Supportive presence ___ Wedding ___ Other (describe below) Pastoral Comments patient was met a few weeks ago; pt and spouse are in the room and are welcoming; pt is weak and his voice is weak too; both acknowledge the journey of treatments and how that has impacted the patient; pt is here due to having a fever; pt wonders with words about if this is worth it; asked pt more about his feelings and decisions that may fluctuate at different times; pt is welcoming of prayer support and the presence of someone that gives concern; pt however is tired and so the visit is shortened;
[2025-03-22] MEDS: Heparin Injection (Vial) 5,000 UNIT/ML VIAL 5000 UNIT SC (21:22)
[2025-03-23 03:24] VITALS: BP 122/71; PULSE 103; RESP 18; TEMP 37.1; O2SAT 94
[2025-03-23 07:16] LABS: Hematocrit 25.2 % (40-54); Hemoglobin 8.3 g/dL (13.0-16.5); Mean Corp Hgb Conc 32.9 g/dL (32-36); Mean Corpuscular Volume 90.6 fL (80-94); Mean Platelet Vol. 9.9 fl (6.2-12.0); Platelet Count 181 K/mm3 (150-450); RBC Distribution Width CV 15.5 % (11.6-14.6); RBC Distribution Width SD 51.1 fl (35.1-43.9); Red Blood Count 2.78 M/mm3 (4.6-6.2); White Blood Count 8.0 K/mm3 (4.4-11.0)
[2025-03-23 07:42] LABS: Anion Gap 10 (5-15); BUN 24 mg/dL (4-19); BUN/Creat Ratio 12.7 RATIO (10-20); Calcium,Total 9.5 mg/dL (7.6-11.0); Carbon Dioxide 20.6 mmol/L (21.0-32.0); Chloride 105 mmol/L (98-108); Estimated Creatinine Clearance 25.19 ml/min (50-250); Glucose 100 mg/dL (70-99); Potassium 3.4 mmol/L (3.3-5.1)
--- NOTE | 2025-03-23 07:54 | RAD_ITS ---
PROCEDURE: CHEST 1 VIEW (PORTABLE) 03/23/2025 REASON FOR EXAM: HYPOXIA TECHNIQUE: Frontal view of the chest. COMPARISON: Prior study dated March 21, 2025. FINDINGS: Hardware: EKG electrodes are seen. Heart: The heart size is normal. Lungs: There now is diffuse airspace disease in the right lung with patchy airspace disease in the central portion of the left lung. Atypical pulmonary edema should be ruled out. An infectious process can not be excluded. Bones: Degenerative changes are identified within the thoracic spine. RAD/Chest 1 View (Portable) IMPRESSION: New opacification of the right hemithorax with patchy airspace disease in the l eft midlung. Atypical pulmonary edema should be ruled out. An infectious process can not be excluded. Follow-up recommended. Reading Location: [place] [id number]
[2025-03-23 10:30] VITALS: BP 116/65; PULSE 116; RESP 16; TEMP 37.4; O2SAT 96
[2025-03-23] MEDS: Heparin Injection (Vial) 5,000 UNIT/ML VIAL 5000 UNIT SC ×2 (10:36→22:46)
[2025-03-23] MEDS: 0.9% Saline Lock 10 ML Syringe IV (10:36)
[2025-03-23] MEDS: Piperacil/Tazobactam 3.375 GM in 0.9% Normal Saline (50mL MB+) 50 ML IV (10:41)
[2025-03-23] MEDS: Ensure Plus High Protein 120 ML LIQUID PO ×3 (10:52→17:38)
--- NOTE | 2025-03-23 11:30 | PCM.PN.HOSP ---
Reason for Visit Chief Complaint: Febrile illness, fatigue Subjective Subjective Saw patient at bedside this morning, present. Patient appeared more fatigued this morning yesterday and had mild increased work of breathing noted. On auscultation he did have crackles noted on the right side and mid to lower lung zones. Notes that he has felt more weak today than previous days, has had some difficulty getting up without assistance to use the restroom. No other new concerns this morning. Objective Data Objective Data Vital Signs: Vital Signs Temp Pulse Resp BP Pulse Ox O2 Del Method O2 Flow Rate 99.3 F H 116 H 16 116/65 96 Nasal Cannula 6 03/23/25 10:30 03/23/25 10:30 03/23/25 10:30 03/23/25 10:30 03/23/25 10:30 03/23/25 10:30 03/23/25 10:30 Oxygen Flow Rate (L/min) 6 Oxygen Delivery Method Nasal Cannula Weight: 57.8 kg Body Mass Index (BMI) 20.5 Intake & Output: Intake and Output for Last 24 Hours 03/21/25 03/22/25 03/23/25 23:59 23:59 23:59 Intake Total 100 / 100 5130 / 5130 50 / 50 Balance 100 / 100 5130 / 5130 50 / 50 Lab / Micro Data 03/23/25 06:55 03/23/25 06:55 Labs: Laboratory Results - last 24 hr 03/23/25 06:55: WBC 8.0, RBC 2.78 L, Hgb 8.3 L, Hct 25.2 L, MCV 90.6, MCH 29.9, MCHC 32.9, RDW Std Deviation 51.1 H, RDW Coeff of Martha 15.5 H, Plt Count 181, MPV 9.9, Sodium 136, Potassium 3.4, Chloride 105, Carbon Dioxide 20.6 L, Anion Gap 10, BUN 24 H, Creatinine 1.88 H, Estim Creat Clear Calc 25.19 L, Est GFR (MDRD) Non-Af 35 L, BUN/Creatinine Ratio 12.7, Glucose 100 H, Calcium 9.5 Micro: Microbiology 03/21/25 21:10 Urine, Random Urine Culture - Preliminary Culture exhibits no growth. 03/21/25 21:36 Mucosa - Nose SARS-CoV-2, Influenza & RSV (PCR) - Final Radiography Diagnostic Testing: Radiology Impression Chest X-Ray 03/23/25 07:54 IMPRESSION: New opacification of the right hemithorax with patchy airspace disease in the left midlung. Atypical pulmonary edema should be ruled out. An infectious process can not be excluded. Follow-up recommended. Reading Location: [facility] Physical Exam Const alert, oriented x3, no apparent distress and average body habitus Constitutional Narrative: Elderly male, fatigued and weak appearing, mild increased work of breathing noted, otherwise laying back in bed and answering questions appropriately. General Appearance: cooperative and comfortable HEENT normocephalic, head/scalp atraumatic, hearing grossly normal bilaterally, nasal mucous membranes and turbinates normal and moist oral mucous membranes Eyes PERRL, EOMs intact bilaterally and conjunctivae normal Neck full ROM Chest inspection of chest normal Resp Resp Narrative: Mild increased work of breathing noted on 6 L nasal cannula at rest. Crackles noted in right mid to lower lung zones, worse than yesterday. No wheezing noted. Cardio no murmurs and peripheral pulses 2+ throughout Cardio Narrative: Tachycardic, regular rhythm. GI normal to inspection, nondistended, normoactive bowel sounds, soft to palpation, non-tender and non-distended Back/Spine normal ROM Extremity normal to inspection, full ROM and no pedal edema Skin no rashes or lesions noted Psych mental status grossly normal Assessment & Plan Assessment/Plan (1) Febrile illness: (2) DLBCL (diffuse large B cell lymphoma): QUALIFIERS: Lymphoma site: multiple regions Qualified Code(s): C83.38 - Diffuse large B-cell lymphoma, lymph nodes of multiple sites PLAN: Plan Patient is an 79-year-old male who presented to [facility] ED on 03/21/2025 with fevers and fatigue. 1. Fever of unknown origin ? Oncology following. Patient with recent diagnosis of diffuse large B-cell lymphoma and completed first round of chemotherapy on 03/10 as below. Developed fever and associated fatigue and decreased p.o. intake on 03/20 and continued into 03/21 so patient came in for further evaluation. Patient with no URI symptoms, no abdominal pain or discomfort, no nausea or vomiting and no dysuria. Chest x-ray unremarkable. UA unremarkable. Blood cultures pending. Per oncology, highest concern is for fever secondary to recent initiation of allopurinol for lymphoma as below. Allopurinol discontinued on 03/22. Will continue to treat with IV antibiotics empirically for now. 2. 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 Oncology following as above. Thoracotomy with biopsy done on 02/08 at [facility] and pathology showed DLBCL. PET/CT scan on 03/08 showed extensive tumor involvement with hypermetabolic activity seen at the left pleural, numerous left rib thoracic vertebrae and sternum, bilateral mediastinum left greater than right, left chest wall and right pelvis. Completed first round of R?CHOP on 03/10. Saw oncology in the office on 03/14 and reported fatigue but was still completing his ADLs. Appreciate further oncology recommendations. 3. Acute hypoxic respiratory failure suspected secondary to aspiration pneumonitis versus pneumonia ? Not on home oxygen. Chest x-ray on admit with no concerning findings. Patient had an aspiration episode on the morning of 03/22 as below. Requiring 6 L nasal cannula on 03/23 to maintain appropriate oxygen saturations. Repeat chest x-ray on 03/23 with new opacification of the right hemithorax with patchy airspace disease in the left midlung; presume this is secondary to aspiration pneumonitis versus pneumonia. Continue treat with IV antibiotics as above. Can consider spot doses of IV Lasix but will hold on that for now. Monitor closely and wean supplemental oxygen as able. 4. Dysphagia ? Speech therapy following. Patient with episode of choking on scrambled egg on the morning of 03/22 with aspiration as above. MBSS completed on 03/23; speech therapy noted that patient had very poor pharyngeal clearance on the for swallow of the first trial (thin liquid by teaspoon) with aspiration of pharyngeal residue on the second swallow. For other trials, he had mild to moderate pharyngeal residues noted. Mild retention of cookie and upper/middle esophagus noted, somewhat cleared with liquid wash. Per speech therapy, recommendation is for easy to chew textures and thin liquids with medications whole in applesauce and one-to-one direct supervision with all food and drink. 5. Hypercalcemia of malignancy, improving ? Calcium 11.4 on admit, improved to 10.3 on hospital day 2 with significant IV fluid resuscitation. Will continue IV fluids this afternoon and encourage p.o. intake. Monitor daily calcium level. 6. Mild elevated creatinine in setting of CKD stage IIIb ? Creatinine 2.07 on admit, baseline appears to be around 1.6. Suspect secondary to mild prerenal injury. Given significant IV fluids on admit as above. Mildly improving, most recent creatinine 1.88 on 03/23. Has had fairly good urine output since admission. Continue to monitor daily BMP and urine output. 7. Chronic normocytic anemia ? Hemoglobin 8.5 on admit, recent baseline around 8-9. Monitor daily CBC. 8. Acute on chronic debility ? PT/OT/case management following. Patient was at home with his , was completing ADLs at home until few days prior to this admission. Presume his fatigue and weakness is secondary to possible infection as above as well as recent chemotherapy. Appreciate therapy recommendations. DVT prophylaxis: Heparin subcu CODE STATUS: Full code, verified Expected disposition: TBD Total clinical time spent by myself addressing the patient's medical issues, reviewing all the data, and collaborating with patient's care team: 41 minutes. Charges/Coding Visit Charges Inpatient E&M: 77053 Subs Hosp L2
--- NOTE | 2025-03-23 13:52 | SP.MBSS_ITS ---
Modified Barium Swallow Patient Information Study Date: 03/23/25 Study Time: 11:30 Direct Billable Minutes: 110 Total Minutes procedure & reportin Diagnosis: Fever unspecified R50.9; DLBCL C83.30 Referring Physician: Payam Garcia Reason for Referral: Assess swallow function, assess risk for aspiration, and determine recommendations for least restrictive diet textures and compensatory strategies to improve swallowing safety. Medical History: The patient presented to [facility] ED w/ chief complaint of febrile illness with fatigue. Patient has significant past medical history of diffuse large B-cell lymphoma who was recently started on Rituxan mini CHOP therapy on 03/10/2025. His next scheduled chemotherapy is 03/31/2025. Day before admission, he developed a fever w/ increased fatigue and decreased po intake. PET scan on March 08 shows extensive hypermetabolic activity in the left pleural area including left ribs, thoracic vertebrae, sternum, left chest wall. UA within normal limits, chest x- ray shows clear lungs. COVID and flu testing are negative. Patient was started on vancomycin and Zosyn for broad-spectrum coverage of febrile illness with no known source of infection at present time. Pt admitted to PCU for monitoring of tachycardia and IV hydration. Oncology consulted. ST consulted to assess swallowing due to bad coughing spell/choking (no Heimlich required) w/ eggs on 03/22/2025. Pt?s reports he coughs a lot when drinking, but not typically w/ foods. Pt was made NPO prior to ST consult. BSE recommended Easy to Chew textures / Thin liquids w/ NO mixed consistencies, distant supervision, and plan for MBSS in upcoming sessions. Unfortunately, today the patient has increased O2 demands and per physician, repeat chest imaging was concerning for aspiration pneumonitis. Medical History Malignant neoplasm of thorax Vasovagal syncope Rheumatic fever Hypercalcemia Dyspnea Recurrent left pleural effusion Acute kidney injury Pleural effusion Lung mass Macular degeneration Current Diet Ordered: Easy to Chew, No mixed consistencies / Thin Dentition: Natural Teeth Respiratory Status: Oxygenating on 4L/M nasal cannula (6L via nasal cannula) Penetration-Aspiration Scale Penetration-Aspiration Scale: OBJECTIVE ASSESSMENT OF SWALLOW FUNCTION (QUANTITATIVE ? PER TRIAL): PENETRATION / ASPIRATION SCALE (WOLFE): 1 = does not enter airway 2 = enters airway/above vocal folds/ejected 3 = enters airway/above vocal folds/not ejected 4 = enters airway/contacts vocal folds/ejected 5 = enters airway/contacts vocal folds/not ejected 6 = enters airway/below vocal folds/ejected 7 = enters airway/below vocal folds/not ejected despite effort 8 = enters airway/below vocal folds/no effort VIDEOFLOROSCOPIC SCALE SCORE (WOLFE): Grade I = aspiration of material that has penetrated into the laryngeal vestibule, intact cough reflex Grade II = aspiration < 10 % of the bolus, intact cough reflex Grade III = aspiration of < 10 % of the bolus, reduced cough reflex or aspiration of > 10 % of the bolus, intact cough reflex Grade IV = aspiration of > 10 % of the bolus, reduced cough reflex Penetration-Aspiration Scale Score Thin Liquid via teaspoon: Result: 8= enters airway/below vocal folds/no effort Thin Liquid via teaspoon Effortful swallow: Result: 2= enter airway/above vocal folds/ejected Thin Liquid via small single sip: cup Effortful swallow: Result: 1= does not enter airway [place] Thick Liquid via small single sip: cup: Result: 1= does not enter airway Pudding via teaspoon: Result: 1= does not enter airway Comment: Esophageal screen - Slowed emptying through the LES, which appeared narrow. Minimal barium in the lower esophagus. 1/4 Cookie: Result: 1= does not enter airway Comment: Increased barium residues on patient's vocal folds at the start of this trial, likely post prandial laryngeal penetration of pharyngeal residues. Esophageal screen - Mild retention in the upper and middle esophagus. Thin Liquid via large single sip: cup Effortful swallow: Result: 2= enter airway/above vocal folds/ejected Comment: Cued cough and re-swallow after the swallow = mostly effective. Esophageal screen - Liquid wash was somewhat effective in clearing esophageal retention of cookie. Thin Liquid via single sip: straw Effortful swallow: Result: 1= does not enter airway [place] Thick Liquid via small single sip: cup Trial 2: Result: 1= does not enter airway Comment: Esophageal screen - Minimal retention in the upper and lower esophagus. Oral Phase Labial Seal: Interlabial escape, no progression to anterior lip Tongue Control During Bolus Hold: Posterior escape of less than half of bolus Bolus Preparation/Mastication: Slow prolonged chewing/mashing with complete recollection Bolus Transport/Lingual Motion: Repetitive/disorganized tongue motion Oral Residue: Residue collection on oral structures Pharyngeal Phase Initiation of Pharyngeal Swallow: Bolus head at posterior laryngeal surgace of epiglottis Soft Palate Elevation: Trace column of contrast/air between soft palate and pharyngeal wall Laryngeal Elevation: Partial superior movement thyroid cart/partial apprx aryt- epig petiole Anterior Hyoid Excursion: Partial anterior movement Epiglottic Movement: Partial inversion Laryngeal Vestibule Closure at Height of Swallow: Incomplete; narrow column of air/contrast in laryngeal vestibule Pharyngeal Stripping Wave: Present - diminished Pharyngoesophageal Segment Opening: Minimal distension and minimal duration; marked obstruction of flow (thin by tsp) Tongue Base Retraction: Wide column of contrast between tongue base & post. pharyngeal wall (thin byt sp) Pharyngeal Residue: Majority of contrast within or on pharyngeal structures (thin by tsp) Esophageal Phase Esophageal Clearance: Esophageal retention Diagnosis/Impression Diagnosis: Mild-moderate oropharyngeal dysphagia R13.12 MBS Impressions: The oral phase is primarily marked by... -Decreased bolus control w/ premature posterior loss of <1/2 to the posterior surface of the epiglottis prior to swallow onset. -Lingual pumping w/ pudding. -Mild oral residues, which spilled to the pharynx after the swallow. -Slowed but complete mastication. The pharyngeal phase is primarily marked by... -Wide TB retraction and minimal UES opening/duration of opening and very poor pharyngeal clearance on the first swallow of the first trial (thin by tsp) w/ majority of the bolus remaining in the pharynx after the first swallow. Second swallow mostly cleared the bolus, but he had silent aspiration of pharyngeal residues on the second swallow. For all other trials, pt had mild to moderate pharyngeal residues due to mildly decreased TB retraction and pharyngeal stripping wave. -Decreased anterior hyoid excursion and laryngeal elevation. Silent aspiration of thin by tsp. Trace post prandial laryngeal penetration to the vocal folds of pharyngeal residues 1X during the study. Effortful swallow was effective in decreasing risk for aspiration. The esophageal phase is primarily marked by... -Mild retention of cookie in the upper/middle esophagus, which somewhat cleared w/ liquid wash. -Esophageal screen repeated at the end of the study w/ minimal barium remaining in the esophagus. Recommendations Diet: Easy to Chew Textures (NO MIXED CONSISTENCIES) and Thin Liquids Comment: Medications whole in applesauce Intermittent cough and re-swallow Compensatory Strategies: Small Bites, Small Sips (HARD SWALLOWS EVERY SIP), Slow Rate, Alternate bites/solids and sips/liquids and Sitting upright (Remain sitting upright during and 30-60min after meals) Supervision: 1:1 Direct Supervision (ALL FOOD AND DRINK) Recommend Repeat Modified Barium Swallow: Yes (4-8 weeks after implementation of oropharyngeal exercise program to reassess aspiration risk w/ thin liquids) Need for Skilled Speech Therapy Services: Yes Comment: -Train the patient in use of strategies to decrease risk for aspiration. -Ongoing assessment of diet tolerance of recommended textures. Monitor respiratory status closely. Consider downgrade to mildly thick liquids if worsening respiratory status. -Train the patient in a thorough oral care routine. -Train the patient in oropharyngeal exercise program to improve bolus control, pharyngeal motility, and airway closure. Recommended Referrals: GI Consult (No immediate GI consult recommended; however, if concern for worsening s/s of reflux, sensation of retention despite liquid washes, or regurgitation, would consider the patient for GI consult.) Education Completed: 1. Described result of evaluation., 2. Pt understands evaluation & agrees with goals and treatment plan., 4. Family/caregivers understand evaluation & agree w/ goals & tx plan., 7. Pt requires further education on strategies & risks. and 8. Family/caregivers require further education on strategies & risks. Comment: PET RESORT CONCIERGE thoroughly reviewed results of the MBSS and discussed importance for use of small sips, hard swallows w/ liquids. The patient felt he could follow through with these recommendations w/ the help of direct staff supervision. PET RESORT CONCIERGE spoke with pt, , and Dr. Garcia that if pt's respiratory status worsens, would consider the patient for diet downgrade to mildly thickened liquids. Education well received by all. Status Active ST Patient: Active Contact Information [facility] Speech Therapy:: Michelle Frost M.A. [facility]-[employer] RESORT [employer] Speech-Language Pathologist [facility] [address] [place] [address] [email or web address] [phone]
[2025-03-23 14:52] VITALS: BP 130/74; PULSE 120; RESP 20; TEMP 37.1; O2SAT 95
[2025-03-23 22:42] VITALS: BP 147/74; PULSE 130; RESP 20; TEMP 38; O2SAT 93
[2025-03-23] MEDS: Vancomycin HCl 1,000 MG in 0.9% Normal Saline (250mL Bag) 250 ML 250 MG IV (22:45)
[2025-03-24] VITALS (26 sets, daily range): BP systolic 97–142; BP diastolic 57–99; PULSE 97–147; RESP 16–34; TEMP 36.8–37.5; O2SAT 90–99
--- NOTE | 2025-03-24 00:29 | PCM.HOSP.N ---
Hospitalist Note Notified of increased oxygen needs, pt has trended upwards to 10L hi-flow NC at this time. Reviewed CXR from this AM and noted congestion and infiltrates to entire right side. This is a significant change since admission. It appears that pt may have been having silent aspiration, MBSS completed 03.23.25 with findings that he cannot tolerate mixed consistencies of food types. Pt is alert, having increased work of breathing using accessory muscles. He denies CP. Fine rales to RUL A&P and faint rales to BRITTANY anterior only. Dim bases bilaterally. I ordered a STAT ABG, furosemide 40mg IV x1, sputum culture, and considering Airvo vs BiPAP based on ABG results. Pt remains on vanc and pip/tazo. 0039- RT and pt prefers to try Airvo first.
[2025-03-24 00:36] LABS: Allen Test Positive; Base Excess 2 mmol/L (-2 to +2); FI02 12.0; PO2 69 mmHG (75-100); SITE L Radial; SO2 95 % (94-98)
[2025-03-24] MEDS: Piperacil/Tazobactam 3.375 GM in 0.9% Normal Saline (50mL MB+) 50 ML IV ×3 (00:52→20:51)
[2025-03-24] MEDS: 0.9% Saline Lock 10 ML Syringe IV ×2 (00:59→20:56)
[2025-03-24 06:37] LABS: Hematocrit 25.9 % (40-54); Hemoglobin 8.6 g/dL (13.0-16.5); Mean Corp Hgb Conc 33.2 g/dL (32-36); Mean Corpuscular Volume 90.2 fL (80-94); Mean Platelet Vol. 9.8 fl (6.2-12.0); Platelet Count 218 K/mm3 (150-450); RBC Distribution Width CV 15.6 % (11.6-14.6); RBC Distribution Width SD 51.4 fl (35.1-43.9); Red Blood Count 2.87 M/mm3 (4.6-6.2); White Blood Count 10.2 K/mm3 (4.4-11.0)
[2025-03-24 07:06] LABS: AST(SGOT) 48 U/L (<=37); Alanine Aminotransfer ALT/SGPT 36 U/L (<=46); Albumin, Serum 2.6 g/dL (3.4-4.8); Alkaline Phosphatase 162 U/L (40-129); Anion Gap 12 (5-15); BUN 26 mg/dL (4-19); BUN/Creat Ratio 12.8 RATIO (10-20); Bilirubin, Direct 0.17 mg/dL (0.00-0.30); Calcium,Total 10.3 mg/dL (7.6-11.0); Carbon Dioxide 22.3 mmol/L (21.0-32.0); Chloride 103 mmol/L (98-108); Estimated Creatinine Clearance 22.88 ml/min (50-250); Globulin 3.5 g/dL (2.2-4.2); Glucose 142 mg/dL (70-99); Potassium 3.0 mmol/L (3.3-5.1)
[2025-03-24] MEDS: Heparin Injection (Vial) 5,000 UNIT/ML VIAL 5000 UNIT SC ×2 (09:14→20:56)
[2025-03-24] MEDS: Potassium Chloride 10mEq/100mL 10 MEQ/100 ML IV.SOLN. 100 MEQ IV BOLUS ×4 (09:20→14:27)
--- NOTE | 2025-03-24 09:43 | PCM.PN.HOSP ---
Reason for Visit Chief Complaint: Febrile illness, fatigue Subjective Subjective Saw patient at bedside this morning, present. Patient remained quite fatigued appearing and had difficulty speaking due to dyspnea with conversation. He had mild increased work of breathing noted, similar to yesterday. Did have significant crackles noted bilaterally on auscultation. Was also noted to have increasing oxygen requirements. CT chest was obtained and showed extensive bilateral patchy ground glass and airspace opacities along with pleural effusion suggestive of pulmonary edema along with pneumonitis versus pneumonia. Given this finding and his worsening oxygen requirements, decision made to transfer the patient up to the ICU this afternoon. Patient will be initiated on IV steroids and will start spot diuresis with IV Lasix as well. Notably patient did flip into A-fib with RVR briefly this morning, no prior history of A-fib noted. Given dose of IV Cardizem 20 mg and patient appeared to convert back to sinus tachycardia. Objective Data Objective Data Vital Signs: Vital Signs Temp Pulse Resp BP Pulse Ox O2 Del Method O2 Flow Rate 98.8 F 126 H 26 H 114/76 93 Airvo 40 03/24/25 08:56 03/24/25 08:56 03/24/25 08:56 03/24/25 08:56 03/24/25 08:56 03/24/25 08:56 03/24/25 05:00 FiO2 40 03/24/25 08:56 Oxygen Flow Rate (L/min) 40 Oxygen Delivery Method Airvo Weight: 57.8 kg Body Mass Index (BMI) 20.5 Intake & Output: Intake and Output for Last 24 Hours 03/22/25 03/23/25 03/24/25 23:59 23:59 23:59 Intake Total 5130 / 5130 460 / 460 320 / 320 Output Total 1600 / 1600 Balance 5130 / 5130 460 / 460 -1280 / -1280 Lab / Micro Data 03/24/25 06:25 03/24/25 06:25 Labs: Laboratory Results - last 24 hr 03/24/25 06:25: WBC 10.2, RBC 2.87 L, Hgb 8.6 L, Hct 25.9 L, MCV 90.2, MCH 30.0, MCHC 33.2, RDW Std Deviation 51.4 H, RDW Coeff of Martha 15.6 H, Plt Count 218, MPV 9.8, Sodium 137, Potassium 3.0 L, Chloride 103, Carbon Dioxide 22.3, Anion Gap 12, BUN 26 H, Creatinine 2.07 H, Estim Creat Clear Calc 22.88 L, Est GFR (MDRD) Non-Af 32 L, BUN/Creatinine Ratio 12.8, Glucose 142 H, Calcium 10.3, Total Bilirubin 0.28, Direct Bilirubin 0.17, AST 48 H, ALT 36, Alkaline Phosphatase 162 H, Total Protein 6.0, Albumin 2.6 L, Globulin 3.5 Micro: Microbiology 03/21/25 19:50 Blood Culture (Wb) - Anticubital Right Blood Culture - Preliminary No growth in 48 hours. 03/21/25 21:10 Urine, Random Urine Culture - Final Mixed Gram Pos & Gram Neg Org 03/21/25 21:36 Mucosa - Nose SARS-CoV-2, Influenza & RSV (PCR) - Final ABG Data ABG results: ABG 03/24/25 00:31 Specimen Type ART Sample Site L Radial pH 7.48 H Bicarbonate Actual 25.1 Total CO2 26 Base Excess 2 O2 Saturation 95 O2 % 12.0 ABG pCO2 33.9 L ABG pO2 69 L Bret Test Positive O2 Delivery Device HFNC Vent Mode Not entered Physical Exam Const alert, oriented x3, no apparent distress and average body habitus Constitutional Narrative: Elderly male, fatigued and weak appearing, mild increased work of breathing noted, difficulty answering questions due to dyspnea with conversation. General Appearance: cooperative and comfortable HEENT normocephalic, head/scalp atraumatic, hearing grossly normal bilaterally, nasal mucous membranes and turbinates normal and moist oral mucous membranes Eyes PERRL, EOMs intact bilaterally and conjunctivae normal Neck full ROM Chest inspection of chest normal Resp Resp Narrative: Mild increased work of breathing noted on Airvo 40 L at rest. Significant crackles noted bilaterally throughout, no wheezing noted. Worsened from previous. Cardio no murmurs and peripheral pulses 2+ throughout Cardio Narrative: Tachycardic, regular rhythm. GI normal to inspection, nondistended, normoactive bowel sounds, soft to palpation, non-tender and non-distended Back/Spine normal ROM Extremity normal to inspection, full ROM and no pedal edema Skin no rashes or lesions noted Psych mental status grossly normal Assessment & Plan Assessment/Plan (1) Febrile illness: (2) DLBCL (diffuse large B cell lymphoma): QUALIFIERS: Lymphoma site: multiple regions Qualified Code(s): C83.38 - Diffuse large B-cell lymphoma, lymph nodes of multiple sites PLAN: Plan Patient is an 79-year-old male who presented to [facility] ED on 03/21/2025 with fevers and fatigue. 1. Fever of unknown origin ? Oncology following. Patient with recent diagnosis of diffuse large B-cell lymphoma and completed first round of chemotherapy on 03/10 as below. Developed fever and associated fatigue and decreased p.o. intake on 03/20 and continued into 03/21 so patient came in for further evaluation. Patient with no URI symptoms, no abdominal pain or discomfort, no nausea or vomiting and no dysuria. Chest x-ray unremarkable. UA unremarkable. Blood cultures pending. Per oncology, highest concern is for fever secondary to recent initiation of allopurinol for lymphoma as below. Allopurinol discontinued on 03/22. Will continue to treat with IV antibiotics empirically for now. 2. 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 Oncology following as above. Thoracotomy with biopsy done on 02/08 at [facility] and pathology showed DLBCL. PET/CT scan on 03/08 showed extensive tumor involvement with hypermetabolic activity seen at the left pleural, numerous left rib thoracic vertebrae and sternum, bilateral mediastinum left greater than right, left chest wall and right pelvis. Completed first round of R?CHOP on 03/10. Saw oncology in the office on 03/14 and reported fatigue but was still completing his ADLs. Appreciate further oncology recommendations. 3. Acute hypoxic respiratory failure ? Food Dehydrator Operator consulted. Not on home oxygen. Chest x-ray on admit with no concerning findings. Patient had an aspiration episode on the morning of 03/22 as below and was requiring 6 L nasal cannula on 03/23. Chest x-ray on 03/23 showed new opacification of the right hemithorax with some patchy airspace disease in the left midlung; will suspect this for secondary to aspiration pneumonitis versus pneumonia. Unfortunately respiratory status continued to worsen and patient was requiring Airvo up to 50 L on 03/24. CT chest without contrast obtained and showed extensive bilateral patchy ground glass and airspace opacities along with pleural effusions concerning for pulmonary edema along with pneumonia versus pneumonitis. Patient transferred to the ICU on the afternoon of 03/24. Initiated on IV Solu-Medrol 40 mg every 8 hours. Will spot dose with IV Lasix as well. Continuing IV antibiotics as above. Discussed with patient and and he remains agreeable to intubation if necessary. Will follow closely. 4. Dysphagia ? Speech therapy following. Patient with episode of choking on scrambled egg on the morning of 03/22 with aspiration as above. MBSS completed on 03/23; speech therapy noted that patient had very poor pharyngeal clearance on the for swallow of the first trial (thin liquid by teaspoon) with aspiration of pharyngeal residue on the second swallow. For other trials, he had mild to moderate pharyngeal residues noted. Mild retention of cookie and upper/middle esophagus noted, somewhat cleared with liquid wash. Due to his worsening respiratory status as above, patient made n.p.o. status on 03/24. Remains okay for critical p.o. meds at this time. 5. Hypercalcemia of malignancy, improved ? Calcium 11.4 on admit, improved to 10.3 on hospital day 2 with significant IV fluid resuscitation. Calcium level remaining stable. 6. Mild elevated creatinine in setting of CKD stage IIIb ? Creatinine 2.07 on admit, baseline appears to be around 1.6. Suspect secondary to mild prerenal injury. Given significant IV fluids on admit as above. Creatinine improved down to 1.88 on 03/23, worsened again to 2.0 on 03/24 as patient is requiring IV Lasix for respiratory status as above. Continue to monitor BMP daily. 7. Chronic normocytic anemia ? Hemoglobin 8.5 on admit, recent baseline around 8-9. Monitor daily CBC. 8. Acute on chronic debility ? PT/OT/case management following. Patient was at home with his , was completing ADLs at home until few days prior to this admission. Worsening weakness is secondary to issues above. Appreciate therapy recommendations. DVT prophylaxis: Heparin subcu CODE STATUS: Full code, verified Expected disposition: TBD Total clinical time spent by myself addressing the patient's medical issues, reviewing all the data, and collaborating with patient's care team: 52 minutes. Charges/Coding Visit Charges Inpatient E&M: 03297 Subs Hosp L3
--- NOTE | 2025-03-24 11:23 | EKG12_ITS ---
Test Reason : RHYTHM CHECK Blood Pressure : */* mmHG Vent. Rate : 135 BPM Atrial Rate : * BPM P-R Int : * ms QRS Dur : 78 ms QT Int : 280 ms P-R-T Axes : * -10 92 degrees QTcB Int : 420 ms Atrial fibrillation with rapid ventricular response Nonspecific ST and T wave abnormality Abnormal ECG When compared with ECG of 21-Mar-2025 22:14, Atrial fibrillation has replaced Sinus rhythm Confirmed by DEONDRE PEREZ ([id number]), editorial manager KIANNA ORTEGA ([id number]) on 03/28/2025 6:45:07 AM Referred By: Confirmed By: DEONDRE PEREZ
--- NOTE | 2025-03-24 12:03 | CT_ITS ---
PROCEDURE: CHEST WITHOUT CONTRAST 03/24/2025 REASON FOR EXAM: WORSENING HYPOXIA TECHNIQUE: Chest CT without contrast. Coronal and Sagittal reconstruction series were provided. One or more dose reduction techniques were used (e.g., Automated exposure control, adjustment of the mA and/or kV according to patient size, use of iterative reconstruction technique RADIATION DOSE SUMMARY: CTDlvol: 10.74 mGy DLP: 354.08 mGycm COMPARISON: Chest x-ray 03/21/2025. FINDINGS: Hardware: Monitor electrodes overlying the chest. Lymph nodes: No lymphadenopathy. Heart and Vasculature: No cardiomegaly. Coronary Artery Calcifications: Present Lungs and Airways: Asymmetric ground-glass densities in the lungs consistent with pulmonary edema Pleura: Large right and small left pleural effusions. Bilateral extensive airspace and ground-glass densities consistent with pulmonary edema Upper Abdomen: No acute findings. Bones: No acute bony abnormalities. CT/Chest without Contrast IMPRESSION: Coronary artery calcification (CAC) is is present Extensive bilateral patchy ground-glass and airspace opacities along with pleur al effusions may suggestive of pulmonary edema along with pneumonia or pneumonitis. Reading Location: [facility]
[2025-03-24] MEDS: Lactated Ringers 1,000 ML 75 ML IV (13:37)
[2025-03-24] MEDS: 0.9% Normal Saline (250mL Bag) 250 ML 15 ML IV (20:52)
[2025-03-25] VITALS (23 sets, daily range): BP systolic 96–118; BP diastolic 62–75; PULSE 87–108; RESP 12–26; TEMP 36.1–36.4; O2SAT 91–99
[2025-03-25 03:28] LABS: Hematocrit 24.4 % (40-54); Hemoglobin 8.3 g/dL (13.0-16.5); Mean Corp Hgb Conc 34.0 g/dL (32-36); Mean Corpuscular Volume 87.8 fL (80-94); Mean Platelet Vol. 10.0 fl (6.2-12.0); Platelet Count 245 K/mm3 (150-450); RBC Distribution Width CV 15.7 % (11.6-14.6); RBC Distribution Width SD 50.4 fl (35.1-43.9); Red Blood Count 2.78 M/mm3 (4.6-6.2); White Blood Count 7.0 K/mm3 (4.4-11.0)
[2025-03-25 03:48] LABS: Anion Gap 13 (5-15); BUN 33 mg/dL (4-19); BUN/Creat Ratio 15.1 RATIO (10-20); Calcium,Total 9.6 mg/dL (7.6-11.0); Carbon Dioxide 24.1 mmol/L (21.0-32.0); Chloride 101 mmol/L (98-108); Estimated Creatinine Clearance 22.03 ml/min (50-250); Glucose 171 mg/dL (70-99); Potassium 3.2 mmol/L (3.3-5.1)
--- NOTE | 2025-03-25 05:52 | EX.PCM.CONCC ---
Assessment & Plan Assessment/Plan (1) Febrile illness: PLAN: Plan RECOMMENDATIONS: 1. Continue to wean supplemental oxygen to maintain saturations at or above 90%. 2. Continue empiric antimicrobials and corticosteroids. 3. Ongoing diuresis, as tolerated by hemodynamics and renal function. 4. Dietary advancement per speech therapy recommendations. 5. Encourage incentive spirometer use and mobilize patient as tolerated. IMPRESSIONS: 1. Acute hypoxemic respiratory failure The patient initially presented to the hospital 4 days ago without any pulmonary sequelae and normal oxygen saturations on room air. He did experience an aspiration event 2 days ago with subsequent deterioration in his respiratory status, raising the possibility for an acute aspiration pneumonitis/pneumonia. In addition, the patient has been intermittently febrile. However, the ground glass opacities noted on CT imaging could also represent sequelae of pulmonary edema in the setting of decompensated heart failure with preserved ejection fraction. The patient appears to have improved quite a bit symptomatically after diuretics were initiated yesterday. At this time, I would plan to continue empiric antibiotics, pending sputum culture results along with scheduled diuretics, as tolerated by hemodynamics and renal function. In addition, given the severity of his disease, corticosteroids will be continued. Supplemental oxygen will be weaned to maintain saturations at or above 90%. 2. History of diffuse large B-cell lymphoma on chemotherapy/hypercalcemia/chronic kidney disease/anemia/chronic debility Complicates care, management, recovery and prognosis. Continue supportive measures as noted above. Physical therapy to work with the patient. Recommend dietary advancement per speech therapy recommendations. This note was generated with [employer] dictation software. It may contain incorrect words, spelling, and punctuation that were not noted in checking the note before signing. HPI Consult Data Date of Consult: 03/25/25 HPI Narrative Reason for Consultation: Respiratory failure HPI Narrative: The patient is an 79-year-old male, with a history as outlined below, who presented to the emergency department on March 21 with generalized malaise, fevers and fatigue. The patient's medical history is significant for recently diagnosed diffuse large B-cell lymphoma in January 2025. The patient was subsequently placed on Rituxan with mini CHOP on March 10, 2025 along with allopurinol. On presentation to the emergency department, the patient was noted to be febrile and tachycardic with a presenting blood pressure of 148/75 mmHg. He was initially maintaining appropriate oxygen saturations on room air. Laboratory evaluation was notable for a white blood cell count of 6400 with a hemoglobin of 8.5 g/dL and platelet count of 160,000. Chemistry profile was notable for a sodium of 129 with a chloride of 93, BUN of 33 and creatinine of 2.07. Lactate was within normal limits. Calcium was noted to be 11.4 mg/dL. Troponin was mildly elevated at 47. Urine analysis was unremarkable. Initial chest x-ray demonstrated no acute cardiopulmonary process. The patient was ultimately placed on empiric antibiotics for fever of unknown origin. He was admitted to the regular medical floor for further management. On March 22, the patient was documented to have choked on a scrambled egg while eating breakfast. His oxygenation status began to deteriorate after that time. Speech therapy was consulted and a modified barium swallow was completed on March 23. CT imaging the chest demonstrated extensive bilateral ground glass opacities with pleural effusions, right greater than left. Sputum culture was obtained. In light of the patient's increasing oxygen requirements, he was transferred to the medical intensive care unit on March 24. BNP is elevated at 2320. TSH is within normal limits. At the present time, the patient has been maintained on Zosyn, vancomycin and Solu-Medrol. In addition, the patient did receive Lasix yesterday and again this morning. Creatinine is stable at 2.15. [facility] Medical History Malignant neoplasm of thorax Vasovagal syncope Rheumatic fever Hypercalcemia Dyspnea Recurrent left pleural effusion Acute kidney injury Pleural effusion Lung mass Macular degeneration Home Medications ?Medication ?Instructions ?Recorded ?Last Taken ?Type sennosides 8.6 mg capsule (senna) 8.6 mg PO DAILY PRN constipation 5 02/14/25 Unknown Rx days #5 caps allopurinol 300 mg tablet 300 mg PO QDAY #30 tabs 03/02/25 03/22/25 Rx ondansetron 8 mg disintegrating 8 mg PO Q12H PRN nausea and 03/10/25 Unknown Rx tablet vomiting #30 tabs Allergy/AdvReac Type Severity Reaction Status Date / Time No Known Allergies Allergy Verified 03/21/25 19:02 Family History Brother Cancer throat Epilepsy Glaucoma Father Glaucoma Other Throat cancer Surgical History History of lung biopsy History of thoracentesis Social History household members: significant other current occupational status: retired 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 Physical Exam Const alert, oriented x3 and no apparent distress Constitutional Narrative: Fatigued in appearance. HEENT normocephalic and head/scalp atraumatic Eyes PERRL, EOMs intact bilaterally and conjunctivae normal Neck supple General: trachea midline Chest inspection of chest normal Resp normal respiratory effort and no use of accessory muscles Auscultation: rales and diminished lung sounds Cardio regular rate and regular rhythm GI normal to inspection, nondistended, normoactive bowel sounds Extremity no clubbing, cyanosis or edema Skin no rashes or lesions noted Neuro CN's II-XII intact bilaterally, moves all extremities and no focal motor deficits Psych Mood & Affect: flat affect Lab / Micro Data 03/25/25 03:24 03/25/25 03:24 Labs: Laboratory Results - last 24 hr 03/24/25 06:25: WBC 10.2, RBC 2.87 L, Hgb 8.6 L, Hct 25.9 L, MCV 90.2, MCH 30.0, MCHC 33.2, RDW Std Deviation 51.4 H, RDW Coeff of Martha 15.6 H, Plt Count 218, MPV 9.8, Sodium 137, Potassium 3.0 L, Chloride 103, Carbon Dioxide 22.3, Anion Gap 12, BUN 26 H, Creatinine 2.07 H, Estim Creat Clear Calc 22.88 L, Est GFR (MDRD) Non-Af 32 L, BUN/Creatinine Ratio 12.8, Glucose 142 H, Calcium 10.3, Total Bilirubin 0.28, Direct Bilirubin 0.17, AST 48 H, ALT 36, Alkaline Phosphatase 162 H, Total Protein 6.0, Albumin 2.6 L, Globulin 3.5 03/25/25 03:24: WBC 7.0, RBC 2.78 L, Hgb 8.3 L, Hct 24.4 L, MCV 87.8, MCH 29.9, MCHC 34.0, RDW Std Deviation 50.4 H, RDW Coeff of Martha 15.7 H, Plt Count 245, MPV 10.0, Sodium 137, Potassium 3.2 L, Chloride 101, Carbon Dioxide 24.1, Anion Gap 13, BUN 33 H, Creatinine 2.15 H, Estim Creat Clear Calc 22.03 L, Est GFR (MDRD) Non-Af 30 L, BUN/Creatinine Ratio 15.1, Glucose 171 H, Calcium 9.6 Micro: Microbiology 03/21/25 19:50 Blood Culture (Wb) - Anticubital Right Blood Culture - Preliminary No growth in 48 hours. 03/21/25 21:10 Urine, Random Urine Culture - Final Mixed Gram Pos & Gram Neg Org Imaging Radiology Impression Chest CT 03/24/25 12:03 IMPRESSION: Coronary artery calcification (CAC) is is present Extensive bilateral patchy ground-glass and airspace opacities along with pleural effusions may suggestive of pulmonary edema along with pneumonia or pneumonitis. Reading Location: [id number] Charges/Coding Visit Charges Inpatient E&M: 18991 Init Hosp L3
[2025-03-25 07:50] LABS: Magnesium 2.1 mg/dL (1.5-2.2); Pro- Brain NATRIURETIC PEPTIDE 2320 pg/mL (<=1800); Uric Acid 3.6 mg/dL (3.5-7.2)
[2025-03-25] MEDS: Piperacil/Tazobactam 3.375 GM in 0.9% Normal Saline (50mL MB+) 50 ML IV ×3 (09:34→20:28)
[2025-03-25] MEDS: Heparin Injection (Vial) 5,000 UNIT/ML VIAL 5000 UNIT SC ×2 (10:53→20:28)
[2025-03-25] MEDS: Potassium Chloride 10mEq/100mL 10 MEQ/100 ML IV.SOLN. 100 MEQ IV BOLUS ×4 (10:53→13:51)
--- NOTE | 2025-03-25 11:34 | PCM.PN.HOSP ---
Reason for Visit Chief Complaint: Febrile illness, fatigue Subjective Subjective Saw patient at bedside this morning, present. Patient appears mild to moderately improved from yesterday, oxygen requirements much improved. Patient still feels quite weak and is having difficulty speaking due to fatigue but he reports minimal shortness of breath at rest currently. Still does not feel like eating or drinking much at this time. No other new concerns. Objective Data Objective Data Vital Signs: Vital Signs Temp Pulse Resp BP Pulse Ox O2 Del Method O2 Flow Rate 96.9 F L 100 23 H 102/69 91 Nasal Cannula 8 03/25/25 10:55 03/25/25 10:55 03/25/25 10:55 03/25/25 10:55 03/25/25 10:55 03/25/25 10:55 03/25/25 10:55 FiO2 50 03/25/25 09:50 Oxygen Flow Rate (L/min) 8 Oxygen Delivery Method Nasal Cannula Weight: 56.4 kg Body Mass Index (BMI) 20.0 Intake & Output: Intake and Output for Last 24 Hours 03/23/25 03/24/25 03/25/25 23:59 23:59 23:59 Intake Total 460 / 460 957.5 / 957.5 50 / 50 Output Total 3000 / 3450 450 / 450 Balance 460 / 460 -2042.5 / -2492.5 -400 / -400 Lab / Micro Data 03/25/25 03:24 03/25/25 03:24 Labs: Laboratory Results - last 24 hr 03/25/25 03:24: WBC 7.0, RBC 2.78 L, Hgb 8.3 L, Hct 24.4 L, MCV 87.8, MCH 29.9, MCHC 34.0, RDW Std Deviation 50.4 H, RDW Coeff of Martha 15.7 H, Plt Count 245, MPV 10.0, Sodium 137, Potassium 3.2 L, Chloride 101, Carbon Dioxide 24.1, Anion Gap 13, BUN 33 H, Creatinine 2.15 H, Estim Creat Clear Calc 22.03 L, Est GFR (MDRD) Non-Af 30 L, BUN/Creatinine Ratio 15.1, Glucose 171 H, Uric Acid 3.6, Calcium 9.6, Phosphorus 3.7, Magnesium 2.1, NT pro BNP II 2320 H Micro: Microbiology 03/21/25 19:50 Blood Culture (Wb) - Anticubital Right Blood Culture - Preliminary No growth in 48 hours. 03/21/25 21:10 Urine, Random Urine Culture - Final Mixed Gram Pos & Gram Neg Org 03/21/25 21:36 Mucosa - Nose SARS-CoV-2, Influenza & RSV (PCR) - Final Radiography Diagnostic Testing: Radiology Impression Chest CT 03/24/25 12:03 IMPRESSION: Coronary artery calcification (CAC) is is present Extensive bilateral patchy ground-glass and airspace opacities along with pleural effusions may suggestive of pulmonary edema along with pneumonia or pneumonitis. Reading Location: [facility] Physical Exam Const alert, oriented x3, no apparent distress and average body habitus Constitutional Narrative: Elderly male, fatigued and weak appearing but energy level mildly improving yesterday, no increased work of breathing noted this morning, otherwise laying back in bed and in no acute distress. General Appearance: cooperative and comfortable HEENT normocephalic, head/scalp atraumatic, hearing grossly normal bilaterally, nasal mucous membranes and turbinates normal and moist oral mucous membranes Eyes PERRL, EOMs intact bilaterally and conjunctivae normal Neck full ROM Chest inspection of chest normal Resp Resp Narrative: Breathing comfortably on high flow nasal cannula 8 L at rest. Diminished breath sounds bilaterally throughout but improved from yesterday. Cardio no murmurs and peripheral pulses 2+ throughout Cardio Narrative: Tachycardic, regular rhythm. GI normal to inspection, nondistended, normoactive bowel sounds, soft to palpation, non-tender and non-distended Back/Spine normal ROM Extremity normal to inspection, full ROM and no pedal edema Skin no rashes or lesions noted Psych mental status grossly normal Assessment & Plan Assessment/Plan (1) Febrile illness: (2) DLBCL (diffuse large B cell lymphoma): QUALIFIERS: Lymphoma site: multiple regions Qualified Code(s): C83.38 - Diffuse large B-cell lymphoma, lymph nodes of multiple sites PLAN: Plan Patient is an 79-year-old male who presented to [facility] ED on 03/21/2025 with fevers and fatigue. 1. Fever of unknown origin ? Oncology following. Patient with recent diagnosis of diffuse large B-cell lymphoma and completed first round of chemotherapy on 03/10 as below. Developed fever and associated fatigue and decreased p.o. intake on 03/20 and continued into 03/21 so patient came in for further evaluation. Patient with no URI symptoms, no abdominal pain or discomfort, no nausea or vomiting and no dysuria. Chest x-ray unremarkable. UA unremarkable. Blood cultures pending. Per oncology, highest concern is for fever secondary to recent initiation of allopurinol for lymphoma as below. Allopurinol discontinued on 03/22. Will continue to treat with IV antibiotics empirically for now. 2. 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 Oncology following as above. Thoracotomy with biopsy done on 02/08 at [facility] and pathology showed DLBCL. PET/CT scan on 03/08 showed extensive tumor involvement with hypermetabolic activity seen at the left pleural, numerous left rib thoracic vertebrae and sternum, bilateral mediastinum left greater than right, left chest wall and right pelvis. Completed first round of R?CHOP on 03/10. Saw oncology in the office on 03/14 and reported fatigue but was still completing his ADLs. Appreciate further oncology recommendations. 3. Acute hypoxic respiratory failure, improving ? [employer] following. Not on home oxygen. Chest x-ray on admit with no concerning findings. Patient had an aspiration episode on the morning of 03/22 as below and was requiring 6 L nasal cannula on 03/23. Chest x-ray on 03/23 showed new opacification of the right hemithorax with some patchy airspace disease in the left midlung; will suspect this for secondary to aspiration pneumonitis versus pneumonia. Unfortunately respiratory status continued to worsen and patient was requiring Airvo up to 50 L on 03/24. CT chest without contrast obtained and showed extensive bilateral patchy ground glass and airspace opacities along with pleural effusions concerning for pulmonary edema along with pneumonia versus pneumonitis. Patient transferred to the ICU on the afternoon of 03/24. Treated with IV Solu-Medrol 40 mg every 8 hours and IV Lasix 40 mg twice daily and patient with significant improvement in oxygen status on 03/25, down to 8 L high flow at rest. Continue steroids and Lasix for now. Continue IV antibiotics as above. 4. Dysphagia ? Speech therapy following. Patient with episode of choking on scrambled egg on the morning of 03/22 with aspiration as above. MBSS completed on 03/23; speech therapy noted that patient had very poor pharyngeal clearance on the for swallow of the first trial (thin liquid by teaspoon) with aspiration of pharyngeal residue on the second swallow. For other trials, he had mild to moderate pharyngeal residues noted. Mild retention of cookie and upper/middle esophagus noted, somewhat cleared with liquid wash. With respiratory status improving on 03/25, okay for modified diet as ordered by speech therapy. Monitor. 5. Hypercalcemia of malignancy, improved ? Calcium 11.4 on admit, improved to 10.3 on hospital day 2 with significant IV fluid resuscitation. Calcium level remaining stable. 6. Mild elevated creatinine in setting of CKD stage IIIb ? Creatinine 2.07 on admit, baseline appears to be around 1.6. Suspect secondary to mild prerenal injury. Given significant IV fluids on admit as above. Creatinine improved down to 1.88 on 03/23, worsened again to 2.0 on 03/24 as patient is requiring IV Lasix for respiratory status as above. Continue to monitor BMP daily. 7. Chronic normocytic anemia ? Hemoglobin 8.5 on admit, recent baseline around 8-9. Monitor daily CBC. 8. Acute on chronic debility ? PT/OT/case management following. Patient was at home with his , was completing ADLs at home until few days prior to this admission. Worsening weakness is secondary to issues above. Appreciate therapy recommendations. DVT prophylaxis: Heparin subcu CODE STATUS: Full code, verified Expected disposition: TBD Total clinical time spent by myself addressing the patient's medical issues, reviewing all the data, and collaborating with patient's care team: 39 minutes. Charges/Coding Visit Charges Inpatient E&M: 29703 Subs Hosp L2
[2025-03-26 02:00] VITALS: BP 103/71; PULSE 92; RESP 14; TEMP 36.2; O2SAT 98
[2025-03-26 03:00] VITALS: PULSE 98
[2025-03-26 04:10] VITALS: BMI 19.6
[2025-03-26 04:14] LABS: Hematocrit 24.5 % (40-54); Hemoglobin 8.3 g/dL (13.0-16.5); Mean Corp Hgb Conc 33.9 g/dL (32-36); Mean Corpuscular Volume 88.4 fL (80-94); Mean Platelet Vol. 10.3 fl (6.2-12.0); Platelet Count 304 K/mm3 (150-450); RBC Distribution Width CV 15.7 % (11.6-14.6); RBC Distribution Width SD 51.1 fl (35.1-43.9); Red Blood Count 2.77 M/mm3 (4.6-6.2); White Blood Count 9.6 K/mm3 (4.4-11.0)
[2025-03-26 04:42] LABS: Anion Gap 14 (5-15); BUN 52 mg/dL (4-19); BUN/Creat Ratio 22.8 RATIO (10-20); Calcium,Total 10.1 mg/dL (7.6-11.0); Carbon Dioxide 24.5 mmol/L (21.0-32.0); Chloride 102 mmol/L (98-108); Estimated Creatinine Clearance 19.91 ml/min (50-250); Glucose 196 mg/dL (70-99); Potassium 3.2 mmol/L (3.3-5.1)
[2025-03-26] MEDS: 0.9% Normal Saline (250mL Bag) 250 ML 15 ML IV (05:03)
[2025-03-26] MEDS: 0.9% Saline Lock 10 ML Syringe IV ×2 (05:03→21:33)
[2025-03-26] MEDS: Piperacil/Tazobactam 3.375 GM in 0.9% Normal Saline (50mL MB+) 50 ML IV ×3 (05:04→21:33)
[2025-03-26 07:03] VITALS: O2SAT 94
[2025-03-26] MEDS: Potassium Chloride 10mEq/100mL 10 MEQ/100 ML IV.SOLN. 100 MEQ IV BOLUS ×4 (08:00→11:08)
[2025-03-26] MEDS: Heparin Injection (Vial) 5,000 UNIT/ML VIAL 5000 UNIT SC ×2 (08:01→21:33)
--- NOTE | 2025-03-26 10:28 | PCM.PN.HOSP ---
Reason for Visit Chief Complaint: Febrile illness, fatigue Subjective Subjective Saw patient at bedside this morning. Patient remained weak appearing but was laying back in bed and breathing comfortably and oxygen requirements are continuing to improve. He continues to have a weak voice but was saying that he was able to eat some breakfast this morning and ate more than he has in several days. No other new concerns this morning. Objective Data Objective Data Vital Signs: Vital Signs Temp Pulse Resp BP Pulse Ox O2 Del Method O2 Flow Rate 97.2 F L 98 14 103/71 98 High Flow 6 03/26/25 02:00 03/26/25 03:00 03/26/25 02:00 03/26/25 02:00 03/26/25 02:00 03/26/25 08:44 03/26/25 08:44 FiO2 50 03/25/25 09:50 Oxygen Flow Rate (L/min) 6 Oxygen Delivery Method High Flow Weight: 55.4 kg Body Mass Index (BMI) 19.6 Intake & Output: Intake and Output for Last 24 Hours 03/24/25 03/25/25 03/26/25 23:59 23:59 23:59 Intake Total 957.5 / 957.5 796.66 / 796.66 300 / 300 Output Total 3000 / 3450 2100 / 2100 350 / 350 Balance -2042.5 / -2492.5 -1303.34 / -1303.34 -50 / -50 Lab / Micro Data 03/26/25 04:08 03/26/25 04:08 Labs: Laboratory Results - last 24 hr 03/26/25 04:08: WBC 9.6, RBC 2.77 L, Hgb 8.3 L, Hct 24.5 L, MCV 88.4, MCH 30.0, MCHC 33.9, RDW Std Deviation 51.1 H, RDW Coeff of Martha 15.7 H, Plt Count 304, MPV 10.3, Sodium 140, Potassium 3.2 L, Chloride 102, Carbon Dioxide 24.5, Anion Gap 14, BUN 52 H, Creatinine 2.28 H, Estim Creat Clear Calc 19.91 L, Est GFR (MDRD) Non-Af 28 L, BUN/Creatinine Ratio 22.8 H, Glucose 196 H, Calcium 10.1 Micro: Microbiology 03/24/25 18:15 Sputum, Expectorated/Coughed Gram Stain - Final 03/24/25 18:15 Sputum, Expectorated/Coughed Respiratory Culture - Preliminary Presumptive C albicans 03/25/25 14:40 Nasal Secretion MRSA (PCR) - Final 03/21/25 19:50 Blood Culture (Wb) - Anticubital Right Blood Culture - Preliminary No growth in 48 hours. 03/21/25 21:10 Urine, Random Urine Culture - Final Mixed Gram Pos & Gram Neg Org 03/21/25 21:36 Mucosa - Nose SARS-CoV-2, Influenza & RSV (PCR) - Final Physical Exam Const alert, oriented x3, no apparent distress and average body habitus Constitutional Narrative: Elderly male, fatigued and weak appearing but energy level slowly improving, no increased work of breathing noted this morning, otherwise laying back in bed and in no acute distress. General Appearance: cooperative and comfortable HEENT normocephalic, head/scalp atraumatic, hearing grossly normal bilaterally, nasal mucous membranes and turbinates normal and moist oral mucous membranes Eyes PERRL, EOMs intact bilaterally and conjunctivae normal Neck full ROM Chest inspection of chest normal Resp Resp Narrative: Breathing comfortably on 6 L NC at rest. Diminished breath sounds bilaterally throughout but slowly improving. Cardio no murmurs and peripheral pulses 2+ throughout Cardio Narrative: Tachycardic, regular rhythm. GI normal to inspection, nondistended, normoactive bowel sounds, soft to palpation, non-tender and non-distended Back/Spine normal ROM Extremity normal to inspection, full ROM and no pedal edema Skin no rashes or lesions noted Psych mental status grossly normal Assessment & Plan Assessment/Plan (1) Febrile illness: (2) DLBCL (diffuse large B cell lymphoma): QUALIFIERS: Lymphoma site: multiple regions Qualified Code(s): C83.38 - Diffuse large B-cell lymphoma, lymph nodes of multiple sites PLAN: Plan Patient is an 79-year-old male who presented to [facility] ED on 03/21/2025 with fevers and fatigue. 1. Acute hypoxic respiratory failure, improving ? [employer] following. Not on home oxygen. Chest x-ray on admit with no concerning findings. Patient had an aspiration episode on the morning of 03/22 as below and was requiring 6 L nasal cannula on 03/23. Chest x-ray on 03/23 showed new opacification of the right hemithorax with some patchy airspace disease in the left midlung; will suspect this for secondary to aspiration pneumonitis versus pneumonia. Unfortunately respiratory status continued to worsen and patient was requiring Airvo up to 50 L on 03/24. CT chest without contrast obtained and showed extensive bilateral patchy ground glass and airspace opacities along with pleural effusions concerning for pulmonary edema along with pneumonia versus pneumonitis. Patient transferred to the ICU on the afternoon of 03/24. Treated with IV Solu-Medrol 40 mg every 8 hours and IV Lasix 40 mg twice daily and patient with significant improvement in oxygen status on 03/25, down to 8 L high flow at rest. Continuing to improve on 03/26, down to 6 L nasal cannula. Creatinine worsening so holding on further Lasix for now. Continue IV Solu-Medrol today and will de-escalate to p.o. prednisone tomorrow. Continue IV antibiotics as below. Stable for transfer to PCU on 03/26. 2. Fever of unknown origin, improved ? Oncology following. Patient with recent diagnosis of diffuse large B-cell lymphoma and completed first round of chemotherapy on 03/10 as below. Developed fever and associated fatigue and decreased p.o. intake on 03/20 and continued into 03/21 so patient came in for further evaluation. Patient with no URI symptoms, no abdominal pain or discomfort, no nausea or vomiting and no dysuria. Chest x-ray unremarkable. UA unremarkable. Blood cultures negative. Per oncology, highest concern is for fever secondary to recent initiation of allopurinol for lymphoma as below. Allopurinol discontinued on 03/22. Continue IV Zosyn. Will complete 7-day course of antibiotics total, stop date 03/28. 3. 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 Oncology following as above. Thoracotomy with biopsy done on 02/08 at [facility] and pathology showed DLBCL. PET/CT scan on 03/08 showed extensive tumor involvement with hypermetabolic activity seen at the left pleural, numerous left rib thoracic vertebrae and sternum, bilateral mediastinum left greater than right, left chest wall and right pelvis. Completed first round of R?CHOP on 03/10. Saw oncology in the office on 03/14 and reported fatigue but was still completing his ADLs. Appreciate further oncology recommendations. 4. Dysphagia ? Speech therapy following. Patient with episode of choking on scrambled egg on the morning of 03/22 with aspiration as above. MBSS completed on 03/23; speech therapy noted that patient had very poor pharyngeal clearance on the for swallow of the first trial (thin liquid by teaspoon) with aspiration of pharyngeal residue on the second swallow. For other trials, he had mild to moderate pharyngeal residues noted. Mild retention of cookie and upper/middle esophagus noted, somewhat cleared with liquid wash. With respiratory status improving on 03/25, okay for modified diet as ordered by speech therapy. Remains okay for diet and encouraging p.o. intake as able. 5. Acute on chronic debility ? PT/OT/case management following. Patient lives at home with and was completing ADLs at home without significant issue until few days prior to this admission. Unfortunately he is now significantly weaker than his baseline due to medical issues as above and poor p.o. intake. Presume patient will need SNF placement on discharge, appreciate therapy recommendations. 6. Hypercalcemia of malignancy, improved ? Calcium 11.4 on admit, improved to 10.3 on hospital day 2 with significant IV fluid resuscitation. Calcium level remaining stable. 7. Mild elevated creatinine in setting of CKD stage IIIb ? Creatinine 2.07 on admit, baseline appears to be around 1.6. Suspect secondary to mild prerenal injury. Given significant IV fluids on admit as above. Creatinine improved with shelly 1.88 on 03/22. Reinitiated on IV Lasix given concern for pulmonary edema as above. Most recent creatinine 2.28 on 03/26. Holding Lasix for today, will plan to resume daily Lasix tomorrow. Continue to monitor BMP and urine output daily. 8. Chronic normocytic anemia ? Hemoglobin 8.5 on admit, recent baseline around 8-9. Monitor daily CBC. DVT prophylaxis: Heparin subcu CODE STATUS: Full code, verified Expected disposition: SNF, 2-3 days Total clinical time spent by myself addressing the patient's medical issues, reviewing all the data, and collaborating with patient's care team: 39 minutes. Charges/Coding Visit Charges Inpatient E&M: 97083 Subs Hosp L2
--- NOTE | 2025-03-26 11:40 | CASEMGMT ---
Social Work SW created in [facility] a list of fpc facilities in network w/pt's insurance, in pt's preferred geographic area, and complete w/quality and resource use data. CROW Powell
--- NOTE | 2025-03-26 13:14 | CASEMGMT ---
During rounds, the hospitalist reports that the pt may need a short term SNF stay to help the pt return to his PLOF. Hospitalist states that the pt will be medically ready Friday at the earliest. CHRISTINE CM to the pt's room at this time. Pt's at the bedside. SNF list provided to the pt's at this time (see SW note). PT has been ordered for another evaluation. Encouraged the pt and the pt's to review the list and select 3 preferences over the weekend, if SNF is the route that they want to pursue at [place]. Pt and pt's state understanding and deny further questions or concerns at this time.
--- NOTE | 2025-03-26 15:21 | PN.CC_ITS ---
Objective Data Objective Data Vital Signs: Vital Signs Last response 3 Temperature 36.4 C L 03/26/25 15:13 Temperature Source Oral 03/26/25 15:13 Pulse Rate 88 03/26/25 15:13 Pulse Strength Weak (1+) 03/26/25 08:43 Respiratory Rate 18 03/26/25 15:13 Respiratory Effort Normal, Non-Labored 03/26/25 14:00 Respiratory Depth Normal 03/26/25 14:00 Respiratory Pattern Normal 03/26/25 14:00 Blood Pressure 116/70 03/26/25 15:13 Blood Pressure Mean 85 03/26/25 15:13 Blood Pressure Source Monitor 03/26/25 15:13 Blood Pressure Position Semi-Fowlers 03/26/25 15:13 Blood Pressure Location Right Arm 03/26/25 15:13 Pulse Ox 95 03/26/25 15:13 Oxygen Delivery Method High Flow 03/26/25 15:13 Oxygen Flow Rate (L/min) 4 03/26/25 15:13 Fraction of Inspired Oxygen (FIO2) 50 03/25/25 09:50 I&O: I&O Last 24 Hours 3 03/25/25 03/26/25 03/26/25 23:59 11:59 23:59 Intake Total 646.66 / 796.66 400 / 500 100 / 500 Output Total 1000 / 2100 350 / 350 Balance -353.34 / -1303.34 50 / 150 100 / 150 I&O: Total Stay 3 03/21/25 18:58 thru 03/26/25 12:30 Intake Total 7944.16 Output Total 5450 Balance 2494.16 Current Meds Ordered / Administered: Current meds ordered / Administered 3 Generic Name Dose Route Start Last Admin Trade Name Freq PRN Reason Stop Dose Admin Acetaminophen 650 mg 03/22/25 00:54 03/22/25 18:17 Acetaminophen 325 Mg Tablet PO 650 mg Q6H PRN PRN Administration Pain 1-10 Or Fever >100.7 Furosemide 40 mg 03/27/25 10:00 Furosemide 40 Mg/4 Ml Vial IV DAILY [facility] Protocol Heparin Sodium (Porcine) 5,000 unit 03/22/25 22:00 03/26/25 08:01 Heparin Injection (Vial) 5,000 Unit/Ml Vial SC 5,000 unit Q12 DAISY Administration Sodium Chloride 250 mls @ 15 mls/hr 03/22/25 00:55 03/26/25 05:03 IV 15 mls/hr .[id number] PRN Administration Saline Flush Sodium Chloride 250 mls @ 15 mls/hr 03/22/25 00:55 IV .[id number] PRN Additional IVPB Infusion Piperacillin Sod/Tazobactam 50 mls @ 12.5 mls/hr 03/25/25 08:00 03/26/25 14:49 Sod 3.375 gm/ Sodium Chloride IV 12.5 mls/hr Q8 DAISY Administration Methylprednisolone Sodium Succinate 40 mg 03/24/25 14:20 03/26/25 14:49 Methylprednisolone Sod Succ 40 Mg/Ml Vial IV 03/26/25 23:59 40 mg Q8 DAISY Administration Nutritional Formula (Lactose Free) 120 ml 03/25/25 10:00 03/26/25 14:48 Ensure Plus High Protein 120 Ml Liquid PO Not Given 4X/DAY DAISY Ondansetron HCl 8 mg 03/22/25 01:06 Ondansetron 8 Mg Tablet PO Q12H PRN PRN nausea and vomiting Prednisone 40 mg 03/27/25 08:00 Prednisone 20 Mg Tablet PO BREAKFAST DAISY Senna 1 tablet 03/22/25 01:06 Senna Tablet PO DAILY PRN PRN constipation Sodium Chloride 10 - 40 ml 03/22/25 00:55 03/26/25 05:03 0.9% Saline Lock 10 Ml Syringe IV 10 ml UD PRN Administration SALINE FLUSH Lab / Micro Data 03/26/25 04:08 03/26/25 04:08 Labs: Laboratory Results - last 24 hr 03/26/25 04:08: WBC 9.6, RBC 2.77 L, Hgb 8.3 L, Hct 24.5 L, MCV 88.4, MCH 30.0, MCHC 33.9, RDW Std Deviation 51.1 H, RDW Coeff of Martha 15.7 H, Plt Count 304, MPV 10.3, Sodium 140, Potassium 3.2 L, Chloride 102, Carbon Dioxide 24.5, Anion Gap 14, BUN 52 H, Creatinine 2.28 H, Estim Creat Clear Calc 19.91 L, Est GFR (MDRD) Non-Af 28 L, BUN/Creatinine Ratio 22.8 H, Glucose 196 H, Calcium 10.1 Micro: Microbiology 03/24/25 18:15 Sputum, Expectorated/Coughed Gram Stain - Final 03/24/25 18:15 Sputum, Expectorated/Coughed Respiratory Culture - Preliminary Presumptive C albicans 03/25/25 14:40 Nasal Secretion MRSA (PCR) - Final Assessment and Plan . Assessment and plan: HPI 79 yo man w/ recently diagnosed lymphoma, s/p chemotherapy, admitted w/ fever and malaise. Developed hypoxemia and extensive pulmonary infiltrates after hospital admission He has received empiric anti-bacterials, steroids, loop diuretics 03/26/25 Patient seen and examined. Chart and data reviewed. He is breathing 4 LPM O2 comfortably at rest I/O (-) over past 48 hours w/ loop diuretics EXAM GEN NAD VS as above HEENT O2 N/C, hoarse NECK supple COR RRR CHEST coarse ABD soft EXT minimal edema SKIN w/d TRAVIS NF IMPRESSION Acute hypoxemic respiratory failure requiring high-flow O2 - improving Extensive bilateral pulmonary infiltrates - CT reviewed Elevated NT-p-BNP / Hypertensive heart disease / CKD -supplemental O2 as needed -would continue loop diuretics - goal I/O (-) -short course steroids and ABX The entirety of this encounter was done via Telemedicine
[2025-03-26 21:13] VITALS: BP 117/79; PULSE 108; RESP 18; TEMP 36.4; O2SAT 94
[2025-03-27] VITALS (7 sets, daily range): BP systolic 116–141; BP diastolic 67–80; PULSE 99–113; RESP 18; TEMP 36.4–36.6; O2SAT 90–100; BMI 19.5
[2025-03-27 04:53] LABS: Hematocrit 25.5 % (40-54); Hemoglobin 8.2 g/dL (13.0-16.5); Mean Corp Hgb Conc 32.2 g/dL (32-36); Mean Corpuscular Volume 90.1 fL (80-94); Mean Platelet Vol. 10.5 fl (6.2-12.0); Platelet Count 297 K/mm3 (150-450); RBC Distribution Width CV 15.7 % (11.6-14.6); RBC Distribution Width SD 51.5 fl (35.1-43.9); Red Blood Count 2.83 M/mm3 (4.6-6.2); White Blood Count 10.2 K/mm3 (4.4-11.0)
[2025-03-27] MEDS: Piperacil/Tazobactam 3.375 GM in 0.9% Normal Saline (50mL MB+) 50 ML IV ×3 (05:16→21:45)
[2025-03-27 05:36] LABS: Anion Gap 13 (5-15); BUN 62 mg/dL (4-19); BUN/Creat Ratio 31.0 RATIO (10-20); Calcium,Total 10.4 mg/dL (7.6-11.0); Carbon Dioxide 24.3 mmol/L (21.0-32.0); Chloride 108 mmol/L (98-108); Estimated Creatinine Clearance 22.59 ml/min (50-250); Glucose 161 mg/dL (70-99); Potassium 3.3 mmol/L (3.3-5.1)
--- NOTE | 2025-03-27 10:43 | PN.HOSP_ITS ---
Reason for Visit Chief Complaint: Febrile illness, fatigue Subjective Subjective Saw patient at bedside this morning. Patient was sitting back in bedside chair and in no acute distress. He remains fatigued but is continuing to improve slowly from previous days. He does continue have a weak voice but was speaking in more full sentences today and notes that he was worn out with moving from the bed to the bedside chair. Was able to eat some breakfast today and noted he is trying to eat the high-protein things first. No other new concerns this morning. Objective Data Objective Data Vital Signs: Vital Signs Temp Pulse Resp BP Pulse Ox O2 Del Method O2 Flow Rate 97.8 F 112 H 18 133/80 H 94 Nasal Cannula 2 03/27/25 09:45 03/27/25 09:45 03/27/25 09:45 03/27/25 09:45 03/27/25 09:45 03/27/25 09:45 03/27/25 09:45 FiO2 50 03/25/25 09:50 Oxygen Flow Rate (L/min) 2 Oxygen Delivery Method Nasal Cannula Weight: 55.2 kg Body Mass Index (BMI) 19.5 Intake & Output: Intake and Output for Last 24 Hours 03/25/25 03/26/25 03/27/25 23:59 23:59 23:59 Intake Total 796.66 / 796.66 769.25 / 769.25 100 / 100 Output Total 2100 / 2100 650 / 1350 1200 / 1200 Balance -1303.34 / -1303.34 119.25 / -580.75 -1100 / -1100 Lab / Micro Data 03/27/25 04:29 03/27/25 04:29 Labs: Laboratory Results - last 24 hr 03/27/25 04:29: WBC 10.2, RBC 2.83 L, Hgb 8.2 L, Hct 25.5 L, MCV 90.1, MCH 29.0, MCHC 32.2 D, RDW Std Deviation 51.5 H, RDW Coeff of Martha 15.7 H, Plt Count 297, MPV 10.5, Sodium 145, Potassium 3.3, Chloride 108, Carbon Dioxide 24.3, Anion Gap 13, BUN 62 H, Creatinine 2.01 H, Estim Creat Clear Calc 22.59 L, Est GFR (MDRD) Non-Af 33 L, BUN/Creatinine Ratio 31.0 H, Glucose 161 H, Calcium 10.4 Micro: Microbiology 03/24/25 18:15 Sputum, Expectorated/Coughed Gram Stain - Final 03/24/25 18:15 Sputum, Expectorated/Coughed Respiratory Culture - Final Presumptive C albicans 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 03/25/25 14:40 Nasal Secretion MRSA (PCR) - Final 03/21/25 21:10 Urine, Random Urine Culture - Final Mixed Gram Pos & Gram Neg Org 03/21/25 21:36 Mucosa - Nose SARS-CoV-2, Influenza & RSV (PCR) - Final Physical Exam Const alert, oriented x3, no apparent distress and average body habitus Constitutional Narrative: Elderly male, fatigued and weak appearing but energy level slowly improving, soft voice but speaking in full sentences today sitting back comfortably in bedside chair, in no acute distress. General Appearance: cooperative and comfortable HEENT normocephalic, head/scalp atraumatic, hearing grossly normal bilaterally, nasal mucous membranes and turbinates normal and moist oral mucous membranes Eyes PERRL, EOMs intact bilaterally and conjunctivae normal Neck full ROM Chest inspection of chest normal Resp Resp Narrative: Breathing comfortably on 4 L NC at rest. Diminished breath sounds bilaterally throughout but slowly improving. Cardio no murmurs and peripheral pulses 2+ throughout Cardio Narrative: Tachycardic, regular rhythm. GI normal to inspection, nondistended, normoactive bowel sounds, soft to palpation, non-tender and non-distended Back/Spine normal ROM Extremity normal to inspection, full ROM and no pedal edema Skin no rashes or lesions noted Psych mental status grossly normal Assessment & Plan Assessment/Plan (1) Febrile illness: (2) DLBCL (diffuse large B cell lymphoma): QUALIFIERS: Lymphoma site: multiple regions Qualified Code(s): C 83.38 - Diffuse large B-cell lymphoma, lymph nodes of multiple sites PLAN: Plan Patient is an 79-year-old male who presented to [facility] ED on 03/21/2025 with fevers and fatigue. 1. Acute hypoxic respiratory failure, improving ? [employer] followed. Not on home oxygen. Chest x-ray on admit with no concerning findings. Patient had an aspiration episode on the morning of 03/22 as below and was requiring 6 L nasal cannula on 03/23. Chest x-ray on 03/23 showed new opacification of the right hemithorax with some patchy airspace disease in the left midlung; will suspect this for secondary to aspiration pneumonitis versus pneumonia. Unfortunately respiratory status continued to worsen and patient was requiring Airvo up to 50 L on 03/24. CT chest without contrast obtained and showed extensive bilateral patchy ground glass and airspace opacities along with pleural effusions concerning for pulmonary edema along with pneumonia versus pneumonitis. Patient transferred to the ICU on the afternoon of 03/24. Treated with IV Solu-Medrol 40 mg every 8 hours and IV Lasix 40 mg twice daily and patient with significant improvement in oxygen status on 03/25, down to 8 L high flow at rest. Stable for transfer to PCU on 03/26. Creatinine worsened as below also transitioned to p.o. Lasix 40 mg daily on 03/27. Also de-escalated to p.o. prednisone 40 mg daily on 03/27. Will complete course of IV antibiotics on 03/28 as below. Stable on 4 L nasal cannula at rest on 03/27, continue to wean supplemental oxygen as able. 2. Fever of unknown origin, improved ? Oncology following. Patient with recent diagnosis of diffuse large B-cell lymphoma and completed first round of chemotherapy on 03/10 as below. Developed fever and associated fatigue and decreased p.o. intake on 03/20 and continued into 03/21 so patient came in for further evaluation. Patient with no URI symptoms, no abdominal pain or discomfort, no nausea or vomiting and no dysuria. Chest x-ray unremarkable. UA unremarkable. Blood cultures negative. Per oncology, highest concern is for fever secondary to recent initiation of allopurinol for lymphoma as below. Allopurinol discontinued on 03/22. Continue IV Zosyn and will complete 7-day course of antibiotics total, stop date 03/28. 3. 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 Oncology following as above. Thoracotomy with biopsy done on 02/08 at [facility] and pathology showed DLBCL. PET/CT scan on 03/08 showed extensive tumor involvement with hypermetabolic activity seen at the left pleural, numerous left rib thoracic vertebrae and sternum, bilateral mediastinum left greater than right, left chest wall and right pelvis. Completed first round of R?CHOP on 03/10. Saw oncology in the office on 03/14 and reported fatigue but was still completing his ADLs. Appreciate further oncology recommendations. 4. Dysphagia ? Speech therapy following. Patient with episode of choking on scrambled egg on the morning of 03/22 with aspiration as above. MBSS completed on 03/23; speech therapy noted that patient had very poor pharyngeal clearance on the for swallow of the first trial (thin liquid by teaspoon) with aspiration of pharyngeal residue on the second swallow. For other trials, he had mild to moderate pharyngeal residues noted. Mild retention of cookie and upper/middle esophagus noted, somewhat cleared with liquid wash. With respiratory status improved on 03/25, okay for modified diet as ordered by speech therapy. Continues to tolerate modified diet well and increasing p.o. intake as able. 5. Acute on chronic debility ? PT/OT/case management following. Patient lives at home with and was completing ADLs at home without significant issue until few days prior to this admission. Unfortunately he is now much weaker than his baseline due to medical issues as above and poor p.o. intake. He is slowly improving as above and therapy scores on 03/27 are borderline. It seems that patient would be a good SNF candidate on discharge and patient and are amenable to this; follow-up further with case management on 03/28. 6. Hypercalcemia of malignancy, improved ? Calcium 11.4 on admit, improved to 10.3 on hospital day 2 with significant IV fluid resuscitation. Calcium level remaining stable. 7. Mild elevated creatinine in setting of CKD stage IIIb ? Creatinine 2.07 on admit, baseline appears to be around 1.6. Suspect secondary to mild prerenal injury. Given significant IV fluids on admit as above. Creatinine improved with shelly 1.88 on 03/22. Reinitiated on IV Lasix given concern for pulmonary edema as above. Most recent creatinine 2.01 on 03/27. Will treat with p.o. Lasix 40 mg daily going forward, continue to monitor daily BMP and urine output. 8. Chronic normocytic anemia ? Hemoglobin 8.5 on admit, recent baseline around 8-9. Monitor daily CBC. DVT prophylaxis: Heparin subcu CODE STATUS: Full code, verified Expected disposition: SNF versus home health care, 1 to 2 days Total clinical time spent by myself addressing the patient's medical issues, reviewing all the data, and collaborating with patient's care team: 38 minutes. Charges/Coding Visit Charges Inpatient E&M: 53708 Subs Hosp L2
[2025-03-27] MEDS: Heparin Injection (Vial) 5,000 UNIT/ML VIAL 5000 UNIT SC ×2 (14:41→21:45)
--- NOTE | 2025-03-27 18:55 | PN.CC_ITS ---
Objective Data Objective Data Vital Signs: Vital Signs Last response 3 Temperature 36.6 C 03/27/25 15:22 Temperature Source Temporal 03/27/25 15:22 Pulse Rate 110 H 03/27/25 15:22 Pulse Strength Weak (1+) 03/27/25 10:00 Respiratory Rate 18 03/27/25 15:22 Respiratory Effort Normal, Non-Labored 03/27/25 13:34 Respiratory Depth Normal 03/27/25 13:34 Respiratory Pattern Normal 03/27/25 13:34 Blood Pressure 122/78 H 03/27/25 15:22 Blood Pressure Mean 92 03/27/25 15:22 Blood Pressure Source Monitor 03/27/25 15:22 Blood Pressure Position Semi-Fowlers 03/27/25 15:22 Blood Pressure Location Right Arm 03/27/25 15:22 Pulse Ox 94 03/27/25 15:22 Oxygen Delivery Method Nasal Cannula 03/27/25 15:22 Oxygen Flow Rate (L/min) 2 03/27/25 15:22 Fraction of Inspired Oxygen (FIO2) 50 03/25/25 09:50 I&O: I&O Last 24 Hours 3 03/26/25 03/27/25 03/27/25 23:59 11:59 23:59 Intake Total 369.25 / 769.25 100 / 580 480 / 580 Output Total 300 / 1350 1200 / 1600 400 / 1600 Balance 69.25 / -580.75 -1100 / -1020 80 / -1020 I&O: Total Stay 3 03/21/25 18:58 thru 03/27/25 18:00 Intake Total 8793.41 Output Total 7350 Balance 1443.41 Current Meds Ordered / Administered: Current meds ordered / Administered 3 Generic Name Dose Route Start Last Admin Trade Name Freq PRN Reason Stop Dose Admin Acetaminophen 650 mg 03/22/25 00:54 03/22/25 18:17 Acetaminophen 325 Mg Tablet PO 650 mg Q6H PRN PRN Administration Pain 1-10 Or Fever >100.7 Furosemide 40 mg 03/27/25 10:00 03/27/25 09:47 Furosemide 40 Mg Tablet PO 40 mg DAILY DAISY Administration Protocol Heparin Sodium (Porcine) 5,000 unit 03/27/25 14:00 03/27/25 14:41 Heparin Injection (Vial) 5,000 Unit/Ml Vial SC 5,000 unit Q8 DAISY Administration Sodium Chloride 250 mls @ 15 mls/hr 03/22/25 00:55 03/26/25 19:40 IV 0 mls/hr .[id number] PRN Infusion Saline Flush Sodium Chloride 250 mls @ 15 mls/hr 03/22/25 00:55 IV .[id number] PRN Additional IVPB Infusion Piperacillin Sod/Tazobactam 50 mls @ 12.5 mls/hr 03/25/25 08:00 03/27/25 14:41 Sod 3.375 gm/ Sodium Chloride IV 03/28/25 23:59 12.5 mls/hr Q8 DAISY Administration Nutritional Formula (Lactose Free) 120 ml 03/25/25 10:00 03/27/25 17:01 Ensure Plus High Protein 120 Ml Liquid PO Not Given 4X/DAY DAISY Ondansetron HCl 8 mg 03/22/25 01:06 Ondansetron 8 Mg Tablet PO Q12H PRN PRN nausea and vomiting Prednisone 40 mg 03/27/25 08:00 03/27/25 09:47 Prednisone 20 Mg Tablet PO 40 mg BREAKFAST DAISY Administration Senna 1 tablet 03/22/25 01:06 Senna Tablet PO DAILY PRN PRN constipation Sodium Chloride 10 - 40 ml 03/22/25 00:55 03/26/25 21:33 0.9% Saline Lock 10 Ml Syringe IV 10 ml UD PRN Administration SALINE FLUSH Lab / Micro Data 03/27/25 04:29 03/27/25 04:29 Labs: Laboratory Results - last 24 hr 03/27/25 04:29: WBC 10.2, RBC 2.83 L, Hgb 8.2 L, Hct 25.5 L, MCV 90.1, MCH 29.0, MCHC 32.2 D, RDW Std Deviation 51.5 H, RDW Coeff of Martha 15.7 H, Plt Count 297, MPV 10.5, Sodium 145, Potassium 3.3, Chloride 108, Carbon Dioxide 24.3, Anion Gap 13, BUN 62 H, Creatinine 2.01 H, Estim Creat Clear Calc 22.59 L, Est GFR (MDRD) Non-Af 33 L, BUN/Creatinine Ratio 31.0 H, Glucose 161 H, Calcium 10.4 Micro: Microbiology 03/24/25 18:15 Sputum, Expectorated/Coughed Gram Stain - Final 03/24/25 18:15 Sputum, Expectorated/Coughed Respiratory Culture - Final 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 Assessment and Plan . Assessment and plan: Chart and data reviewed O2 requirement down to 2 LPM Renal function stable I/O remains (-) Would continue as is for now
[2025-03-28 03:35] VITALS: BP 139/81; PULSE 109; RESP 18; TEMP 36.9; O2SAT 94
[2025-03-28] MEDS: Piperacil/Tazobactam 3.375 GM in 0.9% Normal Saline (50mL MB+) 50 ML IV (05:41)
[2025-03-28] MEDS: Heparin Injection (Vial) 5,000 UNIT/ML VIAL 5000 UNIT SC ×3 (05:41→21:26)
[2025-03-28 05:44] LABS: Anion Gap 14 (5-15); BUN 67 mg/dL (4-19); BUN/Creat Ratio 31.6 RATIO (10-20); Calcium,Total 11.0 mg/dL (7.6-11.0); Carbon Dioxide 24.7 mmol/L (21.0-32.0); Chloride 113 mmol/L (98-108); Estimated Creatinine Clearance 21.34 ml/min (50-250); Glucose 132 mg/dL (70-99); Potassium 3.3 mmol/L (3.3-5.1)
[2025-03-28 05:55] VITALS: BMI 19.2
[2025-03-28 06:09] LABS: Hematocrit 28.1 % (40-54); Hemoglobin 8.9 g/dL (13.0-16.5); Mean Corp Hgb Conc 31.7 g/dL (32-36); Mean Corpuscular Volume 93.4 fL (80-94); Mean Platelet Vol. 10.8 fl (6.2-12.0); Platelet Count 318 K/mm3 (150-450); RBC Distribution Width CV 16.2 % (11.6-14.6); RBC Distribution Width SD 55.0 fl (35.1-43.9); Red Blood Count 3.01 M/mm3 (4.6-6.2); White Blood Count 11.3 K/mm3 (4.4-11.0)
[2025-03-28 08:39] VITALS: O2SAT 94
[2025-03-28 08:57] VITALS: BP 129/85; PULSE 117; RESP 18; TEMP 36.6; O2SAT 92
--- NOTE | 2025-03-28 10:55 | PCM.PN.HOSP ---
Reason for Visit Chief Complaint: Febrile illness, fatigue Subjective Subjective Patient is an 79-year-old male with 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 CT of the chest obtained demonstrated extensive bilateral patchy ground glass and airspace opacities along with pleural effusion concerning for pulmonary edema with pneumonia versus pneumonitis. Admitted to monitored bed for subsequent management Objective Data Objective Data Vital Signs: Vital Signs Temp Pulse Resp BP Pulse Ox O2 Del Method O2 Flow Rate 97.9 F 117 H 18 129/85 H 92 Nasal Cannula 2 03/28/25 08:57 03/28/25 08:57 03/28/25 08:57 03/28/25 08:57 03/28/25 08:57 03/28/25 09:05 03/28/25 09:05 FiO2 50 03/25/25 09:50 Oxygen Flow Rate (L/min) 2 Oxygen Delivery Method Nasal Cannula Weight: 54.3 kg Body Mass Index (BMI) 19.2 Intake & Output: Intake and Output for Last 24 Hours 03/26/25 03/27/25 03/28/25 23:59 23:59 23:59 Intake Total 769.25 / 769.25 630 / 630 50 / 50 Output Total 650 / 1350 1600 / 1800 550 / 550 Balance 119.25 / -580.75 -970 / -1170 -500 / -500 Lab / Micro Data 03/28/25 05:45 03/28/25 05:08 Labs: Laboratory Results - last 24 hr 03/28/25 05:08: WBC Cancelled, Corrected WBC Cancelled, RBC Cancelled, Hgb Cancelled, Hct Cancelled, MCV Cancelled, MCH Cancelled, MCHC Cancelled, RDW Std Deviation Cancelled, RDW Coeff of Martha Cancelled, Plt Count Cancelled, MPV Cancelled, Diff Path Review Cancelled, Sodium 152 H, Potassium 3.3, Chloride 113 H, Carbon Dioxide 24.7, Anion Gap 14, BUN 67 H, Creatinine 2.12 H, Estim Creat Clear Calc 21.34 L, Est GFR (MDRD) Non-Af 31 L, BUN/Creatinine Ratio 31.6 H, Glucose 132 H, Calcium 11.0 03/28/25 05:45: WBC 11.3 H, RBC 3.01 L, Hgb 8.9 L, Hct 28.1 L, MCV 93.4, MCH 29.6, MCHC 31.7 L, RDW Std Deviation 55.0 H, RDW Coeff of Martha 16.2 H, Plt Count 318, MPV 10.8 Micro: Microbiology 03/24/25 18:15 Sputum, Expectorated/Coughed Gram Stain - Final 03/24/25 18:15 Sputum, Expectorated/Coughed Respiratory Culture - Final 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 03/25/25 14:40 Nasal Secretion MRSA (PCR) - Final 03/21/25 21:10 Urine, Random Urine Culture - Final Mixed Gram Pos & Gram Neg Org 03/21/25 21:36 Mucosa - Nose SARS-CoV-2, Influenza & RSV (PCR) - Final Physical Exam Narrative GENERAL: Frail looking HEENT: Atraumatic; normocephalic EYES; Anicteric, Normal Conjunctiva NECK; supple, normal thyroid, RESPIRATORY: Diminished to auscultation CARDIOVASCULAR: Regular S1 S2, GI: soft, normoactive bowel sounds, : No Renal angle tenderness; EXTREMITIES: No edema, no clubbing, MUSCULOSKELETAL: no muscle wasting NEURO: Awake; no lateralizing signs. 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 CT of the chest obtained demonstrated extensive bilateral patchy ground glass and airspace opacities along with pleural effusion concerning for pulmonary edema with pneumonia versus pneumonitis. Admitted to monitored bed for subsequent management 1. Acute hypoxic respiratory failure ? Present on admission secondary to combination of pneumonitis as well as pulmonary edema with suspected aspiration pneumonia as well as. Patient was placed on noninvasive ventilation Airvo requiring up to [address] of the chest did show extensive bilateral patchy ground glass and airspace opacities along with pleural effusions concerning for pulmonary edema along with pneumonia versus pneumonitis. 2. Suspected aspiration pneumonia/pneumonitis ?Patient managed with piperacillin/tazobactam in addition to Solu-Medrol 3. Dysphagia ? MBSS completed on 03/23; speech therapy noted that patient had very poor pharyngeal clearance on the for swallow of the first trial (thin liquid by teaspoon) with aspiration of pharyngeal residue on the second swallow. For other trials, he had mild to moderate pharyngeal residues noted. Mild retention of cookie and upper/middle esophagus noted, somewhat cleared with liquid wash. With patient respiratory status improving diet is being advanced as tolerated 4.. 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 Oncology following as above. Thoracotomy with biopsy done on 02/08 at [facility] and pathology showed DLBCL. PET/CT scan on 03/08 showed extensive tumor involvement with hypermetabolic activity seen at the left pleural, numerous left rib thoracic vertebrae and sternum, bilateral mediastinum left greater than right, left chest wall and right pelvis. Completed first round of R?CHOP on 03/10. Saw oncology in the office on 03/14 and reported fatigue but was still completing his ADLs. Consult placed to oncology notes and recommendations reviewed 5. Physical deconditioning ? Requested for PT OT eval and social human services assistants to assist with discharge planning 6. Hypercalcemia of malignancy ? Patient calcium levels improved with rehydration we will continue with monitoring 7. Anemia ? Secondary to chronic disorder monitoring H&H and transfuse if patient becomes symptomatic or hemoglobin falls below 7 8. Hyponatremia ? Patient sodium levels on 1026 was 145 up to 152 this a.m.Patient had been managed with diuretic therapy on account of his fluid overload. With his sodium rising furosemide was held started on D5 half-normal saline with serial Q8 sodium levels ordered. 9. Chronic kidney disease stage IV ? Patient kidney function at baseline 10. DVT prophylaxis ? Subcu heparin Time spent in the patient's overall evaluation,decision-making process, review of diagnostic data, adjustment of management, discussion with other providers, nursing nursing and ancillary staff involved in patient's care documentation, 50Minutes Charges/Coding Visit Charges Inpatient E&M: 79605 Subs Hosp L3
--- NOTE | 2025-03-28 11:35 | CASEMGMT ---
RN CM into pt room, pt awake, resting in bed. Pt in the room. Discussed SNF with pt, chose [facility] and [facility]. If neither of these are able to accept, CHRISTINE RUIZ to follow back up. RN SARA sent referral to TCU. Waiting to hear if they can accept.
--- NOTE | 2025-03-28 11:47 | CASEMGMT ---
CHRISTINE RUIZ spoke with pt and pt about Chemotherapy. They are aware that Pt will not be able to receive chemo while at a SNF to get therapy. Agreeable and wanting placement at this time. Pt and Pt asked questions about palliative and hospice. CHRISTINE RUIZ asked if they wish to have a referral made to learn more about palliative or hospice services at this time, both denied wanting a referral.
--- NOTE | 2025-03-28 12:23 | CASEMGMT ---
TCU able to accept, starting precert. Notified Pt.
[2025-03-28] MEDS: 0.45% Normal Saline 1,000 ML 75 ML IV (13:14)
[2025-03-28 14:04] LABS: Anion Gap 13 (5-15); BUN 64 mg/dL (4-19); BUN/Creat Ratio 31.3 RATIO (10-20); Calcium,Total 11.0 mg/dL (7.6-11.0); Carbon Dioxide 26.6 mmol/L (21.0-32.0); Chloride 110 mmol/L (98-108); Estimated Creatinine Clearance 21.60 ml/min (50-250); Glucose 235 mg/dL (70-99); Potassium 3.5 mmol/L (3.3-5.1)
[2025-03-28] MEDS: metroNIDAZOLE 500 MG/100 ML BAG 100 MG IV ×2 (14:12→21:26)
[2025-03-28 15:05] VITALS: BP 130/74; PULSE 127; RESP 24; TEMP 36.6; O2SAT 90
[2025-03-28] MEDS: levoFLOXacin IV 750 MG/150 ML BAG 100 MG IV (15:24)
--- NOTE | 2025-03-28 16:05 | CHAPLAIN ---
Type of Pastoral Visit ___ Initial Visit _x__ Follow-up Visit ___ On-call Visit ___ General Patient Visit ___ Spiritual Assessment ___ Family Conference ___ Bereavement ___ Rapid Response ___ Code Blue ___ Other (describe below) Pastoral Care Referral From ___ Patient _x__ Family ___ Nurse ___ Physician ___ Final Assembly Worker ___ Horticulture Superintendent ___ Other (describe below) Sacrament/Intervention _x__ Active listening ___ Anointing ___ Episcopalian ___ Bereavement ___ Communion ___ Rosemarie exploration ___ ___ Life review _x__ Prayer ___ Reconciliation ___ Sacrament of Sick _x__ Supportive presence ___ Wedding ___ Other (describe below) Pastoral Comments met spouse of this patient in the hallway; this patient was seen last week but has had changes in his status and will be moved to TCU for therapy and help in gaining strength; spouse invites this local superintendent into room and patient becomes awake; pt is weak and mostly gives one word answers and hand signals to respond to questions; pt welcomes support through prayer; spouse indicates future visits would be welcomed
[2025-03-28 19:00] VITALS: PULSE 122
[2025-03-28 20:00] VITALS: BP 119/88; PULSE 121; RESP 18; TEMP 36.6; O2SAT 97
[2025-03-28 21:29] LABS: Anion Gap 13 (5-15); BUN 66 mg/dL (4-19); BUN/Creat Ratio 33.0 RATIO (10-20); Calcium,Total 10.9 mg/dL (7.6-11.0); Carbon Dioxide 27.1 mmol/L (21.0-32.0); Chloride 110 mmol/L (98-108); Estimated Creatinine Clearance 22.36 ml/min (50-250); Glucose 160 mg/dL (70-99); Potassium 3.4 mmol/L (3.3-5.1)
[2025-03-29 02:00] VITALS: BP 128/71; PULSE 111; RESP 16; TEMP 36.8; O2SAT 95
[2025-03-29] MEDS: 0.45% Normal Saline 1,000 ML 75 ML IV (02:38)
[2025-03-29 04:04] VITALS: BMI 19.6
[2025-03-29 05:50] LABS: Hematocrit 25.0 % (40-54); Hemoglobin 8.0 g/dL (13.0-16.5); Mean Corp Hgb Conc 32.0 g/dL (32-36); Mean Corpuscular Volume 92.6 fL (80-94); Mean Platelet Vol. 10.3 fl (6.2-12.0); POSITIVE COUNT YES; POSITIVE DIFFERENTIAL YES; POSITIVE MORPHOLOGY YES; Platelet Count 292 K/mm3 (150-450); RBC Distribution Width CV 16.0 % (11.6-14.6); RBC Distribution Width SD 54.1 fl (35.1-43.9); Red Blood Count 2.70 M/mm3 (4.6-6.2); White Blood Count 12.7 K/mm3 (4.4-11.0)
[2025-03-29] MEDS: metroNIDAZOLE 500 MG/100 ML BAG 100 MG IV ×3 (06:09→21:25)
[2025-03-29] MEDS: Heparin Injection (Vial) 5,000 UNIT/ML VIAL 5000 UNIT SC ×2 (06:10→21:25)
[2025-03-29 06:22] LABS: Anion Gap 11 (5-15); BUN 58 mg/dL (4-19); BUN/Creat Ratio 33.2 RATIO (10-20); Calcium,Total 10.0 mg/dL (7.6-11.0); Carbon Dioxide 26.5 mmol/L (21.0-32.0); Chloride 112 mmol/L (98-108); Estimated Creatinine Clearance 26.15 ml/min (50-250); Glucose 116 mg/dL (70-99); Magnesium 2.3 mg/dL (1.5-2.2); Potassium 3.3 mmol/L (3.3-5.1)
[2025-03-29 06:46] LABS: Neutrophil-Band 2 % (0-5); Neutrophil-Segmented 91 % (47-70); Nucleated Red Bld Cells,Manual 1 % (0-5); Total Cells Counted 100 (MANUAL DIFF)
[2025-03-29 06:51] LABS: Polychromasia RARE; Toxic Granulation 1+
[2025-03-29 06:54] LABS: Anisocytosis RARE; Schistocytes RARE
[2025-03-29 06:58] VITALS: O2SAT 93
[2025-03-29 06:59] LABS: Differential Comment SCANNED; Differential Indicated MANUAL DIFF
[2025-03-29 09:05] VITALS: BP 109/73; PULSE 119; RESP 18; TEMP 36.5; O2SAT 94
[2025-03-29] MEDS: 0.9% Saline Lock 10 ML Syringe IV (09:12)
--- NOTE | 2025-03-29 10:34 | PCM.PN.HOSP ---
Reason for Visit Chief Complaint: Febrile illness, fatigue Subjective Subjective Patient seen, remains on supplemental oxygen. Diagnostic data reviewed significant for hypernatremia. Patient had been started on 0.45 saline the day prior sodium level did not really improve subsequently started patient on D5W with serial monitoring of sodium levels ordered Objective Data Objective Data Vital Signs: Vital Signs Temp Pulse Resp BP Pulse Ox O2 Del Method O2 Flow Rate 97.7 F L 119 H 18 109/73 94 Nasal Cannula 3 03/29/25 09:05 03/29/25 09:05 03/29/25 09:05 03/29/25 09:05 03/29/25 09:05 03/29/25 09:17 03/29/25 09:17 FiO2 50 03/25/25 09:50 Oxygen Flow Rate (L/min) 3 Oxygen Delivery Method Nasal Cannula Weight: 55.2 kg Body Mass Index (BMI) 19.6 Intake & Output: Intake and Output for Last 24 Hours 03/27/25 03/28/25 03/29/25 23:59 23:59 23:59 Intake Total 630 / 630 450 / 450 1597.5 / 1597.5 Output Total 1600 / 1800 550 / 550 Balance -970 / -1170 -100 / -100 1597.5 / 1597.5 Lab / Micro Data 03/29/25 05:25 03/29/25 05:25 Labs: Laboratory Results - last 24 hr 03/28/25 08:53: Sodium 150 H, Potassium 3.4, Chloride 110 H, Carbon Dioxide 27.1, Anion Gap 13, BUN 66 H, Creatinine 1.99 H, Estim Creat Clear Calc 22.36 L, Est GFR (MDRD) Non-Af 33 L, BUN/Creatinine Ratio 33.0 H, Glucose 160 H, Calcium 10.9 03/28/25 13:09: Sodium 150 H, Potassium 3.5, Chloride 110 H, Carbon Dioxide 26.6, Anion Gap 13, BUN 64 H, Creatinine 2.06 H, Estim Creat Clear Calc 21.60 L, Est GFR (MDRD) Non-Af 32 L, BUN/Creatinine Ratio 31.3 H, Glucose 235 H, Calcium 11.0 03/29/25 05:25: WBC 12.7 H, RBC 2.70 L, Hgb 8.0 L, Hct 25.0 L, MCV 92.6, MCH 29.6, MCHC 32.0, RDW Std Deviation 54.1 H, RDW Coeff of Martha 16.0 H, Plt Count 292, MPV 10.3, Neut % (Auto) Not Reportable, Absolute Neuts (auto) 11.8 H, Absolute Lymphs (auto) 0.00 L, Total Counted 100, Neutrophils % (Manual) 91 H, Band Neutrophils % 2, Monocytes % (Manual) 4, Eosinophils % (Manual) 1, Basophils % (Manual) 1, Myelocytes % 1 H, Nucleated RBCs/100 WBC 1, Differential Comment SCANNED, Toxic Granulation 1+, Platelet Estimate ADEQUATE, Plt Morphology Comment LARGE, Polychromasia RARE, Anisocytosis RARE, Schistocytes RARE, Sodium 149 H, Potassium 3.3, Chloride 112 H, Carbon Dioxide 26.5, Anion Gap 11, BUN 58 H, Creatinine 1.73 H, Estim Creat Clear Calc 26.15 L, Est GFR (MDRD) Non-Af 39 L, BUN/Creatinine Ratio 33.2 H, Glucose 116 H, Calcium 10.0, Phosphorus 2.3 L, Magnesium 2.3 H Micro: Microbiology 03/24/25 18:15 Sputum, Expectorated/Coughed Gram Stain - Final 03/24/25 18:15 Sputum, Expectorated/Coughed Respiratory Culture - Final Presumptive C albicans GNR lactose senior health consultant 03/21/25 19:50 Blood Culture (Wb) - Anticubital Right Blood Culture - Final No growth in 5 days. 03/25/25 14:40 Nasal Secretion MRSA (PCR) - Final 03/21/25 21:10 Urine, Random Urine Culture - Final Mixed Gram Pos & Gram Neg Org 03/21/25 21:36 Mucosa - Nose SARS-CoV-2, Influenza & RSV (PCR) - Final Physical Exam Narrative GENERAL: Frail looking HEENT: Atraumatic; normocephalic EYES; Anicteric, Normal Conjunctiva NECK; supple, normal thyroid, RESPIRATORY: Diminished to auscultation CARDIOVASCULAR: Regular S1 S2, GI: soft, normoactive bowel sounds, : No Renal angle tenderness; EXTREMITIES: No edema, no clubbing, MUSCULOSKELETAL: no muscle wasting NEURO: Awake; no lateralizing signs. 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 CT of the chest obtained demonstrated extensive bilateral patchy ground glass and airspace opacities along with pleural effusion concerning for pulmonary edema with pneumonia versus pneumonitis. Admitted to monitored bed for subsequent management 1. Acute hypoxic respiratory failure ? Present on admission secondary to combination of pneumonitis as well as pulmonary edema with suspected aspiration pneumonia as well as. Patient was placed on noninvasive ventilation Airvo requiring up to [address] of the chest did show extensive bilateral patchy ground glass and airspace opacities along with pleural effusions concerning for pulmonary edema along with pneumonia versus pneumonitis. 2. Suspected aspiration pneumonia/pneumonitis ?Patient managed with piperacillin/tazobactam in addition to Solu-Medrol 3. Dysphagia ? MBSS completed on 03/23; speech therapy noted that patient had very poor pharyngeal clearance on the for swallow of the first trial (thin liquid by teaspoon) with aspiration of pharyngeal residue on the second swallow. For other trials, he had mild to moderate pharyngeal residues noted. Mild retention of cookie and upper/middle esophagus noted, somewhat cleared with liquid wash. With patient respiratory status improving diet is being advanced as tolerated 4.. 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 Oncology following as above. Thoracotomy with biopsy done on 02/08 at [facility] and pathology showed DLBCL. PET/CT scan on 03/08 showed extensive tumor involvement with hypermetabolic activity seen at the left pleural, numerous left rib thoracic vertebrae and sternum, bilateral mediastinum left greater than right, left chest wall and right pelvis. Completed first round of R?CHOP on 03/10. Saw oncology in the office on 03/14 and reported fatigue but was still completing his ADLs. Consult placed to oncology notes and recommendations reviewed 5. Physical deconditioning ? Requested for PT OT eval and social media campaign manager to assist with discharge planning 6. Hypercalcemia of malignancy ? Patient calcium levels improved with rehydration we will continue with monitoring 7. Anemia ? Secondary to chronic disorder monitoring H&H and transfuse if patient becomes symptomatic or hemoglobin falls below 7 8. Hypernatremia ? Patient sodium levels on 102 was 145 up to 152 this a.m.Patient had been managed with diuretic therapy on account of his fluid overload. With his sodium rising furosemide was held started on D5 half-normal saline with serial Q8 sodium levels ordered. ? 03/29/2025; no significant improvement in patient's sodium levels. Adjusted IV fluid with initiation of D5W and discontinuation of 0.45 saline 9. Chronic kidney disease stage IV ? Patient kidney function at baseline 10. DVT prophylaxis ? Subcu heparin Time spent in the patient's overall evaluation,decision-making process, review of diagnostic data, adjustment of management, discussion with other providers, nursing nursing and ancillary staff involved in patient's care documentation, 40 Minutes Charges/Coding Visit Charges Inpatient E&M: 13744 Subs Hosp L2
[2025-03-29] MEDS: Dextrose 5%-Water (1000mL Bag) 1,000 ML 60 ML IV (12:20)
[2025-03-29 15:00] VITALS: BP 125/77; PULSE 115; RESP 17; TEMP 36.8; O2SAT 96
[2025-03-29 19:00] VITALS: PULSE 115
[2025-03-29 21:00] VITALS: BP 130/82; PULSE 114; RESP 16; TEMP 36.8; O2SAT 98
[2025-03-30 03:00] VITALS: BP 137/81; PULSE 100; RESP 15; TEMP 36.5; O2SAT 96
[2025-03-30] MEDS: Dextrose 5%-Water (1000mL Bag) 1,000 ML 60 ML IV (04:59)
[2025-03-30 05:53] LABS: Hematocrit 25.9 % (40-54); Hemoglobin 8.3 g/dL (13.0-16.5); Mean Corp Hgb Conc 32.0 g/dL (32-36); Mean Corpuscular Volume 93.2 fL (80-94); Mean Platelet Vol. 11.2 fl (6.2-12.0); POSITIVE COUNT YES; POSITIVE DIFFERENTIAL YES; POSITIVE MORPHOLOGY YES; Platelet Count 316 K/mm3 (150-450); RBC Distribution Width CV 15.9 % (11.6-14.6); RBC Distribution Width SD 54.5 fl (35.1-43.9); Red Blood Count 2.78 M/mm3 (4.6-6.2); White Blood Count 13.5 K/mm3 (4.4-11.0)
[2025-03-30 06:02] LABS: Differential Indicated MANUAL DIFF
[2025-03-30 06:17] LABS: Anion Gap 10 (5-15); BUN 52 mg/dL (4-19); BUN/Creat Ratio 32.5 RATIO (10-20); Calcium,Total 9.8 mg/dL (7.6-11.0); Carbon Dioxide 28.5 mmol/L (21.0-32.0); Chloride 106 mmol/L (98-108); Estimated Creatinine Clearance 28.60 ml/min (50-250); Glucose 137 mg/dL (70-99); Potassium 3.1 mmol/L (3.3-5.1)
[2025-03-30] MEDS: Heparin Injection (Vial) 5,000 UNIT/ML VIAL 5000 UNIT SC (06:28)
[2025-03-30] MEDS: metroNIDAZOLE 500 MG/100 ML BAG 100 MG IV (06:28)
[2025-03-30 06:40] LABS: Differential Comment SCANNED; Red Cell Morphology NORM C+C NORMAL (NORM C&C); Total Cells Counted 100 (MANUAL DIFF)
[2025-03-30 06:41] LABS: Neutrophil-Segmented 89 % (47-70)
--- NOTE | 2025-03-30 07:46 | PCM.PN.HOSP ---
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 Sodium level down to 145. Patient did develop diarrhea the day prior stool studies so far negative to date Objective Data Objective Data Vital Signs: Vital Signs Temp Pulse Resp BP Pulse Ox O2 Del Method O2 Flow Rate 97.7 F L 100 15 137/81 H 96 Nasal Cannula 3 03/30/25 03:00 03/30/25 03:00 03/30/25 03:00 03/30/25 03:00 03/30/25 03:00 03/30/25 04:00 03/30/25 04:00 FiO2 50 03/25/25 09:50 Oxygen Flow Rate (L/min) 3 Oxygen Delivery Method Nasal Cannula Weight: 56.2 kg Body Mass Index (BMI) 20.0 Intake & Output: Intake and Output for Last 24 Hours 03/28/25 03/29/25 03/30/25 23:59 23:59 23:59 Intake Total 450 / 450 1797.5 / 1797.5 999 / 999 Output Total 550 / 550 Balance -100 / -100 1797.5 / 1797.5 999 / 999 Lab / Micro Data 03/30/25 04:59 03/30/25 04:59 Labs: Laboratory Results - last 24 hr 03/30/25 04:59: WBC 13.5 H, RBC 2.78 L, Hgb 8.3 L, Hct 25.9 L, MCV 93.2, MCH 29.9, MCHC 32.0, RDW Std Deviation 54.5 H, RDW Coeff of Martha 15.9 H, Plt Count 316, MPV 11.2, Neut % (Auto) Not Reportable, Absolute Neuts (auto) 12.0 H, Absolute Lymphs (auto) 0.40 L, Total Counted 100, Neutrophils % (Manual) 89 H, Lymphocytes % (Manual) 3 L, Monocytes % (Manual) 4, Metamyelocytes % 1, Myelocytes % 3 H, Differential Comment SCANNED, Platelet Estimate ADEQUATE, RBC Morphology NORM C+C, Sodium 145, Potassium 3.1 L, Chloride 106, Carbon Dioxide 28.5, Anion Gap 10, BUN 52 H, Creatinine 1.61 H, Estim Creat Clear Calc 28.60 L, Est GFR (MDRD) Non-Af 43 L, BUN/Creatinine Ratio 32.5 H, Glucose 137 H, Calcium 9.8 Micro: Microbiology 03/29/25 23:29 Stool Clostridioides difficile (PCR) - Final 03/24/25 18:15 Sputum, Expectorated/Coughed Gram Stain - Final 03/24/25 18:15 Sputum, Expectorated/Coughed Respiratory Culture - Final Presumptive C albicans 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 03/25/25 14:40 Nasal Secretion MRSA (PCR) - Final 03/21/25 21:10 Urine, Random Urine Culture - Final Mixed Gram Pos & Gram Neg Org 03/21/25 21:36 Mucosa - Nose SARS-CoV-2, Influenza & RSV (PCR) - Final Physical Exam Narrative GENERAL: Frail looking HEENT: Atraumatic; normocephalic EYES; Anicteric, Normal Conjunctiva NECK; supple, normal thyroid, RESPIRATORY: Diminished to auscultation CARDIOVASCULAR: Regular S1 S2, GI: soft, normoactive bowel sounds, : No Renal angle tenderness; EXTREMITIES: No edema, no clubbing, MUSCULOSKELETAL: no muscle wasting NEURO: Awake; no lateralizing signs. 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 CT of the chest obtained demonstrated extensive bilateral patchy ground glass and airspace opacities along with pleural effusion concerning for pulmonary edema with pneumonia versus pneumonitis. Admitted to monitored bed for subsequent management 1. Acute hypoxic respiratory failure ? Present on admission secondary to combination of pneumonitis as well as pulmonary edema with suspected aspiration pneumonia as well as. Patient was placed on noninvasive ventilation Airvo requiring up to [address] of the chest did show extensive bilateral patchy ground glass and airspace opacities along with pleural effusions concerning for pulmonary edema along with pneumonia versus pneumonitis. 2. Suspected aspiration pneumonia/pneumonitis ?Patient managed with piperacillin/tazobactam in addition to Solu-Medrol ? 03/30/2025. Patient Zosyn was discontinued given his high sodium levels. 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 3. Dysphagia ? MBSS completed on 03/23; speech therapy noted that patient had very poor pharyngeal clearance on the for swallow of the first trial (thin liquid by teaspoon) with aspiration of pharyngeal residue on the second swallow. For other trials, he had mild to moderate pharyngeal residues noted. Mild retention of cookie and upper/middle esophagus noted, somewhat cleared with liquid wash. With patient respiratory status improving diet is being advanced as tolerated 4.. 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 Oncology following as above. Thoracotomy with biopsy done on 02/08 at [facility] and pathology showed DLBCL. PET/CT scan on 03/08 showed extensive tumor involvement with hypermetabolic activity seen at the left pleural, numerous left rib thoracic vertebrae and sternum, bilateral mediastinum left greater than right, left chest wall and right pelvis. Completed first round of R?CHOP on 03/10. Saw oncology in the office on 03/14 and reported fatigue but was still completing his ADLs. Consult placed to oncology notes and recommendations reviewed 5. Physical deconditioning ? Requested for PT OT eval and social welfare clerk to assist with discharge planning 6. Hypercalcemia of malignancy ? Patient calcium levels improved with rehydration we will continue with monitoring 7. Anemia ? Secondary to chronic disorder monitoring H&H and transfuse if patient becomes symptomatic or hemoglobin falls below 7 8. Hypernatremia ? Patient sodium levels on 1025 was 145 up to 152 this a.m.Patient had been managed with diuretic therapy on account of his fluid overload. With his sodium rising furosemide was held started on D5 half-normal saline with serial Q8 sodium levels ordered. ? 03/29/2025; no significant improvement in patient's sodium levels. Adjusted IV fluid with initiation of D5W and discontinuation of 0.45 saline ? 03/30/2025; patient sodium levels down to 145 9. Chronic kidney disease stage IV ? Patient kidney function at baseline 10. DVT prophylaxis ? Subcu heparin Time spent in the patient's overall evaluation,decision-making process, review of diagnostic data, adjustment of management, discussion with other providers, nursing nursing and ancillary staff involved in patient's care documentation, 36 Minutes Charges/Coding Visit Charges Inpatient E&M: 25800 Subs Hosp L2
[2025-03-30 08:08] VITALS: BP 112/69; PULSE 99; RESP 18; TEMP 36.3; O2SAT 96
[2025-03-30] MEDS: Potassium Chloride 10mEq/100mL 10 MEQ/100 ML IV.SOLN. 100 MEQ IV BOLUS ×4 (08:11→12:05)
--- NOTE | 2025-03-30 09:45 | PCM.DC.SUM ---
Providers Date of Admission: 03/21/25 Date of Discharge: 03/30/25 Primary Care Physician: Dr. Sacha Hernandez, DO Consultations 03/22/25 00:54 Consult: Oncology/Hematology Routine Consulting Provider: [facility] ([facility]) Reason for Consult: b cell lymphoma with fever EMERGENT Consult: Yes MD Notified: Yes Date Notified: 03/21/25 Time Notified: 23:39 Method of Notification: ED Physician Initiated 03/24/25 14:35 Consult: Data Collection Specialist / Pulmonary Medicine Routine Consulting Provider: Intensivists/Pulmonary Med Reason for Consult: acute hypoxic resp failure EMERGENT Consult: No MD Notified: Yes Date Notified: 03/24/25 Time Notified: 14:35 Method of Notification: Text Reason For Visit: FEBRILE ILLNESS, B-CELL LYMPHOMA Diagnosis Discharge Diagnosis (1) Febrile illness: Status: Acute Code(s): R50.9 - Fever, unspecified (2) 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 Code(s): C83.30 - Diffuse large B-cell lymphoma, unspecified site Qualifiers: Lymphoma site: multiple regions Qualified Code(s): C83.38 - Diffuse large B-cell lymphoma, lymph nodes of multiple sites Plan Patient is an 79-year-old male with 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 CT of the chest obtained demonstrated extensive bilateral patchy ground glass and airspace opacities along with pleural effusion concerning for pulmonary edema with pneumonia versus pneumonitis. Admitted to monitored bed for subsequent management 1. Acute hypoxic respiratory failure ? Present on admission secondary to combination of pneumonitis as well as pulmonary edema with suspected aspiration pneumonia as well as. Patient was placed on noninvasive ventilation Airvo requiring up to [address] of the chest did show extensive bilateral patchy ground glass and airspace opacities along with pleural effusions concerning for pulmonary edema along with pneumonia versus pneumonitis. 2. Suspected aspiration pneumonia/pneumonitis ?Patient managed with piperacillin/tazobactam in addition to Solu-Medrol ? 03/30/2025. Patient Zosyn was discontinued given his high sodium levels. 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 3. Dysphagia ? MBSS completed on 10/22; speech therapy noted that patient had very poor pharyngeal clearance on the for swallow of the first trial (thin liquid by teaspoon) with aspiration of pharyngeal residue on the second swallow. For other trials, he had mild to moderate pharyngeal residues noted. Mild retention of cookie and upper/middle esophagus noted, somewhat cleared with liquid wash. With patient respiratory status improving diet is being advanced as tolerated 4.. 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 Oncology following as above. Thoracotomy with biopsy done on 02/08 at [facility] and pathology showed DLBCL. PET/CT scan on 03/08 showed extensive tumor involvement with hypermetabolic activity seen at the left pleural, numerous left rib thoracic vertebrae and sternum, bilateral mediastinum left greater than right, left chest wall and right pelvis. Completed first round of R?CHOP on 03/10. Saw oncology in the office on 03/14 and reported fatigue but was still completing his ADLs. Consult placed to oncology notes and recommendations reviewed 5. Physical deconditioning ? Requested for PT OT eval and vp digital marketing social media and crm to assist with discharge planning 6. Hypercalcemia of malignancy ? Patient calcium levels improved with rehydration we will continue with monitoring 7. Anemia ? Secondary to chronic disorder monitoring H&H and transfuse if patient becomes symptomatic or hemoglobin falls below 7 8. Hypernatremia ? Patient sodium levels on 1026 was 145 up to 152 this a.m.Patient had been managed with diuretic therapy on account of his fluid overload. With his sodium rising furosemide was held started on D5 half-normal saline with serial Q8 sodium levels ordered. ? 03/29/2025; no significant improvement in patient's sodium levels. Adjusted IV fluid with initiation of D5W and discontinuation of 0.45 saline ? 03/30/2025; patient sodium levels down to 145 9. Chronic kidney disease stage IV ? Patient kidney function at baseline 10. DVT prophylaxis ? Subcu heparin Time spent in the patient's overall evaluation,decision-making process, review of diagnostic data, adjustment of management, discussion with other providers, nursing nursing and ancillary staff involved in patient's care documentation, 36 Minutes Medications at Discharge Home Medications sennosides 8.6 mg capsule (senna) 8.6 mg PO DAILY PRN constipation 5 days #5 caps 02/14/25 allopurinol 300 mg tablet 300 mg PO QDAY #30 tabs 03/02/25 ondansetron 8 mg disintegrating tablet 8 mg PO Q12H PRN nausea and vomiting #30 tabs 03/10/25 acetaminophen 325 mg tablet 650 mg (2 x 325 mg) PO Q6H PRN PRN Pain 1-10 Or Fever >100.7 #0 tabs 03/30/25 furosemide 40 mg tablet 40 mg PO DAILY #0 tabs 03/30/25 levofloxacin 750 mg tablet 750 mg PO Q48 #3 tabs 03/30/25 metronidazole 500 mg tablet 500 mg PO TID #15 tabs 03/30/25 potassium chloride 20 mEq tablet,extended release(part/cryst) 20 meq PO BID #30 tabs 03/30/25 prednisone 20 mg tablet 40 mg (2 x 20 mg) PO BREAKFAST #10 tabs 03/30/25 Physical Exam Narrative GENERAL: Frail looking HEENT: Atraumatic; normocephalic EYES; Anicteric, Normal Conjunctiva NECK; supple, normal thyroid, RESPIRATORY: Diminished to auscultation CARDIOVASCULAR: Regular S1 S2, GI: soft, normoactive bowel sounds, : No Renal angle tenderness; EXTREMITIES: No edema, no clubbing, MUSCULOSKELETAL: no muscle wasting NEURO: Awake; no lateralizing signs. SKIN: No Rash PSYCH; Flat affect Weight / BMI Weight Weight: 56.2 kg Body Mass Index (BMI) 20.0 ABG / Lab / Microbiology Data 03/30/25 04:59 03/30/25 04:59 Laboratory: Laboratory Results - last 24 hr 03/30/25 04:59: WBC 13.5 H, RBC 2.78 L, Hgb 8.3 L, Hct 25.9 L, MCV 93.2, MCH 29.9, MCHC 32.0, RDW Std Deviation 54.5 H, RDW Coeff of Martha 15.9 H, Plt Count 316, MPV 11.2, Neut % (Auto) Not Reportable, Absolute Neuts (auto) 12.0 H, Absolute Lymphs (auto) 0.40 L, Total Counted 100, Neutrophils % (Manual) 89 H, Lymphocytes % (Manual) 3 L, Monocytes % (Manual) 4, Metamyelocytes % 1, Myelocytes % 3 H, Differential Comment SCANNED, Platelet Estimate ADEQUATE, RBC Morphology NORM C+C, Sodium 145, Potassium 3.1 L, Chloride 106, Carbon Dioxide 28.5, Anion Gap 10, BUN 52 H, Creatinine 1.61 H, Estim Creat Clear Calc 28.60 L, Est GFR (MDRD) Non-Af 43 L, BUN/Creatinine Ratio 32.5 H, Glucose 137 H, Calcium 9.8 Microbiology: Microbiology 03/29/25 23:29 Stool Enteric Bacteriology - Final 03/29/25 23:29 Stool Clostridioides difficile (PCR) - Final 03/24/25 18:15 Sputum, Expectorated/Coughed Gram Stain - Final 03/24/25 18:15 Sputum, Expectorated/Coughed Respiratory Culture - Final Presumptive C albicans 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 03/25/25 14:40 Nasal Secretion MRSA (PCR) - Final 03/21/25 21:10 Urine, Random Urine Culture - Final Mixed Gram Pos & Gram Neg Org 03/21/25 21:36 Mucosa - Nose SARS-CoV-2, Influenza & RSV (PCR) - Final D/C Instructions DC O2, CPAP, BIPAP Needs Home O2 Discharge instructions: Yes Type of respiratory needs?: Oxygen Oxygen frequency: Continuous Continuous oxygen liters per minute: 3 DC home with Oxygen: Yes Home O2 MD Review: I have reviewed the oxygen testing, and the patient qualifies for home oxygen equipment and portability. The patient is mobile in the home and the community. Meaningful Use Info Meaningful Use Meaningful Use Diagnoses (Choose all that apply): None applicable Discharge Plan Admission Admit Date/Time: 03/21/25 23:37 Attending Provider: Rodney Syed Primary Care Provider: Sacha Hernandez Consulting Providers: Korey Aly; Jun Samuel; Emeka Rudd; Horacio Butler; Jason Wen; Rodney Moss; Dea Corona; Jay Hammer; Fransisco Alegria; Nickolas Baum; Sarah Braxton; Zane Felipe; Percy Meeks; Joi Antonio; Tobin Lanier; Eddie Ray; Kelvin Cox; Deepti Bentley; Christiana Lainez; Soy Crum; Pina Sunshine; Trevon Duque; Sacha Guillen; Linda Cunningham; Claudette Barfield; Donn Rodriguez; Rosy Robison; Linda Barragan; Jesus Mendoza; Obi Coker; Ephraim Wisdom; Nafisa Vasques; Yury,Donato; Nathan Light; Isauro Hinson; Dwight Pena; Marilyn Bhatt; Clarisa Godoy; Peter Davis; Merry,Bryant; Edmund Denson; Radha Thurman; Alberto Wood; Rodney Wilkes; Parrish Miranda; Abdirahman Cordova; Naresh Ennis; Felipe Musa; Israel Cain; Frank Harmon; Thom Green; Ondina Youngblood INFORMATION SERVICES MANAGER; Payam Garcia Discharge Orders/Prescriptions Prescriptions: New furosemide 40 mg Tablet 40 mg PO DAILY Qty: 0 0RF acetaminophen 325 mg Tablet 650 mg PO Q6H PRN PRN (Reason: Pain 1-10 Or Fever >100.7) Qty: 0 0RF prednisone 20 mg Tablet 40 mg PO BREAKFAST Qty: 10 0RF levofloxacin 750 mg Tablet 750 mg PO Q48 Qty: 3 0RF metronidazole 500 mg tablet 500 mg PO TID Qty: 15 0RF potassium chloride 20 mEq tablet,ER particles/crystals 20 meq PO BID Qty: 30 0RF Continued allopurinol 300 mg tablet 300 mg PO QDAY Qty: 30 0RF ondansetron 8 mg tablet,disintegrating 8 mg PO Q12H PRN (Reason: nausea and vomiting) Qty: 30 0RF senna 8.6 mg capsule 8.6 mg PO DAILY PRN (Reason: constipation) 5 Days Qty: 5 0RF Referrals / Follow Up: Sacha Hernandez DO [Primary Care Provider, Family Practice] - Within 2 Weeks Disposition Disposition (needs filled in before D/C Order can be placed): Group Home Facility Charges/Coding Visit Charges Inpatient E&M: 49856 Disch Hosp >30min
--- NOTE | 2025-03-30 09:51 | PCM.TXEXTCAR ---
Diet Diet Order/Speech Therapy: INPATIENT Hospital Diet / Speech Therapy Order(s) 03/25/25 09:57 Diet: Regular - General Food consistency:: Pureed Liquid Consistency:: [place]/Mildly Thick Dietary Modifications:: Fortified Foods Type of Dietary Supplement:: Ensure Plus High Protein Diet Comments: 240mL vanilla EPHP with meals - consistentcy per LIFE SKILLS INSTRUCTOR recommendations Speech Therapy Comments: Distant sup at meals, assist feeding as needed if fatigued Routine Orders/Code Status Code Status: Full Code DC O2, CPAP, BIPAP needs Home O2 Discharge instructions: Yes Type of respiratory needs?: Oxygen Oxygen frequency: Continuous Continuous oxygen liters per minute: 3 Wound(s) Left flank: Wound Type: Surgical Incision Therapies Physical Therapy: Eval and Treat Occupational Therapy: Eval and Treat Speech Therapy: Eval and Treat Problem/Diagnosis (1) Febrile illness: Status: Acute Code(s): R50.9 - Fever, unspecified (2) 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 Code(s): C83.30 - Diffuse large B-cell lymphoma, unspecified site Comment: DLBCL in mediastinum, L pleural space, R pelvic node-stage IV L pleural effusion, localized bone infiltration. EF 65%. HIV negative. S/P R-Mini CHOP on 03/10/2025. Comes for follow up. No evidence of TLS. 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 CT of the chest obtained demonstrated extensive bilateral patchy ground glass and airspace opacities along with pleural effusion concerning for pulmonary edema with pneumonia versus pneumonitis. Admitted to monitored bed for subsequent management 1. Acute hypoxic respiratory failure ? Present on admission secondary to combination of pneumonitis as well as pulmonary edema with suspected aspiration pneumonia as well as. Patient was placed on noninvasive ventilation Airvo requiring up to [address] of the chest did show extensive bilateral patchy ground glass and airspace opacities along with pleural effusions concerning for pulmonary edema along with pneumonia versus pneumonitis. 2. Suspected aspiration pneumonia/pneumonitis ?Patient managed with piperacillin/tazobactam in addition to Solu-Medrol ? 03/30/2025. Patient Zosyn was discontinued given his high sodium levels. Currently remains onMetronidazole and levofloxacin.Patient sputum cultures so far positive for presumptive C albicans as well as gram-negative lactose rn nicu. 3. Dysphagia ? MBSS completed on 03/23; speech therapy noted that patient had very poor pharyngeal clearance on the for swallow of the first trial (thin liquid by teaspoon) with aspiration of pharyngeal residue on the second swallow. For other trials, he had mild to moderate pharyngeal residues noted. Mild retention of cookie and upper/middle esophagus noted, somewhat cleared with liquid wash. With patient respiratory status improving diet is being advanced as tolerated 4.. 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 Oncology following as above. Thoracotomy with biopsy done on 02/08 at [facility] and pathology showed DLBCL. PET/CT scan on 03/08 showed extensive tumor involvement with hypermetabolic activity seen at the left pleural, numerous left rib thoracic vertebrae and sternum, bilateral mediastinum left greater than right, left chest wall and right pelvis. Completed first round of R?CHOP on 03/10. Saw oncology in the office on 03/14 and reported fatigue but was still completing his ADLs. Consult placed to oncology notes and recommendations reviewed 5. Physical deconditioning ? Requested for PT OT eval and psychiatric social worker to assist with discharge planning 6. Hypercalcemia of malignancy ? Patient calcium levels improved with rehydration we will continue with monitoring 7. Anemia ? Secondary to chronic disorder monitoring H&H and transfuse if patient becomes symptomatic or hemoglobin falls below 7 8. Hypernatremia ? Patient sodium levels on 6 was 145 up to 152 this a.m.Patient had been managed with diuretic therapy on account of his fluid overload. With his sodium rising furosemide was held started on D5 half-normal saline with serial Q8 sodium levels ordered. ? 03/29/2025; no significant improvement in patient's sodium levels. Adjusted IV fluid with initiation of D5W and discontinuation of 0.45 saline ? 03/30/2025; patient sodium levels down to 145 9. Chronic kidney disease stage IV ? Patient kidney function at baseline 10. DVT prophylaxis ? Subcu heparin Time spent in the patient's overall evaluation,decision-making process, review of diagnostic data, adjustment of management, discussion with other providers, nursing nursing and ancillary staff involved in patient's care documentation, 36 Minutes Allergies/Procedures Done in Hospital Allergies No Known Allergies Allergy (Verified 03/21/25 19:02) Type of Care/Length of Stay Estimated LOS: Convalescent Care Less Than 30 days Type of Care Needed: Skilled Rehab Potential: Good Prognosis: Good Additional Orders/Day of Discharge Day of Discharge: 03/30/25 Dietary and Speech Recommendations Dietitian Recommendations/Changes: Continue regular, fortified foods per LIFE SKILLS INSTRUCTOR texture/thickness recommendations. Will discontinue 120mL EPHP 4x daily with medpass, and order 240mL vanilla EPHP with meals. Will monitor weight trends. Discharge Plan Admission Admit Date/Time: 03/21/25 23:37 Attending Provider: Rodney Syed Primary Care Provider: Sacha Hernandez Consulting Providers: Korey Aly; Jun Samuel; Emeka Rudd; Horacio Butler; Jason Wen; Rodney Moss; Dea Corona; Jay Hammer; Fransisco Alegria; Nickolas Baum; Saarh Braxton; Zane Felipe; Percy Meeks; Joi Antonio; Tobin Lanier; Eddie Ray; Kelvin Cox; Deepti Bentley; Christiana Lainez; Soy Crum; Pina Sunshine; Trevon Duque; Sacha Guillen; Linda Cunningham; Claudette Barfield; Donn Rodriguez; Rosy Robison; Linda Barragan; Jesus Mendoza; Obi Coker; Ephraim Wisdom; Nafisa Vasques; Donato Cotton; Betty Lightkhdeep; Isauro Hinson; Becky,Dwight; Miller,Marilyn; Walt,Sampravin; Peter Davis; Merry,Bryant; Jarett,Edmund; Radha Thurman; Alberto Wood; Rodney Wilkes; Parrish Miranda; Abdirahman Cordova; Naresh Ennis; Felipe Musa; Israel Cain; Frank Harmon; Thom Green; Ondina Youngblood NP; Payam Garcia Discharge Orders/Prescriptions Prescriptions: New furosemide 40 mg Tablet 40 mg PO DAILY Qty: 0 0RF acetaminophen 325 mg Tablet 650 mg PO Q6H PRN PRN (Reason: Pain 1-10 Or Fever >100.7) Qty: 0 0RF prednisone 20 mg Tablet 40 mg PO BREAKFAST Qty: 10 0RF levofloxacin 750 mg Tablet 750 mg PO Q48 Qty: 3 0RF metronidazole 500 mg tablet 500 mg PO TID Qty: 15 0RF potassium chloride 20 mEq tablet,ER particles/crystals 20 meq PO BID Qty: 30 0RF Continued allopurinol 300 mg tablet 300 mg PO QDAY Qty: 30 0RF ondansetron 8 mg tablet,disintegrating 8 mg PO Q12H PRN (Reason: nausea and vomiting) Qty: 30 0RF senna 8.6 mg capsule 8.6 mg PO DAILY PRN (Reason: constipation) 5 Days Qty: 5 0RF Referrals / Follow Up: Sacha Hernandez DO [Primary Care Provider, Family Practice] - Within 2 Weeks Disposition Disposition (needs filled in before D/C Order can be placed): Residential Facility (2) DLBCL (diffuse large B cell lymphoma) Qualifiers: Lymphoma site: multiple regions Qualified Code(s): C83.38 - Diffuse large B-cell lymphoma, lymph nodes of multiple sites
--- NOTE | 2025-03-30 10:03 | PHA.DC.MR.R ---
Pharmacy [place] Med Reconciliation Pharmacy Service has performed discharge medication reconciliation for this patient. The patient's discharge medication list was reviewed for discrepancies and discrepancies were resolved. Medications at Discharge Home Medications sennosides 8.6 mg capsule (senna) 8.6 mg PO DAILY PRN constipation 5 days #5 caps 02/14/25 allopurinol 300 mg tablet 300 mg PO QDAY #30 tabs 03/02/25 ondansetron 8 mg disintegrating tablet 8 mg PO Q12H PRN nausea and vomiting #30 tabs 03/10/25 acetaminophen 325 mg tablet 650 mg (2 x 325 mg) PO Q6H PRN PRN Pain 1-10 Or Fever >100.7 #0 tabs 03/30/25 furosemide 40 mg tablet 40 mg PO DAILY #0 tabs 03/30/25 levofloxacin 750 mg tablet 750 mg PO Q48 #3 tabs 03/30/25 metronidazole 500 mg tablet 500 mg PO TID #15 tabs 03/30/25 potassium chloride 20 mEq tablet,extended release(part/cryst) 20 meq PO BID #30 tabs 03/30/25 prednisone 20 mg tablet 40 mg (2 x 20 mg) PO BREAKFAST #10 tabs 03/30/25
--- NOTE | 2025-03-30 11:06 | CASEMGMT ---
CHRISTINE RUIZ updated by Roro in TCU that precert has been obtained for patient to admit to TCU for skilled LOC. CHRISTINE RUIZ updated hospitalist, patient is medically ready to discharge. CHRISTINE RUIZ updated TCU and faxed discharge paperwork to TCU nurse's station. CHRISTINE RUIZ in to update patient and . Patient and agreeable to plan and voiced appreciation. Patient and had no further questions or concerns. CHRISTINE RUIZ updated nursing.
== END 2025-03-30 13:54 | disposition skilled nursing facility (03) | DRG 177 ==
LOC: ED 21:14 → PCU 23:47 → ICU 03-24 16:13 → PCU 03-28 07:28 → ICU 03-28 16:20
PROVIDERS: Hospitalist; Admitting Provider Family Medicine; Emergency Provider Surgery; PCP Family Medicine; Visit Provider Internal Medicine
DX: J69.0 Pneumonitis due to inhalation of food and vomit (principal); J96.01 Acute respiratory failure with hypoxia; I50.33 Acute on chronic diastolic (congestive) heart failure; C83.38 Diffuse large B-cell lymphoma, lymph nodes of multiple sites; D84.821 Immunodeficiency due to drugs; I13.0 Hypertensive heart and chronic kidney disease with heart failure and stage 1 through stage 4 chronic kidney disease, or unspecified chronic kidney disease; N18.4 Chronic kidney disease, stage 4 (severe); E87.0 Hyperosmolality and hypernatremia; N17.9 Acute kidney failure, unspecified; E87.1 Hypo-osmolality and hyponatremia; D63.8 Anemia in other chronic diseases classified elsewhere; B96.89 Other specified bacterial agents as the cause of diseases classified elsewhere; T17.928A Food in respiratory tract, part unspecified causing other injury, initial encounter; I48.91 Unspecified atrial fibrillation; E86.0 Dehydration; E83.52 Hypercalcemia; M10.9 Gout, unspecified; R50.2 Drug induced fever; W44.F3XA Food entering into or through a natural orifice, initial encounter; R13.10 Dysphagia, unspecified; R53.81 Other malaise; T45.1X5A Adverse effect of antineoplastic and immunosuppressive drugs, initial encounter; T50.4X5A Adverse effect of drugs affecting uric acid metabolism, initial encounter; Z79.899 Other long term (current) drug therapy
CPT/HCPCS: 36415; 36600; 71045; 71046; 71250; 74230; 80048; 80053; 80076; 81001; 82803; 83605; 83735; 83880; 84100; 84443; 84484; 84550; 85025; 85027; 85610; 85730; 87040; 87070; 87086; 87088; 87205; 87493; 87506; 87631; 87641; 92526; 92610; 92611; 93005; 94660; 94762; 97116; 97162; 97166; 97530; 97535; 97802; 97803; 99282; 99285; A4216; J1938

== ENCOUNTER 2025-03-30 14:09 | Inpatient (IN) | payer MEDICARE, SELFPAY ==
[2025-03-30 14:43] VITALS: BP 98/65; PULSE 75; RESP 17; TEMP 37.6; O2SAT 98; BMI 19.3
--- NOTE | 2025-03-30 16:23 | CASEMGMT ---
Social Work SW met with patient at bedside. Introduced self and role. pt requested be present to assist with answering questions d/t lack of voice. remained at bedside. Verified/updated contacts. Educated to [facility] insurance and review process. Pt's goal is to improve strength to return home with and resume cancer tx. SW provided support to pt and with dx. Educated to [place] and provided resources. SW will continue to follow for DC planning and support. Karoline Page MAINTENANCE PAINTER AUTOMATIC MACHINES SUPERVISOR
[2025-03-30] MEDS: Potassium Chloride Oral Tablet 20 MEQ PO (17:03)
--- NOTE | 2025-03-30 20:26 | PCM.HP.STD ---
HPI - General General Date of Admission: 03/30/25 Date of Service: 03/30/25 HPI Narrative JUJU HALL, is a 79 M who presents with followin03/21/2025 [facility] ED Fever. B cell lymphoma, chemotherapy with Dr. Miranda. Fever, fatigue, decreased oral intake. William cultured, Vancomycin, Zosyn, IV fluid bolus for sepsis/fever unknown origin. 03/21/2025 Admit [facility]. Chest X-ray negative, urinalysis negative, covid negative, flu negative. Vancomycin, Zosyn, IV fluids for sepsis, fuo. IV fluids, consider bisphosphonate for hypercalcemia. 03/22/2025 Fatigue, chills. Blood cultures pending. Continue Vancomycin, Zosyn. Calcium improved from 11.4 to 10.3 with IV fluids. NPO, DIRECTOR OF EVENTS for dysphagia. 03/23/2025 Fatigue, increased work of breathing. Stop Allopurinol, can cause fever. Chest X-ray shows aspiration pneumonia, continue Vancomycin, Zosyn MBS recommended modified diet. 03/24/2025 CT chest showed pulmonary edema, pneumonia versus pneumonitis. Transfer to ICU. IV steroids, IV lasix. Atrial fibrillation with rvr, converted to sinus rhythm with cardizem 20mg iv. Continue Vancomycin, Zosyn for aspiration pneumonia. 03/25/2025 Moderately improved, oxygen improved, weak. Solu-medrol 40mg iv q8, Lasix 40mg iv bid for pneumonitis, pulmonary edema. Vancomycin, Zosyn for aspiration pneumonia. PT/OT/CM. 03/26/2025 Weak, oxygen improving, oxygen 6 liters per nasal cannula. Vancomycin, Zosyn x 7 days for sepsis, aspiration pneumonia. 03/27/2025 Weak, oxygen 4 liters per nasal cannula. Zosyn IV x 7 days, stop date 03/28/2025. Transition Lasix IV to Lasix PO. Transition Solu-medrol IV to prednisone PO. PT/OT Debility. 03/28/2025 Zosyn IV, Solu-medrol for aspiration pneumonia, pneumonitis. PT/OT SNF. Hold Lasix, give D51/2 for hypernatremia. 03/29/2025 D5W IV for hypernatremia. Zosyn/Solu-medrol for aspiration pneumonia, pneumonitis. 03/30/2025 Admit to TCU with debility, here for rehabilitation, strengthening, prior to discharge home with Stephanie. [facility] Medical History Malignant neoplasm of thorax Vasovagal syncope Rheumatic fever Hypercalcemia Dyspnea Recurrent left pleural effusion Acute kidney injury Pleural effusion Lung mass Macular degeneration Home Medications ?Medication ?Instructions ?Recorded ?Last Taken ?Type sennosides 8.6 mg capsule (senna) 8.6 mg PO DAILY PRN constipation 5 02/14/25 Unknown Rx days #5 caps allopurinol 300 mg tablet 300 mg PO QDAY Gout #30 tabs 03/02/25 03/22/25 Rx ondansetron 8 mg disintegrating 8 mg PO Q12H PRN nausea and 03/10/25 Unknown Rx tablet vomiting #30 tabs acetaminophen 325 mg tablet 650 mg (2 x 325 mg) PO Q6H PRN PRN 03/30/25 03/22/25 Rx Pain 1-10 Or Fever >100.7 #0 tabs furosemide 40 mg tablet 40 mg PO DAILY Swelling #0 tabs 03/30/25 03/30/25 08:10 Rx levofloxacin 750 mg tablet 750 mg PO Q48 Antibiotic #3 tabs 03/30/25 03/30/25 08:10 Rx metronidazole 500 mg tablet 500 mg PO TID Antibiotic #15 tabs 03/30/25 Unknown Rx potassium chloride 20 mEq 20 meq PO BID Supplement #30 tabs 03/30/25 Unknown Rx tablet,extended release(part/cryst) prednisone 20 mg tablet 40 mg (2 x 20 mg) PO BREAKFAST 03/30/25 03/30/25 08:10 Rx Inflammation #10 tabs Allergy/AdvReac Type Severity Reaction Status Date / Time No Known Allergies Allergy Verified 03/21/25 19:02 Family History Brother Cancer throat Epilepsy Glaucoma Father Glaucoma Other Throat cancer Surgical History History of lung biopsy History of thoracentesis Social History (Updated 03/30/25 @ 20:[address] 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, [employer] pets and animals: No history of recent travel: No Smoking Status: Never smoker alcohol intake: never substance use type: does not use caffeine: No what type of physical activity do you participate in: walking seatbelt use: always ROS Constitutional Constitutional: Reports weakness; Denies chills, fever(s) or weight gain ENT HEENT: Denies headache(s), nasal congestion or nasal discharge Cardiovascular Cardiovascular: Denies chest pain or palpitations Respiratory/Chest Respiratory/Chest: Denies cough, excessive phlegm production or shortness of breath with exertion Gastrointestinal Gastrointestinal: Denies abdominal pain, nausea or vomiting Genitourinary Genitourinary: Denies dysuria Musculoskeletal Musculoskeletal: Denies joint pain or joint swelling Integumentary Integumentary: Denies rash or wounds Neurologic Neurologic: Denies focal weakness, numbness or tingling Psychiatric Psychiatric: Denies anxiety, auditory hallucinations, depression, homicidal ideation or suicidal ideation Vital Signs Vital Signs Vital Signs: 03/30/25 14:43 Temperature 99.6 F H Temperature Source Temporal Pulse Rate 75 Respiratory Rate 17 Blood Pressure 98/65 Blood Pressure Mean 76 Blood Pressure Source Monitor Blood Pressure Position Sitting Blood Pressure Location Right Arm Pulse Ox 98 Oxygen Delivery Method Nasal Cannula Oxygen Flow Rate (L/min) 3 Weight Weight: 54.233 kg Body Mass Index (BMI) 19.3 Physical Exam Const alert General Appearance: cooperative HEENT normocephalic Eyes PERRL and EOMs intact bilaterally Neck supple, no JVD and no carotid bruits Resp normal respiratory effort, normal air movement and clear to auscultation bilaterally Auscultation: rhonchi and wheezes Cardio regular rate and regular rhythm GI normal to inspection, nondistended, normoactive bowel sounds, non-tender and non-distended Extremity normal capillary refill General Extremity: Negative for edema Skin no rashes or lesions noted General Skin Exam: no breakdown Psych affect normal Appearance: appropriate Assessment & Plan Assessment/Plan (1) Debility: (2) Sepsis: (3) Acute respiratory failure with hypoxia: (4) Aspiration pneumonia: (5) Pneumonitis: (6) Pulmonary edema: (7) Hypernatremia: (8) DLBCL (diffuse large B cell lymphoma): QUALIFIERS: Lymphoma site: multiple regions Qualified Code(s): C83.38 - Diffuse large B-cell lymphoma, lymph nodes of multiple sites (9) Gout: (10) Macular degeneration: PLAN: Plan 79 year old male with below past medical history significant for diffuse large B Cell lymphoma hospitalized for sepsis, acute respiratory failure 2/2 aspiration pneumonia/pneumonitis, complicated by pulmonary edema, dysphagia, hypernatremia, admitted to TCU with debility, here for rehabilitation, strengthening, prior to discharge home with . Debility - PT/OT. Dysphagia - ST. Pain - Tylenol 1000mg q6 prn pain (1-10). Bowel - senna/colace 1 tablet bid prn. Adult immunization - Administer pneumonia vaccine, covid vaccine, flu vaccine as appropriate. DVT prophylaxis - Lovenox 40mg sc daily. Diffuse large B cell lymphoma - follow with Dr. Miranda to continue treatment after rehab. 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 Pulmonary edema - Furosemide 40mg daily. Aspiration pneumonia - Levaquin 750mg po q48 thru 04/05/2025, Flagyl 500mg tid thru 04/04/2025. Pneumonitis - Prednisone 40mg taper. Skin irritation - Calmoseptine topical bid. Nausea - Zofran 8mg q12 prn. Hypokalemia - KCL 20meq bid.
[2025-03-30 22:00] VITALS: PULSE 108; O2SAT 98
[2025-03-30] MEDS: 0.9% Saline Lock 10 ML Syringe IV (22:09)
[2025-03-31 04:21] VITALS: PULSE 88; O2SAT 94
[2025-03-31 07:03] VITALS: O2SAT 94
[2025-03-31 08:11] VITALS: BP 119/70; PULSE 113; RESP 18; TEMP 36.6; O2SAT 99
[2025-03-31] MEDS: Potassium Chloride Oral Tablet 20 MEQ PO ×2 (08:13→18:08)
[2025-03-31 09:02] LABS: Hematocrit 31.8 % (40-54); Hemoglobin 10.3 g/dL (13.0-16.5); Mean Corp Hgb Conc 32.4 g/dL (32-36); Mean Corpuscular Volume 93.5 fL (80-94); Mean Platelet Vol. 11.1 fl (6.2-12.0); POSITIVE COUNT YES; POSITIVE DIFFERENTIAL YES; POSITIVE MORPHOLOGY YES; Platelet Count 430 K/mm3 (150-450); RBC Distribution Width CV 16.0 % (11.6-14.6); RBC Distribution Width SD 53.9 fl (35.1-43.9); Red Blood Count 3.40 M/mm3 (4.6-6.2); White Blood Count 24.8 K/mm3 (4.4-11.0)
[2025-03-31 09:03] LABS: Differential Indicated MANUAL DIFF
[2025-03-31 09:27] LABS: Neutrophil-Band 3 % (0-5); Neutrophil-Segmented 82 % (47-70); Total Cells Counted 100 (MANUAL DIFF)
[2025-03-31 09:28] LABS: Red Cell Morphology NORM C+C NORMAL (NORM C&C)
[2025-03-31] MEDS: Mineral Oil/Petrolatum Cr 1.75oz Bottle 1 APPLIC TOPICAL ×2 (09:31→22:33)
[2025-03-31 09:41] LABS: Anion Gap 13 (5-15); BUN 46 mg/dL (4-19); BUN/Creat Ratio 25.1 RATIO (10-20); Calcium,Total 10.2 mg/dL (7.6-11.0); Carbon Dioxide 26.6 mmol/L (21.0-32.0); Chloride 103 mmol/L (98-108); Estimated Creatinine Clearance 24.55 ml/min (50-250); Glucose 117 mg/dL (70-99); Potassium 4.0 mmol/L (3.3-5.1)
[2025-03-31] MEDS: Tuberculin,Purif.prot.deriv. 50 TU/ML Vial 0.1 ML ID (12:14)
[2025-03-31] MEDS: 0.9% Saline Lock 10 ML Syringe IV (14:26)
--- NOTE | 2025-03-31 14:51 | PCM.PN.DRR ---
Documented by User: Yury Delacruz 03/31/25 15:16 TCU RX Drug Regimen Review Subjective/Objective Subjective/Objective Subjective: TCU Admission. 79 year old male hospitalized for sepsis, acute respiratory failure 2/2 aspiration pneumonia/pneumonitis, complicated by pulmonary edema, dysphagia, hypernatremia. Admitted to TCU with debility, here for rehabilitation, strengthening, prior to discharge home with . Objective: Allergies No Known Allergies Allergy (Verified 03/21/25 19:02) Current Medications Generic Name Dose Route Start Last Admin Trade Name Freq PRN Reason Stop Dose Admin Acetaminophen 1,000 mg 03/30/25 20:42 Acetaminophen 500 Mg Tablet PO Q6H PRN PRN Pain 1-10 Or Fever >100.7 Allopurinol 300 mg 03/31/25 08:00 03/31/25 08:13 Allopurinol 300 Mg Tablet PO 300 mg DAILYCM DAISY Administration Calamine/Phenol 1 applic 03/30/25 22:00 03/31/25 08:14 Menthol/Lanolin/Calamine/Znox 113 Gm Tube TOPICAL 1 applic BID DAISY Administration Protocol Enoxaparin Sodium 30 mg 03/31/25 06:00 03/31/25 06:09 Enoxaparin 30 Mg/0.3 Ml Syringe SC 30 mg DAILY@0600 DAISY Administration Furosemide 40 mg 03/31/25 10:00 03/31/25 08:14 Furosemide 40 Mg Tablet PO 40 mg DAILY DAISY Administration Protocol Sodium Chloride 250 mls @ 15 mls/hr 03/30/25 15:16 IV .[id number] PRN Saline Flush Sodium Chloride 250 mls @ 15 mls/hr 03/30/25 15:16 IV .[id number] PRN Additional IVPB Infusion Levofloxacin 750 mg 04/01/25 10:00 Levofloxacin 750 Mg Tablet PO 04/05/25 10:01 Q48 DAISY Metronidazole 500 mg 03/30/25 22:00 03/31/25 14:26 Metronidazole 500 Mg Tablet PO 04/04/25 14:01 500 mg TID DAISY Administration Multi-Ingredient Ointment 1 applic 03/31/25 10:00 03/31/25 09:31 Mineral Oil/Petrolatum Cr 1.75oz Bottle TOPICAL 1 applic BID DAISY Administration Protocol Ondansetron HCl 8 mg 03/30/25 15:53 Ondansetron Odt 4 Mg Tablet GT Q12H PRN nausea and vomiting Potassium Chloride 20 meq 03/30/25 17:00 03/31/25 08:13 Potassium Chloride Oral Tablet 20 Meq PO 20 meq BIDCM DAISY Administration Prednisone 40 mg 03/31/25 08:00 03/31/25 08:13 Prednisone 20 Mg Tablet PO 04/09/25 08:01 40 mg BREAKFAST DAISY Administration Senna/Docusate Sodium 1 tablet 03/30/25 20:41 Senna/Docusate Sodium 1 Tablet PO BID PRN Constipation Sodium Chloride 10 - 40 ml 03/30/25 15:16 03/31/25 14:26 0.9% Saline Lock 10 Ml Syringe IV 10 ml UD PRN Administration SALINE FLUSH Tuberculin PPD 0.1 ml 04/07/25 10:00 Tuberculin,Purif.Prot.Deriv. 50 Tu/Ml Vial ID 04/07/25 10:01 X1 ONE Problem List Gout (Acute) Hypernatremia (Acute) Pulmonary edema (Acute) Pneumonitis (Acute) Aspiration pneumonia (Acute) Acute respiratory failure with hypoxia (Acute) Sepsis (Acute) Debility (Acute) DLBCL (diffuse large B cell lymphoma) (Chronic) Macular degeneration (Acute) Vital Signs Temp Pulse Resp BP Pulse Ox O2 Del Method O2 Flow Rate 97.9 F 113 H 18 119/70 99 Nasal Cannula 3 03/31/25 08:11 03/31/25 08:11 03/31/25 08:11 03/31/25 08:11 03/31/25 08:11 03/31/25 08:11 03/31/25 13:33 Oxygen Flow Rate (L/min) 3 Oxygen Delivery Method Nasal Cannula Weight: 54.233 kg Body Mass Index (BMI) 19.3 Sodium 142 mmol/L (133-145) 03/31/25 08:52 Potassium 4.0 mmol/L (3.3-5.1) 03/31/25 08:52 Chloride 103 mmol/L (98-108) 03/31/25 08:52 Carbon Dioxide 26.6 mmol/L (21.0-32.0) 03/31/25 08:52 Anion Gap 13 (5-15) 03/31/25 08:52 BUN 46 mg/dL (4-19) H 03/31/25 08:52 Creatinine 1.81 mg/dL (0.70-1.20) H 03/31/25 08:52 Est GFR (MDRD) Non-Af 37 (>60) L 03/31/25 08:52 BUN/Creatinine Ratio 25.1 RATIO (10-20) H 03/31/25 08:52 Glucose 117 mg/dL (70-99) H 03/31/25 08:52 Assessment/Plan: 1. Pain - Tylenol 1000mg PO Q6H PRN pain (1-10) Resident has not used any prn doses at this time. Monitor pain scores before/after prn administration for response, PRN pain medication usage, symptoms of pain/resident distress and ability to participate in therapy. Last AST/ALT: 48/36 (03/24/25). Check LFTs if resident develops symptoms of hepatoxicity. Consider monitoring LFTs if patient using > 3 gm/day of acetaminophen for prolonged period. Do not exceed 4000 mg in 24 hours. 2. Bowel - senna/colace 1 tablet PO BID PRN constipation. Last document bowel movement: 03/30/25. Monitor for usage of prn medications, abdominal pain, frequency of bowel movements, diarrhea. Recommend holding bowel regimen if resident develops diarrhea. 3. DVT prophylaxis - Lovenox 40mg SC daily. Monitor for symptoms of VTE (new onset leg pain, swelling, erythema, SOB, chest pain, hypoxia) and bleeding. 4. Diffuse large B cell lymphoma - follow with Dr. Miranda to continue treatment after rehab. 5. 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 Please monitor renal function (SCr: 1.81), as well as for agitation and sign/symptoms of joint pain. 6. Pulmonary edema - Furosemide 40mg PO daily. Monitor serum potassium (last K = 4.0 (03/31)), magnesium (last Mg= 2.3 (03/31)), calcium (last Ca = 10.2 (03/31)) and sodium (last Na = 142 (03/31)).?Monitor volume status, symptoms of orthostasis, and renal function (SCr = 1.81 (03/31)). 7. Aspiration pneumonia - Levaquin 750mg PO q48 thru 04/05/2025, Flagyl 500mg PO TID thru 04/04/2025. Please monitor for diarrhea, abdominal pain, fever, increasing WBC, and altered mental status. WBC: 24.8 (03/31). Black Box Warning: levofloxacin - with an adverse effect of tendonitis and tendon rupture. 8. Pneumonitis - Prednisone 40mg taper (PO). Please monitor for worsening SOB/wheezing, irritation, insomnia, flushing and fever. 9. General Wellness - Calmoseptine topical BID, Zofran 8mg PO Q12H PRN nausea, KCL 20 mEq PO BID. Please monitor for PRN medication usage, symptoms of nausea/vomiting, worsening skin irritation, and potassium levels. (last K = 4.0). Assessment/Plan for indications treated with psychotropic medications: Resident is not prescribed scheduled or prn psychotropic medications at the time of this drug regimen review. Medical chart and medication regimen reviewed. The following medication irregularities or issues were identified: - No recommendations for resident at this time. Date Date of Note: 03/31/25 Documented by User: Dr. Alber Raines MD 03/31/25 15:53 TCU RX Drug Regimen Review Provider Comments Provider responsibility Provider Comments to Recommendations by Pharmacy Agree
[2025-03-31 16:42] VITALS: O2SAT 98
[2025-04-01 10:12] VITALS: BP 124/107; PULSE 158; TEMP 35.9
[2025-04-01 10:17] VITALS: BP 127/78; PULSE 121; O2SAT 94
--- NOTE | 2025-04-01 10:21 | NURSING ---
Called into room around 1010 by EYEGLASS FRAMES INSPECTOR after resident fell. Per EYEGLASS FRAMES INSPECTOR, he had been a bit dizzy when sitting on side of bed but then felt ok to get up and ambulated to BR. He became unsteady in BR and fell into shower. Per him and EYEGLASS FRAMES INSPECTOR, he bumped his head lightly on shower floor. He was weak and slow to respond at first, helped to sit up then to WC with 4 staff members. Gait belt in use, non-skid socks on. Vitals taken, heart rate in 140s. Helped him to bed, vitals re-checked and heart rate in 120s, other vitals WNL. PERRLA. Wing Mailer Machine Operator/pedal push/pulls strong and equal. Dr. Raines updated by primary RN, order to send to ER for evaluation. Sent to ER at 1030. updated, she was on her way in to hospital, will head to ER.
--- NOTE | 2025-04-01 15:33 | CHAPLAIN ---
Type of Pastoral Visit _x__ Initial Visit _x__ Follow-up Visit ___ On-call Visit ___ General Patient Visit ___ Spiritual Assessment ___ Family Conference ___ Bereavement ___ Rapid Response ___ Code Blue ___ Other (describe below) Pastoral Care Referral From _x__ Patient _x_ Family ___ Nurse ___ Physician ___ Client Development Director ___ Engraving Press Operator ___ Other (describe below) Sacrament/Intervention _x__ Active listening ___ Anointing ___ Buddhist ___ Bereavement ___ Communion _x__ Rosemarie exploration ___ ___ Life review _x__ Prayer ___ Reconciliation ___ Sacrament of Sick _x__ Supportive presence ___ Wedding ___ Other (describe below) Pastoral Comments went to do a follow up visit with patient in TCU that had been previously seen in PCU; however pt had been taken to the ED; found pt in ED as he was being returned to exam room; pt is able to express his feelings and his questions on how to pray considering his situation with declining health and weakness; spouse walks into room and engages in conversation too; spouse is feeling stretched by many days in hospital and ED visits for the patient; prayer and presence given and welcomed for the future
[2025-04-01] MEDS: Potassium Chloride Oral Tablet 20 MEQ PO (17:41)
[2025-04-01 20:00] VITALS: PULSE 113; O2SAT 98
[2025-04-01] MEDS: Mineral Oil/Petrolatum Cr 1.75oz Bottle 1 APPLIC TOPICAL (22:23)
[2025-04-01] MEDS: 0.9% Saline Lock 10 ML Syringe IV (22:24)
[2025-04-02 06:40] LABS: Hematocrit 28.9 % (40-54); Hemoglobin 9.1 g/dL (13.0-16.5); Mean Corp Hgb Conc 31.5 g/dL (32-36); Mean Corpuscular Volume 94.4 fL (80-94); Mean Platelet Vol. 11.0 fl (6.2-12.0); POSITIVE COUNT YES; POSITIVE DIFFERENTIAL YES; POSITIVE MORPHOLOGY YES; Platelet Count 334 K/mm3 (150-450); RBC Distribution Width CV 16.3 % (11.6-14.6); RBC Distribution Width SD 55.1 fl (35.1-43.9); Red Blood Count 3.06 M/mm3 (4.6-6.2); White Blood Count 22.1 K/mm3 (4.4-11.0)
[2025-04-02 06:42] LABS: Differential Indicated MANUAL DIFF
[2025-04-02 06:52] VITALS: PULSE 105; O2SAT 99
[2025-04-02 07:28] LABS: Neutrophil-Band 2 % (0-5); Neutrophil-Segmented 83 % (47-70); Total Cells Counted 100 (MANUAL DIFF)
[2025-04-02 08:31] VITALS: BP 103/70; PULSE 92; RESP 17; TEMP 36.2; O2SAT 96
[2025-04-02] MEDS: Potassium Chloride Oral Tablet 20 MEQ PO ×2 (08:38→17:28)
[2025-04-02] MEDS: Mineral Oil/Petrolatum Cr 1.75oz Bottle 1 APPLIC TOPICAL ×2 (08:39→21:31)
[2025-04-02] MEDS: 0.9% Saline Lock 10 ML Syringe IV (08:47)
[2025-04-02 11:05] VITALS: O2SAT 100
--- NOTE | 2025-04-02 17:33 | NURSING ---
small foam dressing rolled up attached to tshirt, applied new lg foam dressing to intact blanchable reddened are to low back for pad & protect.
[2025-04-03] VITALS (7 sets, daily range): BP systolic 102–113; BP diastolic 68–81; PULSE 74–124; RESP 17–20; TEMP 36; O2SAT 82–96
--- NOTE | 2025-04-03 07:27 | EKG12_ITS ---
Test Reason : afib
--- NOTE | 2025-04-03 07:38 | NURSING ---
staff assisting to side of bed and he began feeling lightheaded, dyspneic, oxygen found to be disconnected at extension tubing. reapplied & increased oxygen to 4 liters, rebound sat at 99% immediately. reduced oxygen back to 3 liters. pt sitting in bed, HOB elevated 70 degrees sat 99% now. pt feeling better. EKG ordered, respiratory notified. call light in reach. pt feeling better, not in distress. pt has history of vasovagal with movement.
--- NOTE | 2025-04-03 10:25 | NURSING ---
dr mckay notified of EKG results & continued elevated HR. new order to start metoprolol 12.5mg BID. pt updated. encouraged to drink more fluids.
[2025-04-03] MEDS: Potassium Chloride Oral Tablet 20 MEQ PO ×2 (10:47→16:14)
[2025-04-03] MEDS: Mineral Oil/Petrolatum Cr 1.75oz Bottle 1 APPLIC TOPICAL ×2 (10:48→22:04)
--- NOTE | 2025-04-03 14:42 | NURSING ---
pt c/o tailbone pain, many attempts to reposition pt in bed w/out success. refusing to turn on his side d/t shoulder pain, joint pain. tried elevating with 2 pillows under each side, ineffective. assisted pt to chair with ROHO cushion, felt ok for approx 5 minutes then began having pain again 12/09. at side. offered tylenol & pt took. resting in chair, legs elevated. call light in reach. will try polar care, pt agreeable.
--- NOTE | 2025-04-03 15:47 | RAD_ITS ---
PROCEDURE: RAD/Sacrum-Coccyx min 2 Views
--- NOTE | 2025-04-03 15:51 | NURSING ---
pt c/o sacral/tailbone pain, pt cannot get comfortable. rating 7-9/10. repositioning ineffective. transfered pt x2 staff to bed from chair, placed on RT side for now. at side. dr mckay notified, new order ultram PRN & xray sacrum
--- NOTE | 2025-04-03 15:58 | NURSING ---
pt off unit to xray via bed
[2025-04-04] VITALS (7 sets, daily range): BP systolic 105–110; BP diastolic 71–72; PULSE 79–109; RESP 16–18; TEMP 36.2; O2SAT 94–99
[2025-04-04] MEDS: Potassium Chloride Oral Tablet 20 MEQ PO ×2 (10:26→17:30)
[2025-04-04] MEDS: Mineral Oil/Petrolatum Cr 1.75oz Bottle 1 APPLIC TOPICAL ×2 (10:28→20:55)
--- NOTE | 2025-04-04 13:19 | NURSING ---
notified dr mckay pt dizzy while toileting B/P 89/62 HR 116- orders given for 0.9 500ml bolus
[2025-04-04] MEDS: 0.9% Normal Saline (500mL Bag) 500 ML 999 ML IV (13:25)
[2025-04-04] MEDS: 0.9% Saline Lock 10 ML Syringe IV (20:57)
[2025-04-05] VITALS (7 sets, daily range): BP systolic 111–115; BP diastolic 71–78; PULSE 103–105; RESP 16; TEMP 36.2; O2SAT 94–99
[2025-04-05] MEDS: Potassium Chloride Oral Tablet 20 MEQ PO ×2 (10:16→17:51)
[2025-04-05] MEDS: Mineral Oil/Petrolatum Cr 1.75oz Bottle 1 APPLIC TOPICAL ×2 (11:26→21:30)
--- NOTE | 2025-04-05 14:13 | NURSING ---
Had lengthy discussion with and resident about code status. Resident expressed having good and bad days, feels differently about resuscitation depending on how he's doing. He indicated maybe leaning towards DNR CCA, but decided at this time to give it a week and see how he feels. involved in conversation and supportive of whatever resident wanted. Answered all questions.
[2025-04-05] MEDS: Doxepin Hydrochloride 10 MG Capsule PO (21:31)
[2025-04-05] MEDS: 0.9% Saline Lock 10 ML Syringe IV (21:33)
[2025-04-06 02:47] VITALS: PULSE 97; O2SAT 99
[2025-04-06 08:30] VITALS: BP 123/85; PULSE 109; RESP 18; TEMP 35.7
[2025-04-06 08:34] VITALS: PULSE 109
[2025-04-06] MEDS: Potassium Chloride Oral Tablet 20 MEQ PO ×2 (08:34→17:57)
[2025-04-06] MEDS: Mineral Oil/Petrolatum Cr 1.75oz Bottle 1 APPLIC TOPICAL ×2 (08:35→20:44)
[2025-04-06] MEDS: 0.9% Saline Lock 10 ML Syringe IV (08:42)
--- NOTE | 2025-04-06 08:42 | NURSING ---
Neonatal Intensive Care Nurse Note; MDS for 04/06/2025 Complete
--- NOTE | 2025-04-06 09:38 | CASEMGMT ---
Social Work IDT met with patient, and dtr for care plan meeting. Discussed patient's progress in PT/OT/ST/SN/RDN. Educated to [facility] insurance with NRD 04/06 and continued stay is not guaranteed stay is not guaranteed with each review. Provided pt/family with written communication of insurance process and copay coverage during stay. Pt is a x2 assist and fatigues very easily. Broached discussion of alternative DC plan. SW followed up with RN conversation with code status yesterday. SW focused on quality of life with lack of appetite/pain with swallowing and excessive fatigue with eating. Excessive discussion held around hospice, SNF placement, quality of life. Answered questions for pt and family. Pt did decide to change code status to DNR-CCA, no intubation. Pt is interested in considering hospice as maintain comfort, with stopping curative treatment. Family aware regardless of hospice decision, pt will need SNF and have already decided on SNF choices and were planning on touring. is aware OOP cost and able to accommodate. SW provided hospice list and educated to [facility], if patient qualifies, but if he stabilizes, he will need transferred to a SNF. Family electing [facility], if hospice is elected for DC plan. provided SNF choices - [facility] and [facility]. SW to place referrals to determine acceptance before family tours. Family appreciative of discussion, yet overwhelmed. SW provided ongoing emotional support to pt and family, and encouraged time to process information before making a decision. SW provided contact information and will remain available for ongoing support and needs for DC planning. Karoline Page MANAGER RESPIRATORY BEAUTY CONSULTANT
--- NOTE | 2025-04-06 10:50 | NURSING ---
Staff noted pt LT upper rib cage area incision from lung biopsy done in January opened up, superficial opening, notified wound nurse, Recommended placing steri strips, Steri strips placed, no active drng. GUTIERREZ. Call light in reach. pt resting in bed. & daughter at side
--- NOTE | 2025-04-06 11:27 | CASEMGMT ---
Social Work Pt's and dgt stopped SW requesting list of SNF options. A list of SNF providers including quality and resource use data and consistent with the patient?s preferred geographic region, medical needs, and insurance network were provided from the [facility] Guide. SW answered family's questions regarding discharge options. SW reviewed options of staying in TCU with rehab until insurance denies continued stay, going to SNF private pay with hospice and also explained the hospice IPU. Pt appreciated hearing information a second time. and dgt to tour facilities to make choices on preferred providers. does state she would like [facility] if a bed is available. SW will continue to follow for dc planning. HODAN Schmid
--- NOTE | 2025-04-06 12:04 | CASEMGMT ---
BIMS () and PHQ2 interviews completed on this date for MDS assessment. HODAN Schmid
--- NOTE | 2025-04-06 12:17 | NURSING ---
Offered covid vaccine, VIS provided. Resident declines.
--- NOTE | 2025-04-06 12:28 | CASEMGMT ---
Social Work Ref[facility] [place] [facility], per pt's 's request. HODAN Schmid
[2025-04-06 15:12] VITALS: BP 109/71; PULSE 106; RESP 16; TEMP 35.7; O2SAT 95
--- NOTE | 2025-04-06 15:23 | NURSING ---
pt noted to have mottling on pads of feet, vitals WNL. sat 95% on 3 liters oxygen. denies pain. Foam dressings changed to back and coccyx. upper and lower extremities & feet cold to touch. pt did change code status today to DNRCCA no intubation. message left with dr mckay to assess.
--- NOTE | 2025-04-06 15:41 | NURSING ---
Sock Ironer Note; Activity Asset: Mehran Dunlap has stated due to his health he prefers independent and family activities only. He welcomes the therapy dog and area intelligence technician when available. Staff will respect his wishes and visits weekly w/reading materials.
--- NOTE | 2025-04-06 16:24 | CASEMGMT ---
Social Work SW phoned to notify that [facility] and [facility] not have beds available. stated she just finished touring [facility] and that is first choice. SW inquired about additional SNF choices. overwhelmed and stated she was returning to the pts room and will reconvene. SW expressed understanding and provided support. SW reminded of IPU and offered to have nurse assessment, just in case, which may allow more time for DC planning for [facility]. to consider and wait to talk to Dr. Raines this evening. SW agreed and will continue to follow. Karoline Page RADIO RIGGER ELECTRICAL TECHNICIAN
[2025-04-06 20:45] VITALS: BP 106/70; PULSE 100
[2025-04-07 04:55] VITALS: PULSE 90; RESP 18; O2SAT 97
--- NOTE | 2025-04-07 08:11 | CASEMGMT ---
Addendum entered by Karoline Page 04/07/25 10:34: Hospice scheduled with pt's for 1330 this date. IDT updated. Addendum entered by Karoline Page 04/07/25 08:45: SW spoke with RN and RN confirmed pt is stable, but reportedly his feet are modeling, ice cold to the touch and may be actively in the dying process. - SW spoke with pt at bedside and confirmed conversation with pt. Pt stated he would like to talk to his son, but he is traveling today. SW inquired about pt's pain level and areas. Pt stated his feet, buttocks and throat are painful. SW inquired if pt wanted to attempt therapy today and pt confirmed. SW to contact to continue with the planning process. Pt agreed. - SW phoned to follow up on conversation with Dr. Raines. stated she confirmed hospice election and questioned IPU as she is concerned about pt needing to move locations again. SW explained pt will either stabilize and be able to transfer to a SNF or he will pass away in IPU. SW offered to make the referral and nurse to assess and hospice Dr to give their input, then /pt can make a decision. agreed to IPU assessment. will be present at bedside about 1000. - ADELAIDE sent secure email referral to [facility] indicating Urgent IPU referral. Will await outcome. Original Note: Social Work Dr Raines notified this worker after hours last evening that he spoke with pt and at bedside. Both agreeable to hospice. ADELAIDE will follow up with pt/ on SNF choices and rediscuss IPU. Karoline Page CHAINSTITCH TUNNEL ELASTIC OPERATOR WOOD CLUB NECK WHIPPER
[2025-04-07 08:46] VITALS: BP 100/68; PULSE 112; RESP 18; TEMP 35.7; O2SAT 91
[2025-04-07] MEDS: Potassium Chloride Oral Tablet 20 MEQ PO (08:50)
[2025-04-07 08:51] VITALS: PULSE 112
[2025-04-07] MEDS: Mineral Oil/Petrolatum Cr 1.75oz Bottle 1 APPLIC TOPICAL (08:52)
--- NOTE | 2025-04-07 09:01 | NURSING ---
oxygen turned up to 4 liters, sat 70-80's, but fingers very cold along with all extremities. fingertips cyanotic as well as toes and pads of feet. social welfare research worker aware and hospice to be in to see pt for IPU. pt positioned in bed, HOB elevated, heels up. call light in reach.
--- NOTE | 2025-04-07 14:46 | NURSING ---
hospice nurse here, discussing plans, and pt ok for IPU.
--- NOTE | 2025-04-07 14:52 | CASEMGMT ---
Social Work ADELAIDE spoke with pt's and hospice nurse Starr. Starr informed that pt has transitioned and is actively dying. Pt is approved for IPU and to transfer today. visibly overwhelmed, in shock and difficulty processing. ADELAIDE and Starr assisted with emotional support, ongoing direct compassionate education on pt's condition and needs. hesitant to sign hospice documents without consulting dtr and son. ADELAIDE and Starr agreed to contact children before signing. returned and spoke with dtr and son who both agreed to hospice IPU today. Son is traveling back to [facility] from [place] and plans to arrive about 1999. Dtr is currently working. did sign hospice consents. ADELAIDE phoned dtr to request support to , but left requesting return call. ADELAIDE phoned [facility] for cot transport - next available is 1730. ADELAIDE updated IDT, and hospice nurse. Plan: DC 04/07 to [facility] at 1730 Karoline GILES APPLICATION INTEGRATION ARCHITECT
--- NOTE | 2025-04-07 14:56 | NURSING ---
transport will be here at 1730 for transport to [facility]
--- NOTE | 2025-04-07 15:23 | PCM.DC.SUM ---
Providers Date of Admission: 03/30/25 Primary Care Physician: Dr. Sacha Hernandez, Reason For Visit: FEBRILE ILLNESS, B-CELL LYMPHOMA Diagnosis Discharge Diagnosis (1) Debility: Status: Acute Code(s): R53.81 - Other malaise (2) Sepsis: Status: Acute Code(s): A41.9 - Sepsis, unspecified organism (3) Acute respiratory failure with hypoxia: Status: Acute Code(s): J96.01 - Acute respiratory failure with hypoxia (4) Aspiration pneumonia: Status: Acute Code(s): J69.0 - Pneumonitis due to inhalation of food and vomit (5) Pneumonitis: Status: Acute Code(s): J98.4 - Other disorders of lung (6) Pulmonary edema: Status: Acute Code(s): J81.1 - Chronic pulmonary edema (7) Hypernatremia: Status: Acute Code(s): E87.0 - Hyperosmolality and hypernatremia (8) 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 Code(s): C83.30 - Diffuse large B-cell lymphoma, unspecified site Qualifiers: Lymphoma site: multiple regions Qualified Code(s): C83.38 - Diffuse large B-cell lymphoma, lymph nodes of multiple sites (9) Gout: Status: Acute Code(s): M10.9 - Gout, unspecified (10) Macular degeneration: Status: Acute Code(s): H35.30 - Unspecified macular degeneration Plan 79 year old male with below past medical history significant for diffuse large B Cell lymphoma hospitalized for sepsis, acute respiratory failure 2/2 aspiration pneumonia/pneumonitis, complicated by pulmonary edema, dysphagia, hypernatremia, admitted to TCU with debility, here for rehabilitation, strengthening, prior to discharge home with . Debility - PT/OT. Dysphagia - ST. Pain - Tylenol 1000mg q6 prn pain (1-10). Bowel - senna/colace 1 tablet bid prn. Adult immunization - Administer pneumonia vaccine, covid vaccine, flu vaccine as appropriate. DVT prophylaxis - Lovenox 40mg sc daily. Diffuse large B cell lymphoma - follow with Dr. Miranda to continue treatment after rehab. 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 Pulmonary edema - Furosemide 40mg daily. Aspiration pneumonia - Levaquin 750mg po q48 thru 04/05/2025, Flagyl 500mg tid thru 04/04/2025. Pneumonitis - Prednisone 40mg taper. Skin irritation - Calmoseptine topical bid. Nausea - Zofran 8mg q12 prn. Hypokalemia - KCL 20meq bid. Hospital Course Operations None Procedures None Summary of Care Provided Minutes Spent on Discharge: 35 Hospital Course: 79 year old male with below past medical history significant for diffuse large B Cell lymphoma hospitalized for sepsis, acute respiratory failure 2/2 aspiration pneumonia/pneumonitis, complicated by pulmonary edema, dysphagia, hypernatremia, admitted to TCU with debility, here for rehabilitation, strengthening, prior to discharge home with . Germán actively dying. Discharge 04/07/2025 to Inpatient Hospice Facility. Physical Exam Const alert General Appearance: cooperative HEENT normocephalic Eyes PERRL and EOMs intact bilaterally Neck supple, no JVD and no carotid bruits Resp normal respiratory effort, normal air movement and clear to auscultation bilaterally Cardio regular rate and regular rhythm GI normal to inspection, nondistended, normoactive bowel sounds, non-tender and non-distended Extremity normal capillary refill General Extremity: Negative for edema Skin no rashes or lesions noted General Skin Exam: no breakdown Psych affect normal Appearance: appropriate Medical Records Data Medical Nutrition Assessment Dietitian: Malnutrition Criteria Met Start: 04/06/25 12:44 Freq: Status: Active Protocol: Document 04/06/25 12:44 SLA (Rec: 04/06/25 12:44 SLA [id number]) Nutrition Malnutrition Evidence of Yes Malnutrition Exists Malnutrition (severe Chronic ): Evidenced By Suboptimal Energy Intake (Severe),Weight Loss (Severe), Physical Changes (Severe) Intake Problem Inadequate Oral Intake Etiology related to decreased appetite Signs/Symptoms as evidenced by PO meeting <50% of estimated nutrition needs x 1 week Status Inactive Problem Clinical Problem Chronic Disease or Condition Related Malnutrition Etiology related to easily fatigues when eats, difficulty chewing/swallowing and cancer causing inadequate energy intake Signs/Symptoms as evidenced by ~16% unintentional wt loss and po intake meeting <75% of est nutritional needs x 1 month and obvious fat loss/muscle wasting throughout body. Status Active Problem Recommendation Dietitian Continue regular diet per [employer] recommendations for Recommendations/ consistency/texture. Changes Continue 240mL EPHP with meals and add magic cup / fortified foods w/ meals as able Rec consider alternative nutrition support d/t continued poor po intake/wt loss if in accordance w/ res/family wishes - likely to have continued decline in nutritional status without more aggressive nutrition support. Weight / BMI Weight Weight: 54.233 kg Body Mass Index (BMI) 19.3 ABG / Lab / Microbiology Data 04/02/25 06:29 03/31/25 08:52 D/C Instructions DC O2, CPAP, BIPAP Needs Home O2 Discharge instructions: No Additional Instructions: Discharge 04/06/2025 to Inpatient Hospice Facility. Meaningful Use Info Meaningful Use Meaningful Use Diagnoses (Choose all that apply): None applicable Discharge Plan Admission Admit Date/Time: 03/30/25 14:09 Primary Reason for Your Visit: Debility. Attending Provider: Alber Raines Chi Primary Care Provider: Sacha Hernandez Instructions Additional Instructions / Restrictions: Discharge 04/06/2025 to Inpatient Hospice Facility. Discharge Orders/Prescriptions Prescriptions: Discontinued allopurinol 300 mg tablet 300 mg PO QDAY Qty: 30 0RF ondansetron 8 mg tablet,disintegrating 8 mg PO Q12H PRN (Reason: nausea and vomiting) Qty: 30 0RF furosemide 40 mg Tablet 40 mg PO DAILY Qty: 0 0RF acetaminophen 325 mg Tablet 650 mg PO Q6H PRN PRN (Reason: Pain 1-10 Or Fever >100.7) Qty: 0 0RF prednisone 20 mg Tablet 40 mg PO BREAKFAST Qty: 10 0RF levofloxacin 750 mg Tablet 750 mg PO Q48 Qty: 3 0RF metronidazole 500 mg tablet 500 mg PO TID Qty: 15 0RF potassium chloride 20 mEq tablet,ER particles/crystals 20 meq PO BID Qty: 30 0RF senna 8.6 mg capsule 8.6 mg PO DAILY PRN (Reason: constipation) 5 Days Qty: 5 0RF Referrals / Follow Up: Parrish Miranda MD [Med Staff - Active Staff, Oncology] Sacha Hernandez DO [Primary Care Provider, Family Practice] Disposition Disposition (needs filled in before D/C Order can be placed): Hospice in Medical Facility
--- NOTE | 2025-04-07 16:09 | CHAPLAIN ---
Type of Pastoral Visit ___ Initial Visit _x__ Follow-up Visit ___ On-call Visit ___ General Patient Visit ___ Spiritual Assessment ___ Family Conference ___ Bereavement ___ Rapid Response ___ Code Blue _x__ Other (describe below) Pastoral Care Referral From ___ Patient ___ Family _x__ Nurse ___ Physician _x__ Contracting Engineer ___ Registered Respiratory Technician ___ Other (describe below) Sacrament/Intervention _x__ Active listening ___ Anointing ___ Restorationist ___ Bereavement ___ Communion _x__ Rosemarie exploration ___ ___ Life review _x__ Prayer ___ Reconciliation ___ Sacrament of Sick _x__ Supportive presence ___ Wedding ___ Other (describe below) Pastoral Comments this sourcing internship was notified of patient who is at end-of-life and that hospice is being consulted this very time; pt is alone in the room and he is awake and alert; pt remembers this sourcing internship and states that family decision has been made for enrollment in hospice; pt is asked about his wishes and his feelings on this matter; pt is agreeable to hospice and understands that this he is unable to continue on living in his condition of cancer; pt has limited strength to talk out loud due to respiratory issues; pt expresses thanks for the visit and welcomes prayer; words of assurance of salvation and God's presence is given; went next to see his spouse who is currently meeting with hospice nurse; gave spouse supportive words and presence;
[2025-04-07 17:08] VITALS: BP 115/76; PULSE 110; RESP 18; TEMP 36; O2SAT 93
--- NOTE | 2025-04-07 18:02 | NURSING ---
transport here to transfer pt to hospice [facility] at this time, at side. pt refused morphine, aware to ask for it at [facility]. pt verbalized understanding.
--- NOTE | 2025-04-11 10:16 | MDS.RN ---
Information for the MDS was obtained from review of the clinical record, interview of resident, staff, and direct observation of resident?s care.
== END 2025-04-07 18:00 | disposition hospice, inpatient (51) | DRG 178 ==
PROVIDERS: Admitting Provider Family Medicine Geriatric Medicine; PCP Family Medicine; Referring Provider Family Medicine Geriatric Medicine; Visit Provider Family Medicine Geriatric Medicine
DX: J69.0 Pneumonitis due to inhalation of food and vomit (principal); C83.38 Diffuse large B-cell lymphoma, lymph nodes of multiple sites; E44.0 Moderate protein-calorie malnutrition; J81.1 Chronic pulmonary edema; Z68.1 Body mass index [BMI] 19.9 or less, adult; I48.91 Unspecified atrial fibrillation; E87.6 Hypokalemia; H35.30 Unspecified macular degeneration; M10.9 Gout, unspecified; F41.9 Anxiety disorder, unspecified; Z79.899 Other long term (current) drug therapy; R13.10 Dysphagia, unspecified; T45.1X5D Adverse effect of antineoplastic and immunosuppressive drugs, subsequent encounter; G47.00 Insomnia, unspecified
CPT/HCPCS: 36415; 72220; 80048; 85025; 92507; 92526; 92610; 93005; 97110; 97162; 97166; 97530; 97535; A4216

== ENCOUNTER 2025-04-01 10:26 | Emergency (ER) | payer MEDICARE, SELFPAY ==
[2025-04-01 10:27] VITALS: BP 120/73; PULSE 117; RESP 18; TEMP 36.4; O2SAT 99; BMI 19.9
--- NOTE | 2025-04-01 10:33 | CT_ITS ---
PROCEDURE: CT/Spine Cervical without Contras
--- NOTE | 2025-04-01 10:33 | CT_ITS ---
PROCEDURE: CT/Brain/Head without Contrast
--- NOTE | 2025-04-01 11:14 | RAD_ITS ---
PROCEDURE: RAD/Chest 1 View (Portable)
[2025-04-01] MEDS: 0.9% Normal Saline (1000mL) 1,000 ML 999 ML IV ×2 (11:26→14:42)
[2025-04-01 12:10] LABS: Hematocrit 32.0 % (40-54); Hemoglobin 10.3 g/dL (13.0-16.5); Immature Granulocytes Count 3.390 X10^3/uL (0.0-0.0); Mean Corp Hgb Conc 32.2 g/dL (32-36); Mean Corpuscular Volume 93.8 fL (80-94); Mean Platelet Vol. 11.3 fl (6.2-12.0); NRBC Flagged by Analyzer 0.2 % (0-5); POSITIVE COUNT YES; POSITIVE DIFFERENTIAL YES; POSITIVE MORPHOLOGY YES; Platelet Count 446 K/mm3 (150-450); RBC Distribution Width CV 16.0 % (11.6-14.6); RBC Distribution Width SD 54.7 fl (35.1-43.9); Red Blood Count 3.41 M/mm3 (4.6-6.2); White Blood Count 31.7 K/mm3 (4.4-11.0)
--- NOTE | 2025-04-01 12:20 | CM.ED ---
Social Work Warm handoff given by TCU SW. TCU SW took patients to ED room and explained to reason for ED visit. SW checked on while patient was in imaging. denied needs at this time, was notified of SW availability if needed. Rosey Cook, TANNING SOLUTION MAKER, [place]
[2025-04-01 12:22] VITALS: BP 103/75; PULSE 118; RESP 21; O2SAT 100
[2025-04-01 12:33] LABS: Anion Gap 14 (5-15); BUN 57 mg/dL (4-19); BUN/Creat Ratio 29.9 RATIO (10-20); Calcium,Total 10.9 mg/dL (7.6-11.0); Carbon Dioxide 24.1 mmol/L (21.0-32.0); Chloride 105 mmol/L (98-108); Estimated Creatinine Clearance 24.20 ml/min (50-250); Glucose 140 mg/dL (70-99); Magnesium 2.5 mg/dL (1.5-2.2); Potassium 4.3 mmol/L (3.3-5.1)
[2025-04-01 12:55] LABS: Neutrophil-Segmented 82 % (47-70); Total Cells Counted 100 (MANUAL DIFF)
[2025-04-01 14:00] VITALS: PULSE 111; RESP 26; O2SAT 97
--- NOTE | 2025-04-01 14:30 | CT_ITS ---
PROCEDURE: CT/Chest without Contrast
[2025-04-01 15:58] VITALS: BP 133/79; PULSE 105; RESP 16; TEMP 36.3; O2SAT 97
--- NOTE | 2025-04-01 15:59 | EX.ED.DYSGE1 ---
HPI History of Present Illness Chief Complaint: Fall Narrative Narrative: Pt is a pleasant 79-year-old male who is presenting to the ER today after a syncopal episode in the TCU. Patient was going to the bathroom, patient does not remember if he tripped and fell or passed out, but he hit the top right side of his head against a hard object. Patient is giving Lovenox injections to help prevent DVT. Patient has B-cell lymphoma. Patient had a biopsy several weeks ago to the left lung. Patient is currently in the TCU to continue to get stronger with rehab. Patient was just recently admitted to the hospital as well. Patient had physical therapy this morning at 915. Patient has been doing a lot recently with therapy, treatments, biopsies, is at bedside, thinks that patient is wore out. Patient has no complaints. He has no headache or neck pain. No scalp hematoma. No chest pain or shortness of breath. Patient's mouth is very dry. Patient cannot drink liquids, he has to have everything thickened. Patient's vocal cords are weaker, he has been having some softer speech for the past several weeks that is being evaluated as well. He has no abdominal pain nausea or vomiting. No recent bowel or bladder changes. No acute complaints. REVIEW OF SYSTEMS: Unless otherwise stated in this report the patient's positive and negative responses for review of systems for constitutional, eyes, ENT, cardiovascular, respiratory, gastrointestinal, neurological, , musculoskeletal, and integument systems and related systems to the presenting problem are either stated in the history of present illness or were not pertinent or were negative for the symptoms and/or complaints related to the presenting medical problem. Nurse's notes and vital signs reviewed. The patient is not hypoxic. Vital signs reviewed and patient is not hypoxic. Cachectic in appearance. General: The patient appears well and in no apparent distress. Patient is resting comfortably on cart. Not toxic, lethargic, or listless. Skin: Warm, dry, no pallor noted. There is no rash noted. Minimal pinkish discoloration to the right parietal area, no scalp hematoma. Tenting of skin. Head: Normocephalic, atraumatic; patient has no midline or paracervical tenderness to palpation. Forage of motion of cervical spine no difficulty. Eye: Normal conjunctiva, no drainage, EOMI. PERRL. Ears, Nose, Mouth, and Throat: oral mucosa is extremely dry, tongue very dry, dried mucus on patient's lips. Mouth care was done by myself. Using Toothette's, I cleaned the dry mucous off his lips, and I wet his tongue several times and patient was talking slightly better and felt much better once his tongue and intraoral mucous membranes were moist. He did not aspirate during this procedure. The Toothette's were then given to his .. Nares patent. Mouth without vesicles. Cardiovascular: Regular Rate and Rhythm, no murmurs, gallops, or rubs Respiratory: Patient is in no distress, no accessory muscle use, lungs are clear to auscultation, no wheezing, rales or rhonchi Back: non-tender, no CVA tenderness bilaterally to percussion. NO CTLS midline or paraspinal tenderness to palpation. GI: Soft, no tenderness to palpation, no masses appreciated. No rebound, guarding, or rigidity noted. Musculoskeletal: The patient has full range of motion of all extremities and joints with no difficulty. Patient has no motor, no sensory deficits. Neurological: A&O x4, normal speech, no focal neurological deficits. Patient has overall generalized weakness appearance. Psychiatric: Cooperative [facility] Medical History Malignant neoplasm of thorax Vasovagal syncope Rheumatic fever Hypercalcemia Dyspnea Recurrent left pleural effusion Acute kidney injury Pleural effusion Lung mass Macular degeneration Home Medications ?Medication ?Instructions ?Recorded ?Last Taken ?Type sennosides 8.6 mg capsule (senna) 8.6 mg PO DAILY PRN constipation 5 02/14/25 Unknown Rx days #5 caps allopurinol 300 mg tablet 300 mg PO QDAY Gout #30 tabs 03/02/25 03/22/25 Rx ondansetron 8 mg disintegrating 8 mg PO Q12H PRN nausea and 03/10/25 Unknown Rx tablet vomiting #30 tabs acetaminophen 325 mg tablet 650 mg (2 x 325 mg) PO Q6H PRN PRN 03/30/25 03/22/25 Rx Pain 1-10 Or Fever >100.7 #0 tabs furosemide 40 mg tablet 40 mg PO DAILY Swelling #0 tabs 03/30/25 03/30/25 08:10 Rx levofloxacin 750 mg tablet 750 mg PO Q48 Antibiotic #3 tabs 03/30/25 03/30/25 08:10 Rx metronidazole 500 mg tablet 500 mg PO TID Antibiotic #15 tabs 03/30/25 Unknown Rx potassium chloride 20 mEq 20 meq PO BID Supplement #30 tabs 03/30/25 Unknown Rx tablet,extended release(part/cryst) prednisone 20 mg tablet 40 mg (2 x 20 mg) PO BREAKFAST 03/30/25 03/30/25 08:10 Rx Inflammation #10 tabs Allergy/AdvReac Type Severity Reaction Status Date / Time No Known Allergies Allergy Verified 04/01/25 10:27 Family History Brother Cancer throat Epilepsy Glaucoma Father Glaucoma Other Throat cancer Surgical History History of lung biopsy History of thoracentesis Social History (Updated 03/30/25 @ 20:[address] 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, [employer] pets and animals: No history of recent travel: No Smoking Status: Never smoker alcohol intake: never substance use type: does not use caffeine: No what type of physical activity do you participate in: walking seatbelt use: always EXAM Physical Exam Const Vital Signs: 04/01/25 10:27 04/01/25 10:31 04/01/25 11:14 Temperature 97.6 F L Temperature Source Oral Pulse Rate 117 H Respiratory Rate 18 Respiratory Effort Normal Non-Labored Respiratory Depth Normal Respiratory Pattern Normal Blood Pressure 120/73 Blood Pressure Mean 88 Pulse Ox 99 Oxygen Delivery Method Nasal Cannula Room Air Oxygen Flow Rate (L/min) 3 04/01/25 12:22 04/01/25 14:00 04/01/25 15:58 Temperature 97.4 F L Temperature Source Pulse Rate 118 H 111 H 105 H Respiratory Rate 21 H 26 H 16 Respiratory Effort Respiratory Depth Respiratory Pattern Blood Pressure 103/75 133/79 H Blood Pressure Mean 84 97 Pulse Ox 100 97 97 Oxygen Delivery Method Room Air Nasal Cannula Oxygen Flow Rate (L/min) MDM MDM MDM Narrative Medical decision making narrative: Patient seen and examined: CT of the head, cervical spine. IV, IV fluids, lab work Differential diagnosis includes but is not limited to: Intracranial hemorrhage, closed head injury, petechial hemorrhage, dehydration, electrolyte abnormality, ACS, cervical fracture, rib fracture, failure to thrive, malnutrition Relevant laboratory interpretation: Patient has stage IV kidney disease. Patient BUN and creatinine was 57 and 1.9. Magnesium 2.5. Patient's white blood cell count is 31, slightly elevated from yesterday at 24. Patient is on steroids. Patient did have a Neupogen shot several weeks ago. Radiological studies: CT of the brain showed no acute abnormality. CT of cervical spine showed pneumomediastinum, cervical emphysema worse on the right side, multilevel disc space narrowing, questionable lytic lesion in the right side of the body of T2 vertebrae. Reevaluation: Patient has no crepitus to the right or left side of his neck and soft tissues. Patient has no crepitus to his upper chest wall bilateral. CT of the chest will be ordered. CT of the chest shows no signs of mediastinum, no rib fracture, no pneumothorax, no acute abnormality. I did CT the chest with no contrast secondary to kidney function. Patient wants to go back to the TCU. wants patient to go back to the TCU. I did speak to Dr. Alicia who manages the TCU and he agrees with transferring patient back to TCU. We have discussed the elevation of white blood cell count from 24-31. Patient did have a Neupogen shot and he is on current steroids. We have discussed the readings of the CT of the cervical spine compared to CT of the chest. He is aware that I gave patient 1.5 L of fluid. He will continue to monitor patient in TCU. Patient and are very happy to going back to the TCU. Social barriers to healthcare: There are no food insecurities, there is no issue with transportation, there are no insurance barriers Disposition: Back to transitional care unit. Patient is received 1.5 L of IV fluid. Mouth care was done several times at bedside by myself. EKG interpretation. Sinus tachycardia at 124. Normal axis deviation. No acute ST elevation, no acute ectopy. QTc of 436. Tachycardic rhythm. EKG was interpreted by myself Chest x-ray showed no acute cardial pulm disease, no rib fracture, no pneumothorax. Chest x-ray was interpreted by myself Lab Data Labs: Laboratory Results - last 24 hr 04/01/25 11:53 WBC 31.7 H* RBC 3.41 L Hgb 10.3 L Hct 32.0 L MCV 93.8 MCH 30.2 MCHC 32.2 RDW Std Deviation 54.7 H RDW Coeff of Martha 16.0 H Plt Count 446 MPV 11.3 Immature Gran % (Auto) 10.700 H Neut % (Auto) 83.2 H Lymph % (Auto) 0.9 L [place] % (Auto) 4.6 Eos % (Auto) 0.5 Baso % (Auto) 0.1 Absolute Neuts (auto) 25.9 H Absolute Lymphs (auto) 0.63 L Total Counted 100 Neutrophils % (Manual) 82 H Lymphocytes % (Manual) 2 L Monocytes % (Manual) 6 Metamyelocytes % 5 H Myelocytes % 5 H Nucleated RBC % 0.2 Diff Path Review Reviewed Platelet Estimate ADEQUATE Sodium 143 Potassium 4.3 Chloride 105 Carbon Dioxide 24.1 Anion Gap 14 BUN 57 H Creatinine 1.90 H Estim Creat Clear Calc 24.20 L Est GFR (MDRD) Non-Af 35 L BUN/Creatinine Ratio 29.9 H Glucose 140 H Calcium 10.9 Magnesium 2.5 H Radiography Diagnostic Testing: Clinical Impression(s) from Imaging Studies Brain CT 04/01/25 10:33 IMPRESSION: CHRONIC CHANGES. NO ACUTE FINDINGS. Reading Location: [facility] Cervical Spine CT 04/01/25 10:33 IMPRESSION: Pneumomediastinum. Cervical emphysema worse on the right side. Multilevel disc space narrowing. Questionable lytic lesion in the right side of the body of the T2 vertebrae. Reading Location: [facility] Chest X-Ray 04/01/25 11:14 IMPRESSION: Although markedly improved from the study of 03/23/2025, patchy areas of right lung airspace disease and perhaps residual left basilar airspace disease are seen. Differential diagnosis suggests atypical pulmonary edema appearance, less likely pneumonitis. No pleural effusion is clearly identified. No pneumothorax is seen. The cardiomediastinal silhouette is stable, without evidence of cardiomegaly. No interval osseous change is noted. Reading Location: [facility] 04/01/25 14:30 IMPRESSION: Coronary artery calcification (CAC) is is present Interval improvement of the diffuse bilateral airspace disease with residual changes persist in the right hemithorax. Persistent soft tissue density in the anterior mediastinum extending into the region of the aorto pulmonary window suggestive of possible adenopathy. Pericardial thickening. Reading Location: [id number] Discharge Plan Triage Chief Complaint: Fall ED Provider: Laci Navarro Dx/Rx/DC Orders Clinical Impression: CHI (closed head injury), Syncope, Dehydration Instructions: Dehydration, ED Head Injury (Adult), ED Fainting, Uncertain Cause Prescriptions: No Action allopurinol 300 mg tablet 300 mg PO QDAY Qty: 30 0RF ondansetron 8 mg tablet,disintegrating 8 mg PO Q12H PRN (Reason: nausea and vomiting) Qty: 30 0RF furosemide 40 mg Tablet 40 mg PO DAILY Qty: 0 0RF acetaminophen 325 mg Tablet 650 mg PO Q6H PRN PRN (Reason: Pain 1-10 Or Fever >100.7) Qty: 0 0RF prednisone 20 mg Tablet 40 mg PO BREAKFAST Qty: 10 0RF levofloxacin 750 mg Tablet 750 mg PO Q48 Qty: 3 0RF metronidazole 500 mg tablet 500 mg PO TID Qty: 15 0RF potassium chloride 20 mEq tablet,ER particles/crystals 20 meq PO BID Qty: 30 0RF senna 8.6 mg capsule 8.6 mg PO DAILY PRN (Reason: constipation) 5 Days Qty: 5 0RF Primary Care Provider: Sacha Hernandez Referrals: Sacha Hernandez DO [Primary Care Provider, Family Practice] Activity Restrictions/Additional Instructions: Patient may go back to the transitional care unit. I have spoken to Dr. Alicia, and he agrees with you going back to the TCU. CT chest shows no acute findings of rib fracture, lung collapse, or air in your thoracic cavity, pneumomediastinum Print Language: Ug[place]an Disposition Disposition: Retirement Facility Discharge Location: Other SNF not listed Discharge Date/Time: 04/01/25 16:01
== END 2025-04-01 16:01 ==
PROVIDERS: Emergency Provider Emergency Medicine; PCP Family Medicine; Visit Provider Emergency Medicine
DX: S09.90XA Unspecified injury of head, initial encounter (principal); C85.10 Unspecified B-cell lymphoma, unspecified site; R55 Syncope and collapse; E86.0 Dehydration; Z79.01 Long term (current) use of anticoagulants; W01.10XA Fall on same level from slipping, tripping and stumbling with subsequent striking against unspecified object, initial encounter; Y92.238 Other place in hospital as the place of occurrence of the external cause
CPT/HCPCS: 36415; 70450; 71045; 71250; 72125; 80048; 83735; 85025; 93005; 96360; 96361; 99283; A4216